=== PATIENT | male | born 1960 | race Caucasian/White ===

== ENCOUNTER → 2016-10-08 | Outpatient (CLI) | payer MEDICARE, OTHER ==
--- NOTE | 2016-10-08 16:02 | XR ---
EXAMINATION TYPE: XR chest 2V DATE OF EXAM: 10/08/2016 3:57 PM COMPARISON: 08/01/2016 INDICATION: Presurgical clearance TECHNIQUE: Frontal and lateral views of the chest are obtained. FINDINGS: The heart size is normal. The pulmonary vasculature is normal. The lungs are clear. Sternotomy wires are present from previous CABG anterior cervical fusion is dionisio dent. IMPRESSION: 1. No acute pulmonary process.
[2016-10-08 16:08] LABS: Basophils # (A) 0.1 k/uL (0-0.2); Basophils % (A) 1 %; CH 29.4; Eosinophils # (A) 0.3 k/uL (0-0.7); Eosinophils % (A) 4 %; HCT 40.8 % (39.0-53.0); HDW 2.63; HGB 12.6 gm/dL (13.0-17.5); Hypochromasia Slight; Luc # (Auto) 0.23; Luc % (Auto) 3; Lymphocytes # (A) 1.6 k/uL (1.0-4.8); Lymphocytes % (A) 22 %; MCH 29.3 pg (25.0-35.0); MCHC 30.8 g/dL (31.0-37.0); MCV 95.1 fL (80.0-100.0); Mean Platelet Volume 7.4; Monocytes # (A) 0.4 k/uL (0-1.0); Monocytes % (A) 5 %; Neutrophils # (A) 4.6 k/uL (1.3-7.7); Neutrophils % (A) 65 %; RBC 4.29 m/uL (4.30-5.90); RDW 15.8 % (11.5-15.5); WBC 7.1 k/uL (3.8-10.6); WBC (Perox) 7.13
[2016-10-08 16:28] LABS: Prothrombin Time 10.4 sec (9.0-12.0)
[2016-10-08 16:29] LABS: Anion Gap 11 mmol/L; Blood Urea Nitrogen 21 mg/dL (9-20); Calcium 9.1 mg/dL (8.4-10.2); Carbon Dioxide 29 mmol/L (22-30); Chloride 105 mmol/L (98-107); Glucose 111 mg/dL (74-99); Non-African American GFR(MDRD) >60 (>60 ml/min/1.73 sqM); Potassium 4.8 mmol/L (3.5-5.1); Sodium 145 mmol/L (137-145)
[2016-10-08 17:44] LABS: Appearance,Urine Clear (Clear); Bacteria,Urine Rare /hpf; Bilirubin,Urine Negative (Negative); Glucose,Urine (UA) Negative (Negative); Ketones,Urine Negative (Negative); Leukocyte Esterase,Urine Negative (Negative); Nitrite,Urine Negative (Negative); PH, Urine 5.5 (5.0-8.0); Particle Count 493; Protein,Urine Trace (Negative); RBC,Urine 2 /hpf (0-5); Specific Gravity,Urine 1.015 (1.001-1.035); Squamous Epithelial Cell,Urine <1 /hpf (0-4); UA Billing (MACRO vs. MICRO) MICRO; Urobilinogen,Urine <2.0 mg/dL (<2.0); WBC,Urine 1 /hpf (0-5)
== END | disposition home or self-care (01) ==
LOC: LABPAT 15:20
PROVIDERS: ATTEND Orthopaedic Surgery Orthopaedic Surgery of the Spine
DX: Z01.818 Encounter for other preprocedural examination (principal); Z01.812 Encounter for preprocedural laboratory examination
CPT/HCPCS: 71020; 80048; 81001; 85025; 85610; 85730; 87070

== ENCOUNTER 2016-10-30 09:57 | Inpatient (IN) | payer MEDICARE, OTHER ==
[2016-10-30] MEDS ORDERED: IPRATROPIUM-ALBUTEROL 3 ML NEB INHALATION STA (10:48)
[2016-10-30] MEDS ORDERED: ACETAMINOPHEN IV (For NPO) 1,000 MG in EMPTY BAG 1 BAG IVPB STA (10:49)
[2016-10-30] MEDS ORDERED: SODIUM CHLORIDE 0.9% 1,000 ML IV STA (10:51)
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
--- NOTE | 2016-10-30 11:10 | XR ---
EXAMINATION TYPE: XR chest 2V DATE OF EXAM: 10/30/2016 11:04 AM COMPARISON: Chest x-ray October 08, 2016. HISTORY: Fever and cough. TECHNIQUE: Frontal and lateral views of the chest are obtained. FINDINGS: There is chronic emphysematous change. Sternal wires and mediastinal clips are present. Th ere is no new suspicious focal air space opacity, pleural effusion, or pneumothorax seen. The cardia c silhouette size is felt upper limits of normal. Anterior fusion plate lower cervical spine is seen. Cholecystectomy clips are noted on lateral view. IMPRESSION: Chronic changes without acute pulmonary process. No significant change from prior.
[2016-10-30 12:38] LABS: Anisocytosis Slight; Appearance,Urine Clear (Clear); Basophils % (A) 1 %; Bilirubin,Urine Negative (Negative); CH 29.7; CHCM 31.3; Eosinophils # (A) 0.1 k/uL (0-0.7); Eosinophils % (A) 2 %; Glucose,Urine (UA) Negative (Negative); HCT 37.6 % (39.0-53.0); HGB 11.9 gm/dL (13.0-17.5); Hypochromasia Slight; Ketones,Urine Negative (Negative); Leukocyte Esterase,Urine Negative (Negative); Luc # (Auto) 0.13; Luc % (Auto) 4; Lymphocytes # (A) 0.6 k/uL (1.0-4.8); Lymphocytes % (A) 16 %; MCH 30.1 pg (25.0-35.0); MCHC 31.6 g/dL (31.0-37.0); MCV 95.3 fL (80.0-100.0); Mean Platelet Volume 7.1; Monocytes # (A) 0.3 k/uL (0-1.0); Monocytes % (A) 8 %; Neutrophils # (A) 2.5 k/uL (1.3-7.7); Neutrophils % (A) 70 %; Nitrite,Urine Negative (Negative); PH, Urine 5.5 (5.0-8.0); Protein,Urine Trace (Negative); RBC 3.94 m/uL (4.30-5.90); RDW 16.6 % (11.5-15.5); Specific Gravity,Urine 1.017 (1.001-1.035); UA Billing (MACRO vs. MICRO) CHEM; Urobilinogen,Urine <2.0 mg/dL (<2.0); WBC 3.6 k/uL (3.8-10.6); WBC (Perox) 3.62
[2016-10-30 12:51] LABS: ALT 71 U/L (21-72); AST 71 U/L (17-59); Alkaline Phosphatase 73 U/L (38-126); Anion Gap 10 mmol/L; Blood Urea Nitrogen 19 mg/dL (9-20); Calcium 8.7 mg/dL (8.4-10.2); Carbon Dioxide 25 mmol/L (22-30); Chloride 107 mmol/L (98-107); Glucose 104 mg/dL (74-99); Non-African American GFR(MDRD) >60 (>60 ml/min/1.73 sqM); Potassium 4.8 mmol/L (3.5-5.1); Sodium 142 mmol/L (137-145); Total Bilirubin 0.7 mg/dL (0.2-1.3); Total Protein 6.1 g/dL (6.3-8.2)
[2016-10-30 13:00] LABS: Creatine Kinase 428 U/L (55-170)
[2016-10-30 13:13] LABS: Troponin I <0.012 ng/mL (0.000-0.034)
[2016-10-30 13:20] LABS: Creatine Kinase MB 3.4 ng/mL (0.0-2.4)
[2016-10-30] MEDS ORDERED: IBUPROFEN IV 800 MG in SODIUM CHLORIDE 0.9% 250 ML IV ONE (13:28)
[2016-10-30] MEDS ORDERED: NALOXONE 0.4 MG/ML 1 ML VIAL IV PRN (15:05)
[2016-10-30] MEDS: SODIUM CHLORIDE 0.9% 1,000 ML IV SCH (17:54)
[2016-10-30] MEDS ORDERED: FUROSEMIDE 20 MG TAB PO PRN (18:09)
[2016-10-30] MEDS: POTASSIUM CHLORIDE ORAL LIQUID 40 MEQ/30 ML CUP PO SCH (18:53)
[2016-10-30] MEDS: HYDROcodone/APAP 10-325MG 1 EACH TAB PO PRN ×2 (18:53→22:08)
[2016-10-30] MEDS: LOSARTAN 50 MG TAB PO SCH (18:54)
[2016-10-30] MEDS: GABAPENTIN 400 MG CAP PO SCH ×2 (18:54→21:57)
[2016-10-30] MEDS: FERROUS SULFATE 325 MG TAB PO SCH (18:54)
[2016-10-30] MEDS: PANTOPRAZOLE 40 MG TABLET PO SCH (18:54)
[2016-10-30 19:49] LABS: Hemoglobin A1C 6.7 % (4.2-6.1)
[2016-10-30 21:08] LABS: Glucose,Whole Blood 135 mg/dL (75-99)
[2016-10-30] MEDS: LEVOTHYROXINE 50 MCG TAB PO SCH (21:57)
[2016-10-30] MEDS: ATORVASTATIN 40 MG TAB PO SCH (21:57)
[2016-10-30] MEDS: amLODIPine 5 MG TAB PO SCH (21:57)
[2016-10-30] MEDS: ASPIRIN 325 MG TAB PO SCH (21:57)
[2016-10-30] MEDS: metFORMIN 500 MG TAB PO SCH (21:57)
[2016-10-30] MEDS: INSULIN LISPRO (humaLOG) 300 UNIT/3 ML VIAL SQ SCH (22:05)
[2016-10-31] MEDS: SODIUM CHLORIDE 0.9% 1,000 ML IV SCH ×3 (01:02→22:04)
[2016-10-31] MEDS: HYDROcodone/APAP 10-325MG 1 EACH TAB PO PRN ×4 (05:33→22:04)
[2016-10-31] MEDS: IBUPROFEN 400 MG TAB PO PRN ×2 (05:33→17:46)
[2016-10-31 07:39] LABS: Glucose,Whole Blood 98 mg/dL (75-99)
[2016-10-31] MEDS: INSULIN LISPRO (humaLOG) 300 UNIT/3 ML VIAL SQ SCH ×4 (07:52→22:04)
[2016-10-31] MEDS: PANTOPRAZOLE 40 MG TABLET PO SCH ×2 (08:00→17:47)
[2016-10-31 08:51] LABS: ALT 84 U/L (21-72); AST 109 U/L (17-59); Alkaline Phosphatase 68 U/L (38-126); Anion Gap 11 mmol/L; Blood Urea Nitrogen 20 mg/dL (9-20); Calcium 8.4 mg/dL (8.4-10.2); Carbon Dioxide 22 mmol/L (22-30); Chloride 109 mmol/L (98-107); Glucose 95 mg/dL (74-99); Non-African American GFR(MDRD) >60 (>60 ml/min/1.73 sqM); Potassium 4.7 mmol/L (3.5-5.1); Sodium 142 mmol/L (137-145); Total Bilirubin 0.9 mg/dL (0.2-1.3); Total Protein 5.5 g/dL (6.3-8.2)
[2016-10-31 08:58] LABS: Anisocytosis Slight; CH 29.5; HCT 37.1 % (39.0-53.0); HDW 2.79; HGB 11.5 gm/dL (13.0-17.5); Hypochromasia Moderate; MCH 29.6 pg (25.0-35.0); MCV 95.4 fL (80.0-100.0); Mean Platelet Volume 7.3; RBC 3.88 m/uL (4.30-5.90); RDW 16.4 % (11.5-15.5); WBC 3.1 k/uL (3.8-10.6); WBC (Perox) 3.34
--- NOTE | 2016-10-31 09:04 | XR ---
EXAMINATION TYPE: XR chest 2V DATE OF EXAM: 10/31/2016 8:53 AM COMPARISON: Chest x-ray from yesterday. HISTORY: Cough and weakness, possible pneumonia. TECHNIQUE: Frontal and lateral views of the chest are obtained. FINDINGS: Sternal wires and mediastinal clips are redemonstrated. There is chronic parenchymal amador ge without suspicious new focal airspace opacity, pleural effusion, or pneumothorax seen bilaterally. Cardiac silhouette size is upper limits of normal on current study. Cholecystectomy clips are noted on lateral view. Anterior fusion plate lower cervical spine is redemonstrated. IMPRESSION: Chronic changes without suspicious acute infiltrate. No significant change from prior.
[2016-10-31] MEDS: POTASSIUM CHLORIDE ORAL LIQUID 40 MEQ/30 ML CUP PO SCH (09:53)
[2016-10-31] MEDS: ASPIRIN 325 MG TAB PO SCH (09:53)
[2016-10-31] MEDS: GABAPENTIN 400 MG CAP PO SCH ×4 (09:55→21:55)
[2016-10-31] MEDS: metFORMIN 500 MG TAB PO SCH ×2 (09:56→21:55)
[2016-10-31] MEDS: ALLOPURINOL 300 MG TAB PO SCH (09:56)
[2016-10-31] MEDS: LOSARTAN 50 MG TAB PO SCH ×2 (09:57→09:58)
[2016-10-31] MEDS ORDERED: AZITHROMYCIN 500 MG in SODIUM CHLORIDE 0.9% 250 ML IVPB STA (10:48)
[2016-10-31] MEDS ORDERED: PNEUMONIA PROTOCOL UTILIZED 1 EACH MISC PO PRN (10:48)
--- NOTE | 2016-10-31 11:01 | HP ---
DATE OF ADMISSION: CHIEF COMPLAINT: "Flu-like symptoms". PRESENT ILLNESS: This is a 56-year-old white male with primary complaint of fever. He said it was as high as 102 at home taken by his with thermometer. Mild cough for the last couple of days with myalgias, weakness. He said it was so difficult he felt like he could hardly get out of bed. Minimal productive cough without color and progressive weakness. Patient's allergies are to intolerance to PERCOCET. Medications include: 1. Zyloprim 300 daily. 2. Aspirin ( ) daily. 3. Levothroid 0.5 daily. 4. Prilosec 20 b.i.d. 5. Lasix 20 daily. 6. Gabapentin 800 four times a day. 7. Norvasc 5 mg a day. 8. [place] 10/325 one every 4 hours. 9. ( ) 20. 10. Glipizide 2.5 a.c. breakfast and supper. 11. Fentanyl 25 patch. 12. Losartan 100. 13. Ferrous sulfate. 14. Potassium. He has a long-standing history of type 2 diabetes, previous coronary artery disease with bypass graft in 2006, GERD, hyperlipidemia, hypertension, a myocardial infarction in 2005 with stent placement, severe osteoarthritis with ankylosing spondylitis, peripheral neuropathy, degenerative disc disease, previous pneumonia, has had pancreatitis in the past, pneumonia with a previous pneumothorax with effusion treated with a chest tube, history of MRSA infection treated with IV antibiotic on ( ). Past surgeries include bowel resection, carpal tunnel surgery, three-vessel bypass surgery, thumb surgery, I&D of abscesses, bilateral inguinal surgery, skin cancer removal from the back, circumcision, undescended testicle surgery, multiple cardiac stent surgeries. SOCIAL HISTORY: He is a former smoker, greater than 20 years. As a young adult, he used marijuana, cocaine to abuse. Does not drink alcohol. He does live with his . He is disabled. FAMILY HISTORY: Cancer, GERD ( ) hypertension, osteoarthritis. Father had cancer and type 1 diabetes mellitus. There is possibly pulmonary fibrosis. Uncle with brain aneurysm and lung cancer. REVIEW OF SYSTEMS: CARDIOPULMONARY: Cough with minimal shortness of breath. There is no chest pain, no orthopnea, no paroxysmal nocturnal dyspnea. GI: No hematemesis, melena, hematochezia. : Basically negative. NEUROMUSCULAR: Just the weakness in the arms. Decreased range of motion he says in his neck and his back. He is awaiting to have spinal surgery. INTEGUMENTARY: He has had a long-standing history of very, very dry skin and has had a history of MRSA in the past on superficial infection on his arm and hand. NEUROMUSCULAR: Just severe arthritis hands, legs, most joints in his body, cervical, dorsal spine and also lumbar spine. PHYSICAL EXAMINATION: He is an alert white male with temperature of 98.8, heart rates in the 80s, respiratory rate 18, and blood pressure is 153/76, O2 sat was 82 on room air. EYES: Pupils are equal, round, react to light and accommodation. ENT: Showed tympanic membranes and pharynx to be negative. Neck is supple with midline trachea. CHEST: Essentially clear to auscultation. HEART: Sinus rhythm. Chest does have a large incision from bypass. ABDOMEN: Soft has multiple scars from previous one from a previous bowel resection. 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 He has got very rough appearing skin bilaterally with arthritis throughout the hands and wrists. Decreased range of motion. Multiple scars in the lower extremities and +1 edema in the lower legs. Decreased range of motion in his knees and arms. Decreased range of motion of spine. Decreased range of motion cervical and lumbar spine. LAB WORK: WBC was 3.6, hemoglobin is 11.9. His platelet count is ( ). Sodium 142, potassium 4.8, chloride 107. Creatinine is 0.83, BUN is 19. He had a slightly elevated AST at 71, but normal alkaline phosphatase and ALT. Urinalysis was basically negative. Influenza A and B not detected. Chest x-ray showing no acute process. ASSESSMENT: 1. 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 2. Long-standing history of obviously type 2 diabetes. 3. Hypertension. 4. Previous coronary artery disease. 5. Hyperlipidemia. 6. Previous myocardial infarction. 7. Severe peripheral neuropathy. 8. Previous history of pancreatitis. 9. Gout. 10. Coronary artery disease. 11. Some previous end-diastolic heart failure. 12. Hyperlipidemia. 13. Previous pneumonia. 14. Degenerative disc disease of lumbar spine, dorsal spine and cervical spine. PLAN: We did cultures. IV fluids with supportive care. We are watching him accordingly. Please refer to my orders. Prognosis is guarded.
[2016-10-31] MEDS: FERROUS SULFATE 325 MG TAB PO SCH (11:30)
[2016-10-31 11:46] VITALS: BMI 30.7
[2016-10-31 11:48] LABS: Glucose,Whole Blood 92 mg/dL (75-99)
[2016-10-31 12:03] LABS: Add Differential Manual Differential
[2016-10-31 12:10] LABS: Band Neutrophils % 4.5 %; Manual Review Performed; Nucleated Red Blood Cells 0 /100 WBC (0-0); Total Cells Counted 200
--- NOTE | 2016-10-31 12:13 | P.PN ---
Progress Note - Text Patient is evaluated at bedside. Patient complains of productive cough and continued weakness. Patient states that he finished antibiotics for dental abscess last week. Patient continues with elevated temperature of 102 this morning. Denies toothache, difficulty swallowing, dysphagia, increased shortness of breath, chest pain, abdominal pain, dysuria, urgency, or hematuria. Repeat chest x-ray from this morning with chronic changes without suspicious acute infiltrate. WBC decreased to 3.1. Blood pressure 97/57. Upon exam, patient is awake and alert. Lungs sounds with coarse scattered rhonchi. Abdomen nontender and nondistended with positive bowel sounds. Patient will be started on Zithromax and Rocephin per pneumonia protocol for suspected pneumonia, community-acquired. We'll also get a consult for Dr. Hardin from infectious disease service. The above impression and plan have been discussed and directed by Dr. Romero. Jewell ANTHONY acting as scribe for Dr. Romero.
[2016-10-31 17:16] LABS: Glucose,Whole Blood 103 mg/dL (75-99)
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
[2016-10-31 21:21] LABS: Glucose,Whole Blood 65 mg/dL (75-99)
[2016-10-31 21:32] LABS: Glucose,Whole Blood 69 mg/dL (75-99)
[2016-10-31] MEDS: ATORVASTATIN 40 MG TAB PO SCH (21:55)
[2016-10-31] MEDS: LEVOTHYROXINE 50 MCG TAB PO SCH (21:55)
[2016-10-31] MEDS: amLODIPine 5 MG TAB PO SCH (21:55)
[2016-10-31 21:58] LABS: Glucose,Whole Blood 78 mg/dL (75-99)
[2016-11-01 00:24] LABS: Glucose,Whole Blood 118 mg/dL (75-99)
[2016-11-01] MEDS: metFORMIN 500 MG TAB PO SCH ×3 (00:28→21:12)
[2016-11-01] MEDS: IBUPROFEN 400 MG TAB PO PRN ×2 (00:31→15:07)
[2016-11-01] MEDS: SODIUM CHLORIDE 0.9% 1,000 ML IV SCH ×4 (06:35→23:48)
[2016-11-01 07:37] LABS: Glucose,Whole Blood 85 mg/dL (75-99)
[2016-11-01] MEDS: INSULIN LISPRO (humaLOG) 300 UNIT/3 ML VIAL SQ SCH ×4 (08:09→21:11)
[2016-11-01] MEDS: GABAPENTIN 400 MG CAP PO SCH ×4 (08:13→21:11)
[2016-11-01] MEDS: LOSARTAN 50 MG TAB PO SCH (08:13)
[2016-11-01] MEDS: PANTOPRAZOLE 40 MG TABLET PO SCH ×2 (08:13→17:53)
[2016-11-01] MEDS: ALLOPURINOL 300 MG TAB PO SCH (08:13)
[2016-11-01] MEDS: HYDROcodone/APAP 10-325MG 1 EACH TAB PO PRN ×2 (08:14→16:31)
[2016-11-01] MEDS: POTASSIUM CHLORIDE ORAL LIQUID 40 MEQ/30 ML CUP PO SCH (08:15)
[2016-11-01 09:06] LABS: ALT 100 U/L (21-72); AST 168 U/L (17-59); Alkaline Phosphatase 65 U/L (38-126); Anion Gap 9 mmol/L; Blood Urea Nitrogen 20 mg/dL (9-20); Calcium 8.2 mg/dL (8.4-10.2); Carbon Dioxide 21 mmol/L (22-30); Chloride 112 mmol/L (98-107); Glucose 89 mg/dL (74-99); Non-African American GFR(MDRD) >60 (>60 ml/min/1.73 sqM); Sodium 142 mmol/L (137-145); Total Bilirubin 0.7 mg/dL (0.2-1.3); Total Protein 5.6 g/dL (6.3-8.2)
[2016-11-01 11:46] LABS: Glucose,Whole Blood 83 mg/dL (75-99)
--- NOTE | 2016-11-01 12:21 | P.PN ---
Subjective Principal diagnosis: Fever Patient is a 56-year-old white male admitted with fevers and generalized weakness associated with some cough and congestion. This morning, patient continues to complain of feeling weak. When asked a question, patient takes a long time to answer and is very nonspecific in his answers. Patient reports that he ate approximately 50% of his breakfast. Patient denies nausea, vomiting , shortness of breath, or chest pain. Patient states he always has some abdominal pain but it's chronic. Denies constipation or diarrhea. Patient continues with fevers with T-max the last 24 hours 100.7 at 11 PM last night. Urine culture is negative. Preliminary blood cultures after 24 hours negative. Sputum culture pending. Patient continues on Zithromax and ceftriaxone for possible pneumonia. Dr. Hardin from infectious disease services following patient, recommendations noted. Objective - Vital Signs Vital signs: Vital Signs Temp 99.8 F H 11/01/16 07:00 Pulse 81 11/01/16 07:00 Resp 20 11/01/16 07:00 BP 106/63 11/01/16 07:00 Pulse Ox 91 L 11/01/16 07:00 Intake & Output 10/31/16 11/01/16 11/01/16 18:59 06:59 18:59 Intake Total 120 920 Output Total 350 Balance -230 920 Weight 86.183 kg Intake: Oral 120 920 Output: Urine 350 Other: Voiding Method Urinal # Voids 2 # Bowel Movements 1 1 - Exam GENERAL: Pt awake and alert, appears fatigued, in no acute distress. HEAD: Atraumatic, normocephalic. EYES: Pupils equal and round. Sclera anicteric, conjunctiva are normal. ENT:Moist mucous membranes. NECK:Supple without lymphadenopathy or JVD. LUNGS: Breath sounds diminished to auscultation bilaterally. Nonproductive cough. HEART: Heart S1, S2, no S3 or S4. Irregularly irregular rate and rhythm. No murmurs, rubs or gallops. ABDOMEN: Soft, obese, nontender, nondistended, normoactive bowel sounds. No guarding, no rebound. EXTREMITIES: 2+ peripheral pulses. No edema. No calf tenderness. NEUROLOGICAL: Pt oriented x 3. No focal deficits. Strength and sensation grossly intact. PSYCH: Despondent. SKIN: Warm, dry, intact. Normal turgor. No rashes or lesions. - Labs CBC & Chem 7: 10/31/16 08:08 11/01/16 07:51 Labs: Abnormal Lab Results - Last 24 Hours (Table) 10/31/16 10/31/16 10/31/16 Range/Units 08:08 17:14 21:02 WBC 3.1 L (3.8-10.6) k/uL RBC 3.88 L (4.30-5.90) m/uL Hgb 11.5 L (13.0-17.5) gm/dL Hct 37.1 L (39.0-53.0) % RDW 16.4 H (11.5-15.5) % Plt Count 137 L (150-450) k/uL Lymphocytes # (Manual) 0.5 L (1.0-4.8) k/uL Chloride (98-107) mmol/L Carbon Dioxide (22-30) mmol/L POC Glucose (mg/dL) 103 H 65 L (75-99) mg/dL Calcium (8.4-10.2) mg/dL AST (17-59) U/L ALT (21-72) U/L Total Protein (6.3-8.2) g/dL Albumin (3.5-5.0) g/dL 10/31/16 11/01/16 11/01/16 Range/Units 21:22 00:18 07:51 WBC (3.8-10.6) k/uL RBC (4.30-5.90) m/uL Hgb (13.0-17.5) gm/dL Hct (39.0-53.0) % RDW (11.5-15.5) % Plt Count (150-450) k/uL Lymphocytes # (Manual) (1.0-4.8) k/uL Chloride 112 H (98-107) mmol/L Carbon Dioxide 21 L (22-30) mmol/L POC Glucose (mg/dL) 69 L 118 H (75-99) mg/dL Calcium 8.2 L (8.4-10.2) mg/dL AST 168 H (17-59) U/L ALT 100 H (21-72) U/L Total Protein 5.6 L (6.3-8.2) g/dL Albumin 2.6 L (3.5-5.0) g/dL Assessment and Plan Plan: Impression: 1. Sepsis suspect secondary to viral illness. 2. Cough and congestion, present on admission, chest x-ray with chronic changes without suspicious acute infiltrate. 3. Hyperchloremic metabolic acidosis suspect secondary to IV fluids. 4. Elevated AST and ALT, suspect secondary to possible congestion. 5. Coronary artery disease with history of coronary artery bypass grafting in 2006. 6. Chronic diastolic heart failure. 7. Type 2 diabetes mellitus, controlled. 8. GERD. 9. Hyperlipidemia. 10. Hypertension. 11. History of myocardial infarction in 2005 with stent placement. 12. Severe peripheral neuropathy. 13. Severe peripheral neuropathy suspect secondary to diabetes and chronic back pain. 14. Degenerative disc disease of lumbar spine, dorsal spine and cervical spine. scoliosis. 15. History of pneumonia. 16. History of recent pancreatitis with 1.1 cm on pancreatic tail. Amylase and lipase within normal limits. 17. History of gout. Plan: Continue to monitor patient. Continue current medications. Current IV fluids to 75 mL an hour. Continue antibiotics per infectious disease recommendations. Continue supportive treatment and pain management. Continue GI and DVT prophylaxis. Continue to follow cultures. Repeat CBC, CMP in am. The above impression and plan have been discussed and directed by Dr. Romero. Jewell ANTHONY acting as scribe for Dr. Romero.
[2016-11-01 12:51] LABS: Anisocytosis Slight; Aty Lym Flag Moderate; CH 29.1; CHCM 29.7; HCT 36.9 % (39.0-53.0); HDW 2.68; HGB 11.4 gm/dL (13.0-17.5); Hypochromasia Marked; MCH 30.5 pg (25.0-35.0); MCV 98.4 fL (80.0-100.0); Macrocytosis Slight; Mean Platelet Volume 7.5; RBC 3.75 m/uL (4.30-5.90); RDW 16.4 % (11.5-15.5); WBC 2.6 k/uL (3.8-10.6); WBC (Perox) 2.55
[2016-11-01 13:17] LABS: Add Differential Manual Differential
[2016-11-01 13:19] LABS: Manual Review Performed; Nucleated Red Blood Cells 0 /100 WBC (0-0); Total Cells Counted 100
[2016-11-01] MEDS: AZITHROMYCIN 500 MG TAB PO SCH (13:27)
[2016-11-01] MEDS: FERROUS SULFATE 325 MG TAB PO SCH (13:27)
[2016-11-01 17:00] LABS: Glucose,Whole Blood 87 mg/dL (75-99)
[2016-11-01 17:19] LABS: INR 1.3 (<1.1); Prothrombin Time 12.9 sec (9.0-12.0)
[2016-11-01 20:43] LABS: Glucose,Whole Blood 75 mg/dL (75-99)
[2016-11-01] MEDS: ATORVASTATIN 40 MG TAB PO SCH (21:11)
[2016-11-01] MEDS: amLODIPine 5 MG TAB PO SCH (21:11)
[2016-11-01] MEDS: ASPIRIN 325 MG TAB PO SCH (21:11)
[2016-11-01] MEDS: LEVOTHYROXINE 50 MCG TAB PO SCH (21:12)
--- NOTE | 2016-11-01 22:19 | P.PN ---
Subjective Principal diagnosis: Fever and malaise 56-year-old male well-known to the infectious disease service since the emergency center feeling very poorly for the last few days. He developed a fever to 102. Was associated with chills without connor rigors. He was having some cough and chest congestion. He was having a significant body aches and significant malaise. He was brought to the emergency center where flu testing was negative. However he had evidence of relative leukopenia and sepsis. He subsequently was admitted and with sepsis the infectious diseases consultation was requested. 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 He developed a extensive infection that required surgical care. He had a protracted staph aureus bacteremia required several months of antibiotic therapy for improvement. The right wrist area finally improved and he's had a modestly good recovery. He does have significant underlying immunocompromise due to his diabetes mellitus as well as his arthritis and ankylosing spondylitis. Still is having ongoing fever Objective - Vital Signs Vital signs: Vital Signs Temp 103.5 F H 11/01/16 15:00 Pulse 95 11/01/16 15:00 Resp 20 11/01/16 15:00 BP 141/79 11/01/16 15:00 Pulse Ox 92 L 11/01/16 15:00 - Exam 54-year-old male who has complaints complains of generalized fatigue and malaise and body aches HEENT: Anicteric conjunctiva are pink and moist nasal mucosa grossly intact without significant lesions, there is no thrush. Mucosa dry Neck: The neck is supple without significant lymphadenopathy or thyromegaly. Lungs: Good bilateral air entry without significant crackles or wheezes are heard There is no significant bronchial sounds. There is no egophony or dullness. Heart: Irregular with an audible S1 and S2 no S3 soft S4 no murmur click or rub. Abdomen: Positive bowel sounds soft and nontender without palpable masses or organomegaly. There was no guarding or rebound. Extremities: The left upper extremity shows no acute difficulties, IV site is present the right wrist reveals evidence of the prior surgical intervention. The extensive prior wound has healed. No evidence of any erythema or tenderness at that site. There is no epitrochlear or axillary lymphadenopathy. No other lymphadenopathy is noted. Neuro: Patient sleepy but arousable - Labs CBC & Chem 7: 11/01/16 10:18 11/01/16 07:51 Labs: Laboratory Results WBC 2.6 k/uL (3.8-10.6) L 11/01/16 10:18 RBC 3.75 m/uL (4.30-5.90) L 11/01/16 10:18 Hgb 11.4 gm/dL (13.0-17.5) L 11/01/16 10:18 Hct 36.9 % (39.0-53.0) L 11/01/16 10:18 MCV 98.4 fL (80.0-100.0) 11/01/16 10:18 MCH 30.5 pg (25.0-35.0) 11/01/16 10:18 MCHC 31.0 g/dL (31.0-37.0) 11/01/16 10:18 RDW 16.4 % (11.5-15.5) H 11/01/16 10:18 Plt Count 96 k/uL (150-450) L 11/01/16 10:18 Neutrophils % 70 % 10/30/16 11:00 Neutrophils % (Manual) 53.0 % 11/01/16 10:18 Band Neutrophils % 8.0 % 11/01/16 10:18 Lymphocytes % 16 % 10/30/16 11:00 Lymphocytes % (Manual) 27.0 % 11/01/16 10:18 Monocytes % 8 % 10/30/16 11:00 Monocytes % (Manual) 12.0 % 11/01/16 10:18 Eosinophils % 2 % 10/30/16 11:00 Eosinophils % (Manual) 1.0 % 10/31/16 08:08 Basophils % 1 % 10/30/16 11:00 Basophils % (Manual) 0.5 % 10/31/16 08:08 Neutrophils # 2.5 k/uL (1.3-7.7) 10/30/16 11:00 Neutrophils # (Manual) 1.6 k/uL (1.3-7.7) 11/01/16 10:18 Lymphocytes # 0.6 k/uL (1.0-4.8) L 10/30/16 11:00 Lymphocytes # (Manual) 0.7 k/uL (1.0-4.8) L 11/01/16 10:18 Monocytes # 0.3 k/uL (0-1.0) 10/30/16 11:00 Monocytes # (Manual) 0.3 k/uL (0-1.0) 11/01/16 10:18 Eosinophils # 0.1 k/uL (0-0.7) 10/30/16 11:00 Eosinophils # (Manual) 0.0 k/uL (0-0.7) 10/31/16 08:08 Basophils # 0.0 k/uL (0-0.2) 10/30/16 11:00 Basophils # (Manual) 0.0 k/uL (0-0.2) 10/31/16 08:08 Nucleated RBCs 0 /100 WBC (0-0) 11/01/16 10:18 Manual Slide Review Performed 11/01/16 10:18 Hypochromasia Marked 11/01/16 10:18 Poikilocytosis (manual Present 11/01/16 10:18 Anisocytosis Slight 11/01/16 10:18 Macrocytosis Slight 11/01/16 10:18 PT 12.9 sec (9.0-12.0) H 11/01/16 16:51 INR 1.3 (<1.1) 11/01/16 16:51 Sodium 142 mmol/L (137-145) 11/01/16 07:51 Potassium 5.0 mmol/L (3.5-5.1) 11/01/16 07:51 Chloride 112 mmol/L (98-107) H 11/01/16 07:51 Carbon Dioxide 21 mmol/L (22-30) L 11/01/16 07:51 Anion Gap 9 mmol/L 11/01/16 07:51 BUN 20 mg/dL (9-20) 11/01/16 07:51 Creatinine 1.00 mg/dL (0.66-1.25) 11/01/16 07:51 Est GFR (MDRD) Af Amer >60 (>60 ml/min/1.73 sqM) 11/01/16 07:51 Est GFR (MDRD) Non-Af >60 (>60 ml/min/1.73 sqM) 11/01/16 07:51 Glucose 89 mg/dL (74-99) 11/01/16 07:51 POC Glucose (mg/dL) 75 mg/dL (75-99) 11/01/16 20:26 POC Glu Duplicator Punch Set Up Operator ID Liss Parker 11/01/16 20:[address] Glu mg/dL 146 mg/dL 10/30/16 11:00 Hemoglobin A1c 6.7 % (4.2-6.1) H 10/30/16 11:00 Plasma Lactic Acid Freddy 0.7 mmol/L (0.7-2.0) 11/01/16 16:51 Calcium 8.2 mg/dL (8.4-10.2) L 11/01/16 07:51 Total Bilirubin 0.7 mg/dL (0.2-1.3) 11/01/16 07:51 AST 168 U/L (17-59) H 11/01/16 07:51 ALT 100 U/L (21-72) H 11/01/16 07:51 Alkaline Phosphatase 65 U/L (38-126) 11/01/16 07:51 Total Creatine Kinase 428 U/L (55-170) H 10/30/16 11:00 CK-MB (CK-2) 3.4 ng/mL (0.0-2.4) H* 10/30/16 11:00 CK-MB (CK-2) Rel Index 0.8 10/30/16 11:00 Troponin I <0.012 ng/mL (0.000-0.034) 10/30/16 11:00 NT-Pro-B Natriuret Pep 865 pg/mL 10/30/16 11:00 Total Protein 5.6 g/dL (6.3-8.2) L 11/01/16 07:51 Albumin 2.6 g/dL (3.5-5.0) L 11/01/16 07:51 Urine Color Yellow 10/30/16 11:00 Urine Appearance Clear (Clear) 10/30/16 11:00 Urine pH 5.5 (5.0-8.0) 10/30/16 11:00 Ur Specific [place] 1.017 (1.001-1.035) 10/30/16 11:00 Urine Protein Trace (Negative) H 10/30/16 11:00 Urine Glucose (UA) Negative (Negative) 10/30/16 11:00 Urine Ketones Negative (Negative) 10/30/16 11:00 Urine Blood Negative (Negative) 10/30/16 11:00 Urine Nitrate Negative (Negative) 10/30/16 11:00 Urine Bilirubin Negative (Negative) 10/30/16 11:00 Urine Urobilinogen <2.0 mg/dL (<2.0) 10/30/16 11:00 Ur Leukocyte Esterase Negative (Negative) 10/30/16 11:00 Influenza Type A RNA Not Detected (Not Detectd) 10/30/16 10:54 Influenza Type B (PCR) Not Detected (Not Detectd) 10/30/16 10:54 Microbiology 10/30/16 11:00 Blood Blood Culture - Preliminary No Growth after 48 hours 10/30/16 11:00 Urine,Clean Catch Urine Culture - Final Assessment and Plan (1) Fever Narrative/Plan: 56-year-old male with a long-standing history of diabetes mellitus who has had multiple recent complications. In the fall he had a bout of diabetic ketoacidosis and pancreatitis. He is now admitted relatively well. Hemoglobin A1c is now better controlled. He does have a history of the extensive abscess to the right wrist with the persistent bacteremia. This is from a few years ago and has had complete resolution of this extensive infection with MRSA. Now presenting with what appears to be a flulike illness. He has been initiated antibiotic therapy with Rocephin and azithromycin with concerns to pneumonia. Chest x-ray is negative but he is being hydrated and follow-up studies are requested. Influenza A and B testing by PCR was negative The patient does have a relative leukopenia which may point to a viral infection also. The patient's brother is present in relates that the and daughter who are living in the house with him are not ill. Cultures are in progress and his response to therapy will help determine the next step. Continue with aggressive glucose control. Status: Acute (2) Leukopenia Status: Acute (3) Type II diabetes mellitus, well controlled Status: Acute
[2016-11-02] MEDS: IBUPROFEN 400 MG TAB PO PRN ×2 (05:47→16:55)
[2016-11-02] MEDS: ACETAMINOPHEN TAB 325 MG TAB PO PRN ×2 (05:47→15:55)
[2016-11-02 07:55] LABS: Glucose,Whole Blood 157 mg/dL (75-99)
[2016-11-02 08:11] LABS: Anisocytosis Slight; Aty Lym Flag Slight; CH 28.9; CHCM 29.2; HGB 11.4 gm/dL (13.0-17.5); Hypochromasia Marked; MCH 29.8 pg (25.0-35.0); MCHC 29.9 g/dL (31.0-37.0); MCV 99.7 fL (80.0-100.0); Macrocytosis Slight; Mean Platelet Volume 7.7; RBC 3.81 m/uL (4.30-5.90); RDW 16.4 % (11.5-15.5); WBC 2.2 k/uL (3.8-10.6); WBC (Perox) 2.44
[2016-11-02] MEDS: D5-0.9% NACL WITH KCL 20 MEQ/L 1,000 ML IV SCH ×2 (08:21→22:28)
[2016-11-02] MEDS: PANTOPRAZOLE 40 MG TABLET PO SCH ×2 (08:22→17:47)
[2016-11-02] MEDS: AZITHROMYCIN 500 MG TAB PO SCH (08:23)
[2016-11-02] MEDS: ALLOPURINOL 300 MG TAB PO SCH (08:23)
[2016-11-02] MEDS: GABAPENTIN 400 MG CAP PO SCH ×4 (08:23→21:25)
[2016-11-02] MEDS: LOSARTAN 50 MG TAB PO SCH (08:25)
[2016-11-02] MEDS: POTASSIUM CHLORIDE ORAL LIQUID 40 MEQ/30 ML CUP PO SCH (08:25)
[2016-11-02] MEDS: metFORMIN 500 MG TAB PO SCH ×2 (08:26→21:25)
[2016-11-02] MEDS: INSULIN LISPRO (humaLOG) 300 UNIT/3 ML VIAL SQ SCH ×4 (08:27→21:26)
[2016-11-02 08:36] LABS: ALT 115 U/L (21-72); AST 241 U/L (17-59); Alkaline Phosphatase 106 U/L (38-126); Amylase 53 U/L (30-110); Anion Gap 9 mmol/L; Blood Urea Nitrogen 22 mg/dL (9-20); Calcium 7.9 mg/dL (8.4-10.2); Carbon Dioxide 20 mmol/L (22-30); Chloride 111 mmol/L (98-107); Glucose 138 mg/dL (74-99); Non-African American GFR(MDRD) >60 (>60 ml/min/1.73 sqM); Potassium 4.7 mmol/L (3.5-5.1); Sodium 140 mmol/L (137-145); Total Bilirubin 0.9 mg/dL (0.2-1.3); Total Protein 5.1 g/dL (6.3-8.2)
--- NOTE | 2016-11-02 09:24 | PN ---
56 -year-old white male that came in with unexplained fever. At this point, this morning he actually had 104 temp. At this time, he just feels blah. No pain other than just generalized myalgia. Very weak but he definitely has lost his appetite. At this time, he blood pressure is 125/90. Heart rate 80. Respiratory rate 20. Temperature was 104. O2 sat 96 on 2 L. HEENT: Showed just a dry mouth. NECK: Supple with midline trachea. CHEST: Essentially clear to auscultation. HEART: Sinus rhythm. ABDOMEN: Soft, nontender with no organomegaly. Minimal swelling in the lower legs and no open skin lesions. His laboratory this last p.m. had WBC 2.6 with no true shift to the left. He had an elevated AST of 168 and an elevated ALT of 100. His sugars have actually been running fairly low in the 60s and 70s even though it is documented they are 80s and 70s. He is not eating or drinking much. Microbiology 48 hours negative blood culture. Urine culture is negative. ASSESSMENT: 1. 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 2. He has some mild dehydration with poor nutrition at this point. 3. Leukopenia Type 2 diabetes which has been well controlled. 4. Coronary artery disease which is stable. 5. Previous pancreatitis. PLAN: At this time with influenza A and B being negative, I still think this is probably viral. Due to his appetite being low, we placed him on D5 0.9 with 20 KCL at 75 an hour and discontinued his glipizide, put him on insulin to scale. We will repeat his chem-17 and we will add Amylase and lipase today. Please refer to my orders.
[2016-11-02 10:48] LABS: Add Differential Manual Differential
[2016-11-02 10:56] LABS: Manual Review Performed; Nucleated Red Blood Cells 0 /100 WBC (0-0); Total Cells Counted 100
[2016-11-02 12:10] LABS: Glucose,Whole Blood 135 mg/dL (75-99)
[2016-11-02] MEDS: FERROUS SULFATE 325 MG TAB PO SCH (12:11)
--- NOTE | 2016-11-02 14:55 | P.PN ---
Subjective Principal diagnosis: Fever and malaise 56-year-old male well-known to the infectious disease service since the emergency center feeling very poorly for the last few days. He developed a fever to 102. Was associated with chills without connor rigors. He was having some cough and chest congestion. He was having a significant body aches and significant malaise. He was brought to the emergency center where flu testing was negative. However he had evidence of relative leukopenia and sepsis. He subsequently was admitted and with sepsis the infectious diseases consultation was requested. 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 He developed a extensive infection that required surgical care. He had a protracted staph aureus bacteremia required several months of antibiotic therapy for improvement. The right wrist area finally improved and he's had a modestly good recovery. He does have significant underlying immunocompromise due to his diabetes mellitus as well as his arthritis and ankylosing spondylitis. Significant fever overnight. Up to 104. Is feeling slightly better today. But overall still feels quite ill. Has some mild sinus congestion without significant cough or sputum production. He generalized body aches are slightly improved. Objective - Vital Signs Vital signs: Vital Signs Temp 100.6 F H 11/02/16 07:00 Pulse 83 11/02/16 07:00 Resp 20 11/02/16 07:00 BP 110/55 11/02/16 07:00 Pulse Ox 95 11/02/16 07:00 Intake & Output 11/01/16 11/02/16 11/02/16 18:59 06:59 18:59 Intake Total 300 Balance 300 Weight 97.069 kg Intake: Oral 300 Other: # Voids 2 - Exam 54-year-old male who has complaints complains of generalized fatigue and malaise and body aches HEENT: Anicteric conjunctiva are pink and moist nasal mucosa grossly intact without significant lesions, there is no thrush. Mucosa dry Neck: The neck is supple without significant lymphadenopathy or thyromegaly. Lungs: Good bilateral air entry without significant crackles or wheezes are heard There is no significant bronchial sounds. There is no egophony or dullness. Heart: Irregular with an audible S1 and S2 no S3 soft S4 no murmur click or rub. Abdomen: Positive bowel sounds soft and nontender without palpable masses or organomegaly. There was no guarding or rebound. Extremities: The left upper extremity shows no acute difficulties, IV site is present the right wrist reveals evidence of the prior surgical intervention. The extensive prior wound has healed. No evidence of any erythema or tenderness at that site. There is no epitrochlear or axillary lymphadenopathy. No other lymphadenopathy is noted. Neuro: Patient is much more awake today. is close to his baseline mental status - Labs CBC & Chem 7: 11/02/16 07:41 11/02/16 07:41 Labs: Abnormal Lab Results - Last 24 Hours (Table) 11/02/16 11/02/16 11/02/16 Range/Units 07:41 07:41 07:54 WBC 2.2 L (3.8-10.6) k/uL RBC 3.81 L (4.30-5.90) m/uL Hgb 11.4 L (13.0-17.5) gm/dL Hct 38.0 L (39.0-53.0) % MCHC 29.9 L (31.0-37.0) g/dL RDW 16.4 H (11.5-15.5) % Plt Count 70 L (150-450) k/uL Lymphocytes # (Manual) 0.2 L (1.0-4.8) k/uL Chloride 111 H (98-107) mmol/L Carbon Dioxide 20 L (22-30) mmol/L BUN 22 H (9-20) mg/dL Glucose 138 H (74-99) mg/dL POC Glucose (mg/dL) 157 H (75-99) mg/dL Calcium 7.9 L (8.4-10.2) mg/dL AST 241 H (17-59) U/L ALT 115 H (21-72) U/L Total Protein 5.1 L (6.3-8.2) g/dL Albumin 2.2 L (3.5-5.0) g/dL 11/02/16 Range/Units 12:08 WBC (3.8-10.6) k/uL RBC (4.30-5.90) m/uL Hgb (13.0-17.5) gm/dL Hct (39.0-53.0) % MCHC (31.0-37.0) g/dL RDW (11.5-15.5) % Plt Count (150-450) k/uL Lymphocytes # (Manual) (1.0-4.8) k/uL Chloride (98-107) mmol/L Carbon Dioxide (22-30) mmol/L BUN (9-20) mg/dL Glucose (74-99) mg/dL POC Glucose (mg/dL) 135 H (75-99) mg/dL Calcium (8.4-10.2) mg/dL AST (17-59) U/L ALT (21-72) U/L Total Protein (6.3-8.2) g/dL Albumin (3.5-5.0) g/dL Laboratory Results WBC 2.2 k/uL (3.8-10.6) L 11/02/16 07:41 RBC 3.81 m/uL (4.30-5.90) L 11/02/16 07:41 Hgb 11.4 gm/dL (13.0-17.5) L 11/02/16 07:41 Hct 38.0 % (39.0-53.0) L 11/02/16 07:41 MCV 99.7 fL (80.0-100.0) 11/02/16 07:41 MCH 29.8 pg (25.0-35.0) 11/02/16 07:41 MCHC 29.9 g/dL (31.0-37.0) L 11/02/16 07:41 RDW 16.4 % (11.5-15.5) H 11/02/16 07:41 Plt Count 70 k/uL (150-450) L 11/02/16 07:41 Neutrophils % 70 % 10/30/16 11:00 Neutrophils % (Manual) 71.0 % 11/02/16 07:41 Band Neutrophils % 14.0 % 11/02/16 07:41 Lymphocytes % 16 % 10/30/16 11:00 Lymphocytes % (Manual) 9.0 % 11/02/16 07:41 Monocytes % 8 % 10/30/16 11:00 Monocytes % (Manual) 6.0 % 11/02/16 07:41 Eosinophils % 2 % 10/30/16 11:00 Eosinophils % (Manual) 1.0 % 10/31/16 08:08 Basophils % 1 % 10/30/16 11:00 Basophils % (Manual) 0.5 % 10/31/16 08:08 Neutrophils # 2.5 k/uL (1.3-7.7) 10/30/16 11:00 Neutrophils # (Manual) 1.9 k/uL (1.3-7.7) 11/02/16 07:41 Lymphocytes # 0.6 k/uL (1.0-4.8) L 10/30/16 11:00 Lymphocytes # (Manual) 0.2 k/uL (1.0-4.8) L 11/02/16 07:41 Monocytes # 0.3 k/uL (0-1.0) 10/30/16 11:00 Monocytes # (Manual) 0.1 k/uL (0-1.0) 11/02/16 07:41 Eosinophils # 0.1 k/uL (0-0.7) 10/30/16 11:00 Eosinophils # (Manual) 0.0 k/uL (0-0.7) 10/31/16 08:08 Basophils # 0.0 k/uL (0-0.2) 10/30/16 11:00 Basophils # (Manual) 0.0 k/uL (0-0.2) 10/31/16 08:08 Nucleated RBCs 0 /100 WBC (0-0) 11/02/16 07:41 Manual Slide Review Performed 11/02/16 07:41 Hypochromasia Marked 11/02/16 07:41 Poikilocytosis (manual Present 11/02/16 07:41 Anisocytosis Slight 11/02/16 07:41 Macrocytosis Slight 11/02/16 07:41 PT 12.9 sec (9.0-12.0) H 11/01/16 16:51 INR 1.3 (<1.1) 11/01/16 16:51 Sodium 140 mmol/L (137-145) 11/02/16 07:41 Potassium 4.7 mmol/L (3.5-5.1) 11/02/16 07:41 Chloride 111 mmol/L (98-107) H 11/02/16 07:41 Carbon Dioxide 20 mmol/L (22-30) L 11/02/16 07:41 Anion Gap 9 mmol/L 11/02/16 07:41 BUN 22 mg/dL (9-20) H 11/02/16 07:41 Creatinine 1.05 mg/dL (0.66-1.25) 11/02/16 07:41 Est GFR (MDRD) Af Amer >60 (>60 ml/min/1.73 sqM) 11/02/16 07:41 Est GFR (MDRD) Non-Af >60 (>60 ml/min/1.73 sqM) 11/02/16 07:41 Glucose 138 mg/dL (74-99) H 11/02/16 07:41 POC Glucose (mg/dL) 135 mg/dL (75-99) H 11/02/16 12:08 POC Glu Digital Service Engineer ID Marga Munson 11/02/16 12:[address] Glu mg/dL 146 mg/dL 10/30/16 11:00 Hemoglobin A1c 6.7 % (4.2-6.1) H 10/30/16 11:00 Plasma Lactic Acid Freddy 0.7 mmol/L (0.7-2.0) 11/01/16 16:51 Calcium 7.9 mg/dL (8.4-10.2) L 11/02/16 07:41 Total Bilirubin 0.9 mg/dL (0.2-1.3) 11/02/16 07:41 AST 241 U/L (17-59) H 11/02/16 07:41 ALT 115 U/L (21-72) H 11/02/16 07:41 Alkaline Phosphatase 106 U/L (38-126) 11/02/16 07:41 Total Creatine Kinase 428 U/L (55-170) H 10/30/16 11:00 CK-MB (CK-2) 3.4 ng/mL (0.0-2.4) H* 10/30/16 11:00 CK-MB (CK-2) Rel Index 0.8 10/30/16 11:00 Troponin I <0.012 ng/mL (0.000-0.034) 10/30/16 11:00 NT-Pro-B Natriuret Pep 865 pg/mL 10/30/16 11:00 Total Protein 5.1 g/dL (6.3-8.2) L 11/02/16 07:41 Albumin 2.2 g/dL (3.5-5.0) L 11/02/16 07:41 Amylase 53 U/L (30-110) 11/02/16 07:41 Lipase 239 U/L (23-300) 11/02/16 07:41 Urine Color Yellow 10/30/16 11:00 Urine Appearance Clear (Clear) 10/30/16 11:00 Urine pH 5.5 (5.0-8.0) 10/30/16 11:00 Ur Specific [place] 1.017 (1.001-1.035) 10/30/16 11:00 Urine Protein Trace (Negative) H 10/30/16 11:00 Urine Glucose (UA) Negative (Negative) 10/30/16 11:00 Urine Ketones Negative (Negative) 10/30/16 11:00 Urine Blood Negative (Negative) 10/30/16 11:00 Urine Nitrate Negative (Negative) 10/30/16 11:00 Urine Bilirubin Negative (Negative) 10/30/16 11:00 Urine Urobilinogen <2.0 mg/dL (<2.0) 10/30/16 11:00 Ur Leukocyte Esterase Negative (Negative) 10/30/16 11:00 Influenza Type A RNA Not Detected (Not Detectd) 10/30/16 10:54 Influenza Type B (PCR) Not Detected (Not Detectd) 10/30/16 10:54 Microbiology 10/30/16 11:00 Blood Blood Culture - Preliminary No Growth after 72 hours 10/30/16 11:00 Urine,Clean Catch Urine Culture - Final Chest x-ray failed to reveal evidence of any acute new infiltrate. Assessment and Plan (1) Fever Narrative/Plan: 56-year-old male with a long-standing history of diabetes mellitus who has had multiple recent complications. In the fall he had a bout of diabetic ketoacidosis and pancreatitis. He is now admitted relatively well. Hemoglobin A1c is now better controlled. He does have a history of the extensive abscess to the right wrist with the persistent bacteremia. This is from a few years ago and has had complete resolution of this extensive infection with MRSA. Now presenting with what appears to be a flulike illness. He has been initiated antibiotic therapy with Rocephin and azithromycin with concerns to pneumonia. Chest x-ray is negative but he is being hydrated and follow-up studies are requested. Influenza A and B testing by PCR was negative Patient continues to have difficulties with pancytopenia. Review of old data reveals no significant history of prior leukopenia or thrombocytopenia. Concern would be to underlying viral process however given his significant illness in its persistent nature at this time further review was performed. The patient has been on allopurinol. This particular medication occasionally can cause a vasculitis-type syndrome which causes significant leukopenia and febrile illness. Consequently this is discontinued A burst of steroids is given and monitored. We'll need to have his blood glucose closely followed. The patient's is present today. She is well. No other persons around him are ill. Cultures are in progress and his response to therapy will help determine the next step. Status: Acute (2) Leukopenia Status: Acute (3) Type II diabetes mellitus, well controlled Status: Acute
[2016-11-02] MEDS: SODIUM CHLORIDE 0.9% 1,000 ML IV SCH (15:54)
[2016-11-02] MEDS: methylPREDNISolone SOD SUCCI 40 MG/ML 1 ML VIAL IV SCH ×2 (15:55→23:53)
[2016-11-02 16:57] LABS: Glucose,Whole Blood 177 mg/dL (75-99)
[2016-11-02] MEDS ORDERED: SODIUM CHLORIDE 0.9% 1,000 ML IV ONE (18:05)
[2016-11-02] MEDS: ASPIRIN 325 MG TAB PO SCH (20:11)
[2016-11-02] MEDS: LEVOTHYROXINE 50 MCG TAB PO SCH (20:11)
[2016-11-02] MEDS: amLODIPine 5 MG TAB PO SCH (20:11)
[2016-11-02] MEDS: ATORVASTATIN 40 MG TAB PO SCH (20:11)
[2016-11-02] MEDS: HYDROcodone/APAP 10-325MG 1 EACH TAB PO PRN (20:17)
[2016-11-02 21:04] LABS: Glucose,Whole Blood 222 mg/dL (75-99)
[2016-11-03 07:26] LABS: Glucose,Whole Blood 282 mg/dL (75-99)
[2016-11-03] MEDS: INSULIN LISPRO (humaLOG) 300 UNIT/3 ML VIAL SQ SCH ×4 (08:08→21:24)
[2016-11-03] MEDS: LOSARTAN 50 MG TAB PO SCH (08:08)
[2016-11-03] MEDS: PANTOPRAZOLE 40 MG TABLET PO SCH ×2 (08:08→17:04)
[2016-11-03] MEDS: metFORMIN 500 MG TAB PO SCH ×2 (08:09→21:24)
[2016-11-03] MEDS: GABAPENTIN 400 MG CAP PO SCH ×4 (08:09→21:24)
[2016-11-03] MEDS: methylPREDNISolone SOD SUCCI 40 MG/ML 1 ML VIAL IV SCH ×3 (08:09→20:34)
[2016-11-03] MEDS: AZITHROMYCIN 500 MG TAB PO SCH (08:09)
[2016-11-03] MEDS: HYDROcodone/APAP 10-325MG 1 EACH TAB PO PRN ×4 (08:19→23:43)
[2016-11-03] MEDS: SODIUM CHLORIDE 0.9% 1,000 ML IV SCH ×2 (09:30→22:00)
[2016-11-03] MEDS: POTASSIUM CHLORIDE ER 10 MEQ TAB.ER.PRT PO SCH (09:39)
--- NOTE | 2016-11-03 09:52 | PN ---
Patient is feeling much better today. Ate last night, ate this morning. He says he has better strength and he had no fevers throughout the night. He had a past medical history of coming into the hospital with a fever of 102 and aches and pains. Chest x-rays x2 have been negative. Blood cultures on microbiology have been negative going into 72 hours. Urine culture showed no growth going into [address] Hardin' note. The patient was taken off allopurinol. His blood sugars were low to yesterday. Today they are back up into the 100 to 200 range and he was yesterday placed on ( ). Today, his blood pressure was 98/51, heart rate was in the 80s, temperature 97.3 and then again 96.4 at 7 a.m. CHEST: Essentially clear to auscultation. HEART: Sinus rhythm. ABDOMEN: Soft, nontender, with no organomegaly. Neck is fine. No new CBC or chem-17 today. It has been ordered for the morning. ASSESSMENT: 1. 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 2. Resolving hypoglycemia. 3. Long-standing hypertension. 4. Type 2 diabetes with insulin support. 5. Leukopenia. 6. Coronary artery disease. 7. Previous pancreatitis. 8. Resolving dehydration. PLAN: Will change his D5 to normal saline to continue at 75 an hour. DC his Cozaar due to slight drop in blood pressure. We will continue the rest of the medications with lab in the morning.
[2016-11-03 11:51] LABS: Glucose,Whole Blood 297 mg/dL (75-99)
[2016-11-03] MEDS: FERROUS SULFATE 325 MG TAB PO SCH (12:12)
[2016-11-03 17:15] LABS: Glucose,Whole Blood 215 mg/dL (75-99)
[2016-11-03] MEDS: amLODIPine 5 MG TAB PO SCH (20:34)
[2016-11-03] MEDS: LEVOTHYROXINE 50 MCG TAB PO SCH (20:34)
[2016-11-03] MEDS: ATORVASTATIN 40 MG TAB PO SCH (20:34)
[2016-11-03] MEDS: ASPIRIN 325 MG TAB PO SCH (20:34)
[2016-11-03 20:56] LABS: Glucose,Whole Blood 233 mg/dL (75-99)
[2016-11-03] MEDS: ARTIFICIAL TEARS-HYPROMELLOSE DROPS 15 ML BTL BOTH EYES PRN (21:31)
--- NOTE | 2016-11-03 22:16 | P.PN ---
Subjective Principal diagnosis: Fever and malaise 56-year-old male well-known to the infectious disease service since the emergency center feeling very poorly for the last few days. He developed a fever to 102. Was associated with chills without connor rigors. He was having some cough and chest congestion. He was having a significant body aches and significant malaise. He was brought to the emergency center where flu testing was negative. However he had evidence of relative leukopenia and sepsis. He subsequently was admitted and with sepsis the infectious diseases consultation was requested. 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 He developed a extensive infection that required surgical care. He had a protracted staph aureus bacteremia required several months of antibiotic therapy for improvement. The right wrist area finally improved and he's had a modestly good recovery. He does have significant underlying immunocompromise due to his diabetes mellitus as well as his arthritis and ankylosing spondylitis. Patient is now feeling considerably better. His high-grade fevers have resolved. His generalized body aches have improved. His mentation is back to baseline. He does feel considerably better than admission. He does not even recall the first couple of days due to his acute illness. Objective - Vital Signs Vital signs: Vital Signs Temp 96.6 F L 11/03/16 15:00 Pulse 93 11/03/16 19:47 Resp 16 11/03/16 15:00 BP 116/73 11/03/16 19:47 Pulse Ox 95 11/03/16 15:00 Intake & Output 11/03/16 11/03/16 11/04/16 06:59 18:59 06:59 Intake Total 875 Output Total 700 1 Balance 175 -1 Weight 96.5 kg Intake: Intake, IV Titration 875 Amount D5-0.9% NaCl with KCl 20 825 Meq/l 1,000 ml @ 75 mls/ hr IV .[id number] [place] Rx#: [id number] cefTRIAXone 1,000 mg In 50 Sodium Chloride 0.9% 50 ml @ 100 mls/hr IVPB Q24HR [facility] Rx#:[id number] Output: Urine 700 Straight 700 Stool 1 Other: Voiding Method Urinal Incontinent Incontinent # Voids 1 1 1 # Bowel Movements 1 1 1 - Exam 54-year-old male who has complaints complains of generalized fatigue and malaise and body aches HEENT: Anicteric conjunctiva are pink and moist nasal mucosa grossly intact without significant lesions, there is no thrush. Mucosa dry Neck: The neck is supple without significant lymphadenopathy or thyromegaly. Lungs: Good bilateral air entry without significant crackles or wheezes are heard There is no significant bronchial sounds. There is no egophony or dullness. Heart: Irregular with an audible S1 and S2 no S3 soft S4 no murmur click or rub. Abdomen: Positive bowel sounds soft and nontender without palpable masses or organomegaly. There was no guarding or rebound. Extremities: The left upper extremity shows no acute difficulties, IV site is present the right wrist reveals evidence of the prior surgical intervention. The extensive prior wound has healed. No evidence of any erythema or tenderness at that site. There is no epitrochlear or axillary lymphadenopathy. No other lymphadenopathy is noted. Neuro: Awake alert oriented to person place and time. He is at his baseline mental status - Labs CBC & Chem 7: 11/02/16 07:41 11/02/16 07:41 Labs: Abnormal Lab Results - Last 24 Hours (Table) 11/03/16 11/03/16 11/03/16 Range/Units 07:24 11:50 17:13 POC Glucose (mg/dL) 282 H 297 H 215 H (75-99) mg/dL 11/03/16 Range/Units 20:51 POC Glucose (mg/dL) 233 H (75-99) mg/dL Microbiology - Last 24 Hours (Table) 11/02/16 18:59 Blood Culture - Preliminary Blood No Growth after 24 hours 11/02/16 18:43 Blood Culture - Preliminary Blood No Growth after 24 hours Laboratory Results WBC 2.2 k/uL (3.8-10.6) L 11/02/16 07:41 RBC 3.81 m/uL (4.30-5.90) L 11/02/16 07:41 Hgb 11.4 gm/dL (13.0-17.5) L 11/02/16 07:41 Hct 38.0 % (39.0-53.0) L 11/02/16 07:41 MCV 99.7 fL (80.0-100.0) 11/02/16 07:41 MCH 29.8 pg (25.0-35.0) 11/02/16 07:41 MCHC 29.9 g/dL (31.0-37.0) L 11/02/16 07:41 RDW 16.4 % (11.5-15.5) H 11/02/16 07:41 Plt Count 70 k/uL (150-450) L 11/02/16 07:41 Neutrophils % 70 % 10/30/16 11:00 Neutrophils % (Manual) 71.0 % 11/02/16 07:41 Band Neutrophils % 14.0 % 11/02/16 07:41 Lymphocytes % 16 % 10/30/16 11:00 Lymphocytes % (Manual) 9.0 % 11/02/16 07:41 Monocytes % 8 % 10/30/16 11:00 Monocytes % (Manual) 6.0 % 11/02/16 07:41 Eosinophils % 2 % 10/30/16 11:00 Eosinophils % (Manual) 1.0 % 10/31/16 08:08 Basophils % 1 % 10/30/16 11:00 Basophils % (Manual) 0.5 % 10/31/16 08:08 Neutrophils # 2.5 k/uL (1.3-7.7) 10/30/16 11:00 Neutrophils # (Manual) 1.9 k/uL (1.3-7.7) 11/02/16 07:41 Lymphocytes # 0.6 k/uL (1.0-4.8) L 10/30/16 11:00 Lymphocytes # (Manual) 0.2 k/uL (1.0-4.8) L 11/02/16 07:41 Monocytes # 0.3 k/uL (0-1.0) 10/30/16 11:00 Monocytes # (Manual) 0.1 k/uL (0-1.0) 11/02/16 07:41 Eosinophils # 0.1 k/uL (0-0.7) 10/30/16 11:00 Eosinophils # (Manual) 0.0 k/uL (0-0.7) 10/31/16 08:08 Basophils # 0.0 k/uL (0-0.2) 10/30/16 11:00 Basophils # (Manual) 0.0 k/uL (0-0.2) 10/31/16 08:08 Nucleated RBCs 0 /100 WBC (0-0) 11/02/16 07:41 Manual Slide Review Performed 11/02/16 07:41 Hypochromasia Marked 11/02/16 07:41 Poikilocytosis (manual Present 11/02/16 07:41 Anisocytosis Slight 11/02/16 07:41 Macrocytosis Slight 11/02/16 07:41 PT 12.9 sec (9.0-12.0) H 11/01/16 16:51 INR 1.3 (<1.1) 11/01/16 16:51 Sodium 140 mmol/L (137-145) 11/02/16 07:41 Potassium 4.7 mmol/L (3.5-5.1) 11/02/16 07:41 Chloride 111 mmol/L (98-107) H 11/02/16 07:41 Carbon Dioxide 20 mmol/L (22-30) L 11/02/16 07:41 Anion Gap 9 mmol/L 11/02/16 07:41 BUN 22 mg/dL (9-20) H 11/02/16 07:41 Creatinine 1.05 mg/dL (0.66-1.25) 11/02/16 07:41 Est GFR (MDRD) Af Amer >60 (>60 ml/min/1.73 sqM) 11/02/16 07:41 Est GFR (MDRD) Non-Af >60 (>60 ml/min/1.73 sqM) 11/02/16 07:41 Glucose 138 mg/dL (74-99) H 11/02/16 07:41 POC Glucose (mg/dL) 233 mg/dL (75-99) H 11/03/16 20:51 POC Glu Advertising Assistant Manager ID Meena Allen 11/03/16 20:[address] Glu mg/dL 146 mg/dL 10/30/16 11:00 Hemoglobin A1c 6.7 % (4.2-6.1) H 10/30/16 11:00 Plasma Lactic Acid Freddy 1.2 mmol/L (0.7-2.0) 11/02/16 18:43 Calcium 7.9 mg/dL (8.4-10.2) L 11/02/16 07:41 Total Bilirubin 0.9 mg/dL (0.2-1.3) 11/02/16 07:41 AST 241 U/L (17-59) H 11/02/16 07:41 ALT 115 U/L (21-72) H 11/02/16 07:41 Alkaline Phosphatase 106 U/L (38-126) 11/02/16 07:41 Total Creatine Kinase 428 U/L (55-170) H 10/30/16 11:00 CK-MB (CK-2) 3.4 ng/mL (0.0-2.4) H* 10/30/16 11:00 CK-MB (CK-2) Rel Index 0.8 10/30/16 11:00 Troponin I <0.012 ng/mL (0.000-0.034) 10/30/16 11:00 NT-Pro-B Natriuret Pep 865 pg/mL 10/30/16 11:00 Total Protein 5.1 g/dL (6.3-8.2) L 11/02/16 07:41 Albumin 2.2 g/dL (3.5-5.0) L 11/02/16 07:41 Amylase 53 U/L (30-110) 11/02/16 07:41 Lipase 239 U/L (23-300) 11/02/16 07:41 Urine Color Yellow 10/30/16 11:00 Urine Appearance Clear (Clear) 10/30/16 11:00 Urine pH 5.5 (5.0-8.0) 10/30/16 11:00 Ur Specific [place] 1.017 (1.001-1.035) 10/30/16 11:00 Urine Protein Trace (Negative) H 10/30/16 11:00 Urine Glucose (UA) Negative (Negative) 10/30/16 11:00 Urine Ketones Negative (Negative) 10/30/16 11:00 Urine Blood Negative (Negative) 10/30/16 11:00 Urine Nitrate Negative (Negative) 10/30/16 11:00 Urine Bilirubin Negative (Negative) 10/30/16 11:00 Urine Urobilinogen <2.0 mg/dL (<2.0) 10/30/16 11:00 Ur Leukocyte Esterase Negative (Negative) 10/30/16 11:00 Influenza Type A RNA Not Detected (Not Detectd) 10/30/16 10:54 Influenza Type B (PCR) Not Detected (Not Detectd) 10/30/16 10:54 Microbiology 11/02/16 18:59 Blood Blood Culture - Preliminary No Growth after 24 hours 11/02/16 18:43 Blood Blood Culture - Preliminary No Growth after 24 hours 11/01/16 15:26 Blood Blood Culture - Preliminary No Growth after 48 hours 10/30/16 11:00 Blood Blood Culture - Preliminary No Growth after 96 hours 10/30/16 11:00 Urine,Clean Catch Urine Culture - Final Assessment and Plan (1) Fever Narrative/Plan: 56-year-old male with a long-standing history of diabetes mellitus who has had multiple recent complications. In the fall he had a bout of diabetic ketoacidosis and pancreatitis. He is now admitted relatively well. Hemoglobin A1c is now better controlled. He does have a history of the extensive abscess to the right wrist with the persistent bacteremia. This is from a few years ago and has had complete resolution of this extensive infection with MRSA. Now presenting with what appears to be a flulike illness. He has been initiated antibiotic therapy with Rocephin and azithromycin with concerns to pneumonia. Chest x-ray is negative but he is being hydrated and follow-up studies are requested. Influenza A and B testing by PCR was negative Patient continues to have difficulties with pancytopenia. Review of old data reveals no significant history of prior leukopenia or thrombocytopenia. Concern would be to underlying viral process however given his significant illness in its persistent nature at this time further review was performed. The patient has been on allopurinol. This particular medication occasionally can cause a vasculitis-type syndrome which causes significant leukopenia and febrile illness. Consequently this is discontinued A burst of steroids is given And the patient is now remarkably improved. His fevers have resolved. His generalized weakness is improved. Appetite is resolved. Blood sugars are being monitored and are only modestly elevated. Cultures are in progress and his response to therapy will help determine the next step. Status: Acute (2) Leukopenia Status: Acute (3) Type II diabetes mellitus, well controlled Status: Acute
[2016-11-04] MEDS: ARTIFICIAL TEARS-HYPROMELLOSE DROPS 15 ML BTL BOTH EYES PRN ×4 (03:01→23:53)
[2016-11-04] MEDS: HYDROcodone/APAP 10-325MG 1 EACH TAB PO PRN ×5 (04:31→20:38)
[2016-11-04 07:16] LABS: Glucose,Whole Blood 262 mg/dL (75-99)
[2016-11-04] MEDS: INSULIN LISPRO (humaLOG) 300 UNIT/3 ML VIAL SQ SCH ×4 (08:07→21:48)
[2016-11-04] MEDS: AZITHROMYCIN 500 MG TAB PO SCH (08:08)
[2016-11-04] MEDS: GABAPENTIN 400 MG CAP PO SCH ×4 (08:08→21:48)
[2016-11-04] MEDS: metFORMIN 500 MG TAB PO SCH ×2 (08:08→20:40)
[2016-11-04] MEDS: PANTOPRAZOLE 40 MG TABLET PO SCH ×2 (08:08→17:58)
[2016-11-04] MEDS: POTASSIUM CHLORIDE ER 10 MEQ TAB.ER.PRT PO SCH (08:09)
[2016-11-04] MEDS: methylPREDNISolone SOD SUCCI 40 MG/ML 1 ML VIAL IV SCH ×2 (08:09→20:40)
[2016-11-04 08:33] LABS: ALT 105 U/L (21-72); AST 191 U/L (17-59); Alkaline Phosphatase 96 U/L (38-126); Anion Gap 11 mmol/L; Blood Urea Nitrogen 26 mg/dL (9-20); Calcium 8.2 mg/dL (8.4-10.2); Carbon Dioxide 24 mmol/L (22-30); Chloride 109 mmol/L (98-107); Glucose 259 mg/dL (74-99); Non-African American GFR(MDRD) >60 (>60 ml/min/1.73 sqM); Potassium 4.6 mmol/L (3.5-5.1); Sodium 144 mmol/L (137-145); Total Bilirubin 0.5 mg/dL (0.2-1.3); Total Protein 5.7 g/dL (6.3-8.2)
[2016-11-04 08:36] LABS: Anisocytosis Slight; Eosinophils % (A) 0 %; Hypochromasia Moderate; Luc # (Auto) 0.08; MCH 29.5 pg (25.0-35.0); RDW 16.9 % (11.5-15.5)
[2016-11-04 08:52] LABS: Basophils % (A) 0 %; CH 29.4; CHCM 31.3; HCT 35.8 % (39.0-53.0); HDW 3.13; HGB 11.2 gm/dL (13.0-17.5); Luc % (Auto) 3; Lymphocytes # (A) 0.4 k/uL (1.0-4.8); Lymphocytes % (A) 17 %; MCHC 31.2 g/dL (31.0-37.0); Mean Platelet Volume 9.9; Monocytes # (A) 0.1 k/uL (0-1.0); Monocytes % (A) 5 %; Neutrophils # (A) 1.8 k/uL (1.3-7.7); Neutrophils % (A) 74 %; RBC 3.79 m/uL (4.30-5.90); WBC 2.4 k/uL (3.8-10.6); WBC (Perox) 2.51
[2016-11-04 08:53] LABS: MCV 94.6 fL (80.0-100.0)
[2016-11-04] MEDS: SODIUM CHLORIDE 0.9% 1,000 ML IV SCH (11:39)
[2016-11-04] MEDS: FERROUS SULFATE 325 MG TAB PO SCH (11:40)
[2016-11-04 11:57] LABS: Glucose,Whole Blood 240 mg/dL (75-99)
--- NOTE | 2016-11-04 12:25 | PN ---
A 56-year-old white male that was admitted with generalized weakness, fever up to 104 with moderately severe leukopenia. During the course, he developed elevation of liver enzymes and due to his past history of MRSA, type 2 diabetes with insulin support and generalized arthritis and previous pancreatitis, I decided to consult Dr. Hardin for his personal feeling. He was initially a leukopenia viral-type of picture. Now he has multiple blood cultures greater than 96 hours. Urine cultures were negative. Today his vital signs are stable with a blood pressure of 120/78, heart rate is in the 70s, respiratory 16, temperature is 96.4 with a room air of 93. He is well-oriented to person, place, and thing. He says he feels much better. ENT is within normal limits. Chest is essentially clear to auscultation. Heart is sinus rhythm. Abdomen is soft, nontender, with no organomegaly. Extremities at this time are negative. Lab work is WBC is still at 2.4, 11.2 hemoglobin, his platelet count is low 69. Blood sugars have been averaging in the 215 range, creatinine is at 0.88. His bilirubin is normal at 0.5 but his AST is 191, ALT is 105. Protein, albumin is low at 2.4. ASSESSMENT: 1. Severe viremia with pancytopenia. 2. History of type 2 diabetes with insulin support. 3. Coronary artery disease, which has been stable. 4. Severe degenerative disc disease of the lumbar spine and cervical spine. 5. Generalized osteoarthritis. 6. Hypertension, which is at this point been well controlled. Antibiotics are continued. The burst of steroids seem to help him quite well. We will watch him for another day and with the possibility of discharge soon.
[2016-11-04 17:23] LABS: Glucose,Whole Blood 200 mg/dL (75-99)
[2016-11-04] MEDS: amLODIPine 5 MG TAB PO SCH (20:39)
[2016-11-04] MEDS: ATORVASTATIN 40 MG TAB PO SCH (20:40)
[2016-11-04] MEDS: ASPIRIN 325 MG TAB PO SCH (20:40)
[2016-11-04] MEDS: LEVOTHYROXINE 50 MCG TAB PO SCH (20:40)
[2016-11-04 21:51] LABS: Glucose,Whole Blood 214 mg/dL (75-99)
[2016-11-05] MEDS: HYDROcodone/APAP 10-325MG 1 EACH TAB PO PRN ×6 (00:56→23:05)
[2016-11-05] MEDS: SODIUM CHLORIDE 0.9% 1,000 ML IV SCH (01:23)
[2016-11-05 07:19] LABS: Glucose,Whole Blood 225 mg/dL (75-99)
[2016-11-05] MEDS: PANTOPRAZOLE 40 MG TABLET PO SCH ×2 (07:35→17:27)
[2016-11-05] MEDS: metFORMIN 500 MG TAB PO SCH ×2 (07:35→21:12)
[2016-11-05] MEDS: GABAPENTIN 400 MG CAP PO SCH ×4 (07:35→21:12)
[2016-11-05] MEDS: INSULIN LISPRO (humaLOG) 300 UNIT/3 ML VIAL SQ SCH ×4 (07:35→21:13)
[2016-11-05] MEDS: POTASSIUM CHLORIDE ER 10 MEQ TAB.ER.PRT PO SCH (07:35)
[2016-11-05] MEDS: methylPREDNISolone 4 MG TAB PO SCH (08:33)
[2016-11-05] MEDS: AZITHROMYCIN 250 MG TAB PO SCH (08:34)
--- NOTE | 2016-11-05 12:25 | PN ---
This is a 56-year-old white male who was admitted with fever and extreme weakness. Blood cultures multiple blood cultures, sputum culture, which was never collected and urine evaluation was negative. He was started on IV antibiotics of Rocephin and Zithromax. His laboratory from yesterday we do not have a.m. today. WBC is still 4.2, hemoglobin is 11.2 and platelets 69,000. His ASAT is still 191 to 104. Protein is low. Sugars in the 200 range. His vital signs are blood pressure of 117/79, heart rates is in the 60s, 20 respiratory rate, temperature is 97.8. EYES: Pupils are equal, round, reactive to light and accommodation. ENT: Showed tympanic membranes and pharynx to be negative. NECK: Supple. Midline trachea. CHEST: Essentially clear to auscultation. HEART: Sinus rhythm with no murmur. ABDOMEN: Soft, nontender, with no organomegaly. Negative extremities except for arthritis. ASSESSMENT: 1. Extreme viremia with secondary increase in liver function probably mild hepatitis. 2. History of type 2 diabetes with insulin control. 3. Pancytopenia related with virus. 4. Coronary artery disease with previous bypass and stent placements, which is stable. 5. 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 6. Hypertension. Discontinue the antibiotics today. Put him on Medrol Dosepak along with switch him over also to the Z-[facility]. For the rest, please refer to my orders with the probability of discharge in the a.m.
[2016-11-05] MEDS: FERROUS SULFATE 325 MG TAB PO SCH (12:35)
[2016-11-05 12:37] LABS: Glucose,Whole Blood 212 mg/dL (75-99)
[2016-11-05 16:53] LABS: Glucose,Whole Blood 180 mg/dL (75-99)
--- NOTE | 2016-11-05 16:53 | P.PN ---
Subjective Principal diagnosis: Fever and malaise 56-year-old male well-known to the infectious disease service since the emergency center feeling very poorly for the last few days. He developed a fever to 102. Was associated with chills without connor rigors. He was having some cough and chest congestion. He was having a significant body aches and significant malaise. He was brought to the emergency center where flu testing was negative. However he had evidence of relative leukopenia and sepsis. He subsequently was admitted and with sepsis the infectious diseases consultation was requested. 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 He developed a extensive infection that required surgical care. He had a protracted staph aureus bacteremia required several months of antibiotic therapy for improvement. The right wrist area finally improved and he's had a modestly good recovery. He does have significant underlying immunocompromise due to his diabetes mellitus as well as his arthritis and ankylosing spondylitis. Patient is now feeling considerably better. His high-grade fevers have resolved. His generalized body aches have improved. His mentation is back to baseline. He does feel considerably better than admission. He does not even recall the first couple of days due to his acute illness. Objective - Vital Signs Vital signs: Vital Signs Temp 97.0 F L 11/05/16 15:00 Pulse 55 L 11/05/16 15:00 Resp 18 11/05/16 15:00 BP 121/57 11/05/16 15:00 Pulse Ox 92 L 11/05/16 15:00 Intake & Output 11/04/16 11/05/16 11/05/16 18:59 06:59 18:59 Intake Total 1150 300 Balance 1150 300 Weight 95 kg Intake: Intake, IV Titration 650 Amount Sodium Chloride 0.9% 1, 600 000 ml @ 75 mls/hr IV . [id number] [place] Rx#:[id number] cefTRIAXone 1,000 mg In 50 Sodium Chloride 0.9% 50 ml @ 100 mls/hr IVPB Q24HR [facility] Rx#:[id number] Oral 500 300 Other: Voiding Method Toilet Incontinent # Voids 3 2 1 # Bowel Movements 2 - Exam 54-year-old male who has complaints complains of generalized fatigue and malaise and body aches HEENT: Anicteric conjunctiva are pink and moist nasal mucosa grossly intact without significant lesions, there is no thrush. Mucosa dry Neck: The neck is supple without significant lymphadenopathy or thyromegaly. Lungs: Good bilateral air entry without significant crackles or wheezes are heard There is no significant bronchial sounds. There is no egophony or dullness. Heart: Irregular with an audible S1 and S2 no S3 soft S4 no murmur click or rub. Abdomen: Positive bowel sounds soft and nontender without palpable masses or organomegaly. There was no guarding or rebound. Extremities: The left upper extremity shows no acute difficulties, IV site is present the right wrist reveals evidence of the prior surgical intervention. The extensive prior wound has healed. No evidence of any erythema or tenderness at that site. There is no epitrochlear or axillary lymphadenopathy. No other lymphadenopathy is noted. Neuro: Awake alert oriented to person place and time. He is at his baseline mental status Skin evidence of some pressure ulceration on to the coccyx present on admission. Minimally tender. - Labs CBC & Chem 7: 11/04/16 07:40 11/04/16 07:40 Labs: Abnormal Lab Results - Last 24 Hours (Table) 11/04/16 11/04/16 11/05/16 Range/Units 17:19 21:48 07:17 POC Glucose (mg/dL) 200 H 214 H 225 H (75-99) mg/dL 11/05/16 Range/Units 12:35 POC Glucose (mg/dL) 212 H (75-99) mg/dL Microbiology - Last 24 Hours (Table) 11/02/16 18:59 Blood Culture - Preliminary Blood No Growth after 48 hours 11/02/16 18:43 Blood Culture - Preliminary Blood No Growth after 48 hours Laboratory Results WBC 2.4 k/uL (3.8-10.6) L 11/04/16 07:40 RBC 3.79 m/uL (4.30-5.90) L 11/04/16 07:40 Hgb 11.2 gm/dL (13.0-17.5) L 11/04/16 07:40 Hct 35.8 % (39.0-53.0) L 11/04/16 07:40 MCV 94.6 fL (80.0-100.0) D 11/04/16 07:40 MCH 29.5 pg (25.0-35.0) 11/04/16 07:40 MCHC 31.2 g/dL (31.0-37.0) 11/04/16 07:40 RDW 16.9 % (11.5-15.5) H 11/04/16 07:40 Plt Count 69 k/uL (150-450) L 11/04/16 07:40 Neutrophils % 74 % 11/04/16 07:40 Neutrophils % (Manual) 71.0 % 11/02/16 07:41 Band Neutrophils % 14.0 % 11/02/16 07:41 Lymphocytes % 17 % 11/04/16 07:40 Lymphocytes % (Manual) 9.0 % 11/02/16 07:41 Monocytes % 5 % 11/04/16 07:40 Monocytes % (Manual) 6.0 % 11/02/16 07:41 Eosinophils % 0 % 11/04/16 07:40 Eosinophils % (Manual) 1.0 % 10/31/16 08:08 Basophils % 0 % 11/04/16 07:40 Basophils % (Manual) 0.5 % 10/31/16 08:08 Neutrophils # 1.8 k/uL (1.3-7.7) 11/04/16 07:40 Neutrophils # (Manual) 1.9 k/uL (1.3-7.7) 11/02/16 07:41 Lymphocytes # 0.4 k/uL (1.0-4.8) L 11/04/16 07:40 Lymphocytes # (Manual) 0.2 k/uL (1.0-4.8) L 11/02/16 07:41 Monocytes # 0.1 k/uL (0-1.0) 11/04/16 07:40 Monocytes # (Manual) 0.1 k/uL (0-1.0) 11/02/16 07:41 Eosinophils # 0.0 k/uL (0-0.7) 11/04/16 07:40 Eosinophils # (Manual) 0.0 k/uL (0-0.7) 10/31/16 08:08 Basophils # 0.0 k/uL (0-0.2) 11/04/16 07:40 Basophils # (Manual) 0.0 k/uL (0-0.2) 10/31/16 08:08 Nucleated RBCs 0 /100 WBC (0-0) 11/02/16 07:41 Manual Slide Review Performed 11/02/16 07:41 Hypochromasia Moderate 11/04/16 07:40 Poikilocytosis (manual Present 11/02/16 07:41 Anisocytosis Slight 11/04/16 07:40 Macrocytosis Slight 11/02/16 07:41 PT 12.9 sec (9.0-12.0) H 11/01/16 16:51 INR 1.3 (<1.1) 11/01/16 16:51 Sodium 144 mmol/L (137-145) 11/04/16 07:40 Potassium 4.6 mmol/L (3.5-5.1) 11/04/16 07:40 Chloride 109 mmol/L (98-107) H 11/04/16 07:40 Carbon Dioxide 24 mmol/L (22-30) 11/04/16 07:40 Anion Gap 11 mmol/L 11/04/16 07:40 BUN 26 mg/dL (9-20) H 11/04/16 07:40 Creatinine 0.88 mg/dL (0.66-1.25) 11/04/16 07:40 Est GFR (MDRD) Af Amer >60 (>60 ml/min/1.73 sqM) 11/04/16 07:40 Est GFR (MDRD) Non-Af >60 (>60 ml/min/1.73 sqM) 11/04/16 07:40 Glucose 259 mg/dL (74-99) H 11/04/16 07:40 POC Glucose (mg/dL) 212 mg/dL (75-99) H 11/05/16 12:35 POC Glu Machinist First Class ID Hui Jonas 11/05/16 12:[address] Glu mg/dL 146 mg/dL 10/30/16 11:00 Hemoglobin A1c 6.7 % (4.2-6.1) H 10/30/16 11:00 Plasma Lactic Acid Freddy 1.2 mmol/L (0.7-2.0) 11/02/16 18:43 Calcium 8.2 mg/dL (8.4-10.2) L 11/04/16 07:40 Total Bilirubin 0.5 mg/dL (0.2-1.3) 11/04/16 07:40 AST 191 U/L (17-59) H 11/04/16 07:40 ALT 105 U/L (21-72) H 11/04/16 07:40 Alkaline Phosphatase 96 U/L (38-126) 11/04/16 07:40 Total Creatine Kinase 428 U/L (55-170) H 10/30/16 11:00 CK-MB (CK-2) 3.4 ng/mL (0.0-2.4) H* 10/30/16 11:00 CK-MB (CK-2) Rel Index 0.8 10/30/16 11:00 Troponin I <0.012 ng/mL (0.000-0.034) 10/30/16 11:00 NT-Pro-B Natriuret Pep 865 pg/mL 10/30/16 11:00 Total Protein 5.7 g/dL (6.3-8.2) L 11/04/16 07:40 Albumin 2.7 g/dL (3.5-5.0) L 11/04/16 07:40 Amylase 53 U/L (30-110) 11/02/16 07:41 Lipase 239 U/L (23-300) 11/02/16 07:41 Urine Color Yellow 10/30/16 11:00 Urine Appearance Clear (Clear) 10/30/16 11:00 Urine pH 5.5 (5.0-8.0) 10/30/16 11:00 Ur Specific [place] 1.017 (1.001-1.035) 10/30/16 11:00 Urine Protein Trace (Negative) H 10/30/16 11:00 Urine Glucose (UA) Negative (Negative) 10/30/16 11:00 Urine Ketones Negative (Negative) 10/30/16 11:00 Urine Blood Negative (Negative) 10/30/16 11:00 Urine Nitrate Negative (Negative) 10/30/16 11:00 Urine Bilirubin Negative (Negative) 10/30/16 11:00 Urine Urobilinogen <2.0 mg/dL (<2.0) 10/30/16 11:00 Ur Leukocyte Esterase Negative (Negative) 10/30/16 11:00 Influenza Type A RNA Not Detected (Not Detectd) 10/30/16 10:54 Influenza Type B (PCR) Not Detected (Not Detectd) 10/30/16 10:54 Microbiology 10/30/16 11:00 Blood Blood Culture - Final No Growth after 144 hours 11/02/16 18:59 Blood Blood Culture - Preliminary No Growth after 48 hours 11/02/16 18:43 Blood Blood Culture - Preliminary No Growth after 48 hours 11/01/16 15:26 Blood Blood Culture - Preliminary No Growth after 72 hours 10/30/16 11:00 Urine,Clean Catch Urine Culture - Final Assessment and Plan (1) Fever Narrative/Plan: 56-year-old male with a long-standing history of diabetes mellitus who has had multiple recent complications. In the fall he had a bout of diabetic ketoacidosis and pancreatitis. He is now admitted relatively well. Hemoglobin A1c is now better controlled. He does have a history of the extensive abscess to the right wrist with the persistent bacteremia. This is from a few years ago and has had complete resolution of this extensive infection with MRSA. Now presenting with what appears to be a flulike illness. He has been initiated antibiotic therapy with Rocephin and azithromycin with concerns to pneumonia. Chest x-ray is negative but he is being hydrated and follow-up studies are requested. Influenza A and B testing by PCR was negative Patient continues to have difficulties with pancytopenia. Review of old data reveals no significant history of prior leukopenia or thrombocytopenia. Concern would be to underlying viral process however given his significant illness in its persistent nature at this time further review was performed. The patient has been on allopurinol. This particular medication occasionally can cause a vasculitis-type syndrome which causes significant leukopenia and febrile illness. Consequently this is discontinued A burst of steroids is given And the patient is now remarkably improved. His fevers have resolved. His generalized weakness is improved. Appetite is resolved. Blood sugars are being monitored and are only modestly elevated. Cultures are negative. Antibiotics were discontinued. Steroid Therapy has been altered to oral therapy. Likely discharge home tomorrow. Follow-up in the office. Opticel will be applied to the stage III pressure ulceration to his coccyx. Status: Acute (2) Leukopenia Status: Acute (3) Type II diabetes mellitus, well controlled Status: Acute
[2016-11-05] MEDS: ARTIFICIAL TEARS-HYPROMELLOSE DROPS 15 ML BTL BOTH EYES PRN (17:48)
[2016-11-05 20:26] LABS: Glucose,Whole Blood 240 mg/dL (75-99)
[2016-11-05] MEDS: ASPIRIN 325 MG TAB PO SCH (21:12)
[2016-11-05] MEDS: amLODIPine 5 MG TAB PO SCH (21:13)
[2016-11-05] MEDS: LEVOTHYROXINE 50 MCG TAB PO SCH (21:13)
[2016-11-05] MEDS: ATORVASTATIN 40 MG TAB PO SCH (21:13)
[2016-11-05 23:12] VITALS: RESP 16
[2016-11-06] MEDS: HYDROcodone/APAP 10-325MG 1 EACH TAB PO PRN ×3 (03:56→11:59)
[2016-11-06 06:50] LABS: Glucose,Whole Blood 115 mg/dL (75-99)
[2016-11-06] MEDS: INSULIN LISPRO (humaLOG) 300 UNIT/3 ML VIAL SQ SCH (07:03)
[2016-11-06] MEDS: methylPREDNISolone 4 MG TAB PO SCH (07:45)
[2016-11-06] MEDS: POTASSIUM CHLORIDE ER 10 MEQ TAB.ER.PRT PO SCH (07:45)
[2016-11-06] MEDS: AZITHROMYCIN 250 MG TAB PO SCH (07:45)
[2016-11-06] MEDS: PANTOPRAZOLE 40 MG TABLET PO SCH (07:45)
[2016-11-06] MEDS: GABAPENTIN 400 MG CAP PO SCH ×2 (07:46→11:06)
[2016-11-06] MEDS: metFORMIN 500 MG TAB PO SCH (07:46)
[2016-11-06 08:40] VITALS: BP 124/69; PULSE 53; TEMP 97
[2016-11-06] MEDS: FERROUS SULFATE 325 MG TAB PO SCH (11:06)
--- NOTE | 2016-11-06 11:20 | P.DS ---
Providers Date of admission: 11/01/16 17:36 Expected date of discharge: 11/06/16 Attending physician: Bautista Romero Consults: Dr. Hardin, infectitious disease Primary care physician: Bautista Romero [facility] Course: Patient is a 56-year-old white male admitted through the emergency department with complains of fevers up to 104, chills, body aches, significant malaise, cough and some congestion. Patient did have evidence of moderately severe leukopenia and sepsis and was admitted to the medical floor with consult to infectious disease service. Patient was started on IV antibiotics in the form of Rocephin and Zithromax for empiric coverage. Flu testing, numerous blood cultures, and urine cultures tested negative. Patient did also have evidence of mild hepatitis. Allopurinol was discontinued by infectious disease service as there was a concern that this medication can cause a vasculitis-type syndrome which causes significant leukopenia and febrile illness. Patient improved with IV hydration, systemic steroids, and supportive treatment. Patient was discharged to home in stable condition with close follow-up in the outpatient setting. Discharge diagnoses: 1. Extreme viremia with sepsis with secondary increase in liver function probably mild hepatitis. 2. History of type 2 diabetes, insulin-dependent, well-controlled. 3. Pancytopenia related with virus. 4. Coronary artery disease with previous bypass and stent placements, stable. 5. 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 6. Hypertension. 7. Severe peripheral neuropathy suspect secondary to diabetes and chronic back pain. 8. History of pneumonia. 9. History of recent pancreatitis. 10. History of gout. 11. Chronic diastolic heart failure. 12. Stage II pressure ulceration on coccyx, present on admission. The above impression and plan have been discussed and directed by Dr. Romero. Jewell ANTHONY acting as scribe for Dr. Romero. Pertinent Studies: Chest x-ray Patient Condition at Discharge: Good Plan - Discharge Summary New Discharge Prescriptions: Azithromycin [Zithromax] 250 mg PO DAILY #4 tab methylPREDNISolone Dose Pack [Medrol Dose Pack] 4 mg PO DIRECTED #15 tab Discharge Medication List Aspirin 325 mg PO HS 02/01/14 [History] Levothyroxine Sodium [Synthroid] 50 mcg PO HS 02/01/14 [History] Nitroglycerin Sl Tabs [Nitrostat] 0.4 mg SUBLINGUAL Q5M PRN 02/01/14 [History] Omeprazole [PriLOSEC] 20 mg PO BID 02/01/14 [History] Furosemide [Lasix] 20 mg PO DAILY PRN 05/13/15 [History] Gabapentin [Neurontin] 800 mg PO QID 05/13/15 [History] amLODIPine [Norvasc] 5 mg PO HS 05/13/15 [History] HYDROcodone/APAP 10-325MG [Cullen 10-325] 1 tab PO Q4HR PRN 07/17/16 [History] Insulin Aspart [NovoLOG] See Protocol SQ AC-TID PRN 07/17/16 [History] Simvastatin [Zocor] 80 mg PO HS 07/17/16 [History] fentaNYL 25MCG/HR PATCH [Duragesic 25MCG/HR] 1 patch TRANSDERM Q72H 07/17/16 [ History] glipiZIDE [Glucotrol] 2.5 mg PO AC-BID 07/17/16 [History] sitaGLIPtin PHOS/metFORMIN HCL [Janumet 50-1,000 mg Tablet] 1 tab PO BID [History] Ferrous Sulfate [Feosol] 325 mg PO DAILY 10/30/16 [History] Potassium Chloride [Klor-Con Sprinkle] 10 meq PO DAILY 10/30/16 [History] Azithromycin [Zithromax] 250 mg PO DAILY #4 tab 11/06/16 [Rx] Ibuprofen [Motrin] 400 mg PO Q6HR PRN #0 tab 11/06/16 [Rx] methylPREDNISolone Dose Pack [Medrol Dose Pack] 4 mg PO DIRECTED #15 tab [Rx] Follow up Appointment(s)/Referral(s): Bran Hardin MD [STAFF PHYSICIAN] - 11/21/16 10:45 am Bautista Romero MD [Primary Care Provider] - 11/12/16 10:00 am Patient Instructions/Handouts: Heart Failure (DC), Sepsis (GEN) Activity/Diet/Wound Care/Special Instructions: Cardiac, diabetic diet. Diabetic folder given. Wound care instructions: Apply Optifoam to sacrum, may leave on for 7 days, change sooner if excessive drainage. Discharge Disposition: HOME SELF-CARE
== END 2016-11-06 12:24 | disposition home or self-care (01) | DRG 871 ==
LOC: EC 09:57 → 4MS4W 15:05 → OBSVTOIN 11-01 17:36
PROVIDERS: ADMIT Family Medicine; ATTEND Family Medicine
DX: A41.89 Other specified sepsis (principal); J18.9 Pneumonia, unspecified organism; D61.818 Other pancytopenia; I11.0 Hypertensive heart disease with heart failure; L89.152 Pressure ulcer of sacral region, stage 2; I50.32 Chronic diastolic (congestive) heart failure; G62.9 Polyneuropathy, unspecified; M41.9 Scoliosis, unspecified; E11.649 Type 2 diabetes mellitus with hypoglycemia without coma; E87.8 Other disorders of electrolyte and fluid balance, not elsewhere classified; E78.5 Hyperlipidemia, unspecified; E86.0 Dehydration; I25.10 Atherosclerotic heart disease of native coronary artery without angina pectoris; I25.2 Old myocardial infarction; K21.9 Gastro-esophageal reflux disease without esophagitis; K75.9 Inflammatory liver disease, unspecified; M10.9 Gout, unspecified; M15.9 Polyosteoarthritis, unspecified; M45.9 Ankylosing spondylitis of unspecified sites in spine; M50.30 Other cervical disc degeneration, unspecified cervical region; M51.36 Other intervertebral disc degeneration, lumbar region; M79.1 Myalgia; Z79.4 Long term (current) use of insulin; Z82.49 Family history of ischemic heart disease and other diseases of the circulatory system; Z85.828 Personal history of other malignant neoplasm of skin; Z86.14 Personal history of Methicillin resistant Staphylococcus aureus infection; Z87.01 Personal history of pneumonia (recurrent); Z87.891 Personal history of nicotine dependence; Z95.1 Presence of aortocoronary bypass graft; Z95.5 Presence of coronary angioplasty implant and graft; Z96.641 Presence of right artificial hip joint; Z79.82 Long term (current) use of aspirin; Z79.899 Other long term (current) drug therapy
CPT/HCPCS: 36415; 71020; 80053; 81003; 82150; 82550; 82553; 83036; 83605; 83690; 83880; 84484; 85025; 85610; 87040; 87086; 87502; 94640; 96360; 96361; 96365; 96366; 96367; 99285

== ENCOUNTER 2016-11-17 03:08 | Inpatient (IN) | payer MEDICARE, OTHER ==
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
[2016-11-17 03:46] LABS: Anisocytosis Slight; Basophils % (A) 0 %; CH 29.5; CHCM 29.7; Eosinophils # (A) 0.2 k/uL (0-0.7); Eosinophils % (A) 1 %; HCT 38.3 % (39.0-53.0); HDW 2.49; HGB 11.4 gm/dL (13.0-17.5); Hypochromasia Marked; Luc # (Auto) 0.23; Luc % (Auto) 2; Lymphocytes # (A) 0.6 k/uL (1.0-4.8); Lymphocytes % (A) 5 %; MCH 29.6 pg (25.0-35.0); MCHC 29.8 g/dL (31.0-37.0); MCV 99.5 fL (80.0-100.0); Macrocytosis Slight; Mean Platelet Volume 7.7; Monocytes # (A) 0.6 k/uL (0-1.0); Monocytes % (A) 4 %; Neutrophils # (A) 11.5 k/uL (1.3-7.7); Neutrophils % (A) 88 %; RBC 3.85 m/uL (4.30-5.90); RDW 16.1 % (11.5-15.5); WBC 13.1 k/uL (3.8-10.6); WBC (Perox) 13.53
[2016-11-17 03:58] LABS: ALT 78 U/L (21-72); AST 60 U/L (17-59); Alkaline Phosphatase 159 U/L (38-126); Anion Gap 12 mmol/L; Blood Urea Nitrogen 24 mg/dL (9-20); Calcium 8.6 mg/dL (8.4-10.2); Carbon Dioxide 24 mmol/L (22-30); Chloride 104 mmol/L (98-107); Glucose 300 mg/dL (74-99); Magnesium 1.1 mg/dL (1.6-2.3); Non-African American GFR(MDRD) >60 (>60 ml/min/1.73 sqM); Sodium 140 mmol/L (137-145); Total Bilirubin 1.3 mg/dL (0.2-1.3); Total Protein 6.2 g/dL (6.3-8.2)
[2016-11-17] MEDS ORDERED: SODIUM CHLORIDE 0.9% 2,000 ML IV ONE (04:09)
--- NOTE | 2016-11-17 04:14 | XR ---
EXAM: XR Chest, 2 Views. CLINICAL HISTORY: Reason: cough TECHNIQUE: Frontal and lateral views of the chest. COMPARISON: CXR 10/30/16 and 10/31/16 FINDINGS: Lungs: Left basilar atelectasis. Pleural space: Unremarkable. No pneumothorax. Heart: Unremarkable. No cardiomegaly. Mediastinum: Unremarkable. Bones/joints: Sternotomy wires. Upper abdomen: Cholecystectomy clips. Other findings: Evidence of previous ACDF. IMPRESSION: Left basilar atelectasis.
[2016-11-17] MEDS ORDERED: MAGNESIUM SULFATE-D5W PMX 1 GM in DEXTROSE/WATER 1 100ML.BAG IVPB ONE (04:23)
[2016-11-17] MEDS ORDERED: ACETAMINOPHEN IV (For NPO) 1,000 MG in EMPTY BAG 1 BAG IVPB STA (04:23)
[2016-11-17 04:28] LABS: Creatine Kinase MB 7.2 ng/mL (0.0-2.4)
[2016-11-17] MEDS ORDERED: PIPERACILLIN-TAZOBACTAM 3.375 GM in DEXTROSE/WATER 1 50ML.BAG IVPB STA (04:37)
[2016-11-17] MEDS ORDERED: SODIUM CHLORIDE 0.9% 1,000 ML IV STA ×2 (05:23→05:26)
[2016-11-17] MEDS ORDERED: PNEUMONIA PROTOCOL UTILIZED 1 EACH MISC PO PRN (05:39)
[2016-11-17] MEDS ORDERED: LEVOFLOXACIN 750MG-D5W PMX 750 MG in DEXTROSE/WATER 1 150ML.BAG IVPB STA (05:39)
[2016-11-17] MEDS ORDERED: FUROSEMIDE 20 MG TAB PO PRN (05:40)
[2016-11-17] MEDS ORDERED: IBUPROFEN 400 MG TAB PO PRN (05:40)
[2016-11-17] MEDS ORDERED: NITROGLYCERIN SL TABS 0.4 MG TAB SUBLINGUAL PRN (05:40)
--- NOTE | 2016-11-17 06:23 | ED ---
Medical Decision Making - Medical Decision Making Patient does demonstrate some evidence of sepsis syndrome however he didn't want to IV fluids. He is in no distress at this time. - Lab Data Result diagrams: 11/17/16 03:20 11/17/16 03:20 Lab Results 11/17/16 11/17/16 11/17/16 Range/Units 03:20 03:20 03:20 WBC 13.1 H (3.8-10.6) k/uL RBC 3.85 L (4.30-5.90) m/uL Hgb 11.4 L (13.0-17.5) gm/dL Hct 38.3 L (39.0-53.0) % MCV 99.5 (80.0-100.0) fL MCH 29.6 (25.0-35.0) pg MCHC 29.8 L (31.0-37.0) g/dL RDW 16.1 H (11.5-15.5) % Plt Count 196 (150-450) k/uL Neutrophils % 88 % Lymphocytes % 5 % Monocytes % 4 % Eosinophils % 1 % Basophils % 0 % Neutrophils # 11.5 H (1.3-7.7) k/uL Lymphocytes # 0.6 L (1.0-4.8) k/uL Monocytes # 0.6 (0-1.0) k/uL Eosinophils # 0.2 (0-0.7) k/uL Basophils # 0.0 (0-0.2) k/uL Hypochromasia Marked Anisocytosis Slight Macrocytosis Slight Sodium 140 (137-145) mmol/L Potassium 5.0 (3.5-5.1) mmol/L Chloride 104 (98-107) mmol/L Carbon Dioxide 24 (22-30) mmol/L Anion Gap 12 mmol/L BUN 24 H (9-20) mg/dL Creatinine 1.00 (0.66-1.25) mg/dL Est GFR (MDRD) Af Amer >60 (>60 ml/min/1.73 sqM) Est GFR (MDRD) Non-Af >60 (>60 ml/min/1.73 sqM) Glucose 300 H (74-99) mg/dL Plasma Lactic Acid Freddy (0.7-2.0) mmol/L Calcium 8.6 (8.4-10.2) mg/dL Magnesium 1.1 L (1.6-2.3) mg/dL Total Bilirubin 1.3 (0.2-1.3) mg/dL AST 60 H (17-59) U/L ALT 78 H (21-72) U/L Alkaline Phosphatase 159 H (38-126) U/L Total Creatine Kinase 919 H (55-170) U/L CK-MB (CK-2) 7.2 H* (0.0-2.4) ng/mL CK-MB (CK-2) Rel Index 0.8 Total Protein 6.2 L (6.3-8.2) g/dL Albumin 3.2 L (3.5-5.0) g/dL Influenza Type A RNA (Not Detectd) Influenza Type B (PCR) (Not Detectd) 11/17/16 11/17/16 Range/Units 03:20 03:20 WBC (3.8-10.6) k/uL RBC (4.30-5.90) m/uL Hgb (13.0-17.5) gm/dL Hct (39.0-53.0) % MCV (80.0-100.0) fL MCH (25.0-35.0) pg MCHC (31.0-37.0) g/dL RDW (11.5-15.5) % Plt Count (150-450) k/uL Neutrophils % % Lymphocytes % % Monocytes % % Eosinophils % % Basophils % % Neutrophils # (1.3-7.7) k/uL Lymphocytes # (1.0-4.8) k/uL Monocytes # (0-1.0) k/uL Eosinophils # (0-0.7) k/uL Basophils # (0-0.2) k/uL Hypochromasia Anisocytosis Macrocytosis Sodium (137-145) mmol/L Potassium (3.5-5.1) mmol/L Chloride (98-107) mmol/L Carbon Dioxide (22-30) mmol/L Anion Gap mmol/L BUN (9-20) mg/dL Creatinine (0.66-1.25) mg/dL Est GFR (MDRD) Af Amer (>60 ml/min/1.73 sqM) Est GFR (MDRD) Non-Af (>60 ml/min/1.73 sqM) Glucose (74-99) mg/dL Plasma Lactic Acid Freddy 3.0 H* (0.7-2.0) mmol/L Calcium (8.4-10.2) mg/dL Magnesium (1.6-2.3) mg/dL Total Bilirubin (0.2-1.3) mg/dL AST (17-59) U/L ALT (21-72) U/L Alkaline Phosphatase (38-126) U/L Total Creatine Kinase (55-170) U/L CK-MB (CK-2) (0.0-2.4) ng/mL CK-MB (CK-2) Rel Index Total Protein (6.3-8.2) g/dL Albumin (3.5-5.0) g/dL Influenza Type A RNA Not Detected (Not Detectd) Influenza Type B (PCR) Not Detected (Not Detectd) Disposition Clinical Impression: Left lower lobe pneumonia, Febrile illness, acute, Sepsis Disposition: ADMITTED IP TO THIS HOSP Condition: Stable
[2016-11-17] MEDS: SODIUM CHLORIDE 0.9% 1,000 ML IV SCH ×2 (07:32→18:21)
[2016-11-17] MEDS: INSULIN LISPRO (humaLOG) 300 UNIT/3 ML VIAL SQ SCH ×4 (11:04→22:22)
--- NOTE | 2016-11-17 11:13 | HP ---
DATE OF ADMISSION: 11/17/2016 Benja Ribera is a 56-year-old male who presented to the ED at [facility] on 11/17/2016. He came in with cough, high fever up to 104 last night and subsequently 102. He also was having some mild confusion at the time and was seen in the ER and admitted for further evaluation and management. PAST MEDICAL HISTORY: Positive for congestive heart failure, coronary artery disease, status post coronary artery bypass, I believe in 2010, history of pneumonia with right parapneumonic effusion with chest tube in the past, history of bilateral lower extremity edema, infected right and infection of the right elbow, coronary artery stent placement, history of MRSA in the past, history of bowel resection cholecystectomy, hernia repair, total right hip replacement. FAMILY HISTORY: Positive for cancer, gastroesophageal do reflux disease, and osteoarthritis in his mother. Father had a history of diabetes mellitus and pulmonary fibrosis and lung cancer. SOCIAL HISTORY: Patient used to smoke from 1981 to 1994 a pack of cigarettes per day. He used to use marijuana and cocaine as a young person. He does not drink alcohol excessively. His medications prior to admission were: 1. Sitagliptin with metformin. 2. Glipizide. 3. Fentanyl. 4. Amlodipine. 5. Zocor. 6. Potassium chloride. 7. Prilosec. 8. Nitrostat. 9. Synthroid. 10. NovoLog Insulin. 11. Hydrocodone. 12. Acetaminophen. 13. Neurontin. 14. Lasix. 15. Feosol. 16. Aspirin. REVIEW OF SYSTEMS: Positive for obesity, history of loud snoring and witnessed apneas per his . On physical examination, blood pressure 106/51, respiratory rate 18, pulse of 70, temperature 97.6, O2 sat on 2 liters by nasal cannula is 98%. HEENT reveals pupils are equal. Chest revealed decreased breath sounds, prolonged expiration, bilateral expiratory wheeze. Cardiovascular system reveals an S1 and S2. ABDOMEN: Soft. There is 2+ pedal edema. Labs reveal a white count of 13.1, hemoglobin of 11.4, sodium 140, potassium 5, chloride 104, bicarb 24, BUN 24, creatinine of one; lactic acid venous was 3, CK was 919 with an MB of 7.8. Influenza A and B were negative. Albumin is 3.2 Chest x-ray shows left basilar atelectatic changes. IMPRESSION: 1. Left lower zone pneumonia is likely. 2. Coronary artery disease, status post coronary artery bypass. 3. Diabetes mellitus. 4. Acute bronchospasm which may be due to infectious etiology versus asthma and chronic obstructive pulmonary disease with acute exacerbation. 5. History of gout. 6. Recent pneumonia with recurrent infections. At this point in time, from a medical standpoint, keep him on bronchodilators. Add aerosolized steroids and Montelukast to his regimen in the hope for bringing down his need for systemic steroids. Keep him on Solu-Medrol. Control his sugars. Have him seen by ID. Continue Zosyn and Levaquin in the interim. Depending on how he does, we shall make further changes to his care. Optimize his fluid status as well.
[2016-11-17] MEDS: POTASSIUM CHLORIDE ER 10 MEQ TAB.ER.PRT PO SCH (11:15)
[2016-11-17] MEDS: FERROUS SULFATE 325 MG TAB PO SCH (11:15)
[2016-11-17] MEDS: LINAGLIPTIN 5 MG TABLET PO SCH (11:16)
[2016-11-17] MEDS: PANTOPRAZOLE 40 MG TABLET PO SCH ×2 (11:16→20:23)
[2016-11-17] MEDS: GABAPENTIN 400 MG CAP PO SCH ×4 (11:17→20:23)
[2016-11-17] MEDS: metFORMIN 500 MG TAB PO SCH ×2 (11:17→17:20)
[2016-11-17] MEDS: methylPREDNISolone SOD SUCCI 125 MG/2 ML VIAL IV SCH ×2 (11:18→17:20)
[2016-11-17 12:02] LABS: Glucose,Whole Blood 200 mg/dL (75-99)
[2016-11-17 14:26] LABS: Hemoglobin A1C 6.4 % (4.2-6.1)
[2016-11-17] MEDS ORDERED: IV VANCOMYCIN PER PHARMACY 1 EACH MISC MISCELLANE PRN (15:48)
[2016-11-17 16:13] LABS: Appearance,Urine Clear (Clear); Bilirubin,Urine Negative (Negative); Glucose,Urine (UA) 1+ (Negative); Ketones,Urine Negative (Negative); Leukocyte Esterase,Urine Negative (Negative); Mucus,Urine Rare /hpf; Nitrite,Urine Negative (Negative); PH, Urine 5.5 (5.0-8.0); Particle Count 685; Protein,Urine Trace (Negative); RBC,Urine 1 /hpf (0-5); Specific Gravity,Urine 1.012 (1.001-1.035); UA Billing (MACRO vs. MICRO) MICRO; Urobilinogen,Urine <2.0 mg/dL (<2.0); WBC,Urine 1 /hpf (0-5)
[2016-11-17] MEDS: COLLAGENASE 250 UNIT/GM OINTMENT 30 GM TUBE TOPICAL SCH (17:19)
[2016-11-17] MEDS: VANCOMYCIN 1,500 MG in SODIUM CHLORIDE 0.9% 250 ML IVPB SCH (17:23)
[2016-11-17 17:27] LABS: Glucose,Whole Blood 247 mg/dL (75-99)
[2016-11-17] MEDS: HYDROcodone/APAP 10-325MG 1 EACH TAB PO PRN ×2 (18:10→22:23)
[2016-11-17] MEDS: PIPERACILLIN-TAZOBACTAM 3.375 GM in DEXTROSE/WATER 1 50ML.BAG IVPB SCH ×2 (20:20→20:22)
[2016-11-17] MEDS: ATORVASTATIN 40 MG TAB PO SCH (20:22)
[2016-11-17] MEDS: amLODIPine 5 MG TAB PO SCH (20:22)
[2016-11-17] MEDS: HEPARIN SODIUM,PORCINE 5,000 UNIT/ML 1 ML VIAL SQ SCH (20:22)
[2016-11-17] MEDS: ASPIRIN 325 MG TAB PO SCH (20:22)
[2016-11-17] MEDS: MONTELUKAST 10 MG TAB PO SCH (20:23)
[2016-11-17] MEDS: LEVOTHYROXINE 50 MCG TAB PO SCH (20:23)
[2016-11-17] MEDS: BUDESONIDE 0.5 MG/2 ML NEBU INHALATION SCH (20:44)
[2016-11-17 21:57] LABS: Glucose,Whole Blood 292 mg/dL (75-99)
[2016-11-17] MEDS: MAGNESIUM SULFATE-D5W PMX 1 GM in DEXTROSE/WATER 1 100ML.BAG IVPB SCH (23:50)
[2016-11-18 00:43] LABS: Glucose,Whole Blood 300 mg/dL (75-99)
[2016-11-18] MEDS: methylPREDNISolone SOD SUCCI 125 MG/2 ML VIAL IV SCH ×4 (01:32→17:27)
[2016-11-18] MEDS: MAGNESIUM SULFATE-D5W PMX 1 GM in DEXTROSE/WATER 1 100ML.BAG IVPB SCH (01:33)
[2016-11-18] MEDS: HYDROcodone/APAP 10-325MG 1 EACH TAB PO PRN ×5 (03:57→20:48)
[2016-11-18 05:56] LABS: Glucose,Whole Blood 278 mg/dL (75-99)
[2016-11-18] MEDS: VANCOMYCIN 1,500 MG in SODIUM CHLORIDE 0.9% 250 ML IVPB SCH ×2 (06:30→20:45)
[2016-11-18] MEDS: SODIUM CHLORIDE 0.9% 1,000 ML IV SCH ×3 (06:31→20:56)
[2016-11-18] MEDS: INSULIN LISPRO (humaLOG) 300 UNIT/3 ML VIAL SQ SCH ×3 (06:32→17:27)
[2016-11-18] MEDS: LINAGLIPTIN 5 MG TABLET PO SCH (06:33)
[2016-11-18] MEDS: metFORMIN 500 MG TAB PO SCH ×2 (06:33→17:26)
[2016-11-18 06:48] LABS: Basophils % (A) 0 %; CH 29.7; CHCM 29.7; Eosinophils % (A) 0 %; HCT 32.1 % (39.0-53.0); HDW 2.52; Hypochromasia Marked; Luc # (Auto) 0.03; Luc % (Auto) 1; Lymphocytes # (A) 0.3 k/uL (1.0-4.8); Lymphocytes % (A) 6 %; MCH 30.9 pg (25.0-35.0); MCHC 30.8 g/dL (31.0-37.0); MCV 100.3 fL (80.0-100.0); Macrocytosis Slight; Monocytes # (A) 0.1 k/uL (0-1.0); Monocytes % (A) 3 %; Neutrophils % (A) 90 %; RDW 15.7 % (11.5-15.5); WBC 4.4 k/uL (3.8-10.6); WBC (Perox) 4.37
[2016-11-18 06:49] LABS: HGB 9.9 gm/dL (13.0-17.5)
[2016-11-18 06:49] LABS: ALT 57 U/L (21-72); AST 43 U/L (17-59); Alkaline Phosphatase 96 U/L (38-126); Anion Gap 7 mmol/L; Blood Urea Nitrogen 22 mg/dL (9-20); Carbon Dioxide 25 mmol/L (22-30); Chloride 108 mmol/L (98-107); Glucose 315 mg/dL (74-99); Non-African American GFR(MDRD) >60 (>60 ml/min/1.73 sqM); Potassium 5.2 mmol/L (3.5-5.1); Sodium 140 mmol/L (137-145); Total Bilirubin 0.8 mg/dL (0.2-1.3); Total Protein 5.4 g/dL (6.3-8.2)
--- NOTE | 2016-11-18 08:14 | CONS ---
DATE OF CONSULTATION: 11/17/2016 REASON FOR CONSULTATION: Fever. HISTORY OF PRESENT ILLNESS: The patient is a 56-year-old male who was recently admitted to [facility] from 10/30 to 11/06 when the patient was treated for an episode of fever. At that time was thought to be more likely a viral syndrome or related to his allopurinol medication. The patient's fever subsequently resolved. Cultures were negative and he was discharged on no antibiotic therapy. Patient said he was doing well until yesterday when he started having fever with rigors and chills. Patient also had cough but not bringing up any sputum. Patient denies having any significant chest pain, denies having any URI symptoms. Denies any abdominal pain. No diarrhea. No burning or frequency of urine. The patient did have a fever of 103.4 degrees Fahrenheit on arrival to the ER and also had some mental status change at that time. The patient did have an elevated white count 13.1. Lactic acid elevated at 3. His urine was not significantly positive. Influenza serology was negative. Patient did have a chest x-ray that was suggestive left basilar atelectasis; the patient was started on Zosyn and Levaquin. ID was consulted for further recommendation regarding antibiotic therapy. Patient did have a pressure ulcer to the sacral area that he said he developed while he was here in the hospital on the last admission and has been applying some local treatment to it, not sure about the name. The patient did have some dull pain in that area, that is 4 out of 10 and no radiation and no significant drainage from the site. REVIEW OF SYSTEMS: CONSTITUTIONAL: Positive for weakness and fever. EYES: No complaint. ENT: No complaint. RESPIRATORY: As per HPI. CARDIOVASCULAR: No complaint. GENITOURINARY: No complaint. GASTROINTESTINAL: No complaint. MUSCULOSKELETAL: As per HPI. INTEGUMENTARY: As per HPI. PSYCHOLOGIC: No complaint. ENDOCRINE: No complaint. NEUROLOGIC: No complaint. PAST MEDICAL HISTORY: Type 2 diabetes mellitus, history of pneumonia and right parapneumonic infection requiring a chest tube, infected right hand post carpal tunnel release with methicillin-resistant Staphylococcus aureus infection, shingles. PAST SURGICAL HISTORY: Cholecystectomy, coronary artery bypass grafting, bowel resection, heart catheterization, hernia repair and tonsillectomy. SOCIAL HISTORY: Patient smoked from 1989 to 1994. Admitted to cocaine and marijuana use. FAMILY HISTORY: Mother with history of cancer and gastroesophageal reflux disease and hypertension. Father with history of brain aneurysm and lung cancer. ALLERGIES: No known drug allergies. Medications currently include the patient is on [place], Norvasc, aspirin, Lipitor, Pulmicort, Duragesic patch, iron sulfate, Lasix, Neurontin, Glucotrol, heparin, Motrin, Humalog, Levaquin, Synthroid, Glucophage, Solu-Medrol, Singulair, Nitrostat, Protonix, pip-tazobactam, K-Dur. On examination, blood pressure is 134/56 with a pulse of 78, temperature 97.9, T-max is 103. He is 94% on 2 L nasal cannula. General description is a middle-age male lying in bed in no distress. No tachypnea or accessory muscle of respiration use. HEENT: Slight pallor. No scleral icterus. Oral mucous membrane slightly dry. NECK: Trachea central. There is no thyromegaly. LUNGS: Unlabored breathing. Some coarse breath sounds at base. No wheeze. HEART: S1, S2 with regular rate and rhythm. ABDOMEN: Soft. No tenderness. EXTREMITIES: No edema of the feet. Examination of the sacral area shows unstageable pressure ulcer with some necrotic tissue, very minimal surrounding erythema. No drainage. NEUROLOGICAL: The patient is awake, alert, oriented x3. Mood and affect normal. LABS: Hemoglobin is 11.4, white count 13.1 with a BUN of 24, creatinine 1. Electrolytes have been normal. Lactic acid 3. Liver enzymes slightly elevated. Urine is negative. Influenza A and B serology were negative. X-ray report as mentioned above. DIAGNOSTIC IMPRESSION AND PLAN: 1. Patient presents to the hospital with sepsis in a patient who did have a fever of 103 degrees Fahrenheit. The patient also had an elevated white count, elevated lactic acid, meeting criteria for systemic inflammatory response syndrome. Source is likely pneumonia in a patient who did have left lower lobe infiltrate and he did have congested cough, in a patient who had been recently admitted to the hospital will need to cover for resistant gram-positive as well as gram-negative pathogen especially in the patient who did have history of extensive infection to the right hand after carpal tunnel release surgery with methicillin-resistant Staphylococcus aureus that did require prolonged therapy. 2. Patient with unstageable pressure ulcer with necrotic tissue. PLAN: 1. Will try to obtain sputum for Gram stain culture and sensitivity. 2. Continue the patient on Zosyn and Levaquin; however, I will add vancomycin while awaiting for the culture to finalize. 3. We will apply Santyl to the sacral wound and keep the area off the pressure. 4. Will follow up on the clinical condition and cultures to further adjust the medication if needed. Thank you for this consultation. We will follow this patient along with you.
[2016-11-18] MEDS: POTASSIUM CHLORIDE ER 10 MEQ TAB.ER.PRT PO SCH (08:27)
[2016-11-18] MEDS: GABAPENTIN 400 MG CAP PO SCH ×4 (08:27→20:54)
[2016-11-18] MEDS: HEPARIN SODIUM,PORCINE 5,000 UNIT/ML 1 ML VIAL SQ SCH ×2 (08:28→20:56)
[2016-11-18] MEDS: LEVOFLOXACIN 750 MG TAB PO SCH (08:28)
[2016-11-18] MEDS: PANTOPRAZOLE 40 MG TABLET PO SCH ×2 (08:28→20:55)
[2016-11-18] MEDS: FERROUS SULFATE 325 MG TAB PO SCH (08:28)
[2016-11-18] MEDS: PIPERACILLIN-TAZOBACTAM 3.375 GM in DEXTROSE/WATER 1 50ML.BAG IVPB SCH ×2 (08:33→16:00)
--- NOTE | 2016-11-18 09:01 | XR ---
EXAMINATION TYPE: XR chest 2V DATE OF EXAM: 11/18/2016 7:30 AM COMPARISON: NONE INDICATION: Pneumonia TECHNIQUE: Single frontal view of the chest is obtained. FINDINGS: The heart size is normal. The pulmonary vasculature is normal. The lungs are clear. IMPRESSION: 1. No acute pulmonary process.
[2016-11-18] MEDS: COLLAGENASE 250 UNIT/GM OINTMENT 30 GM TUBE TOPICAL SCH (10:40)
[2016-11-18] MEDS: BUDESONIDE 0.5 MG/2 ML NEBU INHALATION SCH ×2 (11:37→20:37)
[2016-11-18 11:55] LABS: Glucose,Whole Blood 351 mg/dL (75-99)
[2016-11-18] MEDS ORDERED: INSULIN REGULAR 100 UNIT in SODIUM CHLORIDE 0.9% 100 ML IV SCH (12:00)
[2016-11-18] MEDS ORDERED: INSULIN REGULAR BOLUS (FROM DRIP BAG) IV ONE (12:00)
[2016-11-18 13:07] LABS: Glucose,Whole Blood 336 mg/dL (75-99)
[2016-11-18 13:40] LABS: Glucose,Whole Blood 331 mg/dL (75-99)
[2016-11-18 14:08] LABS: Glucose,Whole Blood 291 mg/dL (75-99)
[2016-11-18 14:53] LABS: Glucose,Whole Blood 263 mg/dL (75-99)
[2016-11-18 15:26] LABS: Glucose,Whole Blood 247 mg/dL (75-99)
[2016-11-18 17:04] LABS: Glucose,Whole Blood 126 mg/dL (75-99)
[2016-11-18 20:37] LABS: Glucose,Whole Blood 151 mg/dL (75-99)
--- NOTE | 2016-11-18 20:51 | PN ---
DATE OF SERVICE: 11/18/2016 He has been hemodynamically stable. He does not complain of shortness of breath. He is feeling somewhat better overall. On physical examination, blood pressure 116/57, respiratory rate 16, pulse of 72, temperature 98.6. HEENT is unremarkable. Chest is clear. Cardiovascular system reveals an S1, S2. ABDOMEN: Soft. There is no edema. Chest today shows no acute pulmonary process. IMPRESSION: 1. Pneumonia. 2. Sacral wound 3. Systemic inflammatory response. Continue Levaquin, Zosyn and vancomycin. Discontinue Solu-Medrol. Continue aerosolized steroids and Montelukast. His prognosis at this time is fair.
[2016-11-18] MEDS: MONTELUKAST 10 MG TAB PO SCH (20:55)
[2016-11-18] MEDS: amLODIPine 5 MG TAB PO SCH (20:55)
[2016-11-18] MEDS: LEVOTHYROXINE 50 MCG TAB PO SCH (20:56)
[2016-11-18] MEDS: ATORVASTATIN 40 MG TAB PO SCH (20:56)
[2016-11-18] MEDS: ASPIRIN 325 MG TAB PO SCH (20:56)
[2016-11-18] MEDS ORDERED: COLLAGENASE 250 UNIT/GM OINTMENT 30 GM TUBE TOPICAL SCH (21:00)
[2016-11-19] MEDS: PIPERACILLIN-TAZOBACTAM 3.375 GM in DEXTROSE/WATER 1 50ML.BAG IVPB SCH ×4 (01:00→23:35)
[2016-11-19] MEDS: HYDROcodone/APAP 10-325MG 1 EACH TAB PO PRN ×4 (01:30→20:52)
[2016-11-19] MEDS ORDERED: VANCOMYCIN TROUGH DUE 1 EACH MISC MISCELLANE ONE (05:00)
[2016-11-19] MEDS: VANCOMYCIN 1,500 MG in SODIUM CHLORIDE 0.9% 250 ML IVPB SCH (05:58)
[2016-11-19 06:38] LABS: Glucose,Whole Blood 236 mg/dL (75-99)
[2016-11-19 06:48] LABS: Anion Gap 10 mmol/L; Blood Urea Nitrogen 23 mg/dL (9-20); Calcium 8.1 mg/dL (8.4-10.2); Carbon Dioxide 25 mmol/L (22-30); Chloride 109 mmol/L (98-107); Glucose 233 mg/dL (74-99); Non-African American GFR(MDRD) >60 (>60 ml/min/1.73 sqM); Potassium 4.3 mmol/L (3.5-5.1); Sodium 144 mmol/L (137-145)
--- NOTE | 2016-11-19 07:08 | PN ---
DATE OF SERVICE: 11/18/2016 Reason for follow-up is: 1. Fever and a question of pneumonia. 2. Pressure ulcer. INTERVAL HISTORY: The patient overall feels better, fever pattern has improved. He has been feeling slightly better. He continues to have a cough, but not bringing up any sputum. Denies any chest pain. No abdominal pain or any diarrhea. Denies any pain in the sacral area. On examination, blood pressure is 128/72 with a pulse of 77, temperature 98.5. He is 94% on room air. General description is a middle-age male lying in bed in no distress. RESPIRATORY SYSTEM: Unlabored breathing with decreased breath sounds at the base. No wheeze. HEART: S1, S2 with regular rate and rhythm. Abdomen soft, no tenderness. Sacral wound is currently dressed up with no obvious drainage. LABS: Hemoglobin is 9.9. His white count 4.4. BUN of 22 with a creatinine 0.8. Urine has been negative. Blood cultures so far negative. DIAGNOSTIC IMPRESSION AND PLAN: Patient admitted to hospital with difficulty in breathing. He did have a cough with concern for possible left lower lobe pneumonia. The patient's fever responding to the broad spectrum antibiotic. Repeat x-ray now showing no pneumonia. The patient has no other clinical focus of infection. The patient also has a unstagable sacral pressure ulcer been that is being treated with the Santyl that we will be continued for now while awaiting for the cultures to finalize. The patient will be signed out to Dr. Hardin which the patient has known from recent admission. Continue supportive care. CHRISTY
[2016-11-19] MEDS: metFORMIN 500 MG TAB PO SCH ×2 (07:14→17:29)
[2016-11-19] MEDS: LINAGLIPTIN 5 MG TABLET PO SCH (07:14)
[2016-11-19] MEDS: INSULIN LISPRO (humaLOG) 300 UNIT/3 ML VIAL SQ SCH ×4 (07:15→21:06)
[2016-11-19] MEDS: BUDESONIDE 0.5 MG/2 ML NEBU INHALATION SCH ×2 (08:32→19:54)
[2016-11-19] MEDS: SODIUM CHLORIDE 0.9% 1,000 ML IV SCH ×2 (09:19→15:06)
[2016-11-19] MEDS: PANTOPRAZOLE 40 MG TABLET PO SCH ×2 (09:21→20:52)
[2016-11-19] MEDS: LEVOFLOXACIN 750 MG TAB PO SCH (09:21)
[2016-11-19] MEDS: GABAPENTIN 400 MG CAP PO SCH ×4 (09:21→21:19)
[2016-11-19] MEDS: POTASSIUM CHLORIDE ER 10 MEQ TAB.ER.PRT PO SCH (09:21)
[2016-11-19] MEDS: HEPARIN SODIUM,PORCINE 5,000 UNIT/ML 1 ML VIAL SQ SCH ×2 (09:21→20:55)
[2016-11-19] MEDS ORDERED: ALBUTEROL NEBULIZED 2.5 MG/3 ML INHALATION PRN (11:07)
[2016-11-19 11:13] VITALS: BMI 32.1
[2016-11-19 11:40] LABS: Glucose,Whole Blood 229 mg/dL (75-99)
[2016-11-19] MEDS: FERROUS SULFATE 325 MG TAB PO SCH (12:03)
[2016-11-19] MEDS: ALBUTEROL NEBULIZED 2.5 MG/3 ML INHALATION SCH ×3 (12:32→19:56)
[2016-11-19] MEDS ORDERED: SODIUM CHLORIDE 0.9% 1,000 ML IV SCH (16:00)
--- NOTE | 2016-11-19 16:12 | P.PN ---
Subjective Principal diagnosis: Pneumonia Patient is evaluated on selective care unit. Patient is complaining of a loose nonproductive cough. Denies increased shortness of breath. No history of chills, nausea, vomiting, chest pain, or abdominal pain. Patient reports increased swelling to bilateral lower extremities. Patient is urinating without difficulty. Patient reports good appetite. Patient had a bowel movement this morning. Afebrile. Patient is being followed by infectious disease service and continues on IV vancomycin, Zosyn, and Levaquin for suspected pneumonia. Objective - Vital Signs Vital signs: Vital Signs Temp 97.9 F 11/19/16 12:03 Pulse 62 11/19/16 12:03 Resp 18 11/19/16 12:03 BP 125/61 11/19/16 12:03 Pulse Ox 91 L 11/19/16 12:03 Intake & Output 11/18/16 11/19/16 11/19/16 18:59 06:59 18:59 Intake Total 8092.054 0176.5 1240 Output Total 1800 1000 4 Balance -170.003 62.5 1236 Weight 90.1 kg 90.1 kg Intake: IV 900 Piperacillin-Tazobactam 3 50 .375 gm In Dextrose/Water 1 50ml.bag @ 12.5 mls/hr IVPB Q8HR [facility] Rx#: [id number] Sodium Chloride 0.9% 1, 600 000 ml @ 100 mls/hr IV . Q10H [facility] Rx#:[id number] Vancomycin 1,250 mg In 250 Sodium Chloride 0.9% 250 ml @ 125 mls/hr IVPB Q12H [facility] Rx#:[id number] Intake, IV Titration 533.664 9484.5 Amount Insulin Regular 100 unit 29.997 In Sodium Chloride 0.9% 100 ml @ Titrate IV .Q0M [facility] Rx#:[id number] Piperacillin-Tazobactam 3 50 12.5 .375 gm In Dextrose/Water 1 50ml.bag @ 12.5 mls/hr IVPB Q8HR [facility] Rx#: [id number] Sodium Chloride 0.9% 1, 200 800 000 ml @ 100 mls/hr IV . Q10H [facility] Rx#:[id number] Vancomycin 1,500 mg In 250 250 Sodium Chloride 0.9% 250 ml @ 125 mls/hr IVPB Q12H [facility] Rx#:[id number] Oral 1100 340 Output: Urine 1800 1000 2 Stool 2 Other: Voiding Method Toilet Toilet Urinal Urinal # Voids 2 1 0 # Bowel Movements 2 - Exam GENERAL: Pt awake and alert, lying in bed, in no acute distress. HEAD: Atraumatic, normocephalic. EYES: Pupils equal and round. Sclera anicteric, conjunctiva are normal. ENT:Moist mucous membranes. NECK:Supple without lymphadenopathy or JVD. LUNGS: Breath sounds with coarse rhonchi throughout lung roldan. Nonproductive cough. HEART: Heart S1, S2, no S3 or S4. Regular irregular rate and rhythm. No murmurs, rubs or gallops. ABDOMEN: Soft, obese, nontender, nondistended, normoactive bowel sounds. No guarding, no rebound. EXTREMITIES: Palpable peripheral pulses. 1+ edema to bilateral ankles. No calf tenderness. NEUROLOGICAL: Pt oriented x 3. No focal deficits. Strength and sensation grossly intact. PSYCH: Cooperative. SKIN: Warm, dry. Sacral dressing dry and intact. - Labs CBC & Chem 7: 11/18/16 06:13 11/19/16 05:27 Labs: Abnormal Lab Results - Last 24 Hours (Table) 11/18/16 11/18/16 11/19/16 Range/Units 17:02 20:32 05:27 Chloride 109 H (98-107) mmol/L BUN 23 H (9-20) mg/dL Glucose 233 H (74-99) mg/dL POC Glucose (mg/dL) 126 H 151 H (75-99) mg/dL Calcium 8.1 L (8.4-10.2) mg/dL 11/19/16 11/19/16 Range/Units 06:21 11:27 Chloride (98-107) mmol/L BUN (9-20) mg/dL Glucose (74-99) mg/dL POC Glucose (mg/dL) 236 H 229 H (75-99) mg/dL Calcium (8.4-10.2) mg/dL Assessment and Plan Plan: Impression: 1. Possible Left lower lobe pneumonia, present on admission. 2. Pressure ulcer to sacrum, present on admission. 3. History of type 2 diabetes, insulin-dependent. Blood sugars slightly elevated suspect secondary to recent steroids. 4. Coronary artery disease with previous bypass and stent placements, stable. 5. 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 6. Hypertension. 7. Severe peripheral neuropathy suspect secondary to diabetes and chronic back pain. 8. History of pneumonia. 9. History of recent pancreatitis. 10. History of gout. 11. Chronic diastolic heart failure. 12. Stage II pressure ulceration on coccyx, present on admission. Plan: Continue to monitor patient. Continue current medications. Add Humalog sliding scale for better glucose control. Decrease IV fluids to 20 mL an hour. Add albuterol 4 times a day [id number]. Continue antibiotics per infectious disease recommendations. Continue to follow with pulmonary service. Continue local wound care to sacrum. Continue supportive treatment and pain management. Continue GI and DVT prophylaxis. Peak CBC and BMP in a.m. The above impression and plan have been discussed and directed by Dr. Romero. Jewell ANTHONY acting as scribe for Dr. Romero.
[2016-11-19 16:58] LABS: Glucose,Whole Blood 143 mg/dL (75-99)
--- NOTE | 2016-11-19 17:36 | P.PN ---
Subjective Principal diagnosis: Fever and shortness of breath Pleasant 56-year-old male who is well known to infectious disease service related to his recent hospital stay. At that time he had a high-grade fever associated with chills and respiratory congestion. He had body aches and significant malaise. With his high fever he actually also had some altered mental status. Through this stay he progressive improvement. He however did develop evidence of leukopenia and thrombocytopenia. This is thought to be a drug reaction from allopurinol. This was discontinued. He was treated with a course of steroid. He had rapid resolution of his symptoms and was doing well. If it discharged home he continued to improve. He was seen in the outpatient setting continuing to show improvements. His steroid taper is completed and he was doing well. However several days after the steroids completed he started to have some fevers. And again had significant fever chill and some respiratory complaints and counseling presented to Hospital. With evidence of pneumonia he was admitted the infectious diseases consultation was requested. I'm assuming care today. Patient is feeling considerably better today. Fevers have resolved Continues to have some respiratory symptoms cough is improved however. No hemoptysis or significant sputum production. Objective - Vital Signs Vital signs: Vital Signs Temp 97.8 F 11/19/16 15:23 Pulse 76 11/19/16 16:41 Resp 18 11/19/16 15:23 BP 135/71 11/19/16 15:23 Pulse Ox 96 11/19/16 15:23 Intake & Output 11/18/16 11/19/16 11/19/16 18:59 06:59 18:59 Intake Total 7615.187 0991.5 1240 Output Total 1800 1000 4 Balance -170.003 62.5 1236 Weight 90.1 kg 90.1 kg Intake: IV 900 Piperacillin-Tazobactam 3 50 .375 gm In Dextrose/Water 1 50ml.bag @ 12.5 mls/hr IVPB Q8HR [facility] Rx#: [id number] Sodium Chloride 0.9% 1, 600 000 ml @ 100 mls/hr IV . Q10H [facility] Rx#:[id number] Vancomycin 1,250 mg In 250 Sodium Chloride 0.9% 250 ml @ 125 mls/hr IVPB Q12H [facility] Rx#:[id number] Intake, IV Titration 520.417 5350.5 Amount Insulin Regular 100 unit 29.997 In Sodium Chloride 0.9% 100 ml @ Titrate IV .Q0M [facility] Rx#:[id number] Piperacillin-Tazobactam 3 50 12.5 .375 gm In Dextrose/Water 1 50ml.bag @ 12.5 mls/hr IVPB Q8HR [facility] Rx#: [id number] Sodium Chloride 0.9% 1, 200 800 000 ml @ 100 mls/hr IV . Q10H [facility] Rx#:[id number] Vancomycin 1,500 mg In 250 250 Sodium Chloride 0.9% 250 ml @ 125 mls/hr IVPB Q12H [facility] Rx#:[id number] Oral 1100 340 Output: Urine 1800 1000 2 Stool 2 Other: Voiding Method Toilet Toilet Urinal Urinal # Voids 2 1 0 # Bowel Movements 2 - Exam 54-year-old male who has complaints complains of generalized fatigue and malaise and body aches HEENT: Anicteric conjunctiva are pink and moist nasal mucosa grossly intact without significant lesions, there is no thrush. Mucosa dry Neck: The neck is supple without significant lymphadenopathy or thyromegaly. Lungs: Good bilateral air entry there are some expiratory wheezes and few basilar crackles are heard There is no significant bronchial sounds. There is no egophony or dullness. Heart: Irregular with an audible S1 and S2 no S3 soft S4 no murmur click or rub. Abdomen: Positive bowel sounds soft and nontender without palpable masses or organomegaly. There was no guarding or rebound. Extremities: The left upper extremity shows no acute difficulties, IV site is present the right wrist reveals evidence of the prior surgical intervention. The extensive prior wound of the left anterior sternoclavicular area has healed. No evidence of any erythema or tenderness at that site. There is no epitrochlear or axillary lymphadenopathy. No other lymphadenopathy is noted. Neuro: Awake alert oriented to person place and time. He is at his baseline mental status Skin evidence of the pressure ulceration on to the coccyx present on admission. With some tenderness. Please refer to the nursing photography for the ulceration. - Labs CBC & Chem 7: 11/18/16 06:13 11/19/16 05:27 Labs: Abnormal Lab Results - Last 24 Hours (Table) 11/18/16 11/19/16 11/19/16 Range/Units 20:32 05:27 06:21 Chloride 109 H (98-107) mmol/L BUN 23 H (9-20) mg/dL Glucose 233 H (74-99) mg/dL POC Glucose (mg/dL) 151 H 236 H (75-99) mg/dL Calcium 8.1 L (8.4-10.2) mg/dL 11/19/16 11/19/16 Range/Units 11:27 16:53 Chloride (98-107) mmol/L BUN (9-20) mg/dL Glucose (74-99) mg/dL POC Glucose (mg/dL) 229 H 143 H (75-99) mg/dL Calcium (8.4-10.2) mg/dL Laboratory Results WBC 4.4 k/uL (3.8-10.6) 11/18/16 06:13 RBC 3.20 m/uL (4.30-5.90) L 11/18/16 06:13 Hgb 9.9 gm/dL (13.0-17.5) L D 11/18/16 06:13 Hct 32.1 % (39.0-53.0) L 11/18/16 06:13 MCV 100.3 fL (80.0-100.0) H 11/18/16 06:13 MCH 30.9 pg (25.0-35.0) 11/18/16 06:13 MCHC 30.8 g/dL (31.0-37.0) L 11/18/16 06:13 RDW 15.7 % (11.5-15.5) H 11/18/16 06:13 Plt Count 152 k/uL (150-450) 11/18/16 06:13 Neutrophils % 90 % 11/18/16 06:13 Lymphocytes % 6 % 11/18/16 06:13 Monocytes % 3 % 11/18/16 06:13 Eosinophils % 0 % 11/18/16 06:13 Basophils % 0 % 11/18/16 06:13 Neutrophils # 4.0 k/uL (1.3-7.7) 11/18/16 06:13 Lymphocytes # 0.3 k/uL (1.0-4.8) L 11/18/16 06:13 Monocytes # 0.1 k/uL (0-1.0) 11/18/16 06:13 Eosinophils # 0.0 k/uL (0-0.7) 11/18/16 06:13 Basophils # 0.0 k/uL (0-0.2) 11/18/16 06:13 Hypochromasia Marked 11/18/16 06:13 Anisocytosis Slight 11/17/16 03:20 Macrocytosis Slight 11/18/16 06:13 Sodium 144 mmol/L (137-145) 11/19/16 05:27 Potassium 4.3 mmol/L (3.5-5.1) 11/19/16 05:27 Chloride 109 mmol/L (98-107) H 11/19/16 05:27 Carbon Dioxide 25 mmol/L (22-30) 11/19/16 05:27 Anion Gap 10 mmol/L 11/19/16 05:27 BUN 23 mg/dL (9-20) H 11/19/16 05:27 Creatinine 0.88 mg/dL (0.66-1.25) 11/19/16 05:27 Est GFR (MDRD) Af Amer >60 (>60 ml/min/1.73 sqM) 11/19/16 05:27 Est GFR (MDRD) Non-Af >60 (>60 ml/min/1.73 sqM) 11/19/16 05:27 Glucose 233 mg/dL (74-99) H 11/19/16 05:27 POC Glucose (mg/dL) 143 mg/dL (75-99) H 11/19/16 16:53 POC Glu Compliance Monitor ID Nasreen Marie 11/19/16 16:[address] Glu mg/dL 137 mg/dL 11/17/16 03:20 Hemoglobin A1c 6.4 % (4.2-6.1) H 11/17/16 03:20 Plasma Lactic Acid Freddy 3.0 mmol/L (0.7-2.0) H* 11/18/16 00:10 Calcium 8.1 mg/dL (8.4-10.2) L 11/19/16 05:27 Magnesium 1.8 mg/dL (1.6-2.3) 11/18/16 06:13 Total Bilirubin 0.8 mg/dL (0.2-1.3) 11/18/16 06:10 AST 43 U/L (17-59) 11/18/16 06:10 ALT 57 U/L (21-72) 11/18/16 06:10 Alkaline Phosphatase 96 U/L (38-126) 11/18/16 06:10 Total Creatine Kinase 919 U/L (55-170) H 11/17/16 03:20 CK-MB (CK-2) 7.2 ng/mL (0.0-2.4) H* 11/17/16 03:20 CK-MB (CK-2) Rel Index 0.8 11/17/16 03:20 Total Protein 5.4 g/dL (6.3-8.2) L 11/18/16 06:10 Albumin 2.6 g/dL (3.5-5.0) L 11/18/16 06:10 Urine Color Yellow 11/17/16 15:45 Urine Appearance Clear (Clear) 11/17/16 15:45 Urine pH 5.5 (5.0-8.0) 11/17/16 15:45 Ur Specific [place] 1.012 (1.001-1.035) 11/17/16 15:45 Urine Protein Trace (Negative) H 11/17/16 15:45 Urine Glucose (UA) 1+ (Negative) H 11/17/16 15:45 Urine Ketones Negative (Negative) 11/17/16 15:45 Urine Blood Small (Negative) H 11/17/16 15:45 Urine Nitrate Negative (Negative) 11/17/16 15:45 Urine Bilirubin Negative (Negative) 11/17/16 15:45 Urine Urobilinogen <2.0 mg/dL (<2.0) 11/17/16 15:45 Ur Leukocyte Esterase Negative (Negative) 11/17/16 15:45 Urine RBC 1 /hpf (0-5) 11/17/16 15:45 Urine WBC 1 /hpf (0-5) 11/17/16 15:45 Urine Mucus Rare /hpf (None) H 11/17/16 15:45 Vancomycin Trough 22.0 ug/mL 11/19/16 05:27 Influenza Type A RNA Not Detected (Not Detectd) 11/17/16 03:20 Influenza Type B (PCR) Not Detected (Not Detectd) 11/17/16 03:20 Microbiology 03/04/17 03:20 Blood Blood Culture - Preliminary No Growth after 48 hours - Imaging and Cardiology Chest x-ray: image reviewed (No acute pneumonia) Assessment and Plan (1) Febrile illness, acute Narrative/Plan: 56-year-old male presents to hospital with high-grade fever and chill and some respiratory symptoms. But evidence of an abnormal chest x-ray with potential left lower lobe infiltrate. No being treated with antibiotic therapy with Zosyn, Levaquin and vancomycin with his recent hospital stay and concerns for pneumonia. He is feeling somewhat better. He did receive several doses of Solu-Medrol. This is now been discontinued. He definitely feels better today. Fever has resolved. The chest x-rays reviewed and does not have an extensive pneumonia. If further improved will then de-escalate antibiotic therapy to Levaquin to complete his course of therapy. During his last stay he had significant difficulties with fever, body aches, leukopenia and thrombocytopenia. Was thought to be due to a drug reaction from allopurinol. He was improving. With the current recurrence there is concern that there could be ongoing medication effect potentially from a different agent versus the possibility of underlying autoimmune disease. S2 the buttocks ulceration will utilize the optifoam foam sacral dressing. Status: Acute (2) Left lower lobe pneumonia Status: Acute (3) Diabetes Status: Acute
[2016-11-19] MEDS ORDERED: VANCOMYCIN 1,250 MG in SODIUM CHLORIDE 0.9% 250 ML IVPB SCH (18:00)
[2016-11-19] MEDS: VANCOMYCIN 1,250 MG in SODIUM CHLORIDE 0.9% 250 ML IVPB SCH (20:42)
[2016-11-19] MEDS: amLODIPine 5 MG TAB PO SCH (20:52)
[2016-11-19] MEDS: LEVOTHYROXINE 50 MCG TAB PO SCH (20:52)
[2016-11-19] MEDS: MONTELUKAST 10 MG TAB PO SCH (20:52)
[2016-11-19] MEDS: ATORVASTATIN 40 MG TAB PO SCH (20:52)
[2016-11-19] MEDS: ASPIRIN 325 MG TAB PO SCH (20:52)
[2016-11-19 21:18] LABS: Glucose,Whole Blood 256 mg/dL (75-99)
[2016-11-20] MEDS: HYDROcodone/APAP 10-325MG 1 EACH TAB PO PRN ×6 (01:30→23:50)
[2016-11-20] MEDS: VANCOMYCIN 1,250 MG in SODIUM CHLORIDE 0.9% 250 ML IVPB SCH (05:27)
[2016-11-20 06:01] LABS: Basophils % (A) 0 %; CH 29.3; CHCM 30.9; Eosinophils % (A) 0 %; HCT 32.2 % (39.0-53.0); HGB 10.1 gm/dL (13.0-17.5); Hypochromasia Moderate; Luc # (Auto) 0.08; Luc % (Auto) 2; Lymphocytes # (A) 0.6 k/uL (1.0-4.8); Lymphocytes % (A) 13 %; MCH 29.9 pg (25.0-35.0); MCHC 31.4 g/dL (31.0-37.0); MCV 95.4 fL (80.0-100.0); Mean Platelet Volume 7.8; Monocytes # (A) 0.3 k/uL (0-1.0); Monocytes % (A) 7 %; Neutrophils # (A) 3.4 k/uL (1.3-7.7); Neutrophils % (A) 79 %; RBC 3.38 m/uL (4.30-5.90); RDW 15.6 % (11.5-15.5); WBC 4.3 k/uL (3.8-10.6); WBC (Perox) 4.49
[2016-11-20 06:08] LABS: Anion Gap 9 mmol/L; Blood Urea Nitrogen 18 mg/dL (9-20); Calcium 8.4 mg/dL (8.4-10.2); Carbon Dioxide 31 mmol/L (22-30); Chloride 104 mmol/L (98-107); Glucose 134 mg/dL (74-99); Non-African American GFR(MDRD) >60 (>60 ml/min/1.73 sqM); Potassium 3.2 mmol/L (3.5-5.1); Sodium 144 mmol/L (137-145)
[2016-11-20 06:10] LABS: Glucose,Whole Blood 113 mg/dL (75-99)
[2016-11-20] MEDS: INSULIN LISPRO (humaLOG) 300 UNIT/3 ML VIAL SQ SCH ×4 (06:39→21:02)
[2016-11-20] MEDS: metFORMIN 500 MG TAB PO SCH ×2 (06:51→17:52)
[2016-11-20] MEDS: LINAGLIPTIN 5 MG TABLET PO SCH (06:51)
[2016-11-20] MEDS: BUDESONIDE 0.5 MG/2 ML NEBU INHALATION SCH ×2 (08:26→19:58)
[2016-11-20] MEDS: ALBUTEROL NEBULIZED 2.5 MG/3 ML INHALATION SCH ×4 (08:26→19:58)
[2016-11-20] MEDS: HEPARIN SODIUM,PORCINE 5,000 UNIT/ML 1 ML VIAL SQ SCH ×2 (08:48→20:59)
[2016-11-20] MEDS: LEVOFLOXACIN 750 MG TAB PO SCH (08:48)
[2016-11-20] MEDS: GABAPENTIN 400 MG CAP PO SCH ×4 (08:48→20:58)
[2016-11-20] MEDS: PANTOPRAZOLE 40 MG TABLET PO SCH ×2 (08:49→20:58)
[2016-11-20] MEDS: POTASSIUM CHLORIDE ER 20 MEQ TAB.ER PO SCH ×5 (08:49→17:51)
[2016-11-20] MEDS ORDERED: POTASSIUM CHLORIDE ER 10 MEQ TAB.ER.PRT PO SCH (09:00)
[2016-11-20] MEDS ORDERED: Potassium Replacement Protocol 1 EACH MISC MISCELLANE PRN (09:11)
[2016-11-20] MEDS ORDERED: Magnesium Replacement Protocol 1 EACH MISC MISCELLANE PRN (09:49)
[2016-11-20] MEDS: MAGNESIUM SULFATE-D5W PMX 1 GM in DEXTROSE/WATER 1 100ML.BAG IVPB SCH ×3 (10:12→12:21)
--- NOTE | 2016-11-20 10:52 | P.PN ---
Subjective Principal diagnosis: Pneumonia Patient is evaluated on selective care unit. Patient is reports improvement in breathing and states he has been having a productive cough with whitish phlegm since yesterday. No history of fevers, chills, nausea, vomiting, chest pain, or abdominal pain. Patient is urinating without difficulty. Patient reports good appetite. Patient reports he has been up in the room walking with assist of walker. Infectious disease service is following patient and IV vancomycin and IV Zosyn has been discontinued. Patient continues on Levaquin. Objective - Vital Signs Vital signs: Vital Signs Temp 97.9 F 11/20/16 08:54 Pulse 60 11/20/16 08:54 Resp 18 11/20/16 08:54 BP 117/91 11/20/16 08:54 Pulse Ox 96 11/20/16 08:54 Intake & Output 11/19/16 11/20/16 11/20/16 18:59 06:59 18:59 Intake Total 1360 1010 Output Total 5 3000 Balance 1355 -1990 Weight 90.1 kg 85.8 kg Intake: IV 900 300 Piperacillin-Tazobactam 3 50 50 .375 gm In Dextrose/Water 1 50ml.bag @ 12.5 mls/hr IVPB Q8HR [facility] Rx#: [id number] Sodium Chloride 0.9% 1, 600 000 ml @ 100 mls/hr IV . Q10H [facility] Rx#:[id number] Vancomycin 1,250 mg In 250 250 Sodium Chloride 0.9% 250 ml @ 125 mls/hr IVPB Q12H [facility] Rx#:[id number] Intake, IV Titration 410 Amount Sodium Chloride 0.9% 1, 160 000 ml @ 20 mls/hr IV . Q24H [facility] Rx#:[id number] Vancomycin 1,500 mg In 250 Sodium Chloride 0.9% 250 ml @ 125 mls/hr IVPB Q12H [facility] Rx#:[id number] Oral 460 300 Output: Urine 3 3000 Stool 2 Other: Voiding Method Toilet Toilet Toilet Urinal Urinal Urinal # Voids 0 1 - Exam GENERAL: Pt awake and alert, lying in bed, in no acute distress. HEAD: Atraumatic, normocephalic. EYES: Pupils equal and round. Sclera anicteric, conjunctiva are normal. ENT:Moist mucous membranes. NECK:Supple without lymphadenopathy or JVD. LUNGS: Breath sounds clear throughout lung roldan. HEART: Heart S1, S2, no S3 or S4. Regular irregular rate and rhythm. No murmurs, rubs or gallops. ABDOMEN: Soft, obese, nontender, nondistended, normoactive bowel sounds. No guarding, no rebound. EXTREMITIES: Palpable peripheral pulses. 1+ edema to bilateral ankles. No calf tenderness. NEUROLOGICAL: Pt oriented x 3. No focal deficits. Strength and sensation grossly intact. PSYCH: Cooperative. SKIN: Warm, dry. Sacral dressing dry and intact. - Labs CBC & Chem 7: 11/20/16 05:36 11/20/16 05:36 Labs: Abnormal Lab Results - Last 24 Hours (Table) 11/19/16 11/19/16 11/19/16 Range/Units 11:27 16:53 21:06 RBC (4.30-5.90) m/uL Hgb (13.0-17.5) gm/dL Hct (39.0-53.0) % RDW (11.5-15.5) % Lymphocytes # (1.0-4.8) k/uL Potassium (3.5-5.1) mmol/L Carbon Dioxide (22-30) mmol/L Glucose (74-99) mg/dL POC Glucose (mg/dL) 229 H 143 H 256 H (75-99) mg/dL Magnesium (1.6-2.3) mg/dL 11/20/16 11/20/16 11/20/16 Range/Units 05:36 05:36 05:36 RBC 3.38 L (4.30-5.90) m/uL Hgb 10.1 L (13.0-17.5) gm/dL Hct 32.2 L (39.0-53.0) % RDW 15.6 H (11.5-15.5) % Lymphocytes # 0.6 L (1.0-4.8) k/uL Potassium 3.2 L (3.5-5.1) mmol/L Carbon Dioxide 31 H (22-30) mmol/L Glucose 134 H (74-99) mg/dL POC Glucose (mg/dL) (75-99) mg/dL Magnesium 1.4 L (1.6-2.3) mg/dL 11/20/16 Range/Units 06:08 RBC (4.30-5.90) m/uL Hgb (13.0-17.5) gm/dL Hct (39.0-53.0) % RDW (11.5-15.5) % Lymphocytes # (1.0-4.8) k/uL Potassium (3.5-5.1) mmol/L Carbon Dioxide (22-30) mmol/L Glucose (74-99) mg/dL POC Glucose (mg/dL) 113 H (75-99) mg/dL Magnesium (1.6-2.3) mg/dL Assessment and Plan Plan: Impression: 1. Possible left lower lobe pneumonia, present on admission. 2. Pressure ulcer to sacrum, present on admission. 3. History of type 2 diabetes, insulin-dependent. Blood sugars slightly elevated suspect secondary to recent steroids. 4. Coronary artery disease with previous bypass and stent placements, stable. 5. 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 6. Hypertension. 7. Severe peripheral neuropathy suspect secondary to diabetes and chronic back pain. 8. History of pneumonia. 9. History of recent pancreatitis. 10. History of gout. 11. Chronic diastolic heart failure. 12. Stage II pressure ulceration on coccyx, present on admission. 13. Hypokalemia. Potassium 3.2. 14. Hypomagnesemia. Magnesium 1.4. Plan: Continue to monitor patient. Continue current medications. Replace electrolytes per protocol. Continue Levaquin per infectious disease recommendations. Continue local wound care to sacrum. Continue supportive treatment and pain management. Continue GI and DVT prophylaxis. Repeat CBC and BMP in a.m. The above impression and plan have been discussed and directed by Dr. Romero. Jewell ANTHONY acting as scribe for Dr. Romero.
[2016-11-20] MEDS: FERROUS SULFATE 325 MG TAB PO SCH (11:11)
[2016-11-20 15:27] VITALS: RESP 16
[2016-11-20] MEDS ORDERED: INFLUENZA VACCINE (3YR+) 60 MCG/0.5 ML SYRINGE IM ONE (15:55)
[2016-11-20] MEDS ORDERED: PNEUMOCOCCAL VACC-PNEUMOVAX 23 25 MCG/0.5 ML VIAL IM ONE (15:55)
[2016-11-20 16:35] LABS: Glucose,Whole Blood 102 mg/dL (75-99)
--- NOTE | 2016-11-20 20:11 | P.PN ---
Subjective Principal diagnosis: Fever and shortness of breath Pleasant 56-year-old male who is well known to infectious disease service related to his recent hospital stay. At that time he had a high-grade fever associated with chills and respiratory congestion. He had body aches and significant malaise. With his high fever he actually also had some altered mental status. Through this stay he progressive improvement. He however did develop evidence of leukopenia and thrombocytopenia. This is thought to be a drug reaction from allopurinol. This was discontinued. He was treated with a course of steroid. He had rapid resolution of his symptoms and was doing well. If it discharged home he continued to improve. He was seen in the outpatient setting continuing to show improvements. His steroid taper is completed and he was doing well. However several days after the steroids completed he started to have some fevers. And again had significant fever chill and some respiratory complaints and counseling presented to Hospital. With evidence of pneumonia he was admitted the infectious diseases consultation was requested. I'm assuming care today. Patient is feeling considerably better today. Fevers have resolved The respiratory symptoms have improved. Less cough. Lesch short of breath. No hemoptysis or significant sputum production. Objective - Vital Signs Vital signs: Vital Signs Temp 97.4 F L 11/20/16 15:00 Pulse 70 11/20/16 19:58 Resp 16 11/20/16 16:00 BP 139/73 11/20/16 15:00 Pulse Ox 96 11/20/16 15:00 Intake & Output 11/20/16 11/20/16 11/21/16 06:59 18:59 06:59 Intake Total 1010 360 Output Total 3000 1501 Balance Weight 85.8 kg 85.8 kg Intake: IV 300 Piperacillin-Tazobactam 3 50 .375 gm In Dextrose/Water 1 50ml.bag @ 12.5 mls/hr IVPB Q8HR [facility] Rx#: [id number] Vancomycin 1,250 mg In 250 Sodium Chloride 0.9% 250 ml @ 125 mls/hr IVPB Q12H [facility] Rx#:[id number] Intake, IV Titration 410 Amount Sodium Chloride 0.9% 1, 160 000 ml @ 20 mls/hr IV . Q24H [facility] Rx#:[id number] Vancomycin 1,500 mg In 250 Sodium Chloride 0.9% 250 ml @ 125 mls/hr IVPB Q12H [facility] Rx#:[id number] Oral 300 360 Output: Urine 3000 1500 Stool 1 Other: Voiding Method Toilet Toilet Urinal Urinal # Voids 1 1 - Exam 54-year-old male who has complaints complains of generalized fatigue and malaise and body aches HEENT: Anicteric conjunctiva are pink and moist nasal mucosa grossly intact without significant lesions, there is no thrush. Mucosa dry Neck: The neck is supple without significant lymphadenopathy or thyromegaly. Lungs: Good bilateral air entry there are some expiratory wheezes and few basilar crackles are heard There is no significant bronchial sounds. There is no egophony or dullness. Heart: Irregular with an audible S1 and S2 no S3 soft S4 no murmur click or rub. Abdomen: Positive bowel sounds soft and nontender without palpable masses or organomegaly. There was no guarding or rebound. Extremities: The left upper extremity shows no acute difficulties, IV site is present the right wrist reveals evidence of the prior surgical intervention. The extensive prior wound of the left anterior sternoclavicular area has healed. No evidence of any erythema or tenderness at that site. There is no epitrochlear or axillary lymphadenopathy. No other lymphadenopathy is noted. Neuro: Awake alert oriented to person place and time. He is at his baseline mental status Skin evidence of the pressure ulceration on to the coccyx present on admission. With some tenderness. Please refer to the nursing photography for the ulceration. - Labs CBC & Chem 7: 11/20/16 05:36 11/20/16 19:07 Labs: Abnormal Lab Results - Last 24 Hours (Table) 11/19/16 11/20/16 11/20/16 Range/Units 21:06 05:36 05:36 RBC 3.38 L (4.30-5.90) m/uL Hgb 10.1 L (13.0-17.5) gm/dL Hct 32.2 L (39.0-53.0) % RDW 15.6 H (11.5-15.5) % Lymphocytes # 0.6 L (1.0-4.8) k/uL Potassium 3.2 L (3.5-5.1) mmol/L Carbon Dioxide 31 H (22-30) mmol/L Glucose 134 H (74-99) mg/dL POC Glucose (mg/dL) 256 H (75-99) mg/dL Magnesium (1.6-2.3) mg/dL 11/20/16 11/20/16 11/20/16 Range/Units 05:36 06:08 15:06 RBC (4.30-5.90) m/uL Hgb (13.0-17.5) gm/dL Hct (39.0-53.0) % RDW (11.5-15.5) % Lymphocytes # (1.0-4.8) k/uL Potassium 3.3 L (3.5-5.1) mmol/L Carbon Dioxide (22-30) mmol/L Glucose (74-99) mg/dL POC Glucose (mg/dL) 113 H (75-99) mg/dL Magnesium 1.4 L (1.6-2.3) mg/dL 11/20/16 Range/Units 16:33 RBC (4.30-5.90) m/uL Hgb (13.0-17.5) gm/dL Hct (39.0-53.0) % RDW (11.5-15.5) % Lymphocytes # (1.0-4.8) k/uL Potassium (3.5-5.1) mmol/L Carbon Dioxide (22-30) mmol/L Glucose (74-99) mg/dL POC Glucose (mg/dL) 102 H (75-99) mg/dL Magnesium (1.6-2.3) mg/dL Laboratory Results WBC 4.3 k/uL (3.8-10.6) 11/20/16 05:36 RBC 3.38 m/uL (4.30-5.90) L 11/20/16 05:36 Hgb 10.1 gm/dL (13.0-17.5) L 11/20/16 05:36 Hct 32.2 % (39.0-53.0) L 11/20/16 05:36 MCV 95.4 fL (80.0-100.0) 11/20/16 05:36 MCH 29.9 pg (25.0-35.0) 11/20/16 05:36 MCHC 31.4 g/dL (31.0-37.0) 11/20/16 05:36 RDW 15.6 % (11.5-15.5) H 11/20/16 05:36 Plt Count 173 k/uL (150-450) 11/20/16 05:36 Neutrophils % 79 % 11/20/16 05:36 Lymphocytes % 13 % 11/20/16 05:36 Monocytes % 7 % 11/20/16 05:36 Eosinophils % 0 % 11/20/16 05:36 Basophils % 0 % 11/20/16 05:36 Neutrophils # 3.4 k/uL (1.3-7.7) 11/20/16 05:36 Lymphocytes # 0.6 k/uL (1.0-4.8) L 11/20/16 05:36 Monocytes # 0.3 k/uL (0-1.0) 11/20/16 05:36 Eosinophils # 0.0 k/uL (0-0.7) 11/20/16 05:36 Basophils # 0.0 k/uL (0-0.2) 11/20/16 05:36 Hypochromasia Moderate 11/20/16 05:36 Anisocytosis Slight 11/17/16 03:20 Macrocytosis Slight 11/18/16 06:13 Sodium 144 mmol/L (137-145) 11/20/16 05:36 Potassium 3.8 mmol/L (3.5-5.1) 11/20/16 19:07 Chloride 104 mmol/L (98-107) 11/20/16 05:36 Carbon Dioxide 31 mmol/L (22-30) H 11/20/16 05:36 Anion Gap 9 mmol/L 11/20/16 05:36 BUN 18 mg/dL (9-20) 11/20/16 05:36 Creatinine 0.80 mg/dL (0.66-1.25) 11/20/16 05:36 Est GFR (MDRD) Af Amer >60 (>60 ml/min/1.73 sqM) 11/20/16 05:36 Est GFR (MDRD) Non-Af >60 (>60 ml/min/1.73 sqM) 11/20/16 05:36 Glucose 134 mg/dL (74-99) H 11/20/16 05:36 POC Glucose (mg/dL) 102 mg/dL (75-99) H 11/20/16 16:33 POC Glu [employer] ID Jennifer Matta 11/20/16 16:[address] Glu mg/dL 137 mg/dL 11/17/16 03:20 Hemoglobin A1c 6.4 % (4.2-6.1) H 11/17/16 03:20 Plasma Lactic Acid Freddy 3.0 mmol/L (0.7-2.0) H* 11/18/16 00:10 Calcium 8.4 mg/dL (8.4-10.2) 11/20/16 05:36 Magnesium 1.4 mg/dL (1.6-2.3) L 11/20/16 05:36 Total Bilirubin 0.8 mg/dL (0.2-1.3) 11/18/16 06:10 AST 43 U/L (17-59) 11/18/16 06:10 ALT 57 U/L (21-72) 11/18/16 06:10 Alkaline Phosphatase 96 U/L (38-126) 11/18/16 06:10 Total Creatine Kinase 919 U/L (55-170) H 11/17/16 03:20 CK-MB (CK-2) 7.2 ng/mL (0.0-2.4) H* 11/17/16 03:20 CK-MB (CK-2) Rel Index 0.8 11/17/16 03:20 Total Protein 5.4 g/dL (6.3-8.2) L 11/18/16 06:10 Albumin 2.6 g/dL (3.5-5.0) L 11/18/16 06:10 Urine Color Yellow 11/17/16 15:45 Urine Appearance Clear (Clear) 11/17/16 15:45 Urine pH 5.5 (5.0-8.0) 11/17/16 15:45 Ur Specific [place] 1.012 (1.001-1.035) 11/17/16 15:45 Urine Protein Trace (Negative) H 11/17/16 15:45 Urine Glucose (UA) 1+ (Negative) H 11/17/16 15:45 Urine Ketones Negative (Negative) 11/17/16 15:45 Urine Blood Small (Negative) H 11/17/16 15:45 Urine Nitrate Negative (Negative) 11/17/16 15:45 Urine Bilirubin Negative (Negative) 11/17/16 15:45 Urine Urobilinogen <2.0 mg/dL (<2.0) 11/17/16 15:45 Ur Leukocyte Esterase Negative (Negative) 11/17/16 15:45 Urine RBC 1 /hpf (0-5) 11/17/16 15:45 Urine WBC 1 /hpf (0-5) 11/17/16 15:45 Urine Mucus Rare /hpf (None) H 11/17/16 15:45 Vancomycin Trough 22.0 ug/mL 11/19/16 05:27 Influenza Type A RNA Not Detected (Not Detectd) 11/17/16 03:20 Influenza Type B (PCR) Not Detected (Not Detectd) 11/17/16 03:20 Microbiology 11/17/16 03:20 Blood Blood Culture - Preliminary No Growth after 72 hours - Imaging and Cardiology Chest x-ray: image reviewed (Improvement) Assessment and Plan (1) Febrile illness, acute Narrative/Plan: 56-year-old male presents to hospital with high-grade fever and chill and some respiratory symptoms. But evidence of an abnormal chest x-ray with potential left lower lobe infiltrate. No being treated with antibiotic therapy with Zosyn, Levaquin and vancomycin with his recent hospital stay and concerns for pneumonia. He is feeling somewhat better. He did receive several doses of Solu-Medrol. This is now been discontinued. He definitely feels better today. Fever has resolved. The chest x-rays reviewed and does not have an extensive pneumonia. With the improvement antibiotic therapy with D escalated to Levaquin as monotherapy. He continues to do well. We'll plan 5 days of at home. Prescription is sent. During his last stay he had significant difficulties with fever, body aches, leukopenia and thrombocytopenia. Was thought to be due to a drug reaction from allopurinol. He was improving. With the current recurrence there is concern that there could be ongoing medication effect potentially from a different agent versus the possibility of underlying autoimmune disease. The pressure ulceration was treated with the foam dressing. He finds it too large for his size. We'll have to have a different dressing for home care. Following the office for further care. Status: Acute (2) Left lower lobe pneumonia Status: Acute (3) Diabetes Status: Acute
[2016-11-20 20:42] LABS: Glucose,Whole Blood 122 mg/dL (75-99)
[2016-11-20 20:52] LABS: Glucose,Whole Blood 118 mg/dL (75-99)
[2016-11-20] MEDS: MONTELUKAST 10 MG TAB PO SCH (20:58)
[2016-11-20] MEDS: LEVOTHYROXINE 50 MCG TAB PO SCH (20:58)
[2016-11-20] MEDS: amLODIPine 5 MG TAB PO SCH (20:58)
[2016-11-20] MEDS: ATORVASTATIN 40 MG TAB PO SCH (20:58)
[2016-11-20] MEDS: ASPIRIN 325 MG TAB PO SCH (20:59)
[2016-11-20] MEDS ORDERED: POTASSIUM CHLORIDE ER 20 MEQ TAB.ER PO STA (21:28)
[2016-11-21] MEDS: HYDROcodone/APAP 10-325MG 1 EACH TAB PO PRN ×3 (04:44→13:18)
[2016-11-21 07:34] LABS: Glucose,Whole Blood 86 mg/dL (75-99)
[2016-11-21] MEDS: ALBUTEROL NEBULIZED 2.5 MG/3 ML INHALATION SCH ×2 (07:50→11:26)
[2016-11-21] MEDS: BUDESONIDE 0.5 MG/2 ML NEBU INHALATION SCH (07:50)
[2016-11-21 08:20] VITALS: BP 148/69; TEMP 97
[2016-11-21] MEDS: GABAPENTIN 400 MG CAP PO SCH ×2 (08:23→13:19)
[2016-11-21] MEDS: LEVOFLOXACIN 750 MG TAB PO SCH (08:24)
[2016-11-21] MEDS: POTASSIUM CHLORIDE ER 20 MEQ TAB.ER PO SCH (08:24)
[2016-11-21] MEDS: LINAGLIPTIN 5 MG TABLET PO SCH (08:24)
[2016-11-21] MEDS: metFORMIN 500 MG TAB PO SCH (08:24)
[2016-11-21] MEDS: PANTOPRAZOLE 40 MG TABLET PO SCH (08:24)
[2016-11-21] MEDS: INSULIN LISPRO (humaLOG) 300 UNIT/3 ML VIAL SQ SCH ×2 (08:25→13:19)
[2016-11-21] MEDS: HEPARIN SODIUM,PORCINE 5,000 UNIT/ML 1 ML VIAL SQ SCH (08:25)
[2016-11-21 08:51] LABS: Basophils % (A) 0 %; CH 29.4; CHCM 30.8; Eosinophils # (A) 0.1 k/uL (0-0.7); Eosinophils % (A) 2 %; HCT 37.8 % (39.0-53.0); HDW 2.76; HGB 11.4 gm/dL (13.0-17.5); Hypochromasia Moderate; Luc # (Auto) 0.08; Luc % (Auto) 2; Lymphocytes # (A) 0.8 k/uL (1.0-4.8); Lymphocytes % (A) 16 %; MCH 28.9 pg (25.0-35.0); MCHC 30.2 g/dL (31.0-37.0); MCV 95.8 fL (80.0-100.0); Mean Platelet Volume 8.1; Monocytes # (A) 0.2 k/uL (0-1.0); Monocytes % (A) 5 %; Neutrophils # (A) 3.6 k/uL (1.3-7.7); Neutrophils % (A) 75 %; RBC 3.95 m/uL (4.30-5.90); RDW 15.8 % (11.5-15.5); WBC 4.8 k/uL (3.8-10.6); WBC (Perox) 5.16
[2016-11-21 08:57] LABS: Anion Gap 12 mmol/L; Blood Urea Nitrogen 12 mg/dL (9-20); Calcium 8.8 mg/dL (8.4-10.2); Carbon Dioxide 30 mmol/L (22-30); Chloride 101 mmol/L (98-107); Glucose 161 mg/dL (74-99); Magnesium 1.4 mg/dL (1.6-2.3); Non-African American GFR(MDRD) >60 (>60 ml/min/1.73 sqM); Potassium 4.1 mmol/L (3.5-5.1); Sodium 143 mmol/L (137-145)
[2016-11-21] MEDS ORDERED: Magnesium Replacement Protocol 1 EACH MISC MISCELLANE PRN (10:29)
[2016-11-21 11:40] VITALS: PULSE 72
[2016-11-21] MEDS: MAGNESIUM SULFATE-D5W PMX 1 GM in DEXTROSE/WATER 1 100ML.BAG IVPB SCH ×3 (11:40→13:40)
[2016-11-21 12:21] LABS: Glucose,Whole Blood 80 mg/dL (75-99)
[2016-11-21] MEDS: FERROUS SULFATE 325 MG TAB PO SCH (13:18)
--- NOTE | 2016-11-21 14:55 | P.DS ---
Providers Date of admission: 11/17/16 05:17 Expected date of discharge: 11/21/16 Attending physician: Bautista Romero Consults: 11/19/16 09:13 Consult Physician Routine Consulting Provider: Bran Hardin Reason/Comments: decubitus ulcer, pneumonia Do you want consulting provider notified?: Already Contacted Primary care physician: Bautista Romero [facility] Course: Patient is a 56-year-old white male who presented to the emergency department with complaints of cough, high fevers up to 104, and mild confusion. Patient was recently treated at [facility] from 10/30/2016 to 2016 where he was treated for an episode of fever that to more of a viral syndrome or related to his allopurinol medication. At that time, cultures were negative and he was discharged home on no antibiotic therapy. Patient was doing well until the day before mission where he started having fevers, rigors, chills associated with cough. Chest x-ray was suggestive of left lower lobe pneumonia. Infectious disease consult was requested for antibiotic management. Patient also presented with a pressure ulcer to the sacral area that he presented with on admission on his prior visit. Patient improved significantly during his hospital stay and was deemed stable for discharge to home with close follow-up in the outpatient setting. Discharge diagnoses: 1. Sepsis with metabolic encephalopathy, present on admission, suspect secondary to left lower lobe pneumonia. 2. Stage II pressure ulcer to coccyx, present on admission. 3. Diabetes mellitus type 2, insulin-dependent. 4. Coronary artery disease with previous bypass and stent placements, stable. 5. 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 6. Hypertension. 7. Severe peripheral neuropathy suspect secondary to diabetes and chronic back pain. 8. History of pneumonia. 9. History of recent pancreatitis. 10. History of gout. 11. Chronic diastolic heart failure. 13. Hypomagnesemia. The above impression and plan have been discussed and directed by Dr. Romero. Jewell ANTHONY acting as scribe for Dr. Romero. Pertinent Studies: Chest x-ray; EKG Patient Condition at Discharge: Good Plan - Discharge Summary New Discharge Prescriptions: Albuterol Inhaler [Ventolin Hfa Inhaler] 1 - 2 puff INHALATION Q6HR PRN #1 inhaler PRN Reason: Shortness Of Breath Ferrous Sulfate [Iron (65 MG Elemental)] 325 mg PO DAILY@1200 #30 tab Levofloxacin [Levaquin] 750 mg PO DAILY #5 tab Magnesium Oxide [Mag-Ox] 400 mg PO BID #60 tablet Montelukast [Singulair] 10 mg PO HS #30 tab sitaGLIPtin PHOS/metFORMIN HCL [Janumet 50-1,000 mg Tablet] 1 each PO BID #60 tab Discharge Medication List Aspirin 325 mg PO HS 02/01/14 [History] Levothyroxine Sodium [Synthroid] 50 mcg PO HS 02/01/14 [History] Nitroglycerin Sl Tabs [Nitrostat] 0.4 mg SUBLINGUAL Q5M PRN 02/01/14 [History] Omeprazole [PriLOSEC] 20 mg PO BID 02/01/14 [History] Furosemide [Lasix] 20 mg PO DAILY PRN 05/13/15 [History] Gabapentin [Neurontin] 800 mg PO QID 05/13/15 [History] amLODIPine [Norvasc] 5 mg PO HS 05/13/15 [History] HYDROcodone/APAP 10-325MG [[place] 10-325] 1 tab PO Q4HR PRN 07/17/16 [History] Insulin Aspart [NovoLOG] See Protocol SQ AC-TID PRN 07/17/16 [History] Simvastatin [Zocor] 80 mg PO HS 07/17/16 [History] fentaNYL 25MCG/HR PATCH [Duragesic 25MCG/HR] 1 patch TRANSDERM Q72H 07/17/16 [ History] glipiZIDE [Glucotrol] 2.5 mg PO AC-BID 07/17/16 [History] Levofloxacin [Levaquin] 750 mg PO DAILY #5 tab 11/20/16 [Rx] Albuterol Inhaler [Ventolin Hfa Inhaler] 1 - 2 puff INHALATION Q6HR PRN #1 inhaler 11/21/16 [Rx] Ferrous Sulfate [Iron (65 MG Elemental)] 325 mg PO DAILY@1200 #30 tab 11/21/16 [ Rx] Magnesium Oxide [Mag-Ox] 400 mg PO BID #60 tablet 11/21/16 [Rx] Montelukast [Singulair] 10 mg PO HS #30 tab 11/21/16 [Rx] sitaGLIPtin PHOS/metFORMIN HCL [Janumet 50-1,000 mg Tablet] 1 each PO BID #60 tab 11/21/16 [Rx] Follow up Appointment(s)/Referral(s): Bran Hardin MD [STAFF PHYSICIAN] - 12/12/16 10:00 am Bautista Romero MD [Primary Care Provider] - 11/26/16 1:00 pm Patient Instructions/Handouts: Heart Failure (DC), Pneumonia (DC) Activity/Diet/Wound Care/Special Instructions: Optifoam for coccyx wound. Consistent carbohydrate diet- Diabetic folder given. Wound care orders per infectious disease. Discharge Disposition: HOME SELF-CARE
== END 2016-11-21 15:23 | disposition home or self-care (01) | DRG 871 ==
LOC: EC 03:08 → 4MS4W 05:17 → 6SEL 06:15 → 4MS4W 11-20 14:02
PROVIDERS: ADMIT Family Medicine; ATTEND Family Medicine
DX: A41.9 Sepsis, unspecified organism (principal); G93.41 Metabolic encephalopathy; L89.152 Pressure ulcer of sacral region, stage 2; I11.0 Hypertensive heart disease with heart failure; I50.32 Chronic diastolic (congestive) heart failure; J18.9 Pneumonia, unspecified organism; I25.10 Atherosclerotic heart disease of native coronary artery without angina pectoris; E11.42 Type 2 diabetes mellitus with diabetic polyneuropathy; E83.42 Hypomagnesemia; E87.6 Hypokalemia; T38.0X5A Adverse effect of glucocorticoids and synthetic analogues, initial encounter; R06.2 Wheezing; J98.01 Acute bronchospasm; R06.83 Snoring; M15.9 Polyosteoarthritis, unspecified; M10.9 Gout, unspecified; M50.30 Other cervical disc degeneration, unspecified cervical region; R53.1 Weakness; I25.2 Old myocardial infarction; G89.29 Other chronic pain; M51.36 Other intervertebral disc degeneration, lumbar region; H93.13 Tinnitus, bilateral; Z87.01 Personal history of pneumonia (recurrent); Z95.5 Presence of coronary angioplasty implant and graft; Z95.1 Presence of aortocoronary bypass graft; Z83.3 Family history of diabetes mellitus; Z80.1 Family history of malignant neoplasm of trachea, bronchus and lung; Z87.891 Personal history of nicotine dependence; Z96.641 Presence of right artificial hip joint; Z90.49 Acquired absence of other specified parts of digestive tract; Z86.14 Personal history of Methicillin resistant Staphylococcus aureus infection; Z79.899 Other long term (current) drug therapy; Z82.49 Family history of ischemic heart disease and other diseases of the circulatory system; Z79.4 Long term (current) use of insulin; Z80.3 Family history of malignant neoplasm of breast; Z16.24 Resistance to multiple antibiotics; Z85.828 Personal history of other malignant neoplasm of skin; Z79.84 Long term (current) use of oral hypoglycemic drugs; Z83.6 Family history of other diseases of the respiratory system; Z79.82 Long term (current) use of aspirin; Z79.891 Long term (current) use of opiate analgesic; Z87.438 Personal history of other diseases of male genital organs; Z87.828 Personal history of other (healed) physical injury and trauma; Z86.19 Personal history of other infectious and parasitic diseases; Z87.19 Personal history of other diseases of the digestive system
CPT/HCPCS: 36415; 71020; 80048; 80053; 80202; 81001; 82550; 82553; 83036; 83605; 83735; 84132; 85025; 87040; 87502; 94640; 96365; 96366; 96367; 99285

== ENCOUNTER 2016-11-28 07:39 | Inpatient (IN) | payer MEDICARE ==
[2016-11-28] MEDS ORDERED: ACETAMINOPHEN IV (For NPO) 1,000 MG in SALINE 100 100ML.BAG IVPB STA (08:03)
[2016-11-28] MEDS ORDERED: ONDANSETRON 4 MG/2 ML VIAL IVP STA (08:03)
[2016-11-28] MEDS ORDERED: IBUPROFEN IV 600 MG in SODIUM CHLORIDE 0.9% 250 ML IV STA (08:03)
[2016-11-28] MEDS ORDERED: SODIUM CHLORIDE 0.9% 2,000 ML IV ONE (08:03)
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
[2016-11-28 08:51] LABS: Creatine Kinase 109 U/L (55-170)
--- NOTE | 2016-11-28 08:53 | XR ---
EXAMINATION TYPE: XR chest 2V DATE OF EXAM: 11/28/2016 8:47 AM COMPARISON: 11/18/2006 TECHNIQUE: PA and lateral views submitted. HISTORY: Difficulty breathing FINDINGS: The lungs are clear and there is no pneumothorax, pleural effusion, or focal pneumonia. There are n odular densities seen bilaterally. Postsurgical change involving the mediastinum and cervical spine n oted. Arthropathy of the shoulder. Hypertrophic and degenerative change of the spine. IMPRESSION: 1. No acute process. There is suggestion of bilateral pulmonary nodules not clearly depicted on the p revious exam. Correlate for chest lead placement. Otherwise CT chest recommended.
[2016-11-28 09:04] LABS: Troponin I <0.012 ng/mL (0.000-0.034)
[2016-11-28 09:06] LABS: Creatine Kinase MB 3.9 ng/mL (0.0-2.4)
[2016-11-28 10:16] LABS: Basophils # (A) 0.1 k/uL (0-0.2); Basophils % (A) 0 %; CH 29.7; CHCM 30.3; Eosinophils # (A) 0.3 k/uL (0-0.7); Eosinophils % (A) 2 %; HCT 40.9 % (39.0-53.0); HGB 12.3 gm/dL (13.0-17.5); Hypochromasia Moderate; Luc # (Auto) 0.31; Luc % (Auto) 2; Lymphocytes # (A) 0.5 k/uL (1.0-4.8); Lymphocytes % (A) 3 %; MCH 29.7 pg (25.0-35.0); MCHC 30.1 g/dL (31.0-37.0); MCV 98.5 fL (80.0-100.0); Macrocytosis Slight; Mean Platelet Volume 8.8; Monocytes # (A) 1.1 k/uL (0-1.0); Monocytes % (A) 6 %; Neutrophils # (A) 15.7 k/uL (1.3-7.7); Neutrophils % (A) 87 %; RBC 4.15 m/uL (4.30-5.90); RDW 15.8 % (11.5-15.5); WBC (Perox) 18.28
[2016-11-28 10:21] LABS: Potassium 5.3 mmol/L (3.5-5.1); Total Bilirubin 0.7 mg/dL (0.2-1.3); Total Protein 6.5 g/dL (6.3-8.2)
[2016-11-28 11:07] LABS: Appearance,Urine Clear (Clear); Bacteria,Urine Rare /hpf; Bilirubin,Urine Negative (Negative); Glucose,Urine (UA) Negative (Negative); Ketones,Urine Negative (Negative); Leukocyte Esterase,Urine Negative (Negative); Nitrite,Urine Negative (Negative); PH, Urine 5.5 (5.0-8.0); Particle Count 5613; Protein,Urine 1+ (Negative); Specific Gravity,Urine 1.019 (1.001-1.035); UA Billing (MACRO vs. MICRO) MICRO; Urobilinogen,Urine <2.0 mg/dL (<2.0); WBC,Urine 4 /hpf (0-5)
[2016-11-28 11:41] LABS: INR 1.1 (<1.1); Partial Thromboplastin Time 25.4 sec (22.0-30.0); Prothrombin Time 11.5 sec (9.0-12.0)
[2016-11-28] MEDS ORDERED: LEVOFLOXACIN 750MG-D5W PMX 750 MG in DEXTROSE/WATER 1 150ML.BAG IVPB STA (12:32)
[2016-11-28] MEDS ORDERED: SODIUM CHLORIDE 0.9% 1,000 ML IV ONE (12:33)
[2016-11-28] MEDS ORDERED: ONDANSETRON 4 MG/2 ML VIAL IVP PRN (12:35)
[2016-11-28 14:28] VITALS: BMI 27.9
[2016-11-28 17:17] LABS: Glucose,Whole Blood 98 mg/dL (75-99)
[2016-11-28] MEDS ORDERED: ALBUTEROL NEBULIZED 2.5 MG/3 ML INHALATION PRN (18:46)
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
[2016-11-28] MEDS ORDERED: SODIUM CHLORIDE 0.9% 500 ML IV ONE (20:09)
[2016-11-28] MEDS ORDERED: NOREPINEPHRINE 4 MG in SODIUM CHLORIDE 0.9% 250 ML IV SCH (20:15)
[2016-11-28] MEDS ORDERED: metFORMIN 500 MG TAB PO SCH (21:00)
[2016-11-28 21:01] LABS: CH 29.7; CHCM 29.9; HCT 35.6 % (39.0-53.0); HDW 2.47; HGB 10.8 gm/dL (13.0-17.5); Hypochromasia Marked; MCH 30.4 pg (25.0-35.0); MCHC 30.4 g/dL (31.0-37.0); MCV 99.9 fL (80.0-100.0); Macrocytosis Slight; Mean Platelet Volume 8.2; RBC 3.57 m/uL (4.30-5.90); RDW 15.8 % (11.5-15.5); WBC 8.1 k/uL (3.8-10.6)
[2016-11-28] MEDS: HYDROCORTISONE SUCCINATE 100 MG/2 ML VIAL IV SCH (21:19)
[2016-11-28] MEDS: PANTOPRAZOLE 40 MG TABLET PO SCH (21:19)
[2016-11-28] MEDS: ASPIRIN 325 MG TAB PO SCH (21:20)
[2016-11-28] MEDS: amLODIPine 5 MG TAB PO SCH (21:20)
[2016-11-28] MEDS: GABAPENTIN 400 MG CAP PO SCH (21:21)
[2016-11-28] MEDS: ATORVASTATIN 40 MG TAB PO SCH (21:21)
[2016-11-28] MEDS: LEVOTHYROXINE 50 MCG TAB PO SCH (21:21)
[2016-11-28] MEDS: MONTELUKAST 10 MG TAB PO SCH (21:21)
[2016-11-28] MEDS: INSULIN LISPRO (humaLOG) 300 UNIT/3 ML VIAL SQ SCH (21:24)
[2016-11-28 21:25] LABS: Glucose,Whole Blood 86 mg/dL (75-99)
[2016-11-28] MEDS: HYDROcodone/APAP 10-325MG 1 EACH TAB PO PRN (21:31)
[2016-11-28 23:16] LABS: Hemoglobin A1C 6.4 % (4.2-6.1)
[2016-11-29] MEDS: HEPARIN SODIUM,PORCINE 5,000 UNIT/ML 1 ML VIAL SQ SCH ×3 (00:11→15:51)
[2016-11-29] MEDS: HYDROCORTISONE SUCCINATE 100 MG/2 ML VIAL IV SCH ×3 (01:45→15:51)
[2016-11-29] MEDS: HYDROcodone/APAP 10-325MG 1 EACH TAB PO PRN ×5 (01:45→20:21)
[2016-11-29 04:49] LABS: Basophils % (A) 0 %; CH 28.9; CHCM 28.7; Eosinophils % (A) 0 %; HCT 36.1 % (39.0-53.0); HDW 2.46; HGB 10.5 gm/dL (13.0-17.5); Hypochromasia Marked; Luc # (Auto) 0.08; Luc % (Auto) 1; Lymphocytes # (A) 0.4 k/uL (1.0-4.8); Lymphocytes % (A) 7 %; MCH 29.5 pg (25.0-35.0); MCHC 29.2 g/dL (31.0-37.0); Macrocytosis Slight; Mean Platelet Volume 7.4; Monocytes # (A) 0.2 k/uL (0-1.0); Monocytes % (A) 3 %; Neutrophils # (A) 5.6 k/uL (1.3-7.7); Neutrophils % (A) 89 %; RBC 3.57 m/uL (4.30-5.90); RDW 15.4 % (11.5-15.5); WBC 6.3 k/uL (3.8-10.6); WBC (Perox) 7.04
[2016-11-29 05:04] LABS: Anion Gap 10 mmol/L; Calcium 7.6 mg/dL (8.4-10.2); Carbon Dioxide 18 mmol/L (22-30); Chloride 114 mmol/L (98-107); Glucose 282 mg/dL (74-99); Non-African American GFR(MDRD) >60 (>60 ml/min/1.73 sqM); Sodium 142 mmol/L (137-145)
[2016-11-29 05:10] LABS: Blood Urea Nitrogen 24 mg/dL (9-20); Magnesium 1.1 mg/dL (1.6-2.3); Phosphorous 3.7 mg/dL (2.5-4.5); Potassium 5.7 mmol/L (3.5-5.1)
[2016-11-29] MEDS ORDERED: Magnesium Replacement Protocol 1 EACH MISC MISCELLANE PRN (06:04)
[2016-11-29] MEDS: MAGNESIUM SULFATE-D5W PMX 1 GM in DEXTROSE/WATER 1 100ML.BAG IVPB SCH ×3 (06:56→10:08)
[2016-11-29] MEDS ORDERED: HYDROmorphone 1 MG/ML 1 ML SYRINGE IVP STA (07:50)
--- NOTE | 2016-11-29 07:51 | XR ---
EXAMINATION TYPE: XR chest 1V portable DATE OF EXAM: 11/29/2016 7:37 AM CLINICAL HISTORY: Difficulty breathing and pneumonia progress study. TECHNIQUE: Single AP portable upright view of the chest is obtained. COMPARISON: Chest x-ray from one day earlier FINDINGS: Post-CABG changes with mediastinal clips and sternal wires is redemonstrated. Cardiac silh ouette size is mildly enlarged on current study. There is suggestion of new mild central vascular con gestion. There is chronic emphysematous change without suspicious focal airspace opacity, pleural eff usion, or pneumothorax seen bilaterally. Long segment anterior fusion plate lower cervical spine is n oted. IMPRESSION: Chronic emphysematous change redemonstrated with new mild cardiomegaly and mild central v ascular congestion, consider CHF exacerbation, clinical correlation advised.
[2016-11-29] MEDS: SODIUM CHLORIDE 0.9% 1,000 ML IV SCH ×3 (07:59→20:44)
[2016-11-29] MEDS ORDERED: LINAGLIPTIN 5 MG TABLET PO SCH (09:00)
[2016-11-29] MEDS: GABAPENTIN 400 MG CAP PO SCH ×4 (10:08→22:09)
[2016-11-29] MEDS: PANTOPRAZOLE 40 MG TABLET PO SCH ×2 (10:09→17:32)
[2016-11-29 10:27] LABS: Glucose,Whole Blood 350 mg/dL (75-99)
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
[2016-11-29] MEDS: INSULIN LISPRO (humaLOG) 300 UNIT/3 ML VIAL SQ SCH ×6 (10:33→20:38)
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
--- NOTE | 2016-11-29 11:50 | US ---
EXAMINATION TYPE: US venous doppler duplex LE BI DATE OF EXAM: 11/29/2016 11:25 AM COMPARISON: on PACS bilateral ultrasound October 30, 2013. CLINICAL HISTORY: LE swelling. Bilateral leg swelling and discomfort SIDE PERFORMED: Bilateral VESSELS IMAGED: External Iliac Vein (EIV) Common Femoral Vein Deep Femoral Vein Greater Saphenous Vein * Femoral Vein Popliteal Vein Small Saphenous Vein * Proximal Calf Veins (* superficial vessels) TECHNOLOGIST IMPRESSION: Right Leg: Appears negative for DVT Left Leg: Appears negative for DVT Satisfactory color flow, phasicity, and compressibility is seen in the bilateral lower extremities at the above levels. IMPRESSION: No ultrasound evidence for acute DVT in either lower extremity. No significant change fr om prior.
--- NOTE | 2016-11-29 11:57 | CONS ---
DATE OF CONSULTATION: 11/29/2016 REASON FOR CONSULTATION: Hypotension, spiking fever. HISTORY OF PRESENTING ILLNESS: Mr. Benja Ribera is a 56-year-old male who was seen, evaluated, examined in the ICU. This patient was recently admitted into the hospital from the emergency department with spiking fever up to 104, nausea, vomiting; however, denies any diarrhea. Patient has nonproductive, dry cough as well. Patient symptoms started acutely yesterday morning around 2 a.m. with which he woke up due to persistent symptoms, decided to come into the emergency department where he was seen, evaluated, and examined and admitted on the floor, was found to be hypertensive, transferred to the ICU for fluid resuscitation and did require Levophed drip. Now patient is now off of the Levophed drip. Hemodynamic status is relatively more stable. Patient is more awake and alert, making some urine; however, he does have a history of chronic pain syndrome. He is complaining of pain and aches all over. He also history of chronic neuropathy as well. Past medical history is significant for congestive heart failure, chronic diastolic heart failure, diabetes mellitus, history of prior pneumonia. 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 Patient accordingly has been scheduled for surgery of the spine as well down the road. PAST SURGICAL HISTORY: Significant for bowel resection, status post cholecystectomy, CABG, history of cardiac cath, angiogram and stent placement, hernia repair. Patient had CABG x3 back in April 2011, history of right carpal tunnel surgery, history of right hand incision and drainage, history of bowel resection, history of inguinal hernia repair, right hip arthroplasty, C-spine decompression because of involving both upper extremities, history of radiofrequency ablation. ALLERGIES: No known drug allergy. Medications at home include: 1. Janumet 50-1000 mg 1 tablet 2 times a day. 2. Singulair 10 mg daily. 3. Ventolin HFA 2 puffs 4 times a day. 4. Fentanyl patch. 5. Zocor. 6. NovoLog. 7. Hydrocodone. 8. Norvasc. 9. Neurontin. 10. Lasix. 11. Prilosec. 12. Nitrostat. 13. Synthroid. 14. Aspirin. Current medications while in the hospital include Hydrocodone with APAP, DuoNeb unit dose updraft 4 times a day as needed, amlodipine is 5 mg daily, aspirin 325 mg, atorvastatin is 40 mg daily, fentanyl patch 25 mcg, Neurontin is 300 mg 4 times a day, heparin subQ 5000 units q.8, hydrocortisone is 100 mg IV q.8 started yesterday, Solu-Cortef, Humalog sliding scale, Levaquin 750 mg, Synthroid 50 mcg daily, Singulair 10 mg daily, IV fluid normal saline 100 mL an hour, Protonix 40 mg daily. Review of the data revealed that patient so far has no diarrhea, but did have some diarrhea. He has influenza done which were negative. Patient recently has recovered from pneumonia last week. REVIEW OF SYSTEMS: KNOT CUTTER: Denies any seizure, loss of consciousness, hemiparesis. CARDIORESPIRATORY: Otherwise unremarkable. GI: Nausea. : Otherwise as dictated above; otherwise unremarkable. MUSCULOSKELETAL/DERMATOLOGICAL: Unremarkable and noncontributory except as dictated above. On examination, vitals include blood pressure is 110/67, respiratory rate in mid 20s, heart rate 74, temperature is 98, saturation of 97% on 2 L oxygen. HEENT EXAMINATION: Atraumatic, normocephalic. Pharynx is clear. Narrow pharyngeal opening is present. Mallampati grade IV. NECK: Supple. Neck veins are prominent, but no JVD is present. LUNGS: Bilateral good air entry is present. A few crackles at bases. HEART: Regular rate and rhythm, S1 and S2 audible. Abdomen is distended but soft. Hypoactive bowel sounds. No rebound or rigidity, nontender. EXTREMITIES: Trace edema, bilateral tenderness present on palpation. The labs are reviewed. White cell count 8,100, hemoglobin 10, hematocrit 35, platelet count 220,000. The rest of the chemistry reviewed. Sodium 142, potassium 5.7. BUN and creatinine 34 and 1.1. Glucose 282. Calcium is 7.6, magnesium 1.1, phosphorus 3.7. The chest x-ray performed in the emergency department reviewed, borderline cardiomegaly is present. Some small pleural effusion, more so on the right side compared to the left side cannot be excluded, evidence of prior C-spine and median sternal surgery. Note is made of nodules; however, repeat chest x-ray failed to reveal any significant nodular appearance. Other laboratory data reviewed as well. The PT, INR is within normal limits. C. difficile is negative as well, cortisol level is 13. Culture results and reports are reviewed. Urine culture so far no growth. IMPRESSION: 1. Hypotension likely related to systemic inflammatory response syndrome or intravascular volume depletion and dehydration related to possibly viral gastroenteritis. 2. A small bilateral pleural effusion, more so on the right side compared to the left side with some nodular appearance on the x-ray. 3. History of smoking and nicotine use in the past. 4. Acute metabolic acidosis secondary to multifactorial process including intravascular volume depletion, dehydration, diarrhea, and renal injury. 5. Electrolyte imbalance with hypomagnesemia. Plan is to continue fluid resuscitation, replace electrolytes. Agree with hydrocortisone for now; however, will quickly taper in the next 24 to 48 hours. Monitor patient off of antibiotics as per recommended by Infectious Disease Services. Will obtain duplex ultrasound of the lower extremity given that both lower extremities extremely tender. DVT cannot be excluded. Patient will benefit from CT scan of the chest without IV contrast to look at the extent of effusion as well as nodular appearance of lung parenchyma. Will follow.
[2016-11-29] MEDS: LEVOFLOXACIN 750MG-D5W PMX 750 MG in DEXTROSE/WATER 1 150ML.BAG IVPB SCH (13:06)
[2016-11-29 13:09] LABS: Glucose,Whole Blood 296 mg/dL (75-99)
--- NOTE | 2016-11-29 16:10 | CT ---
EXAMINATION TYPE: CT chest wo con DATE OF EXAM: 11/29/2016 3:22 PM COMPARISON: NONE HISTORY: 56-year-old male has no complaints at time of service. Abnormal chest x-ray showing RUL nod ule/pleural effusion. TECHNIQUE: Contiguous axial scanning of the chest without IV contrast. Coronal and sagittal reconstru ctions performed. CT DLP: 663 mGycm Automated exposure control for dose reduction was used. FINDINGS: Median sternotomy wires are present with post-CABG changes Heart is normal size without pericardial effusion. Ascending aorta mildly ectatic at 3.7 cm. Mild atherosclerotic arch calcifications with bovine config uration to the aortic arch. Scattered nonenlarged mediastinal lymph nodes are present. No thoracic lymphadenopathy by CT size cri teria. Scattered strandy atelectasis or scarring in the lungs and suggestion of very mild emphysematous amador ge. There is patchy posterior basilar opacity on the right and a trace left pleural effusion. No gordy tional consolidation. No suspicious pulmonary nodule or mass to correspond to the radiographic findings. Cholecystectomy clips. Indeterminate 1 cm nodularity of the left adrenal gland statistically represen ts a benign adrenal adenoma and can be reassessed in one year. Bones: ACDF hardware. No osseous destructive process. Old healed right-sided rib fracture deformities . Mild degenerative disc disease thoracic spine. IMPRESSION: 1. PATCHY OPACITY POSTERIOR RIGHT BASE COULD REPRESENT ATELECTASIS OR DEVELOPING INFILTRATE. CLINICAL LY CORRELATE. NONSPECIFIC TRACE LEFT PLEURAL EFFUSION. ADDITIONAL STRANDY SCARRING AND/OR ATELECTASIS THROUGHOUT THE LUNGS. 2. NO PULMONARY NODULE OR MASS TO CORRESPOND TO THE RADIOGRAPHIC FINDINGS. THIS SUGGESTS SUMMATION AR TIFACT ON X-RAY. 3. INDETERMINATE 1 CM NODULE LEFT ADRENAL GLAND STATISTICALLY REPRESENTS A BENIGN ADRENAL ADENOMA. A ONE-YEAR FOLLOW-UP EXAM CAN BE PERFORMED.
[2016-11-29 17:36] LABS: Glucose,Whole Blood 208 mg/dL (75-99)
[2016-11-29] MEDS: amLODIPine 5 MG TAB PO SCH (20:21)
[2016-11-29] MEDS: LEVOTHYROXINE 50 MCG TAB PO SCH (20:21)
[2016-11-29] MEDS: ATORVASTATIN 40 MG TAB PO SCH (20:21)
[2016-11-29] MEDS: MONTELUKAST 10 MG TAB PO SCH (20:21)
[2016-11-29 20:27] LABS: Glucose,Whole Blood 217 mg/dL (75-99)
[2016-11-29] MEDS: INSULIN GLARGINE 100 UNIT/ML 10 ML VIAL SQ SCH (20:38)
[2016-11-29] MEDS: ASPIRIN 325 MG TAB PO SCH (22:09)
--- NOTE | 2016-11-29 22:15 | P.PN ---
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 Because of this the patient was having some mild the bowel discomforts but it was not severe. He was having difficulty eating and drinking without significant nausea or severe abdominal pain. His abdomen does not feel like it did when he has really recent bout of acute pancreatitis. Because he cannot control the diarrhea he presented to the emergency room. The patient was admitted to hospital and then he developed evidence of some hypotension and received some fluid and was transferred to the intensive care unit because of concerns to sepsis. The patient has had 3 recent hospitalizations due to significant illnesses with the first being a bout of pancreatitis and then fever and most recently had pneumonia. He had recently finished his course of antibiotic therapy for the pneumonia and also complete his course of steroid therapy. He now presents with the above symptoms feeling very poorly. He has generalized weakness. He feels very poorly overall. Relates that his pulmonary system is doing well he is not having significant cough or sputum production As noted he has the history of the extensive MRSA infection that was at his right hand that resulted in a significant bacteremia the required an extensive amount of antibiotic therapy and surgery to the risk for care. He is immunocompromised due to his diabetes mellitus as well as his ankylosing spondylitis and arthritis. Patient is feeling considerably better today. He is no longer hypotensive. He is having no ongoing fevers or chills. His abdominal discomforts nausea emesis and diarrhea have all resolved. Objective - Vital Signs Vital signs: Vital Signs Temp 98.9 F 11/29/16 20:00 Pulse 78 11/29/16 20:00 Resp 18 11/29/16 20:00 BP 125/79 11/29/16 20:00 Pulse Ox 97 11/29/16 20:00 Intake & Output 11/29/16 11/29/16 11/30/16 06:59 18:59 06:59 Intake Total 2436.673 1830 150 Output Total 1500 1050 0 Balance 936.673 780 150 Weight 81.7 kg Intake: IV 150 Levofloxacin 750Mg-D5w 150 Pmx 750 mg In Dextrose/ Water 1 150ml.bag @ 100 mls/hr IVPB ONCE [facility] Rx#: [id number] Intake, IV Titration 2196.673 1200 150 Amount Magnesium Sulfate-D5w Pmx 300 1 gm In Dextrose/Water 1 100ml.bag @ 100 mls/hr IVPB Q1H [facility] Rx#: [id number] Norepinephrine 4 mg In 46.673 Sodium Chloride 0.9% 250 ml @ Titrate IV .Q0M [facility] Rx#:[id number] Sodium Chloride 0.9% 1, 1650 000 ml @ 150 mls/hr IV . Q6H40M [facility] Rx#:[id number] Sodium Chloride 0.9% 1, 900 150 000 ml @ 150 mls/hr IV . Q6H40M [facility] Rx#:[id number] Sodium Chloride 0.9% 500 500 ml @ 999 mls/hr IV .Q31M [facility] Rx#:[id number] Oral 240 480 Output: Urine 1500 1050 0 Other: Voiding Method Urinal # Bowel Movements 0 - Exam 56-year-old male who has complaints complains of generalized fatigue and malaise and body aches HEENT: Anicteric conjunctiva are pink and moist nasal mucosa grossly intact without significant lesions, there is no thrush. Mucosa dry Neck: The neck is supple without significant lymphadenopathy or thyromegaly. Lungs: Good bilateral air entry without significant crackles or wheezes are heard There is no significant bronchial sounds. There is no egophony or dullness. Heart: Irregular with an audible S1 and S2 no S3 soft S4 no murmur click or rub. Abdomen: Positive bowel sounds soft and nontender without palpable masses or organomegaly. There was no guarding or rebound. Extremities: The left upper extremity shows no acute difficulties, IV site is present, the right wrist reveals evidence of the prior surgical intervention. The extensive prior wound has healed. No evidence of any erythema or tenderness at that site. Skin: Area of ulceration to the buttocks as healed only has some residual mild skin discoloration with some erythema to the area where he had dressing in place. There is no epitrochlear or axillary lymphadenopathy. No other lymphadenopathy is noted. Neuro: Awake alert oriented to person place and time. There are no acute new gross focal sensory motor deficits. - Labs CBC & Chem 7: 11/29/16 04:35 11/29/16 07:54 Labs: Abnormal Lab Results - Last 24 Hours (Table) 11/29/16 11/29/16 11/29/16 Range/Units 04:35 04:35 07:54 RBC 3.57 L (4.30-5.90) m/uL Hgb 10.5 L (13.0-17.5) gm/dL Hct 36.1 L (39.0-53.0) % MCV 101.0 H (80.0-100.0) fL MCHC 29.2 L (31.0-37.0) g/dL Lymphocytes # 0.4 L (1.0-4.8) k/uL Potassium 5.7 H 5.3 H (3.5-5.1) mmol/L Chloride 114 H (98-107) mmol/L Carbon Dioxide 18 L (22-30) mmol/L BUN 24 H (9-20) mg/dL Glucose 282 H (74-99) mg/dL POC Glucose (mg/dL) (75-99) mg/dL Calcium 7.6 L (8.4-10.2) mg/dL Magnesium 1.1 L (1.6-2.3) mg/dL 11/29/16 11/29/16 11/29/16 Range/Units 10:25 13:01 17:34 RBC (4.30-5.90) m/uL Hgb (13.0-17.5) gm/dL Hct (39.0-53.0) % MCV (80.0-100.0) fL MCHC (31.0-37.0) g/dL Lymphocytes # (1.0-4.8) k/uL Potassium (3.5-5.1) mmol/L Chloride (98-107) mmol/L Carbon Dioxide (22-30) mmol/L BUN (9-20) mg/dL Glucose (74-99) mg/dL POC Glucose (mg/dL) 350 H 296 H 208 H (75-99) mg/dL Calcium (8.4-10.2) mg/dL Magnesium (1.6-2.3) mg/dL 11/29/16 Range/Units 20:25 RBC (4.30-5.90) m/uL Hgb (13.0-17.5) gm/dL Hct (39.0-53.0) % MCV (80.0-100.0) fL MCHC (31.0-37.0) g/dL Lymphocytes # (1.0-4.8) k/uL Potassium (3.5-5.1) mmol/L Chloride (98-107) mmol/L Carbon Dioxide (22-30) mmol/L BUN (9-20) mg/dL Glucose (74-99) mg/dL POC Glucose (mg/dL) 217 H (75-99) mg/dL Calcium (8.4-10.2) mg/dL Magnesium (1.6-2.3) mg/dL Laboratory Results WBC 6.3 k/uL (3.8-10.6) 11/29/16 04:35 RBC 3.57 m/uL (4.30-5.90) L 11/29/16 04:35 Hgb 10.5 gm/dL (13.0-17.5) L 11/29/16 04:35 Hct 36.1 % (39.0-53.0) L 11/29/16 04:35 MCV 101.0 fL (80.0-100.0) H 11/29/16 04:35 MCH 29.5 pg (25.0-35.0) 11/29/16 04:35 MCHC 29.2 g/dL (31.0-37.0) L 11/29/16 04:35 RDW 15.4 % (11.5-15.5) 11/29/16 04:35 Plt Count 225 k/uL (150-450) 11/29/16 04:35 Neutrophils % 89 % 11/29/16 04:35 Lymphocytes % 7 % 11/29/16 04:35 Monocytes % 3 % 11/29/16 04:35 Eosinophils % 0 % 11/29/16 04:35 Basophils % 0 % 11/29/16 04:35 Neutrophils # 5.6 k/uL (1.3-7.7) 11/29/16 04:35 Lymphocytes # 0.4 k/uL (1.0-4.8) L 11/29/16 04:35 Monocytes # 0.2 k/uL (0-1.0) 11/29/16 04:35 Eosinophils # 0.0 k/uL (0-0.7) 11/29/16 04:35 Basophils # 0.0 k/uL (0-0.2) 11/29/16 04:35 Hypochromasia Marked 11/29/16 04:35 Macrocytosis Slight 11/29/16 04:35 PT 11.5 sec (9.0-12.0) 11/28/16 08:02 INR 1.1 (<1.1) 11/28/16 08:02 APTT 25.4 sec (22.0-30.0) 11/28/16 08:02 Sodium 142 mmol/L (137-145) 11/29/16 04:35 Potassium 5.3 mmol/L (3.5-5.1) H 11/29/16 07:54 Chloride 114 mmol/L (98-107) H 11/29/16 04:35 Carbon Dioxide 18 mmol/L (22-30) L 11/29/16 04:35 Anion Gap 10 mmol/L 11/29/16 04:35 BUN 24 mg/dL (9-20) H 11/29/16 04:35 Creatinine 1.10 mg/dL (0.66-1.25) 11/29/16 04:35 Est GFR (MDRD) Af Amer >60 (>60 ml/min/1.73 sqM) 11/29/16 04:35 Est GFR (MDRD) Non-Af >60 (>60 ml/min/1.73 sqM) 11/29/16 04:35 Glucose 282 mg/dL (74-99) H 11/29/16 04:35 POC Glucose (mg/dL) 217 mg/dL (75-99) H 11/29/16 20:25 POC Glu It Infrastructure Specialist ID Cristobal Carmnoa 11/29/16 20:[address] Glu mg/dL 137 mg/dL 11/28/16 08:02 Hemoglobin A1c 6.4 % (4.2-6.1) H 11/28/16 08:02 Plasma Lactic Acid Freddy 1.6 mmol/L (0.7-2.0) 11/28/16 11:00 Calcium 7.6 mg/dL (8.4-10.2) L 11/29/16 04:35 Phosphorus 3.7 mg/dL (2.5-4.5) 11/29/16 04:35 Magnesium 1.1 mg/dL (1.6-2.3) L 11/29/16 04:35 Total Bilirubin 0.7 mg/dL (0.2-1.3) 11/28/16 08:02 AST 31 U/L (17-59) 11/28/16 08:02 ALT 35 U/L (21-72) 11/28/16 08:02 Alkaline Phosphatase 87 U/L (38-126) 11/28/16 08:02 Total Creatine Kinase 109 U/L (55-170) 11/28/16 08:02 CK-MB (CK-2) 3.9 ng/mL (0.0-2.4) H* 11/28/16 08:02 CK-MB (CK-2) Rel Index 3.6 11/28/16 08:02 Troponin I <0.012 ng/mL (0.000-0.034) 11/28/16 08:02 Total Protein 6.5 g/dL (6.3-8.2) 11/28/16 08:02 Albumin 3.5 g/dL (3.5-5.0) 11/28/16 08:02 Cortisol 13 ug/dL 11/28/16 08:02 Urine Color Yellow 11/28/16 10:46 Urine Appearance Clear (Clear) 11/28/16 10:46 Urine pH 5.5 (5.0-8.0) 11/28/16 10:46 Ur Specific [place] 1.019 (1.001-1.035) 11/28/16 10:46 Urine Protein 1+ (Negative) H 11/28/16 10:46 Urine Glucose (UA) Negative (Negative) 11/28/16 10:46 Urine Ketones Negative (Negative) 11/28/16 10:46 Urine Blood Negative (Negative) 11/28/16 10:46 Urine Nitrite Negative (Negative) 11/28/16 10:46 Urine Bilirubin Negative (Negative) 11/28/16 10:46 Urine Urobilinogen <2.0 mg/dL (<2.0) 11/28/16 10:46 Ur Leukocyte Esterase Negative (Negative) 11/28/16 10:46 Urine WBC 4 /hpf (0-5) 11/28/16 10:46 Urine Bacteria Rare /hpf (None) H 11/28/16 10:46 Hyaline Casts 5 /lpf (0-2) H 11/28/16 10:46 C. difficile (EIA) Intrp Negative (Negative) 11/28/16 10:46 Influenza Type A RNA Not Detected (Not Detectd) 11/28/16 08:13 Influenza Type B (PCR) Not Detected (Not Detectd) 11/28/16 08:13 Laboratory Results WBC 6.3 k/uL (3.8-10.6) 11/29/16 04:35 RBC 3.57 m/uL (4.30-5.90) L 11/29/16 04:35 Hgb 10.5 gm/dL (13.0-17.5) L 11/29/16 04:35 Hct 36.1 % (39.0-53.0) L 11/29/16 04:35 MCV 101.0 fL (80.0-100.0) H 11/29/16 04:35 MCH 29.5 pg (25.0-35.0) 11/29/16 04:35 MCHC 29.2 g/dL (31.0-37.0) L 11/29/16 04:35 RDW 15.4 % (11.5-15.5) 11/29/16 04:35 Plt Count 225 k/uL (150-450) 11/29/16 04:35 Neutrophils % 89 % 11/29/16 04:35 Lymphocytes % 7 % 11/29/16 04:35 Monocytes % 3 % 11/29/16 04:35 Eosinophils % 0 % 11/29/16 04:35 Basophils % 0 % 11/29/16 04:35 Neutrophils # 5.6 k/uL (1.3-7.7) 11/29/16 04:35 Lymphocytes # 0.4 k/uL (1.0-4.8) L 11/29/16 04:35 Monocytes # 0.2 k/uL (0-1.0) 11/29/16 04:35 Eosinophils # 0.0 k/uL (0-0.7) 11/29/16 04:35 Basophils # 0.0 k/uL (0-0.2) 11/29/16 04:35 Hypochromasia Marked 11/29/16 04:35 Macrocytosis Slight 11/29/16 04:35 PT 11.5 sec (9.0-12.0) 11/28/16 08:02 INR 1.1 (<1.1) 11/28/16 08:02 APTT 25.4 sec (22.0-30.0) 11/28/16 08:02 Sodium 142 mmol/L (137-145) 11/29/16 04:35 Potassium 5.3 mmol/L (3.5-5.1) H 11/29/16 07:54 Chloride 114 mmol/L (98-107) H 11/29/16 04:35 Carbon Dioxide 18 mmol/L (22-30) L 11/29/16 04:35 Anion Gap 10 mmol/L 11/29/16 04:35 BUN 24 mg/dL (9-20) H 11/29/16 04:35 Creatinine 1.10 mg/dL (0.66-1.25) 11/29/16 04:35 Est GFR (MDRD) Af Amer >60 (>60 ml/min/1.73 sqM) 11/29/16 04:35 Est GFR (MDRD) Non-Af >60 (>60 ml/min/1.73 sqM) 11/29/16 04:35 Glucose 282 mg/dL (74-99) H 11/29/16 04:35 POC Glucose (mg/dL) 217 mg/dL (75-99) H 11/29/16 20:25 POC Glu It Infrastructure Specialist ID Cristobal Carmona 11/29/16 20:[address] Glu mg/dL 137 mg/dL 11/28/16 08:02 Hemoglobin A1c 6.4 % (4.2-6.1) H 11/28/16 08:02 Plasma Lactic Acid Freddy 1.6 mmol/L (0.7-2.0) 11/28/16 11:00 Calcium 7.6 mg/dL (8.4-10.2) L 11/29/16 04:35 Phosphorus 3.7 mg/dL (2.5-4.5) 11/29/16 04:35 Magnesium 1.1 mg/dL (1.6-2.3) L 11/29/16 04:35 Total Bilirubin 0.7 mg/dL (0.2-1.3) 11/28/16 08:02 AST 31 U/L (17-59) 11/28/16 08:02 ALT 35 U/L (21-72) 11/28/16 08:02 Alkaline Phosphatase 87 U/L (38-126) 11/28/16 08:02 Total Creatine Kinase 109 U/L (55-170) 11/28/16 08:02 CK-MB (CK-2) 3.9 ng/mL (0.0-2.4) H* 11/28/16 08:02 CK-MB (CK-2) Rel Index 3.6 11/28/16 08:02 Troponin I <0.012 ng/mL (0.000-0.034) 11/28/16 08:02 Total Protein 6.5 g/dL (6.3-8.2) 11/28/16 08:02 Albumin 3.5 g/dL (3.5-5.0) 11/28/16 08:02 Cortisol 13 ug/dL 11/28/16 08:02 Urine Color Yellow 11/28/16 10:46 Urine Appearance Clear (Clear) 11/28/16 10:46 Urine pH 5.5 (5.0-8.0) 11/28/16 10:46 Ur Specific [place] 1.019 (1.001-1.035) 11/28/16 10:46 Urine Protein 1+ (Negative) H 11/28/16 10:46 Urine Glucose (UA) Negative (Negative) 11/28/16 10:46 Urine Ketones Negative (Negative) 11/28/16 10:46 Urine Blood Negative (Negative) 11/28/16 10:46 Urine Nitrite Negative (Negative) 11/28/16 10:46 Urine Bilirubin Negative (Negative) 11/28/16 10:46 Urine Urobilinogen <2.0 mg/dL (<2.0) 11/28/16 10:46 Ur Leukocyte Esterase Negative (Negative) 11/28/16 10:46 Urine WBC 4 /hpf (0-5) 11/28/16 10:46 Urine Bacteria Rare /hpf (None) H 11/28/16 10:46 Hyaline Casts 5 /lpf (0-2) H 11/28/16 10:46 C. difficile (EIA) Intrp Negative (Negative) 11/28/16 10:46 Influenza Type A RNA Not Detected (Not Detectd) 11/28/16 08:13 Influenza Type B (PCR) Not Detected (Not Detectd) 03/15/17 08:13 Microbiology 11/28/16 10:46 Urine,Catheterized Urine Culture - Final 11/28/16 08:02 Blood Blood Culture - Preliminary No Growth after 24 hours Assessment and Plan (1) Fever Narrative/Plan: Very pleasant 56-year-old male who has multiple medical troubles presents to Hospital for the onset of fever and abdominal symptoms mostly with diarrhea. He 's had some nausea without emesis and has noted no hematemesis melena or hematochezia. He'll feel very poorly and was brought in and then became somewhat hypotensive and required fluids and transferred to intensive care unit. At admission his lactic acid was elevated on follow-up after fluids was improved. At this time a random stat cortisol level was requested. will trial some hydrocortisone with concerns for adrenal insufficiency given the fact that he has been on steroid therapy as of late. If he is with adrenal insufficiency will treatment and steroids until we can be of successfully tapered over time. Stool for C. diff was sent to the laboratory and is negative. Influenza A and B were negative. Urinalysis is negative. Patient however did have significant leukocytosis. Concerns to a gastroenteritis that could be viral in nature versus bacterial and consequently stool studies are requested. Was started on antibiotic therapy with Levaquin with his recent history of pneumonia and will be monitored. Lastly patient did have difficulties with what appeared to be some lactic acidosis in the recent past. Thought to be due to his allopurinol therapy. This is discontinued and he received some steroid therapy. Was doing relatively well until this acute onset of symptoms . noted concerns to adrenal insufficiency but also have concerns to the possibility of lactic acidosis from a different medication, he is on metformin and this is discontinued especially since he does have acute renal failure also at this point in time also. Is receiving fluids in the ICU and is being monitored with marked improvement in this day. His gastric intestinal symptoms improved. His renal failure has improved. With the use of steroids in the glucose is elevated being monitored and treated.. Nephrology is following. As noted is now much improved. Status: Acute (2) Diarrhea Status: Acute
[2016-11-30] MEDS: HEPARIN SODIUM,PORCINE 5,000 UNIT/ML 1 ML VIAL SQ SCH ×3 (00:18→15:30)
[2016-11-30] MEDS: HYDROCORTISONE SUCCINATE 100 MG/2 ML VIAL IV SCH ×3 (00:18→22:38)
[2016-11-30] MEDS: HYDROcodone/APAP 10-325MG 1 EACH TAB PO PRN ×6 (00:23→20:56)
[2016-11-30] MEDS: SODIUM CHLORIDE 0.9% 1,000 ML IV SCH (03:09)
[2016-11-30 06:03] LABS: Anion Gap 9 mmol/L; Blood Urea Nitrogen 20 mg/dL (9-20); Carbon Dioxide 21 mmol/L (22-30); Chloride 111 mmol/L (98-107); Glucose 164 mg/dL (74-99); Magnesium 1.3 mg/dL (1.6-2.3); Non-African American GFR(MDRD) >60 (>60 ml/min/1.73 sqM); Potassium 4.5 mmol/L (3.5-5.1); Sodium 141 mmol/L (137-145)
[2016-11-30] MEDS ORDERED: Magnesium Replacement Protocol 1 EACH MISC MISCELLANE PRN (06:26)
[2016-11-30] MEDS: MAGNESIUM SULFATE-D5W PMX 1 GM in DEXTROSE/WATER 1 100ML.BAG IVPB SCH ×3 (07:02→08:57)
[2016-11-30 07:23] LABS: Glucose,Whole Blood 170 mg/dL (75-99)
[2016-11-30] MEDS: GABAPENTIN 400 MG CAP PO SCH ×4 (07:44→21:52)
[2016-11-30] MEDS: PANTOPRAZOLE 40 MG TABLET PO SCH ×2 (07:45→17:16)
[2016-11-30] MEDS: INSULIN LISPRO (humaLOG) 300 UNIT/3 ML VIAL SQ SCH ×7 (07:46→21:51)
--- NOTE | 2016-11-30 08:54 | P.PN ---
Subjective Patient is seen in follow-up for acute kidney injury. His baseline creatinine is 1 and was elevated at 2.3 on admission. GFR is back to baseline with creatinine is 0.8 today. He is currently resting in bed. Denies any vomiting or diarrhea. Appetite is good. Denies any chest pain or shortness of breath. Vital signs are stable. General: The patient appeared well nourished and normally developed. HEENT: Head exam is unremarkable. Neck is without jugular venous distension. LUNGS: Lungs are clear to auscultation and percussion. Breath sounds decreased. HEART: Rate and Rhythm are regular. First and second heart sounds normal. No murmurs, rubs or gallops. ABDOMEN: Abdominal exam reveals normal bowel sounds. Non-tender and non- distended. No evidence of peritonitis. EXTREMITITES: No clubbing, cyanosis, or edema. Objective - Vital Signs Vital signs: Vital Signs Temp 98.1 F 11/30/16 04:00 Pulse 69 11/30/16 06:00 Resp 14 11/30/16 06:00 BP 122/73 11/30/16 06:00 Pulse Ox 97 11/30/16 05:00 Intake & Output 11/29/16 11/30/16 11/30/16 18:59 06:59 18:59 Intake Total 1830 1530 Output Total 1050 535 Balance 780 995 Weight 83.8 kg Intake: IV 150 Levofloxacin 750Mg-D5w 150 Pmx 750 mg In Dextrose/ Water 1 150ml.bag @ 100 mls/hr IVPB ONCE [facility] Rx#: [id number] Intake, IV Titration 1200 1350 Amount Magnesium Sulfate-D5w Pmx 300 1 gm In Dextrose/Water 1 100ml.bag @ 100 mls/hr IVPB Q1H [facility] Rx#: [id number] Sodium Chloride 0.9% 1, 900 1350 000 ml @ 150 mls/hr IV . Q6H40M [facility] Rx#:[id number] Oral 480 180 Output: Urine 1050 535 Other: Voiding Method Urinal # Bowel Movements 0 - Labs CBC & Chem 7: 11/29/16 04:35 11/30/16 05:23 Labs: Abnormal Lab Results - Last 24 Hours (Table) 11/29/16 11/29/16 11/29/16 Range/Units 07:54 10:25 13:01 Potassium 5.3 H (3.5-5.1) mmol/L Chloride (98-107) mmol/L Carbon Dioxide (22-30) mmol/L Glucose (74-99) mg/dL POC Glucose (mg/dL) 350 H 296 H (75-99) mg/dL Calcium (8.4-10.2) mg/dL Magnesium (1.6-2.3) mg/dL 11/29/16 11/29/16 11/30/16 Range/Units 17:34 20:25 05:23 Potassium (3.5-5.1) mmol/L Chloride 111 H (98-107) mmol/L Carbon Dioxide 21 L (22-30) mmol/L Glucose 164 H (74-99) mg/dL POC Glucose (mg/dL) 208 H 217 H (75-99) mg/dL Calcium 8.0 L (8.4-10.2) mg/dL Magnesium 1.3 L (1.6-2.3) mg/dL 11/30/16 Range/Units 07:21 Potassium (3.5-5.1) mmol/L Chloride (98-107) mmol/L Carbon Dioxide (22-30) mmol/L Glucose (74-99) mg/dL POC Glucose (mg/dL) 170 H (75-99) mg/dL Calcium (8.4-10.2) mg/dL Magnesium (1.6-2.3) mg/dL Assessment and Plan Plan: Assessment: #1. Nonoliguric acute kidney injury mostly prerenal in nature secondary to vomiting and diarrhea leading to intravascular volume depletion. Resolved. GFR back to baseline. #2. 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 Patient does have persistent proteinuria on urinalysis. Baseline creatinine is near 1. #3. Metabolic acidosis secondary to acute kidney injury as well as IV fluids. Improved. #4. Hypomagnesemia secondary to GI losses. Improved. #5. Vomiting and diarrhea possibly related to gastroenteritis. Resolved. Plan: Hep-Lock IV fluids. Replace magnesium. 3 g today. Encourage oral intake as tolerated. Avoid nephrotoxic agents and hypotensive episodes. Wean steroids. Cortisol level 13. Quantify proteinuria as an outpatient. Stable to be transferred out of the intensive care unit from nephrology standpoint.
[2016-11-30] MEDS ORDERED: IPRATROPIUM-ALBUTEROL 3 ML NEB INHALATION PRN (09:52)
--- NOTE | 2016-11-30 10:04 | P.PN ---
Subjective This is a 56-year-old male who is seen and evaluated and examined today on the fourth floor. This patient was recently admitted to the hospital from the emergency room for spiking fevers of 104, nausea, vomiting. He denies any diarrhea. The patient also has a nonproductive dry cough as well. Patient decided to come into the emergency room a few days after illness onset. And he was admitted to the medical surgical floor, he was then found to be hypotensive and was transferred up to the ICU for fluid resuscitation and a Levophed drip. Patient has been off the Levophed drip and has been downgraded note back to the medical surgical floor. The patient has been hemodynamically stable. Patient is awake and alert making urine he also has a history of chronic pain syndrome and continues to complain of nonspecific pain all over his body. He also has a history of chronic neuropathy. Upon examination the patient is resting up in bed on room air. Objective - Vital Signs Vital signs: Vital Signs Temp 98.1 F 11/30/16 04:00 Pulse 69 11/30/16 06:00 Resp 14 11/30/16 06:00 BP 122/73 11/30/16 06:00 Pulse Ox 97 11/30/16 05:00 Intake & Output 11/29/16 11/30/16 11/30/16 18:59 06:59 18:59 Intake Total 1830 1530 Output Total 1050 535 Balance 780 995 Weight 83.8 kg Intake: IV 150 Levofloxacin 750Mg-D5w 150 Pmx 750 mg In Dextrose/ Water 1 150ml.bag @ 100 mls/hr IVPB ONCE [facility] Rx#: [id number] Intake, IV Titration 1200 1350 Amount Magnesium Sulfate-D5w Pmx 300 1 gm In Dextrose/Water 1 100ml.bag @ 100 mls/hr IVPB Q1H [facility] Rx#: [id number] Sodium Chloride 0.9% 1, 900 1350 000 ml @ 150 mls/hr IV . Q6H40M [facility] Rx#:[id number] Oral 480 180 Output: Urine 1050 535 Other: Voiding Method Urinal # Bowel Movements 0 - Exam GENERAL EXAM: Alert, active, comfortable in no apparent distress. HEAD: Normocephalic. EYES: Normal reaction of pupils, equal size. NOSE: Clear with pink turbinates. THROAT: No erythema or exudates. NECK: No masses, no JVD. CHEST: No chest wall deformity. LUNGS: Equal air entry with no crackles, wheeze, rhonchi or dullness. Diminished in bilateral bases CVS: S1 and S2 normal with no audible mumurs, regular rhythm. ABDOMEN: No hepatosplenomegaly, normal bowel sounds, no guarding or rigidity. EXTREMITIES: Chronic edema noted, pedal pulses palpable. SKIN: No rashes CENTRAL NERVOUS SYSTEM: No focal deficits, tone is normal in all 4 extremities. - Labs CBC & Chem 7: 11/29/16 04:35 11/30/16 05:23 Labs: Abnormal Lab Results - Last 24 Hours (Table) 11/29/16 11/29/16 11/29/16 Range/Units 10:25 13:01 17:34 Chloride (98-107) mmol/L Carbon Dioxide (22-30) mmol/L Glucose (74-99) mg/dL POC Glucose (mg/dL) 350 H 296 H 208 H (75-99) mg/dL Calcium (8.4-10.2) mg/dL Magnesium (1.6-2.3) mg/dL 11/29/16 11/30/16 11/30/16 Range/Units 20:25 05:23 07:21 Chloride 111 H (98-107) mmol/L Carbon Dioxide 21 L (22-30) mmol/L Glucose 164 H (74-99) mg/dL POC Glucose (mg/dL) 217 H 170 H (75-99) mg/dL Calcium 8.0 L (8.4-10.2) mg/dL Magnesium 1.3 L (1.6-2.3) mg/dL - Imaging and Cardiology Chest x-ray: report reviewed CT scan - chest: report reviewed Venous US: report reviewed Assessment and Plan Plan: Assessment Hypotension related to seizures or intravascular volume depletion and dehydration possibly related to a viral gastroenteritis. Small bilateral pleural effusions, chest x-ray and CT results reviewed History of smoking and nicotine use Acute metabolic acidosis secondary to multifactorial process including intravascular volume depletion, dehydration, diarrhea and renal injury Electrolyte imbalance with hypomagnesemia History of coronary artery disease Doa-grhchmg-uqfufvxaw diabetes mellitus Peripheral neuropathy related to diabetes Chronic pain syndrome related to ankylosing spondylitis Medications have been reviewed and we will continue. Agree with tapering down the hydrocortisone. Doppler studies of both legs have been negative. CT and chest x-ray results have been reviewed. We will put the patient on DuoNeb and budesonide as well as start encouraging use of incentive spirometer. We will continue to monitor labs and adjust treatment as necessary. I performed an examination of the patient and discussed their management with the nurse practitioner. I have reviewed the nurse practitioner's note and agree with the documented findings and plan of care.
--- NOTE | 2016-11-30 10:45 | PN ---
PRESENT ILLNESS: A 56-year-old white male with long-standing history of multiple infections was admitted with a day of spiked fever, feeling very weak and profuse diarrhea. He did drink a fair amount according to his and he was placed in the hospital accordingly when he became hypotensive in the ER after 2.5 L of fluid. He had no severe pain, but he did have moderate pain and cramping which he tells me about now. He feels that the pain has been there for a period of time and at one time he said it felt somewhat like the pancreatitis. Today, he stated did not feel too much like pancreatitis. He also states that he is having severe hand and arm pain with some swelling, but has improved some since yesterday. He is on Solu-Cortef. He has also had a long-standing history of previous MRSA infection, which was treated. Today he says he has noticed more of a cough then what he had previously. He is no longer hypotensive at this time. His abdomen feels good. He has had no diarrhea, nausea or vomiting. He describes this pain as constant in the abdomen, occasionally cramping. Hand pain is a stabbing type of pain at the base of his thumb and it is intermittent. REVIEW OF SYSTEMS: PULMONARY: He has a cough. He is bringing up a minimal amount of phlegm. He has had no chest pain or hemoptysis. CARDIAC: Really no chest pain. He has not really had any palpitations. No true orthopnea or paroxysmal nocturnal dyspnea. GI: No diarrhea. He has occasional cramping. He has had excessive amount of gas last p.m. No nausea or vomiting at this time. : He has had a fair amount of urination. He says he has been drinking well, but yet no polyuria or polydipsia. NEUROMUSCULAR: He says just his hands at the base, still are very sore. He says his dorsal hand joints are less. His elbows are still sore and he has less muscle discomfort today. SKIN: He says he really has no breakdown of the skin, but it is always dry. He showed me areas on his elbows. This is not any different than it usually is. PSYCHIATRIC: He says he is not depressed. He is just unhappy with his quality of life at this period of time. He does have a long-standing history of diabetes and ankylosing spondylitis. I really think this really part of his immunocompromised. The other fact is that he does have a mass on the pancreas that is to be removed. It appears that is not cancerous. Unfortunately, the infection that he has had the infections afterwards make me just wonder if we are not dealing with something that might be cancerous or precancerous. His family history is unchanged for his mother and father. SOCIAL HISTORY: Again, nondrinker. At this time, stop smoking greater than 10 years ago now or right with his first heart attack. His vital signs reviewed. Blood pressure 122/68. His heart rate is in the 60s. His respiratory rate is 14. Temperature is 98.1, which was just completed. He is on room air 97. ENT shows a very dry mouth. Neck is supple. Facial skin is within normal limits with no swelling. PULMONARY: Chest is essentially clear to auscultation except for some rhonchi in very upper part of his lungs. HEART: Sinus rhythm with no murmur. ABDOMEN: Soft. There is minimal tenderness. It seems to be more in the left lower quadrant, but no palpable masses. No organomegaly. EXTREMITIES: He has got swelling and pain at the base of the first metacarpal on both hands. He has dystrophic changes there which has been documented to be moderately severe arthritis. He has got some pain in his elbow with crunching on movement from his ( ) . His ankles are other than the swelling that is present, which has been there for a fair amount of time and is definitely dependent edema and the patient has had a fair amount of hypoalbuminemia. Rectal examination is deferred. PSYCHIATRIC: His affect appears good, actually smiling from times and him and I have a very good relationship. LABORATORY: Blood sugars are still up in the 200 range. He did have a 170 this morning and I feel that is probably a direct relationship with him being started on Lantus. His magnesium still 1.3 and that is being corrected. Potassium is 4.5. His sodium was 141. No CBC has been done today. ASSESSMENT: 1. With CAT scan showing an adenoma on his left adrenal which is about 1 cm we will reflect in the previous to see if it was there previously. It also shows a posterior right basal opacification representing either atelectasis or a pneumonia, which was not seen initially but is seen now after hydration. Pneumonia, atelectasis. Venous Doppler again here in this situation was negative 2. Immune compromised state diabetes related perhaps his arthritis and perhaps other situations. 3. Type 2 diabetes. 4. History of coronary artery disease with previous myocardial infarction. 5. Hypertension. 6. Peripheral neuropathy. 7. Cervical arthritis with degenerative disc disease. 8. Hyperlipidemia. 9. Chronic pain from his ankylosing spondylitis. 10. Peripheral neuropathy with diabetes. 11. Resolving hypotension. 12. History of hypertension. PLAN: Continue medications with fentanyl patch, his [place]. He is on albuterol updrafts every 6 hours. Will see if we cannot add some Mucinex for productivity. We will keep him at the Lantus at this time at 25 subcu and insulin to scale. Cortef was 100 mg every 8 hours and continue with the gabapentin and also the levofloxacin. His microbiology shows no growth on blood cultures going over 24almost 48. Urine culture was negative post 18 hours. I think we will just continue to treat this pneumonia. Will talk with Dr. Morton about if this patient and whatever else we might need for perhaps trial of ( ) if he fits the criteria.
[2016-11-30 11:47] LABS: Glucose,Whole Blood 192 mg/dL (75-99)
[2016-11-30] MEDS: IPRATROPIUM-ALBUTEROL 3 ML NEB INHALATION SCH ×2 (13:15→19:31)
[2016-11-30] MEDS: LEVOFLOXACIN 750MG-D5W PMX 750 MG in DEXTROSE/WATER 1 150ML.BAG IVPB SCH (14:17)
[2016-11-30 17:24] LABS: Glucose,Whole Blood 163 mg/dL (75-99)
--- NOTE | 2016-11-30 17:51 | P.PN ---
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 Because of this the patient was having some mild the bowel discomforts but it was not severe. He was having difficulty eating and drinking without significant nausea or severe abdominal pain. His abdomen does not feel like it did when he has really recent bout of acute pancreatitis. Because he cannot control the diarrhea he presented to the emergency room. The patient was admitted to hospital and then he developed evidence of some hypotension and received some fluid and was transferred to the intensive care unit because of concerns to sepsis. The patient has had 3 recent hospitalizations due to significant illnesses with the first being a bout of pancreatitis and then fever and most recently had pneumonia. He had recently finished his course of antibiotic therapy for the pneumonia and also complete his course of steroid therapy. He now presents with the above symptoms feeling very poorly. He has generalized weakness. He feels very poorly overall. Relates that his pulmonary system is doing well he is not having significant cough or sputum production As noted he has the history of the extensive MRSA infection that was at his right hand that resulted in a significant bacteremia the required an extensive amount of antibiotic therapy and surgery to the risk for care. He is immunocompromised due to his diabetes mellitus as well as his ankylosing spondylitis and arthritis. Patient is feeling considerably better today. He is no longer hypotensive. He is having no ongoing fevers or chills. His abdominal discomforts nausea emesis and diarrhea have all resolved. Objective - Vital Signs Vital signs: Vital Signs Temp 97.6 F 11/30/16 13:40 Pulse 80 11/30/16 13:40 Resp 20 11/30/16 13:40 BP 123/74 11/30/16 13:40 Pulse Ox 93 L 11/30/16 13:40 Intake & Output 11/29/16 11/30/16 11/30/16 18:59 06:59 18:59 Intake Total 1830 1530 120 Output Total 1050 535 900 Balance 780 995 -780 Weight 83.8 kg Intake: IV 150 Levofloxacin 750Mg-D5w 150 Pmx 750 mg In Dextrose/ Water 1 150ml.bag @ 100 mls/hr IVPB ONCE [facility] Rx#: [id number] Intake, IV Titration 1200 1350 Amount Magnesium Sulfate-D5w Pmx 300 1 gm In Dextrose/Water 1 100ml.bag @ 100 mls/hr IVPB Q1H [facility] Rx#: [id number] Sodium Chloride 0.9% 1, 900 1350 000 ml @ 150 mls/hr IV . Q6H40M [facility] Rx#:[id number] Oral 480 180 120 Output: Urine 1050 535 900 Other: Voiding Method Urinal Urinal # Bowel Movements 0 - Exam 56-year-old male who has complaints complains of generalized fatigue and malaise and body aches HEENT: Anicteric conjunctiva are pink and moist nasal mucosa grossly intact without significant lesions, there is no thrush. Mucosa dry Neck: The neck is supple without significant lymphadenopathy or thyromegaly. Lungs: Good bilateral air entry without significant crackles or wheezes are heard There is no significant bronchial sounds. There is no egophony or dullness. Heart: Irregular with an audible S1 and S2 no S3 soft S4 no murmur click or rub. Abdomen: Positive bowel sounds soft and nontender without palpable masses or organomegaly. There was no guarding or rebound. Extremities: The left upper extremity shows no acute difficulties, IV site is present, the right wrist reveals evidence of the prior surgical intervention. The extensive prior wound has healed. No evidence of any erythema or tenderness at that site. Skin: Area of ulceration to the buttocks as healed only has some residual mild skin discoloration with some erythema to the area where he had dressing in place. There is no epitrochlear or axillary lymphadenopathy. No other lymphadenopathy is noted. Neuro: Awake alert oriented to person place and time. There are no acute new gross focal sensory motor deficits. - Labs CBC & Chem 7: 11/29/16 04:35 11/30/16 05:23 Labs: Abnormal Lab Results - Last 24 Hours (Table) 11/29/16 11/30/16 11/30/16 Range/Units 20:25 05:23 07:21 Chloride 111 H (98-107) mmol/L Carbon Dioxide 21 L (22-30) mmol/L Glucose 164 H (74-99) mg/dL POC Glucose (mg/dL) 217 H 170 H (75-99) mg/dL Calcium 8.0 L (8.4-10.2) mg/dL Magnesium 1.3 L (1.6-2.3) mg/dL 11/30/16 11/30/16 Range/Units 11:41 17:21 Chloride (98-107) mmol/L Carbon Dioxide (22-30) mmol/L Glucose (74-99) mg/dL POC Glucose (mg/dL) 192 H 163 H (75-99) mg/dL Calcium (8.4-10.2) mg/dL Magnesium (1.6-2.3) mg/dL Laboratory Results WBC 6.3 k/uL (3.8-10.6) 11/29/16 04:35 RBC 3.57 m/uL (4.30-5.90) L 11/29/16 04:35 Hgb 10.5 gm/dL (13.0-17.5) L 11/29/16 04:35 Hct 36.1 % (39.0-53.0) L 11/29/16 04:35 MCV 101.0 fL (80.0-100.0) H 11/29/16 04:35 MCH 29.5 pg (25.0-35.0) 11/29/16 04:35 MCHC 29.2 g/dL (31.0-37.0) L 11/29/16 04:35 RDW 15.4 % (11.5-15.5) 11/29/16 04:35 Plt Count 225 k/uL (150-450) 11/29/16 04:35 Neutrophils % 89 % 11/29/16 04:35 Lymphocytes % 7 % 11/29/16 04:35 Monocytes % 3 % 11/29/16 04:35 Eosinophils % 0 % 11/29/16 04:35 Basophils % 0 % 11/29/16 04:35 Neutrophils # 5.6 k/uL (1.3-7.7) 11/29/16 04:35 Lymphocytes # 0.4 k/uL (1.0-4.8) L 11/29/16 04:35 Monocytes # 0.2 k/uL (0-1.0) 11/29/16 04:35 Eosinophils # 0.0 k/uL (0-0.7) 11/29/16 04:35 Basophils # 0.0 k/uL (0-0.2) 11/29/16 04:35 Hypochromasia Marked 11/29/16 04:35 Macrocytosis Slight 11/29/16 04:35 PT 11.5 sec (9.0-12.0) 11/28/16 08:02 INR 1.1 (<1.1) 11/28/16 08:02 APTT 25.4 sec (22.0-30.0) 11/28/16 08:02 Sodium 141 mmol/L (137-145) 11/30/16 05:23 Potassium 4.5 mmol/L (3.5-5.1) 11/30/16 05:23 Chloride 111 mmol/L (98-107) H 11/30/16 05:23 Carbon Dioxide 21 mmol/L (22-30) L 11/30/16 05:23 Anion Gap 9 mmol/L 11/30/16 05:23 BUN 20 mg/dL (9-20) 11/30/16 05:23 Creatinine 0.80 mg/dL (0.66-1.25) 11/30/16 05:23 Est GFR (MDRD) Af Amer >60 (>60 ml/min/1.73 sqM) 11/30/16 05:23 Est GFR (MDRD) Non-Af >60 (>60 ml/min/1.73 sqM) 11/30/16 05:23 Glucose 164 mg/dL (74-99) H 11/30/16 05:23 POC Glucose (mg/dL) 163 mg/dL (75-99) H 11/30/16 17:21 POC Glu Patient Registration Rep ID 11/30/16 17:[address] Glu mg/dL 137 mg/dL 11/28/16 08:02 Hemoglobin A1c 6.4 % (4.2-6.1) H 11/28/16 08:02 Plasma Lactic Acid Freddy 1.6 mmol/L (0.7-2.0) 11/28/16 11:00 Calcium 8.0 mg/dL (8.4-10.2) L 11/30/16 05:23 Phosphorus 3.7 mg/dL (2.5-4.5) 11/29/16 04:35 Magnesium 1.3 mg/dL (1.6-2.3) L 11/30/16 05:23 Total Bilirubin 0.7 mg/dL (0.2-1.3) 11/28/16 08:02 AST 31 U/L (17-59) 11/28/16 08:02 ALT 35 U/L (21-72) 11/28/16 08:02 Alkaline Phosphatase 87 U/L (38-126) 11/28/16 08:02 Total Creatine Kinase 109 U/L (55-170) 11/28/16 08:02 CK-MB (CK-2) 3.9 ng/mL (0.0-2.4) H* 11/28/16 08:02 CK-MB (CK-2) Rel Index 3.6 11/28/16 08:02 Troponin I <0.012 ng/mL (0.000-0.034) 11/28/16 08:02 Total Protein 6.5 g/dL (6.3-8.2) 11/28/16 08:02 Albumin 3.5 g/dL (3.5-5.0) 11/28/16 08:02 Cortisol 13 ug/dL 11/28/16 08:02 Urine Color Yellow 11/28/16 10:46 Urine Appearance Clear (Clear) 11/28/16 10:46 Urine pH 5.5 (5.0-8.0) 11/28/16 10:46 Ur Specific [place] 1.019 (1.001-1.035) 11/28/16 10:46 Urine Protein 1+ (Negative) H 11/28/16 10:46 Urine Glucose (UA) Negative (Negative) 11/28/16 10:46 Urine Ketones Negative (Negative) 11/28/16 10:46 Urine Blood Negative (Negative) 11/28/16 10:46 Urine Nitrite Negative (Negative) 11/28/16 10:46 Urine Bilirubin Negative (Negative) 11/28/16 10:46 Urine Urobilinogen <2.0 mg/dL (<2.0) 11/28/16 10:46 Ur Leukocyte Esterase Negative (Negative) 11/28/16 10:46 Urine WBC 4 /hpf (0-5) 11/28/16 10:46 Urine Bacteria Rare /hpf (None) H 11/28/16 10:46 Hyaline Casts 5 /lpf (0-2) H 11/28/16 10:46 C. difficile (EIA) Intrp Negative (Negative) 11/28/16 10:46 Influenza Type A RNA Not Detected (Not Detectd) 11/28/16 08:13 Influenza Type B (PCR) Not Detected (Not Detectd) 11/28/16 08:13 Microbiology 11/28/16 08:02 Blood Blood Culture - Preliminary No Growth after 48 hours 11/28/16 10:46 Urine,Catheterized Urine Culture - Final Assessment and Plan (1) Fever Narrative/Plan: Very pleasant 56-year-old male who has multiple medical troubles presents to Hospital for the onset of fever and abdominal symptoms mostly with diarrhea. He 's had some nausea without emesis and has noted no hematemesis melena or hematochezia. He'll feel very poorly and was brought in and then became somewhat hypotensive and required fluids and transferred to intensive care unit. At admission his lactic acid was elevated on follow-up after fluids was improved. At this time a random stat cortisol level was requested. will trial some hydrocortisone with concerns for adrenal insufficiency given the fact that he has been on steroid therapy as of late. If he is with adrenal insufficiency will treatment and steroids until we can be of successfully tapered over time. Stool for C. diff was sent to the laboratory and is negative. Influenza A and B were negative. Urinalysis is negative. Patient however did have significant leukocytosis. Concerns to a gastroenteritis that could be viral in nature versus bacterial and consequently stool studies are requested. Was started on antibiotic therapy with Levaquin with his recent history of pneumonia and will be monitored. Lastly patient did have difficulties with what appeared to be some lactic acidosis in the recent past. Thought to be due to his allopurinol therapy. This is discontinued and he received some steroid therapy. Was doing relatively well until this acute onset of symptoms . noted concerns to adrenal insufficiency but also have concerns to the possibility of lactic acidosis from a different medication, he is on metformin and this is discontinued especially since he does have acute renal failure also at this point in time also. Is receiving fluids in the ICU and is being monitored with marked improvement in this day. His gastrointestinal symptoms improved. His renal failure has improved. With the use of steroids in the glucose is elevated being monitored and treated.. Nephrology is following. Steroids are being rapidly tapered which is appropriate given it appears that the metformin has induced the acidosis and gastrointestinal symptoms. His acute renal failure fortunately has resolved. As noted is now much improved. Likely discharge home soon and her rapidly tapering dose of steroids. Should not resume metformin the outpatient setting. Status: Acute (2) Diarrhea Status: Acute
[2016-11-30] MEDS: BUDESONIDE 1 MG/2 ML NEBU INHALATION SCH (19:31)
[2016-11-30] MEDS: LEVOTHYROXINE 50 MCG TAB PO SCH (20:32)
[2016-11-30] MEDS: ASPIRIN 325 MG TAB PO SCH (20:32)
[2016-11-30] MEDS: ATORVASTATIN 40 MG TAB PO SCH (20:32)
[2016-11-30] MEDS: MONTELUKAST 10 MG TAB PO SCH (20:33)
[2016-11-30 21:14] LABS: Glucose,Whole Blood 176 mg/dL (75-99)
[2016-11-30] MEDS: INSULIN GLARGINE 100 UNIT/ML 10 ML VIAL SQ SCH (21:51)
[2016-12-01] MEDS: amLODIPine 5 MG TAB PO SCH ×2 (00:44→21:28)
[2016-12-01] MEDS: HYDROcodone/APAP 10-325MG 1 EACH TAB PO PRN ×6 (01:28→21:25)
[2016-12-01] MEDS: HEPARIN SODIUM,PORCINE 5,000 UNIT/ML 1 ML VIAL SQ SCH ×3 (01:37→16:22)
[2016-12-01 07:41] LABS: Glucose,Whole Blood 123 mg/dL (75-99)
[2016-12-01] MEDS: INSULIN LISPRO (humaLOG) 300 UNIT/3 ML VIAL SQ SCH ×7 (08:00→21:26)
[2016-12-01] MEDS: GABAPENTIN 400 MG CAP PO SCH ×4 (08:06→21:20)
[2016-12-01] MEDS: HYDROCORTISONE SUCCINATE 100 MG/2 ML VIAL IV SCH ×2 (08:06→21:20)
[2016-12-01] MEDS: PANTOPRAZOLE 40 MG TABLET PO SCH ×2 (08:06→17:33)
[2016-12-01] MEDS: BUDESONIDE 1 MG/2 ML NEBU INHALATION SCH ×2 (08:47→18:54)
[2016-12-01] MEDS: IPRATROPIUM-ALBUTEROL 3 ML NEB INHALATION SCH ×3 (08:47→18:54)
[2016-12-01] MEDS: MAGNESIUM SULFATE-D5W PMX 1 GM in DEXTROSE/WATER 1 100ML.BAG IVPB SCH ×2 (11:34→12:37)
[2016-12-01 11:56] LABS: Glucose,Whole Blood 178 mg/dL (75-99)
[2016-12-01] MEDS: LEVOFLOXACIN 750 MG TAB PO SCH (12:37)
--- NOTE | 2016-12-01 13:52 | PN ---
A 56-year-old white male who is admitted into the hospital because of profuse diarrhea and fever. After evaluation with nonspecific abdominal pain, which patient said he did not feel like acute pancreatitis, it appeared on examination that he did not have an acute abdomen. After further evaluation we went back and saw the possibility that he had severe hypotension, and was admitted to the ICU after having 3.5 liters of fluid and blood pressure still dropping down into the 80s. He was started on 5 mg of Levophed and then eventually tapered off when we got his blood pressure up to 120. At that period of time further evaluation showed that he had an elevation in lactic acid. He was put on IV steroids along with antibiotics. Blood cultures, sputum culture, and urine cultures were then completed. His resolution of hypotension occurred after IV fluids. His chills resolved. His sensorium returned to normal. The patient in general just felt better, was transferred from there to a regular floor. At this period of time. Lab work is not available. New CBC or complete metabolic profile was drawn. His magnesium was still low at 1.2. His CT scan of the lung which was completed showed what appeared to be probable atelectasis versus pneumonia in the right lower lung with minimal amount of pleural effusion, and a 1 cm nodule on the adrenal gland, questionable of which was there previously. He has kept on Solu-Medrol, even though it has been decreased in dose. He was kept on his pain medication. He is on his updrafts and antibiotic with Levaquin 750 mg. His metformin has been eliminated per Dr. Hardin, because he feels that this was a contributory mechanism to his diarrhea. But his creatinine is at 0.8, so there is no renal reason to decrease his metformin. Liver function tests, since he has been in the hospital, have all been within normal limits and last draw for them was on 11/28. REVIEW OF SYSTEMS: CARDIOPULMONARY: No shortness of breath. No chest pain, orthopnea, no paroxysmal nocturnal dyspnea. GI: Resolving diarrhea up. No hematemesis. No hematochezia. : He is urinating. NEUROMUSCULAR: Good strength in his hands and his legs. He does have severe pain in the base of his thumbs bilaterally. SKIN: Within normal limits with no breakdown. PHYSICAL EXAMINATION: VITAL SIGNS: Blood pressure 150/80, heart rate is 60, respiratory is 18, temperature 98. ENT is within normal limits. NECK: Supple with midline trachea. CHEST: Essentially clear to auscultation. HEART: Sinus rhythm with no murmur. ABDOMEN: Soft, nontender, with no organomegaly at this time. Some swelling in his hands and very painful wrists, even though swelling has gone down tremendously. ASSESSMENT: 1. Probable pneumonia/atelectasis. 2. Resolving hypotension and a history of hypertension. 3. Question sepsis, though blood cultures are negative and urine cultures are negative and patient did not ever give a sputum culture, not able to bring up material for sputum culture. 4. History of pancreatic mass. 5. Adrenal adenoma, to be followed. 6. Immune compromised state. 7. Diabetes. 8. Arthritis. 9. Type 2 diabetes. 10. History of coronary artery disease with myocardial infarction. 11. Peripheral neuropathy, compatible with both his severe degenerative disk disease and diabetes. Type 2 diabetes is now controlled with insulin, but he has had good control of his diabetes with hemoglobin A1c in the sixes for many months. 12. Ankylosing spondylitis with a history of calcinosis. 13. Hypotension. PLAN: Continue with the IV antibiotics. He is on the Cortef, we will switched him over tomorrow morning 20 of Cortef p.o. His pneumonia is to be treated with the antibiotic accordingly. He will continue it for 7 days. His magnesium was low at 1.8. We will give him 2 more grams but will repeat it again with the possibility of needing more magnesium with maybe chronic storage problem. I had a long talk with him to re-look into his pancreatic mass situation. Dr. Lr stated he could have the surgery done after he had his back surgery. Unfortunately, we have had a problem with infection over the last 6 weeks. We will give Dr. Lr a call at [facility] and perhaps reinvestigate this problem earlier than later. All of this was explained to the patient and he agreed.
[2016-12-01 17:40] LABS: Glucose,Whole Blood 209 mg/dL (75-99)
[2016-12-01 21:12] LABS: Glucose,Whole Blood 172 mg/dL (75-99)
[2016-12-01] MEDS: ASPIRIN 325 MG TAB PO SCH (21:19)
[2016-12-01] MEDS: ATORVASTATIN 40 MG TAB PO SCH (21:20)
[2016-12-01] MEDS: MONTELUKAST 10 MG TAB PO SCH (21:21)
[2016-12-01] MEDS: LEVOTHYROXINE 50 MCG TAB PO SCH (21:21)
[2016-12-01] MEDS: INSULIN GLARGINE 100 UNIT/ML 10 ML VIAL SQ SCH (21:26)
[2016-12-02] MEDS: HEPARIN SODIUM,PORCINE 5,000 UNIT/ML 1 ML VIAL SQ SCH ×4 (00:30→23:16)
[2016-12-02] MEDS: HYDROcodone/APAP 10-325MG 1 EACH TAB PO PRN ×6 (02:00→23:16)
[2016-12-02 07:43] LABS: Glucose,Whole Blood 135 mg/dL (75-99)
[2016-12-02] MEDS: INSULIN LISPRO (humaLOG) 300 UNIT/3 ML VIAL SQ SCH ×7 (08:06→22:03)
[2016-12-02] MEDS: GABAPENTIN 400 MG CAP PO SCH ×4 (08:07→22:04)
[2016-12-02] MEDS: PANTOPRAZOLE 40 MG TABLET PO SCH ×2 (08:08→18:52)
[2016-12-02] MEDS: HYDROCORTISONE 20 MG TAB PO SCH (08:08)
[2016-12-02] MEDS: IPRATROPIUM-ALBUTEROL 3 ML NEB INHALATION SCH ×3 (08:20→20:22)
[2016-12-02] MEDS: BUDESONIDE 1 MG/2 ML NEBU INHALATION SCH ×2 (08:20→20:21)
[2016-12-02 09:58] LABS: Basophils % (A) 0 %; CH 29.2; CHCM 30.7; Eosinophils # (A) 0.1 k/uL (0-0.7); Eosinophils % (A) 1 %; HCT 37.9 % (39.0-53.0); HDW 2.66; HGB 11.9 gm/dL (13.0-17.5); Hypochromasia Moderate; Luc # (Auto) 0.18; Luc % (Auto) 3; Lymphocytes # (A) 1.4 k/uL (1.0-4.8); Lymphocytes % (A) 21 %; MCH 29.9 pg (25.0-35.0); MCHC 31.3 g/dL (31.0-37.0); Mean Platelet Volume 7.9; Monocytes # (A) 0.4 k/uL (0-1.0); Monocytes % (A) 7 %; Neutrophils # (A) 4.5 k/uL (1.3-7.7); Neutrophils % (A) 68 %; RBC 3.96 m/uL (4.30-5.90); RDW 15.3 % (11.5-15.5); WBC 6.6 k/uL (3.8-10.6); WBC (Perox) 6.74
[2016-12-02 10:07] LABS: ALT 26 U/L (21-72); AST 24 U/L (17-59); Alkaline Phosphatase 73 U/L (38-126); Anion Gap 12 mmol/L; Blood Urea Nitrogen 13 mg/dL (9-20); Calcium 8.4 mg/dL (8.4-10.2); Carbon Dioxide 31 mmol/L (22-30); Chloride 100 mmol/L (98-107); Glucose 182 mg/dL (74-99); Non-African American GFR(MDRD) >60 (>60 ml/min/1.73 sqM); Potassium 3.5 mmol/L (3.5-5.1); Sodium 143 mmol/L (137-145); Total Bilirubin 0.7 mg/dL (0.2-1.3); Total Protein 6.2 g/dL (6.3-8.2)
[2016-12-02 10:08] LABS: MCV 95.5 fL (80.0-100.0)
--- NOTE | 2016-12-02 11:02 | PN ---
DATE OF SERVICE: 12/01/2016 Mr. Benja Ribera is seen, evaluated and examined. He is sitting upright on the bed, breathing comfortably. Cough, congestion and shortness of breath has improved significantly. He is feeling less pain. He is able to take deep breaths now, which is a significant improvement compared to prior exam. His last set of vitals include blood pressure of 151/77, respiratory rate 16, pulse 80, temperature 98, saturation of 98% on room air. HEENT: Unremarkable. NECK: Supple. LUNGS: Good air entry bilaterally. HEART: Regular rate and rhythm. S1 and S2 audible. ABDOMEN: Soft. No rebound or rigidity. EXTREMITIES: +1 peripheral pulses. NEUROLOGICAL EXAMINATION: Otherwise, awake and alert. LABORATORY DATA: Reviewed. Medications reviewed as well. Culture results and report are reviewed. Blood cultures, no growth so far. Urine culture also no growth so far. Last radiographic studies performed, CT scan of the chest on 11/29/2016 revealing patchy opacity right base, likely pneumonia, along with intermediate 1 cm nodule in the left adrenal gland, likely adenoma on the left side. IMPRESSION: 1. Right lower lobe pneumonia. 2. Hypotension, likely related to sepsis versus systemic inflammatory response syndrome-like process. Patient, however, responded well with fluid resuscitation. 3. Adrenal adenoma, 1 cm in size, on the left side. We will monitor and observe. 4. History of pancreatic mass. 5. Coronary artery disease and myocardial infarction. PLAN AND RECOMMENDATIONS: Continue supportive care. Continue antibiotics. Increase activity as tolerated. Agree with tapering down the Cortef to as minimum dose as possible. The patient is being considered for further evaluation at a tertiary care center for pancreatic mass surgery. Will follow.
[2016-12-02 11:25] LABS: Glucose,Whole Blood 136 mg/dL (75-99)
[2016-12-02] MEDS ORDERED: guaiFENesin 600 MG TABLET.ER PO STA (12:53)
[2016-12-02] MEDS: LEVOFLOXACIN 750 MG TAB PO SCH (12:54)
[2016-12-02] MEDS: MAGNESIUM SULFATE-D5W PMX 1 GM in DEXTROSE/WATER 1 100ML.BAG IVPB SCH ×4 (14:19→18:52)
[2016-12-02 18:05] LABS: Glucose,Whole Blood 87 mg/dL (75-99)
[2016-12-02] MEDS: guaiFENesin 600 MG TABLET.ER PO SCH ×2 (18:05→23:16)
--- NOTE | 2016-12-02 18:14 | PN ---
DATE OF SERVICE: 12/02/2016 PRESENT ILLNESS: Again, a 56-year-old white male who was admitted to the hospital because of profuse diarrhea and fever. After evaluation nonspecific abdominal pain it was felt that it was not like his pancreatitis and no other symptomatology was ( ). He did have a discomfort in his abdomen. He had severe hypotension and had to be transferred to ICU. That ICU encounter involved 3.5 liters of fluid. At that time he was also started 5 of Levophed and eventually was decreased when we got his blood pressure up to 120. At that period of time, further evaluation showed that he had an elevated lactic acid. He was then put on IV steroids with antibiotics. Blood cultures and urine cultures have been negative. Corrected, we have not obtained sputum cultures yet. His resolution of IV hypotension occurred both with the IV fluids and his Levophed was discontinued. Of interest is sensorium returned to normal quite quickly. At that period of time he was transferred to a regular medications floor with telemetry. Telemetry continued to be normal and has been discontinued on this day. His magnesium level is 1.2. He has had 8 grams per replacement. We are actually giving him 2 more today. Also his CAT scan of the lungs showed atelectasis but with rhonchi is more like pneumonia at that period of time, pleural effusion a little bit in the left and he has a 1 cm nodule on his adrenal gland which we will evaluate, but it is suspected it was there before. He was continued also on his IV Cortef and now has been decreased and put on a p.o. dose as he has been on updrafts, antibiotics, along with Levaquin. Dr. Hardin been following him accordingly as has flamer sealer, Dr. Morton. At this point and his creatinine was 0.8 and there is no real reason to discontinue metformin but Dr. Hardin felt according to his notes that this might have accentuated his diarrhea. Liver function tests at this time do remain normal. His CBC at this time is within normal limits. His past medical history is still significant for pancreatic mass, which is still to be evaluated, severe degenerative disc disease of the lumbar spine which he has been set up for, intractable pain, which has been set up for surgery with Dr. Chang, which has been counseled multiple times, adrenal adenoma that will be followed up in the future. He has had multiple myocardial infarctions. Obviously he has had coronary artery disease evaluation and treatment. He has had custodial diabetes that has responded well to oral medications at this time. REVIEW OF SYSTEMS: CARDIOPULMONARY: He has had a cough with moderate production but basically clear. No chest pain or orthopnea. No nocturnal dyspnea. GI: No hematemesis, melena, hematochezia. : He is urinating normally. NEUROMUSCULAR: Good strength he has had this pain in his hands and his wrists bilaterally. SKIN: Has been normal. PSYCHIATRIC: He says he is not depressed just anxious to go home. At this point his physical examination showed a blood pressure 148/80, heart rate was in the 60s, respiratory rate is 18, 98 temperature. ENT was within normal limits. Neck is supple. Midline trachea. Chest essentially clear except for some rhonchi in the left lower lobe. HEART: Sinus rhythm with no murmur. Abdomen is soft, nontender, with no organomegaly. He has some swelling in his hands and wrists. The skin has just rough areas, especially in the back of his elbows on his knees and wrists and then on the back of his scalp. NEURO/PSYCHIATRIC: He is well oriented to person, place, and thing. Responds well to all questioning. Gross neuro examination at this time is stable. ASSESSMENT: 1. Probable pneumonia with atelectasis. 2. Resolving severe hypotension from diarrhea with negative urine and blood cultures. 3. Previous history of sepsis with no positive culture. 4. Pancreatic mass that needs to be investigated. 5. Severe degenerative disc disease. 6. Adrenal adenoma obviously immune compromised state. 7. Type 2 diabetes with insulin support. 8. Generalized osteoarthritis, but he does have a history of ankylosing spondylitis and ankylosing calcinosis. 9. History of coronary artery disease with previous myocardial infarction with a good ejection fracture of greater than 35. 10. Peripheral neuropathy felt to be a combination degenerative disc and his diabetes due to the fact that his A1c for the most part of been in excellent range. 11. Hypotension. We have to replace the potassium. We did magnesium. We gave him ( ). We DC'd his telemetry today. We put him on Cortef 20 p.o. yesterday which we will continue. His Levaquin is now an oral dose. He is on insulin to scale and Lantus at 25 mg. Please refer to my orders.
[2016-12-02 21:20] LABS: Glucose,Whole Blood 86 mg/dL (75-99)
[2016-12-02] MEDS: ASPIRIN 325 MG TAB PO SCH (22:02)
[2016-12-02] MEDS: MONTELUKAST 10 MG TAB PO SCH (22:03)
[2016-12-02] MEDS: LEVOTHYROXINE 50 MCG TAB PO SCH (22:03)
[2016-12-02] MEDS: INSULIN GLARGINE 100 UNIT/ML 10 ML VIAL SQ SCH (22:03)
[2016-12-02] MEDS: ATORVASTATIN 40 MG TAB PO SCH (22:03)
[2016-12-02] MEDS: amLODIPine 5 MG TAB PO SCH (22:10)
[2016-12-03] MEDS: HYDROcodone/APAP 10-325MG 1 EACH TAB PO PRN ×2 (03:03→07:06)
[2016-12-03] MEDS: guaiFENesin 600 MG TABLET.ER PO SCH ×3 (06:28→11:40)
[2016-12-03 07:26] LABS: Glucose,Whole Blood 81 mg/dL (75-99)
[2016-12-03 07:45] VITALS: BP 134/58; PULSE 60; RESP 20; TEMP 97.2
[2016-12-03] MEDS: GABAPENTIN 400 MG CAP PO SCH ×2 (08:47→11:38)
[2016-12-03] MEDS: HYDROCORTISONE 20 MG TAB PO SCH (08:48)
[2016-12-03] MEDS: PANTOPRAZOLE 40 MG TABLET PO SCH (08:48)
[2016-12-03] MEDS: INSULIN LISPRO (humaLOG) 300 UNIT/3 ML VIAL SQ SCH ×2 (08:49→08:50)
[2016-12-03] MEDS: HEPARIN SODIUM,PORCINE 5,000 UNIT/ML 1 ML VIAL SQ SCH (08:50)
[2016-12-03] MEDS: BUDESONIDE 1 MG/2 ML NEBU INHALATION SCH (09:25)
[2016-12-03] MEDS: IPRATROPIUM-ALBUTEROL 3 ML NEB INHALATION SCH ×2 (09:26→12:59)
--- NOTE | 2016-12-03 10:04 | PN ---
DATE OF SERVICE: 12/02/2016 Mr. Benja Ribera is a 56-year-old male who was seen, evaluated, examined. Clinically patient is doing well. He is more awake and alert, breathing comfortably. No obvious distress present. Cough, congestion and shortness of breath has improved. He is breathing more easily. His hypotension and leukocytosis are stable now. The patient is evaluated on the fourth floor. His last set of vitals include blood pressure 123/63, respiratory rate 16, pulse 53, temperature 98, saturation 95% on room air. HEENT EXAMINATION: Otherwise unremarkable. NECK: Supple. LUNGS: Good air entry bilaterally. HEART: Regular rate and rhythm. ABDOMEN: Soft. NEUROLOGICAL EXAMINATION: Awake and alert. IMPRESSION: 1. Right lower lobe pneumonia. 2. Hypotension related to systemic inflammatory response syndrome and sepsis-like process, improved and stabilized. 3. Adrenal adenoma. 4. History of pancreatic mass. 5. Coronary artery disease and myocardial infarction. PLAN AND RECOMMENDATIONS: Continue antibiotics. Continue supportive care. Increase activity as tolerated. Will follow this patient in outpatient setting to document resolution. Further work-up and evaluation of COPD to follow.
[2016-12-03 10:13] LABS: Anion Gap 10 mmol/L; Calcium 8.5 mg/dL (8.4-10.2); Carbon Dioxide 36 mmol/L (22-30); Chloride 99 mmol/L (98-107); Glucose 98 mg/dL (74-99); Non-African American GFR(MDRD) >60 (>60 ml/min/1.73 sqM); Sodium 145 mmol/L (137-145)
[2016-12-03 10:23] LABS: Blood Urea Nitrogen 15 mg/dL (9-20); Magnesium 1.4 mg/dL (1.6-2.3); Potassium 3.7 mmol/L (3.5-5.1)
[2016-12-03] MEDS ORDERED: Magnesium Replacement Protocol 1 EACH MISC MISCELLANE PRN (10:39)
--- NOTE | 2016-12-03 10:48 | P.PN ---
Subjective This is a 56-year-old male who is seen and evaluated and examined today on the fourth floor. This patient was recently admitted to the hospital from the emergency room for spiking fevers of 104, nausea, vomiting. He denies any diarrhea. The patient also has a nonproductive dry cough as well. Patient decided to come into the emergency room a few days after illness onset. And he was admitted to the medical surgical floor, he was then found to be hypotensive and was transferred up to the ICU for fluid resuscitation and a Levophed drip. Patient has been off the Levophed drip and has been downgraded note back to the medical surgical floor. The patient has been hemodynamically stable. Patient is awake and alert making urine he also has a history of chronic pain syndrome and continues to complain of nonspecific pain all over his body. He also has a history of chronic neuropathy. Upon examination the patient is resting up in bed on room air states he is ready for discharge. Objective - Vital Signs Vital signs: Vital Signs Temp 97.2 F L 12/03/16 07:00 Pulse 60 12/03/16 07:00 Resp 20 12/03/16 07:00 BP 134/58 12/03/16 07:00 Pulse Ox 95 12/03/16 07:00 Intake & Output 12/02/16 12/03/16 12/03/16 18:59 06:59 18:59 Weight 85.5 kg Other: Voiding Method Toilet Urinal - Exam GENERAL EXAM: Alert, active, comfortable in no apparent distress. HEAD: Normocephalic. EYES: Normal reaction of pupils, equal size. NOSE: Clear with pink turbinates. THROAT: No erythema or exudates. NECK: No masses, no JVD. CHEST: No chest wall deformity. LUNGS: Equal air entry with no crackles, wheeze, rhonchi or dullness. Diminished in bilateral bases CVS: S1 and S2 normal with no audible mumurs, regular rhythm. ABDOMEN: No hepatosplenomegaly, normal bowel sounds, no guarding or rigidity. EXTREMITIES: Chronic edema noted, pedal pulses palpable. SKIN: No rashes CENTRAL NERVOUS SYSTEM: No focal deficits, tone is normal in all 4 extremities. - Labs CBC & Chem 7: 12/02/16 09:11 12/03/16 09:32 Labs: Abnormal Lab Results - Last 24 Hours (Table) 12/02/16 12/02/16 12/03/16 Range/Units 10:40 11:07 09:32 Carbon Dioxide 36 H (22-30) mmol/L POC Glucose (mg/dL) 136 H (75-99) mg/dL Magnesium 1.1 L 1.4 L (1.6-2.3) mg/dL Assessment and Plan Plan: Assessment Hypotension related to seizures or intravascular volume depletion and dehydration possibly related to a viral gastroenteritis. Small bilateral pleural effusions, chest x-ray and CT results reviewed History of smoking and nicotine use Acute metabolic acidosis secondary to multifactorial process including intravascular volume depletion, dehydration, diarrhea and renal injury Electrolyte imbalance with hypomagnesemia History of coronary artery disease [id number] diabetes mellitus Peripheral neuropathy related to diabetes Chronic pain syndrome related to ankylosing spondylitis The patient can be cleared from a pulmonary standpoint for discharge. Medications have been reviewed and we will continue. Doppler studies of both legs have been negative. CT and chest x-ray results have been reviewed. We will continue to monitor labs and adjust treatment as necessary. We will have the patient follow up in the outpatient setting within 1 week of discharge. I performed an examination of the patient and discussed their management with the nurse practitioner. I have reviewed the nurse practitioner's note and agree with the documented findings and plan of care.
[2016-12-03] MEDS ORDERED: MAGNESIUM SULFATE-D5W PMX 1 GM in DEXTROSE/WATER 1 100ML.BAG IVPB SCH (11:00)
[2016-12-03] MEDS: LEVOFLOXACIN 750 MG TAB PO SCH (11:39)
[2016-12-03 11:54] LABS: Glucose,Whole Blood 99 mg/dL (75-99)
--- NOTE | 2016-12-03 15:52 | P.PN ---
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 Because of this the patient was having some mild the bowel discomforts but it was not severe. He was having difficulty eating and drinking without significant nausea or severe abdominal pain. His abdomen does not feel like it did when he has really recent bout of acute pancreatitis. Because he cannot control the diarrhea he presented to the emergency room. The patient was admitted to hospital and then he developed evidence of some hypotension and received some fluid and was transferred to the intensive care unit because of concerns to sepsis. The patient has had 3 recent hospitalizations due to significant illnesses with the first being a bout of pancreatitis and then fever and most recently had pneumonia. He had recently finished his course of antibiotic therapy for the pneumonia and also complete his course of steroid therapy. He now presents with the above symptoms feeling very poorly. He has generalized weakness. He feels very poorly overall. Relates that his pulmonary system is doing well he is not having significant cough or sputum production As noted he has the history of the extensive MRSA infection that was at his right hand that resulted in a significant bacteremia the required an extensive amount of antibiotic therapy and surgery to the risk for care. He is immunocompromised due to his diabetes mellitus as well as his ankylosing spondylitis and arthritis. Patient is feeling considerably better today. Hypotension is resolved. He is having no ongoing fevers or chills. His abdominal discomforts nausea emesis and diarrhea have all resolved. Objective - Vital Signs Vital signs: Vital Signs Temp 97.2 F L 12/03/16 07:00 Pulse 60 12/03/16 07:00 Resp 20 12/03/16 07:00 BP 134/58 12/03/16 07:00 Pulse Ox 95 12/03/16 07:00 Intake & Output 12/02/16 12/03/16 12/03/16 18:59 06:59 18:59 Weight 85.5 kg Other: Voiding Method Toilet Urinal - Exam 56-year-old male who has complaints complains of generalized fatigue and malaise and body aches HEENT: Anicteric conjunctiva are pink and moist nasal mucosa grossly intact without significant lesions, there is no thrush. Mucosa dry Neck: The neck is supple without significant lymphadenopathy or thyromegaly. Lungs: Good bilateral air entry without significant crackles or wheezes are heard There is no significant bronchial sounds. There is no egophony or dullness. Heart: Irregular with an audible S1 and S2 no S3 soft S4 no murmur click or rub. Abdomen: Positive bowel sounds soft and nontender without palpable masses or organomegaly. There was no guarding or rebound. Extremities: The left upper extremity shows no acute difficulties, IV site is present, the right wrist reveals evidence of the prior surgical intervention. The extensive prior wound has healed. No evidence of any erythema or tenderness at that site. Skin: Area of ulceration to the buttocks as healed only has some residual mild skin discoloration with some erythema to the area where he had dressing in place. There is no epitrochlear or axillary lymphadenopathy. No other lymphadenopathy is noted. Neuro: Awake alert oriented to person place and time. There are no acute new gross focal sensory motor deficits. - Labs CBC & Chem 7: 12/02/16 09:11 12/03/16 09:32 Labs: Abnormal Lab Results - Last 24 Hours (Table) 12/03/16 Range/Units 09:32 Carbon Dioxide 36 H (22-30) mmol/L Magnesium 1.4 L (1.6-2.3) mg/dL Laboratory Results WBC 6.6 k/uL (3.8-10.6) 12/02/16 09:11 RBC 3.96 m/uL (4.30-5.90) L 12/02/16 09:11 Hgb 11.9 gm/dL (13.0-17.5) L 12/02/16 09:11 Hct 37.9 % (39.0-53.0) L 12/02/16 09:11 MCV 95.5 fL (80.0-100.0) D 12/02/16 09:11 MCH 29.9 pg (25.0-35.0) 12/02/16 09:11 MCHC 31.3 g/dL (31.0-37.0) 12/02/16 09:11 RDW 15.3 % (11.5-15.5) 12/02/16 09:11 Plt Count 289 k/uL (150-450) 12/02/16 09:11 Neutrophils % 68 % 12/02/16 09:11 Lymphocytes % 21 % 12/02/16 09:11 Monocytes % 7 % 12/02/16 09:11 Eosinophils % 1 % 12/02/16 09:11 Basophils % 0 % 12/02/16 09:11 Neutrophils # 4.5 k/uL (1.3-7.7) 12/02/16 09:11 Lymphocytes # 1.4 k/uL (1.0-4.8) 12/02/16 09:11 Monocytes # 0.4 k/uL (0-1.0) 12/02/16 09:11 Eosinophils # 0.1 k/uL (0-0.7) 12/02/16 09:11 Basophils # 0.0 k/uL (0-0.2) 12/02/16 09:11 Hypochromasia Moderate 12/02/16 09:11 Macrocytosis Slight 11/29/16 04:35 PT 11.5 sec (9.0-12.0) 11/28/16 08:02 INR 1.1 (<1.1) 11/28/16 08:02 APTT 25.4 sec (22.0-30.0) 11/28/16 08:02 Sodium 145 mmol/L (137-145) 12/03/16 09:32 Potassium 3.7 mmol/L (3.5-5.1) 12/03/16 09:32 Chloride 99 mmol/L (98-107) 12/03/16 09:32 Carbon Dioxide 36 mmol/L (22-30) H 12/03/16 09:32 Anion Gap 10 mmol/L 12/03/16 09:32 BUN 15 mg/dL (9-20) 12/03/16 09:32 Creatinine 0.84 mg/dL (0.66-1.25) 12/03/16 09:32 Est GFR (MDRD) Af Amer >60 (>60 ml/min/1.73 sqM) 12/03/16 09:32 Est GFR (MDRD) Non-Af >60 (>60 ml/min/1.73 sqM) 12/03/16 09:32 Glucose 98 mg/dL (74-99) 12/03/16 09:32 POC Glucose (mg/dL) 99 mg/dL (75-99) 12/03/16 11:[address] [employer] ID Karina Marie 12/03/16 11:[address] Glu mg/dL 137 mg/dL 11/28/16 08:02 Hemoglobin A1c 6.4 % (4.2-6.1) H 11/28/16 08:02 Plasma Lactic Acid Freddy 1.6 mmol/L (0.7-2.0) 11/28/16 11:00 Calcium 8.5 mg/dL (8.4-10.2) 12/03/16 09:32 Phosphorus 3.7 mg/dL (2.5-4.5) 11/29/16 04:35 Magnesium 1.4 mg/dL (1.6-2.3) L 12/03/16 09:32 Total Bilirubin 0.7 mg/dL (0.2-1.3) 12/02/16 09:11 AST 24 U/L (17-59) 12/02/16 09:11 ALT 26 U/L (21-72) 12/02/16 09:11 Alkaline Phosphatase 73 U/L (38-126) 12/02/16 09:11 Total Creatine Kinase 109 U/L (55-170) 11/28/16 08:02 CK-MB (CK-2) 3.9 ng/mL (0.0-2.4) H* 11/28/16 08:02 CK-MB (CK-2) Rel Index 3.6 11/28/16 08:02 Troponin I <0.012 ng/mL (0.000-0.034) 11/28/16 08:02 Total Protein 6.2 g/dL (6.3-8.2) L 12/02/16 09:11 Albumin 3.3 g/dL (3.5-5.0) L 12/02/16 09:11 Cortisol 13 ug/dL 11/28/16 08:02 Urine Color Yellow 11/28/16 10:46 Urine Appearance Clear (Clear) 11/28/16 10:46 Urine pH 5.5 (5.0-8.0) 11/28/16 10:46 Ur Specific [place] 1.019 (1.001-1.035) 11/28/16 10:46 Urine Protein 1+ (Negative) H 11/28/16 10:46 Urine Glucose (UA) Negative (Negative) 11/28/16 10:46 Urine Ketones Negative (Negative) 11/28/16 10:46 Urine Blood Negative (Negative) 11/28/16 10:46 Urine Nitrite Negative (Negative) 11/28/16 10:46 Urine Bilirubin Negative (Negative) 11/28/16 10:46 Urine Urobilinogen <2.0 mg/dL (<2.0) 11/28/16 10:46 Ur Leukocyte Esterase Negative (Negative) 11/28/16 10:46 Urine WBC 4 /hpf (0-5) 11/28/16 10:46 Urine Bacteria Rare /hpf (None) H 11/28/16 10:46 Hyaline Casts 5 /lpf (0-2) H 11/28/16 10:46 C. difficile (EIA) Intrp Negative (Negative) 11/28/16 10:46 Influenza Type A RNA Not Detected (Not Detectd) 11/28/16 08:13 Influenza Type B (PCR) Not Detected (Not Detectd) 11/28/16 08:13 Assessment and Plan (1) Fever Narrative/Plan: Very pleasant 56-year-old male who has multiple medical troubles presents to Hospital for the onset of fever and abdominal symptoms mostly with diarrhea. He 's had some nausea without emesis and has noted no hematemesis melena or hematochezia. He'll feel very poorly and was brought in and then became somewhat hypotensive and required fluids and transferred to intensive care unit. At admission his lactic acid was elevated on follow-up after fluids was improved. At this time a random stat cortisol level was requested. will trial some hydrocortisone with concerns for adrenal insufficiency given the fact that he has been on steroid therapy as of late. If he is with adrenal insufficiency will treatment and steroids until we can be of successfully tapered over time. Stool for C. diff was sent to the laboratory and is negative. Influenza A and B were negative. Urinalysis is negative. Patient however did have significant leukocytosis. Concerns to a gastroenteritis that could be viral in nature versus bacterial and consequently stool studies are requested. Was started on antibiotic therapy with Levaquin with his recent history of pneumonia and will be monitored. Lastly patient did have difficulties with what appeared to be some lactic acidosis in the recent past. Thought to be due to his allopurinol therapy. This is discontinued and he received some steroid therapy. Was doing relatively well until this acute onset of symptoms . noted concerns to adrenal insufficiency but also have concerns to the possibility of lactic acidosis from a different medication, he is on metformin and this is discontinued especially since he does have acute renal failure also at this point in time also. Is receiving fluids in the ICU and is being monitored with marked improvement in this day. His gastrointestinal symptoms improved. His renal failure has improved. With the use of steroids in the glucose is elevated being monitored and treated.. Nephrology is following. Steroids are being rapidly tapered which is appropriate given it appears that the metformin has induced the acidosis and gastrointestinal symptoms. His acute renal failure fortunately has resolved. As noted is now much improved. Likely discharge home soon and her rapidly tapering dose of steroids. Should not resume metformin the outpatient setting. Status: Acute (2) Diarrhea Status: Acute
--- NOTE | 2016-12-03 16:34 | P.DS ---
Providers Date of admission: 11/28/16 12:33 Expected date of discharge: 12/03/16 Attending physician: Bautista Romero Consults: 11/28/16 17:31 Consult Physician Urgent Consulting Provider: Ag Morton Consult Reason/Comments: ICU management Do you want consulting provider notified?: Yes Primary care physician: Bautista Romero Hospital Course: Patient is a 56-year-old male admitted to the hospital with profuse diarrhea, fever and discomfort in his abdomen. Patient had severe hypotension and was transferred to the intensive care unit where he received 3.5 L of fluid and was started on Levophed. Patient did have an elevated lactic acid. Patient was started on IV antibiotics and IV steroids. Blood cultures and urine cultures were negative. Patient's hypertension resolved and he was transferred to a regular medical floor. Patient's computed tomography scan of his lungs with evidence of at the lactose his fall more to be pneumonia with small left pleural effusion. Patient was also noted to have a 1 cm nodule on his adrenal gland which will be followed in the outpatient setting, suspected it has been there before. Dr. Hardin from infectious disease service as well as Dr. Morton from pulmonary service followed patient during his hospital stay. Patient was on metformin prior to admission, but Dr. Hardin felt it might have accentuated his diarrhea. Patient does have a history of a pancreatic mass which will be followed in the outpatient setting. Patient is also set up for surgery with Dr. Chang for intractable back pain. Patient improved during his hospital stay and was deemed stable for discharge with close follow-up in the outpatient setting. Please refer to discharge plan for further orders. Discharge diagnoses: 1. Probable pneumonia with atelectasis. 2. Resolving severe hypertension from diarrhea with negative urine and blood cultures. 3. Previous history of sepsis with no positive culture. 4. Pancreatic mass that needs to be investigated. 5. Severe degenerative disc disease. 6. Adrenal adenoma. 7. Type 2 diabetes mellitus with insulin support. 8. Generalized osteoarthritis with history of ankylosing spondylitis and ankylosing calcinosis. 9. History of coronary artery disease with previous myocardial infarction with ejection fraction greater than 35%. 10. Peripheral neuropathy felt to be combination of degenerative disc disease and diabetes. The above impression and plan have been discussed and directed by Dr. Romero. Jewell ANTHONY acting as scribe for Dr. Romero. Pertinent Studies: EKG; chest x-ray; chest CT; venous Doppler study Patient Condition at Discharge: Good Plan - Discharge Summary New Discharge Prescriptions: Hydrocortisone [Cortef] 20 mg PO DAILY #30 tab Insulin Aspart [NovoLOG Flexpen] See Protocol SQ ACHS #3 pen Insulin Glargine,Hum.rec.anlog [Lantus Solostar] 25 unit SQ HS #3 pen Levofloxacin [Levaquin] 750 mg PO DAILY@1300 #4 tab Magnesium Oxide [Mag-Ox] 400 mg PO BID #60 tablet Pen Needle, Diabetic [Pen Needle] 1 each ACHS #150 dis.needle guaiFENesin [Mucinex] 600 mg PO Q6HR PRN #30 tablet.er PRN Reason: Congestion Discharge Medication List Aspirin 325 mg PO HS 02/01/14 [History] Levothyroxine Sodium [Synthroid] 50 mcg PO HS 02/01/14 [History] Nitroglycerin Sl Tabs [Nitrostat] 0.4 mg SUBLINGUAL Q5M PRN 02/01/14 [History] Omeprazole [PriLOSEC] 20 mg PO BID 02/01/14 [History] Furosemide [Lasix] 20 mg PO DAILY PRN 05/13/15 [History] Gabapentin [Neurontin] 800 mg PO QID 05/13/15 [History] amLODIPine [Norvasc] 5 mg PO HS 05/13/15 [History] HYDROcodone/APAP 10-325MG [[place] 10-325] 1 tab PO Q4HR PRN 07/17/16 [History] Simvastatin [Zocor] 80 mg PO HS 07/17/16 [History] fentaNYL 25MCG/HR PATCH [Duragesic 25MCG/HR] 1 patch TRANSDERM Q72H 07/17/16 [ History] Montelukast [Singulair] 10 mg PO HS #30 tab 11/21/16 [Rx] Albuterol Inhaler [Ventolin Hfa Inhaler] 2 puff INHALATION Q6HR PRN 11/28/16 [ History] Hydrocortisone [Cortef] 20 mg PO DAILY #30 tab 12/03/16 [Rx] Insulin Aspart [NovoLOG Flexpen] See Protocol SQ ACHS #3 pen 12/03/16 [Rx] Insulin Glargine,Hum.rec.anlog [Lantus Solostar] 25 unit SQ HS #3 pen 12/03/16 [ Rx] Levofloxacin [Levaquin] 750 mg PO DAILY@1300 #4 tab 12/03/16 [Rx] Magnesium Oxide [Mag-Ox] 400 mg PO BID #60 tablet 12/03/16 [Rx] Pen Needle, Diabetic [Pen Needle] 1 each [facility] #150 dis.needle 12/03/16 [Rx] guaiFENesin [Mucinex] 600 mg PO Q6HR PRN #30 tablet.er 12/03/16 [Rx] Follow up Appointment(s)/Referral(s): Bran Hardin MD [STAFF PHYSICIAN] - 12/19/16 10:00 am Bautista Romero MD [Primary Care Provider] - 12/04/16 12:30 pm Ag Morton MD [STAFF PHYSICIAN] - 12/10/16 1:45 pm (In [place] at Dr Núñez's office) Patient Instructions/Handouts: Heart Failure (DC), Type 2 Diabetes in Adults ( DC), Acute Diarrhea (GEN), Bacterial Pneumonia (DC) Activity/Diet/Wound Care/Special Instructions: Diet: Consistent carbohydrate diet Nursing staff: Please print out steroid sliding scale for patient prior to discharge. Also, patient will need teaching on insulin pen prior to discharge. Discharge Disposition: HOME SELF-CARE
--- NOTE | 2016-12-06 15:16 | CDI ---
In responding to this query, please exercise your independent professional judgment. The [facility] Coding Staff and Clinical Documentation Specialists appreciate your assistance in clarifying documentation, maintaining compliance with coding guidelines, accurately documenting patients condition and capturing severity of illness. The fact that a question is asked does not imply that any particular answer is desired or expected. Communication forms are a method of clarifying documentation and are not made part of the Legal Health Record. Thank you in advance for your clarification. Last Revision, July 2015 Tarun Love [address] [facility] [place] [address] Documentation Clarification Form Date: 12/06/2016 2:41:00 PM From: Florecita Kurtz Admit Date: 11/28/2016 12:33:00 PM Patient Name: Benja Ribera Visit Number: [id number] Discharge Date: Dr. Bautista Romero/Jewell Lagunas [employer] H&P has the possibility of sepsis and is not in the discharge summary. History/Risk Factors: Pneumonia, heart failure, Diabetes type II, Clinical Indicators: Admitted to hospital with profuse diarrhea, fever and discomfort in his abdomen. He has generalized weakness WBC/Left Shift: 18.0 Lactic acid: 1.6, Blood cultures: No Growth Vitals signs on admission: 129/65 103.9 109 18, 78/44 86 14 100.5 97 % 2/L NC Other Clinical Indicators: He is immunocompromised due to this diabetes mellitus and his ankylosing spondylitis and arthritis (per ID consult on 11/28/16 ) H&P Possible gastroenteritis, possibility of sepsis and previous pneumonia Treatment: IV fluid bolus Levophed drip Levaquin IV Monitor Labs ICU monitor/protocol ID Consult: Admitted to hospital and then developed evidence of hypotension transferred to ICU because concerns to sepsis. Assessment: Fever: concerns to adrenal insufficiency but concerns to the possibility of lactic acidosis . Acute renal failure In your professional opinion, can you please clarify if these findings signify one of the following conditions, whether the condition is POA, and cause, if known? Sepsis Ruled in or Sepsis Ruled out SIRS, without underlying infectious process Sepsis Severe Sepsis Septic Shock Unable to determine Other, please specify * Identify the (suspected) organism * Link or clarify if there is associated (due to/with): - Organ failure - Shock (specify type, e.g.Hypotensive, other SIRS Criteria: 2 or more of the following may indicate SIRS Temperature < 96.8F(36C) or > 101.0F (38C) Heart Rate > 90 bpm Respiratory Rate > 20 breaths/min or PaCO2 < 32 mmHg White Blood Cell Count > 12,000 or < 4,000 cells/mm3 or > 10% bands Please document as an addendum to your discharge summary in order to capture severity of illness and risk of mortality. Include clinical findings that support your diagnosis. FYI: Press F11 to launch patient chart. Place X here if this finding has no clinical significance, is not applicable or if you are not able to provide any additional documentation. CHRISTY
== END 2016-12-03 13:49 | disposition home or self-care (01) | DRG 871 ==
LOC: EC 07:39 → 4MS4W 12:33 → 6ICU 17:01 → 4MS4W 11-30 09:27
PROVIDERS: ADMIT Family Medicine; ATTEND Family Medicine
DX: A41.9 Sepsis, unspecified organism (principal); J18.9 Pneumonia, unspecified organism; N17.9 Acute kidney failure, unspecified; E87.4 Mixed disorder of acid-base balance; J90 Pleural effusion, not elsewhere classified; E11.22 Type 2 diabetes mellitus with diabetic chronic kidney disease; D89.9 Disorder involving the immune mechanism, unspecified; J98.11 Atelectasis; E11.42 Type 2 diabetes mellitus with diabetic polyneuropathy; I25.10 Atherosclerotic heart disease of native coronary artery without angina pectoris; G89.4 Chronic pain syndrome; M50.30 Other cervical disc degeneration, unspecified cervical region; E83.42 Hypomagnesemia; I12.9 Hypertensive chronic kidney disease with stage 1 through stage 4 chronic kidney disease, or unspecified chronic kidney disease; T38.0X5A Adverse effect of glucocorticoids and synthetic analogues, initial encounter; T38.3X5A Adverse effect of insulin and oral hypoglycemic [antidiabetic] drugs, initial encounter; D35.02 Benign neoplasm of left adrenal gland; D49.0 Neoplasm of unspecified behavior of digestive system; N18.2 Chronic kidney disease, stage 2 (mild); R80.9 Proteinuria, unspecified; K52.9 Noninfective gastroenteritis and colitis, unspecified; E86.0 Dehydration; R11.2 Nausea with vomiting, unspecified; I25.2 Old myocardial infarction; E78.5 Hyperlipidemia, unspecified; M45.9 Ankylosing spondylitis of unspecified sites in spine; R53.1 Weakness; E83.59 Other disorders of calcium metabolism; I95.9 Hypotension, unspecified; M47.812 Spondylosis without myelopathy or radiculopathy, cervical region; M47.815 Spondylosis without myelopathy or radiculopathy, thoracolumbar region; F41.9 Anxiety disorder, unspecified; F32.9 Major depressive disorder, single episode, unspecified; R50.9 Fever, unspecified; M51.36 Other intervertebral disc degeneration, lumbar region; R60.0 Localized edema; Z79.82 Long term (current) use of aspirin; Z79.4 Long term (current) use of insulin; Z83.3 Family history of diabetes mellitus; Z82.49 Family history of ischemic heart disease and other diseases of the circulatory system; Z80.1 Family history of malignant neoplasm of trachea, bronchus and lung; Z79.899 Other long term (current) drug therapy; Z96.641 Presence of right artificial hip joint; Z87.01 Personal history of pneumonia (recurrent); Z95.1 Presence of aortocoronary bypass graft; Z95.5 Presence of coronary angioplasty implant and graft; Z90.49 Acquired absence of other specified parts of digestive tract; Z80.3 Family history of malignant neoplasm of breast; Z85.828 Personal history of other malignant neoplasm of skin; Z86.14 Personal history of Methicillin resistant Staphylococcus aureus infection; Z16.24 Resistance to multiple antibiotics; Z87.891 Personal history of nicotine dependence; Z87.19 Personal history of other diseases of the digestive system; Z87.828 Personal history of other (healed) physical injury and trauma; Z87.81 Personal history of (healed) traumatic fracture; Z86.19 Personal history of other infectious and parasitic diseases; Z71.3 Dietary counseling and surveillance; Z79.84 Long term (current) use of oral hypoglycemic drugs; Z79.891 Long term (current) use of opiate analgesic; Z83.6 Family history of other diseases of the respiratory system; Z98.1 Arthrodesis status; Z83.79 Family history of other diseases of the digestive system
CPT/HCPCS: 36415; 71010; 71020; 71250; 80048; 80053; 81001; 82533; 82550; 82553; 83036; 83605; 83735; 84100; 84132; 84484; 85025; 85027; 85610; 85730; 87040; 87086; 87324; 87502; 93005; 93970; 94640; 96361; 96365; 96375; 99291

== ENCOUNTER 2016-12-07 09:23 | Inpatient (IN) | payer MEDICARE ==
[2016-12-07] MEDS ORDERED: SODIUM CHLORIDE 0.9% 500 ML IV STA (09:37)
[2016-12-07] MEDS ORDERED: IPRATROPIUM-ALBUTEROL 3 ML NEB INHALATION STA (09:37)
[2016-12-07] MEDS ORDERED: SODIUM CHLORIDE 0.9% 1,000 ML IV STA ×2 (09:37)
[2016-12-07] MEDS ORDERED: ACETAMINOPHEN IV (For NPO) 1,000 MG in EMPTY BAG 1 BAG IVPB STA (09:38)
[2016-12-07] MEDS ORDERED: KETOROLAC 30 MG/ML 1 ML VIAL IVP STA (09:38)
[2016-12-07 09:56] LABS: Basophils % (A) 1 %; CHCM 31.2; Eosinophils # (A) 0.1 k/uL (0-0.7); Eosinophils % (A) 1 %; HCT 40.3 % (39.0-53.0); HGB 12.4 gm/dL (13.0-17.5); Hypochromasia Slight; Luc # (Auto) 0.18; Luc % (Auto) 3; Lymphocytes # (A) 0.5 k/uL (1.0-4.8); Lymphocytes % (A) 9 %; MCH 28.6 pg (25.0-35.0); MCHC 30.7 g/dL (31.0-37.0); MCV 93.3 fL (80.0-100.0); Mean Platelet Volume 7.3; Monocytes # (A) 0.4 k/uL (0-1.0); Monocytes % (A) 7 %; Neutrophils # (A) 4.2 k/uL (1.3-7.7); Neutrophils % (A) 79 %; RBC 4.32 m/uL (4.30-5.90); RDW 15.2 % (11.5-15.5); WBC 5.3 k/uL (3.8-10.6); WBC (Perox) 5.41
[2016-12-07 10:04] LABS: Appearance,Urine Clear (Clear); Bilirubin,Urine Negative (Negative); Glucose,Urine (UA) 3+ (Negative); Ketones,Urine Negative (Negative); Leukocyte Esterase,Urine Negative (Negative); Nitrite,Urine Negative (Negative); Protein,Urine Trace (Negative); Specific Gravity,Urine 1.011 (1.001-1.035); UA Billing (MACRO vs. MICRO) CHEM; Urobilinogen,Urine <2.0 mg/dL (<2.0)
[2016-12-07 10:08] LABS: INR 1.1 (<1.1); Partial Thromboplastin Time 24.2 sec (22.0-30.0)
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
--- NOTE | 2016-12-07 10:17 | XR ---
EXAMINATION TYPE: XR chest 2V DATE OF EXAM: 12/07/2016 10:12 AM HISTORY: Weakness. REFERENCE: Previous study dated 11/29/2016. FINDINGS: There has been a midline sternotomy. Lung volumes are prominent. The heart is enlarged. The lungs are clear. Pleural spaces are clear. IMPRESSION: 1. COPD. 2. CARDIOMEGALY.
[2016-12-07 10:20] LABS: ALT 44 U/L (21-72); AST 50 U/L (17-59); Alkaline Phosphatase 104 U/L (38-126); Anion Gap 12 mmol/L; Blood Urea Nitrogen 16 mg/dL (9-20); Calcium 8.6 mg/dL (8.4-10.2); Carbon Dioxide 33 mmol/L (22-30); Chloride 98 mmol/L (98-107); Glucose 168 mg/dL (74-99); Non-African American GFR(MDRD) >60 (>60 ml/min/1.73 sqM); Phosphorous 3.4 mg/dL (2.5-4.5); Potassium 3.4 mmol/L (3.5-5.1); Sodium 143 mmol/L (137-145); Total Bilirubin 0.9 mg/dL (0.2-1.3); Total Protein 6.8 g/dL (6.3-8.2)
[2016-12-07] MEDS ORDERED: MAGNESIUM OXIDE 400 MG TAB PO STA (10:33)
[2016-12-07] MEDS ORDERED: IPRATROPIUM-ALBUTEROL 3 ML NEB INHALATION PRN (10:34)
[2016-12-07] MEDS ORDERED: PNEUMONIA PROTOCOL UTILIZED 1 EACH MISC PO PRN (10:34)
[2016-12-07] MEDS ORDERED: POTASSIUM BICARB-CITRIC ACID 25 MEQ TABLET.EFF PO STA (10:34)
[2016-12-07] MEDS ORDERED: MORPHINE SULFATE 4 MG/ML SYRINGE IVP STA (10:36)
[2016-12-07] MEDS ORDERED: MORPHINE SULFATE 4 MG/ML SYRINGE IVP PRN (10:36)
[2016-12-07] MEDS ORDERED: hydrALAZINE HCL 20 MG/ML 1 ML VIAL IVP PRN (10:36)
[2016-12-07] MEDS ORDERED: hydrALAZINE HCL 20 MG/ML 1 ML VIAL IVP STA (10:36)
[2016-12-07 10:44] LABS: Creatine Kinase MB 0.7 ng/mL (0.0-2.4)
[2016-12-07 10:53] LABS: Troponin I 0.038 ng/mL (0.000-0.034)
[2016-12-07] MEDS ORDERED: AMPICILLIN-SULBACTAM 3 GM in SODIUM CHLORIDE 0.9% 100 ML IVPB STA (11:07)
[2016-12-07] MEDS ORDERED: HEPARIN SODIUM,PORCINE 10,000 UNIT/ML 1 ML VIAL IV ONE (13:12)
[2016-12-07] MEDS ORDERED: IV VANCOMYCIN PER PHARMACY 1 EACH MISC MISCELLANE PRN (13:14)
[2016-12-07 13:29] LABS: Glucose,Whole Blood 125 mg/dL (75-99)
[2016-12-07] MEDS ORDERED: VANCOMYCIN 1,500 MG in SODIUM CHLORIDE 0.9% 250 ML IVPB ONE (13:30)
[2016-12-07] MEDS: INSULIN LISPRO (humaLOG) 300 UNIT/3 ML VIAL SQ SCH ×3 (13:49→20:48)
[2016-12-07] MEDS: MAGNESIUM SULFATE-D5W PMX 1 GM in DEXTROSE/WATER 1 100ML.BAG IVPB SCH ×3 (13:57→23:20)
[2016-12-07] MEDS: HEPARIN SODIUM,PORCINE/D5W PMX 25,000 UNIT in DEXTROSE/WATER 1 500ML.BAG IV SCH (14:12)
[2016-12-07] MEDS: SODIUM CHLORIDE 0.9% 1,000 ML IV SCH (14:17)
[2016-12-07 15:11] LABS: Hemoglobin A1C 6.6 % (4.2-6.1)
[2016-12-07] MEDS ORDERED: RX INFO: IV CONTRAST WAS GIVEN 1 EACH MISC MISCELLANE PRN (15:22)
[2016-12-07] MEDS ORDERED: NITROGLYCERIN SL TABS 0.4 MG TAB SUBLINGUAL PRN (15:28)
[2016-12-07] MEDS: POTASSIUM CHLORIDE 10 MEQ, LIDOCAINE 2% INJ 10 MG in SODIUM CHLORIDE 0.9% 100 ML IVPB SCH ×2 (15:45→21:15)
[2016-12-07] MEDS: IOHEXOL 350 MG/ML 25 ML BOTTLE (ORAL USE) PO PRN ×2 (16:51→18:18)
[2016-12-07 16:55] LABS: Glucose,Whole Blood 124 mg/dL (75-99)
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
[2016-12-07] MEDS ORDERED: ACETAMINOPHEN TAB 500 MG TAB PO PRN (19:15)
--- NOTE | 2016-12-07 20:27 | CT ---
EXAMINATION TYPE: CT abdomen pelvis w con DATE OF EXAM: 12/07/2016 8:17 PM COMPARISON: 07/17/2016 HISTORY: Sepsis, unknown source, recent diarrhea. CT DLP: 811.30 mGycm Automated exposure control for dose reduction was used. TECHNIQUE: Helical acquisition of images was performed from the lung bases through the pelvis. CONTRAST: Performed with Oral Contrast and with IV Contrast, patient injected with 100 mL of Omnipaque 300. FINDINGS: There is some patchy atelectasis at the lung bases. There is also mild infiltrate at the posterior gina ng bases. There is no pleural effusion. Liver spleen pancreas appear normal. There are clips from cholecystectomy. Bile ducts are not dilated . There is no adrenal mass. Kidneys show satisfactory contrast opacification. There is no hydronephro sis. There is no retroperitoneal adenopathy. Right kidney is slightly smaller than the left. I see no intestinal wall thickening. There are no dilated loops. Bladder distends smoothly. There is a right hip prosthesis. There is no ascites. Abdominal aorta is atheromatous. There is no sign of fabián endicitis. I see no bony destructive process. IMPRESSION: ATHEROSCLEROTIC VASCULAR DISEASE. MILD RIGHT RENAL ATROPHY COMPARED TO THE LEFT. THERE IS SOME INFILT RATE AND ATELECTASIS AT THE POSTERIOR LUNG BASES THAT APPEARS WORSE THAN LAST EXAM. THERE IS A MILD P NEUMONIA AT THE RIGHT POSTERIOR LUNG BASE THAT IS NEW COMPARED TO LAST EXAM.
[2016-12-07 20:36] LABS: Glucose,Whole Blood 155 mg/dL (75-99)
[2016-12-07] MEDS: GABAPENTIN 400 MG CAP PO SCH ×2 (20:36→20:47)
[2016-12-07] MEDS: MAGNESIUM OXIDE 400 MG TAB PO SCH ×2 (20:36→20:47)
[2016-12-07] MEDS: MONTELUKAST 10 MG TAB PO SCH (20:47)
[2016-12-07] MEDS ORDERED: ATORVASTATIN 80 MG TAB PO SCH (21:00)
[2016-12-07 22:43] LABS: Potassium 3.6 mmol/L (3.5-5.1)
[2016-12-07] MEDS: ACETAMINOPHEN IV (For NPO) 1,000 MG in EMPTY BAG 1 BAG IVPB PRN (22:53)
[2016-12-08] MEDS: VANCOMYCIN 1,500 MG in SODIUM CHLORIDE 0.9% 250 ML IVPB SCH ×2 (00:23→12:26)
[2016-12-08] MEDS: SODIUM CHLORIDE 0.9% 1,000 ML IV SCH ×4 (00:27→14:51)
[2016-12-08] MEDS: POTASSIUM CHLORIDE 10 MEQ, LIDOCAINE 2% INJ 10 MG in SODIUM CHLORIDE 0.9% 100 ML IVPB SCH ×2 (02:47→05:02)
[2016-12-08] MEDS: MAGNESIUM SULFATE-D5W PMX 1 GM in DEXTROSE/WATER 1 100ML.BAG IVPB SCH (03:56)
[2016-12-08 06:03] LABS: Aty Lym Flag Moderate; CH 28.8; CHCM 30.7; HCT 37.5 % (39.0-53.0); HGB 11.5 gm/dL (13.0-17.5); Hypochromasia Moderate; MCH 28.8 pg (25.0-35.0); MCHC 30.7 g/dL (31.0-37.0); MCV 93.9 fL (80.0-100.0); Mean Platelet Volume 7.3; RBC 3.99 m/uL (4.30-5.90); RDW 15.3 % (11.5-15.5); WBC 2.8 k/uL (3.8-10.6); WBC (Perox) 3.01
[2016-12-08] MEDS: LEVOTHYROXINE 50 MCG TAB PO SCH (06:16)
[2016-12-08 06:25] LABS: Add Differential Manual Differential
[2016-12-08 06:29] LABS: Nucleated Red Blood Cells 0 /100 WBC (0-0); Total Cells Counted 100
[2016-12-08 06:30] LABS: Manual Review Performed
[2016-12-08 07:04] LABS: Anion Gap 8 mmol/L; Blood Urea Nitrogen 14 mg/dL (9-20); Calcium 7.5 mg/dL (8.4-10.2); Carbon Dioxide 32 mmol/L (22-30); Chloride 98 mmol/L (98-107); Glucose 159 mg/dL (74-99); Magnesium 2.2 mg/dL (1.6-2.3); Non-African American GFR(MDRD) >60 (>60 ml/min/1.73 sqM); Phosphorous 5.4 mg/dL (2.5-4.5); Potassium 4.3 mmol/L (3.5-5.1); Sodium 138 mmol/L (137-145)
[2016-12-08] MEDS: PANTOPRAZOLE 40 MG TABLET PO SCH (07:30)
[2016-12-08] MEDS: GABAPENTIN 400 MG CAP PO SCH ×3 (07:31→21:11)
[2016-12-08] MEDS: ASPIRIN 325 MG TAB PO SCH (07:31)
[2016-12-08] MEDS: MAGNESIUM OXIDE 400 MG TAB PO SCH ×3 (07:31→21:11)
--- NOTE | 2016-12-08 07:52 | XR ---
EXAMINATION TYPE: XR chest 1V portable DATE OF EXAM: 12/08/2016 7:13 AM HISTORY: fever, sepsis, SOB. REFERENCE: Previous study dated 12/07/2016. FINDINGS: There has been a midline sternotomy. There has been a previous ACDF of the lower cervical s pine. The lungs are overinflated. The heart is enlarged. The lungs are clear. IMPRESSION: 1. COPD. 2. CARDIOMEGALY.
[2016-12-08 07:55] LABS: Glucose,Whole Blood 162 mg/dL (75-99)
[2016-12-08] MEDS: INSULIN LISPRO (humaLOG) 300 UNIT/3 ML VIAL SQ SCH ×4 (08:06→21:11)
[2016-12-08] MEDS: HEPARIN SODIUM,PORCINE/D5W PMX 25,000 UNIT in DEXTROSE/WATER 1 500ML.BAG IV SCH (08:46)
[2016-12-08] MEDS ORDERED: ENOXAPARIN 40 MG/0.4 ML SYRINGE SQ SCH (09:00)
[2016-12-08] MEDS ORDERED: amLODIPine 5 MG TAB PO SCH (09:00)
[2016-12-08] MEDS: ACETAMINOPHEN IV (For NPO) 1,000 MG in EMPTY BAG 1 BAG IVPB PRN (09:51)
[2016-12-08 11:22] LABS: Glucose,Whole Blood 130 mg/dL (75-99)
--- NOTE | 2016-12-08 11:53 | P.PN ---
Subjective Principal diagnosis: Influenza pneumonia Patient seen and examined. Patient continues to have high fevers up to 102.9. The patient states he just does not feel well he is complaining of fever and chills. The patient has been receiving Tylenol for his fevers. The patient has been unable to expectorate sputum for sputum culture. The nurse was called while I was seeing the patient notifying that the patient was influenza B+. Objective - Vital Signs Vital signs: Vital Signs Temp 102.3 F H 12/08/16 09:59 Pulse 93 12/08/16 08:00 Resp 18 12/08/16 08:00 BP 176/86 12/08/16 07:00 Pulse Ox 96 12/08/16 10:01 Intake & Output 12/07/16 12/08/16 12/08/16 18:59 06:59 18:59 Intake Total 1500 663.032 51 Output Total 540 400 Balance 1500 123.032 -349 Intake: Amount of Fluid Infused ( 1500 ml) Intake, IV Titration 588.032 51 Amount Heparin Sodium,Porcine/ 388.032 51 D5w Pmx 25,000 unit In Dextrose/Water 1 500ml. bag @ 18 UNITS/KG/HR 28. 24 mls/hr IV .[id number] [facility] Rx#:[id number] Magnesium Sulfate-D5w Pmx 100 1 gm In Dextrose/Water 1 100ml.bag @ 100 mls/hr IVPB Q1H [facility] Rx#: [id number] Potassium Chloride 10 meq 100 Lidocaine 2% Inj 10 mg In Sodium Chloride 0.9% 100 ml @ 100 mls/hr IVPB Q1HR [facility] Rx#:[id number] Oral 75 Output: Urine 540 400 Other: Voiding Method Urinal Urinal # Voids 3 - Exam Gen.: Patient is alert and oriented 3, no acute distress Cardiovascular: Regular rate and rhythm, S1/S2 Lungs: Diminished breath sounds with bibasilar crackles Abdomen: Soft nontender nondistended positive bowel sounds Extremities: 2+ pitting edema - Labs CBC & Chem 7: 12/08/16 05:33 12/08/16 05:33 Labs: Abnormal Lab Results - Last 24 Hours (Table) 12/07/16 12/07/16 12/07/16 Range/Units 13:27 16:54 20:34 WBC (3.8-10.6) k/uL RBC (4.30-5.90) m/uL Hgb (13.0-17.5) gm/dL Hct (39.0-53.0) % MCHC (31.0-37.0) g/dL Plt Count (150-450) k/uL Lymphocytes # (Manual) (1.0-4.8) k/uL APTT (22.0-30.0) sec Sodium (137-145) mmol/L Chloride (98-107) mmol/L Carbon Dioxide (22-30) mmol/L Glucose (74-99) mg/dL POC Glucose (mg/dL) 125 H 124 H 155 H (75-99) mg/dL Calcium (8.4-10.2) mg/dL Phosphorus (2.5-4.5) mg/dL Influenza Type B (PCR) (Not Detectd) 12/07/16 12/07/16 12/08/16 Range/Units 21:25 21:25 05:33 WBC 2.8 L (3.8-10.6) k/uL RBC 3.99 L (4.30-5.90) m/uL Hgb 11.5 L (13.0-17.5) gm/dL Hct 37.5 L (39.0-53.0) % MCHC 30.7 L (31.0-37.0) g/dL Plt Count 143 L (150-450) k/uL Lymphocytes # (Manual) 0.7 L (1.0-4.8) k/uL APTT 101.6 H* (22.0-30.0) sec Sodium 136 L (137-145) mmol/L Chloride 94 L (98-107) mmol/L Carbon Dioxide 34 H (22-30) mmol/L Glucose (74-99) mg/dL POC Glucose (mg/dL) (75-99) mg/dL Calcium (8.4-10.2) mg/dL Phosphorus (2.5-4.5) mg/dL Influenza Type B (PCR) (Not Detectd) 12/08/16 12/08/16 12/08/16 Range/Units 05:33 05:33 07:53 WBC (3.8-10.6) k/uL RBC (4.30-5.90) m/uL Hgb (13.0-17.5) gm/dL Hct (39.0-53.0) % MCHC (31.0-37.0) g/dL Plt Count (150-450) k/uL Lymphocytes # (Manual) (1.0-4.8) k/uL APTT 82.4 H (22.0-30.0) sec Sodium (137-145) mmol/L Chloride (98-107) mmol/L Carbon Dioxide 32 H (22-30) mmol/L Glucose 159 H (74-99) mg/dL POC Glucose (mg/dL) 162 H (75-99) mg/dL Calcium 7.5 L (8.4-10.2) mg/dL Phosphorus 5.4 H (2.5-4.5) mg/dL Influenza Type B (PCR) (Not Detectd) 12/08/16 12/08/16 Range/Units 10:47 11:21 WBC (3.8-10.6) k/uL RBC (4.30-5.90) m/uL Hgb (13.0-17.5) gm/dL Hct (39.0-53.0) % MCHC (31.0-37.0) g/dL Plt Count (150-450) k/uL Lymphocytes # (Manual) (1.0-4.8) k/uL APTT (22.0-30.0) sec Sodium (137-145) mmol/L Chloride (98-107) mmol/L Carbon Dioxide (22-30) mmol/L Glucose (74-99) mg/dL POC Glucose (mg/dL) 130 H (75-99) mg/dL Calcium (8.4-10.2) mg/dL Phosphorus (2.5-4.5) mg/dL Influenza Type B (PCR) Detected H (Not Detectd) Assessment and Plan Plan: Influenza B pneumonia Sepsis Pyrexia By basilar atelectasis Pancytopenia, likely due to sepsis New onset atrial fibrillation, rate controlled Dehydration Decubitus ulcers 2 Possible obstructive sleep apnea Hypertensive urgency Recent hospitalization for pneumonia Diabetes mellitus type 2 History of IA Peripheral neuropathy Degenerative disc disease History of CVA Hypothyroidism O2 to maintain saturation greater than equal to 88% Will add Tamiflu now Add Motrin 800 mg every 6-8 hours as needed Consult infectious diseases Continue antibiotics: Unasyn and vancomycin Bronchodilators Heparin drip for Afib Continue home medications Pain control GI and DVT prophylaxis Incentive spirometry and pulmonary hygiene Monitor labs closely Continue IV fluid hydration Cardiology consult
[2016-12-08] MEDS ORDERED: amLODIPine 5 MG TAB PO ONE (12:15)
[2016-12-08] MEDS: IBUPROFEN 800 MG TAB PO PRN ×2 (12:25→20:57)
[2016-12-08] MEDS: OSELTAMIVIR 75 MG CAP PO SCH ×2 (12:26→21:10)
[2016-12-08 13:26] LABS: INR 1.2 (<1.1); Prothrombin Time 11.8 sec (9.0-12.0)
--- NOTE | 2016-12-08 15:15 | CONS ---
Mr. Ribera is a 56-year-old gentleman who is seen for the cardiac evaluation. The patient's emergency medical record reviewed. This patient was just recently discharged from the hospital about 4 days ago after being treated for pneumonia and severe diarrhea. Patient subsequently came back with a high-grade fever with chills. Patient had a temperature of 104. We were requested to see the patient because of possibility of atrial fibrillation. This patient has a history of diabetes, multiple myocardial infarctions in the past and multiple episodes of pneumonia in the past. He has coronary artery bypass surgery. Patient denies any chest pain or any significant shortness of breath at present. Past medical history includes bowel resection, cholecystectomy, coronary artery bypass surgery, hernia repair, right hip replacement. Patient's home medications included: 1. Ventolin inhaler. 2. Mucinex. 3. Zocor 80 mg daily. 4. Synthroid. 5. Insulin. 6. Cortef 20 mg daily. 7. Neurontin. 8. Lasix and 9. Aspirin. Physical examination at present reveals a 56-year-old, obesely-built gentleman who does not appear to be in any acute distress. The patient still has a temperature of 102.3. Blood pressure is 176/86 mmHg. Head/ENT is negative. Neck is supple. There is no increase in jugular venous pressure. Both the carotid pulses are felt. There is no bruit. Chest is symmetrical. HEART: The PMI is not felt. First and second heart sounds are normal. There is no evidence of any murmur. Lungs reveal a few scattered wheezes. Abdomen is soft. EXTREMITIES: Peripheral pulsations are 2+. Patient is currently getting a heparin drip. The patient is positive for influenza type B. There is a questionable infiltrate on the CT scan. EKG as well as the monitor strip reviewed, which shows a normal sinus rhythm with multiple PACs. FINAL IMPRESSION: 1. This patient is admitted with a high grade fever secondary to influenza and possible pneumonia. 2. Patient has a history of stable coronary artery disease, diabetes and hypertension. 3. There is no definite evidence of atrial fibrillation. The patient has multiple premature atrial contractions. RECOMMENDATIONS: We will resume the patient's Cozaar as well as Lipitor and we will start the patient on Coreg 6.25 mg b.i.d. Echo and Doppler study will be done.
--- NOTE | 2016-12-08 15:57 | CONS ---
DATE OF CONSULTATION: 12/08/2016 REASON FOR CONSULTATION: 1. Acute influenza B. 2. Pneumonia. HISTORY OF PRESENT ILLNESS: The patient is a 56-year-old male with recent multiple admissions to this facility. He was recently admitted for an episode of pneumonia and was discharged home on Saturday. The patient does was discharged home on oral Levaquin. Patient was supposed to have the last dose yesterday. The patient was doing pretty well on . However, yesterday morning, the patient woke up, the patient having rigors and chills. The patient's did take his temperature and he did have a fever of 104 degrees Fahrenheit. Subsequently, the patient was brought into the [facility] ER for further evaluation. Patient did have an initial chest x-ray showed some COPD, but no active infiltrate. The patient did have acute influenza A and B PCR negative. He did have CT of abdomen and pelvis, which did show new infiltrate at the right lower lobe suspicious for pneumonia. The patient admitted with Unasyn and vancomycin with persistent fever, another swab was obtained by the R.N. on the floor and now is coming positive with acute influenza B. Tamiflu was added. I was asked to see the patient for further recommendations regarding antibiotic therapy. Patient seemed to be slightly sleepy and lethargic and unable to obtain history , most of the information has been obtained from review of the chart and talking to the nursing staff. The did mention did not have a significant cough or any sputum production. No history of any nausea, vomiting or any significant diarrhea. REVIEW OF SYSTEMS: Could not be reliably obtained, the positive points has been mentioned in the HPI. Past medical history significant for diabetes mellitus Type 2, coronary artery disease, multiple episodes of pneumonia, pressure ulcer to the coccyx area, skin cancer and peripheral neuropathy, degenerative disc disease, pancreatitis, shingles, hypothyroidism, CVA. PAST MEDICAL HISTORY: Bowel resection. Cholecystectomy. Coronary artery bypass grafting PTCA with stent, hernia repair, right hip replacement, tonsillectomy and surgery on right thumb, and cervical spine decompression. SOCIAL HISTORY: The patient did smoke about a pack a day for 13 years, quit about 10 years ago. Denies any drinking or drug use. FAMILY HISTORY: Mother of cancer in her 70s, father of lung cancer in his 80s. ALLERGIES: No known drug allergies. Medications currently include the patient is on: 1. Tylenol. 2. [place]. 3. DuoNeb. 4. Norvasc. 5. Unasyn. 6. Aspirin. 7. Lipitor. 8. Coreg. 9. Duragesic patch. 10. Neurontin. 11. Hydralazine. 12. Motrin. 13. Humalog. 14. Synthroid. 15. Cozaar. 16. Mag oxide. 17. Vancomycin, pharmacy to dose. 18. Tamiflu. On examination, blood pressure is 176/86 with pulse of 93, temperature 102.3, he is 93% on 2 L nasal cannula. General description is a middle-age male lying in bed in no distress. No tachypnea or accessory muscle of respiration use. HEENT examination shows pallor. There is no scleral icterus. Oral mucous membrane dry. NECK: Trachea central. No thyromegaly. LUNGS: Unlabored breathing. Coarse breath sounds at the bases. No wheeze. HEART: S1, S2. Regular rate and rhythm. ABDOMEN: Soft. No tenderness. No guarding or rigidity. EXTREMITIES: No edema of the feet. Examination of skin, no rash or mass palpable. NEUROLOGICAL: Patient remains to be lethargic, orientation cannot be determined. LABS: Hemoglobin 11.5, white count 2.8 with a BUN of 14, creatinine 0.86, influenza PCR was positive. Blood cultures currently pending. DIAGNOSTIC IMPRESSION AND PLAN: Patient brought into the hospital with fever of 104 degrees Fahrenheit where the patient did have evidence of tachycardia, leukopenia source likely combination of right lower lobe pneumonia in addition to acute influenza B as the patient has been admitted in the hospital and has been treated with multiple antibiotics, we will need to cover for gram negative positives as well as gram-negative pathogen. PLAN: 1. Will obtain sputum for gram stain culture and sensitivity. 2. With switch over Unasyn to Zosyn as concern is high for possible gram negative and continue the patient on vancomycin, pharmacy to dose while awaiting for the culture to finalized. 3. Tamiflu 75 mg p.o. twice a day for 5 days. 4. As the patient is known to Dr. Hardin, patient will be signed out to him who will follow the patient as of tomorrow. Family present at beside. Their questions were answered. [facility]OSPITALPatricia
[2016-12-08 17:30] LABS: Glucose,Whole Blood 199 mg/dL (75-99)
[2016-12-08] MEDS: CARVEDILOL 6.25 MG TAB PO SCH (17:37)
[2016-12-08] MEDS: HYDROcodone/APAP 10-325MG 1 EACH TAB PO PRN (17:59)
[2016-12-08] MEDS ORDERED: AMPICILLIN-SULBACTAM 3 GM in SODIUM CHLORIDE 0.9% 100 ML IVPB SCH (18:00)
[2016-12-08] MEDS: ATORVASTATIN 40 MG TAB PO SCH (21:10)
[2016-12-08] MEDS: MONTELUKAST 10 MG TAB PO SCH (21:10)
[2016-12-08 21:32] LABS: Glucose,Whole Blood 160 mg/dL (75-99)
[2016-12-09] MEDS: HYDROcodone/APAP 10-325MG 1 EACH TAB PO PRN ×5 (00:05→23:55)
[2016-12-09] MEDS: VANCOMYCIN 1,500 MG in SODIUM CHLORIDE 0.9% 250 ML IVPB SCH ×2 (00:06→12:20)
[2016-12-09] MEDS: PIPERACILLIN-TAZOBACTAM 3.375 GM in DEXTROSE/WATER 1 50ML.BAG IVPB SCH ×4 (01:28→23:55)
[2016-12-09] MEDS: SODIUM CHLORIDE 0.9% 1,000 ML IV SCH ×2 (04:40→18:20)
[2016-12-09] MEDS: LEVOTHYROXINE 50 MCG TAB PO SCH (06:06)
[2016-12-09 07:58] LABS: Glucose,Whole Blood 102 mg/dL (75-99)
[2016-12-09] MEDS: ASPIRIN 325 MG TAB PO SCH (07:59)
[2016-12-09] MEDS: INSULIN LISPRO (humaLOG) 300 UNIT/3 ML VIAL SQ SCH ×4 (07:59→21:06)
[2016-12-09] MEDS: MAGNESIUM OXIDE 400 MG TAB PO SCH ×3 (07:59→21:05)
[2016-12-09] MEDS: CARVEDILOL 6.25 MG TAB PO SCH ×2 (07:59→18:42)
[2016-12-09] MEDS: OSELTAMIVIR 75 MG CAP PO SCH ×2 (08:00→21:05)
[2016-12-09] MEDS: GABAPENTIN 400 MG CAP PO SCH ×3 (08:00→21:05)
[2016-12-09] MEDS: PANTOPRAZOLE 40 MG TABLET PO SCH (08:00)
[2016-12-09 08:20] LABS: Anion Gap 8 mmol/L; Blood Urea Nitrogen 16 mg/dL (9-20); Calcium 7.5 mg/dL (8.4-10.2); Carbon Dioxide 26 mmol/L (22-30); Chloride 106 mmol/L (98-107); Glucose 105 mg/dL (74-99); Non-African American GFR(MDRD) >60 (>60 ml/min/1.73 sqM); Potassium 4.3 mmol/L (3.5-5.1); Sodium 140 mmol/L (137-145)
[2016-12-09 08:25] LABS: Aty Lym Flag Slight; CH 28.6; CHCM 29.9; HCT 32.5 % (39.0-53.0); HDW 2.52; Hypochromasia Marked; MCH 29.4 pg (25.0-35.0); MCHC 30.7 g/dL (31.0-37.0); MCV 95.8 fL (80.0-100.0); Mean Platelet Volume 7.4; RBC 3.39 m/uL (4.30-5.90); RDW 15.4 % (11.5-15.5); WBC 3.9 k/uL (3.8-10.6); WBC (Perox) 4.05
[2016-12-09] MEDS ORDERED: LOSARTAN 50 MG TAB PO SCH (09:00)
[2016-12-09] MEDS ORDERED: amLODIPine 10 MG TAB PO SCH (09:00)
[2016-12-09] MEDS: IBUPROFEN 800 MG TAB PO PRN (09:53)
[2016-12-09 10:24] LABS: Add Differential Manual Differential
[2016-12-09 10:27] LABS: Nucleated Red Blood Cells 0 /100 WBC (0-0); Total Cells Counted 100
[2016-12-09] MEDS ORDERED: VANCOMYCIN TROUGH DUE 1 EACH MISC MISCELLANE ONE (11:00)
[2016-12-09 11:25] LABS: Glucose,Whole Blood 201 mg/dL (75-99)
--- NOTE | 2016-12-09 12:44 | PN ---
The patient is seen, evaluated, examined. Clinically patient is doing well. Spiking fever has resolved. Infectious disease service and cardiovascular service are following this patient. Of note that patient has a recent pneumonia and has been on Levaquin. Patient was supposed to see me in the office and was a no show. The patient developed fever up to 104 and came into the hospital. Patient has now been found to have influenza B and a new pneumonia for which patient is being treated along with Tamiflu. Infectious disease service is following this patient. He is concerned about his pain medications, as he takes them on more regular basis every 4 hours. His last set of vitals include blood pressure of 92/54, respiratory rate 16, pulse 90, temperature 98, saturation 93%. HEENT: Unremarkable. NECK: Supple. LUNGS: Good air entry bilaterally. HEART: Regular rate and rhythm. ABDOMEN: Soft. NEUROLOGICAL EXAMINATION: Otherwise, awake and alert. Labs reviewed. Medications reviewed as well. IMPRESSION: 1. Right lower lobe pneumonia. 2. Influenza B pneumonia. 3. Severe spiking fever, sepsis, associated with that. 4. Chronic pain syndrome. PLAN: Continue antibiotics. Continue supportive care. Follow clinical course closely.
[2016-12-09 17:12] LABS: Glucose,Whole Blood 193 mg/dL (75-99)
--- NOTE | 2016-12-09 17:48 | P.PN ---
Subjective Principal diagnosis: Fever and shortness of breath Very pleasant 56-year-old male has had multiple recent hospitalizations and has underlying significant immunocompromise related to his underlying arthritis and therapy. His had A complicated recent medical troubles that included bout of pancreatitis which was severe. He also recently had difficulties with bouts of hypotension with metabolic derangement. Thought to be due to underlying medications that included allopurinol as well as his metformin. He has had a steroid responsive that was adequate. However now presents the emergency center was significant shortness of breath cough or sputum production. Was also having fever and chill and feeling very poorly. Evaluations reveal evidence of influenza B status. He was admitted due to his severe shortness of breath and markedly a normal chest x-ray. Tamiflu was started. Objective - Vital Signs Vital signs: Vital Signs Temp 97.3 F L 12/09/16 15:00 Pulse 68 12/09/16 17:34 Resp 20 12/09/16 17:34 BP 110/64 12/09/16 17:34 Pulse Ox 98 12/09/16 17:34 Intake & Output 12/08/16 12/09/16 12/09/16 18:59 06:59 18:59 Intake Total 2306.40 600 1700 Output Total 400 1500 Balance 1906.40 600 200 Weight 78.471 kg Intake: Intake, IV Titration 1106.40 900 Amount ACETAMINOPHEN IV (For NPO 50 ) 1,000 mg In Empty Bag 1 bag @ 400 mls/hr IVPB Q6HR [facility] Rx#:[id number] Heparin Sodium,Porcine/ 156.40 D5w Pmx 25,000 unit In Dextrose/Water 1 500ml. bag @ 18 UNITS/KG/HR 28. 24 mls/hr IV .[id number] [facility] Rx#:[id number] Piperacillin-Tazobactam 3 50 .375 gm In Dextrose/Water 1 50ml.bag @ 12.5 mls/hr IVPB Q8HR [facility] Rx#: [id number] Sodium Chloride 0.9% 1, 650 600 000 ml @ 75 mls/hr IV . [id number] [facility] Rx#:[id number] Vancomycin 1,500 mg In 250 250 Sodium Chloride 0.9% 250 ml @ 125 mls/hr IVPB Q12HR@0000,1200 [facility] Rx#: [id number] Oral 1200 600 800 Output: Urine 400 1500 Other: Voiding Method Urinal Urinal Urinal # Voids 6 2 4 # Bowel Movements 2 - Exam 56-year-old male who has complaints complains of generalized fatigue and fever that has improved HEENT: Anicteric conjunctiva are pink and moist nasal mucosa grossly intact without significant lesions, there is no thrush. Mucosa dry Neck: The neck is supple without significant lymphadenopathy or thyromegaly. Lungs: Good bilateral air entry with evidence of wheezing and crackles at the lung field especially at the bases.. There is no egophony or dullness. Heart: Irregular with an audible S1 and S2 no S3 soft S4 no murmur click or rub. Abdomen: Positive bowel sounds soft and nontender without palpable masses or organomegaly. There was no guarding or rebound. Extremities: The left upper extremity shows no acute difficulties, IV site is present, the right wrist reveals evidence of the prior surgical intervention. The extensive prior wound has healed. No evidence of any erythema or tenderness at that site. Skin: Area of ulceration to the buttocks as healed only has some residual mild skin discoloration with some erythema to the area where he had dressing in place. There is no epitrochlear or axillary lymphadenopathy. No other lymphadenopathy is noted. Neuro: Awake alert oriented to person place and time. There are no acute new gross focal sensory motor deficits. - Labs CBC & Chem 7: 12/09/16 07:34 12/09/16 07:34 Labs: Abnormal Lab Results - Last 24 Hours (Table) 12/08/16 12/09/16 12/09/16 Range/Units 21:08 07:34 07:34 RBC 3.39 L (4.30-5.90) m/uL Hgb 10.0 L D (13.0-17.5) gm/dL Hct 32.5 L (39.0-53.0) % MCHC 30.7 L (31.0-37.0) g/dL Plt Count 116 L (150-450) k/uL Lymphocytes # (Manual) 0.5 L (1.0-4.8) k/uL APTT (22.0-30.0) sec Glucose 105 H (74-99) mg/dL POC Glucose (mg/dL) 160 H (75-99) mg/dL Calcium 7.5 L (8.4-10.2) mg/dL 12/09/16 12/09/16 12/09/16 Range/Units 07:34 07:54 11:24 RBC (4.30-5.90) m/uL Hgb (13.0-17.5) gm/dL Hct (39.0-53.0) % MCHC (31.0-37.0) g/dL Plt Count (150-450) k/uL Lymphocytes # (Manual) (1.0-4.8) k/uL APTT 30.3 H (22.0-30.0) sec Glucose (74-99) mg/dL POC Glucose (mg/dL) 102 H 201 H (75-99) mg/dL Calcium (8.4-10.2) mg/dL 12/09/16 Range/Units 17:08 RBC (4.30-5.90) m/uL Hgb (13.0-17.5) gm/dL Hct (39.0-53.0) % MCHC (31.0-37.0) g/dL Plt Count (150-450) k/uL Lymphocytes # (Manual) (1.0-4.8) k/uL APTT (22.0-30.0) sec Glucose (74-99) mg/dL POC Glucose (mg/dL) 193 H (75-99) mg/dL Calcium (8.4-10.2) mg/dL Microbiology - Last 24 Hours (Table) 12/07/16 14:55 Blood Culture - Preliminary Blood No Growth after 48 hours Laboratory Results WBC 3.9 k/uL (3.8-10.6) 12/09/16 07:34 RBC 3.39 m/uL (4.30-5.90) L 12/09/16 07:34 Hgb 10.0 gm/dL (13.0-17.5) L D 12/09/16 07:34 Hct 32.5 % (39.0-53.0) L 12/09/16 07:34 MCV 95.8 fL (80.0-100.0) 12/09/16 07:34 MCH 29.4 pg (25.0-35.0) 12/09/16 07:34 MCHC 30.7 g/dL (31.0-37.0) L 12/09/16 07:34 RDW 15.4 % (11.5-15.5) 12/09/16 07:34 Plt Count 116 k/uL (150-450) L 12/09/16 07:34 Neutrophils % 79 % 12/07/16 09:46 Neutrophils % (Manual) 81.0 % 12/09/16 07:34 Band Neutrophils % 2.0 % 12/09/16 07:34 Lymphocytes % 9 % 12/07/16 09:46 Lymphocytes % (Manual) 14.0 % 12/09/16 07:34 Monocytes % 7 % 12/07/16 09:46 Monocytes % (Manual) 2.0 % 12/09/16 07:34 Eosinophils % 1 % 12/07/16 09:46 Basophils % 1 % 12/07/16 09:46 Basophils % (Manual) 1.0 % 12/09/16 07:34 Neutrophils # 4.2 k/uL (1.3-7.7) 12/07/16 09:46 Neutrophils # (Manual) 3.2 k/uL (1.3-7.7) 12/09/16 07:34 Lymphocytes # 0.5 k/uL (1.0-4.8) L 12/07/16 09:46 Lymphocytes # (Manual) 0.5 k/uL (1.0-4.8) L 12/09/16 07:34 Monocytes # 0.4 k/uL (0-1.0) 12/07/16 09:46 Monocytes # (Manual) 0.1 k/uL (0-1.0) 12/09/16 07:34 Eosinophils # 0.1 k/uL (0-0.7) 12/07/16 09:46 Basophils # 0.0 k/uL (0-0.2) 12/07/16 09:46 Basophils # (Manual) 0.0 k/uL (0-0.2) 12/09/16 07:34 Nucleated RBCs 0 /100 WBC (0-0) 12/09/16 07:34 Manual Slide Review Performed 12/08/16 05:33 Hypochromasia Marked 12/09/16 07:34 PT 11.8 sec (9.0-12.0) 12/08/16 12:05 INR 1.2 (<1.1) 12/08/16 12:05 APTT 30.3 sec (22.0-30.0) H 12/09/16 07:34 Sodium 140 mmol/L (137-145) 12/09/16 07:34 Potassium 4.3 mmol/L (3.5-5.1) 12/09/16 07:34 Chloride 106 mmol/L (98-107) 12/09/16 07:34 Carbon Dioxide 26 mmol/L (22-30) 12/09/16 07:34 Anion Gap 8 mmol/L 12/09/16 07:34 BUN 16 mg/dL (9-20) 12/09/16 07:34 Creatinine 0.90 mg/dL (0.66-1.25) 12/09/16 07:34 Est GFR (MDRD) Af Amer >60 (>60 ml/min/1.73 sqM) 12/09/16 07:34 Est GFR (MDRD) Non-Af >60 (>60 ml/min/1.73 sqM) 12/09/16 07:34 Glucose 105 mg/dL (74-99) H 12/09/16 07:34 POC Glucose (mg/dL) 193 mg/dL (75-99) H 12/09/16 17:08 POC Glu Boat Loader ID Apple Ricketts 12/09/16 17:[address] Glu mg/dL 143 mg/dL 12/07/16 09:46 Hemoglobin A1c 6.6 % (4.2-6.1) H 12/07/16 09:46 Plasma Lactic Acid Freddy 1.0 mmol/L (0.7-2.0) 12/07/16 14:55 Calcium 7.5 mg/dL (8.4-10.2) L 12/09/16 07:34 Phosphorus 5.4 mg/dL (2.5-4.5) H 12/08/16 05:33 Magnesium 2.2 mg/dL (1.6-2.3) 12/08/16 05:33 Total Bilirubin 0.9 mg/dL (0.2-1.3) 12/07/16 09:46 AST 50 U/L (17-59) 12/07/16 09:46 ALT 44 U/L (21-72) 12/07/16 09:46 Alkaline Phosphatase 104 U/L (38-126) 12/07/16 09:46 Total Creatine Kinase 37 U/L (55-170) L 12/07/16 09:46 CK-MB (CK-2) 0.7 ng/mL (0.0-2.4) 12/07/16 09:46 CK-MB (CK-2) Rel Index 1.9 12/07/16 09:46 Troponin I 0.038 ng/mL (0.000-0.034) H* 12/07/16 09:46 NT-Pro-B Natriuret Pep 3290 pg/mL 12/07/16 09:46 Total Protein 6.8 g/dL (6.3-8.2) 12/07/16 09:46 Albumin 3.8 g/dL (3.5-5.0) 12/07/16 09:46 TSH 1.440 mIU/L (0.465-4.680) 12/07/16 09:46 Urine Color Yellow 12/07/16 09:50 Urine Appearance Clear (Clear) 12/07/16 09:50 Urine pH 7.0 (5.0-8.0) 12/07/16 09:50 Ur Specific [place] 1.011 (1.001-1.035) 12/07/16 09:50 Urine Protein Trace (Negative) H 12/07/16 09:50 Urine Glucose (UA) 3+ (Negative) H 12/07/16 09:50 Urine Ketones Negative (Negative) 12/07/16 09:50 Urine Blood Negative (Negative) 12/07/16 09:50 Urine Nitrite Negative (Negative) 12/07/16 09:50 Urine Bilirubin Negative (Negative) 12/07/16 09:50 Urine Urobilinogen <2.0 mg/dL (<2.0) 12/07/16 09:50 Ur Leukocyte Esterase Negative (Negative) 12/07/16 09:50 Vancomycin Trough 22.8 ug/mL 12/09/16 11:36 Influenza Type A RNA Not Detected (Not Detectd) 12/08/16 10:47 Influenza Type B (PCR) Detected (Not Detectd) H 12/08/16 10:47 Microbiology 12/07/16 14:55 Blood Blood Culture - Preliminary No Growth after 48 hours 12/07/16 09:46 Blood Blood Culture - Preliminary No Growth after 48 hours 12/07/16 09:50 Urine,Voided Urine Culture - Final - Imaging and Cardiology CT scan - abdomen: report reviewed (CT abdomen and pelvis without significant new lesions within the abdomen but right posterior lower lobe infiltrate) Assessment and Plan (1) Influenza due to influenza virus, type B Narrative/Plan: 56-year-old male that has a significant recent past medical history associated with multiple admissions of included hypotension and lactic acidosis. Thought to be medication induced from allopurinol as well as metformin. His had bouts of diarrhea without evidence of gastrointestinal bleed or C. diff. Patient now presents with fever generalized malaise off nasal congestion and generalized malaise, was found evidence of influenza B positive status. Tamiflu was begun. Given his history of multiple recent infections antibiotic therapy with piperacillin tazobactam and vancomycin were begun for treatment of potential complicating pneumonia including staph or MRSA which are commonly associated with influenza. The high-grade fever of 104 at admission is improved. Temperature 97.3 today. Showing good response to current interventions. We'll complete his course of Tamiflu and will transition to oral antibiotic therapy as he improves. We'll restart his Cortef 20 mg daily. Status: Acute (2) Pneumonia and influenza Status: Acute
[2016-12-09 20:31] LABS: Glucose,Whole Blood 244 mg/dL (75-99)
[2016-12-09] MEDS: ATORVASTATIN 40 MG TAB PO SCH (21:05)
[2016-12-09] MEDS: HYDROCORTISONE 20 MG TAB PO SCH (21:05)
[2016-12-09] MEDS: MONTELUKAST 10 MG TAB PO SCH (21:05)
[2016-12-09] MEDS: VANCOMYCIN 1,250 MG in SODIUM CHLORIDE 0.9% 250 ML IVPB SCH (23:55)
[2016-12-10] MEDS: SODIUM CHLORIDE 0.9% 1,000 ML IV SCH ×2 (05:56→17:49)
[2016-12-10 07:35] LABS: Glucose,Whole Blood 228 mg/dL (75-99)
[2016-12-10 08:32] LABS: Basophils % (A) 0 %; CH 28.4; CHCM 29.7; Eosinophils % (A) 0 %; HCT 36.4 % (39.0-53.0); HDW 2.61; HGB 11.1 gm/dL (13.0-17.5); Hypochromasia Marked; Luc # (Auto) 0.16; Luc % (Auto) 3; Lymphocytes # (A) 0.5 k/uL (1.0-4.8); Lymphocytes % (A) 8 %; MCH 29.2 pg (25.0-35.0); MCHC 30.5 g/dL (31.0-37.0); MCV 95.9 fL (80.0-100.0); Mean Platelet Volume 8.5; Monocytes # (A) 0.4 k/uL (0-1.0); Monocytes % (A) 6 %; Neutrophils # (A) 4.8 k/uL (1.3-7.7); Neutrophils % (A) 83 %; RBC 3.79 m/uL (4.30-5.90); RDW 15.2 % (11.5-15.5); WBC 5.9 k/uL (3.8-10.6); WBC (Perox) 6.31
[2016-12-10] MEDS: INSULIN LISPRO (humaLOG) 300 UNIT/3 ML VIAL SQ SCH ×4 (08:38→21:57)
[2016-12-10] MEDS: GABAPENTIN 400 MG CAP PO SCH ×3 (08:42→21:57)
[2016-12-10] MEDS: MAGNESIUM OXIDE 400 MG TAB PO SCH ×3 (08:42→21:57)
[2016-12-10] MEDS: OSELTAMIVIR 75 MG CAP PO SCH ×2 (08:42→21:57)
[2016-12-10] MEDS: LEVOTHYROXINE 50 MCG TAB PO SCH (08:42)
[2016-12-10] MEDS: amLODIPine 5 MG TAB PO SCH (08:42)
[2016-12-10] MEDS: ASPIRIN 325 MG TAB PO SCH (08:43)
[2016-12-10] MEDS: HYDROCORTISONE 20 MG TAB PO SCH (08:43)
[2016-12-10] MEDS: PANTOPRAZOLE 40 MG TABLET PO SCH (08:44)
[2016-12-10] MEDS: PIPERACILLIN-TAZOBACTAM 3.375 GM in DEXTROSE/WATER 1 50ML.BAG IVPB SCH ×2 (08:49→15:57)
[2016-12-10 08:55] LABS: Anion Gap 8 mmol/L; Blood Urea Nitrogen 14 mg/dL (9-20); Calcium 7.7 mg/dL (8.4-10.2); Carbon Dioxide 30 mmol/L (22-30); Chloride 103 mmol/L (98-107); Glucose 210 mg/dL (74-99); Non-African American GFR(MDRD) >60 (>60 ml/min/1.73 sqM); Potassium 4.4 mmol/L (3.5-5.1); Sodium 141 mmol/L (137-145)
--- NOTE | 2016-12-10 11:28 | ECHOF ---
Referral Reason:cardiac status MEASUREMENTS -------- HEIGHT: 167.6 cm WEIGHT: 78.5 kg BP: 117/86 RVIDd: 3.1 cm (< 3.3) IVSd: 1.2 cm (0.6 - 1.1) LVIDd: 5.2 cm (3.9 - 5.3) LVPWd: 1.2 cm (0.6 - 1.1) IVSs: 1.6 cm LVIDs: 3.6 cm LVPWs: 1.8 cm LA Diam: 3.3 cm (2.7 - 3.8) LAESV Index (A-L): 21.94 ml/m Ao Diam: 3.5 cm (2.0 - 3.7) AV Cusp: 2.1 cm (1.5 - 2.6) MV EXCURSION: 13.900 mm (> 18.000) MV EF SLOPE: 72 mm/s (70 - 150) EPSS: 1.1 cm MV E Javy: 1.34 m/s MV DecT: 185 ms MV A Javy: 0.98 m/s MV E/A Ratio: 1.37 AV maxP.04 mmHg AV meanP.01 mmHg FINDINGS -------- Sinus rhythm with extra systolic beats. This was a technically good study. The left ventricular size is normal. There is borderline concentric left ventricular hypertrophy. Overall left ventricular systolic function is mild-moderately impaired with, an EF between 40 - 45 %. Basal lateral LV wall motion is hypokinetic. Basal inferior LV wall motion is hypokinetic. Mid inferior LV wall motion is hypokinetic. Mid inferoseptal LV wall motion is hypokinetic. The right ventricle is normal in size. Normal LA size by volume 22+/-6 ml/m2. The right atrium is normal in size. The aortic valve is trileaflet and appears structurally normal. The mitral valve is normal. Mild mitral regurgitation is present. The tricuspid valve appears structurally normal. Trace/mild (physiologic) pulmonic regurgitation. The aortic root size is normal. Normal inferior vena cava with normal inspiratory collapse consistent with estimated right atrial pressure of 5 mmHg. There is no pericardial effusion. CONCLUSIONS -------- 1. Sinus rhythm with extra systolic beats. 2. Mild mitral regurgitation is present. 3. The tricuspid valve appears structurally normal. 4. Trace/mild (physiologic) pulmonic regurgitation. 5. The aortic root size is normal. 6. Normal inferior vena cava with normal inspiratory collapse consistent with estimated right atrial pressure of 5 mmHg. 7. There is no pericardial effusion. 8. This was a technically good study. 9. There is borderline concentric left ventricular hypertrophy. 10. Overall left ventricular systolic function is mild-moderately impaired with, an EF between 40 - 45 %. 11. Basal inferior LV wall motion is hypokinetic. 12. Mid inferior LV wall motion is hypokinetic. 13. Mid inferoseptal LV wall motion is hypokinetic. 14. Normal LA size by volume 22+/-6 ml/m2. 15. The aortic valve is trileaflet and appears structurally normal. DIRECTOR OF MUSIC: Emily Koehler RDCS
[2016-12-10] MEDS: VANCOMYCIN 1,250 MG in SODIUM CHLORIDE 0.9% 250 ML IVPB SCH ×2 (11:53→23:18)
[2016-12-10] MEDS: HYDROcodone/APAP 10-325MG 1 EACH TAB PO PRN ×2 (11:55→19:06)
[2016-12-10 12:01] LABS: Glucose,Whole Blood 208 mg/dL (75-99)
[2016-12-10] MEDS: METOPROLOL TARTRATE 25 MG TAB PO SCH ×2 (15:57→21:57)
[2016-12-10 17:19] LABS: Glucose,Whole Blood 234 mg/dL (75-99)
--- NOTE | 2016-12-10 17:25 | P.PN ---
Subjective Principal diagnosis: Influenza B pna Patient seen and examined. Patient states he is feeling better overall except that he is now nauseated with diarrhea. He did have a fever this morning. He denies chest pain, SOB. Objective - Vital Signs Vital signs: Vital Signs Temp 97.5 F L 12/10/16 15:00 Pulse 99 12/10/16 15:00 Resp 16 12/10/16 15:00 BP 140/82 12/10/16 15:00 Pulse Ox 91 L 12/10/16 15:00 Intake & Output 12/09/16 12/10/16 12/10/16 18:59 06:59 18:59 Intake Total 1700 700 650 Output Total 1500 Balance 200 700 650 Weight 78.471 kg Intake: Intake, IV Titration 900 350 650 Amount Piperacillin-Tazobactam 3 50 100 50 .375 gm In Dextrose/Water 1 50ml.bag @ 12.5 mls/hr IVPB Q8HR [facility] Rx#: [id number] Sodium Chloride 0.9% 1, 600 600 000 ml @ 75 mls/hr IV . [id number] [facility] Rx#:[id number] Vancomycin 1,250 mg In 250 Sodium Chloride 0.9% 250 ml @ 125 mls/hr IVPB Q12HR@0000,1200 [facility] Rx#: [id number] Vancomycin 1,500 mg In 250 Sodium Chloride 0.9% 250 ml @ 125 mls/hr IVPB Q12HR@0000,1200 [facility] Rx#: [id number] Oral 800 350 Output: Urine 1500 Other: Voiding Method Urinal Urinal Urinal # Voids 4 1 2 # Bowel Movements 1 - Exam Gen.: Patient is alert and oriented 3, no acute distress Cardiovascular: Regular rate and rhythm, S1/S2 Lungs: Diminished breath sounds with bibasilar crackles Abdomen: Soft nontender nondistended positive bowel sounds Extremities: 2+ pitting edema - Labs CBC & Chem 7: 12/10/16 07:52 12/10/16 07:52 Labs: Abnormal Lab Results - Last 24 Hours (Table) 12/09/16 12/10/16 12/10/16 Range/Units 20:25 07:22 07:52 RBC 3.79 L (4.30-5.90) m/uL Hgb 11.1 L (13.0-17.5) gm/dL Hct 36.4 L (39.0-53.0) % MCHC 30.5 L (31.0-37.0) g/dL Plt Count 108 L (150-450) k/uL Lymphocytes # 0.5 L (1.0-4.8) k/uL Glucose (74-99) mg/dL POC Glucose (mg/dL) 244 H 228 H (75-99) mg/dL Calcium (8.4-10.2) mg/dL 12/10/16 12/10/16 Range/Units 07:52 11:55 RBC (4.30-5.90) m/uL Hgb (13.0-17.5) gm/dL Hct (39.0-53.0) % MCHC (31.0-37.0) g/dL Plt Count (150-450) k/uL Lymphocytes # (1.0-4.8) k/uL Glucose 210 H (74-99) mg/dL POC Glucose (mg/dL) 208 H (75-99) mg/dL Calcium 7.7 L (8.4-10.2) mg/dL Microbiology - Last 24 Hours (Table) 12/07/16 14:55 Blood Culture - Preliminary Blood No Growth after 48 hours Assessment and Plan Plan: Influenza B pneumonia Sepsis Pyrexia By basilar atelectasis Pancytopenia, likely due to sepsis New onset atrial fibrillation, rate controlled Dehydration Diarrhea Systolic Heart Failure with EF 40-45% Decubitus ulcers 2 Possible obstructive sleep apnea Hypertensive urgency Recent hospitalization for pneumonia Diabetes mellitus type [address] Peripheral neuropathy Degenerative disc disease History of CVA Hypothyroidism O2 to maintain saturation greater than equal to 88% Continue Tamiflu Continue Motrin and Tylenol for fevers ID recs appreciated Continue antibiotics: Zosyn and vancomycin Bronchodilators Heparin drip for Afib - cardio recs appreciated Continue home medications Pain control GI and DVT prophylaxis Incentive spirometry and pulmonary hygiene Monitor labs closely Continue IV fluid hydration Check Cdiff Antiemetics Continue supportive care
--- NOTE | 2016-12-10 17:26 | PN ---
Mr. Ribera is a 56-year-old male with a known history of coronary artery disease, who presented with symptoms of progressive dyspnea as well as cough and was diagnosed with influenza B. He is feeling slightly better today. He has no chest pain. No dizziness or palpitation. There was a question of atrial fibrillation, but after reviewing the rhythm strip, patient in sinus mechanism with frequent PACs. He had an echocardiogram that showed an ejection fraction of 40% to 45% with segmental wall motion abnormality that has been reported in the past. His medications at this time include: 1. Aspirin. 2. Lipitor 40 mg daily. 3. Gabapentin. 4. Solu-Cortef. 5. Levothyroxine. 6. Tamiflu. 7. Amlodipine 5 mg daily. PHYSICAL EXAMINATION: Blood pressure 145/90 with a temperature of 101.3. Heart rate in the 90s. LUNGS: No wheezes. HEART: Regular rate and rhythm. S1, S2, no S3, with systolic murmur. No diastolic murmur. ABDOMEN: Soft, nontender. EXTREMITIES: No edema. Lab data revealed BUN, creatinine of 14 and 0.8. Potassium 4.4. Hemoglobin of 11.1. IMPRESSION: 1. Influenza B infection. 2. Atrial arrhythmia related to the infection. 3. History of coronary artery disease and ischemic cardiomyopathy, stable. 4. History of hypertension. 5. Hyperlipidemia. 6. Diabetes mellitus. 7. History of chronic back pain. RECOMMENDATION: From the cardiac standpoint, he is stable. I see no evidence of active ischemic issue. I will continue on the present treatment. I will add to his regimen a beta gideon to control his PACs. Otherwise, continue the rest of his medical regimen. Depending on his progress, further recommendation will be made.
[2016-12-10 20:14] LABS: Glucose,Whole Blood 248 mg/dL (75-99)
--- NOTE | 2016-12-10 20:27 | P.PN ---
Subjective Principal diagnosis: Fever and shortness of breath Very pleasant 56-year-old male has had multiple recent hospitalizations and has underlying significant immunocompromise related to his underlying arthritis and therapy. His had A complicated recent medical troubles that included bout of pancreatitis which was severe. He also recently had difficulties with bouts of hypotension with metabolic derangement. Thought to be due to underlying medications that included allopurinol as well as his metformin. He has had a steroid responsive that was adequate. However now presents the emergency center was significant shortness of breath cough or sputum production. Was also having fever and chill and feeling very poorly. Evaluations reveal evidence of influenza B status. He was admitted due to his severe shortness of breath and markedly a normal chest x-ray. Tamiflu was started. Antibiotic therapy with Zosyn and vancomycin have been started due to concerns for gram-negative and even MRSA pneumonia. Objective - Vital Signs Vital signs: Vital Signs Temp 97.5 F L 12/10/16 15:00 Pulse 99 12/10/16 15:00 Resp 16 12/10/16 15:00 BP 140/82 12/10/16 15:00 Pulse Ox 91 L 12/10/16 15:00 Intake & Output 12/10/16 12/10/16 12/11/16 06:59 18:59 06:59 Intake Total 700 650 Balance 700 650 Intake: Intake, IV Titration 350 650 Amount Piperacillin-Tazobactam 3 100 50 .375 gm In Dextrose/Water 1 50ml.bag @ 12.5 mls/hr IVPB Q8HR [facility] Rx#: [id number] Sodium Chloride 0.9% 1, 600 000 ml @ 75 mls/hr IV . [id number] [facility] Rx#:[id number] Vancomycin 1,250 mg In 250 Sodium Chloride 0.9% 250 ml @ 125 mls/hr IVPB Q12HR@0000,1200 [facility] Rx#: [id number] Oral 350 Other: Voiding Method Urinal Urinal # Voids 1 2 # Bowel Movements 1 - Exam 56-year-old male who has complaints complains of generalized fatigue and fever that has improved HEENT: Anicteric conjunctiva are pink and moist nasal mucosa grossly intact without significant lesions, there is no thrush. Mucosa dry Neck: The neck is supple without significant lymphadenopathy or thyromegaly. Lungs: Good bilateral air entry with evidence of wheezing and crackles at the lung field especially at the bases.. There is no egophony or dullness. Heart: Irregular with an audible S1 and S2 no S3 soft S4 no murmur click or rub. Abdomen: Positive bowel sounds soft and nontender without palpable masses or organomegaly. There was no guarding or rebound. Extremities: The left upper extremity shows no acute difficulties, IV site is present, the right wrist reveals evidence of the prior surgical intervention. The extensive prior wound has healed. No evidence of any erythema or tenderness at that site. Bilateral lower extremity edema is occurring Skin: Area of ulceration to the buttocks as healed only has some residual mild skin discoloration with some erythema to the area where he had dressing in place. There is no epitrochlear or axillary lymphadenopathy. No other lymphadenopathy is noted. Neuro: Awake alert oriented to person place and time. There are no acute new gross focal sensory motor deficits. - Labs CBC & Chem 7: 12/10/16 07:52 12/10/16 07:52 Labs: Abnormal Lab Results - Last 24 Hours (Table) 12/09/16 12/10/16 12/10/16 Range/Units 20:25 07:22 07:52 RBC 3.79 L (4.30-5.90) m/uL Hgb 11.1 L (13.0-17.5) gm/dL Hct 36.4 L (39.0-53.0) % MCHC 30.5 L (31.0-37.0) g/dL Plt Count 108 L (150-450) k/uL Lymphocytes # 0.5 L (1.0-4.8) k/uL Glucose (74-99) mg/dL POC Glucose (mg/dL) 244 H 228 H (75-99) mg/dL Calcium (8.4-10.2) mg/dL 12/10/16 12/10/16 12/10/16 Range/Units 07:52 11:55 17:14 RBC (4.30-5.90) m/uL Hgb (13.0-17.5) gm/dL Hct (39.0-53.0) % MCHC (31.0-37.0) g/dL Plt Count (150-450) k/uL Lymphocytes # (1.0-4.8) k/uL Glucose 210 H (74-99) mg/dL POC Glucose (mg/dL) 208 H 234 H (75-99) mg/dL Calcium 7.7 L (8.4-10.2) mg/dL 12/10/16 Range/Units 20:00 RBC (4.30-5.90) m/uL Hgb (13.0-17.5) gm/dL Hct (39.0-53.0) % MCHC (31.0-37.0) g/dL Plt Count (150-450) k/uL Lymphocytes # (1.0-4.8) k/uL Glucose (74-99) mg/dL POC Glucose (mg/dL) 248 H (75-99) mg/dL Calcium (8.4-10.2) mg/dL Microbiology - Last 24 Hours (Table) 12/07/16 14:55 Blood Culture - Preliminary Blood No Growth after 72 hours Laboratory Results WBC 5.9 k/uL (3.8-10.6) 12/10/16 07:52 RBC 3.79 m/uL (4.30-5.90) L 12/10/16 07:52 Hgb 11.1 gm/dL (13.0-17.5) L 12/10/16 07:52 Hct 36.4 % (39.0-53.0) L 12/10/16 07:52 MCV 95.9 fL (80.0-100.0) 12/10/16 07:52 MCH 29.2 pg (25.0-35.0) 12/10/16 07:52 MCHC 30.5 g/dL (31.0-37.0) L 12/10/16 07:52 RDW 15.2 % (11.5-15.5) 12/10/16 07:52 Plt Count 108 k/uL (150-450) L 12/10/16 07:52 Neutrophils % 83 % 12/10/16 07:52 Neutrophils % (Manual) 81.0 % 12/09/16 07:34 Band Neutrophils % 2.0 % 12/09/16 07:34 Lymphocytes % 8 % 12/10/16 07:52 Lymphocytes % (Manual) 14.0 % 12/09/16 07:34 Monocytes % 6 % 12/10/16 07:52 Monocytes % (Manual) 2.0 % 12/09/16 07:34 Eosinophils % 0 % 12/10/16 07:52 Basophils % 0 % 12/10/16 07:52 Basophils % (Manual) 1.0 % 12/09/16 07:34 Neutrophils # 4.8 k/uL (1.3-7.7) 12/10/16 07:52 Neutrophils # (Manual) 3.2 k/uL (1.3-7.7) 12/09/16 07:34 Lymphocytes # 0.5 k/uL (1.0-4.8) L 12/10/16 07:52 Lymphocytes # (Manual) 0.5 k/uL (1.0-4.8) L 12/09/16 07:34 Monocytes # 0.4 k/uL (0-1.0) 12/10/16 07:52 Monocytes # (Manual) 0.1 k/uL (0-1.0) 12/09/16 07:34 Eosinophils # 0.0 k/uL (0-0.7) 12/10/16 07:52 Basophils # 0.0 k/uL (0-0.2) 12/10/16 07:52 Basophils # (Manual) 0.0 k/uL (0-0.2) 12/09/16 07:34 Nucleated RBCs 0 /100 WBC (0-0) 12/09/16 07:34 Manual Slide Review Performed 12/08/16 05:33 Hypochromasia Marked 12/10/16 07:52 PT 11.8 sec (9.0-12.0) 12/08/16 12:05 INR 1.2 (<1.1) 12/08/16 12:05 APTT 30.3 sec (22.0-30.0) H 12/09/16 07:34 Sodium 141 mmol/L (137-145) 12/10/16 07:52 Potassium 4.4 mmol/L (3.5-5.1) 12/10/16 07:52 Chloride 103 mmol/L (98-107) 12/10/16 07:52 Carbon Dioxide 30 mmol/L (22-30) 12/10/16 07:52 Anion Gap 8 mmol/L 12/10/16 07:52 BUN 14 mg/dL (9-20) 12/10/16 07:52 Creatinine 0.80 mg/dL (0.66-1.25) 12/10/16 07:52 Est GFR (MDRD) Af Amer >60 (>60 ml/min/1.73 sqM) 12/10/16 07:52 Est GFR (MDRD) Non-Af >60 (>60 ml/min/1.73 sqM) 12/10/16 07:52 Glucose 210 mg/dL (74-99) H 12/10/16 07:52 POC Glucose (mg/dL) 248 mg/dL (75-99) H 12/10/16 20:00 POC Glu Insurance Application Investigator ID Radha Mcdaniel 12/10/16 20:[address] Glu mg/dL 143 mg/dL 12/07/16 09:46 Hemoglobin A1c 6.6 % (4.2-6.1) H 12/07/16 09:46 Plasma Lactic Acid Freddy 1.0 mmol/L (0.7-2.0) 12/07/16 14:55 Calcium 7.7 mg/dL (8.4-10.2) L 12/10/16 07:52 Phosphorus 5.4 mg/dL (2.5-4.5) H 12/08/16 05:33 Magnesium 2.2 mg/dL (1.6-2.3) 12/08/16 05:33 Total Bilirubin 0.9 mg/dL (0.2-1.3) 12/07/16 09:46 AST 50 U/L (17-59) 12/07/16 09:46 ALT 44 U/L (21-72) 12/07/16 09:46 Alkaline Phosphatase 104 U/L (38-126) 12/07/16 09:46 Total Creatine Kinase 37 U/L (55-170) L 12/07/16 09:46 CK-MB (CK-2) 0.7 ng/mL (0.0-2.4) 12/07/16 09:46 CK-MB (CK-2) Rel Index 1.9 12/07/16 09:46 Troponin I 0.038 ng/mL (0.000-0.034) H* 12/07/16 09:46 NT-Pro-B Natriuret Pep 3290 pg/mL 12/07/16 09:46 Total Protein 6.8 g/dL (6.3-8.2) 12/07/16 09:46 Albumin 3.8 g/dL (3.5-5.0) 12/07/16 09:46 TSH 1.440 mIU/L (0.465-4.680) 12/07/16 09:46 Urine Color Yellow 12/07/16 09:50 Urine Appearance Clear (Clear) 12/07/16 09:50 Urine pH 7.0 (5.0-8.0) 12/07/16 09:50 Ur Specific [place] 1.011 (1.001-1.035) 12/07/16 09:50 Urine Protein Trace (Negative) H 12/07/16 09:50 Urine Glucose (UA) 3+ (Negative) H 12/07/16 09:50 Urine Ketones Negative (Negative) 12/07/16 09:50 Urine Blood Negative (Negative) 12/07/16 09:50 Urine Nitrite Negative (Negative) 12/07/16 09:50 Urine Bilirubin Negative (Negative) 12/07/16 09:50 Urine Urobilinogen <2.0 mg/dL (<2.0) 12/07/16 09:50 Ur Leukocyte Esterase Negative (Negative) 12/07/16 09:50 Vancomycin Trough 22.8 ug/mL 12/09/16 11:36 Influenza Type A RNA Not Detected (Not Detectd) 12/08/16 10:47 Influenza Type B (PCR) Detected (Not Detectd) H 12/08/16 10:47 Microbiology 12/07/16 14:55 Blood Blood Culture - Preliminary No Growth after 72 hours 12/07/16 09:46 Blood Blood Culture - Preliminary No Growth after 72 hours 12/07/16 09:50 Urine,Voided Urine Culture - Final Assessment and Plan (1) Influenza due to influenza virus, type B Narrative/Plan: 56-year-old male that has a significant recent past medical history associated with multiple admissions of included hypotension and lactic acidosis. Thought to be medication induced from allopurinol as well as metformin. His had bouts of diarrhea without evidence of gastrointestinal bleed or C. diff. Patient now presents with fever generalized malaise off nasal congestion and generalized malaise, was found evidence of influenza B positive status. Tamiflu was begun. Given his history of multiple recent infections antibiotic therapy with piperacillin tazobactam and vancomycin were begun for treatment of potential complicating pneumonia including staph or MRSA which are commonly associated with influenza. The high-grade fever of 104 at admission is improved. Did have some recurrent fever to 101 today. Improved this afternoon. We'll complete his course of Tamiflu and will transition to oral antibiotic therapy as he improves. We'll restart his Cortef 20 mg daily. Status: Acute (2) Pneumonia and influenza Status: Acute
[2016-12-10] MEDS: ATORVASTATIN 40 MG TAB PO SCH (21:57)
[2016-12-10] MEDS: MONTELUKAST 10 MG TAB PO SCH (21:57)
[2016-12-11] MEDS: HYDROcodone/APAP 10-325MG 1 EACH TAB PO PRN ×3 (00:49→15:56)
[2016-12-11] MEDS: PIPERACILLIN-TAZOBACTAM 3.375 GM in DEXTROSE/WATER 1 50ML.BAG IVPB SCH ×3 (01:35→16:05)
[2016-12-11] MEDS: LEVOTHYROXINE 50 MCG TAB PO SCH (06:07)
[2016-12-11 07:24] LABS: Glucose,Whole Blood 159 mg/dL (75-99)
[2016-12-11] MEDS: INSULIN LISPRO (humaLOG) 300 UNIT/3 ML VIAL SQ SCH ×4 (08:21→21:16)
[2016-12-11] MEDS: MAGNESIUM OXIDE 400 MG TAB PO SCH ×3 (08:23→21:15)
[2016-12-11] MEDS: GABAPENTIN 400 MG CAP PO SCH ×3 (08:24→21:15)
[2016-12-11] MEDS: ASPIRIN 325 MG TAB PO SCH (08:24)
[2016-12-11] MEDS: amLODIPine 5 MG TAB PO SCH (08:24)
[2016-12-11] MEDS: HYDROCORTISONE 20 MG TAB PO SCH (08:25)
[2016-12-11] MEDS: PANTOPRAZOLE 40 MG TABLET PO SCH (08:25)
[2016-12-11] MEDS: METOPROLOL TARTRATE 25 MG TAB PO SCH (08:25)
[2016-12-11] MEDS: OSELTAMIVIR 75 MG CAP PO SCH ×2 (08:25→21:15)
[2016-12-11] MEDS: SODIUM CHLORIDE 0.9% 1,000 ML IV SCH ×2 (08:30→21:16)
[2016-12-11] MEDS ORDERED: VANCOMYCIN TROUGH DUE 1 EACH MISC MISCELLANE ONE (11:00)
[2016-12-11 11:32] LABS: Basophils % (A) 1 %; CH 28.9; CHCM 30.3; Eosinophils % (A) 1 %; HDW 2.68; HGB 10.9 gm/dL (13.0-17.5); Hypochromasia Moderate; Luc # (Auto) 0.15; Luc % (Auto) 4; Lymphocytes # (A) 0.6 k/uL (1.0-4.8); Lymphocytes % (A) 15 %; MCHC 30.3 g/dL (31.0-37.0); MCV 95.7 fL (80.0-100.0); Mean Platelet Volume 9.2; Monocytes # (A) 0.2 k/uL (0-1.0); Monocytes % (A) 6 %; Neutrophils # (A) 2.9 k/uL (1.3-7.7); Neutrophils % (A) 75 %; RBC 3.76 m/uL (4.30-5.90); RDW 15.2 % (11.5-15.5); WBC 3.9 k/uL (3.8-10.6); WBC (Perox) 4.31
[2016-12-11 11:39] LABS: Glucose,Whole Blood 187 mg/dL (75-99)
[2016-12-11 11:47] LABS: Anion Gap 7 mmol/L; Blood Urea Nitrogen 14 mg/dL (9-20); Calcium 7.8 mg/dL (8.4-10.2); Carbon Dioxide 27 mmol/L (22-30); Chloride 106 mmol/L (98-107); Glucose 196 mg/dL (74-99); Non-African American GFR(MDRD) >60 (>60 ml/min/1.73 sqM); Potassium 4.3 mmol/L (3.5-5.1); Sodium 140 mmol/L (137-145)
[2016-12-11] MEDS ORDERED: METOPROLOL TARTRATE 12.5 MG TAB PO SCH (12:04)
--- NOTE | 2016-12-11 12:05 | P.PN ---
Subjective Principal diagnosis: Influenza B pneumonia Patient seen and examined. Patient is complaining about his heart rate and feeling dizzy in the morning. He states his breathing is better. He says his cough is improving. He has not had fevers overnight. Objective - Vital Signs Vital signs: Vital Signs Temp 97.6 F 12/11/16 07:00 Pulse 45 L 12/11/16 08:15 Resp 17 12/11/16 07:00 BP 137/72 12/11/16 08:15 Pulse Ox 91 L 12/11/16 08:15 Intake & Output 12/10/16 12/11/16 12/11/16 18:59 06:59 18:59 Intake Total 650 475 Output Total 400 Balance 650 475 -400 Intake: Intake, IV Titration 650 475 Amount Piperacillin-Tazobactam 3 50 50 .375 gm In Dextrose/Water 1 50ml.bag @ 12.5 mls/hr IVPB Q8HR [facility] Rx#: [id number] Sodium Chloride 0.9% 1, 600 300 000 ml @ 75 mls/hr IV . [id number] [facility] Rx#:[id number] Vancomycin 1,250 mg In 125 Sodium Chloride 0.9% 250 ml @ 125 mls/hr IVPB Q12HR@0000,1200 [facility] Rx#: [id number] Output: Urine 400 Other: Voiding Method Urinal Toilet Toilet Urinal # Voids 2 1 # Bowel Movements 1 1 - Exam Gen.: Patient is alert and oriented 3, no acute distress Cardiovascular: Regular rate and rhythm, S1/S2 Lungs: Diminished breath sounds Abdomen: Soft nontender nondistended positive bowel sounds Extremities: 2+ pitting edema - Labs CBC & Chem 7: 12/11/16 11:10 12/11/16 11:10 Labs: Abnormal Lab Results - Last 24 Hours (Table) 12/10/16 12/10/16 12/10/16 Range/Units 11:55 17:14 20:00 RBC (4.30-5.90) m/uL Hgb (13.0-17.5) gm/dL Hct (39.0-53.0) % MCHC (31.0-37.0) g/dL Plt Count (150-450) k/uL Lymphocytes # (1.0-4.8) k/uL Glucose (74-99) mg/dL POC Glucose (mg/dL) 208 H 234 H 248 H (75-99) mg/dL Calcium (8.4-10.2) mg/dL 12/11/16 12/11/16 12/11/16 Range/Units 07:00 11:10 11:10 RBC 3.76 L (4.30-5.90) m/uL Hgb 10.9 L (13.0-17.5) gm/dL Hct 36.0 L (39.0-53.0) % MCHC 30.3 L (31.0-37.0) g/dL Plt Count 101 L (150-450) k/uL Lymphocytes # 0.6 L (1.0-4.8) k/uL Glucose 196 H (74-99) mg/dL POC Glucose (mg/dL) 159 H (75-99) mg/dL Calcium 7.8 L (8.4-10.2) mg/dL 12/11/16 Range/Units 11:27 RBC (4.30-5.90) m/uL Hgb (13.0-17.5) gm/dL Hct (39.0-53.0) % MCHC (31.0-37.0) g/dL Plt Count (150-450) k/uL Lymphocytes # (1.0-4.8) k/uL Glucose (74-99) mg/dL POC Glucose (mg/dL) 187 H (75-99) mg/dL Calcium (8.4-10.2) mg/dL Microbiology - Last 24 Hours (Table) 12/07/16 14:55 Blood Culture - Preliminary Blood No Growth after 72 hours Assessment and Plan Plan: Influenza B pneumonia Sepsis Pyrexia Bibasilar atelectasis Pancytopenia, likely due to sepsis New onset atrial fibrillation, rate controlled Dehydration Diarrhea Systolic Heart Failure with EF 40-45% Decubitus ulcers 2 Possible obstructive sleep apnea Hypertensive urgency Recent hospitalization for pneumonia Diabetes mellitus type 2 History of NE Peripheral neuropathy Degenerative disc disease History of CVA Hypothyroidism O2 to maintain saturation greater than equal to 88% Continue Tamiflu Continue Motrin and Tylenol for fevers ID recs appreciated Continue antibiotics: Zosyn and vancomycin Bronchodilators Heparin drip for Afib - cardio recs appreciated Continue home medications Pain control GI and DVT prophylaxis Incentive spirometry and pulmonary hygiene Monitor labs closely Continue IV fluid hydration Negative Cdiff Antiemetics Continue supportive care Decrease Metoprolol due to bradycardia
[2016-12-11] MEDS: VANCOMYCIN 1,250 MG in SODIUM CHLORIDE 0.9% 250 ML IVPB SCH ×2 (13:01→23:27)
[2016-12-11] MEDS ORDERED: FUROSEMIDE 10 MG/ML 4 ML VIAL IV STA (13:51)
--- NOTE | 2016-12-11 15:11 | PN ---
Mr. Ribera is a 56-year-old male who presented with a progressive cough and dyspnea diagnosed with influenza. He was having frequent PACs and was started on beta gideon, but he had episode of bradycardia. He had an echocardiogram revealed a mildly to moderately impaired left ventricular systolic function, unchanged to the prior testing. He is still dyspneic and still has some cough, although the cough is better. He denies any palpitation. He is feeling dizzy when he changed position. He continues to be on aspirin once a day, Lipitor 40 mg daily, metoprolol tartrate that was decreased to 12.5 mg twice a day, Singulair 10 mg daily, and amlodipine 5 mg daily. PHYSICAL EXAMINATION: Blood pressure 132/70 with a heart rate in the 30s and 40s. LUNGS: A few crackles. HEART: Regular rate and rhythm. S1, S2, no S3, with systolic murmur. No diastolic murmur. ABDOMEN: Soft, nontender. EXTREMITIES: +1 edema bilaterally. BUN, creatinine 14 and 0.8. Potassium 10.9. IMPRESSION: 1. Lung infection with influenza infection. 2. Atrial arrhythmia, no evidence of atrial fibrillation. 3. Bradycardia induced by the beta gideon. 4. History of coronary artery disease, status post coronary artery bypass grafting and percutaneous revascularization. 5. History of cardiomyopathy. RECOMMENDATION: I will cut down the dose of his beta gideon. I will give him one dose of IV Lasix. Continue the rest of his medical regimen and depending on his progress, further recommendations will be made.
[2016-12-11 17:01] LABS: Glucose,Whole Blood 254 mg/dL (75-99)
[2016-12-11 20:05] LABS: Glucose,Whole Blood 205 mg/dL (75-99)
[2016-12-11] MEDS: MONTELUKAST 10 MG TAB PO SCH (21:15)
[2016-12-11] MEDS: ATORVASTATIN 40 MG TAB PO SCH (21:15)
--- NOTE | 2016-12-11 21:59 | P.PN ---
Subjective Principal diagnosis: Fever and shortness of breath Very pleasant 56-year-old male has had multiple recent hospitalizations and has underlying significant immunocompromise related to his underlying arthritis and therapy. His had A complicated recent medical troubles that included bout of pancreatitis which was severe. He also recently had difficulties with bouts of hypotension with metabolic derangement. Thought to be due to underlying medications that included allopurinol as well as his metformin. He has had a steroid responsive that was adequate. However now presents the emergency center was significant shortness of breath cough or sputum production. Was also having fever and chill and feeling very poorly. Evaluations reveal evidence of influenza B status. He was admitted due to his severe shortness of breath and markedly a normal chest x-ray. Tamiflu was started. Antibiotic therapy with Zosyn and vancomycin have been started due to concerns for gram-negative and even MRSA pneumonia. Is and knows that he in fever today. There however have severe low heart rate. His been seen by cardiology and medication changes occurred. Is complaining that his control is not as good as home, routinely takes his Blain every 4 hours. Objective - Vital Signs Vital signs: Vital Signs Temp 98.3 F 12/11/16 21:00 Pulse 62 12/11/16 21:00 Resp 16 12/11/16 21:00 BP 152/79 12/11/16 21:00 Pulse Ox 93 L 12/11/16 21:00 Intake & Output 12/11/16 12/11/16 12/12/16 06:59 18:59 06:59 Intake Total 475 Output Total 1650 800 Balance 475 -1650 -800 Intake: Intake, IV Titration 475 Amount Piperacillin-Tazobactam 3 50 .375 gm In Dextrose/Water 1 50ml.bag @ 12.5 mls/hr IVPB Q8HR [facility] Rx#: [id number] Sodium Chloride 0.9% 1, 300 000 ml @ 75 mls/hr IV . [id number] [facility] Rx#:[id number] Vancomycin 1,250 mg In 125 Sodium Chloride 0.9% 250 ml @ 125 mls/hr IVPB Q12HR@0000,1200 [facility] Rx#: [id number] Output: Urine 1650 800 Other: Voiding Method Toilet Toilet Urinal # Voids 1 # Bowel Movements 1 - Exam 56-year-old male who has complaints complains of generalized fatigue and fever that has improved HEENT: Anicteric conjunctiva are pink and moist nasal mucosa grossly intact without significant lesions, there is no thrush. Mucosa dry Neck: The neck is supple without significant lymphadenopathy or thyromegaly. Lungs: Good bilateral air entry with evidence of wheezing and crackles at the lung field especially at the bases.. There is no egophony or dullness. Heart: Irregular with an audible S1 and S2 no S3 soft S4 no murmur click or rub. Abdomen: Positive bowel sounds soft and nontender without palpable masses or organomegaly. There was no guarding or rebound. Extremities: The left upper extremity shows no acute difficulties, IV site is present, the right wrist reveals evidence of the prior surgical intervention. The extensive prior wound has healed. No evidence of any erythema or tenderness at that site. Bilateral lower extremity edema is occurring Skin: Area of ulceration to the buttocks as healed only has some residual mild skin discoloration with some erythema to the area where he had dressing in place. There is no epitrochlear or axillary lymphadenopathy. No other lymphadenopathy is noted. Neuro: Awake alert oriented to person place and time. There are no acute new gross focal sensory motor deficits. - Labs CBC & Chem 7: 12/11/16 11:10 12/11/16 11:10 Labs: Abnormal Lab Results - Last 24 Hours (Table) 12/11/16 12/11/16 12/11/16 Range/Units 07:00 11:10 11:10 RBC 3.76 L (4.30-5.90) m/uL Hgb 10.9 L (13.0-17.5) gm/dL Hct 36.0 L (39.0-53.0) % MCHC 30.3 L (31.0-37.0) g/dL Plt Count 101 L (150-450) k/uL Lymphocytes # 0.6 L (1.0-4.8) k/uL Glucose 196 H (74-99) mg/dL POC Glucose (mg/dL) 159 H (75-99) mg/dL Calcium 7.8 L (8.4-10.2) mg/dL 12/11/16 12/11/16 12/11/16 Range/Units 11:27 16:46 20:02 RBC (4.30-5.90) m/uL Hgb (13.0-17.5) gm/dL Hct (39.0-53.0) % MCHC (31.0-37.0) g/dL Plt Count (150-450) k/uL Lymphocytes # (1.0-4.8) k/uL Glucose (74-99) mg/dL POC Glucose (mg/dL) 187 H 254 H 205 H (75-99) mg/dL Calcium (8.4-10.2) mg/dL Microbiology - Last 24 Hours (Table) 12/07/16 14:55 Blood Culture - Preliminary Blood No Growth after 96 hours Laboratory Results WBC 3.9 k/uL (3.8-10.6) 12/11/16 11:10 RBC 3.76 m/uL (4.30-5.90) L 12/11/16 11:10 Hgb 10.9 gm/dL (13.0-17.5) L 12/11/16 11:10 Hct 36.0 % (39.0-53.0) L 12/11/16 11:10 MCV 95.7 fL (80.0-100.0) 12/11/16 11:10 MCH 29.0 pg (25.0-35.0) 12/11/16 11:10 MCHC 30.3 g/dL (31.0-37.0) L 12/11/16 11:10 RDW 15.2 % (11.5-15.5) 12/11/16 11:10 Plt Count 101 k/uL (150-450) L 12/11/16 11:10 Neutrophils % 75 % 12/11/16 11:10 Neutrophils % (Manual) 81.0 % 12/09/16 07:34 Band Neutrophils % 2.0 % 12/09/16 07:34 Lymphocytes % 15 % 12/11/16 11:10 Lymphocytes % (Manual) 14.0 % 12/09/16 07:34 Monocytes % 6 % 12/11/16 11:10 Monocytes % (Manual) 2.0 % 12/09/16 07:34 Eosinophils % 1 % 12/11/16 11:10 Basophils % 1 % 12/11/16 11:10 Basophils % (Manual) 1.0 % 12/09/16 07:34 Neutrophils # 2.9 k/uL (1.3-7.7) 12/11/16 11:10 Neutrophils # (Manual) 3.2 k/uL (1.3-7.7) 12/09/16 07:34 Lymphocytes # 0.6 k/uL (1.0-4.8) L 12/11/16 11:10 Lymphocytes # (Manual) 0.5 k/uL (1.0-4.8) L 12/09/16 07:34 Monocytes # 0.2 k/uL (0-1.0) 12/11/16 11:10 Monocytes # (Manual) 0.1 k/uL (0-1.0) 12/09/16 07:34 Eosinophils # 0.0 k/uL (0-0.7) 12/11/16 11:10 Basophils # 0.0 k/uL (0-0.2) 12/11/16 11:10 Basophils # (Manual) 0.0 k/uL (0-0.2) 12/09/16 07:34 Nucleated RBCs 0 /100 WBC (0-0) 12/09/16 07:34 Manual Slide Review Performed 12/08/16 05:33 Hypochromasia Moderate 12/11/16 11:10 PT 11.8 sec (9.0-12.0) 12/08/16 12:05 INR 1.2 (<1.1) 12/08/16 12:05 APTT 30.3 sec (22.0-30.0) H 12/09/16 07:34 Sodium 140 mmol/L (137-145) 12/11/16 11:10 Potassium 4.3 mmol/L (3.5-5.1) 12/11/16 11:10 Chloride 106 mmol/L (98-107) 12/11/16 11:10 Carbon Dioxide 27 mmol/L (22-30) 12/11/16 11:10 Anion Gap 7 mmol/L 12/11/16 11:10 BUN 14 mg/dL (9-20) 12/11/16 11:10 Creatinine 0.80 mg/dL (0.66-1.25) 12/11/16 11:10 Est GFR (MDRD) Af Amer >60 (>60 ml/min/1.73 sqM) 12/11/16 11:10 Est GFR (MDRD) Non-Af >60 (>60 ml/min/1.73 sqM) 12/11/16 11:10 Glucose 196 mg/dL (74-99) H 12/11/16 11:10 POC Glucose (mg/dL) 205 mg/dL (75-99) H 12/11/16 20:02 POC Glu Obgyn Specialist Wanda Villalta 12/11/16 20:[address] Glu mg/dL 143 mg/dL 12/07/16 09:46 Hemoglobin A1c 6.6 % (4.2-6.1) H 12/07/16 09:46 Plasma Lactic Acid Freddy 1.0 mmol/L (0.7-2.0) 12/07/16 14:55 Calcium 7.8 mg/dL (8.4-10.2) L 12/11/16 11:10 Phosphorus 5.4 mg/dL (2.5-4.5) H 12/08/16 05:33 Magnesium 2.2 mg/dL (1.6-2.3) 12/08/16 05:33 Total Bilirubin 0.9 mg/dL (0.2-1.3) 12/07/16 09:46 AST 50 U/L (17-59) 12/07/16 09:46 ALT 44 U/L (21-72) 12/07/16 09:46 Alkaline Phosphatase 104 U/L (38-126) 12/07/16 09:46 Total Creatine Kinase 37 U/L (55-170) L 12/07/16 09:46 CK-MB (CK-2) 0.7 ng/mL (0.0-2.4) 12/07/16 09:46 CK-MB (CK-2) Rel Index 1.9 12/07/16 09:46 Troponin I 0.038 ng/mL (0.000-0.034) H* 12/07/16 09:46 NT-Pro-B Natriuret Pep 3290 pg/mL 12/07/16 09:46 Total Protein 6.8 g/dL (6.3-8.2) 12/07/16 09:46 Albumin 3.8 g/dL (3.5-5.0) 12/07/16 09:46 TSH 1.440 mIU/L (0.465-4.680) 12/07/16 09:46 Urine Color Yellow 12/07/16 09:50 Urine Appearance Clear (Clear) 12/07/16 09:50 Urine pH 7.0 (5.0-8.0) 12/07/16 09:50 Ur Specific [place] 1.011 (1.001-1.035) 12/07/16 09:50 Urine Protein Trace (Negative) H 12/07/16 09:50 Urine Glucose (UA) 3+ (Negative) H 12/07/16 09:50 Urine Ketones Negative (Negative) 12/07/16 09:50 Urine Blood Negative (Negative) 12/07/16 09:50 Urine Nitrite Negative (Negative) 12/07/16 09:50 Urine Bilirubin Negative (Negative) 12/07/16 09:50 Urine Urobilinogen <2.0 mg/dL (<2.0) 12/07/16 09:50 Ur Leukocyte Esterase Negative (Negative) 12/07/16 09:50 Vancomycin Trough 15.4 ug/mL 12/11/16 11:10 C. difficile (EIA) Intrp Negative (Negative) 12/10/16 20:43 Influenza Type A RNA Not Detected (Not Detectd) 12/08/16 10:47 Influenza Type B (PCR) Detected (Not Detectd) H 12/08/16 10:47 Microbiology 12/07/16 14:55 Blood Blood Culture - Preliminary No Growth after 96 hours 12/07/16 09:46 Blood Blood Culture - Preliminary No Growth after 96 hours 12/07/16 09:50 Urine,Voided Urine Culture - Final Assessment and Plan (1) Influenza due to influenza virus, type B Narrative/Plan: 56-year-old male that has a significant recent past medical history associated with multiple admissions of included hypotension and lactic acidosis. Thought to be medication induced from allopurinol as well as metformin. His had bouts of diarrhea without evidence of gastrointestinal bleed or C. diff. Patient now presents with fever ,generalized malaise off nasal congestion and generalized malaise, was found evidence of influenza B positive status. Tamiflu was begun. Given his history of multiple recent infections antibiotic therapy with piperacillin tazobactam and vancomycin were begun for treatment of potential complicating pneumonia including staph or MRSA which are commonly associated with influenza. The high-grade fever of 104 at admission is improved. No significant fevers today. We'll complete his course of Tamiflu and will transition to oral antibiotic therapy as he improves. Cortef was restarted. He is feeling slightly better. Does relate that his pain is not as well-controlled at home and we'll alter his pain medicine to every 4 hours as per his protocol at home is having extensive lower extremity edema. Does not like the white compression stockings. We utilized along John wrap from the foot to the knee bilaterally. Status: Acute (2) Pneumonia and influenza Status: Acute
[2016-12-12] MEDS: HYDROcodone/APAP 10-325MG 1 EACH TAB PO PRN ×6 (00:03→23:39)
[2016-12-12] MEDS: PIPERACILLIN-TAZOBACTAM 3.375 GM in DEXTROSE/WATER 1 50ML.BAG IVPB SCH ×3 (02:33→16:48)
[2016-12-12] MEDS: LEVOTHYROXINE 50 MCG TAB PO SCH (06:07)
[2016-12-12 07:44] LABS: Glucose,Whole Blood 110 mg/dL (75-99)
[2016-12-12 08:08] LABS: Basophils % (A) 1 %; CH 28.6; CHCM 30.4; Eosinophils % (A) 0 %; HCT 37.2 % (39.0-53.0); HDW 2.76; HGB 11.4 gm/dL (13.0-17.5); Hypochromasia Moderate; Luc # (Auto) 0.17; Luc % (Auto) 4; Lymphocytes # (A) 1.1 k/uL (1.0-4.8); Lymphocytes % (A) 26 %; MCH 28.9 pg (25.0-35.0); MCHC 30.6 g/dL (31.0-37.0); MCV 94.4 fL (80.0-100.0); Mean Platelet Volume 8.4; Monocytes # (A) 0.3 k/uL (0-1.0); Monocytes % (A) 8 %; Neutrophils # (A) 2.4 k/uL (1.3-7.7); Neutrophils % (A) 60 %; RBC 3.94 m/uL (4.30-5.90); WBC (Perox) 4.05
[2016-12-12 08:16] LABS: Anion Gap 11 mmol/L; Blood Urea Nitrogen 11 mg/dL (9-20); Calcium 8.1 mg/dL (8.4-10.2); Carbon Dioxide 33 mmol/L (22-30); Chloride 99 mmol/L (98-107); Glucose 100 mg/dL (74-99); Non-African American GFR(MDRD) >60 (>60 ml/min/1.73 sqM); Potassium 3.4 mmol/L (3.5-5.1); Sodium 143 mmol/L (137-145)
[2016-12-12 09:02] LABS: Manual Review Performed
[2016-12-12] MEDS: GABAPENTIN 400 MG CAP PO SCH ×3 (09:10→21:06)
[2016-12-12] MEDS: MAGNESIUM OXIDE 400 MG TAB PO SCH ×3 (09:11→21:06)
[2016-12-12] MEDS: HYDROCORTISONE 20 MG TAB PO SCH (09:11)
[2016-12-12] MEDS: PANTOPRAZOLE 40 MG TABLET PO SCH (09:11)
[2016-12-12] MEDS: OSELTAMIVIR 75 MG CAP PO SCH ×2 (09:11→21:05)
[2016-12-12] MEDS: METOPROLOL TARTRATE 12.5 MG TAB PO SCH ×2 (09:12→12:14)
[2016-12-12] MEDS: INSULIN LISPRO (humaLOG) 300 UNIT/3 ML VIAL SQ SCH ×4 (09:12→21:06)
[2016-12-12] MEDS: ASPIRIN 325 MG TAB PO SCH (09:12)
[2016-12-12] MEDS: amLODIPine 5 MG TAB PO SCH (09:12)
[2016-12-12] MEDS: SODIUM CHLORIDE 0.9% 1,000 ML IV SCH (09:20)
[2016-12-12 11:15] LABS: Glucose,Whole Blood 238 mg/dL (75-99)
--- NOTE | 2016-12-12 11:47 | P.PN ---
Subjective Principal diagnosis: Influenza B Patient seen and examined. Patient states he is feeling much better today. He denies any cough, fevers, chills. He states he has not been out of bed since he 's been here. At home he does ambulate with a walker. Objective - Vital Signs Vital signs: Vital Signs Temp 97.7 F 12/12/16 07:00 Pulse 53 L 12/12/16 07:00 Resp 18 12/12/16 07:00 BP 125/68 12/12/16 07:00 Pulse Ox 93 L 12/12/16 07:00 Intake & Output 12/11/16 12/12/16 12/12/16 18:59 06:59 18:59 Output Total 1650 1900 Balance -1650 -1900 Output: Urine 1650 1900 Other: Voiding Method Toilet Toilet Toilet - Exam Gen.: Patient is alert and oriented 3, no acute distress Cardiovascular: Regular rate and rhythm, S1/S2 Lungs: Diminished breath sounds Abdomen: Soft nontender nondistended positive bowel sounds Extremities: 2+ pitting edema - Labs CBC & Chem 7: 12/12/16 07:00 12/12/16 07:00 Labs: Abnormal Lab Results - Last 24 Hours (Table) 12/11/16 12/11/16 12/11/16 Range/Units 11:10 16:46 20:02 RBC (4.30-5.90) m/uL Hgb (13.0-17.5) gm/dL Hct (39.0-53.0) % MCHC (31.0-37.0) g/dL Plt Count (150-450) k/uL Potassium (3.5-5.1) mmol/L Carbon Dioxide (22-30) mmol/L Glucose 196 H (74-99) mg/dL POC Glucose (mg/dL) 254 H 205 H (75-99) mg/dL Calcium 7.8 L (8.4-10.2) mg/dL 12/12/16 12/12/16 12/12/16 Range/Units 07:00 07:00 07:39 RBC 3.94 L (4.30-5.90) m/uL Hgb 11.4 L (13.0-17.5) gm/dL Hct 37.2 L (39.0-53.0) % MCHC 30.6 L (31.0-37.0) g/dL Plt Count 133 L (150-450) k/uL Potassium 3.4 L (3.5-5.1) mmol/L Carbon Dioxide 33 H (22-30) mmol/L Glucose 100 H (74-99) mg/dL POC Glucose (mg/dL) 110 H (75-99) mg/dL Calcium 8.1 L (8.4-10.2) mg/dL 12/12/16 Range/Units 11:13 RBC (4.30-5.90) m/uL Hgb (13.0-17.5) gm/dL Hct (39.0-53.0) % MCHC (31.0-37.0) g/dL Plt Count (150-450) k/uL Potassium (3.5-5.1) mmol/L Carbon Dioxide (22-30) mmol/L Glucose (74-99) mg/dL POC Glucose (mg/dL) 238 H (75-99) mg/dL Calcium (8.4-10.2) mg/dL Microbiology - Last 24 Hours (Table) 12/07/16 14:55 Blood Culture - Preliminary Blood No Growth after 96 hours Assessment and Plan Plan: Influenza B pneumonia Sepsis Pyrexia Bibasilar atelectasis Pancytopenia, likely due to sepsis New onset atrial fibrillation, rate controlled Dehydration Diarrhea Systolic Heart Failure with EF 40-45% Decubitus ulcers 2 Possible obstructive sleep apnea Hypertensive urgency Recent hospitalization for pneumonia Diabetes mellitus type 2 History of PA Peripheral neuropathy Degenerative disc disease History of CVA Hypothyroidism O2 to maintain saturation greater than equal to 88% Continue Tamiflu Continue Motrin and Tylenol for fevers ID recs appreciated Continue antibiotics: Zosyn and vancomycin per ID Bronchodilators Heparin drip for Afib - cardio recs appreciated Continue home medications Pain control GI and DVT prophylaxis Incentive spirometry and pulmonary hygiene Monitor labs closely Negative Cdiff Antiemetics Continue supportive care Decrease Metoprolol due to bradycardia Consult PT and OT, patient encouraged to get out of bed today Ok to DC from pulmonary standpoint
[2016-12-12] MEDS ORDERED: POTASSIUM CHLORIDE ER 20 MEQ TAB.ER PO STA (12:13)
--- NOTE | 2016-12-12 12:40 | PN ---
Mr. Ribera is a 56-year-old male who presented with pneumonia and influenza infection. He is feeling better this morning. His breathing is better. He is denying any chest pain. He denies any dizziness, palpitation. He continues to be in sinus mechanism. He continues to be at this time on aspirin once a day, Lipitor 40 mg daily, gabapentin, metoprolol tartrate 12.5 mg once a day, Singulair, Protonix, amlodipine 5 mg daily. PHYSICAL EXAMINATION: Blood pressure 125/60 with a heart rate in the 60s. LUNGS: Clear. HEART: Regular rate and rhythm. S1, S2, no S3, no rub. ABDOMEN: Soft, nontender. EXTREMITIES: No edema. Lab data revealed BUN and creatinine of 11 and 0.7. Potassium 3.4. Hemoglobin of 11.4. IMPRESSION: 1. Pneumonia with influenza infection. 2. Atrial arrhythmia but no evidence of atrial fibrillation. 3. History of coronary artery disease, status post coronary artery bypass grafting and percutaneous revascularization. RECOMMENDATION: Patient edema has resolved after the dose of IV Lasix he received yesterday. I will replace his potassium. Will continue on the low dose beta gideon because of the episode of bradycardia he had. Depending on his progress, further recommendation will be made.
[2016-12-12] MEDS: VANCOMYCIN 1,250 MG in SODIUM CHLORIDE 0.9% 250 ML IVPB SCH ×2 (12:52→23:24)
[2016-12-12 16:46] LABS: Glucose,Whole Blood 232 mg/dL (75-99)
--- NOTE | 2016-12-12 16:49 | P.PN ---
Subjective Patient is a 56-year-old male with multiple recent hospitalizations admitted with complaints of fever and shortness of breath and found to have evidence of influenza B and pneumonia. Patient did have an episode of atrial arrhythmia during this hospitalization but is currently in sinus rhythm with heart rate and low 50s. Patient is being followed by Dr. Hardin from infectious disease service, Dr. Palumbo from pulmonary service, and cardiology service. Upon evaluation, patient is feeling better. Patient reports some sinus drainage but reports he is breathing better. Denies lightheadedness, chills, fevers, nausea, vomiting, chest pain, or abdominal pain. Patient is urinating without difficulty. Patient reports one episode of diarrhea this morning and one last night. C. difficile negative. Patient remains afebrile. Objective - Vital Signs Vital signs: Vital Signs Temp 98.2 F 12/12/16 15:00 Pulse 48 L 12/12/16 15:00 Resp 18 12/12/16 15:00 BP 128/65 12/12/16 15:00 Pulse Ox 94 L 12/12/16 15:00 Intake & Output 12/11/16 12/12/16 12/12/16 18:59 06:59 18:59 Intake Total 300 Output Total 1650 1900 Balance -1650 -1900 300 Intake: Intake, IV Titration 300 Amount Piperacillin-Tazobactam 3 50 .375 gm In Dextrose/Water 1 50ml.bag @ 12.5 mls/hr IVPB Q8HR [facility] Rx#: [id number] Vancomycin 1,250 mg In 250 Sodium Chloride 0.9% 250 ml @ 125 mls/hr IVPB Q12HR@0000,1200 [facility] Rx#: [id number] Output: Urine 1650 1900 Other: Voiding Method Toilet Toilet Toilet # Voids 1 - Exam GENERAL: Pt awake and alert, lying in bed, in no acute distress. HEAD: Atraumatic, normocephalic. EYES: Pupils equal and round. Sclera anicteric, conjunctiva are normal. ENT:Moist mucous membranes. NECK:Supple without lymphadenopathy or JVD. LUNGS: Breath sounds with scattered rhonchi throughout lung roldan. HEART: Heart S1, S2, no S3 or S4. Regular irregular rate and rhythm. No murmurs, rubs or gallops. ABDOMEN: Soft, obese, nontender, nondistended, normoactive bowel sounds. No guarding, no rebound. EXTREMITIES: Palpable peripheral pulses. Trace edema to bilateral ankles. No calf tenderness. NEUROLOGICAL: Pt oriented x 3. No focal deficits. Strength and sensation grossly intact. PSYCH: Cooperative. SKIN: Warm, dry. - Labs CBC & Chem 7: 12/12/16 07:00 12/12/16 07:00 Labs: Abnormal Lab Results - Last 24 Hours (Table) 12/11/16 12/11/16 12/12/16 Range/Units 16:46 20:02 07:00 RBC 3.94 L (4.30-5.90) m/uL Hgb 11.4 L (13.0-17.5) gm/dL Hct 37.2 L (39.0-53.0) % MCHC 30.6 L (31.0-37.0) g/dL Plt Count 133 L (150-450) k/uL Potassium (3.5-5.1) mmol/L Carbon Dioxide (22-30) mmol/L Glucose (74-99) mg/dL POC Glucose (mg/dL) 254 H 205 H (75-99) mg/dL Calcium (8.4-10.2) mg/dL 12/12/16 12/12/16 12/12/16 Range/Units 07:00 07:39 11:13 RBC (4.30-5.90) m/uL Hgb (13.0-17.5) gm/dL Hct (39.0-53.0) % MCHC (31.0-37.0) g/dL Plt Count (150-450) k/uL Potassium 3.4 L (3.5-5.1) mmol/L Carbon Dioxide 33 H (22-30) mmol/L Glucose 100 H (74-99) mg/dL POC Glucose (mg/dL) 110 H 238 H (75-99) mg/dL Calcium 8.1 L (8.4-10.2) mg/dL Microbiology - Last 24 Hours (Table) 12/07/16 14:55 Blood Culture - Preliminary Blood No Growth after 96 hours Assessment and Plan Plan: Impression: 1. Sepsis from Influenza B pneumonia. 2. Anemia 3. Hypokalemia. 4. Atrial arrhythmia with no evidence of atrial fibrillation. 5. History of coronary artery disease, status post coronary artery bypass grafting and percutaneous revascularization. 6. Systolic heart failure with EF 40-45%. 7. Peripheral neuropathy felt to be combination of degenerative disc disease and diabetes.. 8. Severe degenerative disc disease. 9. Possible obstructive sleep apnea. 10. History of pancreatic mass. 11. History of adrenal adenoma. 12. Pressure ulcer 2 to sacrum, present on admission. Plan: 1. Continue to monitor patient. Continue current medications. Replace potassium per protocol. Continue IV antibiotics per infectious disease recommendations. Continue local wound care to sacrum. Continue supportive treatment and pain management. Continue GI and DVT prophylaxis. Continue to follow with consultants. Repeat CBC and BMP in a.m. The above impression and plan have been discussed and directed by Dr. Romero. Jewell ANTHONY acting as scribe for Heather.
[2016-12-12 20:06] LABS: Glucose,Whole Blood 318 mg/dL (75-99)
[2016-12-12] MEDS: ATORVASTATIN 40 MG TAB PO SCH (21:05)
[2016-12-12] MEDS: MONTELUKAST 10 MG TAB PO SCH (21:05)
--- NOTE | 2016-12-12 22:26 | P.PN ---
Subjective Principal diagnosis: Fever and shortness of breath Very pleasant 56-year-old male has had multiple recent hospitalizations and has underlying significant immunocompromise related to his underlying arthritis and therapy. His had A complicated recent medical troubles that included bout of pancreatitis which was severe. He also recently had difficulties with bouts of hypotension with metabolic derangement. Thought to be due to underlying medications that included allopurinol as well as his metformin. He has had a steroid responsive that was adequate. However now presents the emergency center was significant shortness of breath cough or sputum production. Was also having fever and chill and feeling very poorly. Evaluations reveal evidence of influenza B status. He was admitted due to his severe shortness of breath and markedly a normal chest x-ray. Tamiflu was started. Antibiotic therapy with Zosyn and vancomycin have been started due to concerns for gram-negative and even MRSA pneumonia. Is and knows that he in fever today. There however have severe low heart rate. His been seen by cardiology and medication changes occurred. Pain control is better. No further fevers. Objective - Vital Signs Vital signs: Vital Signs Temp 98.2 F 12/12/16 15:00 Pulse 48 L 12/12/16 15:00 Resp 18 12/12/16 15:00 BP 128/65 12/12/16 15:00 Pulse Ox 94 L 12/12/16 15:00 Intake & Output 12/12/16 12/12/16 12/13/16 06:59 18:59 06:59 Intake Total 300 Output Total 1900 Balance -1900 300 Intake: Intake, IV Titration 300 Amount Piperacillin-Tazobactam 3 50 .375 gm In Dextrose/Water 1 50ml.bag @ 12.5 mls/hr IVPB Q8HR [facility] Rx#: [id number] Vancomycin 1,250 mg In 250 Sodium Chloride 0.9% 250 ml @ 125 mls/hr IVPB Q12HR@0000,1200 [facility] Rx#: [id number] Output: Urine 1900 Other: Voiding Method Toilet Toilet # Voids 1 - Exam 56-year-old male who has complaints complains of generalized fatigue and fever that has improved HEENT: Anicteric conjunctiva are pink and moist nasal mucosa grossly intact without significant lesions, there is no thrush. Mucosa dry Neck: The neck is supple without significant lymphadenopathy or thyromegaly. Lungs: Good bilateral air entry with evidence of wheezing and crackles at the lung field especially at the bases.. There is no egophony or dullness. Heart: Irregular with an audible S1 and S2 no S3 soft S4 no murmur click or rub. Abdomen: Positive bowel sounds soft and nontender without palpable masses or organomegaly. There was no guarding or rebound. Extremities: The left upper extremity shows no acute difficulties, IV site is present, the right wrist reveals evidence of the prior surgical intervention. The extensive prior wound has healed. No evidence of any erythema or tenderness at that site. Bilateral lower extremity edema is occurring Skin: Area of ulceration to the buttocks as healed only has some residual mild skin discoloration with some erythema to the area where he had dressing in place. There is no epitrochlear or axillary lymphadenopathy. No other lymphadenopathy is noted. Neuro: Awake alert oriented to person place and time. There are no acute new gross focal sensory motor deficits. - Labs CBC & Chem 7: 12/12/16 07:00 12/12/16 07:00 Labs: Abnormal Lab Results - Last 24 Hours (Table) 12/12/16 12/12/16 12/12/16 Range/Units 07:00 07:00 07:39 RBC 3.94 L (4.30-5.90) m/uL Hgb 11.4 L (13.0-17.5) gm/dL Hct 37.2 L (39.0-53.0) % MCHC 30.6 L (31.0-37.0) g/dL Plt Count 133 L (150-450) k/uL Potassium 3.4 L (3.5-5.1) mmol/L Carbon Dioxide 33 H (22-30) mmol/L Glucose 100 H (74-99) mg/dL POC Glucose (mg/dL) 110 H (75-99) mg/dL Calcium 8.1 L (8.4-10.2) mg/dL 12/12/16 12/12/16 12/12/16 Range/Units 11:13 16:34 20:04 RBC (4.30-5.90) m/uL Hgb (13.0-17.5) gm/dL Hct (39.0-53.0) % MCHC (31.0-37.0) g/dL Plt Count (150-450) k/uL Potassium (3.5-5.1) mmol/L Carbon Dioxide (22-30) mmol/L Glucose (74-99) mg/dL POC Glucose (mg/dL) 238 H 232 H 318 H (75-99) mg/dL Calcium (8.4-10.2) mg/dL Microbiology - Last 24 Hours (Table) 12/07/16 14:55 Blood Culture - Preliminary Blood No Growth after 120 hours Laboratory Results WBC 4.0 k/uL (3.8-10.6) 12/12/16 07:00 RBC 3.94 m/uL (4.30-5.90) L 12/12/16 07:00 Hgb 11.4 gm/dL (13.0-17.5) L 12/12/16 07:00 Hct 37.2 % (39.0-53.0) L 12/12/16 07:00 MCV 94.4 fL (80.0-100.0) 12/12/16 07:00 MCH 28.9 pg (25.0-35.0) 12/12/16 07:00 MCHC 30.6 g/dL (31.0-37.0) L 12/12/16 07:00 RDW 15.0 % (11.5-15.5) 12/12/16 07:00 Plt Count 133 k/uL (150-450) L 12/12/16 07:00 Neutrophils % 60 % 12/12/16 07:00 Neutrophils % (Manual) 81.0 % 12/09/16 07:34 Band Neutrophils % 2.0 % 12/09/16 07:34 Lymphocytes % 26 % 12/12/16 07:00 Lymphocytes % (Manual) 14.0 % 12/09/16 07:34 Monocytes % 8 % 12/12/16 07:00 Monocytes % (Manual) 2.0 % 12/09/16 07:34 Eosinophils % 0 % 12/12/16 07:00 Basophils % 1 % 12/12/16 07:00 Basophils % (Manual) 1.0 % 12/09/16 07:34 Neutrophils # 2.4 k/uL (1.3-7.7) 12/12/16 07:00 Neutrophils # (Manual) 3.2 k/uL (1.3-7.7) 12/09/16 07:34 Lymphocytes # 1.1 k/uL (1.0-4.8) 12/12/16 07:00 Lymphocytes # (Manual) 0.5 k/uL (1.0-4.8) L 12/09/16 07:34 Monocytes # 0.3 k/uL (0-1.0) 12/12/16 07:00 Monocytes # (Manual) 0.1 k/uL (0-1.0) 12/09/16 07:34 Eosinophils # 0.0 k/uL (0-0.7) 12/12/16 07:00 Basophils # 0.0 k/uL (0-0.2) 12/12/16 07:00 Basophils # (Manual) 0.0 k/uL (0-0.2) 12/09/16 07:34 Nucleated RBCs 0 /100 WBC (0-0) 12/09/16 07:34 Manual Slide Review Performed 12/12/16 07:00 Hypochromasia Moderate 12/12/16 07:00 Poikilocytosis (manual Present 12/12/16 07:00 PT 11.8 sec (9.0-12.0) 12/08/16 12:05 INR 1.2 (<1.1) 12/08/16 12:05 APTT 30.3 sec (22.0-30.0) H 12/09/16 07:34 Sodium 143 mmol/L (137-145) 12/12/16 07:00 Potassium 3.4 mmol/L (3.5-5.1) L 12/12/16 07:00 Chloride 99 mmol/L (98-107) 12/12/16 07:00 Carbon Dioxide 33 mmol/L (22-30) H 12/12/16 07:00 Anion Gap 11 mmol/L 12/12/16 07:00 BUN 11 mg/dL (9-20) 12/12/16 07:00 Creatinine 0.77 mg/dL (0.66-1.25) 12/12/16 07:00 Est GFR (MDRD) Af Amer >60 (>60 ml/min/1.73 sqM) 12/12/16 07:00 Est GFR (MDRD) Non-Af >60 (>60 ml/min/1.73 sqM) 12/12/16 07:00 Glucose 100 mg/dL (74-99) H 12/12/16 07:00 POC Glucose (mg/dL) 318 mg/dL (75-99) H 12/12/16 20:04 POC Glu Vehicle Modification Technician ID Wanda Perez 12/12/16 20:[address] Glu mg/dL 143 mg/dL 12/07/16 09:46 Hemoglobin A1c 6.6 % (4.2-6.1) H 12/07/16 09:46 Plasma Lactic Acid Freddy 1.0 mmol/L (0.7-2.0) 12/07/16 14:55 Calcium 8.1 mg/dL (8.4-10.2) L 12/12/16 07:00 Phosphorus 5.4 mg/dL (2.5-4.5) H 12/08/16 05:33 Magnesium 2.2 mg/dL (1.6-2.3) 12/08/16 05:33 Total Bilirubin 0.9 mg/dL (0.2-1.3) 12/07/16 09:46 AST 50 U/L (17-59) 12/07/16 09:46 ALT 44 U/L (21-72) 12/07/16 09:46 Alkaline Phosphatase 104 U/L (38-126) 12/07/16 09:46 Total Creatine Kinase 37 U/L (55-170) L 12/07/16 09:46 CK-MB (CK-2) 0.7 ng/mL (0.0-2.4) 12/07/16 09:46 CK-MB (CK-2) Rel Index 1.9 12/07/16 09:46 Troponin I 0.038 ng/mL (0.000-0.034) H* 12/07/16 09:46 NT-Pro-B Natriuret Pep 3290 pg/mL 12/07/16 09:46 Total Protein 6.8 g/dL (6.3-8.2) 12/07/16 09:46 Albumin 3.8 g/dL (3.5-5.0) 12/07/16 09:46 TSH 1.440 mIU/L (0.465-4.680) 12/07/16 09:46 Urine Color Yellow 12/07/16 09:50 Urine Appearance Clear (Clear) 12/07/16 09:50 Urine pH 7.0 (5.0-8.0) 12/07/16 09:50 Ur Specific [place] 1.011 (1.001-1.035) 12/07/16 09:50 Urine Protein Trace (Negative) H 12/07/16 09:50 Urine Glucose (UA) 3+ (Negative) H 12/07/16 09:50 Urine Ketones Negative (Negative) 12/07/16 09:50 Urine Blood Negative (Negative) 12/07/16 09:50 Urine Nitrite Negative (Negative) 12/07/16 09:50 Urine Bilirubin Negative (Negative) 12/07/16 09:50 Urine Urobilinogen <2.0 mg/dL (<2.0) 12/07/16 09:50 Ur Leukocyte Esterase Negative (Negative) 12/07/16 09:50 Vancomycin Trough 15.4 ug/mL 12/11/16 11:10 C. difficile (EIA) Intrp Negative (Negative) 12/10/16 20:43 Influenza Type A RNA Not Detected (Not Detectd) 12/08/16 10:47 Influenza Type B (PCR) Detected (Not Detectd) H 12/08/16 10:47 Microbiology 12/07/16 14:55 Blood Blood Culture - Preliminary No Growth after 120 hours 12/07/16 09:46 Blood Blood Culture - Preliminary No Growth after 120 hours 12/07/16 09:50 Urine,Voided Urine Culture - Final Assessment and Plan (1) Influenza due to influenza virus, type B Narrative/Plan: 56-year-old male that has a significant recent past medical history associated with multiple admissions of included hypotension and lactic acidosis. Thought to be medication induced from allopurinol as well as metformin. His had bouts of diarrhea without evidence of gastrointestinal bleed or C. diff. Patient now presents with fever ,generalized malaise off nasal congestion and generalized malaise, was found evidence of influenza B positive status. Tamiflu was begun. Given his history of multiple recent infections antibiotic therapy with piperacillin tazobactam and vancomycin were begun for treatment of potential complicating pneumonia including staph or MRSA which are commonly associated with influenza. The high-grade fever of 104 at admission is improved. No significant fevers today. We'll complete his course of Tamiflu and will transition to oral antibiotic therapy as he improves. Cortef was restarted. He is feeling slightly better. Does relate that his pain is not as well-controlled at home and we'll alter his pain medicine to every 4 hours as per his protocol at home is having extensive lower extremity edema. Does not like the white compression stockings. We utilized along John wrap from the foot to the knee bilaterally which has allowed great improvement of the edema and comfort. Likely discharge if remains afebrile. Status: Acute (2) Pneumonia and influenza Status: Acute
[2016-12-13] MEDS: PIPERACILLIN-TAZOBACTAM 3.375 GM in DEXTROSE/WATER 1 50ML.BAG IVPB SCH ×3 (02:05→17:24)
[2016-12-13] MEDS: SODIUM CHLORIDE 0.9% 1,000 ML IV SCH ×2 (03:52→12:23)
[2016-12-13] MEDS: HYDROcodone/APAP 10-325MG 1 EACH TAB PO PRN ×3 (05:27→14:47)
[2016-12-13] MEDS: LEVOTHYROXINE 50 MCG TAB PO SCH (06:22)
[2016-12-13 07:54] LABS: Glucose,Whole Blood 155 mg/dL (75-99)
[2016-12-13] MEDS: INSULIN LISPRO (humaLOG) 300 UNIT/3 ML VIAL SQ SCH ×2 (08:04→12:25)
[2016-12-13] MEDS: HYDROCORTISONE 20 MG TAB PO SCH (08:06)
[2016-12-13] MEDS: GABAPENTIN 400 MG CAP PO SCH ×2 (08:06→17:24)
[2016-12-13] MEDS: METOPROLOL TARTRATE 12.5 MG TAB PO SCH (08:07)
[2016-12-13] MEDS: PANTOPRAZOLE 40 MG TABLET PO SCH (08:07)
[2016-12-13] MEDS: amLODIPine 5 MG TAB PO SCH (08:07)
[2016-12-13] MEDS: MAGNESIUM OXIDE 400 MG TAB PO SCH ×2 (08:07→17:24)
[2016-12-13 08:39] LABS: Aty Lym Flag Moderate; CH 28.4; CHCM 30.5; HCT 35.1 % (39.0-53.0); HDW 2.74; HGB 10.9 gm/dL (13.0-17.5); Hypochromasia Moderate; MCV 93.6 fL (80.0-100.0); Mean Platelet Volume 8.4; RBC 3.75 m/uL (4.30-5.90); WBC 2.8 k/uL (3.8-10.6); WBC (Perox) 3.03
[2016-12-13 08:57] VITALS: RESP 18
[2016-12-13 09:00] LABS: Anion Gap 9 mmol/L; Blood Urea Nitrogen 11 mg/dL (9-20); Carbon Dioxide 36 mmol/L (22-30); Chloride 99 mmol/L (98-107); Glucose 163 mg/dL (74-99); Non-African American GFR(MDRD) >60 (>60 ml/min/1.73 sqM); Potassium 3.9 mmol/L (3.5-5.1); Sodium 144 mmol/L (137-145)
[2016-12-13] MEDS ORDERED: ASPIRIN 81 MG CHEW PO SCH (09:00)
[2016-12-13 10:30] LABS: Add Differential Manual Differential
[2016-12-13 10:33] LABS: Nucleated Red Blood Cells 0 /100 WBC (0-0); Total Cells Counted 100
[2016-12-13 11:53] LABS: Glucose,Whole Blood 229 mg/dL (75-99)
[2016-12-13] MEDS: VANCOMYCIN 1,250 MG in SODIUM CHLORIDE 0.9% 250 ML IVPB SCH (12:30)
[2016-12-13 15:10] VITALS: BP 175/96; PULSE 62; TEMP 98.3
--- NOTE | 2016-12-13 15:15 | PN ---
Mr. Ribera is a 56-year-old male with known history of coronary artery disease, status post coronary artery bypass grafting and percutaneous revascularization, who presented with pneumonia and influenza infection. He is feeling well today. His breathing is stable. He is denying any chest pain. He denies any dizziness or palpitation. He has no significant arrhythmia. He continues to be on aspirin once a day, Lipitor 40 mg daily, metoprolol tartrate 12.5 mg daily, amlodipine 5 mg daily. PHYSICAL EXAMINATION: Blood pressure 136/70 with a heart in the 50s. LUNGS: No wheezes. HEART: Regular rate and rhythm. S1, S2, no S3, with systolic murmur. ABDOMEN: Soft, nontender. EXTREMITIES: No significant edema. John wrapping in place. Lab data revealed hemoglobin of 10.9, BUN and creatinine of 11 and 0.82. IMPRESSION: 1. Pneumonia with influenza infection. 2. Immunocompromised status. 3. History of coronary artery disease. 4. Atrial arrhythmia with no evidence of atrial fibrillation. 5. Hyperlipidemia. RECOMMENDATION: From the cardiac standpoint, he should be able to be discharged home soon. Will see him on an as-needed basis and he will follow up as an outpatient.
--- NOTE | 2016-12-13 15:23 | P.DS ---
Providers Date of admission: 12/07/16 10:36 Expected date of discharge: 12/13/16 Attending physician: Bautista Romero Consults: 12/07/16 13:11 Consult Physician Urgent Consulting Provider: Huber Murary Consult Reason/Comments: new afib Do you want consulting provider notified?: Yes 12/08/16 11:51 Consult Physician Routine Consulting Provider: Bran Hardin Consult Reason/Comments: Sepsis, Flu B, pt known to you Do you want consulting provider notified?: Yes 12/10/16 19:34 Consult Physician Routine Consulting Provider: Aliyah Palumbo Consult Reason/Comments: COPD Do you want consulting provider notified?: Already Contacted Primary care physician: Bautista Romero Hospital Course: Patient is a 56-year-old male with multiple recent hospitalizations with evidence of hypotension and lactic acidosis thought to be medication induced from allopurinol as well as metformin. Patient presented this time with complaints of fever, shortness of breath, and diarrhea and found to have evidence of influenza B and pneumonia. No evidence of GI bleed and C. difficile toxin was negative. Patient was followed by Dr. Hardin from infectious disease service and started on Tamiflu, IV Zosyn and IV vancomycin therapy with concern for staph or MRSA pneumonia which is common with influenza. Patient was also followed by Dr. Palumbo from pulmonary service. During patient's hospitalization, he did have an episode of atrial arrhythmia and cardiology service was consulted. Patient was started on low-dose beta gideon which he didn't tolerate secondary to bradycardia with heart rate in high 40s and low 50s and was discontinued on discharge. Patient improved significantly during his hospital stay and was deemed stable for discharge to home with close follow-up in the outpatient setting. Patient declined need for home care. Discharge diagnoses: 1. Sepsis from Influenza B pneumonia. 2. Anemia 3. Atrial arrhythmia with no evidence of atrial fibrillation, resolved. 5. History of coronary artery disease, status post coronary artery bypass grafting and percutaneous revascularization. 6. Systolic heart failure with EF 40-45%. 7. Peripheral neuropathy felt to be combination of degenerative disc disease and diabetes.. 8. Severe degenerative disc disease. 9. Possible obstructive sleep apnea. 10. History of pancreatic mass. 11. History of adrenal adenoma. 12. Pressure ulcer 2 to sacrum, present on admission. The above impression and plan have been discussed and directed by Dr. Romero. Jewell ANTHONY acting as scribe for Dr. Romero. Pertinent Studies: EKG; chest x-ray; abdomen/pelvis CT; echocardiogram with Doppler Patient Condition at Discharge: Good Plan - Discharge Summary New Discharge Prescriptions: Aspirin 81 mg PO DAILY #30 chew Cefuroxime Axetil [Ceftin] 500 mg PO BID #14 tab Magnesium Oxide [Mag-Ox] 400 mg PO TID #90 tab Discharge Medication List Levothyroxine Sodium [Synthroid] 50 mcg PO HS 02/01/14 [History] Nitroglycerin Sl Tabs [Nitrostat] 0.4 mg SUBLINGUAL Q5M PRN 02/01/14 [History] Omeprazole [PriLOSEC] 20 mg PO BID 02/01/14 [History] Furosemide [Lasix] 20 mg PO DAILY PRN 05/13/15 [History] Gabapentin [Neurontin] 800 mg PO QID 05/13/15 [History] amLODIPine [Norvasc] 5 mg PO HS 05/13/15 [History] HYDROcodone/APAP 10-325MG [[place] 10-325] 1 tab PO Q4HR PRN 07/17/16 [History] Simvastatin [Zocor] 80 mg PO HS 07/17/16 [History] fentaNYL 25MCG/HR PATCH [Duragesic 25MCG/HR] 1 patch TRANSDERM Q72H 07/17/16 [ History] Montelukast [Singulair] 10 mg PO HS #30 tab 11/21/16 [Rx] Albuterol Inhaler [Ventolin Hfa Inhaler] 2 puff INHALATION RT-Q6H PRN 11/28/16 [ History] Hydrocortisone [Cortef] 20 mg PO DAILY #30 tab 12/03/16 [Rx] Insulin Aspart [NovoLOG Flexpen] See Protocol SQ ACHS #3 pen 12/03/16 [Rx] Insulin Glargine,Hum.rec.anlog [Lantus Solostar] 25 unit SQ HS #3 pen 12/03/16 [ Rx] guaiFENesin [Mucinex] 600 mg PO Q6HR PRN #30 tablet.er 12/03/16 [Rx] Aspirin 81 mg PO DAILY #30 chew 12/13/16 [Rx] Cefuroxime Axetil [Ceftin] 500 mg PO BID #14 tab 12/13/16 [Rx] Gabapentin [Neurontin] 800 mg PO TID cap 12/13/16 [Rx] Magnesium Oxide [Mag-Ox] 400 mg PO TID #90 tab 12/13/16 [Rx] Follow up Appointment(s)/Referral(s): Enedina Nam MD [STAFF PHYSICIAN] - 3 Weeks Bautista Romero MD [Primary Care Provider] - 1-2 days Ag Morton MD [STAFF PHYSICIAN] - 1 Week Patient Instructions/Handouts: Influenza (DC), Pneumonia (DC) Discharge Disposition: HOME SELF-CARE
--- NOTE | 2016-12-13 23:07 | PN ---
DATE OF SERVICE: 12/13/2016 The patient is a 56-year-old male who is seen lying in bed, awake and alert. Plan is for patient to be discharged home after the infectious disease doctor has prescribed the antibiotics. The patient is eager to go home, is awake, alert, hemodynamically stable, afebrile, in no acute distress. On physical examination: VITAL SIGNS: Temp 97.3, heart rate 54, respiratory rate 18, blood pressure is 136/76, oxygen saturation 94% on room air. HEENT: Head is normocephalic, atraumatic. NECK: Supple. Trachea is midline. LUNGS: Essentially clear. No rales or wheezes. HEART: S1 and S2 are heard. Not tachycardic. ABDOMEN: Soft. Bowel sounds are heard. EXTREMITIES: With John wraps bilaterally. The patient does have lower extremity swelling. NEUROLOGIC: The patient is awake and alert. LABS: White count is 2.8, hemoglobin is 10.9, hematocrit 35.1 with 146,000 platelets. Sodium is 144, potassium 3.9, chloride 99. CO2 is 36. Anion gap is 9, BUN 11, creatinine 0.82, glucose is 163. Calcium is 8.0. No new imaging to review. IMPRESSION: 1. Influenza B pneumonia. 2. Sepsis. 3. Pyrexia. 4. Bibasilar atelectasis. 5. Pancytopenia likely due to sepsis. 6. New onset atrial fibrillation, currently in sinus rhythm. 7. Dehydration. 8. Diarrhea. 9. Systolic heart failure with EF 40 to 50 45%. 10. Decubitus ulcer x2. 11. Possible obstructive sleep apnea. 12. Hypertensive urgency. 13. Recent hospitalization for pneumonia. 14. Diabetes mellitus type 2. 15. History of myocardial infarction. 16. Peripheral neuropathy. 17. Degenerative disc disease. 18. History of cerebrovascular accident. 19. Hypothyroidism. PLAN: Continue current medications which have been reviewed. Agree with discharge home. The patient will need to follow-up with his primary outpatient physical therapist assistant Dr. Morton in the office in the next 10 days to 2 weeks and this was shared with the patient's nurse. I performed a history and physical examination of this patient and discussed the same with the dictator. I agree with the dictator's note. Any additional findings/opinions, etc. will be noted.
== END 2016-12-13 17:45 | disposition home or self-care (01) | DRG 871 ==
LOC: EC 09:23 → 5MS5E 10:36
PROVIDERS: ADMIT Family Medicine; ATTEND Family Medicine
DX: A41.9 Sepsis, unspecified organism (principal); J10.08 Influenza due to other identified influenza virus with other specified pneumonia; D61.818 Other pancytopenia; I11.0 Hypertensive heart disease with heart failure; I50.22 Chronic systolic (congestive) heart failure; J12.9 Viral pneumonia, unspecified; J98.11 Atelectasis; E11.42 Type 2 diabetes mellitus with diabetic polyneuropathy; E83.42 Hypomagnesemia; E86.0 Dehydration; I48.91 Unspecified atrial fibrillation; E03.9 Hypothyroidism, unspecified; E78.5 Hyperlipidemia, unspecified; E87.6 Hypokalemia; G89.4 Chronic pain syndrome; I16.0 Hypertensive urgency; I25.10 Atherosclerotic heart disease of native coronary artery without angina pectoris; I25.2 Old myocardial infarction; I25.5 Ischemic cardiomyopathy; I49.1 Atrial premature depolarization; J44.9 Chronic obstructive pulmonary disease, unspecified; M47.9 Spondylosis, unspecified; G47.33 Obstructive sleep apnea (adult) (pediatric); Z96.641 Presence of right artificial hip joint; L89.159 Pressure ulcer of sacral region, unspecified stage; Z79.82 Long term (current) use of aspirin; Z79.899 Other long term (current) drug therapy; Z80.1 Family history of malignant neoplasm of trachea, bronchus and lung; Z80.3 Family history of malignant neoplasm of breast; Z82.49 Family history of ischemic heart disease and other diseases of the circulatory system; Z85.828 Personal history of other malignant neoplasm of skin; Z86.73 Personal history of transient ischemic attack (TIA), and cerebral infarction without residual deficits; Z87.01 Personal history of pneumonia (recurrent); Z87.891 Personal history of nicotine dependence; Z95.1 Presence of aortocoronary bypass graft; Z95.5 Presence of coronary angioplasty implant and graft
CPT/HCPCS: 36415; 71010; 71020; 74177; 80048; 80051; 80053; 80202; 81003; 82550; 82553; 83036; 83605; 83735; 83880; 84100; 84443; 84484; 85025; 85610; 85730; 87040; 87086; 87324; 87502; 93005; 93306; 94640; 96365; 96375; 99291

== ENCOUNTER 2017-02-10 09:04 | Inpatient (IN) | payer MEDICARE ==
[2017-02-10] MEDS ORDERED: IBUPROFEN IV 600 MG in SODIUM CHLORIDE 0.9% 250 ML IV STA (09:35)
[2017-02-10] MEDS ORDERED: ACETAMINOPHEN TAB 500 MG TAB PO STA (09:35)
[2017-02-10] MEDS: SODIUM CHLORIDE 0.9% 500 ML IV SCH ×2 (09:45→13:40)
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
[2017-02-10 10:06] LABS: Appearance,Urine Clear (Clear); Bilirubin,Urine Negative (Negative); Glucose,Urine (UA) 3+ (Negative); Ketones,Urine 1+ (Negative); Leukocyte Esterase,Urine Negative (Negative); Mucus,Urine Rare /hpf; Nitrite,Urine Negative (Negative); Particle Count 191; Protein,Urine 1+ (Negative); RBC,Urine 3 /hpf (0-5); Specific Gravity,Urine 1.011 (1.001-1.035); UA Billing (MACRO vs. MICRO) MICRO; WBC,Urine <1 /hpf (0-5)
[2017-02-10 10:39] LABS: Basophils % (A) 0 %; CH 26.5; Eosinophils # (A) 0.1 k/uL (0-0.7); Eosinophils % (A) 1 %; HCT 39.3 % (39.0-53.0); HGB 11.8 gm/dL (13.0-17.5); Hypochromasia Marked; Luc # (Auto) 0.23; Luc % (Auto) 2; Lymphocytes # (A) 0.9 k/uL (1.0-4.8); Lymphocytes % (A) 7 %; MCH 26.6 pg (25.0-35.0); MCHC 30.1 g/dL (31.0-37.0); Mean Platelet Volume 7.9; Monocytes # (A) 0.6 k/uL (0-1.0); Monocytes % (A) 5 %; Neutrophils # (A) 11.1 k/uL (1.3-7.7); Neutrophils % (A) 85 %; RBC 4.44 m/uL (4.30-5.90); RDW 14.9 % (11.5-15.5); WBC 13.1 k/uL (3.8-10.6); WBC (Perox) 13.54
[2017-02-10 10:45] LABS: MCV 88.4 fL (80.0-100.0)
[2017-02-10 10:52] LABS: INR 1.1 (<1.1); Partial Thromboplastin Time 24.4 sec (22.0-30.0); Prothrombin Time 11.3 sec (9.0-12.0)
[2017-02-10 10:53] LABS: ALT 32 U/L (21-72); AST 31 U/L (17-59); Alkaline Phosphatase 99 U/L (38-126); Anion Gap 10 mmol/L; Blood Urea Nitrogen 30 mg/dL (9-20); Calcium 8.4 mg/dL (8.4-10.2); Carbon Dioxide 27 mmol/L (22-30); Chloride 102 mmol/L (98-107); Glucose 246 mg/dL (74-99); Non-African American GFR(MDRD) >60 (>60 ml/min/1.73 sqM); Potassium 3.9 mmol/L (3.5-5.1); Sodium 139 mmol/L (137-145); Total Bilirubin 1.2 mg/dL (0.2-1.3); Total Protein 6.7 g/dL (6.3-8.2)
[2017-02-10 11:33] LABS: Troponin I 0.041 ng/mL (0.000-0.034)
--- NOTE | 2017-02-10 11:50 | XR ---
EXAMINATION TYPE: XR chest 2V DATE OF EXAM: 02/10/2017 COMPARISON: Prior chest x-ray November HISTORY: Fever, nausea and abdominal pain TECHNIQUE: Frontal and lateral views of the chest are obtained on 3 images. FINDINGS: There is no focal air space opacity, pleural effusion, or pneumothorax seen. The cardiac silhouette size is stable, size may be accentuated by rotation. Patient is post median sternotomy. P rominent lung volume may be indicative of underlying COPD. There are overlying cardiac leads. Patient is rotated. Increased attenuation at the level of the anterior right sixth rib may be due to superim position of structures. The osseous structures are intact. IMPRESSION: Rotated exam. No definite acute abnormality. Findings at the anterior right rib as descr ibed. Follow-up suggested.
[2017-02-10] MEDS ORDERED: HEPARIN SODIUM,PORCINE 5,000 UNIT/ML 1 ML VIAL IV ONE (12:12)
[2017-02-10] MEDS ORDERED: LEVOFLOXACIN 750MG-D5W PMX 750 MG in DEXTROSE/WATER 1 150ML.BAG IVPB STA (12:12)
[2017-02-10] MEDS ORDERED: ASPIRIN 81 MG CHEW PO STA (12:14)
[2017-02-10] MEDS ORDERED: NITROGLYCERIN SL TABS 0.4 MG TAB SUBLINGUAL PRN (12:14)
[2017-02-10] MEDS ORDERED: HEPARIN SODIUM,PORCINE/D5W PMX 25,000 UNIT in DEXTROSE/WATER 1 500ML.BAG IV SCH (12:15)
[2017-02-10 16:42] LABS: Glucose,Whole Blood 238 mg/dL (75-99)
[2017-02-10 16:56] LABS: Creatine Kinase MB 2.7 ng/mL (0.0-2.4); Troponin I 0.044 ng/mL (0.000-0.034)
[2017-02-10] MEDS: NITROGLYCERIN OINT 1 INCH/GM PACKET TOPICAL SCH ×2 (17:05→23:18)
[2017-02-10] MEDS ORDERED: FUROSEMIDE 20 MG TAB PO PRN (17:10)
[2017-02-10] MEDS ORDERED: HYDROmorphone 2 MG/ML 1 ML SYRINGE IVP STA (17:10)
[2017-02-10] MEDS: PANTOPRAZOLE 40 MG TABLET PO SCH (17:59)
[2017-02-10] MEDS: INSULIN LISPRO (humaLOG) 300 UNIT/3 ML VIAL SQ SCH ×2 (18:00→20:50)
[2017-02-10] MEDS: GABAPENTIN 400 MG CAP PO SCH ×2 (18:00→19:41)
[2017-02-10] MEDS: IPRATROPIUM-ALBUTEROL 3 ML NEB INHALATION SCH (19:36)
[2017-02-10] MEDS: HYDROcodone/APAP 10-325MG 1 EACH TAB PO PRN ×2 (19:40→23:22)
[2017-02-10] MEDS: ATORVASTATIN 40 MG TAB PO SCH (19:41)
[2017-02-10] MEDS: MONTELUKAST 10 MG TAB PO SCH (19:41)
[2017-02-10] MEDS: amLODIPine 5 MG TAB PO SCH (19:42)
[2017-02-10] MEDS: LEVOTHYROXINE 50 MCG TAB PO SCH (19:42)
[2017-02-10 19:50] LABS: Hemoglobin A1C 9.1 % (4.2-6.1)
[2017-02-10 20:30] LABS: Glucose,Whole Blood 213 mg/dL (75-99)
[2017-02-10] MEDS: INSULIN GLARGINE 100 UNIT/ML 10 ML VIAL SQ SCH (20:50)
[2017-02-10 22:24] LABS: Troponin I 0.029 ng/mL (0.000-0.034)
[2017-02-10] MEDS: HEPARIN SODIUM,PORCINE 5,000 UNIT/ML 1 ML VIAL IV PRN (22:24)
[2017-02-10] MEDS: OXYMETAZOLINE 0.05% NASL SPRAY 15 ML NASAL SCH (23:16)
[2017-02-11] MEDS: HYDROcodone/APAP 10-325MG 1 EACH TAB PO PRN ×6 (03:35→23:38)
[2017-02-11 04:47] LABS: Cholesterol 105 mg/dL (<200); HDL Cholesterol 37 mg/dL (40-60); Triglycerides 131 mg/dL (<150)
[2017-02-11] MEDS: NITROGLYCERIN OINT 1 INCH/GM PACKET TOPICAL SCH (05:41)
[2017-02-11] MEDS: HEPARIN SODIUM,PORCINE 5,000 UNIT/ML 1 ML VIAL IV PRN (05:41)
[2017-02-11 05:46] LABS: Glucose,Whole Blood 184 mg/dL (75-99)
[2017-02-11] MEDS: INSULIN LISPRO (humaLOG) 300 UNIT/3 ML VIAL SQ SCH ×4 (06:44→20:59)
[2017-02-11] MEDS: PANTOPRAZOLE 40 MG TABLET PO SCH ×2 (06:45→16:58)
[2017-02-11] MEDS: IPRATROPIUM-ALBUTEROL 3 ML NEB INHALATION SCH ×3 (07:39→19:36)
[2017-02-11] MEDS: HYDROCORTISONE 20 MG TAB PO SCH (09:00)
[2017-02-11] MEDS ORDERED: ASPIRIN 325 MG TAB PO SCH (09:00)
[2017-02-11] MEDS: GABAPENTIN 400 MG CAP PO SCH ×4 (09:00→20:59)
[2017-02-11] MEDS: OXYMETAZOLINE 0.05% NASL SPRAY 15 ML NASAL SCH ×2 (09:01→19:59)
--- NOTE | 2017-02-11 09:48 | CONS ---
DATE OF CONSULTATION: Mr. Ribera is a 56 -year-old male patient who came in with symptoms of fever for the last 24 hours. He denied any cough or expectoration. He denied any pulmonary symptoms or abdominal or genitourinary symptoms. He denied any chest discomfort, dizziness, lightheadedness. Cardiology was consulted on account of past history of coronary artery disease, coronary artery bypass grafting. Labs reviewed. Troponins borderline abnormal. EKG showed nonspecific ST-T abnormalities with Q waves in the inferior leads consistent with an old inferior infarct. Past history of coronary artery disease, coronary artery bypass grafting, diabetes, and heart failure. Medication list was reviewed and is documented in the chart and includes: 1. Synthroid. 2. Nitroglycerin. 3. Omeprazole. 4. Lasix. 5. Gabapentin. 6. Amlodipine. 7. Hydrocodone. 8. Zocor. 9. Fentanyl. 10. Insulin. 11. Multivitamins. ALLERGIES: None. REVIEW OF SYSTEMS: Fever. No cough or expectoration. No nausea, vomiting, or diarrhea. No hematuria, dysuria, strokes or seizures. No skin lesions. No musculoskeletal complaints. On examination, his blood pressure is 164/79 millimeters of Hg. He is afebrile at this time. Heart rate is 79, respiratory rate 19. HEAD AND NECK: Examination is normal. CARDIOVASCULAR: Heart sounds S1, and S2 are normal. Breath sounds are decreased bilaterally. ABDOMEN: Soft, nontender. EXTREMITIES: Warm. No edema. IMPRESSION: 1. Known coronary disease, status post coronary artery bypass grafting. 2. Diabetes. 3. Borderline troponins. 4. Admitted with high fever. White count is 13,000 and neutrophils there is a left ( ) shift with marked hypochromasia. His blood pressure was intermittently elevated. SUGGEST: Heparin may be discontinued. Work up for fever and elevated white count by internal medicine. Nitro paste will be discontinued. Continue atorvastatin 40 mg daily, aspirin and aspirin can be changed to 81 mg p.o. daily and also watch blood pressure and start AGNIESZKA inhibitors. I am not sure why he is not on an AGNIESZKA inhibitor. His kidney function is normal.
[2017-02-11 11:06] LABS: Basophils % (A) 0 %; CH 26.2; Eosinophils # (A) 0.2 k/uL (0-0.7); Eosinophils % (A) 3 %; HCT 37.6 % (39.0-53.0); Hypochromasia Marked; Luc # (Auto) 0.18; Luc % (Auto) 2; Lymphocytes # (A) 0.9 k/uL (1.0-4.8); Lymphocytes % (A) 12 %; MCH 26.4 pg (25.0-35.0); MCHC 29.2 g/dL (31.0-37.0); MCV 90.6 fL (80.0-100.0); Mean Platelet Volume 8.8; Monocytes # (A) 0.5 k/uL (0-1.0); Monocytes % (A) 7 %; Neutrophils # (A) 5.9 k/uL (1.3-7.7); Neutrophils % (A) 76 %; RBC 4.15 m/uL (4.30-5.90); WBC 7.7 k/uL (3.8-10.6); WBC (Perox) 7.87
[2017-02-11] MEDS: MULTIVITAMINS, THERA 1 EACH TAB PO SCH (11:11)
[2017-02-11 11:16] LABS: ALT 40 U/L (21-72); AST 26 U/L (17-59); Alkaline Phosphatase 72 U/L (38-126); Anion Gap 8 mmol/L; Blood Urea Nitrogen 21 mg/dL (9-20); Carbon Dioxide 27 mmol/L (22-30); Chloride 106 mmol/L (98-107); Glucose 194 mg/dL (74-99); Non-African American GFR(MDRD) >60 (>60 ml/min/1.73 sqM); Potassium 4.2 mmol/L (3.5-5.1); Sodium 141 mmol/L (137-145); Total Bilirubin 0.9 mg/dL (0.2-1.3); Total Protein 5.8 g/dL (6.3-8.2)
[2017-02-11 11:56] LABS: Glucose,Whole Blood 132 mg/dL (75-99)
[2017-02-11] MEDS ORDERED: LEVOFLOXACIN 750MG-D5W PMX 750 MG in DEXTROSE/WATER 1 150ML.BAG IVPB SCH (12:00)
--- NOTE | 2017-02-11 14:07 | HP ---
DATE OF ADMISSION: 02/10/17. CHIEF COMPLAINT: Weakness, confusion, after arising from falling asleep while sitting on the toilet. This is a 56-year-old white male who came in after sitting on toilet with weakness. Had some nausea. Fever up to 102 initially. Patient currently has no complaints of high fever. He denied any chest pain, had numbness, tingling at that period of time. He did not have any true shortness of breath, cough, or palpitations. No abdominal pain. No nausea. No vomiting. No diarrhea. No dysuria. No frequency of urination. He appeared to be very weak. In the emergency room when I was called by the emergency room physician, he did have a mildly elevated troponin. He has a past medical history of no known allergies. MEDICATIONS: Medications are that of: 1. Levothroid 0.5 mg at bedtime. 2. Nitrostat p.r.n. 3. Omeprazole 20 mg b.i.d. 4. Lasix 20 p.r.n. 5. Gabapentin Neurontin 800 mg 4 times day. 6. ( ). 7. Norvasc 5 mg daily. 8. Hydrocodone 10/325 every 4 hours p.r.n. pain. 9. Zocor 80 mg daily. 10. Fentanyl patch 72 hours. 11. Insulin at bedtime and a.c. meals. 12. DuoNeb t.i.d. 13. Multivitamin daily. 14. He also previously has been on insulin 25 units of Lantus at bedtime. 15. Singulair 10. 16. Previous aspirin 81 mg daily. REVIEW OF SYSTEMS: CARDIOPULMONARY: No shortness of breath or chest pain, orthopnea, no paroxysmal nocturnal dyspnea. GI: No hematemesis, melena, hematochezia. : No urination. NEUROMUSCULAR: He has a painful left hand mid palm, he has a little break in the top of his finger. PSYCHIATRIC: He has no depression. No anxiety. PAST MEDICAL HISTORY: Long-standing history of heart failure, coronary artery disease, diabetes mellitus, myocardial infarction. Previous pneumonias. He has also had infections in his hands. He has had multiple MRSA infections in the past. Recent viremia. The patient has had a previous parapneumonic effusion and had chest tube placement. He has had previous coccyx ulcer, which is healed and infected right-hand in 2014, post carpal tunnel, taken care of by Dr. David Minor. Infection with antibiotics for a long period of time per Dr. Hardin. He has a long-standing history of neuropathy and previous tinnitus, previous pancreatitis in mid September 2015. He had a bad case of shingles, multiple cancer removals ( ). His myocardial infarction is that of 2006. His surgical history is for bowel resection, which was traumatic in nature, cholecystectomy, coronary bypass with CABG, heart catheterization with stent, hernia repair, joint replacement, Orthopedic surgery and tonsillectomy again in 2010 he had CABG three-vessel bypass. Other surgical history is he also had circumcision, undescended testicle surgery. He had a right knee calcification removed in 1966 and again and then 1972 and he had total right hip replacement and had cervical spine decompression with Dr. Chang, radiofrequency ablation of history is he still has a pancreatic mass is being watched by Dr. Jero foss at [facility] and he also has a follow up for further surgery of the spine with Dr. Chang. SOCIAL HISTORY: He is a nonsmoker. He did smoke for over 20 years of cigarettes for greater than 1 pack per day. He used to be ETOH user. He does not drink or smoke at this period of time. He did use drugs as a youth. FAMILY HISTORY: He had a history of family history of cancer, GERD, hypertension, osteoarthritis. His mother did have breast cancer. Father did have diabetes, and cancer. PHYSICAL EXAMINATION: Vitals at this time shows a blood pressure 152/70, heart rates in the 80s, temperature 98.7. EYES: Pupils are equal, round, react to light and accommodation. ENT: Showed tympanic membranes and pharynx to be negative. Neck is supple with midline trachea. CHEST: Essentially clear to auscultation. HEART: Sinus rhythm with no murmur. ABDOMEN: Soft, nontender, with no organomegaly. He does have some tenderness in the left hand and also in the mid palm, a little break in the skin. He has good palpable lower extremity pulses. Decreased sensation indicative of neuropathy. He is able to stand and walk with just use of a walker. Neurologically he is stable. Cranial nerves II through XII he is grossly intact. PSYCHIATRIC: He is well orientated to person, place, and thing. He is not depressed. There is some anxiety with the pain he is having and he is requiring more pain medication IV. His lab at this period of time, white cell count is 7.7 with a hemoglobin of 11. His blood sugars are watched accordingly. Normal CPK and MB was 4, and the rest of his chem-17 was within normal limits. ASSESSMENT: 1. Acute elevation of troponin, which Dr. Anna says is not relevant to his admission. He does not think this is an acute cardiac event. 2. Infectious origin of questionable etiology. 3. Long-standing history of insulin-dependent diabetes. 4. Previous history of myocardial infarction. 5. Previous right hip replacement. 6. 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 7. Previous pneumonia. 8. Previous viremia. 9. Hypertension. 10. Coronary artery disease with 3 vessel bypass. 11. Hyperlipidemia. PLAN: At this time, we will wait urine and blood cultures and add Kefzol because of the hand tenderness he is having at this time. Will add one injection of Dilaudid to his present state. Please refer to my orders. Prognosis guarded.
[2017-02-11 15:33] LABS: Appearance,Urine Clear (Clear); Bilirubin,Urine Negative (Negative); Glucose,Urine (UA) Negative (Negative); Ketones,Urine Negative (Negative); Leukocyte Esterase,Urine Negative (Negative); Nitrite,Urine Negative (Negative); PH, Urine 6.5 (5.0-8.0); Protein,Urine Trace (Negative); UA Billing (MACRO vs. MICRO) CHEM
[2017-02-11 17:01] LABS: Glucose,Whole Blood 183 mg/dL (75-99)
[2017-02-11] MEDS: amLODIPine 5 MG TAB PO SCH (19:59)
[2017-02-11] MEDS: ATORVASTATIN 40 MG TAB PO SCH (19:59)
[2017-02-11] MEDS: MONTELUKAST 10 MG TAB PO SCH (19:59)
[2017-02-11] MEDS: LEVOTHYROXINE 50 MCG TAB PO SCH (19:59)
[2017-02-11 20:41] LABS: Glucose,Whole Blood 208 mg/dL (75-99)
[2017-02-11] MEDS: INSULIN GLARGINE 100 UNIT/ML 10 ML VIAL SQ SCH (20:59)
[2017-02-12] MEDS: HYDROcodone/APAP 10-325MG 1 EACH TAB PO PRN ×5 (03:51→19:55)
[2017-02-12 05:31] LABS: Glucose,Whole Blood 142 mg/dL (75-99)
[2017-02-12] MEDS: INSULIN LISPRO (humaLOG) 300 UNIT/3 ML VIAL SQ SCH ×4 (06:34→21:03)
[2017-02-12] MEDS: PANTOPRAZOLE 40 MG TABLET PO SCH ×2 (06:34→17:13)
[2017-02-12] MEDS: IPRATROPIUM-ALBUTEROL 3 ML NEB INHALATION SCH ×3 (07:54→20:19)
--- NOTE | 2017-02-12 08:42 | XR ---
EXAMINATION TYPE: XR hand complete LT DATE OF EXAM: 02/12/2017 8:17 AM COMPARISON: NONE HISTORY: Left hand pain pain at base of thumb TECHNIQUE: 3 view left hand FINDINGS: Osteoarthritic degenerative changes at the first carpal metacarpal junction. Degenerative j oint changes are present throughout the hand including metacarpal phalangeal joint spaces, proximal, and distal interphalangeal joint spaces. Subcutaneous calcification is present within the hand. Periarticular calcifications appear to be pres ent especially noted at the index and middle fingers. Some periarticular erosions may be present at t he carpal metacarpal junctions. Findings are not diagnostic for, but could indicate scleroderma. IMPRESSION: 1. Multiple joint space narrowings, subcutaneous calcification and periarticular calcifications. Fin dings could be related to arthritides such as scleroderma.. Differential diagnosis could include rheu matoid arthritis.
[2017-02-12] MEDS: GABAPENTIN 400 MG CAP PO SCH ×4 (09:45→21:04)
[2017-02-12] MEDS: HYDROCORTISONE 20 MG TAB PO SCH (09:46)
[2017-02-12] MEDS: OXYMETAZOLINE 0.05% NASL SPRAY 15 ML NASAL SCH ×2 (09:46→19:45)
[2017-02-12] MEDS: ASPIRIN 81 MG CHEW PO SCH (09:58)
[2017-02-12] MEDS: LISINOPRIL 5 MG TAB PO SCH (09:58)
[2017-02-12 11:01] VITALS: BMI 29.7
--- NOTE | 2017-02-12 11:09 | P.PN ---
Subjective Principal diagnosis: Fever This is a 56-year-old gentleman with known history of coronary artery disease and prior bypass surgery in 2010, patient also had LAD stenting performed in June 2012, hypertension, hyperlipidemia, diabetes, both thyroidism, family history of premature coronary artery disease. He follows with Dr. Nam in the office. He presented to the hospital with symptoms of extreme weakness with associated fever. Fever was up to 102.5 initially. Blood cultures have been negative 2. Patient was initiated on IV antibiotics. A cardiology consultation was initially requested because of abnormal troponins. Troponins were not consistent with acute coronary syndrome, likely secondary to oxygen supply and demand mismatch. EKG showed normal sinus rhythm with nonspecific ST-T abnormalities and Q waves in the inferior leads consistent with old infarct. His IV heparin was discontinued yesterday as well as the Nitropaste. Aspirin was decreased 81 mg and AGNIESZKA inhibitor added to his medication regime. Patient was seen and examined this morning, denies any chest discomfort, breathing is stable. Blood pressure this morning 158/80 with a heart rate in the 70s. Objective - Vital Signs Vital signs: Vital Signs Temp 97.7 F 02/12/17 08:00 Pulse 41 L 02/12/17 08:00 Resp 18 02/12/17 08:00 BP 158/85 02/12/17 08:00 Pulse Ox 97 02/12/17 08:00 Intake & Output 02/11/17 02/12/17 02/12/17 18:59 06:59 18:59 Intake Total 480 Output Total 1450 1000 Balance -970 -1000 Weight 83.6 kg 83.6 kg Intake: Oral 480 Output: Urine 1450 1000 Other: # Voids 2 # Bowel Movements 0 - Exam PHYSICAL EXAMINATION: HEENT: Head is atraumatic, normocephalic. Pupils equal, round. Neck is supple. There is no elevated jugular venous pressure. HEART EXAMINATION: Heart S1 and S2 systolic murmur is heard. CHEST EXAMINATION: Lungs are clear to auscultation and precussion. No chest wall tenderness is noted on palpation or with deep breathing. ABDOMEN: Soft, nontender. Bowel sounds are heard. No organomegaly noted. EXTREMITIES: 2+ peripheral pulses with no evidence of peripheral edema and no calf tenderness noted. NEUROLOGIC patient is awake, alert and oriented -3. . - Labs CBC & Chem 7: 02/11/17 03:56 02/11/17 03:56 Labs: Abnormal Lab Results - Last 24 Hours (Table) 02/11/17 02/11/17 02/11/17 Range/Units 03:56 03:56 11:54 RBC 4.15 L (4.30-5.90) m/uL Hgb 11.0 L (13.0-17.5) gm/dL Hct 37.6 L (39.0-53.0) % MCHC 29.2 L (31.0-37.0) g/dL Lymphocytes # 0.9 L (1.0-4.8) k/uL BUN 21 H (9-20) mg/dL Glucose 194 H (74-99) mg/dL POC Glucose (mg/dL) 132 H (75-99) mg/dL Total Protein 5.8 L (6.3-8.2) g/dL Albumin 3.0 L (3.5-5.0) g/dL Urine Protein (Negative) 02/11/17 02/11/17 02/11/17 Range/Units 15:18 16:59 20:39 RBC (4.30-5.90) m/uL Hgb (13.0-17.5) gm/dL Hct (39.0-53.0) % MCHC (31.0-37.0) g/dL Lymphocytes # (1.0-4.8) k/uL BUN (9-20) mg/dL Glucose (74-99) mg/dL POC Glucose (mg/dL) 183 H 208 H (75-99) mg/dL Total Protein (6.3-8.2) g/dL Albumin (3.5-5.0) g/dL Urine Protein Trace H (Negative) 02/12/17 Range/Units 05:29 RBC (4.30-5.90) m/uL Hgb (13.0-17.5) gm/dL Hct (39.0-53.0) % MCHC (31.0-37.0) g/dL Lymphocytes # (1.0-4.8) k/uL BUN (9-20) mg/dL Glucose (74-99) mg/dL POC Glucose (mg/dL) 142 H (75-99) mg/dL Total Protein (6.3-8.2) g/dL Albumin (3.5-5.0) g/dL Urine Protein (Negative) Microbiology - Last 24 Hours (Table) 02/10/17 10:29 Blood Culture - Preliminary Blood No Growth after 24 hours 02/10/17 09:24 Urine Culture - Final Urine,Voided 02/10/17 09:24 Blood Culture - Preliminary Blood No Growth after 24 hours Assessment and Plan (1) Hyperlipemia Status: Acute (2) Hx of CABG Status: Acute (3) Elevated troponin Status: Acute (4) Febrile illness Status: Acute (5) Coronary artery disease Status: Acute (6) Diabetes Status: Acute (7) Hypertension Status: Acute Plan: Cardiology's perspective, we'll decrease patient's aspirin to 81 mg daily and add an AGNIESZKA inhibitor to his medication regime. 10 you current workup for febrile illness. DNP note has been reviewed, I agree with a documented findings and plan of care. Patient was seen and examined.
--- NOTE | 2017-02-12 11:26 | P.PN ---
Progress Note - Text This is an addendum to the progress note dictated earlier today. From cardiology's perspective patient may be transferred to medical surgical unit off of telemetry. DNP note has been reviewed, I agree with a documented findings and plan of care. Patient was seen and examined.
[2017-02-12] MEDS: LEVOFLOXACIN 750 MG TAB PO SCH (11:51)
[2017-02-12] MEDS: MULTIVITAMINS, THERA 1 EACH TAB PO SCH (11:52)
[2017-02-12 11:55] LABS: Glucose,Whole Blood 220 mg/dL (75-99)
--- NOTE | 2017-02-12 15:03 | P.PN ---
Subjective Patient is a 56-year-old male admitted with chief complaint of acute change in mental status associated with some nausea and hyperpyrexia. Patient also had mildly elevated troponin. Upon examination, patient is feeling better. Patient continues to complain of right palmar surface hand pain proximal to right thumb. Left hand x-ray with evidence of multiple joint space narrowings, subcutaneous calcification and periarticular calcifications. Patient denies nausea, vomiting, weakness, fevers, shortness of breath, chest pain, or abdominal pain. Patient is urinating without difficulty. Patient denies constipation or diarrhea. Patient has been evaluated by cardiology service who feels patient's abnormal troponins are not consistent with acute coronary syndrome but most likely secondary to oxygen supply demand mismatch. Objective - Vital Signs Vital signs: Vital Signs Temp 97.5 F L 02/12/17 11:45 Pulse 50 L 02/12/17 11:45 Resp 18 02/12/17 11:45 BP 145/78 02/12/17 11:45 Pulse Ox 100 02/12/17 11:45 Intake & Output 02/11/17 02/12/17 02/12/17 18:59 06:59 18:59 Intake Total 480 650 Output Total 1450 1000 Balance -970 -1000 650 Weight 83.6 kg 83.6 kg Intake: Intake, IV Titration 50 Amount cefTRIAXone 1,000 mg In 50 Sodium Chloride 0.9% 50 ml @ 100 mls/hr IVPB Q12HR [facility] Rx#:[id number] Oral 480 600 Output: Urine 1450 1000 Other: # Voids 2 # Bowel Movements 0 - Exam GENERAL: Pt awake and alert, lying in bed, in no acute distress. HEAD: Atraumatic, normocephalic. EYES: Pupils equal and round. Sclera anicteric, conjunctiva are normal. ENT:Moist mucous membranes. NECK:Supple without lymphadenopathy or JVD. LUNGS: Breath sounds clear throughout lung roldan. HEART: Heart S1, S2, no S3 or S4. Regular irregular rate and rhythm. No murmurs, rubs or gallops. ABDOMEN: Soft, obese, nontender, nondistended, normoactive bowel sounds. No guarding, no rebound. EXTREMITIES: Palpable peripheral pulses. Trace edema to bilateral ankles. No calf tenderness. Tenderness to palmar surface of left hand proximal to thumb. NEUROLOGICAL: Pt oriented x 3. No focal deficits. Decreased sensation to bilateral lower extremities. PSYCH: Cooperative. SKIN: Warm, dry. - Labs CBC & Chem 7: 02/11/17 03:56 02/11/17 03:56 Labs: Abnormal Lab Results - Last 24 Hours (Table) 02/11/17 02/11/17 02/11/17 Range/Units 15:18 16:59 20:39 POC Glucose (mg/dL) 183 H 208 H (75-99) mg/dL Urine Protein Trace H (Negative) 02/12/17 02/12/17 Range/Units 05:29 11:35 POC Glucose (mg/dL) 142 H 220 H (75-99) mg/dL Urine Protein (Negative) Microbiology - Last 24 Hours (Table) 02/10/17 10:29 Blood Culture - Preliminary Blood No Growth after 48 hours 02/10/17 09:24 Blood Culture - Preliminary Blood No Growth after 48 hours 02/10/17 09:24 Urine Culture - Final Urine,Voided Assessment and Plan Plan: Impression: 1. Acute elevation of troponin, suspect secondary to mismatch between oxygen supply and demand, possibly secondary to fever. 2. Sepsis, present on admission, with fever of unknown origin and acute mental status changes, improved. 3. Left palmar surface hand pain, present on admission, with small ulceration at the tip of second digit of left hand. 4. Long-standing history of insulin-dependent diabetes. 5. Previous history of myocardial infarction. 6. Previous right hip replacement. 7. 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 8. Previous pneumonia. 9. Previous viremia. 10. Hypertension. 11. Coronary artery disease with three-vessel bypass. 12. Hyperlipidemia. 13. History of systolic heart failure with EF 4045%. 14. Peripheral neuropathy felt to be combination of degenerative disc disease and diabetes. 15. History of pancreatic mass. 16. History of adrenal adenoma. Plan: Continue to monitor patient. Continue current medications. Consult Dr. Hardin from infectious disease service. Continue to follow cardiology. Continue supportive treatment and pain management. Continue GI and DVT prophylaxis. Repeat CBC and BMP in a.m. The above impression and plan have been discussed and directed by Dr. Romero. Jewell ANTHONY acting as scribe for Dr. Romero.
[2017-02-12 17:05] LABS: Glucose,Whole Blood 261 mg/dL (75-99)
[2017-02-12] MEDS: LEVOTHYROXINE 50 MCG TAB PO SCH (19:55)
[2017-02-12] MEDS: amLODIPine 5 MG TAB PO SCH (19:55)
[2017-02-12] MEDS: MONTELUKAST 10 MG TAB PO SCH (19:55)
[2017-02-12] MEDS: ATORVASTATIN 40 MG TAB PO SCH (19:55)
[2017-02-12 20:48] LABS: Glucose,Whole Blood 185 mg/dL (75-99)
[2017-02-12] MEDS: INSULIN GLARGINE 100 UNIT/ML 10 ML VIAL SQ SCH (21:02)
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
[2017-02-12] MEDS ORDERED: HYDROmorphone 1 MG/ML 1 ML SYRINGE IVP ONE (23:00)
[2017-02-12] MEDS ORDERED: methylPREDNISolone SOD SUCCI 125 MG/2 ML VIAL IV ONE (23:00)
[2017-02-13] MEDS: HYDROcodone/APAP 10-325MG 1 EACH TAB PO PRN ×5 (01:59→23:10)
[2017-02-13] MEDS: INSULIN LISPRO (humaLOG) 300 UNIT/3 ML VIAL SQ SCH ×4 (06:31→22:04)
[2017-02-13] MEDS: PANTOPRAZOLE 40 MG TABLET PO SCH ×2 (06:32→19:11)
[2017-02-13] MEDS: IPRATROPIUM-ALBUTEROL 3 ML NEB INHALATION SCH ×3 (08:47→20:26)
--- NOTE | 2017-02-13 10:48 | XR ---
EXAMINATION TYPE: XR chest 2V DATE OF EXAM: 02/13/2017 COMPARISON: Chest x-ray from 3 days ago. HISTORY: Pneumonia per order. TECHNIQUE: Frontal and lateral views of the chest are obtained. FINDINGS: Sternal wires and mediastinal clips are redemonstrated. Improved aeration right lung base i s present. Underlying emphysematous change is again seen. There is no new focal air space opacity, pl eural effusion, or pneumothorax seen. The cardiac silhouette size is within normal limits. Anterior fusion plate lower cervical spine is partially imaged. Suspect healing or healed fractures anterolate ral right mid to lower ribs. Cholecystectomy clips are seen on lateral view. IMPRESSION: Chronic findings without acute pulmonary process clearly seen.
[2017-02-13] MEDS: GABAPENTIN 400 MG CAP PO SCH ×4 (10:57→22:03)
[2017-02-13] MEDS: LISINOPRIL 5 MG TAB PO SCH (10:57)
[2017-02-13] MEDS: HYDROCORTISONE 20 MG TAB PO SCH (10:57)
[2017-02-13] MEDS: OXYMETAZOLINE 0.05% NASL SPRAY 15 ML NASAL SCH ×2 (10:58→22:02)
[2017-02-13] MEDS: ASPIRIN 81 MG CHEW PO SCH (11:02)
--- NOTE | 2017-02-13 11:19 | CDI ---
In responding to this query, please exercise your independent professional judgment. The [facility] Coding Staff and Clinical Documentation Specialists appreciate your assistance in clarifying documentation, maintaining compliance with coding guidelines, accurately documenting patients condition and capturing severity of illness. The fact that a question is asked does not imply that any particular answer is desired or expected. Communication forms are a method of clarifying documentation and are not made part of the Legal Health Record. Thank you in advance for your clarification. Last Revision, November 2015 Tarun Love [address] [place] [address] Documentation Clarification Form Date: 02/13/2017 11:07:00 AM From: Samaria Ribera RN, CCDS Admit Date: 02/10/2017 12:16:00 PM Patient Name: Benja Ribera Visit Number: [id number] Dr. Bautista Romero/Jewell Lagunas CNP Altered mental status was documented in the Attending progress Notes. Patient history/risk factors: CHF, CAD, DM, [place], hx of pneumonia, recent viremia Clinical Indicators: 02/12 Attending Progress Note: "Sepsis, present on admission, with fever of unknown origin and acute mental status changes, improved." Labs: 13.1/7.7 CXR: chronic findings Treatment: IVF Bolus IV Levaquin 750 mg IVPB q 24 hrs IV Ceftriaxone 1gm IVPB Q 12 hrs In your professional opinion, please clarify the etiology of the altered mental status, if known. Dementia (if know, specify Type and if with/without Behavioral Disturbance) Encephalopathy (specify Type and Underlying Medical Illness) Other condition (please specify) Unable to determine Please document in your progress notes and discharge summary in order to capture severity of illness and risk of mortality. Include clinical findings that support your diagnosis. FYI: Press F11 to launch patient chart. Place X here if this finding has no clinical significance, is not applicable or if you are not able to provide any additional documentation. MTDD
[2017-02-13] MEDS: LEVOFLOXACIN 750 MG TAB PO SCH (11:47)
[2017-02-13] MEDS: MULTIVITAMINS, THERA 1 EACH TAB PO SCH (11:47)
[2017-02-13 12:00] LABS: Glucose,Whole Blood 387 mg/dL (75-99)
[2017-02-13] MEDS ORDERED: HYDROmorphone 1 MG/ML 1 ML SYRINGE IVP ONE (14:00)
--- NOTE | 2017-02-13 14:11 | P.PN ---
Subjective Principal diagnosis: Fever This is a 56-year-old gentleman with known history of coronary artery disease and prior bypass surgery in 2010, patient also had LAD stenting performed in June 2012, hypertension, hyperlipidemia, diabetes, both thyroidism, family history of premature coronary artery disease. He follows with Dr. Nam in the office. He presented to the hospital with symptoms of extreme weakness with associated fever. Fever was up to 102.5 initially. Blood cultures have been negative 2. Patient was initiated on IV antibiotics. A cardiology consultation was initially requested because of abnormal troponins. Troponins were not consistent with acute coronary syndrome, likely secondary to oxygen supply and demand mismatch. EKG showed normal sinus rhythm with nonspecific ST-T abnormalities and Q waves in the inferior leads consistent with old infarct. Patient was seen and examined today, denies any chest pain or difficulty in breathing. Objective - Vital Signs Vital signs: Vital Signs Temp 98.9 F 02/13/17 11:20 Pulse 62 02/13/17 11:20 Resp 18 02/13/17 11:20 BP 154/74 02/13/17 11:20 Pulse Ox 96 02/13/17 11:20 Intake & Output 02/12/17 02/13/17 02/13/17 18:59 06:59 18:59 Intake Total 650 50 360 Output Total 675 Balance 650 -625 360 Weight 83.6 kg 83.3 kg Intake: Intake, IV Titration 50 50 Amount cefTRIAXone 1,000 mg In 50 50 Sodium Chloride 0.9% 50 ml @ 100 mls/hr IVPB Q12HR [facility] Rx#:[id number] Oral 600 360 Output: Urine 675 Other: # Voids 1 0 # Bowel Movements 0 - Exam PHYSICAL EXAMINATION: HEENT: Head is atraumatic, normocephalic. Pupils equal, round. Neck is supple. There is no elevated jugular venous pressure. HEART EXAMINATION: Heart S1 and S2 systolic murmur is heard. CHEST EXAMINATION: Lungs are clear to auscultation and precussion. No chest wall tenderness is noted on palpation or with deep breathing. ABDOMEN: Soft, nontender. Bowel sounds are heard. No organomegaly noted. EXTREMITIES: 2+ peripheral pulses with no evidence of peripheral edema and no calf tenderness noted. NEUROLOGIC patient is awake, alert and oriented -3. . - Labs CBC & Chem 7: 02/11/17 03:56 02/11/17 03:56 Labs: Abnormal Lab Results - Last 24 Hours (Table) 02/12/17 02/12/17 02/13/17 Range/Units 16:46 20:44 11:59 POC Glucose (mg/dL) 261 H 185 H 387 H (75-99) mg/dL Microbiology - Last 24 Hours (Table) 02/10/17 10:29 Blood Culture - Preliminary Blood No Growth after 72 hours 02/10/17 09:24 Blood Culture - Preliminary Blood No Growth after 72 hours Assessment and Plan (1) Hyperlipemia Status: Acute (2) Hx of CABG Status: Acute (3) Elevated troponin Status: Acute (4) Febrile illness Status: Acute (5) Coronary artery disease Status: Acute (6) Diabetes Status: Acute (7) Hypertension Status: Acute Plan: Cardiology's perspective, we will continue current medications. We will follow this patient now with you on an as-needed basis only, please don't hesitate to call with any questions. DNP note has been reviewed, I agree with a documented findings and plan of care. Patient was seen and examined.
--- NOTE | 2017-02-13 15:04 | P.PN ---
Subjective Patient is a 56-year-old male admitted with chief complaint of acute change in mental status associated with some nausea and hyperpyrexia. Patient also had mildly elevated troponin. Upon examination, patient is feeling better. Patient continues to complain of left palmar surface hand pain proximal to leftthumb. Left hand x-ray with evidence of multiple joint space narrowings, subcutaneous calcification and periarticular calcifications. Patient denies nausea, vomiting, weakness, fevers, shortness of breath, chest pain, or abdominal pain. Patient is urinating without difficulty. Patient denies constipation or diarrhea. Patient has been evaluated by cardiology service who feels patient's abnormal troponins are not consistent with acute coronary syndrome. Chest x-ray from 02/13/2017 without acute pulmonary process. Uric acid 7.4. Objective - Vital Signs Vital signs: Vital Signs Temp 98.9 F 02/13/17 11:20 Pulse 62 02/13/17 11:20 Resp 18 02/13/17 11:20 BP 154/74 02/13/17 11:20 Pulse Ox 96 02/13/17 11:20 Intake & Output 02/12/17 02/13/17 02/13/17 18:59 06:59 18:59 Intake Total 650 50 360 Output Total 675 Balance 650 -625 360 Weight 83.6 kg 83.3 kg Intake: Intake, IV Titration 50 50 Amount cefTRIAXone 1,000 mg In 50 50 Sodium Chloride 0.9% 50 ml @ 100 mls/hr IVPB Q12HR [facility] Rx#:[id number] Oral 600 360 Output: Urine 675 Other: # Voids 1 0 # Bowel Movements 0 - Exam GENERAL: Pt awake and alert, sitting on the side of the bed, in no acute distress. HEAD: Atraumatic, normocephalic. EYES: Pupils equal and round. Sclera anicteric, conjunctiva are normal. ENT:Moist mucous membranes. NECK:Supple without lymphadenopathy or JVD. LUNGS: Breath sounds clear throughout lung roldan. HEART: Heart S1, S2, no S3 or S4. Regular irregular rate and rhythm. No murmurs, rubs or gallops. ABDOMEN: Soft, obese, nontender, nondistended, normoactive bowel sounds. No guarding, no rebound. EXTREMITIES: Palpable peripheral pulses. Trace edema to bilateral ankles. No calf tenderness. Tenderness to palmar surface of left hand proximal to thumb. NEUROLOGICAL: Pt oriented x 3. No focal deficits. Decreased sensation to bilateral lower extremities. PSYCH: Cooperative. SKIN: Warm, dry. - Labs CBC & Chem 7: 02/11/17 03:56 02/11/17 03:56 Labs: Abnormal Lab Results - Last 24 Hours (Table) 02/12/17 02/12/17 02/13/17 Range/Units 16:46 20:44 11:59 POC Glucose (mg/dL) 261 H 185 H 387 H (75-99) mg/dL Microbiology - Last 24 Hours (Table) 02/10/17 10:29 Blood Culture - Preliminary Blood No Growth after 72 hours 02/10/17 09:24 Blood Culture - Preliminary Blood No Growth after 72 hours Assessment and Plan Plan: Impression: 1. Acute elevation of troponin, not consistent with acute coronary syndrome. 2. Sepsis, present on admission, with fever of unknown origin and acute metabolic encephalopathy, improved. Final urine culture negative. Preliminary blood cultures after 72 hours with no growth. 3. Left palmar surface hand pain, present on admission, with small ulceration at the tip of second digit of left hand. Uric acid normal at 7.4. 4. Long-standing history of insulin-dependent diabetes. 5. Previous history of myocardial infarction. 6. Previous right hip replacement. 7. 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 8. Previous pneumonia. 9. Previous viremia. 10. Hypertension. 11. Coronary artery disease with three-vessel bypass. 12. Hyperlipidemia. 13. History of systolic heart failure with EF 40-45%. 14. Peripheral neuropathy felt to be combination of degenerative disc disease and diabetes. 15. History of pancreatic mass. 16. History of adrenal adenoma. 17. History of gout. Uric acid level 7.4. Plan: Continue to monitor patient. Continue current medications. Patient has been started on Solu-Medrol 60 mg IV every 12 hours to help reduce left hand pain. Continue supportive treatment and pain management. Continue GI and DVT prophylaxis. Repeat CBC and BMP in a.m. The above impression and plan have been discussed and directed by Dr. Romero. Jewell ANTHONY acting as scribe for Dr. Romero.
[2017-02-13 17:07] LABS: Glucose,Whole Blood 323 mg/dL (75-99)
[2017-02-13 20:59] LABS: Glucose,Whole Blood 224 mg/dL (75-99)
[2017-02-13] MEDS: methylPREDNISolone SOD SUCCI 125 MG/2 ML VIAL IV SCH (22:03)
[2017-02-13] MEDS: ATORVASTATIN 40 MG TAB PO SCH (22:03)
[2017-02-13] MEDS: amLODIPine 5 MG TAB PO SCH (22:03)
[2017-02-13] MEDS: LEVOTHYROXINE 50 MCG TAB PO SCH (22:03)
[2017-02-13] MEDS: MONTELUKAST 10 MG TAB PO SCH (22:03)
[2017-02-13] MEDS: INSULIN GLARGINE 100 UNIT/ML 10 ML VIAL SQ SCH (22:12)
[2017-02-14] MEDS: HYDROcodone/APAP 10-325MG 1 EACH TAB PO PRN ×3 (03:11→12:42)
[2017-02-14 06:21] LABS: Glucose,Whole Blood 295 mg/dL (75-99)
[2017-02-14] MEDS: INSULIN LISPRO (humaLOG) 300 UNIT/3 ML VIAL SQ SCH ×2 (06:43→12:43)
[2017-02-14] MEDS: PANTOPRAZOLE 40 MG TABLET PO SCH (06:44)
[2017-02-14] MEDS: IPRATROPIUM-ALBUTEROL 3 ML NEB INHALATION SCH ×2 (07:22→13:19)
[2017-02-14 07:33] LABS: Anion Gap 11 mmol/L; Blood Urea Nitrogen 31 mg/dL (9-20); Calcium 8.8 mg/dL (8.4-10.2); Carbon Dioxide 27 mmol/L (22-30); Chloride 103 mmol/L (98-107); Glucose 301 mg/dL (74-99); Non-African American GFR(MDRD) >60 (>60 ml/min/1.73 sqM); Potassium 4.1 mmol/L (3.5-5.1); Sodium 141 mmol/L (137-145)
[2017-02-14 08:06] LABS: Basophils % (A) 0 %; CH 26.3; CHCM 31.4; Eosinophils % (A) 0 %; HCT 34.2 % (39.0-53.0); HDW 3.06; HGB 10.9 gm/dL (13.0-17.5); Hypochromasia Moderate; Luc # (Auto) 0.06; Luc % (Auto) 1; Lymphocytes # (A) 0.4 k/uL (1.0-4.8); Lymphocytes % (A) 9 %; MCH 26.9 pg (25.0-35.0); MCHC 31.9 g/dL (31.0-37.0); MCV 84.2 fL (80.0-100.0); Mean Platelet Volume 8.1; Monocytes # (A) 0.1 k/uL (0-1.0); Monocytes % (A) 2 %; Neutrophils % (A) 88 %; RBC 4.06 m/uL (4.30-5.90); RDW 14.6 % (11.5-15.5); WBC 4.6 k/uL (3.8-10.6); WBC (Perox) 4.88
[2017-02-14] MEDS: methylPREDNISolone SOD SUCCI 125 MG/2 ML VIAL IV SCH (10:05)
[2017-02-14] MEDS: OXYMETAZOLINE 0.05% NASL SPRAY 15 ML NASAL SCH (10:06)
[2017-02-14] MEDS: LISINOPRIL 5 MG TAB PO SCH (10:06)
[2017-02-14] MEDS: ASPIRIN 81 MG CHEW PO SCH (10:06)
[2017-02-14] MEDS: HYDROCORTISONE 20 MG TAB PO SCH (10:06)
[2017-02-14] MEDS: GABAPENTIN 400 MG CAP PO SCH ×2 (10:06→12:42)
[2017-02-14 10:46] VITALS: PULSE 61; RESP 16
[2017-02-14 12:10] LABS: Glucose,Whole Blood 364 mg/dL (75-99)
--- NOTE | 2017-02-14 12:14 | P.DS ---
Providers Date of admission: 02/10/17 12:16 Expected date of discharge: 02/14/17 Attending physician: Bautista Romero Consults: 02/10/17 12:14 Consult Physician Urgent Consulting Provider: [facility] Consult Reason/Comments: Elevated troponin, chest pain Do you want consulting provider notified?: Yes 02/12/17 08:45 Consult Physician Urgent Consulting Provider: Bran Hardin Reason/Comments: fever, left hand pain Do you want consulting provider notified?: Yes Primary care physician: Bautista Romero Hospital Course: Patient is a 56-year-old white male, patient of Dr. Romero in the outpatient setting, presenting to the hospital with chief complaint of fevers, generalized weakness, and confusion after rising from falling asleep while sitting on the toilet. Patient was also found to have mildly elevated troponins. Patient was evaluated by cardiology service who felt that patient's abnormal troponins were not consistent with acute coronary syndrome. Patient was admitted to the hospital on IV antibiotics with consult to Dr. Hardin from infectious disease service. Urine culture and preliminary blood cultures after 72 hours without evidence of bacterial growth. During patient's hospital stay, he complained of acute left palmar pain. Patient improved with IV hydration, antibiotics, and conservative treatment. Patient was felt stable for discharge to home with close follow-up in the outpatient setting. Discharge diagnoses: 1. Acute elevation of troponin, not consistent with acute coronary syndrome. 2. Sepsis, present on admission, with fever of unknown origin and acute metabolic encephalopathy, improved. 3. Left palmar surface hand pain, present on admission, with small ulceration at the tip of second digit of left hand. 4. Long-standing history of insulin-dependent diabetes. 5. Previous history of myocardial infarction. 6. Previous right hip replacement. 7. 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 8. Previous pneumonia. 9. Previous viremia. 10. Hypertension. 11. Coronary artery disease with three-vessel bypass. 12. Hyperlipidemia. 13. History of systolic heart failure with EF 40-45%. 14. Peripheral neuropathy felt to be combination of degenerative disc disease and diabetes. 15. History of pancreatic mass. 16. History of adrenal adenoma. 17. History of gout. The above impression and plan have been discussed and directed by Dr. Romero. Jewell ANTHONY acting as scribe for Dr. Romero. Pertinent Studies: EKG; chest x-ray; left hand x-ray Patient Condition at Discharge: Good Plan - Discharge Summary New Discharge Prescriptions: New Cefuroxime Axetil [Cefuroxime] 500 mg PO BID #14 tab Lisinopril [Zestril] 5 mg PO DAILY #30 tab Continue Levothyroxine Sodium [Synthroid] 50 mcg PO HS Omeprazole [PriLOSEC] 20 mg PO BID Nitroglycerin Sl Tabs [Nitrostat] 0.4 mg SUBLINGUAL Q5M PRN PRN Reason: Chest Pain Furosemide [Lasix] 20 mg PO DAILY PRN PRN Reason: Edema amLODIPine [Norvasc] 5 mg PO HS Gabapentin [Neurontin] 800 mg PO QID fentaNYL 25MCG/HR PATCH [Duragesic 25MCG/HR] 1 patch TRANSDERM Q72H HYDROcodone/APAP 10-325MG [[place] 10-325] 1 tab PO Q4HR PRN PRN Reason: Pain Simvastatin [Zocor] 80 mg PO HS Montelukast [Singulair] 10 mg PO HS #30 tab Hydrocortisone [Cortef] 20 mg PO DAILY #30 tab Insulin Glargine,Hum.rec.anlog [Lantus Solostar] 25 unit SQ HS #3 pen Aspirin 81 mg PO DAILY #30 chew Insulin Aspart [NovoLOG Flexpen] See Protocol SQ ACHS Ipratropium-Albuterol Nebulize [Duoneb 0.5 mg-3 mg/3 ml Soln] 3 ml INHALATION RT-TID Multivit-Min/FA/Lycopen/Lutein [Centrum Silver Tablet] 1 tab PO DAILY Discharge Medication List Levothyroxine Sodium [Synthroid] 50 mcg PO HS 02/01/14 [History] Nitroglycerin Sl Tabs [Nitrostat] 0.4 mg SUBLINGUAL Q5M PRN 02/01/14 [History] Omeprazole [PriLOSEC] 20 mg PO BID 02/01/14 [History] Furosemide [Lasix] 20 mg PO DAILY PRN 05/13/15 [History] Gabapentin [Neurontin] 800 mg PO QID 05/13/15 [History] amLODIPine [Norvasc] 5 mg PO HS 05/13/15 [History] HYDROcodone/APAP 10-325MG [[place] 10-325] 1 tab PO Q4HR PRN 07/17/16 [History] Simvastatin [Zocor] 80 mg PO HS 07/17/16 [History] fentaNYL 25MCG/HR PATCH [Duragesic 25MCG/HR] 1 patch TRANSDERM Q72H 07/17/16 [ History] Montelukast [Singulair] 10 mg PO HS #30 tab 11/21/16 [Rx] Hydrocortisone [Cortef] 20 mg PO DAILY #30 tab 12/03/16 [Rx] Insulin Glargine,Hum.rec.anlog [Lantus Solostar] 25 unit SQ HS #3 pen 12/03/16 [ Rx] Aspirin 81 mg PO DAILY #30 chew 12/13/16 [Rx] Insulin Aspart [NovoLOG Flexpen] See Protocol SQ ACHS 02/10/17 [History] Ipratropium-Albuterol Nebulize [Duoneb 0.5 mg-3 mg/3 ml Soln] 3 ml INHALATION RT -TID 02/10/17 [History] Multivit-Min/FA/Lycopen/Lutein [Centrum Silver Tablet] 1 tab PO DAILY 02/10/17 [ History] Cefuroxime Axetil [Cefuroxime] 500 mg PO BID #14 tab 02/14/17 [Rx] Lisinopril [Zestril] 5 mg PO DAILY #30 tab 02/14/17 [Rx] Follow up Appointment(s)/Referral(s): Enedina Nam MD [STAFF PHYSICIAN] - 3 Weeks Bautista Romero MD [Primary Care Provider] - 1-2 days Discharge Disposition: HOME SELF-CARE
[2017-02-14] MEDS: LEVOFLOXACIN 750 MG TAB PO SCH (12:43)
[2017-02-14] MEDS: MULTIVITAMINS, THERA 1 EACH TAB PO SCH (12:43)
[2017-02-14 13:16] VITALS: BP 144/81; TEMP 98.9
== END 2017-02-14 15:02 | disposition home or self-care (01) | DRG 871 ==
LOC: EC 09:04 → 6SEL 12:16 → UNDODISIN 02-13 12:45
PROVIDERS: ADMIT Family Medicine; ATTEND Family Medicine
DX: A41.9 Sepsis, unspecified organism (principal); G93.41 Metabolic encephalopathy; E87.2 Acidosis; I11.0 Hypertensive heart disease with heart failure; I50.22 Chronic systolic (congestive) heart failure; E11.42 Type 2 diabetes mellitus with diabetic polyneuropathy; E78.5 Hyperlipidemia, unspecified; I25.10 Atherosclerotic heart disease of native coronary artery without angina pectoris; I25.2 Old myocardial infarction; M10.9 Gout, unspecified; Z79.4 Long term (current) use of insulin; Z79.82 Long term (current) use of aspirin; Z79.899 Other long term (current) drug therapy; Z80.1 Family history of malignant neoplasm of trachea, bronchus and lung; Z80.3 Family history of malignant neoplasm of breast; Z82.49 Family history of ischemic heart disease and other diseases of the circulatory system; Z85.828 Personal history of other malignant neoplasm of skin; Z86.14 Personal history of Methicillin resistant Staphylococcus aureus infection; Z87.01 Personal history of pneumonia (recurrent); Z87.440 Personal history of urinary (tract) infections; Z87.891 Personal history of nicotine dependence; Z95.1 Presence of aortocoronary bypass graft; Z95.5 Presence of coronary angioplasty implant and graft; Z96.641 Presence of right artificial hip joint
CPT/HCPCS: 36415; 71020; 80048; 80053; 80061; 81001; 81003; 82550; 82553; 83036; 83605; 84484; 84550; 85025; 85610; 85730; 87040; 87086; 87502; 93005; 94640; 94760

== ENCOUNTER 2017-04-08 12:00 | Inpatient (IN) | payer MEDICARE ==
[2017-04-08] MEDS ORDERED: ACETAMINOPHEN TAB 500 MG TAB PO PRN (16:28)
[2017-04-08] MEDS ORDERED: IV VANCOMYCIN PER PHARMACY 1 EACH MISC MISCELLANE PRN (16:29)
[2017-04-08] MEDS ORDERED: NITROGLYCERIN SL TABS 0.4 MG TAB SUBLINGUAL PRN (16:31)
[2017-04-08] MEDS ORDERED: FUROSEMIDE 20 MG TAB PO PRN (16:31)
[2017-04-08 16:50] LABS: Glucose,Whole Blood 521 mg/dL (75-99)
[2017-04-08 16:50] LABS: Glucose,Whole Blood 352 mg/dL (75-99)
[2017-04-08] MEDS ORDERED: VANCOMYCIN 1,500 MG in SODIUM CHLORIDE 0.9% 250 ML IVPB ONE (17:30)
[2017-04-08 17:34] LABS: Anisocytosis Slight; Basophils % (A) 0 %; CH 25.4; CHCM 30.3; Eosinophils # (A) 0.1 k/uL (0-0.7); Eosinophils % (A) 1 %; HCT 35.3 % (39.0-53.0); HDW 2.84; HGB 10.8 gm/dL (13.0-17.5); Hypochromasia Marked; Luc % (Auto) 4; Lymphocytes % (A) 14 %; MCH 25.7 pg (25.0-35.0); MCHC 30.7 g/dL (31.0-37.0); Mean Platelet Volume 7.9; Monocytes # (A) 0.5 k/uL (0-1.0); Monocytes % (A) 7 %; Neutrophils # (A) 5.3 k/uL (1.3-7.7); Neutrophils % (A) 74 %; RBC 4.21 m/uL (4.30-5.90); WBC 7.2 k/uL (3.8-10.6); WBC (Perox) 7.48
[2017-04-08 17:59] LABS: ALT 50 U/L (21-72); AST 49 U/L (17-59); Alkaline Phosphatase 82 U/L (38-126); Anion Gap 12 mmol/L; Blood Urea Nitrogen 33 mg/dL (9-20); Calcium 8.8 mg/dL (8.4-10.2); Carbon Dioxide 28 mmol/L (22-30); Chloride 100 mmol/L (98-107); Glucose 322 mg/dL (74-99); Non-African American GFR(MDRD) >60 (>60 ml/min/1.73 sqM); Potassium 3.9 mmol/L (3.5-5.1); Sodium 140 mmol/L (137-145); Total Bilirubin 0.6 mg/dL (0.2-1.3); Total Protein 5.9 g/dL (6.3-8.2)
--- NOTE | 2017-04-08 18:06 | XR ---
EXAMINATION TYPE: XR tibia fibula RT, XR foot complete RT, XR ankle complete RT DATE OF EXAM: 04/08/2017 CLINICAL HISTORY: Swelling and redness, history diabetes. TECHNIQUE: Two views of the right leg are obtained. 3 views of right ankle 3 views right foot are ac quired. COMPARISON: None. FINDINGS: Osseous structures are demineralized which is noted lower radiographic sensitivity. There i s no acute fracture or dislocation seen in the right tibia or fibula. There is moderate joint space l oss and spurring medial and lateral tibiofemoral compartments. There is mild to moderate diffuse subc utaneous edema seen. Vascular calcification is present. Surgical clips medially and posteriorly are i dentified. There are punctate soft tissue densities diffusely identified possible multilevel phleboli ths. No fracture or dislocation in right ankle is present. There is moderate to severe diffuse soft tissue swelling. There are innumerable soft tissue calcifications. Ankle mortise is slightly narrowed media lly. 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 There is prominent spurring and joint space loss anterior halo navicular articulation. There are superior and inferior calcaneal spurs. There is ossi fication along the distal Achilles tendon. Demineralization is present. Innumerable soft tissue calcifications also make evaluation suboptimal. Diffuse soft tissue swelling is seen. There may be old healed fractures of the metatarsal heads and p roximal phalanxes. There is joint space loss first metatarsophalangeal joint. Midfoot spurring and yoan int space loss is present IMPRESSION: There is soft tissue swelling and extensive soft tissue calcifications likely reflecting chronic venous stasis. This along with demineralization makes evaluation for osseous structures subop timal. Diffuse degenerative changes are present, suspect DJD and Charcot-type arthropathy. No convinc ing radiographic evidence for acute osteomyelitis. If suspicion persists further investigation three- phase bone scan or MRI may be warranted.
[2017-04-08] MEDS: INSULIN LISPRO (humaLOG) 300 UNIT/3 ML VIAL SQ SCH ×2 (18:18→21:07)
[2017-04-08] MEDS: HYDROcodone/APAP 10-325MG 1 EACH TAB PO PRN (18:21)
[2017-04-08] MEDS: GABAPENTIN 400 MG CAP PO SCH ×2 (18:21→21:07)
[2017-04-08] MEDS: PANTOPRAZOLE 40 MG TABLET PO SCH (18:22)
[2017-04-08 18:40] LABS: Appearance,Urine Clear (Clear); Bilirubin,Urine Negative (Negative); Glucose,Urine (UA) 4+ (Negative); Ketones,Urine Negative (Negative); Leukocyte Esterase,Urine Negative (Negative); Nitrite,Urine Negative (Negative); Particle Count 600; Protein,Urine 1+ (Negative); RBC,Urine 3 /hpf (0-5); Specific Gravity,Urine 1.014 (1.001-1.035); UA Billing (MACRO vs. MICRO) MICRO; WBC,Urine 2 /hpf (0-5)
[2017-04-08 18:48] LABS: Erythrocyte Sedimentation Rate 77 mm/hr (0-15); Hemoglobin A1C 10.6 % (4.2-6.1)
[2017-04-08] MEDS: INSULIN GLARGINE 100 UNIT/ML 10 ML VIAL SQ SCH (21:07)
[2017-04-08] MEDS: MONTELUKAST 10 MG TAB PO SCH (21:07)
[2017-04-08] MEDS: ATORVASTATIN 40 MG TAB PO SCH (21:07)
[2017-04-08] MEDS: ASPIRIN 81 MG CHEW PO SCH (21:08)
[2017-04-08] MEDS: amLODIPine 5 MG TAB PO SCH (21:08)
[2017-04-08 21:11] LABS: Glucose,Whole Blood 300 mg/dL (75-99)
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
[2017-04-08] MEDS: LEVOTHYROXINE 50 MCG TAB PO SCH (23:39)
[2017-04-09] MEDS: ceFAZolin 2 GM in SODIUM CHLORIDE 0.9% 100 ML IVPB SCH ×4 (01:16→23:28)
[2017-04-09] MEDS: VANCOMYCIN 1,500 MG in SODIUM CHLORIDE 0.9% 250 ML IVPB SCH ×2 (05:39→17:15)
[2017-04-09] MEDS: HYDROcodone/APAP 10-325MG 1 EACH TAB PO PRN (07:20)
[2017-04-09 07:41] LABS: Glucose,Whole Blood 135 mg/dL (75-99)
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
[2017-04-09] MEDS: GABAPENTIN 400 MG CAP PO SCH ×4 (08:12→20:02)
[2017-04-09] MEDS: HYDROCORTISONE 20 MG TAB PO SCH (08:12)
[2017-04-09] MEDS: PANTOPRAZOLE 40 MG TABLET PO SCH ×2 (08:12→17:15)
[2017-04-09] MEDS: LISINOPRIL 5 MG TAB PO SCH (08:12)
[2017-04-09] MEDS: INSULIN LISPRO (humaLOG) 300 UNIT/3 ML VIAL SQ SCH ×4 (08:13→21:17)
--- NOTE | 2017-04-09 08:56 | US ---
EXAMINATION TYPE: US venous doppler duplex LE RT DATE OF EXAM: 04/09/2017 7:54 AM COMPARISON: 11/29/2016 CLINICAL HISTORY: 56-year-old male DVT. Right leg edema and pain x 2 days. SIDE PERFORMED: Right TECHNIQUE: The lower extremity deep venous system is examined utilizing real time linear array sonog jeanna with graded compression, doppler sonography and color-flow sonography. FINDINGS: VESSELS IMAGED: External Iliac Vein (EIV) Common Femoral Vein Deep Femoral Vein Greater Saphenous Vein * Femoral Vein Popliteal Vein Small Saphenous Vein * Proximal Calf Veins (* superficial vessels) Right Leg: No evidence of DVT IMPRESSION: No evidence for DVT within the right lower extremity imaged from the groin to the upper calf.
[2017-04-09 09:24] LABS: Anion Gap 8 mmol/L; Blood Urea Nitrogen 22 mg/dL (9-20); Calcium 9.1 mg/dL (8.4-10.2); Carbon Dioxide 33 mmol/L (22-30); Chloride 101 mmol/L (98-107); Glucose 175 mg/dL (74-99); Non-African American GFR(MDRD) >60 (>60 ml/min/1.73 sqM); Potassium 3.8 mmol/L (3.5-5.1); Sodium 142 mmol/L (137-145)
[2017-04-09] MEDS: HYDROcodone/APAP 10-325MG 1 EACH TAB PO SCH ×4 (11:01→23:28)
[2017-04-09] MEDS: MULTIVITAMINS, THERA 1 EACH TAB PO SCH (11:01)
[2017-04-09 12:49] LABS: Glucose,Whole Blood 246 mg/dL (75-99)
[2017-04-09] MEDS: HYDROmorphone 1 MG/ML 1 ML SYRINGE IVP PRN ×2 (15:18→21:16)
[2017-04-09 15:37] VITALS: BMI 29.8
--- NOTE | 2017-04-09 17:02 | PN ---
My dictation from yesterday for H&P is still not on the computer. This is a 56- year-old white male that came in with severe pain in his right lower leg with swelling and erythema. He has longstanding history of diabetes, hypertension, coronary artery disease, ( ). There is no doubt about the evidence of cellulitis and is placed in the hospital accordingly. His laboratory from yesterday showed white count of only 7.2, hemoglobin of 9.8. Glucose is very elevated and was treated accordingly. Creatinine was 1.2 and BUN 33. REVIEW OF SYSTEMS: CARDIOPULMONARY: No shortness of breath or chest pain. No orthopnea or paroxysmal nocturnal dyspnea. GI: No hematemesis, melena, hematochezia. : He has good urination. He does have some problems with BPH. NEUROMUSCULAR: Lower leg swelling on the right, some break on the skin. Patient has already been seen by Dr. Hardin. PSYCHIATRIC: Patient has a history of some depression and also anxiety is well controlled at this period of time. PHYSICAL EXAMINATION: This a.m. the patient is alert with having a fair amount of pain in his right leg. Blood pressure is 146/74, heart rate is in the 80s, temperature is 101, respiratory rate is 19. EYES: Pupils are equal, round and reactive to light and accommodation. ENT show tympanic membranes and pharynx to be negative. Neck is supple and with midline trachea. Chest is essentially clear to auscultation. Heart is sinus rhythm. No murmur. Abdomen is soft, nontender with no organomegaly. Right lower leg swelling and erythema is present. Review of medications: [place] is 10/325 and he gets it every 4 hours for pain, Norvasc 5, aspirin 81, Lipitor 40, Fentanyl patch 25 mg transdermal, Lasix 20, Neurontin 800 four times a day, Cortef 20 daily, insulin Lantus 25 at bedtime, insulin to scale, thyroid 0.5 mg daily, lisinopril 5 mg daily, Singulair 10, Theragran 1, Protonix is 40 b.i.d. He is on vancomycin 1 gram initially and then patient has been treated accordingly with cephalexin 2 grams every 8 hours. ASSESSMENT: 1. Right leg cellulitis, rule out deep venous thrombosis. 2. History of insulin dependent diabetes. 3. Hypertension. 4. Coronary artery disease. 5. Hyperlipidemia. 6. Severe osteoarthritis. 7. Lumbar degenerative disc disease. 8. Previous histories of multiple pneumonias in the past with admissions. 9. Pancreatic mass being watched by Dr. Jones. At this time will continue with IV antibiotics. Wait for the DVT evaluation via Doppler. Increase medication for pain. MTDD
[2017-04-09 17:48] LABS: Glucose,Whole Blood 347 mg/dL (75-99)
[2017-04-09] MEDS: ATORVASTATIN 40 MG TAB PO SCH (20:02)
[2017-04-09] MEDS: ASPIRIN 81 MG CHEW PO SCH (20:02)
[2017-04-09] MEDS: MONTELUKAST 10 MG TAB PO SCH (20:02)
[2017-04-09] MEDS: LEVOTHYROXINE 50 MCG TAB PO SCH (20:02)
[2017-04-09] MEDS: amLODIPine 5 MG TAB PO SCH (20:02)
[2017-04-09 21:14] LABS: Glucose,Whole Blood 253 mg/dL (75-99)
[2017-04-09] MEDS: INSULIN GLARGINE 100 UNIT/ML 10 ML VIAL SQ SCH (21:21)
--- NOTE | 2017-04-09 22:34 | P.PN ---
Subjective Principal diagnosis: Cellulitis 56-year-old male well known to the infectious disease service for his many recent admissions regarding bouts of sepsis-like events. There was concerns to difficulties with acidosis related to his medications. With medication adjustments she's been doing quite well. His gout has been under good control. Psoriatic the sudden onset of pain and swelling to his right lower extremity. Is also having some edema to his left leg but not nearly as significant as to the right. Recalls no specific trauma or injury to the right lower extremity. He does have some mild chronic edema issues that he tries to control with some stockings. Had a sudden severe swelling erythema pain and low-grade fever that started. We sought medical therapy. It is a long-standing history of diabetes mellitus with poor control over time. Try to have improved over the last several months. He is at this time denying further fever chill a regular period but does feel poorly and weak to the significant swelling erythema and discomfort of the right limb. Duplexes been performed with no evidence of deep venous thrombosis. Patient feels somewhat better today. Objective - Vital Signs Vital signs: Vital Signs Temp 98.3 F 04/09/17 15:00 Pulse 69 04/09/17 15:00 Resp 19 04/09/17 15:00 BP 169/74 04/09/17 15:00 Pulse Ox 98 04/09/17 15:00 Intake & Output 04/09/17 04/09/17 04/10/17 06:59 18:59 06:59 Intake Total 480 Balance 480 Weight 83.915 kg Intake: Oral 480 Other: Voiding Method Toilet Toilet # Voids 1 3 # Bowel Movements 0 - Exam 56-year-old male who has complaints complains of generalized fatigue and malaise and body aches HEENT: Anicteric conjunctiva are pink and moist nasal mucosa grossly intact without significant lesions, there is no thrush. Mucosa dry Neck: The neck is supple without significant lymphadenopathy or thyromegaly. Lungs: Good bilateral air entry without significant crackles or wheezes are heard There is no significant bronchial sounds. There is no egophony or dullness. Heart: Irregular with an audible S1 and S2 no S3 soft S4 no murmur click or rub. Abdomen: Positive bowel sounds soft and nontender without palpable masses or organomegaly. There was no guarding or rebound. Extremities: The left upper extremity shows evidence of some changes of the hand from his prior infection. No erythema crepitus or fluctuance. No difficulties of range of motion of the index finger or thumb. the right wrist reveals evidence of the prior surgical intervention. The extensive prior wound has healed. No evidence of any erythema or tenderness at that site. left lower extremity has some edema. Right lower extremity shows evidence of extensive edema with intense erythema from the dorsum of the foot to just below the knee. It is quite tender to touch. There is distinct warmth no open lesions are seen. Skin however is very dry with cracks especially in the feet. no distinct fungal infection is seen. Skin: Area of ulceration to the buttocks has healed There is no epitrochlear or axillary lymphadenopathy. No other lymphadenopathy is noted. Neuro: Awake alert oriented to person place and time. There are no acute new gross focal sensory motor deficits. - Labs CBC & Chem 7: 04/08/17 17:21 04/09/17 08:42 Labs: Abnormal Lab Results - Last 24 Hours (Table) 04/09/17 04/09/17 04/09/17 Range/Units 07:26 08:42 12:40 Carbon Dioxide 33 H (22-30) mmol/L BUN 22 H (9-20) mg/dL Glucose 175 H (74-99) mg/dL POC Glucose (mg/dL) 135 H 246 H (75-99) mg/dL 04/09/17 04/09/17 Range/Units 17:24 21:12 Carbon Dioxide (22-30) mmol/L BUN (9-20) mg/dL Glucose (74-99) mg/dL POC Glucose (mg/dL) 347 H 253 H (75-99) mg/dL Microbiology - Last 24 Hours (Table) 04/08/17 18:02 Blood Culture - Preliminary Blood No Growth after 24 hours 04/08/17 17:21 Blood Culture - Preliminary Blood No Growth after 24 hours 04/08/17 18:27 Urine Culture - Preliminary Urine,Clean Catch Laboratory Results WBC 7.2 k/uL (3.8-10.6) 04/08/17 17:21 RBC 4.21 m/uL (4.30-5.90) L 04/08/17 17:21 Hgb 10.8 gm/dL (13.0-17.5) L 04/08/17 17:21 Hct 35.3 % (39.0-53.0) L 04/08/17 17:21 MCV 84.0 fL (80.0-100.0) 04/08/17 17:21 MCH 25.7 pg (25.0-35.0) 04/08/17 17:21 MCHC 30.7 g/dL (31.0-37.0) L 04/08/17 17:21 RDW 16.0 % (11.5-15.5) H 04/08/17 17:21 Plt Count 217 k/uL (150-450) 04/08/17 17:21 Neutrophils % 74 % 04/08/17 17:21 Lymphocytes % 14 % 04/08/17 17:21 Monocytes % 7 % 04/08/17 17:21 Eosinophils % 1 % 04/08/17 17:21 Basophils % 0 % 04/08/17 17:21 Neutrophils # 5.3 k/uL (1.3-7.7) 04/08/17 17:21 Lymphocytes # 1.0 k/uL (1.0-4.8) 04/08/17 17:21 Monocytes # 0.5 k/uL (0-1.0) 04/08/17 17:21 Eosinophils # 0.1 k/uL (0-0.7) 04/08/17 17:21 Basophils # 0.0 k/uL (0-0.2) 04/08/17 17:21 Hypochromasia Marked 04/08/17 17:21 Anisocytosis Slight 04/08/17 17:21 ESR 77 mm/hr (0-15) H 04/08/17 17:21 Sodium 142 mmol/L (137-145) 04/09/17 08:42 Potassium 3.8 mmol/L (3.5-5.1) 04/09/17 08:42 Chloride 101 mmol/L (98-107) 04/09/17 08:42 Carbon Dioxide 33 mmol/L (22-30) H 04/09/17 08:42 Anion Gap 8 mmol/L 04/09/17 08:42 BUN 22 mg/dL (9-20) H 04/09/17 08:42 Creatinine 0.87 mg/dL (0.66-1.25) 04/09/17 08:42 Est GFR (MDRD) Af Amer >60 (>60 ml/min/1.73 sqM) 04/09/17 08:42 Est GFR (MDRD) Non-Af >60 (>60 ml/min/1.73 sqM) 04/09/17 08:42 Glucose 175 mg/dL (74-99) H 04/09/17 08:42 POC Glucose (mg/dL) 253 mg/dL (75-99) H 04/09/17 21:12 POC Glu [employer] Agent ID Kathia Isabel 04/09/17 21:[address] Glu mg/dL 258 mg/dL 04/08/17 17:21 Hemoglobin A1c 10.6 % (4.2-6.1) H 04/08/17 17:21 Plasma Lactic Acid Freddy 1.1 mmol/L (0.7-2.0) 04/08/17 17:21 Calcium 9.1 mg/dL (8.4-10.2) 04/09/17 08:42 Total Bilirubin 0.6 mg/dL (0.2-1.3) 04/08/17 17:21 AST 49 U/L (17-59) 04/08/17 17:21 ALT 50 U/L (21-72) 04/08/17 17:21 Alkaline Phosphatase 82 U/L (38-126) 04/08/17 17:21 Total Protein 5.9 g/dL (6.3-8.2) L 04/08/17 17:21 Albumin 3.1 g/dL (3.5-5.0) L 04/08/17 17:21 Urine Color Yellow 04/08/17 18:27 Urine Appearance Clear (Clear) 04/08/17 18:27 Urine pH 6.0 (5.0-8.0) 04/08/17 18:27 Ur Specific [place] 1.014 (1.001-1.035) 04/08/17 18:27 Urine Protein 1+ (Negative) H 04/08/17 18:27 Urine Glucose (UA) 4+ (Negative) H 04/08/17 18:27 Urine Ketones Negative (Negative) 04/08/17 18:27 Urine Blood Small (Negative) H 04/08/17 18:27 Urine Nitrite Negative (Negative) 04/08/17 18:27 Urine Bilirubin Negative (Negative) 04/08/17 18:27 Urine Urobilinogen 2.0 mg/dL (<2.0) 04/08/17 18:27 Ur Leukocyte Esterase Negative (Negative) 04/08/17 18:27 Urine RBC 3 /hpf (0-5) 04/08/17 18:27 Urine WBC 2 /hpf (0-5) 04/08/17 18:27 Hyaline Casts 10 /lpf (0-2) H 04/08/17 18:27 Microbiology 04/08/17 18:02 Blood Blood Culture - Preliminary No Growth after 24 hours 04/08/17 17:21 Blood Blood Culture - Preliminary No Growth after 24 hours 04/08/17 18:27 Urine,Clean Catch Urine Culture - Preliminary Assessment and Plan (1) Diabetes mellitus type 2 with complications Status: Acute (2) Cellulitis of right leg Narrative/Plan: 56-year-old male presents to hospital with the sudden onset of pain swelling and erythema to the right lower extremity. Most of and trauma has occurred. With his history he was very concerning [place] sought care at the hospital. Patient is evidence of the extensive cephalized the right lower extremity. Portal of entry to be the dry cracked skin of the foot. Some Silvadene will be applied and wrapped in place. Duplex of requested and should there is no deep venous thrombosis. Antibiotic therapy with vancomycin has been begun. Ancef is also added while cultures are pending. Elevation and rest is helpful. Continue the multivitamin and treatment of his multiple underlying medical conditions. May need more diuretic therapy to help with his significant edema. Assessment lettuces improved today. We'll be able to now apply some Silvadene wrap the leg since the duplex is negative for deep venous thrombosis. The very dry cracked skin to his foot and lower leg is a likely portal of entry for the significant infection. Plan Anaprox therapy intravenously chilies improved and then will transition to oral antibiotic therapy. Needs improved glucose control to help him prevent further infections in the future. Status: Acute
[2017-04-10] MEDS: HYDROcodone/APAP 10-325MG 1 EACH TAB PO SCH ×6 (04:40→23:18)
[2017-04-10] MEDS ORDERED: VANCOMYCIN TROUGH DUE 1 EACH MISC MISCELLANE ONE (05:00)
[2017-04-10] MEDS: VANCOMYCIN 1,500 MG in SODIUM CHLORIDE 0.9% 250 ML IVPB SCH ×2 (05:29→17:37)
[2017-04-10 06:04] LABS: Anion Gap 9 mmol/L; Blood Urea Nitrogen 20 mg/dL (9-20); Carbon Dioxide 32 mmol/L (22-30); Chloride 101 mmol/L (98-107); Glucose 101 mg/dL (74-99); Non-African American GFR(MDRD) >60 (>60 ml/min/1.73 sqM); Potassium 3.7 mmol/L (3.5-5.1); Sodium 142 mmol/L (137-145)
[2017-04-10 07:32] LABS: Glucose,Whole Blood 121 mg/dL (75-99)
[2017-04-10] MEDS: INSULIN LISPRO (humaLOG) 300 UNIT/3 ML VIAL SQ SCH ×4 (07:49→21:07)
[2017-04-10] MEDS: HYDROCORTISONE 20 MG TAB PO SCH (09:16)
[2017-04-10] MEDS: PANTOPRAZOLE 40 MG TABLET PO SCH ×2 (09:16→17:52)
[2017-04-10] MEDS: GABAPENTIN 400 MG CAP PO SCH ×4 (09:16→20:31)
[2017-04-10] MEDS: LISINOPRIL 5 MG TAB PO SCH (09:16)
[2017-04-10] MEDS: ceFAZolin 2 GM in SODIUM CHLORIDE 0.9% 100 ML IVPB SCH ×3 (09:20→23:18)
[2017-04-10] MEDS: HYDROmorphone 1 MG/ML 1 ML SYRINGE IVP PRN ×2 (09:21→21:06)
[2017-04-10] MEDS ORDERED: methylPREDNISolone SOD SUCCI 40 MG/ML 1 ML VIAL IV STA (10:17)
[2017-04-10 11:34] LABS: Glucose,Whole Blood 286 mg/dL (75-99)
[2017-04-10] MEDS: MULTIVITAMINS, THERA 1 EACH TAB PO SCH (12:51)
--- NOTE | 2017-04-10 16:39 | PN ---
The patient is doing better today. Still has some swelling of his right leg, a fair amount of discomfort. His night was basically uneventful with no shortness of breath or chest pain. A consultation was completed with Dr. Hardin, please refer to his report. Venous Doppler was also completed which was negative. At this point, on review of systems: Cardiopulmonary: No shortness of breath. No chest pain. No orthopnea. No paroxysmal nocturnal dyspnea. GI: No hematemesis, melena or hematochezia. : Good urination. BPH is within normal limits. Neuromuscular: Lower leg swelling on the right. Some break in the skin. The patient has already had antibiotics and topical care started. Psychiatric: The patient has some depression and anxiety over control of his pain at this period of time . Integumentary is just the changes in his skin with erythema on his left leg. PHYSICAL EXAMINATION: Vital signs: Blood pressure 127/67. Heart rate is in the 90s. Respiratory rate is 16. Temperature is 97.4. Eyes: Pupils are equal , round and reactive to light and accommodation. ENT: Tympanic membranes and pharynx to be negative. Neck is supple with midline trachea. Chest essentially clear to auscultation. Heart is sinus rhythm. No murmurs. Abdomen soft, nontender. No organomegaly. No masses. Left lower leg was swollen. A fair amount of erythema. Some pain to palpitations. Minimal amount of weeping. Decreased pulses bilaterally. Psychiatric: The patient is depressed to be in the hospital but better mood than yesterday. Anxiety is relieved with pain control. Labs: Sodium 142, potassium 3.7, creatinine 0.8. Blood sugars are insulin to scale weight based. ASSESSMENT: 1. Right lower leg cellulitis. Negative deep venous thrombosis. 2. Insulin dependent diabetes mellitus. 3. Hypertension. 4. Longstanding coronary artery disease. 5. Bypass surgery. 6. Hyperlipidemia. 7. Severe osteoarthritis. 8. Lumbar degenerative disc disease. 9. Previous history of multiple pneumonias in the past with multiple admissions. 10. Pancreas mass being watched by ( ) at [facility]. PLAN: Continue IV antibiotics, pain control. Elevation, care of the left lower leg including cleaning and use of Silvadene cream. Refer to my orders. [facility]USPatricia
[2017-04-10 17:36] LABS: Glucose,Whole Blood 410 mg/dL (75-99)
[2017-04-10] MEDS: amLODIPine 5 MG TAB PO SCH (20:30)
[2017-04-10] MEDS: ASPIRIN 81 MG CHEW PO SCH (20:30)
[2017-04-10] MEDS: ATORVASTATIN 40 MG TAB PO SCH (20:30)
[2017-04-10] MEDS: LEVOTHYROXINE 50 MCG TAB PO SCH (20:30)
[2017-04-10] MEDS: MONTELUKAST 10 MG TAB PO SCH (20:30)
[2017-04-10 20:46] LABS: Glucose,Whole Blood 386 mg/dL (75-99)
[2017-04-10] MEDS: INSULIN GLARGINE 100 UNIT/ML 10 ML VIAL SQ SCH (21:07)
[2017-04-10] MEDS ORDERED: HYDROmorphone 2 MG/ML 1 ML SYRINGE IVP STA (21:08)
--- NOTE | 2017-04-10 21:11 | P.PN ---
Subjective Principal diagnosis: Cellulitis 56-year-old male well known to the infectious disease service for his many recent admissions regarding bouts of sepsis-like events. There was concerns to difficulties with acidosis related to his medications. With medication adjustments she's been doing quite well. His gout has been under good control. Psoriatic the sudden onset of pain and swelling to his right lower extremity. Is also having some edema to his left leg but not nearly as significant as to the right. Recalls no specific trauma or injury to the right lower extremity. He does have some mild chronic edema issues that he tries to control with some stockings. Had a sudden severe swelling erythema pain and low-grade fever that started. We sought medical therapy. It is a long-standing history of diabetes mellitus with poor control over time. Try to have improved over the last several months. He is at this time denying further fever chill a regular period but does feel poorly and weak to the significant swelling erythema and discomfort of the right limb. Duplexes been performed with no evidence of deep venous thrombosis. Patient was feeling better. But now having severe pains the bilateral lower extremities. He is unclear the etiology. The wrap does not cause any increased pain. The pain did not start until late in the day today. He is unwilling miserable at this time. Objective - Vital Signs Vital signs: Vital Signs Temp 97.8 F 04/10/17 15:00 Pulse 77 04/10/17 15:00 Resp 16 04/10/17 15:00 BP 136/74 04/10/17 15:00 Pulse Ox 97 04/10/17 15:00 Intake & Output 04/10/17 04/10/17 04/11/17 06:59 18:59 06:59 Intake Total 700 150 Balance 700 150 Intake: Oral 700 150 Other: Voiding Method Toilet # Voids 2 3 # Bowel Movements 2 - Exam 56-year-old male who has complaints complains of generalized fatigue and malaise and body aches HEENT: Anicteric conjunctiva are pink and moist nasal mucosa grossly intact without significant lesions, there is no thrush. Mucosa dry Neck: The neck is supple without significant lymphadenopathy or thyromegaly. Lungs: Good bilateral air entry without significant crackles or wheezes are heard There is no significant bronchial sounds. There is no egophony or dullness. Heart: Irregular with an audible S1 and S2 no S3 soft S4 no murmur click or rub. Abdomen: Positive bowel sounds soft and nontender without palpable masses or organomegaly. There was no guarding or rebound. Extremities: The left upper extremity shows evidence of some changes of the hand from his prior infection. No erythema crepitus or fluctuance. No difficulties of range of motion of the index finger or thumb. the right wrist reveals evidence of the prior surgical intervention. The extensive prior wound has healed. No evidence of any erythema or tenderness at that site. left lower extremity has some edema. Right lower extremity shows evidence of improvement of the edema with the wrap. Erythema is improved. Still very tender to touch. There is distinct warmth no open lesions are seen. Skin however is very dry with cracks especially in the feet. no distinct fungal infection is seen. Skin: Area of ulceration to the buttocks has healed There is no epitrochlear or axillary lymphadenopathy. No other lymphadenopathy is noted. Neuro: Awake alert oriented to person place and time. There are no acute new gross focal sensory motor deficits. - Labs CBC & Chem 7: 04/08/17 17:21 04/10/17 05:16 Labs: Abnormal Lab Results - Last 24 Hours (Table) 04/09/17 04/10/17 04/10/17 Range/Units 21:12 05:16 07:23 Carbon Dioxide 32 H (22-30) mmol/L Glucose 101 H (74-99) mg/dL POC Glucose (mg/dL) 253 H 121 H (75-99) mg/dL 04/10/17 04/10/17 04/10/17 Range/Units 11:32 17:26 20:43 Carbon Dioxide (22-30) mmol/L Glucose (74-99) mg/dL POC Glucose (mg/dL) 286 H 410 H 386 H (75-99) mg/dL Microbiology - Last 24 Hours (Table) 04/08/17 18:02 Blood Culture - Preliminary Blood No Growth after 48 hours 04/08/17 17:21 Blood Culture - Preliminary Blood No Growth after 48 hours 04/08/17 18:27 Urine Culture - Final Urine,Clean Catch Laboratory Results WBC 7.2 k/uL (3.8-10.6) 04/08/17 17:21 RBC 4.21 m/uL (4.30-5.90) L 04/08/17 17:21 Hgb 10.8 gm/dL (13.0-17.5) L 04/08/17 17:21 Hct 35.3 % (39.0-53.0) L 04/08/17 17:21 MCV 84.0 fL (80.0-100.0) 04/08/17 17:21 MCH 25.7 pg (25.0-35.0) 04/08/17 17:21 MCHC 30.7 g/dL (31.0-37.0) L 04/08/17 17:21 RDW 16.0 % (11.5-15.5) H 04/08/17 17:21 Plt Count 217 k/uL (150-450) 04/08/17 17:21 Neutrophils % 74 % 04/08/17 17:21 Lymphocytes % 14 % 04/08/17 17:21 Monocytes % 7 % 04/08/17 17:21 Eosinophils % 1 % 04/08/17 17:21 Basophils % 0 % 04/08/17 17:21 Neutrophils # 5.3 k/uL (1.3-7.7) 04/08/17 17:21 Lymphocytes # 1.0 k/uL (1.0-4.8) 04/08/17 17:21 Monocytes # 0.5 k/uL (0-1.0) 04/08/17 17:21 Eosinophils # 0.1 k/uL (0-0.7) 04/08/17 17:21 Basophils # 0.0 k/uL (0-0.2) 04/08/17 17:21 Hypochromasia Marked 04/08/17 17:21 Anisocytosis Slight 04/08/17 17:21 ESR 77 mm/hr (0-15) H 04/08/17 17:21 Sodium 142 mmol/L (137-145) 04/10/17 05:16 Potassium 3.7 mmol/L (3.5-5.1) 04/10/17 05:16 Chloride 101 mmol/L (98-107) 04/10/17 05:16 Carbon Dioxide 32 mmol/L (22-30) H 04/10/17 05:16 Anion Gap 9 mmol/L 04/10/17 05:16 BUN 20 mg/dL (9-20) 04/10/17 05:16 Creatinine 0.80 mg/dL (0.66-1.25) 04/10/17 05:16 Est GFR (MDRD) Af Amer >60 (>60 ml/min/1.73 sqM) 04/10/17 05:16 Est GFR (MDRD) Non-Af >60 (>60 ml/min/1.73 sqM) 04/10/17 05:16 Glucose 101 mg/dL (74-99) H 04/10/17 05:16 POC Glucose (mg/dL) 386 mg/dL (75-99) H 04/10/17 20:43 POC Glu [employer] Donna Fritz 04/10/17 20:[address] Glu mg/dL 258 mg/dL 04/08/17 17:21 Hemoglobin A1c 10.6 % (4.2-6.1) H 04/08/17 17:21 Plasma Lactic Acid Freddy 1.1 mmol/L (0.7-2.0) 04/08/17 17:21 Calcium 9.0 mg/dL (8.4-10.2) 04/10/17 05:16 Total Bilirubin 0.6 mg/dL (0.2-1.3) 04/08/17 17:21 AST 49 U/L (17-59) 04/08/17 17:21 ALT 50 U/L (21-72) 04/08/17 17:21 Alkaline Phosphatase 82 U/L (38-126) 04/08/17 17:21 Total Protein 5.9 g/dL (6.3-8.2) L 04/08/17 17:21 Albumin 3.1 g/dL (3.5-5.0) L 04/08/17 17:21 Urine Color Yellow 04/08/17 18:27 Urine Appearance Clear (Clear) 04/08/17 18:27 Urine pH 6.0 (5.0-8.0) 04/08/17 18:27 Ur Specific [place] 1.014 (1.001-1.035) 04/08/17 18:27 Urine Protein 1+ (Negative) H 04/08/17 18:27 Urine Glucose (UA) 4+ (Negative) H 04/08/17 18:27 Urine Ketones Negative (Negative) 04/08/17 18:27 Urine Blood Small (Negative) H 04/08/17 18:27 Urine Nitrite Negative (Negative) 04/08/17 18:27 Urine Bilirubin Negative (Negative) 04/08/17 18:27 Urine Urobilinogen 2.0 mg/dL (<2.0) 04/08/17 18:27 Ur Leukocyte Esterase Negative (Negative) 04/08/17 18:27 Urine RBC 3 /hpf (0-5) 04/08/17 18:27 Urine WBC 2 /hpf (0-5) 04/08/17 18:27 Hyaline Casts 10 /lpf (0-2) H 04/08/17 18:27 Vancomycin Trough 16.5 ug/mL 04/10/17 05:16 Microbiology 04/08/17 18:02 Blood Blood Culture - Preliminary No Growth after 48 hours 04/08/17 17:21 Blood Blood Culture - Preliminary No Growth after 48 hours 04/08/17 18:27 Urine,Clean Catch Urine Culture - Final Assessment and Plan (1) Diabetes mellitus type 2 with complications Status: Acute (2) Cellulitis of right leg Narrative/Plan: 56-year-old male presents to hospital with the sudden onset of pain swelling and erythema to the right lower extremity. Most of and trauma has occurred. With his history he was very concerning [place] sought care at the hospital. Patient is evidence of the extensive cephalized the right lower extremity. Portal of entry to be the dry cracked skin of the foot. Some Silvadene will be applied and wrapped in place. Duplex of requested and should there is no deep venous thrombosis. Antibiotic therapy with vancomycin has been begun. Ancef is also added while cultures are pending. Elevation and rest is helpful. Continue the multivitamin and treatment of his multiple underlying medical conditions. May need more diuretic therapy to help with his significant edema. The edema of the lower extremities improved today. Silvadene wrap the leg since the duplex is negative for deep venous thrombosis. The very dry cracked skin to his foot and lower leg is a likely portal of entry for the significant infection. Plan antibiotic therapy intravenously until improved and then will transition to oral antibiotic therapy. Needs improved glucose control to help him prevent further infections in the future. Complains of severe pain. Point dose of Dilaudid and follow with his primary Status: Acute
[2017-04-11] MEDS: HYDROcodone/APAP 10-325MG 1 EACH TAB PO SCH ×6 (04:06→23:52)
[2017-04-11] MEDS: VANCOMYCIN 1,500 MG in SODIUM CHLORIDE 0.9% 250 ML IVPB SCH ×2 (05:17→17:58)
[2017-04-11 07:27] LABS: Glucose,Whole Blood 228 mg/dL (75-99)
[2017-04-11] MEDS: INSULIN LISPRO (humaLOG) 300 UNIT/3 ML VIAL SQ SCH ×4 (07:56→22:28)
[2017-04-11] MEDS: ceFAZolin 2 GM in SODIUM CHLORIDE 0.9% 100 ML IVPB SCH ×3 (07:57→23:53)
[2017-04-11] MEDS: PANTOPRAZOLE 40 MG TABLET PO SCH ×2 (07:57→17:58)
[2017-04-11] MEDS: LISINOPRIL 5 MG TAB PO SCH (07:58)
[2017-04-11] MEDS: GABAPENTIN 400 MG CAP PO SCH ×4 (07:58→22:30)
[2017-04-11] MEDS: HYDROCORTISONE 20 MG TAB PO SCH (07:58)
[2017-04-11] MEDS: HYDROmorphone 1 MG/ML 1 ML SYRINGE IVP PRN ×2 (08:08→18:33)
[2017-04-11 08:41] LABS: Anion Gap 10 mmol/L; Blood Urea Nitrogen 21 mg/dL (9-20); Calcium 8.9 mg/dL (8.4-10.2); Carbon Dioxide 31 mmol/L (22-30); Chloride 100 mmol/L (98-107); Glucose 258 mg/dL (74-99); Non-African American GFR(MDRD) >60 (>60 ml/min/1.73 sqM); Potassium 4.2 mmol/L (3.5-5.1); Sodium 141 mmol/L (137-145)
[2017-04-11] MEDS: MULTIVITAMINS, THERA 1 EACH TAB PO SCH (11:34)
--- NOTE | 2017-04-11 12:13 | PN ---
This is a 56-year-old white male who came in here to the hospital with cellulitis of the right leg. Please refer to Dr. Hardin report. Possibility of cracked skin bottom of the feet actually causing the entrance. He has had constant use of medications including oils to soften up the skin. Unfortunately this does occur. There is swelling of his right and pain in his right leg is less. His generalized severe muscle aches are much less with one dose of steroids. At this point he feels pretty good and no shortness of breath. No chest pain. No orthopnea. No paroxysmal nocturnal dyspnea. His review of systems at this time: CARDIOPULMONARY: No shortness of breath, no chest pain, no orthopnea, no paroxysmal nocturnal dyspnea. GI: No hematemesis, melena, hematochezia. No diarrhea. Today, no loose stool. No constipation. : Does have some evidence of BPH. NEUROMUSCULAR: Swelling to right lower leg. There is weakness in both legs secondary from his lumbar spine. PSYCHIATRIC: Patient is not depressed, but seems to be anxious per voicing my concern. INTEGUMENTARY: Just changes of stasis dermatitis on his legs and then the redness of his right leg where the infection is. ENDOCRINE: he appears to have a cortisol deficiency and when we try to take him off the Cortef blood pressure drops and he feels absolutely fatigued and tired. Lab today: Nothing to add other than elevated blood sugars I feel probably secondary from his steroids. MEDICATIONS: He is on Tylenol 500 p.r.n., [place] 10 every 4 hours. He gets Norvasc 5 mg daily, aspirin 81, Lipitor 40. He is on Cefazolin 2 grams. He is on a Duragesic patch 25 q.24, Lasix 20 daily, Gabapentin 800 mg four times a day , Cortef 20 mg a day, Dilaudid 1 mg bid with severe pain, 25 mg of insulin, Lantus subcu, he is on insulin to scale, Synthroid 0.5, Zestril 5, Singulair 10 , Theragran 1 daily, Protonix 40 twice a day, Silvadene cream to the left, vancomycin dosed per Infectious Disease per Dr. Hardin. ASSESSMENT: 1. Right lower leg cellulitis. 2. History of coronary artery disease. 3. Insulin dependent diabetes mellitus with rather poor compliance. 4. Hypertension, longstanding. 5. Bypass surgery x 4 vessels. 6. Hyperlipidemia. 7. Severe osteoarthritis. 8. Degenerative disc disease. 9. Previous multiple pneumonias in the past. PLAN: Will get nutrition support again. I have had a long talk with him and his . His nutritional status is very poor. At times his says he will do well for a while and then he becomes very poor. We talked about that. In the meantime, we increased his Lantus to 30 units daily, continue his IV antibiotics. Supportive care. His prognosis is very guarded. Also of interest is Dr. Jones is watching a pancreatic mass. He has also been set to have surgery on his back by Dr. Chang, but Dr. Chang wants him to be healthy for 6 months before. [facility]
[2017-04-11 12:34] LABS: Glucose,Whole Blood 321 mg/dL (75-99)
[2017-04-11 17:11] LABS: Glucose,Whole Blood 220 mg/dL (75-99)
[2017-04-11 20:49] LABS: Glucose,Whole Blood 327 mg/dL (75-99)
[2017-04-11] MEDS: amLODIPine 5 MG TAB PO SCH (22:27)
[2017-04-11] MEDS: ATORVASTATIN 40 MG TAB PO SCH (22:27)
[2017-04-11] MEDS: ASPIRIN 81 MG CHEW PO SCH (22:27)
[2017-04-11] MEDS: INSULIN GLARGINE 100 UNIT/ML 10 ML VIAL SQ SCH (22:28)
[2017-04-11] MEDS: LEVOTHYROXINE 50 MCG TAB PO SCH (22:29)
[2017-04-11] MEDS: MONTELUKAST 10 MG TAB PO SCH (22:29)
[2017-04-11 23:32] VITALS: RESP 18
[2017-04-12] MEDS: HYDROcodone/APAP 10-325MG 1 EACH TAB PO SCH ×6 (04:01→23:43)
[2017-04-12] MEDS: VANCOMYCIN 1,500 MG in SODIUM CHLORIDE 0.9% 250 ML IVPB SCH ×2 (06:07→17:27)
[2017-04-12] MEDS: HYDROmorphone 1 MG/ML 1 ML SYRINGE IVP PRN ×2 (06:16→20:39)
[2017-04-12 07:20] LABS: Glucose,Whole Blood 133 mg/dL (75-99)
[2017-04-12] MEDS: INSULIN LISPRO (humaLOG) 300 UNIT/3 ML VIAL SQ SCH ×4 (07:49→20:40)
[2017-04-12] MEDS: LISINOPRIL 5 MG TAB PO SCH (07:50)
[2017-04-12] MEDS: PANTOPRAZOLE 40 MG TABLET PO SCH ×2 (07:50→17:22)
[2017-04-12] MEDS: GABAPENTIN 400 MG CAP PO SCH ×4 (07:50→21:31)
[2017-04-12] MEDS: HYDROCORTISONE 20 MG TAB PO SCH (07:50)
[2017-04-12] MEDS: ceFAZolin 2 GM in SODIUM CHLORIDE 0.9% 100 ML IVPB SCH ×3 (09:06→23:43)
[2017-04-12 09:19] LABS: ALT 34 U/L (21-72); AST 37 U/L (17-59); Alkaline Phosphatase 72 U/L (38-126); Anion Gap 13 mmol/L; Blood Urea Nitrogen 19 mg/dL (9-20); Calcium 8.9 mg/dL (8.4-10.2); Carbon Dioxide 34 mmol/L (22-30); Chloride 97 mmol/L (98-107); Glucose 211 mg/dL (74-99); Non-African American GFR(MDRD) >60 (>60 ml/min/1.73 sqM); Potassium 3.9 mmol/L (3.5-5.1); Sodium 144 mmol/L (137-145); Total Bilirubin 0.4 mg/dL (0.2-1.3)
[2017-04-12 09:38] LABS: Basophils # (A) 0.1 k/uL (0-0.2); Basophils % (A) 1 %; CH 25.5; CHCM 30.4; Eosinophils # (A) 0.1 k/uL (0-0.7); Eosinophils % (A) 2 %; HCT 38.6 % (39.0-53.0); HDW 2.87; HGB 11.9 gm/dL (13.0-17.5); Hypochromasia Marked; Luc % (Auto) 2; Lymphocytes # (A) 1.6 k/uL (1.0-4.8); Lymphocytes % (A) 18 %; MCH 26.1 pg (25.0-35.0); MCHC 30.9 g/dL (31.0-37.0); MCV 84.3 fL (80.0-100.0); Mean Platelet Volume 7.9; Monocytes # (A) 0.6 k/uL (0-1.0); Monocytes % (A) 7 %; Neutrophils # (A) 6.1 k/uL (1.3-7.7); Neutrophils % (A) 71 %; RBC 4.57 m/uL (4.30-5.90); RDW 15.8 % (11.5-15.5); WBC 8.7 k/uL (3.8-10.6)
[2017-04-12] MEDS: MULTIVITAMINS, THERA 1 EACH TAB PO SCH (11:57)
[2017-04-12 12:01] LABS: Glucose,Whole Blood 232 mg/dL (75-99)
--- NOTE | 2017-04-12 13:07 | PN ---
Patient is still having some pain in that leg which comes and goes transitionally but the discomfort with the generalized arthritis pain he has is improved. He feels like his leg has improved also. As reviewed, he is still on IV antibiotics at this point with the Silvadene applied along with wrapping and washing of the infected left leg daily. AT this period of time, his review of systems show a cardiopulmonary with no shortness of breath, no cough, no orthopnea, no paroxysmal internal dyspnea. GI: No hematemesis, no hematochezia. : Negative. NEUROMUSCULAR: Swelling to the right lower leg and he states that he does have a fair amount of pain with it. PSYCHIATRIC: He is not depressed but appears anxious and does offer his concern of constant infection. INTEGUMENTARY: Stasis dermatitis, multiple scars. 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 His medications have all be reviewed and at this point there is no change. His lab, his blood sugars have come under better control in the 200 and low 300's since adding higher dose of Lantus. PHYSICAL EXAM: He is alert and well-oriented to person, place and thing. His temperature is 98 , his heart rate is in the 70's, respiratory rate is 18, blood pressure is 140/ 80. EYES: Pupils are equal, round and reactive to light and accommodation. ENT showed tympanic membranes and pharynx appears to be negative. Neck is supple with midline trachea. Chest is essentially clear to auscultation. Heart , sinus rhythm with no murmur. Abdomen is soft, nontender with no organomegaly. NEUROMUSCULAR: He has tremendous arthritic changes in his hands and his wrist, elbows and shoulders with decreased range of motion of all joints. He also has severe cervical spine arthritis along with degenerative disc disease with chronic bulging discs and he is to have surgery some time soon when he is stable. His right leg is still swollen and is wrapped accordingly and complete physical examination was done based upon the right leg. PSYCHIATRIC: Again, he is well maintained to the person, place or thing. He has stasis dermatitis changes on his leg for integumentary. ASSESSMENT: 1. Soft tissue swelling and extensive infection in the lower leg on the right with cellulitis. 2. Longstanding history of insulin-dependent diabetes, hyperlipidemia with advanced coronary artery disease, hypertension which has been stable, peripheral neuropathy, adrenal insufficiency, euthyroid, history of asthma, GE reflux and generalized osteoarthritis. PLAN: Continue same antibiotics, same medication accordingly. When patient continues to improve, transition to p.o. antibiotics will be completed. CHRISTY
[2017-04-12 17:19] LABS: Glucose,Whole Blood 331 mg/dL (75-99)
--- NOTE | 2017-04-12 17:37 | P.PN ---
Subjective Principal diagnosis: Cellulitis 56-year-old male well known to the infectious disease service for his many recent admissions regarding bouts of sepsis-like events. There was concerns to difficulties with acidosis related to his medications. With medication adjustments she's been doing quite well. His gout has been under good control. Psoriatic the sudden onset of pain and swelling to his right lower extremity. Is also having some edema to his left leg but not nearly as significant as to the right. Recalls no specific trauma or injury to the right lower extremity. He does have some mild chronic edema issues that he tries to control with some stockings. Had a sudden severe swelling erythema pain and low-grade fever that started. We sought medical therapy. It is a long-standing history of diabetes mellitus with poor control over time. Try to have improved over the last several months. He is at this time denying further fever chill a regular period but does feel poorly and weak to the significant swelling erythema and discomfort of the right limb. Duplexes been performed with no evidence of deep venous thrombosis. Patient was feeling better. Was having severe pains of his bilateral lower extremities. This is now resolved. The family feels better overall. Objective - Vital Signs Vital signs: Vital Signs Temp 99.6 F 04/12/17 15:00 Pulse 92 04/12/17 15:00 Resp 18 04/12/17 15:00 BP 136/71 04/12/17 15:00 Pulse Ox 95 04/12/17 15:00 Intake & Output 04/11/17 04/12/17 04/12/17 18:59 06:59 18:59 Intake Total 440 Output Total 1350 Balance -1350 440 Intake: Oral 440 Output: Urine 1350 Other: # Voids 1 1 2 # Bowel Movements 0 - Exam 56-year-old male who has complaints complains of generalized fatigue and malaise and body aches HEENT: Anicteric conjunctiva are pink and moist nasal mucosa grossly intact without significant lesions, there is no thrush. Mucosa dry Neck: The neck is supple without significant lymphadenopathy or thyromegaly. Lungs: Good bilateral air entry without significant crackles or wheezes are heard There is no significant bronchial sounds. There is no egophony or dullness. Heart: Irregular with an audible S1 and S2 no S3 soft S4 no murmur click or rub. Abdomen: Positive bowel sounds soft and nontender without palpable masses or organomegaly. There was no guarding or rebound. Extremities: The left upper extremity shows evidence of some changes of the hand from his prior infection. No erythema crepitus or fluctuance. No difficulties of range of motion of the index finger or thumb. the right wrist reveals evidence of the prior surgical intervention. The extensive prior wound has healed. No evidence of any erythema or tenderness at that site. left lower extremity has some edema. Right lower extremity shows evidence of marked improvement of the edema with the wrap. Erythema is nearly resolved. Skin however is very dry with cracks especially in the feet. no distinct fungal infection is seen. Skin: Area of ulceration to the buttocks has healed There is no epitrochlear or axillary lymphadenopathy. No other lymphadenopathy is noted. Neuro: Awake alert oriented to person place and time. There are no acute new gross focal sensory motor deficits. - Labs CBC & Chem 7: 04/12/17 08:27 04/12/17 08:27 Labs: Abnormal Lab Results - Last 24 Hours (Table) 04/11/17 04/12/17 04/12/17 Range/Units 20:44 07:07 08:27 Hgb (13.0-17.5) gm/dL Hct (39.0-53.0) % MCHC (31.0-37.0) g/dL RDW (11.5-15.5) % Chloride 97 L (98-107) mmol/L Carbon Dioxide 34 H (22-30) mmol/L Glucose 211 H (74-99) mg/dL POC Glucose (mg/dL) 327 H 133 H (75-99) mg/dL Total Protein 6.0 L (6.3-8.2) g/dL Albumin 3.2 L (3.5-5.0) g/dL 04/12/17 04/12/17 04/12/17 Range/Units 08:27 11:54 17:16 Hgb 11.9 L (13.0-17.5) gm/dL Hct 38.6 L (39.0-53.0) % MCHC 30.9 L (31.0-37.0) g/dL RDW 15.8 H (11.5-15.5) % Chloride (98-107) mmol/L Carbon Dioxide (22-30) mmol/L Glucose (74-99) mg/dL POC Glucose (mg/dL) 232 H 331 H (75-99) mg/dL Total Protein (6.3-8.2) g/dL Albumin (3.5-5.0) g/dL Microbiology - Last 24 Hours (Table) 04/08/17 18:02 Blood Culture - Preliminary Blood No Growth after 72 hours 04/08/17 17:21 Blood Culture - Preliminary Blood No Growth after 72 hours Laboratory Results WBC 8.7 k/uL (3.8-10.6) 04/12/17 08:27 RBC 4.57 m/uL (4.30-5.90) 04/12/17 08:27 Hgb 11.9 gm/dL (13.0-17.5) L 04/12/17 08:27 Hct 38.6 % (39.0-53.0) L 04/12/17 08:27 MCV 84.3 fL (80.0-100.0) 04/12/17 08:27 MCH 26.1 pg (25.0-35.0) 04/12/17 08:27 MCHC 30.9 g/dL (31.0-37.0) L 04/12/17 08:27 RDW 15.8 % (11.5-15.5) H 04/12/17 08:27 Plt Count 285 k/uL (150-450) 04/12/17 08:27 Neutrophils % 71 % 04/12/17 08:27 Lymphocytes % 18 % 04/12/17 08:27 Monocytes % 7 % 04/12/17 08:27 Eosinophils % 2 % 04/12/17 08:27 Basophils % 1 % 04/12/17 08:27 Neutrophils # 6.1 k/uL (1.3-7.7) 04/12/17 08:27 Lymphocytes # 1.6 k/uL (1.0-4.8) 04/12/17 08:27 Monocytes # 0.6 k/uL (0-1.0) 04/12/17 08:27 Eosinophils # 0.1 k/uL (0-0.7) 04/12/17 08:27 Basophils # 0.1 k/uL (0-0.2) 04/12/17 08:27 Hypochromasia Marked 04/12/17 08:27 Anisocytosis Slight 04/08/17 17:21 ESR 77 mm/hr (0-15) H 04/08/17 17:21 Sodium 144 mmol/L (137-145) 04/12/17 08:27 Potassium 3.9 mmol/L (3.5-5.1) 04/12/17 08:27 Chloride 97 mmol/L (98-107) L 04/12/17 08:27 Carbon Dioxide 34 mmol/L (22-30) H 04/12/17 08:27 Anion Gap 13 mmol/L 04/12/17 08:27 BUN 19 mg/dL (9-20) 04/12/17 08:27 Creatinine 0.86 mg/dL (0.66-1.25) 04/12/17 08:27 Est GFR (MDRD) Af Amer >60 (>60 ml/min/1.73 sqM) 04/12/17 08:27 Est GFR (MDRD) Non-Af >60 (>60 ml/min/1.73 sqM) 04/12/17 08:27 Glucose 211 mg/dL (74-99) H 04/12/17 08:27 POC Glucose (mg/dL) 331 mg/dL (75-99) H 04/12/17 17:16 POC Glu Javascript Software Engineer ID 04/12/17 17:[address] Glu mg/dL 258 mg/dL 04/08/17 17:21 Hemoglobin A1c 10.6 % (4.2-6.1) H 04/08/17 17:21 Plasma Lactic Acid Freddy 1.1 mmol/L (0.7-2.0) 04/08/17 17:21 Calcium 8.9 mg/dL (8.4-10.2) 04/12/17 08:27 Total Bilirubin 0.4 mg/dL (0.2-1.3) 04/12/17 08:27 AST 37 U/L (17-59) 04/12/17 08:27 ALT 34 U/L (21-72) 04/12/17 08:27 Alkaline Phosphatase 72 U/L (38-126) 04/12/17 08:27 Total Protein 6.0 g/dL (6.3-8.2) L 04/12/17 08:27 Albumin 3.2 g/dL (3.5-5.0) L 04/12/17 08:27 Urine Color Yellow 04/08/17 18:27 Urine Appearance Clear (Clear) 04/08/17 18:27 Urine pH 6.0 (5.0-8.0) 04/08/17 18:27 Ur Specific Junior 1.014 (1.001-1.035) 04/08/17 18:27 Urine Protein 1+ (Negative) H 04/08/17 18:27 Urine Glucose (UA) 4+ (Negative) H 04/08/17 18:27 Urine Ketones Negative (Negative) 04/08/17 18:27 Urine Blood Small (Negative) H 04/08/17 18:27 Urine Nitrite Negative (Negative) 04/08/17 18:27 Urine Bilirubin Negative (Negative) 04/08/17 18: Urine Urobilinogen 2.0 mg/dL (<2.0) 04/08/17 18:27 Ur Leukocyte Esterase Negative (Negative) 04/08/17 18:27 Urine RBC 3 /hpf (0-5) 04/08/17 18:27 Urine WBC 2 /hpf (0-5) 04/08/17 18:27 Hyaline Casts 10 /lpf (0-2) H 04/08/17 18:27 Vancomycin Trough 16.5 ug/mL 04/10/17 05:16 Microbiology 04/08/17 18:02 Blood Blood Culture - Preliminary No Growth after 72 hours 04/08/17 17:21 Blood Blood Culture - Preliminary No Growth after 72 hours 04/08/17 18:27 Urine,Clean Catch Urine Culture - Final Assessment and Plan (1) Diabetes mellitus type 2 with complications Status: Acute (2) Cellulitis of right leg Narrative/Plan: 56-year-old male presents to hospital with the sudden onset of pain swelling and erythema to the right lower extremity. Most of and trauma has occurred. With his history he was very concerning [place] sought care at the hospital. Patient is evidence of the extensive cephalized the right lower extremity. Portal of entry to be the dry cracked skin of the foot. Some Silvadene will be applied and wrapped in place. Duplex of requested and should there is no deep venous thrombosis. Antibiotic therapy with vancomycin has been begun. Ancef is also added while cultures are pending. Elevation and rest is helpful. Continue the multivitamin and treatment of his multiple underlying medical conditions. May need more diuretic therapy to help with his significant edema. The edema of the lower extremities improved today. Silvadene wrap the leg since the duplex is negative for deep venous thrombosis. The very dry cracked skin to his foot and lower leg is a likely portal of entry for the significant infection. Plan antibiotic therapy intravenously until improved and then will transition to oral antibiotic therapy.cefadroxil 500mg po bid 10 days is planned. Needs improved glucose control to help him prevent further infections in the future. Fortunately he is now much improved. Expect discharge soon. Status: Acute
[2017-04-12 20:21] LABS: Glucose,Whole Blood 222 mg/dL (75-99)
[2017-04-12] MEDS: ATORVASTATIN 40 MG TAB PO SCH (20:21)
[2017-04-12] MEDS: amLODIPine 5 MG TAB PO SCH (20:21)
[2017-04-12] MEDS: MONTELUKAST 10 MG TAB PO SCH (20:21)
[2017-04-12] MEDS: LEVOTHYROXINE 50 MCG TAB PO SCH (20:21)
[2017-04-12] MEDS: ASPIRIN 81 MG CHEW PO SCH (20:21)
[2017-04-12] MEDS: INSULIN GLARGINE 100 UNIT/ML 10 ML VIAL SQ SCH (20:40)
[2017-04-13] MEDS: HYDROcodone/APAP 10-325MG 1 EACH TAB PO SCH ×3 (05:42→11:36)
[2017-04-13] MEDS: VANCOMYCIN 1,500 MG in SODIUM CHLORIDE 0.9% 250 ML IVPB SCH (05:42)
[2017-04-13 07:33] LABS: Glucose,Whole Blood 132 mg/dL (75-99)
[2017-04-13 07:45] VITALS: BP 125/62; PULSE 77; TEMP 97.5
[2017-04-13 08:31] LABS: Anion Gap 11 mmol/L; Blood Urea Nitrogen 17 mg/dL (9-20); Calcium 8.9 mg/dL (8.4-10.2); Carbon Dioxide 34 mmol/L (22-30); Chloride 99 mmol/L (98-107); Glucose 135 mg/dL (74-99); Non-African American GFR(MDRD) >60 (>60 ml/min/1.73 sqM); Potassium 3.7 mmol/L (3.5-5.1); Sodium 144 mmol/L (137-145)
[2017-04-13] MEDS: INSULIN LISPRO (humaLOG) 300 UNIT/3 ML VIAL SQ SCH ×2 (08:55→12:33)
[2017-04-13] MEDS: PANTOPRAZOLE 40 MG TABLET PO SCH (08:56)
[2017-04-13] MEDS: HYDROCORTISONE 20 MG TAB PO SCH (08:56)
[2017-04-13] MEDS: ceFAZolin 2 GM in SODIUM CHLORIDE 0.9% 100 ML IVPB SCH (08:56)
[2017-04-13] MEDS: GABAPENTIN 400 MG CAP PO SCH ×2 (08:56→11:36)
[2017-04-13] MEDS: LISINOPRIL 5 MG TAB PO SCH (08:56)
[2017-04-13] MEDS: HYDROmorphone 1 MG/ML 1 ML SYRINGE IVP PRN (09:05)
[2017-04-13] MEDS: MULTIVITAMINS, THERA 1 EACH TAB PO SCH (11:36)
[2017-04-13 12:37] LABS: Glucose,Whole Blood 334 mg/dL (75-99)
[2017-04-14] MEDS ORDERED: VANCOMYCIN TROUGH DUE 1 EACH MISC MISCELLANE ONE (05:00)
--- NOTE | 2017-04-16 13:35 | DS ---
DATE OF ADMISSION: 04/08/2017 DATE OF DISCHARGE: 04/13/2017 DISCHARGE DIAGNOSES: 1. Right leg cellulitis and swelling. 2. Insulin-dependent diabetes mellitus. 3. Severe pain, secondary from peripheral neuropathy and also chronic lumbar degenerative disease, presurgery. 4. Advanced coronary artery disease with previous CABG. 5. Peripheral neuropathy. 6. Adrenal insufficiency. 7. Euthyroid. 8. Asthma. 9. Gastroesophageal reflux. 10. Generalized osteoarthritis. 11. Insulin-dependent diabetes. 12. Previous myocardial infarction. 13. Previous sepsis. 14. Pancreatic mass, taken care of by ( ) at [facility]. This is a 56-year-old white male that came into my office after 24 hours of fever and some temperature that was between 99 and 100 and chills and sweats with a very large swollen, very red leg. At that period of time, it was felt that his previous problems that it was at that time decided to place him in the hospital accordingly. 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 He continued to improve over a 3 to 4 day period of time. Consultation with Dr. Hardin occurred. We kept him on the IV antibiotics. At this time, his leg swelling is near to normal. He has decrease in erythema, decrease in swelling and actually feels good. He had a rather uneventful course except for increase in pain in that leg and also in his lumbar stenotic back. He also has some severe degenerative disc disease presurgery in his back that causes a fair amount of discomfort of which he takes chronic pain medications for. At this time, he is being discharged home on the following medications: 1. Silvadene topical to the leg as needed. 2. Insulin to scale. 3. Lantus 30 at bedtime. 3. Levothyroxine 0.5 daily. 4. Prilosec 20 b.i.d. 5. Lasix 20 daily. 6. Norvasc 5 daily. 7. Neurontin 800 mg 4 times a day. 8. He is on a 25 mg of Duragesic patch. 9. He takes Byars 10/325 daily. 10. Zocor 80. 11. He is on Singulair 10. 12. Cortef 20 daily. 13. He is on insulin to scale a.c. meals and bedtime. 14. He takes a multivitamin. 15. Zestril 5. 16. Aspirin 81. 17. We also added Ceftin 500 mg b.i.d. He will follow up with me in a week. He is on an 1800 calorie diet. We had a long talk about controlling his diet better. His prognosis is guarded. CHRISTY
== END 2017-04-13 13:42 | disposition home or self-care (01) | DRG 603 ==
LOC: 4MS4W 14:53
PROVIDERS: ADMIT Family Medicine; ATTEND Family Medicine
DX: L03.115 Cellulitis of right lower limb (principal); I11.0 Hypertensive heart disease with heart failure; E87.2 Acidosis; I50.22 Chronic systolic (congestive) heart failure; E27.40 Unspecified adrenocortical insufficiency; E11.42 Type 2 diabetes mellitus with diabetic polyneuropathy; E11.65 Type 2 diabetes mellitus with hyperglycemia; E78.5 Hyperlipidemia, unspecified; I25.10 Atherosclerotic heart disease of native coronary artery without angina pectoris; I25.2 Old myocardial infarction; I87.2 Venous insufficiency (chronic) (peripheral); J45.909 Unspecified asthma, uncomplicated; K21.9 Gastro-esophageal reflux disease without esophagitis; K86.9 Disease of pancreas, unspecified; L40.9 Psoriasis, unspecified; M10.9 Gout, unspecified; M13.0 Polyarthritis, unspecified; M15.9 Polyosteoarthritis, unspecified; M51.36 Other intervertebral disc degeneration, lumbar region; Z96.641 Presence of right artificial hip joint; N40.0 Benign prostatic hyperplasia without lower urinary tract symptoms; Z79.4 Long term (current) use of insulin; Z79.82 Long term (current) use of aspirin; Z79.899 Other long term (current) drug therapy; Z80.1 Family history of malignant neoplasm of trachea, bronchus and lung; Z80.3 Family history of malignant neoplasm of breast; Z82.49 Family history of ischemic heart disease and other diseases of the circulatory system; Z83.3 Family history of diabetes mellitus; Z85.828 Personal history of other malignant neoplasm of skin; Z86.14 Personal history of Methicillin resistant Staphylococcus aureus infection; Z87.01 Personal history of pneumonia (recurrent); Z87.891 Personal history of nicotine dependence; Z95.1 Presence of aortocoronary bypass graft
CPT/HCPCS: 80048; 80053; 80202; 81001; 83036; 83605; 85025; 85652; 87040; 87086

== ENCOUNTER 2017-09-25 10:46 | Inpatient (IN) | payer MEDICARE ==
[2017-09-25] MEDS ORDERED: ACETAMINOPHEN TAB 500 MG TAB PO STA (10:51)
[2017-09-25] MEDS: SODIUM CHLORIDE 0.9% 500 ML IV SCH ×2 (11:02→11:03)
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
[2017-09-25 11:30] LABS: Anisocytosis Slight; Basophils % (A) 0 %; Eosinophils # (A) 0.2 k/uL (0-0.7); Eosinophils % (A) 2 %; HCT 39.6 % (39.0-53.0); HGB 11.6 gm/dL (13.0-17.5); Hypochromasia Marked; Lymphocytes # (A) 0.7 k/uL (1.0-4.8); Lymphocytes % (A) 6 %; MCH 24.5 pg (25.0-35.0); MCHC 29.3 g/dL (31.0-37.0); MCV 83.6 fL (80.0-100.0); Mean Platelet Volume 7.6; Monocytes # (A) 0.5 k/uL (0-1.0); Monocytes % (A) 4 %; Neutrophils # (A) 10.7 k/uL (1.3-7.7); Neutrophils % (A) 87 %; Platelet Count 252 k/uL (150-450); RBC 4.73 m/uL (4.30-5.90); RDW 18.6 % (11.5-15.5); WBC 12.4 k/uL (3.8-10.6)
--- NOTE | 2017-09-25 11:34 | XR ---
EXAMINATION TYPE: XR chest 2V DATE OF EXAM: 09/25/2017 COMPARISON: 02/13/2017 HISTORY: Shortness of breath TECHNIQUE: Frontal and lateral views of the chest are obtained. FINDINGS: Scattered senescent parenchymal changes noted. Hyperinflation compatible with COPD. No evidence for infiltrate. No evidence for atelectasis. Heart size is stable. Mediastinal structures are stable and grossly unremarkable. No evidence for hilar prominence. Degenerative changes dorsal spine. IMPRESSION: 1. No evidence for acute pulmonary disease.
[2017-09-25 11:36] LABS: Partial Thromboplastin Time 22.9 sec (22.0-30.0); Prothrombin Time 10.2 sec (9.0-12.0)
[2017-09-25 11:37] LABS: Appearance,Urine Clear (Clear); Bacteria,Urine Rare /hpf; Bilirubin,Urine 2+ (Negative); Blood,Urine Small (Negative); Color,Urine Yellow; Glucose,Urine (UA) Trace (Negative); Hyaline Casts,Urine 1 /lpf (0-2); Ketones,Urine 1+ (Negative); Leukocyte Esterase,Urine Negative (Negative); Mucus,Urine Rare /hpf; Nitrite,Urine Negative (Negative); PH, Urine 6.5 (5.0-8.0); Protein,Urine 3+ (Negative); RBC,Urine 5 /hpf (0-5); Specific Gravity,Urine 1.013 (1.001-1.035); Urobilinogen,Urine <2.0 mg/dL (<2.0); WBC,Urine 1 /hpf (0-5)
[2017-09-25 11:39] LABS: ALT 69 U/L (21-72); AST 45 U/L (17-59); Albumin 3.6 g/dL (3.5-5.0); Alkaline Phosphatase 112 U/L (38-126); Anion Gap 12 mmol/L; Blood Urea Nitrogen 16 mg/dL (9-20); Calcium 8.9 mg/dL (8.4-10.2); Carbon Dioxide 30 mmol/L (22-30); Chloride 99 mmol/L (98-107); Glucose 155 mg/dL (74-99); Potassium 4.5 mmol/L (3.5-5.1); Sodium 141 mmol/L (137-145); Total Bilirubin 0.9 mg/dL (0.2-1.3); Total Protein 6.4 g/dL (6.3-8.2)
[2017-09-25] MEDS ORDERED: RX INFO: IV CONTRAST WAS GIVEN 1 EACH MISC MISCELLANE PRN (11:55)
--- NOTE | 2017-09-25 12:59 | CT ---
EXAMINATION TYPE: CT angio chest DATE OF EXAM: 09/25/2017 COMPARISON: Prior chest CT November 29, 2016 HISTORY: Shortness of breath and fever. Rule out PE. CT DLP: 521.9 mGycm. Automated Exposure Control for Dose Reduction was Utilized. CONTRAST: CTA scan of the thorax is performed with IV Contrast, patient injected with 100 mL of Omnipaque 350, pulmonary embolism protocol. MIP Images are created on CT scanner and reviewed. FINDINGS: LUNGS: There are new patchy reticulonodular infiltrates inferior lateral right upper lobe and new mor e patchy reticulonodular infiltrates in the bilateral lower lobes. Motion artifact degradation is see n in the lung bases making evaluation of this level suboptimal. There is additional linear scarring a nd/or atelectasis posterior left lung base and posterior right lower lobe noted. There is small area of focal consolidation or atelectasis in the lingula abutting the fissure axial image 101. There is s lightly more suspicious nodularity also seen at area of reticulonodular infiltrates right upper lobe measuring 9 x 9 mm axial image 75. There is slightly suspicious irregular nodular consolidation left lower lobe measuring 1.2 x 0.8 cm axial image 85. There is no pleural effusion or pneumothorax seen. The tracheobronchial tree is patent. MEDIASTINUM: There is satisfactory enhancement of the pulmonary artery and its branches, there is no CT evidence for pulmonary embolism. Seen better on current study there are prominent bilateral hilar lymph nodes. There are prominent but subcentimeter subcarinal as well as AP window lymph nodes. No cardiomegaly or pericardial effusion is seen. Severe [place] coronary artery calcification is present but there is post CABG changes with mediastinal clips and sternal wires redemonstrated. OTHER: Small degree of bilateral gynecomastia is again seen. Cholecystectomy clips are present. Ther e is mild multilevel spurring in the visualized spine. IMPRESSION: 1. No CT evidence for pulmonary embolism. 2. New multifocal reticulonodular infiltrates most prominent anterolateral right upper lobe but also involving bilateral lower lobes. Suspect multifocal pneumonia. Advise follow-up CT after treatment du e to underlying neoplasm to reassess 9 mm nodule right upper lobe and 1.2 x 0.8 cm nodular consolidat ion in the left lower lobe.
[2017-09-25] MEDS ORDERED: AZITHROMYCIN 500 MG in SODIUM CHLORIDE 0.9% 250 ML IVPB STA (13:17)
[2017-09-25] MEDS ORDERED: NALOXONE 0.4 MG/ML 1 ML VIAL IV PRN (13:19)
[2017-09-25] MEDS ORDERED: ONDANSETRON 4 MG/2 ML VIAL IVP PRN (13:19)
[2017-09-25] MEDS ORDERED: IBUPROFEN 400 MG TAB PO STA (13:39)
[2017-09-25] MEDS: cefTRIAXone IN SWFI 1,000 MG/10 ML SYRINGE IVP SCH (13:50)
[2017-09-25] MEDS ORDERED: FUROSEMIDE 20 MG TAB PO PRN (15:48)
[2017-09-25] MEDS ORDERED: NITROGLYCERIN SL TABS 0.4 MG TAB SUBLINGUAL PRN (15:48)
[2017-09-25] MEDS ORDERED: ACETAMINOPHEN TAB 325 MG TAB PO PRN (15:51)
[2017-09-25] MEDS ORDERED: ALBUTEROL NEBULIZED 2.5 MG/3 ML INHALATION PRN (15:54)
[2017-09-25] MEDS ORDERED: HEPARIN SODIUM,PORCINE 5,000 UNIT/ML 1 ML VIAL SQ SCH (16:00)
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
[2017-09-25 18:04] LABS: Glucose,Whole Blood 94 mg/dL (75-99)
[2017-09-25] MEDS: INSULIN ASPART 100 UNIT/ML 1 ML 10 ML VIAL SQ SCH ×2 (18:12→21:35)
[2017-09-25] MEDS: metFORMIN 500 MG TAB PO SCH (18:12)
[2017-09-25] MEDS: HYDROcodone/APAP 10-325MG 1 EACH TAB PO PRN (18:16)
[2017-09-25] MEDS: GABAPENTIN 400 MG CAP PO SCH ×2 (18:16→21:40)
[2017-09-25] MEDS ORDERED: ALBUTEROL NEBULIZED 2.5 MG/3 ML INHALATION SCH (20:00)
[2017-09-25] MEDS: BUDESONIDE 0.5 MG/2 ML NEBU INHALATION SCH (20:26)
[2017-09-25] MEDS: IPRATROPIUM-ALBUTEROL 3 ML NEB INHALATION SCH (20:26)
[2017-09-25] MEDS ORDERED: ETODOLAC 400 MG TAB PO SCH (21:00)
[2017-09-25 21:30] LABS: Glucose,Whole Blood 112 mg/dL (75-99)
[2017-09-25] MEDS: INSULIN DETEMIR 100 UNIT/ML 10 ML VIAL SQ SCH (21:38)
[2017-09-25] MEDS: LEVOTHYROXINE 50 MCG TAB PO SCH (21:39)
[2017-09-25] MEDS: MONTELUKAST 10 MG TAB PO SCH (21:40)
[2017-09-25] MEDS: amLODIPine 5 MG TAB PO SCH (21:40)
[2017-09-25] MEDS: FAMOTIDINE 20 MG TAB PO SCH (21:40)
[2017-09-25] MEDS: ASPIRIN 81 MG PO SCH (21:40)
[2017-09-25] MEDS: ATORVASTATIN 40 MG TAB PO SCH (21:40)
[2017-09-25] MEDS: DULoxetine HCL 30 MG CAPSULE.DR PO SCH (21:40)
[2017-09-25] MEDS: HEPARIN SODIUM,PORCINE 5,000 UNIT/ML 1 ML VIAL SQ SCH (21:41)
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
[2017-09-25] MEDS ORDERED: VANCOMYCIN IV PER PHARMACY 1 EACH MISC MISCELLANE PRN (22:42)
[2017-09-26] MEDS: VANCOMYCIN 1,500 MG in SODIUM CHLORIDE 0.9% 250 ML IVPB SCH ×3 (00:46→23:19)
[2017-09-26 01:46] LABS: Hemoglobin A1C 8.5 % (4.0-6.0)
[2017-09-26 04:52] LABS: Glucose,Whole Blood 100 mg/dL (75-99)
[2017-09-26 06:20] LABS: Glucose,Whole Blood 118 mg/dL (75-99)
[2017-09-26] MEDS: INSULIN ASPART 100 UNIT/ML 1 ML 10 ML VIAL SQ SCH ×4 (06:29→21:18)
[2017-09-26 06:48] LABS: Anisocytosis Slight; Basophils % (A) 0 %; Eosinophils # (A) 0.1 k/uL (0-0.7); Eosinophils % (A) 1 %; HCT 35.6 % (39.0-53.0); HGB 10.6 gm/dL (13.0-17.5); Hypochromasia Marked; Lymphocytes # (A) 0.4 k/uL (1.0-4.8); Lymphocytes % (A) 5 %; MCH 24.5 pg (25.0-35.0); MCHC 29.8 g/dL (31.0-37.0); MCV 82.5 fL (80.0-100.0); Mean Platelet Volume 7.9; Microcytosis Slight; Monocytes # (A) 0.4 k/uL (0-1.0); Monocytes % (A) 4 %; Neutrophils # (A) 7.8 k/uL (1.3-7.7); Neutrophils % (A) 88 %; Platelet Count 248 k/uL (150-450); RBC 4.32 m/uL (4.30-5.90); RDW 18.3 % (11.5-15.5); WBC 8.9 k/uL (3.8-10.6)
[2017-09-26 06:57] LABS: Anion Gap 11 mmol/L; Blood Urea Nitrogen 18 mg/dL (9-20); Calcium 8.5 mg/dL (8.4-10.2); Carbon Dioxide 28 mmol/L (22-30); Chloride 102 mmol/L (98-107); Glucose 94 mg/dL (74-99); Sodium 141 mmol/L (137-145)
[2017-09-26 07:05] LABS: Potassium 4.3 mmol/L (3.5-5.1)
[2017-09-26] MEDS: IPRATROPIUM-ALBUTEROL 3 ML NEB INHALATION SCH ×7 (08:37→19:36)
[2017-09-26] MEDS: BUDESONIDE 0.5 MG/2 ML NEBU INHALATION SCH ×2 (08:37→19:35)
--- NOTE | 2017-09-26 09:19 | P.PN ---
Subjective Progress Note Date: 09/26/17 Principal diagnosis: Acute hypoxic respiratory failure, bilateral multifocal pneumonia, sepsis, altered mental status related to above 09/26/2017, patient seen and evaluated examined during the rounds patient has significant desaturation over the night chest up down into 70s 80s even with supplemental oxygen worsening Petrin however noted more during sleep, patient has been initiated on BiPAP with improvement in saturation into the low 90s and patient able to sleep better patient continued to have cough congestion and breathing difficulties security however slightly better compared to yesterday, currently patient is on breathing treatments steroids and antibiotics and being treated for community-acquired pneumonia as well as acute hypoxic restrictive failure advised patient to bring his CPAP machine from home C can use it at nighttime once more stable Mr. Hester is well-known to me is a 57-year-old male with history of chronic persistent asthma severe COPD as well as obstructive sleep apnea patient has been on home CPAP but does not use oxygen he is on breathing treatments as well this patient has not been doing very well for the last 7-10 days with increased cough shortness of breath and sputum production symptoms started with upper respiratory type of process to progressive worsening of shortness or decided to come into the hospital patient has been noted to have oxygen saturation of only 83% on room air however with the supplemental oxygen 2 L improved to 92-93%, patient is being admitted into the hospital for pneumonia, on specific questioning he denies hemoptysis but does complaining of chills feed spiking fever off and on his been more short of breath than baseline his appetite has been poor he however has been taking all of his medications Objective - Vital Signs Vital signs: Vital Signs Temp 101.2 F H 09/26/17 08:53 Pulse 80 09/26/17 09:00 Resp 18 09/26/17 08:00 BP 144/81 09/26/17 07:38 Pulse Ox 98 09/26/17 07:38 Intake & Output 09/25/17 09/26/17 09/26/17 18:59 06:59 18:59 Intake Total 40 Output Total 400 250 Balance -400 -210 Weight 91.172 kg 89.5 kg Intake: IV 40 0.9 40 Output: Urine 400 250 Other: Voiding Method Urinal # Voids 0 # Bowel Movements 0 - Exam General appearance: mild distress, obese - EENT Eyes: EOMI, PERRLA Ears: bilateral: normal - Neck Neck: normal ROM Carotids: bilateral: upstroke normal, bruit absent Thyroid: bilateral: normal size - Respiratory Respiratory: bilateral: rhonchi, wheezing, prolonged expiration, prolonged inspiration, negative: CTA, diminished, dullness, rales - Cardiovascular Rhythm: regular Heart sounds: normal: S1, S2 - Gastrointestinal General gastrointestinal: distended, soft - Neurologic Neurologic: CNII-XII intact - Musculoskeletal Musculoskeletal: gait normal, generalized weakness, strength equal bilaterally, trace bilateral +1 edema - Psychiatric Psychiatric: A&O x's 3, appropriate affect, intact judgment & insight - Labs CBC & Chem 7: 09/26/17 06:00 09/26/17 06:00 Labs: Abnormal Lab Results - Last 24 Hours (Table) 09/25/17 09/25/17 09/25/17 Range/Units 11:10 11:10 11:10 WBC 12.4 H (3.8-10.6) k/uL Hgb 11.6 L (13.0-17.5) gm/dL Hct (39.0-53.0) % MCH 24.5 L (25.0-35.0) pg MCHC 29.3 L (31.0-37.0) g/dL RDW 18.6 H (11.5-15.5) % Neutrophils # 10.7 H (1.3-7.7) k/uL Lymphocytes # 0.7 L (1.0-4.8) k/uL Glucose 155 H (74-99) mg/dL POC Glucose (mg/dL) (75-99) mg/dL Hemoglobin A1c (4.0-6.0) % Urine Protein 3+ H (Negative) Urine Glucose (UA) Trace H (Negative) Urine Ketones 1+ H (Negative) Urine Blood Small H (Negative) Urine Bilirubin 2+ H (Negative) Urine Bacteria Rare H (None) /hpf Urine Mucus Rare H (None) /hpf 09/25/17 09/25/17 09/26/17 Range/Units 11:10 21:02 04:30 WBC (3.8-10.6) k/uL Hgb (13.0-17.5) gm/dL Hct (39.0-53.0) % MCH (25.0-35.0) pg MCHC (31.0-37.0) g/dL RDW (11.5-15.5) % Neutrophils # (1.3-7.7) k/uL Lymphocytes # (1.0-4.8) k/uL Glucose (74-99) mg/dL POC Glucose (mg/dL) 112 H 100 H (75-99) mg/dL Hemoglobin A1c 8.5 H (4.0-6.0) % Urine Protein (Negative) Urine Glucose (UA) (Negative) Urine Ketones (Negative) Urine Blood (Negative) Urine Bilirubin (Negative) Urine Bacteria (None) /hpf Urine Mucus (None) /hpf 09/26/17 09/26/17 Range/Units 06:00 06:18 WBC (3.8-10.6) k/uL Hgb 10.6 L (13.0-17.5) gm/dL Hct 35.6 L (39.0-53.0) % MCH 24.5 L (25.0-35.0) pg MCHC 29.8 L (31.0-37.0) g/dL RDW 18.3 H (11.5-15.5) % Neutrophils # 7.8 H (1.3-7.7) k/uL Lymphocytes # 0.4 L (1.0-4.8) k/uL Glucose (74-99) mg/dL POC Glucose (mg/dL) 118 H (75-99) mg/dL Hemoglobin A1c (4.0-6.0) % Urine Protein (Negative) Urine Glucose (UA) (Negative) Urine Ketones (Negative) Urine Blood (Negative) Urine Bilirubin (Negative) Urine Bacteria (None) /hpf Urine Mucus (None) /hpf Microbiology - Last 24 Hours (Table) 09/25/17 11:10 Urine Culture - Preliminary Urine,Voided Assessment and Plan Assessment: Bilateral pneumonia Acute hypoxic respiratory failure Left lower lobe density/nodule likely related to pneumonia but occult neoplasm cannot be excluded Chronic persistent asthma and severe COPD Influenza A pneumonia cannot be excluded Obstructive sleep apnea Hypertension hypertensive cardiovascular disease Chronic adrenal insufficiency on maintenance dose with the Cortef Hyperglycemia and diabetes mellitus Hypothyroidism Coronary artery disease with history of multiple stent placement History of complicated pneumonia in the past requiring thoracotomy and chest tube placement History of leg wound infection related to MRSA Plan: Care plan reviewed and will put patient on breathing treatments with DuoNeb and Pulmicort, and Zithromax maintain patient on oxygen and maintain patient on DVT and peptic ulcer disease prophylaxis will check patient for influenza A as well. , we'll maintain patient on BiPAP once well if he more stable CPAP to be initiated on culture results and report with further recommendations pending Time with Patient: Greater than 30
[2017-09-26] MEDS: metFORMIN 500 MG TAB PO SCH ×2 (09:30→16:55)
[2017-09-26] MEDS: LISINOPRIL 5 MG TAB PO SCH (09:36)
[2017-09-26] MEDS: HEPARIN SODIUM,PORCINE 5,000 UNIT/ML 1 ML VIAL SQ SCH ×2 (09:36→21:09)
[2017-09-26] MEDS: HYDROCORTISONE 20 MG TAB PO SCH (09:36)
[2017-09-26] MEDS: DULoxetine HCL 30 MG CAPSULE.DR PO SCH ×2 (09:36→21:10)
[2017-09-26] MEDS: FAMOTIDINE 20 MG TAB PO SCH ×2 (09:36→21:10)
[2017-09-26] MEDS: GABAPENTIN 400 MG CAP PO SCH ×4 (09:36→21:09)
[2017-09-26] MEDS: IBUPROFEN 600 MG TAB PO SCH ×3 (09:36→23:17)
[2017-09-26 11:31] LABS: Glucose,Whole Blood 92 mg/dL (75-99)
--- NOTE | 2017-09-26 12:23 | P.PN ---
Subjective Progress Note Date: 09/26/17 57-year-old male who presents to emergency room on 09/25/2017 with a chief complaint of generalized weakness, worsening cough, and shortness of breath 3 days. 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 He has also had a myocardial infarction 2006 and 2007. His past surgical history includes bowel resection, cholecystectomy, coronary artery bypass graft, heart catheterization with multiple stents, hernia repair, and joint replacements. In the emergency room, a chest x-ray was completed which was negative for an acute process. He underwent a CT of the chest to rule out a pulmonary embolus which was negative for PE but did reveal bilateral infiltrates suspicious for multifocal pneumonia. Additionally a 9 mm nodule in the right upper lobe and 1.2 cm nodule in the left lower lobe was found. A follow-up computed tomography scan is recommended after treatment to rule out neoplasm. Laboratory studies revealed sodium 141. Potassium 4.5. BUN 16. Creatinine 0.66. WBC 12.4. Hemoglobin 11.6. Troponin 0.033. Lactic acid 1.4. Hemoglobin A1c 8.5%. Testing for influenza A and B was negative. He was admitted to the hospital under the care of Dr. Romero. Consultations were placed to infectious disease and pulmonology. 09/26/2017 The patient was seen and examined at the bedside on rounds with Dr. Romero. The patient is currently wearing a BiPAP. He remains lethargic but is arousable to verbal stimuli. Nursing is at the bedside and is in the process of transitioning the patient to nasal cannula so he can attempt to eat breakfast. He denies nausea or vomiting. He remains febrile with a temperature this morning of 101.2F axillary. Urine cultures and blood cultures are currently pending. He was evaluated by Dr. Hardin, infectious disease. He remains on Rocephin and azithromycin. Vancomycin was also added to his regimen. Legionella and Mycoplasma have been ordered and results are currently pending. Sputum culture is currently pending. He denies any pain or discomfort at this time. Denies any additional concerns or complaints. Objective - Vital Signs Vital signs: Vital Signs Temp 97.6 F 09/26/17 11:05 Pulse 77 09/26/17 11:05 Resp 16 09/26/17 11:05 BP 123/72 09/26/17 11:05 Pulse Ox 95 09/26/17 11:05 Intake & Output 09/25/17 09/26/17 09/26/17 18:59 06:59 18:59 Intake Total 40 Output Total 400 250 Balance -400 -210 Weight 91.172 kg 89.5 kg Intake: IV 40 0.9 40 Output: Urine 400 250 Other: Voiding Method Urinal # Voids 0 # Bowel Movements 0 - Exam GENERAL: This is a 57-year-old male who is slightly lethargic the time of examination. Easily arousable to verbal stimuli. HEENT: Head is atraumatic, normocephalic. Pupils are equal, round, and reactive to light. Sclerae anicteric. Conjunctivae are clear. Mucus membranes of the mouth are dry. Lips are chapped. Neck is supple. RESPIRATORY: Coarse with scattered rhonchi, worse on right than left. Patient maintaining oxygen saturation greater than 92% on BiPAP and is currently transitioning to nasal cannula. No chest wall tenderness is noted on palpation or with deep breathing. CARDIOVASCULAR: Regular rate and rhythm. S1 and S2 noted. No systolic or diastolic murmur auscultated. No JVD noted. No S3 or S4 noted. GASTROINTESTINAL: Obese. No distention noted. Abdomen soft and round. Normal active bowel sounds auscultated x 4 quadrants. No pain or tenderness noted upon palpation. INTEGUMENTARY: No cyanosis. No jaundice. No rashes noted. No cellulitis noted. EXTREMITIES: 2+ peripheral pulses. +1 bilateral lower extremity edema. No calf tenderness noted. NEUROLOGIC: Cranial nerves II-XII intact. PSYCHIATRIC: Oriented X 3. Appropriate affect. Intact judgement and insight. - Labs CBC & Chem 7: 09/26/17 06:00 09/26/17 06:00 Labs: Abnormal Lab Results - Last 24 Hours (Table) 09/25/17 09/25/17 09/26/17 Range/Units 11:10 21:02 04:30 Hgb (13.0-17.5) gm/dL Hct (39.0-53.0) % MCH (25.0-35.0) pg MCHC (31.0-37.0) g/dL RDW (11.5-15.5) % Neutrophils # (1.3-7.7) k/uL Lymphocytes # (1.0-4.8) k/uL POC Glucose (mg/dL) 112 H 100 H (75-99) mg/dL Hemoglobin A1c 8.5 H (4.0-6.0) % 09/26/17 09/26/17 Range/Units 06:00 06:18 Hgb 10.6 L (13.0-17.5) gm/dL Hct 35.6 L (39.0-53.0) % MCH 24.5 L (25.0-35.0) pg MCHC 29.8 L (31.0-37.0) g/dL RDW 18.3 H (11.5-15.5) % Neutrophils # 7.8 H (1.3-7.7) k/uL Lymphocytes # 0.4 L (1.0-4.8) k/uL POC Glucose (mg/dL) 118 H (75-99) mg/dL Hemoglobin A1c (4.0-6.0) % Microbiology - Last 24 Hours (Table) 09/25/17 11:10 Urine Culture - Preliminary Urine,Voided Assessment and Plan Plan: ASSESSMENT: Bilateral pneumonia of right upper lobe and bilateral lower lobes, present on admission, likely community-acquired Sepsis with leukocytosis and fever, secondary to above Acute hypoxic respiratory failure secondary to above 1.2 cm left lower lobe nodule and 9mm right upper lobe nodule, likely related to pneumonia but neoplasm cannot be excluded at this time Chronic obstructive pulmonary disease and chronic persistent asthma Diabetes mellitus, type II, hemoglobin A1c 8.5% Coronary artery disease with previous coronary artery bypass grafting and previous stent placement Previous pneumonias requiring thoracotomy and chest tube placement Previous cellulitis with MRSA Obstructive sleep apnea Chronic adrenal insufficiency, maintained on Cortef Hyperlipidemia Osteoarthritis Hypothyroidism Obesity: BMI 37.3 PLAN: -Pulmonology on consult. Appreciate recommendations and input -Continue breathing treatments -Patient will require repeat CT on an outpatient basis to evaluate pulmonary nodules -Infectious disease on consult. Appreciate recommendations and input -Antibiotic regimen per Dr. Hardin. Currently on Rocephin and vancomycin -Await results of Legionella and Mycoplasma -Await results of blood and sputum cultures -Monitor fevers. Tylenol PRN -Capillary blood glucose Accu-Cheks before meals and at bedtime -NovoLog sliding scale coverage before meals and at bedtime -Continue Levemir 25 units at at bedtime -Home meds as appropriate -Monitor labs -GI prophylaxis: Pepcid 20 mg by mouth twice a day -DVT prophylaxis: Heparin 5000 units subcu every 12 hours -Monitor vital signs and address as appropriate -PT/OT consult -Discharge planning: Patient currently lives at home and would like to return home at the time of discharge. Will reevaluate as patient progresses. -Further recommendations pending patient's course Nurse practitioner note has been reviewed by physician. Signing provider agrees with the documented findings, assessment, and plan of care.
[2017-09-26] MEDS: cefTRIAXone IN SWFI 1,000 MG/10 ML SYRINGE IVP SCH (12:49)
[2017-09-26] MEDS: HYDROcodone/APAP 10-325MG 1 EACH TAB PO PRN ×3 (12:49→21:17)
[2017-09-26 16:19] LABS: Glucose,Whole Blood 308 mg/dL (75-99)
[2017-09-26] MEDS: MONTELUKAST 10 MG TAB PO SCH (21:09)
[2017-09-26] MEDS: INSULIN DETEMIR 100 UNIT/ML 10 ML VIAL SQ SCH (21:10)
[2017-09-26] MEDS: ASPIRIN 81 MG PO SCH (21:10)
[2017-09-26] MEDS: amLODIPine 5 MG TAB PO SCH (21:10)
[2017-09-26] MEDS: LEVOTHYROXINE 50 MCG TAB PO SCH (21:10)
[2017-09-26] MEDS: ATORVASTATIN 40 MG TAB PO SCH (21:10)
[2017-09-26 21:13] LABS: Glucose,Whole Blood 221 mg/dL (75-99)
--- NOTE | 2017-09-26 22:31 | P.PN ---
Subjective Progress Note Date: 09/26/17 Principal diagnosis: fever 57-year-old male well-known to the infectious disease service for as many bouts of sepsis last year as well as the bout of septic shock with MRAs infection to his right hand and persistent bacteremia that eventually cleared up several years ago. Over time he's been doing relatively well and even has had improvement of his gout and psoriasis. Patient relates over the last many days he's not been feeling well. He's had an upper respiratory infection associated with increasing shortness of cough fever and chill. He became ill enough that his then brought him to hospital. Is now evidence of fever chills shortness of breath cough and pneumonia and with this the infectious diseases consultation was requested. The patient relates he still feels very poorly however the nausea and emesis that he was suffering from has now resolved. Patient relates he feels considerably better today. He still quite sleepy. He is less short of breath. Fevers and chills have improved. Denies other acute new symptoms today. Objective - Vital Signs Vital signs: Vital Signs Temp 97.5 F L 09/26/17 21:25 Pulse 96 09/26/17 21:25 Resp 20 09/26/17 21:25 BP 132/72 09/26/17 21:25 Pulse Ox 94 L 09/26/17 21:25 Intake & Output 09/26/17 09/26/17 09/27/17 06:59 18:59 06:59 Intake Total 512 Output Total 400 250 Balance -400 262 Weight 89.5 kg Intake: IV 40 0.9 40 Oral 472 Output: Urine 400 250 Other: Voiding Method Urinal # Voids 1 - Exam 57-year-old male still seems to be quite uncomfortable. HEENT: Anicteric conjunctiva are pink and moist nasal mucosa grossly intact without significant lesions, there is no thrush. Neck: The neck is supple without significant lymphadenopathy or thyromegaly. Lungs: Symmetrical air entry is noted, expiratory wheezes are scattered. Basilar crackles are heard. No dullness or egophony. Heart: Irregular with a soft S4 There is no significant murmur click or rub, PMI was nondisplaced. Abdomen: Positive bowel sounds soft and nontender without palpable masses or organomegaly. There was no guarding or rebound. Extremities: The upper extremities have excellent pulses they are symmetric, no significant petechiae or telangiectasia. No splinter hemorrhages were noted. The area of prior significant infection of the right hand remains well healed. Left arm without acute difficulties. Lower extremities have trace edema. Neuro: Awake alert oriented to person place and time. There are no acute new gross focal sensory motor deficits. - Labs CBC & Chem 7: 09/26/17 06:00 09/26/17 06:00 Labs: Abnormal Lab Results - Last 24 Hours (Table) 09/25/17 09/26/17 09/26/17 Range/Units 11:10 04:30 06:00 Hgb 10.6 L (13.0-17.5) gm/dL Hct 35.6 L (39.0-53.0) % MCH 24.5 L (25.0-35.0) pg MCHC 29.8 L (31.0-37.0) g/dL RDW 18.3 H (11.5-15.5) % Neutrophils # 7.8 H (1.3-7.7) k/uL Lymphocytes # 0.4 L (1.0-4.8) k/uL POC Glucose (mg/dL) 100 H (75-99) mg/dL Hemoglobin A1c 8.5 H (4.0-6.0) % 09/26/17 09/26/17 09/26/17 Range/Units :18 16:16 20:59 Hgb (13.0-17.5) gm/dL Hct (39.0-53.0) % MCH (25.0-35.0) pg MCHC (31.0-37.0) g/dL RDW (11.5-15.5) % Neutrophils # (1.3-7.7) k/uL Lymphocytes # (1.0-4.8) k/uL POC Glucose (mg/dL) 118 H 308 H 221 H (75-99) mg/dL Hemoglobin A1c (4.0-6.0) % Microbiology - Last 24 Hours (Table) 09/26/17 01:16 Gram Stain - Preliminary Sputum 09/25/17 11:10 Blood Culture - Preliminary Blood No Growth after 24 hours 09/25/17 11:10 Urine Culture - Final Urine,Voided Laboratory Results WBC 8.9 k/uL (3.8-10.6) 09/26/17 06:00 RBC 4.32 m/uL (4.30-5.90) 09/26/17 06:00 Hgb 10.6 gm/dL (13.0-17.5) L 09/26/17 06:00 Hct 35.6 % (39.0-53.0) L 09/26/17 06:00 MCV 82.5 fL (80.0-100.0) 09/26/17 06:00 MCH 24.5 pg (25.0-35.0) L 09/26/17 06:00 MCHC 29.8 g/dL (31.0-37.0) L 09/26/17 06:00 RDW 18.3 % (11.5-15.5) H 09/26/17 06:00 Plt Count 248 k/uL (150-450) 09/26/17 06:00 Neutrophils % 88 % 09/26/17 06:00 Lymphocytes % 5 % 09/26/17 06:00 Monocytes % 4 % 09/26/17 06:00 Eosinophils % 1 % 09/26/17 06:00 Basophils % 0 % 09/26/17 06:00 Neutrophils # 7.8 k/uL (1.3-7.7) H 09/26/17 06:00 Lymphocytes # 0.4 k/uL (1.0-4.8) L 09/26/17 06:00 Monocytes # 0.4 k/uL (0-1.0) 09/26/17 06:00 Eosinophils # 0.1 k/uL (0-0.7) 09/26/17 06:00 Basophils # 0.0 k/uL (0-0.2) 09/26/17 06:00 Hypochromasia Marked 09/26/17 06:00 Anisocytosis Slight 09/26/17 06:00 Microcytosis Slight 09/26/17 06:00 PT 10.2 sec (9.0-12.0) 09/25/17 11:10 INR 1.0 (<1.2) 09/25/17 11:10 APTT 22.9 sec (22.0-30.0) 09/25/17 11:10 Sodium 141 mmol/L (137-145) 09/26/17 06:00 Potassium 4.3 mmol/L (3.5-5.1) 09/26/17 06:00 Chloride 102 mmol/L (98-107) 09/26/17 06:00 Carbon Dioxide 28 mmol/L (22-30) 09/26/17 06:00 Anion Gap 11 mmol/L 09/26/17 06:00 BUN 18 mg/dL (9-20) 09/26/17 06:00 Creatinine 0.71 mg/dL (0.66-1.25) 09/26/17 06:00 Est GFR (MDRD) Af Amer >60 (>60 ml/min/1.73 sqM) 09/26/17 06:00 Est GFR (MDRD) Non-Af >60 (>60 ml/min/1.73 sqM) 09/26/17 06:00 Glucose 94 mg/dL (74-99) 09/26/17 06:00 POC Glucose (mg/dL) 221 mg/dL (75-99) H 09/26/17 20:59 POC Glu [employer] ALICIA Kaykay Arias 09/26/17 20:[address] Glu mg/dL 197 09/25/17 11:10 Hemoglobin A1c 8.5 % (4.0-6.0) H 09/25/17 11:10 Plasma Lactic Acid Freddy 1.4 mmol/L (0.7-2.0) 09/25/17 11:10 Calcium 8.5 mg/dL (8.4-10.2) 09/26/17 06:00 Total Bilirubin 0.9 mg/dL (0.2-1.3) 09/25/17 11:10 AST 45 U/L (17-59) 09/25/17 11:10 ALT 69 U/L (21-72) 09/25/17 11:10 Alkaline Phosphatase 112 U/L (38-126) 09/25/17 11:10 Troponin I 0.033 ng/mL (0.000-0.034) 09/25/17 11:10 Total Protein 6.4 g/dL (6.3-8.2) 09/25/17 11:10 Albumin 3.6 g/dL (3.5-5.0) 09/25/17 11:10 Urine Color Yellow 09/25/17 11:10 Urine Appearance Clear (Clear) 09/25/17 11:10 Urine pH 6.5 (5.0-8.0) 09/25/17 11:10 Ur Specific Gary 1.013 (1.001-1.035) 09/25/17 11:10 Urine Protein 3+ (Negative) H 09/25/17 11:10 Urine Glucose (UA) Trace (Negative) H 09/25/17 11:10 Urine Ketones 1+ (Negative) H 09/25/17 11:10 Urine Blood Small (Negative) H 09/25/17 11:10 Urine Nitrite Negative (Negative) 09/25/17 11:10 Urine Bilirubin 2+ (Negative) H 09/25/17 11:10 Urine Urobilinogen <2.0 mg/dL (<2.0) 09/25/17 11:10 Ur Leukocyte Esterase Negative (Negative) 09/25/17 11:10 Urine RBC 5 /hpf (0-5) 09/25/17 11:10 Urine WBC 1 /hpf (0-5) 09/25/17 11:10 Urine Bacteria Rare /hpf (None) H 09/25/17 11:10 Hyaline Casts 1 /lpf (0-2) 09/25/17 11:10 Urine Mucus Rare /hpf (None) H 09/25/17 11:10 Influenza Type A RNA Not Detected (Not Detectd) 09/25/17 18:13 Influenza Type B (PCR) Not Detected (Not Detectd) 09/25/17 18:13 Assessment and Plan (1) Fever Current Visit: No Status: Acute Code(s): R50.9 - FEVER, UNSPECIFIED SNOMED Code(s): 827720579 (2) Leukocytosis Current Visit: No Status: Acute Code(s): D72.829 - ELEVATED WHITE BLOOD CELL COUNT, UNSPECIFIED SNOMED Code(s): 320958740 (3) Multifocal pneumonia Narrative/Plan: 57-year-old male presents to Hospital feeling very poorly. Having fever chills shortness of breath cough some minimal sputum production and generalized malaise. His symptoms progressed and he felt very weak and ill. By the presents to Hospital were he has high-grade fever with chills evidence of leukocytosis. Influenza testing is negative. Imaging studies reveal evidence of multifocal pneumonia. Lactic acid was normal. At admission there was evidence of acute renal failure also that is now improved with evidence of hydration. He does have poorly controlled blood sugars and A1c of 8.7. Is noted the patient has evidence of multifocal pneumonia this could be viral but with the patient's history concerns would be to underlying bacterial infection. Has received Rocephin and azithromycin. We'll check for Legionella and Mycoplasma. Sputum cultures and blood cultures in process. Concern this could be a viral process, if he has worsening deep lung cultures would be helpful. He has a significant history of MRSA infection and constantly vancomycin was added pending above culture data. Continue supportive care . Patient relates doing considerably better today. He was and chills have resolved. Denies any other interm new troubles. Current Visit: Yes Status: Acute Code(s): J18.9 - PNEUMONIA, UNSPECIFIED ORGANISM SNOMED Code(s): 474435320
[2017-09-27 06:20] LABS: Glucose,Whole Blood 176 mg/dL (75-99)
[2017-09-27] MEDS: metFORMIN 500 MG TAB PO SCH ×2 (06:33→17:12)
[2017-09-27] MEDS: INSULIN ASPART 100 UNIT/ML 1 ML 10 ML VIAL SQ SCH ×4 (06:33→21:13)
[2017-09-27 06:47] LABS: Mycoplasma IgM Antibody 0.05 INDEX (<=0.90)
[2017-09-27 06:48] LABS: Anisocytosis Slight; Basophils % (A) 0 %; Eosinophils % (A) 1 %; HCT 30.1 % (39.0-53.0); Hypochromasia Marked; Lymphocytes # (A) 0.6 k/uL (1.0-4.8); Lymphocytes % (A) 8 %; MCH 24.6 pg (25.0-35.0); MCHC 29.7 g/dL (31.0-37.0); MCV 82.8 fL (80.0-100.0); Mean Platelet Volume 7.2; Monocytes # (A) 0.4 k/uL (0-1.0); Monocytes % (A) 7 %; Neutrophils # (A) 5.5 k/uL (1.3-7.7); Neutrophils % (A) 82 %; Platelet Count 216 k/uL (150-450); RBC 3.64 m/uL (4.30-5.90); RDW 16.9 % (11.5-15.5); WBC 6.7 k/uL (3.8-10.6)
[2017-09-27 06:57] LABS: Anion Gap 7 mmol/L; Blood Urea Nitrogen 26 mg/dL (9-20); Calcium 8.3 mg/dL (8.4-10.2); Carbon Dioxide 30 mmol/L (22-30); Chloride 102 mmol/L (98-107); Glucose 157 mg/dL (74-99); Potassium 4.2 mmol/L (3.5-5.1); Sodium 139 mmol/L (137-145)
[2017-09-27] MEDS: BUDESONIDE 0.5 MG/2 ML NEBU INHALATION SCH ×2 (07:36→20:27)
[2017-09-27] MEDS: HYDROcodone/APAP 10-325MG 1 EACH TAB PO PRN ×3 (09:05→19:01)
[2017-09-27] MEDS: LISINOPRIL 5 MG TAB PO SCH (09:06)
[2017-09-27] MEDS: HYDROCORTISONE 20 MG TAB PO SCH (09:06)
[2017-09-27] MEDS: DULoxetine HCL 30 MG CAPSULE.DR PO SCH ×2 (09:06→19:56)
[2017-09-27] MEDS: GABAPENTIN 400 MG CAP PO SCH ×4 (09:06→19:57)
[2017-09-27] MEDS: FAMOTIDINE 20 MG TAB PO SCH ×2 (09:06→19:57)
[2017-09-27] MEDS: HEPARIN SODIUM,PORCINE 5,000 UNIT/ML 1 ML VIAL SQ SCH ×2 (09:06→19:57)
[2017-09-27] MEDS ORDERED: VANCOMYCIN TROUGH DUE 1 EACH MISC MISCELLANE ONE (11:00)
[2017-09-27] MEDS: IPRATROPIUM-ALBUTEROL 3 ML NEB INHALATION SCH ×3 (11:05→20:27)
[2017-09-27] MEDS: IBUPROFEN 600 MG TAB PO SCH ×3 (11:25→21:47)
[2017-09-27] MEDS: cefTRIAXone IN SWFI 1,000 MG/10 ML SYRINGE IVP SCH (11:25)
[2017-09-27 12:04] LABS: Glucose,Whole Blood 262 mg/dL (75-99)
[2017-09-27] MEDS: VANCOMYCIN 1,500 MG in SODIUM CHLORIDE 0.9% 250 ML IVPB SCH ×2 (12:21→23:42)
[2017-09-27] MEDS ORDERED: Magnesium Replacement Protocol 1 EACH MISC MISCELLANE PRN (13:38)
--- NOTE | 2017-09-27 14:48 | P.PN ---
Subjective Progress Note Date: 09/27/17 Principal diagnosis: Acute hypoxic respiratory failure, bilateral multifocal pneumonia, sepsis, altered mental status related to above 09/27/2017, and seen evaluated examined during the rounds on the selective care respirator status slightly better interstitial edema and swelling swelling on the lower extremity has improved as well ingestion is improved but still get short of breath currently patient is on BiPAP he is using at nighttime and when necessary during the day his setting includes a IPAP of 12 EPAP of 5, saturation have been more stabilized is tolerating antibiotics fairly well diuresing well as well 09/26/2017, patient seen and evaluated examined during the rounds patient has significant desaturation over the night chest up down into 70s 80s even with supplemental oxygen worsening Petrin however noted more during sleep, patient has been initiated on BiPAP with improvement in saturation into the low 90s and patient able to sleep better patient continued to have cough congestion and breathing difficulties security however slightly better compared to yesterday, currently patient is on breathing treatments steroids and antibiotics and being treated for community-acquired pneumonia as well as acute hypoxic restrictive failure advised patient to bring his CPAP machine from home C can use it at nighttime once more stable Mr. Hester is well-known to me is a 57-year-old male with history of chronic persistent asthma severe COPD as well as obstructive sleep apnea patient has been on home CPAP but does not use oxygen he is on breathing treatments as well this patient has not been doing very well for the last 7-10 days with increased cough shortness of breath and sputum production symptoms started with upper respiratory type of process to progressive worsening of shortness or decided to come into the hospital patient has been noted to have oxygen saturation of only 83% on room air however with the supplemental oxygen 2 L improved to 92-93%, patient is being admitted into the hospital for pneumonia, on specific questioning he denies hemoptysis but does complaining of chills feed spiking fever off and on his been more short of breath than baseline his appetite has been poor he however has been taking all of his medications Objective - Vital Signs Vital signs: Vital Signs Temp 99 F 09/27/17 09:00 Pulse 83 09/27/17 11:24 Resp 18 09/27/17 11:24 BP 148/84 09/27/17 11:24 Pulse Ox 98 09/27/17 11:24 Intake & Output 09/26/17 09/27/17 09/27/17 18:59 06:59 18:59 Intake Total 512 120 Output Total 250 Balance 262 120 Weight 95.5 kg Intake: IV 40 0.9 40 Oral 472 120 Output: Urine 250 Other: Voiding Method Urinal Urinal # Voids 1 4 1 - Exam General appearance: mild distress, obese - EENT Eyes: EOMI, PERRLA Ears: bilateral: normal - Neck Neck: normal ROM Carotids: bilateral: upstroke normal, bruit absent Thyroid: bilateral: normal size - Respiratory Respiratory: bilateral: rhonchi, wheezing, prolonged expiration, prolonged inspiration, diminished, dullness, rales improved compared to yesterday's exam - Cardiovascular Rhythm: regular Heart sounds: normal: S1, S2, no gallop rub or murmur - Gastrointestinal General gastrointestinal: distended, soft - Neurologic Neurologic: CNII-XII intact - Musculoskeletal Musculoskeletal: gait normal, generalized weakness, strength equal bilaterally, trace bilateral trace to +1 edema - Psychiatric Psychiatric: A&O x's 3, appropriate affect, intact judgment & insight - Labs CBC & Chem 7: 09/27/17 06:03 09/27/17 06:03 Labs: Abnormal Lab Results - Last 24 Hours (Table) 09/25/17 09/26/17 09/26/17 Range/Units 11:10 16:16 20:59 RBC (4.30-5.90) m/uL Hgb (13.0-17.5) gm/dL Hct (39.0-53.0) % MCH (25.0-35.0) pg MCHC (31.0-37.0) g/dL RDW (11.5-15.5) % Lymphocytes # (1.0-4.8) k/uL BUN (9-20) mg/dL Glucose (74-99) mg/dL POC Glucose (mg/dL) 308 H 221 H (75-99) mg/dL Calcium (8.4-10.2) mg/dL Magnesium (1.6-2.3) mg/dL Mycoplasma pneumon IgG 1.70 H (<=0.90) INDEX 09/27/17 09/27/17 09/27/17 Range/Units 06:03 06:03 06:17 RBC 3.64 L (4.30-5.90) m/uL Hgb 9.0 L D (13.0-17.5) gm/dL Hct 30.1 L (39.0-53.0) % MCH 24.6 L (25.0-35.0) pg MCHC 29.7 L (31.0-37.0) g/dL RDW 16.9 H (11.5-15.5) % Lymphocytes # 0.6 L (1.0-4.8) k/uL BUN 26 H (9-20) mg/dL Glucose 157 H (74-99) mg/dL POC Glucose (mg/dL) 176 H (75-99) mg/dL Calcium 8.3 L (8.4-10.2) mg/dL Magnesium (1.6-2.3) mg/dL Mycoplasma pneumon IgG (<=0.90) INDEX 09/27/17 09/27/17 Range/Units 11:09 11:58 RBC (4.30-5.90) m/uL Hgb (13.0-17.5) gm/dL Hct (39.0-53.0) % MCH (25.0-35.0) pg MCHC (31.0-37.0) g/dL RDW (11.5-15.5) % Lymphocytes # (1.0-4.8) k/uL BUN (9-20) mg/dL Glucose (74-99) mg/dL POC Glucose (mg/dL) 262 H (75-99) mg/dL Calcium (8.4-10.2) mg/dL Magnesium 1.3 L (1.6-2.3) mg/dL Mycoplasma pneumon IgG (<=0.90) INDEX Microbiology - Last 24 Hours (Table) 09/25/17 11:10 Blood Culture - Preliminary Blood No Growth after 48 hours 09/26/17 01:16 Gram Stain - Preliminary Sputum Sputum Culture - Preliminary Presumptive Staph aureus 09/25/17 11:10 Urine Culture - Final Urine,Voided Assessment and Plan Assessment: Bilateral pneumonia, likely mixed bacterial community-acquired Acute hypoxic respiratory failure Left lower lobe density/nodule likely related to pneumonia but occult neoplasm cannot be excluded Chronic persistent asthma and severe COPD Influenza A pneumonia cannot be excluded Obstructive sleep apnea Hypertension hypertensive cardiovascular disease Chronic adrenal insufficiency on maintenance dose with the Cortef Hyperglycemia and diabetes mellitus Hypothyroidism Coronary artery disease with history of multiple stent placement History of complicated pneumonia in the past requiring thoracotomy and chest tube placement History of leg wound infection related to MRSA Plan: We will obtain a follow-up chest x-ray PA and lateral view Care plan reviewed and will put patient on breathing treatments with DuoNeb and Pulmicort, and Zithromax maintain patient on oxygen and maintain patient on DVT and peptic ulcer disease prophylaxis will check patient for influenza A as well. , we'll maintain patient on BiPAP once well if he more stable CPAP to be initiated on culture results and report with further recommendations pending Time with Patient: Greater than 30
--- NOTE | 2017-09-27 15:23 | P.PN ---
Subjective Progress Note Date: 09/27/17 57-year-old male who presents to emergency room on 09/25/2017 with a chief complaint of generalized weakness, worsening cough, and shortness of breath 3 days. 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 He has also had a myocardial infarction 2006 and 2007. His past surgical history includes bowel resection, cholecystectomy, coronary artery bypass graft, heart catheterization with multiple stents, hernia repair, and joint replacements. In the emergency room, a chest x-ray was completed which was negative for an acute process. He underwent a CT of the chest to rule out a pulmonary embolus which was negative for PE but did reveal bilateral infiltrates suspicious for multifocal pneumonia. Additionally a 9 mm nodule in the right upper lobe and 1.2 cm nodule in the left lower lobe was found. A follow-up computed tomography scan is recommended after treatment to rule out neoplasm. Laboratory studies revealed sodium 141. Potassium 4.5. BUN 16. Creatinine 0.66. WBC 12.4. Hemoglobin 11.6. Troponin 0.033. Lactic acid 1.4. Hemoglobin A1c 8.5%. Testing for influenza A and B was negative. He was admitted to the hospital under the care of Dr. Romero. Consultations were placed to infectious disease and pulmonology. 09/26/2017 The patient was seen and examined at the bedside on rounds with Dr. Romero. The patient is currently wearing a BiPAP. He remains lethargic but is arousable to verbal stimuli. Nursing is at the bedside and is in the process of transitioning the patient to nasal cannula so he can attempt to eat breakfast. He denies nausea or vomiting. He remains febrile with a temperature this morning of 101.2F axillary. Urine cultures and blood cultures are currently pending. He was evaluated by Dr. Hardin, infectious disease. He remains on Rocephin and azithromycin. Vancomycin was also added to his regimen. Legionella and Mycoplasma have been ordered and results are currently pending. Sputum culture is currently pending. He denies any pain or discomfort at this time. Denies any additional concerns or complaints. 09/27/2017 Patient seen and examined the bedside in rounds Dr. Romero. The patient appears much more awake this morning. His respiratory status seems to be improving. He is on a nasal cannula with oxygen saturations greater than 92%. White count this morning is 6.7. His temperature this morning was 99.0. Blood cultures are negative at the 24 hour solange. Urine culture is negative at the 18 hour solange. Sputum culture is positive for presumptive Staphylococcus aureus. Mycoplasma pneumoniae IgG 1.70 and IgM 0.05. Infectious disease on consult. The patient remains on Rocephin and vancomycin. The patient is complaining of double vision which she states is new for him. He states that it started late last night and has continued throughout this morning. Objective - Vital Signs Vital signs: Vital Signs Temp 99 F 09/27/17 09:00 Pulse 80 09/27/17 11:07 Resp 16 09/27/17 09:00 BP 133/65 09/27/17 09:00 Pulse Ox 97 09/27/17 09:00 Intake & Output 09/26/17 09/27/17 09/27/17 18:59 06:59 18:59 Intake Total 512 120 Output Total 250 Balance 262 120 Weight 95.5 kg Intake: IV 40 0.9 40 Oral 472 120 Output: Urine 250 Other: Voiding Method Urinal Urinal # Voids 1 4 1 - Exam GENERAL: This is a 57-year-old male who appears more awake and in no acute distress at this time. HEENT: Head is atraumatic, normocephalic. Pupils are equal, round, and reactive to light. Sclerae anicteric. Conjunctivae are clear. Mucus membranes of the mouth are dry. Lips are chapped. Neck is supple. RESPIRATORY: Coarse with scattered rhonchi, worse on right than left, improved since yesterday. Patient maintaining oxygen saturation greater than 92% on nasal cannula. No chest wall tenderness is noted on palpation or with deep breathing. CARDIOVASCULAR: Regular rate and rhythm. S1 and S2 noted. No systolic or diastolic murmur auscultated. No JVD noted. No S3 or S4 noted. GASTROINTESTINAL: Obese. No distention noted. Abdomen soft and round. Normal active bowel sounds auscultated x 4 quadrants. No pain or tenderness noted upon palpation. INTEGUMENTARY: No cyanosis. No jaundice. No rashes noted. No cellulitis noted. EXTREMITIES: 2+ peripheral pulses. +1 bilateral lower extremity edema. No calf tenderness noted. NEUROLOGIC: Cranial nerves II-XII intact. PSYCHIATRIC: Oriented X 3. Appropriate affect. Intact judgement and insight. - Labs CBC & Chem 7: 09/27/17 06:03 09/27/17 06:03 Labs: Abnormal Lab Results - Last 24 Hours (Table) 09/25/17 09/26/17 09/26/17 Range/Units 11:10 16:16 20:59 RBC (4.30-5.90) m/uL Hgb (13.0-17.5) gm/dL Hct (39.0-53.0) % MCH (25.0-35.0) pg MCHC (31.0-37.0) g/dL RDW (11.5-15.5) % Lymphocytes # (1.0-4.8) k/uL BUN (9-20) mg/dL Glucose (74-99) mg/dL POC Glucose (mg/dL) 308 H 221 H (75-99) mg/dL Calcium (8.4-10.2) mg/dL Mycoplasma pneumon IgG 1.70 H (<=0.90) INDEX 09/27/17 09/27/17 09/27/17 Range/Units 06:03 06:03 06:17 RBC 3.64 L (4.30-5.90) m/uL Hgb 9.0 L D (13.0-17.5) gm/dL Hct 30.1 L (39.0-53.0) % MCH 24.6 L (25.0-35.0) pg MCHC 29.7 L (31.0-37.0) g/dL RDW 16.9 H (11.5-15.5) % Lymphocytes # 0.6 L (1.0-4.8) k/uL BUN 26 H (9-20) mg/dL Glucose 157 H (74-99) mg/dL POC Glucose (mg/dL) 176 H (75-99) mg/dL Calcium 8.3 L (8.4-10.2) mg/dL Mycoplasma pneumon IgG (<=0.90) INDEX Microbiology - Last 24 Hours (Table) 09/26/17 01:16 Gram Stain - Preliminary Sputum 09/25/17 11:10 Blood Culture - Preliminary Blood No Growth after 24 hours 09/25/17 11:10 Urine Culture - Final Urine,Voided Assessment and Plan Plan: ASSESSMENT: Bilateral pneumonia of right upper lobe and bilateral lower lobes, present on admission, likely community-acquired Sepsis with leukocytosis and fever, secondary to above, improving Acute hypoxic respiratory failure secondary to above, improving 1.2 cm left lower lobe nodule and 9mm right upper lobe nodule, likely related to pneumonia but neoplasm cannot be excluded at this time New onset double vision, etiology unclear at this time Chronic obstructive pulmonary disease and chronic persistent asthma Diabetes mellitus, type II, hemoglobin A1c 8.5% Coronary artery disease with previous coronary artery bypass grafting and previous stent placement Previous pneumonias requiring thoracotomy and chest tube placement Previous cellulitis with MRSA Obstructive sleep apnea Chronic adrenal insufficiency, maintained on Cortef Hyperlipidemia Osteoarthritis Hypothyroidism Hypomagnesemia Obesity: BMI 37.3 PLAN: -Pulmonology on consult. Appreciate recommendations and input -Continue breathing treatments -Patient will require repeat CT on an outpatient basis to evaluate pulmonary nodules -Infectious disease on consult. Appreciate recommendations and input -Antibiotic regimen per Dr. Hardin. Currently on Rocephin and vancomycin -Await results of Legionella -Consult Dr. Greenwood per Dr Romero for double vision. Await further recommendations and input -Restart fentanyl patch today -Monitor fevers. Tylenol PRN -Capillary blood glucose Accu-Cheks before meals and at bedtime -NovoLog sliding scale coverage before meals and at bedtime -Continue Levemir 25 units at bedtime -Replace magnesium per protocol -Home meds as appropriate -Monitor labs -GI prophylaxis: Pepcid 20 mg by mouth twice a day -DVT prophylaxis: Heparin 5000 units subcu every 12 hours -Monitor vital signs and address as appropriate -PT/OT consult -Discharge planning: Patient currently lives at home and would like to return home at the time of discharge. Will reevaluate as patient progresses. -Further recommendations pending patient's course Nurse practitioner note has been reviewed by physician. Signing provider agrees with the documented findings, assessment, and plan of care.
[2017-09-27] MEDS: MAGNESIUM SULFATE-D5W PMX 1 GM in DEXTROSE/WATER 1 100ML.BAG IVPB SCH ×3 (15:42→17:51)
--- NOTE | 2017-09-27 15:47 | XR ---
EXAMINATION TYPE: XR chest 2V DATE OF EXAM: 09/27/2017 COMPARISON: 09/25/2017 HISTORY: Multifocal pneumonia TECHNIQUE: Frontal and lateral views of the chest are obtained. FINDINGS: The previously seen multifocal pneumonia on the prior chest CT is not well visualized radi ographically. Note is made of most confluent within the right upper lobe on the prior CT report. No s uspicious opacity seen within the right upper lobe. Mild interstitial prominence is unchanged. Cardiomegaly and post CABG changes of the chest as well as anterior cervical fusion device are noted. Mild multilevel degenerative changes of the thoracic spine are seen. IMPRESSION: Multifocal patchy reticular opacities representing multifocal pneumonia on the prior [facility] st CT are not well defined radiographically.
[2017-09-27 16:30] LABS: Glucose,Whole Blood 251 mg/dL (75-99)
[2017-09-27] MEDS: amLODIPine 5 MG TAB PO SCH (19:56)
[2017-09-27] MEDS: LEVOTHYROXINE 50 MCG TAB PO SCH (19:56)
[2017-09-27] MEDS: MONTELUKAST 10 MG TAB PO SCH (19:57)
[2017-09-27] MEDS: ATORVASTATIN 40 MG TAB PO SCH (19:57)
[2017-09-27] MEDS: ASPIRIN 81 MG PO SCH (19:57)
[2017-09-27 21:07] LABS: Glucose,Whole Blood 319 mg/dL (75-99)
[2017-09-27] MEDS: INSULIN DETEMIR 100 UNIT/ML 10 ML VIAL SQ SCH (21:14)
--- NOTE | 2017-09-27 21:56 | P.PN ---
Subjective Progress Note Date: 09/27/17 Principal diagnosis: fever 57-year-old male well-known to the infectious disease service for as many bouts of sepsis last year as well as the bout of septic shock with MRAs infection to his right hand and persistent bacteremia that eventually cleared up several years ago. Over time he's been doing relatively well and even has had improvement of his gout and psoriasis. Patient relates over the last many days he's not been feeling well. He's had an upper respiratory infection associated with increasing shortness of cough fever and chill. He became ill enough that his then brought him to hospital. Is now evidence of fever chills shortness of breath cough and pneumonia and with this the infectious diseases consultation was requested. The patient relates he still feels very poorly however the nausea and emesis that he was suffering from has now resolved. Patient relates he feels considerably better today. Relates that his fevers have improved, his energy levels improved. He sitting up reading. Does relate to an episode earlier in the day when he was having some double vision this is now completely resolved and he is reading the newspaper. Objective - Vital Signs Vital signs: Vital Signs Temp 97.8 F 09/27/17 15:55 Pulse 91 09/27/17 20:42 Resp 16 09/27/17 17:18 BP 133/81 09/27/17 15:55 Pulse Ox 93 L 09/27/17 17:18 Intake & Output 09/27/17 09/27/17 09/28/17 06:59 18:59 06:59 Intake Total 1150 Output Total 300 Balance 850 Weight 95.5 kg Intake: Intake, IV Titration 550 Amount Magnesium Sulfate-D5w Pmx 300 1 gm In Dextrose/Water 1 100ml.bag @ 100 mls/hr IVPB Q1H [place] Rx#: [id number] Vancomycin 1,500 mg In 250 Sodium Chloride 0.9% 250 ml @ 125 mls/hr IVPB Q12H [place] Rx#:[id number] Oral 600 Output: Urine 300 Other: Voiding Method Urinal # Voids 4 2 # Bowel Movements 0 - Exam 57-year-old male much more comfortable today. HEENT: Anicteric conjunctiva are pink and moist nasal mucosa grossly intact without significant lesions, there is no thrush. Extraocular movements are intact Neck: The neck is supple without significant lymphadenopathy or thyromegaly. Lungs: Symmetrical air entry is noted, expiratory wheezes are scattered. Basilar crackles are heard. No dullness or egophony. Heart: Irregular with a soft S4 There is no significant murmur click or rub, PMI was nondisplaced. Abdomen: Positive bowel sounds soft and nontender without palpable masses or organomegaly. There was no guarding or rebound. Extremities: The upper extremities have excellent pulses they are symmetric, no significant petechiae or telangiectasia. No splinter hemorrhages were noted. The area of prior significant infection of the right hand remains well healed. Left arm without acute difficulties. Lower extremities have trace edema. Neuro: Awake alert oriented to person place and time. There are no acute new gross focal sensory motor deficits. - Labs CBC & Chem 7: 09/27/17 06:03 09/27/17 06:03 Labs: Abnormal Lab Results - Last 24 Hours (Table) 09/25/17 09/27/17 09/27/17 Range/Units 11:10 06:03 06:03 RBC 3.64 L (4.30-5.90) m/uL Hgb 9.0 L D (13.0-17.5) gm/dL Hct 30.1 L (39.0-53.0) % MCH 24.6 L (25.0-35.0) pg MCHC 29.7 L (31.0-37.0) g/dL RDW 16.9 H (11.5-15.5) % Lymphocytes # 0.6 L (1.0-4.8) k/uL BUN 26 H (9-20) mg/dL Glucose 157 H (74-99) mg/dL POC Glucose (mg/dL) (75-99) mg/dL Calcium 8.3 L (8.4-10.2) mg/dL Magnesium (1.6-2.3) mg/dL Mycoplasma pneumon IgG 1.70 H (<=0.90) INDEX 09/27/17 09/27/17 09/27/17 Range/Units 06:17 11:09 11:58 RBC (4.30-5.90) m/uL Hgb (13.0-17.5) gm/dL Hct (39.0-53.0) % MCH (25.0-35.0) pg MCHC (31.0-37.0) g/dL RDW (11.5-15.5) % Lymphocytes # (1.0-4.8) k/uL BUN (9-20) mg/dL Glucose (74-99) mg/dL POC Glucose (mg/dL) 176 H 262 H (75-99) mg/dL Calcium (8.4-10.2) mg/dL Magnesium 1.3 L (1.6-2.3) mg/dL Mycoplasma pneumon IgG (<=0.90) INDEX 09/27/17 09/27/17 Range/Units 16:22 21:03 RBC (4.30-5.90) m/uL Hgb (13.0-17.5) gm/dL Hct (39.0-53.0) % MCH (25.0-35.0) pg MCHC (31.0-37.0) g/dL RDW (11.5-15.5) % Lymphocytes # (1.0-4.8) k/uL BUN (9-20) mg/dL Glucose (74-99) mg/dL POC Glucose (mg/dL) 251 H 319 H (75-99) mg/dL Calcium (8.4-10.2) mg/dL Magnesium (1.6-2.3) mg/dL Mycoplasma pneumon IgG (<=0.90) INDEX Microbiology - Last 24 Hours (Table) 09/25/17 11:10 Blood Culture - Preliminary Blood No Growth after 48 hours 09/26/17 01:16 Gram Stain - Preliminary Sputum Sputum Culture - Preliminary Presumptive Staph aureus Laboratory Results WBC 6.7 k/uL (3.8-10.6) 09/27/17 06:03 RBC 3.64 m/uL (4.30-5.90) L 09/27/17 06:03 Hgb 9.0 gm/dL (13.0-17.5) L D 09/27/17 06:03 Hct 30.1 % (39.0-53.0) L 09/27/17 06:03 MCV 82.8 fL (80.0-100.0) 09/27/17 06:03 MCH 24.6 pg (25.0-35.0) L 09/27/17 06:03 MCHC 29.7 g/dL (31.0-37.0) L 09/27/17 06:03 RDW 16.9 % (11.5-15.5) H 09/27/17 06:03 Plt Count 216 k/uL (150-450) 09/27/17 06:03 Neutrophils % 82 % 09/27/17 06:03 Lymphocytes % 8 % 09/27/17 06:03 Monocytes % 7 % 09/27/17 06:03 Eosinophils % 1 % 09/27/17 06:03 Basophils % 0 % 09/27/17 06:03 Neutrophils # 5.5 k/uL (1.3-7.7) 09/27/17 06:03 Lymphocytes # 0.6 k/uL (1.0-4.8) L 09/27/17 06:03 Monocytes # 0.4 k/uL (0-1.0) 09/27/17 06:03 Eosinophils # 0.0 k/uL (0-0.7) 09/27/17 06:03 Basophils # 0.0 k/uL (0-0.2) 09/27/17 06:03 Hypochromasia Marked 09/27/17 06:03 Anisocytosis Slight 09/27/17 06:03 Microcytosis Slight 09/26/17 06:00 PT 10.2 sec (9.0-12.0) 09/25/17 11:10 INR 1.0 (<1.2) 09/25/17 11:10 APTT 22.9 sec (22.0-30.0) 09/25/17 11:10 Sodium 139 mmol/L (137-145) 09/27/17 06:03 Potassium 4.2 mmol/L (3.5-5.1) 09/27/17 06:03 Chloride 102 mmol/L (98-107) 09/27/17 06:03 Carbon Dioxide 30 mmol/L (22-30) 09/27/17 06:03 Anion Gap 7 mmol/L 09/27/17 06:03 BUN 26 mg/dL (9-20) H 09/27/17 06:03 Creatinine 1.02 mg/dL (0.66-1.25) 09/27/17 06:03 Est GFR (MDRD) Af Amer >60 (>60 ml/min/1.73 sqM) 09/27/17 06:03 Est GFR (MDRD) Non-Af >60 (>60 ml/min/1.73 sqM) 09/27/17 06:03 Glucose 157 mg/dL (74-99) H 09/27/17 06:03 POC Glucose (mg/dL) 319 mg/dL (75-99) H 09/27/17 21:03 POC Glu [employer] Shawna Quan 09/27/17 21:[address] Glu mg/dL 197 09/25/17 11:10 Hemoglobin A1c 8.5 % (4.0-6.0) H 09/25/17 11:10 Plasma Lactic Acid Freddy 1.4 mmol/L (0.7-2.0) 09/25/17 11:10 Calcium 8.3 mg/dL (8.4-10.2) L 09/27/17 06:03 Magnesium 1.3 mg/dL (1.6-2.3) L 09/27/17 11:09 Total Bilirubin 0.9 mg/dL (0.2-1.3) 09/25/17 11:10 AST 45 U/L (17-59) 09/25/17 11:10 ALT 69 U/L (21-72) 09/25/17 11:10 Alkaline Phosphatase 112 U/L (38-126) 09/25/17 11:10 Troponin I 0.033 ng/mL (0.000-0.034) 09/25/17 11:10 Total Protein 6.4 g/dL (6.3-8.2) 09/25/17 11:10 Albumin 3.6 g/dL (3.5-5.0) 09/25/17 11:10 Urine Color Yellow 09/25/17 11:10 Urine Appearance Clear (Clear) 09/25/17 11:10 Urine pH 6.5 (5.0-8.0) 09/25/17 11:10 Ur Specific [place] 1.013 (1.001-1.035) 09/25/17 11:10 Urine Protein 3+ (Negative) H 09/25/17 11:10 Urine Glucose (UA) Trace (Negative) H 09/25/17 11:10 Urine Ketones 1+ (Negative) H 09/25/17 11:10 Urine Blood Small (Negative) H 09/25/17 11:10 Urine Nitrite Negative (Negative) 09/25/17 11:10 Urine Bilirubin 2+ (Negative) H 09/25/17 11:10 Urine Urobilinogen <2.0 mg/dL (<2.0) 09/25/17 11:10 Ur Leukocyte Esterase Negative (Negative) 09/25/17 11:10 Urine RBC 5 /hpf (0-5) 09/25/17 11:10 Urine WBC 1 /hpf (0-5) 09/25/17 11:10 Urine Bacteria Rare /hpf (None) H 09/25/17 11:10 Hyaline Casts 1 /lpf (0-2) 09/25/17 11:10 Urine Mucus Rare /hpf (None) H 09/25/17 11:10 Vancomycin Trough 16.1 ug/mL 09/27/17 11:09 Influenza Type A RNA Not Detected (Not Detectd) 09/25/17 18:13 Influenza Type B (PCR) Not Detected (Not Detectd) 09/25/17 18:13 Urine Legionella Ag Not detected (Not detected) 09/26/17 07:30 Mycoplasma pneumon IgG 1.70 INDEX (<=0.90) H 09/25/17 11:10 Mycoplasma pneumon IgM 0.05 INDEX (<=0.90) 09/25/17 11:10 Microbiology 09/25/17 11:10 Blood Blood Culture - Preliminary No Growth after 48 hours 09/26/17 01:16 Sputum Gram Stain - Preliminary 09/26/17 01:16 Sputum Sputum Culture - Preliminary Presumptive Staph aureus 09/25/17 11:10 Urine,Voided Urine Culture - Final Microbiology 09/25/17 11:10 Blood Blood Culture - Preliminary No Growth after 48 hours 09/26/17 01:16 Sputum Gram Stain - Preliminary 09/26/17 01:16 Sputum Sputum Culture - Preliminary Presumptive Staph aureus 09/25/17 11:10 Urine,Voided Urine Culture - Final - Imaging and Cardiology Chest x-ray: report reviewed (No new infiltrate) Assessment and Plan (1) Fever Current Visit: No Status: Acute Code(s): R50.9 - FEVER, UNSPECIFIED SNOMED Code(s): 593195747 (2) Leukocytosis Current Visit: No Status: Acute Code(s): D72.829 - ELEVATED WHITE BLOOD CELL COUNT, UNSPECIFIED SNOMED Code(s): 701828233 (3) Multifocal pneumonia Narrative/Plan: 57-year-old male presents to Hospital feeling very poorly. Having fever chills shortness of breath cough some minimal sputum production and generalized malaise. His symptoms progressed and he felt very weak and ill. By the presents to Hospital were he has high-grade fever with chills evidence of leukocytosis. Influenza testing is negative. Imaging studies reveal evidence of multifocal pneumonia. Lactic acid was normal. At admission there was evidence of acute renal failure also that is now improved with evidence of hydration. He does have poorly controlled blood sugars and A1c of 8.7. Is noted the patient has evidence of multifocal pneumonia this could be viral but with the patient's history concerns would be to underlying bacterial infection. Has received Rocephin and azithromycin. We'll check for Legionella and Mycoplasma. Sputum cultures and blood cultures in process. Concern this could be a viral process, if he has worsening deep lung cultures would be helpful. He has a significant history of MRSA infection and constantly vancomycin was added pending above culture data. Current sputum culture data does show a staph aureus await if this is MRSA. Continue aggressive antibiotic therapy. Fortunately is having improvement. Continue supportive care . Patient relates doing considerably better today. He was and chills have resolved. Denies any other interm new troubles. Current Visit: Yes Status: Acute Code(s): J18.9 - PNEUMONIA, UNSPECIFIED ORGANISM SNOMED Code(s): 514900960
[2017-09-28 06:02] LABS: Glucose,Whole Blood 133 mg/dL (75-99)
[2017-09-28] MEDS: metFORMIN 500 MG TAB PO SCH ×2 (06:46→17:09)
[2017-09-28] MEDS: INSULIN ASPART 100 UNIT/ML 1 ML 10 ML VIAL SQ SCH ×7 (06:47→21:23)
[2017-09-28] MEDS: HYDROcodone/APAP 10-325MG 1 EACH TAB PO PRN ×4 (06:50→23:48)
[2017-09-28 06:57] LABS: Anisocytosis Slight; Basophils % (A) 1 %; Eosinophils # (A) 0.1 k/uL (0-0.7); Eosinophils % (A) 2 %; HCT 35.5 % (39.0-53.0); Hypochromasia Marked; Lymphocytes # (A) 0.8 k/uL (1.0-4.8); Lymphocytes % (A) 15 %; MCH 23.6 pg (25.0-35.0); MCV 84.2 fL (80.0-100.0); Monocytes # (A) 0.3 k/uL (0-1.0); Monocytes % (A) 6 %; Neutrophils # (A) 3.7 k/uL (1.3-7.7); Neutrophils % (A) 73 %; Platelet Count 272 k/uL (150-450); RBC 4.21 m/uL (4.30-5.90); RDW 18.3 % (11.5-15.5); WBC 5.1 k/uL (3.8-10.6)
[2017-09-28 07:08] LABS: Anion Gap 12 mmol/L; Blood Urea Nitrogen 35 mg/dL (9-20); Carbon Dioxide 29 mmol/L (22-30); Chloride 104 mmol/L (98-107); Glucose 131 mg/dL (74-99); Magnesium 2.1 mg/dL (1.6-2.3); Potassium 4.7 mmol/L (3.5-5.1); Sodium 145 mmol/L (137-145)
[2017-09-28] MEDS: IPRATROPIUM-ALBUTEROL 3 ML NEB INHALATION SCH ×4 (08:28→20:21)
[2017-09-28] MEDS: BUDESONIDE 0.5 MG/2 ML NEBU INHALATION SCH ×2 (08:28→20:21)
[2017-09-28] MEDS: HEPARIN SODIUM,PORCINE 5,000 UNIT/ML 1 ML VIAL SQ SCH ×2 (08:40→19:55)
[2017-09-28] MEDS: GABAPENTIN 400 MG CAP PO SCH ×4 (08:40→19:56)
[2017-09-28] MEDS: DULoxetine HCL 30 MG CAPSULE.DR PO SCH ×2 (08:41→19:56)
[2017-09-28] MEDS: LISINOPRIL 5 MG TAB PO SCH (08:41)
[2017-09-28] MEDS: FAMOTIDINE 20 MG TAB PO SCH ×2 (08:41→19:57)
[2017-09-28] MEDS: HYDROCORTISONE 20 MG TAB PO SCH (08:41)
[2017-09-28] MEDS: IBUPROFEN 600 MG TAB PO SCH ×3 (08:43→23:19)
--- NOTE | 2017-09-28 10:27 | PN ---
PROGRESS NOTE He feels better today. His breathing is better. He is less short of breath and much more alert. 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 He has a past medical history of right lower lobe pneumonia. He had a parapneumonic effusion that led to a thoracotomy and chest tube placement 2014. He also had a cholecystectomy, coronary artery bypass graft, heart catheterization with multiple stents, hernia repair, and joint replacement. In the emergency room, he was found to have no negative process on chest x-ray, but when they did a CT scan suspecting pulmonary emboli they found suspicious infiltrates and multi focal pneumonia. In addition to that, a repeat chest x-ray completed yesterday showed those infiltrates now seen on a regular chest x-ray. The patient's microbiology at this point is coming back Staph aureus again checking this morning there is no diagnosis of whether this is MRSA yet or not. Initially, Infectious Disease was consulted so was Pulmonology and is he is on antibiotics accordingly. On 09/26/2017, myself and Sis Garcia, my nurse practitioner, rounded on him and the patient was wearing BiPAP. He was still quite lethargic, but arousable to verbal stimuli and at this time transition on nasal cannula had occurred. He was just beginning to eat breakfast, was very weak. He still had a.m. axillary temperature of 101.2 and even though he was denying nausea and vomiting. At that time, his urinary cultures and blood cultures were awaiting results. He had remained on Rocephin and azithromycin and vancomycin was added per Dr. Hardin. On 09/27, he was seen on rounds and he appeared much more awake. His respiratory status was improving. He had a nasal cannula and oxygen saturation greater than 92. His white count was 6.7 and had a 99 temperature. His blood cultures were negative. Urine culture was negative. His sputum was positive for Staph aureus. Mycoplasma IgM was normal and we are still waiting results of the Legionella that had been sent out by urine. He said he started to improve the night before. Today, I see him sitting up. He is well orientated to person, place, and thing. He says it is the best he has felt in several days. His appetite has returned. His pain still is moderately severe. At the bedside we discussed change in his use of scale for his diabetes per the badger distiller operator he is now seeing. REVIEW OF SYSTEMS: EYES: He is having no problems seeing. ENT. He has a dry mouth. NECK: He has no neck pain. CHEST: He says he is coughing up minimal amount of sputum and it is a clear to minimally yellow. CARDIAC: He not having any heart pain. No palpitations His shortness of breath has actually decreased. GI: No nausea. No vomiting. Appetite is picking up. No hematochezia. No melena. : No problems with urination. INTEGUMENTARY: He just has dry skin throughout. No evidence of cellulitis. NEUROLOGICALLY: He is not having any syncope or vertigo upon standing. He says that his strength in his arms and legs are fine. PSYCHIATRIC: He is alert well orientated to person, place, and thing. He is not depressed and he is not anxious. PHYSICAL EXAM: Physical exam shows vital signs of 97 temperature, heart rate 96, blood pressure 109/75 with a heart rate in the 60s. EYES: Pupils are equal, round, react to light and accommodation. ENT shows the throat to be normal. TMs are normal. No changes of abnormality of the tongue. Chest: There are some coarse rhonchi. Minimal amount of wheezes. No rales. Heart is sinus rhythm. Area of incision on the chest is seen. ABDOMEN: Soft, nontender with no organomegaly. He has arthritis in his hands and his wrists on range of motion. Decreased range of motion of the shoulders, hypertrophic changes of the knees. VASCULAR: He has got decreased pulses bilaterally in lower extremities. PSYCHIATRIC: Again there is no depression. There is no anxiety observed. ALLERGY: He has had some problems with allergies for years. He still has a runny nose, stuffy nose. LABS: Staph aureus presumptive on Gram stain. Cultures are not back yet. Hemoglobin today is 10 with a 5.1 WBC. He does have some marked hypochromasia. His MCV is normal. MCH is decreased. Creatinine is 1.1. BUN is 35. Sodium 145 and potassium of 4.7. ASSESSMENT: 1. Right upper lobe pneumonia. 2. Sepsis, sepsis with leukocytosis and fever. 3. Acute hypoxic respiratory failure. 4. Anemia probably multifactorial. 5. A 1.2 cm left lower lobe nodule and 9 mm in the right likely to be pneumonia but neoplasm of course cannot be ruled out. 6. double vision which has resolved today. 7. Chronic obstructive pulmonary disease. 8. Persistent asthma. 9. Diabetes type 2, being cared for by endocrinologist. 10.Multiple vessel bypass with also stent placement. 11.Previous history of cellulitis and methicillin-resistant Staphylococcus aureus. 12.Sleep apnea. 13.Chronic adrenal insufficiency on Cortef. 14.Hyperlipidemia. 15.Osteoarthritis. 16.Hypothyroid. 17.Hypomagnesemia. We are following this patient with Dr. Hardin and also with Pulmonology, Dr. Morton. Continue the same vancomycin plus Rocephin. Await results of Legionella. We consulted Dr. Greenwood for the double vision. Await his recommendation. At this time, we are changing his insulin to scale. Please refer to my orders. His prognosis is guarded. MMODL / IJN: [id number] /
[2017-09-28] MEDS: cefTRIAXone IN SWFI 1,000 MG/10 ML SYRINGE IVP SCH (11:07)
[2017-09-28] MEDS: VANCOMYCIN 1,500 MG in SODIUM CHLORIDE 0.9% 250 ML IVPB SCH ×2 (11:07→23:21)
[2017-09-28 11:22] LABS: Glucose,Whole Blood 222 mg/dL (75-99)
[2017-09-28 16:17] LABS: Glucose,Whole Blood 209 mg/dL (75-99)
--- NOTE | 2017-09-28 16:33 | P.PN ---
Subjective Progress Note Date: 09/28/17 Principal diagnosis: fever 57-year-old male well-known to the infectious disease service for as many bouts of sepsis last year as well as the bout of septic shock with MRAs infection to his right hand and persistent bacteremia that eventually cleared up several years ago. Over time he's been doing relatively well and even has had improvement of his gout and psoriasis. Patient relates over the last many days he's not been feeling well. He's had an upper respiratory infection associated with increasing shortness of cough fever and chill. He became ill enough that his then brought him to hospital. Is now evidence of fever chills shortness of breath cough and pneumonia and with this the infectious diseases consultation was requested. The patient relates he still feels very poorly however the nausea and emesis that he was suffering from has now resolved. Patient relates he feels considerably better today. Relates that his fevers have improved, his energy levels improved. He sitting up reading. Does relate to an episode when he was having some double vision this is now completely resolved and he is reading the newspaper. He feels very well at this point in time. Would like to try to go home if possible. Objective - Vital Signs Vital signs: Vital Signs Temp 98.3 F 09/28/17 12:00 Pulse 72 09/28/17 16:14 Resp 19 09/28/17 12:00 BP 115/47 09/28/17 12:00 Pulse Ox 94 L 09/28/17 12:00 Intake & Output 09/27/17 09/28/17 09/28/17 18:59 06:59 18:59 Intake Total 1150 250 760 Output Total 300 Balance 850 250 760 Weight 96.7 kg Intake: IV 250 280 0.9 30 Vancomycin 1,500 mg In 250 250 Sodium Chloride 0.9% 250 ml @ 125 mls/hr IVPB Q12H [facility] Rx#:[id number] Intake, IV Titration 550 Amount Magnesium Sulfate-D5w Pmx 300 1 gm In Dextrose/Water 1 100ml.bag @ 100 mls/hr IVPB Q1H [facility] Rx#: [id number] Vancomycin 1,500 mg In 250 Sodium Chloride 0.9% 250 ml @ 125 mls/hr IVPB Q12H [facility] Rx#:[id number] Oral 600 480 Output: Urine 300 Other: Voiding Method Urinal Toilet Toilet Urinal Urinal # Voids 2 1 # Bowel Movements 0 - Exam 57-year-old male much more comfortable today. HEENT: Anicteric conjunctiva are pink and moist nasal mucosa grossly intact without significant lesions, there is no thrush. Extraocular movements are intact Neck: The neck is supple without significant lymphadenopathy or thyromegaly. Lungs: Symmetrical air entry is noted, few scattered wheezes. Basilar crackles are improved. No dullness or egophony. Heart: Irregular with a soft S4 There is no significant murmur click or rub, PMI was nondisplaced. Abdomen: Positive bowel sounds soft and nontender without palpable masses or organomegaly. There was no guarding or rebound. Extremities: The upper extremities have excellent pulses they are symmetric, no significant petechiae or telangiectasia. No splinter hemorrhages were noted. The area of prior significant infection of the right hand remains well healed. Left arm without acute difficulties. Lower extremities have trace edema. Neuro: Awake alert oriented to person place and time. There are no acute new gross focal sensory motor deficits. - Labs CBC & Chem 7: 09/28/17 05:53 09/28/17 05:53 Labs: Abnormal Lab Results - Last 24 Hours (Table) 09/27/17 09/27/17 09/28/17 Range/Units 16:22 21:03 05:53 RBC 4.21 L (4.30-5.90) m/uL Hgb 10.0 L (13.0-17.5) gm/dL Hct 35.5 L (39.0-53.0) % MCH 23.6 L (25.0-35.0) pg MCHC 28.0 L (31.0-37.0) g/dL RDW 18.3 H (11.5-15.5) % Lymphocytes # 0.8 L (1.0-4.8) k/uL BUN (9-20) mg/dL Glucose (74-99) mg/dL POC Glucose (mg/dL) 251 H 319 H (75-99) mg/dL 09/28/17 09/28/17 09/28/17 Range/Units 05:53 05:59 11:13 RBC (4.30-5.90) m/uL Hgb (13.0-17.5) gm/dL Hct (39.0-53.0) % MCH (25.0-35.0) pg MCHC (31.0-37.0) g/dL RDW (11.5-15.5) % Lymphocytes # (1.0-4.8) k/uL BUN 35 H (9-20) mg/dL Glucose 131 H (74-99) mg/dL POC Glucose (mg/dL) 133 H 222 H (75-99) mg/dL 09/28/17 Range/Units 16:16 RBC (4.30-5.90) m/uL Hgb (13.0-17.5) gm/dL Hct (39.0-53.0) % MCH (25.0-35.0) pg MCHC (31.0-37.0) g/dL RDW (11.5-15.5) % Lymphocytes # (1.0-4.8) k/uL BUN (9-20) mg/dL Glucose (74-99) mg/dL POC Glucose (mg/dL) 209 H (75-99) mg/dL Microbiology - Last 24 Hours (Table) 09/25/17 11:10 Blood Culture - Preliminary Blood No Growth after 72 hours 09/26/17 01:16 Gram Stain - Preliminary Sputum Sputum Culture - Preliminary Presumptive Staph aureus Laboratory Results WBC 5.1 k/uL (3.8-10.6) 09/28/17 05:53 RBC 4.21 m/uL (4.30-5.90) L 09/28/17 05:53 Hgb 10.0 gm/dL (13.0-17.5) L 09/28/17 05:53 Hct 35.5 % (39.0-53.0) L 09/28/17 05:53 MCV 84.2 fL (80.0-100.0) 09/28/17 05:53 MCH 23.6 pg (25.0-35.0) L 09/28/17 05:53 MCHC 28.0 g/dL (31.0-37.0) L 09/28/17 05:53 RDW 18.3 % (11.5-15.5) H 09/28/17 05:53 Plt Count 272 k/uL (150-450) 09/28/17 05:53 Neutrophils % 73 % 09/28/17 05:53 Lymphocytes % 15 % 09/28/17 05:53 Monocytes % 6 % 09/28/17 05:53 Eosinophils % 2 % 09/28/17 05:53 Basophils % 1 % 09/28/17 05:53 Neutrophils # 3.7 k/uL (1.3-7.7) 09/28/17 05:53 Lymphocytes # 0.8 k/uL (1.0-4.8) L 09/28/17 05:53 Monocytes # 0.3 k/uL (0-1.0) 09/28/17 05:53 Eosinophils # 0.1 k/uL (0-0.7) 09/28/17 05:53 Basophils # 0.0 k/uL (0-0.2) 09/28/17 05:53 Hypochromasia Marked 09/28/17 05:53 Anisocytosis Slight 09/28/17 05:53 Microcytosis Slight 09/26/17 06:00 PT 10.2 sec (9.0-12.0) 09/25/17 11:10 INR 1.0 (<1.2) 09/25/17 11:10 APTT 22.9 sec (22.0-30.0) 09/25/17 11:10 Sodium 145 mmol/L (137-145) 09/28/17 05:53 Potassium 4.7 mmol/L (3.5-5.1) 09/28/17 05:53 Chloride 104 mmol/L (98-107) 09/28/17 05:53 Carbon Dioxide 29 mmol/L (22-30) 09/28/17 05:53 Anion Gap 12 mmol/L 09/28/17 05:53 BUN 35 mg/dL (9-20) H 09/28/17 05:53 Creatinine 1.14 mg/dL (0.66-1.25) 09/28/17 05:53 Est GFR (MDRD) Af Amer >60 (>60 ml/min/1.73 sqM) 09/28/17 05:53 Est GFR (MDRD) Non-Af >60 (>60 ml/min/1.73 sqM) 09/28/17 05:53 Glucose 131 mg/dL (74-99) H 09/28/17 05:53 POC Glucose (mg/dL) 209 mg/dL (75-99) H 09/28/17 16:16 POC Glu Glass Tube Bender ID Tyra Diallo 09/28/17 16:[address] Glu mg/dL 197 09/25/17 11:10 Hemoglobin A1c 8.5 % (4.0-6.0) H 09/25/17 11:10 Plasma Lactic Acid Freddy 1.4 mmol/L (0.7-2.0) 09/25/17 11:10 Calcium 9.0 mg/dL (8.4-10.2) 09/28/17 05:53 Magnesium 2.1 mg/dL (1.6-2.3) 09/28/17 05:53 Total Bilirubin 0.9 mg/dL (0.2-1.3) 09/25/17 11:10 AST 45 U/L (17-59) 09/25/17 11:10 ALT 69 U/L (21-72) 09/25/17 11:10 Alkaline Phosphatase 112 U/L (38-126) 09/25/17 11:10 Troponin I 0.033 ng/mL (0.000-0.034) 09/25/17 11:10 Total Protein 6.4 g/dL (6.3-8.2) 09/25/17 11:10 Albumin 3.6 g/dL (3.5-5.0) 09/25/17 11:10 Urine Color Yellow 09/25/17 11:10 Urine Appearance Clear (Clear) 09/25/17 11:10 Urine pH 6.5 (5.0-8.0) 09/25/17 11:10 Ur Specific [place] 1.013 (1.001-1.035) 09/25/17 11:10 Urine Protein 3+ (Negative) H 09/25/17 11:10 Urine Glucose (UA) Trace (Negative) H 09/25/17 11:10 Urine Ketones 1+ (Negative) H 09/25/17 11:10 Urine Blood Small (Negative) H 09/25/17 11:10 Urine Nitrite Negative (Negative) 09/25/17 11:10 Urine Bilirubin 2+ (Negative) H 09/25/17 11:10 Urine Urobilinogen <2.0 mg/dL (<2.0) 09/25/17 11:10 Ur Leukocyte Esterase Negative (Negative) 09/25/17 11:10 Urine RBC 5 /hpf (0-5) 09/25/17 11:10 Urine WBC 1 /hpf (0-5) 09/25/17 11:10 Urine Bacteria Rare /hpf (None) H 09/25/17 11:10 Hyaline Casts 1 /lpf (0-2) 09/25/17 11:10 Urine Mucus Rare /hpf (None) H 09/25/17 11:10 Vancomycin Trough 16.1 ug/mL 09/27/17 11:09 Influenza Type A RNA Not Detected (Not Detectd) 09/25/17 18:13 Influenza Type B (PCR) Not Detected (Not Detectd) 09/25/17 18:13 Urine Legionella Ag Not detected (Not detected) 09/26/17 07:30 Mycoplasma pneumon IgG 1.70 INDEX (<=0.90) H 09/25/17 11:10 Mycoplasma pneumon IgM 0.05 INDEX (<=0.90) 09/25/17 11:10 Microbiology 09/25/17 11:10 Blood Blood Culture - Preliminary No Growth after 72 hours 09/26/17 01:16 Sputum Gram Stain - Preliminary 09/26/17 01:16 Sputum Sputum Culture - Preliminary Presumptive Staph aureus 09/25/17 11:10 Urine,Voided Urine Culture - Final Assessment and Plan (1) Fever Current Visit: No Status: Acute Code(s): R50.9 - FEVER, UNSPECIFIED SNOMED Code(s): 953448545 (2) Leukocytosis Current Visit: No Status: Acute Code(s): D72.829 - ELEVATED WHITE BLOOD CELL COUNT, UNSPECIFIED SNOMED Code(s): 810774806 (3) Multifocal pneumonia Narrative/Plan: 57-year-old male presents to Hospital feeling very poorly. Having fever chills shortness of breath cough some minimal sputum production and generalized malaise. His symptoms progressed and he felt very weak and ill. By the presents to Hospital were he has high-grade fever with chills evidence of leukocytosis. Influenza testing is negative. Imaging studies reveal evidence of multifocal pneumonia. Lactic acid was normal. At admission there was evidence of acute renal failure also that is now improved with evidence of hydration. He does have poorly controlled blood sugars and A1c of 8.7. Is noted the patient has evidence of multifocal pneumonia this could be viral but with the patient's history concerns would be to underlying bacterial infection. Has received Rocephin and azithromycin. Legionella is negative as was mycoplasma. Sputum cultures and blood cultures in process. Still concerned this is a viral event that resulted in the secondary staphylococcal pneumonia although influenza was not proven. He has a significant history of MRSA infection and constantly vancomycin was added pending above culture data. Laboratory is now relating that he has staph aureus in his sputum and trimethoprim sulfamethoxazole will be ineffective choice. Constantly he is ready for discharge home on oral antibiotic therapy. It sent to the pharmacy. Fortunately is having improvement. Current Visit: Yes Status: Acute Code(s): J18.9 - PNEUMONIA, UNSPECIFIED ORGANISM SNOMED Code(s): 190930031
[2017-09-28] MEDS: amLODIPine 5 MG TAB PO SCH (19:56)
[2017-09-28] MEDS: ASPIRIN 81 MG PO SCH (19:56)
[2017-09-28] MEDS: ATORVASTATIN 40 MG TAB PO SCH (19:56)
[2017-09-28] MEDS: MONTELUKAST 10 MG TAB PO SCH (19:57)
[2017-09-28] MEDS: LEVOTHYROXINE 50 MCG TAB PO SCH (19:57)
[2017-09-28 20:35] LABS: Glucose,Whole Blood 218 mg/dL (75-99)
[2017-09-28] MEDS: INSULIN DETEMIR 100 UNIT/ML 10 ML VIAL SQ SCH (21:24)
[2017-09-29 06:20] LABS: Glucose,Whole Blood 117 mg/dL (75-99)
[2017-09-29] MEDS: INSULIN ASPART 100 UNIT/ML 1 ML 10 ML VIAL SQ SCH ×4 (06:30→11:56)
[2017-09-29 06:46] LABS: Anion Gap 9 mmol/L; Blood Urea Nitrogen 27 mg/dL (9-20); Carbon Dioxide 30 mmol/L (22-30); Chloride 105 mmol/L (98-107); Glucose 108 mg/dL (74-99); Potassium 4.4 mmol/L (3.5-5.1); Sodium 144 mmol/L (137-145)
[2017-09-29] MEDS: HEPARIN SODIUM,PORCINE 5,000 UNIT/ML 1 ML VIAL SQ SCH (07:33)
[2017-09-29] MEDS: metFORMIN 500 MG TAB PO SCH (07:33)
[2017-09-29] MEDS: HYDROCORTISONE 20 MG TAB PO SCH (07:33)
[2017-09-29] MEDS: IBUPROFEN 600 MG TAB PO SCH (07:34)
[2017-09-29] MEDS: DULoxetine HCL 30 MG CAPSULE.DR PO SCH (07:34)
[2017-09-29] MEDS: GABAPENTIN 400 MG CAP PO SCH (07:34)
[2017-09-29] MEDS: LISINOPRIL 5 MG TAB PO SCH (07:35)
[2017-09-29] MEDS: HYDROcodone/APAP 10-325MG 1 EACH TAB PO PRN (07:35)
[2017-09-29] MEDS: FAMOTIDINE 20 MG TAB PO SCH (07:35)
[2017-09-29] MEDS: IPRATROPIUM-ALBUTEROL 3 ML NEB INHALATION SCH ×2 (08:13→11:51)
[2017-09-29] MEDS: BUDESONIDE 0.5 MG/2 ML NEBU INHALATION SCH (08:13)
--- NOTE | 2017-09-29 08:59 | P.PN ---
Subjective Progress Note Date: 09/28/17 Principal diagnosis: Acute hypoxic respiratory failure, bilateral multifocal pneumonia, sepsis, altered mental status related to above obstructive sleep apnea acute exacerbation of CHF likely acute on chronic diastolic heart failure 11/26/2017 patient seen and evaluated examined during the rounds clinically doing well awake and alert cough congestion or shortness breath is improved patient is tolerating BiPAP machine fairly well is still feel wheezing cough congestion is security has significantly improved mental status is also significantly improved, ID service is adjusting antibiotics 09/27/2017, and seen evaluated examined during the rounds on the selective care respirator status slightly better interstitial edema and swelling swelling on the lower extremity has improved as well ingestion is improved but still get short of breath currently patient is on BiPAP he is using at nighttime and when necessary during the day his setting includes a IPAP of 12 EPAP of 5, saturation have been more stabilized is tolerating antibiotics fairly well diuresing well as well 09/26/2017, patient seen and evaluated examined during the rounds patient has significant desaturation over the night chest up down into 70s 80s even with supplemental oxygen worsening Petrin however noted more during sleep, patient has been initiated on BiPAP with improvement in saturation into the low 90s and patient able to sleep better patient continued to have cough congestion and breathing difficulties security however slightly better compared to yesterday, currently patient is on breathing treatments steroids and antibiotics and being treated for community-acquired pneumonia as well as acute hypoxic restrictive failure advised patient to bring his CPAP machine from home C can use it at nighttime once more stable Mr. Hester is well-known to me is a 57-year-old male with history of chronic persistent asthma severe COPD as well as obstructive sleep apnea patient has been on home CPAP but does not use oxygen he is on breathing treatments as well this patient has not been doing very well for the last 7-10 days with increased cough shortness of breath and sputum production symptoms started with upper respiratory type of process to progressive worsening of shortness or decided to come into the hospital patient has been noted to have oxygen saturation of only 83% on room air however with the supplemental oxygen 2 L improved to 92-93%, patient is being admitted into the hospital for pneumonia, on specific questioning he denies hemoptysis but does complaining of chills feed spiking fever off and on his been more short of breath than baseline his appetite has been poor he however has been taking all of his medications Objective - Vital Signs Vital signs: Vital Signs Temp 97.1 F L 09/29/17 04:00 Pulse 72 09/29/17 08:13 Resp 16 09/29/17 08:00 BP 150/88 09/29/17 04:00 Pulse Ox 94 L 09/29/17 04:00 Intake & Output 09/28/17 09/29/17 09/29/17 18:59 06:59 18:59 Intake Total 760 250 360 Balance 760 250 360 Weight 96.9 kg Intake: IV 280 250 0.9 30 Vancomycin 1,500 mg In 250 250 Sodium Chloride 0.9% 250 ml @ 125 mls/hr IVPB Q12H [facility] Rx#:[id number] Oral 480 360 Other: Voiding Method Toilet Toilet Toilet Urinal # Voids 1 - Exam General appearance: mild distress, obese - EENT Eyes: EOMI, PERRLA Ears: bilateral: normal - Neck Neck: normal ROM Carotids: bilateral: upstroke normal, bruit absent Thyroid: bilateral: normal size - Respiratory Respiratory: bilateral: rhonchi, wheezing, prolonged expiration, prolonged inspiration, diminished, dullness, rales improved compared to yesterday's exam - Cardiovascular Rhythm: regular Heart sounds: normal: S1, S2, no gallop rub or murmur - Gastrointestinal General gastrointestinal: distended, soft - Neurologic Neurologic: CNII-XII intact - Musculoskeletal Musculoskeletal: gait normal, generalized weakness, strength equal bilaterally, trace bilateral trace to +1 edema - Psychiatric Psychiatric: A&O x's 3, appropriate affect, intact judgment & insight - Labs CBC & Chem 7: 09/28/17 05:53 09/29/17 05:58 Labs: Abnormal Lab Results - Last 24 Hours (Table) 09/28/17 09/28/17 09/28/17 Range/Units 11:13 16:16 20:33 BUN (9-20) mg/dL Glucose (74-99) mg/dL POC Glucose (mg/dL) 222 H 209 H 218 H (75-99) mg/dL 09/29/17 09/29/17 Range/Units 05:58 06:07 BUN 27 H (9-20) mg/dL Glucose 108 H (74-99) mg/dL POC Glucose (mg/dL) 117 H (75-99) mg/dL Microbiology - Last 24 Hours (Table) 09/26/17 01:16 Gram Stain - Final Sputum Sputum Culture - Final Methicillin resist S. aureus 09/25/17 11:10 Blood Culture - Preliminary Blood No Growth after 72 hours - Imaging and Cardiology Chest x-ray: report reviewed, image reviewed (bilateral multifocal interstitial infiltrates are not seen very well on the x-ray performed on 09/27/2017) Assessment and Plan Assessment: Bilateral pneumonia, likely mixed bacterial community-acquired Acute hypoxic respiratory failure Left lower lobe density/nodule likely related to pneumonia but occult neoplasm cannot be excluded Chronic persistent asthma and severe COPD Influenza A pneumonia cannot be excluded Obstructive sleep apnea Hypertension hypertensive cardiovascular disease Chronic adrenal insufficiency on maintenance dose with the Cortef Hyperglycemia and diabetes mellitus Hypothyroidism Coronary artery disease with history of multiple stent placement History of complicated pneumonia in the past requiring thoracotomy and chest tube placement History of leg wound infection related to MRSA Plan: U would follow-up chest x-ray PA and lateral view Care plan reviewed and will maintain patient on breathing treatments with DuoNeb and Pulmicort, and Zithromax maintain patient on oxygen and maintain patient on DVT and peptic ulcer disease prophylaxis , we'll maintain patient on BiPAP once well if he more stable CPAP to be initiated on culture results and report with further recommendations pending
--- NOTE | 2017-09-29 09:02 | P.PN ---
Subjective Progress Note Date: 09/29/17 Principal diagnosis: Acute hypoxic respiratory failure, bilateral multifocal pneumonia, sepsis, altered mental status related to above obstructive sleep apnea acute exacerbation of CHF likely acute on chronic diastolic heart failure 09/29/2017, patient seen eval reexamined he is sitting upright on the bed breathing comfortably his cuff congestion is present wheezing Present but severity has improved Agri with discharge planning on oral antibiotics and Medrol Dosepak will follow in outpatient setting 09/28/2017 patient seen and evaluated examined during the rounds clinically doing well awake and alert cough congestion or shortness breath is improved patient is tolerating BiPAP machine fairly well is still feel wheezing cough congestion is security has significantly improved mental status is also significantly improved, ID service is adjusting antibiotics 09/27/2017, and seen evaluated examined during the rounds on the selective care respirator status slightly better interstitial edema and swelling swelling on the lower extremity has improved as well ingestion is improved but still get short of breath currently patient is on BiPAP he is using at nighttime and when necessary during the day his setting includes a IPAP of 12 EPAP of 5, saturation have been more stabilized is tolerating antibiotics fairly well diuresing well as well 09/26/2017, patient seen and evaluated examined during the rounds patient has significant desaturation over the night chest up down into 70s 80s even with supplemental oxygen worsening Petrin however noted more during sleep, patient has been initiated on BiPAP with improvement in saturation into the low 90s and patient able to sleep better patient continued to have cough congestion and breathing difficulties security however slightly better compared to yesterday, currently patient is on breathing treatments steroids and antibiotics and being treated for community-acquired pneumonia as well as acute hypoxic restrictive failure advised patient to bring his CPAP machine from home C can use it at nighttime once more stable Mr. Hester is well-known to me is a 57-year-old male with history of chronic persistent asthma severe COPD as well as obstructive sleep apnea patient has been on home CPAP but does not use oxygen he is on breathing treatments as well this patient has not been doing very well for the last 7-10 days with increased cough shortness of breath and sputum production symptoms started with upper respiratory type of process to progressive worsening of shortness or decided to come into the hospital patient has been noted to have oxygen saturation of only 83% on room air however with the supplemental oxygen 2 L improved to 92-93%, patient is being admitted into the hospital for pneumonia, on specific questioning he denies hemoptysis but does complaining of chills feed spiking fever off and on his been more short of breath than baseline his appetite has been poor he however has been taking all of his medications Objective - Vital Signs Vital signs: Vital Signs Temp 97.1 F L 09/29/17 04:00 Pulse 72 09/29/17 08:13 Resp 16 09/29/17 08:00 BP 150/88 09/29/17 04:00 Pulse Ox 94 L 09/29/17 04:00 Intake & Output 09/28/17 09/29/17 09/29/17 18:59 06:59 18:59 Intake Total 760 250 360 Balance 760 250 360 Weight 96.9 kg Intake: IV 280 250 0.9 30 Vancomycin 1,500 mg In 250 250 Sodium Chloride 0.9% 250 ml @ 125 mls/hr IVPB Q12H [facility] Rx#:[id number] Oral 480 360 Other: Voiding Method Toilet Toilet Toilet Urinal # Voids 1 - Exam General appearance: mild distress, obese - EENT Eyes: EOMI, PERRLA Ears: bilateral: normal - Neck Neck: normal ROM Carotids: bilateral: upstroke normal, bruit absent Thyroid: bilateral: normal size - Respiratory Respiratory: bilateral: rhonchi, wheezing, prolonged expiration, prolonged inspiration, diminished, dullness, rales improved compared to yesterday's exam - Cardiovascular Rhythm: regular Heart sounds: normal: S1, S2, no gallop rub or murmur - Gastrointestinal General gastrointestinal: distended, soft - Neurologic Neurologic: CNII-XII intact - Musculoskeletal Musculoskeletal: gait normal, generalized weakness, strength equal bilaterally, trace bilateral trace to +1 edema - Psychiatric Psychiatric: A&O x's 3, appropriate affect, intact judgment & insight - Labs CBC & Chem 7: 09/28/17 05:53 09/29/17 05:58 Labs: Abnormal Lab Results - Last 24 Hours (Table) 09/28/17 09/28/17 09/28/17 Range/Units 11:13 16:16 20:33 BUN (9-20) mg/dL Glucose (74-99) mg/dL POC Glucose (mg/dL) 222 H 209 H 218 H (75-99) mg/dL 09/29/17 09/29/17 Range/Units 05:58 06:07 BUN 27 H (9-20) mg/dL Glucose 108 H (74-99) mg/dL POC Glucose (mg/dL) 117 H (75-99) mg/dL Microbiology - Last 24 Hours (Table) 09/26/17 01:16 Gram Stain - Final Sputum Sputum Culture - Final Methicillin resist S. aureus 09/25/17 11:10 Blood Culture - Preliminary Blood No Growth after 72 hours Assessment and Plan Assessment: Bilateral pneumonia, likely mixed bacterial community-acquired Acute hypoxic respiratory failure Left lower lobe density/nodule likely related to pneumonia but occult neoplasm cannot be excluded Chronic persistent asthma and severe COPD Influenza A pneumonia cannot be excluded Obstructive sleep apnea Hypertension hypertensive cardiovascular disease Chronic adrenal insufficiency on maintenance dose with the Cortef Hyperglycemia and diabetes mellitus Hypothyroidism Coronary artery disease with history of multiple stent placement History of complicated pneumonia in the past requiring thoracotomy and chest tube placement History of leg wound infection related to MRSA Plan: Can be discharged home from pulmonary standpoint on oral antibiotics and Medrol Dosepak the patient will need a short-term computed tomography scan of the chest in outpatient setting follow-up chest x-ray PA and lateral view Care plan reviewed and will maintain patient on breathing treatments with DuoNeb and Pulmicort, and Zithromax maintain patient on oxygen and maintain patient on DVT and peptic ulcer disease prophylaxis , we'll maintain patient on BiPAP once well if he more stable CPAP to be initiated on culture results and report with further recommendations pending Time with Patient: Greater than 30
[2017-09-29 10:06] VITALS: RESP 18
[2017-09-29] MEDS ORDERED: VANCOMYCIN TROUGH DUE 1 EACH MISC MISCELLANE ONE (11:00)
[2017-09-29] MEDS: cefTRIAXone IN SWFI 1,000 MG/10 ML SYRINGE IVP SCH (11:05)
[2017-09-29] MEDS: VANCOMYCIN 1,500 MG in SODIUM CHLORIDE 0.9% 250 ML IVPB SCH (11:05)
[2017-09-29 11:25] LABS: Glucose,Whole Blood 143 mg/dL (75-99)
--- NOTE | 2017-09-29 12:16 | PN ---
PROGRESS NOTE constitution feels better today, less pain, less shortness of breath, less cough, much improved. The patient has stated to me that he was was under his understanding from yesterday that he did not have MRSA. I did state to him and showed him that he does have MRSA and his vancomycin is to be continued until released by Dr. Hardin and pulmonology at this point is signed off the case. The patient has an extensive medical history of congestive heart failure, coronary artery disease, diabetes, hypertension, osteoarthritis, , suspected to be benign, intractable lumbar impingement with chronic stenosis to have surgery on when patient is stable, polyneuropathy, GE reflux, hyperlipidemia, previous MRSA infections, and shingles. The patient has been very sick with these before. He has also infection in the elbow and heel. He also has longstanding history of right lower lobe pneumonia. He had a parapneumonic effusion with thoracotomy and chest tube placement 2014, he had a cholecystectomy, coronary artery bypass, cardiac catheterization with multiple stents, hernia repair, and joint replacement. At this time when he was admitted, he was found in the emergency room to have a negative chest x-ray, but due to his shortness of breath, a CT scan of the lungs was completed anyway for pulmonary emboli. He was found to have of pneumonia in the right upper lung. After several days repeat chest x-ray also showed those infiltrates there. He was treated very aggressively with Rocephin and Azithromycin and vancomycin because he has multiple Staph infections. Several days ago, he had a positive Staph aureus come back and we are waiting for the final result and finally came back this morning to me that it was MRSA. He remains on the Azithromycin and vancomycin at this period of time. REVIEW OF SYSTEMS: Eyes: He is having no problems with his eyes. ENT: Has a dry mouth. Neck is no neck pain. No problems swallowing. Chest: He is coughing up a minimal amount of fluid. He said is clear today. CARDIAC: Not having any palpitations. He is denying chest pain, no shortness breath, decreased. GI no nausea, no vomiting. Just constipation. Appetite is picking up. No hematochezia. No melena. was no urination. Integumentary is negative with no evidence of cellulitis. Neurologically he is not having syncope or vertigo. Psychiatric: He is alert, well oriented to person, place, and thing. PHYSICAL EXAMINATION: At this point, temperature is 97, heart rate is at 94-96, blood pressure is 102/74, and his respiratory rate is 16. Eyes: Pupils are equal, round, and reactive to accommodation. ENT shows throat to be normal. No unusual yeast seen on the tongue. Chest: He has still some minimal rhonchi, but there is no wheezing, no rhonchi. No rales today. Heart sinus rhythm with no murmur. Area of incision is . ABDOMEN: Soft, nontender with no organomegaly. No masses. Musculoskeletal: Arthritis in his hands and wrists are decreased. He has severely dry skin. Decreased range of motion shoulders, have changes. Vascularly, he has decreased pulses. Psychiatric: There is no depression. He has a fair amount of anxiety. Allergy: He has always had stuffy nose. Sputum culture does show MRSA. It is sensitive to . ASSESSMENT: 1. Right upper lobe pneumonia with MRSA. 2. Sepsis with leukocytosis and fever. 3. Acute hypoxic respiratory failure. 4. Anemia. 5. 1.7 cm lower lobe nodule and 9 mm in the right. Likely the mass is likely to be pneumonia, but cannot rule out neoplasm. 6. Resolving double vision. 7. Chronic obstructive pulmonary disease. 8. Persistent anemia. 9. Diabetes myelitis, being under the care of Dr. Beauchamp window glass installer. 10.Multiple vessel disease with stent placement. 11.Previous history of cellulitis which has been MRSA. 12.Sleep apnea. 13.Coronary artery insufficiency on Cortef. 14.Hypertension. 15.Osteoarthritis. 16.Hypothyroid. 17.Hypomagnesemia. We are following the patient with Dr. Hardin. Pulmonology signed off the case. I will keep on the antibiotic until . MMODL / IJN: [id number] /
[2017-09-29 14:47] VITALS: BP 141/80; PULSE 82; TEMP 97.3
[2017-09-30] MEDS ORDERED: VANCOMYCIN 1,250 MG in SODIUM CHLORIDE 0.9% 250 ML IVPB SCH ×2
--- NOTE | 2017-12-20 12:24 | P.DS ---
Providers Date of admission: 09/25/17 13:20 Expected date of discharge: 09/29/17 Attending physician: Bautista Romero Consults: 09/25/17 15:47 Consult Physician Routine Consulting Provider: Ag Morton Consult Reason/Comments: pneumonia Do you want consulting provider notified?: Yes 09/25/17 15:48 Consult Physician Routine Consulting Provider: Bran Hardin Consult Reason/Comments: pneumonia, per dr romero Do you want consulting provider notified?: Yes 09/27/17 11:31 Consult Physician Routine Consulting Provider: Mouna Fine Consult Reason/Comments: double vision Do you want consulting provider notified?: Yes Primary care physician: Bautista Romero Hospital Course: 57-year-old male who presents to emergency room on 09/25/2017 with a chief complaint of generalized weakness, worsening cough, and shortness of breath 3 days. 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 He has also had a myocardial infarction 2006 and 2007. His past surgical history includes bowel resection, cholecystectomy, coronary artery bypass graft, heart catheterization with multiple stents, hernia repair, and joint replacements. In the emergency room, a chest x-ray was completed which was negative for an acute process. He underwent a CT of the chest to rule out a pulmonary embolus which was negative for PE but did reveal bilateral infiltrates suspicious for multifocal pneumonia. Additionally a 9 mm nodule in the right upper lobe and 1.2 cm nodule in the left lower lobe was found. A follow-up computed tomography scan is recommended after treatment to rule out neoplasm. Laboratory studies revealed sodium 141. Potassium 4.5. BUN 16. Creatinine 0.66. WBC 12.4. Hemoglobin 11.6. Troponin 0.033. Lactic acid 1.4. Hemoglobin A1c 8.5%. Testing for influenza A and B was negative. He was admitted to the hospital under the care of Dr. Romero. Consultations were placed to infectious disease and pulmonology. The patient required BiPAP early in his hospitalization. He was since transitioned to nasal cannula and was able to maintain oxygen saturations greater than 92% The patient was evaluated by Dr. Hardin, infectious disease, during hospitalization. The patient was originally placed on Rocephin and azithromycin. Vancomycin was also added to the patient's regimen and azithromycin was discontinued. Sputum culture is positive for MRSA. Mycoplasma pneumoniae IgG 1.70 and IgM 0.05. Urine culture has been negative. The patient's overall condition improved significantly during hospitalization. He was deemed stable for discharge per Dr. Romero. Antibiotics were sent to the patient's pharmacy per Dr. Hardin. The patient is to be discharged home on Bactrim. The patient is to follow up with Dr. Romero and consulting providers. The patient was stable at the time of discharge. DISCHARGE DIAGNOSIS: Right upper lobe pneumonia with MRSA Sepsis with leukocytosis and fever, secondary to above, improving Acute hypoxic respiratory failure secondary to above, improving 1.2 cm left lower lobe nodule and 9mm right upper lobe nodule, likely related to pneumonia but neoplasm cannot be excluded at this time New onset double vision, etiology unclear at this time, resolved Chronic obstructive pulmonary disease and chronic persistent asthma Diabetes mellitus, type II, hemoglobin A1c 8.5% Coronary artery disease with previous coronary artery bypass grafting and previous stent placement Previous pneumonias requiring thoracotomy and chest tube placement Previous cellulitis with MRSA Obstructive sleep apnea Chronic adrenal insufficiency, maintained on Cortef Hyperlipidemia Osteoarthritis Hypothyroidism Hypomagnesemia Obesity: BMI 37.3 Nurse practitioner note has been reviewed by physician. Signing provider agrees with the documented findings, assessment, and plan of care. Patient Condition at Discharge: Stable Plan - Discharge Summary Discharge Rx Participant: Yes New Discharge Prescriptions: New Sulfamethox-Tmp 800-160Mg [Bactrim DS 800-160 mg] 1 tab PO Q12HR #20 tab No Action Levothyroxine Sodium [Synthroid] 50 mcg PO HS Omeprazole [PriLOSEC] 20 mg PO BID Nitroglycerin Sl Tabs [Nitrostat] 0.4 mg SUBLINGUAL Q5M PRN PRN Reason: Chest Pain Furosemide [Lasix] 20 mg PO DAILY PRN PRN Reason: Edema amLODIPine [Norvasc] 5 mg PO HS Gabapentin [Neurontin] 800 mg PO QID fentaNYL 25MCG/HR PATCH [Duragesic 25MCG/HR] 1 patch TRANSDERM Q72H HYDROcodone/APAP 10-325MG [[place] 10-325] 1 tab PO Q4HR PRN PRN Reason: Pain Simvastatin [Zocor] 80 mg PO HS Montelukast [Singulair] 10 mg PO HS #30 tab Hydrocortisone [Cortef] 20 mg PO DAILY #30 tab Insulin Aspart [NovoLOG Flexpen] See Protocol SQ ACHS Multivit-Min/FA/Lycopen/Lutein [Centrum Silver Tablet] 1 tab PO HS Lisinopril [Zestril] 5 mg PO DAILY #30 tab Aspirin 81 mg PO HS metFORMIN HCL 1,000 mg PO BID DULoxetine HCL [Cymbalta] 30 mg PO BID Insulin Glargine [Lantus] 25 unit SQ HS Etodolac [Lodine] 400 mg PO BID Discharge Medication List Levothyroxine Sodium [Synthroid] 50 mcg PO HS 02/01/14 [History] Nitroglycerin Sl Tabs [Nitrostat] 0.4 mg SUBLINGUAL Q5M PRN 02/01/14 [History] Omeprazole [PriLOSEC] 20 mg PO BID 02/01/14 [History] Furosemide [Lasix] 20 mg PO DAILY PRN 05/13/15 [History] Gabapentin [Neurontin] 800 mg PO QID 05/13/15 [History] amLODIPine [Norvasc] 5 mg PO HS 05/13/15 [History] HYDROcodone/APAP 10-325MG [[place] 10-325] 1 tab PO Q4HR PRN 07/17/16 [History] Simvastatin [Zocor] 80 mg PO HS 07/17/16 [History] fentaNYL 25MCG/HR PATCH [Durages[place] 25MCG/HR] 1 patch TRANSDERM Q72H 07/17/16 [ History] Montelukast [Singulair] 10 mg PO HS #30 tab 11/21/16 [Rx] Hydrocortisone [Cortef] 20 mg PO DAILY #30 tab 12/03/16 [Rx] Insulin Aspart [NovoLOG Flexpen] See Protocol SQ ACHS 02/10/17 [History] Multivit-Min/FA/Lycopen/Lutein [Centrum Silver Tablet] 1 tab PO HS 02/10/17 [ History] Lisinopril [Zestril] 5 mg PO DAILY #30 tab 06/01/17 [Rx] Aspirin 81 mg PO HS 04/08/17 [History] DULoxetine HCL [Cymbalta] 30 mg PO BID 09/25/17 [History] Etodolac [Lodine] 400 mg PO BID 09/25/17 [History] Insulin Glargine [Lantus] 25 unit SQ HS 09/25/17 [History] metFORMIN HCL 1,000 mg PO BID 09/25/17 [History] Sulfamethox-Tmp 800-160Mg [Bactrim DS 800-160 mg] 1 tab PO Q12HR #20 tab [Rx] Follow up Appointment(s)/Referral(s): Bautista Romero MD [Primary Care Provider] - 1-2 days (Offices are closed at this time. Please call to make a follow up appointment.) Patient Instructions/Handouts: Community Acquired Pneumonia (DC) Discharge Disposition: HOME SELF-CARE
== END 2017-09-29 15:34 | disposition home or self-care (01) | DRG 871 ==
LOC: EC 10:46 → 6SEL 13:20
PROVIDERS: ADMIT Family Medicine; ATTEND Family Medicine
PROC: 5A09357 Assistance with Respiratory Ventilation, Less than 24 Consecutive Hours, Continuous Positive Airway Pressure (ICD-10-PCS; principal; 2017-09-26)
DX: A41.02 Sepsis due to Methicillin resistant Staphylococcus aureus (principal); I50.33 Acute on chronic diastolic (congestive) heart failure; J96.01 Acute respiratory failure with hypoxia; J15.212 Pneumonia due to Methicillin resistant Staphylococcus aureus; N17.9 Acute kidney failure, unspecified; E11.42 Type 2 diabetes mellitus with diabetic polyneuropathy; I11.0 Hypertensive heart disease with heart failure; E27.40 Unspecified adrenocortical insufficiency; J44.0 Chronic obstructive pulmonary disease with (acute) lower respiratory infection; E11.65 Type 2 diabetes mellitus with hyperglycemia; D64.9 Anemia, unspecified; E03.9 Hypothyroidism, unspecified; E66.9 Obesity, unspecified; E78.5 Hyperlipidemia, unspecified; E83.42 Hypomagnesemia; G47.33 Obstructive sleep apnea (adult) (pediatric); H53.2 Diplopia; I25.10 Atherosclerotic heart disease of native coronary artery without angina pectoris; I25.2 Old myocardial infarction; K21.9 Gastro-esophageal reflux disease without esophagitis; L40.9 Psoriasis, unspecified; M10.9 Gout, unspecified; M15.9 Polyosteoarthritis, unspecified; M54.16 Radiculopathy, lumbar region; M48.061 Spinal stenosis, lumbar region without neurogenic claudication; R91.1 Solitary pulmonary nodule; K86.9 Disease of pancreas, unspecified; J45.30 Mild persistent asthma, uncomplicated; Z68.37 Body mass index [BMI] 37.0-37.9, adult; Z79.4 Long term (current) use of insulin; Z79.82 Long term (current) use of aspirin; Z79.899 Other long term (current) drug therapy; Z96.641 Presence of right artificial hip joint; Z95.1 Presence of aortocoronary bypass graft; Z90.49 Acquired absence of other specified parts of digestive tract; Z87.891 Personal history of nicotine dependence; Z87.01 Personal history of pneumonia (recurrent); Z86.14 Personal history of Methicillin resistant Staphylococcus aureus infection; Z85.828 Personal history of other malignant neoplasm of skin; Z95.5 Presence of coronary angioplasty implant and graft; Z82.49 Family history of ischemic heart disease and other diseases of the circulatory system
CPT/HCPCS: 36415; 71046; 71275; 80048; 80053; 80202; 81001; 83036; 83605; 83735; 84484; 85025; 85610; 85730; 86738; 87040; 87070; 87077; 87086; 87186; 87205; 87449; 87502; 93005; 94640; 94660; 94760; 96361; 96374; 99285

== ENCOUNTER 2018-02-05 02:54 | Inpatient (IN) | payer MEDICARE ==
[2018-02-05] MEDS ORDERED: SODIUM CHLORIDE 0.9% 1,000 ML IV STA ×3 (03:10→05:01)
[2018-02-05] MEDS ORDERED: ACETAMINOPHEN IV (For NPO) 1,000 MG in EMPTY BAG 1 BAG IVPB STA (03:10)
[2018-02-05] MEDS ORDERED: PANTOPRAZOLE 40 MG/10 ML VIAL IVP STA (03:10)
[2018-02-05] MEDS ORDERED: ONDANSETRON 4 MG/2 ML VIAL IVP STA (03:10)
[2018-02-05 03:49] LABS: Anisocytosis Slight; Basophils % (A) 0 %; Eosinophils # (A) 0.3 k/uL (0-0.7); Eosinophils % (A) 3 %; HGB 9.6 gm/dL (13.0-17.5); Hypochromasia Marked; Lymphocytes # (A) 0.5 k/uL (1.0-4.8); Lymphocytes % (A) 5 %; MCH 21.5 pg (25.0-35.0); MCHC 28.3 g/dL (31.0-37.0); MCV 75.8 fL (80.0-100.0); Mean Platelet Volume 7.1; Microcytosis Moderate; Monocytes # (A) 0.5 k/uL (0-1.0); Monocytes % (A) 5 %; Neutrophils # (A) 7.9 k/uL (1.3-7.7); Neutrophils % (A) 85 %; Platelet Count 253 k/uL (150-450); RBC 4.49 m/uL (4.30-5.90); RDW 18.7 % (11.5-15.5); WBC 9.3 k/uL (3.8-10.6)
[2018-02-05] MEDS ORDERED: IPRATROPIUM-ALBUTEROL 3 ML NEB INHALATION STA (03:49)
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
[2018-02-05 03:54] LABS: Albumin 3.4 g/dL (3.5-5.0); Calcium 8.5 mg/dL (8.4-10.2); Potassium 4.8 mmol/L (3.5-5.1); Total Bilirubin 0.5 mg/dL (0.2-1.3); Total Protein 5.8 g/dL (6.3-8.2)
--- NOTE | 2018-02-05 04:16 | XR ---
EXAMINATION TYPE: XR abdomen acute w cxr DATE OF EXAM: 02/05/2018 COMPARISON: Chest x-ray 09/27/2017 HISTORY: Nausea and vomiting and diarrhea. Fever. TECHNIQUE: Single view chest. Supine and upright abdomen. FINDINGS: There is no heart failure nor confluent pneumonic infiltrate. Bowel gas pattern is normal. There is n o sign of intestinal obstruction or pneumoperitoneum. Fecal pattern is normal. There are clips from c holecystectomy. There are sternal wires. Diaphragm is normal. There is a right hip prosthesis. There is mild protrusio. IMPRESSION: Nonacute abdomen. No active cardiopulmonary disease. Chest is stable compared to old exam.
[2018-02-05] MEDS ORDERED: KETOROLAC 30 MG/ML 1 ML VIAL IVP STA (05:01)
[2018-02-05] MEDS ORDERED: NITROGLYCERIN SL TABS 0.4 MG TAB SUBLINGUAL PRN ×2 (05:46→11:33)
[2018-02-05] MEDS ORDERED: PIPERACILLIN-TAZOBACTAM 3.375 GM in DEXTROSE/WATER 1 50ML.BAG IVPB STA (05:48)
[2018-02-05] MEDS ORDERED: PNEUMONIA PROTOCOL UTILIZED 1 EACH MISC PO PRN (05:48)
[2018-02-05] MEDS ORDERED: LEVOFLOXACIN 750MG-D5W PMX 750 MG in DEXTROSE/WATER 1 150ML.BAG IVPB STA (05:48)
[2018-02-05] MEDS: IPRATROPIUM-ALBUTEROL 3 ML NEB INHALATION SCH ×4 (07:38→20:41)
[2018-02-05] MEDS: SODIUM CHLORIDE 0.9% 1,000 ML IV SCH ×4 (08:50→21:52)
[2018-02-05 08:59] LABS: Appearance,Urine Clear (Clear); Bilirubin,Urine 2+ (Negative); Blood,Urine Negative (Negative); Color,Urine Yellow; Glucose,Urine (UA) Negative (Negative); Ketones,Urine Negative (Negative); Leukocyte Esterase,Urine Negative (Negative); Nitrite,Urine Negative (Negative); Protein,Urine Trace (Negative); Specific Gravity,Urine 1.018 (1.001-1.035); Urobilinogen,Urine <2.0 mg/dL (<2.0)
[2018-02-05 11:03] LABS: Creatine Kinase MB 11.1 ng/mL (0.0-2.4); Troponin I 0.039 ng/mL (0.000-0.034)
[2018-02-05 11:55] LABS: Glucose,Whole Blood 201 mg/dL (75-99)
[2018-02-05] MEDS: HYDROcodone/APAP 10-325MG 1 EACH TAB PO PRN (12:17)
[2018-02-05] MEDS: HYDROCORTISONE 20 MG TAB PO SCH (12:17)
[2018-02-05] MEDS: INSULIN ASPART 100 UNIT/ML 1 ML 10 ML VIAL SQ SCH ×3 (12:17→21:24)
[2018-02-05] MEDS: GABAPENTIN 400 MG CAP PO SCH ×3 (13:35→23:44)
--- NOTE | 2018-02-05 14:55 | XR ---
EXAMINATION TYPE: XR chest 2V DATE OF EXAM: 02/05/2018 COMPARISON: 09/27/2017 HISTORY: Shortness of breath TECHNIQUE: Frontal and lateral views of the chest are obtained. FINDINGS: Scattered senescent parenchymal changes noted. Hyperinflation compatible with COPD. Small amount of fluid is seen within the right minor fissure. No focal consolidation not present at t his time. Heart size is stable. Mediastinal structures are stable and grossly unremarkable. No evidence for hilar prominence. Degenerative changes dorsal spine. IMPRESSION: 1. Small amount of fluid is seen within the right minor fissure. No focal consolidation not present a t this time.
[2018-02-05] MEDS: PIPERACILLIN-TAZOBACTAM 3.375 GM in DEXTROSE/WATER 1 50ML.BAG IVPB SCH (15:27)
[2018-02-05] MEDS: HEPARIN SODIUM,PORCINE 5,000 UNIT/ML 1 ML VIAL SQ SCH ×2 (15:28→23:44)
[2018-02-05] MEDS: ACETAMINOPHEN TAB 325 MG TAB PO PRN (15:28)
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
[2018-02-05 16:40] LABS: Troponin I 0.02 ng/mL (0.000-0.034)
[2018-02-05 16:48] LABS: Creatine Kinase MB 11.9 ng/mL (0.0-2.4)
[2018-02-05 17:28] LABS: Glucose,Whole Blood 194 mg/dL (75-99)
[2018-02-05] MEDS ORDERED: metFORMIN 500 MG TAB PO SCH (17:30)
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
[2018-02-05] MEDS ORDERED: ATORVASTATIN 80 MG TAB PO SCH (21:00)
[2018-02-05 21:15] LABS: Glucose,Whole Blood 134 mg/dL (75-99)
[2018-02-05] MEDS: INSULIN DETEMIR 100 UNIT/ML 10 ML VIAL SQ SCH (21:24)
[2018-02-05] MEDS: DAPTOmycin 500 MG in SODIUM CHLORIDE 0.9% 50 ML IV SCH (21:51)
[2018-02-05] MEDS ORDERED: SODIUM CHLORIDE 0.9% 500 ML IV ONE (22:45)
[2018-02-05] MEDS: MONTELUKAST 10 MG TAB PO SCH (23:43)
[2018-02-05] MEDS: LEVOTHYROXINE 50 MCG TAB PO SCH (23:43)
[2018-02-05] MEDS: DULoxetine HCL 30 MG CAPSULE.DR PO SCH (23:43)
[2018-02-05] MEDS: amLODIPine 5 MG TAB PO SCH (23:44)
[2018-02-05] MEDS: ASPIRIN 81 MG PO SCH (23:44)
[2018-02-06] MEDS: PIPERACILLIN-TAZOBACTAM 3.375 GM in DEXTROSE/WATER 1 50ML.BAG IVPB SCH ×4 (00:03→23:26)
[2018-02-06 04:06] LABS: Hemoglobin A1C 8.8 % (4.0-6.0)
[2018-02-06] MEDS: SODIUM CHLORIDE 0.9% 1,000 ML IV SCH ×2 (04:15→06:44)
[2018-02-06] MEDS ORDERED: LEVOFLOXACIN 750MG-D5W PMX 750 MG in DEXTROSE/WATER 1 150ML.BAG IVPB SCH (06:00)
[2018-02-06 06:01] LABS: Glucose,Whole Blood 140 mg/dL (75-99)
[2018-02-06 06:14] LABS: Anisocytosis Slight; HGB 9.5 gm/dL (13.0-17.5); Hypochromasia Marked; MCH 22.1 pg (25.0-35.0); MCHC 27.9 g/dL (31.0-37.0); MCV 79.1 fL (80.0-100.0); Mean Platelet Volume 6.5; Microcytosis Slight; Platelet Count 221 k/uL (150-450); RBC 4.29 m/uL (4.30-5.90); RDW 18.4 % (11.5-15.5)
[2018-02-06 06:25] LABS: ALT 69 U/L (21-72); AST 121 U/L (17-59); Albumin 3.2 g/dL (3.5-5.0); Alkaline Phosphatase 60 U/L (38-126); Anion Gap 12 mmol/L; Blood Urea Nitrogen 29 mg/dL (9-20); Calcium 7.7 mg/dL (8.4-10.2); Carbon Dioxide 28 mmol/L (22-30); Chloride 106 mmol/L (98-107); Cholesterol 109 mg/dL (<200); Glucose 132 mg/dL (74-99); HDL Cholesterol 38 mg/dL (40-60); LDL Cholesterol,Calculated 40 mg/dL (0-99); Potassium 4.7 mmol/L (3.5-5.1); Sodium 146 mmol/L (137-145); Total Bilirubin 0.4 mg/dL (0.2-1.3); Total Protein 5.6 g/dL (6.3-8.2); Triglycerides 157 mg/dL (<150)
[2018-02-06] MEDS: INSULIN ASPART 100 UNIT/ML 1 ML 10 ML VIAL SQ SCH ×4 (06:44→21:18)
[2018-02-06] MEDS: PANTOPRAZOLE 40 MG TABLET PO SCH (06:45)
[2018-02-06 07:08] LABS: Monocytes # (M) 0.72 k/uL (0-1.0); Neutrophils # (M) 4.08 k/uL (1.3-7.7); Neutrophils % (M) 68 %; Nucleated Red Blood Cells 0 /100 WBC (0-0); Total Cells Counted 100
[2018-02-06 07:09] LABS: Large Platelets Present
--- NOTE | 2018-02-06 08:59 | XR ---
EXAMINATION TYPE: XR chest 1V portable DATE OF EXAM: 02/06/2018 COMPARISON: 02/05/2018 HISTORY: History of pneumonia. Fever and weakness. TECHNIQUE: Single frontal view of the chest is obtained. FINDINGS: There is no focal air space opacity, pleural effusion, or pneumothorax seen. The previous ly seen small right minor fissural fluid has resolved in the interim. Post CABG changes are seen of t he chest with enlargement of the cardiac silhouette. The osseous structures are intact. Partial vis ualization of cervical fusion device is also seen. Acromioclavicular arthropathy is moderate on the r ight and mild on the left. IMPRESSION: No acute cardiopulmonary process. Resolution of the previously seen right minor fissural fluid.
[2018-02-06] MEDS: IPRATROPIUM-ALBUTEROL 3 ML NEB INHALATION SCH ×4 (09:48→20:21)
[2018-02-06] MEDS: SODIUM CHLORIDE 0.45% 1,000 ML IV SCH ×3 (10:00→23:27)
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
[2018-02-06] MEDS: HEPARIN SODIUM,PORCINE 5,000 UNIT/ML 1 ML VIAL SQ SCH ×3 (10:05→23:26)
[2018-02-06] MEDS: GABAPENTIN 400 MG CAP PO SCH ×4 (10:06→21:14)
[2018-02-06] MEDS: DULoxetine HCL 30 MG CAPSULE.DR PO SCH ×2 (10:06→21:15)
[2018-02-06] MEDS: HYDROCORTISONE 20 MG TAB PO SCH (10:07)
[2018-02-06] MEDS: LISINOPRIL 5 MG TAB PO SCH (10:07)
--- NOTE | 2018-02-06 10:28 | P.PN ---
Subjective Progress Note Date: 02/06/18 57-year-old male who presented to the emergency room with complaints of fever, lower left sided chest pain, and lethargy. Patient was evaluated in the emergency room with Dr. Romero. He is currently awaiting a bed assignment. The patient is lethargic. Patient's spouse is at the bedside and is relaying most of the history. She states that the patient has had a fever on and off for the last day or two. She reports that the patient has been "falling asleep all the time" over the past few days. She states last night he fell asleep watching TV which he never does and that concerned her. She reports the patient has been having difficulty ambulating. She states the patient went into the bathroom and a family member went to check on him because he was in the bathroom for almost an hour. It is unknown if the patient fell asleep in the bathroom or had a syncopal episode. The patient does report lower left sided chest pain that is worse with inspiration. He denies midsternal chest pain. The patient does report a cough over the last few days. Denies sputum production. 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 He has also had a myocardial infarction 2006 and 2007. His past surgical history includes bowel resection, cholecystectomy, coronary artery bypass graft, heart catheterization with multiple stents, hernia repair, and joint replacements. The patient was hospitalized in September 2017 for right upper lobe pneumonia with MRSA and sepsis. The patient was recently evaluated by Dr. Romero on an outpatient basis for erythema to his left lower extremity with a small round wound. It was cultured at the office and was positive for staph aureus. Acute abdominal series: Normal bowel gas pattern. No acute process visualized. Chest x-ray: Small amount of fluid is seen within the right minor fissure. No focal consolidation present. Laboratory data: WBC 9.3. Hemoglobin 9.6. Platelet count 253. Sodium 144. Potassium 4.8. BUN 38. Creatinine 1.50. GFR 50. Glucose 258. Troponin: 0.041, 0.039 Lactic acid: 3.5 BNP 578 Testing for influenza A/B was negative Urinalysis reveals: trace proteinuria, 2+ bilirubin. Negative for ketones, blood , nitrates or leukocyte esterase The patient was admitted to the hospital under the care of Dr. Romero. 02/06/2018 Patient seen and examined at the bedside on rounds with Dr. Romero. Patient remains lethargic, but improved since yesterday. Easily arousable to verbal stimulation. Patient will engage in conversation when asked. Patient is on 2L NC with oxygen saturations greater than 92%. Patient had decreased urine output yesterday evening. IV fluids were increased to 200cc/hr per Dr. Romero. Indwelling urinary catheter was placed for accurate I/O. Blood cultures are negative at the 24 hour solange. Urine culture is pending. Dr. Hardin is on consult. Patient is currently receiving Daptomycin and Zosyn. Patient is afebrile. Hypotensive has resolved and this morning his blood pressure is 155/ 81. His 9.5. Sodium 146. BUN 29. Creatinine 1.0 which has improved from 1.50 yesterday. Objective - Vital Signs Vital signs: Vital Signs Temp 97.9 F 02/06/18 04:15 Pulse 99 02/06/18 06:41 Resp 19 02/06/18 06:41 BP 155/81 02/06/18 06:41 Pulse Ox 99 02/06/18 06:41 Intake & Output 02/05/18 02/06/18 02/06/18 18:59 06:59 18:59 Intake Total 450 Output Total 250 1700 Balance 200 -1700 Weight 97.522 kg Intake: IV 400 Sodium Chloride 0.9% 1, 400 000 ml @ 200 mls/hr IV . Q5H [facility] Rx#:[id number] Intake, IV Titration 50 Amount Piperacillin-Tazobactam 3 50 .375 gm In Dextrose/Water 1 50ml.bag @ 12.5 mls/hr IVPB ONCE STA Rx#: [id number] Output: Urine 250 1700 Uretheral (Leach) 600 Other: Voiding Method Indwelling Catheter - Exam GENERAL: This is a 57-year-old male who is lethargic at the time of examination but is easily arousable to verbal stimuli. HEENT: Head is atraumatic, normocephalic. Pupils are equal, round, and reactive to light. Sclerae anicteric. Conjunctivae are clear. Mucus membranes of the mouth are dry and chapped. Neck is supple. RESPIRATORY: Coarse lung sounds auscultated. Mild expiratory wheezing noted to right side. No rales auscultated. No use of accessory muscles. Patient maintaining oxygen saturation greater than 92% on 2L NC. No chest wall tenderness is noted on palpation or with deep breathing. CARDIOVASCULAR: Regular rate and rhythm. S1 and S2 noted. No systolic or diastolic murmur auscultated. No JVD noted. No S3 or S4 noted. GASTROINTESTINAL: No distention noted. Abdomen soft and round. Normal active bowel sounds auscultated x 4 quadrants. No pain or tenderness noted upon palpation. INTEGUMENTARY: Patient with mild erythema noted to left lower extremity with old healing abrasion. No drainage noted. No cyanosis. No jaundice. No rashes noted. EXTREMITIES: 1+ peripheral pulses. +2 lower bilateral lower extremity edema. No calf tenderness noted. NEUROLOGIC: Cranial nerves II-XII intact. PSYCHIATRIC: Lethargic but easily arousable to verbal stimuli. - Labs CBC & Chem 7: 02/06/18 05:16 02/06/18 05:16 Labs: Abnormal Lab Results - Last 24 Hours (Table) 02/05/18 02/05/18 02/05/18 Range/Units 09:40 11:52 15:50 RBC (4.30-5.90) m/uL Hgb (13.0-17.5) gm/dL Hct (39.0-53.0) % MCV (80.0-100.0) fL MCH (25.0-35.0) pg MCHC (31.0-37.0) g/dL RDW (11.5-15.5) % Lymphocytes # (Manual) (1.0-4.8) k/uL Sodium (137-145) mmol/L BUN (9-20) mg/dL Glucose (74-99) mg/dL POC Glucose (mg/dL) 201 H (75-99) mg/dL Hemoglobin A1c (4.0-6.0) % Calcium (8.4-10.2) mg/dL AST (17-59) U/L Total Creatine Kinase 344 H 802 H (55-170) U/L CK-MB (CK-2) 11.1 H* 11.9 H* (0.0-2.4) ng/mL Troponin I 0.039 H* (0.000-0.034) ng/mL Total Protein (6.3-8.2) g/dL Albumin (3.5-5.0) g/dL Triglycerides (<150) mg/dL HDL Cholesterol (40-60) mg/dL 02/05/18 02/05/18 02/05/18 Range/Units 15:50 17:24 21:14 RBC (4.30-5.90) m/uL Hgb (13.0-17.5) gm/dL Hct (39.0-53.0) % MCV (80.0-100.0) fL MCH (25.0-35.0) pg MCHC (31.0-37.0) g/dL RDW (11.5-15.5) % Lymphocytes # (Manual) (1.0-4.8) k/uL Sodium (137-145) mmol/L BUN (9-20) mg/dL Glucose (74-99) mg/dL POC Glucose (mg/dL) 194 H 134 H (75-99) mg/dL Hemoglobin A1c 8.8 H (4.0-6.0) % Calcium (8.4-10.2) mg/dL AST (17-59) U/L Total Creatine Kinase (55-170) U/L CK-MB (CK-2) (0.0-2.4) ng/mL Troponin I (0.000-0.034) ng/mL Total Protein (6.3-8.2) g/dL Albumin (3.5-5.0) g/dL Triglycerides (<150) mg/dL HDL Cholesterol (40-60) mg/dL 02/06/18 02/06/18 02/06/18 Range/Units 05:16 05:16 05:58 RBC 4.29 L (4.30-5.90) m/uL Hgb 9.5 L (13.0-17.5) gm/dL Hct 34.0 L (39.0-53.0) % MCV 79.1 L (80.0-100.0) fL MCH 22.1 L (25.0-35.0) pg MCHC 27.9 L (31.0-37.0) g/dL RDW 18.4 H (11.5-15.5) % Lymphocytes # (Manual) 0.90 L (1.0-4.8) k/uL Sodium 146 H (137-145) mmol/L BUN 29 H (9-20) mg/dL Glucose 132 H (74-99) mg/dL POC Glucose (mg/dL) 140 H (75-99) mg/dL Hemoglobin A1c (4.0-6.0) % Calcium 7.7 L (8.4-10.2) mg/dL AST 121 H (17-59) U/L Total Creatine Kinase (55-170) U/L CK-MB (CK-2) (0.0-2.4) ng/mL Troponin I (0.000-0.034) ng/mL Total Protein 5.6 L (6.3-8.2) g/dL Albumin 3.2 L (3.5-5.0) g/dL Triglycerides 157 H (<150) mg/dL HDL Cholesterol 38 L (40-60) mg/dL Microbiology - Last 24 Hours (Table) 02/05/18 03:25 Blood Culture - Preliminary Blood No Growth after 24 hours 02/05/18 08:00 Urine Culture - Preliminary Urine,Catheterized Assessment and Plan Plan: ASSESSMENT: Sepsis with elevated lactic acid, lethargy, hypotension, and fever, present on admission, etiology unclear at this time Mildly elevated troponins, suspect secondary to infectious process Lower left-sided chest pain, likely pleuritic in nature and also due to recent fall Acute kidney injury, creatinine 1.50 on admission, baseline 0.8-1.0, resolving with IV hydration Diabetes mellitus, type II, hemoglobin A1c 8.8% Coronary artery disease with previous coronary artery bypass grafting and previous stent placement Hospitalization in September 2017 for right upper lobe pneumonia with MRSA and sepsis Previous pneumonias requiring thoracotomy and chest tube placement Previous cellulitis with MRSA Obstructive sleep apnea Chronic adrenal insufficiency, maintained on Cortef Hyperlipidemia Osteoarthritis Hypothyroidism Obesity: BMI 35.8 PLAN: Dr. Hardin, infectious disease, on consult. Appreciate recommendations and input Antibiotic regimen per Dr. Hardin. Currently on Zosyn and daptomycin Await final results of blood urine and sputum cultures Continue IV fluid at 200 mL an hour. Will change to 0.45 due to mild hypernatremia Repeat chest x-ray tomorrow morning Continue to monitor kidney function. Repeat labs in a.m. Continue indwelling urinary catheter Accurate I/O Cardiology on consult. Await further recommendations and input Patient may use BiPAP machine when sleeping as he has obstructive sleep apnea and desats into the 80s Continue Novolog sliding scale with Levemir 26 units BID Home meds as appropriate Monitor labs GI prophylaxis: Protonix 40 mg PO Daily DVT prophylaxis: Heparin 5000 units subcu every 8 hours Monitor vital signs and address as appropriate Discharge planning: Patient to return home when stable if able. When patient is more alert, will order PT/OT eval to determine if patient will require RHIANNA Further recommendations pending patient's course Nurse practitioner note has been reviewed by physician. Signing provider agrees with the documented findings, assessment, and plan of care.
[2018-02-06 11:38] LABS: Glucose,Whole Blood 159 mg/dL (75-99)
[2018-02-06] MEDS: INSULIN DETEMIR 100 UNIT/ML 10 ML VIAL SQ SCH ×2 (12:08→21:19)
[2018-02-06] MEDS: ACETAMINOPHEN IV (For NPO) 1,000 MG in EMPTY BAG 1 BAG IVPB PRN ×2 (15:45→22:00)
[2018-02-06 17:07] LABS: Glucose,Whole Blood 215 mg/dL (75-99)
[2018-02-06] MEDS ORDERED: KETOROLAC 30 MG/ML 1 ML VIAL IVP STA (18:35)
[2018-02-06] MEDS: DAPTOmycin 500 MG in SODIUM CHLORIDE 0.9% 50 ML IV SCH (19:59)
[2018-02-06] MEDS: LEVOTHYROXINE 50 MCG TAB PO SCH (21:14)
[2018-02-06] MEDS: ASPIRIN 81 MG PO SCH (21:15)
[2018-02-06] MEDS: MONTELUKAST 10 MG TAB PO SCH (21:15)
[2018-02-06] MEDS: amLODIPine 5 MG TAB PO SCH (21:15)
[2018-02-06 21:20] LABS: Glucose,Whole Blood 139 mg/dL (75-99)
[2018-02-06 23:09] LABS: Potassium 4.2 mmol/L (3.5-5.1)
[2018-02-06] MEDS: MAGNESIUM SULFATE-D5W PMX 1 GM in DEXTROSE/WATER 1 100ML.BAG IVPB SCH (23:36)
[2018-02-07] MEDS: MAGNESIUM SULFATE-D5W PMX 1 GM in DEXTROSE/WATER 1 100ML.BAG IVPB SCH ×4 (00:44→16:28)
[2018-02-07] MEDS: SODIUM CHLORIDE 0.45% 1,000 ML IV SCH ×4 (02:51→14:56)
[2018-02-07] MEDS: ACETAMINOPHEN IV (For NPO) 1,000 MG in EMPTY BAG 1 BAG IVPB PRN ×2 (03:22→14:50)
[2018-02-07 05:53] LABS: Anisocytosis Slight; HCT 31.5 % (39.0-53.0); Hypochromasia Marked; MCH 21.9 pg (25.0-35.0); MCHC 28.4 g/dL (31.0-37.0); MCV 77.1 fL (80.0-100.0); Mean Platelet Volume 7.7; Microcytosis Slight; Platelet Count 211 k/uL (150-450); RBC 4.09 m/uL (4.30-5.90); RDW 18.6 % (11.5-15.5); WBC 4.6 k/uL (3.8-10.6)
[2018-02-07 06:04] LABS: ALT 61 U/L (21-72); AST 78 U/L (17-59); Albumin 2.6 g/dL (3.5-5.0); Alkaline Phosphatase 60 U/L (38-126); Anion Gap 10 mmol/L; Blood Urea Nitrogen 22 mg/dL (9-20); Calcium 7.9 mg/dL (8.4-10.2); Carbon Dioxide 28 mmol/L (22-30); Chloride 102 mmol/L (98-107); Glucose 157 mg/dL (74-99); Magnesium 1.6 mg/dL (1.6-2.3); Potassium 4.4 mmol/L (3.5-5.1); Sodium 140 mmol/L (137-145); Total Protein 4.8 g/dL (6.3-8.2)
[2018-02-07 06:05] LABS: Glucose,Whole Blood 250 mg/dL (75-99)
[2018-02-07] MEDS: INSULIN ASPART 100 UNIT/ML 1 ML 10 ML VIAL SQ SCH ×4 (06:22→21:50)
[2018-02-07] MEDS: PANTOPRAZOLE 40 MG TABLET PO SCH (06:23)
[2018-02-07 06:56] LABS: Band Neutrophils % 29 %; Basophils # (M) 0.05 k/uL (0-0.2); Eosinophils # (M) 0.09 k/uL (0-0.7); Lymphocytes # (M) 0.51 k/uL (1.0-4.8); Monocytes # (M) 0.05 k/uL (0-1.0); Neutrophils % (M) 56 %; Nucleated Red Blood Cells 0 /100 WBC (0-0); Total Cells Counted 100
[2018-02-07 06:57] LABS: Ovalocytes Present
[2018-02-07] MEDS ORDERED: KETOROLAC 30 MG/ML 1 ML VIAL IVP SCH (08:00)
[2018-02-07] MEDS: PIPERACILLIN-TAZOBACTAM 3.375 GM in DEXTROSE/WATER 1 50ML.BAG IVPB SCH (08:15)
[2018-02-07] MEDS: HEPARIN SODIUM,PORCINE 5,000 UNIT/ML 1 ML VIAL SQ SCH ×3 (08:15→23:07)
[2018-02-07] MEDS: DULoxetine HCL 30 MG CAPSULE.DR PO SCH ×2 (08:16→21:50)
[2018-02-07] MEDS: GABAPENTIN 400 MG CAP PO SCH ×4 (08:16→22:50)
[2018-02-07] MEDS: HYDROCORTISONE 20 MG TAB PO SCH (08:17)
[2018-02-07] MEDS: LISINOPRIL 5 MG TAB PO SCH (08:17)
[2018-02-07] MEDS: INSULIN DETEMIR 100 UNIT/ML 10 ML VIAL SQ SCH ×2 (08:25→21:50)
[2018-02-07] MEDS: KETOROLAC 30 MG/ML 1 ML VIAL IVP PRN (08:33)
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
[2018-02-07] MEDS: IPRATROPIUM-ALBUTEROL 3 ML NEB INHALATION SCH ×4 (08:54→20:06)
[2018-02-07 11:50] LABS: Glucose,Whole Blood 141 mg/dL (75-99)
--- NOTE | 2018-02-07 12:58 | XR ---
EXAMINATION TYPE: XR chest 1V DATE OF EXAM: 02/07/2018 COMPARISON: 02/06/2018 INDICATION: Short of breath TECHNIQUE: Single frontal view of the chest is obtained. FINDINGS: The heart size is enlarged. The pulmonary vasculature is normal. Some minimal subsegmental atelectasis is at the right diaphragm. Anterior cervical fusion plate and screws are present. Sternotomy wires are present. IMPRESSION: 1. Cardiomegaly. 2. Minimal subsegmental atelectasis right diaphragm
[2018-02-07] MEDS: MEROPENEM 1 GM in SODIUM CHLORIDE 0.9% 100 ML IVPB SCH ×2 (13:05→23:07)
[2018-02-07] MEDS ORDERED: ALBUTEROL NEBULIZED 2.5 MG/3 ML INHALATION STA (13:23)
[2018-02-07 14:10] LABS: Glucose,Whole Blood 152 mg/dL (75-99)
[2018-02-07 14:13] LABS: ABG Base Excess -0.5 mmol/L; ABG HCO3 25 mmol/L (21-25); ABG PCO2 44 mmHg (35-45); ABG PH 7.37 (7.35-7.45); ABG PO2 59 mmHg (83-108); ABG TCO2 26 mmol/L (19-24)
--- NOTE | 2018-02-07 14:14 | P.PN ---
Subjective Progress Note Date: 02/07/18 57-year-old male who is well-known to the infectious disease service because of his multiple bouts of sepsis. Earlier this year the patient was hospitalized for multifocal pneumonia and MRSA was isolated from his sputum. After hospitalization he had improvement in completed his course of oral trimethoprim sulfamethoxazole with good resolution. He has had difficulties in the past with diabetes mellitus type 2 with poor control, severe coronary artery disease with several myocardial infarctions and chronic polyneuropathy. He does have a known history of gout and psoriasis that has been very difficult to control over time but have been better as of late. He did have several admissions where he was having difficulties with lactic acidosis that was thought to be medication induced. The patient currently has BiPAP in place and is not conversational. History from the relates that he's been getting weak over the last few days. Since that before coming to Hospital he was on the toilet for more than an hour and then not sure if he had a syncopal event or not. Because he was so weak and ill he was brought to hospital. Apparently at home he did have bouts of nausea and emesis. This is not occurring at this time. It is not clear that he's had cough or sputum production. Patient's related that there was some pain in his chest before admission. 02/07/2018 reveals the patient to still be very short of breath, fevers however continue and most recently is 103.2. Patient however is much more awake and alert and recognizes me by name, feels weak and ill. Objective - Vital Signs Vital signs: Vital Signs Temp 103.2 F H 02/07/18 08:00 Pulse 100 02/07/18 13:42 Resp 18 02/07/18 08:00 BP 127/88 02/07/18 08:00 Pulse Ox 90 L 02/07/18 08:00 Intake & Output 02/06/18 02/07/18 02/07/18 18:59 06:59 18:59 Intake Total 90 700 Output Total 900 550 25 Balance -810 150 -25 Weight 92.5 kg Intake: IV 600 Sodium Chloride 0.9% 1, 600 000 ml @ 200 mls/hr IV . Q5H [facility] Rx#:[id number] Intake, IV Titration 100 Amount DAPTOmycin 500 mg In 100 Sodium Chloride 0.9% 50 ml @ 100 mls/hr IV Q24H [facility] Rx#:[id number] Oral 90 Output: Urine 900 550 25 Uretheral (Leach) 550 Other: Voiding Method Indwelling Catheter Indwelling Catheter Indwelling Catheter # Voids 0 # Bowel Movements 0 - Exam 57-year-old male who has BiPAP in place, is arousable and is able to state my name much more interactive than before. He has developed generalized edema that is worse than his last evaluation. HEENT: Anicteric conjunctiva are pink and moist nasal mucosa grossly intact without significant lesions, there is no thrush. Neck: The neck is supple without significant lymphadenopathy or thyromegaly. Lungs: There is symmetrical bilateral air entry. There are a few basilar crackles and scattered expiratory wheeze but no bronchial sounds are noted. He does not cooperate for egophony or dullness. Heart: Regular rate and rhythm with an audible S1-S2, no S3 soft S4. There is no significant murmur click or rub, PMI was nondisplaced. Abdomen: Positive bowel sounds soft and appears nontender without palpable masses or organomegaly. There was no rigidity. Extremities: The upper and lower extremities have evidence of generalized edema. The left lower extremity has an area of some mild erythema but no open ulceration at this time. The feet are warm to touch. Other than the erythema on the left leg. No significant skin lesions or open lesions his underlying psoriasis is under good control at this time. Neuro: The patient is arousable and able to answer simple questions without difficulty. - Labs CBC & Chem 7: 02/07/18 05:24 02/07/18 05:24 Labs: Abnormal Lab Results - Last 24 Hours (Table) 02/06/18 02/06/18 02/06/18 Range/Units 16:49 21:18 22:48 RBC (4.30-5.90) m/uL Hgb (13.0-17.5) gm/dL Hct (39.0-53.0) % MCV (80.0-100.0) fL MCH (25.0-35.0) pg MCHC (31.0-37.0) g/dL RDW (11.5-15.5) % Lymphocytes # (Manual) (1.0-4.8) k/uL BUN (9-20) mg/dL Glucose (74-99) mg/dL POC Glucose (mg/dL) 215 H 139 H (75-99) mg/dL Calcium (8.4-10.2) mg/dL Magnesium 1.0 L* (1.6-2.3) mg/dL AST (17-59) U/L Total Protein (6.3-8.2) g/dL Albumin (3.5-5.0) g/dL 02/07/18 02/07/18 02/07/18 Range/Units 05:24 05:24 06:03 RBC 4.09 L (4.30-5.90) m/uL Hgb 9.0 L (13.0-17.5) gm/dL Hct 31.5 L (39.0-53.0) % MCV 77.1 L (80.0-100.0) fL MCH 21.9 L (25.0-35.0) pg MCHC 28.4 L (31.0-37.0) g/dL RDW 18.6 H (11.5-15.5) % Lymphocytes # (Manual) 0.51 L (1.0-4.8) k/uL BUN 22 H (9-20) mg/dL Glucose 157 H (74-99) mg/dL POC Glucose (mg/dL) 250 H (75-99) mg/dL Calcium 7.9 L (8.4-10.2) mg/dL Magnesium (1.6-2.3) mg/dL AST 78 H (17-59) U/L Total Protein 4.8 L (6.3-8.2) g/dL Albumin 2.6 L (3.5-5.0) g/dL 02/07/18 Range/Units 11:33 RBC (4.30-5.90) m/uL Hgb (13.0-17.5) gm/dL Hct (39.0-53.0) % MCV (80.0-100.0) fL MCH (25.0-35.0) pg MCHC (31.0-37.0) g/dL RDW (11.5-15.5) % Lymphocytes # (Manual) (1.0-4.8) k/uL BUN (9-20) mg/dL Glucose (74-99) mg/dL POC Glucose (mg/dL) 141 H (75-99) mg/dL Calcium (8.4-10.2) mg/dL Magnesium (1.6-2.3) mg/dL AST (17-59) U/L Total Protein (6.3-8.2) g/dL Albumin (3.5-5.0) g/dL Microbiology - Last 24 Hours (Table) 02/05/18 03:25 Blood Culture - Preliminary Blood No Growth after 48 hours 02/06/18 18:00 Gram Stain - Preliminary Penis Genital Culture - Preliminary 02/05/18 08:00 Urine Culture - Final Urine,Catheterized Laboratory Results WBC 4.6 k/uL (3.8-10.6) 02/07/18 05:24 RBC 4.09 m/uL (4.30-5.90) L 02/07/18 05:24 Hgb 9.0 gm/dL (13.0-17.5) L 02/07/18 05:24 Hct 31.5 % (39.0-53.0) L 02/07/18 05:24 MCV 77.1 fL (80.0-100.0) L 02/07/18 05:24 MCH 21.9 pg (25.0-35.0) L 02/07/18 05:24 MCHC 28.4 g/dL (31.0-37.0) L 02/07/18 05:24 RDW 18.6 % (11.5-15.5) H 02/07/18 05:24 Plt Count 211 k/uL (150-450) 02/07/18 05:24 Neutrophils % 85 % 02/05/18 03:25 Neutrophils % (Manual) 56 % 02/07/18 05:24 Band Neutrophils % 29 % 02/07/18 05:24 Lymphocytes % 5 % 02/05/18 03:25 Lymphocytes % (Manual) 11 % 02/07/18 05:24 Monocytes % 5 % 02/05/18 03:25 Monocytes % (Manual) 1 % 02/07/18 05:24 Eosinophils % 3 % 02/05/18 03:25 Eosinophils % (Manual) 2 % 02/07/18 05:24 Basophils % 0 % 02/05/18 03:25 Basophils % (Manual) 1 % 02/07/18 05:24 Neutrophils # 7.9 k/uL (1.3-7.7) H 02/05/18 03:25 Neutrophils # (Manual) 3.90 k/uL (1.3-7.7) 02/07/18 05:24 Lymphocytes # 0.5 k/uL (1.0-4.8) L 02/05/18 03:25 Lymphocytes # (Manual) 0.51 k/uL (1.0-4.8) L 02/07/18 05:24 Monocytes # 0.5 k/uL (0-1.0) 02/05/18 03:25 Monocytes # (Manual) 0.05 k/uL (0-1.0) 02/07/18 05:24 Eosinophils # 0.3 k/uL (0-0.7) 02/05/18 03:25 Eosinophils # (Manual) 0.09 k/uL (0-0.7) 02/07/18 05:24 Basophils # 0.0 k/uL (0-0.2) 02/05/18 03:25 Basophils # (Manual) 0.05 k/uL (0-0.2) 02/07/18 05:24 Nucleated RBCs 0 /100 WBC (0-0) 02/07/18 05:24 Manual Slide Review Performed 02/07/18 05:24 Large Platelets Present 02/06/18 05:16 Hypochromasia Marked 02/07/18 05:24 Anisocytosis Slight 02/07/18 05:24 Microcytosis Slight 02/07/18 05:24 Ovalocytes Present 02/07/18 05:24 Sodium 140 mmol/L (137-145) 02/07/18 05:24 Potassium 4.4 mmol/L (3.5-5.1) 02/07/18 05:24 Chloride 102 mmol/L (98-107) 02/07/18 05:24 Carbon Dioxide 28 mmol/L (22-30) 02/07/18 05:24 Anion Gap 10 mmol/L 02/07/18 05:24 BUN 22 mg/dL (9-20) H 02/07/18 05:24 Creatinine 0.90 mg/dL (0.66-1.25) 02/07/18 05:24 Est GFR (CKD-EPI)AfAm >90 (>60 ml/min/1.73 sqM) 02/07/18 05:24 Est GFR (CKD-EPI)NonAf >90 (>60 ml/min/1.73 sqM) 02/07/18 05:24 Glucose 157 mg/dL (74-99) H 02/07/18 05:24 POC Glucose (mg/dL) 152 mg/dL (75-99) H 02/07/18 14:07 POC Glu Division Operations Manager ID 02/07/18 14:[address] Glu mg/dL 206 02/05/18 15:50 Hemoglobin A1c 8.8 % (4.0-6.0) H 02/05/18 15:50 Lactic Ac Sepsis Rflx Y 02/05/18 03:57 Plasma Lactic Acid Freddy 1.3 mmol/L (0.7-2.0) 02/05/18 07:12 Calcium 7.9 mg/dL (8.4-10.2) L 02/07/18 05:24 Magnesium 1.6 mg/dL (1.6-2.3) 02/07/18 05:24 Total Bilirubin 1.0 mg/dL (0.2-1.3) 02/07/18 05:24 AST 78 U/L (17-59) H 02/07/18 05:24 ALT 61 U/L (21-72) 02/07/18 05:24 Alkaline Phosphatase 60 U/L (38-126) 02/07/18 05:24 Total Creatine Kinase 802 U/L (55-170) H 02/05/18 15:50 CK-MB (CK-2) 11.9 ng/mL (0.0-2.4) H* 02/05/18 15:50 CK-MB (CK-2) Rel Index 1.5 02/05/18 15:50 Troponin I 0.020 ng/mL (0.000-0.034) 02/05/18 15:50 NT-Pro-B Natriuret Pep 578 pg/mL 02/05/18 03:25 Total Protein 4.8 g/dL (6.3-8.2) L 02/07/18 05:24 Albumin 2.6 g/dL (3.5-5.0) L 02/07/18 05:24 Triglycerides 157 mg/dL (<150) H 02/06/18 05:16 Cholesterol 109 mg/dL (<200) 02/06/18 05:16 LDL Cholesterol, Calc 40 mg/dL (0-99) 02/06/18 05:16 HDL Cholesterol 38 mg/dL (40-60) L 02/06/18 05:16 Amylase 160 U/L (30-110) H 02/05/18 03:25 Lipase 112 U/L (23-300) 02/05/18 03:25 Urine Color Yellow 02/05/18 08:00 Urine Appearance Clear (Clear) 02/05/18 08:00 Urine pH 5.0 (5.0-8.0) 02/05/18 08:00 Ur Specific [place] 1.018 (1.001-1.035) 02/05/18 08:00 Urine Protein Trace (Negative) H 02/05/18 08:00 Urine Glucose (UA) Negative (Negative) 02/05/18 08:00 Urine Ketones Negative (Negative) 02/05/18 08:00 Urine Blood Negative (Negative) 02/05/18 08:00 Urine Nitrite Negative (Negative) 02/05/18 08:00 Urine Bilirubin 2+ (Negative) H 02/05/18 08:00 Urine Urobilinogen <2.0 mg/dL (<2.0) 02/05/18 08:00 Ur Leukocyte Esterase Negative (Negative) 02/05/18 08:00 Influenza Type A RNA Not Detected (Not Detectd) 02/05/18 04:15 Influenza Type B (PCR) Not Detected (Not Detectd) 02/05/18 04:15 Microbiology 02/05/18 03:25 Blood Blood Culture - Preliminary No Growth after 48 hours 02/06/18 18:00 Penis Gram Stain - Preliminary 02/06/18 18:00 Penis Genital Culture - Preliminary 02/05/18 08:00 Urine,Catheterized Urine Culture - Final Assessment and Plan (1) Fever Narrative/Plan: 57-year-old male presents to Hospital with significant alteration of his mental status with increasing weakness and potentially a syncopal or presyncopal event. He had some nausea and emesis and wasn't feeling well for a few days. Her presentation patient is somnolent and requires BiPAP placement at admission. There is evidence of increased his creatinine from 1.0-1.5 showing acute renal failure. He has a history of significant underlying medical problems most recent admission was with evidence of pneumonia, current chest x-ray is clear. Patient appears to have sepsis source is not clear however he does have a history of MRSA infection in the past and antibiotic therapy will be adjusted to continue with the Zosyn, but without pneumonia Levaquin be discontinued and we'll add in daptomycin therapy for MRSA coverage, in that there is no distinct evidence of pneumonia at this time. Try to avoid vancomycin therapy with evidence of the acute renal failure. His ongoing difficulties with poor control of his diabetes is under by the A1c of 8.7. He was evidence of lactic acidosis at admission it is improved with hydration, he's had difficulty with lactic acidosis in the past that was medication induced. At this time appears to be more related to underlying infection given his high-grade fever at admission. Follow-up studies are normal. patient has had some worsening of his shortness of breath. And with this he is being moved to he intensive care unit. He has worsening respiratory failure.echocardiogram has been ordered as our follow-up blood cultures given . He has a history of prior signific very protracted period. Current Visit: Yes Status: Acute Code(s): R50.9 - FEVER, UNSPECIFIED SNOMED Code(s): 384555568 (2) Sepsis Current Visit: No Status: Acute Code(s): A41.9 - SEPSIS, UNSPECIFIED ORGANISM SNOMED Code(s): 54842232 (3) Altered mental status Current Visit: Yes Status: Acute Code(s): R41.82 - ALTERED MENTAL STATUS, UNSPECIFIED SNOMED Code(s): 267097245 (4) Acute renal failure Current Visit: Yes Status: Acute Code(s): N17.9 - ACUTE KIDNEY FAILURE, UNSPECIFIED SNOMED Code(s): 80056757
--- NOTE | 2018-02-07 14:19 | ECHOF ---
Referral Reason:Endocarditis MEASUREMENTS -------- HEIGHT: 165.1 cm WEIGHT: 92.1 kg BP: 127/89 IVSd: 1.3 cm (0.6 - 1.1) LVIDd: 6.2 cm (3.9 - 5.3) LVPWd: 1.1 cm (0.6 - 1.1) IVSs: 1.0 cm LVIDs: 5.0 cm LVPWs: 1.5 cm LAESV Index (A-L): 30.50 ml/m Ao Diam: 3.2 cm (2.0 - 3.7) LA Diam: 3.9 cm (2.7 - 3.8) MV EXCURSION: 19.783 mm (> 18.000) MV EF SLOPE: 81 mm/s (70 - 150) MV E Javy: 0.77 m/s MV DecT: 270 ms MV A Javy: 1.15 m/s MV E/A Ratio: 0.67 RAP: 5.00 mmHg RVSP: 10.39 mmHg FINDINGS -------- Sinus rhythm. This was a techncally difficult study with suboptimal views, , Lumason utilized for enhancement of im ages. The left ventricular size is normal. There is mild concentric left ventricular hypertrophy. Overa ll left ventricular systolic function is moderately impaired with, an EF between 35 - 40 %. Questio nable echogenic mass was seen on the basal IVS. The right ventricle is normal in size. The left atrial size is normal. LA is midly dilated 29-33ml/m2. The right atrial size is normal. 5.0mg OF Lumason UTLIZED: 2 OR MORE WALL SEGMENTS NOT VISUALIZED. There is mild aortic valve sclerosis. There is no evidence of aortic regurgitation. Mild mitral annular calcification present. Mild mitral regurgitation is present. The tricuspid valve was not well visualized. Mild tricuspid regurgitation present. There is no ev idence of pulmonary hypertension. The right ventricular systolic pressure, as measured by Doppler, is 10.39mmHg. The pulmonic valve was not well visualized. The aortic root size is normal. There is no pericardial effusion. CONCLUSIONS -------- 1. This was a techncally difficult study with suboptimal views, , Lumason utilized for enhancement of images. 2. The left ventricular size is normal. 3. There is mild concentric left ventricular hypertrophy. 4. Overall left ventricular systolic function is moderately impaired with, an EF between 35 - 40 %. 5. Questionable echogenic mass was seen on the basal IVS. 6. The right ventricle is normal in size. 7. The left atrial size is normal. 8. LA is midly dilated 29-33ml/m2. 9. The right atrial size is normal. 10. 5.0mg OF Lumason UTLIZED: 2 OR MORE WALL SEGMENTS NOT VISUALIZED. 11. There is mild aortic valve sclerosis. 12. Mild mitral annular calcification present. 13. Mild mitral regurgitation is present. 14. The tricuspid valve was not well visualized. 15. Mild tricuspid regurgitation present. 16. There is no evidence of pulmonary hypertension. 17. The right ventricular systolic pressure, as measured by Doppler, is 10.39mmHg. 18. The pulmonic valve was not well visualized. 19. The aortic root size is normal. 20. There is no pericardial effusion. PRIVATE DUTY RN: Emily Kingston RDCS
[2018-02-07] MEDS ORDERED: NALOXONE 0.4 MG/ML 1 ML VIAL IV PRN (16:46)
[2018-02-07 17:16] LABS: Glucose,Whole Blood 178 mg/dL (75-99)
[2018-02-07 20:20] LABS: Glucose,Whole Blood 169 mg/dL (75-99)
[2018-02-07] MEDS: DAPTOmycin 500 MG in SODIUM CHLORIDE 0.9% 50 ML IV SCH (21:50)
[2018-02-07] MEDS: LEVOTHYROXINE 50 MCG TAB PO SCH (21:50)
[2018-02-07] MEDS: ASPIRIN 81 MG PO SCH (21:50)
[2018-02-07] MEDS: amLODIPine 5 MG TAB PO SCH (21:50)
[2018-02-07] MEDS: MONTELUKAST 10 MG TAB PO SCH (21:50)
[2018-02-07] MEDS: ACETAMINOPHEN TAB 325 MG TAB PO PRN (23:13)
[2018-02-08] MEDS: KETOROLAC 30 MG/ML 1 ML VIAL IVP PRN ×2 (00:20→17:47)
[2018-02-08] MEDS: DILTIAZEM 50 MG in SODIUM CHLORIDE 0.9% 40 ML IV SCH ×4 (01:07→09:19)
[2018-02-08 05:19] LABS: Anisocytosis Slight; Basophils % (A) 0 %; Eosinophils # (A) 0.2 k/uL (0-0.7); Eosinophils % (A) 2 %; HCT 30.3 % (39.0-53.0); HGB 8.6 gm/dL (13.0-17.5); Hypochromasia Marked; Lymphocytes # (A) 0.5 k/uL (1.0-4.8); Lymphocytes % (A) 6 %; MCH 21.6 pg (25.0-35.0); MCHC 28.3 g/dL (31.0-37.0); MCV 76.3 fL (80.0-100.0); Mean Platelet Volume 7.1; Microcytosis Moderate; Monocytes # (A) 0.4 k/uL (0-1.0); Monocytes % (A) 4 %; Neutrophils # (A) 7.3 k/uL (1.3-7.7); Neutrophils % (A) 86 %; Platelet Count 224 k/uL (150-450); RBC 3.97 m/uL (4.30-5.90); WBC 8.4 k/uL (3.8-10.6)
[2018-02-08 05:29] LABS: ALT 57 U/L (21-72); AST 64 U/L (17-59); Albumin 2.2 g/dL (3.5-5.0); Alkaline Phosphatase 52 U/L (38-126); Anion Gap 10 mmol/L; Blood Urea Nitrogen 25 mg/dL (9-20); Calcium 7.4 mg/dL (8.4-10.2); Carbon Dioxide 29 mmol/L (22-30); Chloride 102 mmol/L (98-107); Glucose 98 mg/dL (74-99); Magnesium 2.2 mg/dL (1.6-2.3); Phosphorus 3.1 mg/dL (2.5-4.5); Potassium 4.3 mmol/L (3.5-5.1); Sodium 141 mmol/L (137-145); Total Bilirubin 0.9 mg/dL (0.2-1.3); Total Protein 4.3 g/dL (6.3-8.2)
[2018-02-08] MEDS: SODIUM CHLORIDE 0.45% 1,000 ML IV SCH ×2 (05:54→17:40)
[2018-02-08 06:09] LABS: ABG Base Excess 3.9 mmol/L; ABG HCO3 29 mmol/L (21-25); ABG PCO2 47 mmHg (35-45); ABG PO2 78 mmHg (83-108); ABG TCO2 30 mmol/L (19-24)
[2018-02-08 07:30] LABS: Glucose,Whole Blood 115 mg/dL (75-99)
--- NOTE | 2018-02-08 07:39 | XR ---
EXAMINATION TYPE: XR chest 1V DATE OF EXAM: 02/08/2018 COMPARISON: 02/07/2018 HISTORY: Shortness of breath TECHNIQUE: Single frontal view of the chest is obtained. FINDINGS: The patchy opacity at the right lung base has become more confluent in the interim. Additi onally there is no mild pulmonary vascular congestion most pronounced dependently. Post CABG changes are seen in the chest examination with cardiomegaly. Cervical fusion device partially visualized. Oss eous structures are grossly intact. IMPRESSION: Increasing confluence of the right basilar opacity suspicious for developing pneumonia s uperimposed upon new mild pulmonary vascular congestion.
[2018-02-08] MEDS: IPRATROPIUM-ALBUTEROL 3 ML NEB INHALATION SCH ×4 (07:57→19:48)
[2018-02-08] MEDS: INSULIN ASPART 100 UNIT/ML 1 ML 10 ML VIAL SQ SCH ×4 (08:35→21:05)
[2018-02-08] MEDS: HYDROCORTISONE 20 MG TAB PO SCH (08:36)
[2018-02-08] MEDS: GABAPENTIN 400 MG CAP PO SCH ×4 (08:36→21:04)
[2018-02-08] MEDS: HEPARIN SODIUM,PORCINE 5,000 UNIT/ML 1 ML VIAL SQ SCH ×3 (08:36→23:35)
[2018-02-08] MEDS: PANTOPRAZOLE 40 MG TABLET PO SCH (08:36)
[2018-02-08] MEDS: DULoxetine HCL 30 MG CAPSULE.DR PO SCH ×2 (08:36→21:04)
[2018-02-08] MEDS: LISINOPRIL 5 MG TAB PO SCH (08:36)
[2018-02-08] MEDS: MEROPENEM 1 GM in SODIUM CHLORIDE 0.9% 100 ML IVPB SCH ×3 (08:38→23:35)
[2018-02-08] MEDS: INSULIN DETEMIR 100 UNIT/ML 10 ML VIAL SQ SCH (09:19)
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
[2018-02-08 12:05] LABS: Glucose,Whole Blood 122 mg/dL (75-99)
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
--- NOTE | 2018-02-08 15:06 | P.PN ---
Subjective Progress Note Date: 02/08/18 Principal diagnosis: Altered mental status, acute on chronic hypoxic and hypercapnic history failure , severe degree of sleep disorder breathing and sleep apnea, acute COPD exacerbation, right lower lobe pneumonia, tarry artery disease, congestive heart failure with chronic systolic heart failure, chronic gout 02/08/2018, patient seen eval examined in the ICU he is more awake and alert opens eyes follow simple command no obvious distress present breathing more comfortably he is off of BiPAP currently has been on supplemental oxygen with 3 L saturation are in mid 90s he is tolerating by mouth fairly well no choking or cough has been noted labs reviewed medications reviewed chest x-ray as well as arterial blood gas performed this morning reviewed as well 57-year-old male who was admitted into the hospital on February 05 with the altered mental status confusion and a spiking fever and was brought into the emergency department by the family member for above-mentioned complaint patient was initially admitted into the medical floor where due to significant hypoxia and worsening mental status was transferred to the ICU where I saw the patient patient initially was placed on the BiPAP of 10 and 5 subsequently adjusted to 12 and 8 with that patient tolerated very well his mental status significantly improved patient was more arousable at the time of my evaluation, no history of seizure activity or hemiparesis, does have spiking fever up to 102-103 at home, denies any bowel or bladder dysfunction except an episode of diarrhea, denies any chest pain or radiation of pain does have ongoing difficulty in breathing the, arterial blood gas were performed x-ray reviewed decision was done not to intubate but rather to adjust the BiPAP setting Review of the data revealed that earlier this year the patient was hospitalized for multifocal pneumonia and MRSA was isolated from his sputum. After hospitalization he had improvement in completed his course of oral trimethoprim sulfamethoxazole with good resolution. He has had difficulties in the past with diabetes mellitus type 2 with poor control, severe coronary artery disease with several myocardial infarctions and chronic polyneuropathy, also has a severe degree of sleep disorder breathing obstructive sleep apnea however he has been using his CPAP machine regularly,. He does have a known history of gout and psoriasis that has been very difficult to control over time but have been better as of late. Objective - Vital Signs Vital signs: Vital Signs Temp 98.6 F 02/08/18 12:00 Pulse 87 02/08/18 14:00 Resp 12 02/08/18 14:00 BP 128/74 02/08/18 14:00 Pulse Ox 94 L 02/08/18 14:00 Intake & Output 02/07/18 02/08/18 02/08/18 18:59 06:59 18:59 Intake Total 600 993.417 700 Output Total 205 550 455 Balance 395 443.417 245 Weight 92.5 kg 104.7 kg Intake: IV 975 700 DAPTOmycin 500 mg In 50 Sodium Chloride 0.9% 50 ml @ 100 mls/hr IV Q24H [facility] Rx#:[id number] Meropenem 1 gm In Sodium 100 100 Chloride 0.9% 100 ml @ 100 mls/hr IVPB Q8HR [facility] Rx#:[id number] Sodium Chloride 0.45% 1, 825 600 000 ml @ 75 mls/hr IV . [id number] [facility] Rx#:[id number] Intake, IV Titration 600 18.417 Amount ACETAMINOPHEN IV (For NPO 100 ) 1,000 mg In Empty Bag 1 bag @ 400 mls/hr IVPB Q6HR [facility] Rx#:[id number] Diltiazem 50 mg In Sodium 18.417 Chloride 0.9% 40 ml @ 10 MG/HR 10 mls/hr IV .Q5H [facility] Rx#:[id number] Magnesium Sulfate-D5w Pmx 100 1 gm In Dextrose/Water 1 100ml.bag @ 100 mls/hr IVPB Q1H [facility] Rx#: [id number] Magnesium Sulfate-D5w Pmx 100 1 gm In Dextrose/Water 1 100ml.bag @ 100 mls/hr IVPB Q1H [facility] Rx#: [id number] Sodium Chloride 0.45% 1, 300 000 ml @ 75 mls/hr IV . [id number] [facility] Rx#:[id number] Output: Urine 205 550 455 Other: Voiding Method Indwelling Catheter Indwelling Catheter Indwelling Catheter # Voids 0 0 - Exam 57-year-old male who has nasal cannula in place, is awake and alert oriented 3 HEENT: Anicteric conjunctiva are pink and moist nasal mucosa grossly intact without significant lesions, there is no thrush. Neck: The neck is supple without significant lymphadenopathy or thyromegaly. Lungs: There is symmetrical bilateral air entry. There are a few basilar crackles and scattered expiratory wheeze but no bronchial sounds are noted. Heart: Regular rate and rhythm with an audible S1-S2, no S3 soft S4. There is no significant murmur click or rub, PMI was nondisplaced. Abdomen: Positive bowel sounds soft and appears nontender without palpable masses or organomegaly. There was no rigidity. Extremities: The upper and lower extremities have evidence of generalized edema. The left lower extremity has an area of some mild erythema but no open ulceration at this time. The feet are warm to touch. Other than the erythema on the left leg. No significant skin lesions or open lesions his underlying psoriasis is under good control at this time. Neuro: The patient is awake and alert sitting upright on the chair - Labs CBC & Chem 7: 02/08/18 04:08 02/08/18 04:08 Labs: Abnormal Lab Results - Last 24 Hours (Table) 02/07/18 02/07/18 02/07/18 Range/Units 12:52 16:55 20:17 RBC (4.30-5.90) m/uL Hgb (13.0-17.5) gm/dL Hct (39.0-53.0) % MCV (80.0-100.0) fL MCH (25.0-35.0) pg MCHC (31.0-37.0) g/dL RDW (11.5-15.5) % Lymphocytes # (1.0-4.8) k/uL ABG pCO2 (35-45) mmHg ABG pO2 (83-108) mmHg ABG HCO3 (21-25) mmol/L ABG Total CO2 (19-24) mmol/L BUN (9-20) mg/dL POC Glucose (mg/dL) 178 H 169 H (75-99) mg/dL Calcium (8.4-10.2) mg/dL AST (17-59) U/L Total Protein (6.3-8.2) g/dL Albumin (3.5-5.0) g/dL Procalcitonin 100.00 H (0.02-0.09) ng/mL 02/08/18 02/08/18 02/08/18 Range/Units 04:08 04:08 06:05 RBC 3.97 L (4.30-5.90) m/uL Hgb 8.6 L (13.0-17.5) gm/dL Hct 30.3 L (39.0-53.0) % MCV 76.3 L (80.0-100.0) fL MCH 21.6 L (25.0-35.0) pg MCHC 28.3 L (31.0-37.0) g/dL RDW 19.0 H (11.5-15.5) % Lymphocytes # 0.5 L (1.0-4.8) k/uL ABG pCO2 47 H (35-45) mmHg ABG pO2 78 L (83-108) mmHg ABG HCO3 29 H (21-25) mmol/L ABG Total CO2 30 H (19-24) mmol/L BUN 25 H (9-20) mg/dL POC Glucose (mg/dL) (75-99) mg/dL Calcium 7.4 L (8.4-10.2) mg/dL AST 64 H (17-59) U/L Total Protein 4.3 L (6.3-8.2) g/dL Albumin 2.2 L (3.5-5.0) g/dL Procalcitonin (0.02-0.09) ng/mL 02/08/18 02/08/18 Range/Units 07:29 12:04 RBC (4.30-5.90) m/uL Hgb (13.0-17.5) gm/dL Hct (39.0-53.0) % MCV (80.0-100.0) fL MCH (25.0-35.0) pg MCHC (31.0-37.0) g/dL RDW (11.5-15.5) % Lymphocytes # (1.0-4.8) k/uL ABG pCO2 (35-45) mmHg ABG pO2 (83-108) mmHg ABG HCO3 (21-25) mmol/L ABG Total CO2 (19-24) mmol/L BUN (9-20) mg/dL POC Glucose (mg/dL) 115 H 122 H (75-99) mg/dL Calcium (8.4-10.2) mg/dL AST (17-59) U/L Total Protein (6.3-8.2) g/dL Albumin (3.5-5.0) g/dL Procalcitonin (0.02-0.09) ng/mL Microbiology - Last 24 Hours (Table) 02/05/18 03:25 Blood Culture - Preliminary Blood No Growth after 72 hours 02/06/18 17:25 Blood Culture - Preliminary Blood No Growth after 24 hours Assessment and Plan Assessment: Altered mental status related to hypoxia and severe hypercapnia Acute on chronic hypoxic and hypercapnic respirator failure Severe degree of sleep disorder breathing and sleep apnea Acute COPD exacerbation Purulent tracheobronchitis Bilateral lower lobe pneumonia right more than left Severe degree of coronary artery disease, chronic systolic heart failure Chronic microcytic anemia Electrolyte imbalance with severe hypomagnesemia Plan: BiPAP support pressure adjusted see orders for detail Continue broad-spectrum antibiotics Continue home medications and supportive care Deep breathing exercises incentive spirometry Further recommendations pending plan of care as per clinical response of the patient Hold on intubation as patient likely will regain his mental status with adequate treatment with BiPAP Will follow clinical course closely Can be moved out of the ICU Time with Patient: Greater than 30
[2018-02-08] MEDS: HYDROcodone/APAP 10-325MG 1 EACH TAB PO PRN (15:07)
--- NOTE | 2018-02-08 16:40 | PN ---
PROGRESS NOTE Mr. Ribera is a gentleman with history of CAD and came in with what seems to be sepsis and pneumonia and is recovering slowly from a pulmonary standpoint. Apparently he had a spell of atrial fibrillation yesterday with a rapid rate. He is now back in sinus rhythm. Cardizem has been discontinued. He is comfortable and resting. Since atrial fibrillation occurred as 1 episode in the setting of sepsis and respiratory issues, I would not recommend long-term anticoagulation but I discussed this with the patient. Plan is to continue current medications and increase activity. Continue beta blockers and see how he does. Vital signs are stable. JVD is 1 cm. No carotid bruit. S1-S2 heard normally. Lungs reveal fair air entry. Abdomen and lower extremity exam is unchanged. MMODL / IJN: [id number] /
[2018-02-08 17:36] LABS: Glucose,Whole Blood 127 mg/dL (75-99)
[2018-02-08 20:52] LABS: Glucose,Whole Blood 231 mg/dL (75-99)
[2018-02-08] MEDS: DAPTOmycin 500 MG in SODIUM CHLORIDE 0.9% 50 ML IV SCH (21:04)
[2018-02-08] MEDS: LEVOTHYROXINE 50 MCG TAB PO SCH (21:04)
[2018-02-08] MEDS: ASPIRIN 81 MG PO SCH (21:04)
[2018-02-08] MEDS: MONTELUKAST 10 MG TAB PO SCH (21:04)
[2018-02-08] MEDS: amLODIPine 5 MG TAB PO SCH (21:04)
[2018-02-09 05:00] LABS: Anisocytosis Slight; Basophils % (A) 0 %; Eosinophils # (A) 0.2 k/uL (0-0.7); Eosinophils % (A) 2 %; HCT 29.6 % (39.0-53.0); HGB 8.4 gm/dL (13.0-17.5); Hypochromasia Marked; Lymphocytes # (A) 0.6 k/uL (1.0-4.8); Lymphocytes % (A) 6 %; MCH 21.6 pg (25.0-35.0); MCHC 28.3 g/dL (31.0-37.0); MCV 76.4 fL (80.0-100.0); Mean Platelet Volume 6.7; Microcytosis Moderate; Monocytes # (A) 0.4 k/uL (0-1.0); Monocytes % (A) 5 %; Neutrophils # (A) 8.1 k/uL (1.3-7.7); Neutrophils % (A) 84 %; Platelet Count 236 k/uL (150-450); RBC 3.87 m/uL (4.30-5.90); RDW 19.4 % (11.5-15.5); WBC 9.6 k/uL (3.8-10.6)
[2018-02-09 05:10] LABS: ALT 54 U/L (21-72); AST 53 U/L (17-59); Albumin 2.5 g/dL (3.5-5.0); Alkaline Phosphatase 92 U/L (38-126); Anion Gap 12 mmol/L; Blood Urea Nitrogen 30 mg/dL (9-20); Calcium 7.8 mg/dL (8.4-10.2); Carbon Dioxide 27 mmol/L (22-30); Chloride 102 mmol/L (98-107); Glucose 108 mg/dL (74-99); Magnesium 2.2 mg/dL (1.6-2.3); Phosphorus 3.6 mg/dL (2.5-4.5); Potassium 4.5 mmol/L (3.5-5.1); Sodium 141 mmol/L (137-145); Total Bilirubin 0.7 mg/dL (0.2-1.3); Total Protein 4.9 g/dL (6.3-8.2)
[2018-02-09 07:12] LABS: Glucose,Whole Blood 170 mg/dL (75-99)
--- NOTE | 2018-02-09 07:25 | XR ---
EXAMINATION TYPE: XR chest 1V DATE OF EXAM: 02/09/2018 COMPARISON: 02/08/2018 HISTORY: Shortness of breath. TECHNIQUE: Single frontal view of the chest is obtained. FINDINGS: There is improved aeration of the lung bases however bibasilar strand-like opacities are s een in addition to the left midlung atelectasis. Findings could represent multifocal atelectasis or p neumonia. Cardiomediastinal silhouette is again enlarged with post CABG changes of the chest. Osseous structures are intact. Cervical fusion device is partially visualized. IMPRESSION: Improved aeration of the lung bases with mild persistent strand-like opacities and new l eft midlung opacity. Given the short-term interval improvement of the lung bases and morphology of th e left midlung density findings most likely relate to atelectasis or less likely pneumonia.
[2018-02-09] MEDS: MEROPENEM 1 GM in SODIUM CHLORIDE 0.9% 100 ML IVPB SCH ×3 (08:07→23:45)
[2018-02-09] MEDS: SODIUM CHLORIDE 0.45% 1,000 ML IV SCH (08:07)
[2018-02-09] MEDS: DULoxetine HCL 30 MG CAPSULE.DR PO SCH ×2 (08:08→22:17)
[2018-02-09] MEDS: INSULIN ASPART 100 UNIT/ML 1 ML 10 ML VIAL SQ SCH ×4 (08:08→21:12)
[2018-02-09] MEDS: HYDROCORTISONE 20 MG TAB PO SCH (08:08)
[2018-02-09] MEDS: GABAPENTIN 400 MG CAP PO SCH ×4 (08:08→22:18)
[2018-02-09] MEDS: PANTOPRAZOLE 40 MG TABLET PO SCH (08:08)
[2018-02-09] MEDS: HEPARIN SODIUM,PORCINE 5,000 UNIT/ML 1 ML VIAL SQ SCH (08:08)
[2018-02-09] MEDS: LISINOPRIL 5 MG TAB PO SCH (08:09)
[2018-02-09] MEDS: IPRATROPIUM-ALBUTEROL 3 ML NEB INHALATION SCH ×4 (08:32→19:40)
[2018-02-09] MEDS: FUROSEMIDE 20 MG TAB PO SCH (09:22)
[2018-02-09] MEDS: INSULIN DETEMIR 100 UNIT/ML 10 ML VIAL SQ SCH ×2 (09:22→22:17)
[2018-02-09] MEDS: APIXABAN 5 MG TAB PO SCH ×2 (09:22→21:11)
[2018-02-09] MEDS: METOPROLOL TARTRATE 25 MG TAB PO SCH ×2 (09:22→21:12)
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
--- NOTE | 2018-02-09 09:59 | PN ---
PROGRESS NOTE This gentleman has CAD and pneumonia and is being treated for pneumonia. He has developed atrial fibrillation, paroxysmal in nature for 24 hours ago and again last night he had another bout of atrial fibrillation lasting nearly 45 minutes. I am recommending that we discontinue subcu heparin, initiate him on Eliquis 5 mg b.i.d. and also metoprolol tartrate 25 mg b.i.d. Discussed with the patient. Vital signs are stable. Blood pressure is 150/80, heart rate is 70, sinus at this time. S1-S2 heard normally. Lungs reveal improved air entry. Abdomen and lower extremity exam is unchanged. We will therefore initiate Eliquis and add a beta gideon. Continue his other medications. MMODL / IJN: [id number] /
[2018-02-09 12:00] LABS: Glucose,Whole Blood 201 mg/dL (75-99)
--- NOTE | 2018-02-09 12:55 | P.PN ---
Subjective Progress Note Date: 02/09/18 Principal diagnosis: Paroxysmal atrial fibrillation with rapid ventricular response, Altered mental status, acute on chronic hypoxic and hypercapnic history failure, severe degree of sleep disorder breathing and sleep apnea, acute COPD exacerbation, right lower lobe pneumonia, tarry artery disease, congestive heart failure with chronic systolic heart failure, chronic gout 05/12/2018, patient seen eval evaluated examined during the rounds patient is breathing comfortably on supplemental oxygen has intermittent cough chest x-ray performed today reviewed there is improved aeration is seen some patchy infiltrate at the bases and left midlung field cannot be excluded, note is made of cardiovascular recommendation for recurrent paroxysmal atrial fibrillation of initiating on Eliquis and low-dose metoprolol 02/08/2018, patient seen evdeb examined in the ICU he is more awake and alert opens eyes follow simple command no obvious distress present breathing more comfortably he is off of BiPAP currently has been on supplemental oxygen with 3 L saturation are in mid 90s he is tolerating by mouth fairly well no choking or cough has been noted labs reviewed medications reviewed chest x-ray as well as arterial blood gas performed this morning reviewed as well 57-year-old male who was admitted into the hospital on February 05 with the altered mental status confusion and a spiking fever and was brought into the emergency department by the family member for above-mentioned complaint patient was initially admitted into the medical floor where due to significant hypoxia and worsening mental status was transferred to the ICU where I saw the patient patient initially was placed on the BiPAP of 10 and 5 subsequently adjusted to 12 and 8 with that patient tolerated very well his mental status significantly improved patient was more arousable at the time of my evaluation, no history of seizure activity or hemiparesis, does have spiking fever up to 102-103 at home, denies any bowel or bladder dysfunction except an episode of diarrhea, denies any chest pain or radiation of pain does have ongoing difficulty in breathing the, arterial blood gas were performed x-ray reviewed decision was done not to intubate but rather to adjust the BiPAP setting Review of the data revealed that earlier this year the patient was hospitalized for multifocal pneumonia and MRSA was isolated from his sputum. After hospitalization he had improvement in completed his course of oral trimethoprim sulfamethoxazole with good resolution. He has had difficulties in the past with diabetes mellitus type 2 with poor control, severe coronary artery disease with several myocardial infarctions and chronic polyneuropathy, also has a severe degree of sleep disorder breathing obstructive sleep apnea however he has been using his CPAP machine regularly,. He does have a known history of gout and psoriasis that has been very difficult to control over time but have been better as of late. Objective - Vital Signs Vital signs: Vital Signs Temp 97.9 F 02/09/18 12:00 Pulse 74 02/09/18 12:00 Resp 13 02/09/18 12:00 BP 123/77 02/09/18 12:00 Pulse Ox 97 02/09/18 12:00 Intake & Output 02/08/18 02/09/18 02/09/18 18:59 06:59 18:59 Intake Total 875 375 535 Output Total 1055 665 480 Balance -180 -290 55 Weight 104.7 kg 104.6 kg Intake: IV 775 375 175 DAPTOmycin 500 mg In 50 Sodium Chloride 0.9% 50 ml @ 100 mls/hr IV Q24H [facility] Rx#:[id number] Meropenem 1 gm In Sodium 100 100 100 Chloride 0.9% 100 ml @ 100 mls/hr IVPB Q8HR [facility] Rx#:[id number] Sodium Chloride 0.45% 1, 675 225 75 000 ml @ 75 mls/hr IV . [id number] [facility] Rx#:[id number] Oral 100 360 Output: Urine 1055 665 480 Other: Voiding Method Indwelling Catheter Indwelling Catheter Indwelling Catheter - Exam 57-year-old male who has nasal cannula in place, is awake and alert oriented 3 HEENT: Anicteric conjunctiva are pink and moist nasal mucosa grossly intact without significant lesions, there is no thrush. Neck: The neck is supple without significant lymphadenopathy or thyromegaly. Lungs: There is symmetrical bilateral air entry. There are a few basilar crackles and scattered expiratory wheeze but no bronchial sounds are noted. Heart: Regular rate and rhythm with an audible S1-S2, no S3 soft S4. There is no significant murmur click or rub, PMI was nondisplaced. Abdomen: Positive bowel sounds soft and appears nontender without palpable masses or organomegaly. There was no rigidity. Extremities: The upper and lower extremities have evidence of generalized edema. The left lower extremity has an area of some mild erythema but no open ulceration at this time. The feet are warm to touch. Other than the erythema on the left leg. No significant skin lesions or open lesions his underlying psoriasis is under good control at this time. Neuro: The patient is awake and alert sitting upright on the chair - Labs CBC & Chem 7: 02/09/18 04:27 02/09/18 04:27 Labs: Abnormal Lab Results - Last 24 Hours (Table) 02/08/18 02/08/18 02/09/18 Range/Units 17:35 20:50 04:27 RBC 3.87 L (4.30-5.90) m/uL Hgb 8.4 L (13.0-17.5) gm/dL Hct 29.6 L (39.0-53.0) % MCV 76.4 L (80.0-100.0) fL MCH 21.6 L (25.0-35.0) pg MCHC 28.3 L (31.0-37.0) g/dL RDW 19.4 H (11.5-15.5) % Neutrophils # 8.1 H (1.3-7.7) k/uL Lymphocytes # 0.6 L (1.0-4.8) k/uL BUN (9-20) mg/dL Glucose (74-99) mg/dL POC Glucose (mg/dL) 127 H 231 H (75-99) mg/dL Calcium (8.4-10.2) mg/dL Total Protein (6.3-8.2) g/dL Albumin (3.5-5.0) g/dL 02/09/18 02/09/18 02/09/18 Range/Units 04:27 07:09 11:58 RBC (4.30-5.90) m/uL Hgb (13.0-17.5) gm/dL Hct (39.0-53.0) % MCV (80.0-100.0) fL MCH (25.0-35.0) pg MCHC (31.0-37.0) g/dL RDW (11.5-15.5) % Neutrophils # (1.3-7.7) k/uL Lymphocytes # (1.0-4.8) k/uL BUN 30 H (9-20) mg/dL Glucose 108 H (74-99) mg/dL POC Glucose (mg/dL) 170 H 201 H (75-99) mg/dL Calcium 7.8 L (8.4-10.2) mg/dL Total Protein 4.9 L (6.3-8.2) g/dL Albumin 2.5 L (3.5-5.0) g/dL Microbiology - Last 24 Hours (Table) 02/05/18 03:25 Blood Culture - Preliminary Blood No Growth after 96 hours 02/06/18 17:25 Blood Culture - Preliminary Blood No Growth after 48 hours 02/07/18 14:47 Blood Culture - Preliminary Blood No Growth after 24 hours 02/07/18 12:52 Blood Culture - Preliminary Blood No Growth after 24 hours Assessment and Plan Assessment: Altered mental status related to hypoxia and severe hypercapnia Acute on chronic hypoxic and hypercapnic respirator failure Paroxysmal atrial fibrillation with rapid ventricular response Severe degree of sleep disorder breathing and sleep apnea Acute COPD exacerbation Purulent tracheobronchitis Bilateral lower lobe pneumonia right more than left Severe degree of coronary artery disease, chronic systolic heart failure Chronic microcytic anemia Electrolyte imbalance with severe hypomagnesemia Plan: BiPAP support pressure adjusted see orders for detail each night and when necessary during the day Continue broad-spectrum antibiotics Okay to DC the subcu heparin and initiate patient on Eliquis Continue home medications and supportive care Deep breathing exercises incentive spirometry Further recommendations pending plan of care as per clinical response of the patient patient newman regain his mental status with adequate treatment with BiPAP Will follow clinical course closely Time with Patient: Greater than 30
[2018-02-09] MEDS: ACETAMINOPHEN TAB 325 MG TAB PO PRN (16:09)
[2018-02-09 16:22] LABS: Glucose,Whole Blood 197 mg/dL (75-99)
[2018-02-09] MEDS: HYDROcodone/APAP 10-325MG 1 EACH TAB PO PRN ×2 (19:50→23:59)
[2018-02-09 20:55] LABS: Glucose,Whole Blood 204 mg/dL (75-99)
[2018-02-09] MEDS: amLODIPine 5 MG TAB PO SCH (21:04)
[2018-02-09] MEDS: MONTELUKAST 10 MG TAB PO SCH (21:11)
[2018-02-09] MEDS: DAPTOmycin 500 MG in SODIUM CHLORIDE 0.9% 50 ML IV SCH (21:12)
[2018-02-09] MEDS: LEVOTHYROXINE 50 MCG TAB PO SCH (22:17)
[2018-02-10 06:25] LABS: Glucose,Whole Blood 177 mg/dL (75-99)
[2018-02-10] MEDS: INSULIN ASPART 100 UNIT/ML 1 ML 10 ML VIAL SQ SCH ×4 (06:47→21:48)
[2018-02-10] MEDS: PANTOPRAZOLE 40 MG TABLET PO SCH (06:48)
[2018-02-10] MEDS: IPRATROPIUM-ALBUTEROL 3 ML NEB INHALATION SCH ×4 (08:20→19:18)
[2018-02-10] MEDS: HYDROcodone/APAP 10-325MG 1 EACH TAB PO PRN ×3 (08:35→21:47)
[2018-02-10] MEDS: GABAPENTIN 400 MG CAP PO SCH ×4 (08:35→21:47)
[2018-02-10] MEDS: LISINOPRIL 5 MG TAB PO SCH (08:35)
[2018-02-10] MEDS: METOPROLOL TARTRATE 25 MG TAB PO SCH ×2 (08:35→21:47)
[2018-02-10] MEDS: MEROPENEM 1 GM in SODIUM CHLORIDE 0.9% 100 ML IVPB SCH ×3 (08:35→23:34)
[2018-02-10] MEDS: DULoxetine HCL 30 MG CAPSULE.DR PO SCH ×2 (08:36→21:47)
[2018-02-10] MEDS: APIXABAN 5 MG TAB PO SCH ×2 (08:36→21:47)
[2018-02-10] MEDS: FUROSEMIDE 20 MG TAB PO SCH (08:36)
[2018-02-10] MEDS: HYDROCORTISONE 20 MG TAB PO SCH (08:36)
[2018-02-10] MEDS ORDERED: ALBUMIN HUMAN 25% 50 ML in EMPTY BAG 1 BAG IVPB ONE ×2 (09:59→12:00)
[2018-02-10] MEDS ORDERED: methylPREDNISolone SOD SUCCI 125 MG/2 ML VIAL IV STA ×2 (10:00→11:25)
--- NOTE | 2018-02-10 10:33 | P.PN ---
Subjective Progress Note Date: 02/10/18 Principal diagnosis: Paroxysmal atrial fibrillation with rapid ventricular response, Altered mental status, acute on chronic hypoxic and hypercapnic history failure, severe degree of sleep disorder breathing and sleep apnea, acute COPD exacerbation, right lower lobe pneumonia, tarry artery disease, congestive heart failure with chronic systolic heart failure, chronic gout 02/10/2018, patient seen eval reexamined during the rounds clinically patient has been doing better on 2 L oxygen patient has use BiPAP and machine at nighttime with significant improvement and respiration as well as mental status tolerating by mouth well, patient has been started on anticoagulation for recurrent paroxysmal atrial fibrillation. Currently patient is on broad- spectrum antibiotics with daptomycin and Merrem IV service following culture results and reports are reviewed, blood culture so far has been negative, last chest x-ray performed revealed improve infiltrate however some new left midlung opacities noted will repeat another chest x-ray tomorrow 05/12/2018, patient seen eval evaluated examined during the rounds patient is breathing comfortably on supplemental oxygen has intermittent cough chest x-ray performed today reviewed there is improved aeration is seen some patchy infiltrate at the bases and left midlung field cannot be excluded, note is made of cardiovascular recommendation for recurrent paroxysmal atrial fibrillation of initiating on Eliquis and low-dose metoprolol 02/08/2018, patient seen eval examined in the ICU he is more awake and alert opens eyes follow simple command no obvious distress present breathing more comfortably he is off of BiPAP currently has been on supplemental oxygen with 3 L saturation are in mid 90s he is tolerating by mouth fairly well no choking or cough has been noted labs reviewed medications reviewed chest x-ray as well as arterial blood gas performed this morning reviewed as well 57-year-old male who was admitted into the hospital on February 05 with the altered mental status confusion and a spiking fever and was brought into the emergency department by the family member for above-mentioned complaint patient was initially admitted into the medical floor where due to significant hypoxia and worsening mental status was transferred to the ICU where I saw the patient patient initially was placed on the BiPAP of 10 and 5 subsequently adjusted to 12 and 8 with that patient tolerated very well his mental status significantly improved patient was more arousable at the time of my evaluation, no history of seizure activity or hemiparesis, does have spiking fever up to 102-103 at home, denies any bowel or bladder dysfunction except an episode of diarrhea, denies any chest pain or radiation of pain does have ongoing difficulty in breathing the, arterial blood gas were performed x-ray reviewed decision was done not to intubate but rather to adjust the BiPAP setting Review of the data revealed that earlier this year the patient was hospitalized for multifocal pneumonia and MRSA was isolated from his sputum. After hospitalization he had improvement in completed his course of oral trimethoprim sulfamethoxazole with good resolution. He has had difficulties in the past with diabetes mellitus type 2 with poor control, severe coronary artery disease with several myocardial infarctions and chronic polyneuropathy, also has a severe degree of sleep disorder breathing obstructive sleep apnea however he has been using his CPAP machine regularly,. He does have a known history of gout and psoriasis that has been very difficult to control over time but have been better as of late. Objective - Vital Signs Vital signs: Vital Signs Temp 97 F L 02/10/18 08:00 Pulse 72 02/10/18 08:34 Resp 18 02/10/18 08:00 BP 102/57 02/10/18 08:00 Pulse Ox 99 02/10/18 08:20 Intake & Output 02/09/18 02/10/18 02/10/18 18:59 06:59 18:59 Intake Total 775 240 Output Total 930 200 0 Balance -155 -200 240 Weight 129.5 kg Intake: IV 175 Meropenem 1 gm In Sodium 100 Chloride 0.9% 100 ml @ 100 mls/hr IVPB Q8HR [facility] Rx#:[id number] Sodium Chloride 0.45% 1, 75 000 ml @ 75 mls/hr IV . [id number] [facility] Rx#:[id number] Oral 600 240 Output: Urine 930 200 0 Stool 0 Other: Voiding Method Indwelling Catheter Urinal # Voids 1 0 # Bowel Movements 0 - Exam 57-year-old male who has nasal cannula in place, is awake and alert oriented 3 HEENT: Anicteric conjunctiva are pink and moist nasal mucosa grossly intact without significant lesions, there is no thrush. Neck: The neck is supple without significant lymphadenopathy or thyromegaly. Lungs: There is symmetrical bilateral air entry. There are a few basilar crackles and scattered expiratory wheeze but no bronchial sounds are noted. Heart: Regular rate and rhythm with an audible S1-S2, no S3 soft S4. There is no significant murmur click or rub, PMI was nondisplaced. Abdomen: Positive bowel sounds soft and appears nontender without palpable masses or organomegaly. There was no rigidity. Extremities: The upper and lower extremities have evidence of generalized edema. The left lower extremity has an area of some mild erythema but no open ulceration at this time. The feet are warm to touch. Other than the erythema on the left leg. No significant skin lesions or open lesions his underlying psoriasis is under good control at this time. Neuro: The patient is awake and alert moving all 4 extremity no focal neurological deficit - Labs CBC & Chem 7: 02/09/18 04:27 02/09/18 04:27 Labs: Abnormal Lab Results - Last 24 Hours (Table) 02/09/18 02/09/18 02/09/18 Range/Units 11:58 16:19 20:52 POC Glucose (mg/dL) 201 H 197 H 204 H (75-99) mg/dL 02/10/18 Range/Units 06:23 POC Glucose (mg/dL) 177 H (75-99) mg/dL Microbiology - Last 24 Hours (Table) 02/05/18 03:25 Blood Culture - Preliminary Blood No Growth after 120 hours 02/06/18 18:00 Gram Stain - Final Penis Genital Culture - Final 02/06/18 17:25 Blood Culture - Preliminary Blood No Growth after 72 hours 02/07/18 14:47 Blood Culture - Preliminary Blood No Growth after 48 hours 02/07/18 12:52 Blood Culture - Preliminary Blood No Growth after 48 hours Assessment and Plan Assessment: Altered mental status related to hypoxia and severe hypercapnia New left midlung field dense infiltrate and atelectasis versus pneumonia plan for follow-up chest x-ray tomorrow Acute on chronic hypoxic and hypercapnic respirator failure Paroxysmal atrial fibrillation with rapid ventricular response Severe degree of sleep disorder breathing and sleep apnea Acute COPD exacerbation Purulent tracheobronchitis Bilateral lower lobe pneumonia right more than left Severe degree of coronary artery disease, chronic systolic heart failure Chronic microcytic anemia Electrolyte imbalance with severe hypomagnesemia Plan: BiPAP support pressure adjusted see orders for detail each night and when necessary during the day Continue broad-spectrum antibiotics Okay to maintain patient on Eliquis Continue home medications and supportive care Deep breathing exercises incentive spirometry Further recommendations pending plan of care as per clinical response of the patient patient has regain his mental status with adequate treatment with BiPAP Will follow clinical course closely Opted follow-up chest x-ray
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
[2018-02-10 11:31] LABS: Glucose,Whole Blood 201 mg/dL (75-99)
[2018-02-10] MEDS: BISACODYL 5 MG TABLET.DR PO PRN (13:47)
--- NOTE | 2018-02-10 16:03 | PN ---
PROGRESS NOTE Mr. Ribera is in sinus rhythm. Today he is breathing better, easier. Moved to telemetry. Vital signs are stable. S1-S2 heard normally. Short systolic murmur noted. Lungs are improved air entry. Abdomen and lower extremity exam is unchanged. Plan is to continue current medications, increase activity and we will continue the Eliquis 5 mg b.i.d. and also beta gideon because of his paroxysmal atrial fibrillation. MMODL / IJN: [id number] /
[2018-02-10 16:42] LABS: Glucose,Whole Blood 296 mg/dL (75-99)
[2018-02-10 21:04] LABS: Glucose,Whole Blood 335 mg/dL (75-99)
[2018-02-10] MEDS: MONTELUKAST 10 MG TAB PO SCH (21:47)
[2018-02-10] MEDS: LEVOTHYROXINE 50 MCG TAB PO SCH (21:47)
[2018-02-10] MEDS: amLODIPine 5 MG TAB PO SCH (21:47)
[2018-02-10] MEDS: DAPTOmycin 500 MG in SODIUM CHLORIDE 0.9% 50 ML IV SCH (21:48)
[2018-02-10] MEDS: INSULIN DETEMIR 100 UNIT/ML 10 ML VIAL SQ SCH (21:48)
[2018-02-11 06:02] LABS: Glucose,Whole Blood 284 mg/dL (75-99)
[2018-02-11] MEDS: INSULIN ASPART 100 UNIT/ML 1 ML 10 ML VIAL SQ SCH ×4 (06:50→21:14)
[2018-02-11] MEDS: PANTOPRAZOLE 40 MG TABLET PO SCH (06:51)
[2018-02-11] MEDS: HYDROcodone/APAP 10-325MG 1 EACH TAB PO PRN ×3 (06:54→16:54)
[2018-02-11] MEDS: IPRATROPIUM-ALBUTEROL 3 ML NEB INHALATION SCH ×4 (07:56→19:51)
[2018-02-11] MEDS: MEROPENEM 1 GM in SODIUM CHLORIDE 0.9% 100 ML IVPB SCH ×3 (08:17→23:02)
[2018-02-11] MEDS: FUROSEMIDE 20 MG TAB PO SCH (08:20)
[2018-02-11] MEDS: DULoxetine HCL 30 MG CAPSULE.DR PO SCH ×2 (08:20→20:57)
[2018-02-11] MEDS: GABAPENTIN 400 MG CAP PO SCH ×4 (08:20→20:57)
[2018-02-11] MEDS: APIXABAN 5 MG TAB PO SCH ×2 (08:20→20:57)
[2018-02-11] MEDS: LISINOPRIL 5 MG TAB PO SCH (08:21)
[2018-02-11] MEDS: METOPROLOL TARTRATE 25 MG TAB PO SCH ×2 (08:21→20:57)
[2018-02-11] MEDS: HYDROCORTISONE 20 MG TAB PO SCH (08:21)
--- NOTE | 2018-02-11 09:09 | XR ---
EXAMINATION TYPE: XR chest 1V portable DATE OF EXAM: 02/11/2018 HISTORY: Shortness of breath. COMPARISON: 02/09/2018 TECHNIQUE: Single view of the chest is submitted. FINDINGS: Demonstrated are scattered senescent parenchymal change. Patchy density right lower lobe. The heart is stable. Hilar and mediastinal structures are within normal limits. Degenerative changes are seen of the dorsal spine. IMPRESSION: 1. Patchy density right lower lobe may reflect developing infiltrate.
[2018-02-11 11:45] LABS: Glucose,Whole Blood 346 mg/dL (75-99)
[2018-02-11] MEDS: BISACODYL 5 MG TABLET.DR PO PRN (12:51)
--- NOTE | 2018-02-11 13:07 | P.PN ---
Subjective Progress Note Date: 02/11/18 This is a 57-year-old gentleman who follows with Dr. Nam in the office. 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 Patient presents to the hospital on this occasion with symptoms of progressive weakness, he also states that he was having frequent diarrhea at home. Temperature on arrival here 101.2, blood pressure 97/50, heart rate in the 90s, 93% on room air. Blood pressure 150/80 this morning, heart rate in the 90s, 99% on 2 L of oxygen. Temperature this morning 97.9. White blood cell count normal on admission, hemoglobin 9.5, platelet count 221. Sodium 146 , potassium 4.7, BUN 29, creatinine 1.0, creatinine on admission was 1.5. Troponin 0.04, 0.03, 0.02. Albumin 3.2. Influenza A and B negative. Cardiology consultation was requested because of abnormal troponins. At the time of my examination this morning, patient is somewhat lethargic. He denies any chest discomfort, he does have a significant productive cough of yellow to green sputum. Initial chest x-ray showed small amount of fluid within the right minor fissure. Abdominal x-ray revealed a nonacute abdomen. EKG shows a normal sinus rhythm with no acute changes noted. 02/11/2018 Patient was seen and examined this morning, remaining in normal sinus rhythm, breathing better overall. Blood pressure 116/70 with a heart rate in the 60s. Objective - Vital Signs Vital signs: Vital Signs Temp 98.4 F 02/11/18 11:37 Pulse 64 02/11/18 11:37 Resp 18 02/11/18 11:37 BP 116/76 02/11/18 11:37 Pulse Ox 96 02/11/18 11:37 Intake & Output 02/10/18 02/11/18 02/11/18 18:59 06:59 18:59 Intake Total 870 218 Output Total 87 525 500 Balance -5 -525 -282 Weight 117 kg Intake: IV 100 100 Meropenem 1 gm In Sodium 100 100 Chloride 0.9% 100 ml @ 100 mls/hr IVPB Q8HR [facility] Rx#:[id number] Intake, IV Titration 50 Amount Albumin Human 25% 50 ml 50 In Empty Bag 1 bag @ 100 mls/hr IVPB [facility] Rx#: [id number] Oral 720 118 Output: Urine 875 525 500 Stool 0 0 Other: Voiding Method Urinal Urinal # Voids 0 1 # Bowel Movements 0 - Exam PHYSICAL EXAMINATION: HEENT: Head is atraumatic, normocephalic. Pupils equal, round. Neck is supple. There is no elevated jugular venous pressure. HEART EXAMINATION: Heart S1, S2 normal. No murmur or gallop heard. CHEST EXAMINATION: Lungs reveal scattered coarse rhonchi throughout. ABDOMEN: Soft, nontender. Bowel sounds are heard. No organomegaly noted. EXTREMITIES: 2+ peripheral pulses with no evidence of peripheral edema and no calf tenderness noted. NEUROLOGIC patient is sleepy, mildly lethargic. oriented -3. - Labs CBC & Chem 7: 02/09/18 04:27 02/09/18 04:27 Labs: Abnormal Lab Results - Last 24 Hours (Table) 02/10/18 02/10/18 02/10/18 Range/Units 15:13 16:40 21:02 POC Glucose (mg/dL) 296 H 335 H (75-99) mg/dL Albumin 2.7 L (3.5-5.0) g/dL 02/11/18 02/11/18 Range/Units 05:57 11:44 POC Glucose (mg/dL) 284 H 346 H (75-99) mg/dL Albumin (3.5-5.0) g/dL Microbiology - Last 24 Hours (Table) 02/05/18 03:25 Blood Culture - Final Blood No Growth after 144 hours 02/06/18 17:25 Blood Culture - Preliminary Blood No Growth after 96 hours 02/07/18 14:47 Blood Culture - Preliminary Blood No Growth after 72 hours 02/07/18 12:52 Blood Culture - Preliminary Blood No Growth after 72 hours Assessment and Plan Plan: Assessment and plan #1 sepsis with elevated lactic acid #2 mildly abnormal troponins, likely secondary to sepsis, not suggestive of acute coronary syndrome. #3 acute renal insufficiency, likely secondary to dehydration from diarrhea #4 diabetes Number 5 coronary artery disease with prior bypass surgery and stent placement #6 recent hospitalization for right upper lobe pneumonia with MRSA and sepsis #7 history of cellulitis with MRSA #8 sleep apnea #9 chronic adrenal insufficiency, on Cortef #10 hyperlipidemia #11 hypothyroidism Plan Cardiology's perspective, we will recommend to continue patient on his current medications. He may be able to be discharged home once cleared by primary we' ll make him a follow-up appointment in the office post discharge. DNP note has been reviewed, I agree with a documented findings and plan of care. Patient was seen and examined.
--- NOTE | 2018-02-11 13:31 | P.PN ---
Subjective Progress Note Date: 02/11/18 57-year-old male who presented to the emergency room with complaints of fever, lower left sided chest pain, and lethargy. Patient was evaluated in the emergency room with Dr. Romero. He is currently awaiting a bed assignment. The patient is lethargic. Patient's spouse is at the bedside and is relaying most of the history. She states that the patient has had a fever on and off for the last day or two. She reports that the patient has been "falling asleep all the time" over the past few days. She states last night he fell asleep watching TV which he never does and that concerned her. She reports the patient has been having difficulty ambulating. She states the patient went into the bathroom and a family member went to check on him because he was in the bathroom for almost an hour. It is unknown if the patient fell asleep in the bathroom or had a syncopal episode. The patient does report lower left sided chest pain that is worse with inspiration. He denies midsternal chest pain. The patient does report a cough over the last few days. Denies sputum production. 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 He has also had a myocardial infarction 2006 and 2007. His past surgical history includes bowel resection, cholecystectomy, coronary artery bypass graft, heart catheterization with multiple stents, hernia repair, and joint replacements. The patient was hospitalized in September 2017 for right upper lobe pneumonia with MRSA and sepsis. The patient was recently evaluated by Dr. Romero on an outpatient basis for erythema to his left lower extremity with a small round wound. It was cultured at the office and was positive for staph aureus. Acute abdominal series: Normal bowel gas pattern. No acute process visualized. Chest x-ray: Small amount of fluid is seen within the right minor fissure. No focal consolidation present. Laboratory data: WBC 9.3. Hemoglobin 9.6. Platelet count 253. Sodium 144. Potassium 4.8. BUN 38. Creatinine 1.50. GFR 50. Glucose 258. Troponin: 0.041, 0.039 Lactic acid: 3.5 BNP 578 Testing for influenza A/B was negative Urinalysis reveals: trace proteinuria, 2+ bilirubin. Negative for ketones, blood , nitrates or leukocyte esterase The patient was admitted to the hospital under the care of Dr. Romero. 02/06/2018 Patient seen and examined at the bedside on rounds with Dr. Romero. Patient remains lethargic, but improved since yesterday. Easily arousable to verbal stimulation. Patient will engage in conversation when asked. Patient is on 2L NC with oxygen saturations greater than 92%. Patient had decreased urine output yesterday evening. IV fluids were increased to 200cc/hr per Dr. Romero. Indwelling urinary catheter was placed for accurate I/O. Blood cultures are negative at the 24 hour solange. Urine culture is pending. Dr. Hardin is on consult. Patient is currently receiving Daptomycin and Zosyn. Patient is afebrile. Hypotensive has resolved and this morning his blood pressure is 155/ 81. His 9.5. Sodium 146. BUN 29. Creatinine 1.0 which has improved from 1.50 yesterday. 02/07/2018-02/10/2018: Notes per Dr. Romero 02/11/2018 Patient seen and examined at the bedside on rounds with Dr. Romero. Patient was transferred to ICU on 02/07/2018 secondary to increased lethargy and persistent fevers. Dr. Morton was consulted for ICU management. He remained on Bipap. He has been followed by Dr. Hardin and has been receiving antibiotics. He has since been transferred out of the ICU to the selective care unit. Urine cultures are negative. Blood cultures have all been negative. Genital culture revealed normal rachel. Echocardiogram revealed ejection fraction of around 35%. He received a dose of IV Solu-Medrol on 02/10/2018 for generalized joint pain and stiffness. He states that his pain has improved today. The patient also received a dose of albumin. He was started on Lasix 20 mg daily. His edema has improved. He is awake and alert. Conversing with providers. He is eating breakfast and tolerating well. He is on 2L NC with oxygen saturations greater than 92%. Heart rate is in the 60-70s. Telemetry reveals SR. He denies chest pain or pressure. Denies shortness of breath at rest. PT?OT are on consult. Patient states he was up in the chair twice yesterday and ambulated a few steps yesterday in his room. -Chest x-ray completed on 02/07/2018 revealed cardiomegaly with minimal subsegmental atelectasis right diaphragm. -Chest x-ray completed 02/08/2018 revealed increasing confluence of the right basilar opacity suspicious for developing pneumonia superimposed upon new mild pulmonary vascular congestion -Chest x-ray completed 02/09/2018 revealed improved aeration of the lung bases with mild persistent strand-like opacities and new left midlung opacity. Given a short-term interval improvement of the lung bases and morphology of the left midlung density findings most likely related to atelectasis or less likely pneumonia. -Chest x-ray completed 02/11/2018 revealed patchy density right lower lobe which may reflect developing infiltrate. Objective - Vital Signs Vital signs: Vital Signs Temp 97.2 F L 02/11/18 08:10 Pulse 65 02/11/18 08:10 Resp 18 02/11/18 08:10 BP 121/68 02/11/18 08:10 Pulse Ox 98 02/11/18 08:10 Intake & Output 02/10/18 02/11/18 02/11/18 18:59 06:59 18:59 Intake Total 870 Output Total 875 525 0 Balance -5 -525 0 Weight 117 kg Intake: IV 100 Meropenem 1 gm In Sodium 100 Chloride 0.9% 100 ml @ 100 mls/hr IVPB Q8HR [facility] Rx#:[id number] Intake, IV Titration 50 Amount Albumin Human 25% 50 ml 50 In Empty Bag 1 bag @ 100 mls/hr IVPB ONCE ONE Rx#: [id number] Oral 720 Output: Urine 875 525 Stool 0 0 Other: Voiding Method Urinal Urinal # Voids 0 1 # Bowel Movements 0 - Exam GENERAL: This is a 57-year-old male who is in no acute distress at the time of examination. Pleasant and cooperative. Conversing with providers. HEENT: Head is atraumatic, normocephalic. Pupils are equal, round, and reactive to light. Sclerae anicteric. Conjunctivae are clear. Mucus membranes of the mouth are moist. Neck is supple. RESPIRATORY: Lungs essentially clear throughout. No rales or wheezing auscultated. No use of accessory muscles. Patient maintaining oxygen saturation greater than 92% on 2L NC. No chest wall tenderness is noted on palpation or with deep breathing. CARDIOVASCULAR: Regular rate and rhythm. S1 and S2 noted. No systolic or diastolic murmur auscultated. No JVD noted. No S3 or S4 noted. GASTROINTESTINAL: No distention noted. Abdomen soft and round. Normal active bowel sounds auscultated x 4 quadrants. No pain or tenderness noted upon palpation. INTEGUMENTARY: Patient with old healing abrasion to left lower extremity. No drainage noted. No cyanosis. No jaundice. No rashes noted. EXTREMITIES: 1+ peripheral pulses. +1-2 lower bilateral lower extremity edema, improved. No calf tenderness noted. NEUROLOGIC: Cranial nerves II-XII intact. PSYCHIATRIC: Awake and alert. Oriented 3. Appropriate affect. - Labs CBC & Chem 7: 02/09/18 04:27 02/09/18 04:27 Labs: Abnormal Lab Results - Last 24 Hours (Table) 02/10/18 02/10/18 02/10/18 Range/Units 11:28 15:13 16:40 POC Glucose (mg/dL) 201 H 296 H (75-99) mg/dL Albumin 2.7 L (3.5-5.0) g/dL 02/10/18 02/11/18 Range/Units 21:02 05:57 POC Glucose (mg/dL) 335 H 284 H (75-99) mg/dL Albumin (3.5-5.0) g/dL Microbiology - Last 24 Hours (Table) 02/05/18 03:25 Blood Culture - Final Blood No Growth after 144 hours 02/06/18 17:25 Blood Culture - Preliminary Blood No Growth after 96 hours 02/07/18 14:47 Blood Culture - Preliminary Blood No Growth after 72 hours 02/07/18 12:52 Blood Culture - Preliminary Blood No Growth after 72 hours Assessment and Plan Plan: ASSESSMENT: Bilateral lower lobe pneumonia, pulmonary following Acute on chronic hypoxic and hypercapnic respiratory failure Sepsis with elevated lactic acid, lethargy, hypotension, and fever, present on admission, likely secondary to pneumonia, improving Mildly elevated troponins, secondary to infectious process Lower left-sided chest pain, likely pleuritic in nature and also due to recent fall, resolved New onset paroxysmal atrial fibrillation with RVR, currently in sinus rhythm Acute kidney injury, creatinine 1.50 on admission, baseline 0.8-1.0, resolved with IV hydration Diabetes mellitus, type II, hemoglobin A1c 8.8% Coronary artery disease with previous coronary artery bypass grafting and previous stent placement Hospitalization in September 2017 for right upper lobe pneumonia with MRSA and sepsis Previous pneumonias requiring thoracotomy and chest tube placement Previous cellulitis with MRSA Obstructive sleep apnea Chronic adrenal insufficiency, maintained on Cortef Hyperlipidemia Osteoarthritis with joint stiffness, improved with IV solu-medrol Hypothyroidism Obesity: BMI 35.8 Hypoalbuminemia PLAN: Dr. Hardin, infectious disease, on consult. Appreciate recommendations and input Antibiotic regimen per Dr. Hardin. Currently on daptomycin and meropenem Cardiology on consult. Appreciate recommendations and input Increase levemir to 26 units BID which is patients home dose Home meds as appropriate Monitor labs GI prophylaxis: Protonix 40 mg PO Daily DVT prophylaxis: Eliquis 5mg PO BID Monitor vital signs and address as appropriate Discharge planning: Patient will likely require [facility] at time of discharge. If so , requesting [facility]. Await updated PT/OT notes. Further recommendations pending patient's course Nurse practitioner note has been reviewed by physician. Signing provider agrees with the documented findings, assessment, and plan of care.
--- NOTE | 2018-02-11 13:54 | P.PN ---
Subjective Progress Note Date: 02/11/18 Principal diagnosis: Paroxysmal atrial fibrillation with rapid ventricular response, Altered mental status, acute on chronic hypoxic and hypercapnic history failure, severe degree of sleep disorder breathing and sleep apnea, acute COPD exacerbation, right lower lobe pneumonia, tarry artery disease, congestive heart failure with chronic systolic heart failure, chronic gout 02/11/2018, patient seen eval examined clinically has been overall remains stable on 2 L oxygen breathing comfortably still have component generalized anasarca medications are being adjusted his cuff congestion spiking fever Petrin has improved significantly labs reviewed medications reviewed, patient has been tolerating BiPAP machine each night and when necessary during the day fairly well, blood cultures so far have been negative, 02/10/2018, patient seen eval reexamined during the rounds clinically patient has been doing better on 2 L oxygen patient has use BiPAP and machine at nighttime with significant improvement and respiration as well as mental status tolerating by mouth well, patient has been started on anticoagulation for recurrent paroxysmal atrial fibrillation. Currently patient is on broad- spectrum antibiotics with daptomycin and Merrem IV service following culture results and reports are reviewed, blood culture so far has been negative, last chest x-ray performed revealed improve infiltrate however some new left midlung opacities noted will repeat another chest x-ray tomorrow 05/12/2018, patient seen eval evaluated examined during the rounds patient is breathing comfortably on supplemental oxygen has intermittent cough chest x-ray performed today reviewed there is improved aeration is seen some patchy infiltrate at the bases and left midlung field cannot be excluded, note is made of cardiovascular recommendation for recurrent paroxysmal atrial fibrillation of initiating on Eliquis and low-dose metoprolol 02/08/2018, patient seen eval examined in the ICU he is more awake and alert opens eyes follow simple command no obvious distress present breathing more comfortably he is off of BiPAP currently has been on supplemental oxygen with 3 L saturation are in mid 90s he is tolerating by mouth fairly well no choking or cough has been noted labs reviewed medications reviewed chest x-ray as well as arterial blood gas performed this morning reviewed as well 57-year-old male who was admitted into the hospital on February 05 with the altered mental status confusion and a spiking fever and was brought into the emergency department by the family member for above-mentioned complaint patient was initially admitted into the medical floor where due to significant hypoxia and worsening mental status was transferred to the ICU where I saw the patient patient initially was placed on the BiPAP of 10 and 5 subsequently adjusted to 12 and 8 with that patient tolerated very well his mental status significantly improved patient was more arousable at the time of my evaluation, no history of seizure activity or hemiparesis, does have spiking fever up to 102-103 at home, denies any bowel or bladder dysfunction except an episode of diarrhea, denies any chest pain or radiation of pain does have ongoing difficulty in breathing the, arterial blood gas were performed x-ray reviewed decision was done not to intubate but rather to adjust the BiPAP setting Review of the data revealed that earlier this year the patient was hospitalized for multifocal pneumonia and MRSA was isolated from his sputum. After hospitalization he had improvement in completed his course of oral trimethoprim sulfamethoxazole with good resolution. He has had difficulties in the past with diabetes mellitus type 2 with poor control, severe coronary artery disease with several myocardial infarctions and chronic polyneuropathy, also has a severe degree of sleep disorder breathing obstructive sleep apnea however he has been using his CPAP machine regularly,. He does have a known history of gout and psoriasis that has been very difficult to control over time but have been better as of late. Objective - Vital Signs Vital signs: Vital Signs Temp 98.4 F 02/11/18 11:37 Pulse 64 02/11/18 11:37 Resp 18 02/11/18 11:37 BP 116/76 02/11/18 11:37 Pulse Ox 96 02/11/18 11:37 Intake & Output 02/10/18 02/11/18 02/11/18 18:59 06:59 18:59 Intake Total 870 218 Output Total 875 525 500 Balance -5 -525 -282 Weight 117 kg Intake: IV 100 100 Meropenem 1 gm In Sodium 100 100 Chloride 0.9% 100 ml @ 100 mls/hr IVPB Q8HR [facility] Rx#:[id number] Intake, IV Titration 50 Amount Albumin Human 25% 50 ml 50 In Empty Bag 1 bag @ 100 mls/hr IVPB ONCE ONE Rx#: [id number] Oral 720 118 Output: Urine 875 525 500 Stool 0 0 Other: Voiding Method Urinal Urinal # Voids 0 1 # Bowel Movements 0 - Exam 57-year-old male who has nasal cannula in place, is awake and alert oriented 3 HEENT: Anicteric conjunctiva are pink and moist nasal mucosa grossly intact without significant lesions, there is no thrush. Neck: The neck is supple without significant lymphadenopathy or thyromegaly. Lungs: There is symmetrical bilateral air entry. There are a few basilar crackles and scattered expiratory wheeze but no bronchial sounds are noted. Heart: Regular rate and rhythm with an audible S1-S2, no S3 soft S4. There is no significant murmur click or rub, PMI was nondisplaced. Abdomen: Positive bowel sounds soft and appears nontender without palpable masses or organomegaly. There was no rigidity. Extremities: The upper and lower extremities have evidence of +2 generalized edema. The left lower extremity has an area of some mild erythema but no open ulceration at this time. The feet are warm to touch. Other than the erythema on the left leg. No significant skin lesions or open lesions his underlying psoriasis is under good control at this time. Neuro: The patient is awake and alert moving all 4 extremity no focal neurological deficit - Labs CBC & Chem 7: 02/09/18 04:27 02/09/18 04:27 Labs: Abnormal Lab Results - Last 24 Hours (Table) 02/10/18 02/10/18 02/10/18 Range/Units 15:13 16:40 21:02 POC Glucose (mg/dL) 296 H 335 H (75-99) mg/dL Albumin 2.7 L (3.5-5.0) g/dL 02/11/18 02/11/18 Range/Units 05:57 11:44 POC Glucose (mg/dL) 284 H 346 H (75-99) mg/dL Albumin (3.5-5.0) g/dL Microbiology - Last 24 Hours (Table) 02/05/18 03:25 Blood Culture - Final Blood No Growth after 144 hours 02/06/18 17:25 Blood Culture - Preliminary Blood No Growth after 96 hours 02/07/18 14:47 Blood Culture - Preliminary Blood No Growth after 72 hours 02/07/18 12:52 Blood Culture - Preliminary Blood No Growth after 72 hours Assessment and Plan Assessment: Altered mental status related to hypoxia and severe hypercapnia New left midlung field dense infiltrate and atelectasis versus pneumonia follow- up chest x-ray revealed patchy right lower lobe infiltratesignificant otherwise change has been seen Acute on chronic hypoxic and hypercapnic respirator failure Paroxysmal atrial fibrillation with rapid ventricular response Severe degree of sleep disorder breathing and sleep apnea Acute COPD exacerbation Purulent tracheobronchitis Bilateral lower lobe pneumonia right more than left Severe degree of coronary artery disease, chronic systolic heart failure Chronic microcytic anemia Electrolyte imbalance with severe hypomagnesemia Plan: BiPAP support pressure adjusted see orders for detail each night and when necessary during the day Continue broad-spectrum antibiotics Okay to maintain patient on Eliquis Continue home medications and supportive care Deep breathing exercises incentive spirometry Further recommendations pending plan of care as per clinical response of the patient patient has regain his mental status with adequate treatment with BiPAP Will follow clinical course closely reviewed follow-up chest x-ray Time with Patient: Greater than 30
[2018-02-11 16:55] LABS: Glucose,Whole Blood 255 mg/dL (75-99)
[2018-02-11] MEDS: MONTELUKAST 10 MG TAB PO SCH (20:57)
[2018-02-11] MEDS: amLODIPine 5 MG TAB PO SCH (20:57)
[2018-02-11] MEDS: DAPTOmycin 500 MG in SODIUM CHLORIDE 0.9% 50 ML IV SCH (20:57)
[2018-02-11] MEDS: LEVOTHYROXINE 50 MCG TAB PO SCH (20:57)
[2018-02-11] MEDS ORDERED: INSULIN DETEMIR 100 UNIT/ML 10 ML VIAL SQ SCH (21:00)
[2018-02-11 21:04] LABS: Glucose,Whole Blood 316 mg/dL (75-99)
[2018-02-11] MEDS: INSULIN DETEMIR 100 UNIT/ML 10 ML VIAL SQ SCH (21:14)
--- NOTE | 2018-02-11 23:05 | P.PN ---
Subjective Progress Note Date: 02/11/18 57-year-old male who is well-known to the infectious disease service because of his multiple bouts of sepsis. Earlier this year the patient was hospitalized for multifocal pneumonia and MRSA was isolated from his sputum. After hospitalization he had improvement in completed his course of oral trimethoprim sulfamethoxazole with good resolution. He has had difficulties in the past with diabetes mellitus type 2 with poor control, severe coronary artery disease with several myocardial infarctions and chronic polyneuropathy. He does have a known history of gout and psoriasis that has been very difficult to control over time but have been better as of late. He did have several admissions where he was having difficulties with lactic acidosis that was thought to be medication induced. The patient currently has BiPAP in place and is not conversational. History from the relates that he's been getting weak over the last few days. Since that before coming to Hospital he was on the toilet for more than an hour and then not sure if he had a syncopal event or not. Because he was so weak and ill he was brought to hospital. Apparently at home he did have bouts of nausea and emesis. This is not occurring at this time. It is not clear that he's had cough or sputum production. Patient's related that there was some pain in his chest before admission. 02/07/2018 reveals the patient to still be very short of breath, fevers however continue and most recently is 103.2. Patient however is much more awake and alert and recognizes me by name, feels weak and ill. 02/11/2018 patient is now considerably improved. He is less short of breath. His mentation has cleared. He is awake and alert and is conversational. He is back to his baseline oxygen needs utilizing CPAP at night. He is denying other significant new symptoms except when his fever he is aware that he was completely encephalopathic. Objective - Vital Signs Vital signs: Vital Signs Temp 97.7 F 02/11/18 16:45 Pulse 86 02/11/18 20:03 Resp 16 02/11/18 16:45 BP 91/68 02/11/18 16:45 Pulse Ox 92 L 02/11/18 16:45 Intake & Output 02/11/18 02/11/18 02/12/18 06:59 18:59 06:59 Intake Total 638 Output Total 525 500 250 Balance -525 138 -250 Weight 117 kg Intake: IV 100 Meropenem 1 gm In Sodium 100 Chloride 0.9% 100 ml @ 100 mls/hr IVPB Q8HR [facility] Rx#:[id number] Oral 538 Output: Urine 525 500 250 Stool 0 Other: Voiding Method Urinal Urinal # Voids 1 1 - Exam 57-year-old male who has BiPAP in place, is arousable and is able to state my name much more interactive than before. He has developed generalized edema that is worse than his last evaluation. HEENT: Anicteric conjunctiva are pink and moist nasal mucosa grossly intact without significant lesions, there is no thrush. Neck: The neck is supple without significant lymphadenopathy or thyromegaly. Lungs: There is symmetrical bilateral air entry. There are a few basilar crackles and scattered expiratory wheeze but no bronchial sounds are noted. He does not cooperate for egophony or dullness. Heart: Regular rate and rhythm with an audible S1-S2, no S3 soft S4. There is no significant murmur click or rub, PMI was nondisplaced. Abdomen: Positive bowel sounds soft and appears nontender without palpable masses or organomegaly. There was no rigidity. Extremities: The upper and lower extremities have evidence of generalized edema. The left lower extremity has an area of some mild erythema but no open ulceration at this time. The feet are warm to touch. Other than the erythema on the left leg. No significant skin lesions or open lesions his underlying psoriasis is under good control at this time. Neuro: The patient is awake alert or oriented to person place and time no new acute gross focal sensory motor deficits but did have significant generalized weakness which is starting to show some improvement - Labs CBC & Chem 7: 02/09/18 04:27 02/09/18 04:27 Labs: Abnormal Lab Results - Last 24 Hours (Table) 02/11/18 02/11/18 02/11/18 Range/Units 05:57 11:44 16:54 POC Glucose (mg/dL) 284 H 346 H 255 H (75-99) mg/dL 02/11/18 Range/Units 21:01 POC Glucose (mg/dL) 316 H (75-99) mg/dL Microbiology - Last 24 Hours (Table) 02/06/18 17:25 Blood Culture - Preliminary Blood No Growth after 120 hours 02/07/18 14:47 Blood Culture - Preliminary Blood No Growth after 96 hours 02/07/18 12:52 Blood Culture - Preliminary Blood No Growth after 96 hours 02/05/18 03:25 Blood Culture - Final Blood No Growth after 144 hours Laboratory Results WBC 9.6 k/uL (3.8-10.6) 02/09/18 04:27 RBC 3.87 m/uL (4.30-5.90) L 02/09/18 04:27 Hgb 8.4 gm/dL (13.0-17.5) L 02/09/18 04:27 Hct 29.6 % (39.0-53.0) L 02/09/18 04:27 MCV 76.4 fL (80.0-100.0) L 02/09/18 04:27 MCH 21.6 pg (25.0-35.0) L 02/09/18 04:27 MCHC 28.3 g/dL (31.0-37.0) L 02/09/18 04:27 RDW 19.4 % (11.5-15.5) H 02/09/18 04:27 Plt Count 236 k/uL (150-450) 02/09/18 04:27 Neutrophils % 84 % 02/09/18 04:27 Neutrophils % (Manual) 56 % 02/07/18 05:24 Band Neutrophils % 29 % 02/07/18 05:24 Lymphocytes % 6 % 02/09/18 04:27 Lymphocytes % (Manual) 11 % 02/07/18 05:24 Monocytes % 5 % 02/09/18 04:27 Monocytes % (Manual) 1 % 02/07/18 05:24 Eosinophils % 2 % 02/09/18 04:27 Eosinophils % (Manual) 2 % 02/07/18 05:24 Basophils % 0 % 02/09/18 04:27 Basophils % (Manual) 1 % 02/07/18 05:24 Neutrophils # 8.1 k/uL (1.3-7.7) H 02/09/18 04:27 Neutrophils # (Manual) 3.90 k/uL (1.3-7.7) 02/07/18 05:24 Lymphocytes # 0.6 k/uL (1.0-4.8) L 02/09/18 04:27 Lymphocytes # (Manual) 0.51 k/uL (1.0-4.8) L 02/07/18 05:24 Monocytes # 0.4 k/uL (0-1.0) 02/09/18 04:27 Monocytes # (Manual) 0.05 k/uL (0-1.0) 02/07/18 05:24 Eosinophils # 0.2 k/uL (0-0.7) 02/09/18 04:27 Eosinophils # (Manual) 0.09 k/uL (0-0.7) 02/07/18 05:24 Basophils # 0.0 k/uL (0-0.2) 02/09/18 04:27 Basophils # (Manual) 0.05 k/uL (0-0.2) 02/07/18 05:24 Nucleated RBCs 0 /100 WBC (0-0) 02/07/18 05:24 Manual Slide Review Performed 02/07/18 05:24 Large Platelets Present 02/06/18 05:16 Hypochromasia Marked 02/09/18 04:27 Anisocytosis Slight 02/09/18 04:27 Microcytosis Moderate 02/09/18 04:27 Ovalocytes Present 02/07/18 05:24 Sample Site lrad 02/08/18 06:05 ABG pH 7.40 (7.35-7.45) 02/08/18 06:05 ABG pCO2 47 mmHg (35-45) H 02/08/18 06:05 ABG pO2 78 mmHg (83-108) L 02/08/18 06:05 ABG HCO3 29 mmol/L (21-25) H 02/08/18 06:05 ABG Total CO2 30 mmol/L (19-24) H 02/08/18 06:05 ABG O2 Saturation 95.0 % (94-97) 02/08/18 06:05 ABG Base Excess 3.9 mmol/L 02/08/18 06:05 Wilson Test Yes 02/08/18 06:05 FiO2 40 % 02/08/18 06:05 Sodium 141 mmol/L (137-145) 02/09/18 04:27 Potassium 4.5 mmol/L (3.5-5.1) 02/09/18 04:27 Chloride 102 mmol/L (98-107) 02/09/18 04:27 Carbon Dioxide 27 mmol/L (22-30) 02/09/18 04:27 Anion Gap 12 mmol/L 02/09/18 04:27 BUN 30 mg/dL (9-20) H 02/09/18 04:27 Creatinine 0.86 mg/dL (0.66-1.25) 02/09/18 04:27 Est GFR (CKD-EPI)AfAm >90 (>60 ml/min/1.73 sqM) 02/09/18 04:27 Est GFR (CKD-EPI)NonAf >90 (>60 ml/min/1.73 sqM) 02/09/18 04:27 Glucose 108 mg/dL (74-99) H 02/09/18 04:27 POC Glucose (mg/dL) 316 mg/dL (75-99) H 02/11/18 21:01 POC Glu Certified Caregiver ID Shawna Arreaga 02/11/18 21:[address] Glu mg/dL 206 02/05/18 15:50 Hemoglobin A1c 8.8 % (4.0-6.0) H 02/05/18 15:50 Lactic Ac Sepsis Rflx Y 02/05/18 03:57 Plasma Lactic Acid Freddy 1.3 mmol/L (0.7-2.0) 02/05/18 07:12 Calcium 7.8 mg/dL (8.4-10.2) L 02/09/18 04:27 Phosphorus 3.6 mg/dL (2.5-4.5) 02/09/18 04:27 Magnesium 2.2 mg/dL (1.6-2.3) 02/09/18 04:27 Total Bilirubin 0.7 mg/dL (0.2-1.3) 02/09/18 04:27 AST 53 U/L (17-59) 02/09/18 04:27 ALT 54 U/L (21-72) 02/09/18 04:27 Alkaline Phosphatase 92 U/L (38-126) 02/09/18 04:27 Total Creatine Kinase 802 U/L (55-170) H 02/05/18 15:50 CK-MB (CK-2) 11.9 ng/mL (0.0-2.4) H* 02/05/18 15:50 CK-MB (CK-2) Rel Index 1.5 02/05/18 15:50 Troponin I 0.020 ng/mL (0.000-0.034) 02/05/18 15:50 NT-Pro-B Natriuret Pep 578 pg/mL 02/05/18 03:25 Total Protein 4.9 g/dL (6.3-8.2) L 02/09/18 04:27 Albumin 2.7 g/dL (3.5-5.0) L 02/10/18 15:13 Triglycerides 157 mg/dL (<150) H 02/06/18 05:16 Cholesterol 109 mg/dL (<200) 02/06/18 05:16 LDL Cholesterol, Calc 40 mg/dL (0-99) 02/06/18 05:16 HDL Cholesterol 38 mg/dL (40-60) L 02/06/18 05:16 Amylase 160 U/L (30-110) H 02/05/18 03:25 Lipase 112 U/L (23-300) 02/05/18 03:25 Procalcitonin 100.00 ng/mL (0.02-0.09) H 02/07/18 12:52 Urine Color Yellow 02/05/18 08:00 Urine Appearance Clear (Clear) 02/05/18 08:00 Urine pH 5.0 (5.0-8.0) 02/05/18 08:00 Ur Specific [place] 1.018 (1.001-1.035) 02/05/18 08:00 Urine Protein Trace (Negative) H 02/05/18 08:00 Urine Glucose (UA) Negative (Negative) 02/05/18 08:00 Urine Ketones Negative (Negative) 02/05/18 08:00 Urine Blood Negative (Negative) 02/05/18 08:00 Urine Nitrite Negative (Negative) 02/05/18 08:00 Urine Bilirubin 2+ (Negative) H 02/05/18 08:00 Urine Urobilinogen <2.0 mg/dL (<2.0) 02/05/18 08:00 Ur Leukocyte Esterase Negative (Negative) 02/05/18 08:00 Influenza Type A RNA Not Detected (Not Detectd) 02/05/18 04:15 Influenza Type B (PCR) Not Detected (Not Detectd) 02/05/18 04:15 Laboratory Results WBC 9.6 k/uL (3.8-10.6) 02/09/18 04:27 RBC 3.87 m/uL (4.30-5.90) L 02/09/18 04:27 Hgb 8.4 gm/dL (13.0-17.5) L 02/09/18 04:27 Hct 29.6 % (39.0-53.0) L 02/09/18 04:27 MCV 76.4 fL (80.0-100.0) L 02/09/18 04:27 MCH 21.6 pg (25.0-35.0) L 02/09/18 04:27 MCHC 28.3 g/dL (31.0-37.0) L 02/09/18 04:27 RDW 19.4 % (11.5-15.5) H 02/09/18 04:27 Plt Count 236 k/uL (150-450) 02/09/18 04:27 Neutrophils % 84 % 02/09/18 04:27 Neutrophils % (Manual) 56 % 02/07/18 05:24 Band Neutrophils % 29 % 02/07/18 05:24 Lymphocytes % 6 % 02/09/18 04:27 Lymphocytes % (Manual) 11 % 02/07/18 05:24 Monocytes % 5 % 02/09/18 04:27 Monocytes % (Manual) 1 % 02/07/18 05:24 Eosinophils % 2 % 02/09/18 04:27 Eosinophils % (Manual) 2 % 02/07/18 05:24 Basophils % 0 % 02/09/18 04:27 Basophils % (Manual) 1 % 02/07/18 05:24 Neutrophils # 8.1 k/uL (1.3-7.7) H 02/09/18 04:27 Neutrophils # (Manual) 3.90 k/uL (1.3-7.7) 02/07/18 05:24 Lymphocytes # 0.6 k/uL (1.0-4.8) L 02/09/18 04:27 Lymphocytes # (Manual) 0.51 k/uL (1.0-4.8) L 02/07/18 05:24 Monocytes # 0.4 k/uL (0-1.0) 02/09/18 04:27 Monocytes # (Manual) 0.05 k/uL (0-1.0) 02/07/18 05:24 Eosinophils # 0.2 k/uL (0-0.7) 02/09/18 04:27 Eosinophils # (Manual) 0.09 k/uL (0-0.7) 02/07/18 05:24 Basophils # 0.0 k/uL (0-0.2) 02/09/18 04:27 Basophils # (Manual) 0.05 k/uL (0-0.2) 02/07/18 05:24 Nucleated RBCs 0 /100 WBC (0-0) 02/07/18 05:24 Manual Slide Review Performed 02/07/18 05:24 Large Platelets Present 02/06/18 05:16 Hypochromasia Marked 02/09/18 04:27 Anisocytosis Slight 02/09/18 04:27 Microcytosis Moderate 02/09/18 04:27 Ovalocytes Present 02/07/18 05:24 Sample Site lrad 02/08/18 06:05 ABG pH 7.40 (7.35-7.45) 02/08/18 06:05 ABG pCO2 47 mmHg (35-45) H 02/08/18 06:05 ABG pO2 78 mmHg (83-108) L 02/08/18 06:05 ABG HCO3 29 mmol/L (21-25) H 02/08/18 06:05 ABG Total CO2 30 mmol/L (19-24) H 02/08/18 06:05 ABG O2 Saturation 95.0 % (94-97) 02/08/18 06:05 ABG Base Excess 3.9 mmol/L 02/08/18 06:05 [place] Test Yes 02/08/18 06:05 FiO2 40 % 02/08/18 06:05 Sodium 141 mmol/L (137-145) 02/09/18 04:27 Potassium 4.5 mmol/L (3.5-5.1) 02/09/18 04:27 Chloride 102 mmol/L (98-107) 02/09/18 04:27 Carbon Dioxide 27 mmol/L (22-30) 02/09/18 04:27 Anion Gap 12 mmol/L 02/09/18 04:27 BUN 30 mg/dL (9-20) H 02/09/18 04:27 Creatinine 0.86 mg/dL (0.66-1.25) 02/09/18 04:27 Est GFR (CKD-EPI)AfAm >90 (>60 ml/min/1.73 sqM) 02/09/18 04:27 Est GFR (CKD-EPI)NonAf >90 (>60 ml/min/1.73 sqM) 02/09/18 04:27 Glucose 108 mg/dL (74-99) H 02/09/18 04:27 POC Glucose (mg/dL) 316 mg/dL (75-99) H 02/11/18 21:01 POC Glu Certified Caregiver ID Shawna Arreaga 02/11/18 21:[address] Glu mg/dL 206 02/05/18 15:50 Hemoglobin A1c 8.8 % (4.0-6.0) H 02/05/18 15:50 Lactic Ac Sepsis Rflx Y 02/05/18 03:57 Plasma Lactic Acid Freddy 1.3 mmol/L (0.7-2.0) 02/05/18 07:12 Calcium 7.8 mg/dL (8.4-10.2) L 02/09/18 04:27 Phosphorus 3.6 mg/dL (2.5-4.5) 02/09/18 04:27 Magnesium 2.2 mg/dL (1.6-2.3) 02/09/18 04:27 Total Bilirubin 0.7 mg/dL (0.2-1.3) 02/09/18 04:27 AST 53 U/L (17-59) 02/09/18 04:27 ALT 54 U/L (21-72) 02/09/18 04:27 Alkaline Phosphatase 92 U/L (38-126) 02/09/18 04:27 Total Creatine Kinase 802 U/L (55-170) H 02/05/18 15:50 CK-MB (CK-2) 11.9 ng/mL (0.0-2.4) H* 02/05/18 15:50 CK-MB (CK-2) Rel Index 1.5 02/05/18 15:50 Troponin I 0.020 ng/mL (0.000-0.034) 02/05/18 15:50 NT-Pro-B Natriuret Pep 578 pg/mL 02/05/18 03:25 Total Protein 4.9 g/dL (6.3-8.2) L 02/09/18 04:27 Albumin 2.7 g/dL (3.5-5.0) L 02/10/18 15:13 Triglycerides 157 mg/dL (<150) H 02/06/18 05:16 Cholesterol 109 mg/dL (<200) 02/06/18 05:16 LDL Cholesterol, Calc 40 mg/dL (0-99) 02/06/18 05:16 HDL Cholesterol 38 mg/dL (40-60) L 02/06/18 05:16 Amylase 160 U/L (30-110) H 02/05/18 03:25 Lipase 112 U/L (23-300) 02/05/18 03:25 Procalcitonin 100.00 ng/mL (0.02-0.09) H 02/07/18 12:52 Urine Color Yellow 02/05/18 08:00 Urine Appearance Clear (Clear) 02/05/18 08:00 Urine pH 5.0 (5.0-8.0) 02/05/18 08:00 Ur Specific [place] 1.018 (1.001-1.035) 02/05/18 08:00 Urine Protein Trace (Negative) H 02/05/18 08:00 Urine Glucose (UA) Negative (Negative) 02/05/18 08:00 Urine Ketones Negative (Negative) 02/05/18 08:00 Urine Blood Negative (Negative) 02/05/18 08:00 Urine Nitrite Negative (Negative) 02/05/18 08:00 Urine Bilirubin 2+ (Negative) H 02/05/18 08:00 Urine Urobilinogen <2.0 mg/dL (<2.0) 02/05/18 08:00 Ur Leukocyte Esterase Negative (Negative) 02/05/18 08:00 Influenza Type A RNA Not Detected (Not Detectd) 02/05/18 04:15 Influenza Type B (PCR) Not Detected (Not Detectd) 02/05/18 04:15 Microbiology 02/06/18 17:25 Blood Blood Culture - Preliminary No Growth after 120 hours 02/07/18 14:47 Blood Blood Culture - Preliminary No Growth after 96 hours 02/07/18 12:52 Blood Blood Culture - Preliminary No Growth after 96 hours 02/05/18 03:25 Blood Blood Culture - Final No Growth after 144 hours 02/06/18 18:00 Penis Gram Stain - Final 02/06/18 18:00 Penis Genital Culture - Final 02/05/18 08:00 Urine,Catheterized Urine Culture - Final Assessment and Plan (1) Fever Narrative/Plan: 57-year-old male presents to Hospital with significant alteration of his mental status with increasing weakness and potentially a syncopal or presyncopal event. He had some nausea and emesis and wasn't feeling well for a few days. Her presentation patient is somnolent and requires BiPAP placement at admission. There is evidence of increased his creatinine from 1.0-1.5 showing acute renal failure. He has a history of significant underlying medical problems most recent admission was with evidence of pneumonia, current chest x-ray is clear. Patient appears to have sepsis source is not clear however he does have a history of MRSA infection in the past and antibiotic therapy will be adjusted to continue with the Zosyn, but without pneumonia Levaquin be discontinued and we'll add in daptomycin therapy for MRSA coverage, in that there is no distinct evidence of pneumonia at this time. Try to avoid vancomycin therapy with evidence of the acute renal failure. His ongoing difficulties with poor control of his diabetes is under by the A1c of 8.7. He was evidence of lactic acidosis at admission it is improved with hydration, he's had difficulty with lactic acidosis in the past that was medication induced. At this time appears to be more related to underlying infection given his high-grade fever at admission. Follow-up studies are normal. patient has had some worsening of his shortness of breath. And with this he is being moved to he intensive care unit. He has worsening respiratory failure.echocardiogram has been ordered as our follow-up blood cultures given . He has a history of prior significant illness in the past. 02/11/2018 the patient is definitely feeling better. His fever has resolved. He denies other significant symptoms. His breathing is about at baseline. Denies new cough or sputum production. We do have negative cultures. Patient likely be discharged to rehab in the near future OCS further rapid improvement of his underlying strength. He was like to go to home if at all possible. The patient's cultures are currently negative but he is definitely resolving his symptoms with current antibiotic therapy and supportive care. Likely finish 7 days of daptomycin at this discharge. Current Visit: Yes Status: Acute Code(s): R50.9 - FEVER, UNSPECIFIED SNOMED Code(s): 953704264 (2) Sepsis Current Visit: No Status: Acute Code(s): A41.9 - SEPSIS, UNSPECIFIED ORGANISM SNOMED Code(s): 63753636 (3) Altered mental status Current Visit: Yes Status: Acute Code(s): R41.82 - ALTERED MENTAL STATUS, UNSPECIFIED SNOMED Code(s): 555546265 (4) Acute renal failure Current Visit: Yes Status: Acute Code(s): N17.9 - ACUTE KIDNEY FAILURE, UNSPECIFIED SNOMED Code(s): 45108698
[2018-02-12 06:05] LABS: Glucose,Whole Blood 151 mg/dL (75-99)
[2018-02-12 06:31] LABS: Anisocytosis Slight; HCT 32.3 % (39.0-53.0); HGB 9.1 gm/dL (13.0-17.5); Hypochromasia Marked; MCH 21.8 pg (25.0-35.0); MCHC 28.1 g/dL (31.0-37.0); MCV 77.6 fL (80.0-100.0); Microcytosis Slight; Platelet Count 428 k/uL (150-450); RBC 4.16 m/uL (4.30-5.90); RDW 19.4 % (11.5-15.5); WBC 13.4 k/uL (3.8-10.6)
[2018-02-12] MEDS: INSULIN ASPART 100 UNIT/ML 1 ML 10 ML VIAL SQ SCH ×4 (06:40→21:04)
[2018-02-12] MEDS: PANTOPRAZOLE 40 MG TABLET PO SCH (06:41)
[2018-02-12 06:53] LABS: Anion Gap 12 mmol/L; Blood Urea Nitrogen 40 mg/dL (9-20); Calcium 8.6 mg/dL (8.4-10.2); Carbon Dioxide 31 mmol/L (22-30); Chloride 99 mmol/L (98-107); Glucose 140 mg/dL (74-99); Potassium 4.4 mmol/L (3.5-5.1); Sodium 142 mmol/L (137-145)
[2018-02-12] MEDS: APIXABAN 5 MG TAB PO SCH ×2 (07:49→21:04)
[2018-02-12] MEDS: DULoxetine HCL 30 MG CAPSULE.DR PO SCH ×2 (07:50→21:04)
[2018-02-12] MEDS: GABAPENTIN 400 MG CAP PO SCH ×4 (07:50→21:04)
[2018-02-12] MEDS: FUROSEMIDE 20 MG TAB PO SCH (07:50)
[2018-02-12] MEDS: HYDROCORTISONE 20 MG TAB PO SCH (07:51)
[2018-02-12] MEDS: LISINOPRIL 5 MG TAB PO SCH (07:51)
[2018-02-12] MEDS: METOPROLOL TARTRATE 25 MG TAB PO SCH ×2 (07:51→21:04)
[2018-02-12] MEDS: INSULIN DETEMIR 100 UNIT/ML 10 ML VIAL SQ SCH ×2 (07:52→21:04)
[2018-02-12] MEDS: IPRATROPIUM-ALBUTEROL 3 ML NEB INHALATION SCH ×4 (09:04→20:26)
--- NOTE | 2018-02-12 10:18 | P.PN ---
Subjective Progress Note Date: 02/12/18 57-year-old male who presented to the emergency room with complaints of fever, lower left sided chest pain, and lethargy. Patient was evaluated in the emergency room with Dr. Romero. He is currently awaiting a bed assignment. The patient is lethargic. Patient's spouse is at the bedside and is relaying most of the history. She states that the patient has had a fever on and off for the last day or two. She reports that the patient has been "falling asleep all the time" over the past few days. She states last night he fell asleep watching TV which he never does and that concerned her. She reports the patient has been having difficulty ambulating. She states the patient went into the bathroom and a family member went to check on him because he was in the bathroom for almost an hour. It is unknown if the patient fell asleep in the bathroom or had a syncopal episode. The patient does report lower left sided chest pain that is worse with inspiration. He denies midsternal chest pain. The patient does report a cough over the last few days. Denies sputum production. 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 He has also had a myocardial infarction 2006 and 2007. His past surgical history includes bowel resection, cholecystectomy, coronary artery bypass graft, heart catheterization with multiple stents, hernia repair, and joint replacements. The patient was hospitalized in September 2017 for right upper lobe pneumonia with MRSA and sepsis. The patient was recently evaluated by Dr. Romero on an outpatient basis for erythema to his left lower extremity with a small round wound. It was cultured at the office and was positive for staph aureus. Acute abdominal series: Normal bowel gas pattern. No acute process visualized. Chest x-ray: Small amount of fluid is seen within the right minor fissure. No focal consolidation present. Laboratory data: WBC 9.3. Hemoglobin 9.6. Platelet count 253. Sodium 144. Potassium 4.8. BUN 38. Creatinine 1.50. GFR 50. Glucose 258. Troponin: 0.041, 0.039 Lactic acid: 3.5 BNP 578 Testing for influenza A/B was negative Urinalysis reveals: trace proteinuria, 2+ bilirubin. Negative for ketones, blood , nitrates or leukocyte esterase The patient was admitted to the hospital under the care of Dr. Romero. 02/06/2018 Patient seen and examined at the bedside on rounds with Dr. Romero. Patient remains lethargic, but improved since yesterday. Easily arousable to verbal stimulation. Patient will engage in conversation when asked. Patient is on 2L NC with oxygen saturations greater than 92%. Patient had decreased urine output yesterday evening. IV fluids were increased to 200cc/hr per Dr. Romero. Indwelling urinary catheter was placed for accurate I/O. Blood cultures are negative at the 24 hour solange. Urine culture is pending. Dr. Hardin is on consult. Patient is currently receiving Daptomycin and Zosyn. Patient is afebrile. Hypotensive has resolved and this morning his blood pressure is 155/ 81. His 9.5. Sodium 146. BUN 29. Creatinine 1.0 which has improved from 1.50 yesterday. 02/07/2018-02/10/2018: Notes per Dr. Romero 02/11/2018 Patient seen and examined at the bedside on rounds with Dr. Romero. Patient was transferred to ICU on 02/07/2018 secondary to increased lethargy and persistent fevers. Dr. Morton was consulted for ICU management. He remained on Bipap. He has been followed by Dr. Hardin and has been receiving antibiotics. He has since been transferred out of the ICU to the selective care unit. Urine cultures are negative. Blood cultures have all been negative. Genital culture revealed normal rachel. Echocardiogram revealed ejection fraction of around 35%. He received a dose of IV Solu-Medrol on 02/10/2018 for generalized joint pain and stiffness. He states that his pain has improved today. The patient also received a dose of albumin. He was started on Lasix 20 mg daily. His edema has improved. He is awake and alert. Conversing with providers. He is eating breakfast and tolerating well. He is on 2L NC with oxygen saturations greater than 92%. Heart rate is in the 60-70s. Telemetry reveals SR. He denies chest pain or pressure. Denies shortness of breath at rest. PT?OT are on consult. Patient states he was up in the chair twice yesterday and ambulated a few steps yesterday in his room. -Chest x-ray completed on 02/07/2018 revealed cardiomegaly with minimal subsegmental atelectasis right diaphragm. -Chest x-ray completed 02/08/2018 revealed increasing confluence of the right basilar opacity suspicious for developing pneumonia superimposed upon new mild pulmonary vascular congestion -Chest x-ray completed 02/09/2018 revealed improved aeration of the lung bases with mild persistent strand-like opacities and new left midlung opacity. Given a short-term interval improvement of the lung bases and morphology of the left midlung density findings most likely related to atelectasis or less likely pneumonia. -Chest x-ray completed 02/11/2018 revealed patchy density right lower lobe which may reflect developing infiltrate. 02/12/2018 Patient seen and examined at the bedside on rounds with Dr. Romero. Patient is awake and alert. Eating breakfast. Sitting at the side of the bed. Patient states he is feeling well this morning. He states he worked with PT/OT yesterday and has been walking in his room with a walker. Dr. Hardin recommends Daptomycin for 7 days at the time of discharge. Patient states he does not want to go to [facility]. He is requesting to go home with home care. OT notes from yesterday recommends [facility]. No updated notes from PT regarding discharge placement recommendations. Case management to discuss [facility] versus home with home care with the patient and his spouse. Objective - Vital Signs Vital signs: Vital Signs Temp 97.2 F L 02/12/18 07:57 Pulse 76 02/12/18 09:17 Resp 18 02/12/18 08:00 BP 114/67 02/12/18 07:57 Pulse Ox 98 02/12/18 07:57 Intake & Output 02/11/18 02/12/18 02/12/18 18:59 06:59 18:59 Intake Total 638 Output Total 500 775 0 Balance 138 -775 0 Weight 124 kg Intake: IV 100 Meropenem 1 gm In Sodium 100 Chloride 0.9% 100 ml @ 100 mls/hr IVPB Q8HR [facility] Rx#:[id number] Oral 538 Output: Urine 500 775 Stool 0 0 Other: Voiding Method Urinal Urinal # Voids 2 - Exam GENERAL: This is a 57-year-old male who is in no acute distress at the time of examination. Pleasant and cooperative. Conversing with providers. HEENT: Head is atraumatic, normocephalic. Pupils are equal, round, and reactive to light. Sclerae anicteric. Conjunctivae are clear. Mucus membranes of the mouth are moist. Neck is supple. RESPIRATORY: Lungs essentially clear throughout with some scattered rhonchi. No rales or wheezing auscultated. No use of accessory muscles. Patient maintaining oxygen saturation greater than 92%. No chest wall tenderness is noted on palpation or with deep breathing. CARDIOVASCULAR: Regular rate and rhythm. S1 and S2 noted. No systolic or diastolic murmur auscultated. No JVD noted. No S3 or S4 noted. GASTROINTESTINAL: No distention noted. Abdomen soft and round. Normal active bowel sounds auscultated x 4 quadrants. No pain or tenderness noted upon palpation. INTEGUMENTARY: Patient with old healing abrasion to left lower extremity. No drainage noted. No cyanosis. No jaundice. No rashes noted. EXTREMITIES: 1+ peripheral pulses. +1-2 lower bilateral lower extremity edema, improved. No calf tenderness noted. NEUROLOGIC: Cranial nerves II-XII intact. PSYCHIATRIC: Awake and alert. Oriented 3. Appropriate affect. - Labs CBC & Chem 7: 02/12/18 06:00 02/12/18 06:00 Labs: Abnormal Lab Results - Last 24 Hours (Table) 02/11/18 02/11/18 02/11/18 Range/Units 11:44 16:54 21:01 WBC (3.8-10.6) k/uL RBC (4.30-5.90) m/uL Hgb (13.0-17.5) gm/dL Hct (39.0-53.0) % MCV (80.0-100.0) fL MCH (25.0-35.0) pg MCHC (31.0-37.0) g/dL RDW (11.5-15.5) % Carbon Dioxide (22-30) mmol/L BUN (9-20) mg/dL Glucose (74-99) mg/dL POC Glucose (mg/dL) 346 H 255 H 316 H (75-99) mg/dL 02/12/18 02/12/18 02/12/18 Range/Units 06:00 06:00 06:03 WBC 13.4 H (3.8-10.6) k/uL RBC 4.16 L (4.30-5.90) m/uL Hgb 9.1 L (13.0-17.5) gm/dL Hct 32.3 L (39.0-53.0) % MCV 77.6 L (80.0-100.0) fL MCH 21.8 L (25.0-35.0) pg MCHC 28.1 L (31.0-37.0) g/dL RDW 19.4 H (11.5-15.5) % Carbon Dioxide 31 H (22-30) mmol/L BUN 40 H (9-20) mg/dL Glucose 140 H (74-99) mg/dL POC Glucose (mg/dL) 151 H (75-99) mg/dL Microbiology - Last 24 Hours (Table) 02/06/18 17:25 Blood Culture - Preliminary Blood No Growth after 120 hours 02/07/18 14:47 Blood Culture - Preliminary Blood No Growth after 96 hours 02/07/18 12:52 Blood Culture - Preliminary Blood No Growth after 96 hours Assessment and Plan Plan: ASSESSMENT: Bilateral lower lobe pneumonia, pulmonary following Acute on chronic hypoxic and hypercapnic respiratory failure Sepsis with elevated lactic acid, lethargy, hypotension, and fever, present on admission, likely secondary to pneumonia, improving Mildly elevated troponins, secondary to infectious process Lower left-sided chest pain, likely pleuritic in nature and also due to recent fall, resolved New onset paroxysmal atrial fibrillation with RVR, currently in sinus rhythm Acute kidney injury, creatinine 1.50 on admission, baseline 0.8-1.0, resolved with IV hydration Diabetes mellitus, type II, hemoglobin A1c 8.8% Coronary artery disease with previous coronary artery bypass grafting and previous stent placement Hospitalization in September 2017 for right upper lobe pneumonia with MRSA and sepsis Previous pneumonias requiring thoracotomy and chest tube placement Previous cellulitis with MRSA Obstructive sleep apnea Chronic adrenal insufficiency, maintained on Cortef Hyperlipidemia Osteoarthritis with joint stiffness, improved with IV solu-medrol Hypothyroidism Obesity: BMI 35.8 Hypoalbuminemia PLAN: Dr. Hardin, infectious disease, on consult. Appreciate recommendations and input Antibiotic regimen per Dr. Hardin. Currently on daptomycin and meropenem Dr. Hardin recommends 7 days of Daptomycin at the time of discharge Will order midline IV insertion Cardiology on consult. Appreciate recommendations and input Home meds as appropriate Monitor labs GI prophylaxis: Protonix 40 mg PO Daily DVT prophylaxis: Eliquis 5mg PO BID Monitor vital signs and address as appropriate Continue PT OT Discharge planning: [facility] versus home with home care. Patient and his to discuss discharge plan. application support manager to update [facility]. Further recommendations pending patient's course Anticipate discharge within the next 24 hours Nurse practitioner note has been reviewed by physician. Signing provider agrees with the documented findings, assessment, and plan of care.
--- NOTE | 2018-02-12 10:32 | P.PN ---
Subjective Progress Note Date: 02/12/18 Principal diagnosis: Paroxysmal atrial fibrillation with rapid ventricular response, Altered mental status, acute on chronic hypoxic and hypercapnic history failure, severe degree of sleep disorder breathing and sleep apnea, acute COPD exacerbation, right lower lobe pneumonia, tarry artery disease, congestive heart failure with chronic systolic heart failure, chronic gout 02/12/2018, patient seen eval reexamined during the rounds is still have intermittent episode of shortness of breath however spiking fever Petrin has improved significantly, patient is status post PICC line in the right upper extremity earlier this morning for antibiotics on outpatient basis, patient continued use BiPAP machine was seems to be improving mental status as well as overall general breathing, 02/11/2018, patient seen eval examined clinically has been overall remains stable on 2 L oxygen breathing comfortably still have component generalized anasarca medications are being adjusted his cuff congestion spiking fever Petrin has improved significantly labs reviewed medications reviewed, patient has been tolerating BiPAP machine each night and when necessary during the day fairly well, blood cultures so far have been negative, 02/10/2018, patient seen eval reexamined during the rounds clinically patient has been doing better on 2 L oxygen patient has use BiPAP and machine at nighttime with significant improvement and respiration as well as mental status tolerating by mouth well, patient has been started on anticoagulation for recurrent paroxysmal atrial fibrillation. Currently patient is on broad- spectrum antibiotics with daptomycin and Merrem IV service following culture results and reports are reviewed, blood culture so far has been negative, last chest x-ray performed revealed improve infiltrate however some new left midlung opacities noted will repeat another chest x-ray tomorrow 05/12/2018, patient seen eval evaluated examined during the rounds patient is breathing comfortably on supplemental oxygen has intermittent cough chest x-ray performed today reviewed there is improved aeration is seen some patchy infiltrate at the bases and left midlung field cannot be excluded, note is made of cardiovascular recommendation for recurrent paroxysmal atrial fibrillation of initiating on Eliquis and low-dose metoprolol 02/08/2018, patient seen eval examined in the ICU he is more awake and alert opens eyes follow simple command no obvious distress present breathing more comfortably he is off of BiPAP currently has been on supplemental oxygen with 3 L saturation are in mid 90s he is tolerating by mouth fairly well no choking or cough has been noted labs reviewed medications reviewed chest x-ray as well as arterial blood gas performed this morning reviewed as well 57-year-old male who was admitted into the hospital on February 05 with the altered mental status confusion and a spiking fever and was brought into the emergency department by the family member for above-mentioned complaint patient was initially admitted into the medical floor where due to significant hypoxia and worsening mental status was transferred to the ICU where I saw the patient patient initially was placed on the BiPAP of 10 and 5 subsequently adjusted to 12 and 8 with that patient tolerated very well his mental status significantly improved patient was more arousable at the time of my evaluation, no history of seizure activity or hemiparesis, does have spiking fever up to 102-103 at home, denies any bowel or bladder dysfunction except an episode of diarrhea, denies any chest pain or radiation of pain does have ongoing difficulty in breathing the, arterial blood gas were performed x-ray reviewed decision was done not to intubate but rather to adjust the BiPAP setting Review of the data revealed that earlier this year the patient was hospitalized for multifocal pneumonia and MRSA was isolated from his sputum. After hospitalization he had improvement in completed his course of oral trimethoprim sulfamethoxazole with good resolution. He has had difficulties in the past with diabetes mellitus type 2 with poor control, severe coronary artery disease with several myocardial infarctions and chronic polyneuropathy, also has a severe degree of sleep disorder breathing obstructive sleep apnea however he has been using his CPAP machine regularly,. He does have a known history of gout and psoriasis that has been very difficult to control over time but have been better as of late. Objective - Vital Signs Vital signs: Vital Signs Temp 97.2 F L 02/12/18 07:57 Pulse 76 02/12/18 09:17 Resp 18 02/12/18 08:00 BP 114/67 02/12/18 07:57 Pulse Ox 98 02/12/18 07:57 Intake & Output 02/11/18 02/12/18 02/12/18 18:59 06:59 18:59 Intake Total 638 Output Total 500 775 0 Balance 138 -775 0 Weight 124 kg Intake: IV 100 Meropenem 1 gm In Sodium 100 Chloride 0.9% 100 ml @ 100 mls/hr IVPB Q8HR [facility] Rx#:[id number] Oral 538 Output: Urine 500 775 Stool 0 0 Other: Voiding Method Urinal Urinal # Voids 2 - Exam 57-year-old male who has nasal cannula in place, is awake and alert oriented 3 HEENT: Anicteric conjunctiva are pink and moist nasal mucosa grossly intact without significant lesions, there is no thrush. Neck: The neck is supple without significant lymphadenopathy or thyromegaly. Lungs: There is symmetrical bilateral air entry. There are a few basilar crackles and scattered expiratory wheeze but no bronchial sounds are noted. Heart: Regular rate and rhythm with an audible S1-S2, no S3 soft S4. There is no significant murmur click or rub, PMI was nondisplaced. Abdomen: Positive bowel sounds soft and appears nontender without palpable masses or organomegaly. There was no rigidity. Extremities: The lower extremities have evidence of +2 generalized edema. The left lower extremity has an area of some mild erythema but no open ulceration at this time. The feet are warm to touch. Right upper extremity PICC line at antecubital area Other than the erythema on the left leg. No significant skin lesions or open lesions his underlying psoriasis is under good control at this time. Neuro: The patient is awake and alert moving all 4 extremity no focal neurological deficit - Labs CBC & Chem 7: 02/12/18 06:00 02/12/18 06:00 Labs: Abnormal Lab Results - Last 24 Hours (Table) 02/11/18 02/11/18 02/11/18 Range/Units 11:44 16:54 21:01 WBC (3.8-10.6) k/uL RBC (4.30-5.90) m/uL Hgb (13.0-17.5) gm/dL Hct (39.0-53.0) % MCV (80.0-100.0) fL MCH (25.0-35.0) pg MCHC (31.0-37.0) g/dL RDW (11.5-15.5) % Carbon Dioxide (22-30) mmol/L BUN (9-20) mg/dL Glucose (74-99) mg/dL POC Glucose (mg/dL) 346 H 255 H 316 H (75-99) mg/dL 02/12/18 02/12/18 02/12/18 Range/Units 06:00 06:00 06:03 WBC 13.4 H (3.8-10.6) k/uL RBC 4.16 L (4.30-5.90) m/uL Hgb 9.1 L (13.0-17.5) gm/dL Hct 32.3 L (39.0-53.0) % MCV 77.6 L (80.0-100.0) fL MCH 21.8 L (25.0-35.0) pg MCHC 28.1 L (31.0-37.0) g/dL RDW 19.4 H (11.5-15.5) % Carbon Dioxide 31 H (22-30) mmol/L BUN 40 H (9-20) mg/dL Glucose 140 H (74-99) mg/dL POC Glucose (mg/dL) 151 H (75-99) mg/dL Microbiology - Last 24 Hours (Table) 02/06/18 17:25 Blood Culture - Preliminary Blood No Growth after 120 hours 02/07/18 14:47 Blood Culture - Preliminary Blood No Growth after 96 hours 02/07/18 12:52 Blood Culture - Preliminary Blood No Growth after 96 hours Assessment and Plan Assessment: Altered mental status related to hypoxia and severe hypercapnia New left midlung field dense infiltrate and atelectasis versus pneumonia follow- up chest x-ray revealed patchy right lower lobe infiltratesignificant otherwise change has been seen, patient has been tolerating antibiotics well Acute on chronic hypoxic and hypercapnic respirator failure Paroxysmal atrial fibrillation with rapid ventricular response Severe degree of sleep disorder breathing and sleep apnea Acute COPD exacerbation Purulent tracheobronchitis Bilateral lower lobe pneumonia right more than left Severe degree of coronary artery disease, chronic systolic heart failure Chronic microcytic anemia Electrolyte imbalance with severe hypomagnesemia Plan: BiPAP support pressure adjusted see orders for detail each night and when necessary during the day Continue broad-spectrum antibiotics Okay to maintain patient on Eliquis Continue home medications and supportive care Deep breathing exercises incentive spirometry Further recommendations pending plan of care as per clinical response of the patient patient has regain his mental status with adequate treatment with BiPAP Will follow clinical course closely reviewed follow-up chest x-ray Time with Patient: Greater than 30
[2018-02-12 10:38] VITALS: BMI 45.5
[2018-02-12] MEDS: MEROPENEM 1 GM in SODIUM CHLORIDE 0.9% 100 ML IVPB SCH ×3 (11:03→23:19)
[2018-02-12] MEDS: HYDROcodone/APAP 10-325MG 1 EACH TAB PO PRN ×2 (12:02→23:18)
[2018-02-12 12:18] LABS: Glucose,Whole Blood 122 mg/dL (75-99)
[2018-02-12] MEDS ORDERED: ACETAMINOPHEN TAB 500 MG TAB PO PRN (15:31)
[2018-02-12 16:57] LABS: Glucose,Whole Blood 149 mg/dL (75-99)
[2018-02-12 20:51] LABS: Glucose,Whole Blood 206 mg/dL (75-99)
[2018-02-12] MEDS: MONTELUKAST 10 MG TAB PO SCH (21:04)
[2018-02-12] MEDS: DAPTOmycin 500 MG in SODIUM CHLORIDE 0.9% 50 ML IV SCH (21:04)
[2018-02-12] MEDS: LEVOTHYROXINE 50 MCG TAB PO SCH (21:04)
[2018-02-12] MEDS: amLODIPine 5 MG TAB PO SCH (21:05)
--- NOTE | 2018-02-12 22:18 | P.PN ---
Subjective Progress Note Date: 02/12/18 57-year-old male who is well-known to the infectious disease service because of his multiple bouts of sepsis. Earlier this year the patient was hospitalized for multifocal pneumonia and MRSA was isolated from his sputum. After hospitalization he had improvement in completed his course of oral trimethoprim sulfamethoxazole with good resolution. He has had difficulties in the past with diabetes mellitus type 2 with poor control, severe coronary artery disease with several myocardial infarctions and chronic polyneuropathy. He does have a known history of gout and psoriasis that has been very difficult to control over time but have been better as of late. He did have several admissions where he was having difficulties with lactic acidosis that was thought to be medication induced. The patient currently has BiPAP in place and is not conversational. History from the relates that he's been getting weak over the last few days. Since that before coming to Hospital he was on the toilet for more than an hour and then not sure if he had a syncopal event or not. Because he was so weak and ill he was brought to hospital. Apparently at home he did have bouts of nausea and emesis. This is not occurring at this time. It is not clear that he's had cough or sputum production. Patient's related that there was some pain in his chest before admission. 02/07/2018 reveals the patient to still be very short of breath, fevers however continue and most recently is 103.2. Patient however is much more awake and alert and recognizes me by name, feels weak and ill. 02/11/2018 patient is now considerably improved. He is less short of breath. His mentation has cleared. He is awake and alert and is conversational. He is back to his baseline oxygen needs utilizing CPAP at night. He is denying other significant new symptoms except when his fever he is aware that he was completely encephalopathic. 02/12/2018 patient has further improvement. His is present today. With his improvement in function and strength he will likely be going home rather than to rehab. The patient's is confident that he'll do okay. She has done home IV antibiotic therapy in the past and has no concerns. The patient's mentation is back to his baseline and she is no longer is worried as she was. We described that he had underlying infection with his high fever as well as the significant elevated CO2 from his lack of use of his BiPAP. Objective - Vital Signs Vital signs: Vital Signs Temp 98.3 F 02/12/18 20:00 Pulse 76 02/12/18 20:38 Resp 18 02/12/18 20:00 BP 106/56 02/12/18 20:00 Pulse Ox 97 02/12/18 20:00 Intake & Output 02/12/18 02/12/18 02/13/18 06:59 18:59 06:59 Intake Total 150 Output Total 775 0 Balance -775 150 Weight 124 kg 124 kg Intake: Oral 150 Output: Urine 775 Stool 0 Other: Voiding Method Urinal Urinal # Voids 2 - Exam 57-year-old male who has BiPAP in place, is arousable and is able to state my name much more interactive than before. He has developed generalized edema that is worse than his last evaluation. HEENT: Anicteric conjunctiva are pink and moist nasal mucosa grossly intact without significant lesions, there is no thrush. Neck: The neck is supple without significant lymphadenopathy or thyromegaly. Lungs: There is symmetrical bilateral air entry. There are a few basilar crackles and scattered expiratory wheeze but no bronchial sounds are noted. He does not cooperate for egophony or dullness. Heart: Regular rate and rhythm with an audible S1-S2, no S3 soft S4. There is no significant murmur click or rub, PMI was nondisplaced. Abdomen: Positive bowel sounds soft and appears nontender without palpable masses or organomegaly. There was no rigidity. Extremities: The upper and lower extremities have evidence of generalized edema. The left lower extremity has an area of some mild erythema but no open ulceration at this time. The feet are warm to touch. Other than the erythema on the left leg. No significant skin lesions or open lesions his underlying psoriasis is under good control at this time. Neuro: The patient is awake alert or oriented to person place and time no new acute gross focal sensory motor deficits but did have significant generalized weakness which is starting to show some improvement - Labs CBC & Chem 7: 02/12/18 06:00 02/12/18 06:00 Labs: Abnormal Lab Results - Last 24 Hours (Table) 02/12/18 02/12/18 02/12/18 Range/Units 06:00 06:00 06:03 WBC 13.4 H (3.8-10.6) k/uL RBC 4.16 L (4.30-5.90) m/uL Hgb 9.1 L (13.0-17.5) gm/dL Hct 32.3 L (39.0-53.0) % MCV 77.6 L (80.0-100.0) fL MCH 21.8 L (25.0-35.0) pg MCHC 28.1 L (31.0-37.0) g/dL RDW 19.4 H (11.5-15.5) % Carbon Dioxide 31 H (22-30) mmol/L BUN 40 H (9-20) mg/dL Glucose 140 H (74-99) mg/dL POC Glucose (mg/dL) 151 H (75-99) mg/dL 02/12/18 02/12/18 02/12/18 Range/Units 11:56 16:46 20:50 WBC (3.8-10.6) k/uL RBC (4.30-5.90) m/uL Hgb (13.0-17.5) gm/dL Hct (39.0-53.0) % MCV (80.0-100.0) fL MCH (25.0-35.0) pg MCHC (31.0-37.0) g/dL RDW (11.5-15.5) % Carbon Dioxide (22-30) mmol/L BUN (9-20) mg/dL Glucose (74-99) mg/dL POC Glucose (mg/dL) 122 H 149 H 206 H (75-99) mg/dL Microbiology - Last 24 Hours (Table) 02/12/18 20:50 Sputum Culture - Preliminary Sputum 02/06/18 17:25 Blood Culture - Final Blood No Growth after 144 hours 02/07/18 14:47 Blood Culture - Preliminary Blood No Growth after 120 hours 02/07/18 12:52 Blood Culture - Preliminary Blood No Growth after 120 hours Laboratory Results WBC 13.4 k/uL (3.8-10.6) H 02/12/18 06:00 RBC 4.16 m/uL (4.30-5.90) L 02/12/18 06:00 Hgb 9.1 gm/dL (13.0-17.5) L 02/12/18 06:00 Hct 32.3 % (39.0-53.0) L 02/12/18 06:00 MCV 77.6 fL (80.0-100.0) L 02/12/18 06:00 MCH 21.8 pg (25.0-35.0) L 02/12/18 06:00 MCHC 28.1 g/dL (31.0-37.0) L 02/12/18 06:00 RDW 19.4 % (11.5-15.5) H 02/12/18 06:00 Plt Count 428 k/uL (150-450) 02/12/18 06:00 Neutrophils % 84 % 02/09/18 04:27 Neutrophils % (Manual) 56 % 02/07/18 05:24 Band Neutrophils % 29 % 02/07/18 05:24 Lymphocytes % 6 % 02/09/18 04:27 Lymphocytes % (Manual) 11 % 02/07/18 05:24 Monocytes % 5 % 02/09/18 04:27 Monocytes % (Manual) 1 % 02/07/18 05:24 Eosinophils % 2 % 02/09/18 04:27 Eosinophils % (Manual) 2 % 02/07/18 05:24 Basophils % 0 % 02/09/18 04:27 Basophils % (Manual) 1 % 02/07/18 05:24 Neutrophils # 8.1 k/uL (1.3-7.7) H 02/09/18 04:27 Neutrophils # (Manual) 3.90 k/uL (1.3-7.7) 02/07/18 05:24 Lymphocytes # 0.6 k/uL (1.0-4.8) L 02/09/18 04:27 Lymphocytes # (Manual) 0.51 k/uL (1.0-4.8) L 02/07/18 05:24 Monocytes # 0.4 k/uL (0-1.0) 02/09/18 04:27 Monocytes # (Manual) 0.05 k/uL (0-1.0) 02/07/18 05:24 Eosinophils # 0.2 k/uL (0-0.7) 02/09/18 04:27 Eosinophils # (Manual) 0.09 k/uL (0-0.7) 02/07/18 05:24 Basophils # 0.0 k/uL (0-0.2) 02/09/18 04:27 Basophils # (Manual) 0.05 k/uL (0-0.2) 02/07/18 05:24 Nucleated RBCs 0 /100 WBC (0-0) 02/07/18 05:24 Manual Slide Review Performed 02/07/18 05:24 Large Platelets Present 02/06/18 05:16 Hypochromasia Marked 02/12/18 06:00 Anisocytosis Slight 02/12/18 06:00 Microcytosis Slight 02/12/18 06:00 Ovalocytes Present 02/07/18 05:24 Sample Site lrad 02/08/18 06:05 ABG pH 7.40 (7.35-7.45) 02/08/18 06:05 ABG pCO2 47 mmHg (35-45) H 02/08/18 06:05 ABG pO2 78 mmHg (83-108) L 02/08/18 06:05 ABG HCO3 29 mmol/L (21-25) H 02/08/18 06:05 ABG Total CO2 30 mmol/L (19-24) H 02/08/18 06:05 ABG O2 Saturation 95.0 % (94-97) 02/08/18 06:05 ABG Base Excess 3.9 mmol/L 02/08/18 06:05 Wilson Test Yes 02/08/18 06:05 FiO2 40 % 02/08/18 06:05 Sodium 142 mmol/L (137-145) 02/12/18 06:00 Potassium 4.4 mmol/L (3.5-5.1) 02/12/18 06:00 Chloride 99 mmol/L (98-107) 02/12/18 06:00 Carbon Dioxide 31 mmol/L (22-30) H 02/12/18 06:00 Anion Gap 12 mmol/L 02/12/18 06:00 BUN 40 mg/dL (9-20) H 02/12/18 06:00 Creatinine 0.89 mg/dL (0.66-1.25) 02/12/18 06:00 Est GFR (CKD-EPI)AfAm >90 (>60 ml/min/1.73 sqM) 02/12/18 06:00 Est GFR (CKD-EPI)NonAf >90 (>60 ml/min/1.73 sqM) 02/12/18 06:00 Glucose 140 mg/dL (74-99) H 02/12/18 06:00 POC Glucose (mg/dL) 206 mg/dL (75-99) H 02/12/18 20:50 POC Glu Tester Equipment ID [id number] Vang 02/12/18 20:[address] Glu mg/dL 206 02/05/18 15:50 Hemoglobin A1c 8.8 % (4.0-6.0) H 02/05/18 15:50 Lactic Ac Sepsis Rflx Y 02/05/18 03:57 Plasma Lactic Acid Freddy 1.3 mmol/L (0.7-2.0) 02/05/18 07:12 Calcium 8.6 mg/dL (8.4-10.2) 02/12/18 06:00 Phosphorus 3.6 mg/dL (2.5-4.5) 02/09/18 04:27 Magnesium 2.2 mg/dL (1.6-2.3) 02/09/18 04:27 Total Bilirubin 0.7 mg/dL (0.2-1.3) 02/09/18 04:27 AST 53 U/L (17-59) 02/09/18 04:27 ALT 54 U/L (21-72) 02/09/18 04:27 Alkaline Phosphatase 92 U/L (38-126) 02/09/18 04:27 Total Creatine Kinase 802 U/L (55-170) H 02/05/18 15:50 CK-MB (CK-2) 11.9 ng/mL (0.0-2.4) H* 02/05/18 15:50 CK-MB (CK-2) Rel Index 1.5 02/05/18 15:50 Troponin I 0.020 ng/mL (0.000-0.034) 02/05/18 15:50 NT-Pro-B Natriuret Pep 578 pg/mL 02/05/18 03:25 Total Protein 4.9 g/dL (6.3-8.2) L 02/09/18 04:27 Albumin 2.7 g/dL (3.5-5.0) L 02/10/18 15:13 Triglycerides 157 mg/dL (<150) H 02/06/18 05:16 Cholesterol 109 mg/dL (<200) 02/06/18 05:16 LDL Cholesterol, Calc 40 mg/dL (0-99) 02/06/18 05:16 HDL Cholesterol 38 mg/dL (40-60) L 02/06/18 05:16 Amylase 160 U/L (30-110) H 02/05/18 03:25 Lipase 112 U/L (23-300) 02/05/18 03:25 Procalcitonin 100.00 ng/mL (0.02-0.09) H 02/07/18 12:52 Urine Color Yellow 02/05/18 08:00 Urine Appearance Clear (Clear) 02/05/18 08:00 Urine pH 5.0 (5.0-8.0) 02/05/18 08:00 Ur Specific [place] 1.018 (1.001-1.035) 02/05/18 08:00 Urine Protein Trace (Negative) H 02/05/18 08:00 Urine Glucose (UA) Negative (Negative) 02/05/18 08:00 Urine Ketones Negative (Negative) 02/05/18 08:00 Urine Blood Negative (Negative) 02/05/18 08:00 Urine Nitrite Negative (Negative) 02/05/18 08:00 Urine Bilirubin 2+ (Negative) H 02/05/18 08:00 Urine Urobilinogen <2.0 mg/dL (<2.0) 02/05/18 08:00 Ur Leukocyte Esterase Negative (Negative) 02/05/18 08:00 Influenza Type A RNA Not Detected (Not Detectd) 02/05/18 04:15 Influenza Type B (PCR) Not Detected (Not Detectd) 02/05/18 04:15 Microbiology 02/12/18 20:50 Sputum Sputum Culture - Preliminary 02/06/18 17:25 Blood Blood Culture - Final No Growth after 144 hours 02/07/18 14:47 Blood Blood Culture - Preliminary No Growth after 120 hours 02/07/18 12:52 Blood Blood Culture - Preliminary No Growth after 120 hours 02/05/18 03:25 Blood Blood Culture - Final No Growth after 144 hours 02/06/18 18:00 Penis Gram Stain - Final 02/06/18 18:00 Penis Genital Culture - Final 02/05/18 08:00 Urine,Catheterized Urine Culture - Final - Imaging and Cardiology Chest x-ray: report reviewed, image reviewed (Improvement of basal infiltrates and atelectasis) Assessment and Plan (1) Fever Narrative/Plan: 57-year-old male presents to Hospital with significant alteration of his mental status with increasing weakness and potentially a syncopal or presyncopal event. He had some nausea and emesis and wasn't feeling well for a few days. Her presentation patient is somnolent and requires BiPAP placement at admission. There is evidence of increased his creatinine from 1.0-1.5 showing acute renal failure. He has a history of significant underlying medical problems most recent admission was with evidence of pneumonia, current chest x-ray is clear. Patient appears to have sepsis source is not clear however he does have a history of MRSA infection in the past and antibiotic therapy will be adjusted to continue with the Zosyn, but without pneumonia Levaquin be discontinued and we'll add in daptomycin therapy for MRSA coverage, in that there is no distinct evidence of pneumonia at this time. Try to avoid vancomycin therapy with evidence of the acute renal failure. His ongoing difficulties with poor control of his diabetes is under by the A1c of 8.7. He was evidence of lactic acidosis at admission it is improved with hydration, he's had difficulty with lactic acidosis in the past that was medication induced. At this time appears to be more related to underlying infection given his high-grade fever at admission. Follow-up studies are normal. patient has had some worsening of his shortness of breath. And with this he is being moved to he intensive care unit. He has worsening respiratory failure.echocardiogram has been ordered as our follow-up blood cultures given . He has a history of prior significant illness in the past. 02/11/2018 the patient is definitely feeling better. His fever has resolved. He denies other significant symptoms. His breathing is about at baseline. Denies new cough or sputum production. We do have negative cultures. Patient likely be discharged to rehab in the near future OCS further rapid improvement of his underlying strength. He was like to go to home if at all possible. The patient's cultures are currently negative but he is definitely resolving his symptoms with current antibiotic therapy and supportive care. Likely finish 7 days of daptomycin at this discharge. 02/12/2018 patient has further improvement. He remains afebrile. He is having no other new symptoms. His respiratory status is back to his baseline and has not developed cough or sputum production. The patient did receive antibiotic therapy at admission possibly resulting in the negative blood cultures. The patient does have a history of prior multiple staphylococcal infections and the highest likelihood was having an underlying infection is not responded well to with the antibiotic therapy. We'll arrange 7 days of daptomycin for his discharged home. is aware. The patient has been educated as has the of the importance of wearing his BiPAP when he sleeping at night as well as taking a nap during the day to prevent further apneic events and recurrence of his CO2 narcosis. If following the office at the end of his therapy. Likely discharge home tomorrow. Outpatient intravenous antibiotic therapy has been set up. Current Visit: Yes Status: Acute Code(s): R50.9 - FEVER, UNSPECIFIED SNOMED Code(s): 133069246 (2) Sepsis Current Visit: No Status: Acute Code(s): A41.9 - SEPSIS, UNSPECIFIED ORGANISM SNOMED Code(s): 42934116 (3) Altered mental status Current Visit: Yes Status: Acute Code(s): R41.82 - ALTERED MENTAL STATUS, UNSPECIFIED SNOMED Code(s): 660577403 (4) Acute renal failure Current Visit: Yes Status: Acute Code(s): N17.9 - ACUTE KIDNEY FAILURE, UNSPECIFIED SNOMED Code(s): 58684861
[2018-02-13 05:47] LABS: Glucose,Whole Blood 121 mg/dL (75-99)
[2018-02-13] MEDS: INSULIN ASPART 100 UNIT/ML 1 ML 10 ML VIAL SQ SCH ×2 (06:38→12:42)
[2018-02-13] MEDS: PANTOPRAZOLE 40 MG TABLET PO SCH (06:38)
[2018-02-13] MEDS: HYDROcodone/APAP 10-325MG 1 EACH TAB PO PRN ×2 (06:44→10:19)
[2018-02-13] MEDS: IPRATROPIUM-ALBUTEROL 3 ML NEB INHALATION SCH ×2 (07:43→11:15)
[2018-02-13] MEDS: INSULIN DETEMIR 100 UNIT/ML 10 ML VIAL SQ SCH (10:19)
[2018-02-13] MEDS: HYDROCORTISONE 20 MG TAB PO SCH (10:22)
[2018-02-13] MEDS: LISINOPRIL 5 MG TAB PO SCH (10:22)
[2018-02-13] MEDS: GABAPENTIN 400 MG CAP PO SCH (10:22)
[2018-02-13] MEDS: DULoxetine HCL 30 MG CAPSULE.DR PO SCH (10:22)
[2018-02-13] MEDS: FUROSEMIDE 20 MG TAB PO SCH (10:22)
[2018-02-13] MEDS: APIXABAN 5 MG TAB PO SCH (10:22)
[2018-02-13] MEDS: METOPROLOL TARTRATE 25 MG TAB PO SCH (10:22)
[2018-02-13] MEDS: MEROPENEM 1 GM in SODIUM CHLORIDE 0.9% 100 ML IVPB SCH (10:23)
[2018-02-13] MEDS: DAPTOmycin 500 MG in SODIUM CHLORIDE 0.9% 50 ML IV SCH (10:47)
[2018-02-13 12:26] LABS: Glucose,Whole Blood 204 mg/dL (75-99)
[2018-02-13 12:28] VITALS: BP 101/54; PULSE 64; RESP 16; TEMP 99.1
--- NOTE | 2018-02-13 12:59 | P.DS ---
Providers Date of admission: 02/05/18 05:46 Expected date of discharge: 02/13/18 Attending physician: Bautista Romero Consults: 02/05/18 09:59 Consult Physician Routine Consulting Provider: Bran Hardin Consult Reason/Comments: fever of unknown origin, elevated lactic acid Do you want consulting provider notified?: Yes 02/05/18 11:26 Consult Physician Routine Consulting Provider: Pawel Murphy Consult Reason/Comments: elevated troponin Do you want consulting provider notified?: Yes 02/07/18 07:57 Consult Physician Routine Consulting Provider: Ag Morton Consult Reason/Comments: COPD, fever of unknown origin Do you want consulting provider notified?: Yes Primary care physician: Bautista Romero Hospital Course: 57-year-old male who presented to the emergency room with complaints of fever, lower left sided chest pain, and lethargy. Patient was evaluated in the emergency room with Dr. Romero. He is currently awaiting a bed assignment. The patient is lethargic. Patient's spouse is at the bedside and is relaying most of the history. She states that the patient has had a fever on and off for the last day or two. She reports that the patient has been "falling asleep all the time" over the past few days. She states last night he fell asleep watching TV which he never does and that concerned her. She reports the patient has been having difficulty ambulating. She states the patient went into the bathroom and a family member went to check on him because he was in the bathroom for almost an hour. It is unknown if the patient fell asleep in the bathroom or had a syncopal episode. The patient does report lower left sided chest pain that is worse with inspiration. He denies midsternal chest pain. The patient does report a cough over the last few days. Denies sputum production. 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 He has also had a myocardial infarction 2006 and 2007. His past surgical history includes bowel resection, cholecystectomy, coronary artery bypass graft, heart catheterization with multiple stents, hernia repair, and joint replacements. The patient was hospitalized in September 2017 for right upper lobe pneumonia with MRSA and sepsis. The patient was recently evaluated by Dr. Romero on an outpatient basis for erythema to his left lower extremity with a small round wound. It was cultured at the office and was positive for staph aureus. Acute abdominal series: Normal bowel gas pattern. No acute process visualized. Chest x-ray: Small amount of fluid is seen within the right minor fissure. No focal consolidation present. Laboratory data: WBC 9.3. Hemoglobin 9.6. Platelet count 253. Sodium 144. Potassium 4.8. BUN 38. Creatinine 1.50. GFR 50. Glucose 258. Troponin: 0.041, 0.039 Lactic acid: 3.5 BNP 578 Testing for influenza A/B was negative Urinalysis reveals: trace proteinuria, 2+ bilirubin. Negative for ketones, blood , nitrates or leukocyte esterase The patient was initially admitted to a general medical floor. He was placed on bipap. He was lethargic. He received IV fluids at 200cc/hr due to decreased urine output. Patient was transferred to ICU on 02/07/2018 secondary to increased lethargy and persistent fevers. Dr. Morton was consulted for ICU management. He remained on Bipap. He has been followed by Dr. Hardin and has been receiving antibiotics. He has since been transferred out of the ICU to the selective care unit. Urine cultures are negative. Blood cultures have all been negative. Genital culture revealed normal rachel. Echocardiogram revealed ejection fraction of around 35% . He received a dose of IV Solu-Medrol on 02/10/2018 for generalized joint pain and stiffness. He states that his pain has improved today. The patient also received a dose of albumin. He was resumed on Lasix 20 mg daily. His edema has improved. -Chest x-ray completed on 02/07/2018 revealed cardiomegaly with minimal subsegmental atelectasis right diaphragm. -Chest x-ray completed 02/08/2018 revealed increasing confluence of the right basilar opacity suspicious for developing pneumonia superimposed upon new mild pulmonary vascular congestion -Chest x-ray completed 02/09/2018 revealed improved aeration of the lung bases with mild persistent strand-like opacities and new left midlung opacity. Given a short-term interval improvement of the lung bases and morphology of the left midlung density findings most likely related to atelectasis or less likely pneumonia. -Chest x-ray completed 02/11/2018 revealed patchy density right lower lobe which may reflect developing infiltrate. The patient developed new onset afib. He was evaluated by cardiology. he was started on eliquis 5mg BID. Dr. Hardin recommended Daptomycin at the time of discharge. Patient received midline iv insertion. Patient did not want to go to [facility]. PT/OT worked with patient during hospitalization. agreeable to home with home care as she has cared for him at home many times and is familiar with IV antibiotic infusions. The patient was deemed stable for discharge. He is to follow up on an outpatient basis. DISCHARGE DIAGNOSIS: Bilateral lower lobe pneumonia, pulmonary following Acute on chronic hypoxic and hypercapnic respiratory failure Sepsis with elevated lactic acid, lethargy, hypotension, and fever, present on admission, likely secondary to pneumonia, improving Mildly elevated troponins, secondary to infectious process Lower left-sided chest pain, likely pleuritic in nature and also due to recent fall, resolved New onset paroxysmal atrial fibrillation with RVR, currently in sinus rhythm Acute kidney injury, creatinine 1.50 on admission, baseline 0.8-1.0, resolved with IV hydration Diabetes mellitus, type II, hemoglobin A1c 8.8% Coronary artery disease with previous coronary artery bypass grafting and previous stent placement Hospitalization in September 2017 for right upper lobe pneumonia with MRSA and sepsis Previous pneumonias requiring thoracotomy and chest tube placement Previous cellulitis with MRSA Obstructive sleep apnea Chronic adrenal insufficiency, maintained on Cortef Hyperlipidemia Osteoarthritis with joint stiffness, improved with IV solu-medrol Hypothyroidism Obesity: BMI 35.8 Hypoalbuminemia Nurse practitioner note has been reviewed by physician. Signing provider agrees with the documented findings, assessment, and plan of care. Patient Condition at Discharge: Stable Plan - Discharge Summary Discharge Rx Participant: No New Discharge Prescriptions: New DAPTOmycin [Cubicin] 500 mg IVPB DAILY #14 vial Apixaban [Eliquis] 5 mg PO BID #60 tab Metoprolol Tartrate [Lopressor] 25 mg PO BID #60 tab Continue Levothyroxine Sodium [Synthroid] 50 mcg PO HS Omeprazole [PriLOSEC] 20 mg PO BID Nitroglycerin Sl Tabs [Nitrostat] 0.4 mg SUBLINGUAL Q5M PRN PRN Reason: Chest Pain Furosemide [Lasix] 20 mg PO DAILY amLODIPine [Norvasc] 5 mg PO HS Gabapentin [Neurontin] 800 mg PO QID fentaNYL 25MCG/HR PATCH [Duragesic 25MCG/HR] 1 patch TRANSDERM Q72H HYDROcodone/APAP 10-325MG [[place] 10-325] 1 tab PO Q4HR PRN PRN Reason: Pain Montelukast [Singulair] 10 mg PO HS #30 tab Hydrocortisone [Cortef] 20 mg PO DAILY #30 tab Insulin Aspart [NovoLOG Flexpen] See Protocol SQ ACHS Multivit-Min/FA/Lycopen/Lutein [Centrum Silver Tablet] 1 tab PO DAILY@1200 Lisinopril [Zestril] 5 mg PO DAILY #30 tab metFORMIN HCL 1,000 mg PO BID DULoxetine HCL [Cymbalta] 30 mg PO BID Insulin Glargine [Lantus] 26 unit SQ BID Etodolac [Lodine] 400 mg PO BID Atorvastatin [Lipitor] 80 mg PO HS Discontinued Aspirin 81 mg PO HS Discharge Medication List Levothyroxine Sodium [Synthroid] 50 mcg PO HS 02/01/14 [History] Nitroglycerin Sl Tabs [Nitrostat] 0.4 mg SUBLINGUAL Q5M PRN 02/01/14 [History] Omeprazole [PriLOSEC] 20 mg PO BID 02/01/14 [History] Furosemide [Lasix] 20 mg PO DAILY 05/13/15 [History] Gabapentin [Neurontin] 800 mg PO QID 05/13/15 [History] amLODIPine [Norvasc] 5 mg PO HS 05/13/15 [History] HYDROcodone/APAP 10-325MG [[place] 10-325] 1 tab PO Q4HR PRN 07/17/16 [History] fentaNYL 25MCG/HR PATCH [Duragesic 25MCG/HR] 1 patch TRANSDERM Q72H 07/17/16 [ History] Montelukast [Singulair] 10 mg PO HS #30 tab 11/21/16 [Rx] Hydrocortisone [Cortef] 20 mg PO DAILY #30 tab 12/03/16 [Rx] Insulin Aspart [NovoLOG Flexpen] See Protocol SQ ACHS 02/10/17 [History] Multivit-Min/FA/Lycopen/Lutein [Centrum Silver Tablet] 1 tab PO DAILY@1200 02/10 [History] Lisinopril [Zestril] 5 mg PO DAILY #30 tab 02/14/17 [Rx] DULoxetine HCL [Cymbalta] 30 mg PO BID 09/25/17 [History] Etodolac [Lodine] 400 mg PO BID 09/25/17 [History] Insulin Glargine [Lantus] 26 unit SQ BID 09/25/17 [History] metFORMIN HCL 1,000 mg PO BID 09/25/17 [History] Atorvastatin [Lipitor] 80 mg PO HS 02/05/18 [History] DAPTOmycin [Cubicin] 500 mg IVPB DAILY #14 vial 02/12/18 [Rx] Apixaban [Eliquis] 5 mg PO BID #60 tab 02/13/18 [Rx] Metoprolol Tartrate [Lopressor] 25 mg PO BID #60 tab 02/13/18 [Rx] Follow up Appointment(s)/Referral(s): Enedina Nam MD [STAFF PHYSICIAN] - 03/14/18 2:00 pm (Saturday Previously scheduled appointment) Bran Hardin MD [STAFF PHYSICIAN] - 02/26/18 10:15 am (Saturday) Bautista Romero MD [Primary Care Provider] - 02/20/18 12:30 pm ( no earlier time available ) Patient Instructions/Handouts: A-fib (Atrial Fibrillation) (DC), Sepsis (GEN), Safe Use of Anticoagulants (DC) Activity/Diet/Wound Care/Special Instructions: [facility] [phone] [facility] ( [employer]) [phone] Discharge Disposition: HOME WITH HOME HEALTH SERVICES
--- NOTE | 2018-02-13 13:53 | P.PN ---
Subjective Progress Note Date: 02/13/18 Principal diagnosis: Paroxysmal atrial fibrillation with rapid ventricular response, Altered mental status, acute on chronic hypoxic and hypercapnic history failure, severe degree of sleep disorder breathing and sleep apnea, acute COPD exacerbation, right lower lobe pneumonia, tarry artery disease, congestive heart failure with chronic systolic heart failure, chronic gout 02/13/2018, patient seen eval examined during the rounds clinically has been doing much better breathing more comfortably he has been using BiPAP machine on regular basis patient is status post PICC line in the right upper extremity is sitting upright in the bed breathing comfortably he has some questions about to the anticoagulation which have discussed with him at length also advised to discuss with the primary mold breaker Dr. Hankins, patient is being planned for possible discharge later on today 02/12/2018, patient seen eval reexamined during the rounds is still have intermittent episode of shortness of breath however spiking fever Petrin has improved significantly, patient is status post PICC line in the right upper extremity earlier this morning for antibiotics on outpatient basis, patient continued use BiPAP machine was seems to be improving mental status as well as overall general breathing, 02/11/2018, patient seen eval examined clinically has been overall remains stable on 2 L oxygen breathing comfortably still have component generalized anasarca medications are being adjusted his cuff congestion spiking fever Petrin has improved significantly labs reviewed medications reviewed, patient has been tolerating BiPAP machine each night and when necessary during the day fairly well, blood cultures so far have been negative, 02/10/2018, patient seen eval reexamined during the rounds clinically patient has been doing better on 2 L oxygen patient has use BiPAP and machine at nighttime with significant improvement and respiration as well as mental status tolerating by mouth well, patient has been started on anticoagulation for recurrent paroxysmal atrial fibrillation. Currently patient is on broad- spectrum antibiotics with daptomycin and Merrem IV service following culture results and reports are reviewed, blood culture so far has been negative, last chest x-ray performed revealed improve infiltrate however some new left midlung opacities noted will repeat another chest x-ray tomorrow 05/12/2018, patient seen eval evaluated examined during the rounds patient is breathing comfortably on supplemental oxygen has intermittent cough chest x-ray performed today reviewed there is improved aeration is seen some patchy infiltrate at the bases and left midlung field cannot be excluded, note is made of cardiovascular recommendation for recurrent paroxysmal atrial fibrillation of initiating on Eliquis and low-dose metoprolol 02/08/2018, patient seen eval examined in the ICU he is more awake and alert opens eyes follow simple command no obvious distress present breathing more comfortably he is off of BiPAP currently has been on supplemental oxygen with 3 L saturation are in mid 90s he is tolerating by mouth fairly well no choking or cough has been noted labs reviewed medications reviewed chest x-ray as well as arterial blood gas performed this morning reviewed as well 57-year-old male who was admitted into the hospital on February 05 with the altered mental status confusion and a spiking fever and was brought into the emergency department by the family member for above-mentioned complaint patient was initially admitted into the medical floor where due to significant hypoxia and worsening mental status was transferred to the ICU where I saw the patient patient initially was placed on the BiPAP of 10 and 5 subsequently adjusted to 12 and 8 with that patient tolerated very well his mental status significantly improved patient was more arousable at the time of my evaluation, no history of seizure activity or hemiparesis, does have spiking fever up to 102-103 at home, denies any bowel or bladder dysfunction except an episode of diarrhea, denies any chest pain or radiation of pain does have ongoing difficulty in breathing the, arterial blood gas were performed x-ray reviewed decision was done not to intubate but rather to adjust the BiPAP setting Review of the data revealed that earlier this year the patient was hospitalized for multifocal pneumonia and MRSA was isolated from his sputum. After hospitalization he had improvement in completed his course of oral trimethoprim sulfamethoxazole with good resolution. He has had difficulties in the past with diabetes mellitus type 2 with poor control, severe coronary artery disease with several myocardial infarctions and chronic polyneuropathy, also has a severe degree of sleep disorder breathing obstructive sleep apnea however he has been using his CPAP machine regularly,. He does have a known history of gout and psoriasis that has been very difficult to control over time but have been better as of late. Objective - Vital Signs Vital signs: Vital Signs Temp 99.1 F 02/13/18 09:30 Pulse 72 02/13/18 11:29 Resp 16 02/13/18 09:30 BP 101/54 02/13/18 09:30 Pulse Ox 93 L 02/13/18 09:30 Intake & Output 02/12/18 02/13/18 02/13/18 18:59 06:59 18:59 Intake Total 150 180 Output Total 0 300 300 Balance 150 -300 -120 Weight 124 kg 102.2 kg Intake: Oral 150 180 Output: Urine 300 300 Stool 0 Other: Voiding Method Urinal # Voids 1 - Exam 57-year-old male who has nasal cannula in place, is awake and alert oriented 3 HEENT: Anicteric conjunctiva are pink and moist nasal mucosa grossly intact without significant lesions, there is no thrush. Neck: The neck is supple without significant lymphadenopathy or thyromegaly. Lungs: There is symmetrical bilateral air entry. There are a few basilar crackles and scattered expiratory wheeze but no bronchial sounds are noted. Heart: Regular rate and rhythm with an audible S1-S2, no S3 soft S4. There is no significant murmur click or rub, PMI was nondisplaced. Abdomen: Positive bowel sounds soft and appears nontender without palpable masses or organomegaly. There was no rigidity. Extremities: The lower extremities have evidence of +2 generalized edema. The left lower extremity has an area of some mild erythema but no open ulceration at this time. The feet are warm to touch. Right upper extremity PICC line at antecubital area Other than the erythema on the left leg. No significant skin lesions or open lesions his underlying psoriasis is under good control at this time. Neuro: The patient is awake and alert moving all 4 extremity no focal neurological deficit - Labs CBC & Chem 7: 02/12/18 06:00 02/12/18 06:00 Labs: Abnormal Lab Results - Last 24 Hours (Table) 02/12/18 02/12/18 02/13/18 Range/Units 16:46 20:50 05:46 POC Glucose (mg/dL) 149 H 206 H 121 H (75-99) mg/dL 02/13/18 Range/Units 12:00 POC Glucose (mg/dL) 204 H (75-99) mg/dL Microbiology - Last 24 Hours (Table) 02/12/18 20:50 Gram Stain - Preliminary Sputum Sputum Culture - Preliminary Radha albicans 02/06/18 17:25 Blood Culture - Final Blood No Growth after 144 hours 02/07/18 14:47 Blood Culture - Preliminary Blood No Growth after 120 hours 02/07/18 12:52 Blood Culture - Preliminary Blood No Growth after 120 hours Assessment and Plan Assessment: Altered mental status related to hypoxia and severe hypercapnia patchy right lower lobe infiltratesignificant otherwise change has been seen, patient has been tolerating antibiotics well Acute on chronic hypoxic and hypercapnic respirator failure Paroxysmal atrial fibrillation with rapid ventricular response Severe degree of sleep disorder breathing and sleep apnea Acute COPD exacerbation Purulent tracheobronchitis Bilateral lower lobe pneumonia right more than left Severe degree of coronary artery disease, chronic systolic heart failure Chronic microcytic anemia Electrolyte imbalance with severe hypomagnesemia Plan: BiPAP support pressure adjusted see orders for detail each night and when necessary during the day Continue broad-spectrum antibiotics Okay to maintain patient on Eliquis for paroxysmal atrial fibrillation Continue home medications and supportive care Deep breathing exercises incentive spirometry Further recommendations pending plan of care as per clinical response of the patient patient has regain his mental status with adequate treatment with BiPAP Will follow clinical course closely reviewed follow-up chest x-ray Time with Patient: Greater than 30
--- NOTE | 2018-02-17 12:31 | CDI ---
Last Revision, August 2017 Documentation Clarification Form Date: 02/17/18 From: Louise Warren Phone: If you have a question regarding this query, please contact Kaley Wright at [phone] between 8am and 5pm Admit Date: 02/05/2018 5:46:00 AM Patient Name: Benja Ribera Visit Number: [id number] Discharge Date: 02/13/18 ATTENTION: The Clinical Documentation Specialists (CDI) and [facility] Coding Staff appreciate your assistance in clarifying documentation. Please respond to the clarification below the line at the bottom and electronically sign. The CDI & [facility] Coding staff will review the response and follow-up if needed. Please note: Queries are made part of the Legal Health Record. If you have any questions, please contact the author of this message via ITS. Dr. Bautista Romero Pneumonia was documented in the notes throughout the chart. History/Risk Factors: (include outpatient tx?/home O2): History of MRSA pneumonia, COPD, chronic respiratory failure and obstructive sleep apnea. Clinical Indicators: Fever, lethargy, cough WBC/Left shift: 9.3/7.9 X-ray: 02/05: Small amount of fluid is seen within the right minor fissure. No focal consolidation present at this time. Lung/Breathing assessment: Coarse lung sounds. No use of accessory muscles. Treatment: Antibiotics: IV daptomycin, levoflaxacin, Zosyn, O2: BiPAP ventilatory support Breathing Tx: Ventolin and Duoneb In order to capture the severity of condition, please clarify if the condition signifies and you are treating for: Aspiration Pneumonia, identify if: Bacterial Pneumonia, specify causal organism (if known) Viral Pneumonia, specify casual organism (if known) Healthcare Acquired Pneumonia/Pneumonia, unspecified Other, please specify Unable to determine MTDD
--- NOTE | 2018-02-17 12:41 | CDI ---
Last Revision, August 2017 Documentation Clarification Form Date: 02/17/18 From: Louise Warren Phone: If you have a question regarding this query, please contact Kaley Wright at [phone] between 8am and 5pm. Admit Date: 02/05/2018 5:46:00 AM Patient Name: Benja Ribera Visit Number: [id number] Discharge Date: 02/13/18 ATTENTION: The Clinical Documentation Specialists (CDI) and [facility] Coding Staff appreciate your assistance in clarifying documentation. Please respond to the clarification below the line at the bottom and electronically sign. The CDI & [facility] Coding staff will review the response and follow-up if needed. Please note: Queries are made part of the Legal Health Record. If you have any questions, please contact the author of this message via ITS. Dr. Bran Hardin Patient was completely encephalopathic is documented in your 02/11 and 02/12 progress notes. History/Risk factors: Patient was admitted for sepsis and pneumoni. Has a nistory of MRSA pneumonia, COPD, chronic respiratory failure. Clinical Indicators: Altered mental status. In your professional opinion, can you please clarify the specific type of encephalopathy, if known? Hypertensive Encephalopathy Metabolic Encephalopathy Septic Encephalopathy Toxic Encephalopathy Indicate if any complications: Coma, other disease process? Indicate whether acute, sub-acute or chronic? Other, please specify Unable to determine MTDD
== END 2018-02-13 14:19 | disposition home health service (06) | DRG 871 ==
LOC: EC 02:54 → 6SEL 05:46 → 4MS4W 11:42 → 6SEL 11:48 → 6ICU 02-07 14:07 → 6SEL 02-09 14:56
PROVIDERS: ADMIT Family Medicine; ATTEND Family Medicine
DX: A41.9 Sepsis, unspecified organism (principal); J96.21 Acute and chronic respiratory failure with hypoxia; J96.22 Acute and chronic respiratory failure with hypercapnia; G93.41 Metabolic encephalopathy; J15.9 Unspecified bacterial pneumonia; E27.40 Unspecified adrenocortical insufficiency; I50.22 Chronic systolic (congestive) heart failure; J44.0 Chronic obstructive pulmonary disease with (acute) lower respiratory infection; J44.1 Chronic obstructive pulmonary disease with (acute) exacerbation; J98.11 Atelectasis; N17.9 Acute kidney failure, unspecified; D50.9 Iron deficiency anemia, unspecified; E11.42 Type 2 diabetes mellitus with diabetic polyneuropathy; I11.0 Hypertensive heart disease with heart failure; I48.0 Paroxysmal atrial fibrillation; E83.42 Hypomagnesemia; E88.09 Other disorders of plasma-protein metabolism, not elsewhere classified; E03.9 Hypothyroidism, unspecified; R07.81 Pleurodynia; E66.9 Obesity, unspecified; E78.5 Hyperlipidemia, unspecified; E86.0 Dehydration; G47.33 Obstructive sleep apnea (adult) (pediatric); I25.10 Atherosclerotic heart disease of native coronary artery without angina pectoris; I25.2 Old myocardial infarction; K21.9 Gastro-esophageal reflux disease without esophagitis; M13.0 Polyarthritis, unspecified; M1A.9XX0 Chronic gout, unspecified, without tophus (tophi); M48.061 Spinal stenosis, lumbar region without neurogenic claudication; L40.9 Psoriasis, unspecified; R01.1 Cardiac murmur, unspecified; R77.9 Abnormality of plasma protein, unspecified; R36.9 Urethral discharge, unspecified; K86.9 Disease of pancreas, unspecified; Z68.35 Body mass index [BMI] 35.0-35.9, adult; Z79.82 Long term (current) use of aspirin; Z79.899 Other long term (current) drug therapy; Z79.4 Long term (current) use of insulin; Z79.890 Hormone replacement therapy; Z85.828 Personal history of other malignant neoplasm of skin; Z86.14 Personal history of Methicillin resistant Staphylococcus aureus infection; Z95.5 Presence of coronary angioplasty implant and graft; Z95.1 Presence of aortocoronary bypass graft; Z96.641 Presence of right artificial hip joint; Z90.49 Acquired absence of other specified parts of digestive tract; Z87.891 Personal history of nicotine dependence; Z87.01 Personal history of pneumonia (recurrent); Z88.5 Allergy status to narcotic agent; Z83.3 Family history of diabetes mellitus; Z82.49 Family history of ischemic heart disease and other diseases of the circulatory system; Z80.3 Family history of malignant neoplasm of breast; Z80.1 Family history of malignant neoplasm of trachea, bronchus and lung; Z82.61 Family history of arthritis; Z83.79 Family history of other diseases of the digestive system
CPT/HCPCS: 00000; 36415; 36600; 71045; 71046; 74022; 80048; 80053; 80061; 81003; 82040; 82150; 82550; 82553; 82805; 83036; 83605; 83690; 83735; 83880; 84100; 84132; 84145; 84484; 85025; 85027; 87040; 87070; 87086; 87205; 87502; 93005; 93306; 94640; 94660; 94760; 96365; 96366; 96368; 96372; 96375; 99285

== ENCOUNTER 2018-04-08 19:49 | Inpatient (IN) | payer MEDICARE ==
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
[2018-04-08 20:29] LABS: Anisocytosis Slight; Basophils % (A) 0 %; Eosinophils # (A) 0.2 k/uL (0-0.7); Eosinophils % (A) 2 %; HCT 34.8 % (39.0-53.0); HGB 9.6 gm/dL (13.0-17.5); Hypochromasia Marked; Lymphocytes # (A) 0.9 k/uL (1.0-4.8); Lymphocytes % (A) 7 %; MCH 20.3 pg (25.0-35.0); MCHC 27.6 g/dL (31.0-37.0); MCV 73.4 fL (80.0-100.0); Microcytosis Moderate; Monocytes # (A) 0.5 k/uL (0-1.0); Monocytes % (A) 4 %; Neutrophils # (A) 11.7 k/uL (1.3-7.7); Neutrophils % (A) 85 %; Platelet Count 325 k/uL (150-450); Poikilocytosis Slight; RBC 4.74 m/uL (4.30-5.90); RDW 17.8 % (11.5-15.5); WBC 13.7 k/uL (3.8-10.6)
[2018-04-08 20:37] LABS: INR 1.1 (<1.2); Prothrombin Time 10.9 sec (9.0-12.0)
[2018-04-08] MEDS ORDERED: ACETAMINOPHEN IV (For NPO) 1,000 MG in EMPTY BAG 1 BAG IVPB STA (20:38)
[2018-04-08] MEDS ORDERED: IPRATROPIUM-ALBUTEROL 3 ML NEB INHALATION STA (20:38)
[2018-04-08] MEDS ORDERED: SODIUM CHLORIDE 0.9% 1,000 ML IV STA ×3 (20:38→21:08)
[2018-04-08 20:40] LABS: Partial Thromboplastin Time 19.2 sec (22.0-30.0)
[2018-04-08 20:43] LABS: ALT 155 U/L (21-72); AST 147 U/L (17-59); Albumin 4.1 g/dL (3.5-5.0); Alkaline Phosphatase 101 U/L (38-126); Anion Gap 13 mmol/L; Blood Urea Nitrogen 34 mg/dL (9-20); Calcium 8.6 mg/dL (8.4-10.2); Carbon Dioxide 24 mmol/L (22-30); Chloride 105 mmol/L (98-107); Glucose 100 mg/dL (74-99); Phosphorus 4.3 mg/dL (2.5-4.5); Potassium 4.3 mmol/L (3.5-5.1); Sodium 142 mmol/L (137-145); Total Bilirubin 0.7 mg/dL (0.2-1.3); Total Protein 7.2 g/dL (6.3-8.2)
[2018-04-08 20:46] LABS: Magnesium 0.9 mg/dL (1.6-2.3)
[2018-04-08] MEDS ORDERED: MAGNESIUM OXIDE 400 MG TAB PO STA (20:50)
[2018-04-08 20:53] LABS: Glucose,Whole Blood 114 mg/dL (75-99)
[2018-04-08 21:01] LABS: Troponin I 0.025 ng/mL (0.000-0.034)
[2018-04-08 21:03] LABS: Creatine Kinase MB 25.6 ng/mL (0.0-2.4)
--- NOTE | 2018-04-08 21:07 | XR ---
EXAMINATION TYPE: XR chest 2V DATE OF EXAM: 04/08/2018 COMPARISON: 02/11/2018 HISTORY: Weakness TECHNIQUE: Frontal and lateral views of the chest are obtained. FINDINGS: There is coarse interstitial density in the mid and lower lung roldan. There are sternal w ires. There is no heart failure. There is no pleural effusion. There are chest leads. IMPRESSION: No heart failure. Pulmonary infiltrates bilaterally appears slightly increased on the le ft side and unchanged on the right side compared to last exam consistent with combined pneumonia and pulmonary fibrosis.
[2018-04-08] MEDS ORDERED: cefTRIAXone IN SWFI 1,000 MG/10 ML SYRINGE IVP STA (21:08)
[2018-04-08] MEDS ORDERED: PNEUMONIA PROTOCOL UTILIZED 1 EACH MISC PO PRN (21:08)
[2018-04-08] MEDS ORDERED: AZITHROMYCIN 500 MG in DEXTROSE 5% IN WATER 250 ML IVPB STA ×2 (21:08)
[2018-04-08] MEDS: MAGNESIUM SULFATE-D5W PMX 1 GM in DEXTROSE/WATER 1 100ML.BAG IVPB SCH (21:32)
[2018-04-08] MEDS ORDERED: NITROGLYCERIN SL TABS 0.4 MG TAB SUBLINGUAL PRN (23:40)
[2018-04-09] MEDS: FUROSEMIDE 20 MG TAB PO SCH ×3 (00:28→20:54)
[2018-04-09] MEDS: GABAPENTIN 400 MG CAP PO SCH ×4 (00:28→17:03)
[2018-04-09] MEDS: HYDROcodone/APAP 10-325MG 1 EACH TAB PO PRN ×4 (00:30→20:55)
[2018-04-09 00:47] LABS: Glucose,Whole Blood 62 mg/dL (75-99)
[2018-04-09 00:56] LABS: Glucose,Whole Blood 98 mg/dL (75-99)
[2018-04-09] MEDS: SODIUM CHLORIDE 0.9% 1,000 ML IV SCH ×3 (02:21→17:06)
[2018-04-09] MEDS: MAGNESIUM SULFATE-D5W PMX 1 GM in DEXTROSE/WATER 1 100ML.BAG IVPB SCH ×3 (02:28→04:59)
[2018-04-09 03:18] LABS: Glucose,Whole Blood 176 mg/dL (75-99)
[2018-04-09 05:45] LABS: Appearance,Urine Clear (Clear); Bilirubin,Urine Negative (Negative); Blood,Urine Negative (Negative); Color,Urine Yellow; Glucose,Urine (UA) Negative (Negative); Hyaline Casts,Urine 3 /lpf (0-2); Ketones,Urine Negative (Negative); Leukocyte Esterase,Urine Negative (Negative); Mucus,Urine Rare /hpf; Nitrite,Urine Negative (Negative); PH, Urine 5.5 (5.0-8.0); Protein,Urine 1+ (Negative); RBC,Urine <1 /hpf (0-5); Specific Gravity,Urine 1.012 (1.001-1.035); Squamous Epithelial Cell,Urine <1 /hpf (0-4); Urobilinogen,Urine <2.0 mg/dL (<2.0); WBC,Urine <1 /hpf (0-5)
[2018-04-09] MEDS: ACETAMINOPHEN TAB 325 MG TAB PO PRN (06:56)
[2018-04-09 07:10] LABS: Glucose,Whole Blood 112 mg/dL (75-99)
[2018-04-09] MEDS: IPRATROPIUM-ALBUTEROL 3 ML NEB INHALATION SCH ×4 (07:56→20:47)
[2018-04-09] MEDS: ETODOLAC 400 MG TAB PO SCH ×2 (08:31→20:55)
[2018-04-09] MEDS: metFORMIN 500 MG TAB PO SCH ×2 (08:31→17:03)
[2018-04-09] MEDS: MULTIVITAMINS, THERA 1 EACH TAB PO SCH (08:32)
[2018-04-09] MEDS: PANTOPRAZOLE 40 MG TABLET PO SCH (08:32)
[2018-04-09] MEDS: HYDROCORTISONE 20 MG TAB PO SCH (08:32)
[2018-04-09] MEDS: DULoxetine HCL 30 MG CAPSULE.DR PO SCH ×2 (08:32→20:54)
[2018-04-09] MEDS: LISINOPRIL 5 MG TAB PO SCH (08:32)
[2018-04-09] MEDS: METOPROLOL TARTRATE 25 MG TAB PO SCH ×2 (08:32→20:54)
[2018-04-09] MEDS: INSULIN ASPART 100 UNIT/ML 1 ML 10 ML VIAL SQ SCH ×4 (08:33→20:54)
[2018-04-09] MEDS: NON-FORMULARY DRUG (Vitamin B Complex [Vitamin B Complex] 1 CAP) PO SCH (08:34)
[2018-04-09] MEDS: INSULIN DETEMIR 100 UNIT/ML 10 ML VIAL SQ SCH ×2 (08:34→20:53)
[2018-04-09] MEDS ORDERED: AZITHROMYCIN 500 MG TAB PO SCH (09:00)
[2018-04-09] MEDS ORDERED: ENOXAPARIN 40 MG/0.4 ML SYRINGE SQ SCH (09:00)
[2018-04-09] MEDS ORDERED: cefTRIAXone IN SWFI 1,000 MG/10 ML SYRINGE IVP SCH (09:00)
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
[2018-04-09 09:43] LABS: Anisocytosis Slight; Basophils % (A) 0 %; Eosinophils # (A) 0.1 k/uL (0-0.7); Eosinophils % (A) 2 %; HCT 30.7 % (39.0-53.0); HGB 8.4 gm/dL (13.0-17.5); Hypochromasia Marked; Lymphocytes # (A) 0.8 k/uL (1.0-4.8); Lymphocytes % (A) 9 %; MCH 20.2 pg (25.0-35.0); MCHC 27.4 g/dL (31.0-37.0); MCV 73.9 fL (80.0-100.0); Mean Platelet Volume 6.7; Microcytosis Moderate; Monocytes # (A) 0.5 k/uL (0-1.0); Monocytes % (A) 6 %; Neutrophils # (A) 7.1 k/uL (1.3-7.7); Neutrophils % (A) 80 %; Platelet Count 242 k/uL (150-450); Poikilocytosis Slight; RBC 4.16 m/uL (4.30-5.90); RDW 17.6 % (11.5-15.5); WBC 8.9 k/uL (3.8-10.6)
[2018-04-09] MEDS: APIXABAN 5 MG TAB PO SCH ×2 (09:46→21:24)
[2018-04-09 10:01] LABS: ALT 123 U/L (21-72); AST 94 U/L (17-59); Albumin 3.2 g/dL (3.5-5.0); Alkaline Phosphatase 83 U/L (38-126); Anion Gap 10 mmol/L; Blood Urea Nitrogen 22 mg/dL (9-20); Carbon Dioxide 26 mmol/L (22-30); Chloride 107 mmol/L (98-107); Glucose 98 mg/dL (74-99); Magnesium 1.7 mg/dL (1.6-2.3); Potassium 3.6 mmol/L (3.5-5.1); Sodium 143 mmol/L (137-145); Total Bilirubin 0.4 mg/dL (0.2-1.3); Total Protein 5.9 g/dL (6.3-8.2)
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
--- NOTE | 2018-04-09 10:10 | XR ---
EXAMINATION TYPE: XR chest 1V DATE OF EXAM: 04/09/2018 COMPARISON: 04/08/2018 INDICATION: CHF, pneumonia TECHNIQUE: Single frontal view of the chest is obtained. FINDINGS: The heart size is mildly prominent. The pulmonary vasculature is normal. There is a consolidation in the right lower lobe. Some milder infiltrate is at the left base. Finding s are worsening over the interval. Atelectasis and pneumonia could be considered. Atypical pulmonary edema would be less likely. IMPRESSION: 1. Increasing bibasilar infiltrates greater on the right than the left. Correlate for atelectasis and pneumonia.
[2018-04-09 12:13] LABS: Glucose,Whole Blood 199 mg/dL (75-99)
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
[2018-04-09 17:15] LABS: Glucose,Whole Blood 165 mg/dL (75-99)
[2018-04-09 20:23] LABS: Glucose,Whole Blood 230 mg/dL (75-99)
[2018-04-09] MEDS: amLODIPine 5 MG TAB PO SCH (20:54)
[2018-04-09] MEDS: MONTELUKAST 10 MG TAB PO SCH (20:54)
[2018-04-09] MEDS: ATORVASTATIN 80 MG TAB PO SCH (20:54)
[2018-04-09] MEDS: LEVOTHYROXINE 50 MCG TAB PO SCH (20:54)
[2018-04-09] MEDS ORDERED: GABAPENTIN 400 MG CAP ONE (22:20)
[2018-04-10] MEDS ORDERED: SODIUM CHLORIDE 0.9% 1,000 ML BAG ONE (03:00)
[2018-04-10] MEDS ORDERED: HYDROcodone/APAP 10-325MG 1 EACH TAB ONE (03:00)
[2018-04-10 03:47] LABS: Glucose,Whole Blood 151 mg/dL (75-99)
[2018-04-10] MEDS: SODIUM CHLORIDE 0.9% 1,000 ML IV SCH ×2 (05:27→13:27)
[2018-04-10] MEDS: GABAPENTIN 400 MG CAP PO SCH ×5 (05:27→20:24)
[2018-04-10] MEDS: HYDROcodone/APAP 10-325MG 1 EACH TAB PO PRN ×3 (05:47→20:21)
[2018-04-10] MEDS: IPRATROPIUM-ALBUTEROL 3 ML NEB INHALATION SCH ×4 (07:01→20:24)
--- NOTE | 2018-04-10 07:18 | P.CON ---
Consult Note - . Consult date: 04/09/18 Assessment/Plan:: 57-year-old male who is well-known to the infectious disease service because of his multiple bouts of sepsis. Earlier this year the patient was hospitalized for multifocal pneumonia and MRSA was isolated from his sputum. After hospitalization he had improvement in completed his course of oral trimethoprim sulfamethoxazole with good resolution. He has had difficulties in the past with diabetes mellitus type 2 with poor control, severe coronary artery disease with several myocardial infarctions and chronic polyneuropathy. He does have a known history of gout and psoriasis that has been very difficult to control over time but have been better as of late. He did have several admissions where he was having difficulties with lactic acidosis that was thought to be medication induced. She was preparing for colonoscopy and had several bouts of diarrhea prior to starting the prep. Then patient developed dizziness weakness and apparently low blood pressure with fever and chills. He was brought into [facility] emergency center for evaluation. His temperature max has been 100.8, white count of 13.7, CK 2958, AST 147 and ALT 155, troponin 0.025, magnesium 0.9 and has been replaced. Initial lactic acid 3.5 and repeat is 1.1 He is status post 2 L of IV fluid. Chest x-ray showed pulmonary infiltrate bilaterally slightly increased on the left and unchanged on the right. Patient was given ceftriaxone and azithromycin in the emergency center and subsequent [facility]. Pulmonary medicine is also on consult. When asked, patient states that he has been using his BiPAP but according to nursing he had the centering the night for only a brief period. Patient has had no nausea, vomiting or diarrhea this morning. According to the night cleaner he did have some liquid stools. Stool studies ordered include a C. difficile toxin, Cryptosporidium, Giardia, rotavirus and stool culture. Please see the consult note is dictated by nurse practitioner Mrs. Craney Yolanda. This pleasant 57-year-old gentleman is well-known to the service of multiple hospitalizations. Presents now with significant weakness and dizziness and lactic acidosis occurring after onset of copious diarrhea after prep for his colonoscopy. With hydration the patient is feeling slightly better at this time. The patient's chest x-ray was with some minimal change from the most recent x-ray with potential atelectasis or infiltrate. With his illness antibiotic therapy with ceftriaxone and azithromycin was started with concerns pneumonia. Cultures are currently in process are awaited. With hydration the patient is urged to feel considerably better. He also is having significant bilateral lower extremity edema. The patient relates that he spends a great deal of his time sitting upright in a chair, with his legs in a dependent position which of course worsens his edema. He does wrap them at times. It is noted since coming to Hospital, having legs elevated and wraps in place he is remarkably improved. There is no significant cellulitis with ulcers in the legs at this time. The plan for now will be to monitor for any other evidence of infection, will hopefully limit his antibiotic therapy. We'll need input from gastroenterology possibly as an outpatient as to the next plan given that he has ongoing significant anemia and endoscopy was being performed to evaluate for a source of his anemia but had a significant difficulty with the prep with the profuse diarrhea resulting in weakness, volume contracture and dehydration induced lactic acidosis. As noted he was 8.4 and does not need transfusion at this time. I agree with evaluation, assessment and plan as dictated by nurse practitioner Mrs. Mari Guerrero.
[2018-04-10] MEDS: INSULIN ASPART 100 UNIT/ML 1 ML 10 ML VIAL SQ SCH ×4 (07:37→21:51)
[2018-04-10 08:01] LABS: Anisocytosis Slight; Basophils % (A) 1 %; Eosinophils # (A) 0.3 k/uL (0-0.7); Eosinophils % (A) 4 %; HCT 29.9 % (39.0-53.0); HGB 8.3 gm/dL (13.0-17.5); Hypochromasia Marked; Lymphocytes # (A) 0.5 k/uL (1.0-4.8); Lymphocytes % (A) 9 %; MCHC 27.9 g/dL (31.0-37.0); MCV 75.3 fL (80.0-100.0); Mean Platelet Volume 7.3; Microcytosis Slight; Monocytes # (A) 0.3 k/uL (0-1.0); Monocytes % (A) 5 %; Neutrophils % (A) 79 %; Platelet Count 191 k/uL (150-450); Poikilocytosis Slight; RBC 3.97 m/uL (4.30-5.90); RDW 17.6 % (11.5-15.5); WBC 6.3 k/uL (3.8-10.6)
[2018-04-10 08:23] LABS: Glucose,Whole Blood 85 mg/dL (75-99)
[2018-04-10] MEDS: ETODOLAC 400 MG TAB PO SCH ×2 (08:53→20:23)
[2018-04-10] MEDS: LISINOPRIL 5 MG TAB PO SCH (08:53)
[2018-04-10] MEDS: AZITHROMYCIN 500 MG TAB PO SCH (08:53)
[2018-04-10] MEDS: MULTIVITAMINS, THERA 1 EACH TAB PO SCH (08:53)
[2018-04-10] MEDS: METOPROLOL TARTRATE 25 MG TAB PO SCH ×2 (08:53→20:24)
[2018-04-10] MEDS: PANTOPRAZOLE 40 MG TABLET PO SCH (08:53)
[2018-04-10] MEDS: INSULIN DETEMIR 100 UNIT/ML 10 ML VIAL SQ SCH ×2 (08:54→21:51)
[2018-04-10] MEDS: DULoxetine HCL 30 MG CAPSULE.DR PO SCH ×2 (08:54→20:23)
[2018-04-10] MEDS: FUROSEMIDE 20 MG TAB PO SCH ×2 (08:54→20:23)
[2018-04-10] MEDS: HYDROCORTISONE 20 MG TAB PO SCH (08:54)
[2018-04-10] MEDS: cefTRIAXone IN SWFI 1,000 MG/10 ML SYRINGE IVP SCH (08:54)
[2018-04-10] MEDS: metFORMIN 500 MG TAB PO SCH ×2 (08:54→17:32)
[2018-04-10] MEDS: APIXABAN 5 MG TAB PO SCH ×2 (08:54→20:23)
[2018-04-10] MEDS: NON-FORMULARY DRUG (Vitamin B Complex [Vitamin B Complex] 1 CAP) PO SCH (08:55)
[2018-04-10 09:08] LABS: Anion Gap 8 mmol/L; Blood Urea Nitrogen 19 mg/dL (9-20); Calcium 8.2 mg/dL (8.4-10.2); Carbon Dioxide 27 mmol/L (22-30); Chloride 108 mmol/L (98-107); Glucose 82 mg/dL (74-99); Potassium 4.3 mmol/L (3.5-5.1); Sodium 143 mmol/L (137-145)
[2018-04-10 12:48] LABS: Glucose,Whole Blood 93 mg/dL (75-99)
[2018-04-10] MEDS ORDERED: ACETAMINOPHEN IV (For NPO) 1,000 MG in EMPTY BAG 1 BAG IVPB STA (12:51)
[2018-04-10] MEDS ORDERED: ONDANSETRON 4 MG/2 ML VIAL IVP PRN (13:13)
--- NOTE | 2018-04-10 13:39 | P.PN ---
Subjective Progress Note Date: 04/10/18 Principal diagnosis: Weakness, dehydration, dizziness and lightheadedness, left lower lobe pneumonia Pulmonary consult dated 04/09/2018 This is a 57-year-old male evaluated in the emergency room for low blood oxygen level is low blood sugars dizziness and just not feeling well. He also apparently complained of weakness. He apparently recently had a prep for a colonoscopy. Subsequent to that, the patient is complaining of just not feeling well dizziness lightheadedness and some fevers and chills. The patient is not really complaining of any respiratory complaints at this time. No significant cough or chest congestion. Not coughing up any phlegm. No chest pain or chest pressure. No palpitation. No nausea vomiting or diarrhea. He apparently did have a low blood pressure recently. Currently, the patient seemed be resting comfortably in fact he was sleeping when I first went into the room. Appears not have any distress whatsoever. Not a particularly good historian so most of the history is obtained from the ER ruth. The chest x-ray apparently showed some bibasilar infiltrates possibly bit worse on the left than on the right. The patient apparently has a history of diabetes heart failure myocardial infarction sleep apnea syndrome pneumonia previous right parapneumonic effusion requiring chest tube drainage carpal. tunnel release shingles pancreatitis neuropathy previous MRSA infection bypass grafting heart catheterization with stent many additional surgical procedures. On 04/10/2018 patient seen again in follow-up. Resting comfortably in bed, appears a bit fatigued, T denies any acute distress though, denies any worsening dyspnea. On 2 L per nasal cannula pulse ox is 91-94%, patient has been afebrile for greater than 24 hours. Urine and blood cultures remain negative to date. No new chest x-rays today, today's labs were reviewed, no leukocytosis, WBC is 6.3, hemoglobin is 8.3, electrolytes and renal profile essentially within normal limits. Patient is being treated with empiric antibiotics, he is on a combination of Zithromax and Rocephin. Clinically improving. Objective - Vital Signs Vital signs: Vital Signs Temp 102.7 F H 04/10/18 12:55 Pulse 82 04/10/18 10:58 Resp 16 04/10/18 08:00 BP 108/63 04/10/18 06:20 Pulse Ox 91 L 04/10/18 06:20 Intake & Output 04/09/18 04/10/18 04/10/18 18:59 06:59 18:59 Weight 107 kg Other: Voiding Method Bedside Commode Urinal # Voids 3 2 # Bowel Movements 2 - Exam No acute distress, oriented 3. Looking older than his stated age of 57. HEENT examination is grossly unremarkable. Mucous membranes are moist. No oral lesions. Neck supple. Full range of motion. No adenopathy thyromegaly or neck vein distention. Cardiovascular examination reveals regular rhythm rate. S1-S2 normal. No S3 or S4. No discernible murmur noted. Heart sounds are distant. Lungs reveal mostly clear breath sounds. Breath sounds are equal bilaterally. There are a few scattered rhonchi. No wheezes or crackles. Abdomen soft bowel sounds are heard. No masses or tenderness. Extremities are intact. No cyanosis clubbing or edema. Skin is without rash or lesion. Neurologic examination is brief but nonfocal. - Labs CBC & Chem 7: 04/10/18 07:08 04/10/18 07:08 Labs: Abnormal Lab Results - Last 24 Hours (Table) 04/09/18 04/09/18 04/10/18 Range/Units 17:13 20:22 02:23 RBC (4.30-5.90) m/uL Hgb (13.0-17.5) gm/dL Hct (39.0-53.0) % MCV (80.0-100.0) fL MCH (25.0-35.0) pg MCHC (31.0-37.0) g/dL RDW (11.5-15.5) % Lymphocytes # (1.0-4.8) k/uL Chloride (98-107) mmol/L POC Glucose (mg/dL) 165 H 230 H 151 H (75-99) mg/dL Calcium (8.4-10.2) mg/dL 04/10/18 04/10/18 Range/Units 07:08 07:08 RBC 3.97 L (4.30-5.90) m/uL Hgb 8.3 L (13.0-17.5) gm/dL Hct 29.9 L (39.0-53.0) % MCV 75.3 L (80.0-100.0) fL MCH 21.0 L (25.0-35.0) pg MCHC 27.9 L (31.0-37.0) g/dL RDW 17.6 H (11.5-15.5) % Lymphocytes # 0.5 L (1.0-4.8) k/uL Chloride 108 H (98-107) mmol/L POC Glucose (mg/dL) (75-99) mg/dL Calcium 8.2 L (8.4-10.2) mg/dL Microbiology - Last 24 Hours (Table) 04/08/18 20:30 Blood Culture - Preliminary Blood No Growth after 24 hours 04/09/18 05:00 Urine Culture - Preliminary Urine,Clean Catch Assessment and Plan Plan: Assessment: Weakness, dehydration, dizziness and lightheadedness, which may relate to left lower lobe pneumonia. History of hypothyroidism History of hypertension History of GERD History of hyperlipidemia History of diabetes mellitus Adrenal insufficiency History of heart failure Previous history of myocardial infarction History of sleep apnea syndrome, currently on CPAP Previous history of pneumonia with parapneumonic effusion requiring chest tube drainage Previous history of shingles Previous bowel resection Status post bypass grafting Multiple other medical problems and comorbidities Plan: Continue current antibiotic coverage, ID service has now been consulted, cultures remain negative so far. The patient reports improvement of his dyspnea , not producing any phlegm. Continue DVT and GI prophylaxis, which her fever pattern, monitor labs. We'll continue to follow I performed a history & physical examination of the patient and discussed their management with my nurse practitioner, Janis Slater. I reviewed the nurse practitioner's note and agree with the documented findings and plan of care. Lung sounds are diminished. The findings and the impression was discussed with the patient. I attest to the documentation by the nurse practitioner. Time with Patient: Less than 30
--- NOTE | 2018-04-10 15:30 | PN ---
PROGRESS NOTE I am covering for Dr. Romero. DATE OF SERVICE: 04/10/2018 This is a 57-year-old gentleman who was admitted with bilateral infiltrates, also had some diarrhea. The patient had dehydration present on admission. Patient started on IV antibiotics. Pulmonary and Infectious Disease following the patient closely. PAST MEDICAL HISTORY: Reviewed. REVIEW OF SYSTEMS: CARDIOVASCULAR: No angina. RESPIRATORY: As mentioned earlier. GI: No nausea. : No dysuria. NERVOUS SYSTEM: As mentioned earlier. CURRENT MEDICATIONS ARE REVIEWED AND INCLUDE: 1. Tylenol 650 q.6 p.r.n. 2. [place] 10 mg q.4. 3. DuoNeb q.i.d. and p.r.n. 4. Norvasc 5 mg q.h.s. 5. Eliquis 5 mg p.o. b.i.d. 6. Lipitor 80 mg q.h.s. 8. Rocephin 1 g daily. 9. Cymbalta 30 mg p.o. b.i.d. 10.Lodine 400 mg b.i.d. 11.Duragesic patch 25 mcg q.72h. 12.Lasix 20 mg b.i.d. 13.Neurontin 800 mg q.i.d. 14.Cortef 20 mg q.a.m. 15.NovoLog q.a.c. and at bedtime. 16.Levemir 20 units subcu a.c. b.i.d. 17.Synthroid 50 mcg q.h.s. 18.Zestril 5 mg q.a.m. 19.Glucophage 1000 mg b.i.d. 20.Lopressor 25 mg b.i.d. 21.Singular 10 mg q.h.s. 22.Multivitamins 1 p.o. daily. 23.Nitrostat 0.4 sublingual. 24.Vitamin B complex. 25.Zofran 4 mg daily. 26.Protonix 40 mg. PHYSICAL EXAM: Patient is alert, oriented x2. Pulse is 72, blood pressure 100/60, respirations 16, temperature is 97.4, pulse ox 98% on 2 L. HEENT: Conjunctivae normal. NECK: No jugular venous distention. CARDIOVASCULAR SYSTEM: S1, S2, muffled. RESPIRATORY: Breath sounds diminished at the bases, a few scattered rhonchi, no crackles. ABDOMEN: Soft, nontender. No mass palpable. LEGS: No edema, no swelling. NERVOUS SYSTEM: Higher functions as mentioned earlier, moves all 4 extremities, no focal deficits. LYMPHATICS: No lymph node enlargement in the neck or axillae. SKIN: No ulcer, rash or bleeding. LABS: WBC 6.3, hemoglobin is 8.3. ASSESSMENT: 1. Sepsis. 2. Bilateral pneumonia, right more than the left, possibly gram-negative. 3. Diarrhea. 4. Dehydration. 5. Fever. 6. Elevated lactic acid. 7. Transaminitis with the etiology unknown. 8. Paroxysmal atrial fibrillation. 9. Coronary artery disease, coronary artery bypass grafting, stents. 10.Diabetes mellitus type 2. 11.Multiple hospital admissions with pneumonia and sepsis. 12.History of previous pneumonia, recurrent thoracotomy and chest tube placement. 13.History of sleep apnea. 14.One sepsis neck. 15.Previous cellulitis with methicillin-resistant Staphylococcus aureus. 16.Hyperlipidemia. 17.Degenerative joint disease. 18.Hypothyroid. 19.Obesity. 20.Hypomagnesemia. RECOMMENDATION: 1. Recommend continue with current management and symptomatic treatment. 2. Continue with the broad-spectrum IV antibiotics, bronchodilators with Pulmonary and Infectious Disease evaluation. The most recent cultures are negative. At this time I would recommend repeat labs. Patient is on Eliquis, medications reviewed. Further recommendations to follow. Will continue to monitor. MMODL / IJN: [id number] / CHRISTY
[2018-04-10 17:25] LABS: Glucose,Whole Blood 56 mg/dL (75-99)
[2018-04-10 17:40] LABS: Glucose,Whole Blood 67 mg/dL (75-99)
[2018-04-10 18:10] LABS: Glucose,Whole Blood 79 mg/dL (75-99)
[2018-04-10] MEDS: amLODIPine 5 MG TAB PO SCH (20:22)
[2018-04-10] MEDS: ATORVASTATIN 80 MG TAB PO SCH (20:23)
[2018-04-10] MEDS: LEVOTHYROXINE 50 MCG TAB PO SCH (20:24)
[2018-04-10] MEDS: MONTELUKAST 10 MG TAB PO SCH (20:24)
[2018-04-10] MEDS ORDERED: ACETAMINOPHEN IV (For NPO) 1,000 MG in EMPTY BAG 1 BAG IVPB ONE (20:29)
[2018-04-10 20:52] LABS: Glucose,Whole Blood 96 mg/dL (75-99)
[2018-04-10] MEDS ORDERED: VANCOMYCIN IV PER PHARMACY 1 EACH MISC MISCELLANE PRN (21:14)
[2018-04-10] MEDS: VANCOMYCIN 1,750 MG in SODIUM CHLORIDE 0.9% 500 ML IVPB SCH (22:45)
--- NOTE | 2018-04-10 23:53 | P.PN ---
Subjective Progress Note Date: 04/10/18 57-year-old male who is well-known to the infectious disease service because of his multiple bouts of sepsis. Earlier this year the patient was hospitalized for multifocal pneumonia and MRSA was isolated from his sputum. After hospitalization he had improvement in completed his course of oral trimethoprim sulfamethoxazole with good resolution. He has had difficulties in the past with diabetes mellitus type 2 with poor control, severe coronary artery disease with several myocardial infarctions and chronic polyneuropathy. He does have a known history of gout and psoriasis that has been very difficult to control over time but have been better as of late. He did have several admissions where he was having difficulties with lactic acidosis that was thought to be medication induced. She was preparing for colonoscopy and had several bouts of diarrhea prior to starting the prep. Then patient developed dizziness weakness and apparently low blood pressure with fever and chills. He was brought into [facility] emergency center for evaluation. His temperature max has been 100.8, white count of 13.7, CK 2958, AST 147 and ALT 155, troponin 0.025, magnesium 0.9 and has been replaced. Initial lactic acid 3.5 and repeat is 1.1 He is status post 2 L of IV fluid. Chest x-ray showed pulmonary infiltrate bilaterally slightly increased on the left and unchanged on the right. Patient was given ceftriaxone and azithromycin in the emergency center and subsequent admitted to the [facility] floor. Pulmonary medicine is also on consult. When asked, patient states that he has been using his BiPAP but according to nursing he had the centering the night for only a brief period. Patient has had no nausea, vomiting or diarrhea this morning. According to the shift nurse manager he did have some liquid stools. Stool studies ordered include a C. difficile toxin, Cryptosporidium, Giardia, rotavirus and stool culture. 04/10/2018 patient is now worse with onset of high fever and altered mental status and worsening hypoxia. Objective - Vital Signs Vital signs: Vital Signs Temp 99 F 04/10/18 22:52 Pulse 80 04/10/18 20:42 Resp 20 04/10/18 20:24 BP 127/80 04/10/18 20:20 Pulse Ox 92 L 04/10/18 20:24 Intake & Output 04/10/18 04/10/18 04/11/18 06:59 18:59 06:59 Weight 107 kg Other: Voiding Method Bedside Commode Urinal # Voids 2 2 0 - Exam Gen: This is a obese 57-year-old male. He is sitting up in bed. Respirations are even. Patient is very drowsy and falling asleep during exam. He does arouse to verbal stimuli. He can tell me his name, place and day of the week and answer basic questions. Breakfast tray is in front of him, patient is only eating a few bites of pancakes. HEENT: Head is atraumatic, normocephalic. Pupils equal, round. Sclerae is anicteric. Oral mucous membranes are slightly dry. No thrush noted. Patient is edentulous. NECK: Supple. No JVD. No lymphadenopathy. No thyromegaly. LUNGS: Clear to auscultation. No wheezes or rhonchi. No intercostal retractions. HEART: Regular rate and rhythm. No murmur. ABDOMEN: Soft. Bowel sounds are present. No masses. No tenderness. EXTREMITIES: 1+ pedal edema. Dorsalis pedis is weak bilaterally. John wraps were removed from both lower extremities, no significant skin lesions or open wounds. NEUROLOGICAL: Patient is arousable but slow seems comfortable, - Labs CBC & Chem 7: 04/10/18 07:08 04/10/18 07:08 Labs: Abnormal Lab Results - Last 24 Hours (Table) 04/10/18 04/10/18 04/10/18 Range/Units 02:23 07:08 07:08 RBC 3.97 L (4.30-5.90) m/uL Hgb 8.3 L (13.0-17.5) gm/dL Hct 29.9 L (39.0-53.0) % MCV 75.3 L (80.0-100.0) fL MCH 21.0 L (25.0-35.0) pg MCHC 27.9 L (31.0-37.0) g/dL RDW 17.6 H (11.5-15.5) % Lymphocytes # 0.5 L (1.0-4.8) k/uL Chloride 108 H (98-107) mmol/L POC Glucose (mg/dL) 151 H (75-99) mg/dL Calcium 8.2 L (8.4-10.2) mg/dL 04/10/18 04/10/18 Range/Units 17:18 17:38 RBC (4.30-5.90) m/uL Hgb (13.0-17.5) gm/dL Hct (39.0-53.0) % MCV (80.0-100.0) fL MCH (25.0-35.0) pg MCHC (31.0-37.0) g/dL RDW (11.5-15.5) % Lymphocytes # (1.0-4.8) k/uL Chloride (98-107) mmol/L POC Glucose (mg/dL) 56 L 67 L (75-99) mg/dL Calcium (8.4-10.2) mg/dL Microbiology - Last 24 Hours (Table) 04/09/18 05:00 Urine Culture - Final Urine,Clean Catch 04/08/18 20:30 Blood Culture - Preliminary Blood No Growth after 24 hours Laboratory Results WBC 6.3 k/uL (3.8-10.6) 04/10/18 07:08 RBC 3.97 m/uL (4.30-5.90) L 04/10/18 07:08 Hgb 8.3 gm/dL (13.0-17.5) L 04/10/18 07:08 Hct 29.9 % (39.0-53.0) L 04/10/18 07:08 MCV 75.3 fL (80.0-100.0) L 04/10/18 07:08 MCH 21.0 pg (25.0-35.0) L 04/10/18 07:08 MCHC 27.9 g/dL (31.0-37.0) L 04/10/18 07:08 RDW 17.6 % (11.5-15.5) H 04/10/18 07:08 Plt Count 191 k/uL (150-450) 04/10/18 07:08 Neutrophils % 79 % 04/10/18 07:08 Lymphocytes % 9 % 04/10/18 07:08 Monocytes % 5 % 04/10/18 07:08 Eosinophils % 4 % 04/10/18 07:08 Basophils % 1 % 04/10/18 07:08 Neutrophils # 5.0 k/uL (1.3-7.7) 04/10/18 07:08 Lymphocytes # 0.5 k/uL (1.0-4.8) L 04/10/18 07:08 Monocytes # 0.3 k/uL (0-1.0) 04/10/18 07:08 Eosinophils # 0.3 k/uL (0-0.7) 04/10/18 07:08 Basophils # 0.0 k/uL (0-0.2) 04/10/18 07:08 Hypochromasia Marked 04/10/18 07:08 Poikilocytosis Slight 04/10/18 07:08 Anisocytosis Slight 04/10/18 07:08 Microcytosis Slight 04/10/18 07:08 PT 10.9 sec (9.0-12.0) 04/08/18 20:15 INR 1.1 (<1.2) 04/08/18 20:15 APTT 19.2 sec (22.0-30.0) L 04/08/18 20:15 Sodium 143 mmol/L (137-145) 04/10/18 07:08 Potassium 4.3 mmol/L (3.5-5.1) 04/10/18 07:08 Chloride 108 mmol/L (98-107) H 04/10/18 07:08 Carbon Dioxide 27 mmol/L (22-30) 04/10/18 07:08 Anion Gap 8 mmol/L 04/10/18 07:08 BUN 19 mg/dL (9-20) 04/10/18 07:08 Creatinine 0.92 mg/dL (0.66-1.25) 04/10/18 07:08 Est GFR (CKD-EPI)AfAm >90 (>60 ml/min/1.73 sqM) 04/10/18 07:08 Est GFR (CKD-EPI)NonAf >90 (>60 ml/min/1.73 sqM) 04/10/18 07:08 Glucose 82 mg/dL (74-99) 04/10/18 07:08 POC Glucose (mg/dL) 96 mg/dL (75-99) 04/10/18 20:50 POC Glu Account Contact Associate ID Judith Gomez 04/10/18 20:50 Lactic Ac Sepsis Rflx Y 04/08/18 20:49 Plasma Lactic Acid Freddy 0.9 mmol/L (0.7-2.0) 04/10/18 17:48 Calcium 8.2 mg/dL (8.4-10.2) L 04/10/18 07:08 Phosphorus 4.3 mg/dL (2.5-4.5) 04/08/18 20:15 Magnesium 1.7 mg/dL (1.6-2.3) 04/09/18 08:57 Total Bilirubin 0.4 mg/dL (0.2-1.3) 04/09/18 08:57 AST 94 U/L (17-59) H 04/09/18 08:57 ALT 123 U/L (21-72) H 04/09/18 08:57 Alkaline Phosphatase 83 U/L (38-126) 04/09/18 08:57 Total Creatine Kinase 2958 U/L (55-170) H 04/08/18 20:15 CK-MB (CK-2) 25.6 ng/mL (0.0-2.4) H* 04/08/18 20:15 CK-MB (CK-2) Rel Index 04/08/18 20:15 Troponin I 0.025 ng/mL (0.000-0.034) 04/08/18 20:15 Total Protein 5.9 g/dL (6.3-8.2) L 04/09/18 08:57 Albumin 3.2 g/dL (3.5-5.0) L 04/09/18 08:57 Urine Color Yellow 04/09/18 05:00 Urine Appearance Clear (Clear) 04/09/18 05:00 Urine pH 5.5 (5.0-8.0) 04/09/18 05:00 Ur Specific [place] 1.012 (1.001-1.035) 04/09/18 05:00 Urine Protein 1+ (Negative) H 04/09/18 05:00 Urine Glucose (UA) Negative (Negative) 04/09/18 05:00 Urine Ketones Negative (Negative) 04/09/18 05:00 Urine Blood Negative (Negative) 04/09/18 05:00 Urine Nitrite Negative (Negative) 04/09/18 05:00 Urine Bilirubin Negative (Negative) 04/09/18 05:00 Urine Urobilinogen <2.0 mg/dL (<2.0) 04/09/18 05:00 Ur Leukocyte Esterase Negative (Negative) 04/09/18 05:00 Urine RBC <1 /hpf (0-5) 04/09/18 05:00 Urine WBC <1 /hpf (0-5) 04/09/18 05:00 Ur Squamous Epith Cells <1 /hpf (0-4) 04/09/18 05:00 Hyaline Casts 3 /lpf (0-2) H 04/09/18 05:00 Urine Mucus Rare /hpf (None) H 04/09/18 05:00 Microbiology 04/09/18 05:00 Urine,Clean Catch Urine Culture - Final 04/08/18 20:30 Blood Blood Culture - Preliminary No Growth after 24 hours Assessment and Plan (1) Fever Narrative/Plan: This pleasant 57-year-old gentleman is well-known to the service of multiple hospitalizations. Presents now with significant weakness and dizziness and lactic acidosis occurring after onset of copious diarrhea after prep for his colonoscopy. With hydration the patient is feeling slightly better at this time. The patient's chest x-ray was with some minimal change from the most recent x-ray with potential atelectasis or infiltrate. With his illness antibiotic therapy with ceftriaxone and azithromycin was started with concerns pneumonia. Cultures are currently in process are awaited. With hydration the patient is urged to feel considerably better. He also is having significant bilateral lower extremity edema. The patient relates that he spends a great deal of his time sitting upright in a chair, with his legs in a dependent position which of course worsens his edema. He does wrap them at times. It is noted since coming to Hospital, having legs elevated and wraps in place he is remarkably improved. There is no significant cellulitis with ulcers in the legs at this time. The plan for now will be to monitor for any other evidence of infection, will hopefully limit his antibiotic therapy. We'll need input from gastroenterology possibly as an outpatient as to the next plan given that he has ongoing significant anemia and endoscopy was being performed to evaluate for a source of his anemia but had a significant difficulty with the prep with the profuse diarrhea resulting in weakness, volume contracture and dehydration induced lactic acidosis. As noted he was 8.4 and does not need transfusion at this time. 04/10/2018 patient is worse today withincreasing fever. With this further cultures are requested, intravenous Tylenol and addition of vancomycin is performed.patient does have a history of MRSA pneumonia and with chest xray concern to pneumonia especially with the fever is updated Current Visit: Yes Status: Acute Code(s): R50.9 - FEVER, UNSPECIFIED SNOMED Code(s): 982612060 (2) Weakness Current Visit: Yes Status: Acute Code(s): R53.1 - WEAKNESS SNOMED Code(s) : 75524792 (3) Pneumonia Current Visit: No Status: Acute Code(s): J18.9 - PNEUMONIA, UNSPECIFIED ORGANISM SNOMED Code(s): 392603831
[2018-04-11] MEDS: HYDROcodone/APAP 10-325MG 1 EACH TAB PO PRN ×6 (01:39→21:57)
[2018-04-11 02:15] LABS: Glucose,Whole Blood 71 mg/dL (75-99)
[2018-04-11] MEDS: ACETAMINOPHEN TAB 325 MG TAB PO PRN (05:43)
[2018-04-11 07:15] LABS: Glucose,Whole Blood 114 mg/dL (75-99)
[2018-04-11] MEDS: INSULIN ASPART 100 UNIT/ML 1 ML 10 ML VIAL SQ SCH ×4 (07:33→21:10)
[2018-04-11] MEDS: INSULIN DETEMIR 100 UNIT/ML 10 ML VIAL SQ SCH ×2 (07:34→21:09)
[2018-04-11] MEDS: cefTRIAXone IN SWFI 1,000 MG/10 ML SYRINGE IVP SCH (07:41)
[2018-04-11] MEDS: METOPROLOL TARTRATE 25 MG TAB PO SCH ×3 (07:43→21:08)
[2018-04-11] MEDS: PANTOPRAZOLE 40 MG TABLET PO SCH (07:43)
[2018-04-11] MEDS: APIXABAN 5 MG TAB PO SCH ×3 (07:43→21:08)
[2018-04-11] MEDS: metFORMIN 500 MG TAB PO SCH ×2 (07:43→17:48)
[2018-04-11] MEDS: HYDROCORTISONE 20 MG TAB PO SCH (07:43)
[2018-04-11] MEDS: MULTIVITAMINS, THERA 1 EACH TAB PO SCH (07:43)
[2018-04-11] MEDS: FUROSEMIDE 20 MG TAB PO SCH (07:43)
[2018-04-11] MEDS: VANCOMYCIN 1,750 MG in SODIUM CHLORIDE 0.9% 500 ML IVPB SCH ×2 (07:43→20:29)
[2018-04-11] MEDS: IPRATROPIUM-ALBUTEROL 3 ML NEB INHALATION SCH ×4 (07:43→20:43)
[2018-04-11] MEDS: LISINOPRIL 5 MG TAB PO SCH (07:43)
[2018-04-11] MEDS: DULoxetine HCL 30 MG CAPSULE.DR PO SCH ×3 (07:43→21:08)
[2018-04-11] MEDS: AZITHROMYCIN 500 MG TAB PO SCH (07:43)
[2018-04-11] MEDS: GABAPENTIN 400 MG CAP PO SCH ×5 (07:43→21:08)
[2018-04-11] MEDS: NON-FORMULARY DRUG (Vitamin B Complex [Vitamin B Complex] 1 CAP) PO SCH (07:44)
[2018-04-11] MEDS: ETODOLAC 400 MG TAB PO SCH ×2 (08:19→20:37)
--- NOTE | 2018-04-11 11:52 | P.PN ---
Subjective Progress Note Date: 04/11/18 Principal diagnosis: Weakness, dehydration, dizziness and lightheadedness, left lower lobe pneumonia Pulmonary consult dated 04/09/2018 This is a 57-year-old male evaluated in the emergency room for low blood oxygen level is low blood sugars dizziness and just not feeling well. He also apparently complained of weakness. He apparently recently had a prep for a colonoscopy. Subsequent to that, the patient is complaining of just not feeling well dizziness lightheadedness and some fevers and chills. The patient is not really complaining of any respiratory complaints at this time. No significant cough or chest congestion. Not coughing up any phlegm. No chest pain or chest pressure. No palpitation. No nausea vomiting or diarrhea. He apparently did have a low blood pressure recently. Currently, the patient seemed be resting comfortably in fact he was sleeping when I first went into the room. Appears not have any distress whatsoever. Not a particularly good historian so most of the history is obtained from the ER ruth. The chest x-ray apparently showed some bibasilar infiltrates possibly bit worse on the left than on the right. The patient apparently has a history of diabetes heart failure myocardial infarction sleep apnea syndrome pneumonia previous right parapneumonic effusion requiring chest tube drainage carpal. tunnel release shingles pancreatitis neuropathy previous MRSA infection bypass grafting heart catheterization with stent many additional surgical procedures. On 04/10/2018 patient seen again in follow-up. Resting comfortably in bed, appears a bit fatigued, T denies any acute distress though, denies any worsening dyspnea. On 2 L per nasal cannula pulse ox is 91-94%, patient has been afebrile for greater than 24 hours. Urine and blood cultures remain negative to date. No new chest x-rays today, today's labs were reviewed, no leukocytosis, WBC is 6.3, hemoglobin is 8.3, electrolytes and renal profile essentially within normal limits. Patient is being treated with empiric antibiotics, he is on a combination of Zithromax and Rocephin. Clinically improving. On 04/11/2018 patient seen in follow-up on medical surgical floor. More awake on today's exam. Denies any worsening dyspnea. Patient continues to have fevers, T-max in the last 24 hours was 101.2F. No new labs today. Urine and blood cultures are negative to date. Means on 4 L per nasal cannula with pulse ox of 92 percent. Does wear BiPAP at night. Lung sounds are positive for scattered rhonchi, and rales at the bases, a combination of Rocephin, Zithromax , and vancomycin. he did have some diarrhea, does with tested for C. diff, and other stool studies. ID service is following. Objective - Vital Signs Vital signs: Vital Signs Temp 100.7 F H 04/11/18 09:22 Pulse 68 04/11/18 11:31 Resp 16 04/11/18 11:31 BP 157/56 04/11/18 07:00 Pulse Ox 92 L 04/11/18 07:00 Intake & Output 04/10/18 04/11/18 04/11/18 18:59 06:59 18:59 Output Total 750 Balance -750 Weight 97 kg Output: Urine 750 Other: Voiding Method Bedside Commode Urinal # Voids 2 0 - Exam No acute distress, oriented 3. Looking older than his stated age of 57. HEENT examination is grossly unremarkable. Mucous membranes are moist. No oral lesions. Neck supple. Full range of motion. No adenopathy thyromegaly or neck vein distention. Cardiovascular examination reveals regular rhythm rate. S1-S2 normal. No S3 or S4. No discernible murmur noted. Heart sounds are distant. Lungs reveal diffuse rhonchi, and bibasilar crackles Abdomen soft bowel sounds are heard. No masses or tenderness. Extremities are intact. No cyanosis clubbing or edema. Skin is without rash or lesion. Neurologic examination is brief but nonfocal. - Labs CBC & Chem 7: 04/10/18 07:08 04/10/18 07:08 Labs: Abnormal Lab Results - Last 24 Hours (Table) 04/10/18 04/10/18 04/11/18 Range/Units 17:18 17:38 02:14 POC Glucose (mg/dL) 56 L 67 L 71 L (75-99) mg/dL 04/11/18 Range/Units 07:03 POC Glucose (mg/dL) 114 H (75-99) mg/dL Microbiology - Last 24 Hours (Table) 04/08/18 20:30 Blood Culture - Preliminary Blood No Growth after 48 hours 04/09/18 05:00 Urine Culture - Final Urine,Clean Catch Assessment and Plan Plan: Assessment: Weakness, dehydration, dizziness and lightheadedness, which may relate to left lower lobe pneumonia. History of hypothyroidism History of hypertension History of GERD History of hyperlipidemia History of diabetes mellitus Adrenal insufficiency History of heart failure Previous history of myocardial infarction History of sleep apnea syndrome, currently on CPAP Previous history of pneumonia with parapneumonic effusion requiring chest tube drainage Previous history of shingles Previous bowel resection Status post bypass grafting Multiple other medical problems and comorbidities Plan: Continue antibiotic coverage per ID service recommendations, we'll give the patient couple doses of IV diuretics, will obtain repeat chest x-ray in the morning. Continue BiPAP support at night, and as needed during the day. Continue current medical treatment. Nebulized bronchodilators. I performed a history & physical examination of the patient and discussed their management with my nurse practitioner, Janis Slater. I reviewed the nurse practitioner's note and agree with the documented findings and plan of care. Lung sounds are diminished, scattered rhonchi and rales. The findings and the impression was discussed with the patient. I attest to the documentation by the nurse practitioner. Time with Patient: Less than 30
[2018-04-11 11:58] LABS: Glucose,Whole Blood 159 mg/dL (75-99)
[2018-04-11] MEDS: FUROSEMIDE 10 MG/ML 4 ML VIAL IV SCH ×2 (12:39→16:19)
[2018-04-11 17:28] LABS: Glucose,Whole Blood 192 mg/dL (75-99)
--- NOTE | 2018-04-11 18:07 | PN ---
PROGRESS NOTE DATE OF SERVICE: 04/11/2013. I am covering for Dr. Romero. This 57-year-old gentleman admitted with bilateral infiltrative pneumonia is being closely monitored. Patient still has significant shortness of breath. Dr. Hardin and Dr. Soto following the patient closely. No chest pain. No palpitations. EXAM: Alert and oriented x2. Pulse 74, blood pressure 114/69, respirations 18, temperature 98 degrees, pulse ox 94% on 2L. HEENT: Conjunctivae normal. NECK: No jugular venous distention. CARDIOVASCULAR: S1, S2 muffled. RESPIRATORY: Breath sounds diminished in the bases. A few scattered rhonchi and crackles. ABDOMEN: Soft, nontender. No mass palpable. LEGS: No edema. No swelling. NERVOUS SYSTEM: Higher functions as mentioned earlier. Moves all 4 limbs. No focal motor or sensory deficits. LYMPHATIC: No lymphadenopathy in neck or axillae. SKIN: No ulcer, rash or bleeding. LABS: At this time show WBC 6.2, hemoglobin is 8.3. ASSESSMENT: 1. Bilateral pneumonia, right more than left, with possibly gram-negative with sepsis. 2. Diarrhea and dehydration. 3. Fever. 4. Elevated lactic acid. 5. Transaminitis with etiology unknown. 6. Paroxysmal atrial fibrillation. 7. Coronary artery disease, coronary artery bypass graft, stents. 8. Diabetes mellitus type 2. 9. Multiple hospital admissions with pneumonia, sepsis in the past. 10.History of previous pneumonia, recurrent, thoracotomy and chest tube placement. 11.History of sleep apnea. 12.Previous cellulitis with methicillin-resistant Staphylococcus aureus. 13.Hyperlipidemia. 14.Degenerative joint disease. 15.Hypothyroidism. 16.Obesity. 17.Hypomagnesemia. RECOMMENDATIONS AND DISCUSSION: Recommend to continue current medical management and symptomatic treatment. Otherwise, patient will continue the broad-spectrum IV antibiotics. Continue with the bronchodilators. Closely follow with multiple consultants at this time. Otherwise, the cultures are negative so far. Prognosis guarded. Further recommendations to follow. MMODL / IJN: [id number] /
[2018-04-11] MEDS: ATORVASTATIN 80 MG TAB PO SCH ×2 (20:29→21:08)
[2018-04-11] MEDS: MONTELUKAST 10 MG TAB PO SCH ×2 (20:29→21:08)
[2018-04-11] MEDS: amLODIPine 5 MG TAB PO SCH ×2 (20:29→21:08)
[2018-04-11] MEDS: LEVOTHYROXINE 50 MCG TAB PO SCH ×2 (20:30→21:08)
[2018-04-11 20:51] LABS: Glucose,Whole Blood 192 mg/dL (75-99)
--- NOTE | 2018-04-11 23:34 | P.PN ---
Subjective Progress Note Date: 04/11/18 57-year-old male who is well-known to the infectious disease service because of his multiple bouts of sepsis. Earlier this year the patient was hospitalized for multifocal pneumonia and MRSA was isolated from his sputum. After hospitalization he had improvement in completed his course of oral trimethoprim sulfamethoxazole with good resolution. He has had difficulties in the past with diabetes mellitus type 2 with poor control, severe coronary artery disease with several myocardial infarctions and chronic polyneuropathy. He does have a known history of gout and psoriasis that has been very difficult to control over time but have been better as of late. He did have several admissions where he was having difficulties with lactic acidosis that was thought to be medication induced. She was preparing for colonoscopy and had several bouts of diarrhea prior to starting the prep. Then patient developed dizziness weakness and apparently low blood pressure with fever and chills. He was brought into [facility] emergency center for evaluation. His temperature max has been 100.8, white count of 13.7, CK 2958, AST 147 and ALT 155, troponin 0.025, magnesium 0.9 and has been replaced. Initial lactic acid 3.5 and repeat is 1.1 He is status post 2 L of IV fluid. Chest x-ray showed pulmonary infiltrate bilaterally slightly increased on the left and unchanged on the right. Patient was given ceftriaxone and azithromycin in the emergency center and subsequent admitted to the [facility] floor. Pulmonary medicine is also on consult. When asked, patient states that he has been using his BiPAP but according to nursing he had the centering the night for only a brief period. Patient has had no nausea, vomiting or diarrhea this morning. According to the photovoltaic technician he did have some liquid stools. Stool studies ordered include a C. difficile toxin, Cryptosporidium, Giardia, rotavirus and stool culture. 04/10/2018 patient is now worse with onset of high fever and altered mental status and worsening hypoxia. 04/11/2018 patient has had slight improvement this afternoon. His fever of 101.2 during the day has now declined to 99. He is much more awake and alert. Has been wearing his CPAP throughout the day with some improvement of his mental status. He does relate he feels better this evening. He is able to sit upright and utilize his urinal without difficulties and then start to eat his dinner. Objective - Vital Signs Vital signs: Vital Signs Temp 101.0 F H 04/11/18 22:30 Pulse 75 04/11/18 22:30 Resp 18 04/11/18 22:30 BP 120/77 04/11/18 22:30 Pulse Ox 90 L 04/11/18 22:30 Intake & Output 04/11/18 04/11/18 04/12/18 06:59 18:59 06:59 Output Total 750 Balance -750 Weight 97 kg 97 kg Output: Urine 750 Other: Voiding Method Bedside Commode Bedside Commode Urinal Urinal # Voids 0 3 # Bowel Movements 0 0 - Exam Gen: This is a obese 57-year-old male. More awake and alert today. Was able to sit upright utilizes urinal and started to eat his dinner without difficulties. He recognizes me by name without difficulties HEENT: Head is atraumatic, normocephalic. Pupils equal, round. Sclerae is anicteric. Oral mucous membranes are slightly dry. No thrush noted. Patient is edentulous. NECK: Supple. No JVD. No lymphadenopathy. No thyromegaly. LUNGS: Clear to auscultation. No wheezes or rhonchi. No intercostal retractions. HEART: Regular rate and rhythm. No murmur. ABDOMEN: Soft. Bowel sounds are present. No masses. No tenderness. EXTREMITIES: 1+ pedal edema. Dorsalis pedis is weak bilaterally. John wraps were removed from both lower extremities, no significant skin lesions or open wounds. NEUROLOGICAL: Much more awake alert and interactive no acute deficits noted - Labs CBC & Chem 7: 04/10/18 07:08 04/10/18 07:08 Labs: Abnormal Lab Results - Last 24 Hours (Table) 04/11/18 04/11/18 04/11/18 Range/Units 02:14 07:03 11:54 POC Glucose (mg/dL) 71 L 114 H 159 H (75-99) mg/dL 04/11/18 04/11/18 Range/Units 17:16 20:47 POC Glucose (mg/dL) 192 H 192 H (75-99) mg/dL Microbiology - Last 24 Hours (Table) 04/10/18 13:27 Blood Culture - Preliminary Blood No Growth after 24 hours 04/08/18 20:30 Blood Culture - Preliminary Blood No Growth after 48 hours Laboratory Results WBC 6.3 k/uL (3.8-10.6) 04/10/18 07:08 RBC 3.97 m/uL (4.30-5.90) L 04/10/18 07:08 Hgb 8.3 gm/dL (13.0-17.5) L 04/10/18 07:08 Hct 29.9 % (39.0-53.0) L 04/10/18 07:08 MCV 75.3 fL (80.0-100.0) L 04/10/18 07:08 MCH 21.0 pg (25.0-35.0) L 04/10/18 07:08 MCHC 27.9 g/dL (31.0-37.0) L 04/10/18 07:08 RDW 17.6 % (11.5-15.5) H 04/10/18 07:08 Plt Count 191 k/uL (150-450) 04/10/18 07:08 Neutrophils % 79 % 04/10/18 07:08 Lymphocytes % 9 % 04/10/18 07:08 Monocytes % 5 % 04/10/18 07:08 Eosinophils % 4 % 04/10/18 07:08 Basophils % 1 % 04/10/18 07:08 Neutrophils # 5.0 k/uL (1.3-7.7) 04/10/18 07:08 Lymphocytes # 0.5 k/uL (1.0-4.8) L 04/10/18 07:08 Monocytes # 0.3 k/uL (0-1.0) 04/10/18 07:08 Eosinophils # 0.3 k/uL (0-0.7) 04/10/18 07:08 Basophils # 0.0 k/uL (0-0.2) 04/10/18 07:08 Hypochromasia Marked 04/10/18 07:08 Poikilocytosis Slight 04/10/18 07:08 Anisocytosis Slight 04/10/18 07:08 Microcytosis Slight 04/10/18 07:08 PT 10.9 sec (9.0-12.0) 04/08/18 20:15 INR 1.1 (<1.2) 04/08/18 20:15 APTT 19.2 sec (22.0-30.0) L 04/08/18 20:15 Sodium 143 mmol/L (137-145) 04/10/18 07:08 Potassium 4.3 mmol/L (3.5-5.1) 04/10/18 07:08 Chloride 108 mmol/L (98-107) H 04/10/18 07:08 Carbon Dioxide 27 mmol/L (22-30) 04/10/18 07:08 Anion Gap 8 mmol/L 04/10/18 07:08 BUN 19 mg/dL (9-20) 04/10/18 07:08 Creatinine 0.92 mg/dL (0.66-1.25) 04/10/18 07:08 Est GFR (CKD-EPI)AfAm >90 (>60 ml/min/1.73 sqM) 04/10/18 07:08 Est GFR (CKD-EPI)NonAf >90 (>60 ml/min/1.73 sqM) 04/10/18 07:08 Glucose 82 mg/dL (74-99) 04/10/18 07:08 POC Glucose (mg/dL) 192 mg/dL (75-99) H 04/11/18 20:47 POC Glu Associate Media Director ID Liss Parker 04/11/18 20:47 Lactic Ac Sepsis Rflx Y 04/08/18 20:49 Plasma Lactic Acid Freddy 0.9 mmol/L (0.7-2.0) 04/10/18 17:48 Calcium 8.2 mg/dL (8.4-10.2) L 04/10/18 07:08 Phosphorus 4.3 mg/dL (2.5-4.5) 04/08/18 20:15 Magnesium 1.7 mg/dL (1.6-2.3) 04/09/18 08:57 Total Bilirubin 0.4 mg/dL (0.2-1.3) 04/09/18 08:57 AST 94 U/L (17-59) H 04/09/18 08:57 ALT 123 U/L (21-72) H 04/09/18 08:57 Alkaline Phosphatase 83 U/L (38-126) 04/09/18 08:57 Total Creatine Kinase 2958 U/L (55-170) H 04/08/18 20:15 CK-MB (CK-2) 25.6 ng/mL (0.0-2.4) H* 04/08/18 20:15 CK-MB (CK-2) Rel Index 04/08/18 20:15 Troponin I 0.025 ng/mL (0.000-0.034) 04/08/18 20:15 Total Protein 5.9 g/dL (6.3-8.2) L 04/09/18 08:57 Albumin 3.2 g/dL (3.5-5.0) L 04/09/18 08:57 Urine Color Yellow 04/09/18 05:00 Urine Appearance Clear (Clear) 04/09/18 05:00 Urine pH 5.5 (5.0-8.0) 04/09/18 05:00 Ur Specific [place] 1.012 (1.001-1.035) 04/09/18 05:00 Urine Protein 1+ (Negative) H 04/09/18 05:00 Urine Glucose (UA) Negative (Negative) 04/09/18 05:00 Urine Ketones Negative (Negative) 04/09/18 05:00 Urine Blood Negative (Negative) 04/09/18 05:00 Urine Nitrite Negative (Negative) 04/09/18 05:00 Urine Bilirubin Negative (Negative) 04/09/18 05:00 Urine Urobilinogen <2.0 mg/dL (<2.0) 04/09/18 05:00 Ur Leukocyte Esterase Negative (Negative) 04/09/18 05:00 Urine RBC <1 /hpf (0-5) 04/09/18 05:00 Urine WBC <1 /hpf (0-5) 04/09/18 05:00 Ur Squamous Epith Cells <1 /hpf (0-4) 04/09/18 05:00 Hyaline Casts 3 /lpf (0-2) H 04/09/18 05:00 Urine Mucus Rare /hpf (None) H 04/09/18 05:00 Microbiology 04/10/18 13:27 Blood Blood Culture - Preliminary No Growth after 24 hours 04/08/18 20:30 Blood Blood Culture - Preliminary No Growth after 48 hours 04/09/18 05:00 Urine,Clean Catch Urine Culture - Final Assessment and Plan (1) Fever Narrative/Plan: This pleasant 57-year-old gentleman is well-known to the service of multiple hospitalizations. Presents now with significant weakness and dizziness and lactic acidosis occurring after onset of copious diarrhea after prep for his colonoscopy. With hydration the patient is feeling slightly better at this time. The patient's chest x-ray was with some minimal change from the most recent x-ray with potential atelectasis or infiltrate. With his illness antibiotic therapy with ceftriaxone and azithromycin was started with concerns pneumonia. Cultures are currently in process are awaited. With hydration the patient is urged to feel considerably better. He also is having significant bilateral lower extremity edema. The patient relates that he spends a great deal of his time sitting upright in a chair, with his legs in a dependent position which of course worsens his edema. He does wrap them at times. It is noted since coming to Hospital, having legs elevated and wraps in place he is remarkably improved. There is no significant cellulitis with ulcers in the legs at this time. The plan for now will be to monitor for any other evidence of infection, will hopefully limit his antibiotic therapy. We'll need input from gastroenterology possibly as an outpatient as to the next plan given that he has ongoing significant anemia and endoscopy was being performed to evaluate for a source of his anemia but had a significant difficulty with the prep with the profuse diarrhea resulting in weakness, volume contracture and dehydration induced lactic acidosis. As noted he was 8.4 and does not need transfusion at this time. 04/10/2018 patient is worse today withincreasing fever. With this further cultures are requested, intravenous Tylenol and addition of vancomycin is performed.patient does have a history of MRSA pneumonia and with chest xray concern to pneumonia especially with the fever is updated 04/11/2018 patient has improved today. Fever this afternoon has started to improve after the higher fever of earlier in the day. Mentations improving. Seems more comfortable. White count is 6.3. Cultures are pending. With his history is concerns to ongoing pneumonia possibly MRSA pneumonia. Is on multiple antibiotic therapy includes vancomycin was added yesterday with concerns to pneumonia. Follow-up chest x-ray and pulmonary consult follow-up are in progress. Patient states she's feeling better this afternoon. Current Visit: Yes Status: Acute Code(s): R50.9 - FEVER, UNSPECIFIED SNOMED Code(s): 533254178 (2) Weakness Current Visit: Yes Status: Acute Code(s): R53.1 - WEAKNESS SNOMED Code(s) : 27982563 (3) Pneumonia Current Visit: No Status: Acute Code(s): J18.9 - PNEUMONIA, UNSPECIFIED ORGANISM SNOMED Code(s): 587922054
[2018-04-12 02:15] LABS: Glucose,Whole Blood 110 mg/dL (75-99)
[2018-04-12 06:19] LABS: Glucose,Whole Blood 121 mg/dL (75-99)
--- NOTE | 2018-04-12 07:10 | XR ---
EXAMINATION TYPE: XR chest 2V DATE OF EXAM: 04/12/2018 HISTORY: shortness of breath. REFERENCE: Previous study dated 04/09/2018. FINDINGS: There has been a previous midline sternotomy. The patient's head projects over the upper chest. There is worsening right basilar airspace disease. And also some left basilar airspace disease. The h eart is enlarged. There is mild vascular congestion. No definite pleural fluid is seen. IMPRESSION: WORSENING BIBASILAR AIRSPACE DISEASE.
[2018-04-12] MEDS: IPRATROPIUM-ALBUTEROL 3 ML NEB INHALATION SCH ×4 (07:29→20:14)
[2018-04-12 07:44] LABS: Glucose,Whole Blood 161 mg/dL (75-99)
[2018-04-12] MEDS: FUROSEMIDE 20 MG TAB PO SCH ×2 (08:14→15:13)
[2018-04-12] MEDS: HYDROCORTISONE 20 MG TAB PO SCH (08:14)
[2018-04-12] MEDS: APIXABAN 5 MG TAB PO SCH ×2 (08:14→19:39)
[2018-04-12] MEDS: METOPROLOL TARTRATE 25 MG TAB PO SCH ×2 (08:14→19:41)
[2018-04-12] MEDS: LISINOPRIL 5 MG TAB PO SCH (08:14)
[2018-04-12] MEDS: AZITHROMYCIN 500 MG TAB PO SCH (08:14)
[2018-04-12] MEDS: ETODOLAC 400 MG TAB PO SCH ×2 (08:14→19:39)
[2018-04-12] MEDS: metFORMIN 500 MG TAB PO SCH ×2 (08:14→17:14)
[2018-04-12] MEDS: GABAPENTIN 400 MG CAP PO SCH ×4 (08:14→19:38)
[2018-04-12 08:15] LABS: Anisocytosis Slight; Basophils % (A) 0 %; Eosinophils # (A) 0.2 k/uL (0-0.7); Eosinophils % (A) 2 %; HCT 32.2 % (39.0-53.0); HGB 8.6 gm/dL (13.0-17.5); Hypochromasia Marked; Lymphocytes # (A) 0.6 k/uL (1.0-4.8); Lymphocytes % (A) 6 %; MCH 19.8 pg (25.0-35.0); MCHC 26.8 g/dL (31.0-37.0); MCV 73.8 fL (80.0-100.0); Mean Platelet Volume 7.3; Microcytosis Moderate; Monocytes # (A) 0.5 k/uL (0-1.0); Monocytes % (A) 5 %; Neutrophils # (A) 8.5 k/uL (1.3-7.7); Neutrophils % (A) 84 %; Platelet Count 244 k/uL (150-450); Poikilocytosis Slight; RBC 4.37 m/uL (4.30-5.90); RDW 17.8 % (11.5-15.5); WBC 10.2 k/uL (3.8-10.6)
[2018-04-12] MEDS: ACETAMINOPHEN TAB 325 MG TAB PO PRN (08:15)
[2018-04-12] MEDS: PANTOPRAZOLE 40 MG TABLET PO SCH (08:15)
[2018-04-12] MEDS: DULoxetine HCL 30 MG CAPSULE.DR PO SCH ×2 (08:15→19:38)
[2018-04-12] MEDS: INSULIN DETEMIR 100 UNIT/ML 10 ML VIAL SQ SCH ×2 (08:15→21:21)
[2018-04-12] MEDS: INSULIN ASPART 100 UNIT/ML 1 ML 10 ML VIAL SQ SCH ×4 (08:16→21:20)
[2018-04-12] MEDS: NON-FORMULARY DRUG (Vitamin B Complex [Vitamin B Complex] 1 CAP) PO SCH (08:16)
[2018-04-12 08:27] LABS: Calcium 8.3 mg/dL (8.4-10.2); Potassium 4.1 mmol/L (3.5-5.1)
[2018-04-12] MEDS: MULTIVITAMINS, THERA 1 EACH TAB PO SCH (11:15)
[2018-04-12] MEDS: cefTRIAXone IN SWFI 1,000 MG/10 ML SYRINGE IVP SCH (11:15)
[2018-04-12] MEDS: VANCOMYCIN 1,750 MG in SODIUM CHLORIDE 0.9% 500 ML IVPB SCH ×2 (11:15→21:05)
--- NOTE | 2018-04-12 11:34 | P.PN ---
Subjective Progress Note Date: 04/12/18 Principal diagnosis: Pneumonia Progress note dated 04/12/2018 57-year-old male admitted with a diagnosis of bilateral pneumonia. His symptoms started as left lower lobe pneumonia but has progressed. His chest x- ray today shows diffuse bilateral infiltrates more left than right sided. In addition, the patient has a history of hypothyroidism, hypertension, GERD, hyperlipidemia, diabetes mellitus, adrenal insufficiency, heart failure, myocardial infarction, sleep apnea syndrome, history of pneumonia with parapneumonic effusion requiring chest tube drainage, shingles, bowel resection , bypass grafting, and multiple other medical problems and comorbidities. Clinically the patient looks about the same. The patient admits to feeling about the same. Admits to chest congestion cough and some minimal shortness of breath. Shortness of breath seems to bother him most when he is up exerting himself. The patient's microbiology thus far has been negative. He is seeing Dr. Hardin and infectious disease. Objective - Vital Signs Vital signs: Vital Signs Temp 101.0 F H 04/12/18 07:30 Pulse 70 04/12/18 11:09 Resp 20 04/12/18 07:30 BP 148/90 04/12/18 07:30 Pulse Ox 87 L 04/12/18 07:30 Intake & Output 04/11/18 04/12/18 04/12/18 18:59 06:59 18:59 Intake Total 600 Output Total 500 Balance 100 Weight 98.5 kg Intake: Oral 600 Output: Urine 500 Other: Voiding Method Bedside Commode Bedside Commode Urinal Urinal # Voids 3 1 # Bowel Movements 0 0 - Exam No acute distress, oriented, seemingly sleepy and flat on his back. I wonder about chronic aspiration. In no acute distress. HEENT examination is grossly unremarkable. Mucous membranes are moist. No oral lesions. Neck supple. Full range of motion. No adenopathy thyromegaly or neck vein distention. Cardiovascular examination reveals regular rhythm rate. S1-S2 normal. No S3 or S4. No discernible murmur noted. Lungs reveal coarse bilateral breath sounds. Breath sounds are diminished. No wheezes. Crackles bilaterally. Abdomen soft bowel sounds are heard. No masses or tenderness. Extremities are intact. No cyanosis clubbing or edema. Skin is without rash or lesion. Neurologic examination is brief but nonfocal. - Labs CBC & Chem 7: 04/12/18 07:17 04/12/18 07:17 Labs: Abnormal Lab Results - Last 24 Hours (Table) 04/11/18 04/11/18 04/11/18 Range/Units 11:54 17:16 20:47 Hgb (13.0-17.5) gm/dL Hct (39.0-53.0) % MCV (80.0-100.0) fL MCH (25.0-35.0) pg MCHC (31.0-37.0) g/dL RDW (11.5-15.5) % Neutrophils # (1.3-7.7) k/uL Lymphocytes # (1.0-4.8) k/uL Glucose (74-99) mg/dL POC Glucose (mg/dL) 159 H 192 H 192 H (75-99) mg/dL Calcium (8.4-10.2) mg/dL 04/12/18 04/12/18 04/12/18 Range/Units 02:12 06:13 07:17 Hgb 8.6 L (13.0-17.5) gm/dL Hct 32.2 L (39.0-53.0) % MCV 73.8 L (80.0-100.0) fL MCH 19.8 L (25.0-35.0) pg MCHC 26.8 L (31.0-37.0) g/dL RDW 17.8 H (11.5-15.5) % Neutrophils # 8.5 H (1.3-7.7) k/uL Lymphocytes # 0.6 L (1.0-4.8) k/uL Glucose (74-99) mg/dL POC Glucose (mg/dL) 110 H 121 H (75-99) mg/dL Calcium (8.4-10.2) mg/dL 04/12/18 04/12/18 Range/Units 07:17 07:36 Hgb (13.0-17.5) gm/dL Hct (39.0-53.0) % MCV (80.0-100.0) fL MCH (25.0-35.0) pg MCHC (31.0-37.0) g/dL RDW (11.5-15.5) % Neutrophils # (1.3-7.7) k/uL Lymphocytes # (1.0-4.8) k/uL Glucose 147 H (74-99) mg/dL POC Glucose (mg/dL) 161 H (75-99) mg/dL Calcium 8.3 L (8.4-10.2) mg/dL Microbiology - Last 24 Hours (Table) 04/08/18 20:30 Blood Culture - Preliminary Blood No Growth after 72 hours 04/10/18 13:27 Blood Culture - Preliminary Blood No Growth after 24 hours Assessment and Plan Assessment: Assessment Weakness, dehydration, dizziness and lightheadedness, which may relate to worsening bilateral pneumonia. Possible aspiration pneumonia History of hypothyroidism History of hypertension History of GERD History of hyperlipidemia History of diabetes mellitus Adrenal insufficiency History of heart failure Previous history of myocardial infarction History of sleep apnea syndrome, currently on CPAP Previous history of pneumonia with parapneumonic effusion requiring chest tube drainage Previous history of shingles Previous bowel resection Status post bypass grafting Multiple other medical problems and comorbidities Plan: Plan dated 04/09/2018 The chest x-rays reviewed. It shows bibasilar infiltrates slightly worse on the left than on the right side. They may be more chronic in nature than acute. White count is 13.7 hemoglobin 9.6 hematocrit 34.8 platelet count is normal. PT INR and PTT are all normal. Electrolytes look good. There is a prerenal azotemia with the BUN of 34 and a creatinine of 1. This would suggest dehydration. Initial lactic acid was 3.5 and follow-up with 1.1 probably from dehydration. Liver function tests are mildly elevated. The patient also had may have a very mild rhabdomyolysis. The urine is normal. Medications are reviewed. Prognosis is guarded. Plan dated 04/12/2018 I did speak to Dr. Block about this patient. Chest x-ray definitely is worse. The patientappears to be flat. I wonder if he is chronically aspirating. Infectious disease is on the case. White count 10.2 in room 8.6 hematocrit 32.2 platelet count 344,000. Sodium potassium chloride CO2 all normal. BUN and creatinine were 19 and 1.10 respectively. I did speak to Dr. Block about giving the patient some additional diuretic. This may help. We'll institute aspiration precautions. The patient is currently on Rocephin and Zithromax and vancomycin. Infectious disease is following this patient. Should he not show improvement, he may need bronchoscopy early next week. Time with Patient: Less than 30
[2018-04-12 12:01] LABS: Glucose,Whole Blood 148 mg/dL (75-99)
--- NOTE | 2018-04-12 16:25 | PN ---
PROGRESS NOTE DATE OF SERVICE: 04/12/2018 I am covering for Dr. Romero. This 57-year-old gentleman who was admitted with bilateral pneumonia on IV antibiotics. The most recent chest x-ray showed worsening bibasilar airspace disease. Dr. Soto and Dr. Hardin are following the patient closely. The patient also received some diuretics. Also patient is closely monitored. Patient is using CPAP at this time. In case of nonimprovement, Dr. Soto is also planning bronchoscopy at this time. PAST MEDICAL HISTORY: Reviewed. REVIEW OF SYSTEMS: CARDIOVASCULAR: No angina. RESPIRATORY: As mentioned earlier. GI: No nausea. : No dysuria. NERVOUS SYSTEM: No numbness, weakness. CURRENT MEDICATIONS: Reviewed and include: 1. Tylenol 650 q.6h p.r.n. 2. [place] 10 mg q.4h p.r.n. 3. DuoNeb q.i.d. and p.r.n. 4. Norvasc 5 mg p.o. q.h.s. 5. Eliquis 5 mg p.o. b.i.d. 6. Lipitor 80 mg q.h.s. 7. Zithromax 500 mg p.o. 8. Rocephin 1 g daily. 9. Cymbalta 30 mg p.o. b.i.d. 10.Lodine 400 mg b.i.d. 11.Duragesic 25 mcg q.7 days. 12.Lasix 20 mg p.o. b.i.d. 13.Neurontin 800 mg q.i.d. 14.Cortef 20 mg daily. 15.NovoLog scale. 16.Levemir 26 subcu b.i.d. 17.Synthroid 50 mg q.h.s. 18.Zestril 5 mg q.a.m. 19.1000 mg b.i.d. 20.Lopressor 25 mg b.i.d. 21.Vancomycin. 22.Singulair 10 mg. 23.Multivitamin. 24.Nystatin. 25.Vitamin B complex. 26.Protonix 40 mg. 27.Vancomycin 1.7 mg b.i.d. PHYSICAL EXAM: Patient is alert, oriented x3. The pulse is 68, blood pressure is 140/92, respiration 20, temperature 101, pulse ox 87% on 5 L. HEENT: Conjunctivae normal. Oral mucosa moist. NECK: No jugular venous distention. No carotid bruit. No lymph node enlargement. CARDIOVASCULAR: S1, S2 muffled. RESPIRATORY: Breath sounds diminished in the bases. Bilateral scattered rhonchi and crackles. ABDOMEN: Soft, nontender. No mass palpable. Obese. LEGS: No edema. NERVOUS SYSTEM: Higher functions as mentioned. Moves all four limbs. No focal motor deficits. LYMPHATICS: No lymphadenopathy in the neck, axillae, groin. SKIN: No ulcer, rash, bleeding. LABS: WBC 10.2, hemoglobin is 8.6. ASSESSMENT: 1. Bilateral pneumonia right more than left, possibly aspiration or gram- negative with sepsis, present on admission. 2. Diarrhea dehydration. 3. Fever. 4. Elevated lactic acid. 5. Transaminitis with etiology unknown. 6. Paroxysmal atrial fibrillation. 7. Coronary artery disease, CABG, stent. 8. Diabetes mellitus type 2. 9. History of pneumonia and sepsis in the past. 10.History of previous pneumonia, recurrent. 11.History of sleep apnea. 12.History of previous cellulitis with MRSA. 13.Hyperlipidemia. 14.History of degenerative joint disease. 15.Hypothyroidism. 16.Obesity. 17.Hypomagnesemia. 18.Congestive heart failure with chronic systolic dysfunction. RECOMMENDATIONS AND DISCUSSION: I recommend to continue current management. Continue with broad-spectrum IV antibiotics. Infectious Disease is following the patient closely. Continue with antibiotics. Otherwise continue the bronchodilators and also recommend a BNP since it is not done. A 2D echo was done couple months ago and showed ejection fraction about 35- 40%. We will charting also and some IV Lasix. Further recommendations to follow. MMODL / IJN: [id number] / [facility] SHOREPatricia
[2018-04-12 17:13] LABS: Glucose,Whole Blood 116 mg/dL (75-99)
--- NOTE | 2018-04-12 17:14 | P.PN ---
Subjective Progress Note Date: 04/12/18 57-year-old male who is well-known to the infectious disease service because of his multiple bouts of sepsis. Earlier this year the patient was hospitalized for multifocal pneumonia and MRSA was isolated from his sputum. After hospitalization he had improvement in completed his course of oral trimethoprim sulfamethoxazole with good resolution. He has had difficulties in the past with diabetes mellitus type 2 with poor control, severe coronary artery disease with several myocardial infarctions and chronic polyneuropathy. He does have a known history of gout and psoriasis that has been very difficult to control over time but have been better as of late. He did have several admissions where he was having difficulties with lactic acidosis that was thought to be medication induced. She was preparing for colonoscopy and had several bouts of diarrhea prior to starting the prep. Then patient developed dizziness weakness and apparently low blood pressure with fever and chills. He was brought into [facility] emergency center for evaluation. His temperature max has been 100.8, white count of 13.7, CK 2958, AST 147 and ALT 155, troponin 0.025, magnesium 0.9 and has been replaced. Initial lactic acid 3.5 and repeat is 1.1 He is status post 2 L of IV fluid. Chest x-ray showed pulmonary infiltrate bilaterally slightly increased on the left and unchanged on the right. Patient was given ceftriaxone and azithromycin in the emergency center and subsequent admitted to the [facility] floor. Pulmonary medicine is also on consult. When asked, patient states that he has been using his BiPAP but according to nursing he had the centering the night for only a brief period. Patient has had no nausea, vomiting or diarrhea this morning. According to the nightman he did have some liquid stools. Stool studies ordered include a C. difficile toxin, Cryptosporidium, Giardia, rotavirus and stool culture. 04/10/2018 patient is now worse with onset of high fever and altered mental status and worsening hypoxia. 04/11/2018 patient has had slight improvement this afternoon. His fever of 101.2 during the day has now declined to 99. He is much more awake and alert. Has been wearing his CPAP throughout the day with some improvement of his mental status. He does relate he feels better this evening. He is able to sit upright and utilize his urinal without difficulties and then start to eat his dinner. 04/12/2018 patient is with a somewhat difficult day that he's been somewhat sleepy today. The nurses insisting that he has his CPAP on at all times but seems to be helping. Upon arriving to the room he is arousable no was my name , smiles and laughs a few jokes. He does not relate that he is uncomfortable but just feels ill. Objective - Vital Signs Vital signs: Vital Signs Temp 98.8 F 04/12/18 14:25 Pulse 76 04/12/18 15:55 Resp 20 04/12/18 14:25 BP 121/64 04/12/18 14:25 Pulse Ox 98 04/12/18 14:25 Intake & Output 04/11/18 04/12/18 04/12/18 18:59 06:59 18:59 Intake Total 600 250 Output Total 500 300 Balance 100 -50 Weight 98.5 kg Intake: Intake, IV Titration 250 Amount Vancomycin 1,750 mg In 250 Sodium Chloride 0.9% 500 ml @ 167 mls/hr IVPB Q12HR [place] Rx#:[id number] Oral 600 Output: Urine 500 300 Other: Voiding Method Bedside Commode Bedside Commode Urinal Urinal # Voids 3 1 # Bowel Movements 0 0 - Exam Gen: This is a obese 57-year-old male. More awake and alert today. Was able to sit upright utilizes urinal and started to eat his dinner without difficulties. He recognizes me by name without difficulties HEENT: Head is atraumatic, normocephalic. Pupils equal, round. Sclerae is anicteric. Oral mucous membranes are slightly dry. No thrush noted. Patient is edentulous. NECK: Supple. No JVD. No lymphadenopathy. No thyromegaly. LUNGS: Clear to auscultation. No wheezes or rhonchi. No intercostal retractions. HEART: Regular rate and rhythm. No murmur. ABDOMEN: Soft. Bowel sounds are present. No masses. No tenderness. EXTREMITIES: 1+ pedal edema. Dorsalis pedis is weak bilaterally. John wraps were removed from both lower extremities, no significant skin lesions or open wounds. NEUROLOGICAL: Much more awake alert and interactive no acute deficits noted - Labs CBC & Chem 7: 04/12/18 07:17 04/12/18 07:17 Labs: Abnormal Lab Results - Last 24 Hours (Table) 0704/11/18 04/12/18 Range/Units 17:16 20:47 02:12 Hgb (13.0-17.5) gm/dL Hct (39.0-53.0) % MCV (80.0-100.0) fL MCH (25.0-35.0) pg MCHC (31.0-37.0) g/dL RDW (11.5-15.5) % Neutrophils # (1.3-7.7) k/uL Lymphocytes # (1.0-4.8) k/uL Glucose (74-99) mg/dL POC Glucose (mg/dL) 192 H 192 H 110 H (75-99) mg/dL Calcium (8.4-10.2) mg/dL 04/12/18 04/12/18 04/12/18 Range/Units 06:13 07:17 07:17 Hgb 8.6 L (13.0-17.5) gm/dL Hct 32.2 L (39.0-53.0) % MCV 73.8 L (80.0-100.0) fL MCH 19.8 L (25.0-35.0) pg MCHC 26.8 L (31.0-37.0) g/dL RDW 17.8 H (11.5-15.5) % Neutrophils # 8.5 H (1.3-7.7) k/uL Lymphocytes # 0.6 L (1.0-4.8) k/uL Glucose 147 H (74-99) mg/dL POC Glucose (mg/dL) 121 H (75-99) mg/dL Calcium 8.3 L (8.4-10.2) mg/dL 04/12/18 04/12/18 Range/Units 07:36 11:56 Hgb (13.0-17.5) gm/dL Hct (39.0-53.0) % MCV (80.0-100.0) fL MCH (25.0-35.0) pg MCHC (31.0-37.0) g/dL RDW (11.5-15.5) % Neutrophils # (1.3-7.7) k/uL Lymphocytes # (1.0-4.8) k/uL Glucose (74-99) mg/dL POC Glucose (mg/dL) 161 H 148 H (75-99) mg/dL Calcium (8.4-10.2) mg/dL Microbiology - Last 24 Hours (Table) 04/10/18 13:27 Blood Culture - Preliminary Blood No Growth after 48 hours 04/08/18 20:30 Blood Culture - Preliminary Blood No Growth after 72 hours Microbiology 04/10/18 13:27 Blood Blood Culture - Preliminary No Growth after 48 hours 04/08/18 20:30 Blood Blood Culture - Preliminary No Growth after 72 hours Laboratory Results WBC 10.2 k/uL (3.8-10.6) 04/12/18 07:17 RBC 4.37 m/uL (4.30-5.90) 04/12/18 07:17 Hgb 8.6 gm/dL (13.0-17.5) L 04/12/18 07:17 Hct 32.2 % (39.0-53.0) L 04/12/18 07:17 MCV 73.8 fL (80.0-100.0) L 04/12/18 07:17 MCH 19.8 pg (25.0-35.0) L 04/12/18 07:17 MCHC 26.8 g/dL (31.0-37.0) L 04/12/18 07:17 RDW 17.8 % (11.5-15.5) H 04/12/18 07:17 Plt Count 244 k/uL (150-450) 04/12/18 07:17 Neutrophils % 84 % 04/12/18 07:17 Lymphocytes % 6 % 04/12/18 07:17 Monocytes % 5 % 04/12/18 07:17 Eosinophils % 2 % 04/12/18 07:17 Basophils % 0 % 04/12/18 07:17 Neutrophils # 8.5 k/uL (1.3-7.7) H 04/12/18 07:17 Lymphocytes # 0.6 k/uL (1.0-4.8) L 04/12/18 07:17 Monocytes # 0.5 k/uL (0-1.0) 04/12/18 07:17 Eosinophils # 0.2 k/uL (0-0.7) 04/12/18 07:17 Basophils # 0.0 k/uL (0-0.2) 04/12/18 07:17 Hypochromasia Marked 04/12/18 07:17 Poikilocytosis Slight 04/12/18 07:17 Anisocytosis Slight 04/12/18 07:17 Microcytosis Moderate 04/12/18 07:17 PT 10.9 sec (9.0-12.0) 04/08/18 20:15 INR 1.1 (<1.2) 04/08/18 20:15 APTT 19.2 sec (22.0-30.0) L 04/08/18 20:15 Sodium 140 mmol/L (137-145) 04/12/18 07:17 Potassium 4.1 mmol/L (3.5-5.1) 04/12/18 07:17 Chloride 100 mmol/L (98-107) 04/12/18 07:17 Carbon Dioxide 29 mmol/L (22-30) 04/12/18 07:17 Anion Gap 11 mmol/L 04/12/18 07:17 BUN 19 mg/dL (9-20) 04/12/18 07:17 Creatinine 1.10 mg/dL (0.66-1.25) 04/12/18 07:17 Est GFR (CKD-EPI)AfAm 85 (>60 ml/min/1.73 sqM) 04/12/18 07:17 Est GFR (CKD-EPI)NonAf 73 (>60 ml/min/1.73 sqM) 04/12/18 07:17 Glucose 147 mg/dL (74-99) H 04/12/18 07:17 POC Glucose (mg/dL) 148 mg/dL (75-99) H 04/12/18 11:56 POC Glu Medical Record Coder ALICIA Apple Ramos 04/12/18 11:56 Lactic Ac Sepsis Rflx Y 04/08/18 20:49 Plasma Lactic Acid Freddy 0.9 mmol/L (0.7-2.0) 04/10/18 17:48 Calcium 8.3 mg/dL (8.4-10.2) L 04/12/18 07:17 Phosphorus 4.3 mg/dL (2.5-4.5) 04/08/18 20:15 Magnesium 1.7 mg/dL (1.6-2.3) 04/09/18 08:57 Total Bilirubin 0.4 mg/dL (0.2-1.3) 04/09/18 08:57 AST 94 U/L (17-59) H 04/09/18 08:57 ALT 123 U/L (21-72) H 04/09/18 08:57 Alkaline Phosphatase 83 U/L (38-126) 04/09/18 08:57 Total Creatine Kinase 2958 U/L (55-170) H 04/08/18 20:15 CK-MB (CK-2) 25.6 ng/mL (0.0-2.4) H* 04/08/18 20:15 CK-MB (CK-2) Rel Index 04/08/18 20:15 Troponin I 0.025 ng/mL (0.000-0.034) 04/08/18 20:15 NT-Pro-B Natriuret Pep 6300 pg/mL 04/12/18 07:17 Total Protein 5.9 g/dL (6.3-8.2) L 04/09/18 08:57 Albumin 3.2 g/dL (3.5-5.0) L 04/09/18 08:57 Urine Color Yellow 04/09/18 05:00 Urine Appearance Clear (Clear) 04/09/18 05:00 Urine pH 5.5 (5.0-8.0) 04/09/18 05:00 Ur Specific [place] 1.012 (1.001-1.035) 04/09/18 05:00 Urine Protein 1+ (Negative) H 04/09/18 05:00 Urine Glucose (UA) Negative (Negative) 04/09/18 05:00 Urine Ketones Negative (Negative) 04/09/18 05:00 Urine Blood Negative (Negative) 04/09/18 05:00 Urine Nitrite Negative (Negative) 04/09/18 05:00 Urine Bilirubin Negative (Negative) 04/09/18 05:00 Urine Urobilinogen <2.0 mg/dL (<2.0) 04/09/18 05:00 Ur Leukocyte Esterase Negative (Negative) 04/09/18 05:00 Urine RBC <1 /hpf (0-5) 04/09/18 05:00 Urine WBC <1 /hpf (0-5) 04/09/18 05:00 Ur Squamous Epith Cells <1 /hpf (0-4) 04/09/18 05:00 Hyaline Casts 3 /lpf (0-2) H 04/09/18 05:00 Urine Mucus Rare /hpf (None) H 04/09/18 05:00 Assessment and Plan (1) Fever Narrative/Plan: This pleasant 57-year-old gentleman is well-known to the service of multiple hospitalizations. Presents now with significant weakness and dizziness and lactic acidosis occurring after onset of copious diarrhea after prep for his colonoscopy. With hydration the patient is feeling slightly better at this time. The patient's chest x-ray was with some minimal change from the most recent x-ray with potential atelectasis or infiltrate. With his illness antibiotic therapy with ceftriaxone and azithromycin was started with concerns pneumonia. Cultures are currently in process are awaited. With hydration the patient is urged to feel considerably better. He also is having significant bilateral lower extremity edema. The patient relates that he spends a great deal of his time sitting upright in a chair, with his legs in a dependent position which of course worsens his edema. He does wrap them at times. It is noted since coming to Hospital, having legs elevated and wraps in place he is remarkably improved. There is no significant cellulitis with ulcers in the legs at this time. The plan for now will be to monitor for any other evidence of infection, will hopefully limit his antibiotic therapy. We'll need input from gastroenterology possibly as an outpatient as to the next plan given that he has ongoing significant anemia and endoscopy was being performed to evaluate for a source of his anemia but had a significant difficulty with the prep with the profuse diarrhea resulting in weakness, volume contracture and dehydration induced lactic acidosis. As noted he was 8.4 and does not need transfusion at this time. 04/10/2018 patient is worse today withincreasing fever. With this further cultures are requested, intravenous Tylenol and addition of vancomycin is performed.patient does have a history of MRSA pneumonia and with chest xray concern to pneumonia especially with the fever is updated 04/11/2018 patient has improved today. Fever this afternoon has started to improve after the higher fever of earlier in the day. Mentations improving. Seems more comfortable. White count is 6.3. Cultures are pending. With his history is concerns to ongoing pneumonia possibly MRSA pneumonia. Is on multiple antibiotic therapy includes vancomycin was added yesterday with concerns to pneumonia. Follow-up chest x-ray and pulmonary consult follow-up are in progress. Patient states she's feeling better this afternoon. 04/12/2018 patient is having a bit of a rough day. On admission. He relates that his shortness of breath is stable with the CPAP in place. He still had a fever in the last 24 hours. Cultures are negative so far but he has not produced sputum culture. This is a some importance Suha had MRSA pneumonia in the past. He has been related if he does not improve the bronchoscopy is planned. Blood cultures will be obtained if he has further fever. Current Visit: Yes Status: Acute Code(s): R50.9 - FEVER, UNSPECIFIED SNOMED Code(s): 393515397 (2) Weakness Current Visit: Yes Status: Acute Code(s): R53.1 - WEAKNESS SNOMED Code(s) : 10701689 (3) Pneumonia Current Visit: No Status: Acute Code(s): J18.9 - PNEUMONIA, UNSPECIFIED ORGANISM SNOMED Code(s): 435215966
[2018-04-12] MEDS: LEVOTHYROXINE 50 MCG TAB PO SCH (19:38)
[2018-04-12] MEDS: ATORVASTATIN 80 MG TAB PO SCH (19:39)
[2018-04-12] MEDS: amLODIPine 5 MG TAB PO SCH (19:41)
[2018-04-12] MEDS: MONTELUKAST 10 MG TAB PO SCH (19:41)
[2018-04-12] MEDS: HYDROcodone/APAP 10-325MG 1 EACH TAB PO PRN ×2 (19:41→23:44)
[2018-04-12] MEDS ORDERED: VANCOMYCIN TROUGH DUE 1 EACH MISC MISCELLANE ONE (20:00)
[2018-04-12 20:51] LABS: Glucose,Whole Blood 161 mg/dL (75-99)
[2018-04-13 02:49] LABS: Glucose,Whole Blood 112 mg/dL (75-99)
[2018-04-13] MEDS: VANCOMYCIN 1,750 MG in SODIUM CHLORIDE 0.9% 500 ML IVPB SCH ×2 (05:42→21:03)
[2018-04-13] MEDS: IPRATROPIUM-ALBUTEROL 3 ML NEB INHALATION SCH ×4 (07:06→21:12)
[2018-04-13 07:32] LABS: Glucose,Whole Blood 84 mg/dL (75-99)
[2018-04-13] MEDS: INSULIN ASPART 100 UNIT/ML 1 ML 10 ML VIAL SQ SCH ×4 (07:47→21:02)
[2018-04-13] MEDS: NON-FORMULARY DRUG (Vitamin B Complex [Vitamin B Complex] 1 CAP) PO SCH (07:52)
[2018-04-13] MEDS: ETODOLAC 400 MG TAB PO SCH ×2 (07:59→21:00)
[2018-04-13] MEDS: HYDROCORTISONE 20 MG TAB PO SCH (07:59)
[2018-04-13] MEDS: DULoxetine HCL 30 MG CAPSULE.DR PO SCH ×2 (07:59→21:01)
[2018-04-13] MEDS: APIXABAN 5 MG TAB PO SCH ×2 (07:59→21:01)
[2018-04-13] MEDS: LISINOPRIL 5 MG TAB PO SCH (07:59)
[2018-04-13] MEDS: METOPROLOL TARTRATE 25 MG TAB PO SCH ×2 (07:59→21:01)
[2018-04-13] MEDS: GABAPENTIN 400 MG CAP PO SCH ×4 (07:59→21:00)
[2018-04-13] MEDS: metFORMIN 500 MG TAB PO SCH ×2 (08:00→17:18)
[2018-04-13] MEDS: cefTRIAXone IN SWFI 1,000 MG/10 ML SYRINGE IVP SCH (08:00)
[2018-04-13] MEDS: PANTOPRAZOLE 40 MG TABLET PO SCH (08:00)
[2018-04-13] MEDS: AZITHROMYCIN 500 MG TAB PO SCH (08:00)
[2018-04-13] MEDS: MULTIVITAMINS, THERA 1 EACH TAB PO SCH (08:00)
[2018-04-13] MEDS: FUROSEMIDE 20 MG TAB PO SCH (08:00)
[2018-04-13] MEDS: INSULIN DETEMIR 100 UNIT/ML 10 ML VIAL SQ SCH ×2 (08:26→21:02)
[2018-04-13 09:59] LABS: Anisocytosis Slight; Basophils % (A) 0 %; Eosinophils # (A) 0.1 k/uL (0-0.7); Eosinophils % (A) 2 %; HCT 29.1 % (39.0-53.0); HGB 8.1 gm/dL (13.0-17.5); Hypochromasia Marked; Lymphocytes # (A) 0.5 k/uL (1.0-4.8); Lymphocytes % (A) 7 %; MCH 20.4 pg (25.0-35.0); MCHC 27.8 g/dL (31.0-37.0); MCV 73.4 fL (80.0-100.0); Mean Platelet Volume 7.3; Microcytosis Moderate; Monocytes # (A) 0.4 k/uL (0-1.0); Monocytes % (A) 6 %; Neutrophils # (A) 5.1 k/uL (1.3-7.7); Neutrophils % (A) 82 %; Platelet Count 180 k/uL (150-450); Poikilocytosis Slight; RBC 3.97 m/uL (4.30-5.90); RDW 17.7 % (11.5-15.5); WBC 6.2 k/uL (3.8-10.6)
[2018-04-13 10:13] LABS: Calcium 8.1 mg/dL (8.4-10.2); Potassium 3.7 mmol/L (3.5-5.1)
[2018-04-13] MEDS ORDERED: FUROSEMIDE 10 MG/ML 4 ML VIAL IV STA (10:17)
--- NOTE | 2018-04-13 10:51 | XR ---
EXAMINATION TYPE: XR chest 2V DATE OF EXAM: 04/13/2018 HISTORY: Pneumonia. REFERENCE: Previous study dated 04/04/2018. FINDINGS: There has been a midline sternotomy. The heart is enlarged. There is patchy airspace diseas e present bilaterally. This may have improved slightly. I suspect small, bilateral effusions. IMPRESSION: SLIGHT IMPROVEMENT IN THE AERATION OF BOTH LUNGS.
--- NOTE | 2018-04-13 10:53 | P.PN ---
Subjective Progress Note Date: 04/13/18 Principal diagnosis: Pneumonia Progress note dated 04/12/2018 57-year-old male admitted with a diagnosis of bilateral pneumonia. His symptoms started as left lower lobe pneumonia but has progressed. His chest x- ray today shows diffuse bilateral infiltrates more left than right sided. In addition, the patient has a history of hypothyroidism, hypertension, GERD, hyperlipidemia, diabetes mellitus, adrenal insufficiency, heart failure, myocardial infarction, sleep apnea syndrome, history of pneumonia with parapneumonic effusion requiring chest tube drainage, shingles, bowel resection , bypass grafting, and multiple other medical problems and comorbidities. Clinically the patient looks about the same. The patient admits to feeling about the same. Admits to chest congestion cough and some minimal shortness of breath. Shortness of breath seems to bother him most when he is up exerting himself. The patient's microbiology thus far has been negative. He is seeing Dr. Hardin and infectious disease. Progress note dated 04/13/2018 57-year-old male admitted with a diagnosis of bilateral pneumonia as well as fluid overload/heart failure. His chest x-ray continues to show diffuse bilateral infiltrates more left than right sided. Today, I'm going go ahead and increase his diuretic. I'll give him 40 of Lasix IV push and then increase his Lasix orally to 40 by mouth twice a day. He does have a history of hypothyroidism hypertension GERD hyperlipidemia diabetes adrenal insufficiency heart failure myocardial infarction sleep apnea syndrome pneumonia with parapneumonic effusion requiring chest tube drainage shingles bowel resection bypass grafting as well as multiple other medical problems and comorbidities. He is clinically not a well man. Dr. Hardin is seen the patient for an from infectious disease. His medications are reviewed. Everything seems appropriate. I will see whether or not increasing his diuretic improves his chest x-ray. Objective - Vital Signs Vital signs: Vital Signs Temp 98.0 F 04/13/18 06:34 Pulse 72 04/13/18 07:54 Resp 20 04/13/18 06:34 BP 107/60 04/13/18 06:34 Pulse Ox 96 04/13/18 06:34 Intake & Output 04/12/18 04/13/18 04/13/18 18:59 06:59 18:59 Intake Total 250 450 Output Total 800 425 Balance -550 25 Weight 96.5 kg Intake: Intake, IV Titration 250 Amount Vancomycin 1,750 mg In 250 Sodium Chloride 0.9% 500 ml @ 167 mls/hr IVPB Q12HR [facility] Rx#:[id number] Oral 450 Output: Urine 800 425 Other: Voiding Method Bedside Commode Bedside Commode Bedside Commode Urinal Urinal Urinal # Voids 1 0 # Bowel Movements 0 - Exam No acute distress, oriented, seemingly sleepy and flat on his back. I wonder about chronic aspiration. In no acute distress. HEENT examination is grossly unremarkable. Mucous membranes are moist. No oral lesions. Neck supple. Full range of motion. No adenopathy thyromegaly or neck vein distention. Cardiovascular examination reveals regular rhythm rate. S1-S2 normal. No S3 or S4. No discernible murmur noted. Lungs reveal diffuse bibasilar crackles. Coarse rhonchi noted. Breath sounds equal bilaterally. Slight prolongation on forced maneuver. Abdomen soft bowel sounds are heard. No masses or tenderness. Extremities are intact. No cyanosis clubbing or edema. Skin is without rash or lesion. Neurologic examination is brief but nonfocal. - Labs CBC & Chem 7: 04/13/18 09:26 04/13/18 09:26 Labs: Abnormal Lab Results - Last 24 Hours (Table) 04/12/18 04/12/18 04/12/18 Range/Units 11:56 17:10 20:01 RBC (4.30-5.90) m/uL Hgb (13.0-17.5) gm/dL Hct (39.0-53.0) % MCV (80.0-100.0) fL MCH (25.0-35.0) pg MCHC (31.0-37.0) g/dL RDW (11.5-15.5) % Lymphocytes # (1.0-4.8) k/uL Carbon Dioxide (22-30) mmol/L BUN (9-20) mg/dL Glucose (74-99) mg/dL POC Glucose (mg/dL) 148 H 116 H (75-99) mg/dL Calcium (8.4-10.2) mg/dL Vancomycin Trough 32.1 H* ug/mL 04/12/18 04/13/18 04/13/18 Range/Units 20:46 02:46 09:26 RBC 3.97 L (4.30-5.90) m/uL Hgb 8.1 L (13.0-17.5) gm/dL Hct 29.1 L (39.0-53.0) % MCV 73.4 L (80.0-100.0) fL MCH 20.4 L (25.0-35.0) pg MCHC 27.8 L (31.0-37.0) g/dL RDW 17.7 H (11.5-15.5) % Lymphocytes # 0.5 L (1.0-4.8) k/uL Carbon Dioxide (22-30) mmol/L BUN (9-20) mg/dL Glucose (74-99) mg/dL POC Glucose (mg/dL) 161 H 112 H (75-99) mg/dL Calcium (8.4-10.2) mg/dL Vancomycin Trough ug/mL 04/13/18 Range/Units 09:26 RBC (4.30-5.90) m/uL Hgb (13.0-17.5) gm/dL Hct (39.0-53.0) % MCV (80.0-100.0) fL MCH (25.0-35.0) pg MCHC (31.0-37.0) g/dL RDW (11.5-15.5) % Lymphocytes # (1.0-4.8) k/uL Carbon Dioxide 32 H (22-30) mmol/L BUN 26 H (9-20) mg/dL Glucose 170 H (74-99) mg/dL POC Glucose (mg/dL) (75-99) mg/dL Calcium 8.1 L (8.4-10.2) mg/dL Vancomycin Trough ug/mL Microbiology - Last 24 Hours (Table) 04/08/18 20:30 Blood Culture - Preliminary Blood No Growth after 96 hours 04/10/18 13:27 Blood Culture - Preliminary Blood No Growth after 48 hours Assessment and Plan Assessment: Assessment Weakness, dehydration, dizziness and lightheadedness, which may relate to worsening bilateral pneumonia. Possible aspiration pneumonia Congestive heart failure/fluid overload History of hypothyroidism History of hypertension History of GERD History of hyperlipidemia History of diabetes mellitus Adrenal insufficiency History of heart failure Previous history of myocardial infarction History of sleep apnea syndrome, currently on CPAP Previous history of pneumonia with parapneumonic effusion requiring chest tube drainage Previous history of shingles Previous bowel resection Status post bypass grafting Multiple other medical problems and comorbidities Plan: Plan dated 04/09/2018 The chest x-rays reviewed. It shows bibasilar infiltrates slightly worse on the left than on the right side. They may be more chronic in nature than acute. White count is 13.7 hemoglobin 9.6 hematocrit 34.8 platelet count is normal. PT INR and PTT are all normal. Electrolytes look good. There is a prerenal azotemia with the BUN of 34 and a creatinine of 1. This would suggest dehydration. Initial lactic acid was 3.5 and follow-up with 1.1 probably from dehydration. Liver function tests are mildly elevated. The patient also had may have a very mild rhabdomyolysis. The urine is normal. Medications are reviewed. Prognosis is guarded. Plan dated 04/12/2018 I did speak to Dr. Block about this patient. Chest x-ray definitely is worse. The patientappears to be flat. I wonder if he is chronically aspirating. Infectious disease is on the case. White count 10.2 in room 8.6 hematocrit 32.2 platelet count 344,000. Sodium potassium chloride CO2 all normal. BUN and creatinine were 19 and 1.10 respectively. I did speak to Dr. Block about giving the patient some additional diuretic. This may help. We'll institute aspiration precautions. The patient is currently on Rocephin and Zithromax and vancomycin. Infectious disease is following this patient. Should he not show improvement, he may need bronchoscopy early next week. Plan dated 04/13/2018 The patient's Lasix is increased to 40 mg by mouth twice a day. In addition, we give him some IV push Lasix this morning. A chest x-ray will be repeated in the morning. He's not getting any additional fluid. He's currently on excellent antibiotics. Infectious disease is following the patient. Should he not show improvement, he may benefit from bronchoscopy. Clinically he doesn't look bad. He such a poor historian though, it's hard to get a good idea of how he is doing. He appears to be doing reasonably well but he is so sleepy and somnolent when you go into the room. Time with Patient: Less than 30
[2018-04-13] MEDS: HYDROcodone/APAP 10-325MG 1 EACH TAB PO PRN ×3 (11:19→21:09)
[2018-04-13 11:53] LABS: Glucose,Whole Blood 213 mg/dL (75-99)
[2018-04-13] MEDS: FUROSEMIDE 40 MG TAB PO SCH ×2 (14:57→15:10)
--- NOTE | 2018-04-13 15:42 | PN ---
PROGRESS NOTE DATE OF SERVICE: 04/13/2018. I am covering for Dr. Romero. This 57-year-old gentleman who was admitted with bilateral pneumonia, thought to have some aspiration pneumonia as well. Patient also has fluid overload. The patient is feeling slightly better today. Most recent chest x-ray today showed some improvement. The patient also given some extra diuretics per Dr. Soto. No chest pain. No palpitations. No fever. EXAM: Alert and oriented x3. Pulse is 76, blood pressure 107/60, respiration 20, temperature 98 degrees, pulse ox 90% on CPAP. HEENT: Conjunctivae normal. NECK: No jugular venous distention. CARDIOVASCULAR: S1, S2. RESPIRATORY: Breath sounds diminished in the bases. A few rhonchi and crackles. ABDOMEN: Soft, nontender. LEGS: No edema. No swelling. NERVOUS SYSTEM: No focal deficits. LABS: WBC 6.2, hemoglobin is 8.1, glucose 213. ASSESSMENT: 1. Bilateral pneumonia right more than the left, possibly aspiration gram-negative with sepsis, present on admission. 2. Diarrhea, dehydration. 3. Fever. 4. Elevated lactic acid. 5. Transaminitis with etiology unknown. 6. Paroxysmal atrial fibrillation. 7. Coronary artery disease, CABG, stent. 8. Diabetes mellitus type 2. 9. History of pneumonia and sepsis in the past. 10.History of previous pneumonia. 11.History of sleep apnea. 12.History of previous cellulitis with MRSA. 13.Hyperlipidemia. 14.History of degenerative joint disease. 15.Hypothyroidism. 16.Obesity. 17.Hypomagnesemia. 18.Congestive heart failure with chronic systolic dysfunction. RECOMMENDATIONS AND DISCUSSION: I recommend to continue current medications, continue to monitor. Symptomatic treatment. Continue the diuretic. Continue the rest of medications. Otherwise continue the antibiotics and bronchodilators. Closely follow with Infectious Disease. Further recommendations to follow. MMODL / IJN: [id number] /
[2018-04-13 17:06] LABS: Glucose,Whole Blood 173 mg/dL (75-99)
[2018-04-13 20:27] LABS: Glucose,Whole Blood 169 mg/dL (75-99)
[2018-04-13] MEDS: MONTELUKAST 10 MG TAB PO SCH (21:00)
[2018-04-13] MEDS: amLODIPine 5 MG TAB PO SCH (21:01)
[2018-04-13] MEDS: ATORVASTATIN 80 MG TAB PO SCH (21:01)
[2018-04-13] MEDS: LEVOTHYROXINE 50 MCG TAB PO SCH (21:01)
[2018-04-14 02:16] LABS: Glucose,Whole Blood 103 mg/dL (75-99)
[2018-04-14 07:33] LABS: Glucose,Whole Blood 79 mg/dL (75-99)
--- NOTE | 2018-04-14 07:44 | XR ---
EXAMINATION TYPE: XR chest 2V DATE OF EXAM: 04/14/2018 COMPARISON: Chest x-ray from yesterday and older studies. HISTORY: Pneumonia and heart failure. TECHNIQUE: Frontal and lateral views of the chest are obtained. FINDINGS: Sternal wires and mediastinal clips are redemonstrated. There is persistent cardiomegaly w ith mild to moderate central vascular congestion and tiny bilateral pleural effusions with associated bibasilar atelectasis and/or infiltrate seen best on lateral view. No new focal airspace opacity or pneumothorax is seen bilaterally. Anterior fusion plate cervical spine is redemonstrated. IMPRESSION: Overall stable findings, favor CHF exacerbation as there is cardiomegaly with tiny bilat eral pleural effusions and mild to moderate central vascular congestion felt present. No new infiltra te is seen.
[2018-04-14] MEDS: IPRATROPIUM-ALBUTEROL 3 ML NEB INHALATION SCH ×4 (08:37→19:22)
[2018-04-14] MEDS: INSULIN ASPART 100 UNIT/ML 1 ML 10 ML VIAL SQ SCH ×4 (08:47→21:18)
[2018-04-14] MEDS: NON-FORMULARY DRUG (Vitamin B Complex [Vitamin B Complex] 1 CAP) PO SCH (08:48)
[2018-04-14] MEDS: AZITHROMYCIN 500 MG TAB PO SCH (08:55)
[2018-04-14] MEDS: INSULIN DETEMIR 100 UNIT/ML 10 ML VIAL SQ SCH ×2 (08:55→21:18)
[2018-04-14] MEDS: metFORMIN 500 MG TAB PO SCH ×2 (08:55→17:50)
[2018-04-14] MEDS: PANTOPRAZOLE 40 MG TABLET PO SCH (08:55)
[2018-04-14] MEDS: APIXABAN 5 MG TAB PO SCH ×2 (08:55→21:19)
[2018-04-14] MEDS: DULoxetine HCL 30 MG CAPSULE.DR PO SCH ×2 (08:56→21:19)
[2018-04-14] MEDS: ETODOLAC 400 MG TAB PO SCH ×2 (08:56→21:18)
[2018-04-14] MEDS: HYDROCORTISONE 20 MG TAB PO SCH (08:56)
[2018-04-14] MEDS: GABAPENTIN 400 MG CAP PO SCH ×4 (08:56→21:19)
[2018-04-14] MEDS: FUROSEMIDE 40 MG TAB PO SCH ×2 (08:56→15:18)
[2018-04-14] MEDS: HYDROcodone/APAP 10-325MG 1 EACH TAB PO PRN ×3 (08:56→21:27)
[2018-04-14] MEDS: METOPROLOL TARTRATE 25 MG TAB PO SCH ×2 (08:56→21:19)
[2018-04-14] MEDS: MULTIVITAMINS, THERA 1 EACH TAB PO SCH (08:56)
[2018-04-14] MEDS: LISINOPRIL 5 MG TAB PO SCH (08:56)
[2018-04-14 09:50] LABS: Anisocytosis Slight; Basophils % (A) 0 %; Eosinophils # (A) 0.2 k/uL (0-0.7); Eosinophils % (A) 2 %; HCT 28.5 % (39.0-53.0); HGB 8.1 gm/dL (13.0-17.5); Hypochromasia Marked; Lymphocytes # (A) 0.6 k/uL (1.0-4.8); Lymphocytes % (A) 8 %; MCH 20.7 pg (25.0-35.0); MCHC 28.4 g/dL (31.0-37.0); Mean Platelet Volume 6.8; Microcytosis Moderate; Monocytes # (A) 0.4 k/uL (0-1.0); Monocytes % (A) 5 %; Neutrophils # (A) 6.4 k/uL (1.3-7.7); Neutrophils % (A) 82 %; Platelet Count 185 k/uL (150-450); Poikilocytosis Slight; RDW 17.5 % (11.5-15.5); WBC 7.8 k/uL (3.8-10.6)
[2018-04-14 09:53] LABS: Calcium 8.2 mg/dL (8.4-10.2); Potassium 3.5 mmol/L (3.5-5.1)
[2018-04-14 12:36] LABS: Glucose,Whole Blood 159 mg/dL (75-99)
--- NOTE | 2018-04-14 12:44 | CDI ---
Last Revision, August 2017 Documentation Clarification Form Date: 04/14/2018 12:00:00 AM From: Florecita Kurtz RN, CCDS Admit Date: 04/08/2018 9:08:00 PM Patient Name: Benja Ribera Visit Number: [id number] Discharge Date: ATTENTION: The Clinical Documentation Specialists (CDI) and [facility] Coding Staff appreciate your assistance in clarifying documentation. Please respond to the clarification below the line at the bottom and electronically sign. The CDI & [facility] Coding staff will review the response and follow-up if needed. Please note: Queries are made part of the Legal Health Record. If you have any questions, please contact the author of this message via ITS. Dr. Calin Block History/Risk Factors: Chronic congestive heart failure, systolic dysfunction, Diabetes mellitus, Aspiration pneumonia, Hypertension, Parapneumonic effusion Clinical Indicators: Present with shortness breath with exertion. Chest x-ray on 04/12 show worsening right basilar airspace disease. The heart is enlarged. There is mild vascular congestion Lungs reveal diffuse bibasilar crackles. Coarse rhonchi notes. CXR Overall stable findings, favor CHF exacerbation as there is cardiomegaly with tiny bilateral pleural effusions and mild to moderate central vascular congestion felt present. VS/Pulse OX: 122/93 63 16 97.8 94% 3/L NC BNP: 6300 Echocardiogram Results: (your 04/12 progress notes) EF 35-40 % Treatment: Lasix IV ( now PO) Monitor O@ Sat's Lopressor PO Monitor Labs In your professional opinion, with the current chest x-ran and treatment can you please clarify if the acuity of the Systolic CHF? Acute on Chronic Systolic CHF Chronic Systolic CHF Unable to Determine Other, please specify Please continue to document in your progress notes and discharge summary in order to capture severity of illness and risk of mortality. Include clinical findings that support your diagnosis. Acute on Chronic Systolic CHF MTDD
--- NOTE | 2018-04-14 12:50 | P.PN ---
Subjective Progress Note Date: 04/14/18 Principal diagnosis: Weakness, dehydration, dizziness and lightheadedness, left lower lobe pneumonia Pulmonary consult dated 04/09/2018 This is a 57-year-old male evaluated in the emergency room for low blood oxygen level is low blood sugars dizziness and just not feeling well. He also apparently complained of weakness. He apparently recently had a prep for a colonoscopy. Subsequent to that, the patient is complaining of just not feeling well dizziness lightheadedness and some fevers and chills. The patient is not really complaining of any respiratory complaints at this time. No significant cough or chest congestion. Not coughing up any phlegm. No chest pain or chest pressure. No palpitation. No nausea vomiting or diarrhea. He apparently did have a low blood pressure recently. Currently, the patient seemed be resting comfortably in fact he was sleeping when I first went into the room. Appears not have any distress whatsoever. Not a particularly good historian so most of the history is obtained from the ER ruth. The chest x-ray apparently showed some bibasilar infiltrates possibly bit worse on the left than on the right. The patient apparently has a history of diabetes heart failure myocardial infarction sleep apnea syndrome pneumonia previous right parapneumonic effusion requiring chest tube drainage carpal. tunnel release shingles pancreatitis neuropathy previous MRSA infection bypass grafting heart catheterization with stent many additional surgical procedures. On 04/10/2018 patient seen again in follow-up. Resting comfortably in bed, appears a bit fatigued, T denies any acute distress though, denies any worsening dyspnea. On 2 L per nasal cannula pulse ox is 91-94%, patient has been afebrile for greater than 24 hours. Urine and blood cultures remain negative to date. No new chest x-rays today, today's labs were reviewed, no leukocytosis, WBC is 6.3, hemoglobin is 8.3, electrolytes and renal profile essentially within normal limits. Patient is being treated with empiric antibiotics, he is on a combination of Zithromax and Rocephin. Clinically improving. On 04/11/2018 patient seen in follow-up on medical surgical floor. More awake on today's exam. Denies any worsening dyspnea. Patient continues to have fevers, T-max in the last 24 hours was 101.2F. No new labs today. Urine and blood cultures are negative to date. Means on 4 L per nasal cannula with pulse ox of 92 percent. Does wear BiPAP at night. Lung sounds are positive for scattered rhonchi, and rales at the bases, a combination of Rocephin, Zithromax , and vancomycin. he did have some diarrhea, does with tested for C. diff, and other stool studies. ID service is following. Progress note dated 04/12/2018 57-year-old male admitted with a diagnosis of bilateral pneumonia. His symptoms started as left lower lobe pneumonia but has progressed. His chest x- ray today shows diffuse bilateral infiltrates more left than right sided. In addition, the patient has a history of hypothyroidism, hypertension, GERD, hyperlipidemia, diabetes mellitus, adrenal insufficiency, heart failure, myocardial infarction, sleep apnea syndrome, history of pneumonia with parapneumonic effusion requiring chest tube drainage, shingles, bowel resection , bypass grafting, and multiple other medical problems and comorbidities. Clinically the patient looks about the same. The patient admits to feeling about the same. Admits to chest congestion cough and some minimal shortness of breath. Shortness of breath seems to bother him most when he is up exerting himself. The patient's microbiology thus far has been negative. He is seeing Dr. Hardin and infectious disease. Progress note dated 04/13/2018 57-year-old male admitted with a diagnosis of bilateral pneumonia as well as fluid overload/heart failure. His chest x-ray continues to show diffuse bilateral infiltrates more left than right sided. Today, I'm going go ahead and increase his diuretic. I'll give him 40 of Lasix IV push and then increase his Lasix orally to 40 by mouth twice a day. He does have a history of hypothyroidism hypertension GERD hyperlipidemia diabetes adrenal insufficiency heart failure myocardial infarction sleep apnea syndrome pneumonia with parapneumonic effusion requiring chest tube drainage shingles bowel resection bypass grafting as well as multiple other medical problems and comorbidities. He is clinically not a well man. Dr. Hardin is seen the patient for an from infectious disease. His medications are reviewed. Everything seems appropriate. I will see whether or not increasing his diuretic improves his chest x-ray. On 04/14/2018 patient seen in follow-up on medical surgical floor. He is awake , alert, responding appropriately, he wear his BiPAP. Afebrile. Vital signs are stable, blood cultures and urine remain negative to date. The -1660 mL fluid balance, his weight is down to 96 kg, down 0.5 kg in the last 24 hours. Lung sounds reveal fine crackles, more so on the right, at the bases. Means on empiric antibiotics, in the form of Zithromax, and Levaquin, ID service is following, patient's now on oral diuretics. Improving, although remains generally weak, he has been up out of bed with assistance, however did not ambulate. Objective - Vital Signs Vital signs: Vital Signs Temp 97.8 F 04/14/18 07:10 Pulse 72 04/14/18 12:18 Resp 16 04/14/18 07:10 BP 122/93 04/14/18 07:10 Pulse Ox 94 L 04/14/18 08:40 Intake & Output 04/13/18 04/14/18 04/14/18 18:59 06:59 18:59 Intake Total 240 800 Output Total 2400 300 Balance -2160 500 Weight 96 kg Intake: Oral 240 800 Output: Urine 2400 300 Other: Voiding Method Bedside Commode Urinal Urinal Urinal # Voids 3 # Bowel Movements 0 - Exam No acute distress, oriented 3. Looking older than his stated age of 57. HEENT examination is grossly unremarkable. Mucous membranes are moist. No oral lesions. Neck supple. Full range of motion. No adenopathy thyromegaly or neck vein distention. Cardiovascular examination reveals regular rhythm rate. S1-S2 normal. No S3 or S4. No discernible murmur noted. Heart sounds are distant. Lungs reveal fine bibasilar rales, more so on the right base Abdomen soft bowel sounds are heard. No masses or tenderness. Extremities are intact. No cyanosis clubbing, 1+ pitting edema in bilateral lower extremities. Skin is without rash or lesion. Neurologic examination is brief but nonfocal. - Labs CBC & Chem 7: 04/14/18 08:57 04/14/18 08:57 Labs: Abnormal Lab Results - Last 24 Hours (Table) 04/13/18 04/13/18 04/14/18 Range/Units 17:00 20:24 02:01 RBC (4.30-5.90) m/uL Hgb (13.0-17.5) gm/dL Hct (39.0-53.0) % MCV (80.0-100.0) fL MCH (25.0-35.0) pg MCHC (31.0-37.0) g/dL RDW (11.5-15.5) % Lymphocytes # (1.0-4.8) k/uL Carbon Dioxide (22-30) mmol/L BUN (9-20) mg/dL Creatinine (0.66-1.25) mg/dL Glucose (74-99) mg/dL POC Glucose (mg/dL) 173 H 169 H 103 H (75-99) mg/dL Calcium (8.4-10.2) mg/dL 04/14/18 04/14/18 04/14/18 Range/Units 08:57 08:57 12:34 RBC 3.90 L (4.30-5.90) m/uL Hgb 8.1 L (13.0-17.5) gm/dL Hct 28.5 L (39.0-53.0) % MCV 73.0 L (80.0-100.0) fL MCH 20.7 L (25.0-35.0) pg MCHC 28.4 L (31.0-37.0) g/dL RDW 17.5 H (11.5-15.5) % Lymphocytes # 0.6 L (1.0-4.8) k/uL Carbon Dioxide 34 H (22-30) mmol/L BUN 28 H (9-20) mg/dL Creatinine 1.34 H (0.66-1.25) mg/dL Glucose 102 H (74-99) mg/dL POC Glucose (mg/dL) 159 H (75-99) mg/dL Calcium 8.2 L (8.4-10.2) mg/dL Microbiology - Last 24 Hours (Table) 04/08/18 20:30 Blood Culture - Preliminary Blood No Growth after 120 hours 04/12/18 20:01 Blood Culture - Preliminary Blood No Growth after 24 hours 04/12/18 18:00 Blood Culture - Preliminary Blood No Growth after 24 hours 04/10/18 13:27 Blood Culture - Preliminary Blood No Growth after 72 hours Assessment and Plan Plan: Assessment: Weakness, dehydration, dizziness and lightheadedness, which may relate to left lower lobe pneumonia. History of hypothyroidism History of hypertension History of GERD History of hyperlipidemia History of diabetes mellitus Adrenal insufficiency History of heart failure Previous history of myocardial infarction History of sleep apnea syndrome, currently on CPAP Previous history of pneumonia with parapneumonic effusion requiring chest tube drainage Previous history of shingles Previous bowel resection Status post bypass grafting Multiple other medical problems and comorbidities Plan: Continue current plan of treatment, continue oral diuretics, antibiotics per ID service. Today's chest x-ray shows stable findings, mild to moderate central vascular congestion and tiny bilateral pleural effusions. Clinically the patient continues to improve, more awake, breathing easier, no significant chest congestion, or phlegm production. Cultures remain negative. Consult physical therapy. Will consider for discharge in next 24 hours. I performed a history & physical examination of the patient and discussed their management with my nurse practitioner, Janis Slater. I reviewed the nurse practitioner's note and agree with the documented findings and plan of care. Lung sounds are positive for bibasilar crackles, more so on the right. The findings and the impression was discussed with the patient. I attest to the documentation by the nurse practitioner. Time with Patient: Less than 30
[2018-04-14] MEDS: VANCOMYCIN 1,750 MG in SODIUM CHLORIDE 0.9% 500 ML IVPB SCH (13:10)
[2018-04-14 16:59] LABS: Glucose,Whole Blood 186 mg/dL (75-99)
--- NOTE | 2018-04-14 17:31 | PN ---
PROGRESS NOTE DATE OF SERVICE: 04/14/2018 I am covering for Dr. Romero. INTERVAL HISTORY: This 57-year-old gentleman who was admitted with bilateral pneumonia is improving significantly. No chest pain. No palpitation. The patient is on broad-spectrum IV antibiotics. The most recent chest x-ray done today which was reviewed personally by me showed significant improvement compared to the previous x-rays. The patient has received IV Lasix, also. Patient on increased dose of p.o. Lasix. No chest pain. No palpitations. No fever. PHYSICAL EXAM: Alert and oriented x3. The pulse is 75. Blood pressure 129/72, respiration 16, temperature 98.2, pulse ox 99% on 3 L. HEENT is conjunctivae normal. Oral mucosa moist. Neck is no jugular distention. No carotid bruit. No lymph node enlargement. CARDIOVASCULAR: S1, S2. RESPIRATORY: Breath sounds diminished at the bases. A few bilateral scattered rhonchi and crackles. ABDOMEN: Soft, nontender. Legs are no edema. No swelling. Nervous system: No focal deficits. LABS: Hemoglobin is 8.1, creatinine is 1.34. ASSESSMENT: 1. Bilateral pneumonia with right more the left with possibly aspiration gram-negative sepsis present on admission. 2. Diarrhea dehydration. 3. Possible congestive heart failure acute exacerbation with acute on chronic systolic dysfunction. 4. Fluid overload. 5. Fever. 6. Elevated lactic acid. 7. Transaminitis, etiology unknown. 8. Paroxysmal atrial fibrillation. 9. History of coronary artery disease/coronary artery bypass grafting/stent. 10.Diabetes type 2. 11.History of pneumonia, sepsis in the past. 12.History of previous pneumonia. 13.History of sleep apnea. 14.History of previous cellulitis with MRSA. 15.Hyperlipidemia. 16.History of degenerative joint disease. 17.Hypothyroidism. 18.Obesity. 19.Hypomagnesemia. 20.Congestive heart failure with chronic systolic dysfunction. RECOMMENDATIONS AND DISCUSSION: Recommend to continue current medications, management and symptomatic treatment. Otherwise at this time, we will continue to monitor. We will monitor creatinine closely. Further recommendations to follow. MMODL / IJN: [id number] /
[2018-04-14 21:01] LABS: Glucose,Whole Blood 238 mg/dL (75-99)
[2018-04-14] MEDS: MONTELUKAST 10 MG TAB PO SCH (21:19)
[2018-04-14] MEDS: ATORVASTATIN 80 MG TAB PO SCH (21:19)
[2018-04-14] MEDS: LEVOTHYROXINE 50 MCG TAB PO SCH (21:19)
[2018-04-14] MEDS: amLODIPine 5 MG TAB PO SCH (21:20)
--- NOTE | 2018-04-14 21:35 | P.PN ---
Subjective Progress Note Date: 04/14/18 57-year-old male who is well-known to the infectious disease service because of his multiple bouts of sepsis. Earlier this year the patient was hospitalized for multifocal pneumonia and MRSA was isolated from his sputum. After hospitalization he had improvement in completed his course of oral trimethoprim sulfamethoxazole with good resolution. He has had difficulties in the past with diabetes mellitus type 2 with poor control, severe coronary artery disease with several myocardial infarctions and chronic polyneuropathy. He does have a known history of gout and psoriasis that has been very difficult to control over time but have been better as of late. He did have several admissions where he was having difficulties with lactic acidosis that was thought to be medication induced. She was preparing for colonoscopy and had several bouts of diarrhea prior to starting the prep. Then patient developed dizziness weakness and apparently low blood pressure with fever and chills. He was brought into [facility] emergency center for evaluation. His temperature max has been 100.8, white count of 13.7, CK 2958, AST 147 and ALT 155, troponin 0.025, magnesium 0.9 and has been replaced. Initial lactic acid 3.5 and repeat is 1.1 He is status post 2 L of IV fluid. Chest x-ray showed pulmonary infiltrate bilaterally slightly increased on the left and unchanged on the right. Patient was given ceftriaxone and azithromycin in the emergency center and subsequent admitted to the [facility] floor. Pulmonary medicine is also on consult. When asked, patient states that he has been using his BiPAP but according to nursing he had the centering the night for only a brief period. Patient has had no nausea, vomiting or diarrhea this morning. According to the night filler he did have some liquid stools. Stool studies ordered include a C. difficile toxin, Cryptosporidium, Giardia, rotavirus and stool culture. 04/10/2018 patient is now worse with onset of high fever and altered mental status and worsening hypoxia. 04/11/2018 patient has had slight improvement this afternoon. His fever of 101.2 during the day has now declined to 99. He is much more awake and alert. Has been wearing his CPAP throughout the day with some improvement of his mental status. He does relate he feels better this evening. He is able to sit upright and utilize his urinal without difficulties and then start to eat his dinner. 04/12/2018 patient is with a somewhat difficult day that he's been somewhat sleepy today. The nurses insisting that he has his CPAP on at all times but seems to be helping. Upon arriving to the room he is arousable no was my name , smiles and laughs a few jokes. He does not relate that he is uncomfortable but just feels ill. 04/14/2018 patient is feeling considerably better today. Shortness of breath is improved. He is able to eat his dinner very well. Appetite is good. He was constipated this is now been resolved. He's been up to the commode without significant shortness of breath. Fevers have resolved. He has been seen by pulmonary critical care and there are no plans for bronchoscopy now that he is improved. Objective - Vital Signs Vital signs: Vital Signs Temp 98.3 F 04/14/18 14:50 Pulse 74 04/14/18 19:35 Resp 16 04/14/18 14:50 BP 129/73 04/14/18 14:50 Pulse Ox 98 04/14/18 15:35 Intake & Output 04/14/18 04/14/18 04/15/18 06:59 18:59 06:59 Intake Total 800 500 Output Total 300 Balance 500 500 Weight 96 kg Intake: Intake, IV Titration 500 Amount Vancomycin 1,750 mg In 500 Sodium Chloride 0.9% 500 ml @ 167 mls/hr IVPB Q16H [place] Rx#:[id number] Oral 800 Output: Urine 300 Other: Voiding Method Urinal Urinal # Voids 2 - Exam Gen: This is a obese 57-year-old male. awake and alert today. Was able to sit upright eat his dinner without difficulties. He recognizes me by name without difficulties HEENT: Head is atraumatic, normocephalic. Pupils equal, round. Sclerae is anicteric. Oral mucous membranes are slightly dry. No thrush noted. Patient is edentulous. NECK: Supple. No JVD. No lymphadenopathy. No thyromegaly. LUNGS: Clear to auscultation. No wheezes or rhonchi. No intercostal retractions. HEART: Regular rate and rhythm. No murmur. ABDOMEN: Soft. Bowel sounds are present. No masses. No tenderness. EXTREMITIES: 1+ pedal edema. Dorsalis pedis is weak bilaterally. John wraps were removed from both lower extremities, no significant skin lesions or open wounds. NEUROLOGICAL: Much more awake alert and interactive no acute deficits noted - Labs CBC & Chem 7: 04/14/18 08:57 04/14/18 08:57 Labs: Abnormal Lab Results - Last 24 Hours (Table) 04/14/18 04/14/18 04/14/18 Range/Units 02:01 08:57 08:57 RBC 3.90 L (4.30-5.90) m/uL Hgb 8.1 L (13.0-17.5) gm/dL Hct 28.5 L (39.0-53.0) % MCV 73.0 L (80.0-100.0) fL MCH 20.7 L (25.0-35.0) pg MCHC 28.4 L (31.0-37.0) g/dL RDW 17.5 H (11.5-15.5) % Lymphocytes # 0.6 L (1.0-4.8) k/uL Carbon Dioxide 34 H (22-30) mmol/L BUN 28 H (9-20) mg/dL Creatinine 1.34 H (0.66-1.25) mg/dL Glucose 102 H (74-99) mg/dL POC Glucose (mg/dL) 103 H (75-99) mg/dL Calcium 8.2 L (8.4-10.2) mg/dL 04/14/18 04/14/18 04/14/18 Range/Units 12:34 16:56 20:56 RBC (4.30-5.90) m/uL Hgb (13.0-17.5) gm/dL Hct (39.0-53.0) % MCV (80.0-100.0) fL MCH (25.0-35.0) pg MCHC (31.0-37.0) g/dL RDW (11.5-15.5) % Lymphocytes # (1.0-4.8) k/uL Carbon Dioxide (22-30) mmol/L BUN (9-20) mg/dL Creatinine (0.66-1.25) mg/dL Glucose (74-99) mg/dL POC Glucose (mg/dL) 159 H 186 H 238 H (75-99) mg/dL Calcium (8.4-10.2) mg/dL Microbiology - Last 24 Hours (Table) 04/12/18 18:00 Blood Culture - Preliminary Blood No Growth after 48 hours 04/10/18 13:27 Blood Culture - Preliminary Blood No Growth after 96 hours 04/08/18 20:30 Blood Culture - Preliminary Blood No Growth after 120 hours 04/12/18 20:01 Blood Culture - Preliminary Blood No Growth after 24 hours Microbiology 04/12/18 18:00 Blood Blood Culture - Preliminary No Growth after 48 hours 04/10/18 13:27 Blood Blood Culture - Preliminary No Growth after 96 hours 04/08/18 20:30 Blood Blood Culture - Preliminary No Growth after 120 hours 04/12/18 20:01 Blood Blood Culture - Preliminary No Growth after 24 hours 04/09/18 05:00 Urine,Clean Catch Urine Culture - Final Assessment and Plan (1) Fever Narrative/Plan: This pleasant 57-year-old gentleman is well-known to the service of multiple hospitalizations. Presents now with significant weakness and dizziness and lactic acidosis occurring after onset of copious diarrhea after prep for his colonoscopy. With hydration the patient is feeling slightly better at this time. The patient's chest x-ray was with some minimal change from the most recent x-ray with potential atelectasis or infiltrate. With his illness antibiotic therapy with ceftriaxone and azithromycin was started with concerns pneumonia. Cultures are currently in process are awaited. With hydration the patient is urged to feel considerably better. He also is having significant bilateral lower extremity edema. The patient relates that he spends a great deal of his time sitting upright in a chair, with his legs in a dependent position which of course worsens his edema. He does wrap them at times. It is noted since coming to Hospital, having legs elevated and wraps in place he is remarkably improved. There is no significant cellulitis with ulcers in the legs at this time. The plan for now will be to monitor for any other evidence of infection, will hopefully limit his antibiotic therapy. We'll need input from gastroenterology possibly as an outpatient as to the next plan given that he has ongoing significant anemia and endoscopy was being performed to evaluate for a source of his anemia but had a significant difficulty with the prep with the profuse diarrhea resulting in weakness, volume contracture and dehydration induced lactic acidosis. As noted he was 8.4 and does not need transfusion at this time. 04/10/2018 patient is worse today withincreasing fever. With this further cultures are requested, intravenous Tylenol and addition of vancomycin is performed.patient does have a history of MRSA pneumonia and with chest xray concern to pneumonia especially with the fever is updated 04/11/2018 patient has improved today. Fever this afternoon has started to improve after the higher fever of earlier in the day. Mentations improving. Seems more comfortable. White count is 6.3. Cultures are pending. With his history is concerns to ongoing pneumonia possibly MRSA pneumonia. Is on multiple antibiotic therapy includes vancomycin was added yesterday with concerns to pneumonia. Follow-up chest x-ray and pulmonary consult follow-up are in progress. Patient states she's feeling better this afternoon. 04/12/2018 patient is having a bit of a rough day. On admission. He relates that his shortness of breath is stable with the CPAP in place. He still had a fever in the last 24 hours. Cultures are negative so far but he has not produced sputum culture. This is a some importance B[place] had MRSA pneumonia in the past. He has been related if he does not improve the bronchoscopy is planned. Blood cultures will be obtained if he has further fever. 04/14/2018 patient has shown marked improvement over the last couple of days. He is denying significant shortness of breath, does have his oxygen in place. His utilize CPAP throughout the day as needed. Is feeling much better. He's had this short walk and has been on the commode a couple of times today. He is able to eat without difficulties. His mentation is nearly at baseline. We'll arrange for 10 days of vancomycin at the time of discharge, will need PICC line also. Current Visit: Yes Status: Acute Code(s): R50.9 - FEVER, UNSPECIFIED SNOMED Code(s): 736505357 (2) Weakness Current Visit: Yes Status: Acute Code(s): R53.1 - WEAKNESS SNOMED Code(s) : 63037944 (3) Pneumonia Current Visit: No Status: Acute Code(s): J18.9 - PNEUMONIA, UNSPECIFIED ORGANISM SNOMED Code(s): 532237648
[2018-04-15 02:18] LABS: Glucose,Whole Blood 150 mg/dL (75-99)
[2018-04-15] MEDS: APIXABAN 5 MG TAB PO SCH ×2 (04:02→21:55)
[2018-04-15 04:58] LABS: INR 1.2 (<1.2); Prothrombin Time 11.8 sec (9.0-12.0)
[2018-04-15] MEDS ORDERED: VANCOMYCIN TROUGH DUE 1 EACH MISC MISCELLANE ONE (05:00)
[2018-04-15 07:22] LABS: Glucose,Whole Blood 66 mg/dL (75-99)
[2018-04-15 07:41] LABS: Glucose,Whole Blood 79 mg/dL (75-99)
[2018-04-15] MEDS: INSULIN DETEMIR 100 UNIT/ML 10 ML VIAL SQ SCH ×2 (07:44→21:57)
[2018-04-15] MEDS: metFORMIN 500 MG TAB PO SCH ×2 (07:44→17:49)
[2018-04-15] MEDS: INSULIN ASPART 100 UNIT/ML 1 ML 10 ML VIAL SQ SCH ×4 (07:44→21:57)
[2018-04-15] MEDS: NON-FORMULARY DRUG (Vitamin B Complex [Vitamin B Complex] 1 CAP) PO SCH (07:46)
[2018-04-15] MEDS: DULoxetine HCL 30 MG CAPSULE.DR PO SCH ×2 (07:47→21:55)
[2018-04-15] MEDS: METOPROLOL TARTRATE 25 MG TAB PO SCH ×2 (07:47→21:57)
[2018-04-15] MEDS: MULTIVITAMINS, THERA 1 EACH TAB PO SCH (07:47)
[2018-04-15] MEDS: GABAPENTIN 400 MG CAP PO SCH ×4 (07:47→21:58)
[2018-04-15] MEDS: FUROSEMIDE 40 MG TAB PO SCH (07:48)
[2018-04-15] MEDS: ETODOLAC 400 MG TAB PO SCH ×2 (07:48→21:55)
[2018-04-15] MEDS: LISINOPRIL 5 MG TAB PO SCH (07:48)
[2018-04-15] MEDS: PANTOPRAZOLE 40 MG TABLET PO SCH (07:48)
[2018-04-15] MEDS: AZITHROMYCIN 500 MG TAB PO SCH (07:48)
[2018-04-15] MEDS: HYDROCORTISONE 20 MG TAB PO SCH (07:48)
[2018-04-15] MEDS: IPRATROPIUM-ALBUTEROL 3 ML NEB INHALATION SCH ×4 (07:52→19:55)
[2018-04-15 11:57] LABS: Glucose,Whole Blood 149 mg/dL (75-99)
--- NOTE | 2018-04-15 12:27 | P.PN ---
Subjective Progress Note Date: 04/15/18 Principal diagnosis: Left lower lobe pneumonia, dehydration, weakness Pulmonary consult dated 04/09/2018 This is a 57-year-old male evaluated in the emergency room for low blood oxygen level is low blood sugars dizziness and just not feeling well. He also apparently complained of weakness. He apparently recently had a prep for a colonoscopy. Subsequent to that, the patient is complaining of just not feeling well dizziness lightheadedness and some fevers and chills. The patient is not really complaining of any respiratory complaints at this time. No significant cough or chest congestion. Not coughing up any phlegm. No chest pain or chest pressure. No palpitation. No nausea vomiting or diarrhea. He apparently did have a low blood pressure recently. Currently, the patient seemed be resting comfortably in fact he was sleeping when I first went into the room. Appears not have any distress whatsoever. Not a particularly good historian so most of the history is obtained from the ER ruth. The chest x-ray apparently showed some bibasilar infiltrates possibly bit worse on the left than on the right. The patient apparently has a history of diabetes heart failure myocardial infarction sleep apnea syndrome pneumonia previous right parapneumonic effusion requiring chest tube drainage carpal. tunnel release shingles pancreatitis neuropathy previous MRSA infection bypass grafting heart catheterization with stent many additional surgical procedures. On 04/10/2018 patient seen again in follow-up. Resting comfortably in bed, appears a bit fatigued, T denies any acute distress though, denies any worsening dyspnea. On 2 L per nasal cannula pulse ox is 91-94%, patient has been afebrile for greater than 24 hours. Urine and blood cultures remain negative to date. No new chest x-rays today, today's labs were reviewed, no leukocytosis, WBC is 6.3, hemoglobin is 8.3, electrolytes and renal profile essentially within normal limits. Patient is being treated with empiric antibiotics, he is on a combination of Zithromax and Rocephin. Clinically improving. On 04/11/2018 patient seen in follow-up on medical surgical floor. More awake on today's exam. Denies any worsening dyspnea. Patient continues to have fevers, T-max in the last 24 hours was 101.2F. No new labs today. Urine and blood cultures are negative to date. Means on 4 L per nasal cannula with pulse ox of 92 percent. Does wear BiPAP at night. Lung sounds are positive for scattered rhonchi, and rales at the bases, a combination of Rocephin, Zithromax , and vancomycin. he did have some diarrhea, does with tested for C. diff, and other stool studies. ID service is following. Progress note dated 04/12/2018 57-year-old male admitted with a diagnosis of bilateral pneumonia. His symptoms started as left lower lobe pneumonia but has progressed. His chest x- ray today shows diffuse bilateral infiltrates more left than right sided. In addition, the patient has a history of hypothyroidism, hypertension, GERD, hyperlipidemia, diabetes mellitus, adrenal insufficiency, heart failure, myocardial infarction, sleep apnea syndrome, history of pneumonia with parapneumonic effusion requiring chest tube drainage, shingles, bowel resection , bypass grafting, and multiple other medical problems and comorbidities. Clinically the patient looks about the same. The patient admits to feeling about the same. Admits to chest congestion cough and some minimal shortness of breath. Shortness of breath seems to bother him most when he is up exerting himself. The patient's microbiology thus far has been negative. He is seeing Dr. Hardin and infectious disease. Progress note dated 04/13/2018 57-year-old male admitted with a diagnosis of bilateral pneumonia as well as fluid overload/heart failure. His chest x-ray continues to show diffuse bilateral infiltrates more left than right sided. Today, I'm going go ahead and increase his diuretic. I'll give him 40 of Lasix IV push and then increase his Lasix orally to 40 by mouth twice a day. He does have a history of hypothyroidism hypertension GERD hyperlipidemia diabetes adrenal insufficiency heart failure myocardial infarction sleep apnea syndrome pneumonia with parapneumonic effusion requiring chest tube drainage shingles bowel resection bypass grafting as well as multiple other medical problems and comorbidities. He is clinically not a well man. Dr. Hardin is seen the patient for an from infectious disease. His medications are reviewed. Everything seems appropriate. I will see whether or not increasing his diuretic improves his chest x-ray. On 04/14/2018 patient seen in follow-up on medical surgical floor. He is awake , alert, responding appropriately, he wear his BiPAP. Afebrile. Vital signs are stable, blood cultures and urine remain negative to date. The -1660 mL fluid balance, his weight is down to 96 kg, down 0.5 kg in the last 24 hours. Lung sounds reveal fine crackles, more so on the right, at the bases. Means on empiric antibiotics, in the form of Zithromax, and Levaquin, ID service is following, patient's now on oral diuretics. Improving, although remains generally weak, he has been up out of bed with assistance, however did not ambulate. The patient is seen again today 04/15/2018 in follow-up on the regular medical floor. He is resting quite comfortably in bed. He is awake and alert in no acute distress. He did wear his BiPAP throughout the evening and during the day while napping. He denies any worsening shortness of breath, cough or congestion. He is feeling better today as compared to yesterday. The plan is for PICC line insertion for ongoing antibiotic treatment. Objective - Vital Signs Vital signs: Vital Signs Temp 99.1 F 04/15/18 07:00 Pulse 76 04/15/18 12:15 Resp 18 04/15/18 07:00 BP 132/68 04/15/18 07:00 Pulse Ox 98 04/15/18 07:00 Intake & Output 04/14/18 04/15/18 04/15/18 18:59 06:59 18:59 Intake Total 500 650 125 Output Total 1700 200 Balance 500 -1050 -75 Intake: Intake, IV Titration 500 Amount Vancomycin 1,750 mg In 500 Sodium Chloride 0.9% 500 ml @ 167 mls/hr IVPB Q16H [facility] Rx#:[id number] Oral 650 125 Output: Urine 1700 200 Other: Voiding Method Urinal Urinal Urinal # Voids 2 1 # Bowel Movements 0 - Exam No acute distress, oriented 3. Looking older than his stated age of 57. HEENT examination is grossly unremarkable. Mucous membranes are moist. No oral lesions. Neck supple. Full range of motion. No adenopathy thyromegaly or neck vein distention. Cardiovascular examination reveals regular rhythm rate. S1-S2 normal. No S3 or S4. No discernible murmur noted. Heart sounds are distant. Lungs reveal fine bibasilar rales, more so on the right base Abdomen soft bowel sounds are heard. No masses or tenderness. Extremities are intact. No cyanosis clubbing, 1+ pitting edema in bilateral lower extremities. Skin is without rash or lesion. Neurologic examination is brief but nonfocal. - Labs CBC & Chem 7: 04/14/18 08:57 04/14/18 08:57 Labs: Abnormal Lab Results - Last 24 Hours (Table) 04/14/18 04/14/18 04/14/18 Range/Units 12:34 16:56 20:56 INR (<1.2) POC Glucose (mg/dL) 159 H 186 H 238 H (75-99) mg/dL Vancomycin Trough ug/mL 04/15/18 04/15/18 04/15/18 Range/Units 02:13 03:45 03:45 INR 1.2 H (<1.2) POC Glucose (mg/dL) 150 H (75-99) mg/dL Vancomycin Trough 32.0 H* ug/mL 04/15/18 04/15/18 Range/Units 07:19 11:51 INR (<1.2) POC Glucose (mg/dL) 66 L 149 H (75-99) mg/dL Vancomycin Trough ug/mL Microbiology - Last 24 Hours (Table) 04/08/18 20:30 Blood Culture - Final Blood No Growth after 144 hours 04/14/18 15:16 Stool Culture - Preliminary Stool 04/12/18 20:01 Blood Culture - Preliminary Blood No Growth after 48 hours 04/12/18 18:00 Blood Culture - Preliminary Blood No Growth after 48 hours 04/10/18 13:27 Blood Culture - Preliminary Blood No Growth after 96 hours Assessment and Plan Assessment: Assessment: Weakness, dehydration, dizziness and lightheadedness, which may relate to left lower lobe pneumonia. History of hypothyroidism History of hypertension History of GERD History of hyperlipidemia History of diabetes mellitus Adrenal insufficiency History of heart failure Previous history of myocardial infarction History of sleep apnea syndrome, currently on CPAP Previous history of pneumonia with parapneumonic effusion requiring chest tube drainage Previous history of shingles Previous bowel resection Status post bypass grafting Multiple other medical problems and comorbidities Plan: The patient is seen by Dr. Lopez. He is improved today as compared to yesterday. We'll continue antibiotics per ID services. The plan is for PICC line insertion today. Possible home versus extended care. Case management and discharge planning is in place. I, the cosigning physician, performed a history & physical examination of the patient. Lungs sounds with few scattered rhonchi more so on the left lower lobe. Maintaining good O2 saturations in the 90s on 4 L/m per nasal cannula. I discussed the assessment and plan of care with my nurse practitioner, Cheryl Stearns. I attest to the above note as dictated by her.
--- NOTE | 2018-04-15 12:29 | P.PN ---
Subjective Progress Note Date: 04/15/18 57-year-old male who presented to the emergency room with a chief complaint of weakness and fever. The patient reports scheduled for an outpatient colonoscopy today. He reports approximately 3-4 episodes of diarrhea yesterday before starting any bowel prep. He took his dulcolax and was supposed to be wait 2 hours to begin the rest of his prep. He reports about 90 minutes after taking his dulcolax, he begin to feel achy and weak all over. He reports he had a low grade fever at home of 99.9. He denies shortness of breath or cough. Denies chest pain or pressure. Denies lightheadedness or dizziness. Denies abdominal pain. 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 He has also had a myocardial infarction 2006 and 2007. His past surgical history includes bowel resection, cholecystectomy, coronary artery bypass graft, heart catheterization with multiple stents, hernia repair, and joint replacements. He has had multiple hospitalizations for pneumonia and sepsis. Chest x-ray: Increasing bibasilar infiltrates greater in the right than the left. Laboratory data: WBC 13.7. Hemoglobin 8.6. Blood count 325. Sodium 142. Potassium 4.3. BUN 34. Creatinine 1.0. Glucose 100. Magnesium 0.9. AST 147. ALT 155. Total in kinase 2958. Troponin 0.025. Lactic acid was 3.5. The patient received 3 L of normal saline. Repeat lactic acid is 1.1. Urinalysis reveals 1+ proteinuria, 3 hyaline casts, rare mucus, but otherwise unremarkable. The patient was admitted to the hospital under the care of Dr. Romero. Consultations were placed to pulmonary. 04/10/2018-04/14/2018: Notes per covering provider 04/15/2018 Patient seen and examined at the bedside on rounds with Dr. Romero. Patient remains sleepy this morning. He states he did not sleep that well last night. He reports wearing CPAP during the night. Patients cultures remain negative thus far. Patient is to receive a PICC line today. Dr. Hardin recommends 10 days of Vanco at the time of discharge due to hx of MRSA pneumonia. Case management is working on arranging infusions outpatient. Patient denies shortness of breath. Denies chest pain or pressure. Denies nausea or vomiting. Patient states he's been tolerating PO intake. Repeat chest x-ray from yesterday favors CHF, tiny bilateral pleural effusions, mild to moderate central vascular congestion. Bibasilar infiltrates are visualized again, without worsening. Patient remains on Lasix 40 mg by mouth daily. Discharge planning includes home, likely tomorrow. Objective - Vital Signs Vital signs: Vital Signs Temp 99.1 F 04/15/18 07:00 Pulse 72 04/15/18 12:03 Resp 18 04/15/18 07:00 BP 132/68 04/15/18 07:00 Pulse Ox 98 04/15/18 07:00 Intake & Output 04/14/18 04/15/18 04/15/18 18:59 06:59 18:59 Intake Total 500 650 125 Output Total 1700 200 Balance 500 -1050 -75 Intake: Intake, IV Titration 500 Amount Vancomycin 1,750 mg In 500 Sodium Chloride 0.9% 500 ml @ 167 mls/hr IVPB Q16H [facility] Rx#:[id number] Oral 650 125 Output: Urine 1700 200 Other: Voiding Method Urinal Urinal Urinal # Voids 2 1 # Bowel Movements 0 - Exam GENERAL: This is a 57-year-old male in no apparent distress at the time of examination. Pleasant and cooperative. HEENT: Head is atraumatic, normocephalic. Pupils are equal, round, and reactive to light. Sclerae anicteric. Conjunctivae are clear. Mucus membranes of the mouth are moist. Neck is supple. RESPIRATORY: Clear to ausculation anteriorly. No wheezes, rales, or rhonchi. No use of accessory muscles. Patient maintaining oxygen saturation greater than 92%. No chest wall tenderness is noted on palpation or with deep breathing. CARDIOVASCULAR: Regular rate and rhythm. S1 and S2 noted. No systolic or diastolic murmur auscultated. No JVD noted. No S3 or S4 noted. GASTROINTESTINAL: No distention noted. Abdomen soft and round. Normal active bowel sounds auscultated x 4 quadrants. No pain or tenderness noted upon palpation. INTEGUMENTARY: No cyanosis. No jaundice. No rashes noted. No cellulitis noted. EXTREMITIES: 2+ peripheral pulses. 2+ bilateral lower extremity edema. No calf tenderness noted. NEUROLOGIC: Cranial nerves II-XII intact. PSYCHIATRIC: Appears sleepy. Patient is oriented X 3. Appropriate affect. Intact judgement and insight. - Labs CBC & Chem 7: 04/14/18 08:57 04/14/18 08:57 Labs: Abnormal Lab Results - Last 24 Hours (Table) 04/14/18 04/14/18 04/14/18 Range/Units 12:34 16:56 20:56 INR (<1.2) POC Glucose (mg/dL) 159 H 186 H 238 H (75-99) mg/dL Vancomycin Trough ug/mL 04/15/18 04/15/18 04/15/18 Range/Units 02:13 03:45 03:45 INR 1.2 H (<1.2) POC Glucose (mg/dL) 150 H (75-99) mg/dL Vancomycin Trough 32.0 H* ug/mL 04/15/18 04/15/18 Range/Units 07:19 11:51 INR (<1.2) POC Glucose (mg/dL) 66 L 149 H (75-99) mg/dL Vancomycin Trough ug/mL Microbiology - Last 24 Hours (Table) 04/08/18 20:30 Blood Culture - Final Blood No Growth after 144 hours 04/14/18 15:16 Stool Culture - Preliminary Stool 04/12/18 20:01 Blood Culture - Preliminary Blood No Growth after 48 hours 04/12/18 18:00 Blood Culture - Preliminary Blood No Growth after 48 hours 04/10/18 13:27 Blood Culture - Preliminary Blood No Growth after 96 hours Assessment and Plan Plan: ASSESSMENT: Bibasilar infiltrates worse on the left than right, suspect pneumonia, suspect MRSA pneumonia due to patients history Diarrhea, patient reports multiple episodes of diarrhea prior to beginning bowel prep, etiology unknown, may be secondary to virus, stool cultures negative Dehydration, present on admission, likely secondary to diarrhea, resolved Fever of unknown origin, may be secondary to possible pneumonia, cultures negative Elevated lactic acid, improving with IV hydration, may be secondary to dehydration Sepsis, present on admission, suspect due to pneumonia, improving Paroxysmal atrial fibrillation, maintained on long-term anticoagulation with Eliquis Coronary artery disease with previous coronary artery bypass grafting and previous stent placement Diabetes mellitus, type II Multiple previous hospital admissions for MRSA pneumonia and sepsis History of previous pneumonia requiring thoracotomy and chest tube placement Obstructive sleep apnea, questionable compliance with CPAP Previous cellulitis with MRSA Hyperlipidemia Osteoarthritis Hypothyroidism Obesity: BMI 35.6 Fluid overload/acute exacerbation of systolic congestive heart failure, improving PLAN: Patient to receive PICC line today. Anticipate discharge home tomorrow. Per infectious disease recommendations, patient will be discharged home on a 10 day course of vancomycin. Case management working on outpatient infusion arrangements. Increase activity as tolerated. Nurse practitioner note has been reviewed by physician. Signing provider agrees with the documented findings, assessment, and plan of care.
[2018-04-15] MEDS: HYDROcodone/APAP 10-325MG 1 EACH TAB PO PRN ×2 (13:25→21:59)
--- NOTE | 2018-04-15 14:53 | IR ---
PICC LINE PLACEMENT: HISTORY: Infection requiring long-term antibiotic therapy PROCEDURE: Ultrasound and fluoroscopic guidance of PICC line placement. COMPLICATIONS: None ANESTHESIA: 1. 1% Lidocaine locally. FINDINGS/TECHNIQUE: The procedure was explained to the patient. The risks, complications, benefits and alternatives were discussed and any questions were answered. Informed consent was obtained. The patient was placed supine on the fluoroscopic table and prepped and draped in the usual sterile [facility] ion. Utilizing a 21 gauge needle and sonographic and fluoroscopic guidance, access in the vein was achieved and there is placement of a 0.018 guidewire. The vein is patent. A 4-F sheath was placed o rick the guidewire. The guidewire and dilator were removed and a 4-F. PICC line was placed through th e sheath with the tip at the level of the SVC. The sheath was removed, the catheter was flushed and sutured into position. The patient was stable throughout the procedure and remained stable upon disc harge from the Department of Radiology. The vein puncture was patent under ultrasound. A fournier scale image was obtained to document patency of the vein punctured. All elements of the maximal barrier technique were utilized. FLUOROSCOPY TIME: 0.1 minute, one image submitted IMPRESSION: Successful PICC line placement under ultrasound and fluoroscopic guidance.
[2018-04-15 15:10] VITALS: BMI 35.2
[2018-04-15] MEDS: VANCOMYCIN 1,500 MG in SODIUM CHLORIDE 0.9% 250 ML IVPB SCH (15:25)
[2018-04-15 16:45] LABS: Glucose,Whole Blood 186 mg/dL (75-99)
[2018-04-15 20:45] LABS: Glucose,Whole Blood 234 mg/dL (75-99)
[2018-04-15] MEDS: amLODIPine 5 MG TAB PO SCH (21:54)
[2018-04-15] MEDS: ATORVASTATIN 80 MG TAB PO SCH (21:55)
[2018-04-15] MEDS: MONTELUKAST 10 MG TAB PO SCH (21:56)
[2018-04-15] MEDS: LEVOTHYROXINE 50 MCG TAB PO SCH (21:56)
--- NOTE | 2018-04-15 23:34 | P.PN ---
Subjective Progress Note Date: 04/15/18 57-year-old male who is well-known to the infectious disease service because of his multiple bouts of sepsis. Earlier this year the patient was hospitalized for multifocal pneumonia and MRSA was isolated from his sputum. After hospitalization he had improvement in completed his course of oral trimethoprim sulfamethoxazole with good resolution. He has had difficulties in the past with diabetes mellitus type 2 with poor control, severe coronary artery disease with several myocardial infarctions and chronic polyneuropathy. He does have a known history of gout and psoriasis that has been very difficult to control over time but have been better as of late. He did have several admissions where he was having difficulties with lactic acidosis that was thought to be medication induced. She was preparing for colonoscopy and had several bouts of diarrhea prior to starting the prep. Then patient developed dizziness weakness and apparently low blood pressure with fever and chills. He was brought into [facility] emergency center for evaluation. His temperature max has been 100.8, white count of 13.7, CK 2958, AST 147 and ALT 155, troponin 0.025, magnesium 0.9 and has been replaced. Initial lactic acid 3.5 and repeat is 1.1 He is status post 2 L of IV fluid. Chest x-ray showed pulmonary infiltrate bilaterally slightly increased on the left and unchanged on the right. Patient was given ceftriaxone and azithromycin in the emergency center and subsequent admitted to the [facility] floor. Pulmonary medicine is also on consult. When asked, patient states that he has been using his BiPAP but according to nursing he had the centering the night for only a brief period. Patient has had no nausea, vomiting or diarrhea this morning. According to the shift nurse manager he did have some liquid stools. Stool studies ordered include a C. difficile toxin, Cryptosporidium, Giardia, rotavirus and stool culture. 04/10/2018 patient is now worse with onset of high fever and altered mental status and worsening hypoxia. 04/11/2018 patient has had slight improvement this afternoon. His fever of 101.2 during the day has now declined to 99. He is much more awake and alert. Has been wearing his CPAP throughout the day with some improvement of his mental status. He does relate he feels better this evening. He is able to sit upright and utilize his urinal without difficulties and then start to eat his dinner. 04/12/2018 patient is with a somewhat difficult day that he's been somewhat sleepy today. The nurses insisting that he has his CPAP on at all times but seems to be helping. Upon arriving to the room he is arousable no was my name , smiles and laughs a few jokes. He does not relate that he is uncomfortable but just feels ill. 04/14/2018 patient is feeling considerably better today. Shortness of breath is improved. He is able to eat his dinner very well. Appetite is good. He was constipated this is now been resolved. He's been up to the commode without significant shortness of breath. Fevers have resolved. He has been seen by pulmonary critical care and there are no plans for bronchoscopy now that he is improved. 04/15/2018 patient has had further improvement. Working with the discharge planners for his course of outpatient intravenous antibiotic therapy with vancomycin. He is afebrile, breathing is improved he is looking forward to going home. He will not go to a rehab facility. Objective - Vital Signs Vital signs: Vital Signs Temp 99.3 F 04/15/18 23:00 Pulse 87 04/15/18 23:00 Resp 16 04/15/18 23:00 BP 111/68 04/15/18 23:00 Pulse Ox 93 L 04/15/18 23:00 Intake & Output 04/15/18 04/15/18 04/16/18 06:59 18:59 06:59 Intake Total 650 249 Output Total 1700 700 Balance -1050 -451 Weight 99 kg 96 kg Intake: Oral 650 249 Output: Urine 1700 700 Other: Voiding Method Urinal Urinal # Voids 2 1 # Bowel Movements 0 - Exam Gen: This is a obese 57-year-old male. awake and alert today. Was able to sit upright eat his dinner without difficulties. He recognizes me by name without difficulties HEENT: Head is atraumatic, normocephalic. Pupils equal, round. Sclerae is anicteric. Oral mucous membranes are slightly dry. No thrush noted. Patient is edentulous. NECK: Supple. No JVD. No lymphadenopathy. No thyromegaly. LUNGS: Clear to auscultation. No wheezes or rhonchi. No intercostal retractions. HEART: Regular rate and rhythm. No murmur. ABDOMEN: Soft. Bowel sounds are present. No masses. No tenderness. EXTREMITIES: 1+ pedal edema. Dorsalis pedis is weak bilaterally. John wraps were removed from both lower extremities, no significant skin lesions or open wounds. NEUROLOGICAL: Much more awake alert and interactive no acute deficits noted - Labs CBC & Chem 7: 04/14/18 08:57 04/14/18 08:57 Labs: Abnormal Lab Results - Last 24 Hours (Table) 04/15/18 04/15/18 04/15/18 Range/Units 02:13 03:45 03:45 INR 1.2 H (<1.2) POC Glucose (mg/dL) 150 H (75-99) mg/dL Vancomycin Trough 32.0 H* ug/mL 04/15/18 04/15/18 04/15/18 Range/Units 07:19 11:51 16:39 INR (<1.2) POC Glucose (mg/dL) 66 L 149 H 186 H (75-99) mg/dL Vancomycin Trough ug/mL 04/15/18 Range/Units 20:43 INR (<1.2) POC Glucose (mg/dL) 234 H (75-99) mg/dL Vancomycin Trough ug/mL Microbiology - Last 24 Hours (Table) 04/12/18 20:01 Blood Culture - Preliminary Blood No Growth after 72 hours 04/12/18 18:00 Blood Culture - Preliminary Blood No Growth after 72 hours 04/10/18 13:27 Blood Culture - Preliminary Blood No Growth after 120 hours 04/08/18 20:30 Blood Culture - Final Blood No Growth after 144 hours 04/14/18 15:16 Stool Culture - Preliminary Stool Laboratory Results WBC 7.8 k/uL (3.8-10.6) 04/14/18 08:57 RBC 3.90 m/uL (4.30-5.90) L 04/14/18 08:57 Hgb 8.1 gm/dL (13.0-17.5) L 04/14/18 08:57 Hct 28.5 % (39.0-53.0) L 04/14/18 08:57 MCV 73.0 fL (80.0-100.0) L 04/14/18 08:57 MCH 20.7 pg (25.0-35.0) L 04/14/18 08:57 MCHC 28.4 g/dL (31.0-37.0) L 04/14/18 08:57 RDW 17.5 % (11.5-15.5) H 04/14/18 08:57 Plt Count 185 k/uL (150-450) 04/14/18 08:57 Neutrophils % 82 % 04/14/18 08:57 Lymphocytes % 8 % 04/14/18 08:57 Monocytes % 5 % 04/14/18 08:57 Eosinophils % 2 % 04/14/18 08:57 Basophils % 0 % 04/14/18 08:57 Neutrophils # 6.4 k/uL (1.3-7.7) 04/14/18 08:57 Lymphocytes # 0.6 k/uL (1.0-4.8) L 04/14/18 08:57 Monocytes # 0.4 k/uL (0-1.0) 04/14/18 08:57 Eosinophils # 0.2 k/uL (0-0.7) 04/14/18 08:57 Basophils # 0.0 k/uL (0-0.2) 04/14/18 08:57 Hypochromasia Marked 04/14/18 08:57 Poikilocytosis Slight 04/14/18 08:57 Anisocytosis Slight 04/14/18 08:57 Microcytosis Moderate 04/14/18 08:57 PT 11.8 sec (9.0-12.0) 04/15/18 03:45 INR 1.2 (<1.2) H 04/15/18 03:45 APTT 19.2 sec (22.0-30.0) L 04/08/18 20:15 Sodium 141 mmol/L (137-145) 04/14/18 08:57 Potassium 3.5 mmol/L (3.5-5.1) 04/14/18 08:57 Chloride 99 mmol/L (98-107) 04/14/18 08:57 Carbon Dioxide 34 mmol/L (22-30) H 04/14/18 08:57 Anion Gap 8 mmol/L 04/14/18 08:57 BUN 28 mg/dL (9-20) H 04/14/18 08:57 Creatinine 1.34 mg/dL (0.66-1.25) H 04/14/18 08:57 Est GFR (CKD-EPI)AfAm 67 (>60 ml/min/1.73 sqM) 04/14/18 08:57 Est GFR (CKD-EPI)NonAf 58 (>60 ml/min/1.73 sqM) 04/14/18 08:57 Glucose 102 mg/dL (74-99) H 04/14/18 08:57 POC Glucose (mg/dL) 234 mg/dL (75-99) H 04/15/18 20:43 POC Glu [employer] Sampler ID Meena Allen 04/15/18 20:43 Lactic Ac Sepsis Rflx Y 04/08/18 20:49 Plasma Lactic Acid Freddy 0.9 mmol/L (0.7-2.0) 04/10/18 17:48 Calcium 8.2 mg/dL (8.4-10.2) L 04/14/18 08:57 Phosphorus 4.3 mg/dL (2.5-4.5) 04/08/18 20:15 Magnesium 1.7 mg/dL (1.6-2.3) 04/09/18 08:57 Total Bilirubin 0.4 mg/dL (0.2-1.3) 04/09/18 08:57 AST 94 U/L (17-59) H 04/09/18 08:57 ALT 123 U/L (21-72) H 04/09/18 08:57 Alkaline Phosphatase 83 U/L (38-126) 04/09/18 08:57 Total Creatine Kinase 2958 U/L (55-170) H 04/08/18 20:15 CK-MB (CK-2) 25.6 ng/mL (0.0-2.4) H* 04/08/18 20:15 CK-MB (CK-2) Rel Index 04/08/18 20:15 Troponin I 0.025 ng/mL (0.000-0.034) 04/08/18 20:15 NT-Pro-B Natriuret Pep 6300 pg/mL 04/12/18 07:17 Total Protein 5.9 g/dL (6.3-8.2) L 04/09/18 08:57 Albumin 3.2 g/dL (3.5-5.0) L 04/09/18 08:57 Urine Color Yellow 04/09/18 05:00 Urine Appearance Clear (Clear) 04/09/18 05:00 Urine pH 5.5 (5.0-8.0) 04/09/18 05:00 Ur Specific [place] 1.012 (1.001-1.035) 04/09/18 05:00 Urine Protein 1+ (Negative) H 04/09/18 05:00 Urine Glucose (UA) Negative (Negative) 04/09/18 05:00 Urine Ketones Negative (Negative) 04/09/18 05:00 Urine Blood Negative (Negative) 04/09/18 05:00 Urine Nitrite Negative (Negative) 04/09/18 05:00 Urine Bilirubin Negative (Negative) 04/09/18 05:00 Urine Urobilinogen <2.0 mg/dL (<2.0) 04/09/18 05:00 Ur Leukocyte Esterase Negative (Negative) 04/09/18 05:00 Urine RBC <1 /hpf (0-5) 04/09/18 05:00 Urine WBC <1 /hpf (0-5) 04/09/18 05:00 Ur Squamous Epith Cells <1 /hpf (0-4) 04/09/18 05:00 Hyaline Casts 3 /lpf (0-2) H 04/09/18 05:00 Urine Mucus Rare /hpf (None) H 04/09/18 05:00 Stool Rotavirus Antigen Negative (Negative) 04/14/18 15:16 Stl Cryptosporidium Ag Negative (Negative) 04/14/18 15:16 Stool Giardia Source Stool 04/14/18 15:16 Stl Giardia Antigen Negative (Negative) 04/14/18 15:16 Vancomycin Trough 32.0 ug/mL H* 04/15/18 03:45 C. difficile (EIA) Intrp Negative (Negative) 04/14/18 15:15 Microbiology 04/12/18 20:01 Blood Blood Culture - Preliminary No Growth after 72 hours 04/12/18 18:00 Blood Blood Culture - Preliminary No Growth after 72 hours 04/10/18 13:27 Blood Blood Culture - Preliminary No Growth after 120 hours 04/08/18 20:30 Blood Blood Culture - Final No Growth after 144 hours 04/14/18 15:16 Stool Stool Culture - Preliminary 04/09/18 05:00 Urine,Clean Catch Urine Culture - Final Assessment and Plan (1) Fever Narrative/Plan: This pleasant 57-year-old gentleman is well-known to the service of multiple hospitalizations. Presents now with significant weakness and dizziness and lactic acidosis occurring after onset of copious diarrhea after prep for his colonoscopy. With hydration the patient is feeling slightly better at this time. The patient's chest x-ray was with some minimal change from the most recent x-ray with potential atelectasis or infiltrate. With his illness antibiotic therapy with ceftriaxone and azithromycin was started with concerns pneumonia. Cultures are currently in process are awaited. With hydration the patient is urged to feel considerably better. He also is having significant bilateral lower extremity edema. The patient relates that he spends a great deal of his time sitting upright in a chair, with his legs in a dependent position which of course worsens his edema. He does wrap them at times. It is noted since coming to Hospital, having legs elevated and wraps in place he is remarkably improved. There is no significant cellulitis with ulcers in the legs at this time. The plan for now will be to monitor for any other evidence of infection, will hopefully limit his antibiotic therapy. We'll need input from gastroenterology possibly as an outpatient as to the next plan given that he has ongoing significant anemia and endoscopy was being performed to evaluate for a source of his anemia but had a significant difficulty with the prep with the profuse diarrhea resulting in weakness, volume contracture and dehydration induced lactic acidosis. As noted he was 8.4 and does not need transfusion at this time. 04/10/2018 patient is worse today withincreasing fever. With this further cultures are requested, intravenous Tylenol and addition of vancomycin is performed.patient does have a history of MRSA pneumonia and with chest xray concern to pneumonia especially with the fever is updated 04/11/2018 patient has improved today. Fever this afternoon has started to improve after the higher fever of earlier in the day. Mentations improving. Seems more comfortable. White count is 6.3. Cultures are pending. With his history is concerns to ongoing pneumonia possibly MRSA pneumonia. Is on multiple antibiotic therapy includes vancomycin was added yesterday with concerns to pneumonia. Follow-up chest x-ray and pulmonary consult follow-up are in progress. Patient states she's feeling better this afternoon. 04/12/2018 patient is having a bit of a rough day. On admission. He relates that his shortness of breath is stable with the CPAP in place. He still had a fever in the last 24 hours. Cultures are negative so far but he has not produced sputum culture. This is a some importance cultures had MRSA pneumonia in the past. He has been related if he does not improve the bronchoscopy is planned. Blood cultures will be obtained if he has further fever. 04/14/2018 patient has shown marked improvement over the last couple of days. He is denying significant shortness of breath, does have his oxygen in place. His utilize CPAP throughout the day as needed. Is feeling much better. He's had this short walk and has been on the commode a couple of times today. He is able to eat without difficulties. His mentation is nearly at baseline. We'll arrange for 10 days of vancomycin at the time of discharge, will need PICC line also. 04/15/2018 the patient continues to have improvement. Coordinating with the discharge planners for his outpatient intravenous antibiotic therapy with vancomycin. Hopefully be done in the office given his concerns for expenses. He is afebrile mentation is improved and hopefully A for discharge home tomorrow. Current Visit: Yes Status: Acute Code(s): R50.9 - FEVER, UNSPECIFIED SNOMED Code(s): 011782668 (2) Weakness Current Visit: Yes Status: Acute Code(s): R53.1 - WEAKNESS SNOMED Code(s) : 81636446 (3) Pneumonia Current Visit: No Status: Acute Code(s): J18.9 - PNEUMONIA, UNSPECIFIED ORGANISM SNOMED Code(s): 542477003
[2018-04-16 01:49] LABS: Glucose,Whole Blood 121 mg/dL (75-99)
[2018-04-16] MEDS: HYDROcodone/APAP 10-325MG 1 EACH TAB PO PRN ×2 (03:05→09:57)
[2018-04-16] MEDS: IPRATROPIUM-ALBUTEROL 3 ML NEB INHALATION SCH ×2 (07:07→11:03)
[2018-04-16 07:51] LABS: Glucose,Whole Blood 50 mg/dL (75-99)
[2018-04-16 07:51] LABS: Glucose,Whole Blood 79 mg/dL (75-99)
[2018-04-16 07:51] LABS: Glucose,Whole Blood 69 mg/dL (75-99)
[2018-04-16 07:51] LABS: Glucose,Whole Blood 59 mg/dL (75-99)
[2018-04-16 07:53] VITALS: BP 127/76; RESP 18; TEMP 98.2
[2018-04-16] MEDS: HYDROCORTISONE 20 MG TAB PO SCH (09:57)
[2018-04-16] MEDS: MULTIVITAMINS, THERA 1 EACH TAB PO SCH (09:57)
[2018-04-16] MEDS: DULoxetine HCL 30 MG CAPSULE.DR PO SCH (09:57)
[2018-04-16] MEDS: GABAPENTIN 400 MG CAP PO SCH ×2 (09:57→12:45)
[2018-04-16] MEDS: FUROSEMIDE 40 MG TAB PO SCH (09:57)
[2018-04-16] MEDS: ETODOLAC 400 MG TAB PO SCH (09:57)
[2018-04-16] MEDS: APIXABAN 5 MG TAB PO SCH (09:57)
[2018-04-16] MEDS: LISINOPRIL 5 MG TAB PO SCH (09:57)
[2018-04-16] MEDS: AZITHROMYCIN 500 MG TAB PO SCH (09:58)
[2018-04-16] MEDS: PANTOPRAZOLE 40 MG TABLET PO SCH (09:58)
[2018-04-16] MEDS: INSULIN DETEMIR 100 UNIT/ML 10 ML VIAL SQ SCH (09:58)
[2018-04-16] MEDS: METOPROLOL TARTRATE 25 MG TAB PO SCH (09:58)
[2018-04-16] MEDS: INSULIN ASPART 100 UNIT/ML 1 ML 10 ML VIAL SQ SCH ×2 (10:01→12:45)
[2018-04-16] MEDS: metFORMIN 500 MG TAB PO SCH (10:01)
[2018-04-16 11:06] VITALS: PULSE 68
[2018-04-16] MEDS: VANCOMYCIN 1,500 MG in SODIUM CHLORIDE 0.9% 250 ML IVPB SCH (11:17)
[2018-04-16 11:31] LABS: Glucose,Whole Blood 277 mg/dL (75-99)
[2018-04-16 12:05] LABS: Anisocytosis Slight; Basophils % (A) 0 %; Eosinophils # (A) 0.2 k/uL (0-0.7); Eosinophils % (A) 2 %; HCT 28.4 % (39.0-53.0); HGB 8.4 gm/dL (13.0-17.5); Hypochromasia Marked; Lymphocytes # (A) 0.8 k/uL (1.0-4.8); Lymphocytes % (A) 6 %; MCHC 29.6 g/dL (31.0-37.0); Mean Platelet Volume 8.2; Microcytosis Marked; Monocytes # (A) 0.6 k/uL (0-1.0); Monocytes % (A) 4 %; Neutrophils # (A) 12.9 k/uL (1.3-7.7); Neutrophils % (A) 87 %; Platelet Count 253 k/uL (150-450); Poikilocytosis Slight; RBC 3.99 m/uL (4.30-5.90); WBC 14.9 k/uL (3.8-10.6)
[2018-04-16 12:23] LABS: Calcium 8.1 mg/dL (8.4-10.2); Potassium 3.8 mmol/L (3.5-5.1)
--- NOTE | 2018-04-16 13:33 | P.PN ---
Subjective Progress Note Date: 04/16/18 Principal diagnosis: Left lower lobe pneumonia, dehydration, weakness Pulmonary consult dated 04/09/2018 This is a 57-year-old male evaluated in the emergency room for low blood oxygen level is low blood sugars dizziness and just not feeling well. He also apparently complained of weakness. He apparently recently had a prep for a colonoscopy. Subsequent to that, the patient is complaining of just not feeling well dizziness lightheadedness and some fevers and chills. The patient is not really complaining of any respiratory complaints at this time. No significant cough or chest congestion. Not coughing up any phlegm. No chest pain or chest pressure. No palpitation. No nausea vomiting or diarrhea. He apparently did have a low blood pressure recently. Currently, the patient seemed be resting comfortably in fact he was sleeping when I first went into the room. Appears not have any distress whatsoever. Not a particularly good historian so most of the history is obtained from the ER ruth. The chest x-ray apparently showed some bibasilar infiltrates possibly bit worse on the left than on the right. The patient apparently has a history of diabetes heart failure myocardial infarction sleep apnea syndrome pneumonia previous right parapneumonic effusion requiring chest tube drainage carpal. tunnel release shingles pancreatitis neuropathy previous MRSA infection bypass grafting heart catheterization with stent many additional surgical procedures. On 04/10/2018 patient seen again in follow-up. Resting comfortably in bed, appears a bit fatigued, T denies any acute distress though, denies any worsening dyspnea. On 2 L per nasal cannula pulse ox is 91-94%, patient has been afebrile for greater than 24 hours. Urine and blood cultures remain negative to date. No new chest x-rays today, today's labs were reviewed, no leukocytosis, WBC is 6.3, hemoglobin is 8.3, electrolytes and renal profile essentially within normal limits. Patient is being treated with empiric antibiotics, he is on a combination of Zithromax and Rocephin. Clinically improving. On 04/11/2018 patient seen in follow-up on medical surgical floor. More awake on today's exam. Denies any worsening dyspnea. Patient continues to have fevers, T-max in the last 24 hours was 101.2F. No new labs today. Urine and blood cultures are negative to date. Means on 4 L per nasal cannula with pulse ox of 92 percent. Does wear BiPAP at night. Lung sounds are positive for scattered rhonchi, and rales at the bases, a combination of Rocephin, Zithromax , and vancomycin. he did have some diarrhea, does with tested for C. diff, and other stool studies. ID service is following. Progress note dated 04/12/2018 57-year-old male admitted with a diagnosis of bilateral pneumonia. His symptoms started as left lower lobe pneumonia but has progressed. His chest x- ray today shows diffuse bilateral infiltrates more left than right sided. In addition, the patient has a history of hypothyroidism, hypertension, GERD, hyperlipidemia, diabetes mellitus, adrenal insufficiency, heart failure, myocardial infarction, sleep apnea syndrome, history of pneumonia with parapneumonic effusion requiring chest tube drainage, shingles, bowel resection , bypass grafting, and multiple other medical problems and comorbidities. Clinically the patient looks about the same. The patient admits to feeling about the same. Admits to chest congestion cough and some minimal shortness of breath. Shortness of breath seems to bother him most when he is up exerting himself. The patient's microbiology thus far has been negative. He is seeing Dr. Hardin and infectious disease. Progress note dated 04/13/2018 57-year-old male admitted with a diagnosis of bilateral pneumonia as well as fluid overload/heart failure. His chest x-ray continues to show diffuse bilateral infiltrates more left than right sided. Today, I'm going go ahead and increase his diuretic. I'll give him 40 of Lasix IV push and then increase his Lasix orally to 40 by mouth twice a day. He does have a history of hypothyroidism hypertension GERD hyperlipidemia diabetes adrenal insufficiency heart failure myocardial infarction sleep apnea syndrome pneumonia with parapneumonic effusion requiring chest tube drainage shingles bowel resection bypass grafting as well as multiple other medical problems and comorbidities. He is clinically not a well man. Dr. Hardin is seen the patient for an from infectious disease. His medications are reviewed. Everything seems appropriate. I will see whether or not increasing his diuretic improves his chest x-ray. On 04/14/2018 patient seen in follow-up on medical surgical floor. He is awake , alert, responding appropriately, he wear his BiPAP. Afebrile. Vital signs are stable, blood cultures and urine remain negative to date. The -1660 mL fluid balance, his weight is down to 96 kg, down 0.5 kg in the last 24 hours. Lung sounds reveal fine crackles, more so on the right, at the bases. Means on empiric antibiotics, in the form of Zithromax, and Levaquin, ID service is following, patient's now on oral diuretics. Improving, although remains generally weak, he has been up out of bed with assistance, however did not ambulate. The patient is seen again today 04/15/2018 in follow-up on the regular medical floor. He is resting quite comfortably in bed. He is awake and alert in no acute distress. He did wear his BiPAP throughout the evening and during the day while napping. He denies any worsening shortness of breath, cough or congestion. He is feeling better today as compared to yesterday. The plan is for PICC line insertion for ongoing antibiotic treatment. She is seen today 04/16/2018 in follow-up on the regular medical floor. He remains awake and alert in no acute distress. He is breathing easier today as compared to yesterday. Intake and good O2 saturations in the mid 90s on room air. He's been afebrile. Cultures reveal no growth. White count 14.9. Hemoglobin 8.4. Creatinine 1.17. He is currently on vancomycin. PICC line has been placed in the left upper extremity. Objective - Vital Signs Vital signs: Vital Signs Temp 98.2 F 04/16/18 07:25 Pulse 68 04/16/18 11:17 Resp 18 04/16/18 08:00 BP 127/76 04/16/18 07:25 Pulse Ox 96 04/16/18 07:25 Intake & Output 04/15/18 04/16/18 04/16/18 18:59 06:59 18:59 Intake Total 249 Output Total 700 200 Balance -451 -200 Weight 96 kg 101.5 kg Intake: Oral 249 Output: Urine 700 200 Other: Voiding Method Urinal # Voids 2 1 # Bowel Movements 0 - Exam No acute distress, oriented 3. Looking older than his stated age of 57. HEENT examination is grossly unremarkable. Mucous membranes are moist. No oral lesions. Neck supple. Full range of motion. No adenopathy thyromegaly or neck vein distention. Cardiovascular examination reveals regular rhythm rate. S1-S2 normal. No S3 or S4. No discernible murmur noted. Heart sounds are distant. Lungs reveal fine bibasilar rales, more so on the right base Abdomen soft bowel sounds are heard. No masses or tenderness. Extremities are intact. No cyanosis clubbing, 1+ pitting edema in bilateral lower extremities. PICC line in left upper extremity. Skin is without rash or lesion. Neurologic examination is brief but nonfocal. - Labs CBC & Chem 7: 04/16/18 11:34 04/16/18 11:34 Labs: Abnormal Lab Results - Last 24 Hours (Table) 04/15/18 04/15/18 04/15/18 Range/Units 03:45 16:39 20:43 WBC (3.8-10.6) k/uL RBC (4.30-5.90) m/uL Hgb (13.0-17.5) gm/dL Hct (39.0-53.0) % MCV (80.0-100.0) fL MCH (25.0-35.0) pg MCHC (31.0-37.0) g/dL RDW (11.5-15.5) % Neutrophils # (1.3-7.7) k/uL Lymphocytes # (1.0-4.8) k/uL Chloride (98-107) mmol/L Carbon Dioxide (22-30) mmol/L BUN (9-20) mg/dL Glucose (74-99) mg/dL POC Glucose (mg/dL) 186 H 234 H (75-99) mg/dL Calcium (8.4-10.2) mg/dL Vancomycin Trough 32.0 H* ug/mL 04/16/18 04/16/18 04/16/18 Range/Units 01:47 07:15 07:17 WBC (3.8-10.6) k/uL RBC (4.30-5.90) m/uL Hgb (13.0-17.5) gm/dL Hct (39.0-53.0) % MCV (80.0-100.0) fL MCH (25.0-35.0) pg MCHC (31.0-37.0) g/dL RDW (11.5-15.5) % Neutrophils # (1.3-7.7) k/uL Lymphocytes # (1.0-4.8) k/uL Chloride (98-107) mmol/L Carbon Dioxide (22-30) mmol/L BUN (9-20) mg/dL Glucose (74-99) mg/dL POC Glucose (mg/dL) 121 H 50 L 59 L (75-99) mg/dL Calcium (8.4-10.2) mg/dL Vancomycin Trough ug/mL 04/16/18 04/16/18 04/16/18 Range/Units 07:35 11:28 11:34 WBC 14.9 H (3.8-10.6) k/uL RBC 3.99 L (4.30-5.90) m/uL Hgb 8.4 L (13.0-17.5) gm/dL Hct 28.4 L (39.0-53.0) % MCV 71.0 L (80.0-100.0) fL MCH 21.0 L (25.0-35.0) pg MCHC 29.6 L (31.0-37.0) g/dL RDW 18.0 H (11.5-15.5) % Neutrophils # 12.9 H (1.3-7.7) k/uL Lymphocytes # 0.8 L (1.0-4.8) k/uL Chloride (98-107) mmol/L Carbon Dioxide (22-30) mmol/L BUN (9-20) mg/dL Glucose (74-99) mg/dL POC Glucose (mg/dL) 69 L 277 H (75-99) mg/dL Calcium (8.4-10.2) mg/dL Vancomycin Trough ug/mL 04/16/18 Range/Units 11:34 WBC (3.8-10.6) k/uL RBC (4.30-5.90) m/uL Hgb (13.0-17.5) gm/dL Hct (39.0-53.0) % MCV (80.0-100.0) fL MCH (25.0-35.0) pg MCHC (31.0-37.0) g/dL RDW (11.5-15.5) % Neutrophils # (1.3-7.7) k/uL Lymphocytes # (1.0-4.8) k/uL Chloride 96 L (98-107) mmol/L Carbon Dioxide 36 H (22-30) mmol/L BUN 31 H (9-20) mg/dL Glucose 247 H (74-99) mg/dL POC Glucose (mg/dL) (75-99) mg/dL Calcium 8.1 L (8.4-10.2) mg/dL Vancomycin Trough ug/mL Microbiology - Last 24 Hours (Table) 04/12/18 20:01 Blood Culture - Preliminary Blood No Growth after 72 hours 04/12/18 18:00 Blood Culture - Preliminary Blood No Growth after 72 hours 04/10/18 13:27 Blood Culture - Preliminary Blood No Growth after 120 hours Assessment and Plan Assessment: Assessment: Weakness, dehydration, dizziness and lightheadedness, which may relate to left lower lobe pneumonia. History of hypothyroidism History of hypertension History of GERD History of hyperlipidemia History of diabetes mellitus Adrenal insufficiency History of heart failure Previous history of myocardial infarction History of sleep apnea syndrome, currently on CPAP Previous history of pneumonia with parapneumonic effusion requiring chest tube drainage Previous history of shingles Previous bowel resection Status post bypass grafting Multiple other medical problems and comorbidities Plan: The patient is seen by Dr. Lopez. He is improved today as compared to yesterday. We'll continue antibiotics per ID services. PICC line has been placed. Cleared for discharge from the pulmonary standpoint. Follow-up in our office in 1-2 weeks' time. I, the cosigning physician, performed a history & physical examination of the patient. Lungs sounds with few scattered rhonchi more so on the left lower lobe. Maintaining good O2 saturations in the 90s on room air. I discussed the assessment and plan of care with my nurse practitioner, Cheryl Stearns. I attest to the above note as dictated by her.
--- NOTE | 2018-04-16 14:53 | P.DS ---
Providers Date of admission: 04/08/18 21:08 Expected date of discharge: 04/16/18 Attending physician: Bautista Romero Consults: 04/08/18 22:26 Consult Physician Routine Consulting Provider: Malik Soto Consult Reason/Comments: pna Do you want consulting provider notified?: Yes 04/09/18 08:42 Consult Physician Routine Consulting Provider: Bran Hardin Consult Reason/Comments: fever, elevated lactic acid Do you want consulting provider notified?: Yes Primary care physician: Bautista Romero Hospital Course: 57-year-old male who presented to the emergency room with a chief complaint of weakness and fever. The patient reports scheduled for an outpatient colonoscopy today. He reports approximately 3-4 episodes of diarrhea yesterday before starting any bowel prep. He took his dulcolax and was supposed to be wait 2 hours to begin the rest of his prep. He reports about 90 minutes after taking his dulcolax, he begin to feel achy and weak all over. He reports he had a low grade fever at home of 99.9. He denies shortness of breath or cough. Denies chest pain or pressure. Denies lightheadedness or dizziness. Denies abdominal pain. 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 He has also had a myocardial infarction 2006 and 2007. His past surgical history includes bowel resection, cholecystectomy, coronary artery bypass graft, heart catheterization with multiple stents, hernia repair, and joint replacements. He has had multiple hospitalizations for pneumonia and sepsis. Chest x-ray: Increasing bibasilar infiltrates greater in the right than the left. Laboratory data: WBC 13.7. Hemoglobin 8.6. Blood count 325. Sodium 142. Potassium 4.3. BUN 34. Creatinine 1.0. Glucose 100. Magnesium 0.9. AST 147. ALT 155. Total in kinase 2958. Troponin 0.025. Lactic acid was 3.5. The patient received 3 L of normal saline. Repeat lactic acid is 1.1. Urinalysis reveals 1+ proteinuria, 3 hyaline casts, rare mucus, but otherwise unremarkable. The patient was admitted to the hospital under the care of Dr. Romero. Consultations were placed to pulmonary. The patient's cultures have remained negative throughout hospitalization. He does have a history of MRSA pneumonia. Infectious disease has been following patient during hospitalization. Patient received a PICC line on 04/16/2018. Dr. Hardin recommends course of vancomycin outpatient due to history of MRSA pneumonia, which he will receive at Dr. Hardin office. Vanco level was elevated during hospitalization. Vanco dose for 04/16/2018 help per KENYATTA uGerra with Dr. Hardin. Patient did have an acute exacerbation of congestive heart failure during hospitalization. He received IV Lasix with noted improvement. He has been transitioned back to by mouth Lasix: 20mg PO BID, which is the patients home dose. Home oxygen assessment was performed. On room air patients oxygen saturation as greater than 92% at rest and ambulation. Pulse ox was taken while patient was sleeping on room air and was noted to be in the 80s. Patient has a history of sleep apnea and has a CPAP machine. Patient was encouraged to use CPAP when sleeping at night or when napping. The patient states he is feeling well. He is back to his baseline. He has been cleared by pulmonary for discharge. He has also been cleared for discharge per Dr. Romero. He is to follow up on an outpatient basis. DISCHARGE DIAGNOSIS: Bibasilar infiltrates worse on the left than right, suspect pneumonia, suspect MRSA pneumonia due to patients history Diarrhea, patient reports multiple episodes of diarrhea prior to beginning bowel prep, etiology unknown, may be secondary to virus, stool cultures negative , resolved at time of discharge Dehydration, present on admission, likely secondary to diarrhea, resolved Fever of unknown origin, may be secondary to possible pneumonia, cultures negative Elevated lactic acid, improving with IV hydration, may be secondary to dehydration Sepsis, present on admission, suspect due to pneumonia, resolved at time of discharge Paroxysmal atrial fibrillation, maintained on long-term anticoagulation with Eliquis Coronary artery disease with previous coronary artery bypass grafting and previous stent placement Diabetes mellitus, type II Multiple previous hospital admissions for MRSA pneumonia and sepsis History of previous pneumonia requiring thoracotomy and chest tube placement Obstructive sleep apnea, questionable compliance with CPAP Previous cellulitis with MRSA Hyperlipidemia Osteoarthritis Hypothyroidism Obesity: BMI 35.6 Fluid overload/acute exacerbation of systolic congestive heart failure, improving Nurse practitioner note has been reviewed by physician. Signing provider agrees with the documented findings, assessment, and plan of care. Patient Condition at Discharge: Stable Plan - Discharge Summary Discharge Rx Participant: Yes New Discharge Prescriptions: New Vancomycin 1,750 mg IVPB Q24HR #10 bag Continue Levothyroxine Sodium [Synthroid] 50 mcg PO HS Omeprazole [PriLOSEC] 20 mg PO BID Nitroglycerin Sl Tabs [Nitrostat] 0.4 mg SUBLINGUAL Q5M PRN PRN Reason: Chest Pain Furosemide [Lasix] 20 mg PO BID amLODIPine [Norvasc] 5 mg PO HS Gabapentin [Neurontin] 800 mg PO QID fentaNYL 25MCG/HR PATCH [Duragesic 25MCG/HR] 1 patch TRANSDERM Q72H HYDROcodone/APAP 10-325MG [[place] 10-325] 1 tab PO Q4HR PRN PRN Reason: Pain Montelukast [Singulair] 10 mg PO HS #30 tab Insulin Aspart [NovoLOG Flexpen] See Protocol SQ ACHS Multivit-Min/FA/Lycopen/Lutein [Centrum Silver Tablet] 1 tab PO DAILY@1200 metFORMIN HCL 1,000 mg PO BID DULoxetine HCL [Cymbalta] 30 mg PO BID Insulin Glargine [Lantus] 26 unit SQ BID Etodolac [Lodine] 400 mg PO BID Atorvastatin [Lipitor] 80 mg PO HS Apixaban [Eliquis] 5 mg PO BID #60 tab Metoprolol Tartrate [Lopressor] 25 mg PO BID #60 tab Lisinopril [Zestril] 5 mg PO QAM Hydrocortisone [Cortef] 20 mg PO QAM Vitamin B Complex 1 cap PO DAILY Discharge Medication List Levothyroxine Sodium [Synthroid] 50 mcg PO HS 02/01/14 [History] Nitroglycerin Sl Tabs [Nitrostat] 0.4 mg SUBLINGUAL Q5M PRN 02/01/14 [History] Omeprazole [PriLOSEC] 20 mg PO BID 02/01/14 [History] Furosemide [Lasix] 20 mg PO BID 05/13/15 [History] Gabapentin [Neurontin] 800 mg PO QID 05/13/15 [History] amLODIPine [Norvasc] 5 mg PO HS 05/13/15 [History] HYDROcodone/APAP 10-325MG [[place] 10-325] 1 tab PO Q4HR PRN 07/17/16 [History] fentaNYL 25MCG/HR PATCH [Duragesic 25MCG/HR] 1 patch TRANSDERM Q72H 07/17/16 [ History] Montelukast [Singulair] 10 mg PO HS #30 tab 11/21/16 [Rx] Insulin Aspart [NovoLOG Flexpen] See Protocol SQ ACHS 02/10/17 [History] Multivit-Min/FA/Lycopen/Lutein [Centrum Silver Tablet] 1 tab PO DAILY@1200 02/10 [History] DULoxetine HCL [Cymbalta] 30 mg PO BID 09/25/17 [History] Etodolac [Lodine] 400 mg PO BID 09/25/17 [History] Insulin Glargine [Lantus] 26 unit SQ BID 09/25/17 [History] metFORMIN HCL 1,000 mg PO BID 09/25/17 [History] Atorvastatin [Lipitor] 80 mg PO HS 02/05/18 [History] Apixaban [Eliquis] 5 mg PO BID #60 tab 02/13/18 [Rx] Metoprolol Tartrate [Lopressor] 25 mg PO BID #60 tab 02/13/18 [Rx] Hydrocortisone [Cortef] 20 mg PO QAM 04/07/18 [History] Lisinopril [Zestril] 5 mg PO QAM 04/07/18 [History] Vitamin B Complex 1 cap PO DAILY 04/07/18 [History] Vancomycin 1,750 mg IVPB Q24HR #10 bag 04/14/18 [Rx] Follow up Appointment(s)/Referral(s): Bran Hardin MD [STAFF PHYSICIAN] - Malik Soto DO [Doctor of Osteopathic Medicine] - 05/09/18 2:00 pm Bautista Romero MD [Primary Care Provider] - 04/22/18 12:15 pm Ambulatory/Diagnostic Orders: Basic Metabolic Panel [LAB.AMB] Location: None Selected Complete Blood Count w/diff [LAB.AMB] Location: None Selected Patient Instructions/Handouts: Peripherally Inserted Central Catheters and Midline Catheters (DC), Pneumonia (DC) Activity/Diet/Wound Care/Special Instructions: [facility] Nurse will visit you in 24-48hr after discharge. For questions you can contact them at [phone]. You will be schedule for your IVABX at Dr Gardner's office on 04-17-2018 between 2 and 3:30pm. You can contact his office at [phone] for any questions. Diabetic, cardiac diet. Activity as tolerated, fall precautions. Discharge Disposition: HOME SELF-CARE
== END 2018-04-16 14:49 | disposition home health service (06) | DRG 871 ==
LOC: EC 19:49 → 4MS4W 21:08
PROVIDERS: ADMIT Family Medicine; ATTEND Family Medicine
PROC: 5A09557 Assistance with Respiratory Ventilation, Greater than 96 Consecutive Hours, Continuous Positive Airway Pressure (ICD-10-PCS; principal; 2018-04-10)
PROC: 02HV33Z Insertion of Infusion Device into Superior Vena Cava, Percutaneous Approach (ICD-10-PCS; 2018-04-15 14:18)
DX: A41.02 Sepsis due to Methicillin resistant Staphylococcus aureus (principal); J15.212 Pneumonia due to Methicillin resistant Staphylococcus aureus; I50.23 Acute on chronic systolic (congestive) heart failure; E27.40 Unspecified adrenocortical insufficiency; E87.2 Acidosis; E03.9 Hypothyroidism, unspecified; E11.42 Type 2 diabetes mellitus with diabetic polyneuropathy; E66.9 Obesity, unspecified; E78.5 Hyperlipidemia, unspecified; E83.42 Hypomagnesemia; E86.0 Dehydration; G47.33 Obstructive sleep apnea (adult) (pediatric); I11.0 Hypertensive heart disease with heart failure; I25.10 Atherosclerotic heart disease of native coronary artery without angina pectoris; I25.2 Old myocardial infarction; I48.0 Paroxysmal atrial fibrillation; K21.9 Gastro-esophageal reflux disease without esophagitis; K59.00 Constipation, unspecified; M19.90 Unspecified osteoarthritis, unspecified site; L40.9 Psoriasis, unspecified; M10.9 Gout, unspecified; M48.061 Spinal stenosis, lumbar region without neurogenic claudication; R19.7 Diarrhea, unspecified; R74.0 Nonspecific elevation of levels of transaminase and lactic acid dehydrogenase [LDH]; K86.9 Disease of pancreas, unspecified; R09.02 Hypoxemia; Z68.35 Body mass index [BMI] 35.0-35.9, adult; Z79.01 Long term (current) use of anticoagulants; Z79.4 Long term (current) use of insulin; Z79.899 Other long term (current) drug therapy; Z79.890 Hormone replacement therapy; Z88.5 Allergy status to narcotic agent; Z86.19 Personal history of other infectious and parasitic diseases; Z85.828 Personal history of other malignant neoplasm of skin; Z86.14 Personal history of Methicillin resistant Staphylococcus aureus infection; Z87.01 Personal history of pneumonia (recurrent); Z87.891 Personal history of nicotine dependence; Z90.49 Acquired absence of other specified parts of digestive tract; Z95.1 Presence of aortocoronary bypass graft; Z95.5 Presence of coronary angioplasty implant and graft; Z96.641 Presence of right artificial hip joint; Z83.3 Family history of diabetes mellitus; Z82.49 Family history of ischemic heart disease and other diseases of the circulatory system; Z80.3 Family history of malignant neoplasm of breast; Z80.1 Family history of malignant neoplasm of trachea, bronchus and lung; Z82.61 Family history of arthritis; Z83.79 Family history of other diseases of the digestive system; Z83.6 Family history of other diseases of the respiratory system
CPT/HCPCS: 36415; 36569; 71045; 71046; 76937; 77001; 80048; 80053; 80202; 81001; 82550; 82553; 83605; 83735; 83880; 84100; 84484; 85025; 85610; 85730; 87040; 87045; 87046; 87086; 87324; 87328; 87329; 87425; 93005; 94640; 94660; 94760; 96365; 96375; 99285

== ENCOUNTER 2018-04-28 23:10 | Inpatient (IN) | payer MEDICARE ==
[2018-04-29] MEDS ORDERED: cefTRIAXone IN SWFI 1,000 MG/10 ML SYRINGE IVP STA (00:09)
[2018-04-29] MEDS ORDERED: ACETAMINOPHEN TAB 325 MG TAB PO STA (00:09)
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
[2018-04-29 00:27] LABS: Anisocytosis Slight; Basophils % (A) 0 %; Eosinophils # (A) 0.2 k/uL (0-0.7); Eosinophils % (A) 2 %; HCT 28.4 % (39.0-53.0); Hypochromasia Marked; Lymphocytes # (A) 0.5 k/uL (1.0-4.8); Lymphocytes % (A) 5 %; MCH 19.8 pg (25.0-35.0); MCHC 28.2 g/dL (31.0-37.0); MCV 70.5 fL (80.0-100.0); Mean Platelet Volume 6.9; Microcytosis Marked; Monocytes # (A) 0.7 k/uL (0-1.0); Monocytes % (A) 6 %; Neutrophils # (A) 9.8 k/uL (1.3-7.7); Neutrophils % (A) 86 %; Platelet Count 389 k/uL (150-450); Poikilocytosis Slight; RBC 4.03 m/uL (4.30-5.90); RDW 19.1 % (11.5-15.5); WBC 11.4 k/uL (3.8-10.6)
[2018-04-29 00:28] LABS: Appearance,Urine Clear (Clear); Bilirubin,Urine 2+ (Negative); Blood,Urine Negative (Negative); Color,Urine Yellow; Glucose,Urine (UA) Negative (Negative); Ketones,Urine Negative (Negative); Leukocyte Esterase,Urine Negative (Negative); Mucus,Urine Rare /hpf; Nitrite,Urine Negative (Negative); Protein,Urine 1+ (Negative); RBC,Urine 1 /hpf (0-5); Urobilinogen,Urine <2.0 mg/dL (<2.0); WBC,Urine <1 /hpf (0-5)
[2018-04-29 00:37] LABS: INR 1.4 (<1.2); Partial Thromboplastin Time 26.2 sec (22.0-30.0); Prothrombin Time 12.7 sec (9.0-12.0)
[2018-04-29 00:43] LABS: Albumin 3.1 g/dL (3.5-5.0); Calcium 8.6 mg/dL (8.4-10.2); Total Bilirubin 0.7 mg/dL (0.2-1.3); Total Protein 6.7 g/dL (6.3-8.2)
[2018-04-29] MEDS ORDERED: SODIUM CHLORIDE 0.9% 3,000 ML IV ONE (01:00)
--- NOTE | 2018-04-29 01:05 | XR ---
EXAMINATION TYPE: XR chest 2V DATE OF EXAM: 04/29/2018 COMPARISON: NONE HISTORY: Fever TECHNIQUE: Frontal and lateral views of the chest are obtained. FINDINGS: There is coarsening of pulmonary interstitial markings. There are sternal wires. There is a plate with screws fixing the cervical spine. There is slight blunting of right costophrenic angle. IMPRESSION: Interstitial pulmonary infiltrate on the right side more than the left. No heart failure . There is pleural reaction at the right lung base. Right lung appears worse than last exam. This is consistent with inflammatory disease.
[2018-04-29] MEDS ORDERED: PIPERACILLIN-TAZOBACTAM 3.375 GM in DEXTROSE/WATER 1 50ML.BAG IVPB STA (02:29)
[2018-04-29] MEDS ORDERED: LEVOFLOXACIN 750MG-D5W PMX 750 MG in DEXTROSE/WATER 1 150ML.BAG IVPB STA (02:29)
[2018-04-29] MEDS ORDERED: ALBUTEROL NEBULIZED 2.5 MG/3 ML INHALATION PRN (02:29)
[2018-04-29] MEDS ORDERED: PNEUMONIA PROTOCOL UTILIZED 1 EACH MISC PO PRN (02:29)
[2018-04-29] MEDS ORDERED: NITROGLYCERIN SL TABS 0.4 MG TAB SUBLINGUAL PRN (02:33)
[2018-04-29] MEDS ORDERED: VANCOMYCIN IV PER PHARMACY 1 EACH MISC MISCELLANE PRN (02:34)
[2018-04-29] MEDS ORDERED: VANCOMYCIN 1,750 MG in SODIUM CHLORIDE 0.9% 500 ML IVPB ONE (03:00)
[2018-04-29] MEDS ORDERED: PIPERACILLIN-TAZOBACTAM 3.375 GM in DEXTROSE/WATER 1 50ML.BAG IVPB ONE (06:00)
[2018-04-29 06:53] LABS: Glucose,Whole Blood 56 mg/dL (75-99)
[2018-04-29] MEDS: ACETAMINOPHEN TAB 325 MG TAB PO PRN ×2 (06:53→21:16)
[2018-04-29] MEDS: IPRATROPIUM-ALBUTEROL 3 ML NEB INHALATION SCH ×4 (07:08→19:49)
[2018-04-29 07:25] LABS: Glucose,Whole Blood 91 mg/dL (75-99)
[2018-04-29] MEDS: LISINOPRIL 5 MG TAB PO SCH (08:17)
[2018-04-29] MEDS: DULoxetine HCL 30 MG CAPSULE.DR PO SCH ×2 (08:17→21:28)
[2018-04-29] MEDS: GABAPENTIN 400 MG CAP PO SCH ×4 (08:17→21:29)
[2018-04-29] MEDS: PANTOPRAZOLE 40 MG TABLET PO SCH (08:17)
[2018-04-29] MEDS: HYDROCORTISONE 20 MG TAB PO SCH (08:17)
[2018-04-29] MEDS: METOPROLOL TARTRATE 25 MG TAB PO SCH ×2 (08:17→21:28)
[2018-04-29] MEDS: APIXABAN 5 MG TAB PO SCH ×2 (08:17→21:27)
[2018-04-29] MEDS ORDERED: INSULIN DETEMIR 100 UNIT/ML 10 ML VIAL SQ SCH (09:00)
[2018-04-29] MEDS ORDERED: metFORMIN 500 MG TAB PO SCH (09:00)
[2018-04-29] MEDS: SODIUM CHLORIDE 0.9% 1,000 ML IV SCH ×2 (09:25→21:27)
[2018-04-29 11:05] LABS: Reticulocyte % 3.2 % (0.5-2.0)
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
[2018-04-29 11:51] LABS: Glucose,Whole Blood 76 mg/dL (75-99)
[2018-04-29] MEDS ORDERED: PIPERACILLIN-TAZOBACTAM 3.375 GM in DEXTROSE/WATER 1 50ML.BAG IVPB SCH (12:00)
[2018-04-29] MEDS: INSULIN ASPART 100 UNIT/ML 1 ML 10 ML VIAL SQ SCH ×3 (12:31→21:28)
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
[2018-04-29 16:43] LABS: Iron Saturation 4.69 (15.00-50.00)
[2018-04-29 16:44] LABS: Glucose,Whole Blood 118 mg/dL (75-99)
[2018-04-29 20:32] LABS: Glucose,Whole Blood 113 mg/dL (75-99)
[2018-04-29] MEDS ORDERED: VANCOMYCIN 1,500 MG in SODIUM CHLORIDE 0.9% 250 ML IVPB SCH (21:00)
[2018-04-29] MEDS: ATORVASTATIN 80 MG TAB PO SCH (21:27)
[2018-04-29] MEDS: amLODIPine 5 MG TAB PO SCH (21:27)
[2018-04-29] MEDS: MONTELUKAST 10 MG TAB PO SCH (21:28)
[2018-04-29] MEDS: LEVOTHYROXINE 50 MCG TAB PO SCH (21:28)
[2018-04-29] MEDS: HYDROcodone/APAP 10-325MG 1 EACH TAB PO PRN (21:35)
[2018-04-29 22:17] LABS: Hemoglobin A1C 6.8 % (4.0-6.0)
--- NOTE | 2018-04-29 23:21 | P.CON ---
Consult Note - . Consult date: 04/29/18 Assessment/Plan:: 57-year-old male who is well-known to the infectious disease service because of his multiple bouts of sepsis. Earlier this year the patient was hospitalized for multifocal pneumonia and MRSA was isolated from his sputum. After hospitalization he had improvement in completed his course of oral trimethoprim sulfamethoxazole with good resolution. He has had difficulties in the past with diabetes mellitus type 2 with poor control, severe coronary artery disease with several myocardial infarctions and chronic polyneuropathy. He does have a known history of gout and psoriasis that has been very difficult to control over time but have been better as of late. He did have several admissions where he was having difficulties with lactic acidosis that was thought to be medication induced and also hospitalizations for MRSA pneumonia. Patient was recently hospitalized April 08 through April 16 and was discharged with vancomycin for 10 days. Patient states he is still on antibiotics by IV and his had follow-up with Dr. Hardin in the office. Last evening he develped fever. In general he states he feels terrible. He complains of muscle aches and joint aches all over his body. He has a cough that is productive. He has a little shortness of breath. He denies any abdominal pain, nausea, vomiting or diarrhea. He does complain of loss of appetite. He denies any difficulty or pain with urination. Patient came into [facility] emergency center for evaluation. His white count was 11.4, temperature max 101.8, blood was clear with 2+ bilirubin. Blood cultures status received, sputum cultures on collected and urine cultures received. Chest x-ray showed interstitial pulmonary infiltrate right greater than left with no heart failure. Right worse then last exam. There is a consult in place for Dr. Chang. Patient has received Rocephin, Levaquin, Zosyn and vancomycin. Please see the consult note as dictated by nurse practitioner Mrs. Mari Guerrero. As noted Mr. Ribera is well-known to the service and was recently hospitalized and discharged on a course of intravenous vancomycin and follow-up was actually doing quite well except for weakness and difficulty transporting to the office. He is receiving his outpatient IV antibiotic therapy with improvement. Until he had the sudden onset of fever and altered mental status and is now brought back in the hospital. His chest x-ray is stable to slightly worsened with concerns to possible worsening pneumonia. In with this since he is on vancomycin therapy would be concerns to a gram-negative pneumonia. Antibiotic therapy has been expanded to include piperacillin tazobactam and Levaquin in addition to the vancomycin pending further culture data. Cultures are in process and antipyretics given his needed for his fever. The patient did again have lactic acidosis his medication list is again reviewed and he is back on metformin. There was significant concerns when he was having recurrent bouts of lactic acidosis and concerns of sepsis last year he was having a metabolic abnormality related to his medications, with discontinuation of allopurinol and metformin is bouts of acidosis did stop. We did discuss this with the primary service and metformin is now discontinued and is my opinion to not rechallenge him with his medication at any time in the future. Antipruritics are being utilized because of his fever blood cultures are in process sputum culture if possible will be obtained. Urinalysis appears to be negative. No evidence of any new skin lesions or infections at this time. Pulmonary critical care is following and will proceed with further interventions as needed including bronchoscopy if he fails to improve. With hydration his lactic acidosis has partially improved and his creatinine is stable from his last A1.55. I agree with evaluation, assessment and plan as dictated by nurse practitioner Mrs. Mari Guerrero.
[2018-04-30] MEDS: ACETAMINOPHEN TAB 325 MG TAB PO PRN (03:09)
[2018-04-30 07:02] LABS: Glucose,Whole Blood 139 mg/dL (75-99)
[2018-04-30] MEDS: HYDROCORTISONE 20 MG TAB PO SCH (07:51)
[2018-04-30] MEDS: GABAPENTIN 400 MG CAP PO SCH ×4 (07:51→21:36)
[2018-04-30] MEDS: PANTOPRAZOLE 40 MG TABLET PO SCH (07:52)
[2018-04-30] MEDS: DULoxetine HCL 30 MG CAPSULE.DR PO SCH ×2 (07:52→21:36)
[2018-04-30] MEDS: LISINOPRIL 5 MG TAB PO SCH (07:53)
[2018-04-30] MEDS: METOPROLOL TARTRATE 25 MG TAB PO SCH ×2 (07:53→21:36)
[2018-04-30] MEDS: INSULIN ASPART 100 UNIT/ML 1 ML 10 ML VIAL SQ SCH ×4 (07:53→21:38)
[2018-04-30] MEDS: APIXABAN 5 MG TAB PO SCH ×2 (07:56→22:07)
[2018-04-30 08:00] LABS: Albumin 2.4 g/dL (3.5-5.0); Calcium 7.7 mg/dL (8.4-10.2); Total Bilirubin 0.7 mg/dL (0.2-1.3); Total Protein 5.6 g/dL (6.3-8.2)
[2018-04-30 08:02] LABS: Anisocytosis Slight; Basophils % (A) 0 %; Eosinophils # (A) 0.3 k/uL (0-0.7); Eosinophils % (A) 5 %; HCT 25.2 % (39.0-53.0); Hypochromasia Marked; Lymphocytes # (A) 0.5 k/uL (1.0-4.8); Lymphocytes % (A) 8 %; MCH 20.2 pg (25.0-35.0); MCV 72.2 fL (80.0-100.0); Mean Platelet Volume 6.8; Microcytosis Marked; Monocytes # (A) 0.4 k/uL (0-1.0); Monocytes % (A) 6 %; Neutrophils # (A) 5.1 k/uL (1.3-7.7); Neutrophils % (A) 79 %; Platelet Count 267 k/uL (150-450); Poikilocytosis Slight; RBC 3.49 m/uL (4.30-5.90); RDW 19.2 % (11.5-15.5); WBC 6.5 k/uL (3.8-10.6)
[2018-04-30] MEDS: IPRATROPIUM-ALBUTEROL 3 ML NEB INHALATION SCH ×4 (08:26→19:41)
[2018-04-30] MEDS: SODIUM CHLORIDE 0.9% 1,000 ML IV SCH ×2 (08:35→15:42)
[2018-04-30] MEDS ORDERED: LEVOFLOXACIN 750MG-D5W PMX 750 MG in DEXTROSE/WATER 1 150ML.BAG IVPB SCH (09:00)
[2018-04-30 10:15] LABS: Amylase 79 U/L (30-110); Lipase 67 U/L (23-300)
--- NOTE | 2018-04-30 10:17 | P.PN ---
Subjective Progress Note Date: 04/30/18 Principal diagnosis: Sepsis related to right lower lobe pneumonia, possibly healthcare acquired, Benja is a 57-year-old white male patient of Dr. Monterroso, who presented to the emergency department on 04/29/2018 with complaints of headaches, fever, chills, cough, with phlegm production, shortness of breath, fatigue. Patient was recently hospitalized for bilateral pneumonia, and sepsis, was discharged home on 04/16/2018. During last hospitalization patient he was treated with a combination of Zithromax, Levaquin. Cultures were negative during that admission. Patient had previous episode of pneumonia and MRSA was isolated from his sputum in September 2017. He was discharged home with a PICC line in place, and vancomycin infusions for history of MRSA pneumonia. Past medical history includes congestive heart failure, coronary artery disease, diabetes mellitus, hypothyroidism, hypertension, osteoarthritis, obstructive sleep apnea , on CPAP therapy, lumbar stenosis, peripheral neuropathy, GERD, MRSA infections of the right hand, skin cancer with removal in 2015, multiple infections of right elbow and the right heel in the past, these episodes of pneumonia and parapneumonic effusions with thoracotomy and chest tube placements in 2014. Chest x-ray was completed, and showed interstitial pulmonary infiltrate on the right side more so than the left, possibly related to pneumonia. Lab showed WBC of 11.4, hemoglobin 8.0, CO2 is 32, BUN is 27, creatinine is 1.1. Asthma lactic acid was elevated, 2.6, subsequently up to 3.9 , he was fluid resuscitated with 1 L of 0.9 normal saline, and IV fluid infusing at a rate of 100 ML per hour. Lactic acid came down to 2.0. He was febrile on presentation, with the temperature 101.6F. He received a dose of Rocephin in the emergency department, he was then switched to Zosyn and Levaquin , and vancomycin. Urine, and blood cultures were collected and sent, and are pending at this time, sputum culture was ordered. Consultation in regards to right lower lung pneumonia, possibly healthcare acquired. On 04/30/2018 patient seen in follow-up on medical surgical floor. He is awake alert, in no acute distress, he states he is feeling better today, breathing easier, he still has the coughing worse at night. Sputum specimen was collected and sent, and is pending at this time. Did have fever last night, of 100F. Afebrile this morning. So far blood and urine cultures are negative, final cultures pending. Today's lab work has been reviewed, WBC 6.5, hemoglobin 7.0, CO2 is 31, BUN is 29, creatinine 1.35, patient's renal profile worsened. LFTs are trending up, AST up to 443, and ALT is 270. Hemodynamically stable, he is on a combination of Zosyn, Levaquin and vancomycin. Denies any abdominal pain, no nausea, no vomiting, no diarrhea. Lung sounds reveal better air entry bilaterally, with some bibasilar crackles. No significant wheezing noted. Continue with current medical treatment. Objective - Vital Signs Vital signs: Vital Signs Temp 98.4 F 04/30/18 05:00 Pulse 76 04/30/18 08:46 Resp 18 04/30/18 08:00 BP 118/53 04/30/18 08:00 Pulse Ox 96 04/30/18 08:00 Intake & Output 04/29/18 04/30/18 04/30/18 18:59 06:59 18:59 Intake Total 3140 Balance 3140 Weight 98 kg Intake: Intake, IV Titration 2100 Amount Sodium Chloride 0.9% 1, 1600 000 ml @ 100 mls/hr IV . Q10H [facility] Rx#:[id number] Vancomycin 1,500 mg In 500 Sodium Chloride 0.9% 250 ml @ 125 mls/hr IVPB Q16H [facility] Rx#:[id number] Oral 1040 Other: Voiding Method Urinal Urinal Urinal # Voids 1 1 - Exam GENERAL EXAM: Alert, pleasant, 57-year-old white male, comfortable in no apparent distress. HEAD: Normocephalic/atraumatic. EYES: Normal reaction of pupils, equal size. Conjunctiva pink, sclera white. NOSE: Clear with pink turbinates. THROAT: No erythema or exudates. NECK: No masses, no JVD, no thyroid enlargement, no adenopathy. CHEST: No chest wall deformity. Symmetrical expansion. LUNGS: Better air entry noted bilaterally on today's exam, with some bibasilar crackles, no wheezes, no rhonchi. CVS: Regular rate and rhythm, normal S1 and S2, no gallops, no murmurs, no rubs ABDOMEN: Soft, nontender. No hepatosplenomegaly, normal bowel sounds, no guarding or rigidity. EXTREMITIES: No clubbing, 1+ edema, no cyanosis, 2+ pulses and upper and lower extremities. MUSCULOSKELETAL: Muscle strength and tone normal. SPINE: No scoliosis or deformity SKIN: No rashes CENTRAL NERVOUS SYSTEM: Alert and oriented -3. No focal deficits, tone is normal in all 4 extremities. PSYCHIATRIC: Alert and oriented -3. Appropriate affect. Intact judgment and insight. - Labs CBC & Chem 7: 04/30/18 07:14 04/30/18 07:14 Labs: Abnormal Lab Results - Last 24 Hours (Table) 04/29/18 04/29/18 04/29/18 Range/Units 00:01 08:07 08:07 RBC (4.30-5.90) m/uL Hgb (13.0-17.5) gm/dL Hct (39.0-53.0) % MCV (80.0-100.0) fL MCH (25.0-35.0) pg MCHC (31.0-37.0) g/dL RDW (11.5-15.5) % Lymphocytes # (1.0-4.8) k/uL ESR 55 H (0-15) mm/hr Retic Count 3.2 H (0.5-2.0) % Carbon Dioxide (22-30) mmol/L BUN (9-20) mg/dL Creatinine (0.66-1.25) mg/dL Glucose (74-99) mg/dL POC Glucose (mg/dL) (75-99) mg/dL Hemoglobin A1c 6.8 H (4.0-6.0) % Calcium (8.4-10.2) mg/dL Iron 13 L (65-175) ug/dL Iron Saturation 4.69 L (15.00-50.00) AST (17-59) U/L ALT (21-72) U/L Total Protein (6.3-8.2) g/dL Albumin (3.5-5.0) g/dL 04/29/18 04/29/18 04/30/18 Range/Units 16:42 20:29 07:01 RBC (4.30-5.90) m/uL Hgb (13.0-17.5) gm/dL Hct (39.0-53.0) % MCV (80.0-100.0) fL MCH (25.0-35.0) pg MCHC (31.0-37.0) g/dL RDW (11.5-15.5) % Lymphocytes # (1.0-4.8) k/uL ESR (0-15) mm/hr Retic Count (0.5-2.0) % Carbon Dioxide (22-30) mmol/L BUN (9-20) mg/dL Creatinine (0.66-1.25) mg/dL Glucose (74-99) mg/dL POC Glucose (mg/dL) 118 H 113 H 139 H (75-99) mg/dL Hemoglobin A1c (4.0-6.0) % Calcium (8.4-10.2) mg/dL Iron (65-175) ug/dL Iron Saturation (15.00-50.00) AST (17-59) U/L ALT (21-72) U/L Total Protein (6.3-8.2) g/dL Albumin (3.5-5.0) g/dL 04/30/18 04/30/18 Range/Units 07:14 07:14 RBC 3.49 L (4.30-5.90) m/uL Hgb 7.0 L* (13.0-17.5) gm/dL Hct 25.2 L (39.0-53.0) % MCV 72.2 L (80.0-100.0) fL MCH 20.2 L (25.0-35.0) pg MCHC 28.0 L (31.0-37.0) g/dL RDW 19.2 H (11.5-15.5) % Lymphocytes # 0.5 L (1.0-4.8) k/uL ESR (0-15) mm/hr Retic Count (0.5-2.0) % Carbon Dioxide 31 H (22-30) mmol/L BUN 29 H (9-20) mg/dL Creatinine 1.35 H (0.66-1.25) mg/dL Glucose 111 H (74-99) mg/dL POC Glucose (mg/dL) (75-99) mg/dL Hemoglobin A1c (4.0-6.0) % Calcium 7.7 L (8.4-10.2) mg/dL Iron (65-175) ug/dL Iron Saturation (15.00-50.00) AST 443 H (17-59) U/L ALT 270 H (21-72) U/L Total Protein 5.6 L (6.3-8.2) g/dL Albumin 2.4 L (3.5-5.0) g/dL Microbiology - Last 24 Hours (Table) 04/29/18 00:01 Blood Culture - Preliminary Blood No Growth after 24 hours 04/29/18 00:01 Urine Culture - Preliminary Urine,Voided Assessment and Plan Plan: Assessment: #1. Sepsis related to right lower lobe pneumonia, possibly healthcare acquired #2. Lactic acidosis, fever, cough, with phlegm production, related to the above #3. Recent hospitalization for bilateral pneumonia and sepsis, discharged on on vancomycin infusions, for history of MRSA pneumonia from September 2017 #4. History of sleep apnea syndrome, currently on CPAP #5. History of hypertension, hyperlipidemia, hypothyroidism, diabetes mellitus type 2, peripheral neuropathy, GERD #6. Previous episodes of pneumonia with parapneumonic effusions requiring chest tube drainage #7. Coronary artery disease, status post bypass grafting #8. Previous MRSA infections of right hand #9. Increased LFTs, possibly related to hypoperfusion Plan Continue antibiotics per ID service recommendations, continue nebulized bronchodilators, sputum specimen was collected and sent, and is pending at this time, patient did have a fever last night, afebrile today. Clinically he states he is breathing better, he is complaining of coughing spells especially at night, and we will give the patient some cough syrup that he can rest at night. Will repeat lab work in the morning, her peak chest x-ray. Continue to follow. I performed a history & physical examination of the patient and discussed their management with my nurse practitioner, Janis Slater. I reviewed the nurse practitioner's note and agree with the documented findings and plan of care. Lung sounds are positive for diffuse rhonchi bilaterally. The findings and the impression was discussed with the patient. I attest to the documentation by the nurse practitioner. Time with Patient: Less than 30
--- NOTE | 2018-04-30 11:21 | P.PN ---
Subjective Progress Note Date: 04/30/18 57-year-old male who presented to the emergency room with a chief complaint of fever and generalized malaise. The patient was recently admitted from 04/08/2018 until 04/16/2018 secondary to sepsis and pneumonia. The patient had a PICC line placed at that time and he was discharged home on a 10 day course of vancomycin. The patient states he was doing well at home and was feeling relatively well until yesterday evening. Patient's spouse is at the bedside who states he had a low-grade temperature of 99.0 yesterday evening. She states that she gave him ibuprofen but his temperature continued to increase. She brought the patient to the emergency room for further evaluation. He does report coughing. The patient currently denies chest pain or pressure. Denies shortness of breath. Denies nausea or vomiting. He states he does not have much of an appetite today but prior to coming to the hospital his appetite has been good and he has been eating well at home. Denies dizziness or lightheadedness. 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 He has also had a myocardial infarction 2006 and 2007. His past surgical history includes bowel resection, cholecystectomy, coronary artery bypass graft, heart catheterization with multiple stents, hernia repair, and joint replacements. He has had multiple hospitalizations for pneumonia and sepsis. Chest x-ray: Interstitial pulmonary infiltrates on the right side more than the left. No heart failure. There is pleural reaction at the right lung base. Right lung appears worse than last exam. This is consistent with inflammatory disease. Laboratory data on admission reveals white count of 11.4. Hemoglobin 8.0. Platelet count 389. INR 1.4. Sodium 139. Potassium 4.0. Chloride 97. BUN 27. Creatinine 1.10. Glucose 169. AST 65. ALT 98. Albumin 3.1. Initial lactic acid was 2.6 which then increased to 3.9. The patient has been receiving IV fluids and his most recent lactic acid is 2.0. Urinalysis reveals: 1+ proteinuria, 2+ bilirubin, rare mucus. The patient was started on IV antibiotics in the form of Vanco, Levaquin, and Zosyn. He was admitted to the hospital under the care of Dr. Romero. 04/30/2018 Patient seen and examined at the bedside. Patient states he is feeling better today. He states he did sleep well last night but was having difficulty with the hospital cpap machine because the positive airway pressure is set to [id number] and his home machine is set to 7. He was febrile last night but he is afebrile this morning. Blood cultures are negative at the 24 hour solange. Sputum culture is pending. Patient remains on Vanco and Levaquin. Patient's hemoglobin is 7.0 today. Creatinine has increased to 1.35 from 1.10 yesterday. AST increased from 65-443. ALT increased from 98-270. Patient does have a history of a pancreatic mass and follows with Dr. Mcgrath. Patient reports a CT or MRI performed downtown earlier this year. Objective - Vital Signs Vital signs: Vital Signs Temp 98.4 F 04/30/18 05:00 Pulse 76 04/30/18 08:46 Resp 18 04/30/18 08:00 BP 118/53 04/30/18 08:00 Pulse Ox 96 04/30/18 08:00 Intake & Output 04/29/18 04/30/18 04/30/18 18:59 06:59 18:59 Intake Total 3140 Output Total 100 Balance 3140 -100 Weight 98 kg Intake: Intake, IV Titration 2100 Amount Sodium Chloride 0.9% 1, 1600 000 ml @ 100 mls/hr IV . Q10H [facility] Rx#:[id number] Vancomycin 1,500 mg In 500 Sodium Chloride 0.9% 250 ml @ 125 mls/hr IVPB Q16H [facility] Rx#:[id number] Oral 1040 Output: Urine 100 Other: Voiding Method Urinal Urinal Urinal # Voids 1 1 1 - Constitutional General appearance: Present: cooperative, no acute distress - EENT Eyes: Present: EOMI, PERRLA, normal appearance - Respiratory Respiratory: bilateral: diminished, negative: rales, wheezing - Cardiovascular Rhythm: regular Heart sounds: normal: S1, S2 Abnormal Heart Sounds: Absent: systolic murmur, diastolic murmur - Gastrointestinal General gastrointestinal: Present: normal bowel sounds, soft. Absent: tenderness - Integumentary Integumentary: Present: normal. Absent: cyanotic, flushed, jaundiced - Neurologic Neurologic: Present: CNII-XII intact - Musculoskeletal Musculoskeletal: Present: generalized weakness, strength equal bilaterally - Psychiatric Psychiatric: Present: A&O x's 3, appropriate affect, intact judgment & insight - Labs CBC & Chem 7: 04/30/18 07:14 04/30/18 07:14 Labs: Abnormal Lab Results - Last 24 Hours (Table) 04/29/18 04/29/18 04/29/18 Range/Units 00:01 08:07 08:07 RBC (4.30-5.90) m/uL Hgb (13.0-17.5) gm/dL Hct (39.0-53.0) % MCV (80.0-100.0) fL MCH (25.0-35.0) pg MCHC (31.0-37.0) g/dL RDW (11.5-15.5) % Lymphocytes # (1.0-4.8) k/uL ESR 55 H (0-15) mm/hr Retic Count 3.2 H (0.5-2.0) % Carbon Dioxide (22-30) mmol/L BUN (9-20) mg/dL Creatinine (0.66-1.25) mg/dL Glucose (74-99) mg/dL POC Glucose (mg/dL) (75-99) mg/dL Hemoglobin A1c 6.8 H (4.0-6.0) % Calcium (8.4-10.2) mg/dL Iron 13 L (65-175) ug/dL Iron Saturation 4.69 L (15.00-50.00) AST (17-59) U/L ALT (21-72) U/L Total Protein (6.3-8.2) g/dL Albumin (3.5-5.0) g/dL 04/29/18 04/29/18 04/30/18 Range/Units 16:42 20:29 07:01 RBC (4.30-5.90) m/uL Hgb (13.0-17.5) gm/dL Hct (39.0-53.0) % MCV (80.0-100.0) fL MCH (25.0-35.0) pg MCHC (31.0-37.0) g/dL RDW (11.5-15.5) % Lymphocytes # (1.0-4.8) k/uL ESR (0-15) mm/hr Retic Count (0.5-2.0) % Carbon Dioxide (22-30) mmol/L BUN (9-20) mg/dL Creatinine (0.66-1.25) mg/dL Glucose (74-99) mg/dL POC Glucose (mg/dL) 118 H 113 H 139 H (75-99) mg/dL Hemoglobin A1c (4.0-6.0) % Calcium (8.4-10.2) mg/dL Iron (65-175) ug/dL Iron Saturation (15.00-50.00) AST (17-59) U/L ALT (21-72) U/L Total Protein (6.3-8.2) g/dL Albumin (3.5-5.0) g/dL 04/30/18 04/30/18 Range/Units 07:14 07:14 RBC 3.49 L (4.30-5.90) m/uL Hgb 7.0 L* (13.0-17.5) gm/dL Hct 25.2 L (39.0-53.0) % MCV 72.2 L (80.0-100.0) fL MCH 20.2 L (25.0-35.0) pg MCHC 28.0 L (31.0-37.0) g/dL RDW 19.2 H (11.5-15.5) % Lymphocytes # 0.5 L (1.0-4.8) k/uL ESR (0-15) mm/hr Retic Count (0.5-2.0) % Carbon Dioxide 31 H (22-30) mmol/L BUN 29 H (9-20) mg/dL Creatinine 1.35 H (0.66-1.25) mg/dL Glucose 111 H (74-99) mg/dL POC Glucose (mg/dL) (75-99) mg/dL Hemoglobin A1c (4.0-6.0) % Calcium 7.7 L (8.4-10.2) mg/dL Iron (65-175) ug/dL Iron Saturation (15.00-50.00) AST 443 H (17-59) U/L ALT 270 H (21-72) U/L Total Protein 5.6 L (6.3-8.2) g/dL Albumin 2.4 L (3.5-5.0) g/dL Microbiology - Last 24 Hours (Table) 04/29/18 00:01 Blood Culture - Preliminary Blood No Growth after 24 hours 04/29/18 00:01 Urine Culture - Preliminary Urine,Voided Assessment and Plan Plan: ASSESSMENT: Right lower lobe pneumonia, present on admission, sputum culture pending Sepsis, present on admission, may be secondary to pneumonia or other infectious etiology Recent hospitalization for sepsis and pneumonia, discharged 04/16/2018 on 10 day regimen of Vancomycin Paroxysmal atrial fibrillation, maintained on long-term anticoagulation with Eliquis Coronary artery disease with previous coronary artery bypass grafting and previous stent placement Diabetes mellitus type II Multiple previous hospital admissions for pneumonia and sepsis Obstructive sleep apnea, questionable compliance with CPAP Chronic systolic congestive heart failure, EF 35-40% Microcytic hypochromic anemia, etiology unclear, patient was to have colonoscopy 03/2018 but unable to have procedure due to fevers and weakness. Patient does have hx of iron deficiency anemia but unable to tolerate iron supplements Chronic adrenal insufficiency, maintained on Cortef Previous cellulitis with MRSA History of MRSA pneumonia Hyperlipidemia Osteoarthritis Hypothyroidism Obesity: BMI 34.1 Transaminitis, etiology unclear, may be medication induced, secondary to hypoperfusion, or related to pancreatic mass PLAN: Pulmonary on consult. Appreciate recommendations and input Change CPAP settings to [id number] as that is patients setting at home Repeat CXR in AM Dr. Hardin on consult. Appreciate recommendations and input Antibiotics per ID: Vanco and Levaquin Await results of sputum culture Novolog sliding scale. Will resume patients Levemir at lower dose tonight. Hepatitis panel. Check CMV. Amylase. Lipase. Will obtain records from Dr. Ramila loaiza to determine further course of action regarding elevated LFTs Transfuse 1 unit RBC. Recheck hgb in AM Case discussed with Dr. Hardin. Questionable whether Metformin is causing patients lactic acidosis. Will DC Metformin at this time as recommended by ID AMBIKA tanner to bilateral LE. Elevate legs on pillows Home meds as appropriate Monitor labs GI prophylaxis: Protonix 20 mg PO Daily DVT prophylaxis: Eliquis 5mg PO BID Monitor vital signs and address as appropriate Discharge planning: Patient would like to return home upon discharge with home care Further recommendations pending patient's course Nurse practitioner note has been reviewed by physician. Signing provider agrees with the documented findings, assessment, and plan of care.
[2018-04-30 11:54] LABS: Glucose,Whole Blood 176 mg/dL (75-99)
[2018-04-30] MEDS: HYDROcodone/APAP 10-325MG 1 EACH TAB PO PRN ×3 (14:19→23:27)
[2018-04-30 16:48] LABS: Glucose,Whole Blood 233 mg/dL (75-99)
[2018-04-30 17:22] LABS: Hepatitis A Antibody IgM Non-Reactive (Non-Reactive); Hepatitis B Core IgM Non-Reactive (Non-Reactive)
[2018-04-30 20:07] LABS: Glucose,Whole Blood 188 mg/dL (75-99)
[2018-04-30] MEDS ORDERED: INSULIN DETEMIR 100 UNIT/ML 10 ML VIAL SQ SCH ×2 (21:00)
[2018-04-30] MEDS: ATORVASTATIN 80 MG TAB PO SCH (21:36)
[2018-04-30] MEDS: LEVOTHYROXINE 50 MCG TAB PO SCH (21:36)
[2018-04-30] MEDS: MONTELUKAST 10 MG TAB PO SCH (21:36)
[2018-04-30] MEDS: amLODIPine 5 MG TAB PO SCH (21:37)
[2018-04-30] MEDS: VANCOMYCIN 1,500 MG in SODIUM CHLORIDE 0.9% 250 ML IVPB SCH (21:38)
[2018-05-01] MEDS: ACETAMINOPHEN TAB 325 MG TAB PO PRN (02:12)
[2018-05-01] MEDS: SODIUM CHLORIDE 0.9% 1,000 ML IV SCH ×4 (03:36→21:24)
[2018-05-01] MEDS: HYDROcodone/APAP 10-325MG 1 EACH TAB PO PRN ×5 (03:36→21:24)
[2018-05-01 06:51] LABS: Glucose,Whole Blood 135 mg/dL (75-99)
[2018-05-01 07:27] LABS: Albumin 2.5 g/dL (3.5-5.0); Calcium 7.8 mg/dL (8.4-10.2); Potassium 4.2 mmol/L (3.5-5.1); Total Bilirubin 0.9 mg/dL (0.2-1.3); Total Protein 5.8 g/dL (6.3-8.2)
[2018-05-01] MEDS: INSULIN ASPART 100 UNIT/ML 1 ML 10 ML VIAL SQ SCH ×4 (07:31→21:35)
[2018-05-01] MEDS: PANTOPRAZOLE 40 MG TABLET PO SCH (07:32)
[2018-05-01] MEDS: APIXABAN 5 MG TAB PO SCH ×2 (07:32→21:25)
[2018-05-01] MEDS: GABAPENTIN 400 MG CAP PO SCH ×4 (07:33→21:25)
[2018-05-01] MEDS: DULoxetine HCL 30 MG CAPSULE.DR PO SCH ×2 (07:33→21:24)
[2018-05-01] MEDS: HYDROCORTISONE 20 MG TAB PO SCH (07:34)
[2018-05-01] MEDS: LEVOFLOXACIN 750 MG TAB PO SCH (07:34)
[2018-05-01] MEDS: LISINOPRIL 5 MG TAB PO SCH (07:35)
[2018-05-01] MEDS: METOPROLOL TARTRATE 25 MG TAB PO SCH ×2 (07:35→21:25)
[2018-05-01] MEDS: CLOTRIMAZOLE/BETAMETH 1-0.05% CREAM 45 GM TUBE TOPICAL SCH ×2 (07:43→21:26)
[2018-05-01 07:47] LABS: Anisocytosis Slight; Basophils % (A) 0 %; Eosinophils # (A) 0.1 k/uL (0-0.7); Eosinophils % (A) 3 %; HCT 27.4 % (39.0-53.0); HGB 7.8 gm/dL (13.0-17.5); Hypochromasia Marked; Lymphocytes # (A) 0.5 k/uL (1.0-4.8); Lymphocytes % (A) 11 %; MCHC 28.4 g/dL (31.0-37.0); MCV 74.2 fL (80.0-100.0); Mean Platelet Volume 6.8; Microcytosis Moderate; Monocytes # (A) 0.4 k/uL (0-1.0); Monocytes % (A) 10 %; Neutrophils # (A) 3.3 k/uL (1.3-7.7); Neutrophils % (A) 73 %; Platelet Count 246 k/uL (150-450); Poikilocytosis Moderate; RDW 19.2 % (11.5-15.5); WBC 4.5 k/uL (3.8-10.6)
[2018-05-01] MEDS: INSULIN DETEMIR 100 UNIT/ML 10 ML VIAL SQ SCH ×2 (07:59→21:35)
[2018-05-01] MEDS: IPRATROPIUM-ALBUTEROL 3 ML NEB INHALATION SCH ×4 (08:47→20:55)
[2018-05-01 10:58] LABS: Glucose,Whole Blood 145 mg/dL (75-99)
--- NOTE | 2018-05-01 11:52 | P.PN ---
Subjective Progress Note Date: 05/01/18 Principal diagnosis: Shortness of breath Progress note dated 05/01/2018 This is a 57-year-old male with a history of sepsis, related to right lower lobe pneumonia. The patient presented with fever cough phlegm production and lactic acidemia. The patient had a recent hospitalization for bilateral pneumonia and sepsis and he was discharged on April 16 of this year. Subsequent to that, the patient received IV vancomycin as an outpatient for MRSA. The patient also has a history of sleep apnea syndrome, currently on CPAP hypertension, hyperlipidemia, hypothyroidism, diabetes, and peripheral neuropathy. The patient also has a history of GERD parapneumonic effusion CAD with bypass grafting Caio MRSA infection of the right hand and chronic elevations of his liver function. Currently, the patient is doing much better. Much more awake and alert. Feeling much better. Apparently he states he is getting a chest x-ray. Labs today, show a white count of 4.5, a hemoglobin of 7.8, hematocrit of 27.4 and a normal platelet count. In addition, electrolytes are normal with a BUN of 25 and a creatinine of 1.25. Blood urine and sputum sampling essentially negative. Objective - Vital Signs Vital signs: Vital Signs Temp 98.1 F 05/01/18 06:16 Pulse 80 05/01/18 09:10 Resp 18 05/01/18 06:16 BP 145/65 05/01/18 06:16 Pulse Ox 94 L 05/01/18 07:00 Intake & Output 04/30/18 05/01/18 05/01/18 18:59 06:59 18:59 Intake Total 310 600 Output Total 500 700 Balance -190 -100 Weight 95.5 kg Intake: Intake, IV Titration 250 Amount Vancomycin 1,500 mg In 250 Sodium Chloride 0.9% 250 ml @ 125 mls/hr IVPB Q24H [facility] Rx#:[id number] Oral 350 Blood Product 310 Rc Pheresis 2 As3 Unit 310 [id number] Output: Urine 500 700 Other: Voiding Method Urinal Urinal Urinal # Voids 1 - Exam No acute distress, oriented 3. HEENT examination is grossly unremarkable. Mucous membranes are moist. No oral lesions. Neck supple. Full range of motion. No adenopathy thyromegaly or neck vein distention. Cardiovascular examination reveals regular rhythm rate. S1-S2 normal. No S3 or S4. No discernible murmur noted. Lungs reveal mostly clear breath sounds. A few scattered rhonchi. No wheezes or crackles. Breath sounds are much improved. Abdomen soft bowel sounds are heard. No masses or tenderness. Extremities are intact. Minimal lower extremity edema is noted. No cyanosis or clubbing. Skin is without rash or lesion. Neurologic examination is brief but nonfocal. - Labs CBC & Chem 7: 05/01/18 06:28 05/01/18 06:28 Labs: Abnormal Lab Results - Last 24 Hours (Table) 04/30/18 04/30/18 04/30/18 Range/Units 09:23 11:52 16:47 RBC (4.30-5.90) m/uL Hgb (13.0-17.5) gm/dL Hct (39.0-53.0) % MCV (80.0-100.0) fL MCH (25.0-35.0) pg MCHC (31.0-37.0) g/dL RDW (11.5-15.5) % Lymphocytes # (1.0-4.8) k/uL BUN (9-20) mg/dL Glucose (74-99) mg/dL POC Glucose (mg/dL) 176 H 233 H (75-99) mg/dL Calcium (8.4-10.2) mg/dL AST (17-59) U/L ALT (21-72) U/L Total Protein (6.3-8.2) g/dL Albumin (3.5-5.0) g/dL Crossmatch See Detail 04/30/18 05/01/18 05/01/18 Range/Units 20:05 06:28 06:28 RBC 3.70 L (4.30-5.90) m/uL Hgb 7.8 L (13.0-17.5) gm/dL Hct 27.4 L (39.0-53.0) % MCV 74.2 L (80.0-100.0) fL MCH 21.0 L (25.0-35.0) pg MCHC 28.4 L (31.0-37.0) g/dL RDW 19.2 H (11.5-15.5) % Lymphocytes # 0.5 L (1.0-4.8) k/uL BUN 25 H (9-20) mg/dL Glucose 118 H (74-99) mg/dL POC Glucose (mg/dL) 188 H (75-99) mg/dL Calcium 7.8 L (8.4-10.2) mg/dL AST 440 H (17-59) U/L ALT 327 H (21-72) U/L Total Protein 5.8 L (6.3-8.2) g/dL Albumin 2.5 L (3.5-5.0) g/dL Crossmatch 05/01/18 05/01/18 Range/Units 06:50 10:56 RBC (4.30-5.90) m/uL Hgb (13.0-17.5) gm/dL Hct (39.0-53.0) % MCV (80.0-100.0) fL MCH (25.0-35.0) pg MCHC (31.0-37.0) g/dL RDW (11.5-15.5) % Lymphocytes # (1.0-4.8) k/uL BUN (9-20) mg/dL Glucose (74-99) mg/dL POC Glucose (mg/dL) 135 H 145 H (75-99) mg/dL Calcium (8.4-10.2) mg/dL AST (17-59) U/L ALT (21-72) U/L Total Protein (6.3-8.2) g/dL Albumin (3.5-5.0) g/dL Crossmatch Microbiology - Last 24 Hours (Table) 04/30/18 19:55 Gram Stain - Preliminary Sputum Sputum Culture - Preliminary 04/29/18 00:01 Blood Culture - Preliminary Blood No Growth after 48 hours 04/29/18 00:01 Urine Culture - Preliminary Urine,Voided Yeast species Assessment and Plan Assessment: Assessment Sepsis, likely related to right lower lobe pneumonia Recent hospitalization for bilateral pneumonia and sepsis, secondary to MRSA infection, treated with vancomycin IV Sleep apnea syndrome, currently on CPAP History of hypertension History of hyperlipidemia Hypothyroidism Diabetes mellitus type 2 Peripheral neuropathy GERD Previous episode of pneumonia with parapneumonic effusion, with chest tube drainage CAD, status post bypass grafting Previous MRSA infection of the right hand Plan: Plan dated 05/01/2018 We'll continue with antibiotics and ID service recommendations updrafts, etc. The patient should have a follow-up chest x-ray. I believe that's been ordered by the primary service. Clinically, the patient looks well. Much improved. He is much more awake and alert and not having any respiratory difficulty at all. He denies any chest tightness wheezing cough chest congestion shortness of breath or significant phlegm production. No fever or chills. No nausea vomiting or diarrhea. Time with Patient: Less than 30
--- NOTE | 2018-05-01 13:56 | P.PN ---
Subjective Progress Note Date: 05/01/18 57-year-old male who presented to the emergency room with a chief complaint of fever and generalized malaise. The patient was recently admitted from 04/08/2018 until 04/16/2018 secondary to sepsis and pneumonia. The patient had a PICC line placed at that time and he was discharged home on a 10 day course of vancomycin. The patient states he was doing well at home and was feeling relatively well until yesterday evening. Patient's spouse is at the bedside who states he had a low-grade temperature of 99.0 yesterday evening. She states that she gave him ibuprofen but his temperature continued to increase. She brought the patient to the emergency room for further evaluation. He does report coughing. The patient currently denies chest pain or pressure. Denies shortness of breath. Denies nausea or vomiting. He states he does not have much of an appetite today but prior to coming to the hospital his appetite has been good and he has been eating well at home. Denies dizziness or lightheadedness. 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 He has also had a myocardial infarction 2006 and 2007. His past surgical history includes bowel resection, cholecystectomy, coronary artery bypass graft, heart catheterization with multiple stents, hernia repair, and joint replacements. He has had multiple hospitalizations for pneumonia and sepsis. Chest x-ray: Interstitial pulmonary infiltrates on the right side more than the left. No heart failure. There is pleural reaction at the right lung base. Right lung appears worse than last exam. This is consistent with inflammatory disease. Laboratory data on admission reveals white count of 11.4. Hemoglobin 8.0. Platelet count 389. INR 1.4. Sodium 139. Potassium 4.0. Chloride 97. BUN 27. Creatinine 1.10. Glucose 169. AST 65. ALT 98. Albumin 3.1. Initial lactic acid was 2.6 which then increased to 3.9. The patient has been receiving IV fluids and his most recent lactic acid is 2.0. Urinalysis reveals: 1+ proteinuria, 2+ bilirubin, rare mucus. The patient was started on IV antibiotics in the form of Vanco, Levaquin, and Zosyn. He was admitted to the hospital under the care of Dr. Romero. 04/30/2018 Patient seen and examined at the bedside. Patient states he is feeling better today. He states he did sleep well last night but was having difficulty with the hospital cpap machine because the positive airway pressure is set to [id number] and his home machine is set to 7. He was febrile last night but he is afebrile this morning. Blood cultures are negative at the 24 hour solange. Sputum culture is pending. Patient remains on Vanco and Levaquin. Patient's hemoglobin is 7.0 today. Creatinine has increased to 1.35 from 1.10 yesterday. AST increased from 65-443. ALT increased from 98-270. Patient does have a history of a pancreatic mass and follows with Dr. Mcgrath. Patient reports a CT or MRI performed downtown earlier this year. 05/01/2018 Patient seen and examined at the bedside. Patient continues to improve clinically. He denies shortness of breath. He does report some coughing last night. He also had a very brief episode of chest pain that was slightly above the epigastric region. He reports it the pain was a dull aching feeling. He reports when he previously had heart issues the pain felt like a stabbing sensation and this episode did not feel that like. The patient states he thinks it may be related to his CPAP machine. He reports he was having issues with his home CPAP last night and states the machine was blowing air very forcefully and making it hard for him to breathe and making his nasal passages very dry and uncomfortable. Chest pain resolved on its own without treatment. No further episodes of chest pain. Hemoglobin is 7.8, s/p transfusion of 1 unit RBC. WBC is 4.5. Creatinine is 1.25. BUN 25. AST decreased from 443-440. ALT increased from 270-327. Records from Dr. Mcgrath were obtained. Patient was last seen in their office in August 2017. According to Dr. Mcgrath's dictation patient has a history of pancreatic tail neuroendocrine tumor. Surgical options were discussed with patient, although Dr. Mcgrath did mention patient was not a great surgical candidate. The patient and his decided against surgical intervention. The patient had a CT scan in 08/2017 of his abdomen and pelvis which revealed several small geographic areas of hypodensity in the subcapsular region of both liver lobes, with overlying mild capsular retraction. These areas are larger and new from prior exam. Dr. Mcgrath recommended 6 month follow up with octreoscan to make determination of liver issue. Patient does report he has an appointment scheduled soon for this imaging but is unsure of the exact date. Objective - Vital Signs Vital signs: Vital Signs Temp 98.1 F 05/01/18 06:16 Pulse 80 05/01/18 09:10 Resp 18 05/01/18 06:16 BP 145/65 05/01/18 06:16 Pulse Ox 93 L 05/01/18 06:16 Intake & Output 04/30/18 05/01/18 05/01/18 18:59 06:59 18:59 Intake Total 310 600 Output Total 500 700 Balance -190 -100 Weight 95.5 kg Intake: Intake, IV Titration 250 Amount Vancomycin 1,500 mg In 250 Sodium Chloride 0.9% 250 ml @ 125 mls/hr IVPB Q24H [facility] Rx#:[id number] Oral 350 Blood Product 310 Rc Pheresis 2 As3 Unit 310 [id number] Output: Urine 500 700 Other: Voiding Method Urinal Urinal # Voids 1 - Constitutional Constitutional Comment(s): 57-year-old male in no acute distress General appearance: Present: cooperative, no acute distress - EENT Eyes: Present: EOMI, PERRLA - Respiratory Respiratory: bilateral: CTA, negative: rales, rhonchi, wheezing - Cardiovascular Rhythm: regular Heart sounds: normal: S1, S2 Abnormal Heart Sounds: Absent: systolic murmur, diastolic murmur - Peripheral edema ankle Peripheral Edema: bilateral: 2+ leg Peripheral Edema: bilateral: 2+ - Gastrointestinal General gastrointestinal: Present: normal bowel sounds, soft. Absent: tenderness - Integumentary Integumentary Comment(s): fungal rash to upper chest Integumentary: Present: normal, normal turgor. Absent: cyanotic, flushed, jaundiced - Neurologic Neurologic: Present: CNII-XII intact - Musculoskeletal Musculoskeletal: Present: generalized weakness, strength equal bilaterally - Psychiatric Psychiatric: Present: A&O x's 3, appropriate affect, intact judgment & insight - Labs CBC & Chem 7: 05/01/18 06:28 05/01/18 06:28 Labs: Abnormal Lab Results - Last 24 Hours (Table) 04/30/18 04/30/18 04/30/18 Range/Units 09:23 11:52 16:47 RBC (4.30-5.90) m/uL Hgb (13.0-17.5) gm/dL Hct (39.0-53.0) % MCV (80.0-100.0) fL MCH (25.0-35.0) pg MCHC (31.0-37.0) g/dL RDW (11.5-15.5) % Lymphocytes # (1.0-4.8) k/uL BUN (9-20) mg/dL Glucose (74-99) mg/dL POC Glucose (mg/dL) 176 H 233 H (75-99) mg/dL Calcium (8.4-10.2) mg/dL AST (17-59) U/L ALT (21-72) U/L Total Protein (6.3-8.2) g/dL Albumin (3.5-5.0) g/dL Crossmatch See Detail 04/30/18 05/01/18 05/01/18 Range/Units 20:05 06:28 06:28 RBC 3.70 L (4.30-5.90) m/uL Hgb 7.8 L (13.0-17.5) gm/dL Hct 27.4 L (39.0-53.0) % MCV 74.2 L (80.0-100.0) fL MCH 21.0 L (25.0-35.0) pg MCHC 28.4 L (31.0-37.0) g/dL RDW 19.2 H (11.5-15.5) % Lymphocytes # 0.5 L (1.0-4.8) k/uL BUN 25 H (9-20) mg/dL Glucose 118 H (74-99) mg/dL POC Glucose (mg/dL) 188 H (75-99) mg/dL Calcium 7.8 L (8.4-10.2) mg/dL AST 440 H (17-59) U/L ALT 327 H (21-72) U/L Total Protein 5.8 L (6.3-8.2) g/dL Albumin 2.5 L (3.5-5.0) g/dL Crossmatch 05/01/18 Range/Units 06:50 RBC (4.30-5.90) m/uL Hgb (13.0-17.5) gm/dL Hct (39.0-53.0) % MCV (80.0-100.0) fL MCH (25.0-35.0) pg MCHC (31.0-37.0) g/dL RDW (11.5-15.5) % Lymphocytes # (1.0-4.8) k/uL BUN (9-20) mg/dL Glucose (74-99) mg/dL POC Glucose (mg/dL) 135 H (75-99) mg/dL Calcium (8.4-10.2) mg/dL AST (17-59) U/L ALT (21-72) U/L Total Protein (6.3-8.2) g/dL Albumin (3.5-5.0) g/dL Crossmatch Microbiology - Last 24 Hours (Table) 04/30/18 19:55 Gram Stain - Preliminary Sputum Sputum Culture - Preliminary 04/29/18 00:01 Blood Culture - Preliminary Blood No Growth after 48 hours 04/29/18 00:01 Urine Culture - Preliminary Urine,Voided Yeast species Assessment and Plan Plan: ASSESSMENT: Right lower lobe pneumonia, present on admission, positive gram positive with history of MRSA pneumonia, sputum culture pending Sepsis, present on admission, may be secondary to pneumonia or other infectious etiology Recent hospitalization for sepsis and pneumonia, discharged 04/16/2018 on 10 day regimen of Vancomycin Paroxysmal atrial fibrillation, maintained on long-term anticoagulation with Eliquis Coronary artery disease with previous coronary artery bypass grafting and previous stent placement Diabetes mellitus type II Multiple previous hospital admissions for pneumonia and sepsis Obstructive sleep apnea, questionable compliance with CPAP Chronic systolic congestive heart failure, EF 35-40% Microcytic hypochromic anemia, etiology unclear, patient was to have colonoscopy 03/2018 but unable to have procedure due to fevers and weakness. Patient does have hx of iron deficiency anemia but unable to tolerate iron supplements, s/p 1 unit RBC transfusion Chronic adrenal insufficiency, maintained on Cortef Previous cellulitis with MRSA History of MRSA pneumonia Hyperlipidemia Osteoarthritis Hypothyroidism Obesity: BMI 34.1 Transaminitis, etiology unclear, may be medication induced, secondary to hypoperfusion, or related to pancreatic mass, patient to follow up outpatient with Dr. Mcgrath PLAN: Pulmonary on consult. Appreciate recommendations and input CXR ordered this AM. await results. Dr. Hardin on consult. Appreciate recommendations and input Antibiotics per ID: Vanco and Levaquin Await results of sputum culture Novolog sliding scale. Increase levemir to patients home dose. Patient to follow up outpatient with Dr. Mcgrath regarding liver/pancreas Questionable whether Metformin is causing patients lactic acidosis. Continue to hold metformin as recommended by ID AMBIKA hose to bilateral LE. Elevate legs on pillows Home meds as appropriate Monitor labs GI prophylaxis: Protonix 20 mg PO Daily DVT prophylaxis: Eliquis 5mg PO BID Monitor vital signs and address as appropriate Discharge planning: Patient would like to return home upon discharge with home care Further recommendations pending patient's course Nurse practitioner note has been reviewed by physician. Signing provider agrees with the documented findings, assessment, and plan of care.
--- NOTE | 2018-05-01 15:06 | XR ---
EXAMINATION TYPE: XR chest 2V DATE OF EXAM: 05/01/2018 COMPARISON: 04/29/2018 HISTORY: Recurrent pneumonia and shortness of breath TECHNIQUE: Frontal and lateral views of the chest are obtained. FINDINGS: Diffuse interstitial prominence is redemonstrated most exaggerated on the lateral image. T here is additionally cardiomegaly, post CABG changes the chest, postsurgical changes of the cervical spine and trace pleural effusions. Right linear midlung atelectasis is now seen. Moderate acromioclav icular arthropathy and mild multilevel degenerative changes of the thoracic spine are noted. Cholecys tectomy clips are also seen on the lateral image. IMPRESSION: Redemonstration of diffuse interstitial prominence that could relate to cardiogenic flui d overload or atypical pneumonitis. This is similar in comparison to the prior in addition to trace p leural effusions.
[2018-05-01] MEDS ORDERED: FUROSEMIDE 10 MG/ML 2 ML VIAL IV STA (15:42)
[2018-05-01 17:21] LABS: Glucose,Whole Blood 315 mg/dL (75-99)
[2018-05-01] MEDS ORDERED: ARTIFICIAL TEARS-HYPROMELLOSE DROPS 15 ML BTL BOTH EYES PRN (17:37)
[2018-05-01 20:17] LABS: Glucose,Whole Blood 213 mg/dL (75-99)
[2018-05-01] MEDS: ATORVASTATIN 80 MG TAB PO SCH (21:24)
[2018-05-01] MEDS: MONTELUKAST 10 MG TAB PO SCH (21:24)
[2018-05-01] MEDS: VANCOMYCIN 1,500 MG in SODIUM CHLORIDE 0.9% 250 ML IVPB SCH (21:25)
[2018-05-01] MEDS: LEVOTHYROXINE 50 MCG TAB PO SCH (21:25)
[2018-05-01] MEDS: amLODIPine 5 MG TAB PO SCH (21:27)
[2018-05-02] MEDS: HYDROcodone/APAP 10-325MG 1 EACH TAB PO PRN ×2 (04:01→15:17)
[2018-05-02 06:52] LABS: Glucose,Whole Blood 120 mg/dL (75-99)
[2018-05-02] MEDS: IPRATROPIUM-ALBUTEROL 3 ML NEB INHALATION SCH ×4 (07:10→19:45)
[2018-05-02] MEDS: INSULIN ASPART 100 UNIT/ML 1 ML 10 ML VIAL SQ SCH ×4 (07:31→20:29)
[2018-05-02 07:47] LABS: Anisocytosis Slight; Basophils % (A) 0 %; Eosinophils # (A) 0.2 k/uL (0-0.7); Eosinophils % (A) 3 %; HCT 28.5 % (39.0-53.0); HGB 8.2 gm/dL (13.0-17.5); Hypochromasia Marked; Lymphocytes # (A) 0.6 k/uL (1.0-4.8); Lymphocytes % (A) 11 %; MCH 21.4 pg (25.0-35.0); MCHC 28.8 g/dL (31.0-37.0); MCV 74.5 fL (80.0-100.0); Mean Platelet Volume 6.7; Microcytosis Moderate; Monocytes # (A) 0.4 k/uL (0-1.0); Monocytes % (A) 8 %; Neutrophils % (A) 73 %; Platelet Count 261 k/uL (150-450); Poikilocytosis Moderate; RBC 3.82 m/uL (4.30-5.90); RDW 19.2 % (11.5-15.5); WBC 5.4 k/uL (3.8-10.6)
[2018-05-02 08:19] LABS: Albumin 2.6 g/dL (3.5-5.0); Calcium 7.7 mg/dL (8.4-10.2); Potassium 4.2 mmol/L (3.5-5.1); Total Bilirubin 0.8 mg/dL (0.2-1.3); Total Protein 6.1 g/dL (6.3-8.2)
[2018-05-02] MEDS: PANTOPRAZOLE 40 MG TABLET PO SCH (08:28)
[2018-05-02] MEDS: GABAPENTIN 400 MG CAP PO SCH ×4 (08:28→20:28)
[2018-05-02] MEDS: LISINOPRIL 5 MG TAB PO SCH (08:28)
[2018-05-02] MEDS: FUROSEMIDE 20 MG TAB PO SCH (08:30)
[2018-05-02] MEDS: APIXABAN 5 MG TAB PO SCH ×2 (08:30→20:29)
[2018-05-02] MEDS: DULoxetine HCL 30 MG CAPSULE.DR PO SCH ×2 (08:30→20:28)
[2018-05-02] MEDS: METOPROLOL TARTRATE 25 MG TAB PO SCH ×2 (08:30→22:45)
[2018-05-02] MEDS: HYDROCORTISONE 20 MG TAB PO SCH (08:31)
[2018-05-02] MEDS: LEVOFLOXACIN 750 MG TAB PO SCH (08:31)
[2018-05-02] MEDS: CLOTRIMAZOLE/BETAMETH 1-0.05% CREAM 45 GM TUBE TOPICAL SCH ×2 (08:32→20:30)
[2018-05-02] MEDS: INSULIN DETEMIR 100 UNIT/ML 10 ML VIAL SQ SCH ×2 (08:37→20:29)
[2018-05-02 11:23] LABS: Glucose,Whole Blood 113 mg/dL (75-99)
--- NOTE | 2018-05-02 11:31 | P.PN ---
Subjective Progress Note Date: 05/02/18 57-year-old male who presented to the emergency room with a chief complaint of fever and generalized malaise. The patient was recently admitted from 04/08/2018 until 04/16/2018 secondary to sepsis and pneumonia. The patient had a PICC line placed at that time and he was discharged home on a 10 day course of vancomycin. The patient states he was doing well at home and was feeling relatively well until yesterday evening. Patient's spouse is at the bedside who states he had a low-grade temperature of 99.0 yesterday evening. She states that she gave him ibuprofen but his temperature continued to increase. She brought the patient to the emergency room for further evaluation. He does report coughing. The patient currently denies chest pain or pressure. Denies shortness of breath. Denies nausea or vomiting. He states he does not have much of an appetite today but prior to coming to the hospital his appetite has been good and he has been eating well at home. Denies dizziness or lightheadedness. 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 He has also had a myocardial infarction 2006 and 2007. His past surgical history includes bowel resection, cholecystectomy, coronary artery bypass graft, heart catheterization with multiple stents, hernia repair, and joint replacements. He has had multiple hospitalizations for pneumonia and sepsis. Chest x-ray: Interstitial pulmonary infiltrates on the right side more than the left. No heart failure. There is pleural reaction at the right lung base. Right lung appears worse than last exam. This is consistent with inflammatory disease. Laboratory data on admission reveals white count of 11.4. Hemoglobin 8.0. Platelet count 389. INR 1.4. Sodium 139. Potassium 4.0. Chloride 97. BUN 27. Creatinine 1.10. Glucose 169. AST 65. ALT 98. Albumin 3.1. Initial lactic acid was 2.6 which then increased to 3.9. The patient has been receiving IV fluids and his most recent lactic acid is 2.0. Urinalysis reveals: 1+ proteinuria, 2+ bilirubin, rare mucus. The patient was started on IV antibiotics in the form of Vanco, Levaquin, and Zosyn. He was admitted to the hospital under the care of Dr. Romero. 04/30/2018 Patient seen and examined at the bedside. Patient states he is feeling better today. He states he did sleep well last night but was having difficulty with the hospital cpap machine because the positive airway pressure is set to [id number] and his home machine is set to 7. He was febrile last night but he is afebrile this morning. Blood cultures are negative at the 24 hour solange. Sputum culture is pending. Patient remains on Vanco and Levaquin. Patient's hemoglobin is 7.0 today. Creatinine has increased to 1.35 from 1.10 yesterday. AST increased from 65-443. ALT increased from 98-270. Patient does have a history of a pancreatic mass and follows with Dr. Mcgrath. Patient reports a CT or MRI performed downtown earlier this year. 05/01/2018 Patient seen and examined at the bedside. Patient continues to improve clinically. He denies shortness of breath. He does report some coughing last night. He also had a very brief episode of chest pain that was slightly above the epigastric region. He reports it the pain was a dull aching feeling. He reports when he previously had heart issues the pain felt like a stabbing sensation and this episode did not feel that like. The patient states he thinks it may be related to his CPAP machine. He reports he was having issues with his home CPAP last night and states the machine was blowing air very forcefully and making it hard for him to breathe and making his nasal passages very dry and uncomfortable. Chest pain resolved on its own without treatment. No further episodes of chest pain. Hemoglobin is 7.8, s/p transfusion of 1 unit RBC. WBC is 4.5. Creatinine is 1.25. BUN 25. AST decreased from 443-440. ALT increased from 270-327. Records from Dr. Mcgrath were obtained. Patient was last seen in their office in August 2017. According to Dr. Mcgrath's dictation patient has a history of pancreatic tail neuroendocrine tumor. Surgical options were discussed with patient, although Dr. Mcgrath did mention patient was not a great surgical candidate. The patient and his decided against surgical intervention. The patient had a CT scan in 08/2017 of his abdomen and pelvis which revealed several small geographic areas of hypodensity in the subcapsular region of both liver lobes, with overlying mild capsular retraction. These areas are larger and new from prior exam. Dr. Mcgrath recommended 6 month follow up with octreoscan to make determination of liver issue. Patient does report he has an appointment scheduled soon for this imaging but is unsure of the exact date. 05/02/2018 Patient seen and examined at the bedside on rounds with Dr. Romero. Patient states he slept well last night and tolerated his CPAP machine. Patient reports improvement in his symptoms of his rash on his upper chest with the addition of Lotrisone cream. Patient did have an episode of increased shortness of breath yesterday afternoon. He received 20 mg Lasix IV 1 dose. He was also restarted on Lasix 20 mg by mouth daily. Patient states his shortness of breath has improved. LFTs are trending downward. Hemoglobin is 8.2. White count is 5.4. Objective - Vital Signs Vital signs: Vital Signs Temp 98.7 F 05/02/18 07:51 Pulse 82 05/02/18 10:53 Resp 20 05/02/18 08:00 BP 133/59 05/02/18 07:51 Pulse Ox 94 L 05/02/18 11:16 Intake & Output 05/01/18 05/02/18 05/02/18 18:59 06:59 18:59 Intake Total 1780 480 Output Total 700 Balance 1080 480 Weight 103 kg 103 kg Intake: Intake, IV Titration 900 Amount Sodium Chloride 0.9% 1, 900 000 ml @ 100 mls/hr IV . Q10H [facility] Rx#:[id number] Oral 880 480 Output: Urine 700 Other: Voiding Method Urinal Urinal Urinal # Voids 1 1 2 - Exam 57-year-old male in no acute distress - Constitutional General appearance: Present: cooperative, no acute distress - EENT Eyes: Present: EOMI, PERRLA - Neck Neck: Present: normal ROM - Respiratory Respiratory: bilateral: rales (Rales noted to bilateral bases.) - Cardiovascular Rhythm: regular Heart sounds: normal: S1, S2 Abnormal Heart Sounds: Absent: systolic murmur, diastolic murmur - Peripheral edema ankle Peripheral Edema: bilateral: 1+ leg Peripheral Edema: bilateral: 1+ - Gastrointestinal General gastrointestinal: Present: normal bowel sounds, soft. Absent: rigid, tenderness - Integumentary Integumentary: Present: normal. Absent: cyanotic, flushed, jaundiced - Neurologic Neurologic: Present: CNII-XII intact - Psychiatric Psychiatric: Present: A&O x's 3, appropriate affect, intact judgment & insight - Labs CBC & Chem 7: 05/02/18 07:23 05/02/18 07:23 Labs: Abnormal Lab Results - Last 24 Hours (Table) 05/01/18 05/01/18 05/02/18 Range/Units 17:20 20:16 06:51 RBC (4.30-5.90) m/uL Hgb (13.0-17.5) gm/dL Hct (39.0-53.0) % MCV (80.0-100.0) fL MCH (25.0-35.0) pg MCHC (31.0-37.0) g/dL RDW (11.5-15.5) % Lymphocytes # (1.0-4.8) k/uL BUN (9-20) mg/dL POC Glucose (mg/dL) 315 H 213 H 120 H (75-99) mg/dL Calcium (8.4-10.2) mg/dL AST (17-59) U/L ALT (21-72) U/L Alkaline Phosphatase (38-126) U/L Total Protein (6.3-8.2) g/dL Albumin (3.5-5.0) g/dL 05/02/18 05/02/18 05/02/18 Range/Units 07:23 07:23 11:22 RBC 3.82 L (4.30-5.90) m/uL Hgb 8.2 L (13.0-17.5) gm/dL Hct 28.5 L (39.0-53.0) % MCV 74.5 L (80.0-100.0) fL MCH 21.4 L (25.0-35.0) pg MCHC 28.8 L (31.0-37.0) g/dL RDW 19.2 H (11.5-15.5) % Lymphocytes # 0.6 L (1.0-4.8) k/uL BUN 26 H (9-20) mg/dL POC Glucose (mg/dL) 113 H (75-99) mg/dL Calcium 7.7 L (8.4-10.2) mg/dL AST 315 H (17-59) U/L ALT 317 H (21-72) U/L Alkaline Phosphatase 171 H (38-126) U/L Total Protein 6.1 L (6.3-8.2) g/dL Albumin 2.6 L (3.5-5.0) g/dL Microbiology - Last 24 Hours (Table) 04/29/18 00:01 Blood Culture - Preliminary Blood No Growth after 72 hours 04/29/18 00:01 Urine Culture - Final Urine,Voided Radha sp,not albicans/galbr 04/30/18 19:55 Gram Stain - Preliminary Sputum Sputum Culture - Preliminary Assessment and Plan Plan: ASSESSMENT: Right lower lobe pneumonia, present on admission, possible gram positive with history of MRSA pneumonia, sputum culture pending Sepsis, present on admission, may be secondary to pneumonia or other infectious etiology Recent hospitalization for sepsis and pneumonia, discharged 04/16/2018 on 10 day regimen of Vancomycin Paroxysmal atrial fibrillation, maintained on long-term anticoagulation with Eliquis Coronary artery disease with previous coronary artery bypass grafting and previous stent placement Diabetes mellitus type II Multiple previous hospital admissions for pneumonia and sepsis Obstructive sleep apnea, questionable compliance with CPAP Chronic systolic congestive heart failure, EF 35-40% Microcytic hypochromic anemia, etiology unclear, patient was to have colonoscopy 03/2018 but unable to have procedure due to fevers and weakness. Patient does have hx of iron deficiency anemia but unable to tolerate iron supplements, s/p 1 unit RBC transfusion Chronic adrenal insufficiency, maintained on Cortef Previous cellulitis with MRSA History of MRSA pneumonia Hyperlipidemia Osteoarthritis Hypothyroidism Obesity: BMI 34.1 Transaminitis, etiology unclear, may be medication induced, secondary to hypoperfusion, or related to pancreatic mass, however less likely, patient to follow up outpatient with Dr. Mcgrath PLAN: Pulmonary on consult. Appreciate recommendations and input Continue Lasix 20 mg by mouth daily. Repeat chest x-ray this afternoon. Dr. Hardin on consult. Appreciate recommendations and input Antibiotics per ID: Vanco and Levaquin Await results of sputum culture Patient to follow up outpatient with Dr. Mcgrath regarding liver/pancreas Questionable whether Metformin is causing patients lactic acidosis. Continue to hold metformin as recommended by ID Home O2 at the time of discharge Home meds as appropriate Monitor labs GI prophylaxis: Protonix 20 mg PO Daily DVT prophylaxis: Eliquis 5mg PO BID Monitor vital signs and address as appropriate Discharge planning: Patient would like to return home upon discharge with home care Further recommendations pending patient's course Nurse practitioner note has been reviewed by physician. Signing provider agrees with the documented findings, assessment, and plan of care.
--- NOTE | 2018-05-02 13:42 | P.PN ---
Subjective Progress Note Date: 05/01/18 57-year-old male who is well-known to the infectious disease service because of his multiple bouts of sepsis. Earlier this year the patient was hospitalized for multifocal pneumonia and MRSA was isolated from his sputum. After hospitalization he had improvement in completed his course of oral trimethoprim sulfamethoxazole with good resolution. He has had difficulties in the past with diabetes mellitus type 2 with poor control, severe coronary artery disease with several myocardial infarctions and chronic polyneuropathy. He does have a known history of gout and psoriasis that has been very difficult to control over time but have been better as of late. He did have several admissions where he was having difficulties with lactic acidosis that was thought to be medication induced and also hospitalizations for MRSA pneumonia. Patient was recently hospitalized April 08 through April 16 and was discharged with vancomycin for 10 days. Patient states he is still on antibiotics by IV and his had follow-up with Dr. Hardin in the office. Last evening he develped fever. In general he states he feels terrible. He complains of muscle aches and joint aches all over his body. He has a cough that is productive. He has a little shortness of breath. He denies any abdominal pain, nausea, vomiting or diarrhea. He does complain of loss of appetite. He denies any difficulty or pain with urination. Patient came into [facility] emergency center for evaluation. His white count was 11.4, temperature max 101.8, blood was clear with 2+ bilirubin. Blood cultures status received, sputum cultures on collected and urine cultures received. Chest x-ray showed interstitial pulmonary infiltrate right greater than left with no heart failure. Right worse then last exam. Is being followed by pulmonary critical care. 05/01/2018 patient is feeling better today. His acidosis is improved. He is less short of breath. He is not having much pain or discomfort. He does clarify that he is in need of further follow-up with his surgeon in the [place] area regarding his mass in his pancreas. The patient's fever has resolved and metformin has been discontinued. He's using his BiPAP from home. Objective - Vital Signs Vital signs: Vital Signs Temp 98.7 F 05/02/18 07:51 Pulse 82 05/02/18 10:53 Resp 20 05/02/18 08:00 BP 133/59 08/17/18 07:51 Pulse Ox 94 L 05/02/18 11:20 Intake & Output 05/01/18 05/02/18 05/02/18 18:59 06:59 18:59 Intake Total 1780 480 400 Output Total 700 Balance 1080 480 400 Weight 103 kg 103 kg Intake: Intake, IV Titration 900 Amount Sodium Chloride 0.9% 1, 900 000 ml @ 100 mls/hr IV . Q10H [facility] Rx#:[id number] Oral 880 480 400 Output: Urine 700 Other: Voiding Method Urinal Urinal Urinal # Voids 1 1 2 - Exam Gen: This is a obese 57-year-old male. awake and alert to questions appropriately. He does not appear to be in any respiratory distress. HEENT: Head is atraumatic, normocephalic. Pupils equal, round. Sclerae is anicteric. Oral mucous membranes are very dry. No thrush noted. Patient is edentulous. NECK: Supple. No JVD. No lymphadenopathy. No thyromegaly. LUNGS: Rhonchus diminished bilateral bases. No intercostal retractions. HEART: Regular rate and rhythm. No murmur. ABDOMEN: Soft. Bowel sounds are present. No masses. No tenderness. EXTREMITIES: 1+ pedal edema. Dorsalis pedis is weak bilaterally. NEUROLOGICAL: awake alert and no acute deficits noted. Weakness is slightly improved today he is able to move himself more readily in the bed. - Labs CBC & Chem 7: 05/02/18 07:23 05/02/18 07:23 Labs: Abnormal Lab Results - Last 24 Hours (Table) 05/01/18 05/01/18 05/02/18 Range/Units 17:20 20:16 06:51 RBC (4.30-5.90) m/uL Hgb (13.0-17.5) gm/dL Hct (39.0-53.0) % MCV (80.0-100.0) fL MCH (25.0-35.0) pg MCHC (31.0-37.0) g/dL RDW (11.5-15.5) % Lymphocytes # (1.0-4.8) k/uL BUN (9-20) mg/dL POC Glucose (mg/dL) 315 H 213 H 120 H (75-99) mg/dL Calcium (8.4-10.2) mg/dL AST (17-59) U/L ALT (21-72) U/L Alkaline Phosphatase (38-126) U/L Total Protein (6.3-8.2) g/dL Albumin (3.5-5.0) g/dL 05/02/18 05/02/18 05/02/18 Range/Units 07:23 07:23 11:22 RBC 3.82 L (4.30-5.90) m/uL Hgb 8.2 L (13.0-17.5) gm/dL Hct 28.5 L (39.0-53.0) % MCV 74.5 L (80.0-100.0) fL MCH 21.4 L (25.0-35.0) pg MCHC 28.8 L (31.0-37.0) g/dL RDW 19.2 H (11.5-15.5) % Lymphocytes # 0.6 L (1.0-4.8) k/uL BUN 26 H (9-20) mg/dL POC Glucose (mg/dL) 113 H (75-99) mg/dL Calcium 7.7 L (8.4-10.2) mg/dL AST 315 H (17-59) U/L ALT 317 H (21-72) U/L Alkaline Phosphatase 171 H (38-126) U/L Total Protein 6.1 L (6.3-8.2) g/dL Albumin 2.6 L (3.5-5.0) g/dL Microbiology - Last 24 Hours (Table) 04/29/18 00:01 Blood Culture - Preliminary Blood No Growth after 72 hours 04/29/18 00:01 Urine Culture - Final Urine,Voided Radha sp,not albicans/galbr Assessment and Plan (1) Pneumonia Narrative/Plan: As noted Mr. Ribera is well-known to the service and was recently hospitalized and discharged on a course of intravenous vancomycin and follow-up was actually doing quite well except for weakness and difficulty transporting to the office. He is receiving his outpatient IV antibiotic therapy with improvement. Until he had the sudden onset of fever and altered mental status and is now brought back in the hospital. His chest x-ray is stable to slightly worsened with concerns to possible worsening pneumonia. In with this since he is on vancomycin therapy would be concerns to a gram-negative pneumonia. Antibiotic therapy has been expanded to include piperacillin tazobactam and Levaquin in addition to the vancomycin pending further culture data. Cultures are in process and antipyretics given his needed for his fever. The patient did again have lactic acidosis his medication list is again reviewed and he is back on metformin. There was significant concerns when he was having recurrent bouts of lactic acidosis and concerns of sepsis last year he was having a metabolic abnormality related to his medications, with discontinuation of allopurinol and metformin is bouts of acidosis did stop. We did discuss this with the primary service and metformin is now discontinued and is my opinion to not rechallenge him with his medication at any time in the future. Antipruritics are being utilized because of his fever blood cultures are in process sputum culture if possible will be obtained. Urinalysis appears to be negative. No evidence of any new skin lesions or infections at this time. Pulmonary critical care is following and will proceed with further interventions as needed including bronchoscopy if he fails to improve. With hydration his lactic acidosis has partially improved and his creatinine is stable from his last A1c was 5.5 Today he is more awake and alert feeling somewhat better. There is waxing and waning of his pulmonary status, concerns to volume an underlying pneumonia. He is been receiving outpatient intravenous antibiotic therapy for his sepsis the vancomycin will continue till next week. Is been treated for potential gram- negative pneumonia. Cultures in process we'll monitor. Current Visit: Yes Status: Acute Code(s): J18.9 - PNEUMONIA, UNSPECIFIED ORGANISM SNOMED Code(s): 340113356 (2) Lactic acidosis Current Visit: Yes Status: Acute Code(s): E87.2 - ACIDOSIS SNOMED Code(s) : 31377741 (3) Diabetes mellitus type 2 with complications Current Visit: No Status: Acute Code(s): E11.8 - TYPE 2 DIABETES MELLITUS WITH UNSPECIFIED COMPLICATIONS SNOMED Code(s): 77235982 (4) Altered mental status Current Visit: No Status: Acute Code(s): R41.82 - ALTERED MENTAL STATUS, UNSPECIFIED SNOMED Code(s): 031265744
--- NOTE | 2018-05-02 13:44 | XR ---
EXAMINATION TYPE: XR chest 2V DATE OF EXAM: 05/02/2018 COMPARISON: Chest x-ray from yesterday and older studies. HISTORY: Shortness of breath and right lower lobe pneumonia progress study. TECHNIQUE: Frontal and lateral views of the chest are obtained. FINDINGS: There is stable left-sided PICC line overlying sternal wires and mediastinal clips are red emonstrated. There is persistent cardiomegaly with small bilateral pleural effusions and fluid extend ing into fissures. There is mild to moderate central vascular congestion remaining present. There is patchy right basilar atelectasis and/or infiltrate redemonstrated. No elevated left hemidiaphragm is noted. Surgical change cervical spine is partially imaged. IMPRESSION: Suspect CHF exacerbation as there is cardiomegaly with small bilateral pleural effusions and mild to moderate central vascular congestion. Persistent patchy right basilar atelectasis and/or infiltrate is noted. No significant progression from one day earlier.
[2018-05-02] MEDS ORDERED: FUROSEMIDE 10 MG/ML 4 ML VIAL IV STA (14:27)
--- NOTE | 2018-05-02 14:27 | P.PN ---
Subjective Progress Note Date: 05/02/18 Principal diagnosis: Acute on chronic hypoxic respiratory failure with sepsis secondary to right lower lobe pneumonia Progress note dated 05/01/2018 This is a 57-year-old male with a history of sepsis, related to right lower lobe pneumonia. The patient presented with fever cough phlegm production and lactic acidemia. The patient had a recent hospitalization for bilateral pneumonia and sepsis and he was discharged on April 16 of this year. Subsequent to that, the patient received IV vancomycin as an outpatient for MRSA. The patient also has a history of sleep apnea syndrome, currently on CPAP hypertension, hyperlipidemia, hypothyroidism, diabetes, and peripheral neuropathy. The patient also has a history of GERD parapneumonic effusion CAD with bypass grafting Caio MRSA infection of the right hand and chronic elevations of his liver function. Currently, the patient is doing much better. Much more awake and alert. Feeling much better. Apparently he states he is getting a chest x-ray. Labs today, show a white count of 4.5, a hemoglobin of 7.8, hematocrit of 27.4 and a normal platelet count. In addition, electrolytes are normal with a BUN of 25 and a creatinine of 1.25. Blood urine and sputum sampling essentially negative. The patient was seen again today 05/02/2018 in follow-up on the regular medical floor. He is currently awake and alert in no acute distress. Resting quite comfortably in bed. He denies any worsening shortness of breath, cough or congestion. He did ambulate without his oxygen and dropped as low as 79 and will be discharged home on oxygen. He does remain afebrile. Hemodynamically stable. Cultures revealing no growth thus far. White count 5.4. Hemoglobin 8.2. AST 3:15, ALT 317, alk phos 171. Today's chest x-ray shows evidence of fluid volume overload. We'll give additional IV Lasix today. Objective - Vital Signs Vital signs: Vital Signs Temp 98.7 F 05/02/18 07:51 Pulse 82 05/02/18 10:53 Resp 20 05/02/18 08:00 BP 133/59 05/02/18 07:51 Pulse Ox 86 L 05/02/18 13:30 Intake & Output 05/01/18 05/02/18 05/02/18 18:59 06:59 18:59 Intake Total 1780 480 400 Output Total 700 Balance 1080 480 400 Weight 103 kg 103 kg Intake: Intake, IV Titration 900 Amount Sodium Chloride 0.9% 1, 900 000 ml @ 100 mls/hr IV . Q10H [facility] Rx#:[id number] Oral 880 480 400 Output: Urine 700 Other: Voiding Method Urinal Urinal Urinal # Voids 1 1 2 - Exam No acute distress, oriented 3. Nasal O2 in place. HEENT examination is grossly unremarkable. Mucous membranes are moist. No oral lesions. Neck supple. Full range of motion. No adenopathy thyromegaly or neck vein distention. Cardiovascular examination reveals regular rhythm rate. S1-S2 normal. No S3 or S4. No discernible murmur noted. Lungs reveal mostly clear breath sounds. A few scattered rhonchi. No wheezes or crackles. Breath sounds are much improved. Abdomen soft bowel sounds are heard. No masses or tenderness. Extremities are intact. Minimal lower extremity edema is noted. No cyanosis or clubbing. Skin is without rash or lesion. Neurologic examination is brief but nonfocal. - Labs CBC & Chem 7: 05/02/18 07:23 05/02/18 07:23 Labs: Abnormal Lab Results - Last 24 Hours (Table) 05/01/18 05/01/18 05/02/18 Range/Units 17:20 20:16 06:51 RBC (4.30-5.90) m/uL Hgb (13.0-17.5) gm/dL Hct (39.0-53.0) % MCV (80.0-100.0) fL MCH (25.0-35.0) pg MCHC (31.0-37.0) g/dL RDW (11.5-15.5) % Lymphocytes # (1.0-4.8) k/uL BUN (9-20) mg/dL POC Glucose (mg/dL) 315 H 213 H 120 H (75-99) mg/dL Calcium (8.4-10.2) mg/dL AST (17-59) U/L ALT (21-72) U/L Alkaline Phosphatase (38-126) U/L Total Protein (6.3-8.2) g/dL Albumin (3.5-5.0) g/dL 05/02/18 05/02/18 05/02/18 Range/Units 07:23 07:23 11:22 RBC 3.82 L (4.30-5.90) m/uL Hgb 8.2 L (13.0-17.5) gm/dL Hct 28.5 L (39.0-53.0) % MCV 74.5 L (80.0-100.0) fL MCH 21.4 L (25.0-35.0) pg MCHC 28.8 L (31.0-37.0) g/dL RDW 19.2 H (11.5-15.5) % Lymphocytes # 0.6 L (1.0-4.8) k/uL BUN 26 H (9-20) mg/dL POC Glucose (mg/dL) 113 H (75-99) mg/dL Calcium 7.7 L (8.4-10.2) mg/dL AST 315 H (17-59) U/L ALT 317 H (21-72) U/L Alkaline Phosphatase 171 H (38-126) U/L Total Protein 6.1 L (6.3-8.2) g/dL Albumin 2.6 L (3.5-5.0) g/dL Microbiology - Last 24 Hours (Table) 04/29/18 00:01 Blood Culture - Preliminary Blood No Growth after 72 hours 04/29/18 00:01 Urine Culture - Final Urine,Voided Radha sp,not albicans/galbr Assessment and Plan Assessment: Assessment Sepsis, likely related to right lower lobe pneumonia Recent hospitalization for bilateral pneumonia and sepsis, secondary to MRSA infection, treated with vancomycin IV Sleep apnea syndrome, currently on CPAP History of hypertension History of hyperlipidemia Hypothyroidism Diabetes mellitus type 2 Peripheral neuropathy GERD Previous episode of pneumonia with parapneumonic effusion, with chest tube drainage CAD, status post bypass grafting Previous MRSA infection of the right hand Plan: The patient was seen and evaluated by Dr. Soto. His x-ray and labs were reviewed. There is some fluid volume overload along the small bilateral pleural effusions with mild to moderate central vascular congestion. There is a persistent right basilar patchy infiltrate no worse from previous. We will give an additional Lasix 40 mg IV push today. We will continue with his current medications. Increase his activity as tolerated. May need to be discharged on home oxygen. We will continue to follow. I, the cosigning physician, performed a history & physical examination of the patient. Lungs sounds with crackles in the posterior bases right greater than left. Maintaining good O2 saturations in the 90s on 2 L/m per nasal cannula. I discussed the assessment and plan of care with my nurse practitioner, Cheryl Stearns. I attest to the above note as dictated by her.
[2018-05-02 16:43] LABS: Glucose,Whole Blood 170 mg/dL (75-99)
[2018-05-02 20:17] LABS: Glucose,Whole Blood 157 mg/dL (75-99)
[2018-05-02] MEDS: VANCOMYCIN 1,500 MG in SODIUM CHLORIDE 0.9% 250 ML IVPB SCH (20:27)
[2018-05-02] MEDS: amLODIPine 5 MG TAB PO SCH (20:27)
[2018-05-02] MEDS: LEVOTHYROXINE 50 MCG TAB PO SCH (20:28)
[2018-05-02] MEDS: MONTELUKAST 10 MG TAB PO SCH (20:29)
[2018-05-02] MEDS: ATORVASTATIN 80 MG TAB PO SCH (20:29)
--- NOTE | 2018-05-02 22:11 | P.PN ---
Subjective Progress Note Date: 05/02/18 57-year-old male who is well-known to the infectious disease service because of his multiple bouts of sepsis. Earlier this year the patient was hospitalized for multifocal pneumonia and MRSA was isolated from his sputum. After hospitalization he had improvement in completed his course of oral trimethoprim sulfamethoxazole with good resolution. He has had difficulties in the past with diabetes mellitus type 2 with poor control, severe coronary artery disease with several myocardial infarctions and chronic polyneuropathy. He does have a known history of gout and psoriasis that has been very difficult to control over time but have been better as of late. He did have several admissions where he was having difficulties with lactic acidosis that was thought to be medication induced and also hospitalizations for MRSA pneumonia. Patient was recently hospitalized April 08 through April 16 and was discharged with vancomycin for 10 days. Patient states he is still on antibiotics by IV and his had follow-up with Dr. Hardin in the office. Last evening he develped fever. In general he states he feels terrible. He complains of muscle aches and joint aches all over his body. He has a cough that is productive. He has a little shortness of breath. He denies any abdominal pain, nausea, vomiting or diarrhea. He does complain of loss of appetite. He denies any difficulty or pain with urination. Patient came into [facility] emergency center for evaluation. His white count was 11.4, temperature max 101.8, blood was clear with 2+ bilirubin. Blood cultures status received, sputum cultures on collected and urine cultures received. Chest x-ray showed interstitial pulmonary infiltrate right greater than left with no heart failure. Right worse then last exam. Is being followed by pulmonary critical care. 05/01/2018 patient is feeling better today. His acidosis is improved. He is less short of breath. He is not having much pain or discomfort. He does clarify that he is in need of further follow-up with his surgeon in the [place] area regarding his mass in his pancreas. The patient's fever has resolved and metformin has been discontinued. He's using his BiPAP from home. 05/02/2018 patient is feeling somewhat better. He still has edema but is less short of breath with the diuretic therapy. No further fevers or chills He has been on a course of outpatient intravenous antibiotic therapy that is likely completely in the near future. There likely is a significant component of volume overload to his chest x-ray changes. His acidosis is resolved. No new positive cultures are noted at this time. Pulmonary has evaluated and likely patient will be discharged home on oxygen supplemental therapy in addition to his BiPAP. Likely we'll be utilizing levofloxacin to complete his pneumonia treatment and discharge. Objective - Vital Signs Vital signs: Vital Signs Temp 97.5 F L 05/02/18 16:50 Pulse 78 05/02/18 20:01 Resp 18 05/02/18 16:50 BP 122/57 05/02/18 16:50 Pulse Ox 94 L 05/02/18 16:50 Intake & Output 05/02/18 05/02/18 05/03/18 06:59 18:59 06:59 Intake Total 480 400 810 Output Total 800 650 Balance 480 -400 160 Weight 103 kg 103 kg Intake: Intake, IV Titration 250 Amount Vancomycin 1,500 mg In 250 Sodium Chloride 0.9% 250 ml @ 125 mls/hr IVPB Q24H [facility] Rx#:[id number] Oral 480 400 560 Output: Urine 800 650 Other: Voiding Method Urinal Urinal # Voids 1 2 - Labs CBC & Chem 7: 05/02/18 07:23 05/02/18 07:23 Labs: Abnormal Lab Results - Last 24 Hours (Table) 05/02/18 05/02/18 05/02/18 Range/Units 06:51 07:23 07:23 RBC 3.82 L (4.30-5.90) m/uL Hgb 8.2 L (13.0-17.5) gm/dL Hct 28.5 L (39.0-53.0) % MCV 74.5 L (80.0-100.0) fL MCH 21.4 L (25.0-35.0) pg MCHC 28.8 L (31.0-37.0) g/dL RDW 19.2 H (11.5-15.5) % Lymphocytes # 0.6 L (1.0-4.8) k/uL BUN 26 H (9-20) mg/dL POC Glucose (mg/dL) 120 H (75-99) mg/dL Calcium 7.7 L (8.4-10.2) mg/dL AST 315 H (17-59) U/L ALT 317 H (21-72) U/L Alkaline Phosphatase 171 H (38-126) U/L Total Protein 6.1 L (6.3-8.2) g/dL Albumin 2.6 L (3.5-5.0) g/dL 05/02/18 05/02/18 05/02/18 Range/Units 11:22 16:42 20:16 RBC (4.30-5.90) m/uL Hgb (13.0-17.5) gm/dL Hct (39.0-53.0) % MCV (80.0-100.0) fL MCH (25.0-35.0) pg MCHC (31.0-37.0) g/dL RDW (11.5-15.5) % Lymphocytes # (1.0-4.8) k/uL BUN (9-20) mg/dL POC Glucose (mg/dL) 113 H 170 H 157 H (75-99) mg/dL Calcium (8.4-10.2) mg/dL AST (17-59) U/L ALT (21-72) U/L Alkaline Phosphatase (38-126) U/L Total Protein (6.3-8.2) g/dL Albumin (3.5-5.0) g/dL Microbiology - Last 24 Hours (Table) 04/29/18 00:01 Blood Culture - Preliminary Blood No Growth after 72 hours Assessment and Plan (1) Pneumonia Current Visit: Yes Status: Acute Code(s): J18.9 - PNEUMONIA, UNSPECIFIED ORGANISM SNOMED Code(s): 143989009 (2) Lactic acidosis Current Visit: Yes Status: Acute Code(s): E87.2 - ACIDOSIS SNOMED Code(s) : 95939091 (3) Diabetes mellitus type 2 with complications Current Visit: No Status: Acute Code(s): E11.8 - TYPE 2 DIABETES MELLITUS WITH UNSPECIFIED COMPLICATIONS SNOMED Code(s): 99068666 (4) Altered mental status Current Visit: No Status: Acute Code(s): R41.82 - ALTERED MENTAL STATUS, UNSPECIFIED SNOMED Code(s): 516121237
[2018-05-03] MEDS: HYDROcodone/APAP 10-325MG 1 EACH TAB PO PRN ×3 (01:51→22:20)
[2018-05-03 06:55] LABS: Glucose,Whole Blood 78 mg/dL (75-99)
[2018-05-03] MEDS: IPRATROPIUM-ALBUTEROL 3 ML NEB INHALATION SCH ×4 (06:58→19:19)
[2018-05-03] MEDS: INSULIN ASPART 100 UNIT/ML 1 ML 10 ML VIAL SQ SCH ×4 (07:57→21:07)
[2018-05-03] MEDS: PANTOPRAZOLE 40 MG TABLET PO SCH (07:58)
[2018-05-03] MEDS: GABAPENTIN 400 MG CAP PO SCH ×4 (07:59→21:06)
[2018-05-03] MEDS: LISINOPRIL 5 MG TAB PO SCH (07:59)
[2018-05-03] MEDS: DULoxetine HCL 30 MG CAPSULE.DR PO SCH ×2 (07:59→21:06)
[2018-05-03] MEDS: HYDROCORTISONE 20 MG TAB PO SCH (07:59)
[2018-05-03] MEDS: FUROSEMIDE 20 MG TAB PO SCH (07:59)
[2018-05-03] MEDS: METOPROLOL TARTRATE 25 MG TAB PO SCH ×2 (07:59→21:06)
[2018-05-03] MEDS: APIXABAN 5 MG TAB PO SCH ×2 (07:59→21:06)
[2018-05-03] MEDS: LEVOFLOXACIN 750 MG TAB PO SCH (08:00)
[2018-05-03] MEDS: CLOTRIMAZOLE/BETAMETH 1-0.05% CREAM 45 GM TUBE TOPICAL SCH ×2 (08:01→21:07)
[2018-05-03 08:25] LABS: Anisocytosis Slight; Basophils % (A) 0 %; Eosinophils # (A) 0.2 k/uL (0-0.7); Eosinophils % (A) 3 %; HCT 30.2 % (39.0-53.0); HGB 8.6 gm/dL (13.0-17.5); Hypochromasia Marked; Lymphocytes # (A) 0.6 k/uL (1.0-4.8); Lymphocytes % (A) 10 %; MCH 20.6 pg (25.0-35.0); MCHC 28.5 g/dL (31.0-37.0); MCV 72.3 fL (80.0-100.0); Mean Platelet Volume 7.6; Microcytosis Marked; Monocytes # (A) 0.5 k/uL (0-1.0); Monocytes % (A) 9 %; Neutrophils # (A) 4.3 k/uL (1.3-7.7); Neutrophils % (A) 75 %; Platelet Count 264 k/uL (150-450); Poikilocytosis Slight; RBC 4.18 m/uL (4.30-5.90); RDW 19.7 % (11.5-15.5); WBC 5.7 k/uL (3.8-10.6)
[2018-05-03 08:46] LABS: Albumin 2.7 g/dL (3.5-5.0); Potassium 3.5 mmol/L (3.5-5.1); Total Bilirubin 0.8 mg/dL (0.2-1.3); Total Protein 6.2 g/dL (6.3-8.2)
[2018-05-03] MEDS: INSULIN DETEMIR 100 UNIT/ML 10 ML VIAL SQ SCH ×2 (08:57→21:07)
--- NOTE | 2018-05-03 10:26 | PN ---
PROGRESS NOTE 57-year-old white male was presented to emergency room with chief complaint of fever and general malaise. The patient had been recently admitted 04/08/2018 until 04/16/2018 with sepsis and pneumonia. The patient had a PICC line placed and was sent home on a 10 day course of vancomycin. The patient states he was doing well at home and was relatively well until the evening before admission. The patient's spouse is at the bedside, who states she had a low-grade temperature of 99 yesterday. She states that she gave him ibuprofen, but his temperature continued to increase. He was brought to the emergency room for further evaluation. He did not report any coughing. The patient currently denied chest pain or pressure. Denies shortness of breath. Denied nausea, vomiting. He states he does much better appetite today, but prior to coming to the hospital, his appetite had decreased. Denied dizziness, lightheadedness. 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 He also had a AK in 2006 and 2007. He has past surgery history of bowel resection, cholecystectomy, coronary artery disease graft, heart catheterization and multiple stents, hernia repair and replacement. He has had multiple hospitalizations for pneumonia and sepsis in the past. Chest x-ray shows some interstitial changes with infiltrates on the right more than on the left. No heart failure immediately. Laboratory initially showed white count of 11.5 and hemoglobin of 8. While in the hospital on the , he was feeling much better, but he did sleep very much and his CPAP machine he had a problem with because that was set to 10 and usually set at 7. This was reset for him and hopefully he will be much more comfortable. His increased AST went from 65-454 and also he had an increase in ALT of 89-270. This gentleman has a pancreatic mass with 2 new lesions on the liver that has been MRI at multiple times over the last several years. Dr. Nielsen is following him accordingly. We received his old records and he is to have another MRI of the pancreas in the area of the liver here shortly after discharge. On the he was coughing and still short of breath. On the I made rounds with my nurse practitioner, Sis Garcia and he slept well and tolerated the CPAP, but then from the day before he had noticed he had he had some shortness of breath. He was given IV Lasix and he responded. The chest x- ray did show some possible fluid overload. LABORATORY: At this time, laboratory shows a WBC of 5.7. He has a hemoglobin of 8.6. His sugars have been stable on insulin to scale. His AST is down to 233 and ALT is 169. We did reactive CMV IgG IgM and also repeated hepatitis A, B, and C. They are all negative. His urine was negative. On repeat on the coagulations are stable. He has been given a unit of blood. His hemoglobin went from 7, now he is up to 8.6. REVIEW OF SYSTEMS: Eyes: He is feeling better. Seeing well. ENT: Has a dry mouth, a lot of postnasal drip. Neck is no problem swallowing except he has kind of a dry irritated voice when talking. Respiratory: He has not been coughing and shortness of breath is much improved. Heart no palpitations. No chest pain. Abdomen: He says he is having nausea, vomiting, diarrhea. No hematemesis, melena, hematochezia. : He is urinating fine. PSYCHIATRIC: He is in a good mood. There is no depression or anxiety. Allergy: Though he said he has had a lot of postnasal drip and rhinorrhea. PHYSICAL EXAMINATION: At this time, blood pressure is 129/67, heart rate is 60, respiratory rate is 16, pulse rate 86, O2 is at 2 L and we were able to keep his oxygen right around 97. Eyes pupils are equal, round, react to light accommodation. ENT showed tympanic membranes and pharynx to be negative, with a lot of postnasal drip and also some rhinorrhea. NECK: Supple. No carotid bruits. Chest today is actually clear bilaterally. Heart is sinus rhythm with no murmur. ABDOMEN: Soft, nontender with no organomegaly. Lower extremities look well with minimal amount of swelling, +1 both the right and the left. No evidence of open lesions. No new decubitus in the bottom of his buttocks or ischial prominence. Decreased pulses in both lower extremities. Again psychiatric no depression. No anxiety. Skin he has got some blotching of skin bilaterally and very dry elbows. Upper extremities: Arthritis of his hands and his elbows with decreased range of motion, which has been correction. ASSESSMENT: 1. Right lower lobe pneumonia, gram positive history of MRSA, previous. New sputum just showing Radha type, urinary tract positive Radha, sepsis present on admission probably secondary to pneumonia and recent hospitalization for sepsis pneumonia discharge date 09/2017, but he was on a 10 day regimen of vancomycin of which he did not finish before returning. 2. Proximal atrial fib. The patient is on Eliquis, now in sinus rhythm. 3. Coronary artery disease with previous coronary artery grafting and previous stent. 4. Type 2 diabetes. 5. Multiple previous hospitalizations for pneumonia and sepsis. 6. Chronic obstructive pulmonary disease. 7. Sleep apnea on CPAP. 8. Some chronic systolic congestive heart failure with EF of 35-50. 9. Microcytic hypochromic anemia. Still the etiology is unclear. Did have a colonoscopy 04/02 became weak, was not able to have it. 10.He does have a history of iron deficiency anemia, but is having a very hard time tolerating iron, 1 unit of RBCs were transfused. 11.Chronic adrenal insufficiency on Cortef. 12.Previous cellulitis with MRSA, history of MRSA pneumonia. 13.Hyperlipidemia. 14.Hypertension. 15.Hypothyroid disease. 16.Obesity with a BMI of 34.1. 17.Transaminitis with the etiology being unclear, could probably be secondary to hypotension, but it is resolving. PLAN: We will continue with the same antibiotics. Dr. Hardin appreciate his recommendation and input. At this point, he is on vancomycin and Levaquin. We increased the Lasix, now back on 20 mg a day. There is some questionable use of metformin in the future because even though rare, it has been shown to either due to toxicity or and metformin related lactic acidosis. Home O2 is in the works. Monitor labs. GI prophylaxis with Protonix 20, Eliquis 5 twice a day for DVT prevention, though he is using it for his atrial fibrillation. For his acute allergic rhinitis, I am going to add Claritin today. Chest x-ray in the morning with the possibility of home soon. MMODL / IJN: [id number] /
[2018-05-03 11:05] LABS: Glucose,Whole Blood 189 mg/dL (75-99)
[2018-05-03] MEDS: LORATADINE 10 MG TAB PO SCH (11:14)
--- NOTE | 2018-05-03 11:53 | P.PN ---
Subjective Progress Note Date: 05/03/18 Principal diagnosis: Shortness of breath Progress note dated 05/01/2018 This is a 57-year-old male with a history of sepsis, related to right lower lobe pneumonia. The patient presented with fever cough phlegm production and lactic acidemia. The patient had a recent hospitalization for bilateral pneumonia and sepsis and he was discharged on April 16 of this year. Subsequent to that, the patient received IV vancomycin as an outpatient for MRSA. The patient also has a history of sleep apnea syndrome, currently on CPAP hypertension, hyperlipidemia, hypothyroidism, diabetes, and peripheral neuropathy. The patient also has a history of GERD parapneumonic effusion CAD with bypass grafting Caio MRSA infection of the right hand and chronic elevations of his liver function. Currently, the patient is doing much better. Much more awake and alert. Feeling much better. Apparently he states he is getting a chest x-ray. Labs today, show a white count of 4.5, a hemoglobin of 7.8, hematocrit of 27.4 and a normal platelet count. In addition, electrolytes are normal with a BUN of 25 and a creatinine of 1.25. Blood urine and sputum sampling essentially negative. Progress note dated 05/03/2018 57-year-old male with a diagnosis of sepsis and right lower lobe pneumonia. More recently, chest x-ray reveals evidence of heart failure. The patient is currently receiving antibiotics per infectious disease. Clinically he is doing much better. He apparently is going to stay in the hospital until Saturday. The patient recently was in with bilateral pneumonia and sepsis and discharge in April 16. Subsequent to that, he received IV vancomycin as an outpatient for MRSA pneumonia. He has a history of sleep apnea syndrome hypertension hyperlipidemia hypothyroidism diabetes and peripheral neuropathy. The patient also has a history of GERD previous history of parapneumonic effusion CAD with bypass grafting and chronic elevations of his liver function test. The patient initially was very lethargic and sleepy. He is doing much better. Sitting at the bedside, doing a crossword puzzle. Nasal O2 in place. He appears to be in no distress. Most recent chest x-ray shows some mild fluid overload. He denies any chest pain or chest discomfort. Is having only minimal shortness of breath. Objective - Vital Signs Vital signs: Vital Signs Temp 97.9 F 05/03/18 05:22 Pulse 84 05/03/18 11:16 Resp 16 05/03/18 08:00 BP 129/67 05/03/18 05:22 Pulse Ox 97 05/03/18 05:22 Intake & Output 05/02/18 05/03/18 05/03/18 18:59 06:59 18:59 Intake Total 400 1710 960 Output Total 800 2250 Balance -400 -540 960 Weight 103 kg 102.8 kg Intake: Intake, IV Titration 750 Amount Sodium Chloride 0.9% 1, 500 000 ml @ 50 mls/hr IV . Q20H [facility] Rx#:[id number] Vancomycin 1,500 mg In 250 Sodium Chloride 0.9% 250 ml @ 125 mls/hr IVPB Q24H [facility] Rx#:[id number] Oral 400 960 960 Output: Urine 800 2250 Other: Voiding Method Urinal Urinal Urinal # Voids 2 425 - Exam No acute distress, oriented 3. Nasal O2 in place. HEENT examination is grossly unremarkable. Mucous membranes are moist. No oral lesions. Neck supple. Full range of motion. No adenopathy thyromegaly or neck vein distention. Cardiovascular examination reveals regular rhythm rate. S1-S2 normal. No S3 or S4. No discernible murmur noted. Lungs reveal a few scattered crackles. Breath sounds equal bilaterally but diminished throughout. Some mild rhonchorous breath sounds are noted. No wheezes. Breath sounds equal bilaterally. Abdomen soft bowel sounds are heard. No masses or tenderness. Extremities are intact. Minimal lower extremity edema is noted. No cyanosis or clubbing. Skin is without rash or lesion. Neurologic examination is brief but nonfocal. - Labs CBC & Chem 7: 05/03/18 07:19 05/03/18 07:19 Labs: Abnormal Lab Results - Last 24 Hours (Table) 05/02/18 05/02/18 05/03/18 Range/Units 16:42 20:16 07:19 RBC 4.18 L (4.30-5.90) m/uL Hgb 8.6 L (13.0-17.5) gm/dL Hct 30.2 L (39.0-53.0) % MCV 72.3 L (80.0-100.0) fL MCH 20.6 L (25.0-35.0) pg MCHC 28.5 L (31.0-37.0) g/dL RDW 19.7 H (11.5-15.5) % Lymphocytes # 0.6 L (1.0-4.8) k/uL Carbon Dioxide (22-30) mmol/L BUN (9-20) mg/dL POC Glucose (mg/dL) 170 H 157 H (75-99) mg/dL Calcium (8.4-10.2) mg/dL AST (17-59) U/L ALT (21-72) U/L Alkaline Phosphatase (38-126) U/L Total Protein (6.3-8.2) g/dL Albumin (3.5-5.0) g/dL 05/03/18 05/03/18 Range/Units 07:19 11:03 RBC (4.30-5.90) m/uL Hgb (13.0-17.5) gm/dL Hct (39.0-53.0) % MCV (80.0-100.0) fL MCH (25.0-35.0) pg MCHC (31.0-37.0) g/dL RDW (11.5-15.5) % Lymphocytes # (1.0-4.8) k/uL Carbon Dioxide 32 H (22-30) mmol/L BUN 21 H (9-20) mg/dL POC Glucose (mg/dL) 189 H (75-99) mg/dL Calcium 8.0 L (8.4-10.2) mg/dL AST 190 H (17-59) U/L ALT 233 H (21-72) U/L Alkaline Phosphatase 169 H (38-126) U/L Total Protein 6.2 L (6.3-8.2) g/dL Albumin 2.7 L (3.5-5.0) g/dL Microbiology - Last 24 Hours (Table) 04/30/18 19:55 Gram Stain - Final Sputum Sputum Culture - Final Radha albicans 04/29/18 00:01 Blood Culture - Preliminary Blood No Growth after 96 hours Assessment and Plan Assessment: Assessment Sepsis, likely related to right lower lobe pneumonia Mild CHF by chest x-ray. Recent hospitalization for bilateral pneumonia and sepsis, secondary to MRSA infection, treated with vancomycin IV Sleep apnea syndrome, currently on CPAP History of hypertension History of hyperlipidemia Hypothyroidism Diabetes mellitus type 2 Peripheral neuropathy GERD Previous episode of pneumonia with parapneumonic effusion, with chest tube drainage CAD, status post bypass grafting Previous MRSA infection of the right hand Plan: Plan dated 05/01/2018 We'll continue with antibiotics and ID service recommendations updrafts, etc. The patient should have a follow-up chest x-ray. I believe that's been ordered by the primary service. Clinically, the patient looks well. Much improved. He is much more awake and alert and not having any respiratory difficulty at all. He denies any chest tightness wheezing cough chest congestion shortness of breath or significant phlegm production. No fever or chills. No nausea vomiting or diarrhea. Plan dated 05/03/2018 The patient's most recent chest x-ray reveals some evidence of heart failure. Clinically the patient is doing much better. Antibiotics are per infectious disease. The patient's white count is 5.7 hemoglobin 8.6 and hematocrit 30.2. Platelet count is normal. Electrolytes look normal save for the bicarbonate concentration which is 32. BUN and creatinine were 21 and 1.20. Recent chest x -rays reviewed. Microbiologic studies are all still pretty much negative. Medications are reviewed. His pulmonary status is very stable and we will see the patient as needed. Time with Patient: Less than 30
[2018-05-03 16:49] LABS: Glucose,Whole Blood 176 mg/dL (75-99)
[2018-05-03 20:00] LABS: Glucose,Whole Blood 219 mg/dL (75-99)
[2018-05-03 20:33] LABS: Glucose,Whole Blood 98 mg/dL (75-99)
[2018-05-03] MEDS: ATORVASTATIN 80 MG TAB PO SCH (21:06)
[2018-05-03] MEDS: amLODIPine 5 MG TAB PO SCH (21:06)
[2018-05-03] MEDS: VANCOMYCIN 1,500 MG in SODIUM CHLORIDE 0.9% 250 ML IVPB SCH (21:06)
[2018-05-03] MEDS: LEVOTHYROXINE 50 MCG TAB PO SCH (21:07)
[2018-05-03] MEDS: MONTELUKAST 10 MG TAB PO SCH (21:07)
[2018-05-04 05:50] VITALS: RESP 16
[2018-05-04] MEDS: IPRATROPIUM-ALBUTEROL 3 ML NEB INHALATION SCH ×4 (06:52→18:47)
[2018-05-04 06:54] LABS: Glucose,Whole Blood 105 mg/dL (75-99)
[2018-05-04 07:10] LABS: Anisocytosis Slight; Basophils % (A) 0 %; Eosinophils # (A) 0.2 k/uL (0-0.7); Eosinophils % (A) 3 %; HCT 29.2 % (39.0-53.0); HGB 8.3 gm/dL (13.0-17.5); Hypochromasia Marked; Lymphocytes # (A) 0.6 k/uL (1.0-4.8); Lymphocytes % (A) 11 %; MCH 20.4 pg (25.0-35.0); MCHC 28.4 g/dL (31.0-37.0); MCV 71.9 fL (80.0-100.0); Mean Platelet Volume 7.2; Microcytosis Marked; Monocytes # (A) 0.6 k/uL (0-1.0); Monocytes % (A) 12 %; Neutrophils # (A) 3.5 k/uL (1.3-7.7); Neutrophils % (A) 70 %; Platelet Count 252 k/uL (150-450); Poikilocytosis Moderate; RBC 4.06 m/uL (4.30-5.90); RDW 19.8 % (11.5-15.5)
[2018-05-04] MEDS: INSULIN ASPART 100 UNIT/ML 1 ML 10 ML VIAL SQ SCH ×4 (07:13→21:22)
[2018-05-04 07:24] LABS: Albumin 2.6 g/dL (3.5-5.0); Potassium 3.3 mmol/L (3.5-5.1); Total Bilirubin 0.7 mg/dL (0.2-1.3); Total Protein 5.9 g/dL (6.3-8.2)
[2018-05-04] MEDS: LORATADINE 10 MG TAB PO SCH (08:07)
[2018-05-04] MEDS: HYDROCORTISONE 20 MG TAB PO SCH (08:07)
[2018-05-04] MEDS: FUROSEMIDE 20 MG TAB PO SCH (08:07)
[2018-05-04] MEDS: METOPROLOL TARTRATE 25 MG TAB PO SCH ×2 (08:07→21:22)
[2018-05-04] MEDS: PANTOPRAZOLE 40 MG TABLET PO SCH (08:07)
[2018-05-04] MEDS: APIXABAN 5 MG TAB PO SCH ×2 (08:07→21:22)
[2018-05-04] MEDS: LISINOPRIL 5 MG TAB PO SCH (08:07)
[2018-05-04] MEDS: LEVOFLOXACIN 750 MG TAB PO SCH (08:07)
[2018-05-04] MEDS: DULoxetine HCL 30 MG CAPSULE.DR PO SCH ×2 (08:07→21:22)
[2018-05-04] MEDS: GABAPENTIN 400 MG CAP PO SCH ×4 (08:08→21:21)
[2018-05-04] MEDS: INSULIN DETEMIR 100 UNIT/ML 10 ML VIAL SQ SCH ×2 (08:08→21:23)
[2018-05-04] MEDS: CLOTRIMAZOLE/BETAMETH 1-0.05% CREAM 45 GM TUBE TOPICAL SCH ×2 (08:08→21:22)
[2018-05-04] MEDS: HYDROcodone/APAP 10-325MG 1 EACH TAB PO PRN ×3 (08:14→19:25)
--- NOTE | 2018-05-04 09:12 | XR ---
EXAMINATION TYPE: XR chest 2V DATE OF EXAM: 05/04/2018 HISTORY: followup pneumonia and chf. REFERENCE: Previous study dated 05/02/2018. FINDINGS: There has been a midline sternotomy. The heart is mildly enlarged. There is left basilar airspace disease and a small left effusion. Pulmo nary vasculature has improved. I suspect small, bilateral effusions. IMPRESSION: 1. CARDIOMEGALY. 2. IMPROVED VASCULAR CONGESTION. 3. LEFT BASILAR AIRSPACE DISEASE. 4. SMALL, BILATERAL EFFUSIONS.
[2018-05-04 11:14] LABS: Glucose,Whole Blood 202 mg/dL (75-99)
[2018-05-04] MEDS ORDERED: MAGNESIUM HYDROXIDE 2,400 MG/10 ML CUP PO PRN ×2 (11:45)
[2018-05-04] MEDS: POTASSIUM CHLORIDE ER 20 MEQ TAB.ER PO SCH (13:13)
--- NOTE | 2018-05-04 13:18 | PN ---
PROGRESS NOTE DATE OF SERVICE: 05/04/2018. HISTORY: The patient is doing much better, much less shortness of breath. Chest x-ray was reviewed this morning which showed resolution of his fluid overload/mild heart failure/pulmonary congestion and there is still noted infiltrate in his left lower lung, which the right one has improved. The patient had been on vancomycin for infectious process before admission. He has been continued on vancomycin, also the use of Levaquin at this period of time. PAST MEDICAL HISTORY: Has been very significant, please refer to previous progress note. LABS: Today show a stable hemoglobin of 8.6 with a 3.3 potassium and his AST and ALT have decreased to 131 and 169 respectively. Creatinine stable stable at 1.8. REVIEW OF SYSTEMS: HEENT: He is seeing well. ENT shows a lot of postnasal drip with minimal amount of cough. NECK: He has no problem swallowing. RESPIRATORY: No cough. No shortness of breath. HEART/CARDIAC: No chest pain, no palpitations, no orthopnea, no paroxysmal nocturnal dyspnea. He is using his sleep apnea machine from home set at 7 cm of water. ABDOMEN: He is having minimal abdominal pain. Has not had a bowel movement in 6 days. PSYCHIATRIC: Negative depression, negative anxiety. ALLERGIES: Stuffy nose, hoarse voice from the postnasal drip. MUSCULOSKELETAL: He does have some swelling in his lower legs. VASCULAR: He has had decreased pulses in the past. His feet stay warm. He has had no fevers, chills, sweats. PHYSICAL EXAMINATION: Today, blood pressure is 138/80, heart rate is in the 80s, respiratory rate is 16, temperature is 97.8. His oxygen is 2 L nasal cannula. Micro positive for Radha albicans, both in the urine and sputum. EYES: Pupils are equal, round, react to light accommodation. ENT showed tympanic membranes and pharynx to be negative. NECK: Supple with a midline trachea. CHEST: Essentially clear to auscultation today. HEART: Sinus rhythm. ABDOMEN: Soft, nontender with no organomegaly. Does have some stool palpated into the sigmoid and descending colon on abdominal examination. EXTREMITIES: Lower extremities, arthritis of the upper extremities, arthritis of the hands and elbows with decreased range of motion. Decreased pulses in the lower extremities with some blotching of the skin. Very dry elbows. PSYCHIATRIC: No evidence of depression or anxiety. NECK: Supple. No carotid bruits. ALLERGIES: Postnasal drip and stuffy nose. ASSESSMENT: 1. Right and left lower lobe pneumonia. Previous history of methicillin-resistant staphylococcus aureus. Sputum showing Radha albicans as is urine Radha. Infectious Disease, at this point, has decided not to treat, which I agree. 2. Probable lactic acidosis, probably secondary to sepsis versus pneumonia with maybe complication with metformin. 3. Paroxysmal atrial fibrillation, on Eliquis, in sinus rhythm. Coronary artery disease with previous coronary artery grafting with stent placement. 4. Type 2 diabetes, insulin support. 5. Previous hospitalizations for sepsis. 6. Chronic obstructive pulmonary disease. 7. Sleep apnea, on CPAP. 8. Some chronic systolic congestive heart failure with the ejection fraction of 35. 9. Recent mild congestive heart failure/fluid overload, which is resolved with Lasix. 10.Microcytic hypochromic anemia, still etiologies unclear. We have a colonoscopy that was canceled, but we will go forward with it in the future. Obviously chronic iron deficiency anemia. He did receive 1 unit of transfusion while in the hospital. 11.Chronic adrenal insufficiency, on Cortef. 12.Previous cellulitis with MRSA, history of MRSA pneumonia,. 13.Hyperlipidemia. 14.Hypertension. 15.Hypothyroidism. 16.Obesity, BMI 34. 17.Transaminitis, which is now resolving. PLAN: At this period of time, he was given 60 mL of milk of magnesia for bowel movement aggressiveness. He has just had his oral Levaquin, but tonight will have vancomycin. He does have some hypokalemia of 3.3, so we added potassium of 20. We will keep him off his metformin at this period of time. The plan is later this afternoon, if everything is stable, he will be discharged home with all his medication. In addition will be 20 mg of K-Dur to what he is taking now. He will finish his last 6 doses of vancomycin IV, which he has at home, and he will be on Levaquin 500 mg and then follow me at home. The patient's prognosis at this time is guarded, but he is stable and doing well. MMODL / IJN: [id number] /
[2018-05-04 16:47] LABS: Glucose,Whole Blood 201 mg/dL (75-99)
[2018-05-04] MEDS ORDERED: VANCOMYCIN TROUGH DUE 1 EACH MISC MISCELLANE ONE (20:00)
[2018-05-04 20:13] LABS: Glucose,Whole Blood 151 mg/dL (75-99)
[2018-05-04] MEDS: VANCOMYCIN 1,500 MG in SODIUM CHLORIDE 0.9% 250 ML IVPB SCH (21:21)
[2018-05-04] MEDS: ATORVASTATIN 80 MG TAB PO SCH (21:22)
[2018-05-04] MEDS: amLODIPine 5 MG TAB PO SCH (21:22)
[2018-05-04] MEDS: MONTELUKAST 10 MG TAB PO SCH (21:22)
[2018-05-04] MEDS: LEVOTHYROXINE 50 MCG TAB PO SCH (21:22)
[2018-05-05] MEDS: HYDROcodone/APAP 10-325MG 1 EACH TAB PO PRN ×2 (03:50→08:55)
[2018-05-05 06:14] VITALS: BP 140/85; TEMP 97.1
[2018-05-05 06:52] LABS: Glucose,Whole Blood 68 mg/dL (75-99)
[2018-05-05 07:23] LABS: Glucose,Whole Blood 82 mg/dL (75-99)
[2018-05-05] MEDS: INSULIN ASPART 100 UNIT/ML 1 ML 10 ML VIAL SQ SCH ×2 (07:25→12:23)
[2018-05-05] MEDS: INSULIN DETEMIR 100 UNIT/ML 10 ML VIAL SQ SCH (08:43)
[2018-05-05] MEDS: POTASSIUM CHLORIDE ER 20 MEQ TAB.ER PO SCH (08:45)
[2018-05-05] MEDS: APIXABAN 5 MG TAB PO SCH (08:45)
[2018-05-05] MEDS: PANTOPRAZOLE 40 MG TABLET PO SCH (08:45)
[2018-05-05] MEDS: HYDROCORTISONE 20 MG TAB PO SCH (08:46)
[2018-05-05] MEDS: GABAPENTIN 400 MG CAP PO SCH ×2 (08:46→12:23)
[2018-05-05] MEDS: FUROSEMIDE 20 MG TAB PO SCH (08:46)
[2018-05-05] MEDS: DULoxetine HCL 30 MG CAPSULE.DR PO SCH (08:46)
[2018-05-05] MEDS: LEVOFLOXACIN 750 MG TAB PO SCH (08:46)
[2018-05-05] MEDS: LISINOPRIL 5 MG TAB PO SCH (08:47)
[2018-05-05] MEDS: METOPROLOL TARTRATE 25 MG TAB PO SCH (08:47)
[2018-05-05] MEDS: LORATADINE 10 MG TAB PO SCH (08:47)
[2018-05-05] MEDS: CLOTRIMAZOLE/BETAMETH 1-0.05% CREAM 45 GM TUBE TOPICAL SCH (08:50)
[2018-05-05] MEDS: IPRATROPIUM-ALBUTEROL 3 ML NEB INHALATION SCH ×2 (09:25→13:17)
[2018-05-05 11:04] VITALS: BMI 34.7
[2018-05-05 11:15] LABS: Glucose,Whole Blood 165 mg/dL (75-99)
--- NOTE | 2018-05-05 12:59 | P.DS ---
Providers Date of admission: 04/29/18 02:30 Expected date of discharge: 05/05/18 Attending physician: Bautista Romero Consults: 04/29/18 02:29 Consult Physician Routine Consulting Provider: Bran Hardin Consult Reason/Comments: pneumonia. Outpatient treatment failure Do you want consulting provider notified?: Yes 04/29/18 08:21 Consult Physician Routine Consulting Provider: Malik Soto Reason/Comments: pneumonia Do you want consulting provider notified?: Yes Primary care physician: Bautista Romero Hospital Course: 57-year-old male who presented to the emergency room with a chief complaint of fever and generalized malaise. The patient was recently admitted from 04/08/2018 until 04/16/2018 secondary to sepsis and pneumonia. The patient had a PICC line placed at that time and he was discharged home on a 10 day course of vancomycin. The patient states he was doing well at home and was feeling relatively well until yesterday evening. Patient's spouse is at the bedside who states he had a low-grade temperature of 99.0 yesterday evening. She states that she gave him ibuprofen but his temperature continued to increase. She brought the patient to the emergency room for further evaluation. He does report coughing. The patient currently denies chest pain or pressure. Denies shortness of breath. Denies nausea or vomiting. He states he does not have much of an appetite today but prior to coming to the hospital his appetite has been good and he has been eating well at home. Denies dizziness or lightheadedness. 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 He has also had a myocardial infarction 2006 and 2007. His past surgical history includes bowel resection, cholecystectomy, coronary artery bypass graft, heart catheterization with multiple stents, hernia repair, and joint replacements. He has had multiple hospitalizations for pneumonia and sepsis. Chest x-ray: Interstitial pulmonary infiltrates on the right side more than the left. No heart failure. There is pleural reaction at the right lung base. Right lung appears worse than last exam. This is consistent with inflammatory disease. Laboratory data on admission reveals white count of 11.4. Hemoglobin 8.0. Platelet count 389. INR 1.4. Sodium 139. Potassium 4.0. Chloride 97. BUN 27. Creatinine 1.10. Glucose 169. AST 65. ALT 98. Albumin 3.1. Initial lactic acid was 2.6 which then increased to 3.9. The patient has been receiving IV fluids and his most recent lactic acid is 2.0. Urinalysis reveals: 1+ proteinuria, 2+ bilirubin, rare mucus. The patient was started on IV antibiotics in the form of Vanco, Levaquin, and Zosyn. He was admitted to the hospital under the care of Dr. Romero. The patient's LFTs were mildly elevated upon admission, which continued to increase over the next following days. However they are now trending downward. Records were obtained from Dr. Boo office. Patient was last seen in their office in August 2017. According to Dr. Mcgrath's dictation patient has a history of pancreatic tail neuroendocrine tumor. Surgical options were discussed with patient, although Dr. Mcgrath did mention patient was not a great surgical candidate. The patient and his decided against surgical intervention. The patient had a CT scan in 08/2017 of his abdomen and pelvis which revealed several small geographic areas of hypodensity in the subcapsular region of both liver lobes, with overlying mild capsular retraction. These areas are larger and new from prior exam. Dr. Mcgrath recommended 6 month follow up with octreoscan to make determination of liver issue. Patient does report he has an appointment scheduled soon for this imaging but is unsure of the exact date. Patient did require 1 unit of packed RBCs for hemoglobin of 7.0. Most recent hemoglobin is 8.3. Stool for occult blood was negative. Blood cultures are negative at 144 hours. Urine culture is positive for Jumana. Sputum culture is positive for Jumana albicans. Infectious disease has been on consult and followed throughout hospitalization. No treatment was recommended for jumana. Patient has a PICC line to left arm which Dr. Hardin would like left in at the time of discharge until he is evaluated at his follow- up appointment. The patient did have some fluid overload during hospitalization. He did receive IV Lasix and was then restarted on his home dose of Lasix. He became hypokalemic. He was started on a potassium supplement daily. The patient's condition has stabilized and he was deemed stable for discharge home today per Dr. Romero. He will be discharged home with home oxygen. The patient will be discharged home on Levaquin 750mg daily for 7 days as recommended by infectious disease. His PICC line will remain in place until he is evaluated by Dr. Hardin on an outpatient basis. DISCHARGE DIAGNOSIS: Right lower lobe pneumonia, present on admission, unspecified organism, culture positive for jumana Sepsis, present on admission, may be secondary to pneumonia, resolved at discharge Recent hospitalization for sepsis and pneumonia, discharged 04/16/2018 on 10 day regimen of Vancomycin Paroxysmal atrial fibrillation, maintained on long-term anticoagulation with Eliquis Coronary artery disease with previous coronary artery bypass grafting and previous stent placement Diabetes mellitus type II Multiple previous hospital admissions for pneumonia and sepsis Obstructive sleep apnea, questionable compliance with CPAP Acute exacerbation of systolic congestive heart failure, EF 35-40%, resolved Microcytic hypochromic anemia, etiology unclear, patient was to have colonoscopy 03/2018 but unable to have procedure due to fevers and weakness. Patient does have hx of iron deficiency anemia but unable to tolerate iron supplements, s/p 1 unit RBC transfusion Chronic adrenal insufficiency, maintained on Cortef Previous cellulitis with MRSA History of MRSA pneumonia Hyperlipidemia Osteoarthritis Hypothyroidism Obesity: BMI 34.1 Transaminitis, etiology unclear, may be medication induced, secondary to hypoperfusion, or related to pancreatic mass, however less likely, patient to follow up outpatient with domenic Theodore Nurse practitioner note has been reviewed by physician. Signing provider agrees with the documented findings, assessment, and plan of care. Patient Condition at Discharge: Stable Plan - Discharge Summary Discharge Rx Participant: No New Discharge Prescriptions: New Clotrimazole/Betameth Cream [Lotrisone] 1 applic TOPICAL BID #1 applic Loratadine [Claritin] 10 mg PO DAILY #30 tab Potassium Chloride ER [K-Dur 20] 20 meq PO DAILY #30 tab Levofloxacin [Levaquin] 750 mg PO DAILY #7 tab Continue Levothyroxine Sodium [Synthroid] 50 mcg PO HS Omeprazole [PriLOSEC] 20 mg PO BID Nitroglycerin Sl Tabs [Nitrostat] 0.4 mg SUBLINGUAL Q5M PRN PRN Reason: Chest Pain Furosemide [Lasix] 20 mg PO DAILY amLODIPine [Norvasc] 5 mg PO HS Gabapentin [Neurontin] 800 mg PO QID fentaNYL 25MCG/HR PATCH [Duragesic 25MCG/HR] 1 patch TRANSDERM Q72H HYDROcodone/APAP 10-325MG [[place] 10-325] 1 tab PO Q4HR PRN PRN Reason: Pain Montelukast [Singulair] 10 mg PO HS #30 tab Insulin Aspart [NovoLOG Flexpen] See Protocol SQ ACHS Multivit-Min/FA/Lycopen/Lutein [Centrum Silver Tablet] 1 tab PO DAILY@1200 DULoxetine HCL [Cymbalta] 30 mg PO BID Insulin Glargine [Lantus] 26 unit SQ BID Etodolac [Lodine] 400 mg PO BID Atorvastatin [Lipitor] 80 mg PO HS Apixaban [Eliquis] 5 mg PO BID #60 tab Metoprolol Tartrate [Lopressor] 25 mg PO BID #60 tab Lisinopril [Zestril] 5 mg PO QAM Hydrocortisone [Cortef] 20 mg PO QAM Discontinued metFORMIN HCL 1,000 mg PO BID Discharge Medication List Levothyroxine Sodium [Synthroid] 50 mcg PO HS 02/01/14 [History] Nitroglycerin Sl Tabs [Nitrostat] 0.4 mg SUBLINGUAL Q5M PRN 02/01/14 [History] Omeprazole [PriLOSEC] 20 mg PO BID 02/01/14 [History] Furosemide [Lasix] 20 mg PO DAILY 05/13/15 [History] Gabapentin [Neurontin] 800 mg PO QID 05/13/15 [History] amLODIPine [Norvasc] 5 mg PO HS 05/13/15 [History] HYDROcodone/APAP 10-325MG [[place] 10-325] 1 tab PO Q4HR PRN 07/17/16 [History] fentaNYL 25MCG/HR PATCH [Duragesic 25MCG/HR] 1 patch TRANSDERM Q72H 07/17/16 [ History] Montelukast [Singulair] 10 mg PO HS #30 tab 11/21/16 [Rx] Insulin Aspart [NovoLOG Flexpen] See Protocol SQ ACHS 02/10/17 [History] Multivit-Min/FA/Lycopen/Lutein [Centrum Silver Tablet] 1 tab PO DAILY@1200 02/10 [History] DULoxetine HCL [Cymbalta] 30 mg PO BID 09/25/17 [History] Etodolac [Lodine] 400 mg PO BID 09/25/17 [History] Insulin Glargine [Lantus] 26 unit SQ BID 09/25/17 [History] Atorvastatin [Lipitor] 80 mg PO HS 02/05/18 [History] Apixaban [Eliquis] 5 mg PO BID #60 tab 02/13/18 [Rx] Metoprolol Tartrate [Lopressor] 25 mg PO BID #60 tab 02/13/18 [Rx] Hydrocortisone [Cortef] 20 mg PO QAM 04/07/18 [History] Lisinopril [Zestril] 5 mg PO QAM 04/07/18 [History] Clotrimazole/Betameth Cream [Lotrisone] 1 applic TOPICAL BID #1 applic 05/05/18 [Rx] Levofloxacin [Levaquin] 750 mg PO DAILY #7 tab 05/05/18 [Rx] Loratadine [Claritin] 10 mg PO DAILY #30 tab 05/05/18 [Rx] Potassium Chloride ER [K-Dur 20] 20 meq PO DAILY #30 tab 05/05/18 [Rx] Follow up Appointment(s)/Referral(s): Bran Hardin MD [STAFF PHYSICIAN] - 1 Week (patient to call office tomorrow to schedule appt.) Malik Soto DO [Doctor of Osteopathic Medicine] - 2 Weeks (office is closed for lunch.patient will have to call and schedule own appt,) Bautista Romero MD [Primary Care Provider] - 05/12/18 2:30 pm Patient Instructions/Handouts: Using Oxygen at Home (DC), Bacterial Pneumonia ( DC) Activity/Diet/Wound Care/Special Instructions: [facility] - Dr. Hardin would like PICC line left in at this time until he follows up in the office Discharge Disposition: HOME WITH HOME HEALTH SERVICES
[2018-05-05 13:21] VITALS: PULSE 64
[2018-05-06 17:48] LABS: Histoplasma Abs by ID None Detected (None Detected)
== END 2018-05-05 15:08 | disposition home health service (06) | DRG 871 ==
LOC: EC 23:10 → 5MS5E 04-29 02:30
PROVIDERS: ADMIT Family Medicine; ATTEND Family Medicine
PROC: 5A09557 Assistance with Respiratory Ventilation, Greater than 96 Consecutive Hours, Continuous Positive Airway Pressure (ICD-10-PCS; principal; 2018-04-29)
PROC: 30243N1 Transfusion of Nonautologous Red Blood Cells into Central Vein, Percutaneous Approach (ICD-10-PCS; 2018-04-30)
DX: A41.9 Sepsis, unspecified organism (principal); J15.6 Pneumonia due to other Gram-negative bacteria; B37.1 Pulmonary candidiasis; I50.23 Acute on chronic systolic (congestive) heart failure; J96.21 Acute and chronic respiratory failure with hypoxia; E27.40 Unspecified adrenocortical insufficiency; E87.2 Acidosis; J44.0 Chronic obstructive pulmonary disease with (acute) lower respiratory infection; J90 Pleural effusion, not elsewhere classified; E11.42 Type 2 diabetes mellitus with diabetic polyneuropathy; I11.0 Hypertensive heart disease with heart failure; I48.0 Paroxysmal atrial fibrillation; E87.6 Hypokalemia; G47.33 Obstructive sleep apnea (adult) (pediatric); I25.10 Atherosclerotic heart disease of native coronary artery without angina pectoris; K21.9 Gastro-esophageal reflux disease without esophagitis; M19.042 Primary osteoarthritis, left hand; M19.041 Primary osteoarthritis, right hand; M19.022 Primary osteoarthritis, left elbow; M19.021 Primary osteoarthritis, right elbow; E78.5 Hyperlipidemia, unspecified; D50.9 Iron deficiency anemia, unspecified; E03.9 Hypothyroidism, unspecified; D3A.8 Other benign neuroendocrine tumors; L40.9 Psoriasis, unspecified; M10.9 Gout, unspecified; G89.29 Other chronic pain; M48.061 Spinal stenosis, lumbar region without neurogenic claudication; H93.13 Tinnitus, bilateral; I25.2 Old myocardial infarction; R74.0 Nonspecific elevation of levels of transaminase and lactic acid dehydrogenase [LDH]; E66.9 Obesity, unspecified; Z68.34 Body mass index [BMI] 34.0-34.9, adult; Z79.01 Long term (current) use of anticoagulants; Z79.4 Long term (current) use of insulin; Z79.890 Hormone replacement therapy; Z79.891 Long term (current) use of opiate analgesic; Z79.52 Long term (current) use of systemic steroids; Z79.899 Other long term (current) drug therapy; Z87.01 Personal history of pneumonia (recurrent); Z85.828 Personal history of other malignant neoplasm of skin; Z86.14 Personal history of Methicillin resistant Staphylococcus aureus infection; Z90.49 Acquired absence of other specified parts of digestive tract; Z95.1 Presence of aortocoronary bypass graft; Z95.5 Presence of coronary angioplasty implant and graft; Z86.19 Personal history of other infectious and parasitic diseases; Z87.19 Personal history of other diseases of the digestive system; Z96.641 Presence of right artificial hip joint; Z87.891 Personal history of nicotine dependence; Z88.5 Allergy status to narcotic agent; Z88.8 Allergy status to other drugs, medicaments and biological substances; Z83.3 Family history of diabetes mellitus; Z80.3 Family history of malignant neoplasm of breast; Z82.61 Family history of arthritis; Z83.79 Family history of other diseases of the digestive system; Z83.6 Family history of other diseases of the respiratory system; Z82.49 Family history of ischemic heart disease and other diseases of the circulatory system; Z80.1 Family history of malignant neoplasm of trachea, bronchus and lung
CPT/HCPCS: 36415; 71046; 80053; 80074; 80202; 81001; 82150; 82272; 82728; 83036; 83540; 83550; 83605; 83690; 85025; 85045; 85610; 85652; 85730; 86644; 86645; 86698; 86850; 86900; 86901; 86920; 87040; 87070; 87086; 87205; 87385; 93005; 94640; 94660; 94760; 96361; 96374; 99285

== ENCOUNTER 2018-05-12 10:53 | Inpatient (IN) | payer MEDICARE ==
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
[2018-05-12] MEDS ORDERED: SODIUM CHLORIDE 0.9% 1,000 ML IV STA ×2 (11:38→12:41)
[2018-05-12 11:53] LABS: Appearance,Urine Clear (Clear); Bilirubin,Urine 2+ (Negative); Blood,Urine Negative (Negative); Color,Urine Yellow; Glucose,Urine (UA) Negative (Negative); Ketones,Urine Negative (Negative); Leukocyte Esterase,Urine Trace (Negative); Nitrite,Urine Negative (Negative); Protein,Urine 1+ (Negative); RBC,Urine 1 /hpf (0-5); Specific Gravity,Urine 1.019 (1.001-1.035); Squamous Epithelial Cell,Urine 1 /hpf (0-4); Urobilinogen,Urine <2.0 mg/dL (<2.0); WBC,Urine 3 /hpf (0-5)
[2018-05-12 11:59] LABS: Albumin 2.9 g/dL (3.5-5.0); Calcium 8.3 mg/dL (8.4-10.2); Potassium 4.1 mmol/L (3.5-5.1); Total Bilirubin 0.9 mg/dL (0.2-1.3); Total Protein 6.2 g/dL (6.3-8.2)
[2018-05-12 12:21] LABS: Anisocytosis Slight; Basophils # (A) 0.1 k/uL (0-0.2); Basophils % (A) 0 %; Eosinophils # (A) 0.3 k/uL (0-0.7); Eosinophils % (A) 2 %; HGB 8.3 gm/dL (13.0-17.5); Hypochromasia Marked; Lymphocytes # (A) 0.7 k/uL (1.0-4.8); Lymphocytes % (A) 4 %; MCH 20.4 pg (25.0-35.0); MCHC 27.6 g/dL (31.0-37.0); MCV 73.9 fL (80.0-100.0); Mean Platelet Volume 6.3; Microcytosis Moderate; Monocytes # (A) 1.1 k/uL (0-1.0); Monocytes % (A) 6 %; Neutrophils # (A) 15.1 k/uL (1.3-7.7); Neutrophils % (A) 87 %; Platelet Count 290 k/uL (150-450); Poikilocytosis Slight; RBC 4.06 m/uL (4.30-5.90); RDW 19.4 % (11.5-15.5); WBC 17.5 k/uL (3.8-10.6)
--- NOTE | 2018-05-12 12:39 | XR ---
EXAMINATION TYPE: XR chest 2V DATE OF EXAM: 05/12/2018 COMPARISON: May 04, 2018 HISTORY: Shortness of breath TECHNIQUE: Frontal and lateral views of the chest are obtained. FINDINGS: Scattered senescent parenchymal changes noted. Hyperinflation compatible with COPD. Patchy right infrahilar infiltrate may reflect a pneumonia. Correlate clinically progress studies may be of value. Heart size is stable. Mediastinal structures are stable and grossly unremarkable. No evidence for hilar prominence. Degenerative changes dorsal spine. IMPRESSION: 1. Patchy right infrahilar infiltrate may reflect a pneumonia. Correlate clinically progress studies may be of value.
[2018-05-12] MEDS ORDERED: PNEUMONIA PROTOCOL UTILIZED 1 EACH MISC PO PRN (12:46)
[2018-05-12] MEDS: PIPERACILLIN-TAZOBACTAM 3.375 GM in DEXTROSE/WATER 1 50ML.BAG IVPB SCH (14:16)
[2018-05-12] MEDS ORDERED: NITROGLYCERIN SL TABS 0.4 MG TAB SUBLINGUAL PRN (14:38)
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
[2018-05-12] MEDS: SODIUM CHLORIDE 0.9% 1,000 ML IV SCH (15:48)
[2018-05-12] MEDS: HYDROcodone/APAP 10-325MG 1 EACH TAB PO PRN ×2 (17:23→22:22)
[2018-05-12] MEDS: GABAPENTIN 400 MG CAP PO SCH ×2 (17:23→22:21)
[2018-05-12 17:36] LABS: Glucose,Whole Blood 88 mg/dL (75-99)
[2018-05-12] MEDS: INSULIN ASPART 100 UNIT/ML 1 ML 10 ML VIAL SQ SCH ×2 (17:57→22:24)
[2018-05-12] MEDS ORDERED: LORazepam 1 MG TAB PO PRN (17:57)
[2018-05-12] MEDS: ALBUTEROL NEBULIZED 2.5 MG/3 ML INHALATION PRN (20:18)
[2018-05-12] MEDS ORDERED: INSULIN DETEMIR 100 UNIT/ML 10 ML VIAL SQ SCH (21:00)
[2018-05-12 21:05] LABS: Glucose,Whole Blood 122 mg/dL (75-99)
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
[2018-05-12] MEDS: ETODOLAC 400 MG TAB PO SCH (22:21)
[2018-05-12] MEDS: APIXABAN 5 MG TAB PO SCH (22:22)
[2018-05-12] MEDS: DULoxetine HCL 30 MG CAPSULE.DR PO SCH (22:22)
[2018-05-12] MEDS: LEVOTHYROXINE 50 MCG TAB PO SCH (22:22)
[2018-05-12] MEDS: INSULIN DETEMIR 100 UNIT/ML 10 ML VIAL SQ SCH (22:22)
[2018-05-12] MEDS: CLOTRIMAZOLE/BETAMETH 1-0.05% CREAM 45 GM TUBE TOPICAL SCH (22:25)
[2018-05-12] MEDS: MONTELUKAST 10 MG TAB PO SCH (22:26)
[2018-05-13] MEDS: PIPERACILLIN-TAZOBACTAM 3.375 GM in DEXTROSE/WATER 1 50ML.BAG IVPB SCH ×3 (01:12→16:31)
[2018-05-13] MEDS: SODIUM CHLORIDE 0.9% 1,000 ML IV SCH ×2 (04:20→16:31)
[2018-05-13 05:56] LABS: Hemoglobin A1C 6.9 % (4.0-6.0)
[2018-05-13] MEDS: HYDROcodone/APAP 10-325MG 1 EACH TAB PO PRN ×2 (06:34→16:13)
[2018-05-13 07:32] LABS: Glucose,Whole Blood 83 mg/dL (75-99)
[2018-05-13] MEDS: INSULIN ASPART 100 UNIT/ML 1 ML 10 ML VIAL SQ SCH ×4 (07:39→21:44)
[2018-05-13] MEDS: ALBUTEROL NEBULIZED 2.5 MG/3 ML INHALATION PRN ×4 (08:22→19:31)
[2018-05-13] MEDS: LEVOFLOXACIN 750MG-D5W PMX 750 MG in DEXTROSE/WATER 1 150ML.BAG IVPB SCH (08:26)
[2018-05-13 08:27] LABS: Anisocytosis Slight; HCT 26.1 % (39.0-53.0); HGB 7.4 gm/dL (13.0-17.5); Hypochromasia Marked; MCH 21.3 pg (25.0-35.0); MCHC 28.3 g/dL (31.0-37.0); MCV 75.4 fL (80.0-100.0); Mean Platelet Volume 7.8; Microcytosis Moderate; Platelet Count 241 k/uL (150-450); Poikilocytosis Slight; RBC 3.47 m/uL (4.30-5.90); RDW 19.4 % (11.5-15.5); WBC 10.4 k/uL (3.8-10.6)
[2018-05-13] MEDS: APIXABAN 5 MG TAB PO SCH (08:27)
[2018-05-13] MEDS: HYDROCORTISONE 20 MG TAB PO SCH (08:29)
[2018-05-13] MEDS: DULoxetine HCL 30 MG CAPSULE.DR PO SCH ×2 (08:29→20:29)
[2018-05-13] MEDS: ETODOLAC 400 MG TAB PO SCH ×2 (08:29→20:29)
[2018-05-13] MEDS: GABAPENTIN 400 MG CAP PO SCH ×4 (08:29→21:44)
[2018-05-13] MEDS: LORATADINE 10 MG TAB PO SCH (08:30)
[2018-05-13] MEDS: CLOTRIMAZOLE/BETAMETH 1-0.05% CREAM 45 GM TUBE TOPICAL SCH ×2 (08:33→21:47)
[2018-05-13] MEDS: INSULIN DETEMIR 100 UNIT/ML 10 ML VIAL SQ SCH ×2 (08:36→21:45)
[2018-05-13 08:49] LABS: Albumin 2.5 g/dL (3.5-5.0); Potassium 4.7 mmol/L (3.5-5.1); Total Bilirubin 0.8 mg/dL (0.2-1.3); Total Protein 5.5 g/dL (6.3-8.2)
--- NOTE | 2018-05-13 09:02 | P.PN ---
Subjective Progress Note Date: 05/13/18 57-year-old male who presented to the emergency room with a chief complaint of increasing cough and fever. The patient was just hospitalized from 04/29/2018 until 05/05/2018 for right lower lobe pneumonia. The patient was seen by infectious disease and pulmonary at that time. He was discharged home on a 7 day course of Levaquin per infectious disease recommendations. The patient also had a previous hospital admission from 04/08/2018 until 04/16/2018 secondary to pneumonia and sepsis. The patient had a PICC line placed at that time and was discharged home on vancomycin. The patient states he was doing well at home after discharge. He reports last April he came to the emergency room for a fever of 100.0. His had given him motrin and he was afebrile when they arrived to the hospital so they decided not to be evaluated and returned home. Patient was afebrile since that time until yesterday evening when he developed a fever of 102F. He also reports increased coughing that started yesterday evening. He reports sputum production and states sometimes it is brownish and sometimes it is clear. He denies shortness of breath. He reports using home oxygen 2L NC at home. He checks his pulse ox and states it is always over 92% while wearing oxygen. Denies chest pain or pressure. Denies nausea or vomiting. Denies dizziness or lightheadedness. Denies change in bowel habits. Denies constipation or diarrhea. Reports good appetite. Denies unintentional weight loss. 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 He has also had a myocardial infarction 2006 and 2007. His past surgical history includes bowel resection, cholecystectomy, coronary artery bypass graft, heart catheterization with multiple stents, hernia repair, and joint replacements. He has had multiple hospitalizations for pneumonia and sepsis. The patients LFTs were elevated during previous hospitalization, but were trending downward. His LFTs this admission are elevated. Records were obtained from Dr. Boo office during last hospitalization. Patient was last seen in their office in August 2017. According to Dr. Mcgrath's dictation patient has a history of pancreatic tail neuroendocrine tumor. Surgical options were discussed with patient, although Dr. Mcgrath did mention patient was not a great surgical candidate. The patient and his decided against surgical intervention. The patient had a CT scan in 08/2017 of his abdomen and pelvis which revealed several small geographic areas of hypodensity in the subcapsular region of both liver lobes, with overlying mild capsular retraction. These areas are larger and new from prior exam. Dr. Mcgrath recommended 6 month follow up with octreoscan to make determination of liver issue. The patient was supposed to have this imaging completed this month but was hospitalized at that time. Patient has not scheduled an appointment to have testing completed. Chest xray: Patchy right infrahilar infiltrates which may reflect a pneumonia. Laboratory data on admission reveals white count of 17.5. Hemoglobin 8.3. Platelet count 290. Neutrophils 15.1. Sodium 143. Potassium 4.1. BUN 34. Creatinine 1.35. AST 201. ALT 126. Lactic acid 2.1. The patient did receive 2 L of normal saline boluses in the emergency room. Urinalysis reveals 1+ proteinuria, 2+ bilirubin, trace leukocyte esterase The patient was admitted to the hospital under the care of Dr. Romero. Consultations were placed to pulmonary and infectious disease. 05/13/2018 Patient seen and examined at the bedside with Dr. Romero. No family present. Patient is awake and alert. Patient reports he slept well last night and wore hospital bipap. Patients to bring his machine from home today per patient. He continues to have a productive cough. Sputum culture is pending. He denies shortness of breath. Denies chest pain or pressure. Patient has been afebrile. Labs from this morning are currently pending. Objective - Vital Signs Vital signs: Vital Signs Temp 96.9 F L 05/13/18 05:49 Pulse 69 05/13/18 05:49 Resp 18 05/13/18 05:49 BP 104/66 05/13/18 05:49 Pulse Ox 95 05/13/18 05:49 Intake & Output 05/12/18 05/13/1818 18:59 06:59 18:59 Intake Total 100 Balance 100 Weight 92.986 kg Intake: Oral 100 Other: Voiding Method Urinal # Voids 1 # Bowel Movements 1 - Exam GENERAL: This is a 57-year-old male in no apparent distress at the time of examination. Pleasant and cooperative. HEENT: Head is atraumatic, normocephalic. Pupils are equal, round, and reactive to light. Sclerae anicteric. Conjunctivae are clear. Mucus membranes of the mouth are moist. Neck is supple. RESPIRATORY: Scattered rhonchi. No wheezing auscultated today. No use of accessory muscles. Patient maintaining oxygen saturation greater than 92% on 2L. No chest wall tenderness is noted on palpation or with deep breathing. CARDIOVASCULAR: Regular rate and rhythm. S1 and S2 noted. No systolic or diastolic murmur auscultated. No JVD noted. No S3 or S4 noted. GASTROINTESTINAL: No distention noted. Abdomen soft and round. Normal active bowel sounds auscultated x 4 quadrants. No pain or tenderness noted upon palpation. INTEGUMENTARY: No cyanosis. No jaundice. No rashes noted. No cellulitis noted. EXTREMITIES: 1+ peripheral pulses. 2+ bilateral ankle edema, improving from yesterday. No calf tenderness noted. NEUROLOGIC: Cranial nerves II-XII intact. PSYCHIATRIC: Awake, alert, and oriented X 3. Appropriate affect. Intact judgement and insight. - Labs CBC & Chem 7: 05/13/18 07:53 05/13/18 07:53 Labs: Abnormal Lab Results - Last 24 Hours (Table) 05/12/18 05/12/18 05/12/18 Range/Units 11:25 11:25 11:25 WBC 17.5 H (3.8-10.6) k/uL RBC 4.06 L (4.30-5.90) m/uL Hgb 8.3 L (13.0-17.5) gm/dL Hct 30.0 L (39.0-53.0) % MCV 73.9 L (80.0-100.0) fL MCH 20.4 L (25.0-35.0) pg MCHC 27.6 L (31.0-37.0) g/dL RDW 19.4 H (11.5-15.5) % Neutrophils # 15.1 H (1.3-7.7) k/uL Lymphocytes # 0.7 L (1.0-4.8) k/uL Monocytes # 1.1 H (0-1.0) k/uL Carbon Dioxide 32 H (22-30) mmol/L BUN 34 H (9-20) mg/dL Creatinine 1.35 H (0.66-1.25) mg/dL POC Glucose (mg/dL) (75-99) mg/dL Hemoglobin A1c (4.0-6.0) % Plasma Lactic Acid Freddy 2.1 H* (0.7-2.0) mmol/L Calcium 8.3 L (8.4-10.2) mg/dL AST 201 H (17-59) U/L ALT 126 H (21-72) U/L Total Protein 6.2 L (6.3-8.2) g/dL Albumin 2.9 L (3.5-5.0) g/dL Urine Protein (Negative) Urine Bilirubin (Negative) Ur Leukocyte Esterase (Negative) 05/12/18 05/12/18 05/12/18 Range/Units 11:25 11:25 21:00 WBC (3.8-10.6) k/uL RBC (4.30-5.90) m/uL Hgb (13.0-17.5) gm/dL Hct (39.0-53.0) % MCV (80.0-100.0) fL MCH (25.0-35.0) pg MCHC (31.0-37.0) g/dL RDW (11.5-15.5) % Neutrophils # (1.3-7.7) k/uL Lymphocytes # (1.0-4.8) k/uL Monocytes # (0-1.0) k/uL Carbon Dioxide (22-30) mmol/L BUN (9-20) mg/dL Creatinine (0.66-1.25) mg/dL POC Glucose (mg/dL) 122 H (75-99) mg/dL Hemoglobin A1c 6.9 H (4.0-6.0) % Plasma Lactic Acid Freddy (0.7-2.0) mmol/L Calcium (8.4-10.2) mg/dL AST (17-59) U/L ALT (21-72) U/L Total Protein (6.3-8.2) g/dL Albumin (3.5-5.0) g/dL Urine Protein 1+ H (Negative) Urine Bilirubin 2+ H (Negative) Ur Leukocyte Esterase Trace H (Negative) Microbiology - Last 24 Hours (Table) 05/12/18 22:46 Sputum Culture - Preliminary Sputum Assessment and Plan Plan: ASSESSMENT: Right infrahilar pneumonia, suspect hospital-acquired, sputum culture pending Recent hospitalization for right lower lobe pneumonia 04/29/2018-05/05/2018, discharged home on 7 day course of Levaquin Recent hospitalization for sepsis and pneumonia, discharged 04/16/2018 on 10 day regimen of Vancomycin Paroxysmal atrial fibrillation, maintained on long-term anticoagulation with Eliquis Coronary artery disease with previous coronary artery bypass grafting and previous stent placement Diabetes mellitus type II Multiple previous hospital admissions for pneumonia and sepsis Obstructive sleep apnea, Patient reports compliance with CPAP Chronic systolic congestive heart failure, EF 35-40% Microcytic hypochromic anemia, etiology unclear, patient was to have colonoscopy 03/2018 but unable to have procedure due to fevers and weakness. 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 Mcgrath, patient declined surgical intervention Transaminitis, etiology unclear, may be secondary to pancreatic tail neuroendocrine tumor and/or several areas of hypodensity in subcapsular region of both liver lobes, patient follows outpatient with Dr. Mcgrath Chronic adrenal insufficiency, maintained on Cortef Previous cellulitis with MRSA History of MRSA pneumonia Hyperlipidemia Osteoarthritis Hypothyroidism Obesity: BMI 34.1 PLAN: Infectious disease on consult. Appreciate recommendations and input Continue antibiotics: Levaquin and Zosyn per ID Await results of sputum culture and blood cultures Pulmonary, Dr. Morton, on consult. Await further recommendations and input Patient may benefit from bronchoscopy this admission due to numerous readmissions for pneumonia and sepsis Dr. Salas on consult to evaluate patient as patient has been unable to make appointments with Dr. [place]grath [place] secondary to be being readmitted to the hospital. Await further recommendations and input Continue IV fluids. Decrease rate to 40cc/hr Will restart patients home dose of lasix Hold antihypertensive medications at this time Continue novolog sliding scale. Decrease Levemir to 10 units BID. Will make adjustments as needed to insulin regimen. Elevate bilateral LE on pillows Home meds as appropriate Monitor labs GI prophylaxis: Protonix 40 mg PO Daily DVT prophylaxis: Eliquis Monitor vital signs and address as appropriate Discharge planning: Patient to return home when stable Further recommendations pending patient's course Nurse practitioner note has been reviewed by physician. Signing provider agrees with the documented findings, assessment, and plan of care.
[2018-05-13 09:23] LABS: Eosinophils # (M) 0.73 k/uL (0-0.7); Lymphocytes # (M) 0.83 k/uL (1.0-4.8); Monocytes # (M) 1.04 k/uL (0-1.0); Neutrophils % (M) 75 %; Nucleated Red Blood Cells 0 /100 WBC (0-0); Total Cells Counted 100
[2018-05-13 09:24] LABS: Ovalocytes Present; Poikilocytosis (M) Present; Polychromasia Present
[2018-05-13] MEDS: FUROSEMIDE 20 MG TAB PO SCH (09:38)
[2018-05-13 12:08] LABS: Glucose,Whole Blood 74 mg/dL (75-99)
[2018-05-13 15:42] VITALS: BMI 34.1
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
[2018-05-13 17:21] LABS: Glucose,Whole Blood 149 mg/dL (75-99)
[2018-05-13] MEDS: LEVOTHYROXINE 50 MCG TAB PO SCH (20:27)
[2018-05-13] MEDS: MONTELUKAST 10 MG TAB PO SCH (20:31)
[2018-05-13 21:10] LABS: Glucose,Whole Blood 205 mg/dL (75-99)
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
[2018-05-14] MEDS: PIPERACILLIN-TAZOBACTAM 3.375 GM in DEXTROSE/WATER 1 50ML.BAG IVPB SCH ×3 (00:01→15:54)
[2018-05-14] MEDS: HYDROcodone/APAP 10-325MG 1 EACH TAB PO PRN ×4 (02:44→18:58)
[2018-05-14 07:08] LABS: Glucose,Whole Blood 102 mg/dL (75-99)
[2018-05-14] MEDS: INSULIN ASPART 100 UNIT/ML 1 ML 10 ML VIAL SQ SCH ×4 (07:52→21:17)
[2018-05-14] MEDS: ZINC OXIDE 20% OINT 28.4 GM TUBE TOPICAL PRN (08:20)
[2018-05-14] MEDS: ALBUTEROL NEBULIZED 2.5 MG/3 ML INHALATION PRN ×4 (08:20→19:47)
[2018-05-14] MEDS: CLOTRIMAZOLE/BETAMETH 1-0.05% CREAM 45 GM TUBE TOPICAL SCH ×2 (08:21→21:17)
[2018-05-14] MEDS: ETODOLAC 400 MG TAB PO SCH ×2 (08:21→20:54)
[2018-05-14] MEDS: DULoxetine HCL 30 MG CAPSULE.DR PO SCH ×2 (08:21→20:55)
[2018-05-14] MEDS: LORATADINE 10 MG TAB PO SCH (08:22)
[2018-05-14] MEDS: HYDROCORTISONE 20 MG TAB PO SCH (08:22)
[2018-05-14] MEDS: GABAPENTIN 400 MG CAP PO SCH ×4 (08:22→21:17)
[2018-05-14] MEDS: FUROSEMIDE 20 MG TAB PO SCH (08:22)
[2018-05-14 08:23] LABS: Anisocytosis Slight; Basophils # (A) 0.1 k/uL (0-0.2); Basophils % (A) 1 %; Eosinophils # (A) 0.3 k/uL (0-0.7); Eosinophils % (A) 4 %; HCT 27.8 % (39.0-53.0); HGB 7.7 gm/dL (13.0-17.5); Hypochromasia Marked; Lymphocytes # (A) 0.6 k/uL (1.0-4.8); Lymphocytes % (A) 8 %; MCH 21.1 pg (25.0-35.0); MCHC 27.6 g/dL (31.0-37.0); MCV 76.2 fL (80.0-100.0); Mean Platelet Volume 6.6; Microcytosis Moderate; Monocytes # (A) 0.5 k/uL (0-1.0); Monocytes % (A) 7 %; Neutrophils # (A) 5.4 k/uL (1.3-7.7); Neutrophils % (A) 77 %; Platelet Count 258 k/uL (150-450); Poikilocytosis Slight; RBC 3.65 m/uL (4.30-5.90); RDW 19.6 % (11.5-15.5)
[2018-05-14 08:53] LABS: Albumin 2.7 g/dL (3.5-5.0); Calcium 8.2 mg/dL (8.4-10.2); Potassium 3.8 mmol/L (3.5-5.1); Total Bilirubin 0.8 mg/dL (0.2-1.3); Total Protein 5.8 g/dL (6.3-8.2)
[2018-05-14] MEDS: INSULIN DETEMIR 100 UNIT/ML 10 ML VIAL SQ SCH (09:57)
[2018-05-14] MEDS: DOCUSATE 100 MG CAP PO SCH (09:57)
--- NOTE | 2018-05-14 10:56 | P.PN ---
Subjective Progress Note Date: 05/14/18 Principal diagnosis: Right lower lobe healthcare associated pneumonia likely mixed bacterial and/or or gram-negative related, sepsis associated above, hemoptysis multifactorial, altered mental status again multifactorial likely related to above, intravascular volume depletion and dehydration, sleep disorder breathing and sleep apnea and, cardiomyopathy with baseline ejection fraction 35%, neuroendocrine tumor of the pancreatic tail, chronic microcytic anemia, elevated liver enzymes 05/14/2018, patient seen eval examined during the rounds cuff congestion shortness of breath still present but severity has improved, anticoagulation is on hold for anticipated bronchoscopy tomorrow noted evaluation and recommendation of GI services, procedure bronchoscopy has been explained to the patient and at length 57-year-old male was seen evaluated examined on fourth floor this patient admitted into the hospital with 2 day history of increasing spiking fever along with cuff congestion shortness of breath patient has been found to have a pneumonia patient does have a very thick purulent sputum production he is on multiple broad-spectrum antibiotics ID service is following, sputum for Gram stain is positive for many gram-negative bacilli final ID hours pending, patient intermittently has noted a few streaks of blood off and on appears to be related to airway inflammation also forceful coughing, admitted x-rays positive patchy right lower lobe infiltrate Review of the data revealed that patient was discharged on May 05 and has been taking oral Levaquin. He states today is day 7 of this medication. Patient states that previously he was on at-home IV vancomycin. Patient reports that last evening and this morning his cough seemed worse. He reports having a temperature of almost [address] His called Dr. Romero and he recommended that patient reported to the emergency department. He denies chest pain or shortness of breath, abdominal pain, nausea or vomiting, diarrhea or constipation, dysuria or hematuria. Objective - Vital Signs Vital signs: Vital Signs Temp 98.0 F 05/14/18 06:37 Pulse 72 05/14/18 08:33 Resp 16 05/14/18 06:37 BP 127/69 05/14/18 06:37 Pulse Ox 92 L 05/14/18 06:37 Intake & Output 05/13/18 05/14/18 05/14/18 18:59 06:59 18:59 Intake Total 480 Output Total 1050 700 Balance -1050 -220 Weight 92.986 kg Intake: Oral 480 Output: Urine 1050 700 Other: Voiding Method Urinal Urinal # Voids 0 1 - Exam General: Awake and alert, well-developed; in no apparent distress. Lying comfortable in ED stretcher with at bedside. HEENT: Head atraumatic, normocephalic. Pupils are equal, round and reactive to light. Extraocular movements intact. Oropharynx moist without erythema or exudate. Neck: Supple. Normal ROM. Cardiovascular: Regular rate and rhythm. No murmurs, rubs or gallops. Chest symmetrical. Respiratory: Normal respiratory effort with no use of accessory muscles. On 2L O2 nasal cannula. Diffuse rales. No rhonchi or wheezes. Abdomen: Soft, non-tender, non-distended. No rigidity, rebound or guarding. Normal bowel sounds in all 4 quadrants. Musculoskeletal: Normal ROM bilateral upper and lower extremities. 3+ pitting edema bilateral lower extremities. Skin: [place], warm and dry. Neurological: Alert and oriented x3. CN II-XII grossly intact. Speech is fluent and answers are appropriate. No focal neuro deficits. Psychiatric: Normal mood and affect. No overt signs of depression or anxiety noted. - Labs CBC & Chem 7: 05/14/18 07:47 05/14/18 07:47 Labs: Abnormal Lab Results - Last 24 Hours (Table) 05/13/18 05/13/18 05/13/18 Range/Units 11:53 17:17 20:58 RBC (4.30-5.90) m/uL Hgb (13.0-17.5) gm/dL Hct (39.0-53.0) % MCV (80.0-100.0) fL MCH (25.0-35.0) pg MCHC (31.0-37.0) g/dL RDW (11.5-15.5) % Lymphocytes # (1.0-4.8) k/uL Carbon Dioxide (22-30) mmol/L BUN (9-20) mg/dL Creatinine (0.66-1.25) mg/dL POC Glucose (mg/dL) 74 L 149 H 205 H (75-99) mg/dL Calcium (8.4-10.2) mg/dL AST (17-59) U/L ALT (21-72) U/L Total Protein (6.3-8.2) g/dL Albumin (3.5-5.0) g/dL 05/14/18 05/14/18 05/14/18 Range/Units 07:05 07:47 07:47 RBC 3.65 L (4.30-5.90) m/uL Hgb 7.7 L (13.0-17.5) gm/dL Hct 27.8 L (39.0-53.0) % MCV 76.2 L (80.0-100.0) fL MCH 21.1 L (25.0-35.0) pg MCHC 27.6 L (31.0-37.0) g/dL RDW 19.6 H (11.5-15.5) % Lymphocytes # 0.6 L (1.0-4.8) k/uL Carbon Dioxide 32 H (22-30) mmol/L BUN 27 H (9-20) mg/dL Creatinine 1.26 H (0.66-1.25) mg/dL POC Glucose (mg/dL) 102 H (75-99) mg/dL Calcium 8.2 L (8.4-10.2) mg/dL AST 248 H (17-59) U/L ALT 162 H (21-72) U/L Total Protein 5.8 L (6.3-8.2) g/dL Albumin 2.7 L (3.5-5.0) g/dL Microbiology - Last 24 Hours (Table) 05/12/18 11:25 Blood Culture - Preliminary Blood No Growth after 24 hours 05/12/18 22:46 Gram Stain - Preliminary Sputum Sputum Culture - Preliminary Assessment and Plan Assessment: Right lower lobe healthcare associated pneumonia likely gram-negative and/or or mixed bacterial Right lower lobe healthcare associated pneumonia with severe sepsis Hemoptysis likely related to airway inflammation and pneumonia Altered mental status related to above Intravascular volume depletion and dehydration improved with fluid resuscitation Severe degree of sleep disorder breathing and sleep apnea Ischemic cardiomyopathy with chronic systolic heart failure baseline ejection fraction of 35% Chronic microcytic and anemia History of neuroendocrine tumor of pancreatic tail Plan: Broad-spectrum antibiotics Gentle fluid resuscitation rehydration BiPAP utilization Anticoagulation for atrial fibrillation Patient would benefit from bronchoscopy will hold Eliquis and is tentatively being scheduled for May 15 Time with Patient: Greater than 30
--- NOTE | 2018-05-14 11:16 | P.PN ---
Subjective Progress Note Date: 05/14/18 57-year-old male who presented to the emergency room with a chief complaint of increasing cough and fever. The patient was just hospitalized from 04/29/2018 until 05/05/2018 for right lower lobe pneumonia. The patient was seen by infectious disease and pulmonary at that time. He was discharged home on a 7 day course of Levaquin per infectious disease recommendations. The patient also had a previous hospital admission from 04/08/2018 until 04/16/2018 secondary to pneumonia and sepsis. The patient had a PICC line placed at that time and was discharged home on vancomycin. The patient states he was doing well at home after discharge. He reports last April he came to the emergency room for a fever of 100.0. His had given him motrin and he was afebrile when they arrived to the hospital so they decided not to be evaluated and returned home. Patient was afebrile since that time until yesterday evening when he developed a fever of 102F. He also reports increased coughing that started yesterday evening. He reports sputum production and states sometimes it is brownish and sometimes it is clear. He denies shortness of breath. He reports using home oxygen 2L NC at home. He checks his pulse ox and states it is always over 92% while wearing oxygen. Denies chest pain or pressure. Denies nausea or vomiting. Denies dizziness or lightheadedness. Denies change in bowel habits. Denies constipation or diarrhea. Reports good appetite. Denies unintentional weight loss. 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 He has also had a myocardial infarction 2006 and 2007. His past surgical history includes bowel resection, cholecystectomy, coronary artery bypass graft, heart catheterization with multiple stents, hernia repair, and joint replacements. He has had multiple hospitalizations for pneumonia and sepsis. The patients LFTs were elevated during previous hospitalization, but were trending downward. His LFTs this admission are elevated. Records were obtained from Dr. Boo office during last hospitalization. Patient was last seen in their office in August 2017. According to Dr. Mcgrath's dictation patient has a history of pancreatic tail neuroendocrine tumor. Surgical options were discussed with patient, although Dr. Mcgrath did mention patient was not a great surgical candidate. The patient and his decided against surgical intervention. The patient had a CT scan in 08/2017 of his abdomen and pelvis which revealed several small geographic areas of hypodensity in the subcapsular region of both liver lobes, with overlying mild capsular retraction. These areas are larger and new from prior exam. Dr. Mcgrath recommended 6 month follow up with octreoscan to make determination of liver issue. The patient was supposed to have this imaging completed this month but was hospitalized at that time. Patient has not scheduled an appointment to have testing completed. Chest xray: Patchy right infrahilar infiltrates which may reflect a pneumonia. Laboratory data on admission reveals white count of 17.5. Hemoglobin 8.3. Platelet count 290. Neutrophils 15.1. Sodium 143. Potassium 4.1. BUN 34. Creatinine 1.35. AST 201. ALT 126. Lactic acid 2.1. The patient did receive 2 L of normal saline boluses in the emergency room. Urinalysis reveals 1+ proteinuria, 2+ bilirubin, trace leukocyte esterase The patient was admitted to the hospital under the care of Dr. Romero. Consultations were placed to pulmonary and infectious disease. 05/13/2018 Patient seen and examined at the bedside with Dr. Romero. No family present. Patient is awake and alert. Patient reports he slept well last night and wore hospital bipap. Patients to bring his machine from home today per patient. He continues to have a productive cough. Sputum culture is pending. He denies shortness of breath. Denies chest pain or pressure. Patient has been afebrile. Labs from this morning are currently pending. 05/14/2018 Patient seen and examined at the bedside. Patient states he is feeling well this morning. Patient does complain of mild constipation. Blood cultures are negative at the 24 hour solange. Sputum culture is in progress. Patient was evaluated by GI who recommends that patient follow up downtown at [facility]. Patient is go undergo bronchoscopy tomorrow with Dr. Morton. NPO after midnight. Eliquis is on hold. Will resume after bronch. Patient does have skin breakdown to bilateral buttocks. Optifoam is in place. Patient to be turned and repositioned q2 hours and PRN. Patient and RN aware. Objective - Vital Signs Vital signs: Vital Signs Temp 98.0 F 05/14/18 06:37 Pulse 72 05/14/18 08:33 Resp 16 05/14/18 06:37 BP 127/69 05/14/18 06:37 Pulse Ox 92 L 05/14/18 06:37 Intake & Output 05/13/18 05/14/18 05/14/18 18:59 06:59 18:59 Intake Total 480 Output Total 1050 700 Balance -1050 -220 Weight 92.986 kg Intake: Oral 480 Output: Urine 1050 700 Other: Voiding Method Urinal Urinal # Voids 0 1 - Exam GENERAL: This is a 57-year-old male in no apparent distress at the time of examination. Pleasant and cooperative. HEENT: Head is atraumatic, normocephalic. Pupils are equal, round, and reactive to light. Sclerae anicteric. Conjunctivae are clear. Mucus membranes of the mouth are moist. Neck is supple. RESPIRATORY: Scattered rhonchi. No wheezing auscultated today. No use of accessory muscles. Patient maintaining oxygen saturation greater than 92% on 2L. No chest wall tenderness is noted on palpation or with deep breathing. CARDIOVASCULAR: Regular rate and rhythm. S1 and S2 noted. No systolic or diastolic murmur auscultated. No JVD noted. No S3 or S4 noted. GASTROINTESTINAL: No distention noted. Abdomen soft and round. Normal active bowel sounds auscultated x 4 quadrants. No pain or tenderness noted upon palpation. INTEGUMENTARY: Skin breakdown noted to bilateral buttocks, stage 2. No cyanosis. No jaundice. No rashes noted. No cellulitis noted. EXTREMITIES: 1+ peripheral pulses. 2+ bilateral ankle edema. No calf tenderness noted. NEUROLOGIC: Cranial nerves II-XII intact. PSYCHIATRIC: Awake, alert, and oriented X 3. Appropriate affect. Intact judgement and insight. - Labs CBC & Chem 7: 05/14/18 07:47 05/14/18 07:47 Labs: Abnormal Lab Results - Last 24 Hours (Table) 05/13/18 05/13/18 05/13/18 Range/Units 11:53 17:17 20:58 RBC (4.30-5.90) m/uL Hgb (13.0-17.5) gm/dL Hct (39.0-53.0) % MCV (80.0-100.0) fL MCH (25.0-35.0) pg MCHC (31.0-37.0) g/dL RDW (11.5-15.5) % Lymphocytes # (1.0-4.8) k/uL Carbon Dioxide (22-30) mmol/L BUN (9-20) mg/dL Creatinine (0.66-1.25) mg/dL POC Glucose (mg/dL) 74 L 149 H 205 H (75-99) mg/dL Calcium (8.4-10.2) mg/dL AST (17-59) U/L ALT (21-72) U/L Total Protein (6.3-8.2) g/dL Albumin (3.5-5.0) g/dL 05/14/18 05/14/18 05/14/18 Range/Units 07:05 07:47 07:47 RBC 3.65 L (4.30-5.90) m/uL Hgb 7.7 L (13.0-17.5) gm/dL Hct 27.8 L (39.0-53.0) % MCV 76.2 L (80.0-100.0) fL MCH 21.1 L (25.0-35.0) pg MCHC 27.6 L (31.0-37.0) g/dL RDW 19.6 H (11.5-15.5) % Lymphocytes # 0.6 L (1.0-4.8) k/uL Carbon Dioxide 32 H (22-30) mmol/L BUN 27 H (9-20) mg/dL Creatinine 1.26 H (0.66-1.25) mg/dL POC Glucose (mg/dL) 102 H (75-99) mg/dL Calcium 8.2 L (8.4-10.2) mg/dL AST 248 H (17-59) U/L ALT 162 H (21-72) U/L Total Protein 5.8 L (6.3-8.2) g/dL Albumin 2.7 L (3.5-5.0) g/dL Microbiology - Last 24 Hours (Table) 05/12/18 11:25 Blood Culture - Preliminary Blood No Growth after 24 hours 05/12/18 22:46 Gram Stain - Preliminary Sputum Sputum Culture - Preliminary Assessment and Plan Plan: ASSESSMENT: Right infrahilar pneumonia, suspect hospital-acquired, sputum culture pending Sepsis, present on admission, secondary to above, improving Recent hospitalization for right lower lobe pneumonia 04/29/2018-05/05/2018, discharged home on 7 day course of Levaquin Recent hospitalization for sepsis and pneumonia, discharged 04/16/2018 on 10 day regimen of Vancomycin Paroxysmal atrial fibrillation, maintained on long-term anticoagulation with Eliquis Coronary artery disease with previous coronary artery bypass grafting and previous stent placement Diabetes mellitus type II Multiple previous hospital admissions for pneumonia and sepsis Obstructive sleep apnea, Patient reports compliance with CPAP Chronic systolic congestive heart failure, EF 35-40% Microcytic hypochromic anemia, etiology unclear, patient was to have colonoscopy 03/2018 but unable to have procedure due to fevers and weakness. 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 Mcgrath, patient declined surgical intervention Transaminitis, etiology unclear, may be secondary to pancreatic tail neuroendocrine tumor and/or several areas of hypodensity in subcapsular region of both liver lobes, patient follows outpatient with Dr. Mcgrath. May be related to antibiotics per Dr. Salas. Chronic adrenal insufficiency, maintained on Cortef Previous cellulitis with MRSA History of MRSA pneumonia Hyperlipidemia Osteoarthritis Hypothyroidism Obesity: BMI 34.1 Stage 2 pressure ulcer of buttocks, present on admission PLAN: Infectious disease on consult. Appreciate recommendations and input Continue antibiotics: Levaquin and Zosyn per ID Await results of sputum culture and blood cultures Pulmonary, Dr. Morton, on consult. Appreciate recommendations and input Patient scheduled for bronchoscopy tomorrow NPO after midnight Hold Eliquis. May resume after bronch Hold Levemir ted Salas on consult to evaluate patient as patient has been unable to make appointments with Dr. Mcgrath downtown secondary to be being readmitted to the hospital. Consult appreciated. Continue to hold antihypertensive medications at this time Optiform dressing to coccyx Turn and reposition patient q2 hours and PRN to offload pressure to buttocks Elevate bilateral LE on pillows Consult PT/OT Home meds as appropriate Monitor labs GI prophylaxis: Protonix 40 mg PO Daily DVT prophylaxis: Eliquis Monitor vital signs and address as appropriate Discharge planning: Patient to return home when stable Further recommendations pending patient's course Nurse practitioner note has been reviewed by physician. Signing provider agrees with the documented findings, assessment, and plan of care.
[2018-05-14 11:42] LABS: Glucose,Whole Blood 255 mg/dL (75-99)
[2018-05-14] MEDS: LEVOFLOXACIN 750MG-D5W PMX 750 MG in DEXTROSE/WATER 1 150ML.BAG IVPB SCH (12:33)
[2018-05-14] MEDS: SODIUM CHLORIDE 0.9% 1,000 ML IV SCH (15:54)
[2018-05-14 17:10] LABS: Glucose,Whole Blood 239 mg/dL (75-99)
[2018-05-14 20:29] LABS: Glucose,Whole Blood 260 mg/dL (75-99)
[2018-05-14] MEDS: MONTELUKAST 10 MG TAB PO SCH (20:55)
[2018-05-14] MEDS: LEVOTHYROXINE 50 MCG TAB PO SCH (20:55)
--- NOTE | 2018-05-14 23:51 | P.PN ---
Subjective Progress Note Date: 05/14/18 Pleasant 57-year-old male with multiple recent hospitalizations presents to Hospital from home with the onset of fever 102 as well as significant worsening of cough and sputum production. He has noted the patient is not hospital approximately a week was treated for right lower lobe pneumonia and had an excellent response to antibiotic therapy with Levaquin. He had a recent bout of sepsis and was treated with vancomycin therapy is PICC line in place that is nontender and has not been bothering him at all. The patient has a known history of underlying pulmonary disease and utilizes BiPAP therapy. If he fails to utilize the BiPAP therapy he develops elevated CO2 levels and CO2 narcosis. Other than the fever and respiratory symptoms he is not having significant other new symptoms at this time. Denies any chills or rigors. Denies abdominal symptoms. No new cellulitis. Joint pains are without acute change. 05/14/2018 patient is doing relatively well. He is feeling slightly better with oxygen therapy respiratory treatments in the ulceration of antibiotics. Sputum culture showing gram-negative bacilli, is likely fail levofloxacin therapy and is responding to Zosyn. We discussed that he may need home IV antibiotic therapy at discharge. Objective - Vital Signs Vital signs: Vital Signs Temp 98.6 F 05/14/18 16:24 Pulse 74 05/14/18 20:00 Resp 20 05/14/18 19:12 BP 125/68 05/14/18 16:24 Pulse Ox 96 05/14/18 16:24 Intake & Output 05/14/18 05/14/18 05/15/18 06:59 18:59 06:59 Intake Total 480 850 500 Output Total 700 650 400 Balance -220 200 100 Intake: Oral 480 850 500 Output: Urine 700 650 400 Other: Voiding Method Urinal Urinal Urinal # Voids 1 1 - Exam Gen: This is a obese 57-year-old male. awake and alert to questions appropriately. He does not appear to be in any respiratory distress. HEENT: Head is atraumatic, normocephalic. Pupils equal, round. Sclerae is anicteric. Oral mucous membranes are very dry. No thrush noted. Patient is edentulous. NECK: Supple. No JVD. No lymphadenopathy. No thyromegaly. LUNGS: Rhonchus diminished bilateral bases. No intercostal retractions. HEART: Regular rate and rhythm. No murmur. ABDOMEN: Soft. Bowel sounds are present. No masses. No tenderness. EXTREMITIES: 1+ pedal edema. Dorsalis pedis is weak bilaterally. PICC line in the left arm is intact that is nontender this erythema or crepitance to the area. NEUROLOGICAL: awake alert and no acute deficits noted. Continues to have weakness but improved from the last day - Labs CBC & Chem 7: 05/14/18 07:47 05/14/18 07:47 Labs: Abnormal Lab Results - Last 24 Hours (Table) 05/14/18 05/14/18 05/14/18 Range/Units 07:05 07:47 07:47 RBC 3.65 L (4.30-5.90) m/uL Hgb 7.7 L (13.0-17.5) gm/dL Hct 27.8 L (39.0-53.0) % MCV 76.2 L (80.0-100.0) fL MCH 21.1 L (25.0-35.0) pg MCHC 27.6 L (31.0-37.0) g/dL RDW 19.6 H (11.5-15.5) % Lymphocytes # 0.6 L (1.0-4.8) k/uL Carbon Dioxide 32 H (22-30) mmol/L BUN 27 H (9-20) mg/dL Creatinine 1.26 H (0.66-1.25) mg/dL POC Glucose (mg/dL) 102 H (75-99) mg/dL Calcium 8.2 L (8.4-10.2) mg/dL AST 248 H (17-59) U/L ALT 162 H (21-72) U/L Total Protein 5.8 L (6.3-8.2) g/dL Albumin 2.7 L (3.5-5.0) g/dL 05/14/18 05/14/18 05/14/18 Range/Units 11:39 16:55 20:22 RBC (4.30-5.90) m/uL Hgb (13.0-17.5) gm/dL Hct (39.0-53.0) % MCV (80.0-100.0) fL MCH (25.0-35.0) pg MCHC (31.0-37.0) g/dL RDW (11.5-15.5) % Lymphocytes # (1.0-4.8) k/uL Carbon Dioxide (22-30) mmol/L BUN (9-20) mg/dL Creatinine (0.66-1.25) mg/dL POC Glucose (mg/dL) 255 H 239 H 260 H (75-99) mg/dL Calcium (8.4-10.2) mg/dL AST (17-59) U/L ALT (21-72) U/L Total Protein (6.3-8.2) g/dL Albumin (3.5-5.0) g/dL Microbiology - Last 24 Hours (Table) 05/12/18 11:25 Blood Culture - Preliminary Blood No Growth after 48 hours 05/12/18 22:46 Gram Stain - Preliminary Sputum Sputum Culture - Preliminary Gram Neg Bacilli Laboratory Results WBC 7.0 k/uL (3.8-10.6) 05/14/18 07:47 RBC 3.65 m/uL (4.30-5.90) L 05/14/18 07:47 Hgb 7.7 gm/dL (13.0-17.5) L 05/14/18 07:47 Hct 27.8 % (39.0-53.0) L 05/14/18 07:47 MCV 76.2 fL (80.0-100.0) L 05/14/18 07:47 MCH 21.1 pg (25.0-35.0) L 05/14/18 07:47 MCHC 27.6 g/dL (31.0-37.0) L 05/14/18 07:47 RDW 19.6 % (11.5-15.5) H 05/14/18 07:47 Plt Count 258 k/uL (150-450) 05/14/18 07:47 Neutrophils % 77 % 05/14/18 07:47 Neutrophils % (Manual) 75 % 05/13/18 07:53 Lymphocytes % 8 % 05/14/18 07:47 Lymphocytes % (Manual) 8 % 05/13/18 07:53 Monocytes % 7 % 05/14/18 07:47 Monocytes % (Manual) 10 % 05/13/18 07:53 Eosinophils % 4 % 05/14/18 07:47 Eosinophils % (Manual) 7 % 05/13/18 07:53 Basophils % 1 % 05/14/18 07:47 Neutrophils # 5.4 k/uL (1.3-7.7) 05/14/18 07:47 Neutrophils # (Manual) 7.80 k/uL (1.3-7.7) H 05/13/18 07:53 Lymphocytes # 0.6 k/uL (1.0-4.8) L 05/14/18 07:47 Lymphocytes # (Manual) 0.83 k/uL (1.0-4.8) L 05/13/18 07:53 Monocytes # 0.5 k/uL (0-1.0) 05/14/18 07:47 Monocytes # (Manual) 1.04 k/uL (0-1.0) H 05/13/18 07:53 Eosinophils # 0.3 k/uL (0-0.7) 05/14/18 07:47 Eosinophils # (Manual) 0.73 k/uL (0-0.7) H 05/13/18 07:53 Basophils # 0.1 k/uL (0-0.2) 05/14/18 07:47 Nucleated RBCs 0 /100 WBC (0-0) 05/13/18 07:53 Manual Slide Review Performed 05/13/18 07:53 Polychromasia Present 05/13/18 07:53 Hypochromasia Marked 05/14/18 07:47 Poikilocytosis Slight 05/14/18 07:47 Poikilocytosis (manual Present 05/13/18 07:53 Anisocytosis Slight 05/14/18 07:47 Microcytosis Moderate 05/14/18 07:47 Ovalocytes Present 05/13/18 07:53 Sodium 143 mmol/L (137-145) 05/14/18 07:47 Potassium 3.8 mmol/L (3.5-5.1) 05/14/18 07:47 Chloride 102 mmol/L (98-107) 05/14/18 07:47 Carbon Dioxide 32 mmol/L (22-30) H 05/14/18 07:47 Anion Gap 9 mmol/L 05/14/18 07:47 BUN 27 mg/dL (9-20) H 05/14/18 07:47 Creatinine 1.26 mg/dL (0.66-1.25) H 05/14/18 07:47 Est GFR (CKD-EPI)AfAm 72 (>60 ml/min/1.73 sqM) 05/14/18 07:47 Est GFR (CKD-EPI)NonAf 62 (>60 ml/min/1.73 sqM) 05/14/18 07:47 Glucose 80 mg/dL (74-99) 05/14/18 07:47 POC Glucose (mg/dL) 260 mg/dL (75-99) H 05/14/18 20:22 POC Glu Table Cover Folder ID Liss Parker 05/14/18 20:[address] Glu mg/dL 151 05/12/18 11:25 Hemoglobin A1c 6.9 % (4.0-6.0) H 05/12/18 11:25 Lactic Ac Sepsis Rflx Y 05/12/18 12:01 Plasma Lactic Acid Freddy 1.4 mmol/L (0.7-2.0) 05/12/18 15:07 Calcium 8.2 mg/dL (8.4-10.2) L 05/14/18 07:47 Total Bilirubin 0.8 mg/dL (0.2-1.3) 05/14/18 07:47 AST 248 U/L (17-59) H 05/14/18 07:47 ALT 162 U/L (21-72) H 05/14/18 07:47 Alkaline Phosphatase 86 U/L (38-126) 05/14/18 07:47 Total Protein 5.8 g/dL (6.3-8.2) L 05/14/18 07:47 Albumin 2.7 g/dL (3.5-5.0) L 05/14/18 07:47 Urine Color Yellow 05/12/18 11:25 Urine Appearance Clear (Clear) 05/12/18 11:25 Urine pH 6.0 (5.0-8.0) 05/12/18 11:25 Ur Specific [place] 1.019 (1.001-1.035) 05/12/18 11:25 Urine Protein 1+ (Negative) H 05/12/18 11:25 Urine Glucose (UA) Negative (Negative) 05/12/18 11:25 Urine Ketones Negative (Negative) 05/12/18 11:25 Urine Blood Negative (Negative) 05/12/18 11:25 Urine Nitrite Negative (Negative) 05/12/18 11:25 Urine Bilirubin 2+ (Negative) H 05/12/18 11:25 Urine Urobilinogen <2.0 mg/dL (<2.0) 05/12/18 11:25 Ur Leukocyte Esterase Trace (Negative) H 05/12/18 11:25 Urine RBC 1 /hpf (0-5) 05/12/18 11:25 Urine WBC 3 /hpf (0-5) 05/12/18 11:25 Ur Squamous Epith Cells 1 /hpf (0-4) 05/12/18 11:25 Microbiology 05/12/18 11:25 Blood Blood Culture - Preliminary No Growth after 48 hours 05/12/18 22:46 Sputum Gram Stain - Preliminary 05/12/18 22:46 Sputum Sputum Culture - Preliminary Gram Neg Bacilli Assessment and Plan (1) Leukocytosis Narrative/Plan: 57-year-old male presents to Hospital with sudden onset of fever, worsening shortness of breath and cough after recent hospital stay. The patient was on his last day of antibiotic therapy with Levaquin when he again developed fever and not feeling well. Medication list has been closely evaluated and patient is not back on metformin which were trying to avoid excessively events causing recurrent lactic acidosis. Antibiotic therapy is with piperacillin tazobactam and Levaquin until we have further data. Cultures are in process. Receiving respiratory treatments and he will receive his BiPAP tonight. 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 He has not had recent evaluation needs to ensure that he has follow-up in care of this complex issue. If he fails to improve rapidly during this stay would also consider transfer to that facility for further review. At this time patient does not appear to have infection at the PICC line site. Cultures are in process. 05/14/2018 patient is slightly improved. His fevers improved and seems to have responded somewhat to the addition of Zosyn to Levaquin. Gram-negative bacilli are seen in his sputum Gram stain and await final cultures to help direct antibiotic therapy potentially home IV antibiotic therapy at discharge. GI workup is in process. The patient does have elevated liver function tests. Prior evaluation included negative hepatitis A, B, and C, negative CMV and EBV titers. Unclear if related to his neuroendocrine tumor. Current Visit: Yes Status: Acute Code(s): D72.829 - ELEVATED WHITE BLOOD CELL COUNT, UNSPECIFIED SNOMED Code(s): 587600475 (2) Healthcare-associated pneumonia Current Visit: Yes Status: Acute Code(s): J18.9 - PNEUMONIA, UNSPECIFIED ORGANISM SNOMED Code(s): 394743387
--- NOTE | 2018-05-14 23:51 | P.PN ---
Subjective Progress Note Date: 05/14/18 Principal diagnosis: Hospital-acquired pneumonia Patient feeling okay today. No nausea or vomiting. He is tolerating his diet. No reports of GI bleeding. Objective - Vital Signs Vital signs: Vital Signs Temp 98.6 F 05/14/18 16:24 Pulse 74 05/14/18 20:00 Resp 20 05/14/18 19:12 BP 125/68 05/14/18 16:24 Pulse Ox 96 05/14/18 16:24 Intake & Output 05/14/18 05/14/18 05/15/18 06:59 18:59 06:59 Intake Total 480 850 500 Output Total 700 650 400 Balance -220 200 100 Intake: Oral 480 850 500 Output: Urine 700 650 400 Other: Voiding Method Urinal Urinal Urinal # Voids 1 1 - Exam On physical examination, patient appears comfortable in no apparent distress. HEAD: Normocephalic, atraumatic. EYES: No scleral icterus. No conjunctival injection. MOUTH: No lesions, tongue midline. NECK: Trachea midline, no gross abnormalities. CHEST: Coarse respiratory sounds in all lung roldan with associated wheezing. HEART: Regular rate and rhythm. ABDOMEN: Soft, obese. Bowel sounds are positive. No organomegaly. No guarding or rigidity. EXTREMITIES: No pedal edema. SKIN: No rashes, no jaundice. NEUROLOGIC: Alert and oriented x3. No focal deficits. - Labs CBC & Chem 7: 05/14/18 07:47 05/14/18 07:47 Labs: Abnormal Lab Results - Last 24 Hours (Table) 05/14/18 05/14/18 05/14/18 Range/Units 07:05 07:47 07:47 RBC 3.65 L (4.30-5.90) m/uL Hgb 7.7 L (13.0-17.5) gm/dL Hct 27.8 L (39.0-53.0) % MCV 76.2 L (80.0-100.0) fL MCH 21.1 L (25.0-35.0) pg MCHC 27.6 L (31.0-37.0) g/dL RDW 19.6 H (11.5-15.5) % Lymphocytes # 0.6 L (1.0-4.8) k/uL Carbon Dioxide 32 H (22-30) mmol/L BUN 27 H (9-20) mg/dL Creatinine 1.26 H (0.66-1.25) mg/dL POC Glucose (mg/dL) 102 H (75-99) mg/dL Calcium 8.2 L (8.4-10.2) mg/dL AST 248 H (17-59) U/L ALT 162 H (21-72) U/L Total Protein 5.8 L (6.3-8.2) g/dL Albumin 2.7 L (3.5-5.0) g/dL 05/14/18 05/14/18 05/14/18 Range/Units 11:39 16:55 20:22 RBC (4.30-5.90) m/uL Hgb (13.0-17.5) gm/dL Hct (39.0-53.0) % MCV (80.0-100.0) fL MCH (25.0-35.0) pg MCHC (31.0-37.0) g/dL RDW (11.5-15.5) % Lymphocytes # (1.0-4.8) k/uL Carbon Dioxide (22-30) mmol/L BUN (9-20) mg/dL Creatinine (0.66-1.25) mg/dL POC Glucose (mg/dL) 255 H 239 H 260 H (75-99) mg/dL Calcium (8.4-10.2) mg/dL AST (17-59) U/L ALT (21-72) U/L Total Protein (6.3-8.2) g/dL Albumin (3.5-5.0) g/dL Microbiology - Last 24 Hours (Table) 05/12/18 11:25 Blood Culture - Preliminary Blood No Growth after 48 hours 05/12/18 22:46 Gram Stain - Preliminary Sputum Sputum Culture - Preliminary Gram Neg Bacilli Assessment and Plan (1) Elevated liver enzymes Narrative/Plan: Unknown etiology, however given the patient's recent antibiotic therapy is likely that the elevation is related to these medications. It is mainly in a hepatocellular pattern. We'll continue to follow. May also be likely to metastatic neuroendocrine tumor with last imaging exam noting focal lesions in the liver which were to be followed up. Current Visit: Yes Status: Acute Code(s): R74.8 - ABNORMAL LEVELS OF OTHER SERUM ENZYMES SNOMED Code(s): 357680378 (2) Primary pancreatic neuroendocrine tumor Narrative/Plan: Pancreatic neuroendocrine tumor in the tail of the pancreas. The patient has been unable to follow up at [facility] due to recurrent hospitalizations. He has not received medical therapy or surgeries in the past. Current Visit: Yes Status: Acute Code(s): D3A.8 - OTHER BENIGN NEUROENDOCRINE TUMORS SNOMED Code(s): 615775650 Plan: Supportive care Okay for diet We'll follow liver enzymes If LFTs continue to rise we'll order a full liver serology, however likely elevation is due to antibiotic therapy Follow up with a PET/CT octreotide scan for evaluation of known pancreatic neuroendocrine tumor and new liver lesions, preferably at [facility] so comparison could be made to prior imaging Case discussed with primary care team, the patient will continue to receive treatment for her pneumonia. The patient requires oncology for treatment of neuroendocrine tumor who be referred to a local provider for treatment. This was relayed to the patient who is in agreement with the treatment plan. We will continue to follow Thank you for allowing us to but despite in the care of this patient
[2018-05-15] MEDS: PIPERACILLIN-TAZOBACTAM 3.375 GM in DEXTROSE/WATER 1 50ML.BAG IVPB SCH ×4 (01:07→23:35)
[2018-05-15] MEDS: ALBUTEROL NEBULIZED 2.5 MG/3 ML INHALATION PRN ×4 (07:03→20:18)
[2018-05-15 07:28] LABS: Glucose,Whole Blood 124 mg/dL (75-99)
[2018-05-15] MEDS: INSULIN ASPART 100 UNIT/ML 1 ML 10 ML VIAL SQ SCH ×4 (07:51→20:44)
[2018-05-15] MEDS: CLOTRIMAZOLE/BETAMETH 1-0.05% CREAM 45 GM TUBE TOPICAL SCH ×2 (08:14→22:07)
[2018-05-15] MEDS: LEVOFLOXACIN 750 MG TAB PO SCH (08:15)
[2018-05-15] MEDS: DULoxetine HCL 30 MG CAPSULE.DR PO SCH ×2 (08:15→21:45)
[2018-05-15] MEDS: GABAPENTIN 400 MG CAP PO SCH ×4 (08:15→21:27)
[2018-05-15] MEDS: HYDROCORTISONE 20 MG TAB PO SCH (08:15)
[2018-05-15] MEDS: LORATADINE 10 MG TAB PO SCH (08:15)
[2018-05-15] MEDS: DOCUSATE 100 MG CAP PO SCH (08:15)
[2018-05-15] MEDS: ETODOLAC 400 MG TAB PO SCH ×2 (08:16→21:45)
[2018-05-15] MEDS: FUROSEMIDE 20 MG TAB PO SCH (08:16)
[2018-05-15] MEDS: HYDROcodone/APAP 10-325MG 1 EACH TAB PO PRN ×3 (08:18→21:27)
[2018-05-15 08:43] LABS: ALT 162 U/L (21-72); AST 172 U/L (17-59); Albumin 2.9 g/dL (3.5-5.0); Alkaline Phosphatase 86 U/L (38-126); Anion Gap 6 mmol/L; Blood Urea Nitrogen 21 mg/dL (9-20); Calcium 8.5 mg/dL (8.4-10.2); Carbon Dioxide 34 mmol/L (22-30); Chloride 104 mmol/L (98-107); Glucose 114 mg/dL (74-99); Sodium 144 mmol/L (137-145); Total Protein 6.4 g/dL (6.3-8.2)
--- NOTE | 2018-05-15 08:52 | P.PN ---
Subjective Progress Note Date: 05/15/18 57-year-old male who presented to the emergency room with a chief complaint of increasing cough and fever. The patient was just hospitalized from 04/29/2018 until 05/05/2018 for right lower lobe pneumonia. The patient was seen by infectious disease and pulmonary at that time. He was discharged home on a 7 day course of Levaquin per infectious disease recommendations. The patient also had a previous hospital admission from 04/08/2018 until 04/16/2018 secondary to pneumonia and sepsis. The patient had a PICC line placed at that time and was discharged home on vancomycin. The patient states he was doing well at home after discharge. He reports last April he came to the emergency room for a fever of 100.0. His had given him motrin and he was afebrile when they arrived to the hospital so they decided not to be evaluated and returned home. Patient was afebrile since that time until yesterday evening when he developed a fever of 102F. He also reports increased coughing that started yesterday evening. He reports sputum production and states sometimes it is brownish and sometimes it is clear. He denies shortness of breath. He reports using home oxygen 2L NC at home. He checks his pulse ox and states it is always over 92% while wearing oxygen. Denies chest pain or pressure. Denies nausea or vomiting. Denies dizziness or lightheadedness. Denies change in bowel habits. Denies constipation or diarrhea. Reports good appetite. Denies unintentional weight loss. 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 He has also had a myocardial infarction 2006 and 2007. His past surgical history includes bowel resection, cholecystectomy, coronary artery bypass graft, heart catheterization with multiple stents, hernia repair, and joint replacements. He has had multiple hospitalizations for pneumonia and sepsis. The patients LFTs were elevated during previous hospitalization, but were trending downward. His LFTs this admission are elevated. Records were obtained from Dr. Boo office during last hospitalization. Patient was last seen in their office in August 2017. According to Dr. Mcgrath's dictation patient has a history of pancreatic tail neuroendocrine tumor. Surgical options were discussed with patient, although Dr. Mcgrath did mention patient was not a great surgical candidate. The patient and his decided against surgical intervention. The patient had a CT scan in 08/2017 of his abdomen and pelvis which revealed several small geographic areas of hypodensity in the subcapsular region of both liver lobes, with overlying mild capsular retraction. These areas are larger and new from prior exam. Dr. Mcgrath recommended 6 month follow up with octreoscan to make determination of liver issue. The patient was supposed to have this imaging completed this month but was hospitalized at that time. Patient has not scheduled an appointment to have testing completed. Chest xray: Patchy right infrahilar infiltrates which may reflect a pneumonia. Laboratory data on admission reveals white count of 17.5. Hemoglobin 8.3. Platelet count 290. Neutrophils 15.1. Sodium 143. Potassium 4.1. BUN 34. Creatinine 1.35. AST 201. ALT 126. Lactic acid 2.1. The patient did receive 2 L of normal saline boluses in the emergency room. Urinalysis reveals 1+ proteinuria, 2+ bilirubin, trace leukocyte esterase The patient was admitted to the hospital under the care of Dr. Romero. Consultations were placed to pulmonary and infectious disease. 05/13/2018 Patient seen and examined at the bedside with Dr. Romero. No family present. Patient is awake and alert. Patient reports he slept well last night and wore hospital bipap. Patients to bring his machine from home today per patient. He continues to have a productive cough. Sputum culture is pending. He denies shortness of breath. Denies chest pain or pressure. Patient has been afebrile. Labs from this morning are currently pending. 05/14/2018 Patient seen and examined at the bedside. Patient states he is feeling well this morning. Patient does complain of mild constipation. Blood cultures are negative at the 24 hour solange. Sputum culture is in progress. Patient was evaluated by GI who recommends that patient follow up downtown at [facility]. Patient is go undergo bronchoscopy tomorrow with Dr. Morton. NPO after midnight. Eliquis is on hold. Will resume after bronch. Patient does have skin breakdown to bilateral buttocks. Optifoam is in place. Patient to be turned and repositioned q2 hours and PRN. Patient and RN aware. 05/15/2018 Patient seen and examined at the bedside. Patient is awake and alert. Sitting on the side of the bed. Patient reports he wore his CPAP throughout the night but did not sleep well. He denies shortness of breath. He continues to have a cough, but states it is no longer productive. He continues to have bilateral LE edema. He is NPO and scheduled for bronch today. Sputum culture is positive for E. coli. Resistant to levaquin but suspectible to Zosyn. Patient does have L PICC in place. Will likely require outpatient IV antibiotics. Lab work from this morning is currently pending. Objective - Vital Signs Vital signs: Vital Signs Temp 97.7 F 05/15/18 07:00 Pulse 84 05/15/18 07:16 Resp 18 05/15/18 07:00 BP 155/85 05/15/18 07:00 Pulse Ox 99 05/15/18 07:00 Intake & Output 05/14/18 05/15/18 05/15/18 18:59 06:59 18:59 Intake Total 850 870 Output Total 650 400 Balance 200 470 Intake: Intake, IV Titration 370 Amount Piperacillin-Tazobactam 3 50 .375 gm In Dextrose/Water 1 50ml.bag @ 12.5 mls/hr IVPB Q8HR [facility] Rx#: [id number] Sodium Chloride 0.9% 1, 320 000 ml @ 40 mls/hr IV . Q24H [facility] Rx#:[id number] Oral 850 500 Output: Urine 650 400 Other: Voiding Method Urinal Urinal # Voids 1 - Exam GENERAL: This is a 57-year-old male in no apparent distress at the time of examination. Pleasant and cooperative. HEENT: Head is atraumatic, normocephalic. Pupils are equal, round, and reactive to light. Sclerae anicteric. Conjunctivae are clear. Mucus membranes of the mouth are moist. Neck is supple. RESPIRATORY: Lung sounds improved today. Fine rales to right lower base. No wheezing or rhonchi noted. No use of accessory muscles. Patient maintaining oxygen saturation greater than 92% on 2L. No chest wall tenderness is noted on palpation or with deep breathing. CARDIOVASCULAR: Regular rate and rhythm. S1 and S2 noted. No systolic or diastolic murmur auscultated. No JVD noted. No S3 or S4 noted. GASTROINTESTINAL: No distention noted. Abdomen soft and round. Normal active bowel sounds auscultated x 4 quadrants. No pain or tenderness noted upon palpation. INTEGUMENTARY: Skin breakdown noted to bilateral buttocks, stage 2, optiform dressing in place. No cyanosis. No jaundice. No rashes noted. No cellulitis noted. EXTREMITIES: 1+ peripheral pulses. 2-3+ bilateral ankle edema. No calf tenderness noted. NEUROLOGIC: Cranial nerves II-XII intact. PSYCHIATRIC: Awake, alert, and oriented X 3. Appropriate affect. Intact judgement and insight. - Labs CBC & Chem 7: 05/14/18 07:47 05/15/18 07:58 Labs: Abnormal Lab Results - Last 24 Hours (Table) 05/14/18 05/14/18 05/14/18 Range/Units 07:47 11:39 16:55 Carbon Dioxide 32 H (22-30) mmol/L BUN 27 H (9-20) mg/dL Creatinine 1.26 H (0.66-1.25) mg/dL POC Glucose (mg/dL) 255 H 239 H (75-99) mg/dL Calcium 8.2 L (8.4-10.2) mg/dL AST 248 H (17-59) U/L ALT 162 H (21-72) U/L Total Protein 5.8 L (6.3-8.2) g/dL Albumin 2.7 L (3.5-5.0) g/dL 05/14/18 05/15/18 Range/Units 20:22 07:25 Carbon Dioxide (22-30) mmol/L BUN (9-20) mg/dL Creatinine (0.66-1.25) mg/dL POC Glucose (mg/dL) 260 H 124 H (75-99) mg/dL Calcium (8.4-10.2) mg/dL AST (17-59) U/L ALT (21-72) U/L Total Protein (6.3-8.2) g/dL Albumin (3.5-5.0) g/dL Microbiology - Last 24 Hours (Table) 05/12/18 22:46 Gram Stain - Final Sputum Sputum Culture - Final Escherichia coli 05/12/18 11:25 Blood Culture - Preliminary Blood No Growth after 48 hours Assessment and Plan Plan: ASSESSMENT: Right infrahilar pneumonia, suspect hospital-acquired, sputum culture positive for E. coli Sepsis, present on admission, secondary to above, improving Recent hospitalization for right lower lobe pneumonia 04/29/2018-05/05/2018, discharged home on 7 day course of Levaquin Recent hospitalization for sepsis and pneumonia, discharged 04/16/2018 on 10 day regimen of Vancomycin Paroxysmal atrial fibrillation, maintained on long-term anticoagulation with Eliquis Coronary artery disease with previous coronary artery bypass grafting and previous stent placement Diabetes mellitus type II Multiple previous hospital admissions for pneumonia and sepsis Obstructive sleep apnea, Patient reports compliance with CPAP Chronic systolic congestive heart failure, EF 35-40% Microcytic hypochromic anemia, etiology unclear, patient was to have colonoscopy 03/2018 but unable to have procedure due to fevers and weakness. 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 Mcgrath, patient declined surgical intervention Transaminitis, etiology unclear, may be secondary to pancreatic tail neuroendocrine tumor and/or several areas of hypodensity in subcapsular region of both liver lobes, patient follows outpatient with Dr. Mcgrath. May be related to antibiotics per Dr. Salas. Chronic adrenal insufficiency, maintained on Cortef Previous cellulitis with MRSA History of MRSA pneumonia Hyperlipidemia Osteoarthritis Hypothyroidism Obesity: BMI 34.1 Stage 2 pressure ulcer of buttocks, present on admission PLAN: Infectious disease on consult. Appreciate recommendations and input Continue antibiotics: Levaquin and Zosyn per ID Pulmonary, Dr. Morton, on consult. Appreciate recommendations and input Patient scheduled for bronchoscopy today NPO until after bronch Resume Eliquis and Levemir tonight after bronch Dr. Salas on consult to evaluate patient as patient has been unable to make appointments with Dr. Mcgrath downtown secondary to be being readmitted to the hospital. Consult appreciated. Optiform dressing to coccyx Turn and reposition patient q2 hours and PRN to offload pressure to buttocks Elevate bilateral LE on pillows PT/OT Home meds as appropriate Monitor labs GI prophylaxis: Protonix 40 mg PO Daily DVT prophylaxis: Eliquis Monitor vital signs and address as appropriate Discharge planning: PT recommends [facility]. Social work on consult. [facility] vs home with HC Further recommendations pending patient's course Nurse practitioner note has been reviewed by physician. Signing provider agrees with the documented findings, assessment, and plan of care.
[2018-05-15 09:03] LABS: Anisocytosis Slight; Basophils % (A) 1 %; Eosinophils # (A) 0.4 k/uL (0-0.7); Eosinophils % (A) 5 %; HCT 27.9 % (39.0-53.0); Hypochromasia Marked; Lymphocytes # (A) 0.8 k/uL (1.0-4.8); Lymphocytes % (A) 10 %; MCH 21.2 pg (25.0-35.0); MCHC 28.5 g/dL (31.0-37.0); MCV 74.5 fL (80.0-100.0); Mean Platelet Volume 7.7; Microcytosis Moderate; Monocytes # (A) 0.8 k/uL (0-1.0); Monocytes % (A) 11 %; Neutrophils # (A) 5.7 k/uL (1.3-7.7); Neutrophils % (A) 72 %; Platelet Count 283 k/uL (150-450); Poikilocytosis Slight; RBC 3.75 m/uL (4.30-5.90); RDW 19.9 % (11.5-15.5); WBC 7.9 k/uL (3.8-10.6)
--- NOTE | 2018-05-15 09:44 | P.PN ---
Subjective Progress Note Date: 05/15/18 Principal diagnosis: Right lower lobe healthcare associated pneumonia likely mixed bacterial and/or or gram-negative related, sepsis associated above, hemoptysis multifactorial, altered mental status again multifactorial likely related to above, intravascular volume depletion and dehydration, sleep disorder breathing and sleep apnea and, cardiomyopathy with baseline ejection fraction 35%, neuroendocrine tumor of the pancreatic tail, chronic microcytic anemia, elevated liver enzymes 05/15/2018, patient seen eval examined during the rounds clinically doing well awake and alert breathing comfortably the anticoagulation is on hold patient is scheduled for bronchoscopy later on today procedure has been explained to the patient at length, her sputum is positive for E. coli which is resistant to multiple agents, blood cultures are negative 05/14/2018, patient seen eval examined during the rounds cuff congestion shortness of breath still present but severity has improved, anticoagulation is on hold for anticipated bronchoscopy tomorrow noted evaluation and recommendation of GI services, procedure bronchoscopy has been explained to the patient and at length 57-year-old male was seen evaluated examined on fourth floor this patient admitted into the hospital with 2 day history of increasing spiking fever along with cuff congestion shortness of breath patient has been found to have a pneumonia patient does have a very thick purulent sputum production he is on multiple broad-spectrum antibiotics ID service is following, sputum for Gram stain is positive for many gram-negative bacilli final ID hours pending, patient intermittently has noted a few streaks of blood off and on appears to be related to airway inflammation also forceful coughing, admitted x-rays positive patchy right lower lobe infiltrate Review of the data revealed that patient was discharged on May 05 and has been taking oral Levaquin. He states today is day 7 of this medication. Patient states that previously he was on at-home IV vancomycin. Patient reports that last evening and this morning his cough seemed worse. He reports having a temperature of almost [address] His called Dr. Romero and he recommended that patient reported to the emergency department. He denies chest pain or shortness of breath, abdominal pain, nausea or vomiting, diarrhea or constipation, dysuria or hematuria. Objective - Vital Signs Vital signs: Vital Signs Temp 97.7 F 05/15/18 07:00 Pulse 84 05/15/18 07:16 Resp 18 05/15/18 07:00 BP 155/85 05/15/18 07:00 Pulse Ox 99 05/15/18 07:00 Intake & Output 05/14/18 05/15/18 05/15/18 18:59 06:59 18:59 Intake Total 850 870 Output Total 650 400 Balance 200 470 Intake: Intake, IV Titration 370 Amount Piperacillin-Tazobactam 3 50 .375 gm In Dextrose/Water 1 50ml.bag @ 12.5 mls/hr IVPB Q8HR [facility] Rx#: [id number] Sodium Chloride 0.9% 1, 320 000 ml @ 40 mls/hr IV . Q24H [facility] Rx#:[id number] Oral 850 500 Output: Urine 650 400 Other: Voiding Method Urinal Urinal # Voids 1 - Exam General: Awake and alert, well-developed; in no apparent distress. Lying comfortable in ED stretcher with at bedside. HEENT: Head atraumatic, normocephalic. Pupils are equal, round and reactive to light. Extraocular movements intact. Oropharynx moist without erythema or exudate. Neck: Supple. Normal ROM. Cardiovascular: Regular rate and rhythm. No murmurs, rubs or gallops. Chest symmetrical. Respiratory: Normal respiratory effort with no use of accessory muscles. On 2L O2 nasal cannula. Diffuse rales. No rhonchi or wheezes. Abdomen: Soft, non-tender, non-distended. No rigidity, rebound or guarding. Normal bowel sounds in all 4 quadrants. Musculoskeletal: Normal ROM bilateral upper and lower extremities. 3+ pitting edema bilateral lower extremities. Skin: [place], warm and dry. Neurological: Alert and oriented x3. CN II-XII grossly intact. Speech is fluent and answers are appropriate. No focal neuro deficits. Psychiatric: Normal mood and affect. No overt signs of depression or anxiety noted. - Labs CBC & Chem 7: 05/15/18 07:58 05/15/18 07:58 Labs: Abnormal Lab Results - Last 24 Hours (Table) 05/14/18 05/14/18 05/14/18 Range/Units 11:39 16:55 20:22 RBC (4.30-5.90) m/uL Hgb (13.0-17.5) gm/dL Hct (39.0-53.0) % MCV (80.0-100.0) fL MCH (25.0-35.0) pg MCHC (31.0-37.0) g/dL RDW (11.5-15.5) % Lymphocytes # (1.0-4.8) k/uL Carbon Dioxide (22-30) mmol/L BUN (9-20) mg/dL Glucose (74-99) mg/dL POC Glucose (mg/dL) 255 H 239 H 260 H (75-99) mg/dL AST (17-59) U/L ALT (21-72) U/L Albumin (3.5-5.0) g/dL 05/15/18 05/15/18 05/15/18 Range/Units 07:25 07:58 07:58 RBC 3.75 L (4.30-5.90) m/uL Hgb 8.0 L (13.0-17.5) gm/dL Hct 27.9 L (39.0-53.0) % MCV 74.5 L (80.0-100.0) fL MCH 21.2 L (25.0-35.0) pg MCHC 28.5 L (31.0-37.0) g/dL RDW 19.9 H (11.5-15.5) % Lymphocytes # 0.8 L (1.0-4.8) k/uL Carbon Dioxide 34 H (22-30) mmol/L BUN 21 H (9-20) mg/dL Glucose 114 H (74-99) mg/dL POC Glucose (mg/dL) 124 H (75-99) mg/dL AST 172 H (17-59) U/L ALT 162 H (21-72) U/L Albumin 2.9 L (3.5-5.0) g/dL Microbiology - Last 24 Hours (Table) 05/12/18 22:46 Gram Stain - Final Sputum Sputum Culture - Final Escherichia coli 05/12/18 11:25 Blood Culture - Preliminary Blood No Growth after 48 hours Assessment and Plan Assessment: Right lower lobe healthcare associated pneumonia due to gram-negative E. coli Right lower lobe healthcare associated pneumonia with severe sepsis Hemoptysis likely related to airway inflammation and pneumonia Altered mental status related to above Intravascular volume depletion and dehydration improved with fluid resuscitation Severe degree of sleep disorder breathing and sleep apnea Ischemic cardiomyopathy with chronic systolic heart failure baseline ejection fraction of 35% Chronic microcytic and anemia History of neuroendocrine tumor of pancreatic tail Plan: Broad-spectrum antibiotics Gentle fluid resuscitation rehydration BiPAP utilization Anticoagulation for atrial fibrillation Patient would benefit from bronchoscopy scheduled for later on today Time with Patient: Greater than 30
[2018-05-15] MEDS: FLUTICASONE 50MCG/SPRAY NASAL 16GM EA NOSTRIL SCH (09:56)
[2018-05-15 11:47] LABS: Glucose,Whole Blood 130 mg/dL (75-99)
[2018-05-15] MEDS ORDERED: ETOMIDATE 2 MG/ML 10 ML VIAL ONE (12:57)
[2018-05-15] MEDS ORDERED: LIDOCAINE 1% INJ 10MG/ML (20 ML MDV) ONE (12:57)
[2018-05-15] MEDS ORDERED: MIDAZOLAM 2 MG/2 ML VIAL ONE (12:57)
[2018-05-15] MEDS ORDERED: IV FLUID CONTINUATION 1,000 ML IV ONE (12:57)
[2018-05-15] MEDS: POTASSIUM CHLORIDE 10 MEQ in WATER FOR INJECTION 1 100ML.BAG IVPB SCH ×2 (13:39→14:35)
--- NOTE | 2018-05-15 15:05 | P.PCN ---
Date of Procedure: 05/15/18 Preoperative Diagnosis: pneumonia Postoperative Diagnosis: as above Procedure(s) Performed: Bronchoscopy and BAL RUL, LLL, RLL Anesthesia: MAC Surgeon: Ag Morton Estimated Blood Loss (ml): 1 Condition: stable Disposition: floor Indications for Procedure: ABOVE Operative Findings: BELOW Description of Procedure: Pt. prepared informed consent obtained, FOB passed via right nares very narrow, scope was taken to laryngeal area normal vocal cords and fx noted FOB passed thru VC diffuse erythema and edema of bronchial tree noted with extensive mucus plugging no endobronchial mass noted, BAL performed RUL, RLL and LLL tolerated well pulmonary toilet suctioning and cleaning performed as well
[2018-05-15] MEDS: SODIUM CHLORIDE 0.9% 1,000 ML IV SCH (15:13)
[2018-05-15 17:02] LABS: Glucose,Whole Blood 243 mg/dL (75-99)
--- NOTE | 2018-05-15 19:42 | P.PN ---
Subjective Progress Note Date: 05/15/18 Principal diagnosis: Hospital-acquired pneumonia Patient feeling better today after bronchoscopy. Tolerating his diet. No nausea or vomiting. No signs of GI bleeding. Objective - Vital Signs Vital signs: Vital Signs Temp 97.7 F 05/15/18 07:00 Pulse 88 05/15/18 16:53 Resp 18 05/15/18 07:00 BP 161/105 05/15/18 14:15 Pulse Ox 94 L 05/15/18 14:15 Intake & Output 05/15/18 05/15/18 05/16/18 06:59 18:59 06:59 Intake Total 870 200 Output Total 400 Balance 470 200 Intake: IV 200 Intake, IV Titration 370 Amount Piperacillin-Tazobactam 3 50 .375 gm In Dextrose/Water 1 50ml.bag @ 12.5 mls/hr IVPB Q8HR [place] Rx#: [id number] Sodium Chloride 0.9% 1, 320 000 ml @ 40 mls/hr IV . Q24H [facility] Rx#:[id number] Oral 500 Output: Urine 400 Other: Voiding Method Urinal # Voids 3 # Bowel Movements 0 - Exam On physical examination, patient appears comfortable in no apparent distress. HEAD: Normocephalic, atraumatic. EYES: No scleral icterus. No conjunctival injection. MOUTH: No lesions, tongue midline. NECK: Trachea midline, no gross abnormalities. CHEST: Markedly improved status post bronchoscopy. Clear in all lung roldan with no wheezing appreciated. HEART: Regular rate and rhythm. ABDOMEN: Soft, obese. Bowel sounds are positive. No organomegaly. No guarding or rigidity. EXTREMITIES: No pedal edema. SKIN: No rashes, no jaundice. NEUROLOGIC: Alert and oriented x3. No focal deficits. - Labs CBC & Chem 7: 05/15/18 07:58 05/15/18 11:14 Labs: Abnormal Lab Results - Last 24 Hours (Table) 05/14/18 05/15/18 05/15/18 Range/Units 20:22 07:25 07:58 RBC 3.75 L (4.30-5.90) m/uL Hgb 8.0 L (13.0-17.5) gm/dL Hct 27.9 L (39.0-53.0) % MCV 74.5 L (80.0-100.0) fL MCH 21.2 L (25.0-35.0) pg MCHC 28.5 L (31.0-37.0) g/dL RDW 19.9 H (11.5-15.5) % Lymphocytes # 0.8 L (1.0-4.8) k/uL Carbon Dioxide (22-30) mmol/L BUN (9-20) mg/dL Glucose (74-99) mg/dL POC Glucose (mg/dL) 260 H 124 H (75-99) mg/dL AST (17-59) U/L ALT (21-72) U/L Albumin (3.5-5.0) g/dL 05/15/18 05/15/18 05/15/18 Range/Units 07:58 11:43 17:00 RBC (4.30-5.90) m/uL Hgb (13.0-17.5) gm/dL Hct (39.0-53.0) % MCV (80.0-100.0) fL MCH (25.0-35.0) pg MCHC (31.0-37.0) g/dL RDW (11.5-15.5) % Lymphocytes # (1.0-4.8) k/uL Carbon Dioxide 34 H (22-30) mmol/L BUN 21 H (9-20) mg/dL Glucose 114 H (74-99) mg/dL POC Glucose (mg/dL) 130 H 243 H (75-99) mg/dL AST 172 H (17-59) U/L ALT 162 H (21-72) U/L Albumin 2.9 L (3.5-5.0) g/dL Microbiology - Last 24 Hours (Table) 05/12/18 11:25 Blood Culture - Preliminary Blood No Growth after 72 hours 05/12/18 22:46 Gram Stain - Final Sputum Sputum Culture - Final Escherichia coli Assessment and Plan (1) Elevated liver enzymes Narrative/Plan: Unknown etiology, however given the patient's recent antibiotic therapy is likely that the elevation is related to these medications. It is mainly in a hepatocellular pattern. We'll continue to follow. May also be likely to metastatic neuroendocrine tumor with last imaging exam noting focal lesions in the liver which were to be followed up. Improvement with down trending AST and stable ALT. Current Visit: Yes Status: Acute Code(s): R74.8 - ABNORMAL LEVELS OF OTHER SERUM ENZYMES SNOMED Code(s): 747381556 (2) Primary pancreatic neuroendocrine tumor Narrative/Plan: Pancreatic neuroendocrine tumor in the tail of the pancreas. The patient has been unable to follow up at [facility] due to recurrent hospitalizations. He has not received medical therapy or surgeries in the past. Current Visit: Yes Status: Acute Code(s): D3A.8 - OTHER BENIGN NEUROENDOCRINE TUMORS SNOMED Code(s): 598977518 Plan: Supportive care Okay for diet We'll follow liver enzymes If LFTs continue to rise we'll order a full liver serology, however likely elevation is due to antibiotic therapy Follow up with a PET/CT octreotide scan for evaluation of known pancreatic neuroendocrine tumor and new liver lesions, preferably at [facility] so comparison could be made to prior imaging Case discussed with primary care team, the patient will continue to receive treatment for her pneumonia. The patient requires oncology for treatment of neuroendocrine tumor who be referred to a local provider for treatment. This was relayed to the patient who is in agreement with the treatment plan. We will continue to follow Thank you for allowing us to but despite in the care of this patient
[2018-05-15 20:40] LABS: Glucose,Whole Blood 200 mg/dL (75-99)
[2018-05-15] MEDS: INSULIN DETEMIR 100 UNIT/ML 10 ML VIAL SQ SCH (20:43)
[2018-05-15] MEDS ORDERED: INSULIN DETEMIR 100 UNIT/ML 10 ML VIAL SQ SCH (21:00)
[2018-05-15] MEDS: amLODIPine 5 MG TAB PO SCH (21:44)
[2018-05-15] MEDS: APIXABAN 5 MG TAB PO SCH (21:44)
[2018-05-15] MEDS: METOPROLOL TARTRATE 25 MG TAB PO SCH (21:46)
[2018-05-15] MEDS: LEVOTHYROXINE 50 MCG TAB PO SCH (21:46)
[2018-05-15] MEDS: MONTELUKAST 10 MG TAB PO SCH (21:47)
[2018-05-15] MEDS: ZINC OXIDE 20% OINT 28.4 GM TUBE TOPICAL PRN (22:05)
[2018-05-16] MEDS: HYDROcodone/APAP 10-325MG 1 EACH TAB PO PRN ×5 (03:17→21:53)
[2018-05-16 07:28] LABS: Glucose,Whole Blood 91 mg/dL (75-99)
[2018-05-16] MEDS: INSULIN ASPART 100 UNIT/ML 1 ML 10 ML VIAL SQ SCH ×4 (07:40→21:05)
[2018-05-16 08:25] LABS: Albumin 2.8 g/dL (3.5-5.0); Calcium 8.7 mg/dL (8.4-10.2); Potassium 3.7 mmol/L (3.5-5.1); Total Bilirubin 0.8 mg/dL (0.2-1.3); Total Protein 6.1 g/dL (6.3-8.2)
[2018-05-16] MEDS: ALBUTEROL NEBULIZED 2.5 MG/3 ML INHALATION PRN ×4 (08:34→19:01)
[2018-05-16 08:40] LABS: Anisocytosis Moderate; Basophils % (A) 1 %; Eosinophils # (A) 0.4 k/uL (0-0.7); Eosinophils % (A) 8 %; HCT 29.4 % (39.0-53.0); HGB 8.1 gm/dL (13.0-17.5); Hypochromasia Marked; Lymphocytes # (A) 0.8 k/uL (1.0-4.8); Lymphocytes % (A) 15 %; MCH 21.1 pg (25.0-35.0); MCHC 27.6 g/dL (31.0-37.0); MCV 76.4 fL (80.0-100.0); Mean Platelet Volume 6.3; Microcytosis Moderate; Monocytes # (A) 0.6 k/uL (0-1.0); Monocytes % (A) 10 %; Neutrophils # (A) 3.4 k/uL (1.3-7.7); Neutrophils % (A) 63 %; Platelet Count 273 k/uL (150-450); Poikilocytosis Slight; RBC 3.84 m/uL (4.30-5.90); RDW 20.2 % (11.5-15.5); WBC 5.5 k/uL (3.8-10.6)
--- NOTE | 2018-05-16 08:41 | P.PN ---
Subjective Progress Note Date: 05/16/18 57-year-old male who presented to the emergency room with a chief complaint of increasing cough and fever. The patient was just hospitalized from 04/29/2018 until 05/05/2018 for right lower lobe pneumonia. The patient was seen by infectious disease and pulmonary at that time. He was discharged home on a 7 day course of Levaquin per infectious disease recommendations. The patient also had a previous hospital admission from 04/08/2018 until 04/16/2018 secondary to pneumonia and sepsis. The patient had a PICC line placed at that time and was discharged home on vancomycin. The patient states he was doing well at home after discharge. He reports last April he came to the emergency room for a fever of 100.0. His had given him motrin and he was afebrile when they arrived to the hospital so they decided not to be evaluated and returned home. Patient was afebrile since that time until yesterday evening when he developed a fever of 102F. He also reports increased coughing that started yesterday evening. He reports sputum production and states sometimes it is brownish and sometimes it is clear. He denies shortness of breath. He reports using home oxygen 2L NC at home. He checks his pulse ox and states it is always over 92% while wearing oxygen. Denies chest pain or pressure. Denies nausea or vomiting. Denies dizziness or lightheadedness. Denies change in bowel habits. Denies constipation or diarrhea. Reports good appetite. Denies unintentional weight loss. 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 He has also had a myocardial infarction 2006 and 2007. His past surgical history includes bowel resection, cholecystectomy, coronary artery bypass graft, heart catheterization with multiple stents, hernia repair, and joint replacements. He has had multiple hospitalizations for pneumonia and sepsis. The patients LFTs were elevated during previous hospitalization, but were trending downward. His LFTs this admission are elevated. Records were obtained from Dr. Boo office during last hospitalization. Patient was last seen in their office in August 2017. According to Dr. Mcgrath's dictation patient has a history of pancreatic tail neuroendocrine tumor. Surgical options were discussed with patient, although Dr. Mcgrath did mention patient was not a great surgical candidate. The patient and his decided against surgical intervention. The patient had a CT scan in 08/2017 of his abdomen and pelvis which revealed several small geographic areas of hypodensity in the subcapsular region of both liver lobes, with overlying mild capsular retraction. These areas are larger and new from prior exam. Dr. Mcgrath recommended 6 month follow up with octreoscan to make determination of liver issue. The patient was supposed to have this imaging completed this month but was hospitalized at that time. Patient has not scheduled an appointment to have testing completed. Chest xray: Patchy right infrahilar infiltrates which may reflect a pneumonia. Laboratory data on admission reveals white count of 17.5. Hemoglobin 8.3. Platelet count 290. Neutrophils 15.1. Sodium 143. Potassium 4.1. BUN 34. Creatinine 1.35. AST 201. ALT 126. Lactic acid 2.1. The patient did receive 2 L of normal saline boluses in the emergency room. Urinalysis reveals 1+ proteinuria, 2+ bilirubin, trace leukocyte esterase The patient was admitted to the hospital under the care of Dr. Romero. Consultations were placed to pulmonary and infectious disease. 05/13/2018 Patient seen and examined at the bedside with Dr. Romero. No family present. Patient is awake and alert. Patient reports he slept well last night and wore hospital bipap. Patients to bring his machine from home today per patient. He continues to have a productive cough. Sputum culture is pending. He denies shortness of breath. Denies chest pain or pressure. Patient has been afebrile. Labs from this morning are currently pending. 05/14/2018 Patient seen and examined at the bedside. Patient states he is feeling well this morning. Patient does complain of mild constipation. Blood cultures are negative at the 24 hour solange. Sputum culture is in progress. Patient was evaluated by GI who recommends that patient follow up downtown at [facility]. Patient is go undergo bronchoscopy tomorrow with Dr. Morton. NPO after midnight. Eliquis is on hold. Will resume after bronch. Patient does have skin breakdown to bilateral buttocks. Optifoam is in place. Patient to be turned and repositioned q2 hours and PRN. Patient and RN aware. 05/15/2018 Patient seen and examined at the bedside. Patient is awake and alert. Sitting on the side of the bed. Patient reports he wore his CPAP throughout the night but did not sleep well. He denies shortness of breath. He continues to have a cough, but states it is no longer productive. He continues to have bilateral LE edema. He is NPO and scheduled for bronch today. Sputum culture is positive for E. coli. Resistant to levaquin but suspectible to Zosyn. Patient does have L PICC in place. Will likely require outpatient IV antibiotics. Lab work from this morning is currently pending. 05/16/2018 Patient seen and examined at the bedside on rounds with Dr. Romero. Patient is awake and alert. Patient underwent bronch yesterday which revealed a lot of mucus plugs. BAL performed. Cultures pending. LFTs continue to trend downward. AST 91. ALT 131. Patient states his appetite is good. Denies nausea or vomiting. Denies chest pain. Denies shortness of breath at rest. He states he does have some sinus drainage this morning. Patient is on Singulair and Flonase nasal spray. Vital signs remain stable. Afebrile. Objective - Vital Signs Vital signs: Vital Signs Temp 97.1 F L 05/16/18 07:00 Pulse 76 05/16/18 07:00 Resp 18 05/16/18 07:00 BP 147/91 05/16/18 07:00 Pulse Ox 91 L 05/16/18 07:00 Intake & Output 05/15/18 05/16/18 05/16/18 18:59 06:59 18:59 Intake Total 200 Output Total 1600 Balance 200 -1600 Weight 92.986 kg Intake: IV 200 Output: Urine 1600 Other: Voiding Method Urinal # Voids 3 0 # Bowel Movements 0 0 - Exam GENERAL: This is a 57-year-old male in no apparent distress at the time of examination. Pleasant and cooperative. HEENT: Head is atraumatic, normocephalic. Pupils are equal, round, and reactive to light. Sclerae anicteric. Conjunctivae are clear. Mucus membranes of the mouth are moist. Neck is supple. RESPIRATORY: Some expiratory wheezing noted. No rhonchi or rales auscultated. No use of accessory muscles. Patient maintaining oxygen saturation greater than 92% on 2L. No chest wall tenderness is noted on palpation or with deep breathing. CARDIOVASCULAR: Regular rate and rhythm. S1 and S2 noted. No systolic or diastolic murmur auscultated. No JVD noted. No S3 or S4 noted. GASTROINTESTINAL: No distention noted. Abdomen soft and round. Normal active bowel sounds auscultated x 4 quadrants. No pain or tenderness noted upon palpation. INTEGUMENTARY: Skin breakdown noted to bilateral buttocks, stage 2, optiform dressing in place. No cyanosis. No jaundice. No rashes noted. No cellulitis noted. EXTREMITIES: 1+ peripheral pulses. 2-3+ bilateral ankle edema. No calf tenderness noted. NEUROLOGIC: Cranial nerves II-XII intact. PSYCHIATRIC: Awake, alert, and oriented X 3. Appropriate affect. Intact judgement and insight. - Labs CBC & Chem 7: 05/16/18 07:44 05/16/18 07:44 Labs: Abnormal Lab Results - Last 24 Hours (Table) 05/15/18 05/15/18 05/15/18 Range/Units 07:58 07:58 11:43 RBC 3.75 L (4.30-5.90) m/uL Hgb 8.0 L (13.0-17.5) gm/dL Hct 27.9 L (39.0-53.0) % MCV 74.5 L (80.0-100.0) fL MCH 21.2 L (25.0-35.0) pg MCHC 28.5 L (31.0-37.0) g/dL RDW 19.9 H (11.5-15.5) % Lymphocytes # 0.8 L (1.0-4.8) k/uL Carbon Dioxide 34 H (22-30) mmol/L BUN 21 H (9-20) mg/dL Glucose 114 H (74-99) mg/dL POC Glucose (mg/dL) 130 H (75-99) mg/dL AST 172 H (17-59) U/L ALT 162 H (21-72) U/L Albumin 2.9 L (3.5-5.0) g/dL 05/15/18 05/15/18 Range/Units 17:00 20:38 RBC (4.30-5.90) m/uL Hgb (13.0-17.5) gm/dL Hct (39.0-53.0) % MCV (80.0-100.0) fL MCH (25.0-35.0) pg MCHC (31.0-37.0) g/dL RDW (11.5-15.5) % Lymphocytes # (1.0-4.8) k/uL Carbon Dioxide (22-30) mmol/L BUN (9-20) mg/dL Glucose (74-99) mg/dL POC Glucose (mg/dL) 243 H 200 H (75-99) mg/dL AST (17-59) U/L ALT (21-72) U/L Albumin (3.5-5.0) g/dL Microbiology - Last 24 Hours (Table) 05/15/18 14:10 Bronchial Washings Culture - Preliminary Bronchial Washings - Right 05/15/18 14:10 Fungal Culture - Preliminary Bronchial Washings - Right 05/15/18 14:10 Acid Fast Bacilli Culture - Preliminary Bronchial Washings - Right 05/12/18 11:25 Blood Culture - Preliminary Blood No Growth after 72 hours 05/12/18 22:46 Gram Stain - Final Sputum Sputum Culture - Final Escherichia coli Assessment and Plan Plan: ASSESSMENT: Right infrahilar pneumonia, suspect hospital-acquired, sputum culture positive for E. coli, s/p bronch with BAL, cultures pending Sepsis, present on admission, secondary to above, improving Recent hospitalization for right lower lobe pneumonia 04/29/2018-05/05/2018, discharged home on 7 day course of Levaquin Recent hospitalization for sepsis and pneumonia, discharged 04/16/2018 on 10 day regimen of Vancomycin Paroxysmal atrial fibrillation, maintained on long-term anticoagulation with Eliquis Coronary artery disease with previous coronary artery bypass grafting and previous stent placement Diabetes mellitus type II Multiple previous hospital admissions for pneumonia and sepsis Obstructive sleep apnea, Patient reports compliance with CPAP Chronic systolic congestive heart failure, EF 35-40% Microcytic hypochromic anemia, etiology unclear, patient was to have colonoscopy 03/2018 but unable to have procedure due to fevers and weakness. 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 Mcgrath, patient declined surgical intervention Transaminitis, etiology unclear, may be secondary to pancreatic tail neuroendocrine tumor and/or several areas of hypodensity in subcapsular region of both liver lobes, patient follows outpatient with Dr. Mcgrath. May be related to antibiotics per Dr. Salas. Chronic adrenal insufficiency, maintained on Cortef Previous cellulitis with MRSA History of MRSA pneumonia Hyperlipidemia Osteoarthritis Hypothyroidism Obesity: BMI 34.1 Stage 2 pressure ulcer of buttocks, present on admission PLAN: Infectious disease on consult. Appreciate recommendations and input Continue antibiotics: Levaquin and Zosyn per ID Decrease Levemir to 15 units BID secondary to hypoglycemia this morning Pulmonary, Dr. Morton, on consult. Appreciate recommendations and input Await cultures results from bronch Dr. Salas on consult to evaluate patient as patient has been unable to make appointments with Dr. Mcgrath downtown secondary to being readmitted to the hospital. Consult appreciated. Optiform dressing to coccyx Turn and reposition patient q2 hours and PRN to offload pressure to buttocks Elevate bilateral LE on pillows PT/OT Home meds as appropriate Monitor labs GI prophylaxis: Protonix 40 mg PO Daily DVT prophylaxis: Eliquis Monitor vital signs and address as appropriate Discharge planning: Home with home care Further recommendations pending patient's course Nurse practitioner note has been reviewed by physician. Signing provider agrees with the documented findings, assessment, and plan of care.
[2018-05-16] MEDS: PIPERACILLIN-TAZOBACTAM 3.375 GM in DEXTROSE/WATER 1 50ML.BAG IVPB SCH ×2 (08:53→16:37)
[2018-05-16] MEDS: APIXABAN 5 MG TAB PO SCH ×2 (08:54→21:18)
[2018-05-16] MEDS: CLOTRIMAZOLE/BETAMETH 1-0.05% CREAM 45 GM TUBE TOPICAL SCH ×2 (08:54→21:28)
[2018-05-16] MEDS: ZINC OXIDE 20% OINT 28.4 GM TUBE TOPICAL PRN (08:54)
[2018-05-16] MEDS: ETODOLAC 400 MG TAB PO SCH ×2 (08:55→21:19)
[2018-05-16] MEDS: FLUTICASONE 50MCG/SPRAY NASAL 16GM EA NOSTRIL SCH (08:55)
[2018-05-16] MEDS: DOCUSATE 100 MG CAP PO SCH (08:55)
[2018-05-16] MEDS: DULoxetine HCL 30 MG CAPSULE.DR PO SCH ×2 (08:55→21:19)
[2018-05-16] MEDS: GABAPENTIN 400 MG CAP PO SCH ×4 (08:56→21:21)
[2018-05-16] MEDS: FUROSEMIDE 20 MG TAB PO SCH (08:56)
[2018-05-16] MEDS: LORATADINE 10 MG TAB PO SCH (08:57)
[2018-05-16] MEDS: LEVOFLOXACIN 750 MG TAB PO SCH (08:57)
[2018-05-16] MEDS: METOPROLOL TARTRATE 25 MG TAB PO SCH ×2 (08:57→21:18)
[2018-05-16] MEDS: LISINOPRIL 5 MG TAB PO SCH (08:57)
[2018-05-16] MEDS: HYDROCORTISONE 20 MG TAB PO SCH (08:57)
[2018-05-16] MEDS: POTASSIUM CHLORIDE ER 20 MEQ TAB.ER PO SCH (08:58)
[2018-05-16] MEDS: INSULIN DETEMIR 100 UNIT/ML 10 ML VIAL SQ SCH ×2 (09:06→21:52)
[2018-05-16 09:07] LABS: Glucose,Whole Blood 118 mg/dL (75-99)
--- NOTE | 2018-05-16 10:25 | P.PN ---
<Radha Paulson E - Last Filed: 05/16/18 10:18> Subjective Progress Note Date: 05/16/18 HPI: 57-year-old male was seen evaluated examined on fourth floor this patient admitted into the hospital with 2 day history of increasing spiking fever along with cuff congestion shortness of breath patient has been found to have a pneumonia patient does have a very thick purulent sputum production he is on multiple broad-spectrum antibiotics ID service is following, sputum for Gram stain is positive for many gram-negative bacilli final ID hours pending, patient intermittently has noted a few streaks of blood off and on appears to be related to airway inflammation also forceful coughing, admitted x-rays positive patchy right lower lobe infiltrate Review of the data revealed that patient was discharged on May 05 and has been taking oral Levaquin. He states today is day 7 of this medication. Patient states that previously he was on at-home IV vancomycin. Patient reports that last evening and this morning his cough seemed worse. He reports having a temperature of almost [address] His called Dr. Romero and he recommended that patient reported to the emergency department. He denies chest pain or shortness of breath, abdominal pain, nausea or vomiting, diarrhea or constipation, dysuria or hematuria Interval History: 05/16/2018-patient is being seen examined and evaluated on rounds for Dr. Morton. He is resting up in bed on 2 L of supplemental oxygen via nasal cannula. He states his breathing is relatively stable today. He does get short of breath with exertion and activity. Denies a cough or congestion today. He did undergo a bronchoscopy yesterday. All labs and reports have been reviewed. He is afebrile no further complaints. Objective - Vital Signs Vital signs: Vital Signs Temp 97.1 F L 05/16/18 07:00 Pulse 88 05/16/18 08:43 Resp 18 05/16/18 07:00 BP 147/91 05/16/18 07:00 Pulse Ox 91 L 05/16/18 07:00 Intake & Output 05/15/18 05/16/18 05/16/18 18:59 06:59 18:59 Intake Total 200 Output Total 1600 Balance 200 -1600 Weight 92.986 kg Intake: IV 200 Output: Urine 1600 Other: Voiding Method Urinal # Voids 3 0 # Bowel Movements 0 0 1 - Exam General: Awake and alert, well-developed; in no apparent distress. HEENT: Head atraumatic, normocephalic. Pupils are equal, round and reactive to light. Neck: Supple. Normal ROM. Cardiovascular: Regular rate and rhythm. No murmurs, rubs or gallops. Chest symmetrical. Respiratory: Normal respiratory effort with no use of accessory muscles. On 2L O2 nasal cannula. No rhonchi or wheezes. Abdomen: Soft, non-tender, non-distended. No rigidity, rebound or guarding. Normal bowel sounds in all 4 quadrants. Musculoskeletal: Normal ROM bilateral upper and lower extremities. 2+ pitting edema bilateral lower extremities. Neurological: Alert and oriented x3. CN II-XII grossly intact. Speech is fluent and answers are appropriate. No focal neuro deficits. - Labs CBC & Chem 7: 05/16/18 07:44 05/16/18 07:44 Labs: Abnormal Lab Results - Last 24 Hours (Table) 05/15/18 05/15/18 05/15/18 Range/Units 11:43 17:00 20:38 RBC (4.30-5.90) m/uL Hgb (13.0-17.5) gm/dL Hct (39.0-53.0) % MCV (80.0-100.0) fL MCH (25.0-35.0) pg MCHC (31.0-37.0) g/dL RDW (11.5-15.5) % Lymphocytes # (1.0-4.8) k/uL Carbon Dioxide (22-30) mmol/L BUN (9-20) mg/dL Glucose (74-99) mg/dL POC Glucose (mg/dL) 130 H 243 H 200 H (75-99) mg/dL AST (17-59) U/L ALT (21-72) U/L Total Protein (6.3-8.2) g/dL Albumin (3.5-5.0) g/dL 05/16/18 05/16/18 05/16/18 Range/Units 07:44 07:44 09:05 RBC 3.84 L (4.30-5.90) m/uL Hgb 8.1 L (13.0-17.5) gm/dL Hct 29.4 L (39.0-53.0) % MCV 76.4 L (80.0-100.0) fL MCH 21.1 L (25.0-35.0) pg MCHC 27.6 L (31.0-37.0) g/dL RDW 20.2 H (11.5-15.5) % Lymphocytes # 0.8 L (1.0-4.8) k/uL Carbon Dioxide 39 H (22-30) mmol/L BUN 22 H (9-20) mg/dL Glucose 63 L (74-99) mg/dL POC Glucose (mg/dL) 118 H (75-99) mg/dL AST 91 H (17-59) U/L ALT 131 H (21-72) U/L Total Protein 6.1 L (6.3-8.2) g/dL Albumin 2.8 L (3.5-5.0) g/dL Microbiology - Last 24 Hours (Table) 05/15/18 14:10 Gram Stain - Preliminary Bronchial Washings - Right Bronchial Washings Culture - Preliminary 05/15/18 14:10 Fungal Culture - Preliminary Bronchial Washings - Right 05/15/18 14:10 Acid Fast Bacilli Culture - Preliminary Bronchial Washings - Right 05/12/18 11:25 Blood Culture - Preliminary Blood No Growth after 72 hours 05/12/18 22:46 Gram Stain - Final Sputum Sputum Culture - Final Escherichia coli Assessment and Plan Assessment: Assessment: Right lower lobe healthcare associated pneumonia due to gram-negative E. coli Right lower lobe healthcare associated pneumonia with severe sepsis Hemoptysis likely related to airway inflammation and pneumonia Altered mental status related to above Intravascular volume depletion and dehydration improved with fluid resuscitation Severe degree of sleep disorder breathing and sleep apnea Ischemic cardiomyopathy with chronic systolic heart failure baseline ejection fraction of 35% Chronic microcytic and anemia History of neuroendocrine tumor of pancreatic tail Plan: Broad-spectrum antibiotics Gentle fluid resuscitation rehydration BiPAP utilization, at night and when necessary Supplemental oxygen to maintain oxygen saturations greater than 92% Anticoagulation for atrial fibrillation Initiate and encourage incentive spirometer Pulmonary hygiene and supportive care Increase activity as tolerated PT and OT We will continue to monitor labs/results and adjust treatment as necessary We are covering for Dr. Morton I performed an examination of the patient and discussed their management with the nurse practitioner. I have reviewed the nurse practitioner's note and agree with the documented findings and plan of care. <Aliyah Palumbo - Last Filed: 05/16/18 13:39> Objective - Vital Signs Vital signs: Vital Signs Temp 97.1 F L 05/16/18 07:00 Pulse 84 05/16/18 11:44 Resp 18 05/16/18 07:00 BP 147/91 05/16/18 07:00 Pulse Ox 91 L 05/16/18 07:00 Intake & Output 05/15/18 05/16/18 05/16/18 18:59 06:59 18:59 Intake Total 200 Output Total 1600 Balance 200 -1600 Weight 92.986 kg Intake: IV 200 Output: Urine 1600 Other: Voiding Method Urinal Urinal # Voids 3 0 # Bowel Movements 0 0 1 - Labs CBC & Chem 7: 05/16/18 07:44 05/16/18 07:44 Labs: Abnormal Lab Results - Last 24 Hours (Table) 05/15/18 05/15/18 05/16/18 Range/Units 17:00 20:38 07:44 RBC 3.84 L (4.30-5.90) m/uL Hgb 8.1 L (13.0-17.5) gm/dL Hct 29.4 L (39.0-53.0) % MCV 76.4 L (80.0-100.0) fL MCH 21.1 L (25.0-35.0) pg MCHC 27.6 L (31.0-37.0) g/dL RDW 20.2 H (11.5-15.5) % Lymphocytes # 0.8 L (1.0-4.8) k/uL Carbon Dioxide (22-30) mmol/L BUN (9-20) mg/dL Glucose (74-99) mg/dL POC Glucose (mg/dL) 243 H 200 H (75-99) mg/dL AST (17-59) U/L ALT (21-72) U/L Total Protein (6.3-8.2) g/dL Albumin (3.5-5.0) g/dL 05/16/18 05/16/18 Range/Units 07:44 09:05 RBC (4.30-5.90) m/uL Hgb (13.0-17.5) gm/dL Hct (39.0-53.0) % MCV (80.0-100.0) fL MCH (25.0-35.0) pg MCHC (31.0-37.0) g/dL RDW (11.5-15.5) % Lymphocytes # (1.0-4.8) k/uL Carbon Dioxide 39 H (22-30) mmol/L BUN 22 H (9-20) mg/dL Glucose 63 L (74-99) mg/dL POC Glucose (mg/dL) 118 H (75-99) mg/dL AST 91 H (17-59) U/L ALT 131 H (21-72) U/L Total Protein 6.1 L (6.3-8.2) g/dL Albumin 2.8 L (3.5-5.0) g/dL Microbiology - Last 24 Hours (Table) 05/15/18 14:10 Gram Stain - Preliminary Bronchial Washings - Right Bronchial Washings Culture - Preliminary 05/15/18 14:10 Fungal Culture - Preliminary Bronchial Washings - Right 05/15/18 14:10 Acid Fast Bacilli Culture - Preliminary Bronchial Washings - Right 05/12/18 11:25 Blood Culture - Preliminary Blood No Growth after 72 hours Assessment and Plan Assessment: Patient seen and examined covering for Dr. Morton. Status post bronchoscopy. Cytology and cultures are pending. Antibiotics. Continue breathing treatments. Incentive spirometry and pulmonary hygiene. BiPAP at night and as needed. PT and OT. ~Aliyah Palumbo DO
[2018-05-16 12:00] LABS: Glucose,Whole Blood 84 mg/dL (75-99)
[2018-05-16] MEDS: SODIUM CHLORIDE 0.9% 1,000 ML IV SCH (16:37)
[2018-05-16 17:19] LABS: Glucose,Whole Blood 122 mg/dL (75-99)
--- NOTE | 2018-05-16 19:25 | P.PN ---
Subjective Progress Note Date: 05/16/18 Principal diagnosis: Hospital-acquired pneumonia, neuroendocrine tumor Patient reports feeling better. Tolerating diet. His who is standing bedside feels he is looking better as well and has more color. Objective - Vital Signs Vital signs: Vital Signs Temp 98.5 F 05/16/18 15:00 Pulse 84 05/16/18 19:13 Resp 17 05/16/18 15:00 BP 132/82 05/16/18 15:00 Pulse Ox 98 05/16/18 15:00 Intake & Output 05/16/18 05/16/18 05/17/18 06:59 18:59 06:59 Output Total 1600 Balance -1600 Weight 92.986 kg Output: Urine 1600 Other: Voiding Method Urinal Urinal # Voids 0 2 # Bowel Movements 0 1 - Exam On physical examination, patient appears comfortable in no apparent distress. HEAD: Normocephalic, atraumatic. EYES: No scleral icterus. No conjunctival injection. MOUTH: No lesions, tongue midline. NECK: Trachea midline, no gross abnormalities. CHEST: Markedly improved status post bronchoscopy. Clear in all lung roldan with no wheezing appreciated. HEART: Regular rate and rhythm. ABDOMEN: Soft, obese. Bowel sounds are positive. No organomegaly. No guarding or rigidity. EXTREMITIES: No pedal edema. SKIN: No rashes, no jaundice. NEUROLOGIC: Alert and oriented x3. No focal deficits. - Labs CBC & Chem 7: 05/16/18 07:44 05/16/18 07:44 Labs: Abnormal Lab Results - Last 24 Hours (Table) 05/15/18 05/16/18 05/16/18 Range/Units 20:38 07:44 07:44 RBC 3.84 L (4.30-5.90) m/uL Hgb 8.1 L (13.0-17.5) gm/dL Hct 29.4 L (39.0-53.0) % MCV 76.4 L (80.0-100.0) fL MCH 21.1 L (25.0-35.0) pg MCHC 27.6 L (31.0-37.0) g/dL RDW 20.2 H (11.5-15.5) % Lymphocytes # 0.8 L (1.0-4.8) k/uL Carbon Dioxide 39 H (22-30) mmol/L BUN 22 H (9-20) mg/dL Glucose 63 L (74-99) mg/dL POC Glucose (mg/dL) 200 H (75-99) mg/dL AST 91 H (17-59) U/L ALT 131 H (21-72) U/L Total Protein 6.1 L (6.3-8.2) g/dL Albumin 2.8 L (3.5-5.0) g/dL 05/16/18 05/16/18 Range/Units 09:05 17:17 RBC (4.30-5.90) m/uL Hgb (13.0-17.5) gm/dL Hct (39.0-53.0) % MCV (80.0-100.0) fL MCH (25.0-35.0) pg MCHC (31.0-37.0) g/dL RDW (11.5-15.5) % Lymphocytes # (1.0-4.8) k/uL Carbon Dioxide (22-30) mmol/L BUN (9-20) mg/dL Glucose (74-99) mg/dL POC Glucose (mg/dL) 118 H 122 H (75-99) mg/dL AST (17-59) U/L ALT (21-72) U/L Total Protein (6.3-8.2) g/dL Albumin (3.5-5.0) g/dL Microbiology - Last 24 Hours (Table) 05/12/18 11:25 Blood Culture - Preliminary Blood No Growth after 96 hours 05/15/18 14:10 Gram Stain - Preliminary Bronchial Washings - Right Bronchial Washings Culture - Preliminary 05/15/18 14:10 Fungal Culture - Preliminary Bronchial Washings - Right 05/15/18 14:10 Acid Fast Bacilli Culture - Preliminary Bronchial Washings - Right Assessment and Plan (1) Elevated liver enzymes Narrative/Plan: Unknown etiology, however given the patient's recent antibiotic therapy is likely that the elevation is related to these medications. It is mainly in a hepatocellular pattern. We'll continue to follow. May also be likely to metastatic neuroendocrine tumor with last imaging exam noting focal lesions in the liver which were to be followed up. Improvement with down trending AST and stable ALT. Current Visit: Yes Status: Acute Code(s): R74.8 - ABNORMAL LEVELS OF OTHER SERUM ENZYMES SNOMED Code(s): 276091614 (2) Primary pancreatic neuroendocrine tumor Narrative/Plan: Pancreatic neuroendocrine tumor in the tail of the pancreas. The patient has been unable to follow up at [facility] due to recurrent hospitalizations. He has not received medical therapy or surgeries in the past. Current Visit: Yes Status: Acute Code(s): D3A.8 - OTHER BENIGN NEUROENDOCRINE TUMORS SNOMED Code(s): 532753813 Plan: Supportive care Okay for diet We'll follow liver enzymes If LFTs continue to rise we'll order a full liver serology, however likely elevation is due to antibiotic therapy Follow up with a PET/CT octreotide scan for evaluation of known pancreatic neuroendocrine tumor and new liver lesions, preferably at [facility] so comparison could be made to prior imaging Case discussed with primary care team, the patient will continue to receive treatment for her pneumonia. The patient requires oncology for treatment of neuroendocrine tumor who be referred to a local provider for treatment. This was relayed to the patient who is in agreement with the treatment plan. We will continue to follow Thank you for allowing us to but despite in the care of this patient
[2018-05-16 20:54] LABS: Glucose,Whole Blood 127 mg/dL (75-99)
[2018-05-16] MEDS: MONTELUKAST 10 MG TAB PO SCH (21:18)
[2018-05-16] MEDS: amLODIPine 5 MG TAB PO SCH (21:18)
[2018-05-16] MEDS: LEVOTHYROXINE 50 MCG TAB PO SCH (21:21)
[2018-05-17] MEDS: PIPERACILLIN-TAZOBACTAM 3.375 GM in DEXTROSE/WATER 1 50ML.BAG IVPB SCH ×3 (01:10→16:23)
[2018-05-17] MEDS: HYDROcodone/APAP 10-325MG 1 EACH TAB PO PRN ×4 (01:42→21:51)
[2018-05-17 06:01] LABS: Glucose,Whole Blood 97 mg/dL (75-99)
[2018-05-17 07:22] LABS: Glucose,Whole Blood 88 mg/dL (75-99)
[2018-05-17] MEDS: INSULIN ASPART 100 UNIT/ML 1 ML 10 ML VIAL SQ SCH ×4 (07:40→21:50)
[2018-05-17] MEDS: ALBUTEROL NEBULIZED 2.5 MG/3 ML INHALATION PRN ×2 (08:13→20:07)
[2018-05-17 08:20] LABS: Anisocytosis Moderate; Basophils # (A) 0.1 k/uL (0-0.2); Basophils % (A) 2 %; Eosinophils # (A) 0.4 k/uL (0-0.7); Eosinophils % (A) 8 %; HCT 29.4 % (39.0-53.0); HGB 8.1 gm/dL (13.0-17.5); Hypochromasia Marked; Lymphocytes # (A) 0.8 k/uL (1.0-4.8); Lymphocytes % (A) 18 %; MCHC 27.5 g/dL (31.0-37.0); MCV 76.2 fL (80.0-100.0); Mean Platelet Volume 6.1; Microcytosis Moderate; Monocytes # (A) 0.5 k/uL (0-1.0); Monocytes % (A) 12 %; Neutrophils # (A) 2.5 k/uL (1.3-7.7); Neutrophils % (A) 57 %; Platelet Count 234 k/uL (150-450); Poikilocytosis Slight; RBC 3.86 m/uL (4.30-5.90); RDW 20.1 % (11.5-15.5); WBC 4.5 k/uL (3.8-10.6)
[2018-05-17 08:42] LABS: Albumin 2.9 g/dL (3.5-5.0); Calcium 8.5 mg/dL (8.4-10.2); Potassium 3.9 mmol/L (3.5-5.1); Total Bilirubin 0.7 mg/dL (0.2-1.3); Total Protein 6.1 g/dL (6.3-8.2)
[2018-05-17] MEDS: DOCUSATE 100 MG CAP PO SCH (09:10)
[2018-05-17] MEDS: APIXABAN 5 MG TAB PO SCH ×2 (09:10→21:48)
[2018-05-17] MEDS: DULoxetine HCL 30 MG CAPSULE.DR PO SCH ×2 (09:10→21:48)
[2018-05-17] MEDS: FUROSEMIDE 20 MG TAB PO SCH (09:11)
[2018-05-17] MEDS: FLUTICASONE 50MCG/SPRAY NASAL 16GM EA NOSTRIL SCH (09:11)
[2018-05-17] MEDS: ETODOLAC 400 MG TAB PO SCH ×2 (09:11→21:48)
[2018-05-17] MEDS: INSULIN DETEMIR 100 UNIT/ML 10 ML VIAL SQ SCH ×2 (09:12→21:51)
[2018-05-17] MEDS: LEVOFLOXACIN 750 MG TAB PO SCH (09:12)
[2018-05-17] MEDS: GABAPENTIN 400 MG CAP PO SCH ×4 (09:12→21:49)
[2018-05-17] MEDS: CLOTRIMAZOLE/BETAMETH 1-0.05% CREAM 45 GM TUBE TOPICAL SCH ×2 (09:12→21:48)
[2018-05-17] MEDS: HYDROCORTISONE 20 MG TAB PO SCH (09:12)
[2018-05-17] MEDS: POTASSIUM CHLORIDE ER 20 MEQ TAB.ER PO SCH (09:13)
[2018-05-17] MEDS: METOPROLOL TARTRATE 25 MG TAB PO SCH ×2 (09:13→21:49)
[2018-05-17] MEDS: LORATADINE 10 MG TAB PO SCH (09:13)
[2018-05-17] MEDS: LISINOPRIL 5 MG TAB PO SCH (09:13)
--- NOTE | 2018-05-17 10:12 | PN ---
PROGRESS NOTE Patient is doing quite well today. Feels good. Still has some shortness of breath. We still have the micro pending on bronchoscopy material removed by Dr. Morton. At this period of time, there is no new lab to add. In general, he is in no distress. HIS REVIEW OF SYSTEMS: Basically eyes are normal. ENT is within normal limits. NECK: No problem swallowing. RESPIRATORY: He does have some cough. CARDIAC: No shortness of breath. No chest pain. No orthopnea. No paroxysmal nocturnal dyspnea. GI: No hematemesis, melena or hematochezia. No nausea, no vomiting, no diarrhea. URINARY: He is having no problems with urination. INTEGUMENTARY: He has got the decubitus changes on his buttocks. PSYCHIATRIC: No anxiety. No depression. PHYSICAL EXAMINATION: VITAL SIGNS: Today, blood pressure is 134/68, heart rate is in the 60s, respiratory rate is 16, temperature is 97. EYES: Pupils are equal, round, react to light accommodation. ENT showed tympanic membranes and pharynx to be negative. NECK: Supple with a midline trachea. CHEST: Essentially clear except for some rhonchi in the bottom right and left. HEART: Sinus rhythm with no murmur. ABDOMEN: Soft, nontender with no organomegaly. There is a Optifoam dressing on the buttocks. +2 swelling in the lower legs. ASSESSMENT: 1. Right infrahilar pneumonia suspect hospital acquired. Sputum culture Escherichia coli. Bronch washing, we are awaiting for results. Sepsis depending on admission but improving. 2. Recent hospitalization for right lower lobe pneumonia. 3. Recent hospitalization for sepsis with pneumonia. 4. Paroxysmal atrial fib. 5. Coronary artery disease with previous artery grafting. 6. Type 2 diabetes. 7. Pneumonia. 8. Sepsis. 9. Chronic systolic congestive heart failure with an right around 30 to 40. 10.Got a microcytic hypochromic anemia, etiology is still unclear. 11.The patient was to have colonoscopy on 03/2018, was unable to do it because of fever and chills. 12.History of pancreatic tail neuroendocrine tumor thought to be benign, but there are some lesions on the liver. Still that remain unclear. The patient is to follow up with Dr. Oconnor. 13.Chronic adrenal insufficiency. 14.Previous cellulitis with methicillin-resistant Staphylococcus aureus. 15.History of methicillin-resistant Staphylococcus aureus pneumonia. 16.Generalized osteoarthritis. 17.Obesity. 18.He has got type 2 pressure ulcers on the buttocks, being treated. PLAN: Infectious Disease consult appreciated. RECOMMENDATIONS: Still awaiting the results of bronch culture per Dr. Morton. We decreased the Levemir to 15 units b.i.d. due to hypoglycemia this morning. Appreciate Dr. Salas recommendations, appreciate Dr. Morton's recommendation. Optifoam to the buttocks. Antibiotics continued. Turn every 2 hours to off pressure of the buttocks. Elevate the legs with pillows. GI prophylaxis. DVT prophylaxis. Prognosis is guarded. MMODL / IJN: [id number] /
--- NOTE | 2018-05-17 10:42 | PN ---
PROGRESS NOTE DATE OF SERVICE: 05/17/2018 The patient is a 57-year-old pleasant white male admitted to the hospital with pneumonia, presently on broad-spectrum antibiotics and gradually doing well. We are consulted because of elevated LFTs and history of neuroendocrine tumor that was diagnosed 2 years ago and he follows at [facility] with Dr. Mcgrath. The patient is doing much better in regards to his breathing. He denies any fever, chills, or night sweats. Shortness of breath has improved. The patient states that he was diagnosed with neuroendocrine tumor of the pancreas about 2 years ago on endoscopic ultrasound of the pancreas that was biopsy-proven. The lesion was very small and he was advised to follow up on a yearly basis. He had a followup last year and a according to him he did have an scan as well as CT of the abdomen and the lesion has slightly increased in size, but the plan was to monitor it closely. This year he was supposed to be seen last month, but because of recent hospitalizations for pneumonia, he has postponed the appointment next month. He denies any abdominal pain. He reports no fever or chills. PHYSICAL EXAMINATION: On physical examination, he appears comfortable. No apparent distress. Vital signs are stable. Blood pressure is 130/61, pulse rate 78, temperature 97.8. HEENT EXAMINATION: Unremarkable. Conjunctivae pink. Sclerae anicteric. Oral cavity, no lesions. NECK: No JVD or lymph node enlargement. CHEST: Clear to auscultation. HEART: Regular rate and rhythm. Abdomen was soft. It was nontender, nondistended. Liver and spleen were not palpable. Bowel sounds are positive. EXTREMITIES: No pedal edema. SKIN: No rashes. NEURO: He is alert and oriented x3. No focal deficits. LABS: Labs from today, WBC 4.5, hemoglobin 8.1, platelets 234. Basic metabolic panel is also within normal limits. Liver enzymes were slightly elevated. AST 69, ALT is 112 and T bilirubin and alkaline phosphatase are normal. At the time of admission to the hospital, ALT and AST were 155 and 357 respectively. IMPRESSION: 1. Pneumonia on broad-spectrum antibiotics, gradually improving. 2. Elevated LFTs in the range of 200 and 300 at the time of admission to the hospital, which are gradually improving. Today ALT and AST are at 112 and 69 respectively. Most likely medication-related. However, they are gradually improving. 3. History of neuroendocrine tumor of the pancreas diagnosed 2 years ago. He follows with Dr. Mcgrath at [facility] on an outpatient basis. Last visit was a year ago presently being monitored clinically and on the imaging studies. He did not receive any definitive therapy so far because of the size of the lesion. The patient is scheduled to see them next month. RECOMMENDATIONS: 1. Continue with broad-spectrum antibiotics. 2. Follow liver enzymes on a daily basis. 3. I advised the patient to follow up at [facility] next month with Dr. Mcgrath for neuroendocrine tumor. Thank you for this consultation. MMODL / IJN: [id number] /
[2018-05-17 11:59] LABS: Glucose,Whole Blood 88 mg/dL (75-99)
[2018-05-17] MEDS: SODIUM CHLORIDE 0.9% 1,000 ML IV SCH (14:19)
[2018-05-17] MEDS: methylPREDNISolone SOD SUCCI 125 MG/2 ML VIAL IV SCH ×2 (14:19→17:38)
--- NOTE | 2018-05-17 14:24 | PN ---
PROGRESS NOTE He was seen on 05/17/2018 He continues to have shortness of breath and is wheezing. He is afebrile. PHYSICAL EXAMINATION: On physical examination, his blood pressure is 134/68, respiratory rate is 16, pulse rate of 65, temperature 97.1, O2 sat on 2 L by nasal cannula is 96%. HEENT is unremarkable. Chest reveals expiratory wheeze. Cardiovascular system reveals an S1, S2. Abdomen is soft. There is no pedal edema. Gram stain of the sputum culture is showing E coli. Bronchial washings themselves show only rare Radha. IMPRESSION AT THIS TIME: 1. Right infrahilar pneumonia secondary to Escherichia coli. 2. Bronchospasm. 3. Adrenal insufficiency. 4. History of pressure ulcers. 5. Diabetes mellitus. 6. Atrial fibrillation. Continue antibiotics. Add a short course of steroids and continue montelukast. Add aerosolized steroids to decrease inflammatory status of the airways. His prognosis at this time is guarded. MMODL / IJN: [id number] /
[2018-05-17 17:42] LABS: Glucose,Whole Blood 202 mg/dL (75-99)
[2018-05-17] MEDS: BUDESONIDE 0.5 MG/2 ML NEBU INHALATION SCH (20:07)
[2018-05-17 20:40] LABS: Glucose,Whole Blood 305 mg/dL (75-99)
[2018-05-17 20:43] LABS: Glucose,Whole Blood 277 mg/dL (75-99)
[2018-05-17] MEDS: amLODIPine 5 MG TAB PO SCH (21:48)
[2018-05-17] MEDS: LEVOTHYROXINE 50 MCG TAB PO SCH (21:49)
[2018-05-17] MEDS: MONTELUKAST 10 MG TAB PO SCH (21:49)
[2018-05-18] MEDS: PIPERACILLIN-TAZOBACTAM 3.375 GM in DEXTROSE/WATER 1 50ML.BAG IVPB SCH ×4 (00:34→23:06)
[2018-05-18] MEDS: methylPREDNISolone SOD SUCCI 125 MG/2 ML VIAL IV SCH (00:34)
[2018-05-18] MEDS: HYDROcodone/APAP 10-325MG 1 EACH TAB PO PRN ×5 (03:42→23:06)
[2018-05-18 07:28] LABS: Glucose,Whole Blood 378 mg/dL (75-99)
[2018-05-18] MEDS: INSULIN ASPART 100 UNIT/ML 1 ML 10 ML VIAL SQ SCH ×4 (08:08→21:58)
[2018-05-18] MEDS: ETODOLAC 400 MG TAB PO SCH ×2 (08:09→20:35)
[2018-05-18] MEDS: APIXABAN 5 MG TAB PO SCH ×2 (08:09→20:34)
[2018-05-18] MEDS: GABAPENTIN 400 MG CAP PO SCH ×4 (08:10→20:37)
[2018-05-18] MEDS: FUROSEMIDE 20 MG TAB PO SCH (08:10)
[2018-05-18] MEDS: LEVOFLOXACIN 750 MG TAB PO SCH (08:11)
[2018-05-18] MEDS: LORATADINE 10 MG TAB PO SCH (08:11)
[2018-05-18] MEDS: POTASSIUM CHLORIDE ER 20 MEQ TAB.ER PO SCH (08:11)
[2018-05-18] MEDS: HYDROCORTISONE 20 MG TAB PO SCH (08:11)
[2018-05-18] MEDS: LISINOPRIL 5 MG TAB PO SCH (08:11)
[2018-05-18] MEDS: METOPROLOL TARTRATE 25 MG TAB PO SCH ×2 (08:12→20:37)
[2018-05-18] MEDS: CLOTRIMAZOLE/BETAMETH 1-0.05% CREAM 45 GM TUBE TOPICAL SCH ×2 (08:12→20:35)
[2018-05-18] MEDS: DULoxetine HCL 30 MG CAPSULE.DR PO SCH ×2 (08:12→20:35)
[2018-05-18] MEDS: DOCUSATE 100 MG CAP PO SCH (08:12)
[2018-05-18] MEDS: FLUTICASONE 50MCG/SPRAY NASAL 16GM EA NOSTRIL SCH (08:13)
[2018-05-18] MEDS: ALBUTEROL NEBULIZED 2.5 MG/3 ML INHALATION PRN ×4 (08:16→19:15)
[2018-05-18] MEDS: BUDESONIDE 0.5 MG/2 ML NEBU INHALATION SCH ×2 (08:16→19:15)
[2018-05-18] MEDS: INSULIN DETEMIR 100 UNIT/ML 10 ML VIAL SQ SCH ×2 (08:23→21:58)
[2018-05-18 11:40] LABS: Glucose,Whole Blood 453 mg/dL (75-99)
[2018-05-18 11:40] LABS: Glucose,Whole Blood 478 mg/dL (75-99)
[2018-05-18] MEDS ORDERED: INSULIN ASPART 100 UNIT/ML 1 ML 10 ML VIAL SQ ONE (11:52)
[2018-05-18] MEDS: SODIUM CHLORIDE 0.9% 1,000 ML IV SCH (14:16)
--- NOTE | 2018-05-18 15:40 | PN ---
PROGRESS NOTE Patient is feeling much better today. Did receive a dose of steroids and is breathing better. Feels good. Appetite is back. I reviewed the sputum cultures and all are well with nothing new other than the previous E coli from the sputum culture and also some yeast. The patient had a nurse slip here 2 days ago and is very upset about being on a bed alarm. I told him at this point he is not to get up without appreciation of the help of the help of either an aid or the nurse. I explained the importance of not falling here in the hospital or at home and on the precautions that are necessary. He did have a very high blood sugar up to 453 and after investigation, it was seen that he did receive steroids times a dose per Dr. Julio and he actually received the official 3rd dose today. Microbiology again, blood cultures came back negative. His sputum with positive E coli. Bronchial washings show some Radha and cytology was basically negative. His acid-fast bacillus is negative and his fungal culture is actually in progress. At this time, blood pressure 129/76, heart rate is in 70s, respiratory rate is 18, and temperature is 98. EYES: Pupils are equal, round, react to light accommodation. ENT showed tympanic membranes and pharynx to be negative. Neck is supple with a midline trachea. Chest essentially clear to auscultation. Heart is sinus rhythm with no murmur. Abdomen is soft, nontender with no organomegaly and minimal swelling in the lower legs. His I and Os are without documentation at this time. He has not had a daily weight. MEDICATIONS: Reviewed and were his [place] 10 q.4-6 hours as needed for pain, Ventolin updrafts, Norvasc 5 mg, Eliquis 5 mg b.i.d., Pulmicort 0.5 twice a day in updraft, Colace 100 daily. Lotrisone topical cream p.r.n., Cymbalta 30 mg b.i.d., Lodine 400 mg b.i.d., fentanyl patch 25 q.72 hours, Flonase nasal spray 2 sprays daily, Lasix 20 daily, Neurontin 800 q.i.d., Cortef 20 mg a day, insulin now has been 30 units at at bedtime and 30 units in the morning with insulin to scale, Levaquin 750 mg, thyroid 0.5 Zestril 5 mg, Claritin 10 mg, Lopressor 25 twice a day, Singulair 10 mg a day, Zinc oxide to the buttocks with Optifoam, piperacillin-tazobactam 3.375 IV push q.8, 20 of potassium and insulin to scale and he received Solu-Medrol of 60 mg x3. REVIEW OF SYSTEMS: PSYCHIATRIC: Very irritable today, very anxious and somewhat mad about being limited from ambulating. Really no depression or anxiety. EYES: Not able to see well. ENT is within normal limits. NECK: Supple with midline trachea. RESPIRATORY: No shortness of breath. No cough. CARDIAC: Negative palpitations, orthopnea, no PND. No chest pain. GI: No hematemesis, melena or hematochezia. No nausea, no vomiting. Urinary is without urination. INTEGUMENTARY: Decubiti on the buttocks and also some bruising on his extremities. Allergy is positive nasally, long-standing allergic rhinitis. PHYSICAL EXAMINATION: Blood pressure 126/80. The heart rate is in the 70s, temperature is 97, O2 is 95 on 2 L. EYES: Pupils are equal, round, react to light accommodation. ENT showed tympanic membranes and pharynx to be negative. Neck is supple with midline trachea. Chest is essentially clear to auscultation. Heart is sinus rhythm with no murmur. Abdomen is soft, nontender with no organomegaly. Optifoam to the buttocks, +2 swelling of the lower legs. ASSESSMENT: 1. Right infrahilar pneumonia. 2. Previous hospitalizations for right lower lobe pneumonia, paroxysmal atrial fibrillation, recent sepsis, previous MRSA, positive sputum for E coli. Awaiting fungal culture results but bronch does show some Radha. 3. Type 2 diabetes elevated secondary to 3 doses of steroids with insulin adjustment. 4. Chronic systolic heart failure with ECF between 30 and 40%. 5. Chronic micro hypochromic anemia, still etiology unclear, but stable. Colonoscopy was to be done on 03/2018. 6. History of a pancreatic tail neuroendocrine tumor thought to be benign, so follow up with scan with Dr. Lr. 7. Adrenal insufficiency, chronic in nature. 8. Osteoarthritis. 9. Obesity. 10.Type 2 diabetes. PLAN: Continue the same medications and await the culture. Adjustment on the insulin to 30 and 30 and insulin to scale. Please refer my orders. I spent 30 minutes plus with this patient at this time. JUJU / AAKNKSHA: [id number] /
--- NOTE | 2018-05-18 16:22 | PN ---
PROGRESS NOTE He was seen on 05/18/2018. He is less short of breath. On physical examination, vitals are stable. He is afebrile. His chest reveals no wheezing today. Cardiovascular system reveals a S1, S2. Abdomen is soft. There is no pedal edema. Bronchial washing cultures have showed Radha albicans. Gram stain and sputum prior to that showed E coli. IMPRESSION: At this time: 1. Gram-negative pneumonia. 2. Asthma with chronic obstructive pulmonary disease with acute exacerbation. 3. Medical debility. Give him 2 more doses of Solu-Medrol. Continue aerosolized steroids. Continue antibiotics. Increase her activity level. His prognosis is fair. MMODL / IJN: [id number] /
[2018-05-18 16:58] LABS: Glucose,Whole Blood 221 mg/dL (75-99)
[2018-05-18] MEDS: amLODIPine 5 MG TAB PO SCH (20:34)
[2018-05-18] MEDS: LEVOTHYROXINE 50 MCG TAB PO SCH (20:36)
[2018-05-18] MEDS: MONTELUKAST 10 MG TAB PO SCH (20:37)
[2018-05-18 21:47] LABS: Glucose,Whole Blood 278 mg/dL (75-99)
[2018-05-19 07:35] LABS: Glucose,Whole Blood 160 mg/dL (75-99)
[2018-05-19] MEDS: INSULIN ASPART 100 UNIT/ML 1 ML 10 ML VIAL SQ SCH ×4 (08:27→21:46)
[2018-05-19] MEDS: PIPERACILLIN-TAZOBACTAM 3.375 GM in DEXTROSE/WATER 1 50ML.BAG IVPB SCH ×3 (08:27→23:04)
[2018-05-19] MEDS: FUROSEMIDE 20 MG TAB PO SCH (08:28)
[2018-05-19] MEDS: POTASSIUM CHLORIDE ER 20 MEQ TAB.ER PO SCH (08:28)
[2018-05-19] MEDS: LORATADINE 10 MG TAB PO SCH (08:28)
[2018-05-19] MEDS: ETODOLAC 400 MG TAB PO SCH ×2 (08:29→20:08)
[2018-05-19] MEDS: METOPROLOL TARTRATE 25 MG TAB PO SCH ×2 (08:29→20:08)
[2018-05-19] MEDS: LEVOFLOXACIN 750 MG TAB PO SCH (08:29)
[2018-05-19] MEDS: ALBUTEROL NEBULIZED 2.5 MG/3 ML INHALATION PRN ×4 (08:29→20:19)
[2018-05-19] MEDS: BUDESONIDE 0.5 MG/2 ML NEBU INHALATION SCH ×2 (08:29→20:19)
[2018-05-19] MEDS: LISINOPRIL 5 MG TAB PO SCH (08:30)
[2018-05-19] MEDS: HYDROcodone/APAP 10-325MG 1 EACH TAB PO PRN ×4 (08:37→23:04)
[2018-05-19] MEDS: HYDROCORTISONE 20 MG TAB PO SCH (08:39)
[2018-05-19] MEDS: GABAPENTIN 400 MG CAP PO SCH ×4 (08:39→20:08)
[2018-05-19] MEDS: DOCUSATE 100 MG CAP PO SCH ×2 (08:39→08:41)
[2018-05-19] MEDS: APIXABAN 5 MG TAB PO SCH ×2 (08:39→20:07)
[2018-05-19] MEDS: DULoxetine HCL 30 MG CAPSULE.DR PO SCH ×2 (08:39→20:08)
[2018-05-19] MEDS: CLOTRIMAZOLE/BETAMETH 1-0.05% CREAM 45 GM TUBE TOPICAL SCH ×2 (08:40→20:08)
[2018-05-19] MEDS: FLUTICASONE 50MCG/SPRAY NASAL 16GM EA NOSTRIL SCH (08:40)
--- NOTE | 2018-05-19 11:26 | PN ---
PROGRESS NOTE A 57-year-old white male who was admitted with apparent recurrent pneumonia. He has been doing quite poorly at home with fever, chills. He is brought to the emergency room, evaluated with 17,000 white count and pneumonia new just below the hilar area on the right. At that time, he was initially started on Levaquin and Zosyn and he continued to improve. He did have days of lethargy of which then Dr. Morton, business operations specialist, took him for bronchoscopy and removed a large plug. Microbiology from that and basic the culture came back negative with the fungal culture still pending. Previous to that, his sputum showed positive E coli and also some cytology was basically negative. Acid-fast was negative. The patient is feeling better today. Medications remain unchanged other than due to the fact he had some wheezing. Dr. HARSH Julio, covering for Dr. Morton at this time, placed him on steroids three doses of 60 mg. He improved considerably. At this period of time there are still no changes in culture. His blood sugars were rather high. We increased his Lantus to 30 mg b.i.d., and he has responded with a blood sugar this morning of 146. REVIEW OF SYSTEMS: PSYCHIATRY: He is not very irritable today. He is not anxious. He really has no depression or anxiety. EYES: He is seeing very well today. ENT is normal. NECK: He has no problems swallowing. RESPIRATORY: No shortness of breath or cough. CARDIAC: No orthopnea, no proximal nocturnal dyspnea. No palpitations. No chest pain. GI: No hematemesis, melena or hematochezia. No nausea, no vomiting, no constipation. URINARY: System is normal urination. INTEGUMENTARY: Decubiti on buttocks and has been watched accordingly. ALLERGIES: Positive for long-standing allergic rhinitis. PHYSICAL EXAMINATION: Blood pressure 120/60. The heart rate is in the 70s, O2 sats 95 on 2 L and temperature is 97, respiratory rate is 18 per minute. EYES: Pupils are equal, round, reactive to accommodation. ENT: Showed tympanic membranes and pharynx to be negative. NECK: Supple with a midline trachea. CHEST: Clear to auscultation. HEART: Sinus rhythm with no murmur. ABDOMEN: Soft, nontender with no organomegaly. Optifoam to the buttocks. +2 swelling of lower extremities. PSYCHIATRIC: No evidence of depression. ASSESSMENT: 1. Right hip from hilar pneumonia. 2. Previous hospitalization for right lower lobe pneumonia. 3. Paroxysmal atrial fib. 4. Recent sepsis, positive MRSA. 5. Type 2 diabetes with an elevation of blood sugars with 3 doses of steroids and insulin adjustment accordingly. 6. Chronic systolic heart failure. EF between 30 and 40. 7. Chronic microcytic anemia. 8. 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 The patient is seeing Dr. rL at this time. We are attempting to get a MRI scan completed, but would be better to do it at [facility] where Dr. Lr is located. 9. Adrenal insufficiency, chronic in nature with Cortef use. 10.Osteoarthritis. 11.Generalized obesity. PLAN: Will continue the same, wait for finalized culture. We will review with Dr. Cuevas and Dr. HARSH Julio who is covering. The patient probably will not be discharged until the morning. MMODL / IJN: [id number] /
[2018-05-19 12:13] LABS: Glucose,Whole Blood 107 mg/dL (75-99)
--- NOTE | 2018-05-19 12:38 | PN ---
PROGRESS NOTE He was seen on 05/19/2018. He has been hemodynamically stable. He seems less short of breath and more comfortable. On physical examination, his vitals are stable. He is afebrile. Chest is relatively clear. Cardiovascular system reveals S1, S2. Abdomen is soft. There is no edema. Labs were reviewed including microbiology which is growing Radha albicans from the sputum. IMPRESSION: At this time: 1. Gram-negative pneumonia secondary to E coli. 2. Asthma, chronic obstructive pulmonary disease with acute exacerbation. Continue him on his current medications. May not require any further systemic steroids at this time, but will continue inhaled steroids and montelukast. Continue antibiotics. His prognosis at this time is fair. MMODL / IJN: [id number] /
[2018-05-19] MEDS: SODIUM CHLORIDE 0.9% 1,000 ML IV SCH (13:00)
[2018-05-19 17:16] LABS: Glucose,Whole Blood 163 mg/dL (75-99)
[2018-05-19] MEDS: amLODIPine 5 MG TAB PO SCH (20:07)
[2018-05-19] MEDS: LEVOTHYROXINE 50 MCG TAB PO SCH (20:08)
[2018-05-19] MEDS: MONTELUKAST 10 MG TAB PO SCH (20:08)
[2018-05-19 21:42] LABS: Glucose,Whole Blood 213 mg/dL (75-99)
[2018-05-19] MEDS: INSULIN DETEMIR 100 UNIT/ML 10 ML VIAL SQ SCH (21:46)
[2018-05-20] MEDS: BUDESONIDE 0.5 MG/2 ML NEBU INHALATION SCH (07:17)
[2018-05-20 08:15] LABS: Glucose,Whole Blood 66 mg/dL (75-99)
[2018-05-20 08:30] LABS: Glucose,Whole Blood 120 mg/dL (75-99)
[2018-05-20] MEDS: INSULIN ASPART 100 UNIT/ML 1 ML 10 ML VIAL SQ SCH ×2 (08:39→14:32)
[2018-05-20 09:04] VITALS: BP 121/65; RESP 18; TEMP 98.5
[2018-05-20] MEDS: PIPERACILLIN-TAZOBACTAM 3.375 GM in DEXTROSE/WATER 1 50ML.BAG IVPB SCH (09:09)
[2018-05-20] MEDS: HYDROcodone/APAP 10-325MG 1 EACH TAB PO PRN ×2 (09:10→14:47)
[2018-05-20] MEDS: CLOTRIMAZOLE/BETAMETH 1-0.05% CREAM 45 GM TUBE TOPICAL SCH (09:10)
[2018-05-20] MEDS: DOCUSATE 100 MG CAP PO SCH (09:10)
[2018-05-20] MEDS: GABAPENTIN 400 MG CAP PO SCH ×2 (09:11→14:32)
[2018-05-20] MEDS: ETODOLAC 400 MG TAB PO SCH (09:11)
[2018-05-20] MEDS: DULoxetine HCL 30 MG CAPSULE.DR PO SCH (09:11)
[2018-05-20] MEDS: FLUTICASONE 50MCG/SPRAY NASAL 16GM EA NOSTRIL SCH (09:11)
[2018-05-20] MEDS: HYDROCORTISONE 20 MG TAB PO SCH (09:12)
[2018-05-20] MEDS: LORATADINE 10 MG TAB PO SCH (09:12)
[2018-05-20] MEDS: FUROSEMIDE 20 MG TAB PO SCH (09:12)
[2018-05-20] MEDS: LISINOPRIL 5 MG TAB PO SCH (09:12)
[2018-05-20] MEDS: LEVOFLOXACIN 750 MG TAB PO SCH (09:12)
[2018-05-20] MEDS: POTASSIUM CHLORIDE ER 20 MEQ TAB.ER PO SCH (09:13)
[2018-05-20] MEDS: METOPROLOL TARTRATE 25 MG TAB PO SCH ×2 (09:13→11:14)
[2018-05-20] MEDS ORDERED: cefTRIAXone IN SWFI 2,000 MG/20 ML SYRINGE IVP SCH (09:15)
[2018-05-20] MEDS: ALBUTEROL NEBULIZED 2.5 MG/3 ML INHALATION PRN (11:05)
[2018-05-20 11:08] VITALS: PULSE 60
--- NOTE | 2018-05-20 11:09 | P.DS ---
Providers Date of admission: 05/12/18 13:03 Expected date of discharge: 05/20/18 Attending physician: Bautista Romero Consults: 05/12/18 12:46 Consult Physician Stat Consulting Provider: Ag Morton Consult Reason/Comments: recurrent pneumonia Do you want consulting provider notified?: Yes Consult Physician Stat Consulting Provider: Bran Hardin Consult Reason/Comments: recurrent pneumonia Do you want consulting provider notified?: Yes Primary care physician: Bautista Romero Hospital Course: 57-year-old male who presented to the emergency room with a chief complaint of increasing cough and fever. The patient was just hospitalized from 04/29/2018 until 05/05/2018 for right lower lobe pneumonia. The patient was seen by infectious disease and pulmonary at that time. He was discharged home on a 7 day course of Levaquin per infectious disease recommendations. The patient also had a previous hospital admission from 04/08/2018 until 04/16/2018 secondary to pneumonia and sepsis. The patient had a PICC line placed at that time and was discharged home on vancomycin. The patient states he was doing well at home after discharge. He reports last , May 08, 2018 he came to the emergency room for a fever of 100.0. His had given him motrin and he was afebrile when they arrived to the hospital so they decided not to be evaluated and returned home. Patient was afebrile since that time until yesterday evening when he developed a fever of 102F. He also reports increased coughing that started yesterday evening. He reports sputum production and states sometimes it is brownish and sometimes it is clear. He denies shortness of breath. He reports using home oxygen 2L NC at home. He checks his pulse ox and states it is always over 92% while wearing oxygen. Denies chest pain or pressure. Denies nausea or vomiting. Denies dizziness or lightheadedness. Denies change in bowel habits. Denies constipation or diarrhea. Reports good appetite. Denies unintentional weight loss. 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 He has also had a myocardial infarction 2006 and 2007. His past surgical history includes bowel resection, cholecystectomy, coronary artery bypass graft, heart catheterization with multiple stents, hernia repair, and joint replacements. He has had multiple hospitalizations for pneumonia and sepsis. The patients LFTs were elevated during previous hospitalization, but were trending downward. His LFTs this admission are elevated. Records were obtained from Dr. Boo office during last hospitalization. Patient was last seen in their office in August 2017. According to Dr. Mcgrath's dictation patient has a history of pancreatic tail neuroendocrine tumor. Surgical options were discussed with patient, although Dr. Mcgrath did mention patient was not a great surgical candidate. The patient and his decided against surgical intervention. The patient had a CT scan in 08/2017 of his abdomen and pelvis which revealed several small geographic areas of hypodensity in the subcapsular region of both liver lobes, with overlying mild capsular retraction. These areas are larger and new from prior exam. Dr. Mcgrath recommended 6 month follow up with octreoscan to make determination of liver issue. The patient was supposed to have this imaging completed this month but was hospitalized at that time. Patient has not scheduled an appointment to have testing completed. Chest xray: Patchy right infrahilar infiltrates which may reflect a pneumonia. Laboratory data on admission reveals white count of 17.5. Hemoglobin 8.3. Platelet count 290. Neutrophils 15.1. Sodium 143. Potassium 4.1. BUN 34. Creatinine 1.35. AST 201. ALT 126. Lactic acid 2.1. The patient did receive 2 L of normal saline boluses in the emergency room. Urinalysis reveals 1+ proteinuria, 2+ bilirubin, trace leukocyte esterase The patient was started on antibiotics in the form of Levaquin and Zosyn. He was evaluated by infectious disease during hospitalization. Sputum culture was positive for E. coli. Blood cultures have been negative at the 144 hour solange. The patient did undergo a therapeutic bronchoscopy on 05/15/2018. Multiple mucous plugs were visualized per procedure report. Bronchial washings culture is positive for Jumana albicans. The patient's liver enzymes were elevated during hospitalization. Patient follows downtown with Dr. Mcgrath. Dr. Salas, GI, was consulted during hospitalization to evaluate patient's elevated liver enzymes. Per GI, elevated liver enzymes may be due to antibiotics. GI recommends patient follows up outpatient with his regular physician, Dr. Mcgr[facility], [facility]. Patient agreeable. The patient's respiratory status has improved during hospitalization and is back to his baseline. The patient was deemed stable for discharge. The patient was discharged on Rocephin 2 g daily for 14 days as recommended by infectious disease. The patient's PICC line was malfunctioning during hospitalization. The patient is to receive a midline catheter today before discharge home. Case management has arranged outpatient antibiotic infusions. DISCHARGE DIAGNOSIS: Right infrahilar pneumonia, suspect hospital-acquired, sputum culture positive for E. coli, s/p bronch with BAL, culture positive for jumana Sepsis, present on admission, secondary to above, improving Recent hospitalization for right lower lobe pneumonia 04/29/2018-05/05/2018, discharged home on 7 day course of Levaquin Recent hospitalization for sepsis and pneumonia, discharged 04/16/2018 on 10 day regimen of Vancomycin Paroxysmal atrial fibrillation, maintained on long-term anticoagulation with Eliquis Coronary artery disease with previous coronary artery bypass grafting and previous stent placement Diabetes mellitus type II Multiple previous hospital admissions for pneumonia and sepsis Obstructive sleep apnea, Patient reports compliance with CPAP Chronic systolic congestive heart failure, EF 35-40% Microcytic hypochromic anemia, etiology unclear, patient was to have colonoscopy 03/2018 but unable to have procedure due to fevers and weakness. 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 Mcgrath, patient declined surgical intervention Transaminitis, etiology unclear, may be secondary to pancreatic tail neuroendocrine tumor and/or several areas of hypodensity in subcapsular region of both liver lobes, patient follows outpatient with Dr. Mcgrath. May be related to antibiotics per Dr. Salas. Chronic adrenal insufficiency, maintained on Cortef Previous cellulitis with MRSA History of MRSA pneumonia Hyperlipidemia Osteoarthritis Hypothyroidism Obesity: BMI 34.1 Stage 2 pressure ulcer of buttocks, present on admission Nurse practitioner note has been reviewed by physician. Signing provider agrees with the documented findings, assessment, and plan of care. Patient Condition at Discharge: Stable Plan - Discharge Summary Discharge Rx Participant: Yes New Discharge Prescriptions: New cefTRIAXone [Rocephin] 2,000 mg IVPB Q24HR #14 vial Continue Levothyroxine Sodium [Synthroid] 50 mcg PO HS Omeprazole [PriLOSEC] 20 mg PO BID Nitroglycerin Sl Tabs [Nitrostat] 0.4 mg SUBLINGUAL Q5M PRN PRN Reason: Chest Pain Furosemide [Lasix] 20 mg PO DAILY amLODIPine [Norvasc] 5 mg PO HS Gabapentin [Neurontin] 800 mg PO QID fentaNYL 25MCG/HR PATCH [Duragesic 25MCG/HR] 1 patch TRANSDERM Q72H HYDROcodone/APAP 10-325MG [[place] 10-325] 1 tab PO Q4HR PRN PRN Reason: Pain Montelukast [Singulair] 10 mg PO HS #30 tab Insulin Aspart [NovoLOG Flexpen] See Protocol SQ ACHS Multivit-Min/FA/Lycopen/Lutein [Centrum Silver Tablet] 1 tab PO DAILY DULoxetine HCL [Cymbalta] 30 mg PO BID Insulin Glargine [Lantus] 26 unit SQ BID Etodolac [Lodine] 400 mg PO BID Atorvastatin [Lipitor] 80 mg PO HS Apixaban [Eliquis] 5 mg PO BID #60 tab Metoprolol Tartrate [Lopressor] 25 mg PO BID #60 tab Lisinopril [Zestril] 5 mg PO QAM Hydrocortisone [Cortef] 20 mg PO QAM Clotrimazole/Betameth Cream [Lotrisone] 1 applic TOPICAL BID #1 applic Loratadine [Claritin] 10 mg PO DAILY #30 tab Potassium Chloride ER [K-Dur 20] 20 meq PO DAILY #30 tab Discontinued Levofloxacin [Levaquin] 750 mg PO DAILY #7 tab Discharge Medication List Levothyroxine Sodium [Synthroid] 50 mcg PO HS 02/01/14 [History] Nitroglycerin Sl Tabs [Nitrostat] 0.4 mg SUBLINGUAL Q5M PRN 02/01/14 [History] Omeprazole [PriLOSEC] 20 mg PO BID 02/01/14 [History] Furosemide [Lasix] 20 mg PO DAILY 05/13/15 [History] Gabapentin [Neurontin] 800 mg PO QID 05/13/15 [History] amLODIPine [Norvasc] 5 mg PO HS 05/13/15 [History] HYDROcodone/APAP 10-325MG [[place] 10-325] 1 tab PO Q4HR PRN 07/17/16 [History] fentaNYL 25MCG/HR PATCH [Duragesic 25MCG/HR] 1 patch TRANSDERM Q72H 07/17/16 [ History] Montelukast [Singulair] 10 mg PO HS #30 tab 11/21/16 [Rx] Insulin Aspart [NovoLOG Flexpen] See Protocol SQ ACHS 02/10/17 [History] Multivit-Min/FA/Lycopen/Lutein [Centrum Silver Tablet] 1 tab PO DAILY 02/10/17 [ History] DULoxetine HCL [Cymbalta] 30 mg PO BID 09/25/17 [History] Etodolac [Lodine] 400 mg PO BID 09/25/17 [History] Insulin Glargine [Lantus] 26 unit SQ BID 09/25/17 [History] Atorvastatin [Lipitor] 80 mg PO HS 02/05/18 [History] Apixaban [Eliquis] 5 mg PO BID #60 tab 02/13/18 [Rx] Metoprolol Tartrate [Lopressor] 25 mg PO BID #60 tab 02/13/18 [Rx] Hydrocortisone [Cortef] 20 mg PO QAM 04/07/18 [History] Lisinopril [Zestril] 5 mg PO QAM 04/07/18 [History] Clotrimazole/Betameth Cream [Lotrisone] 1 applic TOPICAL BID #1 applic 05/05/18 [Rx] Loratadine [Claritin] 10 mg PO DAILY #30 tab 05/05/18 [Rx] Potassium Chloride ER [K-Dur 20] 20 meq PO DAILY #30 tab 05/05/18 [Rx] cefTRIAXone [Rocephin] 2,000 mg IVPB Q24HR #14 vial 05/20/18 [Rx] Follow up Appointment(s)/Referral(s): Bran Hardin MD [STAFF PHYSICIAN] - 2 Weeks Bautista Romero MD [Primary Care Provider] - 1-2 days [facility],Nurse [NON-STAFF] - Ag Morton MD [STAFF PHYSICIAN] - 1 Week Ambulatory/Diagnostic Orders: Complete Blood Count w/diff [LAB.AMB] Time Frame: 1 Week, Location: None Selected Comprehensive Metabolic Panel [LAB.AMB] Time Frame: 1 Week, Location: None Selected Patient Instructions/Handouts: *Surgery [facility] - (Anesthesia) Endoscopy Discharge Instructions, Heart Failure (GEN), Pneumonia (DC)
[2018-05-20] MEDS: APIXABAN 5 MG TAB PO SCH (11:12)
[2018-05-20 12:27] LABS: Glucose,Whole Blood 84 mg/dL (75-99)
[2018-05-20] MEDS: SODIUM CHLORIDE 0.9% 1,000 ML IV SCH (14:32)
--- NOTE | 2018-05-20 17:21 | P.PN ---
Subjective Progress Note Date: 05/20/18 Principal diagnosis: Right lower lobe healthcare associated pneumonia likely mixed bacterial and/or or gram-negative related, sepsis associated above, hemoptysis multifactorial, altered mental status again multifactorial likely related to above, intravascular volume depletion and dehydration, sleep disorder breathing and sleep apnea and, cardiomyopathy with baseline ejection fraction 35%, neuroendocrine tumor of the pancreatic tail, chronic microcytic anemia, elevated liver enzymes 05/20/2018, patient seen eval reexamined during the rounds clinically patient has been doing better patient is for patient is for midline IV and Rocephin for 14 days as per recommendation infectious disease services, from [facility] standpoint cough congestion is significantly improved patient likely will be discharged 05/15/2018, patient seen eval examined during the rounds clinically doing well awake and alert breathing comfortably the anticoagulation is on hold patient is scheduled for bronchoscopy later on today procedure has been explained to the patient at length, her sputum is positive for E. coli which is resistant to multiple agents, blood cultures are negative 05/14/2018, patient seen eval examined during the rounds cuff congestion shortness of breath still present but severity has improved, anticoagulation is on hold for anticipated bronchoscopy tomorrow noted evaluation and recommendation of GI services, procedure bronchoscopy has been explained to the patient and at length 57-year-old male was seen evaluated examined on fourth floor this patient admitted into the hospital with 2 day history of increasing spiking fever along with cuff congestion shortness of breath patient has been found to have a pneumonia patient does have a very thick purulent sputum production he is on multiple broad-spectrum antibiotics ID service is following, sputum for Gram stain is positive for many gram-negative bacilli final ID hours pending, patient intermittently has noted a few streaks of blood off and on appears to be related to airway inflammation also forceful coughing, admitted x-rays positive patchy right lower lobe infiltrate Review of the data revealed that patient was discharged on May 05 and has been taking oral Levaquin. He states today is day 7 of this medication. Patient states that previously he was on at-home IV vancomycin. Patient reports that last evening and this morning his cough seemed worse. He reports having a temperature of almost [address] His called Dr. Romero and he recommended that patient reported to the emergency department. He denies chest pain or shortness of breath, abdominal pain, nausea or vomiting, diarrhea or constipation, dysuria or hematuria. Objective - Vital Signs Vital signs: Vital Signs Temp 98.5 F 05/20/18 07:00 Pulse 60 05/20/18 11:18 Resp 18 05/20/18 07:00 BP 121/65 05/20/18 07:00 Pulse Ox 99 05/20/18 07:00 Intake & Output 05/19/18 05/20/18 05/20/18 18:59 06:59 18:59 Intake Total 360 Balance 360 Intake: Oral 360 Other: Voiding Method Toilet # Voids 1 2 # Bowel Movements 1 1 - Exam General: Awake and alert, well-developed; in no apparent distress. Lying comfortable in ED stretcher with at bedside. HEENT: Head atraumatic, normocephalic. Pupils are equal, round and reactive to light. Extraocular movements intact. Oropharynx moist without erythema or exudate. Neck: Supple. Normal ROM. Cardiovascular: Regular rate and rhythm. No murmurs, rubs or gallops. Chest symmetrical. Respiratory: Normal respiratory effort with no use of accessory muscles. On 2L O2 nasal cannula. Diffuse rales. No rhonchi or wheezes. Abdomen: Soft, non-tender, non-distended. No rigidity, rebound or guarding. Normal bowel sounds in all 4 quadrants. Musculoskeletal: Normal ROM bilateral upper and lower extremities. 3+ pitting edema bilateral lower extremities. Skin: [place], warm and dry. Neurological: Alert and oriented x3. CN II-XII grossly intact. Speech is fluent and answers are appropriate. No focal neuro deficits. Psychiatric: Normal mood and affect. No overt signs of depression or anxiety noted. - Labs CBC & Chem 7: 05/17/18 07:44 05/17/18 07:44 Labs: Abnormal Lab Results - Last 24 Hours (Table) 05/19/18 05/19/18 05/20/18 Range/Units 17:12 21:41 07:47 POC Glucose (mg/dL) 163 H 213 H 66 L (75-99) mg/dL 05/20/18 Range/Units 08:16 POC Glucose (mg/dL) 120 H (75-99) mg/dL Microbiology - Last 24 Hours (Table) 05/15/18 14:10 Fungal Culture - Preliminary Bronchial Washings - Right Radha albicans Assessment and Plan Assessment: Right lower lobe healthcare associated pneumonia due to gram-negative E. coli Right lower lobe healthcare associated pneumonia with severe sepsis Hemoptysis likely related to airway inflammation and pneumonia Altered mental status related to above Intravascular volume depletion and dehydration improved with fluid resuscitation Severe degree of sleep disorder breathing and sleep apnea Ischemic cardiomyopathy with chronic systolic heart failure baseline ejection fraction of 35% Chronic microcytic and anemia History of neuroendocrine tumor of pancreatic tail Plan: Broad-spectrum antibiotics I agree with long-term IV antibiotics with Rocephin for another 2 weeks Follow-up in office in 1-2 weeks BiPAP utilization Anticoagulation for atrial fibrillation Time with Patient: Greater than 30
== END 2018-05-20 14:49 | disposition home health service (06) | DRG 853 ==
LOC: EC 10:53 → 4MS4W 13:03
PROVIDERS: ADMIT Family Medicine; ATTEND Family Medicine
PROC: 0B9F8ZX Drainage of Right Lower Lung Lobe, Via Natural or Artificial Opening Endoscopic, Diagnostic (ICD-10-PCS; principal; 2018-05-12)
PROC: 0B9C8ZX Drainage of Right Upper Lung Lobe, Via Natural or Artificial Opening Endoscopic, Diagnostic (ICD-10-PCS; principal; 2018-05-12)
PROC: 0B9J8ZX Drainage of Left Lower Lung Lobe, Via Natural or Artificial Opening Endoscopic, Diagnostic (ICD-10-PCS; principal; 2018-05-12)
DX: A41.9 Sepsis, unspecified organism (principal); J15.5 Pneumonia due to Escherichia coli; E27.40 Unspecified adrenocortical insufficiency; I50.22 Chronic systolic (congestive) heart failure; J44.0 Chronic obstructive pulmonary disease with (acute) lower respiratory infection; J44.1 Chronic obstructive pulmonary disease with (acute) exacerbation; J45.901 Unspecified asthma with (acute) exacerbation; C7A.8 Other malignant neuroendocrine tumors; D50.9 Iron deficiency anemia, unspecified; E03.9 Hypothyroidism, unspecified; E11.42 Type 2 diabetes mellitus with diabetic polyneuropathy; E11.65 Type 2 diabetes mellitus with hyperglycemia; E66.9 Obesity, unspecified; Z68.34 Body mass index [BMI] 34.0-34.9, adult; E78.5 Hyperlipidemia, unspecified; E86.0 Dehydration; G47.33 Obstructive sleep apnea (adult) (pediatric); Z99.89 Dependence on other enabling machines and devices; I11.0 Hypertensive heart disease with heart failure; I25.10 Atherosclerotic heart disease of native coronary artery without angina pectoris; I25.2 Old myocardial infarction; I25.5 Ischemic cardiomyopathy; I48.0 Paroxysmal atrial fibrillation; K21.9 Gastro-esophageal reflux disease without esophagitis; K59.00 Constipation, unspecified; L89.302 Pressure ulcer of unspecified buttock, stage 2; M15.9 Polyosteoarthritis, unspecified; R65.20 Severe sepsis without septic shock; T17.990A Other foreign object in respiratory tract, part unspecified in causing asphyxiation, initial encounter; Y95 Nosocomial condition; R74.0 Nonspecific elevation of levels of transaminase and lactic acid dehydrogenase [LDH]; T36.95XA Adverse effect of unspecified systemic antibiotic, initial encounter; Z96.641 Presence of right artificial hip joint; Z16.23 Resistance to quinolones and fluoroquinolones; Z79.01 Long term (current) use of anticoagulants; Z79.4 Long term (current) use of insulin; Z80.1 Family history of malignant neoplasm of trachea, bronchus and lung; Z80.3 Family history of malignant neoplasm of breast; Z82.49 Family history of ischemic heart disease and other diseases of the circulatory system; Z83.3 Family history of diabetes mellitus; Z85.828 Personal history of other malignant neoplasm of skin; Z86.14 Personal history of Methicillin resistant Staphylococcus aureus infection; Z87.01 Personal history of pneumonia (recurrent); Z87.891 Personal history of nicotine dependence; Z90.49 Acquired absence of other specified parts of digestive tract; Z95.1 Presence of aortocoronary bypass graft; Z99.81 Dependence on supplemental oxygen; Z88.5 Allergy status to narcotic agent; Z88.8 Allergy status to other drugs, medicaments and biological substances
CPT/HCPCS: 31624; 36415; 36569; 71046; 76937; 80053; 81001; 83036; 83605; 84132; 85025; 87040; 87070; 87077; 87102; 87116; 87186; 87205; 87206; 87252; 87496; 87498; 87502; 87529; 87541; 87634; 87798; 88108; 88305; 94640; 94660; 94664; 96360; 96361; 99284

== ENCOUNTER 2018-05-22 07:54 | Inpatient (IN) | payer MEDICARE ==
[2018-05-22] MEDS ORDERED: SODIUM CHLORIDE 0.9% 1,000 ML IV STA (08:40)
[2018-05-22] MEDS ORDERED: ACETAMINOPHEN TAB 325 MG TAB PO STA (08:49)
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
[2018-05-22 09:25] LABS: Anisocytosis Moderate; Basophils % (A) 0 %; Eosinophils # (A) 0.9 k/uL (0-0.7); Eosinophils % (A) 7 %; HCT 28.2 % (39.0-53.0); HGB 8.2 gm/dL (13.0-17.5); Hypochromasia Marked; Lymphocytes # (A) 0.4 k/uL (1.0-4.8); Lymphocytes % (A) 3 %; MCH 21.6 pg (25.0-35.0); MCV 74.6 fL (80.0-100.0); Mean Platelet Volume 6.6; Microcytosis Moderate; Monocytes # (A) 0.4 k/uL (0-1.0); Monocytes % (A) 3 %; Neutrophils # (A) 11.4 k/uL (1.3-7.7); Neutrophils % (A) 86 %; Platelet Count 202 k/uL (150-450); Poikilocytosis Slight; RBC 3.78 m/uL (4.30-5.90); RDW 20.5 % (11.5-15.5); WBC 13.2 k/uL (3.8-10.6)
[2018-05-22 09:30] LABS: Appearance,Urine Clear (Clear); Bilirubin,Urine 2+ (Negative); Blood,Urine Negative (Negative); Color,Urine Yellow; Glucose,Urine (UA) Negative (Negative); Ketones,Urine Negative (Negative); Leukocyte Esterase,Urine Negative (Negative); Nitrite,Urine Negative (Negative); Protein,Urine 1+ (Negative); RBC,Urine 2 /hpf (0-5); Specific Gravity,Urine 1.018 (1.001-1.035); Squamous Epithelial Cell,Urine <1 /hpf (0-4); Urobilinogen,Urine <2.0 mg/dL (<2.0); WBC,Urine 2 /hpf (0-5)
[2018-05-22 09:37] LABS: INR 1.4 (<1.2); Partial Thromboplastin Time 26.3 sec (22.0-30.0); Prothrombin Time 13.3 sec (9.0-12.0)
[2018-05-22 09:47] LABS: Albumin 2.7 g/dL (3.5-5.0); Calcium 7.9 mg/dL (8.4-10.2); Magnesium 1.4 mg/dL (1.6-2.3); Potassium 3.9 mmol/L (3.5-5.1); Total Bilirubin 0.9 mg/dL (0.2-1.3); Total Protein 5.8 g/dL (6.3-8.2)
[2018-05-22] MEDS ORDERED: LEVOFLOXACIN 750MG-D5W PMX 750 MG in DEXTROSE/WATER 1 150ML.BAG IVPB STA (09:50)
[2018-05-22 10:04] LABS: Creatine Kinase MB 4.3 ng/mL (0.0-2.4); Troponin I 0.013 ng/mL (0.000-0.034)
--- NOTE | 2018-05-22 10:21 | XR ---
EXAMINATION TYPE: XR chest 2V DATE OF EXAM: 05/22/2018 COMPARISON: Prior chest x-ray 05/12/2018 HISTORY: Difficulty breathing, shortness of breath and fever TECHNIQUE: Frontal and lateral views of the chest are obtained. FINDINGS: Airspace disease is more confluent in the right lower lung as compared to previous exam. P atient is post median sternotomy. Postop change noted in the cervical spine. Heart is enlarged althou gh patient is rotated which makes accentuate the appearance. Difficult to exclude small effusion Ther e are overlying cardiac leads. IMPRESSION: Correlate for possible pneumonia or atypical presentation of congestive heart failure, f ollow-up recommended.
[2018-05-22] MEDS ORDERED: ALBUTEROL NEBULIZED 2.5 MG/3 ML INHALATION PRN (10:41)
[2018-05-22] MEDS ORDERED: PIPERACILLIN-TAZOBACTAM 3.375 GM in DEXTROSE/WATER 1 50ML.BAG IVPB STA (10:41)
[2018-05-22] MEDS ORDERED: PNEUMONIA PROTOCOL UTILIZED 1 EACH MISC PO PRN (10:41)
[2018-05-22] MEDS ORDERED: VANCOMYCIN IV PER PHARMACY 1 EACH MISC MISCELLANE PRN (10:42)
[2018-05-22] MEDS ORDERED: VANCOMYCIN 1,500 MG in SODIUM CHLORIDE 0.9% 250 ML IVPB STA (10:53)
[2018-05-22] MEDS: IPRATROPIUM-ALBUTEROL 3 ML NEB INHALATION SCH ×3 (11:27→19:16)
[2018-05-22] MEDS ORDERED: Magnesium Replacement Protocol 1 EACH MISC MISCELLANE PRN (12:21)
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
[2018-05-22] MEDS ORDERED: NITROGLYCERIN SL TABS 0.4 MG TAB SUBLINGUAL PRN (14:56)
[2018-05-22] MEDS: MAGNESIUM SULFATE-D5W PMX 1 GM in DEXTROSE/WATER 1 100ML.BAG IVPB SCH ×3 (15:19→18:33)
[2018-05-22] MEDS: HYDROcodone/APAP 10-325MG 1 EACH TAB PO PRN ×2 (15:23→21:39)
[2018-05-22 17:03] LABS: Glucose,Whole Blood 93 mg/dL (75-99)
[2018-05-22] MEDS: INSULIN ASPART 100 UNIT/ML 1 ML 10 ML VIAL SQ SCH ×2 (17:23→21:36)
[2018-05-22] MEDS: GABAPENTIN 400 MG CAP PO SCH ×2 (17:24→21:34)
[2018-05-22] MEDS: PIPERACILLIN-TAZOBACTAM 3.375 GM in DEXTROSE/WATER 1 50ML.BAG IVPB SCH (19:46)
[2018-05-22 20:38] LABS: Hemoglobin A1C 6.8 % (4.0-6.0)
[2018-05-22 21:03] LABS: Glucose,Whole Blood 112 mg/dL (75-99)
[2018-05-22] MEDS: DULoxetine HCL 30 MG CAPSULE.DR PO SCH (21:34)
[2018-05-22] MEDS: ATORVASTATIN 80 MG TAB PO SCH (21:34)
[2018-05-22] MEDS: PANTOPRAZOLE 40 MG TABLET PO SCH (21:35)
[2018-05-22] MEDS: MONTELUKAST 10 MG TAB PO SCH (21:35)
[2018-05-22] MEDS: ETODOLAC 400 MG TAB PO SCH (21:35)
[2018-05-22] MEDS: amLODIPine 5 MG TAB PO SCH (21:35)
[2018-05-22] MEDS: METOPROLOL TARTRATE 25 MG TAB PO SCH (21:35)
[2018-05-22] MEDS: LEVOTHYROXINE 50 MCG TAB PO SCH (21:35)
[2018-05-22] MEDS: CLOTRIMAZOLE/BETAMETH 1-0.05% CREAM 45 GM TUBE TOPICAL SCH (21:36)
[2018-05-22] MEDS: INSULIN DETEMIR 100 UNIT/ML 10 ML VIAL SQ SCH (21:38)
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
[2018-05-23] MEDS: HYDROcodone/APAP 10-325MG 1 EACH TAB PO PRN ×4 (01:30→19:59)
[2018-05-23] MEDS: PIPERACILLIN-TAZOBACTAM 3.375 GM in DEXTROSE/WATER 1 50ML.BAG IVPB SCH ×3 (06:12→19:57)
[2018-05-23 06:57] LABS: Glucose,Whole Blood 111 mg/dL (75-99)
[2018-05-23] MEDS: INSULIN ASPART 100 UNIT/ML 1 ML 10 ML VIAL SQ SCH ×4 (07:36→21:23)
[2018-05-23] MEDS: VANCOMYCIN 1,500 MG in SODIUM CHLORIDE 0.9% 250 ML IVPB SCH (07:52)
[2018-05-23] MEDS: CLOTRIMAZOLE/BETAMETH 1-0.05% CREAM 45 GM TUBE TOPICAL SCH ×2 (07:52→19:56)
[2018-05-23] MEDS: GABAPENTIN 400 MG CAP PO SCH ×4 (07:52→19:57)
[2018-05-23] MEDS: ETODOLAC 400 MG TAB PO SCH ×2 (07:52→19:58)
[2018-05-23] MEDS: DULoxetine HCL 30 MG CAPSULE.DR PO SCH ×2 (07:53→19:57)
[2018-05-23] MEDS: FUROSEMIDE 20 MG TAB PO SCH (07:53)
[2018-05-23] MEDS: HYDROCORTISONE 20 MG TAB PO SCH (07:53)
[2018-05-23] MEDS: LISINOPRIL 5 MG TAB PO SCH (07:54)
[2018-05-23] MEDS: POTASSIUM CHLORIDE ER 20 MEQ TAB.ER PO SCH (07:54)
[2018-05-23] MEDS: PANTOPRAZOLE 40 MG TABLET PO SCH ×2 (07:54→19:59)
[2018-05-23] MEDS: IPRATROPIUM-ALBUTEROL 3 ML NEB INHALATION SCH ×4 (07:57→19:28)
[2018-05-23 08:18] LABS: Anisocytosis Moderate; Basophils % (A) 0 %; Eosinophils # (A) 0.8 k/uL (0-0.7); Eosinophils % (A) 11 %; HCT 28.4 % (39.0-53.0); HGB 7.7 gm/dL (13.0-17.5); Hypochromasia Marked; Lymphocytes # (A) 0.5 k/uL (1.0-4.8); Lymphocytes % (A) 8 %; MCH 20.5 pg (25.0-35.0); MCHC 27.1 g/dL (31.0-37.0); MCV 75.8 fL (80.0-100.0); Mean Platelet Volume 7.2; Microcytosis Moderate; Monocytes # (A) 0.4 k/uL (0-1.0); Monocytes % (A) 5 %; Neutrophils # (A) 4.9 k/uL (1.3-7.7); Neutrophils % (A) 72 %; Platelet Count 217 k/uL (150-450); Poikilocytosis Slight; RBC 3.75 m/uL (4.30-5.90); WBC 6.8 k/uL (3.8-10.6)
[2018-05-23] MEDS: INSULIN DETEMIR 100 UNIT/ML 10 ML VIAL SQ SCH ×2 (08:28→21:24)
[2018-05-23] MEDS: LORATADINE 10 MG TAB PO SCH (08:29)
[2018-05-23] MEDS: METOPROLOL TARTRATE 25 MG TAB PO SCH ×2 (08:29→19:59)
[2018-05-23 08:38] LABS: Albumin 2.5 g/dL (3.5-5.0); Magnesium 1.9 mg/dL (1.6-2.3); Potassium 4.2 mmol/L (3.5-5.1); Total Bilirubin 0.8 mg/dL (0.2-1.3); Total Protein 5.5 g/dL (6.3-8.2)
[2018-05-23] MEDS ORDERED: LIDOCAINE 1% INJ 10MG/ML (20 ML MDV) SQ ONE (09:55)
--- NOTE | 2018-05-23 11:02 | P.PN ---
<Radha Paulson E - Last Filed: 05/23/18 11:00> Subjective Progress Note Date: 05/23/18 History of present illness: 57-year-old male who recently discharged from the hospital has been on IV Rocephin through midline for recurrent pneumonia patient has a polymicrobial E. coli pneumonia ID service has been following patient was discharged from the hospital 2 days ago in the last day or 2 patient started having generalized weakness secondary to spike fever up to 1 or 2 came into the hospital for further evaluation has been admitted into the hospital, does have ongoing cough denies any significant sputum production does feel weak patient has baseline severe degree of sleep disorder breathing and sleep apnea has been on the BiPAP machine at night along with supplemental oxygen and has been using regularly Interval history: 05/23/2018patient is being seen examined and evaluated today on rounds while covering for Dr. Morton. Patient is resting up in bed on 4 L of supplemental oxygen via nasal cannula. He had no fevers overnight. Patient to call for a PICC line insertion for IV antibiotics. He is being followed closely by infectious disease. He states his breathing is much better today. All labs and reports reviewed Objective - Vital Signs Vital signs: Vital Signs Temp 97.7 F 05/23/18 07:00 Pulse 84 05/23/18 08:06 Resp 16 05/23/18 07:00 BP 104/53 05/23/18 07:00 Pulse Ox 96 05/23/18 07:00 Intake & Output 05/22/18 05/23/18 05/23/18 18:59 06:59 18:59 Output Total 800 Balance -800 Weight 95.254 kg 86.636 kg Output: Urine 800 Other: Voiding Method Urinal Urinal # Voids 1 1 - Exam GENERAL EXAM: Alert, active, comfortable in no apparent distress. HEAD: Normocephalic. EYES: Normal reaction of pupils, equal size. NOSE: Clear with pink turbinates. THROAT: No erythema or exudates. NECK: No masses, no JVD. CHEST: No chest wall deformity. LUNGS: Lungs noted to have some faint expiratory wheezes CVS: S1 and S2 normal with no audible mumurs, regular rhythm. ABDOMEN: No hepatosplenomegaly, normal bowel sounds, no guarding or rigidity. EXTREMITIES: +1-2 edema noted, pedal pulses palpable. CENTRAL NERVOUS SYSTEM: No focal deficits, tone is normal in all 4 extremities. - Labs CBC & Chem 7: 05/23/18 07:46 05/23/18 07:46 Labs: Abnormal Lab Results - Last 24 Hours (Table) 05/22/18 05/22/18 05/22/18 Range/Units 09:10 09:10 20:58 RBC (4.30-5.90) m/uL Hgb (13.0-17.5) gm/dL Hct (39.0-53.0) % MCV (80.0-100.0) fL MCH (25.0-35.0) pg MCHC (31.0-37.0) g/dL RDW (11.5-15.5) % Lymphocytes # (1.0-4.8) k/uL Eosinophils # (0-0.7) k/uL BUN (9-20) mg/dL Creatinine (0.66-1.25) mg/dL POC Glucose (mg/dL) 112 H (75-99) mg/dL Hemoglobin A1c 6.8 H (4.0-6.0) % Calcium (8.4-10.2) mg/dL AST (17-59) U/L Total Protein (6.3-8.2) g/dL Albumin (3.5-5.0) g/dL Procalcitonin 1.03 H (0.02-0.09) ng/mL 05/23/18 05/23/18 05/23/18 Range/Units 06:56 07:46 07:46 RBC 3.75 L (4.30-5.90) m/uL Hgb 7.7 L (13.0-17.5) gm/dL Hct 28.4 L (39.0-53.0) % MCV 75.8 L (80.0-100.0) fL MCH 20.5 L (25.0-35.0) pg MCHC 27.1 L (31.0-37.0) g/dL RDW 21.0 H (11.5-15.5) % Lymphocytes # 0.5 L (1.0-4.8) k/uL Eosinophils # 0.8 H (0-0.7) k/uL BUN 34 H (9-20) mg/dL Creatinine 1.33 H (0.66-1.25) mg/dL POC Glucose (mg/dL) 111 H (75-99) mg/dL Hemoglobin A1c (4.0-6.0) % Calcium 8.0 L (8.4-10.2) mg/dL AST 70 H (17-59) U/L Total Protein 5.5 L (6.3-8.2) g/dL Albumin 2.5 L (3.5-5.0) g/dL Procalcitonin (0.02-0.09) ng/mL Microbiology - Last 24 Hours (Table) 05/22/18 09:10 Urine Culture - Preliminary Urine,Voided Assessment and Plan Assessment: Assessment: Gram-negative pneumonia related to E. coli on therapy with IV Rocephin Sirs-like process due to above Severe degree of sleep disorder breathing and sleep apnea Congestive heart failure Chronic atrial fibrillation History of prior MD and diabetes and chronic anemia Dyslipidemia Plan: Continue broad-spectrum antibiotics and supportive care Pulmonary hygiene and supportive care Supplemental oxygen to maintain oxygen saturations greater than 90% Initiate and encourage incentive spirometer CPAP at night and with naps Follow-up on culture results and report Anticipate current spiking fever is related to the same ongoing chronic pneumonia due to gram-negative continue antibiotics adjustment as per ID services will follow Nebulizer treatments in the form of DuoNeb and budesonide Increase activity as tolerated, PT We are covering for Dr. Morton I performed an examination of the patient and discussed their management with the nurse practitioner. I have reviewed the nurse practitioner's note and agree with the documented findings and plan of care. <Aliyah Palumbo A - Last Filed: 05/23/18 13:00> Objective - Vital Signs Vital signs: Vital Signs Temp 97.7 F 05/23/18 07:00 Pulse 70 05/23/18 11:50 Resp 16 05/23/18 07:00 BP 104/53 05/23/18 07:00 Pulse Ox 96 05/23/18 07:00 Intake & Output 05/22/18 05/23/18 05/23/18 18:59 06:59 18:59 Output Total 800 Balance -800 Weight 95.254 kg 86.636 kg Output: Urine 800 Other: Voiding Method Urinal Urinal # Voids 1 1 - Labs CBC & Chem 7: 05/23/18 07:46 05/23/18 07:46 Labs: Abnormal Lab Results - Last 24 Hours (Table) 05/22/18 05/22/18 05/22/18 Range/Units 09:10 09:10 20:58 RBC (4.30-5.90) m/uL Hgb (13.0-17.5) gm/dL Hct (39.0-53.0) % MCV (80.0-100.0) fL MCH (25.0-35.0) pg MCHC (31.0-37.0) g/dL RDW (11.5-15.5) % Lymphocytes # (1.0-4.8) k/uL Eosinophils # (0-0.7) k/uL BUN (9-20) mg/dL Creatinine (0.66-1.25) mg/dL POC Glucose (mg/dL) 112 H (75-99) mg/dL Hemoglobin A1c 6.8 H (4.0-6.0) % Calcium (8.4-10.2) mg/dL AST (17-59) U/L Total Protein (6.3-8.2) g/dL Albumin (3.5-5.0) g/dL Procalcitonin 1.03 H (0.02-0.09) ng/mL 05/23/18 05/23/18 05/23/18 Range/Units 06:56 07:46 07:46 RBC 3.75 L (4.30-5.90) m/uL Hgb 7.7 L (13.0-17.5) gm/dL Hct 28.4 L (39.0-53.0) % MCV 75.8 L (80.0-100.0) fL MCH 20.5 L (25.0-35.0) pg MCHC 27.1 L (31.0-37.0) g/dL RDW 21.0 H (11.5-15.5) % Lymphocytes # 0.5 L (1.0-4.8) k/uL Eosinophils # 0.8 H (0-0.7) k/uL BUN 34 H (9-20) mg/dL Creatinine 1.33 H (0.66-1.25) mg/dL POC Glucose (mg/dL) 111 H (75-99) mg/dL Hemoglobin A1c (4.0-6.0) % Calcium 8.0 L (8.4-10.2) mg/dL AST 70 H (17-59) U/L Total Protein 5.5 L (6.3-8.2) g/dL Albumin 2.5 L (3.5-5.0) g/dL Procalcitonin (0.02-0.09) ng/mL 05/23/18 Range/Units 11:38 RBC (4.30-5.90) m/uL Hgb (13.0-17.5) gm/dL Hct (39.0-53.0) % MCV (80.0-100.0) fL MCH (25.0-35.0) pg MCHC (31.0-37.0) g/dL RDW (11.5-15.5) % Lymphocytes # (1.0-4.8) k/uL Eosinophils # (0-0.7) k/uL BUN (9-20) mg/dL Creatinine (0.66-1.25) mg/dL POC Glucose (mg/dL) 142 H (75-99) mg/dL Hemoglobin A1c (4.0-6.0) % Calcium (8.4-10.2) mg/dL AST (17-59) U/L Total Protein (6.3-8.2) g/dL Albumin (3.5-5.0) g/dL Procalcitonin (0.02-0.09) ng/mL Microbiology - Last 24 Hours (Table) 05/22/18 09:10 Urine Culture - Final Urine,Voided 05/22/18 09:10 Blood Culture - Preliminary Blood No Growth after 24 hours Assessment and Plan Assessment: Patient seen and examined covering for Dr. Morton. CPAP nightly and with naps. PICC line today. ABX per ID. IS and pulmonary hygiene. Duonebs and Pulmicort. ~Aliyah Palumbo DO
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
[2018-05-23 11:53] LABS: Glucose,Whole Blood 142 mg/dL (75-99)
[2018-05-23] MEDS ORDERED: LEVOFLOXACIN 750MG-D5W PMX 750 MG in DEXTROSE/WATER 1 150ML.BAG IVPB SCH (12:00)
--- NOTE | 2018-05-23 12:27 | IR ---
EXAMINATION TYPE: IR cvc insert >=5 years DATE OF EXAM: 05/23/2018 COMPARISON: NONE CLINICAL HISTORY: Infection Needs long-term intravenous access for antibiotics. PROCEDURE: After informed consent, the skin overlying the left basilic vein was localized with ultrasound and no mickie to be compressible and patent. An ultrasound image was obtained and submitted on the patient's c garcia. The overlying skin was prepped and draped and Lidocaine was used for local anesthesia. A skin humble was made with a scalpel. Access was gained to the vein under ultrasound guidance with a 21 gau ge needle and a 0.018 inch wire was advanced. Access site was dilated with Peel-Away sheath and cath eter tailored to the appropriate length and advanced such that the distal tip is at the cavoatrial ju nction. Spot image was obtained verifying placement. Catheter was fixed to the skin and a sterile d ressing was placed following hemostasis. Catheter was aspirated and flushed with saline. Patient wa s discharged in stable condition without complication. Maximal barrier technique is utilized. Ultras ound image is documented on the chart. Ultrasound used with sterile technique. Fluoro time and fluoroscopic images submitted to document procedure: 58 intraoperative C-arm images, 0.3 minutes fluoroscopy time IMPRESSION: STATUS POST ULTRASOUND AND FLUOROSCOPIC GUIDED PICC LINE PLACEMENT, READY FOR USE. THIS PROCEDURE WAS PERFORMED BY THE UNDERSIGNED.
--- NOTE | 2018-05-23 14:05 | XR ---
EXAMINATION TYPE: XR chest 2V DATE OF EXAM: 05/23/2018 COMPARISON: Chest x-ray from yesterday. HISTORY: Pneumonia progress study. TECHNIQUE: Frontal and lateral views of the chest are obtained. FINDINGS: There is new left-sided PICC line terminating in SVC. Overlying sternal wires and mediastin al clips are redemonstrated. There is chronic parenchymal change with right mid to basilar opacity r edemonstrated. Tiny bilateral pleural effusions are felt present. The cardiac silhouette size remain s enlarged. Surgical change cervical spine is partially imaged. IMPRESSION: New left-sided PICC line terminating in SVC. Persistent cardiomegaly and chronic parench ymal change with right mid to lower lung infiltrate and/or atelectasis.
[2018-05-23 17:41] LABS: Glucose,Whole Blood 198 mg/dL (75-99)
[2018-05-23] MEDS: BUDESONIDE 0.5 MG/2 ML NEBU INHALATION SCH (19:28)
[2018-05-23] MEDS: amLODIPine 5 MG TAB PO SCH (19:57)
[2018-05-23] MEDS: APIXABAN 5 MG TAB PO SCH (19:57)
[2018-05-23] MEDS: LEVOTHYROXINE 50 MCG TAB PO SCH (19:58)
[2018-05-23] MEDS: ATORVASTATIN 80 MG TAB PO SCH (19:58)
[2018-05-23] MEDS: MONTELUKAST 10 MG TAB PO SCH (19:59)
[2018-05-23 21:16] LABS: Glucose,Whole Blood 198 mg/dL (75-99)
--- NOTE | 2018-05-23 23:42 | P.PN ---
Subjective Progress Note Date: 05/23/18 Pleasant 57-year-old male with multiple recent hospitalizations for discharge on 05/20/2018 for recent bout of E. coli pneumonia found at the time of his bronchoscopy. The patient had been treated as an outpatient levofloxacin E. coli was resistant and as he had marked improvement he was discharged home on intravenous ceftriaxone. The patient however rapidly became ill with fever cough and malaise and constantly was brought back to the emergency center and admitted for worsening pneumonia. The patient relates that 48 hours ago his legs were then now become quite swollen again. He is short of breath he has cough and sputum production. His fever is improved but was 101.3 earlier. This evening he sitting upright is eating some food and relates that he feels better than at home. He is denying chills or rigors. As the ulceration to his coccyx that is treated with the sacral dressing which is finding soothing. 05/23/2018 the patient is feeling considerably better today. He sitting upright and eating his meal without difficulties. His shortness of breath is improved. His fever has resolved. His mentation has improved. No new acute complaints. Objective - Vital Signs Vital signs: Vital Signs Temp 98.4 F 05/23/18 23:00 Pulse 59 L 05/23/18 23:00 Resp 19 05/23/18 23:00 BP 111/47 05/23/18 23:00 Pulse Ox 98 05/23/18 23:00 Intake & Output 05/23/18 05/23/18 05/24/18 06:59 18:59 06:59 Intake Total 1050 Output Total 800 600 Balance -800 450 Weight 86.636 kg Intake: Oral 1050 Output: Urine 800 600 Other: Voiding Method Urinal Urinal # Voids 1 2 2 - Exam Gen: This is a obese 57-year-old male. awake and alert to questions appropriately. He does not appear to be in any respiratory distress. HEENT: Head is atraumatic, normocephalic. Pupils equal, round. Sclerae is anicteric. Oral mucous membranes are very dry. No thrush noted. Patient is edentulous. NECK: Supple. No JVD. No lymphadenopathy. No thyromegaly. LUNGS: Symmetrical bilateral air entry, basilar crackles right greater than left few expiratory wheezes no dullness or egophony HEART: Regular rate and rhythm. No murmur. ABDOMEN: Soft. Bowel sounds are present. No masses. No tenderness. EXTREMITIES: Upper extremities intact, IV right arm without difficulties Lower extremities have significant bilateral lower extremity edema but no ulcerations Skin: the ulceration to the coccyx is improved and issoothed by the pad in place NEUROLOGICAL: Awake alert oriented person place and time exhibits no acute gross focal sensory motor deficits - Labs CBC & Chem 7: 05/23/18 07:46 05/23/18 07:46 Labs: Abnormal Lab Results - Last 24 Hours (Table) 05/23/18 05/23/18 05/23/18 Range/Units 06:56 07:46 07:46 RBC 3.75 L (4.30-5.90) m/uL Hgb 7.7 L (13.0-17.5) gm/dL Hct 28.4 L (39.0-53.0) % MCV 75.8 L (80.0-100.0) fL MCH 20.5 L (25.0-35.0) pg MCHC 27.1 L (31.0-37.0) g/dL RDW 21.0 H (11.5-15.5) % Lymphocytes # 0.5 L (1.0-4.8) k/uL Eosinophils # 0.8 H (0-0.7) k/uL BUN 34 H (9-20) mg/dL Creatinine 1.33 H (0.66-1.25) mg/dL POC Glucose (mg/dL) 111 H (75-99) mg/dL Calcium 8.0 L (8.4-10.2) mg/dL AST 70 H (17-59) U/L Total Protein 5.5 L (6.3-8.2) g/dL Albumin 2.5 L (3.5-5.0) g/dL 05/23/18 05/23/18 05/23/18 Range/Units 11:38 17:14 21:05 RBC (4.30-5.90) m/uL Hgb (13.0-17.5) gm/dL Hct (39.0-53.0) % MCV (80.0-100.0) fL MCH (25.0-35.0) pg MCHC (31.0-37.0) g/dL RDW (11.5-15.5) % Lymphocytes # (1.0-4.8) k/uL Eosinophils # (0-0.7) k/uL BUN (9-20) mg/dL Creatinine (0.66-1.25) mg/dL POC Glucose (mg/dL) 142 H 198 H 198 H (75-99) mg/dL Calcium (8.4-10.2) mg/dL AST (17-59) U/L Total Protein (6.3-8.2) g/dL Albumin (3.5-5.0) g/dL Microbiology - Last 24 Hours (Table) 05/22/18 13:02 Blood Culture - Preliminary Blood No Growth after 24 hours 05/22/18 09:10 Urine Culture - Final Urine,Voided 05/22/18 09:10 Blood Culture - Preliminary Blood No Growth after 24 hours Laboratory Results WBC 6.8 k/uL (3.8-10.6) 05/23/18 07:46 RBC 3.75 m/uL (4.30-5.90) L 05/23/18 07:46 Hgb 7.7 gm/dL (13.0-17.5) L 05/23/18 07:46 Hct 28.4 % (39.0-53.0) L 05/23/18 07:46 MCV 75.8 fL (80.0-100.0) L 05/23/18 07:46 MCH 20.5 pg (25.0-35.0) L 05/23/18 07:46 MCHC 27.1 g/dL (31.0-37.0) L 05/23/18 07:46 RDW 21.0 % (11.5-15.5) H 05/23/18 07:46 Plt Count 217 k/uL (150-450) 05/23/18 07:46 Neutrophils % 72 % 05/23/18 07:46 Lymphocytes % 8 % 05/23/18 07:46 Monocytes % 5 % 05/23/18 07:46 Eosinophils % 11 % 05/23/18 07:46 Basophils % 0 % 05/23/18 07:46 Neutrophils # 4.9 k/uL (1.3-7.7) 05/23/18 07:46 Lymphocytes # 0.5 k/uL (1.0-4.8) L 05/23/18 07:46 Monocytes # 0.4 k/uL (0-1.0) 05/23/18 07:46 Eosinophils # 0.8 k/uL (0-0.7) H 05/23/18 07:46 Basophils # 0.0 k/uL (0-0.2) 05/23/18 07:46 Hypochromasia Marked 05/23/18 07:46 Poikilocytosis Slight 05/23/18 07:46 Anisocytosis Moderate 05/23/18 07:46 Microcytosis Moderate 05/23/18 07:46 PT 13.3 sec (9.0-12.0) H 05/22/18 09:10 INR 1.4 (<1.2) H 05/22/18 09:10 APTT 26.3 sec (22.0-30.0) 05/22/18 09:10 Sodium 141 mmol/L (137-145) 05/23/18 07:46 Potassium 4.2 mmol/L (3.5-5.1) 05/23/18 07:46 Chloride 103 mmol/L (98-107) 05/23/18 07:46 Carbon Dioxide 29 mmol/L (22-30) 05/23/18 07:46 Anion Gap 9 mmol/L 05/23/18 07:46 BUN 34 mg/dL (9-20) H 05/23/18 07:46 Creatinine 1.33 mg/dL (0.66-1.25) H 05/23/18 07:46 Est GFR (CKD-EPI)AfAm 68 (>60 ml/min/1.73 sqM) 05/23/18 07:46 Est GFR (CKD-EPI)NonAf 58 (>60 ml/min/1.73 sqM) 05/23/18 07:46 Glucose 83 mg/dL (74-99) 05/23/18 07:46 POC Glucose (mg/dL) 198 mg/dL (75-99) H 05/23/18 21:05 POC Glu Apron Trimmer Jennifer Burnette 05/23/18 21:[address] Glu mg/dL 148 05/22/18 09:10 Hemoglobin A1c 6.8 % (4.0-6.0) H 05/22/18 09:10 Lactic Ac Sepsis Rflx Y 05/22/18 09:48 Plasma Lactic Acid Freddy 2.0 mmol/L (0.7-2.0) 05/22/18 13:02 Calcium 8.0 mg/dL (8.4-10.2) L 05/23/18 07:46 Magnesium 1.9 mg/dL (1.6-2.3) 05/23/18 07:46 Total Bilirubin 0.8 mg/dL (0.2-1.3) 05/23/18 07:46 AST 70 U/L (17-59) H 05/23/18 07:46 ALT 69 U/L (21-72) 05/23/18 07:46 Alkaline Phosphatase 104 U/L (38-126) 05/23/18 07:46 Total Creatine Kinase 39 U/L (55-170) L 05/22/18 09:10 CK-MB (CK-2) 4.3 ng/mL (0.0-2.4) H 05/22/18 09:10 CK-MB (CK-2) Rel Index 11.0 05/22/18 09:10 Troponin I 0.013 ng/mL (0.000-0.034) 05/22/18 09:10 NT-Pro-B Natriuret Pep 14928 pg/mL 05/22/18 09:10 Total Protein 5.5 g/dL (6.3-8.2) L 05/23/18 07:46 Albumin 2.5 g/dL (3.5-5.0) L 05/23/18 07:46 Procalcitonin 1.03 ng/mL (0.02-0.09) H 05/22/18 09:10 Urine Color Yellow 05/22/18 09:10 Urine Appearance Clear (Clear) 05/22/18 09:10 Urine pH 6.0 (5.0-8.0) 05/22/18 09:10 Ur Specific [place] 1.018 (1.001-1.035) 05/22/18 09:10 Urine Protein 1+ (Negative) H 05/22/18 09:10 Urine Glucose (UA) Negative (Negative) 05/22/18 09:10 Urine Ketones Negative (Negative) 05/22/18 09:10 Urine Blood Negative (Negative) 05/22/18 09:10 Urine Nitrite Negative (Negative) 05/22/18 09:10 Urine Bilirubin 2+ (Negative) H 05/22/18 09:10 Urine Urobilinogen <2.0 mg/dL (<2.0) 05/22/18 09:10 Ur Leukocyte Esterase Negative (Negative) 05/22/18 09:10 Urine RBC 2 /hpf (0-5) 05/22/18 09:10 Urine WBC 2 /hpf (0-5) 05/22/18 09:10 Ur Squamous Epith Cells <1 /hpf (0-4) 05/22/18 09:10 Microbiology 05/22/18 13:02 Blood Blood Culture - Preliminary No Growth after 24 hours 05/22/18 09:10 Urine,Voided Urine Culture - Final 05/22/18 09:10 Blood Blood Culture - Preliminary No Growth after 24 hours Assessment and Plan (1) Fever Current Visit: Yes Status: Acute Code(s): R50.9 - FEVER, UNSPECIFIED SNOMED Code(s): 437349951 (2) Failure of outpatient treatment Current Visit: Yes Status: Acute Code(s): Z78.9 - OTHER SPECIFIED HEALTH STATUS SNOMED Code(s): 977505783 (3) Gram-negative pneumonia Narrative/Plan: 57 year old male who has multiple medical troubles including multiple recent hospitalizations for pneumonia. MRSA was isolated originally, was treated and had some improvement. Had some relapsing pneumonia responded to further course of antibiotic therapy. He then relapsed again and Escherichia coli was found at the time of bronchoscopy that was resistant to fluoroquinolones. He subsequently was placed on ceftriaxone with marked clinical improvement and discharged to home. Within 48 hours if patient became febrile and increasing cough and sputum production and consequently presents back to hospital for admission. With the recurrent pneumonia antibiotic therapy is altered piperacillin tazobactam and vancomycin pending further blood and culture results of sputum. Fortunately the patient is feeling slightly better since admission. The patient is to use his home BiPAP whenever he is sleeping. Including daytime naps. In the past he does not wear it he does develop some CO2 narcosis. I'm requesting to speak with the regarding the cleaning of the unit. Manufactures usually indicate cleaning tubing and mask with warm water and detergent thoroughly rinsing and allowing to dry usually in a hanging position. The water tank should also be cleaned with warm water and detergent. The goal of the detergent is disrupt any biofilm that forms that may then results of infections. 05/23/2018 reveals the patient be considerably improved today. He is less short of breath. His mentation is back to baseline. He is without much discomfort. He's been able to ambulate. He does have lower extremity edema. We'll ask the nursing to apply some AMBIKA hose to his legs with his edema and elevate his legs. Antibiotic therapy is noted as well as Zosyn and vancomycin until we have further culture data. Most recent bronchoscopy showed E. coli that was susceptible to Rocephin that he was receiving at home with had a marked worsening of his status. Is having excellent improvement at this time with antibiotic therapy. Await cultures to further define her course of antibiotics at discharge. Current Visit: Yes Status: Acute Code(s): J15.6 - PNEUMONIA DUE TO OTHER GRAM-NEGATIVE BACTERIA SNOMED Code(s): 744705808
[2018-05-24] MEDS: PIPERACILLIN-TAZOBACTAM 3.375 GM in DEXTROSE/WATER 1 50ML.BAG IVPB SCH ×3 (04:10→20:18)
[2018-05-24 07:22] LABS: Glucose,Whole Blood 98 mg/dL (75-99)
[2018-05-24] MEDS: INSULIN ASPART 100 UNIT/ML 1 ML 10 ML VIAL SQ SCH ×4 (07:24→20:38)
[2018-05-24] MEDS: VANCOMYCIN 1,500 MG in SODIUM CHLORIDE 0.9% 250 ML IVPB SCH (07:28)
[2018-05-24] MEDS: CLOTRIMAZOLE/BETAMETH 1-0.05% CREAM 45 GM TUBE TOPICAL SCH ×2 (07:28→20:22)
[2018-05-24] MEDS: FUROSEMIDE 20 MG TAB PO SCH (07:29)
[2018-05-24] MEDS: HYDROcodone/APAP 10-325MG 1 EACH TAB PO PRN ×3 (07:29→19:11)
[2018-05-24] MEDS: APIXABAN 5 MG TAB PO SCH ×2 (07:30→20:19)
[2018-05-24] MEDS: DULoxetine HCL 30 MG CAPSULE.DR PO SCH ×2 (07:30→20:20)
[2018-05-24] MEDS: ETODOLAC 400 MG TAB PO SCH ×2 (07:30→20:20)
[2018-05-24] MEDS: GABAPENTIN 400 MG CAP PO SCH ×4 (07:31→20:22)
[2018-05-24] MEDS: LORATADINE 10 MG TAB PO SCH (07:31)
[2018-05-24] MEDS: LISINOPRIL 5 MG TAB PO SCH (07:31)
[2018-05-24] MEDS: METOPROLOL TARTRATE 25 MG TAB PO SCH ×3 (07:31→20:21)
[2018-05-24] MEDS: POTASSIUM CHLORIDE ER 20 MEQ TAB.ER PO SCH (07:31)
[2018-05-24] MEDS: PANTOPRAZOLE 40 MG TABLET PO SCH ×2 (07:31→20:22)
[2018-05-24] MEDS: HYDROCORTISONE 20 MG TAB PO SCH (07:31)
[2018-05-24] MEDS: INSULIN DETEMIR 100 UNIT/ML 10 ML VIAL SQ SCH ×2 (08:36→20:43)
[2018-05-24] MEDS: IPRATROPIUM-ALBUTEROL 3 ML NEB INHALATION SCH ×4 (08:46→19:53)
[2018-05-24] MEDS: BUDESONIDE 0.5 MG/2 ML NEBU INHALATION SCH ×2 (08:46→19:53)
[2018-05-24] MEDS ORDERED: methylPREDNISolone SOD SUCCI 125 MG/2 ML VIAL IV STA (10:29)
--- NOTE | 2018-05-24 11:11 | PN ---
PROGRESS NOTE A 57-year-old white male who presented to the emergency room with chief complaint of shortness of breath, fever, cough, had been doing well at home, but the evening before he became short of breath. He reported increase in cough with sputum production, had a fever of 100.9. He also reported he had been ambulating with his walker with difficulty until yesterday, he was unable to walk. At that time, decided to come to the emergency room. The patient was recently hospitalized from 05/12 towards 05/20 for pneumonia. He was discharged on a 14-day course of Rocephin. During the hospitalization, the patient had at a positive sputum culture of E. coli. He had undergone therapeutic bronchoscopy, multiple mucus plugs were visualized. Bronchial washings were positive at that time for Radha. This patient has an extensive medical history. He has congestive heart failure, coronary artery disease, diabetes mellitus, hypertension, osteoarthritis, pancreatic mass suspected to be benign, severe intractable lumbar stenosis and chronic disc pain because of the lateral impingement and cord impingement and peripheral neuropathy. He also has GE reflux, hyperlipidemia, MRSA infection of the right hand and shingles in 2016, skin cancers removed multiple times, multiple infections of the elbow and right heel in the past, lower lobe pneumonia with a para pneumatic effusion that required thoracotomy and chest tube placement in 2014. He has also had a myocardial infarction 2006 and 2007. PAST SURGICAL HISTORY: Includes a bowel resection, cholecystectomy, coronary artery disease graft, heart catheterization with multiple stents, hernia repair, joint replacement. The patient's liver function tests were elevated on previous hospitalization, but the trend towards normal has occurred. Records from Dr. Mcgrath's office of previous hospitalization show that he had been last there in August 2016, but he had been set up for a MRI to be completed at [facility] several weeks ago, had to be canceled because of his present state. His chest x-ray now correlates for possible pneumonia, atypical presentation or maybe even mild congestive heart failure. Of interest, he did have a hemoglobin of 8.2 with a 13.2 white count. Sodium 140, potassium 3.9, BUN 38, creatinine 1.38. Lactic acid was 2.8, repeat acid was 2. Mildly elevated liver function tests. AST 80 and ALT 71. His BNP though was 13,000. The patient was admitted to the hospital at that time and will followed him accordingly. FAMILY HISTORY: Significant for cancer, GERD, hypertension, type 2 diabetes, and breast cancer. MEDICATIONS: At this time 0.5, nitroglycerin p.r.n., omeprazole 20 twice a day, furosemide 20 daily, Gabapentin 800 mg 4 times a day, [place] 10/325 every 4 hours, Fentanyl patch 25 daily, singular 10, insulin per scale, multiple vitamin, Cymbalta twice a day, Lodine 400 twice a day, Lantus 26 b.i.d., Lipitor 80 daily, Eliquis 5 b.i.d., Lopressor 25 b.i.d., Cortef 20 mg daily, Restoril 5, topical Lotrisone cream, Claritin daily, 20 mg of potassium daily, Levemir 26 mg b.i.d., Zosyn 3.375 q.8, vancomycin per scale or per pharmacy IV piggyback. It would also be noted that the patient also has a decubiti on discharge on his right and left buttocks area, which is being cared for via Infectious Disease. He also has severe generalized osteoarthritis including calcinosis of the elbows along with intermittent atrial fib. REVIEW OF SYSTEMS: Today, eyes are fine. ENT is normal. Chest, respiratory minimal cough. Heart no palpitations. No orthopnea or proximal nocturnal dyspnea. GI no hematemesis, melena or hematochezia. he has had normal urination. Neuromuscular is the strength of his legs and his arms are returning. Psychiatric no anxiety, depression, actually in very good mood, feels well. PHYSICAL EXAM: Alert white male. Blood pressure 109/51, heart rate is in the 60s, respiratory rate is 22, temperature is 97, O2 is 100% on 3 L. EYES: Pupils are equal, round, reactive to light and accommodation. ENT showed tympanic membranes and pharynx to be negative. Neck is supple with midline trachea. Chest is essentially clear at this time except for some lower lung rhonchi. Heart sinus rhythm. No murmur. Abdomen is soft, nontender with no organomegaly. Lower extremities swelling is present. Support stockings up to the knees have been maintained. Decubiti skin breakdown on both buttocks is covered. Microbiology for sputum, blood, urine cultures are still pending. ASSESSMENT: 1. Pneumonia, recurrent, recent hospitalizations for previous pneumonia, recent sepsis of 04/16/2018, proximal atrial fibrillation, long-term coagulation. 2. Coronary artery disease with previous arterial coronary graft and stent placement. 3. Diabetes type 2. 4. Sleep apnea. 5. Acute on chronic congestive heart failure. EF 35% to 40%. 6. Micro hypochromic anemia. Etiology is still unclear history. 7. 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 patient. Declined surgical intervention. 8. Decrease in transaminitis, chronic adrenal insufficiency, on Cortef. 9. Previous cellulitis with methicillin-resistant Staphylococcus aureus, history of methicillin-resistant Staphylococcus aureus. 10.Hyperlipidemia. 11.Generalized osteoarthritis with calcinosis. 12.Hypothyroid. 13.Obesity with a body mass index of 31.1. 14.Stage II decubiti on the buttocks. 15.Hypomagnesemia. PLAN: Continue on IV antibiotics, pending cultures. A PICC line has just been placed. We renewed his Eliquis. GI prophylaxis. DVT prophylaxis including that of AMBIKA eliecere put to the bilateral lower legs. At this time, further recommendations are pending patient's course and discharge planning will return to home when stable. MMODL / IJN: [id number] /
[2018-05-24 12:16] LABS: Glucose,Whole Blood 105 mg/dL (75-99)
[2018-05-24 17:17] LABS: Glucose,Whole Blood 261 mg/dL (75-99)
--- NOTE | 2018-05-24 18:53 | PN ---
PROGRESS NOTE He was seen on 05/24/2018. He has been hemodynamically stable. He does not complain of any shortness of breath and is feeling well overall. PHYSICAL EXAMINATION: His respiratory rate is 22, pulse rate of 58, temperature 97.5, blood pressure 109/51, O2 sat on 3L by nasal cannula is 100%. HEENT is unremarkable. Chest is relatively clear. Cardiovascular system reveals an S1, S2. Abdomen is soft. There is no pedal edema. Microbiological cultures from the blood are showing no growth. Gram stain is showing no organisms. Urinary cultures are showing no growth. IMPRESSION: At this time is: 1. Recurrent pneumonia secondary to gram-negative etiology is likely. 2. Obstructive sleep apnea. 3. Atrial fibrillation. 4. Congestive heart failure. 5. Bronchospasm, recent. Continue antibiotics per ID. Continue bronchodilators. Keep his sugars under control. His prognosis is fair. MMODL / IJN: [id number] /
[2018-05-24] MEDS: ATORVASTATIN 80 MG TAB PO SCH (20:19)
[2018-05-24] MEDS: amLODIPine 5 MG TAB PO SCH (20:19)
[2018-05-24] MEDS: LEVOTHYROXINE 50 MCG TAB PO SCH (20:21)
[2018-05-24] MEDS: MONTELUKAST 10 MG TAB PO SCH ×2 (20:21→22:16)
[2018-05-24 20:51] LABS: Glucose,Whole Blood 385 mg/dL (75-99)
[2018-05-25] MEDS: PIPERACILLIN-TAZOBACTAM 3.375 GM in DEXTROSE/WATER 1 50ML.BAG IVPB SCH ×3 (03:30→20:53)
[2018-05-25] MEDS: HYDROcodone/APAP 10-325MG 1 EACH TAB PO PRN ×3 (03:33→21:09)
[2018-05-25] MEDS: VANCOMYCIN 1,500 MG in SODIUM CHLORIDE 0.9% 250 ML IVPB SCH (06:20)
[2018-05-25 07:49] LABS: Glucose,Whole Blood 265 mg/dL (75-99)
[2018-05-25] MEDS: GABAPENTIN 400 MG CAP PO SCH ×4 (07:59→20:58)
[2018-05-25] MEDS: ETODOLAC 400 MG TAB PO SCH ×2 (07:59→20:59)
[2018-05-25] MEDS: INSULIN ASPART 100 UNIT/ML 1 ML 10 ML VIAL SQ SCH ×4 (07:59→20:56)
[2018-05-25] MEDS: DULoxetine HCL 30 MG CAPSULE.DR PO SCH ×2 (08:00→20:58)
[2018-05-25] MEDS: CLOTRIMAZOLE/BETAMETH 1-0.05% CREAM 45 GM TUBE TOPICAL SCH ×2 (08:00→20:59)
[2018-05-25] MEDS: APIXABAN 5 MG TAB PO SCH ×2 (08:01→20:59)
[2018-05-25] MEDS: HYDROCORTISONE 20 MG TAB PO SCH (08:01)
[2018-05-25] MEDS: FUROSEMIDE 20 MG TAB PO SCH (08:01)
[2018-05-25] MEDS: LISINOPRIL 5 MG TAB PO SCH (08:04)
[2018-05-25] MEDS: LORATADINE 10 MG TAB PO SCH (08:05)
[2018-05-25] MEDS: POTASSIUM CHLORIDE ER 20 MEQ TAB.ER PO SCH (08:05)
[2018-05-25] MEDS: METOPROLOL TARTRATE 25 MG TAB PO SCH ×2 (08:05→20:57)
[2018-05-25] MEDS: PANTOPRAZOLE 40 MG TABLET PO SCH ×2 (08:05→20:58)
[2018-05-25] MEDS: INSULIN DETEMIR 100 UNIT/ML 10 ML VIAL SQ SCH ×2 (08:12→20:55)
[2018-05-25] MEDS: BUDESONIDE 0.5 MG/2 ML NEBU INHALATION SCH ×2 (08:34→19:53)
[2018-05-25] MEDS: IPRATROPIUM-ALBUTEROL 3 ML NEB INHALATION SCH ×4 (08:34→19:53)
--- NOTE | 2018-05-25 08:49 | PN ---
PROGRESS NOTE HISTORY: A 57-year-old white male, presented to the emergency room with a chief complaint of shortness of breath, fever, cough, before feeling okay at home. That evening, he became short of breath, temperature went up to 101.9, and he was brought into the emergency room. At that period of time a chest x-ray was completed which showed visual new pneumonia that was not there previously. This gentleman had been admitted 3 times prior in the last 8 weeks for extensive pneumonia resolving, and then back into the hospital. The last 2 times he was readmitted before he was even seen on followup. He does have a history of GE reflux, hyperlipidemia, MRSA infection of the hand, and shingles in 2016. He has got a previous history of congestive heart failure, systolic in type, with ejection fraction between 35 and 40, coronary artery disease, type 2 diabetes, hypertension, generalized osteoarthritis with calcinosis, pancreatic mass suspected to be benign, felt to be a probable neuroendocrine lesion. He has also had a history of skin cancer removal multiple times, multiple infections of the elbow and right heel, and lower lobe parapneumonic effusion. He also had a myocardial infarction in 2006/2007. PAST MEDICAL HISTORY: Includes that of a bowel resection, cholecystectomy, coronary artery disease, cardiac catheterization, multiple stents, hernia repair and joint replacement for surgeries. He is also following up with Dr. Lr for a pancreatic mass in 2016 in August. He was set up for a special MRI test which has not been performed. FAMILY HISTORY: Essential for cancer, GERD, hypertension, diabetes, and breast cancer. LABS: His labs were reviewed today. There was no difference. MEDICATIONS: All of is medications in the previous note were reviewed. They are unchanged. REVIEW OF SYSTEMS: EYES: He sees fine. ENT. No problems with hearing. No problems with ear pain. Throat is fine. RESPIRATORY: Minimal cough. No shortness of breath. CARDIAC: No palpitations, orthopnea or proximal nocturnal dyspnea. No chest pain. GI: No hematemesis. No hematochezia. : Normal. NEUROMUSCULAR: He has good strength in his legs and arms. PSYCHIATRIC: No anxiety or depression. PHYSICAL EXAMINATION: Temperature is 97, heart rate is in the 60s, respiratory rate was 18. He is on 2 L of oxygen. Blood pressure 109/51. EYES: Pupils are equal, round, react to light accommodation. ENT showed tympanic membranes and pharynx to be negative. NECK: Supple with midline trachea. No carotid bruits. CHEST: Essentially clear except for some minimal rhonchi in the lower lungs. HEART: Sinus rhythm with no murmur. ABDOMEN: Soft, nontender with no organomegaly. EXTREMITIES: Lower extremity swelling is present. Support stockings to the knees have been ordered. Decubitus on buttocks is covered but the patient is having minimal amount of pain. ALLERGIES: The patient has a runny nose and hematemesis. The patient has a low hemoglobin of questionable etiology. ASSESSMENT: 1. Pneumonia, recurrent, recent hospitalizations for previous pneumonia with recent sepsis of 04/16/2018. 2. Paroxysmal atrial fibrillation, on long-term anticoagulation. 3. Coronary artery disease with previous arterial coronary graft and stent placement. 4. Diabetes type 2 on insulin support. 5. Sleep apnea. 6. Acute congestive heart failure with ejection fraction of 35% to 40%. 7. Normocytic microcytic anemia, etiology still unclear. 8. Pancreatic tail neuroendocrine mass, being followed with Dr. Lr at [facility]. He has declined surgical intervention and declined being transferred down there this admission. 9. Decrease in transaminitis. 10.Cellulitis, methicillin-resistant Staph history of. 11.Hyperlipidemia. 12.Generalized osteoarthritis with calcinosis. 13.Hypothyroid. 14.Obesity with body mass index of 31.1. 15.Type 2 decubitus in the buttocks. 16.Resolving hypokinesia. 17.Hypomagnesemia. PLAN: We will continue the same antibiotics. His paroxysmal atrial fib is being prevented as is DVT with Eliquis. He is on GI prophylaxis. At this period in time we will do full labs in the morning with the possibility of discharge on antibiotics. MMODL / IJN: [id number] /
[2018-05-25 11:57] LABS: Glucose,Whole Blood 213 mg/dL (75-99)
--- NOTE | 2018-05-25 15:04 | PN ---
PROGRESS NOTE DATE OF SERVICE: 05/25/2018 He is less short of breath. On physical examination respiratory rate is 18, pulse rate is 75, temperature 97.1, blood pressure 132/75, O2 saturation on room air is 98%. HEENT is unremarkable. Chest reveals decreased breath sounds. No wheeze. Cardiovascular system reveals an S1, S2. Abdomen is soft. There is no edema. IMPRESSION: 1. Pneumonia possibly secondary to resistant organisms. Sputum is growing presumptive Staphylococcus aureus at this time, and recently he had been treated for E coli. 2. Asthma with recent exacerbation. 3. Chronic obstructive pulmonary disease. Continue antibiotics, bronchodilators, increase his activity level. Prognosis is fair. MMODL / IJN: [id number] /
[2018-05-25 17:30] LABS: Glucose,Whole Blood 186 mg/dL (75-99)
[2018-05-25 20:36] LABS: Glucose,Whole Blood 186 mg/dL (75-99)
[2018-05-25] MEDS: amLODIPine 5 MG TAB PO SCH (20:57)
[2018-05-25] MEDS: ATORVASTATIN 80 MG TAB PO SCH (20:58)
[2018-05-25] MEDS: MONTELUKAST 10 MG TAB PO SCH ×2 (20:58→21:23)
[2018-05-25] MEDS: LEVOTHYROXINE 50 MCG TAB PO SCH (20:58)
[2018-05-26] MEDS: PIPERACILLIN-TAZOBACTAM 3.375 GM in DEXTROSE/WATER 1 50ML.BAG IVPB SCH ×3 (04:11→19:56)
[2018-05-26] MEDS ORDERED: VANCOMYCIN TROUGH DUE 1 EACH MISC MISCELLANE ONE (05:00)
[2018-05-26] MEDS: VANCOMYCIN 1,500 MG in SODIUM CHLORIDE 0.9% 250 ML IVPB SCH (06:19)
[2018-05-26 06:28] LABS: Anisocytosis Moderate; Basophils % (A) 0 %; Eosinophils # (A) 0.1 k/uL (0-0.7); Eosinophils % (A) 1 %; HCT 30.3 % (39.0-53.0); HGB 8.3 gm/dL (13.0-17.5); Hypochromasia Marked; Lymphocytes # (A) 0.7 k/uL (1.0-4.8); Lymphocytes % (A) 9 %; MCH 20.8 pg (25.0-35.0); MCHC 27.4 g/dL (31.0-37.0); MCV 75.9 fL (80.0-100.0); Mean Platelet Volume 6.9; Microcytosis Moderate; Monocytes # (A) 0.8 k/uL (0-1.0); Monocytes % (A) 10 %; Neutrophils % (A) 76 %; Platelet Count 257 k/uL (150-450); Poikilocytosis Slight; RDW 20.8 % (11.5-15.5); WBC 7.9 k/uL (3.8-10.6)
[2018-05-26 06:46] LABS: Calcium 8.8 mg/dL (8.4-10.2); Potassium 4.6 mmol/L (3.5-5.1); Total Bilirubin 0.8 mg/dL (0.2-1.3); Total Protein 6.3 g/dL (6.3-8.2)
[2018-05-26] MEDS: BUDESONIDE 0.5 MG/2 ML NEBU INHALATION SCH ×2 (07:21→21:28)
[2018-05-26] MEDS: IPRATROPIUM-ALBUTEROL 3 ML NEB INHALATION SCH ×4 (07:21→21:28)
[2018-05-26 07:31] LABS: Glucose,Whole Blood 167 mg/dL (75-99)
[2018-05-26] MEDS: FUROSEMIDE 20 MG TAB PO SCH (08:03)
[2018-05-26] MEDS: LISINOPRIL 5 MG TAB PO SCH (08:03)
[2018-05-26] MEDS: HYDROCORTISONE 20 MG TAB PO SCH (08:03)
[2018-05-26] MEDS: DULoxetine HCL 30 MG CAPSULE.DR PO SCH ×2 (08:03→19:52)
[2018-05-26] MEDS: METOPROLOL TARTRATE 25 MG TAB PO SCH ×2 (08:03→19:53)
[2018-05-26] MEDS: POTASSIUM CHLORIDE ER 20 MEQ TAB.ER PO SCH (08:04)
[2018-05-26] MEDS: ETODOLAC 400 MG TAB PO SCH ×2 (08:04→19:51)
[2018-05-26] MEDS: INSULIN DETEMIR 100 UNIT/ML 10 ML VIAL SQ SCH ×2 (08:04→21:36)
[2018-05-26] MEDS: PANTOPRAZOLE 40 MG TABLET PO SCH ×2 (08:04→19:52)
[2018-05-26] MEDS: LORATADINE 10 MG TAB PO SCH (08:04)
[2018-05-26] MEDS: INSULIN ASPART 100 UNIT/ML 1 ML 10 ML VIAL SQ SCH ×4 (08:04→21:35)
[2018-05-26] MEDS: APIXABAN 5 MG TAB PO SCH ×2 (08:04→19:54)
[2018-05-26] MEDS: GABAPENTIN 400 MG CAP PO SCH ×4 (08:04→19:52)
[2018-05-26] MEDS: CLOTRIMAZOLE/BETAMETH 1-0.05% CREAM 45 GM TUBE TOPICAL SCH ×2 (08:05→21:34)
[2018-05-26] MEDS: HYDROcodone/APAP 10-325MG 1 EACH TAB PO PRN ×3 (08:06→17:56)
--- NOTE | 2018-05-26 08:20 | P.PN ---
Subjective Progress Note Date: 05/23/18 57-year-old male who presented to the emergency room with a chief complaint of shortness of breath, fever, and cough. He states he was doing well at home until yesterday evening when he began to feel short of breath. He also reports increasing cough with some sputum production. He had a fever of 100.9 at home. He also reports he had been ambulating at home with a walker without difficulty until yesterday when he was unable to walk and felt like his legs were going to give out on him. He decided to come to the emergency room for evaluation. The patient denies chest pain or pressure. Denies nausea or vomiting. Denies difficulty urinating. Denies change in bowel habits. Denies dizziness or lightheadedness. The patient was recently hospitalized from 05/12/2018 until 05/20/2018 for pneumonia. He was discharged home on a 14 day course of Rocephin. During that hospitalization the patient had a sputum culture positive for E. coli. The patient did undergo a therapeutic bronchoscopy on 05/15/2018. Multiple mucous plugs were visualized per procedure report. Bronchial washings culture was positive for Radha albicans. 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 He has also had a myocardial infarction 2006 and 2007. His past surgical history includes bowel resection, cholecystectomy, coronary artery bypass graft, heart catheterization with multiple stents, hernia repair, and joint replacements. He has had multiple hospitalizations for pneumonia and sepsis. The patients LFTs were elevated during a previous hospitalization, but were trending downward. Records were obtained from Dr. Boo office during last hospitalization. Patient was last seen in their office in August 2017. According to Dr. Mcgrath's dictation patient has a history of pancreatic tail neuroendocrine tumor. Surgical options were discussed with patient, although Dr. Mcgrath did mention patient was not a great surgical candidate. The patient and his decided against surgical intervention. The patient had a CT scan in 08/2017 of his abdomen and pelvis which revealed several small geographic areas of hypodensity in the subcapsular region of both liver lobes, with overlying mild capsular retraction. These areas are larger and new from prior exam. Dr. Mcgrath recommended 6 month follow up with octreoscan to make determination of liver issue. The patient was supposed to have this imaging completed this month but was hospitalized at that time. Patient has not scheduled an appointment to have testing completed. Chest x-ray: Correlate for possible pneumonia or atypical presentation of congestive heart failure. Possible new retrocardiac consolidation seen on lateral view. Laboratory data on admission reveals white count of 13.2. Hemoglobin 8.2. Platelet count 202. INR 1.4. Sodium 140. Potassium 3.9. BUN 38. Creatinine 1.38. Lactic acid 2.8. Repeat lactic acid 2.0. A museum 1.4. AST 86. ALT 71. BNP 11,100 Urinalysis reveals: 1+ proteinuria, 2+ bilirubin, but otherwise unremarkable. The patient was admitted to the hospital under the care of Dr. Romero. Consultations were placed to infectious disease and pulmonary. 05/23/2018 Patient seen and examined at the bedside. Patient states his breathing has improved since yesterday. He remains on NC with oxygen saturations greater than 92%. His Eliquis is on hold for PICC line insertion which is to be performed today as Midline catheter has been malfunctioning. Dr. Romero spoke in depth with patient regarding possibility of transferring patient downtown to [facility] for treatment of his pneumonia and also further investigation by his pancreatic specialist, Dr. Mcgrath. Patient does not want to be transferred downtown at this time. Objective - Vital Signs Vital signs: Vital Signs Temp 96.8 F L 05/26/18 07:20 Pulse 66 05/26/18 07:20 Resp 18 05/26/18 07:20 BP 128/92 05/26/18 07:20 Pulse Ox 88 L 05/26/18 07:20 Intake & Output 05/25/18 05/26/18 05/26/18 18:59 06:59 18:59 Weight 100.108 kg 99.3 kg Other: # Voids 2 2 # Bowel Movements 1 0 - Labs CBC & Chem 7: 05/26/18 06:11 05/26/18 06:11 Labs: Abnormal Lab Results - Last 24 Hours (Table) 05/25/18 05/25/18 05/25/18 Range/Units 11:53 17:26 20:29 RBC (4.30-5.90) m/uL Hgb (13.0-17.5) gm/dL Hct (39.0-53.0) % MCV (80.0-100.0) fL MCH (25.0-35.0) pg MCHC (31.0-37.0) g/dL RDW (11.5-15.5) % Lymphocytes # (1.0-4.8) k/uL Carbon Dioxide (22-30) mmol/L BUN (9-20) mg/dL Creatinine (0.66-1.25) mg/dL Glucose (74-99) mg/dL POC Glucose (mg/dL) 213 H 186 H 186 H (75-99) mg/dL Alkaline Phosphatase (38-126) U/L Albumin (3.5-5.0) g/dL 05/26/18 05/26/18 05/26/18 Range/Units 06:11 06:11 07:25 RBC 4.00 L (4.30-5.90) m/uL Hgb 8.3 L (13.0-17.5) gm/dL Hct 30.3 L (39.0-53.0) % MCV 75.9 L (80.0-100.0) fL MCH 20.8 L (25.0-35.0) pg MCHC 27.4 L (31.0-37.0) g/dL RDW 20.8 H (11.5-15.5) % Lymphocytes # 0.7 L (1.0-4.8) k/uL Carbon Dioxide 32 H (22-30) mmol/L BUN 35 H (9-20) mg/dL Creatinine 1.27 H (0.66-1.25) mg/dL Glucose 163 H (74-99) mg/dL POC Glucose (mg/dL) 167 H (75-99) mg/dL Alkaline Phosphatase 134 H (38-126) U/L Albumin 3.0 L (3.5-5.0) g/dL Microbiology - Last 24 Hours (Table) 05/22/18 13:02 Blood Culture - Preliminary Blood No Growth after 72 hours 05/22/18 09:10 Blood Culture - Preliminary Blood No Growth after 72 hours 05/23/18 08:30 Gram Stain - Preliminary Sputum Sputum Culture - Preliminary Radha albicans Presumptive Staph aureus Assessment and Plan Plan: ASSESSMENT: Gram negative pneumonia, xray on admission reveals possibility of retro cardiac consolidation, awaiting repeat CXR Recent hospitalization for right infrahilar pneumonia, 05/12/18-05/20/18, sputum culture positive for E. coli, s/p bronch with BAL, culture positive for radha , discharged home on 14 day course of Rocephin Recent hospitalization for right lower lobe pneumonia 04/29/2018-05/05/2018, discharged home on 7 day course of Levaquin Recent hospitalization for sepsis and pneumonia, discharged 04/16/2018 on 10 day regimen of Vancomycin Paroxysmal atrial fibrillation, maintained on long-term anticoagulation with Eliquis Coronary artery disease with previous coronary artery bypass grafting and previous stent placement Diabetes mellitus type II Multiple previous hospital admissions for pneumonia and sepsis Obstructive sleep apnea, Patient reports compliance with CPAP Acute on chronic systolic congestive heart failure, EF 35-40%, improved Microcytic hypochromic anemia, etiology unclear, patient was to have colonoscopy 03/2018 but unable to have procedure due to fevers and weakness. 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 Mcgrath, patient declined surgical intervention Transaminitis, etiology unclear, may be secondary to pancreatic tail neuroendocrine tumor and/or several areas of hypodensity in subcapsular region of both liver lobes, patient follows outpatient with Dr. Mcgrath. May be related to antibiotics per Dr. Salas. Chronic adrenal insufficiency, maintained on Cortef Previous cellulitis with MRSA History of MRSA pneumonia Hyperlipidemia Osteoarthritis Hypothyroidism Obesity: BMI 34.1 Stage 2 pressure ulcer of buttocks, present on admission Hypomagnesemia PLAN: Infectious disease and pulmonary on consult. Appreciate recommendations and input Patient scheduled for PICC line insertion as midline catheter has been occluding Hold Eliquis until PICC line insertion is completed Home meds as appropriate Monitor labs GI prophylaxis: Protonix 40 mg PO BID DVT prophylaxis: AMBIKA hose to bilateral lower extremities Monitor vital signs and address as appropriate Discharge planning: Patient to return home when stable Further recommendations pending patient's course Dr. Romero spoke in depth with patient regarding possibility of transferring patient downtown to [facility] for treatment of his pneumonia and also further investigation by his pancreatic specialist, Dr. Mcgrath. Patient does not want to be transferred downtown at this time. Nurse practitioner note has been reviewed by physician. Signing provider agrees with the documented findings, assessment, and plan of care.
--- NOTE | 2018-05-26 12:16 | P.PN ---
Subjective Progress Note Date: 05/26/18 Principal diagnosis: Polymicrobial multi during drug-resistant E. coli pneumonia, MRSA pneumonia, acute COPD exacerbation, severe COPD and chronic hypoxic respirator failure, acute on chronic systolic heart failure, chronic atrial fibrillation, obstructive sleep apnea 05/26/2018, patient seen eval reexamined during the rounds clinically patient is slightly better still short of breath cough congestion is present his sputum is growing MRSA now patient recently has been found to have E. coli pneumonia for which he is currently treated with IV Zosyn as well as vancomycin ID service is following Objective - Vital Signs Vital signs: Vital Signs Temp 96.8 F L 05/26/18 07:20 Pulse 74 05/26/18 11:48 Resp 18 05/26/18 08:07 BP 128/92 05/26/18 07:20 Pulse Ox 88 L 05/26/18 07:20 Intake & Output 05/25/18 05/26/18 05/26/18 18:59 06:59 18:59 Weight 100.108 kg 99.3 kg Other: # Voids 2 2 # Bowel Movements 1 0 - Exam General appearance: alert, in no apparent distress Head exam: Present: atraumatic, normocephalic, normal inspection Eye exam: Present: normal appearance, PERRL, EOMI. Absent: scleral icterus, conjunctival injection, periorbital swelling ENT exam: Present: normal exam, normal oropharynx, mucous membranes moist, TM's normal bilaterally Neck exam: Present: normal inspection, full ROM. Absent: tenderness, meningismus, lymphadenopathy Respiratory exam: Present: wheezes, rhonchi , mainly on forced expiration, Absent: normal lung sounds bilaterally, respiratory distress, rales, stridor Cardiovascular Exam: Present: regular rate, normal rhythm, normal heart sounds. Absent: systolic murmur, diastolic murmur, rubs, gallop, clicks GI/Abdominal exam: Present: soft, normal bowel sounds. Absent: distended, tenderness, guarding, rebound, rigid Neurological exam: Present: alert, oriented X3, CN II-XII intact Skin exam: Present: warm, dry, intact, normal color. Absent: rash - Labs CBC & Chem 7: 05/26/18 06:11 05/26/18 06:11 Labs: Abnormal Lab Results - Last 24 Hours (Table) 05/25/18 05/25/1805/26/18 Range/Units 17:26 20:29 06:11 RBC 4.00 L (4.30-5.90) m/uL Hgb 8.3 L (13.0-17.5) gm/dL Hct 30.3 L (39.0-53.0) % MCV 75.9 L (80.0-100.0) fL MCH 20.8 L (25.0-35.0) pg MCHC 27.4 L (31.0-37.0) g/dL RDW 20.8 H (11.5-15.5) % Lymphocytes # 0.7 L (1.0-4.8) k/uL Carbon Dioxide (22-30) mmol/L BUN (9-20) mg/dL Creatinine (0.66-1.25) mg/dL Glucose (74-99) mg/dL POC Glucose (mg/dL) 186 H 186 H (75-99) mg/dL Alkaline Phosphatase (38-126) U/L Albumin (3.5-5.0) g/dL 05/26/18 05/26/18 Range/Units 06:11 07:25 RBC (4.30-5.90) m/uL Hgb (13.0-17.5) gm/dL Hct (39.0-53.0) % MCV (80.0-100.0) fL MCH (25.0-35.0) pg MCHC (31.0-37.0) g/dL RDW (11.5-15.5) % Lymphocytes # (1.0-4.8) k/uL Carbon Dioxide 32 H (22-30) mmol/L BUN 35 H (9-20) mg/dL Creatinine 1.27 H (0.66-1.25) mg/dL Glucose 163 H (74-99) mg/dL POC Glucose (mg/dL) 167 H (75-99) mg/dL Alkaline Phosphatase 134 H (38-126) U/L Albumin 3.0 L (3.5-5.0) g/dL Microbiology - Last 24 Hours (Table) 05/22/18 09:10 Blood Culture - Preliminary Blood No Growth after 96 hours 05/23/18 08:30 Gram Stain - Preliminary Sputum Sputum Culture - Preliminary Radha albicans Methicillin resist S. aureus 05/22/18 13:02 Blood Culture - Preliminary Blood No Growth after 72 hours Assessment and Plan Assessment: Polymicrobial pneumonia associated with multi drug-resistant E. coli as well as MRSA Gram-negative pneumonia related to E. coli on therapy with IV Zosyn and vancomycin Sirs-like process due to above Severe degree of sleep disorder breathing and sleep apnea Congestive heart failure Chronic atrial fibrillation History of prior NC and diabetes and chronic anemia Dyslipidemia Plan: Continue broad-spectrum antibiotics and supportive care Continue antibiotics Follow-up on culture results and report Further recommendations pending plan of care as per clinical response of the patient Continue DVT and peptic ulcer disease prophylaxis Continue deep breathing exercise bronchodilators Recommend to hold on IV steroids Further recommendations pending plan of care as per clinical response of the patient Time with Patient: Greater than 30
[2018-05-26 12:55] LABS: Glucose,Whole Blood 225 mg/dL (75-99)
--- NOTE | 2018-05-26 13:45 | P.PN ---
Subjective Progress Note Date: 05/26/18 57-year-old male who presented to the emergency room with a chief complaint of shortness of breath, fever, and cough. He states he was doing well at home until yesterday evening when he began to feel short of breath. He also reports increasing cough with some sputum production. He had a fever of 100.9 at home. He also reports he had been ambulating at home with a walker without difficulty until yesterday when he was unable to walk and felt like his legs were going to give out on him. He decided to come to the emergency room for evaluation. The patient denies chest pain or pressure. Denies nausea or vomiting. Denies difficulty urinating. Denies change in bowel habits. Denies dizziness or lightheadedness. The patient was recently hospitalized from 05/12/2018 until 05/20/2018 for pneumonia. He was discharged home on a 14 day course of Rocephin. During that hospitalization the patient had a sputum culture positive for E. coli. The patient did undergo a therapeutic bronchoscopy on 05/15/2018. Multiple mucous plugs were visualized per procedure report. Bronchial washings culture was positive for Jumana albicans. 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 He has also had a myocardial infarction 2006 and 2007. His past surgical history includes bowel resection, cholecystectomy, coronary artery bypass graft, heart catheterization with multiple stents, hernia repair, and joint replacements. He has had multiple hospitalizations for pneumonia and sepsis. The patients LFTs were elevated during a previous hospitalization, but were trending downward. Records were obtained from Dr. Boo office during last hospitalization. Patient was last seen in their office in August 2017. According to Dr. Mcgrath's dictation patient has a history of pancreatic tail neuroendocrine tumor. Surgical options were discussed with patient, although Dr. Mcgrath did mention patient was not a great surgical candidate. The patient and his decided against surgical intervention. The patient had a CT scan in 08/2017 of his abdomen and pelvis which revealed several small geographic areas of hypodensity in the subcapsular region of both liver lobes, with overlying mild capsular retraction. These areas are larger and new from prior exam. Dr. Mcgrath recommended 6 month follow up with octreoscan to make determination of liver issue. The patient was supposed to have this imaging completed this month but was hospitalized at that time. Patient has not scheduled an appointment to have testing completed. Chest x-ray: Correlate for possible pneumonia or atypical presentation of congestive heart failure. Possible new retrocardiac consolidation seen on lateral view. Laboratory data on admission reveals white count of 13.2. Hemoglobin 8.2. Platelet count 202. INR 1.4. Sodium 140. Potassium 3.9. BUN 38. Creatinine 1.38. Lactic acid 2.8. Repeat lactic acid 2.0. Bilirubin 1.4. AST 86. ALT 71. BNP 11,100 Urinalysis reveals: 1+ proteinuria, 2+ bilirubin, but otherwise unremarkable. The patient was admitted to the hospital under the care of Dr. Romero. Consultations were placed to infectious disease and pulmonary. 05/23/2018 Patient seen and examined at the bedside. Patient states his breathing has improved since yesterday. He remains on NC with oxygen saturations greater than 92%. His Eliquis is on hold for PICC line insertion which is to be performed today as Midline catheter has been malfunctioning. Dr. Romero spoke in depth with patient regarding possibility of transferring patient downtown to [facility] for treatment of his pneumonia and also further investigation by his pancreatic specialist, Dr. Mcgrath. Patient does not want to be transferred downtown at this time. 05/24/2018-Note per Dr. Romero 05/25/2018-Note per Dr. Romero 05/26/2018-Patient seen and examined at the bedside. Patient is sitting on the side of the bed eating lunch. He reports his breathing is at his baseline. He denies shortness of breath. Denies chest pain or pressure. Denies nausea or vomiting. Appetite is good. Sputum culture is positive for MRSA. He remains on vanco and zosyn. He is maintaining oxygen saturations greater than 92% on NC. Afebrile. Vital signs are stable. Patient does complain of mild pain to bilateral ankles due to swelling. AMBIKA eliecere are in place bilaterally. Patient encouraged to elevate bilateral LE when he is laying in bed. Objective - Vital Signs Vital signs: Vital Signs Temp 96.8 F L 05/26/18 07:20 Pulse 74 05/26/18 11:48 Resp 18 05/26/18 08:07 BP 128/92 05/26/18 07:20 Pulse Ox 88 L 05/26/18 07:20 Intake & Output 05/25/18 05/26/18 05/26/18 18:59 06:59 18:59 Output Total 825 Balance -825 Weight 100.108 kg 99.3 kg Output: Urine 825 Other: # Voids 2 2 3 # Bowel Movements 1 0 - Exam GENERAL: This is a 57-year-old male in no apparent distress at the time of examination. Pleasant and cooperative. HEENT: Head is atraumatic, normocephalic. Pupils are equal, round, and reactive to light. Sclerae anicteric. Conjunctivae are clear. Mucus membranes of the mouth are moist. Neck is supple. RESPIRATORY: Some rhonchi present to bilateral bases on expiration. No wheezing or crackles noted. No use of accessory muscles. Patient maintaining oxygen saturation greater than 92%. No chest wall tenderness is noted on palpation or with deep breathing. CARDIOVASCULAR: Regular rate and rhythm. S1 and S2 noted. No systolic or diastolic murmur auscultated. No JVD noted. No S3 or S4 noted. GASTROINTESTINAL: No distention noted. Abdomen soft and round. Normal active bowel sounds auscultated x 4 quadrants. No pain or tenderness noted upon palpation. INTEGUMENTARY: No cyanosis. No jaundice. No rashes noted. No cellulitis noted. EXTREMITIES: 1+ peripheral pulses. +2-3 BL LE edema. Mild tenderness to palpation of bilateral ankles. No calf tenderness noted. NEUROLOGIC: Cranial nerves II-XII intact. PSYCHIATRIC: Awake, alert, and oriented X 3. Appropriate affect. Intact judgement and insight. - Labs CBC & Chem 7: 05/26/18 06:11 05/26/18 06:11 Labs: Abnormal Lab Results - Last 24 Hours (Table) 05/25/18 05/25/18 05/26/18 Range/Units 17:26 20:29 06:11 RBC 4.00 L (4.30-5.90) m/uL Hgb 8.3 L (13.0-17.5) gm/dL Hct 30.3 L (39.0-53.0) % MCV 75.9 L (80.0-100.0) fL MCH 20.8 L (25.0-35.0) pg MCHC 27.4 L (31.0-37.0) g/dL RDW 20.8 H (11.5-15.5) % Lymphocytes # 0.7 L (1.0-4.8) k/uL Carbon Dioxide (22-30) mmol/L BUN (9-20) mg/dL Creatinine (0.66-1.25) mg/dL Glucose (74-99) mg/dL POC Glucose (mg/dL) 186 H 186 H (75-99) mg/dL Alkaline Phosphatase (38-126) U/L Albumin (3.5-5.0) g/dL 05/26/18 05/26/18 05/26/18 Range/Units 06:11 07:25 12:25 RBC (4.30-5.90) m/uL Hgb (13.0-17.5) gm/dL Hct (39.0-53.0) % MCV (80.0-100.0) fL MCH (25.0-35.0) pg MCHC (31.0-37.0) g/dL RDW (11.5-15.5) % Lymphocytes # (1.0-4.8) k/uL Carbon Dioxide 32 H (22-30) mmol/L BUN 35 H (9-20) mg/dL Creatinine 1.27 H (0.66-1.25) mg/dL Glucose 163 H (74-99) mg/dL POC Glucose (mg/dL) 167 H 225 H (75-99) mg/dL Alkaline Phosphatase 134 H (38-126) U/L Albumin 3.0 L (3.5-5.0) g/dL Microbiology - Last 24 Hours (Table) 05/22/18 09:10 Blood Culture - Preliminary Blood No Growth after 96 hours 05/23/18 08:30 Gram Stain - Preliminary Sputum Sputum Culture - Preliminary Jumana albicans Methicillin resist S. aureus 05/22/18 13:02 Blood Culture - Preliminary Blood No Growth after 72 hours Assessment and Plan Plan: ASSESSMENT: Recurrent pneumonia, sputum positive for MRSA Recent hospitalization for right infrahilar pneumonia, 05/12/18-05/20/18, sputum culture positive for E. coli, s/p bronch with BAL, culture positive for jumana , discharged home on 14 day course of Rocephin Recent hospitalization for right lower lobe pneumonia 04/29/2018-05/05/2018, discharged home on 7 day course of Levaquin Recent hospitalization for sepsis and pneumonia, discharged 04/16/2018 on 10 day regimen of Vancomycin Paroxysmal atrial fibrillation, maintained on long-term anticoagulation with Eliquis Coronary artery disease with previous coronary artery bypass grafting and previous stent placement Diabetes mellitus type II Multiple previous hospital admissions for pneumonia and sepsis Obstructive sleep apnea, Patient reports compliance with CPAP Acute on chronic systolic congestive heart failure, EF 35-40%, improved Microcytic hypochromic anemia, etiology unclear, patient was to have colonoscopy 03/2018 but unable to have procedure due to fevers and weakness. 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 Mcgrath, patient declined surgical intervention History of transaminitis, etiology unclear, may be secondary to pancreatic tail neuroendocrine tumor and/or several areas of hypodensity in subcapsular region of both liver lobes, patient follows outpatient with Dr. Mcgrath. May be related to antibiotics per Dr. Slaas. Chronic adrenal insufficiency, maintained on Cortef Previous cellulitis with MRSA History of MRSA pneumonia Hyperlipidemia Osteoarthritis Hypothyroidism Obesity: BMI 34.1 Stage 2 pressure ulcer of buttocks, present on admission Hypomagnesemia PLAN: Infectious disease and pulmonary on consult. Appreciate recommendations and input Antibiotics per ID Home meds as appropriate Monitor labs GI prophylaxis: Protonix 40 mg PO BID DVT prophylaxis: AMBIKA hose to bilateral lower extremities Monitor vital signs and address as appropriate Discharge planning: Patient to return home when stable Further recommendations pending patient's course Dr. Romero spoke in depth with patient regarding possibility of transferring patient downtown to [facility] for treatment of his pneumonia and also further investigation by his pancreatic specialist, Dr. Mcgrath. Patient does not want to be transferred downtown at this time. Patient to follow up outpatient after DC. Possible discharge home tomorrow if patient remains stable Nurse practitioner note has been reviewed by physician. Signing provider agrees with the documented findings, assessment, and plan of care.
[2018-05-26 17:43] LABS: Glucose,Whole Blood 79 mg/dL (75-99)
[2018-05-26] MEDS: MONTELUKAST 10 MG TAB PO SCH (19:52)
[2018-05-26] MEDS: ATORVASTATIN 80 MG TAB PO SCH (19:52)
[2018-05-26] MEDS: LEVOTHYROXINE 50 MCG TAB PO SCH (19:53)
[2018-05-26] MEDS: amLODIPine 5 MG TAB PO SCH (19:54)
[2018-05-26 20:53] LABS: Glucose,Whole Blood 169 mg/dL (75-99)
--- NOTE | 2018-05-26 23:01 | P.PN ---
Subjective Progress Note Date: 05/26/18 Pleasant 57-year-old male with multiple recent hospitalizations for discharge on 05/20/2018 for recent bout of E. coli pneumonia found at the time of his bronchoscopy. The patient had been treated as an outpatient levofloxacin E. coli was resistant and as he had marked improvement he was discharged home on intravenous ceftriaxone. The patient however rapidly became ill with fever cough and malaise and constantly was brought back to the emergency center and admitted for worsening pneumonia. The patient relates that 48 hours ago his legs were then now become quite swollen again. He is short of breath he has cough and sputum production. His fever is improved but was 101.3 earlier. This evening he sitting upright is eating some food and relates that he feels better than at home. He is denying chills or rigors. As the ulceration to his coccyx that is treated with the sacral dressing which is finding soothing. 05/23/2018 the patient is feeling considerably better today. He sitting upright and eating his meal without difficulties. His shortness of breath is improved. His fever has resolved. His mentation has improved. No new acute complaints. 05/26/2018 the patient continues to have improvement of his status. Sputum culture is now available and MRSA has been isolated. With recent bronchoscopy and had evidence of E. coli. Patient is feeling better and is wondering what we 'll go on as far as his discharge plan. He relates will be going to home and would not go to rehab. Objective - Vital Signs Vital signs: Vital Signs Temp 97.1 F L 05/26/18 14:20 Pulse 70 05/26/18 21:47 Resp 18 05/26/18 15:23 BP 158/84 05/26/18 14:20 Pulse Ox 100 05/26/18 14:20 Intake & Output 05/26/18 05/26/18 05/27/18 06:59 18:59 06:59 Output Total 825 Balance -825 Weight 99.3 kg Output: Urine 825 Other: # Voids 2 3 # Bowel Movements 0 - Exam Gen: This is a obese 57-year-old male. awake and alert to questions appropriately. He does not appear to be in any respiratory distress. HEENT: Head is atraumatic, normocephalic. Pupils equal, round. Sclerae is anicteric. Oral mucous membranes are very dry. No thrush noted. Patient is edentulous. NECK: Supple. No JVD. No lymphadenopathy. No thyromegaly. LUNGS: Symmetrical bilateral air entry, basilar crackles right greater than left few expiratory wheezes no dullness or egophony HEART: Regular rate and rhythm. No murmur. ABDOMEN: Soft. Bowel sounds are present. No masses. No tenderness. EXTREMITIES: Upper extremities intact, IV right arm without difficulties Lower extremities have significant bilateral lower extremity edema but no ulcerations, improving with the application of AMBIKA hose Skin: the ulceration to the coccyx is improved and is soothed by the pad in place NEUROLOGICAL: Awake alert oriented person place and time exhibits no acute gross focal sensory motor deficits - Labs CBC & Chem 7: 05/26/18 06:11 05/26/18 06:11 Labs: Abnormal Lab Results - Last 24 Hours (Table) 05/26/18 05/26/18 05/26/18 Range/Units 06:11 06:11 07:25 RBC 4.00 L (4.30-5.90) m/uL Hgb 8.3 L (13.0-17.5) gm/dL Hct 30.3 L (39.0-53.0) % MCV 75.9 L (80.0-100.0) fL MCH 20.8 L (25.0-35.0) pg MCHC 27.4 L (31.0-37.0) g/dL RDW 20.8 H (11.5-15.5) % Lymphocytes # 0.7 L (1.0-4.8) k/uL Carbon Dioxide 32 H (22-30) mmol/L BUN 35 H (9-20) mg/dL Creatinine 1.27 H (0.66-1.25) mg/dL Glucose 163 H (74-99) mg/dL POC Glucose (mg/dL) 167 H (75-99) mg/dL Alkaline Phosphatase 134 H (38-126) U/L Albumin 3.0 L (3.5-5.0) g/dL 05/26/18 05/26/18 Range/Units 12:25 20:52 RBC (4.30-5.90) m/uL Hgb (13.0-17.5) gm/dL Hct (39.0-53.0) % MCV (80.0-100.0) fL MCH (25.0-35.0) pg MCHC (31.0-37.0) g/dL RDW (11.5-15.5) % Lymphocytes # (1.0-4.8) k/uL Carbon Dioxide (22-30) mmol/L BUN (9-20) mg/dL Creatinine (0.66-1.25) mg/dL Glucose (74-99) mg/dL POC Glucose (mg/dL) 225 H 169 H (75-99) mg/dL Alkaline Phosphatase (38-126) U/L Albumin (3.5-5.0) g/dL Microbiology - Last 24 Hours (Table) 05/22/18 13:02 Blood Culture - Preliminary Blood No Growth after 96 hours 05/22/18 09:10 Blood Culture - Preliminary Blood No Growth after 96 hours 05/23/18 08:30 Gram Stain - Preliminary Sputum Sputum Culture - Preliminary Radha albicans Methicillin resist S. aureus Laboratory Results WBC 7.9 k/uL (3.8-10.6) 05/26/18 06:11 RBC 4.00 m/uL (4.30-5.90) L 05/26/18 06:11 Hgb 8.3 gm/dL (13.0-17.5) L 05/26/18 06:11 Hct 30.3 % (39.0-53.0) L 05/26/18 06:11 MCV 75.9 fL (80.0-100.0) L 05/26/18 06:11 MCH 20.8 pg (25.0-35.0) L 05/26/18 06:11 MCHC 27.4 g/dL (31.0-37.0) L 05/26/18 06:11 RDW 20.8 % (11.5-15.5) H 05/26/18 06:11 Plt Count 257 k/uL (150-450) 05/26/18 06:11 Neutrophils % 76 % 05/26/18 06:11 Lymphocytes % 9 % 05/26/18 06:11 Monocytes % 10 % 05/26/18 06:11 Eosinophils % 1 % 05/26/18 06:11 Basophils % 0 % 05/26/18 06:11 Neutrophils # 6.0 k/uL (1.3-7.7) 05/26/18 06:11 Lymphocytes # 0.7 k/uL (1.0-4.8) L 05/26/18 06:11 Monocytes # 0.8 k/uL (0-1.0) 05/26/18 06:11 Eosinophils # 0.1 k/uL (0-0.7) 05/26/18 06:11 Basophils # 0.0 k/uL (0-0.2) 05/26/18 06:11 Hypochromasia Marked 05/26/18 06:11 Poikilocytosis Slight 05/26/18 06:11 Anisocytosis Moderate 05/26/18 06:11 Microcytosis Moderate 05/26/18 06:11 PT 13.3 sec (9.0-12.0) H 05/22/18 09:10 INR 1.4 (<1.2) H 05/22/18 09:10 APTT 26.3 sec (22.0-30.0) 05/22/18 09:10 Sodium 141 mmol/L (137-145) 05/26/18 06:11 Potassium 4.6 mmol/L (3.5-5.1) 05/26/18 06:11 Chloride 102 mmol/L (98-107) 05/26/18 06:11 Carbon Dioxide 32 mmol/L (22-30) H 05/26/18 06:11 Anion Gap 7 mmol/L 05/26/18 06:11 BUN 35 mg/dL (9-20) H 05/26/18 06:11 Creatinine 1.27 mg/dL (0.66-1.25) H 05/26/18 06:11 Est GFR (CKD-EPI)AfAm 71 (>60 ml/min/1.73 sqM) 05/26/18 06:11 Est GFR (CKD-EPI)NonAf 61 (>60 ml/min/1.73 sqM) 05/26/18 06:11 Glucose 163 mg/dL (74-99) H 05/26/18 06:11 POC Glucose (mg/dL) 169 mg/dL (75-99) H 05/26/18 20:52 POC Glu Document Preparer Microfilming ID Fany Gibbs 05/26/18 20:[address] Glu mg/dL 148 05/22/18 09:10 Hemoglobin A1c 6.8 % (4.0-6.0) H 05/22/18 09:10 Lactic Ac Sepsis Rflx Y 05/22/18 09:48 Plasma Lactic Acid Freddy 2.0 mmol/L (0.7-2.0) 05/22/18 13:02 Calcium 8.8 mg/dL (8.4-10.2) 05/26/18 06:11 Magnesium 1.9 mg/dL (1.6-2.3) 05/23/18 07:46 Total Bilirubin 0.8 mg/dL (0.2-1.3) 05/26/18 06:11 AST 37 U/L (17-59) 05/26/18 06:11 ALT 53 U/L (21-72) 05/26/18 06:11 Alkaline Phosphatase 134 U/L (38-126) H 05/26/18 06:11 Total Creatine Kinase 39 U/L (55-170) L 05/22/18 09:10 CK-MB (CK-2) 4.3 ng/mL (0.0-2.4) H 05/22/18 09:10 CK-MB (CK-2) Rel Index 11.0 05/22/18 09:10 Troponin I 0.013 ng/mL (0.000-0.034) 05/22/18 09:10 NT-Pro-B Natriuret Pep 08930 pg/mL 05/22/18 09:10 Total Protein 6.3 g/dL (6.3-8.2) 05/26/18 06:11 Albumin 3.0 g/dL (3.5-5.0) L 05/26/18 06:11 Procalcitonin 1.03 ng/mL (0.02-0.09) H 05/22/18 09:10 Urine Color Yellow 05/22/18 09:10 Urine Appearance Clear (Clear) 05/22/18 09:10 Urine pH 6.0 (5.0-8.0) 05/22/18 09:10 Ur Specific [place] 1.018 (1.001-1.035) 05/22/18 09:10 Urine Protein 1+ (Negative) H 05/22/18 09:10 Urine Glucose (UA) Negative (Negative) 05/22/18 09:10 Urine Ketones Negative (Negative) 05/22/18 09:10 Urine Blood Negative (Negative) 05/22/18 09:10 Urine Nitrite Negative (Negative) 05/22/18 09:10 Urine Bilirubin 2+ (Negative) H 05/22/18 09:10 Urine Urobilinogen <2.0 mg/dL (<2.0) 05/22/18 09:10 Ur Leukocyte Esterase Negative (Negative) 05/22/18 09:10 Urine RBC 2 /hpf (0-5) 05/22/18 09:10 Urine WBC 2 /hpf (0-5) 05/22/18 09:10 Ur Squamous Epith Cells <1 /hpf (0-4) 05/22/18 09:10 Vancomycin Trough 18.2 ug/mL 05/26/18 06:11 Microbiology 05/22/18 13:02 Blood Blood Culture - Preliminary No Growth after 96 hours 05/22/18 09:10 Blood Blood Culture - Preliminary No Growth after 96 hours 05/23/18 08:30 Sputum Gram Stain - Preliminary 05/23/18 08:30 Sputum Sputum Culture - Preliminary Radha albicans Methicillin resist S. aureus 05/22/18 09:10 Urine,Voided Urine Culture - Final Assessment and Plan (1) Fever Current Visit: Yes Status: Acute Code(s): R50.9 - FEVER, UNSPECIFIED SNOMED Code(s): 190156498 (2) Failure of outpatient treatment Current Visit: Yes Status: Acute Code(s): Z78.9 - OTHER SPECIFIED HEALTH STATUS SNOMED Code(s): 668255719 (3) Gram-negative pneumonia Narrative/Plan: 57 year old male who has multiple medical troubles including multiple recent hospitalizations for pneumonia. MRSA was isolated originally, was treated and had some improvement. Had some relapsing pneumonia responded to further course of antibiotic therapy. He then relapsed again and Escherichia coli was found at the time of bronchoscopy that was resistant to fluoroquinolones. He subsequently was placed on ceftriaxone with marked clinical improvement and discharged to home. Within 48 hours if patient became febrile and increasing cough and sputum production and consequently presents back to hospital for admission. With the recurrent pneumonia antibiotic therapy is altered piperacillin tazobactam and vancomycin pending further blood and culture results of sputum. Fortunately the patient is feeling slightly better since admission. The patient is to use his home BiPAP whenever he is sleeping. Including daytime naps. In the past he does not wear it he does develop some CO2 narcosis. I'm requesting to speak with the regarding the cleaning of the unit. Manufactures usually indicate cleaning tubing and mask with warm water and detergent thoroughly rinsing and allowing to dry usually in a hanging position. The water tank should also be cleaned with warm water and detergent. The goal of the detergent is disrupt any biofilm that forms that may then results of infections. 05/23/2018 reveals the patient be considerably improved today. He is less short of breath. His mentation is back to baseline. He is without much discomfort. He's been able to ambulate. He does have lower extremity edema. We'll ask the nursing to apply some AMBIKA hose to his legs with his edema and elevate his legs. Antibiotic therapy is noted as well as Zosyn and vancomycin until we have further culture data. Most recent bronchoscopy showed E. coli that was susceptible to Rocephin that he was receiving at home with had a marked worsening of his status. Is having excellent improvement at this time with antibiotic therapy. Await cultures to further define her course of antibiotics at discharge. 05/26/2018 the patient has further improvement. Lower extremity edema is improved. The most recent cultures reveal evidence of MRSA in his sputum, recent bronchoscopy reveal evidence of E. coli. When improved we'll make arrangements when he is ready for discharge home to complete treatment with vancomycin and likely Rocephin. Current Visit: Yes Status: Acute Code(s): J15.6 - PNEUMONIA DUE TO OTHER GRAM-NEGATIVE BACTERIA SNOMED Code(s): 471714368
[2018-05-27] MEDS: PIPERACILLIN-TAZOBACTAM 3.375 GM in DEXTROSE/WATER 1 50ML.BAG IVPB SCH (04:24)
[2018-05-27] MEDS: VANCOMYCIN 1,500 MG in SODIUM CHLORIDE 0.9% 250 ML IVPB SCH (07:11)
[2018-05-27 07:49] LABS: Glucose,Whole Blood 95 mg/dL (75-99)
[2018-05-27] MEDS: INSULIN ASPART 100 UNIT/ML 1 ML 10 ML VIAL SQ SCH ×2 (08:01→13:29)
[2018-05-27 08:18] VITALS: BP 141/80; TEMP 98.2
[2018-05-27] MEDS: BUDESONIDE 0.5 MG/2 ML NEBU INHALATION SCH (08:22)
[2018-05-27] MEDS: IPRATROPIUM-ALBUTEROL 3 ML NEB INHALATION SCH ×2 (08:22→11:52)
[2018-05-27] MEDS: DULoxetine HCL 30 MG CAPSULE.DR PO SCH (09:03)
[2018-05-27] MEDS: ETODOLAC 400 MG TAB PO SCH (09:03)
[2018-05-27] MEDS: LISINOPRIL 5 MG TAB PO SCH (09:04)
[2018-05-27] MEDS: HYDROCORTISONE 20 MG TAB PO SCH (09:04)
[2018-05-27] MEDS: METOPROLOL TARTRATE 25 MG TAB PO SCH (09:04)
[2018-05-27] MEDS: PANTOPRAZOLE 40 MG TABLET PO SCH (09:04)
[2018-05-27] MEDS: GABAPENTIN 400 MG CAP PO SCH ×2 (09:04→13:28)
[2018-05-27] MEDS: APIXABAN 5 MG TAB PO SCH (09:05)
[2018-05-27] MEDS: LORATADINE 10 MG TAB PO SCH (09:05)
[2018-05-27] MEDS: FUROSEMIDE 20 MG TAB PO SCH (09:05)
[2018-05-27] MEDS: POTASSIUM CHLORIDE ER 20 MEQ TAB.ER PO SCH (09:05)
[2018-05-27] MEDS: INSULIN DETEMIR 100 UNIT/ML 10 ML VIAL SQ SCH (09:06)
[2018-05-27] MEDS: CLOTRIMAZOLE/BETAMETH 1-0.05% CREAM 45 GM TUBE TOPICAL SCH (09:16)
[2018-05-27] MEDS ORDERED: cefTRIAXone IN SWFI 2,000 MG/20 ML SYRINGE IVP STA (10:13)
[2018-05-27 11:55] VITALS: RESP 16
[2018-05-27 12:03] LABS: Glucose,Whole Blood 235 mg/dL (75-99)
[2018-05-27 12:05] VITALS: PULSE 71
--- NOTE | 2018-05-27 13:23 | P.DS ---
Providers Date of admission: 05/22/18 11:06 Expected date of discharge: 05/27/18 Attending physician: Bautista Romero Consults: 05/22/18 12:37 Consult Physician Routine Consulting Provider: Bran Hardin Consult Reason/Comments: recurrent pneumonia, pt known to you Do you want consulting provider notified?: Yes 05/22/18 12:38 Consult Physician Routine Consulting Provider: Ag Morton Consult Reason/Comments: recurrent pneumonia, pt known to you Do you want consulting provider notified?: Yes Primary care physician: Bautista Romero Hospital Course: 57-year-old male who presented to the emergency room with a chief complaint of shortness of breath, fever, and cough. He states he was doing well at home until yesterday evening when he began to feel short of breath. He also reports increasing cough with some sputum production. He had a fever of 100.9 at home. He also reports he had been ambulating at home with a walker without difficulty until yesterday when he was unable to walk and felt like his legs were going to give out on him. He decided to come to the emergency room for evaluation. The patient denies chest pain or pressure. Denies nausea or vomiting. Denies difficulty urinating. Denies change in bowel habits. Denies dizziness or lightheadedness. The patient was recently hospitalized from 05/12/2018 until 05/20/2018 for pneumonia. He was discharged home on a 14 day course of Rocephin. During that hospitalization the patient had a sputum culture positive for E. coli. The patient did undergo a therapeutic bronchoscopy on 05/15/2018. Multiple mucous plugs were visualized per procedure report. Bronchial washings culture was positive for Jumana albicans. 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 He has also had a myocardial infarction 2006 and 2007. His past surgical history includes bowel resection, cholecystectomy, coronary artery bypass graft, heart catheterization with multiple stents, hernia repair, and joint replacements. He has had multiple hospitalizations for pneumonia and sepsis. The patients LFTs were elevated during a previous hospitalization, but were trending downward. Records were obtained from Dr. Boo office during last hospitalization. Patient was last seen in their office in August 2017. According to Dr. Mcgrath's dictation patient has a history of pancreatic tail neuroendocrine tumor. Surgical options were discussed with patient, although Dr. Mcgrath did mention patient was not a great surgical candidate. The patient and his decided against surgical intervention. The patient had a CT scan in 08/2017 of his abdomen and pelvis which revealed several small geographic areas of hypodensity in the subcapsular region of both liver lobes, with overlying mild capsular retraction. These areas are larger and new from prior exam. Dr. Mcgrath recommended 6 month follow up with octreoscan to make determination of liver issue. The patient was supposed to have this imaging completed this month but was hospitalized at that time. Patient has not scheduled an appointment to have testing completed. Chest x-ray 05/22/2018: Correlate for possible pneumonia or atypical presentation of congestive heart failure. Possible new retrocardiac consolidation seen on lateral view. Chest x-ray 05/23/2018: Persistent cardiomegaly and chronic parenchymal change with right mid to lower lung infiltrate and/or atelectasis Laboratory data on admission reveals white count of 13.2. Hemoglobin 8.2. Platelet count 202. INR 1.4. Sodium 140. Potassium 3.9. BUN 38. Creatinine 1.38. Lactic acid 2.8. Repeat lactic acid 2.0. Bilirubin 1.4. AST 86. ALT 71. BNP 11,100 Urinalysis reveals: 1+ proteinuria, 2+ bilirubin, but otherwise unremarkable. The patient was evaluated by pulmonary during hospitalization. He received breathing treatments during his hospitalization. He was also evaluated by infectious disease during hospitalization. Dr. Hardin had some questions regarding if the patient is cleaning his CPAP machine at home. The patients spouse was educated on cleaning his CPAP machine and it was recommended that it be cleaned once a week. Patients verbalized understanding. He was receiving Rocephin due to recent Ecoli positive sputum culture. He was also receiving Vanco due to MRSA history. His sputum culture was positive for MRSA. The patients midline catheter was discontinued during hospitalization and a new left arm PICC was placed. Patient did complain of mild pain to bilateral ankles due to swelling. AMBIKA hose are in place bilaterally. Patient encouraged to elevate bilateral LE when he is laying in bed. Providers spoke in depth with patient regarding possibility of transferring patient downtown to [facility] for treatment of his pneumonia and also further investigation by his pancreatic specialist, Dr. Mcgrath. Patient refusing to be transferred to [facility] downto and states he will follow up outpatient with Dr. Mcgrath. The patient was deemed stable for discharge per Dr. Romero. He is to follow up on an outpatient basis with Dr. Romero, Dr. Morton, and Dr. Hardin. Patient is prescribed Vanco and Rocephin at the time of discharge per infectious disease. The patient will remain on lasix 20mg daily at the time of discharge. Patient has no crackles throughout lung roldan. He does have chronic lower extremity edema. The patient is wearing AMBIKA hose. He was also instructed to elevate his extremities anytime he is laying down in bed or while sitting in a chair. Patient and verbalized understanding. The patient was encouraged to follow up downtown with Dr. Mcgrath. Patient agreeable. DISCHARGE DIAGNOSIS: Recurrent pneumonia, sputum positive for MRSA Recent hospitalization for right infrahilar pneumonia, 05/12/18-05/20/18, sputum culture positive for E. coli, s/p bronch with BAL, culture positive for jumana , discharged home on 14 day course of Rocephin Recent hospitalization for right lower lobe pneumonia 04/29/2018-05/05/2018, discharged home on 7 day course of Levaquin Recent hospitalization for sepsis and pneumonia, discharged 04/16/2018 on 10 day regimen of Vancomycin Paroxysmal atrial fibrillation, maintained on long-term anticoagulation with Eliquis Coronary artery disease with previous coronary artery bypass grafting and previous stent placement Diabetes mellitus type II Multiple previous hospital admissions for pneumonia and sepsis Obstructive sleep apnea, Patient reports compliance with CPAP Acute on chronic systolic congestive heart failure, EF 35-40%, improved Microcytic hypochromic anemia, etiology unclear, patient was to have colonoscopy 03/2018 but unable to have procedure due to fevers and weakness. 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 Mcgrath, patient declined surgical intervention History of transaminitis, etiology unclear, may be secondary to pancreatic tail neuroendocrine tumor and/or several areas of hypodensity in subcapsular region of both liver lobes, patient follows outpatient with Dr. Mcgrath. May be related to antibiotics per Dr. Salas. Chronic adrenal insufficiency, maintained on Cortef Previous cellulitis with MRSA History of MRSA pneumonia Hyperlipidemia Osteoarthritis Hypothyroidism Obesity: BMI 34.1 Stage 2 pressure ulcer of buttocks, present on admission Hypomagnesemia, improved Nurse practitioner note has been reviewed by physician. Signing provider agrees with the documented findings, assessment, and plan of care. Patient Condition at Discharge: Stable Plan - Discharge Summary Discharge Rx Participant: No New Discharge Prescriptions: New Vancomycin 1,500 mg IVPB Q24HR #14 bag Continue Levothyroxine Sodium [Synthroid] 50 mcg PO HS Omeprazole [PriLOSEC] 20 mg PO BID Nitroglycerin Sl Tabs [Nitrostat] 0.4 mg SUBLINGUAL Q5M PRN PRN Reason: Chest Pain Furosemide [Lasix] 20 mg PO DAILY amLODIPine [Norvasc] 5 mg PO HS Gabapentin [Neurontin] 800 mg PO QID fentaNYL 25MCG/HR PATCH [Duragesic 25MCG/HR] 1 patch TRANSDERM Q72H HYDROcodone/APAP 10-325MG [[place] 10-325] 1 tab PO Q4HR PRN PRN Reason: Pain Montelukast [Singulair] 10 mg PO HS #30 tab Insulin Aspart [NovoLOG Flexpen] See Protocol SQ ACHS Multivit-Min/FA/Lycopen/Lutein [Centrum Silver Tablet] 1 tab PO DAILY DULoxetine HCL [Cymbalta] 30 mg PO BID Insulin Glargine [Lantus] 26 unit SQ BID Etodolac [Lodine] 400 mg PO BID Atorvastatin [Lipitor] 80 mg PO HS Apixaban [Eliquis] 5 mg PO BID #60 tab Metoprolol Tartrate [Lopressor] 25 mg PO BID #60 tab Lisinopril [Zestril] 5 mg PO QAM Hydrocortisone [Cortef] 20 mg PO QAM Clotrimazole/Betameth Cream [Lotrisone] 1 applic TOPICAL BID #1 applic Loratadine [Claritin] 10 mg PO DAILY #30 tab Potassium Chloride ER [K-Dur 20] 20 meq PO DAILY #30 tab cefTRIAXone [Rocephin] 2,000 mg IVPB Q24HR #14 vial Discharge Medication List Levothyroxine Sodium [Synthroid] 50 mcg PO HS 02/01/14 [History] Nitroglycerin Sl Tabs [Nitrostat] 0.4 mg SUBLINGUAL Q5M PRN 02/01/14 [History] Omeprazole [PriLOSEC] 20 mg PO BID 02/01/14 [History] Furosemide [Lasix] 20 mg PO DAILY 05/13/15 [History] Gabapentin [Neurontin] 800 mg PO QID 05/13/15 [History] amLODIPine [Norvasc] 5 mg PO HS 05/13/15 [History] HYDROcodone/APAP 10-325MG [[place] 10-325] 1 tab PO Q4HR PRN 07/17/16 [History] fentaNYL 25MCG/HR PATCH [Duragesic 25MCG/HR] 1 patch TRANSDERM Q72H 07/17/16 [ History] Montelukast [Singulair] 10 mg PO HS #30 tab 11/21/16 [Rx] Insulin Aspart [NovoLOG Flexpen] See Protocol SQ ACHS 02/10/17 [History] Multivit-Min/FA/Lycopen/Lutein [Centrum Silver Tablet] 1 tab PO DAILY 02/10/17 [ History] DULoxetine HCL [Cymbalta] 30 mg PO BID 09/25/17 [History] Etodolac [Lodine] 400 mg PO BID 09/25/17 [History] Insulin Glargine [Lantus] 26 unit SQ BID 09/25/17 [History] Atorvastatin [Lipitor] 80 mg PO HS 02/05/18 [History] Apixaban [Eliquis] 5 mg PO BID #60 tab 02/13/18 [Rx] Metoprolol Tartrate [Lopressor] 25 mg PO BID #60 tab 02/13/18 [Rx] Hydrocortisone [Cortef] 20 mg PO QAM 04/07/18 [History] Lisinopril [Zestril] 5 mg PO QAM 04/07/18 [History] Clotrimazole/Betameth Cream [Lotrisone] 1 applic TOPICAL BID #1 applic 05/05/18 [Rx] Loratadine [Claritin] 10 mg PO DAILY #30 tab 05/05/18 [Rx] Potassium Chloride ER [K-Dur 20] 20 meq PO DAILY #30 tab 05/05/18 [Rx] cefTRIAXone [Rocephin] 2,000 mg IVPB Q24HR #14 vial 05/26/18 [Rx] Vancomycin 1,500 mg IVPB Q24HR #14 bag 05/27/18 [Rx] Follow up Appointment(s)/Referral(s): Bran Hardin MD [Family Provider] - 06/11/18 10:30 am [facility], [REFERRING] - (Delivery for antibiotics will be tonight between 6-8. They will call you for a more accurate delivery time.) Bautista Romero MD [Primary Care Provider] - 06/02/18 11:30 am [facility],Nurse [NON-STAFF] - Ag Morton MD [STAFF PHYSICIAN] - 06/09/18 1:00 pm (Dr. Morton will see you at the [place] office.) Ambulatory/Diagnostic Orders: Basic Metabolic Panel [LAB.AMB] Location: None Selected Complete Blood Count w/diff [LAB.AMB] Location: None Selected Vancomycin,Trough [LAB.AMB] Location: None Selected Patient Instructions/Handouts: Pneumonia (DC) Activity/Diet/Wound Care/Special Instructions: PICC line care Up with assist, fall precautions. Elevate legs at rest. Cardiac, diabetic diet. Discharge Disposition: HOME WITH HOME HEALTH SERVICES
--- NOTE | 2018-05-27 13:39 | P.PN ---
Subjective Progress Note Date: 05/27/18 Principal diagnosis: Polymicrobial multi during drug-resistant E. coli pneumonia, MRSA pneumonia, acute COPD exacerbation, severe COPD and chronic hypoxic respirator failure, acute on chronic systolic heart failure, chronic atrial fibrillation, obstructive sleep apnea 05/26/2018, patient seen eval reexamined during the rounds clinically patient is slightly better still short of breath cough congestion is present his sputum is growing MRSA now patient recently has been found to have E. coli pneumonia for which he is currently treated with IV Zosyn as well as vancomycin ID service is following 05/27/2018, patient seen eval examined during the rounds care plan discussed with the primary service as well as the infectious disease services patient is being planned for 2 weeks therapy of IV vancomycin in outpatient setting low patient overall clinically feeling slightly better in terms of breathing cuff congestion shortness breath patient has been advised to use the nebulizer machine as well as the BiPAP machine are regular basis Objective - Vital Signs Vital signs: Vital Signs Temp 98.2 F 05/27/18 07:00 Pulse 71 05/27/18 12:04 Resp 16 05/27/18 12:04 BP 141/80 05/27/18 07:00 Pulse Ox 93 L 05/27/18 07:00 Intake & Output 05/26/18 05/27/18 05/27/18 18:59 06:59 18:59 Intake Total 690 Output Total 825 400 Balance -825 290 Weight 99.6 kg Intake: Intake, IV Titration 250 Amount Vancomycin 1,500 mg In 250 Sodium Chloride 0.9% 250 ml @ 125 mls/hr IVPB Q24H REPLACED BY [facility] Rx#:[id number] Oral 440 Output: Urine 825 400 Other: Voiding Method Urinal Urinal # Voids 3 4 - Exam General appearance: alert, in no apparent distress Head exam: Present: atraumatic, normocephalic, normal inspection Eye exam: Present: normal appearance, PERRL, EOMI. Absent: scleral icterus, conjunctival injection, periorbital swelling ENT exam: Present: normal exam, normal oropharynx, mucous membranes moist, TM's normal bilaterally Neck exam: Present: normal inspection, full ROM. Absent: tenderness, meningismus, lymphadenopathy Respiratory exam: Present: wheezes, rhonchi , mainly on forced expiration, Absent: normal lung sounds bilaterally, respiratory distress, rales, stridor Cardiovascular Exam: Present: regular rate, normal rhythm, normal heart sounds. Absent: systolic murmur, diastolic murmur, rubs, gallop, clicks GI/Abdominal exam: Present: soft, normal bowel sounds. Absent: distended, tenderness, guarding, rebound, rigid Neurological exam: Present: alert, oriented X3, CN II-XII intact Skin exam: Present: warm, dry, intact, normal color. Absent: rash - Labs CBC & Chem 7: 05/26/18 06:11 05/26/18 06:11 Labs: Abnormal Lab Results - Last 24 Hours (Table) 05/26/18 05/27/18 Range/Units 20:52 11:57 POC Glucose (mg/dL) 169 H 235 H (75-99) mg/dL Microbiology - Last 24 Hours (Table) 05/23/18 08:30 Gram Stain - Final Sputum Sputum Culture - Final Radha albicans Methicillin resist S. aureus Radha glabrata 05/22/18 09:10 Blood Culture - Preliminary Blood No Growth after 120 hours 05/22/18 13:02 Blood Culture - Preliminary Blood No Growth after 96 hours Assessment and Plan Assessment: Polymicrobial pneumonia associated with multi drug-resistant E. coli as well as MRSA Gram-negative pneumonia related to E. coli on therapy with IV Zosyn and vancomycin, patient to finish the IV vancomycin outpatient setting via PICC line Sirs-like process due to above Severe degree of sleep disorder breathing and sleep apnea Congestive heart failure Chronic atrial fibrillation History of prior CT and diabetes and chronic anemia Dyslipidemia Plan: Continue broad-spectrum antibiotics and supportive care Continue antibiotics Follow-up on culture results and report Further recommendations pending plan of care as per clinical response of the patient Continue DVT and peptic ulcer disease prophylaxis Continue deep breathing exercise bronchodilators Recommend to hold on IV steroids Further recommendations pending plan of care as per clinical response of the patient Time with Patient: Greater than 30
--- NOTE | 2018-05-27 22:44 | P.PN ---
Subjective Progress Note Date: 05/27/18 Pleasant 57-year-old male with multiple recent hospitalizations for discharge on 05/20/2018 for recent bout of E. coli pneumonia found at the time of his bronchoscopy. The patient had been treated as an outpatient levofloxacin E. coli was resistant and as he had marked improvement he was discharged home on intravenous ceftriaxone. The patient however rapidly became ill with fever cough and malaise and constantly was brought back to the emergency center and admitted for worsening pneumonia. The patient relates that 48 hours ago his legs were then now become quite swollen again. He is short of breath he has cough and sputum production. His fever is improved but was 101.3 earlier. This evening he sitting upright is eating some food and relates that he feels better than at home. He is denying chills or rigors. As the ulceration to his coccyx that is treated with the sacral dressing which is finding soothing. 05/23/2018 the patient is feeling considerably better today. He sitting upright and eating his meal without difficulties. His shortness of breath is improved. His fever has resolved. His mentation has improved. No new acute complaints. 05/26/2018 the patient continues to have improvement of his status. Sputum culture is now available and MRSA has been isolated. With recent bronchoscopy and had evidence of E. coli. Patient is feeling better and is wondering what we 'll go on as far as his discharge plan. He relates will be going to home and would not go to rehab. 05/27/2018 reveals the patient be sitting up doing better today to have his lunch. He is somewhat anxious about being able to go home. His however is concerned given his somewhat waxing and waning status. She correctly brings up he has had multiple hospitalizations. We did relate this time there is evidence of recurrence of MRSA pneumonia, this will be treated as well as a recent E. coli pneumonia and hopefully with the to antibiotic therapy he will have stability in improvement of his status. Objective - Vital Signs Vital signs: Vital Signs Temp 98.2 F 05/27/18 07:00 Pulse 71 05/27/18 12:04 Resp 16 05/27/18 12:04 BP 141/80 05/27/18 07:00 Pulse Ox 93 L 05/27/18 07:00 Intake & Output 05/27/18 05/27/18 05/28/18 06:59 18:59 06:59 Intake Total 810 Output Total 600 Balance 210 Weight 99.6 kg Intake: Intake, IV Titration 250 Amount Vancomycin 1,500 mg In 250 Sodium Chloride 0.9% 250 ml @ 125 mls/hr IVPB Q24H [facility] Rx#:[id number] Oral 560 Output: Urine 600 Other: Voiding Method Urinal Urinal # Voids 4 - Exam Gen: This is a obese 57-year-old male. awake and alert to questions appropriately. He does not appear to be in any respiratory distress. HEENT: Head is atraumatic, normocephalic. Pupils equal, round. Sclerae is anicteric. Oral mucous membranes are very dry. No thrush noted. Patient is edentulous. NECK: Supple. No JVD. No lymphadenopathy. No thyromegaly. LUNGS: Symmetrical bilateral air entry, basilar crackles right greater than left few expiratory wheezes no dullness or egophony HEART: Regular rate and rhythm. No murmur. ABDOMEN: Soft. Bowel sounds are present. No masses. No tenderness. EXTREMITIES: Upper extremities intact, IV right arm without difficulties Lower extremities have significant bilateral lower extremity edema but no ulcerations, improving with the application of AMBIKA hose Skin: the ulceration to the coccyx is improved and is soothed by the pad in place NEUROLOGICAL: Awake alert oriented person place and time exhibits no acute gross focal sensory motor deficits - Labs CBC & Chem 7: 05/26/18 06:11 05/26/18 06:11 Labs: Abnormal Lab Results - Last 24 Hours (Table) 05/27/18 Range/Units 11:57 POC Glucose (mg/dL) 235 H (75-99) mg/dL Microbiology - Last 24 Hours (Table) 05/22/18 13:02 Blood Culture - Preliminary Blood No Growth after 120 hours 05/23/18 08:30 Gram Stain - Final Sputum Sputum Culture - Final Radha albicans Methicillin resist S. aureus Radha glabrata 05/22/18 09:10 Blood Culture - Preliminary Blood No Growth after 120 hours Microbiology 05/22/18 13:02 Blood Blood Culture - Preliminary No Growth after 120 hours 05/23/18 08:30 Sputum Gram Stain - Final 05/23/18 08:30 Sputum Sputum Culture - Final Radha albicans Methicillin resist S. aureus Radha glabrata 05/22/18 09:10 Blood Blood Culture - Preliminary No Growth after 120 hours 05/22/18 09:10 Urine,Voided Urine Culture - Final Assessment and Plan (1) Fever Status: Acute Code(s): R50.9 - FEVER, UNSPECIFIED SNOMED Code(s): 677312061 (2) Failure of outpatient treatment Status: Acute Code(s): Z78.9 - OTHER SPECIFIED HEALTH STATUS SNOMED Code(s) : 925239502 (3) Gram-negative pneumonia Narrative/Plan: 57 year old male who has multiple medical troubles including multiple recent hospitalizations for pneumonia. MRSA was isolated originally, was treated and had some improvement. Had some relapsing pneumonia responded to further course of antibiotic therapy. He then relapsed again and Escherichia coli was found at the time of bronchoscopy that was resistant to fluoroquinolones. He subsequently was placed on ceftriaxone with marked clinical improvement and discharged to home. Within 48 hours if patient became febrile and increasing cough and sputum production and consequently presents back to hospital for admission. With the recurrent pneumonia antibiotic therapy is altered piperacillin tazobactam and vancomycin pending further blood and culture results of sputum. Fortunately the patient is feeling slightly better since admission. The patient is to use his home BiPAP whenever he is sleeping. Including daytime naps. In the past he does not wear it he does develop some CO2 narcosis. I'm requesting to speak with the regarding the cleaning of the unit. Manufactures usually indicate cleaning tubing and mask with warm water and detergent thoroughly rinsing and allowing to dry usually in a hanging position. The water tank should also be cleaned with warm water and detergent. The goal of the detergent is disrupt any biofilm that forms that may then results of infections. 05/23/2018 reveals the patient be considerably improved today. He is less short of breath. His mentation is back to baseline. He is without much discomfort. He's been able to ambulate. He does have lower extremity edema. We'll ask the nursing to apply some AMBIKA hose to his legs with his edema and elevate his legs. Antibiotic therapy is noted as well as Zosyn and vancomycin until we have further culture data. Most recent bronchoscopy showed E. coli that was susceptible to Rocephin that he was receiving at home with had a marked worsening of his status. Is having excellent improvement at this time with antibiotic therapy. Await cultures to further define her course of antibiotics at discharge. 05/26/2018 the patient has further improvement. Lower extremity edema is improved. The most recent cultures reveal evidence of MRSA in his sputum, recent bronchoscopy reveal evidence of E. coli. When improved we'll make arrangements when he is ready for discharge home to complete treatment with vancomycin and likely Rocephin. 05/27/2018 patient has had some further improvement. He really would like to go home. His is voicing some concerns given his multiple hospitalizations. This had more is doing well and 2 different pathogen every treated for his pneumonia. We discussed the bronchoscopy did not reveal evidence of MRSA E coli. But the MRSA has again resulted in pneumonia. This would be treated as well as E. coli. In the outpatient setting after his next couple weeks of antibiotic therapy in hopes that he will be able to continue to improve in the outpatient setting. The patient was adamant that he does not want to go to extended care. However if he recurs again and becomes likely that he just is failing his care at home. The patient does have a BiPAP machine for home with asked for the to clean the tubing the mask in the water chamber with warm detergent water to help break down any biofilm. This should be done weekly basis. Status: Acute Code(s): J15.6 - PNEUMONIA DUE TO OTHER GRAM-NEGATIVE BACTERIA SNOMED Code(s): 018063191
--- NOTE | 2018-05-29 09:33 | CDI ---
Documentation Clarification Form Date: 05/29/2018 9:16:56 AM From: MAVIS Singh; Kaley Wright Sales Exec Phone: If you have a question about this query, please contact Kaley Wright Sales Exec at [phone] between 8am and 5pm. Admit Date: 05/22/2018 11:06:00 AM Patient Name: Benja Ribera Visit Number: [id number] Discharge Date: 05/27/2018 ATTENTION: The Clinical Documentation Specialists (CDI) and [facility] Coding Staff appreciate your assistance in clarifying documentation. Please respond to the clarification below the line at the bottom and electronically sign. The CDI & [facility] Coding staff will review the response and follow-up if needed. Please note: Queries are made part of the Legal Health Record. If you have any questions, please contact the author of this message via ITS. Bautista Lagunas MD In the ED, sepsis with pneumonia is documented. Progress notes state SIRS-like process. History/Risk Factors: Recent admission for pneumonia and sepsis; discharged on 7 day course of Levaquin. Clinical Indicators: Shortness of breath and fever. WBC/Left Shift 13.2 Lactic acid: 2.8 Sputum: Positive for MRSA Vitals signs on admission: temp 100.9, pulse 70, resp 22, BP 95/56. Treatment: Levaquin and Zosyn In your professional opinion, please clarify? Sepsis ruled in Sepsis ruled out Other, please specify Unable to determine Identify the (suspected) organism MTDD
== END 2018-05-27 14:44 | disposition home health service (06) | DRG 177 ==
LOC: EC 07:54 → 4MS4W 11:06
PROVIDERS: ADMIT Family Medicine; ATTEND Family Medicine
PROC: 02HV33Z Insertion of Infusion Device into Superior Vena Cava, Percutaneous Approach (ICD-10-PCS; principal; 2018-05-23 09:30)
DX: J15.212 Pneumonia due to Methicillin resistant Staphylococcus aureus (principal); I50.23 Acute on chronic systolic (congestive) heart failure; E27.40 Unspecified adrenocortical insufficiency; J44.0 Chronic obstructive pulmonary disease with (acute) lower respiratory infection; J44.1 Chronic obstructive pulmonary disease with (acute) exacerbation; J96.11 Chronic respiratory failure with hypoxia; C7A.8 Other malignant neuroendocrine tumors; Z86.19 Personal history of other infectious and parasitic diseases; J15.5 Pneumonia due to Escherichia coli; D50.9 Iron deficiency anemia, unspecified; E03.9 Hypothyroidism, unspecified; E11.42 Type 2 diabetes mellitus with diabetic polyneuropathy; E66.9 Obesity, unspecified; E78.5 Hyperlipidemia, unspecified; E83.42 Hypomagnesemia; E83.59 Other disorders of calcium metabolism; G47.33 Obstructive sleep apnea (adult) (pediatric); Z99.89 Dependence on other enabling machines and devices; I11.0 Hypertensive heart disease with heart failure; I25.10 Atherosclerotic heart disease of native coronary artery without angina pectoris; I25.2 Old myocardial infarction; I48.2 Chronic atrial fibrillation; K21.9 Gastro-esophageal reflux disease without esophagitis; L89.322 Pressure ulcer of left buttock, stage 2; L89.312 Pressure ulcer of right buttock, stage 2; M15.9 Polyosteoarthritis, unspecified; Z16.23 Resistance to quinolones and fluoroquinolones; Z16.24 Resistance to multiple antibiotics; Z68.34 Body mass index [BMI] 34.0-34.9, adult; Z79.01 Long term (current) use of anticoagulants; Z79.4 Long term (current) use of insulin; Z80.1 Family history of malignant neoplasm of trachea, bronchus and lung; Z80.3 Family history of malignant neoplasm of breast; Z82.49 Family history of ischemic heart disease and other diseases of the circulatory system; Z83.3 Family history of diabetes mellitus; Z85.828 Personal history of other malignant neoplasm of skin; Z87.01 Personal history of pneumonia (recurrent); Z87.891 Personal history of nicotine dependence; Z90.49 Acquired absence of other specified parts of digestive tract; Z95.1 Presence of aortocoronary bypass graft; Z96.641 Presence of right artificial hip joint; Z79.890 Hormone replacement therapy; Z79.891 Long term (current) use of opiate analgesic; Z79.899 Other long term (current) drug therapy; Z88.5 Allergy status to narcotic agent; Z88.8 Allergy status to other drugs, medicaments and biological substances
CPT/HCPCS: 36415; 36569; 71046; 76937; 77001; 80053; 80202; 81001; 82550; 82553; 83036; 83605; 83735; 83880; 84145; 84484; 85025; 85610; 85730; 87040; 87070; 87077; 87086; 87186; 87205; 93005; 94640; 96360; 96361; 96365; 99285

== ENCOUNTER 2018-06-07 20:48 | Inpatient (IN) | payer MEDICARE ==
[2018-06-07] MEDS ORDERED: IPRATROPIUM-ALBUTEROL 3 ML NEB INHALATION STA (21:06)
[2018-06-07] MEDS ORDERED: methylPREDNISolone SOD SUCCI 125 MG/2 ML VIAL IV STA (21:06)
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
[2018-06-07 21:25] LABS: Anisocytosis Moderate; Basophils # (A) 0.1 k/uL (0-0.2); Basophils % (A) 1 %; Eosinophils # (A) 0.1 k/uL (0-0.7); Eosinophils % (A) 2 %; HCT 30.3 % (39.0-53.0); HGB 8.3 gm/dL (13.0-17.5); Hypochromasia Marked; Lymphocytes # (A) 0.5 k/uL (1.0-4.8); Lymphocytes % (A) 7 %; MCH 20.5 pg (25.0-35.0); MCHC 27.4 g/dL (31.0-37.0); MCV 74.8 fL (80.0-100.0); Mean Platelet Volume 6.5; Microcytosis Moderate; Monocytes # (A) 0.5 k/uL (0-1.0); Monocytes % (A) 7 %; Neutrophils % (A) 81 %; Platelet Count 238 k/uL (150-450); Poikilocytosis Slight; RBC 4.06 m/uL (4.30-5.90); RDW 20.9 % (11.5-15.5); WBC 7.3 k/uL (3.8-10.6)
[2018-06-07 21:34] LABS: INR 1.3 (<1.2); Prothrombin Time 12.2 sec (9.0-12.0)
[2018-06-07 21:41] LABS: ALT 29 U/L (21-72); AST 29 U/L (17-59); Albumin 2.9 g/dL (3.5-5.0); Alkaline Phosphatase 120 U/L (38-126); Anion Gap 10 mmol/L; Blood Urea Nitrogen 23 mg/dL (9-20); Calcium 8.2 mg/dL (8.4-10.2); Carbon Dioxide 32 mmol/L (22-30); Chloride 98 mmol/L (98-107); Glucose 286 mg/dL (74-99); Magnesium 1.1 mg/dL (1.6-2.3); Potassium 4.2 mmol/L (3.5-5.1); Sodium 140 mmol/L (137-145); Total Bilirubin 0.6 mg/dL (0.2-1.3); Total Protein 6.2 g/dL (6.3-8.2)
[2018-06-07] MEDS ORDERED: SODIUM CHLORIDE 0.9% 2,000 ML IV ONE (21:41)
[2018-06-07 21:52] LABS: Creatine Kinase MB 3.2 ng/mL (0.0-2.4); Troponin I 0.013 ng/mL (0.000-0.034)
--- NOTE | 2018-06-07 22:00 | XR ---
EXAMINATION TYPE: XR chest 2V DATE OF EXAM: 06/07/2018 COMPARISON: Chest radiograph 05/23/2018 HISTORY: Dyspnea TECHNIQUE: Frontal and lateral views of the chest are obtained. FINDINGS: The heart is again enlarged. Interval development of small bilateral pleural effusions. Multifocal bi lateral predominantly right sided airspace disease is evident. This appears worse in the interval. St ernotomy wires are again seen. Cervical fusion hardware is evident. Osseous structures are otherwise unchanged. Left-sided PICC is evident with unchanged position. IMPRESSION: 1. Worsening bilateral airspace disease. Infectious etiology is favored. Pulmonary edema is also a co nsideration. 2. Interval development of bilateral pleural effusions. 3. Stable cardiomegaly. 4. Stable left sided PICC.
[2018-06-07] MEDS ORDERED: ACETAMINOPHEN TAB 500 MG TAB PO STA (22:37)
[2018-06-08] MEDS ORDERED: FUROSEMIDE 10 MG/ML 4 ML VIAL IV STA (00:03)
[2018-06-08] MEDS ORDERED: VANCOMYCIN IV PER PHARMACY 1 EACH MISC MISCELLANE PRN (00:04)
[2018-06-08] MEDS ORDERED: LEVOFLOXACIN 750MG-D5W PMX 750 MG in DEXTROSE/WATER 1 150ML.BAG IVPB STA (00:05)
[2018-06-08] MEDS ORDERED: NITROGLYCERIN SL TABS 0.4 MG TAB SUBLINGUAL PRN (00:05)
[2018-06-08] MEDS: SODIUM CHLORIDE 0.9% 1,000 ML IV SCH (02:11)
[2018-06-08] MEDS: HYDROcodone/APAP 10-325MG 1 EACH TAB PO PRN ×4 (02:17→20:30)
[2018-06-08 02:27] LABS: Glucose,Whole Blood 321 mg/dL (75-99)
[2018-06-08] MEDS: VANCOMYCIN 1,500 MG in SODIUM CHLORIDE 0.9% 250 ML IVPB SCH ×2 (02:52→14:10)
[2018-06-08] MEDS: IPRATROPIUM-ALBUTEROL 3 ML NEB INHALATION SCH ×5 (03:55→18:44)
[2018-06-08 06:22] LABS: Glucose,Whole Blood 428 mg/dL (75-99)
[2018-06-08 07:13] LABS: Anisocytosis Moderate; Basophils % (A) 0 %; Eosinophils % (A) 1 %; HCT 28.3 % (39.0-53.0); HGB 7.9 gm/dL (13.0-17.5); Hypochromasia Marked; Lymphocytes # (A) 0.3 k/uL (1.0-4.8); Lymphocytes % (A) 14 %; MCH 20.4 pg (25.0-35.0); MCHC 27.8 g/dL (31.0-37.0); MCV 73.3 fL (80.0-100.0); Mean Platelet Volume 7.5; Microcytosis Marked; Monocytes # (A) 0.1 k/uL (0-1.0); Monocytes % (A) 3 %; Neutrophils # (A) 1.5 k/uL (1.3-7.7); Neutrophils % (A) 80 %; Platelet Count 201 k/uL (150-450); Poikilocytosis Slight; RBC 3.86 m/uL (4.30-5.90); WBC 1.9 k/uL (3.8-10.6)
[2018-06-08 07:26] LABS: Anion Gap 9 mmol/L; Blood Urea Nitrogen 25 mg/dL (9-20); Calcium 7.7 mg/dL (8.4-10.2); Carbon Dioxide 32 mmol/L (22-30); Chloride 99 mmol/L (98-107); Glucose 392 mg/dL (74-99); Potassium 4.3 mmol/L (3.5-5.1); Sodium 140 mmol/L (137-145)
[2018-06-08] MEDS: INSULIN ASPART 100 UNIT/ML 1 ML 10 ML VIAL SQ SCH ×6 (07:58→21:20)
[2018-06-08] MEDS: CLOTRIMAZOLE/BETAMETH 1-0.05% CREAM 45 GM TUBE TOPICAL SCH ×2 (08:45→20:28)
[2018-06-08] MEDS: GABAPENTIN 400 MG CAP PO SCH ×4 (08:49→20:32)
[2018-06-08] MEDS: POTASSIUM CHLORIDE ER 20 MEQ TAB.ER PO SCH (08:49)
[2018-06-08] MEDS: PANTOPRAZOLE 40 MG TABLET PO SCH ×2 (08:49→20:29)
[2018-06-08] MEDS: HYDROCORTISONE 20 MG TAB PO SCH (08:50)
[2018-06-08] MEDS: METOPROLOL TARTRATE 25 MG TAB PO SCH ×2 (08:50→20:29)
[2018-06-08] MEDS: VIT A,C & E-LUTEIN-MINERALS 1 EACH TAB PO SCH (08:50)
[2018-06-08] MEDS: ETODOLAC 400 MG TAB PO SCH ×2 (08:50→20:35)
[2018-06-08] MEDS: APIXABAN 5 MG TAB PO SCH ×2 (08:50→20:29)
[2018-06-08] MEDS: LISINOPRIL 5 MG TAB PO SCH (08:50)
[2018-06-08] MEDS: FUROSEMIDE 20 MG TAB PO SCH ×2 (08:50→20:29)
[2018-06-08] MEDS: INSULIN DETEMIR 100 UNIT/ML 10 ML VIAL SQ SCH ×2 (08:50→21:20)
[2018-06-08] MEDS: DULoxetine HCL 30 MG CAPSULE.DR PO SCH ×2 (08:50→20:29)
[2018-06-08] MEDS: LORATADINE 10 MG TAB PO SCH (08:50)
[2018-06-08] MEDS ORDERED: INSULIN DETEMIR 100 UNIT/ML 10 ML VIAL SQ SCH (09:00)
[2018-06-08] MEDS ORDERED: cefTRIAXone 2,000 MG VIAL IVPB SCH (09:00)
[2018-06-08] MEDS ORDERED: Magnesium Replacement Protocol 1 EACH MISC MISCELLANE PRN (09:14)
[2018-06-08] MEDS: MAGNESIUM SULFATE-D5W PMX 1 GM in DEXTROSE/WATER 1 100ML.BAG IVPB SCH ×3 (10:55→13:08)
[2018-06-08 11:12] LABS: Glucose,Whole Blood 423 mg/dL (75-99)
[2018-06-08 16:34] LABS: Glucose,Whole Blood 508 mg/dL (75-99)
[2018-06-08] MEDS: CEFEPIME 2 GM in SODIUM CHLORIDE 0.9% 50 ML IVPB SCH ×2 (17:31→23:11)
[2018-06-08] MEDS: amLODIPine 5 MG TAB PO SCH (20:28)
[2018-06-08] MEDS: ATORVASTATIN 80 MG TAB PO SCH (20:28)
[2018-06-08 20:29] LABS: Glucose,Whole Blood 456 mg/dL (75-99)
[2018-06-08] MEDS: LEVOTHYROXINE 50 MCG TAB PO SCH (20:29)
[2018-06-08] MEDS: MONTELUKAST 10 MG TAB PO SCH (20:29)
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
[2018-06-09] MEDS: IPRATROPIUM-ALBUTEROL 3 ML NEB INHALATION SCH ×6 (00:26→19:40)
[2018-06-09] MEDS: SODIUM CHLORIDE 0.9% 1,000 ML IV SCH ×2 (02:28→22:51)
[2018-06-09] MEDS: VANCOMYCIN 1,500 MG in SODIUM CHLORIDE 0.9% 250 ML IVPB SCH ×2 (02:28→14:36)
[2018-06-09] MEDS: INSULIN ASPART 100 UNIT/ML 1 ML 10 ML VIAL SQ SCH ×9 (05:40→21:40)
[2018-06-09 05:49] LABS: Glucose,Whole Blood 222 mg/dL (75-99)
[2018-06-09 06:50] LABS: Anisocytosis Moderate; HCT 26.8 % (39.0-53.0); HGB 7.5 gm/dL (13.0-17.5); Hypochromasia Marked; MCH 20.4 pg (25.0-35.0); MCHC 27.9 g/dL (31.0-37.0); Mean Platelet Volume 6.6; Microcytosis Marked; Platelet Count 204 k/uL (150-450); Poikilocytosis Slight; RBC 3.67 m/uL (4.30-5.90); RDW 20.8 % (11.5-15.5); WBC 3.7 k/uL (3.8-10.6)
[2018-06-09 06:59] LABS: Anion Gap 9 mmol/L; Blood Urea Nitrogen 27 mg/dL (9-20); Calcium 8.3 mg/dL (8.4-10.2); Carbon Dioxide 32 mmol/L (22-30); Chloride 100 mmol/L (98-107); Glucose 186 mg/dL (74-99); Magnesium 1.7 mg/dL (1.6-2.3); Potassium 3.5 mmol/L (3.5-5.1); Sodium 141 mmol/L (137-145)
[2018-06-09 08:27] LABS: Monocytes # (M) 0.41 k/uL (0-1.0); Neutrophils # (M) 2.59 k/uL (1.3-7.7); Neutrophils % (M) 70 %; Nucleated Red Blood Cells 0 /100 WBC (0-0); Total Cells Counted 100
[2018-06-09 08:28] LABS: Ovalocytes Present; Polychromasia Present; Target Cells Present
[2018-06-09] MEDS: CEFEPIME 2 GM in SODIUM CHLORIDE 0.9% 50 ML IVPB SCH ×3 (08:38→22:54)
[2018-06-09] MEDS: CLOTRIMAZOLE/BETAMETH 1-0.05% CREAM 45 GM TUBE TOPICAL SCH ×2 (08:40→21:42)
[2018-06-09] MEDS: GABAPENTIN 400 MG CAP PO SCH ×4 (08:41→21:40)
[2018-06-09] MEDS: METOPROLOL TARTRATE 25 MG TAB PO SCH ×2 (08:41→21:41)
[2018-06-09] MEDS: LISINOPRIL 5 MG TAB PO SCH (08:41)
[2018-06-09] MEDS: INSULIN DETEMIR 100 UNIT/ML 10 ML VIAL SQ SCH ×2 (08:42→21:38)
[2018-06-09] MEDS: LORATADINE 10 MG TAB PO SCH (08:42)
[2018-06-09] MEDS: HYDROCORTISONE 20 MG TAB PO SCH (08:42)
[2018-06-09] MEDS: VIT A,C & E-LUTEIN-MINERALS 1 EACH TAB PO SCH (08:42)
[2018-06-09] MEDS: APIXABAN 5 MG TAB PO SCH ×2 (08:42→21:41)
[2018-06-09] MEDS: DULoxetine HCL 30 MG CAPSULE.DR PO SCH ×2 (08:42→21:40)
[2018-06-09] MEDS: POTASSIUM CHLORIDE ER 20 MEQ TAB.ER PO SCH ×3 (08:42→18:39)
[2018-06-09] MEDS: HYDROcodone/APAP 10-325MG 1 EACH TAB PO PRN ×4 (08:42→21:43)
[2018-06-09] MEDS: ETODOLAC 400 MG TAB PO SCH ×2 (08:42→21:42)
[2018-06-09] MEDS: PANTOPRAZOLE 40 MG TABLET PO SCH ×2 (08:42→21:41)
[2018-06-09] MEDS: FUROSEMIDE 20 MG TAB PO SCH ×2 (08:43→21:40)
[2018-06-09 11:54] LABS: Hemoglobin A1C 6.9 % (4.0-6.0)
[2018-06-09 11:59] LABS: Glucose,Whole Blood 188 mg/dL (75-99)
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
--- NOTE | 2018-06-09 12:47 | P.PN ---
Subjective Progress Note Date: 06/09/18 Principal diagnosis: Bilateral pneumonia, bilateral pleural effusion, acute exacerbation of acute on chronic systolic heart failure, chronic atrial fibrillation, recent gram- negative and MRSA related pneumonia, acute on chronic hypoxic respiratory failure, severe degree of obstructive sleep apnea on BiPAP, 06/09/2018, patient seen eval examined during the rounds clinically patient is slightly better more awake and alert fever Petrin Has improved he did not spike a fever patient is on broad-spectrum antibiotics with IV vancomycin and cephapirin tolerating relatively better, is improved labs reviewed medications reviewed computed tomography scan of the chest is pending 57-year-old male who was seen evaluated examined on 6 floor this patient has been admitted into the hospital with a spiking fever and confusion and sleepiness related to that he does have chronic cough and shortness of breath however not much change from the baseline patient does have some component of dyspnea on exertion he is on supplemental oxygen 2 L, patient has been recently hospitalized for MRSA pneumonia and gram-negative pneumonia has been treated with long-term antibiotics ID service has been following, patient one day prior to admitting the hospital developed a spiking fever of 103 which was somewhat paroxysmal fever lasted causes some confusion as well however as per patient cough and shortness breath was not much different from baseline and has not been significantly changed patient was seen eval reexamined the emergency by subsequently admitted to the hospital where he was seen evaluated examined him on specific questioning denies any seizure-like activity loss of consciousness) , denies any chest pain or radiation of pain denies any fever or night sweats or chills except recent episode does have chronic shortness of breath chronic cough associated with thick sputum however not much change from baseline denies any bowel or bladder related problems does have chronic edema of the lower extremity which is not much change from baseline, patient does have sleep disorder breathing and sleep apnea has been on CPAP machine at home in addition patient also has a PICC line for which she is getting antibiotics on outpatient setting Objective - Vital Signs Vital signs: Vital Signs Temp 97.3 F L 06/09/18 11:19 Pulse 82 06/09/18 12:01 Resp 16 06/09/18 11:19 BP 136/69 06/09/18 11:19 Pulse Ox 97 06/09/18 11:19 Intake & Output 06/08/18 06/09/18 06/09/18 18:59 06:59 18:59 Intake Total 1100 780 170 Output Total 650 700 650 Balance 450 80 -480 Weight 94.8 kg Intake: Intake, IV Titration 380 50 Amount Cefepime 2 gm In Sodium 50 Chloride 0.9% 50 ml @ 100 mls/hr IVPB Q8HR [facility] Rx# :[id number] Magnesium Sulfate-D5w Pmx 300 1 gm In Dextrose/Water 1 100ml.bag @ 100 mls/hr IVPB Q1H [facility] Rx#: [id number] Sodium Chloride 0.9% 1, 80 000 ml @ 20 mls/hr IV . Q24H [facility] Rx#:[id number] Oral 720 780 120 Output: Urine 650 700 650 Other: Voiding Method Urinal # Voids 2 - Exam Constitutional General appearance: average body habitus, disheveled, no acute distress, obese - EENT Eyes: EOMI, PERRLA, normal appearance ENT: normal oropharynx Ears: bilateral: normal - Neck Neck: normal ROM Carotids: bilateral: upstroke normal, bruit absent Thyroid: bilateral: normal size - Respiratory Respiratory: bilateral: diminished (At the bases), wheezing (Bilateral on forced expiration), negative: rales, rhonchi - Cardiovascular Rhythm: regular Heart sounds: normal: S1, S2 - Gastrointestinal General gastrointestinal: normal bowel sounds, soft - Integumentary Integumentary: normal, normal turgor - Neurologic Neurologic: CNII-XII intact - Musculoskeletal Musculoskeletal: gait normal, generalized weakness, strength equal bilaterally - Psychiatric Psychiatric: A&O x's 3, appropriate affect, intact judgment & insight - Labs CBC & Chem 7: 06/09/18 06:15 06/09/18 06:15 Labs: Abnormal Lab Results - Last 24 Hours (Table) 06/08/18 06/08/18 06/08/18 Range/Units 07:26 16:32 20:28 WBC (3.8-10.6) k/uL RBC (4.30-5.90) m/uL Hgb (13.0-17.5) gm/dL Hct (39.0-53.0) % MCV (80.0-100.0) fL MCH (25.0-35.0) pg MCHC (31.0-37.0) g/dL RDW (11.5-15.5) % Lymphocytes # (Manual) (1.0-4.8) k/uL Carbon Dioxide (22-30) mmol/L BUN (9-20) mg/dL Glucose (74-99) mg/dL POC Glucose (mg/dL) 508 H 456 H (75-99) mg/dL Hemoglobin A1c 6.9 H (4.0-6.0) % Calcium (8.4-10.2) mg/dL 06/09/18 06/09/18 06/09/18 Range/Units 05:38 06:15 06:15 WBC 3.7 L (3.8-10.6) k/uL RBC 3.67 L (4.30-5.90) m/uL Hgb 7.5 L (13.0-17.5) gm/dL Hct 26.8 L (39.0-53.0) % MCV 73.0 L (80.0-100.0) fL MCH 20.4 L (25.0-35.0) pg MCHC 27.9 L (31.0-37.0) g/dL RDW 20.8 H (11.5-15.5) % Lymphocytes # (Manual) 0.70 L (1.0-4.8) k/uL Carbon Dioxide 32 H (22-30) mmol/L BUN 27 H (9-20) mg/dL Glucose 186 H (74-99) mg/dL POC Glucose (mg/dL) 222 H (75-99) mg/dL Hemoglobin A1c (4.0-6.0) % Calcium 8.3 L (8.4-10.2) mg/dL 06/09/18 Range/Units 11:40 WBC (3.8-10.6) k/uL RBC (4.30-5.90) m/uL Hgb (13.0-17.5) gm/dL Hct (39.0-53.0) % MCV (80.0-100.0) fL MCH (25.0-35.0) pg MCHC (31.0-37.0) g/dL RDW (11.5-15.5) % Lymphocytes # (Manual) (1.0-4.8) k/uL Carbon Dioxide (22-30) mmol/L BUN (9-20) mg/dL Glucose (74-99) mg/dL POC Glucose (mg/dL) 188 H (75-99) mg/dL Hemoglobin A1c (4.0-6.0) % Calcium (8.4-10.2) mg/dL Microbiology - Last 24 Hours (Table) 06/07/18 21:13 Blood Culture - Preliminary Blood No Growth after 24 hours Assessment and Plan Assessment: Altered mental status related to Sirs-like process related to bilateral pneumonia MRSA pneumonia/gram-negative pneumonia Acute on chronic hypoxic respiratory failure Severe degree of sleep disorder breathing and sleep apnea Small bilateral pleural effusion History of recent pneumonia Chronic systolic heart failure Chronic atrial fibrillation Plan: Broad-spectrum antibiotics Breathing treatments Gentle diuresis Once computed tomography scan of the chest without IV dye done will review it with further recommendations pending Further recommendations pending plan of care as per clinical response of the patient DVT and peptic ulcer disease prophylaxis Time with Patient: Greater than 30
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
[2018-06-09] MEDS ORDERED: VANCOMYCIN TROUGH DUE 1 EACH MISC MISCELLANE ONE (13:00)
--- NOTE | 2018-06-09 14:08 | CT ---
EXAMINATION TYPE: CT chest wo con DATE OF EXAM: 06/09/2018 COMPARISON: 06/07/2018, 09/25/2017 HISTORY: Bilateral pneumonia and pleural effusion. CT DLP: 505.5 mGycm. Automated Exposure Control for Dose Reduction was Utilized. TECHNIQUE: CT scan of the thorax is performed without IV contrast. FINDINGS: LUNGS: There are bilateral areas of consolidation and pleural effusion which additional patchy infilt rate and reticular nodular changes in the right perihilum. Bilateral areas of consolidation pleural e ffusion are noted. MEDIASTINUM: Lack of IV contrast is noted to limit evaluation for mediastinal and especially hilar ad enopathy. There is a 1.1 cm lymph node measured in short axis within the left AP window.. Atheroscler otic change aorta. Coronary artery calcification seen. Calcification of the pleura on the left noted. OTHER: A PICC line is noted. Hypertrophic and degenerative change of the spine. Sternotomy wires note d. Surgical change overlying the cervical spine noted. Rib deformities suggest remote trauma. Postcho lecystectomy changes noted. Bilateral shoulder arthropathy. IMPRESSION: 1. Bilateral pleural effusions greater on the left with bilateral consolidation. There are patchy int erstitial infiltrates in the right perihilar region which have a somewhat reticular nodular pattern. Nodularity not excluded. Differential diagnosis would include infectious etiology including opportuni stic or atypical infection. Underlying venous congestion also a consideration. Follow to resolution r ecommended particularly given the nodularity. Infectious etiology favored. Findings appear to be prog ressed from the CT scan of 09/25/2017. 2. Borderline pathologic mediastinal adenopathy.
--- NOTE | 2018-06-09 15:19 | P.PN ---
Subjective Progress Note Date: 06/09/18 Patient seen and examined at the bedside. Patient is awake and alert. Sitting at the bedside. He denies shortness of breath. Denies chest pain or pressure. Appetite is good. Denies nausea or vomiting. Infectious disease is following. He is on Vanco and Cefepime. Pulmonary is following as well. He is scheduled for CT scan today. Spoke to patient regarding transfer to [facility] secondary to patient being unable to have testing completed that Dr. Mcgrath ordered for his liver/pancreas due to numerous hospitalizations. Patient declining transfer at this time. states she is going to get in touch with Keira, who works with Dr. Mcgrath to see what options are available for getting testing completed and will let provider know. Objective - Vital Signs Vital signs: Vital Signs Temp 97.3 F L 06/09/18 11:19 Pulse 82 06/09/18 12:01 Resp 16 06/09/18 11:19 BP 136/69 06/09/18 11:19 Pulse Ox 97 06/09/18 11:19 Intake & Output 06/08/18 06/09/18 06/09/18 18:59 06:59 18:59 Intake Total 1100 780 410 Output Total 650 700 650 Balance 450 80 -240 Weight 94.8 kg Intake: Intake, IV Titration 380 50 Amount Cefepime 2 gm In Sodium 50 Chloride 0.9% 50 ml @ 100 mls/hr IVPB Q8HR [facility] Rx# :[id number] Magnesium Sulfate-D5w Pmx 300 1 gm In Dextrose/Water 1 100ml.bag @ 100 mls/hr IVPB Q1H [facility] Rx#: [id number] Sodium Chloride 0.9% 1, 80 000 ml @ 20 mls/hr IV . Q24H [facility] Rx#:[id number] Oral 720 780 360 Output: Urine 650 700 650 Other: Voiding Method Urinal # Voids 2 - Exam GENERAL: This is a 57-year-old male in no apparent distress at the time of examination. Pleasant and cooperative. HEENT: Head is atraumatic, normocephalic. Pupils are equal, round, and reactive to light. Sclerae anicteric. Conjunctivae are clear. Mucus membranes of the mouth are moist. Neck is supple. RESPIRATORY: Diminished with rales to bilateral bases. No wheezes or rhonchi. No use of accessory muscles. Patient maintaining oxygen saturation greater than 92%. No chest wall tenderness is noted on palpation or with deep breathing. CARDIOVASCULAR: Regular rate and rhythm. S1 and S2 noted. No JVD noted. No S3 or S4 noted. GASTROINTESTINAL: No distention noted. Abdomen soft and round. Normal active bowel sounds auscultated x 4 quadrants. No pain or tenderness noted upon palpation. INTEGUMENTARY: No cyanosis. No jaundice. No rashes noted. No cellulitis noted. EXTREMITIES: 2+ peripheral pulses. 2+ bilateral lower extremity peripheral edema. No calf tenderness noted. NEUROLOGIC: Cranial nerves II-XII intact. PSYCHIATRIC: Awake, alert, and oriented X 3. Appropriate affect. Intact judgement and insight. - Labs CBC & Chem 7: 06/09/18 06:15 06/09/18 06:15 Labs: Abnormal Lab Results - Last 24 Hours (Table) 06/08/18 06/08/18 06/08/18 Range/Units 07:26 16:32 20:28 WBC (3.8-10.6) k/uL RBC (4.30-5.90) m/uL Hgb (13.0-17.5) gm/dL Hct (39.0-53.0) % MCV (80.0-100.0) fL MCH (25.0-35.0) pg MCHC (31.0-37.0) g/dL RDW (11.5-15.5) % Lymphocytes # (Manual) (1.0-4.8) k/uL Carbon Dioxide (22-30) mmol/L BUN (9-20) mg/dL Glucose (74-99) mg/dL POC Glucose (mg/dL) 508 H 456 H (75-99) mg/dL Hemoglobin A1c 6.9 H (4.0-6.0) % Calcium (8.4-10.2) mg/dL 06/09/18 06/09/18 06/09/18 Range/Units 05:38 06:15 06:15 WBC 3.7 L (3.8-10.6) k/uL RBC 3.67 L (4.30-5.90) m/uL Hgb 7.5 L (13.0-17.5) gm/dL Hct 26.8 L (39.0-53.0) % MCV 73.0 L (80.0-100.0) fL MCH 20.4 L (25.0-35.0) pg MCHC 27.9 L (31.0-37.0) g/dL RDW 20.8 H (11.5-15.5) % Lymphocytes # (Manual) 0.70 L (1.0-4.8) k/uL Carbon Dioxide 32 H (22-30) mmol/L BUN 27 H (9-20) mg/dL Glucose 186 H (74-99) mg/dL POC Glucose (mg/dL) 222 H (75-99) mg/dL Hemoglobin A1c (4.0-6.0) % Calcium 8.3 L (8.4-10.2) mg/dL 06/09/18 Range/Units 11:40 WBC (3.8-10.6) k/uL RBC (4.30-5.90) m/uL Hgb (13.0-17.5) gm/dL Hct (39.0-53.0) % MCV (80.0-100.0) fL MCH (25.0-35.0) pg MCHC (31.0-37.0) g/dL RDW (11.5-15.5) % Lymphocytes # (Manual) (1.0-4.8) k/uL Carbon Dioxide (22-30) mmol/L BUN (9-20) mg/dL Glucose (74-99) mg/dL POC Glucose (mg/dL) 188 H (75-99) mg/dL Hemoglobin A1c (4.0-6.0) % Calcium (8.4-10.2) mg/dL Microbiology - Last 24 Hours (Table) 06/07/18 21:13 Blood Culture - Preliminary Blood No Growth after 24 hours Assessment and Plan Plan: ASSESSMENT: Bilateral pneumonia Bilateral pleural effusions Acute on chronic systolic congestive heart failure, EF 35-40% Recent hospitalization for pneumonia, 05/22/2018-05/27/2018, sputum positive for MRSA, discharged home on vancomycin and Rocephin Recent hospitalization for right infrahilar pneumonia, 05/12/18-05/20/18, sputum culture positive for E. coli, s/p bronch with BAL, culture positive for jumana , discharged home on 14 day course of Rocephin Recent hospitalization for right lower lobe pneumonia 04/29/2018-05/05/2018, discharged home on 7 day course of Levaquin Recent hospitalization for sepsis and pneumonia, discharged 04/16/2018 on 10 day regimen of Vancomycin Paroxysmal atrial fibrillation, maintained on long-term anticoagulation with Eliquis Coronary artery disease with previous coronary artery bypass grafting and previous stent placement Diabetes mellitus type II Hyperglycemia Multiple previous hospital admissions for pneumonia and sepsis Obstructive sleep apnea, Patient reports compliance with CPAP Microcytic hypochromic anemia, etiology unclear, patient was to have colonoscopy 03/2018 but unable to have procedure due to fevers and weakness. 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 Mcgrath, patient declined surgical intervention History of transaminitis, etiology unclear, may be secondary to pancreatic tail neuroendocrine tumor and/or several areas of hypodensity in subcapsular region of both liver lobes, patient follows outpatient with Dr. Mcgrath. Chronic adrenal insufficiency, maintained on Cortef Previous cellulitis with MRSA History of MRSA pneumonia Hyperlipidemia Osteoarthritis Hypothyroidism Obesity: BMI 34.8 Stage 2 pressure ulcer of buttocks, present on admission PLAN: Infectious disease on consult. Appreciate recommendations and input Antibiotics per ID: Currently on vancomycin and cefepime Pulmonary on consult. Appreciate recommendations and input Patient scheduled for computed tomography scan of the chest. Await results Home meds as appropriate Monitor labs GI prophylaxis: Protonix 20 mg by mouth twice a day DVT prophylaxis: Eliquis Monitor vital signs and address as appropriate Discharge planning: Patient to return home when stable Patients to discuss needed testing with Keira, who works with Dr. Mcgrath, and will report back to providers Further recommendations pending patient's course Nurse practitioner note has been reviewed by physician. Signing provider agrees with the documented findings, assessment, and plan of care.
[2018-06-09 16:37] LABS: Glucose,Whole Blood 199 mg/dL (75-99)
[2018-06-09] MEDS ORDERED: Potassium Replacement Protocol 1 EACH MISC MISCELLANE PRN (16:46)
[2018-06-09] MEDS ORDERED: Magnesium Replacement Protocol 1 EACH MISC MISCELLANE PRN (16:49)
[2018-06-09] MEDS: MAGNESIUM SULFATE-D5W PMX 1 GM in DEXTROSE/WATER 1 100ML.BAG IVPB SCH ×2 (17:31→18:39)
[2018-06-09 20:36] LABS: Glucose,Whole Blood 297 mg/dL (75-99)
[2018-06-09] MEDS: amLODIPine 5 MG TAB PO SCH (21:40)
[2018-06-09] MEDS: MONTELUKAST 10 MG TAB PO SCH (21:40)
[2018-06-09] MEDS: LEVOTHYROXINE 50 MCG TAB PO SCH (21:41)
[2018-06-09] MEDS: ATORVASTATIN 80 MG TAB PO SCH (21:42)
--- NOTE | 2018-06-09 21:48 | P.CON ---
Consult Note - . Consult date: 06/09/18 Assessment/Plan:: Pleasant 57-year-old male with multiple recent hospitalizations for discharge on 05/20/2018 for recent bout of E. coli pneumonia found at the time of his bronchoscopy. The patient had been treated as an outpatient levofloxacin E. coli was resistant and as he had marked improvement he was discharged home on intravenous ceftriaxone. The patient however rapidly became ill with fever cough and malaise and constantly was brought back to the emergency center and admitted for worsening pneumonia. Patient gradually improved and was discharged home on 05/27 on Rocephin and vancomycin for 14 days. Patient states he has been receiving his antibiotics as scheduled. He states he has been checking his temperature every evening at about 11:30 PM his been running 99.2 and he has been taking either Tylenol or Motrin but on Saturday evening it was 100 and he took Motrin and following that his temperature went up to 101.2 and he decided to come into [facility] for evaluation. Chest x-ray showed worsening bilateral airspace disease and infectious etiology is favored although pulmonary edema is a consideration. Interval development of bilateral pleural effusions. His temperature maximum 101.7, white count 7.3 with repeat 1.9. Troponins negative on 3 draws. Lactic acid initially 2.3 and repeat 1.9. Patient did receive 2 L of IV fluid and magnesium was replaced. He was started on cefepime and vancomycin by ID. At the time of this evaluation, patient is denying having any cough, sputum production, chest pain or shortness of breath. He denies any abdominal discomfort, loss of appetite, nausea, vomiting or diarrhea. He denies any dysuria. He has a PICC line in his left arm which he denies any pain or tenderness and states it has been functioning fine at home. Please see the consult note as dictated by nurse practitioner Mrs. Mari Guerrero.
[2018-06-09] MEDS: IPRATROPIUM-ALBUTEROL 3 ML NEB INHALATION PRN (23:51)
[2018-06-10 06:02] LABS: Anisocytosis Moderate; HCT 26.9 % (39.0-53.0); HGB 7.6 gm/dL (13.0-17.5); Hypochromasia Marked; MCH 20.2 pg (25.0-35.0); MCHC 28.2 g/dL (31.0-37.0); MCV 71.8 fL (80.0-100.0); Mean Platelet Volume 8.6; Microcytosis Marked; Platelet Count 219 k/uL (150-450); Poikilocytosis Moderate; RBC 3.75 m/uL (4.30-5.90); RDW 20.8 % (11.5-15.5); WBC 3.4 k/uL (3.8-10.6)
[2018-06-10 06:16] LABS: Glucose,Whole Blood 130 mg/dL (75-99)
[2018-06-10 06:16] LABS: Anion Gap 7 mmol/L; Blood Urea Nitrogen 25 mg/dL (9-20); Calcium 8.2 mg/dL (8.4-10.2); Carbon Dioxide 35 mmol/L (22-30); Chloride 100 mmol/L (98-107); Glucose 110 mg/dL (74-99); Magnesium 1.8 mg/dL (1.6-2.3); Potassium 3.4 mmol/L (3.5-5.1); Sodium 142 mmol/L (137-145)
[2018-06-10] MEDS: INSULIN ASPART 100 UNIT/ML 1 ML 10 ML VIAL SQ SCH ×8 (06:19→21:16)
[2018-06-10] MEDS: HYDROcodone/APAP 10-325MG 1 EACH TAB PO PRN ×4 (06:24→19:03)
[2018-06-10] MEDS: VANCOMYCIN 1,500 MG in SODIUM CHLORIDE 0.9% 250 ML IVPB SCH ×2 (06:24→21:17)
[2018-06-10 08:08] LABS: Lymphocytes # (M) 0.61 k/uL (1.0-4.8); Monocytes # (M) 0.41 k/uL (0-1.0); Neutrophils # (M) 2.38 k/uL (1.3-7.7); Neutrophils % (M) 70 %; Nucleated Red Blood Cells 0 /100 WBC (0-0); Total Cells Counted 100
[2018-06-10] MEDS: IPRATROPIUM-ALBUTEROL 3 ML NEB INHALATION SCH ×4 (08:10→19:15)
[2018-06-10] MEDS ORDERED: APIXABAN 5 MG TAB PO ONE (08:30)
[2018-06-10] MEDS: CEFEPIME 2 GM in SODIUM CHLORIDE 0.9% 50 ML IVPB SCH ×2 (08:39→16:09)
[2018-06-10] MEDS ORDERED: APIXABAN 5 MG TAB PO SCH (09:00)
[2018-06-10] MEDS: INSULIN DETEMIR 100 UNIT/ML 10 ML VIAL SQ SCH ×2 (10:09→21:16)
[2018-06-10] MEDS: GABAPENTIN 400 MG CAP PO SCH ×4 (10:10→21:16)
[2018-06-10] MEDS: PANTOPRAZOLE 40 MG TABLET PO SCH ×2 (10:11→20:14)
[2018-06-10] MEDS: ETODOLAC 400 MG TAB PO SCH ×2 (10:13→20:17)
[2018-06-10] MEDS: VIT A,C & E-LUTEIN-MINERALS 1 EACH TAB PO SCH (10:14)
[2018-06-10] MEDS: LORATADINE 10 MG TAB PO SCH (10:14)
[2018-06-10] MEDS: LISINOPRIL 5 MG TAB PO SCH (10:14)
[2018-06-10] MEDS: HYDROCORTISONE 20 MG TAB PO SCH (10:15)
[2018-06-10] MEDS: FUROSEMIDE 20 MG TAB PO SCH ×2 (10:16→20:17)
[2018-06-10] MEDS: METOPROLOL TARTRATE 25 MG TAB PO SCH ×2 (10:17→20:19)
[2018-06-10] MEDS: DULoxetine HCL 30 MG CAPSULE.DR PO SCH ×2 (10:17→20:15)
[2018-06-10] MEDS: POTASSIUM CHLORIDE ER 20 MEQ TAB.ER PO SCH ×2 (10:18→20:19)
[2018-06-10] MEDS: CLOTRIMAZOLE/BETAMETH 1-0.05% CREAM 45 GM TUBE TOPICAL SCH ×2 (10:20→20:17)
[2018-06-10 11:56] LABS: Glucose,Whole Blood 204 mg/dL (75-99)
--- NOTE | 2018-06-10 12:13 | CDI ---
Last Revision, August 2017 Documentation Clarification Form Date: 06/10/18 From: Krista Granados RN Admit Date: 06/08/2018 12:01:00 PM Patient Name: Benja Ribera Visit Number: [id number] ATTENTION: The Clinical Documentation Specialists (CDI) and [facility] Coding Staff appreciate your assistance in clarifying documentation. Please respond to the clarification below the line at the bottom and electronically sign. The CDI & [facility] Coding staff will review the response and follow-up if needed. Please note: Queries are made part of the Legal Health Record. If you have any questions, please contact the author of this message via ITS. Dr. Bautista Romero MD, Can you please render your opinion on the following documentation? Pt admitted with pneumonia, CHF, pleural effusion, bronchospasm, failure of outpatient treatment. PN 06/09 states patient had "Recent hospitalization for sepsis and pneumonia, discharged 04/16/2018 and multiple previous hospital admissions for pneumonia and sepsis Consult 06/08 Dr Morton: Altered mental status related to sepsis/Sirs-like process related to bilateral pneumonia Clinical Indicators: WBC on admission: 7.3 ON 06/08 1.9 Lactic acid: 2.3 - 2/5 - 19 Blood cultures: no growth after 48 hours Vitals signs on admission: T 99.9, P 86, R 20, 129/71, 95% 2L: Temp spiked at 101.7: ON 06/10 96.7 Treatment: ID Consult: Dr. Hardin Antibiotics: Cefepime IVPB, Rocephin IVPB, Levofloxacin IVPB, Vanco IVPB IV Bolus: .9 1000ml x 2 In your professional opinion, please clarify if these findings signify one of the following conditions, whether the condition is POA, and cause, if known: Sepsis ruled in Sepsis ruled out SIRS, without or with underlying infectious process Severe Sepsis Septic Shock Other, please specify Unable to determine Present on Admission: Yes No Identify the (suspected) organism if known MTDD
--- NOTE | 2018-06-10 12:57 | CDI ---
Last Revision, August 2017 Documentation Clarification Form Date: 06/10/18 From: Krista Granados RN Admit Date: 06/08/2018 12:01:00 PM Patient Name: Benja Ribera Visit Number: [id number] ATTENTION: The Clinical Documentation Specialists (CDI) and [facility] Coding Staff appreciate your assistance in clarifying documentation. Please respond to the clarification below the line at the bottom and electronically sign. The CDI & [facility] Coding staff will review the response and follow-up if needed. Please note: Queries are made part of the Legal Health Record. If you have any questions, please contact the author of this message via ITS. Dr. Bautista Romero MD, Can you please render your opinion on the following documentation? Confusion is documented in the chart 06/08 and 06/09. Pt. was admitted with spiking fever, confusion and sleepiness History/Risk factors: CHF, bypass, DM2, DC, PNEUMONIA, APNEA, MASS ON PANCREAS. MRSA Clinical Indicators: Labs on admission: WBC 1.9, RC 3.86, HGB 7.9, HCT 28.3, C02 32, BUN 25. On 06.10 WBC 3.4 Patients temp. 97.1 - 101.7 PN 06/09: Pt. has had multiple hospital admission for pneumonia and sepsis Treatment: Consults: Pulmonary, ID, Medical Antibiotics: Cefepime IVPB, Rocephin IVPB, Levofloxacin IVPB, Vanco IVPB IV Bolus. .9 1000ml x2 In your professional opinion, can you please clarify if the patient has? Hypertensive Encephalopathy Metabolic Encephalopathy Septic Encephalopathy Other, please specify Unable to determine Patient did not have confusion upon admission to the hospital. There was no encephalopathy present this admission. MTDD
--- NOTE | 2018-06-10 14:08 | P.PN ---
Subjective Progress Note Date: 06/10/18 Principal diagnosis: Large to moderate left pleural effusion, Bilateral pneumonia, bilateral pleural effusion, acute exacerbation of acute on chronic systolic heart failure, chronic atrial fibrillation, recent gram-negative and MRSA related pneumonia, acute on chronic hypoxic respiratory failure, severe degree of obstructive sleep apnea on BiPAP, 06/10/2018, patient seen eval examined during the rounds the computed tomography scan of the chest is reviewed no dismayed of the right lower lobe nodularity Petrin and infiltrate, noted moderate to large pleural effusion on the left side will consult interventional radiology for left thoracentesis, patient has been on anticoagulation with Eliquis, the last does receive earlier this morning we'll stop it and give a period of 24-48 hours to be out of the system and the thoracentesis to be performed June 12 by interventional radiology consult order entered, labs and cytology entered as well 06/09/2018, patient seen eval examined during the rounds clinically patient is slightly better more awake and alert fever Petrin Has improved he did not spike a fever patient is on broad-spectrum antibiotics with IV vancomycin and cephapirin tolerating relatively better, is improved labs reviewed medications reviewed computed tomography scan of the chest is pending 57-year-old male who was seen evaluated examined on 6 floor this patient has been admitted into the hospital with a spiking fever and confusion and sleepiness related to that he does have chronic cough and shortness of breath however not much change from the baseline patient does have some component of dyspnea on exertion he is on supplemental oxygen 2 L, patient has been recently hospitalized for MRSA pneumonia and gram-negative pneumonia has been treated with long-term antibiotics ID service has been following, patient one day prior to admitting the hospital developed a spiking fever of 103 which was somewhat paroxysmal fever lasted causes some confusion as well however as per patient cough and shortness breath was not much different from baseline and has not been significantly changed patient was seen eval reexamined the emergency by subsequently admitted to the hospital where he was seen evaluated examined him on specific questioning denies any seizure-like activity loss of consciousness) , denies any chest pain or radiation of pain denies any fever or night sweats or chills except recent episode does have chronic shortness of breath chronic cough associated with thick sputum however not much change from baseline denies any bowel or bladder related problems does have chronic edema of the lower extremity which is not much change from baseline, patient does have sleep disorder breathing and sleep apnea has been on CPAP machine at home in addition patient also has a PICC line for which she is getting antibiotics on outpatient setting Objective - Vital Signs Vital signs: Vital Signs Temp 97.1 F L 06/10/18 11:53 Pulse 84 06/10/18 12:12 Resp 18 06/10/18 12:00 BP 127/96 06/10/18 11:53 Pulse Ox 93 L 06/10/18 11:53 Intake & Output 06/09/18 06/10/18 06/10/18 18:59 06:59 18:59 Intake Total 1390 100 200 Output Total 1900 1850 Balance -510 -1750 200 Weight 94 kg 94 kg Intake: Intake, IV Titration 550 100 Amount Cefepime 2 gm In Sodium 100 Chloride 0.9% 50 ml @ 100 mls/hr IVPB Q8HR [facility] Rx# :[id number] Magnesium Sulfate-D5w Pmx 200 100 1 gm In Dextrose/Water 1 100ml.bag @ 100 mls/hr IVPB Q1H [facility] Rx#: [id number] Vancomycin 1,500 mg In 250 Sodium Chloride 0.9% 250 ml @ 166.67 mls/hr IVPB Q16H [facility] Rx#:[id number] Oral 840 200 Output: Urine 1900 1850 Other: Voiding Method Urinal Urinal # Voids 1 3 # Bowel Movements 1 - Exam Constitutional General appearance: average body habitus, disheveled, no acute distress, obese - EENT Eyes: EOMI, PERRLA, normal appearance ENT: normal oropharynx Ears: bilateral: normal - Neck Neck: normal ROM Carotids: bilateral: upstroke normal, bruit absent Thyroid: bilateral: normal size - Respiratory Respiratory: bilateral: diminished (At the bases) more so on the left side compared to right side, wheezing (Bilateral on forced expiration), negative: rales, rhonchi - Cardiovascular Rhythm: regular Heart sounds: normal: S1, S2 - Gastrointestinal General gastrointestinal: normal bowel sounds, soft - Integumentary Integumentary: normal, normal turgor - Neurologic Neurologic: CNII-XII intact - Musculoskeletal Musculoskeletal: gait normal, generalized weakness, strength equal bilaterally - Psychiatric Psychiatric: A&O x's 3, appropriate affect, intact judgment & insight - Labs CBC & Chem 7: 06/10/18 05:48 06/10/18 05:48 Labs: Abnormal Lab Results - Last 24 Hours (Table) 06/09/18 06/09/18 06/10/18 Range/Units 16:35 20:35 05:48 WBC (3.8-10.6) k/uL RBC (4.30-5.90) m/uL Hgb (13.0-17.5) gm/dL Hct (39.0-53.0) % MCV (80.0-100.0) fL MCH (25.0-35.0) pg MCHC (31.0-37.0) g/dL RDW (11.5-15.5) % Lymphocytes # (Manual) (1.0-4.8) k/uL Potassium 3.4 L (3.5-5.1) mmol/L Carbon Dioxide 35 H (22-30) mmol/L BUN 25 H (9-20) mg/dL Glucose 110 H (74-99) mg/dL POC Glucose (mg/dL) 199 H 297 H (75-99) mg/dL Calcium 8.2 L (8.4-10.2) mg/dL 06/10/18 06/10/18 06/10/18 Range/Units 05:48 06:15 11:54 WBC 3.4 L (3.8-10.6) k/uL RBC 3.75 L (4.30-5.90) m/uL Hgb 7.6 L (13.0-17.5) gm/dL Hct 26.9 L (39.0-53.0) % MCV 71.8 L (80.0-100.0) fL MCH 20.2 L (25.0-35.0) pg MCHC 28.2 L (31.0-37.0) g/dL RDW 20.8 H (11.5-15.5) % Lymphocytes # (Manual) 0.61 L (1.0-4.8) k/uL Potassium (3.5-5.1) mmol/L Carbon Dioxide (22-30) mmol/L BUN (9-20) mg/dL Glucose (74-99) mg/dL POC Glucose (mg/dL) 130 H 204 H (75-99) mg/dL Calcium (8.4-10.2) mg/dL Microbiology - Last 24 Hours (Table) 06/09/18 11:45 Gram Stain - Preliminary Sputum Sputum Culture - Preliminary 06/07/18 21:13 Blood Culture - Preliminary Blood No Growth after 48 hours Assessment and Plan Assessment: Moderate to large left-sided pleural effusion Altered mental status related to Sirs-like process related to bilateral pneumonia MRSA pneumonia/gram-negative pneumonia Acute on chronic hypoxic respiratory failure Severe degree of sleep disorder breathing and sleep apnea Small bilateral pleural effusion History of recent pneumonia Chronic systolic heart failure Chronic atrial fibrillation Plan: Broad-spectrum antibiotics Breathing treatments Gentle diuresis Once computed tomography scan of the chest without IV dye done will review it with further recommendations pending Further recommendations pending plan of care as per clinical response of the patient DVT and peptic ulcer disease prophylaxis Will stop Eliquis and consult interventional radiology for left thoracentesis to be performed on June 12 Time with Patient: Greater than 30
--- NOTE | 2018-06-10 15:06 | P.PN ---
Subjective Progress Note Date: 06/10/18 06/09/2018 Patient seen and examined at the bedside. Patient is awake and alert. Sitting at the bedside. He denies shortness of breath. Denies chest pain or pressure. Appetite is good. Denies nausea or vomiting. Infectious disease is following. He is on Vanco and Cefepime. Pulmonary is following as well. He is scheduled for CT scan today. Spoke to patient regarding transfer to [facility] secondary to patient being unable to have testing completed that Dr. Mcgrath ordered for his liver/pancreas due to numerous hospitalizations. Patient declining transfer at this time. states she is going to get in touch with Keira, who works with Dr. Mcgrath to see what options are available for getting testing completed and will let provider know. 06/10/2018 Patient seen and examined at the bedside. Patient is awake and alert. He denies shortness of breath. Denies chest pain or pressure. Appetite is good. Denies nausea or vomiting. Infectious disease is following. He is on Vanco and Cefepime. Pulmonary is following along with patient also. He is scheduled for left thoracentesis to be performed on . His Eliquis was has been discontinued due to upcoming thoracentesis. Patient states he spoke with Dr. Boo office and he can have outpatient test performed even if he is discharged home on antibiotics. Patient states he will schedule testing OPAL. Objective - Vital Signs Vital signs: Vital Signs Temp 97.1 F L 06/10/18 11:53 Pulse 84 06/10/18 12:12 Resp 18 06/10/18 12:00 BP 127/96 06/10/18 11:53 Pulse Ox 93 L 06/10/18 11:53 Intake & Output 06/09/18 06/10/18 06/10/18 18:59 06:59 18:59 Intake Total 1390 100 200 Output Total 1900 1850 Balance -510 -1750 200 Weight 94 kg 94 kg Intake: Intake, IV Titration 550 100 Amount Cefepime 2 gm In Sodium 100 Chloride 0.9% 50 ml @ 100 mls/hr IVPB Q8HR [facility] Rx# :[id number] Magnesium Sulfate-D5w Pmx 200 100 1 gm In Dextrose/Water 1 100ml.bag @ 100 mls/hr IVPB Q1H [facility] Rx#: [id number] Vancomycin 1,500 mg In 250 Sodium Chloride 0.9% 250 ml @ 166.67 mls/hr IVPB Q16H [facility] Rx#:[id number] Oral 840 200 Output: Urine 1900 1850 Other: Voiding Method Urinal Urinal # Voids 1 3 # Bowel Movements 1 - Exam GENERAL: This is a 57-year-old male in no apparent distress at the time of examination. Pleasant and cooperative. HEENT: Head is atraumatic, normocephalic. Pupils are equal, round, and reactive to light. Sclerae anicteric. Conjunctivae are clear. Mucus membranes of the mouth are moist. Neck is supple. RESPIRATORY: Diminished lung sounds to bilateral bases. No rhonchi or rales noted. No use of accessory muscles. Patient maintaining oxygen saturation greater than 92%. No chest wall tenderness is noted on palpation or with deep breathing. CARDIOVASCULAR: Regular rate and rhythm. S1 and S2 noted. No JVD noted. No S3 or S4 noted. GASTROINTESTINAL: No distention noted. Abdomen soft and round. Normal active bowel sounds auscultated x 4 quadrants. No pain or tenderness noted upon palpation. INTEGUMENTARY: No cyanosis. No jaundice. No rashes noted. No cellulitis noted. EXTREMITIES: 2+ peripheral pulses. 2+ bilateral lower extremity peripheral edema. No calf tenderness noted. NEUROLOGIC: Cranial nerves II-XII intact. PSYCHIATRIC: Awake, alert, and oriented X 3. Appropriate affect. Intact judgement and insight. - Labs CBC & Chem 7: 06/10/18 05:48 06/10/18 05:48 Labs: Abnormal Lab Results - Last 24 Hours (Table) 06/09/18 06/09/18 06/10/18 Range/Units 16:35 20:35 05:48 WBC (3.8-10.6) k/uL RBC (4.30-5.90) m/uL Hgb (13.0-17.5) gm/dL Hct (39.0-53.0) % MCV (80.0-100.0) fL MCH (25.0-35.0) pg MCHC (31.0-37.0) g/dL RDW (11.5-15.5) % Lymphocytes # (Manual) (1.0-4.8) k/uL Potassium 3.4 L (3.5-5.1) mmol/L Carbon Dioxide 35 H (22-30) mmol/L BUN 25 H (9-20) mg/dL Glucose 110 H (74-99) mg/dL POC Glucose (mg/dL) 199 H 297 H (75-99) mg/dL Calcium 8.2 L (8.4-10.2) mg/dL 06/10/18 06/10/18 06/10/18 Range/Units 05:48 06:15 11:54 WBC 3.4 L (3.8-10.6) k/uL RBC 3.75 L (4.30-5.90) m/uL Hgb 7.6 L (13.0-17.5) gm/dL Hct 26.9 L (39.0-53.0) % MCV 71.8 L (80.0-100.0) fL MCH 20.2 L (25.0-35.0) pg MCHC 28.2 L (31.0-37.0) g/dL RDW 20.8 H (11.5-15.5) % Lymphocytes # (Manual) 0.61 L (1.0-4.8) k/uL Potassium (3.5-5.1) mmol/L Carbon Dioxide (22-30) mmol/L BUN (9-20) mg/dL Glucose (74-99) mg/dL POC Glucose (mg/dL) 130 H 204 H (75-99) mg/dL Calcium (8.4-10.2) mg/dL Microbiology - Last 24 Hours (Table) 06/09/18 11:45 Gram Stain - Preliminary Sputum Sputum Culture - Preliminary 06/07/18 21:13 Blood Culture - Preliminary Blood No Growth after 48 hours Assessment and Plan Plan: ASSESSMENT: Bilateral pneumonia SIRS, present on admission, with underlying infectious etiology of bilateral pneumonia Bilateral pleural effusions, left larger than right Acute on chronic systolic congestive heart failure, EF 35-40% Recent hospitalization for pneumonia, 05/22/2018-05/27/2018, sputum positive for MRSA, discharged home on vancomycin and Rocephin Recent hospitalization for right infrahilar pneumonia, 05/12/18-05/20/18, sputum culture positive for E. coli, s/p bronch with BAL, culture positive for jumana , discharged home on 14 day course of Rocephin Recent hospitalization for right lower lobe pneumonia 04/29/2018-05/05/2018, discharged home on 7 day course of Levaquin Recent hospitalization for sepsis and pneumonia, discharged 04/16/2018 on 10 day regimen of Vancomycin Paroxysmal atrial fibrillation, maintained on long-term anticoagulation with Eliquis Coronary artery disease with previous coronary artery bypass grafting and previous stent placement Diabetes mellitus type II Hyperglycemia Multiple previous hospital admissions for pneumonia and sepsis Obstructive sleep apnea, Patient reports compliance with CPAP Microcytic hypochromic anemia, etiology unclear, patient was to have colonoscopy 03/2018 but unable to have procedure due to fevers and weakness. 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 Mcgrath, patient declined surgical intervention History of transaminitis, etiology unclear, may be secondary to pancreatic tail neuroendocrine tumor and/or several areas of hypodensity in subcapsular region of both liver lobes, patient follows outpatient with Dr. Mcgrath. Chronic adrenal insufficiency, maintained on Cortef Previous cellulitis with MRSA History of MRSA pneumonia Hyperlipidemia Osteoarthritis Hypothyroidism Obesity: BMI 34.8 Stage 2 pressure ulcer of buttocks, present on admission Hypokalemia PLAN: Infectious disease on consult. Appreciate recommendations and input Antibiotics per ID: Currently on vancomycin and cefepime Pulmonary on consult. Appreciate recommendations and input The patient to have thoracentesis performed on Eliquis on hold due to upcoming thoracentesis. Restart after procedure. Continue to supplement potassium. Repeat in a.m. Home meds as appropriate Monitor labs GI prophylaxis: Protonix 20 mg by mouth twice a day DVT prophylaxis: AMBIKA hose to bilateral lower extremities Monitor vital signs and address as appropriate Discharge planning: Patient to return home when stable Patient to schedule outpatient testing with Dr. Mcgrath opal Further recommendations pending patient's course Nurse practitioner note has been reviewed by physician. Signing provider agrees with the documented findings, assessment, and plan of care.
[2018-06-10 16:49] LABS: Glucose,Whole Blood 204 mg/dL (75-99)
[2018-06-10] MEDS: amLODIPine 5 MG TAB PO SCH (20:15)
[2018-06-10] MEDS: ATORVASTATIN 80 MG TAB PO SCH (20:16)
[2018-06-10] MEDS: LEVOTHYROXINE 50 MCG TAB PO SCH (20:18)
[2018-06-10] MEDS: MONTELUKAST 10 MG TAB PO SCH (20:19)
[2018-06-10 21:00] LABS: Glucose,Whole Blood 209 mg/dL (75-99)
[2018-06-11] MEDS: HYDROcodone/APAP 10-325MG 1 EACH TAB PO PRN ×5 (00:29→21:19)
[2018-06-11] MEDS: CEFEPIME 2 GM in SODIUM CHLORIDE 0.9% 50 ML IVPB SCH ×4 (00:29→23:33)
[2018-06-11] MEDS: IPRATROPIUM-ALBUTEROL 3 ML NEB INHALATION PRN (01:01)
[2018-06-11] MEDS: SODIUM CHLORIDE 0.9% 1,000 ML IV SCH (04:23)
[2018-06-11 06:00] LABS: Glucose,Whole Blood 72 mg/dL (75-99)
[2018-06-11] MEDS: INSULIN ASPART 100 UNIT/ML 1 ML 10 ML VIAL SQ SCH ×8 (06:23→21:19)
[2018-06-11 06:34] LABS: Anisocytosis Moderate; HCT 31.3 % (39.0-53.0); HGB 8.5 gm/dL (13.0-17.5); Hypochromasia Marked; MCH 20.1 pg (25.0-35.0); MCHC 27.2 g/dL (31.0-37.0); MCV 73.7 fL (80.0-100.0); Mean Platelet Volume 6.6; Microcytosis Moderate; Platelet Count 236 k/uL (150-450); Poikilocytosis Slight; RBC 4.24 m/uL (4.30-5.90); RDW 20.4 % (11.5-15.5); WBC 4.1 k/uL (3.8-10.6)
[2018-06-11 06:39] LABS: Anion Gap 6 mmol/L; Blood Urea Nitrogen 24 mg/dL (9-20); Calcium 8.3 mg/dL (8.4-10.2); Carbon Dioxide 36 mmol/L (22-30); Chloride 99 mmol/L (98-107); Glucose 63 mg/dL (74-99); Potassium 3.4 mmol/L (3.5-5.1); Sodium 141 mmol/L (137-145)
[2018-06-11 07:16] LABS: Band Neutrophils % 1 %; Basophils # (M) 0.04 k/uL (0-0.2); Eosinophils # (M) 0.29 k/uL (0-0.7); Lymphocytes # (M) 0.57 k/uL (1.0-4.8); Monocytes # (M) 0.62 k/uL (0-1.0); Neutrophils % (M) 62 %; Nucleated Red Blood Cells 0 /100 WBC (0-0); Total Cells Counted 100
[2018-06-11 07:18] LABS: Target Cells Present
[2018-06-11] MEDS: CLOTRIMAZOLE/BETAMETH 1-0.05% CREAM 45 GM TUBE TOPICAL SCH ×2 (08:11→21:12)
[2018-06-11] MEDS: LISINOPRIL 5 MG TAB PO SCH (08:12)
[2018-06-11] MEDS: ETODOLAC 400 MG TAB PO SCH ×2 (08:13→21:11)
[2018-06-11] MEDS: DULoxetine HCL 30 MG CAPSULE.DR PO SCH ×2 (08:13→21:11)
[2018-06-11] MEDS: POTASSIUM CHLORIDE ER 20 MEQ TAB.ER PO SCH ×2 (08:14→21:11)
[2018-06-11] MEDS: PANTOPRAZOLE 40 MG TABLET PO SCH ×2 (08:15→21:12)
[2018-06-11] MEDS: VIT A,C & E-LUTEIN-MINERALS 1 EACH TAB PO SCH (08:15)
[2018-06-11] MEDS: FUROSEMIDE 20 MG TAB PO SCH ×2 (08:15→21:10)
[2018-06-11] MEDS: HYDROCORTISONE 20 MG TAB PO SCH (08:16)
[2018-06-11] MEDS: METOPROLOL TARTRATE 25 MG TAB PO SCH ×2 (08:16→21:11)
[2018-06-11] MEDS: LORATADINE 10 MG TAB PO SCH (08:17)
[2018-06-11] MEDS: IPRATROPIUM-ALBUTEROL 3 ML NEB INHALATION SCH ×4 (08:18→20:36)
[2018-06-11] MEDS: GABAPENTIN 400 MG CAP PO SCH ×4 (08:20→23:33)
[2018-06-11] MEDS: INSULIN DETEMIR 100 UNIT/ML 10 ML VIAL SQ SCH ×2 (08:21→21:19)
[2018-06-11] MEDS ORDERED: POTASSIUM CHLORIDE ER 20 MEQ TAB.ER PO STA (11:11)
--- NOTE | 2018-06-11 11:14 | P.PN ---
Subjective Progress Note Date: 06/11/18 06/09/2018 Patient seen and examined at the bedside. Patient is awake and alert. Sitting at the bedside. He denies shortness of breath. Denies chest pain or pressure. Appetite is good. Denies nausea or vomiting. Infectious disease is following. He is on Vanco and Cefepime. Pulmonary is following as well. He is scheduled for CT scan today. Spoke to patient regarding transfer to [facility] secondary to patient being unable to have testing completed that Dr. Mcgrath ordered for his liver/pancreas due to numerous hospitalizations. Patient declining transfer at this time. states she is going to get in touch with Keira, who works with Dr. Mcgrath to see what options are available for getting testing completed and will let provider know. 06/10/2018 Patient seen and examined at the bedside. Patient is awake and alert. He denies shortness of breath. Denies chest pain or pressure. Appetite is good. Denies nausea or vomiting. Infectious disease is following. He is on Vanco and Cefepime. Pulmonary is following along with patient also. He is scheduled for left thoracentesis to be performed on . His Eliquis was has been discontinued due to upcoming thoracentesis. Patient states he spoke with Dr. Boo office and he can have outpatient test performed even if he is discharged home on antibiotics. Patient states he will schedule testing OPAL. 06/11/2018 Patient seen and examined at the bedside. Patient is awake and alert. Patient reports he did not sleep well last night due to staff coming in every hour or two. He takes he has taken a nap this morning. He denies chest pain. Denies shortness of breath at rest. Patient is scheduled for left thoracentesis tomorrow. Eliquis remains on hold. Objective - Vital Signs Vital signs: Vital Signs Temp 97.8 F 06/11/18 08:00 Pulse 76 06/11/18 08:33 Resp 18 06/11/18 08:00 BP 130/74 06/11/18 08:00 Pulse Ox 98 06/11/18 08:00 Intake & Output 06/10/18 06/11/18 06/11/18 18:59 06:59 18:59 Intake Total 433 1470 Output Total 1300 Balance 433 170 Weight 94 kg 91.1 kg Intake: Intake, IV Titration 510 Amount Cefepime 2 gm In Sodium 100 Chloride 0.9% 50 ml @ 100 mls/hr IVPB Q8HR [facility] Rx# :[id number] Sodium Chloride 0.9% 1, 160 000 ml @ 20 mls/hr IV . Q24H [facility] Rx#:[id number] Vancomycin 1,500 mg In 250 Sodium Chloride 0.9% 250 ml @ 166.67 mls/hr IVPB Q16H [facility] Rx#:[id number] Oral 433 960 Output: Urine 1300 Other: Voiding Method Urinal Urinal Urinal # Voids 1 - Exam GENERAL: This is a 57-year-old male in no apparent distress at the time of examination. Pleasant and cooperative. HEENT: Head is atraumatic, normocephalic. Pupils are equal, round, and reactive to light. Sclerae anicteric. Conjunctivae are clear. Mucus membranes of the mouth are moist. Neck is supple. RESPIRATORY: Diminished lung sounds to bilateral bases. No rhonchi or rales noted. No use of accessory muscles. Patient maintaining oxygen saturation greater than 92%. No chest wall tenderness is noted on palpation or with deep breathing. CARDIOVASCULAR: Regular rate and rhythm. S1 and S2 noted. No JVD noted. No S3 or S4 noted. GASTROINTESTINAL: No distention noted. Abdomen soft and round. Normal active bowel sounds auscultated x 4 quadrants. No pain or tenderness noted upon palpation. INTEGUMENTARY: No cyanosis. No jaundice. No rashes noted. No cellulitis noted. EXTREMITIES: 2+ peripheral pulses. 1-2+ bilateral lower extremity peripheral edema. No calf tenderness noted. NEUROLOGIC: Cranial nerves II-XII intact. PSYCHIATRIC: Awake, alert, and oriented X 3. Appropriate affect. Intact judgement and insight. - Labs CBC & Chem 7: 06/11/18 05:49 06/11/18 05:49 Labs: Abnormal Lab Results - Last 24 Hours (Table) 06/10/18 06/10/18 06/10/18 Range/Units 11:54 16:45 20:59 RBC (4.30-5.90) m/uL Hgb (13.0-17.5) gm/dL Hct (39.0-53.0) % MCV (80.0-100.0) fL MCH (25.0-35.0) pg MCHC (31.0-37.0) g/dL RDW (11.5-15.5) % Lymphocytes # (Manual) (1.0-4.8) k/uL Potassium (3.5-5.1) mmol/L Carbon Dioxide (22-30) mmol/L BUN (9-20) mg/dL Glucose (74-99) mg/dL POC Glucose (mg/dL) 204 H 204 H 209 H (75-99) mg/dL Calcium (8.4-10.2) mg/dL 06/11/18 06/11/18 06/11/18 Range/Units 05:49 05:49 05:59 RBC 4.24 L (4.30-5.90) m/uL Hgb 8.5 L (13.0-17.5) gm/dL Hct 31.3 L (39.0-53.0) % MCV 73.7 L (80.0-100.0) fL MCH 20.1 L (25.0-35.0) pg MCHC 27.2 L (31.0-37.0) g/dL RDW 20.4 H (11.5-15.5) % Lymphocytes # (Manual) 0.57 L (1.0-4.8) k/uL Potassium 3.4 L (3.5-5.1) mmol/L Carbon Dioxide 36 H (22-30) mmol/L BUN 24 H (9-20) mg/dL Glucose 63 L (74-99) mg/dL POC Glucose (mg/dL) 72 L (75-99) mg/dL Calcium 8.3 L (8.4-10.2) mg/dL Microbiology - Last 24 Hours (Table) 06/07/18 21:13 Blood Culture - Preliminary Blood No Growth after 72 hours Assessment and Plan Plan: ASSESSMENT: Bilateral pneumonia SIRS, present on admission, with underlying infectious etiology of bilateral pneumonia Bilateral pleural effusions, left larger than right Acute on chronic systolic congestive heart failure, EF 35-40% Recent hospitalization for pneumonia, 05/22/2018-05/27/2018, sputum positive for MRSA, discharged home on vancomycin and Rocephin Recent hospitalization for right infrahilar pneumonia, 05/12/18-05/20/18, sputum culture positive for E. coli, s/p bronch with BAL, culture positive for jumana , discharged home on 14 day course of Rocephin Recent hospitalization for right lower lobe pneumonia 04/29/2018-05/05/2018, discharged home on 7 day course of Levaquin Recent hospitalization for sepsis and pneumonia, discharged 04/16/2018 on 10 day regimen of Vancomycin Paroxysmal atrial fibrillation, maintained on long-term anticoagulation with Eliquis Coronary artery disease with previous coronary artery bypass grafting and previous stent placement Diabetes mellitus type II Hyperglycemia Hypoglycemia Multiple previous hospital admissions for pneumonia and sepsis Obstructive sleep apnea, Patient reports compliance with CPAP Microcytic hypochromic anemia, etiology unclear, patient was to have colonoscopy 03/2018 but unable to have procedure due to fevers and weakness. 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 Mcgrath, patient declined surgical intervention History of transaminitis, etiology unclear, may be secondary to pancreatic tail neuroendocrine tumor and/or several areas of hypodensity in subcapsular region of both liver lobes, patient follows outpatient with Dr. Mcgrath. Chronic adrenal insufficiency, maintained on Cortef Previous cellulitis with MRSA History of MRSA pneumonia Hyperlipidemia Osteoarthritis Hypothyroidism Obesity: BMI 34.8 Stage 2 pressure ulcer of buttocks, present on admission Hypokalemia secondary to diuresis PLAN: Infectious disease on consult. Appreciate recommendations and input Antibiotics per ID: Currently on vancomycin and cefepime Pulmonary on consult. Appreciate recommendations and input The patient to have thoracentesis performed on on hold due to upcoming thoracentesis. Restart after procedure. Continue to supplement potassium. Repeat in a.m. Home meds as appropriate Monitor labs GI prophylaxis: Protonix 20 mg by mouth twice a day DVT prophylaxis: AMBIKA hose to bilateral lower extremities Monitor vital signs and address as appropriate Discharge planning: Patient to return home when stable Patient to schedule outpatient testing with Dr. Ramila mariscal Further recommendations pending patient's course Nurse practitioner note has been reviewed by physician. Signing provider agrees with the documented findings, assessment, and plan of care.
[2018-06-11 11:59] LABS: Glucose,Whole Blood 285 mg/dL (75-99)
[2018-06-11] MEDS: VANCOMYCIN 1,500 MG in SODIUM CHLORIDE 0.9% 250 ML IVPB SCH (13:35)
[2018-06-11 17:19] LABS: Glucose,Whole Blood 139 mg/dL (75-99)
[2018-06-11 20:57] LABS: Glucose,Whole Blood 204 mg/dL (75-99)
[2018-06-11] MEDS: LEVOTHYROXINE 50 MCG TAB PO SCH (21:10)
[2018-06-11] MEDS: ATORVASTATIN 80 MG TAB PO SCH (21:11)
[2018-06-11] MEDS: amLODIPine 5 MG TAB PO SCH (21:11)
[2018-06-11] MEDS: MONTELUKAST 10 MG TAB PO SCH (21:12)
[2018-06-12] MEDS: SODIUM CHLORIDE 0.9% 1,000 ML IV SCH (01:39)
[2018-06-12 05:59] LABS: Glucose,Whole Blood 173 mg/dL (75-99)
[2018-06-12] MEDS: VANCOMYCIN 1,500 MG in SODIUM CHLORIDE 0.9% 250 ML IVPB SCH ×2 (06:06→21:30)
[2018-06-12] MEDS: INSULIN ASPART 100 UNIT/ML 1 ML 10 ML VIAL SQ SCH ×8 (07:02→21:29)
[2018-06-12 07:06] LABS: Anisocytosis Moderate; HCT 32.5 % (39.0-53.0); HGB 8.8 gm/dL (13.0-17.5); Hypochromasia Marked; MCH 19.5 pg (25.0-35.0); MCHC 27.1 g/dL (31.0-37.0); MCV 72.1 fL (80.0-100.0); Mean Platelet Volume 7.2; Microcytosis Marked; Platelet Count 273 k/uL (150-450); Poikilocytosis Slight; RDW 20.4 % (11.5-15.5); WBC 4.9 k/uL (3.8-10.6)
[2018-06-12 07:12] LABS: Blood Urea Nitrogen 25 mg/dL (9-20); Calcium 8.6 mg/dL (8.4-10.2); Chloride 97 mmol/L (98-107); Glucose 127 mg/dL (74-99); Magnesium 1.4 mg/dL (1.6-2.3); Potassium 3.7 mmol/L (3.5-5.1); Sodium 145 mmol/L (137-145)
[2018-06-12 07:18] LABS: Anion Gap 9 mmol/L; Carbon Dioxide 39 mmol/L (22-30)
[2018-06-12] MEDS: IPRATROPIUM-ALBUTEROL 3 ML NEB INHALATION SCH ×4 (08:23→20:32)
[2018-06-12 08:37] LABS: Basophils # (M) 0.05 k/uL (0-0.2); Eosinophils # (M) 0.25 k/uL (0-0.7); Lymphocytes # (M) 1.47 k/uL (1.0-4.8); Monocytes # (M) 0.83 k/uL (0-1.0); Neutrophils % (M) 47 %; Nucleated Red Blood Cells 0 /100 WBC (0-0); Total Cells Counted 100
[2018-06-12 09:16] LABS: INR 1.3 (<1.2); Prothrombin Time 12.3 sec (9.0-12.0)
[2018-06-12] MEDS: CEFEPIME 2 GM in SODIUM CHLORIDE 0.9% 50 ML IVPB SCH ×3 (09:19→23:19)
[2018-06-12 09:20] LABS: Mean Platelet Volume 7.2; Platelet Count 231 k/uL (150-450)
[2018-06-12] MEDS: DULoxetine HCL 30 MG CAPSULE.DR PO SCH ×2 (09:28→21:01)
[2018-06-12] MEDS: ETODOLAC 400 MG TAB PO SCH ×2 (09:28→21:02)
[2018-06-12] MEDS: CLOTRIMAZOLE/BETAMETH 1-0.05% CREAM 45 GM TUBE TOPICAL SCH ×2 (09:28→21:04)
[2018-06-12] MEDS: FUROSEMIDE 20 MG TAB PO SCH ×2 (09:29→21:01)
[2018-06-12] MEDS: LISINOPRIL 5 MG TAB PO SCH (09:30)
[2018-06-12] MEDS: METOPROLOL TARTRATE 25 MG TAB PO SCH ×2 (09:30→21:02)
[2018-06-12] MEDS: LORATADINE 10 MG TAB PO SCH (09:30)
[2018-06-12] MEDS: POTASSIUM CHLORIDE ER 20 MEQ TAB.ER PO SCH ×2 (09:31→21:01)
[2018-06-12] MEDS: VIT A,C & E-LUTEIN-MINERALS 1 EACH TAB PO SCH (09:31)
[2018-06-12] MEDS: GABAPENTIN 400 MG CAP PO SCH ×4 (09:41→21:30)
[2018-06-12] MEDS: PANTOPRAZOLE 40 MG TABLET PO SCH ×2 (09:41→21:02)
[2018-06-12] MEDS: INSULIN DETEMIR 100 UNIT/ML 10 ML VIAL SQ SCH ×2 (09:42→21:29)
[2018-06-12] MEDS: HYDROCORTISONE 20 MG TAB PO SCH (10:46)
[2018-06-12] MEDS: HYDROcodone/APAP 10-325MG 1 EACH TAB PO PRN ×3 (10:48→21:30)
[2018-06-12 11:40] LABS: Glucose,Whole Blood 120 mg/dL (75-99)
--- NOTE | 2018-06-12 12:46 | XR ---
EXAMINATION TYPE: XR chest 1V portable DATE OF EXAM: 06/12/2018 COMPARISON: 06/07/2018 HISTORY: Left thoracentesis TECHNIQUE: Single frontal view of the chest is obtained. FINDINGS: The cardiac silhouette size is within normal limits. The osseous structures are intact. Postoperative change and left-sided PICC line. Right basilar atelectasis and tiny effusion. Vague rig ht perihilar density. IMPRESSION: 1. No pneumothorax post thoracentesis. 2. Right perihilar and right lower lobe infiltrate with tiny right effusion. Follow resolution to exc lude other etiologies.
--- NOTE | 2018-06-12 12:48 | US ---
Ultrasound-guided therapeutic and diagnostic thoracentesis DATE OF EXAM: 06/12/2018 CLINICAL HISTORY: Left pleural effusion The procedure was discussed with the patient. The risks, complications, benefits, and alternatives we re discussed and any questions were answered. Informed consent was obtained. The patient was placed supine on the ultrasound table and prepped and draped in the usual sterile fas hion. All elements of maximal barrier and sterile technique were utilized. Under ultrasound guidance, access into the pleural space was obtained, via the thoracentesis catheter system and direct ultrasound guidance.Dragan roximately 0.5 liters of serous fluid was removed. Sample sent to pathology for analysis. The patient was stable throughout the procedure and remained stable upon discharge from Department of Radiology. IMPRESSION: 1. Successful therapeutic and diagnostic thoracentesis under ultrasound guidance.
[2018-06-12] MEDS ORDERED: Magnesium Replacement Protocol 1 EACH MISC MISCELLANE PRN (13:01)
[2018-06-12] MEDS: MAGNESIUM SULFATE-D5W PMX 1 GM in DEXTROSE/WATER 1 100ML.BAG IVPB SCH ×3 (14:00→16:27)
--- NOTE | 2018-06-12 14:05 | P.PN ---
Subjective Progress Note Date: 06/12/18 06/09/2018 Patient seen and examined at the bedside. Patient is awake and alert. Sitting at the bedside. He denies shortness of breath. Denies chest pain or pressure. Appetite is good. Denies nausea or vomiting. Infectious disease is following. He is on Vanco and Cefepime. Pulmonary is following as well. He is scheduled for CT scan today. Spoke to patient regarding transfer to [facility] secondary to patient being unable to have testing completed that Dr. Mcgrath ordered for his liver/pancreas due to numerous hospitalizations. Patient declining transfer at this time. states she is going to get in touch with Keira, who works with Dr. Mcgrath to see what options are available for getting testing completed and will let provider know. 06/10/2018 Patient seen and examined at the bedside. Patient is awake and alert. He denies shortness of breath. Denies chest pain or pressure. Appetite is good. Denies nausea or vomiting. Infectious disease is following. He is on Vanco and Cefepime. Pulmonary is following along with patient also. He is scheduled for left thoracentesis to be performed on . His Eliquis was has been discontinued due to upcoming thoracentesis. Patient states he spoke with Dr. Boo office and he can have outpatient test performed even if he is discharged home on antibiotics. Patient states he will schedule testing OPAL. 06/11/2018 Patient seen and examined at the bedside. Patient is awake and alert. Patient reports he did not sleep well last night due to staff coming in every hour or two. He takes he has taken a nap this morning. He denies chest pain. Denies shortness of breath at rest. Patient is scheduled for left thoracentesis tomorrow. Eliquis remains on hold. 06/12/2018 Patient seen and examined at the bedside. Patient underwent left thoracentesis with 500 mL of serous fluid removed. Fluid was sent to pathology for analysis. Patient denies shortness of breath. Denies chest pain or pressure. Vital signs have been stable. He is afebrile. Appetite is good. Patient states he wore his CPAP last night from midnight until about 4am and then forgot to put it back on. Stressed importance of compliance with CPAP. Objective - Vital Signs Vital signs: Vital Signs Temp 97.8 F 06/12/18 08:00 Pulse 60 09/27/18 13:33 Resp 20 06/12/18 12:18 BP 148/68 06/12/18 12:18 Pulse Ox 93 L 06/12/18 12:00 Intake & Output 06/11/18 06/12/18 06/12/18 18:59 06:59 18:59 Intake Total 40 260 Output Total 450 450 Balance -450 40 -190 Weight 87.8 kg Intake: IV 40 Sodium Chloride 0.9% 1, 40 000 ml @ 20 mls/hr IV . Q24H [facility] Rx#:[id number] Intake, IV Titration 20 Amount Sodium Chloride 0.9% 1, 20 000 ml @ 20 mls/hr IV . Q24H [facility] Rx#:[id number] Oral 240 Output: Urine 450 450 Other: Voiding Method Urinal Toilet # Voids 1 1 1 - Exam GENERAL: This is a 57-year-old male in no apparent distress at the time of examination. Pleasant and cooperative. HEENT: Head is atraumatic, normocephalic. Pupils are equal, round, and reactive to light. Sclerae anicteric. Conjunctivae are clear. Mucus membranes of the mouth are moist. Neck is supple. RESPIRATORY: Clear to auscultation. No rhonchi or rales noted. No use of accessory muscles. Patient maintaining oxygen saturation greater than 92%. No chest wall tenderness is noted on palpation or with deep breathing. CARDIOVASCULAR: Regular rate and rhythm. S1 and S2 noted. No JVD noted. No S3 or S4 noted. GASTROINTESTINAL: No distention noted. Abdomen soft and round. Normal active bowel sounds auscultated x 4 quadrants. No pain or tenderness noted upon palpation. INTEGUMENTARY: No cyanosis. No jaundice. No rashes noted. No cellulitis noted. EXTREMITIES: 2+ peripheral pulses. Trace bilateral lower extremity peripheral edema. No calf tenderness noted. NEUROLOGIC: Cranial nerves II-XII intact. PSYCHIATRIC: Awake, alert, and oriented X 3. Appropriate affect. Intact judgement and insight. - Labs CBC & Chem 7: 06/12/18 08:47 06/12/18 06:27 Labs: Abnormal Lab Results - Last 24 Hours (Table) 06/11/18 06/11/18 06/11/18 Range/Units 05:49 17:09 20:55 Hgb (13.0-17.5) gm/dL Hct (39.0-53.0) % MCV (80.0-100.0) fL MCH (25.0-35.0) pg MCHC (31.0-37.0) g/dL RDW (11.5-15.5) % PT (9.0-12.0) sec INR (<1.2) Chloride (98-107) mmol/L Carbon Dioxide (22-30) mmol/L BUN (9-20) mg/dL Glucose (74-99) mg/dL POC Glucose (mg/dL) 139 H 204 H (75-99) mg/dL Magnesium 1.4 L (1.6-2.3) mg/dL 06/12/18 06/12/18 06/12/18 Range/Units 05:58 06:27 06:27 Hgb 8.8 L (13.0-17.5) gm/dL Hct 32.5 L (39.0-53.0) % MCV 72.1 L (80.0-100.0) fL MCH 19.5 L (25.0-35.0) pg MCHC 27.1 L (31.0-37.0) g/dL RDW 20.4 H (11.5-15.5) % PT (9.0-12.0) sec INR (<1.2) Chloride 97 L (98-107) mmol/L Carbon Dioxide 39 H (22-30) mmol/L BUN 25 H (9-20) mg/dL Glucose 127 H (74-99) mg/dL POC Glucose (mg/dL) 173 H (75-99) mg/dL Magnesium 1.4 L (1.6-2.3) mg/dL 06/12/18 06/12/18 Range/Units 08:47 11:34 Hgb (13.0-17.5) gm/dL Hct (39.0-53.0) % MCV (80.0-100.0) fL MCH (25.0-35.0) pg MCHC (31.0-37.0) g/dL RDW (11.5-15.5) % PT 12.3 H (9.0-12.0) sec INR 1.3 H (<1.2) Chloride (98-107) mmol/L Carbon Dioxide (22-30) mmol/L BUN (9-20) mg/dL Glucose (74-99) mg/dL POC Glucose (mg/dL) 120 H (75-99) mg/dL Magnesium (1.6-2.3) mg/dL Microbiology - Last 24 Hours (Table) 06/09/18 11:45 Gram Stain - Final Sputum Sputum Culture - Final Jumana albicans Jumana glabrata 06/07/18 21:13 Blood Culture - Preliminary Blood No Growth after 96 hours Assessment and Plan Plan: ASSESSMENT: Bilateral pneumonia SIRS, present on admission, with underlying infectious etiology of bilateral pneumonia Bilateral pleural effusions, left larger than right, status post left thoracentesis 06/12/2018 with removal of 500 mL Acute on chronic systolic congestive heart failure, EF 35-40% Recent hospitalization for pneumonia, 05/22/2018-05/27/2018, sputum positive for MRSA, discharged home on vancomycin and Rocephin Recent hospitalization for right infrahilar pneumonia, 05/12/18-05/20/18, sputum culture positive for E. coli, s/p bronch with BAL, culture positive for jumana , discharged home on 14 day course of Rocephin Recent hospitalization for right lower lobe pneumonia 04/29/2018-05/05/2018, discharged home on 7 day course of Levaquin Recent hospitalization for sepsis and pneumonia, discharged 04/16/2018 on 10 day regimen of Vancomycin Paroxysmal atrial fibrillation, maintained on long-term anticoagulation with Eliquis Coronary artery disease with previous coronary artery bypass grafting and previous stent placement Diabetes mellitus type II Hyperglycemia Hypoglycemia Multiple previous hospital admissions for pneumonia and sepsis Obstructive sleep apnea, Patient reports compliance with CPAP Microcytic hypochromic anemia, etiology unclear, patient was to have colonoscopy 03/2018 but unable to have procedure due to fevers and weakness. 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 Mcgrath, patient declined surgical intervention History of transaminitis, etiology unclear, may be secondary to pancreatic tail neuroendocrine tumor and/or several areas of hypodensity in subcapsular region of both liver lobes, patient follows outpatient with Dr. Mcgrath. Chronic adrenal insufficiency, maintained on Cortef Previous cellulitis with MRSA History of MRSA pneumonia Hyperlipidemia Osteoarthritis Hypothyroidism Obesity: BMI 34.8 Stage 2 pressure ulcer of buttocks, present on admission Hypokalemia secondary to diuresis Hypomagnesemia PLAN: Infectious disease on consult. Appreciate recommendations and input Antibiotics per ID: Currently on vancomycin and cefepime Patient will not require antibiotics at the time of discharge per Dr. Hardin Pulmonary on consult. Appreciate recommendations and input Resume Eliquis Home meds as appropriate Monitor labs GI prophylaxis: Protonix 20 mg by mouth twice a day DVT prophylaxis: ABMIKA hose to bilateral lower extremities Monitor vital signs and address as appropriate Discharge planning: Patient to return home when stable Patient to schedule outpatient testing with Dr. Ramila mariscal Further recommendations pending patient's course Anticipate discharge home tomorrow if patient remains stable Will DC PICC line tomorrow before patient is discharged home Nurse practitioner note has been reviewed by physician. Signing provider agrees with the documented findings, assessment, and plan of care.
--- NOTE | 2018-06-12 15:02 | P.PN ---
Subjective Progress Note Date: 06/12/18 Principal diagnosis: Large to moderate left pleural effusion, Bilateral pneumonia, bilateral pleural effusion, acute exacerbation of acute on chronic systolic heart failure, chronic atrial fibrillation, recent gram-negative and MRSA related pneumonia, acute on chronic hypoxic respiratory failure, severe degree of obstructive sleep apnea on BiPAP, 06/12/2018, patient seen eval examined during the rounds clinically doing better about 500 mL of serous fluid has been removed by interventional radiology fluid has been sent for testing as well as cytology results are pending post procedure chest x-ray reviewed ultrasound of the chest reviewed as well 06/11/2018, patient seen eval examined during the rounds clinically has been doing well breathing comfortably denies any chest pain patient the anticoagulation is on hold for anticipated left thoracentesis tomorrow by interventional radiology I have discussed with the patient at length about the procedure complication alternating when side effects he would like he to proceed with the procedure 06/10/2018, patient seen eval examined during the rounds the computed tomography scan of the chest is reviewed no dismayed of the right lower lobe nodularity Petrin and infiltrate, noted moderate to large pleural effusion on the left side will consult interventional radiology for left thoracentesis, patient has been on anticoagulation with Eliquis, the last does receive earlier this morning we'll stop it and give a period of 24-48 hours to be out of the system and the thoracentesis to be performed June 12 by interventional radiology consult order entered, labs and cytology entered as well 06/09/2018, patient seen eval examined during the rounds clinically patient is slightly better more awake and alert fever Petrin Has improved he did not spike a fever patient is on broad-spectrum antibiotics with IV vancomycin and cephapirin tolerating relatively better, is improved labs reviewed medications reviewed computed tomography scan of the chest is pending 57-year-old male who was seen evaluated examined on 6 floor this patient has been admitted into the hospital with a spiking fever and confusion and sleepiness related to that he does have chronic cough and shortness of breath however not much change from the baseline patient does have some component of dyspnea on exertion he is on supplemental oxygen 2 L, patient has been recently hospitalized for MRSA pneumonia and gram-negative pneumonia has been treated with long-term antibiotics ID service has been following, patient one day prior to admitting the hospital developed a spiking fever of 103 which was somewhat paroxysmal fever lasted causes some confusion as well however as per patient cough and shortness breath was not much different from baseline and has not been significantly changed patient was seen eval reexamined the emergency by subsequently admitted to the hospital where he was seen evaluated examined him on specific questioning denies any seizure-like activity loss of consciousness) , denies any chest pain or radiation of pain denies any fever or night sweats or chills except recent episode does have chronic shortness of breath chronic cough associated with thick sputum however not much change from baseline denies any bowel or bladder related problems does have chronic edema of the lower extremity which is not much change from baseline, patient does have sleep disorder breathing and sleep apnea has been on CPAP machine at home in addition patient also has a PICC line for which she is getting antibiotics on outpatient setting Objective - Vital Signs Vital signs: Vital Signs Temp 97.8 F 06/12/18 08:00 Pulse 60 06/12/18 13:33 Resp 20 06/12/18 12:18 BP 148/68 06/12/18 12:18 Pulse Ox 93 L 06/12/18 12:00 Intake & Output 06/11/18 06/12/18 06/12/18 18:59 06:59 18:59 Intake Total 40 260 Output Total 450 450 Balance -450 40 -190 Weight 87.8 kg Intake: IV 40 Sodium Chloride 0.9% 1, 40 000 ml @ 20 mls/hr IV . Q24H [facility] Rx#:[id number] Intake, IV Titration 20 Amount Sodium Chloride 0.9% 1, 20 000 ml @ 20 mls/hr IV . Q24H [facility] Rx#:[id number] Oral 240 Output: Urine 450 450 Other: Voiding Method Urinal Toilet # Voids 1 1 1 - Exam Constitutional General appearance: average body habitus, disheveled, no acute distress, obese - EENT Eyes: EOMI, PERRLA, normal appearance ENT: normal oropharynx Ears: bilateral: normal - Neck Neck: normal ROM Carotids: bilateral: upstroke normal, bruit absent Thyroid: bilateral: normal size - Respiratory Respiratory: bilateral: diminished (At the bases) more so on the left side compared to right side, wheezing (Bilateral on forced expiration), negative: rales, rhonchi - Cardiovascular Rhythm: regular Heart sounds: normal: S1, S2 - Gastrointestinal General gastrointestinal: normal bowel sounds, soft - Integumentary Integumentary: normal, normal turgor - Neurologic Neurologic: CNII-XII intact - Musculoskeletal Musculoskeletal: gait normal, generalized weakness, strength equal bilaterally - Psychiatric Psychiatric: A&O x's 3, appropriate affect, intact judgment & insight - Labs CBC & Chem 7: 06/12/18 08:47 06/12/18 06:27 Labs: Abnormal Lab Results - Last 24 Hours (Table) 06/11/18 06/11/18 06/11/18 Range/Units 05:49 17:09 20:55 Hgb (13.0-17.5) gm/dL Hct (39.0-53.0) % MCV (80.0-100.0) fL MCH (25.0-35.0) pg MCHC (31.0-37.0) g/dL RDW (11.5-15.5) % PT (9.0-12.0) sec INR (<1.2) Chloride (98-107) mmol/L Carbon Dioxide (22-30) mmol/L BUN (9-20) mg/dL Glucose (74-99) mg/dL POC Glucose (mg/dL) 139 H 204 H (75-99) mg/dL Magnesium 1.4 L (1.6-2.3) mg/dL 06/12/18 06/12/18 06/12/18 Range/Units 05:58 06:27 06:27 Hgb 8.8 L (13.0-17.5) gm/dL Hct 32.5 L (39.0-53.0) % MCV 72.1 L (80.0-100.0) fL MCH 19.5 L (25.0-35.0) pg MCHC 27.1 L (31.0-37.0) g/dL RDW 20.4 H (11.5-15.5) % PT (9.0-12.0) sec INR (<1.2) Chloride 97 L (98-107) mmol/L Carbon Dioxide 39 H (22-30) mmol/L BUN 25 H (9-20) mg/dL Glucose 127 H (74-99) mg/dL POC Glucose (mg/dL) 173 H (75-99) mg/dL Magnesium 1.4 L (1.6-2.3) mg/dL 06/12/18 06/12/18 Range/Units 08:47 11:34 Hgb (13.0-17.5) gm/dL Hct (39.0-53.0) % MCV (80.0-100.0) fL MCH (25.0-35.0) pg MCHC (31.0-37.0) g/dL RDW (11.5-15.5) % PT 12.3 H (9.0-12.0) sec INR 1.3 H (<1.2) Chloride (98-107) mmol/L Carbon Dioxide (22-30) mmol/L BUN (9-20) mg/dL Glucose (74-99) mg/dL POC Glucose (mg/dL) 120 H (75-99) mg/dL Magnesium (1.6-2.3) mg/dL Microbiology - Last 24 Hours (Table) 06/09/18 11:45 Gram Stain - Final Sputum Sputum Culture - Final Radha albicans Radha glabrata 06/07/18 21:13 Blood Culture - Preliminary Blood No Growth after 96 hours Assessment and Plan Assessment: Moderate left-sided pleural effusion status post left thoracentesis 500 mL of fluid has been removed Altered mental status related to Sirs-like process related to bilateral pneumonia MRSA pneumonia/gram-negative pneumonia Acute on chronic hypoxic respiratory failure Severe degree of sleep disorder breathing and sleep apnea Small bilateral pleural effusion History of recent pneumonia Chronic systolic heart failure Chronic atrial fibrillation Plan: Broad-spectrum antibiotics Breathing treatments Gentle diuresis Once computed tomography scan of the chest without IV dye done will review it with further recommendations pending Further recommendations pending plan of care as per clinical response of the patient DVT and peptic ulcer disease prophylaxis Can resume Eliquis agree with discharge planning with follow-up on outpatient setting Time with Patient: Greater than 30
[2018-06-12 16:23] LABS: Appearance,BF Hazy; Color,BF Yellow; Nucleated Cells, Body Fluid 60 /uL; RBC, Body Fluid 1550 /uL
[2018-06-12 16:36] LABS: Mononuclear WBC,Body Fluid 86 %; Polynuclear WBC,Body Fluid 14 %; Total Cells Counted,Body Fluid 100
[2018-06-12 16:42] LABS: Glucose,Whole Blood 241 mg/dL (75-99)
[2018-06-12] MEDS ORDERED: VANCOMYCIN TROUGH DUE 1 EACH MISC MISCELLANE ONE (21:00)
[2018-06-12] MEDS: MONTELUKAST 10 MG TAB PO SCH (21:01)
[2018-06-12] MEDS: ATORVASTATIN 80 MG TAB PO SCH (21:02)
[2018-06-12] MEDS: LEVOTHYROXINE 50 MCG TAB PO SCH (21:02)
[2018-06-12] MEDS: APIXABAN 5 MG TAB PO SCH (21:02)
[2018-06-12] MEDS: amLODIPine 5 MG TAB PO SCH (21:02)
[2018-06-12 21:12] LABS: Glucose,Whole Blood 198 mg/dL (75-99)
[2018-06-12 21:48] LABS: Total Protein, Body Fluid 1470 mg/dL
--- NOTE | 2018-06-12 21:49 | P.PN ---
Subjective Progress Note Date: 06/12/18 Pleasant 57-year-old male with multiple recent hospitalizations for discharge on 05/20/2018 for recent bout of E. coli pneumonia found at the time of his bronchoscopy. The patient had been treated as an outpatient levofloxacin E. coli was resistant and as he had marked improvement he was discharged home on intravenous ceftriaxone. The patient however rapidly became ill with fever cough and malaise and constantly was brought back to the emergency center and admitted for worsening pneumonia. Patient gradually improved and was discharged home on 05/27 on Rocephin and vancomycin for 14 days. Patient states he has been receiving his antibiotics as scheduled. He states he has been checking his temperature every evening at about 11:30 PM his been running 99.2 and he has been taking either Tylenol or Motrin but on Saturday evening it was 100 and he took Motrin and following that his temperature went up to 101.2 and he decided to come into [facility] for evaluation. Chest x-ray showed worsening bilateral airspace disease and infectious etiology is favored although pulmonary edema is a consideration. Interval development of bilateral pleural effusions. His temperature maximum 101.7, white count 7.3 with repeat 1.9. Troponins negative on 3 draws. Lactic acid initially 2.3 and repeat 1.9. Patient did receive 2 L of IV fluid and magnesium was replaced. He was started on cefepime and vancomycin by ID. At the time of this evaluation, patient is denying having any cough, sputum production, chest pain or shortness of breath. He denies any abdominal discomfort, loss of appetite, nausea, vomiting or diarrhea. He denies any dysuria. He has a PICC line in his left arm which he denies any pain or tenderness and states it has been functioning fine at home. 06/12/2018 patient is feeling considerably better. Is feeling anxious for is discharged to home. Thoracentesis was performed today with slight improvement of his respiratory changes of shortness of breath. Denies fevers or chills. Objective - Vital Signs Vital signs: Vital Signs Temp 97.7 F 06/12/18 16:02 Pulse 65 06/12/18 20:33 Resp 20 06/12/18 20:33 BP 153/79 06/12/18 16:02 Pulse Ox 98 06/12/18 20:33 Intake & Output 06/12/18 06/12/1818 06:59 18:59 06:59 Intake Total 40 360 Output Total 450 Balance 40 -90 Weight 87.8 kg Intake: IV 40 Sodium Chloride 0.9% 1, 40 000 ml @ 20 mls/hr IV . Q24H [facility] Rx#:[id number] Intake, IV Titration 120 Amount Magnesium Sulfate-D5w Pmx 100 1 gm In Dextrose/Water 1 100ml.bag @ 100 mls/hr IVPB Q1H [facility] Rx#: [id number] Sodium Chloride 0.9% 1, 20 000 ml @ 20 mls/hr IV . Q24H [facility] Rx#:[id number] Oral 240 Output: Urine 450 Other: Voiding Method Toilet # Voids 1 3 - Exam Gen: This is a obese 57-year-old male. Awake and alert to questions appropriately. He does not appear to be in any respiratory distress. HEENT: Head is atraumatic, normocephalic. Pupils equal, round. Sclerae is anicteric. Oral mucous membranes are dry. No thrush noted. Patient is edentulous. NECK: Supple. No JVD. No lymphadenopathy. No thyromegaly. LUNGS: Symmetrical bilateral air entry, basilar crackles bilaterally. HEART: Regular rate and rhythm. No murmur. ABDOMEN: Soft. Bowel sounds are present. No masses. No tenderness. EXTREMITIES: Upper extremities intact, PICC line to the left upper arm with no tenderness, erythema or edema. Lower extremities have minimal edema laterally. NEUROLOGICAL: Awake alert oriented person place and time exhibits no acute gross focal sensory motor deficits - Labs CBC & Chem 7: 06/12/18 08:47 06/12/18 06:27 Labs: Abnormal Lab Results - Last 24 Hours (Table) 06/12/18 06/12/18 06/12/18 Range/Units 05:58 06:27 06:27 Hgb 8.8 L (13.0-17.5) gm/dL Hct 32.5 L (39.0-53.0) % MCV 72.1 L (80.0-100.0) fL MCH 19.5 L (25.0-35.0) pg MCHC 27.1 L (31.0-37.0) g/dL RDW 20.4 H (11.5-15.5) % PT (9.0-12.0) sec INR (<1.2) Chloride 97 L (98-107) mmol/L Carbon Dioxide 39 H (22-30) mmol/L BUN 25 H (9-20) mg/dL Glucose 127 H (74-99) mg/dL POC Glucose (mg/dL) 173 H (75-99) mg/dL Magnesium 1.4 L (1.6-2.3) mg/dL 06/12/18 06/12/18 06/12/18 Range/Units 08:47 11:34 16:35 Hgb (13.0-17.5) gm/dL Hct (39.0-53.0) % MCV (80.0-100.0) fL MCH (25.0-35.0) pg MCHC (31.0-37.0) g/dL RDW (11.5-15.5) % PT 12.3 H (9.0-12.0) sec INR 1.3 H (<1.2) Chloride (98-107) mmol/L Carbon Dioxide (22-30) mmol/L BUN (9-20) mg/dL Glucose (74-99) mg/dL POC Glucose (mg/dL) 120 H 241 H (75-99) mg/dL Magnesium (1.6-2.3) mg/dL 06/12/18 Range/Units 21:10 Hgb (13.0-17.5) gm/dL Hct (39.0-53.0) % MCV (80.0-100.0) fL MCH (25.0-35.0) pg MCHC (31.0-37.0) g/dL RDW (11.5-15.5) % PT (9.0-12.0) sec INR (<1.2) Chloride (98-107) mmol/L Carbon Dioxide (22-30) mmol/L BUN (9-20) mg/dL Glucose (74-99) mg/dL POC Glucose (mg/dL) 198 H (75-99) mg/dL Magnesium (1.6-2.3) mg/dL Microbiology - Last 24 Hours (Table) 06/09/18 11:45 Gram Stain - Final Sputum Sputum Culture - Final Jumana albicans Jumana glabrata 06/07/18 21:13 Blood Culture - Preliminary Blood No Growth after 96 hours Laboratory Results WBC 4.9 k/uL (3.8-10.6) 06/12/18 06:27 RBC 4.50 m/uL (4.30-5.90) 06/12/18 06:27 Hgb 8.8 gm/dL (13.0-17.5) L 06/12/18 06:27 Hct 32.5 % (39.0-53.0) L 06/12/18 06:27 MCV 72.1 fL (80.0-100.0) L 06/12/18 06:27 MCH 19.5 pg (25.0-35.0) L 06/12/18 06:27 MCHC 27.1 g/dL (31.0-37.0) L 06/12/18 06:27 RDW 20.4 % (11.5-15.5) H 06/12/18 06:27 Plt Count 231 k/uL (150-450) 06/12/18 08:47 Neutrophils % [employer] 06/10/18 05:48 Neutrophils % (Manual) 47 % 06/12/18 06:27 Band Neutrophils % 1 % 06/11/18 05:49 Lymphocytes % [employer] 06/10/18 05:48 Lymphocytes % (Manual) 30 % 06/12/18 06:27 Monocytes % [employer] 06/10/18 05:48 Monocytes % (Manual) 17 % 06/12/18 06:27 Eosinophils % [employer] 06/10/18 05:48 Eosinophils % (Manual) 5 % 06/12/18 06:27 Basophils % [employer] 06/10/18 05:48 Basophils % (Manual) 1 % 06/12/18 06:27 Neutrophils # [employer] 06/10/18 05:48 Neutrophils # (Manual) 2.30 k/uL (1.3-7.7) 06/12/18 06:27 Lymphocytes # [employer] 06/10/18 05:48 Lymphocytes # (Manual) 1.47 k/uL (1.0-4.8) 06/12/18 06:27 Monocytes # [employer] 06/10/18 05:48 Monocytes # (Manual) 0.83 k/uL (0-1.0) 06/12/18 06:27 Eosinophils # [employer] 06/10/18 05:48 Eosinophils # (Manual) 0.25 k/uL (0-0.7) 06/12/18 06:27 Basophils # [employer] 06/10/18 05:48 Basophils # (Manual) 0.05 k/uL (0-0.2) 06/12/18 06:27 Nucleated RBCs 0 /100 WBC (0-0) 06/12/18 06:27 Manual Slide Review Performed 06/12/18 06:27 Polychromasia Present 06/09/18 06:15 Hypochromasia Marked 06/12/18 06:27 Poikilocytosis Slight 06/12/18 06:27 Anisocytosis Moderate 06/12/18 06:27 Microcytosis Marked 06/12/18 06:27 Target Cells Present 06/11/18 05:49 Ovalocytes Present 06/09/18 06:15 PT 12.3 sec (9.0-12.0) H 06/12/18 08:47 INR 1.3 (<1.2) H 06/12/18 08:47 APTT 25.0 sec (22.0-30.0) 06/07/18 21:13 Sodium 145 mmol/L (137-145) 06/12/18 06:27 Potassium 3.7 mmol/L (3.5-5.1) 06/12/18 06:27 Chloride 97 mmol/L (98-107) L 06/12/18 06:27 Carbon Dioxide 39 mmol/L (22-30) H 06/12/18 06:27 Anion Gap 9 mmol/L 06/12/18 06:27 BUN 25 mg/dL (9-20) H 06/12/18 06:27 Creatinine 0.94 mg/dL (0.66-1.25) 06/12/18 06:27 Est GFR (CKD-EPI)AfAm >90 (>60 ml/min/1.73 sqM) 06/12/18 06:27 Est GFR (CKD-EPI)NonAf 89 (>60 ml/min/1.73 sqM) 06/12/18 06:27 Glucose 127 mg/dL (74-99) H 06/12/18 06:27 POC Glucose (mg/dL) 198 mg/dL (75-99) H 06/12/18 21:10 POC Glu [employer] Operator Mal Nichols 06/12/18 21:[address] Glu mg/dL 151 06/08/18 07:26 Hemoglobin A1c 6.9 % (4.0-6.0) H 06/08/18 07:26 Lactic Ac Sepsis Rflx Y 06/07/18 21:36 Plasma Lactic Acid Freddy 1.9 mmol/L (0.7-2.0) 06/08/18 04:19 Calcium 8.6 mg/dL (8.4-10.2) 06/12/18 06:27 Magnesium 1.4 mg/dL (1.6-2.3) L 06/12/18 06:27 Total Bilirubin 0.6 mg/dL (0.2-1.3) 06/07/18 21:13 AST 29 U/L (17-59) 06/07/18 21:13 ALT 29 U/L (21-72) 06/07/18 21:13 Alkaline Phosphatase 120 U/L (38-126) 06/07/18 21:13 Total Creatine Kinase 62 U/L (55-170) 06/07/18 21:13 CK-MB (CK-2) 3.2 ng/mL (0.0-2.4) H 06/07/18 21:13 CK-MB (CK-2) Rel Index 5.2 06/07/18 21:13 Troponin I <0.012 ng/mL (0.000-0.034) 06/08/18 09:31 NT-Pro-B Natriuret Pep 6500 pg/mL 06/07/18 21:13 Total Protein 6.2 g/dL (6.3-8.2) L 06/07/18 21:13 Albumin 2.9 g/dL (3.5-5.0) L 06/07/18 21:13 Fluid Source Thoracentesis 06/12/18 15:30 Fluid Color Yellow 06/12/18 15:30 Fluid Appearance Hazy 06/12/18 15:30 Fluid RBC 1550 /uL 06/12/18 15:30 Fluid Nucleated Cells 60 /uL 06/12/18 15:30 Fluid Polynuclear WBCs 14 % 06/12/18 15:30 Fluid Mononuclear WBCs 86 % 06/12/18 15:30 Body Fluid Glucose Source Pleural Fluid 06/12/18 15:30 Fluid Glucose 147 mg/dL 06/12/18 15:30 Body Fluid LDH Source Pleural Fluid 06/12/18 15:30 Fluid LDH 104 U/L 06/12/18 15:30 Vancomycin Trough 20.2 ug/mL 06/12/18 20:45 Microbiology 06/09/18 11:45 Sputum Gram Stain - Final 06/09/18 11:45 Sputum Sputum Culture - Final Jumana albicans Jumana glabrata 06/07/18 21:13 Blood Blood Culture - Preliminary No Growth after 96 hours Assessment and Plan (1) Pleural effusion Narrative/Plan: Pleasant 57-year-old male with multiple recent hospitalizations for discharge on 05/20/2018 for recent bout of E. coli pneumonia found at the time of his bronchoscopy. The patient had been treated as an outpatient levofloxacin E. coli was resistant and as he had marked improvement he was discharged home on intravenous ceftriaxone. The patient however rapidly became ill with fever cough and malaise and constantly was brought back to the emergency center and admitted for worsening pneumonia. Patient gradually improved and was discharged home on 05/27 on Rocephin and vancomycin for 14 days. Patient states he has been receiving his antibiotics as scheduled. He states he has been checking his temperature every evening at about 11:30 PM his been running 99.2 and he has been taking either Tylenol or Motrin but on Saturday evening it was 100 and he took Motrin and following that his temperature went up to 101.2 and he decided to come into [facility] for evaluation. Chest x-ray showed worsening bilateral airspace disease and infectious etiology is favored although pulmonary edema is a consideration. Interval development of bilateral pleural effusions. His temperature maximum 101.7, white count 7.3 with repeat 1.9. Troponins negative on 3 draws. Lactic acid initially 2.3 and repeat 1.9. Patient did receive 2 L of IV fluid and magnesium was replaced. He was started on cefepime and vancomycin by ID. At the time of this evaluation, patient is denying having any cough, sputum production, chest pain or shortness of breath. He denies any abdominal discomfort, loss of appetite, nausea, vomiting or diarrhea. He denies any dysuria. He has a PICC line in his left arm which he denies any pain or tenderness and states it has been functioning fine at home. June 12 2018 patient is feeling better. Thoracentesis is been performed. No further fevers have been noted. There have been no new significant cultures sputum culture had evidence of some oral jumana but no other pathogens have been found. The fever at admission was noted the patient did develop a mild leukopenia which could have actually been from antibiotic therapy of vancomycin. The patient is at the completion of his course of antibiotic therapy for his prior pneumonia. The cefepime and vancomycin will be discontinued with the doses of today. Thoracentesis was performed analysis the fluid should be available and if it is negative is as expected he may then discharged home in the morning. His close follow-up with his physicians from [facility] regarding the ongoing workup for his tumor. Current Visit: Yes Status: Acute Code(s): J90 - PLEURAL EFFUSION, NOT ELSEWHERE CLASSIFIED SNOMED Code(s): 05933306
[2018-06-13] MEDS: IPRATROPIUM-ALBUTEROL 3 ML NEB INHALATION PRN (00:09)
[2018-06-13 06:15] LABS: Glucose,Whole Blood 203 mg/dL (75-99)
[2018-06-13 06:55] LABS: Anion Gap 6 mmol/L; Blood Urea Nitrogen 27 mg/dL (9-20); Calcium 8.5 mg/dL (8.4-10.2); Carbon Dioxide 38 mmol/L (22-30); Chloride 97 mmol/L (98-107); Glucose 183 mg/dL (74-99); Magnesium 1.8 mg/dL (1.6-2.3); Potassium 3.7 mmol/L (3.5-5.1); Sodium 141 mmol/L (137-145)
[2018-06-13] MEDS: INSULIN ASPART 100 UNIT/ML 1 ML 10 ML VIAL SQ SCH ×4 (06:57→12:00)
[2018-06-13] MEDS: SODIUM CHLORIDE 0.9% 1,000 ML IV SCH (06:58)
[2018-06-13 07:03] LABS: Anisocytosis Slight; Basophils # (A) 0.1 k/uL (0-0.2); Basophils % (A) 1 %; Eosinophils # (A) 0.6 k/uL (0-0.7); Eosinophils % (A) 11 %; HCT 31.6 % (39.0-53.0); HGB 8.6 gm/dL (13.0-17.5); Hypochromasia Marked; Lymphocytes # (A) 0.9 k/uL (1.0-4.8); Lymphocytes % (A) 15 %; MCH 19.9 pg (25.0-35.0); MCHC 27.1 g/dL (31.0-37.0); MCV 73.3 fL (80.0-100.0); Microcytosis Marked; Monocytes # (A) 0.6 k/uL (0-1.0); Monocytes % (A) 11 %; Neutrophils # (A) 3.3 k/uL (1.3-7.7); Neutrophils % (A) 59 %; Platelet Count 246 k/uL (150-450); Poikilocytosis Slight; RBC 4.32 m/uL (4.30-5.90); WBC 5.5 k/uL (3.8-10.6)
[2018-06-13] MEDS: CLOTRIMAZOLE/BETAMETH 1-0.05% CREAM 45 GM TUBE TOPICAL SCH (08:16)
[2018-06-13] MEDS: CEFEPIME 2 GM in SODIUM CHLORIDE 0.9% 50 ML IVPB SCH (08:24)
[2018-06-13] MEDS: GABAPENTIN 400 MG CAP PO SCH (08:24)
[2018-06-13] MEDS: DULoxetine HCL 30 MG CAPSULE.DR PO SCH (08:24)
[2018-06-13] MEDS: VIT A,C & E-LUTEIN-MINERALS 1 EACH TAB PO SCH (08:24)
[2018-06-13] MEDS: POTASSIUM CHLORIDE ER 20 MEQ TAB.ER PO SCH (08:25)
[2018-06-13] MEDS: APIXABAN 5 MG TAB PO SCH (08:25)
[2018-06-13] MEDS: METOPROLOL TARTRATE 25 MG TAB PO SCH (08:25)
[2018-06-13] MEDS: PANTOPRAZOLE 40 MG TABLET PO SCH (08:25)
[2018-06-13] MEDS: ETODOLAC 400 MG TAB PO SCH (08:25)
[2018-06-13] MEDS: HYDROCORTISONE 20 MG TAB PO SCH (08:25)
[2018-06-13] MEDS: FUROSEMIDE 20 MG TAB PO SCH (08:25)
[2018-06-13] MEDS: LISINOPRIL 5 MG TAB PO SCH (08:25)
[2018-06-13] MEDS: LORATADINE 10 MG TAB PO SCH (08:29)
[2018-06-13] MEDS: INSULIN DETEMIR 100 UNIT/ML 10 ML VIAL SQ SCH (08:34)
[2018-06-13 08:48] VITALS: BP 165/77; RESP 18; TEMP 97.9
[2018-06-13] MEDS: IPRATROPIUM-ALBUTEROL 3 ML NEB INHALATION SCH (09:08)
[2018-06-13 09:10] VITALS: PULSE 64
--- NOTE | 2018-06-13 09:57 | P.DS ---
Providers Date of admission: 06/08/18 00:01 Expected date of discharge: 06/13/18 Attending physician: Bautista Romero Consults: 06/08/18 00:01 Consult Physician Routine Consulting Provider: Ag Morton Consult Reason/Comments: Dyspnea and pneumonia, CHF Do you want consulting provider notified?: Yes Consult Physician Routine Consulting Provider: Bran Hardin Consult Reason/Comments: Pneumonia, dyspnea Do you want consulting provider notified?: Yes 06/10/18 13:57 Consult Physician Routine Consulting Provider: Torrey Portillo Consult Reason/Comments: left pleural effusion, left thoracentesis on 06/12, Eliquis stop 06/10 Do you want consulting provider notified?: Yes Primary care physician: Bautista Romero Hospital Course: 57-year-old male who presented to the emergency room due to fever. The patient has had numerous hospitalizations due to sepsis, recurrent pneumonia , and lactic acidosis. Chest x-ray was completed in the emergency room revealing bilateral pneumonia. He was admitted to the hospital and consultations were placed to pulmonary and infectious disease. The patient was receiving vancomycin and cefepime during hospitalization. He was evaluated by pulmonary during hospitalization and found to have pleural effusions left greater than right. He underwent a left thoracentesis on 06/12/2018 with removal of 500 mL of serous fluid. Fluid was sent to pathology for analysis and is currently pending results. Blood cultures are negative at 120 hours. Sputum cultures positive for Jumana albicans. His respiratory status is back to his baseline. He denies shortness of breath, cough, or congestion. He has been afebrile. His vital signs have been stable. Dr. Hardin stated the patient does not require antibiotics at the time of discharge. His PICC line will be removed today before discharge home. He is to follow-up with Dr. Romero in all consulting providers. His potassium was low during hospitalization and his potassium supplement was increased to twice a day. A new prescription for potassium twice a day was sent to the patient's preferred pharmacy. DISCHARGE DIAGNOSIS: Bilateral pneumonia SIRS, present on admission, with underlying infectious etiology of bilateral pneumonia Bilateral pleural effusions, left larger than right, status post left thoracentesis 06/12/2018 with removal of 500 mL Acute on chronic systolic congestive heart failure, EF 35-40% Recent hospitalization for pneumonia, 05/22/2018-05/27/2018, sputum positive for MRSA, discharged home on vancomycin and Rocephin Recent hospitalization for right infrahilar pneumonia, 05/12/18-05/20/18, sputum culture positive for E. coli, s/p bronch with BAL, culture positive for jumana , discharged home on 14 day course of Rocephin Recent hospitalization for right lower lobe pneumonia 04/29/2018-05/05/2018, discharged home on 7 day course of Levaquin Recent hospitalization for sepsis and pneumonia, discharged 04/16/2018 on 10 day regimen of Vancomycin Paroxysmal atrial fibrillation, maintained on long-term anticoagulation with Eliquis Coronary artery disease with previous coronary artery bypass grafting and previous stent placement Diabetes mellitus type II Hyperglycemia Hypoglycemia Multiple previous hospital admissions for pneumonia and sepsis Obstructive sleep apnea, Patient reports compliance with CPAP Microcytic hypochromic anemia, etiology unclear, patient was to have colonoscopy 03/2018 but unable to have procedure due to fevers and weakness. 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 Mcgrath, patient declined surgical intervention History of transaminitis, etiology unclear, may be secondary to pancreatic tail neuroendocrine tumor and/or several areas of hypodensity in subcapsular region of both liver lobes, patient follows outpatient with Dr. Mcgrath. Chronic adrenal insufficiency, maintained on Cortef Previous cellulitis with MRSA History of MRSA pneumonia Hyperlipidemia Osteoarthritis Hypothyroidism Obesity: BMI 34.8 Stage 2 pressure ulcer of buttocks, present on admission Hypokalemia secondary to diuresis Hypomagnesemia Nurse practitioner note has been reviewed by physician. Signing provider agrees with the documented findings, assessment, and plan of care. Patient Condition at Discharge: Stable Plan - Discharge Summary Discharge Rx Participant: No New Discharge Prescriptions: New Potassium Chloride ER [K-Dur 20] 20 meq PO BID #60 tab Continue Levothyroxine Sodium [Synthroid] 50 mcg PO HS Omeprazole [PriLOSEC] 20 mg PO BID Nitroglycerin Sl Tabs [Nitrostat] 0.4 mg SUBLINGUAL Q5M PRN PRN Reason: Chest Pain Furosemide [Lasix] 20 mg PO BID amLODIPine [Norvasc] 5 mg PO HS Gabapentin [Neurontin] 800 mg PO QID fentaNYL 25MCG/HR PATCH [Duragesic 25MCG/HR] 1 patch TRANSDERM Q72H HYDROcodone/APAP 10-325MG [Payette 10-325] 1 tab PO Q4HR PRN PRN Reason: Pain Montelukast [Singulair] 10 mg PO HS #30 tab Insulin Aspart [NovoLOG Flexpen] See Protocol SQ ACHS Multivit-Min/FA/Lycopen/Lutein [Centrum Silver Tablet] 1 tab PO DAILY DULoxetine HCL [Cymbalta] 30 mg PO DAILY Insulin Glargine [Lantus] 32 unit SQ BID Etodolac [Lodine] 400 mg PO BID Atorvastatin [Lipitor] 80 mg PO HS Apixaban [Eliquis] 5 mg PO BID #60 tab Metoprolol Tartrate [Lopressor] 25 mg PO BID #60 tab Lisinopril [Zestril] 5 mg PO QAM Hydrocortisone [Cortef] 20 mg PO QAM Loratadine [Claritin] 10 mg PO DAILY #30 tab Discontinued Potassium Chloride ER [K-Dur 20] 20 meq PO DAILY #30 tab cefTRIAXone [Rocephin] 2,000 mg IVPB Q24HR #14 vial Vancomycin 1,500 mg IVPB Q24HR #14 bag Discharge Medication List Levothyroxine Sodium [Synthroid] 50 mcg PO HS 02/01/14 [History] Nitroglycerin Sl Tabs [Nitrostat] 0.4 mg SUBLINGUAL Q5M PRN 02/01/14 [History] Omeprazole [PriLOSEC] 20 mg PO BID 02/01/14 [History] Furosemide [Lasix] 20 mg PO BID 05/13/15 [History] Gabapentin [Neurontin] 800 mg PO QID 05/13/15 [History] amLODIPine [Norvasc] 5 mg PO HS 05/13/15 [History] HYDROcodone/APAP 10-325MG [Payette 10-325] 1 tab PO Q4HR PRN 07/17/16 [History] fentaNYL 25MCG/HR PATCH [Duragesic 25MCG/HR] 1 patch TRANSDERM Q72H 07/17/16 [ History] Montelukast [Singulair] 10 mg PO HS #30 tab 11/21/16 [Rx] Insulin Aspart [NovoLOG Flexpen] See Protocol SQ ACHS 02/10/17 [History] Multivit-Min/FA/Lycopen/Lutein [Centrum Silver Tablet] 1 tab PO DAILY 05/28/17 [ History] DULoxetine HCL [Cymbalta] 30 mg PO DAILY 09/25/17 [History] Etodolac [Lodine] 400 mg PO BID 09/25/17 [History] Insulin Glargine [Lantus] 32 unit SQ BID 09/25/17 [History] Atorvastatin [Lipitor] 80 mg PO HS 02/05/18 [History] Apixaban [Eliquis] 5 mg PO BID #60 tab 02/13/18 [Rx] Metoprolol Tartrate [Lopressor] 25 mg PO BID #60 tab 02/13/18 [Rx] Hydrocortisone [Cortef] 20 mg PO QAM 04/07/18 [History] Lisinopril [Zestril] 5 mg PO QAM 04/07/18 [History] Loratadine [Claritin] 10 mg PO DAILY #30 tab 05/05/18 [Rx] Potassium Chloride ER [K-Dur 20] 20 meq PO BID #60 tab 06/13/18 [Rx] Follow up Appointment(s)/Referral(s): Bran Hardin MD [STAFF PHYSICIAN] - 1 Week Bautista Romero MD [Primary Care Provider] - 06/16/18 12:30 pm (Saturday) [facility],Nurse [NON-STAFF] - 1-2 Days (Home care will call you to set up schedual, if you have questions or not hear from them; please contact agency. ) Ag Morton MD [STAFF PHYSICIAN] - 2 Weeks Patient Instructions/Handouts: Heart Failure (DC), Pulmonary Edema (DC), Heart Healthy Diet (DC), Hypomagnesemia (DC) Activity/Diet/Wound Care/Special Instructions: DISCONTINUE LEFT ARM PICC BEFORE DISCHARGE Discharge Disposition: HOME SELF-CARE
[2018-06-13 11:23] VITALS: BMI 31.4
[2018-06-13 11:42] LABS: Glucose,Whole Blood 185 mg/dL (75-99)
--- NOTE | 2018-06-14 17:47 | P.PN ---
Subjective Progress Note Date: 06/13/18 (late entry note) Principal diagnosis: Large to moderate left pleural effusion, Bilateral pneumonia, bilateral pleural effusion, acute exacerbation of acute on chronic systolic heart failure, chronic atrial fibrillation, recent gram-negative and MRSA related pneumonia, acute on chronic hypoxic respiratory failure, severe degree of obstructive sleep apnea on BiPAP, 06/13/2018, patient was seen evaluated examined in the morning rounds clinically patient has been doing well labs reviewed medications reviewed, pleural fluid microbiology is negative no organism has been seen no growth so far pleural fluid cytology pending, biochemistry suggestive of transudative effusion 06/12/2018, patient seen eval examined during the rounds clinically doing better about 500 mL of serous fluid has been removed by interventional radiology fluid has been sent for testing as well as cytology results are pending post procedure chest x-ray reviewed ultrasound of the chest reviewed as well 06/11/2018, patient seen eval examined during the rounds clinically has been doing well breathing comfortably denies any chest pain patient the anticoagulation is on hold for anticipated left thoracentesis tomorrow by interventional radiology I have discussed with the patient at length about the procedure complication alternating when side effects he would like he to proceed with the procedure 06/10/2018, patient seen eval examined during the rounds the computed tomography scan of the chest is reviewed no dismayed of the right lower lobe nodularity Petrin and infiltrate, noted moderate to large pleural effusion on the left side will consult interventional radiology for left thoracentesis, patient has been on anticoagulation with Eliquis, the last does receive earlier this morning we'll stop it and give a period of 24-48 hours to be out of the system and the thoracentesis to be performed June 12 by interventional radiology consult order entered, labs and cytology entered as well 06/09/2018, patient seen eval examined during the rounds clinically patient is slightly better more awake and alert fever Petrin Has improved he did not spike a fever patient is on broad-spectrum antibiotics with IV vancomycin and cephapirin tolerating relatively better, is improved labs reviewed medications reviewed computed tomography scan of the chest is pending 57-year-old male who was seen evaluated examined on 6 floor this patient has been admitted into the hospital with a spiking fever and confusion and sleepiness related to that he does have chronic cough and shortness of breath however not much change from the baseline patient does have some component of dyspnea on exertion he is on supplemental oxygen 2 L, patient has been recently hospitalized for MRSA pneumonia and gram-negative pneumonia has been treated with long-term antibiotics ID service has been following, patient one day prior to admitting the hospital developed a spiking fever of 103 which was somewhat paroxysmal fever lasted causes some confusion as well however as per patient cough and shortness breath was not much different from baseline and has not been significantly changed patient was seen eval reexamined the emergency by subsequently admitted to the hospital where he was seen evaluated examined him on specific questioning denies any seizure-like activity loss of consciousness) , denies any chest pain or radiation of pain denies any fever or night sweats or chills except recent episode does have chronic shortness of breath chronic cough associated with thick sputum however not much change from baseline denies any bowel or bladder related problems does have chronic edema of the lower extremity which is not much change from baseline, patient does have sleep disorder breathing and sleep apnea has been on CPAP machine at home in addition patient also has a PICC line for which she is getting antibiotics on outpatient setting Objective - Vital Signs Vital signs: Vital Signs Temp 97.9 F 06/13/18 08:00 Pulse 64 06/13/18 09:21 Resp 18 06/13/18 08:00 BP 165/77 06/13/18 08:00 Pulse Ox 99 06/13/18 08:00 Intake & Output 06/13/18 06/14/18 06/14/18 18:59 06:59 18:59 Intake Total 220 Balance 220 Weight 85.5 kg Intake: Oral 220 - Exam Constitutional General appearance: average body habitus, disheveled, no acute distress, obese - EENT Eyes: EOMI, PERRLA, normal appearance ENT: normal oropharynx Ears: bilateral: normal - Neck Neck: normal ROM Carotids: bilateral: upstroke normal, bruit absent Thyroid: bilateral: normal size - Respiratory Respiratory: bilateral: diminished (At the bases) more so on the left side compared to right side, wheezing (Bilateral on forced expiration), negative: rales, rhonchi - Cardiovascular Rhythm: regular Heart sounds: normal: S1, S2 - Gastrointestinal General gastrointestinal: normal bowel sounds, soft - Integumentary Integumentary: normal, normal turgor - Neurologic Neurologic: CNII-XII intact - Musculoskeletal Musculoskeletal: gait normal, generalized weakness, strength equal bilaterally - Psychiatric Psychiatric: A&O x's 3, appropriate affect, intact judgment & insight - Labs CBC & Chem 7: 06/13/18 06:18 06/13/18 06:18 Labs: Microbiology - Last 24 Hours (Table) 06/07/18 21:13 Blood Culture - Final Blood No Growth after 144 hours 06/12/18 15:30 Gram Stain - Preliminary Pleural Fluid Body Fluid Culture - Preliminary 06/12/18 15:30 Acid Fast Bacilli Smear - Final Lung - Left Acid Fast Bacilli Culture - Preliminary Assessment and Plan Assessment: Moderate left-sided pleural effusion status post left thoracentesis 500 mL of fluid has been removed, biochemistry suggestive of transudative effusion, cultures have been negative so far, fluid appears to be dried likely related to congestive heart failure likely acute on chronic systolic heart failure with component of diastolic heart failure Altered mental status related to Sirs-like process related to bilateral pneumonia MRSA pneumonia/gram-negative pneumonia Acute on chronic hypoxic respiratory failure Severe degree of sleep disorder breathing and sleep apnea Small bilateral pleural effusion History of recent pneumonia Chronic systolic heart failure Chronic atrial fibrillation Plan: Broad-spectrum antibiotics Breathing treatments Gentle diuresis Once computed tomography scan of the chest without IV dye done will review it with further recommendations pending Further recommendations pending plan of care as per clinical response of the patient DVT and peptic ulcer disease prophylaxis Maintained on Eliquis agree with discharge planning with follow-up on outpatient setting
== END 2018-06-13 12:46 | disposition home health service (06) | DRG 177 ==
LOC: EC 20:48 → 6SEL 06-08 00:01
PROVIDERS: ADMIT Family Medicine; ATTEND Family Medicine
PROC: 0W9B3ZZ Drainage of Left Pleural Cavity, Percutaneous Approach (ICD-10-PCS; principal; 2018-06-12)
DX: J15.212 Pneumonia due to Methicillin resistant Staphylococcus aureus (principal); I50.23 Acute on chronic systolic (congestive) heart failure; J96.21 Acute and chronic respiratory failure with hypoxia; E27.40 Unspecified adrenocortical insufficiency; D50.9 Iron deficiency anemia, unspecified; D72.819 Decreased white blood cell count, unspecified; E03.9 Hypothyroidism, unspecified; E11.22 Type 2 diabetes mellitus with diabetic chronic kidney disease; E11.65 Type 2 diabetes mellitus with hyperglycemia; E66.9 Obesity, unspecified; E78.5 Hyperlipidemia, unspecified; E83.42 Hypomagnesemia; E87.6 Hypokalemia; G47.33 Obstructive sleep apnea (adult) (pediatric); I25.10 Atherosclerotic heart disease of native coronary artery without angina pectoris; I48.2 Chronic atrial fibrillation; I25.2 Old myocardial infarction; J98.01 Acute bronchospasm; L89.302 Pressure ulcer of unspecified buttock, stage 2; M19.90 Unspecified osteoarthritis, unspecified site; N18.9 Chronic kidney disease, unspecified; T50.2X5A Adverse effect of carbonic-anhydrase inhibitors, benzothiadiazides and other diuretics, initial encounter; Z68.34 Body mass index [BMI] 34.0-34.9, adult; Z79.01 Long term (current) use of anticoagulants; Z79.2 Long term (current) use of antibiotics; Z79.4 Long term (current) use of insulin; Z79.899 Other long term (current) drug therapy; Z80.1 Family history of malignant neoplasm of trachea, bronchus and lung; Z80.3 Family history of malignant neoplasm of breast; Z82.49 Family history of ischemic heart disease and other diseases of the circulatory system; Z83.3 Family history of diabetes mellitus; Z85.828 Personal history of other malignant neoplasm of skin; Z86.14 Personal history of Methicillin resistant Staphylococcus aureus infection; Z87.01 Personal history of pneumonia (recurrent); Z87.891 Personal history of nicotine dependence; Z95.1 Presence of aortocoronary bypass graft; Z96.641 Presence of right artificial hip joint; D3A.8 Other benign neuroendocrine tumors; R74.0 Nonspecific elevation of levels of transaminase and lactic acid dehydrogenase [LDH]; Z99.89 Dependence on other enabling machines and devices
CPT/HCPCS: 32555; 36415; 71045; 71046; 71250; 80048; 80053; 80202; 82550; 82553; 82945; 83036; 83605; 83615; 83735; 83880; 84157; 84484; 85025; 85049; 85610; 85730; 87040; 87070; 87102; 87116; 87205; 87206; 89050; 93005; 94640; 94760; 96361; 96365; 96375; 99285

== ENCOUNTER 2018-06-30 15:02 | Inpatient (IN) | payer MEDICARE ==
[2018-06-30] MEDS ORDERED: SODIUM CHLORIDE 0.9% 1,000 ML IV STA (15:54)
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
[2018-06-30 16:47] LABS: Anisocytosis Slight; Basophils # (A) 0.1 k/uL (0-0.2); Basophils % (A) 0 %; Eosinophils # (A) 0.3 k/uL (0-0.7); Eosinophils % (A) 2 %; HCT 29.5 % (39.0-53.0); HGB 8.3 gm/dL (13.0-17.5); Hypochromasia Marked; Lymphocytes # (A) 1.1 k/uL (1.0-4.8); Lymphocytes % (A) 10 %; MCH 19.7 pg (25.0-35.0); MCHC 28.1 g/dL (31.0-37.0); MCV 70.2 fL (80.0-100.0); Mean Platelet Volume 6.8; Microcytosis Marked; Monocytes # (A) 0.5 k/uL (0-1.0); Monocytes % (A) 5 %; Neutrophils # (A) 8.8 k/uL (1.3-7.7); Neutrophils % (A) 80 %; Platelet Count 229 k/uL (150-450); Poikilocytosis Slight; RDW 18.6 % (11.5-15.5)
[2018-06-30 16:50] LABS: Albumin 3.4 g/dL (3.5-5.0); Calcium 8.9 mg/dL (8.4-10.2); Potassium 5.3 mmol/L (3.5-5.1); Total Bilirubin 0.7 mg/dL (0.2-1.3); Total Protein 6.6 g/dL (6.3-8.2)
[2018-06-30 16:53] LABS: Creatine Kinase 644 U/L (55-170)
[2018-06-30 16:56] LABS: INR 1.1 (<1.2); Partial Thromboplastin Time 24.1 sec (22.0-30.0); Prothrombin Time 10.3 sec (9.0-12.0)
[2018-06-30 17:06] LABS: Troponin I <0.012 ng/mL (0.000-0.034)
--- NOTE | 2018-06-30 17:39 | XR ---
EXAMINATION: XR chest 2V DATE AND TIME: 06/30/2018 5:07 PM CLINICAL INDICATION: Dizziness TECHNIQUE: PA and lateral COMPARISON: 06/12/2019 FINDINGS: The lungs are predominantly clear and well expanded. However, on the right are scattered ill-defined added opacities in the mid and lower lung zone, not seen on the prior study. These findings are mild in degree but can correlate with a clinical diagnosis of early developing bronchopneumonia. Six-week follow-up chest radiographs can be used to prove resolution of the findings. The pleural spaces are negative. Sternal sutures and mediastinal clips noted. Moderately enlarged cardiac silhouette redemonstrated. T he cardiac silhouette is not enlarged. The remainder of the mediastinal silhouette is unremarkable. The skeletal structures and soft tissues are negative for acute findings. IMPRESSION: Mild radiographic findings which could correlate with a clinical diagnosis of developing right-sided pneumonia.
[2018-06-30] MEDS ORDERED: SODIUM CHLORIDE 0.9% 1,000 ML IV ONE (18:25)
[2018-06-30] MEDS ORDERED: ONDANSETRON 4 MG/2 ML VIAL IVP PRN (18:25)
[2018-06-30] MEDS ORDERED: NALOXONE 0.4 MG/ML 1 ML VIAL IV PRN (18:25)
[2018-06-30 21:48] LABS: Glucose,Whole Blood 82 mg/dL (75-99)
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
[2018-07-01 11:28] LABS: Albumin 3.2 g/dL (3.5-5.0); Calcium 8.7 mg/dL (8.4-10.2); Potassium 4.7 mmol/L (3.5-5.1); Total Bilirubin 0.8 mg/dL (0.2-1.3); Total Protein 6.4 g/dL (6.3-8.2)
[2018-07-01 11:40] LABS: Anisocytosis Slight; HCT 29.4 % (39.0-53.0); HGB 8.2 gm/dL (13.0-17.5); Hypochromasia Marked; MCH 19.8 pg (25.0-35.0); MCHC 28.1 g/dL (31.0-37.0); MCV 70.6 fL (80.0-100.0); Mean Platelet Volume 7.4; Microcytosis Marked; Platelet Count 175 k/uL (150-450); Poikilocytosis Slight; RBC 4.16 m/uL (4.30-5.90); WBC 9.4 k/uL (3.8-10.6)
[2018-07-01 11:59] LABS: Glucose,Whole Blood 70 mg/dL (75-99)
[2018-07-01 12:34] LABS: Eosinophils # (M) 0.38 k/uL (0-0.7); Lymphocytes # (M) 0.38 k/uL (1.0-4.8); Monocytes # (M) 1.13 k/uL (0-1.0); Neutrophils # (M) 7.52 k/uL (1.3-7.7); Neutrophils % (M) 80 %; Nucleated Red Blood Cells 0 /100 WBC (0-0); Total Cells Counted 100
[2018-07-01 12:35] LABS: Ovalocytes Present; Target Cells Present
[2018-07-01] MEDS ORDERED: NITROGLYCERIN SL TABS 0.4 MG TAB SUBLINGUAL PRN (13:19)
[2018-07-01] MEDS: LORATADINE 10 MG TAB PO SCH (13:55)
[2018-07-01] MEDS: DULoxetine HCL 30 MG CAPSULE.DR PO SCH (13:55)
[2018-07-01] MEDS: APIXABAN 5 MG TAB PO SCH (13:55)
[2018-07-01 14:20] LABS: Appearance,Urine Clear (Clear); Bilirubin,Urine 1+ (Negative); Blood,Urine Negative (Negative); Color,Urine Yellow; Glucose,Urine (UA) Negative (Negative); Ketones,Urine Trace (Negative); Leukocyte Esterase,Urine Negative (Negative); Nitrite,Urine Negative (Negative); Protein,Urine Trace (Negative); Specific Gravity,Urine 1.014 (1.001-1.035); Urobilinogen,Urine <2.0 mg/dL (<2.0)
[2018-07-01] MEDS: ACETAMINOPHEN TAB 325 MG TAB PO PRN ×2 (14:40→22:49)
[2018-07-01] MEDS: FUROSEMIDE 20 MG TAB PO SCH (15:38)
[2018-07-01] MEDS: SODIUM CHLORIDE 0.9% 1,000 ML IV SCH (15:39)
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
[2018-07-01 17:18] LABS: Glucose,Whole Blood 125 mg/dL (75-99)
[2018-07-01] MEDS: INSULIN ASPART 100 UNIT/ML 1 ML 10 ML VIAL SQ SCH ×2 (17:45→22:46)
[2018-07-01] MEDS: GABAPENTIN 400 MG CAP PO SCH ×2 (18:07→22:45)
[2018-07-01] MEDS ORDERED: IBUPROFEN 800 MG TAB PO STA (18:18)
[2018-07-01 21:08] LABS: Glucose,Whole Blood 109 mg/dL (75-99)
[2018-07-01 22:18] LABS: Hemoglobin A1C 7.6 % (4.0-6.0)
[2018-07-01] MEDS: amLODIPine 5 MG TAB PO SCH (22:45)
[2018-07-01] MEDS: METOPROLOL TARTRATE 25 MG TAB PO SCH (22:45)
[2018-07-01] MEDS: ETODOLAC 400 MG TAB PO SCH (22:45)
[2018-07-01] MEDS: ATORVASTATIN 80 MG TAB PO SCH (22:45)
[2018-07-01] MEDS: MONTELUKAST 10 MG TAB PO SCH (22:45)
[2018-07-01] MEDS: LEVOTHYROXINE 50 MCG TAB PO SCH (22:46)
[2018-07-02] MEDS: APIXABAN 5 MG TAB PO SCH ×3 (00:07→21:33)
[2018-07-02] MEDS: SODIUM CHLORIDE 0.9% 1,000 ML IV SCH ×2 (03:28→18:15)
[2018-07-02 06:41] LABS: Glucose,Whole Blood 136 mg/dL (75-99)
[2018-07-02] MEDS: LORATADINE 10 MG TAB PO SCH (07:25)
[2018-07-02] MEDS: METOPROLOL TARTRATE 25 MG TAB PO SCH ×2 (07:25→21:33)
[2018-07-02] MEDS: FUROSEMIDE 20 MG TAB PO SCH ×2 (07:25→14:59)
[2018-07-02] MEDS: LEVOFLOXACIN 750 MG TAB PO SCH (07:25)
[2018-07-02] MEDS: LISINOPRIL 5 MG TAB PO SCH (07:25)
[2018-07-02] MEDS: ETODOLAC 400 MG TAB PO SCH ×2 (07:25→21:33)
[2018-07-02] MEDS: HYDROCORTISONE 20 MG TAB PO SCH (07:25)
[2018-07-02] MEDS: GABAPENTIN 400 MG CAP PO SCH ×4 (07:25→23:42)
[2018-07-02] MEDS: DULoxetine HCL 30 MG CAPSULE.DR PO SCH (07:26)
[2018-07-02] MEDS: PANTOPRAZOLE 40 MG TABLET PO SCH (07:26)
[2018-07-02] MEDS: INSULIN ASPART 100 UNIT/ML 1 ML 10 ML VIAL SQ SCH ×4 (07:26→23:42)
--- NOTE | 2018-07-02 07:35 | CONS ---
CONSULTATION DATE OF SERVICE: 07/01/2018 REASON FOR CONSULTATION: Fever. HISTORY OF PRESENT ILLNESS: The patient is a 57-year-old male who was sent to the ER from the pulmonary office for possible syncopal episode. Apparently the patient was in the hallway going to his doctor's office when the patient became dizzy, lightheaded and fell down. The patient may have tripped on something. Because of dizziness and weakness, the patient has been sent to the ER for further evaluation . On arrival to the ER, the patient has been afebrile and he did remain afebrile last night. The patient did have mildly elevated white count of 11,000. His electrolytes were normal. Liver enzymes were mildly elevated and UA was negative. This afternoon, the patient started spiking a fever of 103 degrees Fahrenheit for which Infectious Disease was consulted. The patient has been feeling weak and congested. The patient also had a cough but not bringing up sputum. No chest pain. Denies having any nausea. Did have no vomiting or choking on food and no diarrhea. Patient's chest x-ray was suspicious for developing right lower lobe pneumonia. The patient had been started on Rocephin and Infectious Disease was consulted for further recommendation regarding antibiotic therapy. REVIEW OF SYSTEMS: CONSTITUTIONAL: Positive for weakness along with the fever. EYES: No complaint. ENT: As per HPI. RESPIRATORY: As per HPI. CARDIOVASCULAR: No complaint. GENITOURINARY: No complaint. GASTROINTESTINAL: No complaint. MUSCULOSKELETAL: No complaint. INTEGUMENTARY: No complaint. PSYCHOLOGICAL: No complaint. ENDOCRINE: No complaint. NEUROLOGICAL: As per HPI. PAST MEDICAL HISTORY: Diabetes mellitus, heart failure, atrial fibrillation, sleep apnea, [place], shingles and previous history of MRSA infection. PAST SURGICAL HISTORY: Cholecystectomy, coronary artery bypass grafting, heart catheterization with stent, hernia repair, joint replacement, tonsillectomy, coronary artery bypass grafting. SOCIAL HISTORY: Remote history of smoking. No drinking or drug use. FAMILY HISTORY: Mother with history of breast cancer and hypertension. Father history of pulmonary fibrosis and brain aneurysm along with lung cancer. ALLERGIES: Allergies to OXYCODONE. MEDICATIONS: Medications include the patient is currently on Tylenol, [place], Norvasc, Eliquis, Lipitor, ceftriaxone 1 gram daily, Cymbalta, etodolac, Lasix, Neurontin, Cortef, NovoLog, Synthroid, Zestril, Claritin, Lopressor, Singulair, Narcan, and Nitrostat. PHYSICAL EXAMINATION: On examination, blood pressure is 132/75 with a pulse of 89, temperature of 99, T-max is 103. He is 97% on 3 L nasal cannula. General description is a middle-aged male lying in bed in no distress. No tachypnea or accessory muscle for respiration use. HEENT examination shows no pallor or scleral icterus. Oral mucous membrane is dry. No pharyngeal erythema or thrush. LUNGS: Unlabored breathing, with decreased breath sounds at the bases. No wheeze. HEART: S1, S2. Regular rate and rhythm. ABDOMEN: Soft, no tenderness. No guarding or rigidity. EXTREMITIES: No edema of feet. SKIN EXAMINATION: No rash or mass palpable. NEUROLOGICALLY: Patient is awake, alert, oriented x2. Mood and affect normal. LABS: UA has been negative. Hemoglobin 8.3, white count 11,000. BUN of 44, creatinine 1.08. Liver enzymes are slightly elevated. Urine has been negative. Chest x-ray is possible for developing right lower lobe pneumonia. DIAGNOSTIC IMPRESSION AND PLAN: Patient with fever 103 Fahrenheit in the patient admitted to the hospital with a syncopal episode with concern for possible right lower lobe pneumonia, likely community- acquired, other source of infection could be possible acute influenza. In view of the elevated liver enzymes, underlying abdominal source is not entirely excluded. PLAN: 1. Will check acute influenza A&B PCR off nasopharyngeal swab. 2. Will check an ultrasound of the liver and gallbladder area. 3. We will keep the patient on Rocephin 1 gram daily, also add Levaquin 750 daily. 4. We will check urine for Legionella antigen. 5. We will follow on his clinical condition and culture to further adjust medication if needed. Thank you for this consultation. Will follow this patient along with you. MMODL / IJN: [id number] /
[2018-07-02] MEDS: IPRATROPIUM-ALBUTEROL 3 ML NEB INHALATION SCH ×4 (09:26→19:25)
--- NOTE | 2018-07-02 09:35 | XR ---
EXAMINATION TYPE: XR chest 2V DATE OF EXAM: 07/02/2018 COMPARISON: Chest x-ray from 2 days ago and older studies HISTORY: Shortness of breath, possible pneumonia. TECHNIQUE: Frontal and lateral views of the chest are obtained. FINDINGS: Post-CABG changes with mediastinal clips and sternal wires is present. There is chronic pa renchymal change with diffuse right lung opacity redemonstrated perhaps slightly more prominent from prior and developing infiltrate needs to BE considered. Tiny bilateral pleural effusions are felt pre sent as there is blunting of bilateral costophrenic angles on current exam and small amount of fluid within the and major fissures on lateral view.. Anterior fusion plate lower cervical spine is partial ly imaged. Cardiac silhouette size is stable and enlarged. IMPRESSION: Chronic changes and cardiomegaly with developing right mid and lower lung infiltrate and new small to tiny bilateral pleural effusions.
--- NOTE | 2018-07-02 09:55 | US ---
EXAMINATION TYPE: US abdomen limited DATE OF EXAM: 07/02/2018 COMPARISON: CT abdomen and pelvis 12/07/16 CLINICAL HISTORY: Fever , elevated LFT. EXAM MEASUREMENTS: Liver Length: 15.0 cm Gallbladder Wall: Surgically absent cm CBD: 0.4 cm Right Kidney: 9.5 x 5.0 x 4.5 cm Pancreas: Obscured by bowel gas Liver: heterogeneous texture Gallbladder: Surgically absent Evidence for sonographic Lagunas's sign: No CBD: wnl Right Kidney: Lower limits of normal in size. Pancreas is suboptimally seen on images saved secondary to patient's large body habitus and overlying bowel gas per technologist. Visualized liver is slightly heterogeneous in appearance without intrahe patic mass or hepatic ductal dilatation. No surrounding ascites is seen. Gallbladder surgically absen t. IMPRESSION: No worrisome intrahepatic mass or intrahepatic ductal dilatation is seen.
[2018-07-02] MEDS: methylPREDNISolone SOD SUCCI 125 MG/2 ML VIAL IV SCH ×3 (09:59→23:49)
--- NOTE | 2018-07-02 10:26 | PN ---
PROGRESS NOTE This is a 57-year-old white male that was admitted with a history of syncope in Dr. Morton's office pulmonology, did not look well. Blood pressure was low and was brought to the emergency room. Patient was trying to tell me that he might have tripped and fell. People that witnessed said that he definitely had a syncopal episode including his . He denied any fever, chills, chest pain, back pain, abdominal pain, nausea, vomiting, numbness, tingling, dysuria, hematuria, constipation, or diarrhea. He has been set up here and being basically followed for syncope of questionable etiology, watching his atrial fib, his diabetes mellitus and what appears maybe be a right lower lobe pneumonia. Unfortunately, today he has been wheezing severely, had been shortness of breath when I walked into the room. Of which time we put him on DuoNeb and Pulmicort and we started him on some inhalers. Review of systems from yesterday have not changed except for the shortness of breath and a nonspecific feeling of non-wellbeing. I was told and I am going through vital signs and I see he did have a fever up to 101.2, right around 6 p.m. and then 103 several hours before that period of time. He has had sputum cultures completed which basically are at this point nonspecific. Laboratory ayon, he has had initial lactic acid which was 1.3. His influenza A and B have been negative. He has a Legionella and a mycoplasma that are are pending at this period of time. His urine is basically within normal limits at this time. Physical examination today shows a weak man, but well oriented to person, place and thing. His blood pressure 168/84, heart rate is in the 70s, temperature is 97.9, respiratory rate is 18. EYES: Pupils are equal, round, react to light accommodation. ENT showed tympanic membranes and pharynx to be negative. Neck is supple with midline trachea. Chest has wheezes throughout and some rhonchi, which were not present yesterday. His O2 saturation on 3 L is down between 90 and 92. He is alert, well oriented to person, place, and thing. He just does not feel well. He said his shortness of breath has been going on for several hours. Abdomen is negative. The lower extremities, he has minimal swelling in his lower extremities. Negative [place], but good palpable lower extremity pulses. Hematology today his lab work shows a WBC 9.4, hemoglobin is 8.2. His creatinine is at 1 with a BUN of 44 and carbon dioxide is 21. His AST is 98 and ALT is 85 respectively along with an alkaline phosphatase right around 288, low albumin of 2.4. ASSESSMENT: 1. Acute exacerbation of chronic obstructive pulmonary disease. 2. Community-acquired pneumonia versus mycoplasma-viral. 3. History long-standing chronic obstructive pulmonary disease. 4. Type 2 diabetes with insulin support. 5. Depression, which has been stable. 6. Hyperlipidemia. 7. [place]'s disease. 8. Gastroesophageal reflux disease. 9. Congestive heart failure, chronic in nature. 10.Three-vessel bypass with also stent placement. 11.Pancreatic mass being evaluated by Dr. Mcgrath at [facility]. Recent MRI, we are still waiting for the results on that followup. 12.Previous history of methicillin-resistant Staphylococcus aureus. 13.Grade 1 mid upper buttocks decubitus, which has healed was previously grade 2. 14.Generalized osteoarthritis. 15.Obesity. 16.History of stage II chronic renal failure. PLAN: At this time, we started updrafts of DuoNeb q.6 hours and p.r.n., added Pulmicort 0.1 b.i.d., on Solu-Medrol 60 mg. We will wait for the cultures. Will repeat a Chem 17 today. Continue insulin support. Antibiotics ordered accordingly. Please refer to Dr. Cuevas's and Dr. Morton's note. Also history of sleep apnea and his setting has been changed to 11 cm H2O pressure and prognosis is guarded. Please refer to my orders. Chest x-ray and still waiting for the results to be posted. MMODL / IJN: [id number] /
[2018-07-02 11:07] LABS: Anisocytosis Slight; HCT 29.9 % (39.0-53.0); HGB 8.2 gm/dL (13.0-17.5); Hypochromasia Marked; MCH 20.2 pg (25.0-35.0); MCHC 27.3 g/dL (31.0-37.0); MCV 73.8 fL (80.0-100.0); Mean Platelet Volume 7.7; Microcytosis Moderate; Platelet Count 207 k/uL (150-450); Poikilocytosis Slight; RBC 4.06 m/uL (4.30-5.90); RDW 19.1 % (11.5-15.5); WBC 6.2 k/uL (3.8-10.6)
[2018-07-02 11:22] LABS: Anion Gap 10 mmol/L; Blood Urea Nitrogen 32 mg/dL (9-20); Calcium 8.9 mg/dL (8.4-10.2); Carbon Dioxide 26 mmol/L (22-30); Chloride 107 mmol/L (98-107); Glucose 123 mg/dL (74-99); Potassium 4.4 mmol/L (3.5-5.1); Sodium 143 mmol/L (137-145)
[2018-07-02 11:38] LABS: Glucose,Whole Blood 138 mg/dL (75-99)
[2018-07-02] MEDS ORDERED: ALBUTEROL NEBULIZED 2.5 MG/3 ML INHALATION SCH (12:00)
[2018-07-02 12:24] LABS: Band Neutrophils % 1 %; Basophils # (M) 0.06 k/uL (0-0.2); Eosinophils # (M) 0.43 k/uL (0-0.7); Lymphocytes # (M) 0.43 k/uL (1.0-4.8); Monocytes # (M) 0.56 k/uL (0-1.0); Neutrophils % (M) 75 %; Nucleated Red Blood Cells 0 /100 WBC (0-0); Total Cells Counted 100
[2018-07-02 12:26] LABS: Toxic Granulation Present
[2018-07-02] MEDS: HYDROcodone/APAP 10-325MG 1 EACH TAB PO PRN ×2 (13:22→21:44)
[2018-07-02 17:41] LABS: Glucose,Whole Blood 354 mg/dL (75-99)
[2018-07-02] MEDS: BUDESONIDE 1 MG/2 ML NEBU INHALATION SCH (19:25)
--- NOTE | 2018-07-02 19:59 | P.PN ---
Subjective Progress Note Date: 07/02/18 Principal diagnosis: Dizziness and lightheadedness secondary due to hypotension, somnolence and sleepiness multifactorial related to sleep apnea as well as fentanyl patch/ narcotics, chronic atrial fibrillation, right lower lobe resolving pneumonia, congestive heart failure, hypertension hypertensive cardiovascular disease, coronary artery disease with history of prior stent and bypass 07/02/2018, patient seen and evaluated examined during the rounds, patient has been more short of breath than baseline has more wheezing today continue to have issues associated with the cough which has progressed patient has been started on bronchodilators as well as Pulmicort through nebulizer treatment labs reviewed medications reviewed patient did spike a fever over the x-ray at the time admission was showing resolving pneumonia suspect component of COPD exacerbation noted primary service is evaluating for history of pancreatic mass agree with initiating IV steroids given worsening of COPD exacerbation Objective - Vital Signs Vital signs: Vital Signs Temp 98.0 F 07/02/18 15:36 Pulse 76 07/02/18 19:37 Resp 16 07/02/18 19:37 BP 127/62 07/02/18 15:36 Pulse Ox 100 07/02/18 15:36 Intake & Output 07/02/18 07/02/18 07/03/18 06:59 18:59 06:59 Intake Total 1200 Balance 1200 Intake: Oral 1200 Other: Voiding Method Urinal Urinal Diaper Diaper Incontinent # Voids 3 2 # Bowel Movements 2 - Exam Constitutional General appearance: cooperative, disheveled, no acute distress, obese - EENT Eyes: EOMI, PERRLA, normal appearance Ears: bilateral: normal - Neck Neck: normal ROM Carotids: bilateral: upstroke normal Thyroid: bilateral: normal size - Respiratory Respiratory: bilateral: diminished, wheezing - Cardiovascular Heart sounds: normal: S1, S2 - Gastrointestinal General gastrointestinal: normal bowel sounds, soft - Neurologic Neurologic: CNII-XII intact - Musculoskeletal Musculoskeletal: gait normal, generalized weakness, strength equal bilaterally - Psychiatric Psychiatric: A&O x's 3, appropriate affect, intact judgment & insight Remains sleepy and somnolent does follow sleep has been using BiPAP machine - Labs CBC & Chem 7: 07/02/18 09:58 07/02/18 09:58 Labs: Abnormal Lab Results - Last 24 Hours (Table) 07/01/18 07/01/18 07/02/18 Range/Units 10:35 21:07 06:39 RBC (4.30-5.90) m/uL Hgb (13.0-17.5) gm/dL Hct (39.0-53.0) % MCV (80.0-100.0) fL MCH (25.0-35.0) pg MCHC (31.0-37.0) g/dL RDW (11.5-15.5) % Lymphocytes # (Manual) (1.0-4.8) k/uL BUN (9-20) mg/dL Glucose (74-99) mg/dL POC Glucose (mg/dL) 109 H 136 H (75-99) mg/dL Hemoglobin A1c 7.6 H (4.0-6.0) % 07/02/18 07/02/18 07/02/18 Range/Units 09:58 09:58 11:23 RBC 4.06 L (4.30-5.90) m/uL Hgb 8.2 L (13.0-17.5) gm/dL Hct 29.9 L (39.0-53.0) % MCV 73.8 L (80.0-100.0) fL MCH 20.2 L (25.0-35.0) pg MCHC 27.3 L (31.0-37.0) g/dL RDW 19.1 H (11.5-15.5) % Lymphocytes # (Manual) 0.43 L (1.0-4.8) k/uL BUN 32 H (9-20) mg/dL Glucose 123 H (74-99) mg/dL POC Glucose (mg/dL) 138 H (75-99) mg/dL Hemoglobin A1c (4.0-6.0) % 07/02/18 Range/Units 17:39 RBC (4.30-5.90) m/uL Hgb (13.0-17.5) gm/dL Hct (39.0-53.0) % MCV (80.0-100.0) fL MCH (25.0-35.0) pg MCHC (31.0-37.0) g/dL RDW (11.5-15.5) % Lymphocytes # (Manual) (1.0-4.8) k/uL BUN (9-20) mg/dL Glucose (74-99) mg/dL POC Glucose (mg/dL) 354 H (75-99) mg/dL Hemoglobin A1c (4.0-6.0) % Microbiology - Last 24 Hours (Table) 07/01/18 13:35 Blood Culture - Preliminary Blood No Growth after 24 hours 07/01/18 18:20 Gram Stain - Preliminary Sputum Sputum Culture - Preliminary Assessment and Plan Assessment: Acute COPD exacerbation Dizziness lightheadedness due to hypotension Somnolence and sleepiness related to fentanyl patch as well as baseline severe degree of sleep disorder breathing and sleep apnea Chronic atrial fibrillation Right lower lobe resolving pneumonia Congestive heart failure with chronic systolic heart failure Hypertension hypertensive cardiovascular disease History of coronary artery disease with prior stents and bypass Plan: Broad-spectrum antibiotic Agree with IV steroids We'll obtain a follow-up chest x-ray tomorrow Breathing treatments Avoid narcotics and benzodiazepine as best possible Continue home medications Other recommendations pending plan of care as per clinical response of the patient Time with Patient: Greater than 30
[2018-07-02 21:09] LABS: Glucose,Whole Blood 407 mg/dL (75-99)
[2018-07-02] MEDS: MONTELUKAST 10 MG TAB PO SCH (21:33)
[2018-07-02] MEDS: amLODIPine 5 MG TAB PO SCH (21:33)
[2018-07-02] MEDS: ATORVASTATIN 80 MG TAB PO SCH (21:33)
[2018-07-02] MEDS: LEVOTHYROXINE 50 MCG TAB PO SCH (21:34)
--- NOTE | 2018-07-02 22:41 | PN ---
PROGRESS NOTE DATE OF SERVICE: 07/02/2018 REASON FOR FOLLOWUP: Fever, possible pneumonia. INTERVAL HISTORY: The patient's overall fever pattern has improved. The last temperature was last evening of 100.7. No fever since then. The patient continues to have significant cough, not bringing up a significant amount of sputum, though. No nausea. No vomiting. No abdominal pain or any diarrhea. PHYSICAL EXAMINATION: Blood pressure 127/62 with a pulse of 78, temperature 98. He is 100% on 3 L nasal cannula. General description is a middle-aged male lying in bed in no distress. RESPIRATORY SYSTEM: Unlabored breathing. Coarse breath sounds bilaterally. Occasional wheeze. HEART: S1, S2. Regular rate and rhythm. ABDOMEN: Soft. No tenderness. EXTREMITIES: No edema of the feet. LABS: Hemoglobin 8.2, white count 6.2 with a BUN of 32, creatinine 0.74. Sputum pending. Blood culture so far negative. DIAGNOSTIC IMPRESSION AND PLAN: Patient with a fever, concern likely for pneumonia with predominantly respiratory symptoms. Fever responded to the Rocephin and the Levaquin. That will be continued while waiting for the culture to finalize. Continue with supportive care. MMODL / IJN: [id number] /
[2018-07-03] MEDS ORDERED: INSULIN DETEMIR 100 UNIT/ML 10 ML VIAL SQ SCH ×3 (00:15→21:00)
[2018-07-03 02:07] LABS: Glucose,Whole Blood 468 mg/dL (75-99)
[2018-07-03 02:14] LABS: Glucose,Whole Blood 436 mg/dL (75-99)
[2018-07-03] MEDS: INSULIN ASPART 100 UNIT/ML 1 ML 10 ML VIAL SQ SCH ×4 (02:23→17:55)
[2018-07-03 06:50] LABS: Glucose,Whole Blood 373 mg/dL (75-99)
[2018-07-03 08:03] LABS: Anisocytosis Slight; Basophils % (A) 0 %; Eosinophils % (A) 0 %; HCT 27.6 % (39.0-53.0); HGB 7.6 gm/dL (13.0-17.5); Hypochromasia Marked; Lymphocytes # (A) 0.3 k/uL (1.0-4.8); Lymphocytes % (A) 8 %; MCH 19.7 pg (25.0-35.0); MCHC 27.7 g/dL (31.0-37.0); MCV 71.2 fL (80.0-100.0); Mean Platelet Volume 8.1; Microcytosis Marked; Monocytes # (A) 0.1 k/uL (0-1.0); Monocytes % (A) 4 %; Neutrophils # (A) 2.7 k/uL (1.3-7.7); Neutrophils % (A) 85 %; Platelet Count 224 k/uL (150-450); Poikilocytosis Slight; RBC 3.87 m/uL (4.30-5.90); RDW 19.4 % (11.5-15.5); WBC 3.2 k/uL (3.8-10.6)
[2018-07-03] MEDS: IPRATROPIUM-ALBUTEROL 3 ML NEB INHALATION SCH ×4 (08:27→20:16)
[2018-07-03] MEDS: BUDESONIDE 1 MG/2 ML NEBU INHALATION SCH ×2 (08:27→20:16)
[2018-07-03] MEDS: METOPROLOL TARTRATE 25 MG TAB PO SCH ×2 (08:39→21:52)
[2018-07-03] MEDS: LORATADINE 10 MG TAB PO SCH (08:39)
[2018-07-03] MEDS: GABAPENTIN 400 MG CAP PO SCH ×4 (08:39→21:52)
[2018-07-03] MEDS: LISINOPRIL 5 MG TAB PO SCH (08:39)
[2018-07-03] MEDS: PANTOPRAZOLE 40 MG TABLET PO SCH (08:39)
[2018-07-03] MEDS: LEVOFLOXACIN 750 MG TAB PO SCH (08:39)
[2018-07-03] MEDS: DULoxetine HCL 30 MG CAPSULE.DR PO SCH (08:39)
[2018-07-03] MEDS: APIXABAN 5 MG TAB PO SCH ×2 (08:39→21:51)
[2018-07-03] MEDS: FUROSEMIDE 20 MG TAB PO SCH (08:39)
[2018-07-03] MEDS: ETODOLAC 400 MG TAB PO SCH ×2 (08:39→21:51)
[2018-07-03] MEDS: HYDROCORTISONE 20 MG TAB PO SCH (08:39)
[2018-07-03] MEDS: SODIUM CHLORIDE 0.9% 1,000 ML IV SCH ×2 (08:40→22:04)
[2018-07-03] MEDS: methylPREDNISolone SOD SUCCI 125 MG/2 ML VIAL IV SCH ×2 (08:40→16:12)
[2018-07-03 08:42] LABS: Anion Gap 9 mmol/L; Blood Urea Nitrogen 35 mg/dL (9-20); Calcium 8.7 mg/dL (8.4-10.2); Carbon Dioxide 28 mmol/L (22-30); Chloride 105 mmol/L (98-107); Glucose 333 mg/dL (74-99); Potassium 4.1 mmol/L (3.5-5.1); Sodium 142 mmol/L (137-145)
[2018-07-03] MEDS: HYDROcodone/APAP 10-325MG 1 EACH TAB PO PRN ×4 (08:42→22:03)
[2018-07-03] MEDS ORDERED: ARTIFICIAL TEARS-HYPROMELLOSE DROPS 15 ML BTL BOTH EYES PRN (09:06)
--- NOTE | 2018-07-03 10:48 | XR ---
EXAMINATION TYPE: XR chest 1V portable DATE OF EXAM: 07/03/2018 Comparison: 07/02/2018 Clinical History: 57-year-old male with cough, follow-up right lower lobe pneumonia Findings: Median sternotomy wires are present with post-CABG clips. ACDF hardware. Heart mildly enlarged. Aorta within normal limits. There is worsening patchy and confluent airspace opacity throughout the right lung, greatest in the right upper lobe marginated by the minor fissure. There may be a trace right pl eural effusion now. Impression: Worsening right-sided airspace disease/pneumonia. Possible trace right effusion now. Similar mild car diomegaly.
[2018-07-03 11:18] LABS: Glucose,Whole Blood 455 mg/dL (75-99)
[2018-07-03 12:34] LABS: Glucose,Whole Blood 375 mg/dL (75-99)
[2018-07-03] MEDS ORDERED: INSULIN ASPART 100 UNIT/ML 1 ML 10 ML VIAL SQ ONE (14:01)
[2018-07-03] MEDS ORDERED: VANCOMYCIN IV PER PHARMACY 1 EACH MISC MISCELLANE PRN (14:17)
[2018-07-03 14:22] LABS: Glucose,Whole Blood 511 mg/dL (75-99)
[2018-07-03 14:22] LABS: Glucose,Whole Blood 428 mg/dL (75-99)
[2018-07-03] MEDS ORDERED: INSULIN REGULAR BOLUS (FROM DRIP BAG) IV ONE (14:48)
[2018-07-03] MEDS ORDERED: VANCOMYCIN 1,500 MG in SODIUM CHLORIDE 0.9% 250 ML IVPB ONE (15:00)
--- NOTE | 2018-07-03 15:16 | P.PN ---
Subjective Progress Note Date: 07/03/18 Patient seen and examined at the bedside with Dr. Romero. Patient is awake and alert. Patient states he is feeling better overall. He states his shortness of breath has improved. Patient reports he wore his CPAP overnight. He is on 3 L nasal cannula with oxygen saturations greater than 92%. He denies chest pain or pressure. Patient has been afebrile for 24 hours. Blood cultures are negative at the 24 hour solange. Sputum culture is positive for presumptive staph aureus. Infectious disease is following. The patient is currently on Levaquin and Rocephin. WBC 3.2. Chest x-ray today reveals worsening right sided airspace disease/pneumonia. Possible trace right pleural effusion. Mild cardiomegaly. His hemoglobin today is 7.6. He remains on IV steroids 80 mg IV every 8 hours. His blood sugars have been significantly elevated ranging from 333-511. Objective - Vital Signs Vital signs: Vital Signs Temp 98.6 F 07/03/18 05:59 Pulse 76 07/03/18 11:52 Resp 18 07/03/18 08:00 BP 137/69 07/03/18 05:59 Pulse Ox 96 07/03/18 05:59 Intake & Output 07/02/18 07/03/18 07/03/18 18:59 06:59 18:59 Intake Total 1200 600 Output Total 600 Balance 1200 0 Weight 85.4 kg Intake: Oral 1200 600 Output: Urine 600 Other: Voiding Method Urinal Urinal Urinal Diaper Diaper Diaper # Voids 2 1 # Bowel Movements 2 - Exam GENERAL: This is a 57-year-old male in no apparent distress at the time of examination. Pleasant and cooperative. HEENT: Head is atraumatic, normocephalic. Pupils are equal, round, and reactive to light. Sclerae anicteric. Conjunctivae are clear. Mucus membranes of the mouth are moist. Neck is supple. RESPIRATORY: Diminished. No use of accessory muscles. Patient maintaining oxygen saturation greater than 92%. No chest wall tenderness is noted on palpation or with deep breathing. CARDIOVASCULAR: Regular rate and rhythm. S1 and S2 noted. No JVD noted. No S3 or S4 noted. GASTROINTESTINAL: No distention noted. Abdomen soft and round. Normal active bowel sounds auscultated x 4 quadrants. No pain or tenderness noted upon palpation. INTEGUMENTARY: No cyanosis. No jaundice. No rashes noted. No cellulitis noted. EXTREMITIES: 2+ peripheral pulses. No evidence of peripheral edema. No calf tenderness noted. NEUROLOGIC: Cranial nerves II-XII intact. PSYCHIATRIC: Awake, alert, and oriented X 3. Appropriate affect. Intact judgement and insight. - Labs CBC & Chem 7: 07/03/18 07:35 07/03/18 07:35 Labs: Abnormal Lab Results - Last 24 Hours (Table) 07/02/18 07/02/18 07/03/18 Range/Units 17:39 21:05 02:05 WBC (3.8-10.6) k/uL RBC (4.30-5.90) m/uL Hgb (13.0-17.5) gm/dL Hct (39.0-53.0) % MCV (80.0-100.0) fL MCH (25.0-35.0) pg MCHC (31.0-37.0) g/dL RDW (11.5-15.5) % Lymphocytes # (1.0-4.8) k/uL BUN (9-20) mg/dL Glucose (74-99) mg/dL POC Glucose (mg/dL) 354 H 407 H 468 H (75-99) mg/dL 07/03/18 07/03/18 07/03/18 Range/Units 02:12 06:48 07:35 WBC 3.2 L (3.8-10.6) k/uL RBC 3.87 L (4.30-5.90) m/uL Hgb 7.6 L (13.0-17.5) gm/dL Hct 27.6 L (39.0-53.0) % MCV 71.2 L (80.0-100.0) fL MCH 19.7 L (25.0-35.0) pg MCHC 27.7 L (31.0-37.0) g/dL RDW 19.4 H (11.5-15.5) % Lymphocytes # 0.3 L (1.0-4.8) k/uL BUN (9-20) mg/dL Glucose (74-99) mg/dL POC Glucose (mg/dL) 436 H 373 H (75-99) mg/dL 10/07/03/18 07/03/18 Range/Units 07:35 11:09 12:31 WBC (3.8-10.6) k/uL RBC (4.30-5.90) m/uL Hgb (13.0-17.5) gm/dL Hct (39.0-53.0) % MCV (80.0-100.0) fL MCH (25.0-35.0) pg MCHC (31.0-37.0) g/dL RDW (11.5-15.5) % Lymphocytes # (1.0-4.8) k/uL BUN 35 H (9-20) mg/dL Glucose 333 H (74-99) mg/dL POC Glucose (mg/dL) 455 H 375 H (75-99) mg/dL 07/03/18 07/03/18 Range/Units 14:18 14:19 WBC (3.8-10.6) k/uL RBC (4.30-5.90) m/uL Hgb (13.0-17.5) gm/dL Hct (39.0-53.0) % MCV (80.0-100.0) fL MCH (25.0-35.0) pg MCHC (31.0-37.0) g/dL RDW (11.5-15.5) % Lymphocytes # (1.0-4.8) k/uL BUN (9-20) mg/dL Glucose (74-99) mg/dL POC Glucose (mg/dL) 511 H 428 H (75-99) mg/dL Microbiology - Last 24 Hours (Table) 07/01/18 18:20 Gram Stain - Preliminary Sputum Sputum Culture - Preliminary Presumptive Staph aureus 07/01/18 13:35 Blood Culture - Preliminary Blood No Growth after 24 hours Assessment and Plan Plan: ASSESSMENT: Acute exacerbation of chronic obstructive pulmonary disease Right-sided pneumonia, sputum culture positive for presumptive staph aureus Diabetes mellitus, type II Steroid-induced hyperglycemia Obstructive sleep apnea, patient utilizes CPAP at night Chronic systolic congestive heart failure, EF 30-to 40%, patient does not have acute exacerbation of CHF Adrenal insufficiency, maintained on Cortef Hyperlipidemia Paroxysmal atrial fibrillation, maintained on long-term anticoagulation with Eliquis Coronary artery disease with previous coronary artery bypass grafting and previous stent placement Chronic microcytic hypochromic anemia, etiology unclear History of pancreatic tail neuroendocrine tumor, 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 Mcgrath, patient declined surgical intervention Osteoarthritis Hypothyroidism Obesity: BMI 31.3 Stage II pressure ulcer of buttocks, present on admission, healing Hospitalization for pneumonia and left pleural effusion, 06/08/2018-06/13/2018, completed course of antibiotics inpatient, s/p left thoracentesis with removal of 500 mL. Hospitalization for pneumonia, 05/22/2018-05/27/2018, sputum positive for MRSA, discharged home on vancomycin and Rocephin Hospitalization for right infrahilar pneumonia, 05/12/18-05/20/18, sputum culture positive for E. coli, s/p bronch with BAL, culture positive for jumana, discharged home on 14 day course of Rocephin Hospitalization for right lower lobe pneumonia 04/29/2018-05/05/2018, discharged home on 7 day course of Levaquin Hospitalization for sepsis and pneumonia, discharged 04/16/2018 on 10 day regimen of Vancomycin PLAN: Pulmonary on consult. Appreciate recommendations and input Continue nebulizer treatments. Continue CPAP at night Decrease IV steroids to 60 mg every 6 hours Begin insulin drip. Discontinue Levemir while on insulin drip. NovoLog 11 units TID with meals. Infectious disease on consult. Appreciate recommendations and input Case discussed with Dr. Cuevas. Will add vancomycin to patient's medication regimen and tell sputum culture is finalized. Will discontinue Levaquin. Will increase Rocephin to 2 g daily Home meds as appropriate Monitor labs GI prophylaxis: Protonix 40 mg PO Daily DVT prophylaxis: Eliquis 5mg BID Monitor vital signs and address as appropriate Discharge planning: Patient to return home when stable Further recommendations pending patient's course Nurse practitioner note has been reviewed by physician. Signing provider agrees with the documented findings, assessment, and plan of care.
--- NOTE | 2018-07-03 15:43 | P.PN ---
Subjective Progress Note Date: 07/03/18 Principal diagnosis: Dizziness and lightheadedness secondary due to hypotension, somnolence and sleepiness multifactorial related to sleep apnea as well as fentanyl patch/ narcotics, chronic atrial fibrillation, right lower lobe resolving pneumonia, congestive heart failure, hypertension hypertensive cardiovascular disease, coronary artery disease with history of prior stent and bypass 07/03/2018, patient seen eval reexamined during the rounds from respiratory standpoint doing slightly better still have ongoing cough congestion but severity has improved wheezing are present, mental status slightly better chest x-ray continued to show interstitial edema and slight worsening appears to be related to fluid overload, patient is currently on 20 mg of Lasix 20 by mouth 2 times a day, would benefit from changing the Lasix to IV every 12 continue to monitor labs closely monitor the sputum is showing gram-positive cocci may very well be MRSA 07/02/2018, patient seen and evaluated examined during the rounds, patient has been more short of breath than baseline has more wheezing today continue to have issues associated with the cough which has progressed patient has been started on bronchodilators as well as Pulmicort through nebulizer treatment labs reviewed medications reviewed patient did spike a fever over the x-ray at the time admission was showing resolving pneumonia suspect component of COPD exacerbation noted primary service is evaluating for history of pancreatic mass agree with initiating IV steroids given worsening of COPD exacerbation Objective - Vital Signs Vital signs: Vital Signs Temp 97.8 F 07/03/18 14:50 Pulse 71 07/03/18 14:50 Resp 18 07/03/18 14:50 BP 133/77 07/03/18 14:50 Pulse Ox 98 07/03/18 14:50 Intake & Output 07/02/18 07/03/18 07/03/18 18:59 06:59 18:59 Intake Total 1200 600 600 Output Total 600 Balance 1200 0 600 Weight 85.4 kg Intake: Oral 1200 600 600 Output: Urine 600 Other: Voiding Method Urinal Urinal Urinal Diaper Diaper Diaper # Voids 2 1 2 # Bowel Movements 2 - Exam Constitutional General appearance: cooperative, disheveled, no acute distress, obese - EENT Eyes: EOMI, PERRLA, normal appearance Ears: bilateral: normal - Neck Neck: normal ROM Carotids: bilateral: upstroke normal Thyroid: bilateral: normal size - Respiratory Respiratory: bilateral: diminished, wheezing - Cardiovascular Heart sounds: normal: S1, S2 - Gastrointestinal General gastrointestinal: normal bowel sounds, soft - Neurologic Neurologic: CNII-XII intact - Musculoskeletal Musculoskeletal: gait normal, generalized weakness, strength equal bilaterally - Psychiatric Psychiatric: A&O x's 3, appropriate affect, intact judgment & insight Remains sleepy and somnolent does follow sleep has been using BiPAP machine - Labs CBC & Chem 7: 07/03/18 07:35 07/03/18 07:35 Labs: Abnormal Lab Results - Last 24 Hours (Table) 07/02/18 07/02/18 07/03/18 Range/Units 17:39 21:05 02:05 WBC (3.8-10.6) k/uL RBC (4.30-5.90) m/uL Hgb (13.0-17.5) gm/dL Hct (39.0-53.0) % MCV (80.0-100.0) fL MCH (25.0-35.0) pg MCHC (31.0-37.0) g/dL RDW (11.5-15.5) % Lymphocytes # (1.0-4.8) k/uL BUN (9-20) mg/dL Glucose (74-99) mg/dL POC Glucose (mg/dL) 354 H 407 H 468 H (75-99) mg/dL 07/03/18 07/03/18 07/03/18 Range/Units 02:12 06:48 07:35 WBC 3.2 L (3.8-10.6) k/uL RBC 3.87 L (4.30-5.90) m/uL Hgb 7.6 L (13.0-17.5) gm/dL Hct 27.6 L (39.0-53.0) % MCV 71.2 L (80.0-100.0) fL MCH 19.7 L (25.0-35.0) pg MCHC 27.7 L (31.0-37.0) g/dL RDW 19.4 H (11.5-15.5) % Lymphocytes # 0.3 L (1.0-4.8) k/uL BUN (9-20) mg/dL Glucose (74-99) mg/dL POC Glucose (mg/dL) 436 H 373 H (75-99) mg/dL 07/03/18 07/03/18 07/03/18 Range/Units 07:35 11:09 12:31 WBC (3.8-10.6) k/uL RBC (4.30-5.90) m/uL Hgb (13.0-17.5) gm/dL Hct (39.0-53.0) % MCV (80.0-100.0) fL MCH (25.0-35.0) pg MCHC (31.0-37.0) g/dL RDW (11.5-15.5) % Lymphocytes # (1.0-4.8) k/uL BUN 35 H (9-20) mg/dL Glucose 333 H (74-99) mg/dL POC Glucose (mg/dL) 455 H 375 H (75-99) mg/dL 07/03/18 07/03/18 Range/Units 14:18 14:19 WBC (3.8-10.6) k/uL RBC (4.30-5.90) m/uL Hgb (13.0-17.5) gm/dL Hct (39.0-53.0) % MCV (80.0-100.0) fL MCH (25.0-35.0) pg MCHC (31.0-37.0) g/dL RDW (11.5-15.5) % Lymphocytes # (1.0-4.8) k/uL BUN (9-20) mg/dL Glucose (74-99) mg/dL POC Glucose (mg/dL) 511 H 428 H (75-99) mg/dL Microbiology - Last 24 Hours (Table) 07/01/18 18:20 Gram Stain - Preliminary Sputum Sputum Culture - Preliminary Presumptive Staph aureus 07/01/18 13:35 Blood Culture - Preliminary Blood No Growth after 24 hours Assessment and Plan Assessment: Acute COPD exacerbation MRSA pneumonia CHF and fluid overload likely acute on chronic systolic heart failure Dizziness lightheadedness due to hypotension Somnolence and sleepiness related to fentanyl patch as well as baseline severe degree of sleep disorder breathing and sleep apnea Chronic atrial fibrillation Right lower lobe resolving pneumonia Congestive heart failure with chronic systolic heart failure Hypertension hypertensive cardiovascular disease History of coronary artery disease with prior stents and bypass Plan: Change Lasix to IV consider more aggressive diuresis Vancomycin may be required pending culture results and report Elevated BUNs likely related to prerenal azotemia associated with steroids Broad-spectrum antibiotic Agree with IV steroids We'll obtain a follow-up chest x-ray tomorrow Breathing treatments Avoid narcotics and benzodiazepine as best possible Continue home medications Other recommendations pending plan of care as per clinical response of the patient Time with Patient: Greater than 30
[2018-07-03] MEDS: INSULIN REGULAR 100 UNIT in SODIUM CHLORIDE 0.9% 100 ML IV SCH (16:06)
[2018-07-03 16:16] LABS: Glucose,Whole Blood 341 mg/dL (75-99)
[2018-07-03] MEDS ORDERED: INSULIN ASPART 100 UNIT/ML 1 ML 10 ML VIAL SQ SCH ×2 (16:30→17:30)
[2018-07-03 16:45] LABS: Glucose,Whole Blood 299 mg/dL (75-99)
[2018-07-03 17:05] LABS: Glucose,Whole Blood 245 mg/dL (75-99)
[2018-07-03 18:37] LABS: Glucose,Whole Blood 101 mg/dL (75-99)
[2018-07-03 20:10] LABS: Glucose,Whole Blood 128 mg/dL (75-99)
[2018-07-03 21:14] LABS: Glucose,Whole Blood 191 mg/dL (75-99)
[2018-07-03] MEDS: LEVOTHYROXINE 50 MCG TAB PO SCH (21:51)
[2018-07-03] MEDS: amLODIPine 5 MG TAB PO SCH (21:51)
[2018-07-03] MEDS: ATORVASTATIN 80 MG TAB PO SCH (21:51)
[2018-07-03] MEDS: MONTELUKAST 10 MG TAB PO SCH (21:51)
[2018-07-03] MEDS: FUROSEMIDE 10 MG/ML 4 ML VIAL IV SCH (22:04)
[2018-07-03 23:07] LABS: Glucose,Whole Blood 266 mg/dL (75-99)
--- NOTE | 2018-07-03 23:15 | PN ---
PROGRESS NOTE DATE OF SERVICE: 07/03/2018. REASON FOR FOLLOWUP: Pneumonia. INTERVAL HISTORY: The patient is afebrile this morning, breathing slightly comfortably. He continues to have some cough, bringing up some sputum and no chest pain. No nausea, vomiting. No abdominal pain or any diarrhea. REVIEW OF SYSTEMS: Positive points mentioned in HPI. Other review of systems has been negative. Past medical and surgical history reviewed. Medication reviewed. PHYSICAL EXAMINATION: Blood pressure 133/77 with a pulse of 81, temperature 97.8. He is 98% on 3 L nasal cannula. General description is a middle aged male up in the bed in no distress. HEENT examination: Pallor. No scleral icterus. Oral mucosal membranes dry. LUNGS: Unlabored breathing. Decreased breath sounds right side. No wheeze. Heart S1, S2. Regular rate and rhythm. Abdomen soft. No tenderness. EXTREMITIES: No edema of the feet. Skin examination: No rash or mass palpable. LABS: Hemoglobin 7.6, white count of 3.2, BUN of 35, creatinine 0.87. Sputum now showing presumptive Staph aureus. Blood culture has been negative. Chest x-ray shows worsening of the right-sided pneumonia. DIAGNOSTIC IMPRESSION AND PLAN: Patient admitted to the hospital with a fever with concern for right-sided pneumonia, now with chest x-ray showing slightly worsening, sputum showing a Staph aureus, question of possible MRSA. At this time, the vancomycin will be added, pharmacy to dose target of 15. However in view of resolution of the patient's fever with Rocephin, could be an MSSA and hence the Rocephin was increased up to 2 g and discontinue Levaquin. Plan of care discussed with the for the admitting team. Adjustment of antibiotic further on the basis of the clinical response as well as culture. Continue supportive care. MMODL / IJN: [id number] /
[2018-07-03] MEDS: IPRATROPIUM-ALBUTEROL 3 ML NEB INHALATION PRN (23:27)
[2018-07-04] MEDS: methylPREDNISolone SOD SUCCI 125 MG/2 ML VIAL IV SCH ×2 (00:34→07:42)
[2018-07-04] MEDS: VANCOMYCIN 1,500 MG in SODIUM CHLORIDE 0.9% 250 ML IVPB SCH ×2 (00:35→16:10)
[2018-07-04 01:01] LABS: Glucose,Whole Blood 235 mg/dL (75-99)
[2018-07-04 03:27] LABS: Glucose,Whole Blood 237 mg/dL (75-99)
[2018-07-04 05:24] LABS: Glucose,Whole Blood 228 mg/dL (75-99)
[2018-07-04] MEDS: IPRATROPIUM-ALBUTEROL 3 ML NEB INHALATION SCH ×4 (07:13→20:30)
[2018-07-04] MEDS: BUDESONIDE 1 MG/2 ML NEBU INHALATION SCH ×2 (07:13→20:29)
[2018-07-04 07:31] LABS: Glucose,Whole Blood 197 mg/dL (75-99)
[2018-07-04] MEDS: GABAPENTIN 400 MG CAP PO SCH ×5 (07:40→21:54)
[2018-07-04] MEDS: LISINOPRIL 5 MG TAB PO SCH (07:40)
[2018-07-04] MEDS: HYDROcodone/APAP 10-325MG 1 EACH TAB PO PRN ×4 (07:41→22:00)
[2018-07-04] MEDS: DULoxetine HCL 30 MG CAPSULE.DR PO SCH (07:41)
[2018-07-04] MEDS: LORATADINE 10 MG TAB PO SCH (07:41)
[2018-07-04] MEDS: ETODOLAC 400 MG TAB PO SCH ×2 (07:41→21:54)
[2018-07-04] MEDS: HYDROCORTISONE 20 MG TAB PO SCH (07:41)
[2018-07-04] MEDS: METOPROLOL TARTRATE 25 MG TAB PO SCH ×2 (07:41→21:55)
[2018-07-04] MEDS: APIXABAN 5 MG TAB PO SCH ×2 (07:41→21:55)
[2018-07-04] MEDS: PANTOPRAZOLE 40 MG TABLET PO SCH (07:41)
[2018-07-04] MEDS: FUROSEMIDE 10 MG/ML 4 ML VIAL IV SCH (07:42)
[2018-07-04] MEDS: INSULIN ASPART 100 UNIT/ML 1 ML 10 ML VIAL SQ SCH ×3 (07:42→17:06)
[2018-07-04] MEDS ORDERED: cefTRIAXone 2,000 MG in SODIUM CHLORIDE 0.9% 100 ML IVPB SCH (09:00)
[2018-07-04 09:03] LABS: Glucose,Whole Blood 231 mg/dL (75-99)
[2018-07-04 09:38] LABS: Anion Gap 14 mmol/L; Blood Urea Nitrogen 38 mg/dL (9-20); Calcium 8.8 mg/dL (8.4-10.2); Carbon Dioxide 28 mmol/L (22-30); Chloride 103 mmol/L (98-107); Glucose 232 mg/dL (74-99); Potassium 3.5 mmol/L (3.5-5.1); Sodium 145 mmol/L (137-145)
[2018-07-04 10:11] LABS: Anisocytosis Slight; Basophils % (A) 0 %; Eosinophils % (A) 0 %; HCT 27.5 % (39.0-53.0); HGB 7.8 gm/dL (13.0-17.5); Hypochromasia Marked; Lymphocytes # (A) 0.3 k/uL (1.0-4.8); Lymphocytes % (A) 5 %; MCH 20.4 pg (25.0-35.0); MCHC 28.5 g/dL (31.0-37.0); MCV 71.9 fL (80.0-100.0); Mean Platelet Volume 7.3; Microcytosis Marked; Monocytes # (A) 0.2 k/uL (0-1.0); Monocytes % (A) 4 %; Neutrophils # (A) 5.5 k/uL (1.3-7.7); Neutrophils % (A) 91 %; Platelet Count 228 k/uL (150-450); Poikilocytosis Slight; RBC 3.82 m/uL (4.30-5.90); RDW 19.4 % (11.5-15.5); WBC 6.1 k/uL (3.8-10.6)
[2018-07-04 11:11] LABS: Glucose,Whole Blood 330 mg/dL (75-99)
--- NOTE | 2018-07-04 12:45 | P.PN ---
Subjective Progress Note Date: 07/04/18 07/03/2018 Patient seen and examined at the bedside with Dr. Romero. Patient is awake and alert. Patient states he is feeling better overall. He states his shortness of breath has improved. Patient reports he wore his CPAP overnight. He is on 3 L nasal cannula with oxygen saturations greater than 92%. He denies chest pain or pressure. Patient has been afebrile for 24 hours. Blood cultures are negative at the 24 hour solange. Sputum culture is positive for presumptive staph aureus. Infectious disease is following. The patient is currently on Levaquin and Rocephin. WBC 3.2. Chest x-ray today reveals worsening right sided airspace disease/pneumonia. Possible trace right pleural effusion. Mild cardiomegaly. His hemoglobin today is 7.6. He remains on IV steroids 80 mg IV every 8 hours. His blood sugars have been significantly elevated ranging from 333-511. 07/04/2018 Patient seen and examined at the bedside. Patient is awake and alert. Patient was started on IV lasix yesterday per pulmonary. BNP 7240. Patients blood sugars remain elevated. He remains on an insulin drip along with Novolog with meals. Levemir is on hold due to insulin drip protocol. Vital signs are stable. Blood cultures are negative at the 48 hour solange. Sputum culture is positive for MRSA. Patient remains on vancomycin. Patient also receiving Rocephin 2 g daily. Objective - Vital Signs Vital signs: Vital Signs Temp 97.7 F 07/04/18 07:00 Pulse 88 07/04/18 11:02 Resp 18 07/04/18 07:53 BP 162/84 07/04/18 07:00 Pulse Ox 100 07/04/18 07:00 Intake & Output 07/03/18 07/04/18 07/04/18 18:59 06:59 18:59 Intake Total 1226.167 133.075 23.875 Output Total 400 1000 Balance 826.167 -866.925 23.875 Weight 85.4 kg Intake: Intake, IV Titration 26.167 33.075 23.875 Amount Insulin Regular 100 unit 26.167 33.075 23.875 In Sodium Chloride 0.9% 100 ml @ Titrate IV .Q0M [facility] Rx#:[id number] Oral 1200 100 Output: Urine 400 1000 Other: Voiding Method Urinal Urinal Urinal Diaper Diaper Diaper # Voids 1 - Exam GENERAL: This is a 57-year-old male in no apparent distress at the time of examination. Pleasant and cooperative. HEENT: Head is atraumatic, normocephalic. Pupils are equal, round, and reactive to light. Sclerae anicteric. Conjunctivae are clear. Mucus membranes of the mouth are moist. Neck is supple. RESPIRATORY: Diminished. No wheezing or crackles noted. No use of accessory muscles. Patient maintaining oxygen saturation greater than 92%. No chest wall tenderness is noted on palpation or with deep breathing. CARDIOVASCULAR: Regular rate and rhythm. S1 and S2 noted. No JVD noted. No S3 or S4 noted. GASTROINTESTINAL: No distention noted. Abdomen soft and round. Normal active bowel sounds auscultated x 4 quadrants. No pain or tenderness noted upon palpation. INTEGUMENTARY: No cyanosis. No jaundice. No rashes noted. No cellulitis noted. EXTREMITIES: 2+ peripheral pulses. No evidence of peripheral edema. No calf tenderness noted. NEUROLOGIC: Cranial nerves II-XII intact. PSYCHIATRIC: Awake, alert, and oriented X 3. Appropriate affect. Intact judgement and insight. - Labs CBC & Chem 7: 07/04/18 08:58 07/04/18 08:58 Labs: Abnormal Lab Results - Last 24 Hours (Table) 07/03/18 07/03/18 07/03/18 Range/Units 14:18 14:19 15:55 RBC (4.30-5.90) m/uL Hgb (13.0-17.5) gm/dL Hct (39.0-53.0) % MCV (80.0-100.0) fL MCH (25.0-35.0) pg MCHC (31.0-37.0) g/dL RDW (11.5-15.5) % Lymphocytes # (1.0-4.8) k/uL BUN (9-20) mg/dL Glucose (74-99) mg/dL POC Glucose (mg/dL) 511 H 428 H 341 H (75-99) mg/dL 07/03/18 07/03/18 07/03/18 Range/Units 16:31 17:00 18:34 RBC (4.30-5.90) m/uL Hgb (13.0-17.5) gm/dL Hct (39.0-53.0) % MCV (80.0-100.0) fL MCH (25.0-35.0) pg MCHC (31.0-37.0) g/dL RDW (11.5-15.5) % Lymphocytes # (1.0-4.8) k/uL BUN (9-20) mg/dL Glucose (74-99) mg/dL POC Glucose (mg/dL) 299 H 245 H 101 H (75-99) mg/dL 07/03/18 07/03/18 07/03/18 Range/Units 20:07 21:13 23:04 RBC (4.30-5.90) m/uL Hgb (13.0-17.5) gm/dL Hct (39.0-53.0) % MCV (80.0-100.0) fL MCH (25.0-35.0) pg MCHC (31.0-37.0) g/dL RDW (11.5-15.5) % Lymphocytes # (1.0-4.8) k/uL BUN (9-20) mg/dL Glucose (74-99) mg/dL POC Glucose (mg/dL) 128 H 191 H 266 H (75-99) mg/dL 07/04/18 07/04/18 07/04/18 Range/Units 01:00 03:05 05:02 RBC (4.30-5.90) m/uL Hgb (13.0-17.5) gm/dL Hct (39.0-53.0) % MCV (80.0-100.0) fL MCH (25.0-35.0) pg MCHC (31.0-37.0) g/dL RDW (11.5-15.5) % Lymphocytes # (1.0-4.8) k/uL BUN (9-20) mg/dL Glucose (74-99) mg/dL POC Glucose (mg/dL) 235 H 237 H 228 H (75-99) mg/dL 07/04/18 07/04/18 07/04/18 Range/Units 07:15 08:58 08:58 RBC 3.82 L (4.30-5.90) m/uL Hgb 7.8 L (13.0-17.5) gm/dL Hct 27.5 L (39.0-53.0) % MCV 71.9 L (80.0-100.0) fL MCH 20.4 L (25.0-35.0) pg MCHC 28.5 L (31.0-37.0) g/dL RDW 19.4 H (11.5-15.5) % Lymphocytes # 0.3 L (1.0-4.8) k/uL BUN 38 H (9-20) mg/dL Glucose 232 H (74-99) mg/dL POC Glucose (mg/dL) 197 H (75-99) mg/dL 07/04/18 07/04/18 Range/Units 09:01 11:01 RBC (4.30-5.90) m/uL Hgb (13.0-17.5) gm/dL Hct (39.0-53.0) % MCV (80.0-100.0) fL MCH (25.0-35.0) pg MCHC (31.0-37.0) g/dL RDW (11.5-15.5) % Lymphocytes # (1.0-4.8) k/uL BUN (9-20) mg/dL Glucose (74-99) mg/dL POC Glucose (mg/dL) 231 H 330 H (75-99) mg/dL Microbiology - Last 24 Hours (Table) 07/01/18 18:20 Gram Stain - Final Sputum Sputum Culture - Final Methicillin resist S. aureus 07/01/18 13:35 Blood Culture - Preliminary Blood No Growth after 48 hours Assessment and Plan Plan: ASSESSMENT: Acute exacerbation of chronic obstructive pulmonary disease Right-sided pneumonia, sputum culture positive for MRSA Diabetes mellitus, type II Steroid-induced hyperglycemia Obstructive sleep apnea, patient utilizes CPAP at night Acute on chronic systolic congestive heart failure, EF 30-to 40% Adrenal insufficiency, maintained on Cortef Hyperlipidemia Paroxysmal atrial fibrillation, maintained on long-term anticoagulation with Eliquis Coronary artery disease with previous coronary artery bypass grafting and previous stent placement Chronic microcytic hypochromic anemia, etiology unclear History of pancreatic tail neuroendocrine tumor, 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 Mcgrath, patient declined surgical intervention Osteoarthritis Hypothyroidism Obesity: BMI 31.3 Stage II pressure ulcer of buttocks, present on admission, healing Hospitalization for pneumonia and left pleural effusion, 06/08/2018-06/13/2018, completed course of antibiotics inpatient, s/p left thoracentesis with removal of 500 mL. Hospitalization for pneumonia, 05/22/2018-05/27/2018, sputum positive for MRSA, discharged home on vancomycin and Rocephin Hospitalization for right infrahilar pneumonia, 05/12/18-05/20/18, sputum culture positive for E. coli, s/p bronch with BAL, culture positive for jumana, discharged home on 14 day course of Rocephin Hospitalization for right lower lobe pneumonia 04/29/2018-05/05/2018, discharged home on 7 day course of Levaquin Hospitalization for sepsis and pneumonia, discharged 04/16/2018 on 10 day regimen of Vancomycin PLAN: Pulmonary on consult. Appreciate recommendations and input Recommend transitioning IV Lasix to oral. Will defer to pulmonary Continue nebulizer treatments. Continue CPAP at night Decrease IV steroids to 40 mg every 8 hours Continue insulin drip Continue NovoLog with meals per insulin infusion protocol Hold Levemir while on insulin drip per insulin infusion protocol Infectious disease on consult. Appreciate recommendations and input Antibiotics per ID Home meds as appropriate Monitor labs GI prophylaxis: Protonix 40 mg PO Daily DVT prophylaxis: Eliquis 5mg BID Monitor vital signs and address as appropriate Discharge planning: Patient to return home when stable Further recommendations pending patient's course Nurse practitioner note has been reviewed by physician. Signing provider agrees with the documented findings, assessment, and plan of care.
[2018-07-04 13:57] LABS: Glucose,Whole Blood 180 mg/dL (75-99)
--- NOTE | 2018-07-04 14:42 | P.PN ---
Subjective Progress Note Date: 07/04/18 Principal diagnosis: Dizziness and lightheadedness secondary due to hypotension, somnolence and sleepiness multifactorial related to sleep apnea as well as fentanyl patch/ narcotics, chronic atrial fibrillation, right lower lobe resolving pneumonia, congestive heart failure, hypertension hypertensive cardiovascular disease, coronary artery disease with history of prior stent and bypass 07/04/2018, patient seen eval reexamined during the rounds he is more awake and nurse at right is sitting upright on the chair breathing more comfortably patient has been on IV furosemide tolerating very well less congested now, sputum is positive for gram-positive cocci are now final culture revealing MRSA ID service is following and adjusting antibiotics 07/03/2018, patient seen eval reexamined during the rounds from respiratory standpoint doing slightly better still have ongoing cough congestion but severity has improved wheezing are present, mental status slightly better chest x-ray continued to show interstitial edema and slight worsening appears to be related to fluid overload, patient is currently on 20 mg of Lasix 20 by mouth 2 times a day, would benefit from changing the Lasix to IV every 12 continue to monitor labs closely monitor the sputum is showing gram-positive cocci may very well be MRSA 07/02/2018, patient seen and evaluated examined during the rounds, patient has been more short of breath than baseline has more wheezing today continue to have issues associated with the cough which has progressed patient has been started on bronchodilators as well as Pulmicort through nebulizer treatment labs reviewed medications reviewed patient did spike a fever over the x-ray at the time admission was showing resolving pneumonia suspect component of COPD exacerbation noted primary service is evaluating for history of pancreatic mass agree with initiating IV steroids given worsening of COPD exacerbation Objective - Vital Signs Vital signs: Vital Signs Temp 98.1 F 07/04/18 14:28 Pulse 77 07/04/18 14:28 Resp 20 07/04/18 14:28 BP 150/85 07/04/18 14:28 Pulse Ox 100 07/04/18 14:28 Intake & Output 07/03/18 07/04/18 07/04/18 18:59 06:59 18:59 Intake Total 1226.167 133.075 561.758 Output Total 400 1000 800 Balance 826.167 -866.925 -238.242 Weight 85.4 kg Intake: Intake, IV Titration 26.167 33.075 41.758 Amount Insulin Regular 100 unit 26.167 33.075 41.758 In Sodium Chloride 0.9% 100 ml @ Titrate IV .Q0M [facility] Rx#:[id number] Oral 1200 100 520 Output: Urine 400 1000 800 Other: Voiding Method Urinal Urinal Urinal Diaper Diaper Diaper # Voids 1 - Exam Constitutional General appearance: cooperative, disheveled, no acute distress, obese - EENT Eyes: EOMI, PERRLA, normal appearance Ears: bilateral: normal - Neck Neck: normal ROM Carotids: bilateral: upstroke normal Thyroid: bilateral: normal size - Respiratory Respiratory: bilateral: diminished, wheezing - Cardiovascular Heart sounds: normal: S1, S2 - Gastrointestinal General gastrointestinal: normal bowel sounds, soft - Neurologic Neurologic: CNII-XII intact - Musculoskeletal Musculoskeletal: gait normal, generalized weakness, strength equal bilaterally - Psychiatric Psychiatric: A&O x's 3, appropriate affect, intact judgment & insight Remains sleepy and somnolent does follow sleep has been using BiPAP machine - Labs CBC & Chem 7: 07/04/18 08:58 07/04/18 08:58 Labs: Abnormal Lab Results - Last 24 Hours (Table) 07/03/18 07/03/18 07/03/18 Range/Units 15:55 16:31 17:00 RBC (4.30-5.90) m/uL Hgb (13.0-17.5) gm/dL Hct (39.0-53.0) % MCV (80.0-100.0) fL MCH (25.0-35.0) pg MCHC (31.0-37.0) g/dL RDW (11.5-15.5) % Lymphocytes # (1.0-4.8) k/uL BUN (9-20) mg/dL Glucose (74-99) mg/dL POC Glucose (mg/dL) 341 H 299 H 245 H (75-99) mg/dL 07/03/18 07/03/18 07/03/18 Range/Units 18:34 20:07 21:13 RBC (4.30-5.90) m/uL Hgb (13.0-17.5) gm/dL Hct (39.0-53.0) % MCV (80.0-100.0) fL MCH (25.0-35.0) pg MCHC (31.0-37.0) g/dL RDW (11.5-15.5) % Lymphocytes # (1.0-4.8) k/uL BUN (9-20) mg/dL Glucose (74-99) mg/dL POC Glucose (mg/dL) 101 H 128 H 191 H (75-99) mg/dL 07/03/18 07/04/18 07/04/18 Range/Units 23:04 01:00 03:05 RBC (4.30-5.90) m/uL Hgb (13.0-17.5) gm/dL Hct (39.0-53.0) % MCV (80.0-100.0) fL MCH (25.0-35.0) pg MCHC (31.0-37.0) g/dL RDW (11.5-15.5) % Lymphocytes # (1.0-4.8) k/uL BUN (9-20) mg/dL Glucose (74-99) mg/dL POC Glucose (mg/dL) 266 H 235 H 237 H (75-99) mg/dL 07/04/18 07/04/18 07/04/18 Range/Units 05:02 07:15 08:58 RBC 3.82 L (4.30-5.90) m/uL Hgb 7.8 L (13.0-17.5) gm/dL Hct 27.5 L (39.0-53.0) % MCV 71.9 L (80.0-100.0) fL MCH 20.4 L (25.0-35.0) pg MCHC 28.5 L (31.0-37.0) g/dL RDW 19.4 H (11.5-15.5) % Lymphocytes # 0.3 L (1.0-4.8) k/uL BUN (9-20) mg/dL Glucose (74-99) mg/dL POC Glucose (mg/dL) 228 H 197 H (75-99) mg/dL 07/04/18 07/04/18 07/04/18 Range/Units 08:58 09:01 11:01 RBC (4.30-5.90) m/uL Hgb (13.0-17.5) gm/dL Hct (39.0-53.0) % MCV (80.0-100.0) fL MCH (25.0-35.0) pg MCHC (31.0-37.0) g/dL RDW (11.5-15.5) % Lymphocytes # (1.0-4.8) k/uL BUN 38 H (9-20) mg/dL Glucose 232 H (74-99) mg/dL POC Glucose (mg/dL) 231 H 330 H (75-99) mg/dL 07/04/18 Range/Units 13:36 RBC (4.30-5.90) m/uL Hgb (13.0-17.5) gm/dL Hct (39.0-53.0) % MCV (80.0-100.0) fL MCH (25.0-35.0) pg MCHC (31.0-37.0) g/dL RDW (11.5-15.5) % Lymphocytes # (1.0-4.8) k/uL BUN (9-20) mg/dL Glucose (74-99) mg/dL POC Glucose (mg/dL) 180 H (75-99) mg/dL Microbiology - Last 24 Hours (Table) 07/01/18 18:20 Gram Stain - Final Sputum Sputum Culture - Final Methicillin resist S. aureus 07/01/18 13:35 Blood Culture - Preliminary Blood No Growth after 48 hours Assessment and Plan Assessment: Acute COPD exacerbation MRSA pneumonia CHF and fluid overload likely acute on chronic systolic heart failure Dizziness lightheadedness due to hypotension Somnolence and sleepiness related to fentanyl patch as well as baseline severe degree of sleep disorder breathing and sleep apnea Chronic atrial fibrillation Right lower lobe resolving pneumonia Congestive heart failure with chronic systolic heart failure Hypertension hypertensive cardiovascular disease History of coronary artery disease with prior stents and bypass Plan: Change Lasix to by mouth once daily dosing Vancomycin may be required pending culture results and report Elevated BUNs likely related to prerenal azotemia associated with steroids Broad-spectrum antibiotic Agree with IV steroids We'll obtain a follow-up chest x-ray tomorrow Breathing treatments Avoid narcotics and benzodiazepine as best possible Continue home medications Other recommendations pending plan of care as per clinical response of the patient Time with Patient: Greater than 30
[2018-07-04] MEDS: FUROSEMIDE 40 MG TAB PO SCH (15:10)
[2018-07-04] MEDS: methylPREDNISolone SOD SUCCI 40 MG/ML 1 ML VIAL IV SCH ×2 (16:10→23:07)
[2018-07-04 16:57] LABS: Glucose,Whole Blood 156 mg/dL (75-99)
[2018-07-04] MEDS: INSULIN REGULAR 100 UNIT in SODIUM CHLORIDE 0.9% 100 ML IV SCH (16:59)
[2018-07-04 18:43] LABS: Glucose,Whole Blood 191 mg/dL (75-99)
[2018-07-04 20:53] LABS: Glucose,Whole Blood 226 mg/dL (75-99)
[2018-07-04] MEDS: LEVOTHYROXINE 50 MCG TAB PO SCH (21:54)
[2018-07-04] MEDS: amLODIPine 5 MG TAB PO SCH (21:54)
[2018-07-04] MEDS: ATORVASTATIN 80 MG TAB PO SCH (21:55)
[2018-07-04] MEDS: MONTELUKAST 10 MG TAB PO SCH (21:55)
[2018-07-04] MEDS: SODIUM CHLORIDE 0.9% 1,000 ML IV SCH (21:56)
[2018-07-04 22:56] LABS: Glucose,Whole Blood 305 mg/dL (75-99)
[2018-07-05] MEDS: IPRATROPIUM-ALBUTEROL 3 ML NEB INHALATION PRN (00:45)
[2018-07-05 01:19] LABS: Glucose,Whole Blood 219 mg/dL (75-99)
[2018-07-05 03:13] LABS: Glucose,Whole Blood 185 mg/dL (75-99)
[2018-07-05 05:30] LABS: Glucose,Whole Blood 177 mg/dL (75-99)
[2018-07-05 06:48] LABS: Glucose,Whole Blood 171 mg/dL (75-99)
[2018-07-05] MEDS ORDERED: VANCOMYCIN TROUGH DUE 1 EACH MISC MISCELLANE ONE (07:00)
[2018-07-05 07:13] LABS: Anisocytosis Slight; Basophils % (A) 0 %; Eosinophils % (A) 1 %; HCT 27.5 % (39.0-53.0); HGB 7.7 gm/dL (13.0-17.5); Hypochromasia Marked; Lymphocytes # (A) 0.2 k/uL (1.0-4.8); Lymphocytes % (A) 4 %; MCH 19.4 pg (25.0-35.0); MCHC 27.9 g/dL (31.0-37.0); MCV 69.6 fL (80.0-100.0); Mean Platelet Volume 8.3; Microcytosis Marked; Monocytes # (A) 0.2 k/uL (0-1.0); Monocytes % (A) 4 %; Neutrophils # (A) 4.6 k/uL (1.3-7.7); Neutrophils % (A) 91 %; Platelet Count 213 k/uL (150-450); Poikilocytosis Slight; RBC 3.95 m/uL (4.30-5.90); RDW 19.7 % (11.5-15.5); WBC 5.1 k/uL (3.8-10.6)
[2018-07-05 07:24] LABS: Anion Gap 11 mmol/L; Blood Urea Nitrogen 34 mg/dL (9-20); Calcium 8.5 mg/dL (8.4-10.2); Carbon Dioxide 34 mmol/L (22-30); Chloride 98 mmol/L (98-107); Glucose 159 mg/dL (74-99); Potassium 2.8 mmol/L (3.5-5.1); Sodium 143 mmol/L (137-145)
[2018-07-05] MEDS: IPRATROPIUM-ALBUTEROL 3 ML NEB INHALATION SCH ×4 (07:49→19:16)
[2018-07-05] MEDS: BUDESONIDE 1 MG/2 ML NEBU INHALATION SCH ×2 (07:49→19:16)
--- NOTE | 2018-07-05 07:50 | PN ---
PROGRESS NOTE DATE OF SERVICE: 07/04/2018. REASON FOR FOLLOWUP: MRSA pneumonia. INTERVAL HISTORY: The patient is currently afebrile. He seems to be breathing more comfortably. Patient denies having any chest pain. He did have some cough but not bringing up any sputum. No nausea, no vomiting. No abdominal pain. No diarrhea. EXAMINATION: Blood pressure 152/85 with a pulse of 77, temperature 98.1. He is 100% on room air. General description is a middle aged male up in the bed in no distress. Respiratory system: Unlabored breathing. Coarse breath sounds in the bases. No wheeze. Heart S1, S2 regular rate and rhythm. ABDOMEN: Soft. No tenderness LABS: Hemoglobin 7.8, white count 6.1. BUN of 38, creatinine 1.02. Urine for Legionella antigen negative. Sputum with MRSA. Blood culture has been negative. DIAGNOSTIC IMPRESSION AND PLAN: 1. Patient with MRSA pneumonia. Patient is currently on vancomycin. Fever has resolved. The patient possibly will need a PICC line for outpatient IV vancomycin therapy as the patient is currently on Cymbalta that will contraindicate the use of Zyvox, which could have been done orally. 2. In view of the patient's recurrent pulmonary infection may benefit from ruling out immunodeficiency especially deficiency. Those will be ordered. Continue supportive care. MMODL / IJN: [id number] /
[2018-07-05] MEDS: VANCOMYCIN 1,500 MG in SODIUM CHLORIDE 0.9% 250 ML IVPB SCH ×2 (08:16→23:07)
[2018-07-05] MEDS: DULoxetine HCL 30 MG CAPSULE.DR PO SCH (08:16)
[2018-07-05] MEDS: INSULIN ASPART 100 UNIT/ML 1 ML 10 ML VIAL SQ SCH ×3 (08:16→18:07)
[2018-07-05] MEDS: methylPREDNISolone SOD SUCCI 40 MG/ML 1 ML VIAL IV SCH ×3 (08:16→23:04)
[2018-07-05] MEDS: LORATADINE 10 MG TAB PO SCH (08:17)
[2018-07-05] MEDS: GABAPENTIN 400 MG CAP PO SCH ×4 (08:17→23:05)
[2018-07-05] MEDS: APIXABAN 5 MG TAB PO SCH ×3 (08:17→23:06)
[2018-07-05] MEDS: FUROSEMIDE 40 MG TAB PO SCH (08:17)
[2018-07-05] MEDS: LISINOPRIL 5 MG TAB PO SCH (08:17)
[2018-07-05] MEDS: METOPROLOL TARTRATE 25 MG TAB PO SCH ×2 (08:17→23:05)
[2018-07-05] MEDS: PANTOPRAZOLE 40 MG TABLET PO SCH (08:17)
[2018-07-05] MEDS: HYDROCORTISONE 20 MG TAB PO SCH (08:17)
[2018-07-05] MEDS: ETODOLAC 400 MG TAB PO SCH ×2 (08:17→23:07)
[2018-07-05] MEDS: HYDROcodone/APAP 10-325MG 1 EACH TAB PO PRN ×4 (08:22→23:05)
[2018-07-05 09:10] LABS: Glucose,Whole Blood 180 mg/dL (75-99)
[2018-07-05] MEDS ORDERED: POTASSIUM CHLORIDE 20 MEQ in WATER FOR INJECTION 1 100ML.BAG IVPB STA ×2 (09:34→09:41)
--- NOTE | 2018-07-05 10:12 | P.PN ---
Subjective Progress Note Date: 07/05/18 Principal diagnosis: Dizziness and lightheadedness secondary due to hypotension, somnolence and sleepiness multifactorial related to sleep apnea as well as fentanyl patch/ narcotics, chronic atrial fibrillation, right lower lobe resolving pneumonia, congestive heart failure, hypertension hypertensive cardiovascular disease, coronary artery disease with history of prior stent and bypass 07/05/2018, patient seen eval examined during the rounds care plan discussed with the primary service at length, patient is more awake and alert breathing comfortably had a lot of question about MRSA both me and Dr. Romero have explained as best as we can also explained patient will likely undergo PICC line with long-term antibiotics as per recommended by Dr. Ceuvas from infectious disease services 07/04/2018, patient seen eval reexamined during the rounds he is more awake and nurse at right is sitting upright on the chair breathing more comfortably patient has been on IV furosemide tolerating very well less congested now, sputum is positive for gram-positive cocci are now final culture revealing MRSA ID service is following and adjusting antibiotics 07/03/2018, patient seen eval reexamined during the rounds from respiratory standpoint doing slightly better still have ongoing cough congestion but severity has improved wheezing are present, mental status slightly better chest x-ray continued to show interstitial edema and slight worsening appears to be related to fluid overload, patient is currently on 20 mg of Lasix 20 by mouth 2 times a day, would benefit from changing the Lasix to IV every 12 continue to monitor labs closely monitor the sputum is showing gram-positive cocci may very well be MRSA 07/02/2018, patient seen and evaluated examined during the rounds, patient has been more short of breath than baseline has more wheezing today continue to have issues associated with the cough which has progressed patient has been started on bronchodilators as well as Pulmicort through nebulizer treatment labs reviewed medications reviewed patient did spike a fever over the x-ray at the time admission was showing resolving pneumonia suspect component of COPD exacerbation noted primary service is evaluating for history of pancreatic mass agree with initiating IV steroids given worsening of COPD exacerbation Objective - Vital Signs Vital signs: Vital Signs Temp 98.5 F 07/05/18 07:00 Pulse 90 07/05/18 08:10 Resp 20 07/05/18 07:00 BP 147/74 07/05/18 07:00 Pulse Ox 100 07/05/18 07:00 Intake & Output 07/04/18 07/05/18 07/05/18 18:59 06:59 18:59 Intake Total 566.091 50.175 4.467 Output Total 800 350 Balance -233.909 -299.825 4.467 Weight 90.5 kg Intake: Intake, IV Titration 46.091 50.175 4.467 Amount Insulin Regular 100 unit 46.091 50.175 4.467 In Sodium Chloride 0.9% 100 ml @ Titrate IV .Q0M [facility] Rx#:[id number] Oral 520 Output: Urine 800 350 Other: Voiding Method Urinal Urinal Diaper Diaper - Exam Constitutional General appearance: cooperative, disheveled, no acute distress, obese - EENT Eyes: EOMI, PERRLA, normal appearance Ears: bilateral: normal - Neck Neck: normal ROM Carotids: bilateral: upstroke normal Thyroid: bilateral: normal size - Respiratory Respiratory: bilateral: diminished, wheezing - Cardiovascular Heart sounds: normal: S1, S2 - Gastrointestinal General gastrointestinal: normal bowel sounds, soft - Neurologic Neurologic: CNII-XII intact - Musculoskeletal Musculoskeletal: gait normal, generalized weakness, strength equal bilaterally - Psychiatric Psychiatric: A&O x's 3, appropriate affect, intact judgment & insight Remains sleepy and somnolent does follow sleep has been using BiPAP machine - Labs CBC & Chem 7: 07/05/18 06:55 07/05/18 06:55 Labs: Abnormal Lab Results - Last 24 Hours (Table) 07/04/18 07/04/18 07/04/18 Range/Units 08:58 11:01 13:36 RBC 3.82 L (4.30-5.90) m/uL Hgb 7.8 L (13.0-17.5) gm/dL Hct 27.5 L (39.0-53.0) % MCV 71.9 L (80.0-100.0) fL MCH 20.4 L (25.0-35.0) pg MCHC 28.5 L (31.0-37.0) g/dL RDW 19.4 H (11.5-15.5) % Lymphocytes # 0.3 L (1.0-4.8) k/uL Potassium (3.5-5.1) mmol/L Carbon Dioxide (22-30) mmol/L BUN (9-20) mg/dL Glucose (74-99) mg/dL POC Glucose (mg/dL) 330 H 180 H (75-99) mg/dL 07/04/18 07/04/18 07/04/18 Range/Units 16:47 18:41 20:44 RBC (4.30-5.90) m/uL Hgb (13.0-17.5) gm/dL Hct (39.0-53.0) % MCV (80.0-100.0) fL MCH (25.0-35.0) pg MCHC (31.0-37.0) g/dL RDW (11.5-15.5) % Lymphocytes # (1.0-4.8) k/uL Potassium (3.5-5.1) mmol/L Carbon Dioxide (22-30) mmol/L BUN (9-20) mg/dL Glucose (74-99) mg/dL POC Glucose (mg/dL) 156 H 191 H 226 H (75-99) mg/dL 07/04/18 07/05/18 07/05/18 Range/Units 22:55 01:06 03:04 RBC (4.30-5.90) m/uL Hgb (13.0-17.5) gm/dL Hct (39.0-53.0) % MCV (80.0-100.0) fL MCH (25.0-35.0) pg MCHC (31.0-37.0) g/dL RDW (11.5-15.5) % Lymphocytes # (1.0-4.8) k/uL Potassium (3.5-5.1) mmol/L Carbon Dioxide (22-30) mmol/L BUN (9-20) mg/dL Glucose (74-99) mg/dL POC Glucose (mg/dL) 305 H 219 H 185 H (75-99) mg/dL 07/05/18 07/05/18 07/05/18 Range/Units 05:11 06:44 06:55 RBC 3.95 L (4.30-5.90) m/uL Hgb 7.7 L (13.0-17.5) gm/dL Hct 27.5 L (39.0-53.0) % MCV 69.6 L (80.0-100.0) fL MCH 19.4 L (25.0-35.0) pg MCHC 27.9 L (31.0-37.0) g/dL RDW 19.7 H (11.5-15.5) % Lymphocytes # 0.2 L (1.0-4.8) k/uL Potassium (3.5-5.1) mmol/L Carbon Dioxide (22-30) mmol/L BUN (9-20) mg/dL Glucose (74-99) mg/dL POC Glucose (mg/dL) 177 H 171 H (75-99) mg/dL 07/05/18 07/05/18 Range/Units 06:55 08:50 RBC (4.30-5.90) m/uL Hgb (13.0-17.5) gm/dL Hct (39.0-53.0) % MCV (80.0-100.0) fL MCH (25.0-35.0) pg MCHC (31.0-37.0) g/dL RDW (11.5-15.5) % Lymphocytes # (1.0-4.8) k/uL Potassium 2.8 L (3.5-5.1) mmol/L Carbon Dioxide 34 H (22-30) mmol/L BUN 34 H (9-20) mg/dL Glucose 159 H (74-99) mg/dL POC Glucose (mg/dL) 180 H (75-99) mg/dL Microbiology - Last 24 Hours (Table) 07/01/18 13:35 Blood Culture - Preliminary Blood No Growth after 72 hours 07/01/18 18:20 Gram Stain - Final Sputum Sputum Culture - Final Methicillin resist S. aureus Assessment and Plan Assessment: Severe hypokalemia Acute COPD exacerbation MRSA pneumonia CHF and fluid overload likely acute on chronic systolic heart failure Dizziness lightheadedness due to hypotension Somnolence and sleepiness related to fentanyl patch as well as baseline severe degree of sleep disorder breathing and sleep apnea Chronic atrial fibrillation Right lower lobe resolving pneumonia Congestive heart failure with chronic systolic heart failure Hypertension hypertensive cardiovascular disease History of coronary artery disease with prior stents and bypass Plan: Continue Lasix to by mouth once daily dosing, replace potassium and on potassium replacement protocol Vancomycin via PICC line may be required Elevated BUNs likely related to prerenal azotemia associated with steroids Broad-spectrum antibiotic Agree with IV steroids We'll obtain a follow-up chest x-ray tomorrow Breathing treatments Avoid narcotics and benzodiazepine as best possible Continue home medications Other recommendations pending plan of care as per clinical response of the patient Time with Patient: Greater than 30
--- NOTE | 2018-07-05 10:20 | PN ---
PROGRESS NOTE This is a 57-year-old white male on 06/30/2018 had a syncopal episode in Dr. Morton's office. He was directed to the emergency room, which at that time saw some worsening of right spaces disease and pneumonia. Previous elevated white count along with the BNP about 7240 was placed in the hospital with pneumonia, syncope and mild congestive heart failure. Also had a very elevated blood sugar in the last 24 hours on steroids and has been on IV drip and has continued to improve. Unfortunately, sputum is now positive for MRSA and the patient has been then placed on vancomycin, also receiving Rocephin. Today, he was scheduled for a PICC line for IV Rocephin. REVIEW OF SYSTEMS: Eyes are fine. ENT is dry mouth. Neck is supple. Chest minimal wheezes, minimal to no rhonchi. Heart is without palpitations. No shortness of breath. No orthopnea, no paroxysmal nocturnal dyspnea. No chest wall tenderness. Abdomen, he is not having any abdominal pain. No diarrhea. No vomiting. No hematemesis, melena, hematochezia. No constipation. with no problems with urination. Neuromuscular, he has good strength in his legs and his arms but he has a history of severe chronic lumbar stenosis, degenerative low back with pain. He has a history of a healed coccyx decubitus. LAB WORK: At this time shows a WBC of 5.1, was 7 7 hemoglobin, creatinine is 0.77 with a BUN of 34, potassium is down at 2.8. PHYSICAL EXAMINATION: VITAL SIGNS: Blood pressure 147/74, heart rate is in the 70s, respiratory rate is 20, temperature is 98.5 with a pulse rate of 90. EYES: Pupils are equal, round, react to light accommodation. ENT: Showed tympanic membranes and pharynx to be negative. NECK: Supple to midline trachea. Chest actually essentially clear to auscultation. Heart is sinus rhythm with no murmur. ABDOMEN: Soft, nontender. No organomegaly. Lower extremity swelling is +1 but nonpitting. Decreased pulses in the extremities. Blood sugars are now down into the 100-200 range. Skin has multiple areas of bruising and very, very dry skin, especially on his arms. Psychiatric, no depression. No anxiety and says he is feeling good. ASSESSMENT: 1. Right-sided fistula, sputum positive now for methicillin-resistant Staphylococcus aureus. 2. Type 2 diabetes with insulin support, steroid induced hyperglycemia with severe chronic obstructive pulmonary disease with exacerbation of obstructive sleep apnea with CPAP. 3. Acute on chronic congestive heart failure. Ejection fraction 30%-40%. 4. Adrenal insufficiency maintained on Cortef. 5. Hyperlipidemia. 6. Paroxysmal atrial fibrillation, maintained on long-term coagulation for Eliquis. 7. Coronary artery disease with bypass and previous stent. 8. Chronic microcytic hypochromic anemia. 9. 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 Dr. Moura is following this patient. The patient has declined any type of surgical intervention. 10.Generalized osteoarthritis. 11.Hypothyroid. 12.Obesity, body mass index of 31.3. 13.Stage II ulcer on the buttocks, which is healing. 14.Hospitalization for previous pneumonias, left pleural effusion on 06/08/2018, and completed a course of antibiotics, left thoracentesis. Hospitalization for pneumonia previous 05/23/2018 through 05/27/2018, which was positive for MRSA and discharged at that time on vancomycin and Rocephin. In for hilar pneumonias on 05/12 through 05/20/2018 positive for E coli. Patient was discharged on 14 days of IV Rocephin. Hospitalization for right lower lobe pneumonia 04/29/2018 through 05/05/2018. PLAN: Continue the same IV medication with decreasing IV steroids. Potassium, he also has hypokalemia which with potassium replacement. He will have a PICC line placed, an order was put in. Have to stop Eliquis for 24 hours prior to placement. GI Protonix 40, DVT Eliquis at 55 b.i.d. His prognosis is guarded. MMODL / IJN: [id number] /
[2018-07-05 11:03] LABS: Glucose,Whole Blood 251 mg/dL (75-99)
[2018-07-05 13:07] LABS: Glucose,Whole Blood 161 mg/dL (75-99)
[2018-07-05] MEDS: INSULIN REGULAR 100 UNIT in SODIUM CHLORIDE 0.9% 100 ML IV SCH (13:29)
[2018-07-05 15:39] LABS: Glucose,Whole Blood 250 mg/dL (75-99)
[2018-07-05 17:09] LABS: Glucose,Whole Blood 251 mg/dL (75-99)
[2018-07-05 19:09] LABS: Glucose,Whole Blood 243 mg/dL (75-99)
[2018-07-05 19:09] LABS: Glucose,Whole Blood 266 mg/dL (75-99)
[2018-07-05 21:13] LABS: Glucose,Whole Blood 203 mg/dL (75-99)
[2018-07-05] MEDS: MONTELUKAST 10 MG TAB PO SCH (23:05)
[2018-07-05] MEDS: LEVOTHYROXINE 50 MCG TAB PO SCH (23:05)
[2018-07-05] MEDS: amLODIPine 5 MG TAB PO SCH (23:06)
[2018-07-05] MEDS: ATORVASTATIN 80 MG TAB PO SCH (23:06)
[2018-07-05] MEDS: SODIUM CHLORIDE 0.9% 1,000 ML IV SCH (23:07)
[2018-07-05 23:08] LABS: Glucose,Whole Blood 176 mg/dL (75-99)
[2018-07-06] MEDS: IPRATROPIUM-ALBUTEROL 3 ML NEB INHALATION PRN (00:41)
[2018-07-06 01:21] LABS: Glucose,Whole Blood 285 mg/dL (75-99)
[2018-07-06 03:06] LABS: Glucose,Whole Blood 300 mg/dL (75-99)
[2018-07-06] MEDS: HYDROcodone/APAP 10-325MG 1 EACH TAB PO PRN ×5 (04:06→20:37)
[2018-07-06 05:33] LABS: Glucose,Whole Blood 186 mg/dL (75-99)
[2018-07-06 06:42] LABS: Glucose,Whole Blood 156 mg/dL (75-99)
[2018-07-06] MEDS: BUDESONIDE 1 MG/2 ML NEBU INHALATION SCH ×2 (07:24→20:11)
[2018-07-06] MEDS: IPRATROPIUM-ALBUTEROL 3 ML NEB INHALATION SCH ×4 (07:24→20:11)
[2018-07-06] MEDS: APIXABAN 5 MG TAB PO SCH (08:08)
[2018-07-06] MEDS: INSULIN ASPART 100 UNIT/ML 1 ML 10 ML VIAL SQ SCH ×3 (08:15→18:28)
[2018-07-06] MEDS: methylPREDNISolone SOD SUCCI 40 MG/ML 1 ML VIAL IV SCH ×2 (08:15→16:26)
[2018-07-06] MEDS: HYDROCORTISONE 20 MG TAB PO SCH (08:16)
[2018-07-06] MEDS: METOPROLOL TARTRATE 25 MG TAB PO SCH ×2 (08:16→20:25)
[2018-07-06] MEDS: GABAPENTIN 400 MG CAP PO SCH ×4 (08:16→20:25)
[2018-07-06] MEDS: LORATADINE 10 MG TAB PO SCH (08:16)
[2018-07-06] MEDS: LISINOPRIL 5 MG TAB PO SCH (08:16)
[2018-07-06] MEDS: DULoxetine HCL 30 MG CAPSULE.DR PO SCH (08:17)
[2018-07-06] MEDS: PANTOPRAZOLE 40 MG TABLET PO SCH (08:17)
[2018-07-06] MEDS: ETODOLAC 400 MG TAB PO SCH ×2 (08:17→20:24)
[2018-07-06] MEDS: FUROSEMIDE 40 MG TAB PO SCH (08:17)
[2018-07-06 08:24] LABS: Glucose,Whole Blood 174 mg/dL (75-99)
--- NOTE | 2018-07-06 10:00 | PN ---
PROGRESS NOTE Patient feels real good. No shortness of breath. No chest pain. Actually breathing really well and it is well known. He has a history of MRSA. At this point, we are just waiting for a PICC line and feels good. REVIEW OF SYSTEMS: ENT: He has a dry mouth and also very dry nose. NECK: Supple. Chest: He has minimal wheezes. He says he has minimal coughing. Heart: He has without palpitation. No chest pain. No proximal nocturnal dyspnea. No orthopnea. No chest wall tenderness. Abdomen he is having no diarrhea. No abdominal pain. No nausea, vomiting. No hematemesis, melena, hematochezia, or constipation. : Negative. Neuromuscular is negative at this period of time except for very weak. He has a chronic low back pain. No new lab work at this period of time. PHYSICAL EXAMINATION: Reveals that of a blood pressure of 140/70, heart rate is 70, respiratory rate is 20, temperature is 98, pulse rate is 80. Eyes, pupils are equal, round, react to light and accommodation. ENT showed tympanic membranes and pharynx to be negative. NECK: Supple. Midline trachea. Chest essentially clear to auscultation. Heart sinus rhythm at this point with a history of atrial fib. ABDOMEN: Soft, nontender with no organomegaly. There are decreases in pulses. He has arthritis seen in his hands and his feet and his wrists. Very dry skin, so integumentary shows dry skin. Allergy very, very dry mouth. Blood sugars are within normal limits. ASSESSMENT: 1. Right-sided pneumonia. 2. Type 2 diabetes with insulin support. 3. Acute congestive heart failure. 4. Stable adrenal insufficiency on Cortef. 5. Hyperlipidemia. 6. Proximal atrial fib, now in sinus rhythm and on Eliquis. 7. Coronary artery disease, previous stent. 8. Chronic microcytic anemia. 9. History of pancreatic tail and tumor. 10.Generalized osteoarthritis. 11.Hypothyroid. 12.Obesity. 13.Type 2 ulcer. 14.Previous hospitalizations from pneumonia. PLAN: He will have a PICC line placed. He is going to be on IV medications. Just talked with Dr. Morton about length of time for the vancomycin. His anemia now will be followed up on an outpatient basis. Also for evaluation. Also, he will be following with Dr. Mcgrath for pancreatic tumor which seems to be neuroendocrine without metastatic disease. MMODL / IJN: [id number] /
[2018-07-06 10:09] LABS: Anisocytosis Slight; Basophils % (A) 0 %; Eosinophils % (A) 0 %; HCT 28.1 % (39.0-53.0); HGB 8.1 gm/dL (13.0-17.5); Hypochromasia Marked; Lymphocytes # (A) 0.2 k/uL (1.0-4.8); Lymphocytes % (A) 5 %; MCHC 28.8 g/dL (31.0-37.0); MCV 69.6 fL (80.0-100.0); Mean Platelet Volume 8.1; Microcytosis Marked; Monocytes # (A) 0.3 k/uL (0-1.0); Monocytes % (A) 7 %; Neutrophils # (A) 3.9 k/uL (1.3-7.7); Neutrophils % (A) 85 %; Platelet Count 228 k/uL (150-450); Poikilocytosis Slight; RBC 4.04 m/uL (4.30-5.90); RDW 19.6 % (11.5-15.5); WBC 4.5 k/uL (3.8-10.6)
[2018-07-06 10:12] LABS: Glucose,Whole Blood 299 mg/dL (75-99)
[2018-07-06 10:17] LABS: ALT 49 U/L (21-72); AST 32 U/L (17-59); Albumin 3.1 g/dL (3.5-5.0); Alkaline Phosphatase 146 U/L (38-126); Anion Gap 12 mmol/L; Blood Urea Nitrogen 30 mg/dL (9-20); Carbon Dioxide 34 mmol/L (22-30); Chloride 95 mmol/L (98-107); Glucose 253 mg/dL (74-99); Potassium 2.8 mmol/L (3.5-5.1); Sodium 141 mmol/L (137-145); Total Bilirubin 0.7 mg/dL (0.2-1.3); Total Protein 6.1 g/dL (6.3-8.2)
[2018-07-06 11:38] LABS: Glucose,Whole Blood 233 mg/dL (75-99)
[2018-07-06] MEDS: INSULIN REGULAR 100 UNIT in SODIUM CHLORIDE 0.9% 100 ML IV SCH (12:21)
[2018-07-06] MEDS: POTASSIUM CHLORIDE ER 20 MEQ TAB.ER PO SCH ×3 (12:45→15:13)
[2018-07-06 14:12] LABS: Glucose,Whole Blood 134 mg/dL (75-99)
[2018-07-06 16:05] LABS: Glucose,Whole Blood 180 mg/dL (75-99)
[2018-07-06] MEDS: VANCOMYCIN 1,500 MG in SODIUM CHLORIDE 0.9% 250 ML IVPB SCH (16:25)
[2018-07-06 17:59] LABS: Glucose,Whole Blood 131 mg/dL (75-99)
[2018-07-06 20:04] LABS: Glucose,Whole Blood 261 mg/dL (75-99)
[2018-07-06] MEDS: SODIUM CHLORIDE 0.9% 1,000 ML IV SCH (20:23)
[2018-07-06] MEDS: ATORVASTATIN 80 MG TAB PO SCH (20:24)
[2018-07-06] MEDS: MONTELUKAST 10 MG TAB PO SCH (20:25)
[2018-07-06] MEDS: LEVOTHYROXINE 50 MCG TAB PO SCH (20:25)
[2018-07-06 22:01] LABS: Glucose,Whole Blood 285 mg/dL (75-99)
[2018-07-07 00:14] LABS: Glucose,Whole Blood 244 mg/dL (75-99)
[2018-07-07] MEDS: IPRATROPIUM-ALBUTEROL 3 ML NEB INHALATION SCH ×3 (00:19→11:30)
[2018-07-07] MEDS: methylPREDNISolone SOD SUCCI 40 MG/ML 1 ML VIAL IV SCH ×2 (00:19→08:20)
[2018-07-07 00:38] VITALS: RESP 14
[2018-07-07 02:06] LABS: Glucose,Whole Blood 227 mg/dL (75-99)
[2018-07-07 04:24] LABS: Glucose,Whole Blood 166 mg/dL (75-99)
[2018-07-07 05:44] VITALS: BP 170/71; TEMP 97.5
[2018-07-07 06:29] LABS: Glucose,Whole Blood 168 mg/dL (75-99)
[2018-07-07] MEDS: BUDESONIDE 1 MG/2 ML NEBU INHALATION SCH (07:32)
[2018-07-07] MEDS: GABAPENTIN 400 MG CAP PO SCH ×2 (08:18→12:11)
[2018-07-07 08:19] LABS: Glucose,Whole Blood 157 mg/dL (75-99)
[2018-07-07] MEDS: HYDROcodone/APAP 10-325MG 1 EACH TAB PO PRN ×2 (08:19→12:11)
[2018-07-07] MEDS: INSULIN ASPART 100 UNIT/ML 1 ML 10 ML VIAL SQ SCH (08:20)
[2018-07-07] MEDS: METOPROLOL TARTRATE 25 MG TAB PO SCH (08:20)
[2018-07-07] MEDS: ETODOLAC 400 MG TAB PO SCH (08:20)
[2018-07-07] MEDS: PANTOPRAZOLE 40 MG TABLET PO SCH (08:20)
[2018-07-07] MEDS: HYDROCORTISONE 20 MG TAB PO SCH (08:20)
[2018-07-07] MEDS: LISINOPRIL 5 MG TAB PO SCH (08:21)
[2018-07-07] MEDS: LORATADINE 10 MG TAB PO SCH (08:21)
[2018-07-07] MEDS: FUROSEMIDE 40 MG TAB PO SCH (08:21)
[2018-07-07] MEDS: DULoxetine HCL 30 MG CAPSULE.DR PO SCH (08:21)
[2018-07-07] MEDS: VANCOMYCIN 1,500 MG in SODIUM CHLORIDE 0.9% 250 ML IVPB SCH (08:24)
[2018-07-07] MEDS ORDERED: predniSONE 20 MG TAB PO SCH (09:00)
[2018-07-07] MEDS ORDERED: INSULIN DETEMIR 100 UNIT/ML 10 ML VIAL SQ SCH (09:00)
[2018-07-07] MEDS ORDERED: LIDOCAINE 2% (PF) 20 MG/ML 2 ML AMP SQ ONE (09:05)
--- NOTE | 2018-07-07 09:36 | IR ---
PICC LINE PLACEMENT: HISTORY: Infection requiring long-term antibiotic therapy PROCEDURE: Ultrasound and fluoroscopic guidance of PICC line placement. COMPLICATIONS: None ANESTHESIA: 1. 1% Lidocaine locally. FINDINGS/TECHNIQUE: The procedure was explained to the patient. The risks, complications, benefits and alternatives were discussed and any questions were answered. Informed consent was obtained. The patient was placed supine on the fluoroscopic table and prepped and draped in the usual sterile fash ion. Utilizing a 21 gauge needle and sonographic and fluoroscopic guidance, access in the left basi lic vein was achieved and there is placement of a 0.018 guidewire. The vein is patent. A 4-F sheath was placed over the guidewire. The guidewire and dilator were removed and a 4-F. PICC line was plac ed through the sheath with the tip at the level of the SVC. The sheath was removed, the catheter was flushed and sutured into position. The patient was stable throughout the procedure and remained sta ble upon discharge from the Department of Radiology. The vein puncture was patent under ultrasound. A fournier scale image was obtained to document patency of the vein punctured. All elements of the maximal barrier technique were utilized. FLUOROSCOPY TIME: 0.3 minutes and one image submitted IMPRESSION: Successful PICC line placement under ultrasound and fluoroscopic guidance.
[2018-07-07 11:33] LABS: Anion Gap 12 mmol/L; Blood Urea Nitrogen 35 mg/dL (9-20); Calcium 7.8 mg/dL (8.4-10.2); Carbon Dioxide 32 mmol/L (22-30); Chloride 96 mmol/L (98-107); Glucose 277 mg/dL (74-99); Potassium 3.4 mmol/L (3.5-5.1); Sodium 140 mmol/L (137-145)
[2018-07-07 11:35] LABS: INR 1.2 (<1.2); Prothrombin Time 11.5 sec (9.0-12.0)
[2018-07-07] MEDS ORDERED: POTASSIUM CHLORIDE ER 20 MEQ TAB.ER PO STA (11:36)
[2018-07-07 11:38] LABS: Glucose,Whole Blood 284 mg/dL (75-99)
[2018-07-07 11:45] VITALS: PULSE 80
[2018-07-07] MEDS ORDERED: INSULIN ASPART 100 UNIT/ML 1 ML 10 ML VIAL SQ SCH ×2 (12:30)
--- NOTE | 2018-07-07 13:16 | P.DS ---
Providers Date of admission: 06/30/18 19:09 Expected date of discharge: 07/07/18 Attending physician: Bautista Romero Consults: 06/30/18 18:25 Consult Physician Stat Consulting Provider: Ag Morton Consult Reason/Comments: Pneumonia Do you want consulting provider notified?: Yes 07/01/18 14:58 Consult Physician Routine Consulting Provider: Chente Cuevas Consult Reason/Comments: fever Do you want consulting provider notified?: Yes Primary care physician: Bautista Romero Hospital Course: 57-year-old male who was being evaluated at his director of assisted living office when he had an apparent syncopal episode and was brought to the emergency room for further evaluation. He was admited for further monitoring. The patient was feeling well without complaints the day of admission, However, the patient did develop a fever during hospitalization. A chest x-ray was completed which revealed a possible right lower lobe pneumonia. Sputum culture was obtained which was positive for MRSA. Infectious disease has been following. The patient also expressed an acute exacerbation of his COPD during hospitalization. He was started on IV steroids and DuoNeb nebulizer treatments. His IV steroids have been weaned down and has been transitioned to oral. The patient did have some fluid overload during hospitalization and received IV Lasix. He was resumed on his home dose of oral Lasix. The patient' s blood sugars were actually elevated during hospital's atrial fibrillation the 500s secondary to his IV steroids. He was placed on insulin drip for a few days while his steroids were weaned down. Blood cultures have been negative. The patient's vital signs have stabilized. He has been afebrile. The patient received a PICC line today and will be discharged home on IV antibiotics per Dr. Villegas recommendations. DISCHARGE DIAGNOSIS: Acute exacerbation of chronic obstructive pulmonary disease, resolved Right-sided pneumonia, sputum culture positive for MRSA Diabetes mellitus, type II Steroid-induced hyperglycemia, improving Obstructive sleep apnea, patient utilizes CPAP at night Acute on chronic systolic congestive heart failure, EF 30-to 40%, resolved Adrenal insufficiency, maintained on Cortef Hyperlipidemia Paroxysmal atrial fibrillation, maintained on long-term anticoagulation with Eliquis Coronary artery disease with previous coronary artery bypass grafting and previous stent placement Chronic microcytic hypochromic anemia, etiology unclear History of pancreatic tail neuroendocrine tumor, 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 Mcgrath, patient declined surgical intervention Osteoarthritis Hypothyroidism Obesity: BMI 31.3 Stage II pressure ulcer of buttocks, present on admission, healing Hospitalization for pneumonia and left pleural effusion, 06/08/2018-06/13/2018, completed course of antibiotics inpatient, s/p left thoracentesis with removal of 500 mL. Hospitalization for pneumonia, 05/22/2018-05/27/2018, sputum positive for MRSA, discharged home on vancomycin and Rocephin Hospitalization for right infrahilar pneumonia, 05/12/18-05/20/18, sputum culture positive for E. coli, s/p bronch with BAL, culture positive for jumana, discharged home on 14 day course of Rocephin Hospitalization for right lower lobe pneumonia 04/29/2018-05/05/2018, discharged home on 7 day course of Levaquin Hospitalization for sepsis and pneumonia, discharged 04/16/2018 on 10 day regimen of Vancomycin Nurse practitioner note has been reviewed by physician. Signing provider agrees with the documented findings, assessment, and plan of care. Patient Condition at Discharge: Stable Plan - Discharge Summary Discharge Rx Participant: Yes New Discharge Prescriptions: New Furosemide [Lasix] 40 mg PO DAILY #30 tab Potassium Chloride ER [K-Dur 20] 20 meq PO DAILY #30 tab predniSONE See Taper PO DIRECTED #30 tab Vancomycin 1,250 mg IVPB Q12HR #28 bag Continue Levothyroxine Sodium [Synthroid] 50 mcg PO HS Omeprazole [PriLOSEC] 20 mg PO BID Nitroglycerin Sl Tabs [Nitrostat] 0.4 mg SUBLINGUAL Q5M PRN PRN Reason: Chest Pain amLODIPine [Norvasc] 5 mg PO HS Gabapentin [Neurontin] 800 mg PO QID HYDROcodone/APAP 10-325MG [[place] 10-325] 1 tab PO Q4HR PRN PRN Reason: Pain Montelukast [Singulair] 10 mg PO HS #30 tab Insulin Aspart [NovoLOG Flexpen] See Protocol SQ ACHS Multivit-Min/FA/Lycopen/Lutein [Centrum Silver Tablet] 1 tab PO DAILY DULoxetine HCL [Cymbalta] 30 mg PO DAILY Insulin Glargine [Lantus] 26 unit SQ BID Etodolac [Lodine] 400 mg PO BID Atorvastatin [Lipitor] 80 mg PO HS Apixaban [Eliquis] 5 mg PO BID #60 tab Metoprolol Tartrate [Lopressor] 25 mg PO BID #60 tab Lisinopril [Zestril] 5 mg PO QAM Hydrocortisone [Cortef] 20 mg PO QAM Loratadine [Claritin] 10 mg PO DAILY #30 tab Discontinued Furosemide [Lasix] 20 mg PO BID fentaNYL 25MCG/HR PATCH [Duragesic 25MCG/HR] 1 patch TRANSDERM Q72H Potassium Chloride ER [K-Dur 20] 20 meq PO BID #60 tab Discharge Medication List Levothyroxine Sodium [Synthroid] 50 mcg PO HS 02/01/14 [History] Nitroglycerin Sl Tabs [Nitrostat] 0.4 mg SUBLINGUAL Q5M PRN 02/01/14 [History] Omeprazole [PriLOSEC] 20 mg PO BID 02/01/14 [History] Gabapentin [Neurontin] 800 mg PO QID 05/13/15 [History] amLODIPine [Norvasc] 5 mg PO HS 05/13/15 [History] HYDROcodone/APAP 10-325MG [[place] 10-325] 1 tab PO Q4HR PRN 07/17/16 [History] Montelukast [Singulair] 10 mg PO HS #30 tab 11/21/16 [Rx] Insulin Aspart [NovoLOG Flexpen] See Protocol SQ ACHS 02/10/17 [History] Multivit-Min/FA/Lycopen/Lutein [Centrum Silver Tablet] 1 tab PO DAILY 02/10/17 [ History] DULoxetine HCL [Cymbalta] 30 mg PO DAILY 09/25/17 [History] Etodolac [Lodine] 400 mg PO BID 09/25/17 [History] Insulin Glargine [Lantus] 26 unit SQ BID 09/25/17 [History] Atorvastatin [Lipitor] 80 mg PO HS 02/05/18 [History] Apixaban [Eliquis] 5 mg PO BID #60 tab 02/13/18 [Rx] Metoprolol Tartrate [Lopressor] 25 mg PO BID #60 tab 02/13/18 [Rx] Hydrocortisone [Cortef] 20 mg PO QAM 04/07/18 [History] Lisinopril [Zestril] 5 mg PO QAM 04/07/18 [History] Loratadine [Claritin] 10 mg PO DAILY #30 tab 05/05/18 [Rx] Furosemide [Lasix] 40 mg PO DAILY #30 tab 07/07/18 [Rx] Potassium Chloride ER [K-Dur 20] 20 meq PO DAILY #30 tab 07/07/18 [Rx] Vancomycin 1,250 mg IVPB Q12HR #28 bag 07/07/18 [Rx] predniSONE See Taper PO DIRECTED #30 tab 07/07/18 [Rx] Follow up Appointment(s)/Referral(s): [facility], [REFERRING] - As Needed Bautista Romero MD [Primary Care Provider] - 1 Week [facility]Nurse [NON-STAFF] - As Needed Ag Morton MD [STAFF PHYSICIAN] - 2 Weeks Chente Cuevas MD [STAFF PHYSICIAN] - 1 Week Ambulatory/Diagnostic Orders: Basic Metabolic Panel [LAB.AMB] Location: None Selected Complete Blood Count w/diff [LAB.AMB] Location: None Selected Vancomycin,Trough [LAB.AMB] Location: None Selected Discharge Disposition: HOME WITH HOME HEALTH SERVICES
--- NOTE | 2018-07-07 15:16 | PN ---
PROGRESS NOTE DATE OF SERVICE: 07/07/2018 REASON FOR FOLLOWUP: MRSA pneumonia. INTERVAL HISTORY: The patient was seen on rounds this morning. The patient has been afebrile, has been breathing more comfortably. Cough has decreased in intensity. No chest pain. No abdominal pain and no diarrhea. PHYSICAL EXAMINATION: Blood pressure is 170/71 with a pulse of 61, temperature of 97.5. He is 100% on 2 L nasal cannula. General description is a middle-aged male, lying in bed in no distress. RESPIRATORY SYSTEM: Unlabored breathing with decreased breath sounds, no wheeze. HEART: S1, S2. Regular rate and rhythm. ABDOMEN: Soft, no tenderness. LABS: BUN of 35, creatinine 0.73, hemoglobin 8.1, white count of 4.5. DIAGNOSTIC IMPRESSION AND PLAN: Patient with methicillin-resistant Staphylococcus aureus and pneumonia. Currently on SSI, secondary to the use of Zyvox. Recommending vancomycin, pharmacy to dose, target of 15 for 2 weeks with close outpatient followup. Scripts were provided to the patient. Continue supportive care. MMODL / IJN: [id number] /
[2018-07-07] MEDS ORDERED: VANCOMYCIN TROUGH DUE 1 EACH MISC MISCELLANE ONE (23:00)
== END 2018-07-07 14:50 | disposition home health service (06) | DRG 177 ==
LOC: EC 15:02 → 4MS4W 19:09
PROVIDERS: ADMIT Family Medicine; ATTEND Family Medicine
PROC: 02HV33Z Insertion of Infusion Device into Superior Vena Cava, Percutaneous Approach (ICD-10-PCS; principal; 2018-07-07 08:58)
DX: J15.212 Pneumonia due to Methicillin resistant Staphylococcus aureus (principal); I50.23 Acute on chronic systolic (congestive) heart failure; J44.0 Chronic obstructive pulmonary disease with (acute) lower respiratory infection; J44.1 Chronic obstructive pulmonary disease with (acute) exacerbation; I13.0 Hypertensive heart and chronic kidney disease with heart failure and stage 1 through stage 4 chronic kidney disease, or unspecified chronic kidney disease; E27.1 Primary adrenocortical insufficiency; E11.22 Type 2 diabetes mellitus with diabetic chronic kidney disease; E11.65 Type 2 diabetes mellitus with hyperglycemia; Z79.4 Long term (current) use of insulin; Z87.891 Personal history of nicotine dependence; L89.302 Pressure ulcer of unspecified buttock, stage 2; E66.9 Obesity, unspecified; Z68.31 Body mass index [BMI] 31.0-31.9, adult; D50.9 Iron deficiency anemia, unspecified; E03.9 Hypothyroidism, unspecified; Z79.01 Long term (current) use of anticoagulants; Z79.82 Long term (current) use of aspirin; Z79.890 Hormone replacement therapy; Z79.899 Other long term (current) drug therapy; E78.5 Hyperlipidemia, unspecified; E87.6 Hypokalemia; F32.9 Major depressive disorder, single episode, unspecified; G47.33 Obstructive sleep apnea (adult) (pediatric); I25.10 Atherosclerotic heart disease of native coronary artery without angina pectoris; I25.2 Old myocardial infarction; I48.0 Paroxysmal atrial fibrillation; I48.2 Chronic atrial fibrillation; K21.9 Gastro-esophageal reflux disease without esophagitis; K86.9 Disease of pancreas, unspecified; M15.9 Polyosteoarthritis, unspecified; N18.2 Chronic kidney disease, stage 2 (mild); T38.0X5A Adverse effect of glucocorticoids and synthetic analogues, initial encounter; W19.XXXA Unspecified fall, initial encounter; Z80.1 Family history of malignant neoplasm of trachea, bronchus and lung; Z80.3 Family history of malignant neoplasm of breast; Z82.49 Family history of ischemic heart disease and other diseases of the circulatory system; Z83.3 Family history of diabetes mellitus; Z85.828 Personal history of other malignant neoplasm of skin; Z86.14 Personal history of Methicillin resistant Staphylococcus aureus infection; Z95.1 Presence of aortocoronary bypass graft; Z95.5 Presence of coronary angioplasty implant and graft; Z96.641 Presence of right artificial hip joint; Z87.01 Personal history of pneumonia (recurrent); Z90.49 Acquired absence of other specified parts of digestive tract; Z88.5 Allergy status to narcotic agent; Z88.8 Allergy status to other drugs, medicaments and biological substances; I95.9 Hypotension, unspecified
CPT/HCPCS: 36415; 36569; 71045; 71046; 76705; 76937; 77001; 80048; 80053; 80202; 81003; 82550; 82553; 83036; 83605; 83880; 84484; 85025; 85610; 85730; 87040; 87070; 87077; 87186; 87205; 87449; 87502; 93005; 94640; 94660; 96361; 96365; 99285

== ENCOUNTER 2018-10-24 07:50 | Inpatient (IN) | payer MEDICARE ==
[2018-10-24] MEDS ORDERED: IPRATROPIUM-ALBUTEROL 3 ML NEB INHALATION STA (08:00)
[2018-10-24] MEDS ORDERED: IBUPROFEN IV 800 MG in SODIUM CHLORIDE 0.9% 250 ML IV ONE (08:26)
[2018-10-24] MEDS ORDERED: ACETAMINOPHEN IV (For NPO) 1,000 MG in EMPTY BAG 1 BAG IVPB STA (08:26)
[2018-10-24 08:53] LABS: Anisocytosis Moderate; Basophils % (A) 0 %; Eosinophils # (A) 0.4 k/uL (0-0.7); Eosinophils % (A) 3 %; HCT 31.8 % (39.0-53.0); HGB 9.3 gm/dL (13.0-17.5); Hypochromasia Marked; Lymphocytes # (A) 0.8 k/uL (1.0-4.8); Lymphocytes % (A) 6 %; MCH 25.7 pg (25.0-35.0); MCHC 29.2 g/dL (31.0-37.0); Mean Platelet Volume 8.6; Microcytosis Slight; Monocytes # (A) 0.6 k/uL (0-1.0); Monocytes % (A) 5 %; Neutrophils % (A) 85 %; Platelet Count 241 k/uL (150-450); RBC 3.62 m/uL (4.30-5.90); RDW 20.7 % (11.5-15.5); WBC 12.9 k/uL (3.8-10.6)
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
[2018-10-24 08:59] LABS: MCV 87.9 fL (80.0-100.0)
[2018-10-24 09:07] LABS: Albumin 3.1 g/dL (3.5-5.0); Calcium 8.7 mg/dL (8.4-10.2); INR 1.1 (<1.2); Magnesium 1.4 mg/dL (1.6-2.3); Partial Thromboplastin Time 24.9 sec (22.0-30.0); Potassium 3.9 mmol/L (3.5-5.1); Prothrombin Time 11.1 sec (9.0-12.0); Total Bilirubin 0.5 mg/dL (0.2-1.3); Total Protein 5.6 g/dL (6.3-8.2)
--- NOTE | 2018-10-24 09:13 | XR ---
EXAMINATION TYPE: XR chest 1V portable DATE OF EXAM: 10/24/2018 COMPARISON: 07/24/2018 HISTORY: Fever, cough, congestion and shortness of breath. History of heart failure. TECHNIQUE: Single frontal view of the chest is obtained. FINDINGS: There is resolution of previously seen right upper lobe opacity. New left lower lobe opaci ty is seen with trace left pleural effusion blunting the costophrenic angle. Post CABG changes the ch est are noted. Cardiomediastinal silhouette is mildly enlarged. Post surgical changes of a cervical s pine fusion are also partially visualized. No sizable pneumothorax or right pleural effusion. IMPRESSION: New left basilar opacity suspicious for pneumonia with a trace parapneumonic effusion.
[2018-10-24 09:36] LABS: Creatine Kinase MB 2.4 ng/mL (0.0-2.4); Troponin I 0.016 ng/mL (0.000-0.034)
[2018-10-24] MEDS ORDERED: PIPERACILLIN-TAZOBACTAM 3.375 GM in SODIUM CHLORIDE 0.9% 100 ML IVPB STA (10:14)
[2018-10-24] MEDS ORDERED: HYDROCORTISONE SUCCINATE 100 MG/2 ML VIAL IV STA (10:14)
[2018-10-24] MEDS ORDERED: LEVOFLOXACIN 750MG-D5W PMX 750 MG in DEXTROSE/WATER 1 150ML.BAG IVPB STA (10:14)
[2018-10-24] MEDS ORDERED: PNEUMONIA PROTOCOL UTILIZED 1 EACH MISC PO PRN (10:14)
[2018-10-24] MEDS: SODIUM CHLORIDE 0.9% 500 ML 500 ML IV SCH ×3 (10:49→14:50)
[2018-10-24] MEDS: SODIUM CHLORIDE 0.9% 1,000 ML IV SCH ×2 (12:41→17:26)
[2018-10-24] MEDS ORDERED: NITROGLYCERIN SL TABS 0.4 MG TAB SUBLINGUAL PRN (14:36)
[2018-10-24] MEDS ORDERED: ALBUTEROL NEBULIZED 2.5 MG/3 ML INHALATION PRN (14:36)
[2018-10-24] MEDS ORDERED: VANCOMYCIN IV PER PHARMACY 1 EACH MISC MISCELLANE PRN (14:40)
[2018-10-24] MEDS: IPRATROPIUM-ALBUTEROL 3 ML NEB INHALATION SCH ×3 (15:18→20:08)
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
[2018-10-24] MEDS: VANCOMYCIN 1,500 MG in SODIUM CHLORIDE 0.9% 250 ML IVPB SCH (17:26)
[2018-10-24 17:35] LABS: Glucose,Whole Blood 118 mg/dL (75-99)
[2018-10-24] MEDS ORDERED: Magnesium Replacement Protocol 1 EACH MISC MISCELLANE PRN (17:53)
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
[2018-10-24] MEDS: INSULIN ASPART (NovoLOG) 100 UNIT/ML VIAL SQ SCH (18:50)
[2018-10-24] MEDS: MAGNESIUM SULFATE-D5W PMX 1 GM in DEXTROSE/WATER 1 100ML.BAG IVPB SCH ×2 (18:50→23:37)
[2018-10-24] MEDS: GABAPENTIN 400 MG CAP PO SCH ×2 (18:50→23:36)
[2018-10-24] MEDS: HYDROcodone/APAP 10-325MG 1 EACH TAB PO PRN ×2 (19:08→23:36)
[2018-10-24] MEDS: BUDESONIDE 0.5 MG/2 ML NEBU INHALATION SCH (20:07)
[2018-10-24] MEDS ORDERED: HYDROCORTISONE 10 MG TAB PO SCH (21:00)
[2018-10-24] MEDS ORDERED: NON-FORMULARY DRUG (Omeprazole [Prilosec] 20 MG) PO SCH (21:00)
[2018-10-24] MEDS: ATORVASTATIN 40 MG TAB PO SCH (23:35)
[2018-10-24] MEDS: APIXABAN 5 MG TAB PO SCH (23:35)
[2018-10-24] MEDS: METOPROLOL TARTRATE 25 MG TAB PO SCH (23:35)
[2018-10-24] MEDS: INSULIN DETEMIR (LEVEMIR) 100 UNIT/ML SYR SQ SCH (23:35)
[2018-10-24] MEDS: DULoxetine HCL 30 MG CAPSULE.DR PO SCH (23:35)
[2018-10-24] MEDS: HYDROCORTISONE SUCCINATE 100 MG/2 ML VIAL IV SCH (23:36)
[2018-10-24] MEDS: PIPERACILLIN-TAZOBACTAM 3.375 GM in SODIUM CHLORIDE 0.9% 100 ML IVPB SCH (23:37)
[2018-10-24] MEDS: LEVOTHYROXINE 50 MCG TAB PO SCH (23:37)
[2018-10-24 23:41] LABS: Glucose,Whole Blood 149 mg/dL (75-99)
[2018-10-25] MEDS: MAGNESIUM SULFATE-D5W PMX 1 GM in DEXTROSE/WATER 1 100ML.BAG IVPB SCH (00:37)
[2018-10-25] MEDS: BUDESONIDE 0.5 MG/2 ML NEBU INHALATION SCH ×2 (04:58→19:59)
[2018-10-25] MEDS: IPRATROPIUM-ALBUTEROL 3 ML NEB INHALATION SCH ×4 (04:59→19:59)
[2018-10-25 06:24] LABS: Anisocytosis Moderate; Basophils % (A) 0 %; Eosinophils % (A) 0 %; HCT 29.3 % (39.0-53.0); HGB 8.3 gm/dL (13.0-17.5); Hypochromasia Marked; Lymphocytes # (A) 0.4 k/uL (1.0-4.8); Lymphocytes % (A) 3 %; MCH 25.3 pg (25.0-35.0); MCHC 28.4 g/dL (31.0-37.0); MCV 89.1 fL (80.0-100.0); Mean Platelet Volume 8.3; Microcytosis Slight; Monocytes # (A) 0.5 k/uL (0-1.0); Monocytes % (A) 4 %; Neutrophils # (A) 12.1 k/uL (1.3-7.7); Neutrophils % (A) 92 %; Platelet Count 211 k/uL (150-450); RBC 3.29 m/uL (4.30-5.90); RDW 20.5 % (11.5-15.5); WBC 13.1 k/uL (3.8-10.6)
[2018-10-25] MEDS: SODIUM CHLORIDE 0.9% 1,000 ML IV SCH ×2 (06:31→14:34)
[2018-10-25] MEDS: HYDROcodone/APAP 10-325MG 1 EACH TAB PO PRN ×4 (06:40→20:25)
[2018-10-25] MEDS: PIPERACILLIN-TAZOBACTAM 3.375 GM in SODIUM CHLORIDE 0.9% 100 ML IVPB SCH ×3 (06:41→23:43)
[2018-10-25 06:47] LABS: Calcium 7.9 mg/dL (8.4-10.2); Magnesium 2.4 mg/dL (1.6-2.3); Potassium 4.4 mmol/L (3.5-5.1)
--- NOTE | 2018-10-25 07:07 | XR ---
EXAMINATION TYPE: XR chest 1V portable DATE OF EXAM: 10/25/2018 CLINICAL HISTORY: Difficulty breathing progress study. TECHNIQUE: Single AP portable upright view of the chest is obtained. COMPARISON: None. FINDINGS: Sternotomy wires are present. Left basilar airspace disease is evident. No pleural effusion or pneumothorax. Osseous structures are intact. IMPRESSION: Left basilar airspace disease. Infectious etiology such as pneumonia is favored.
[2018-10-25 07:08] LABS: Glucose,Whole Blood 151 mg/dL (75-99)
[2018-10-25] MEDS ORDERED: HYDROCORTISONE 10 MG TAB PO SCH (07:30)
[2018-10-25] MEDS: VANCOMYCIN 1,500 MG in SODIUM CHLORIDE 0.9% 250 ML IVPB SCH ×2 (08:36→23:43)
[2018-10-25] MEDS: HYDROCORTISONE SUCCINATE 100 MG/2 ML VIAL IV SCH ×3 (08:37→23:42)
[2018-10-25] MEDS: METOPROLOL TARTRATE 25 MG TAB PO SCH ×2 (08:38→20:25)
[2018-10-25] MEDS: LORATADINE 10 MG TAB PO SCH (08:38)
[2018-10-25] MEDS: APIXABAN 5 MG TAB PO SCH ×2 (08:38→20:25)
[2018-10-25] MEDS: PANTOPRAZOLE 40 MG/10 ML VIAL IV SCH (08:38)
[2018-10-25] MEDS: DULoxetine HCL 30 MG CAPSULE.DR PO SCH ×2 (08:39→21:04)
[2018-10-25] MEDS: GABAPENTIN 400 MG CAP PO SCH ×4 (08:52→20:25)
[2018-10-25] MEDS: INSULIN ASPART (NovoLOG) 100 UNIT/ML VIAL SQ SCH ×3 (08:52→17:45)
--- NOTE | 2018-10-25 09:50 | CONS ---
CONSULTATION DATE OF SERVICE: 10/24/2018. REASON FOR CONSULTATION: Sepsis and pneumonia. HISTORY OF PRESENT ILLNESS: The patient is a 58-year-old male with past medical history significant for multiple admissions to this facility with pneumonia and has grown MRSA on multiple occasions. The patient has been brought to the ER at [facility] this morning with the patient complaining of fever and weakness along with shortness of breath and confusion. Apparently his symptoms had been going on for a day or two before the patient has been brought into the hospital. On arrival to the ER, the patient has been running a fever 102 degrees Fahrenheit. The patient was tachypneic and did have elevated white count 12.9. The patient did have influenza PCR that has been negative. The patient did have a chest x-ray which shows new left basilar opacities suspicious for pneumonia. The patient has been admitted to ICU. Patient was started on Zosyn and Levaquin. Vancomycin was recommended and of Levaquin. Infectious disease was consulted for further recommendation regarding antibiotic therapy. Most of the information has been obtained from thorough review of the chart as the patient at time of my evaluation has been obtunded and unable to provide any history. REVIEW OF SYSTEMS: Could not be reliably obtained. The positive points have been mentioned in HPI. PAST MEDICAL HISTORY: Significant for diabetes mellitus, heart failure, atrial fibrillation, sleep apnea, IA, shingles and recurrent MRSA pneumonia. PAST SURGICAL HISTORY: Cholecystectomy, coronary bypass grafting, PTCA with stent, hernia repair, tonsillectomy, coronary artery bypass grafting. SOCIAL HISTORY: Remote history of smoking. No drinking or drug use. FAMILY HISTORY: Mother with history of breast cancer, hypertension. Father history of pulmonary fibrosis and aneurysm along with lung cancer. ALLERGIES: TO OXYCODONE. MEDICATION: Medications include the patient is currently on Vancomycin 250 mg q.6h, Zosyn 3.375 g q.8 hours, Protonix, Nitrostat, Lopressor, Claritin, Synthroid, Levemir, NovoLog, Solu- Cortef, Neurontin, Cymbalta, Pulmicort, Lipitor, Eliquis, DuoNeb and Ventolin. PHYSICAL EXAMINATION: Blood pressure 104/56, pulse of 66, temperature of 98 degrees, T-max of 102. He is 97% on 2 L nasal cannula. General description is a middle-aged male lying in bed in no distress with no tachypnea or accessory muscles of respiration use. HEENT: Shows pallor. No scleral icterus. Oral mucosal membranes are dry. No pharyngeal erythema or thrush. Neck: Trachea central. No thyromegaly. LUNGS: Unlabored breathing. Decreased breath sounds at the bases. No wheeze or crackles. Heart S1, S2. Regular rate and rhythm. ABDOMEN: Soft, no tenderness. No guarding. No rigidity. No organomegaly. Extremities: No edema of the feet. Skin examination: No rash or mass palpable. Neurological: The patient is currently obtunded. Neurological exam could not be completed. LABS: Hemoglobin is 9.3 with white count 12.9, BUN of 26, creatinine is 1.25. The chest x- ray with left lower lobe pneumonia. DIAGNOSTIC IMPRESSION AND PLAN: Patient admitted to the hospital with sepsis in a patient who did have a fever with tachypnea, source is likely left lower lobe pneumonia in this patient who did have a history of recurrent pneumonia and has gotten MRSA in the past, could be either MRSA or resistant gram-negative pathogen. PLAN: 1. We will try to obtain sputum for Gram stain culture and sensitivity. 2. Immunosuppressive workup for the recurrent episodes of pneumonia suggesting deficiency. 3. Vancomycin, pharmacy to dose, target of 15. 4. Zosyn 3.375 g every eight hours. 5. We will follow up on clinical condition and culture to further adjust medication if needed. Thank you for this consultation. We will follow this patient along with you. MMODL / IJN: [id number] /
[2018-10-25] MEDS: INSULIN DETEMIR (LEVEMIR) 100 UNIT/ML SYR SQ SCH ×2 (10:10→21:04)
[2018-10-25] MEDS ORDERED: LEVOFLOXACIN 750MG-D5W PMX 750 MG in DEXTROSE/WATER 1 150ML.BAG IVPB SCH (11:00)
[2018-10-25 12:11] LABS: Glucose,Whole Blood 206 mg/dL (75-99)
--- NOTE | 2018-10-25 16:04 | P.PN ---
Subjective Progress Note Date: 10/25/18 Principal diagnosis: Acute left lower lobe pneumonia. 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 A quick review of the records show that the patient has pleasant multiple occasions due to pneumonia is the most recent of which was a right lung pneumona. The patient has had previous bronchoscopies and he has been shown to have Radha in his sputum in addition to previous history of MRSA and gram- negative microorganisms. He is currently living at home with his . His overall performance and functional status is poor. He has obstructive sleep apnea utilizes a CPAP at home. He is coming in with generalized weakness and fevers and some diaphoresis. White cell count in the emergency department was at 12.9. There was a screen was negative. The patient was given a chest x-ray that showed a left lower lobe pneumonia. For that reason he was started on examination Zosyn and vancomycin and was admitted to the hospital. He was moved to the intensive care unit as the patient was running a lower blood pressure. He was given 2 L of IV bolus with normal saline. I was told that he was also having some altered mentation which essentially recovered as the patient was fully alert and awake at the time of my evaluation. Patient is hemodynamically stable on no pressors. He is utilizing a BiPAP which was set at a pressure of 14/7 cm of water with an FiO2 of 40%. Note that the patient's been followed to have a lower hemoglobin levels. Infectious disease consultations were obtained and the patient's been supplemented with IVIG by Dr. Hardin. Most recent IgG levels from 10/09/2018 was above 900. The patient is seen again today 10/25/2018 in follow-up in the intensive care unit. He is awake and alert in no acute distress. He is maintaining good O2 saturations in the 90s and 3 L/m per nasal cannula. He is afebrile. Hemodynamically stable. Blood culture reveals no growth to date. White count 13.1. Hemoglobin 8.3. Creatinine 1.20. He remains on bronchodilators, IV Solu -Cortef and antibiotics in the form of vancomycin and Zosyn. Today's chest x- ray continues to show left basilar airspace disease. Objective - Vital Signs Vital signs: Vital Signs Temp 99.4 F 10/25/18 15:00 Pulse 75 10/25/18 15:00 Resp 16 10/25/18 15:00 BP 121/67 10/25/18 15:00 Pulse Ox 97 10/25/18 15:00 Intake & Output 10/24/18 10/25/18 10/25/18 18:59 06:59 18:59 Intake Total 550 1700 650 Output Total 1025 275 Balance 550 675 375 Weight 90.718 kg 98.4 kg Intake: IV 1500 650 Magnesium Sulfate-D5w Pmx 300 1 gm In Dextrose/Water 1 100ml.bag @ 100 mls/hr IVPB Q1H [facility] Rx#: [id number] Piperacillin-Tazobactam 3 100 .375 gm In Sodium Chloride 0.9% 100 ml @ 25 mls/hr IVPB Q8H [facility] Rx#: [id number] Sodium Chloride 0.9% 1, 1100 400 000 ml @ 20 mls/hr IV . Q24H [facility] Rx#:[id number] Vancomycin 1,500 mg In 250 Sodium Chloride 0.9% 250 ml @ 125 mls/hr IVPB Q16H [facility] Rx#:[id number] Intake, IV Titration 550 200 Amount Magnesium Sulfate-D5w Pmx 100 1 gm In Dextrose/Water 1 100ml.bag @ 100 mls/hr IVPB Q1H [facility] Rx#: [id number] Sodium Chloride 0.9% 1, 300 100 000 ml @ 20 mls/hr IV . Q24H [facility] Rx#:[id number] Vancomycin 1,500 mg In 250 Sodium Chloride 0.9% 250 ml @ 125 mls/hr IVPB Q16H [facility] Rx#:[id number] Output: Urine 1025 275 Other: Voiding Method Indwelling Catheter - Exam GENERAL: Patient is awake and alert and able to speak sentences. 3 L nasal cannula Head exam was generally normal. There was no scleral icterus or corneal arcus. Mucous membranes were moist. HEENT: Pupils are round and equally reacting to light. EOMI. No scleral icterus. No conjunctival pallor. Normocephalic, atraumatic. No pharyngeal erythema. No thyromegaly. The patient is a Mallampati class IV with significant crowding of the posterior oropharynx. CARDIOVASCULAR: S1 and S2 present. No murmurs, rubs, or gallops. PULMONARY: Rhonchus breath sounds bibasilar crackles and expiratory wheezing, crackles also appreciated the left lung base. ABDOMEN: Soft, nontender, nondistended, normoactive bowel sounds. No palpable organomegaly. MUSCULOSKELETAL: No joint swelling or deformity. EXTREMITIES: No cyanosis, clubbing, or pedal edema. NEUROLOGICAL: Gross neurological examination did not reveal any focal deficits. The patient is no focal neurological deficit at this point in time. SKIN: No rashes. Examination of the skin revealed no evidence of significant rashes, suspicious appearing nevi or other concerning lesions. - Labs CBC & Chem 7: 10/25/18 05:27 10/25/18 05:27 Labs: Abnormal Lab Results - Last 24 Hours (Table) 10/24/18 10/24/18 10/25/18 Range/Units 17:23 23:29 05:27 WBC (3.8-10.6) k/uL RBC (4.30-5.90) m/uL Hgb (13.0-17.5) gm/dL Hct (39.0-53.0) % MCHC (31.0-37.0) g/dL RDW (11.5-15.5) % Neutrophils # (1.3-7.7) k/uL Lymphocytes # (1.0-4.8) k/uL BUN 40 H (9-20) mg/dL Glucose 142 H (74-99) mg/dL POC Glucose (mg/dL) 118 H 149 H (75-99) mg/dL Calcium 7.9 L (8.4-10.2) mg/dL Magnesium 2.4 H (1.6-2.3) mg/dL 10/25/18 10/25/18 10/25/18 Range/Units 05:27 06:55 11:51 WBC 13.1 H (3.8-10.6) k/uL RBC 3.29 L (4.30-5.90) m/uL Hgb 8.3 L (13.0-17.5) gm/dL Hct 29.3 L (39.0-53.0) % MCHC 28.4 L (31.0-37.0) g/dL RDW 20.5 H (11.5-15.5) % Neutrophils # 12.1 H (1.3-7.7) k/uL Lymphocytes # 0.4 L (1.0-4.8) k/uL BUN (9-20) mg/dL Glucose (74-99) mg/dL POC Glucose (mg/dL) 151 H 206 H (75-99) mg/dL Calcium (8.4-10.2) mg/dL Magnesium (1.6-2.3) mg/dL Microbiology - Last 24 Hours (Table) 10/24/18 08:25 Blood Culture - Preliminary Blood No Growth after 24 hours Assessment and Plan Assessment: Assessment 1 acute left lower lobe pneumonia 2 history of recurrent pneumonias bilateral with an underlying hemoglobin deficiency the patient is currently on IVIG replacement on outpatient basis 3 COPD with chronic hypoxic respiratory failure 4 obstructive sleep apnea 5 CHF with chronic diastolic dysfunction 6 diabetes mellitus type 2 with peripheral neuropathy, insulin-dependent 7 gait dysfunction and the patient has been unable to ambulate and his been essentially sedentary 8 paroxysmal atrial fibrillation maintained on anticoagulation with Ginais him a current rhythm is sinus 9 hyperlipidemia 10 history of neuroendocrine tumor 11 morbid obesity 12 hypothyroidism 13 history of chronic adrenal insufficiency maintained on hydrocortisone outpatient basis 14 chronic anemia 15 chronic stage II to 3 kidney disease 16 history of hypogammaglobulinemia, possibly a component of acquired hypogammaglobulinemia maintained on IVIG based on the current history of pneumonias Plan we'll and The patient was seen and evaluated by Dr. Lopez. He was cleared for transfer out of the intensive care unit today. We'll continue with his current treatment plan. Continue antibiotics in the form of vancomycin and Zosyn. Continue bronchodilators and steroids. Increase his activity as tolerated. We will continue to follow. I, the cosigning physician, performed a history & physical examination of the patient. Lungs sounds few scattered rhonchi more so on the left base. Diminished.. Maintaining good O2 saturations in the 90s on 3 L/m per nasal cannula. I discussed the assessment and plan of care with my nurse practitioner , Cheryl Stearns. I attest to the above note as dictated by her.
[2018-10-25 16:55] LABS: Glucose,Whole Blood 202 mg/dL (75-99)
--- NOTE | 2018-10-25 17:37 | P.PN ---
Subjective Patient is admitted for left lower lobe pneumonia present on broad-spectrum antibiotics patient the has immune globulin deficiency and does receive IVIG patient has multiple episodes of pneumonia because of which patient is on broad- spectrum antibiotics Zosyn and vancomycin sputum cultures are still pending. Patient looks much better today patient is on 92 L of oxygen today very minimal expiratory wheezing on exam. Constitutional: Denied any fatigue denied any fever. Cardio vascular: denied any chest pain, palpitations Gastrointestinal denied any nausea vomiting Pulmonary: As mentioned in the interval history Neurologic denied any new focal deficits All inpatient medications were reviewed and appropriate changes in these medications as dictated in the interval history and assessment and plan. Objective - Vital Signs Vital signs: Vital Signs Temp 99.4 F 10/25/18 15:00 Pulse 76 10/25/18 16:31 Resp 16 10/25/18 16:21 BP 121/67 10/25/18 15:00 Pulse Ox 97 10/25/18 15:00 Intake & Output 10/24/18 10/25/18 10/25/18 18:59 06:59 18:59 Intake Total 550 1700 690 Output Total 1025 275 Balance 550 675 415 Weight 90.718 kg 98.4 kg Intake: IV 1500 690 Magnesium Sulfate-D5w Pmx 300 1 gm In Dextrose/Water 1 100ml.bag @ 100 mls/hr IVPB Q1H [facility] Rx#: [id number] Piperacillin-Tazobactam 3 100 .375 gm In Sodium Chloride 0.9% 100 ml @ 25 mls/hr IVPB Q8H [facility] Rx#: [id number] Sodium Chloride 0.9% 1, 1100 440 000 ml @ 20 mls/hr IV . Q24H [facility] Rx#:[id number] Vancomycin 1,500 mg In 250 Sodium Chloride 0.9% 250 ml @ 125 mls/hr IVPB Q16H [facility] Rx#:[id number] Intake, IV Titration 550 200 Amount Magnesium Sulfate-D5w Pmx 100 1 gm In Dextrose/Water 1 100ml.bag @ 100 mls/hr IVPB Q1H [facility] Rx#: [id number] Sodium Chloride 0.9% 1, 300 100 000 ml @ 20 mls/hr IV . Q24H [facility] Rx#:[id number] Vancomycin 1,500 mg In 250 Sodium Chloride 0.9% 250 ml @ 125 mls/hr IVPB Q16H [facility] Rx#:[id number] Output: Urine 1025 275 Other: Voiding Method Indwelling Catheter - Exam PHYSICAL EXAMINATION: GENERAL: Alert oriented 3 and looks much better compared to yesterday is on 3 L of oxygen not in respiratory distress HEENT: Pupils are round and equally reacting to light. EOMI. No scleral icterus. No conjunctival pallor. Normocephalic, atraumatic. No pharyngeal erythema. No thyromegaly. CARDIOVASCULAR: S1 and S2 present. No murmurs, rubs, or gallops. PULMONARY: Rhonchus breath sounds bibasilar crackles, expiratory wheezing improved ABDOMEN: Soft, nontender, nondistended, normoactive bowel sounds. No palpable organomegaly. MUSCULOSKELETAL: No joint swelling or deformity. EXTREMITIES: No cyanosis, clubbing, or pedal edema. NEUROLOGICAL: Gross neurological examination did not reveal any focal deficits. SKIN: No rashes. - Labs CBC & Chem 7: 10/25/18 05:27 10/25/18 05:27 Labs: Abnormal Lab Results - Last 24 Hours (Table) 10/24/18 10/24/18 10/25/18 Range/Units 17:23 23:29 05:27 WBC (3.8-10.6) k/uL RBC (4.30-5.90) m/uL Hgb (13.0-17.5) gm/dL Hct (39.0-53.0) % MCHC (31.0-37.0) g/dL RDW (11.5-15.5) % Neutrophils # (1.3-7.7) k/uL Lymphocytes # (1.0-4.8) k/uL BUN 40 H (9-20) mg/dL Glucose 142 H (74-99) mg/dL POC Glucose (mg/dL) 118 H 149 H (75-99) mg/dL Calcium 7.9 L (8.4-10.2) mg/dL Magnesium 2.4 H (1.6-2.3) mg/dL 10/25/18 10/25/18 10/25/18 Range/Units 05:27 06:55 11:51 WBC 13.1 H (3.8-10.6) k/uL RBC 3.29 L (4.30-5.90) m/uL Hgb 8.3 L (13.0-17.5) gm/dL Hct 29.3 L (39.0-53.0) % MCHC 28.4 L (31.0-37.0) g/dL RDW 20.5 H (11.5-15.5) % Neutrophils # 12.1 H (1.3-7.7) k/uL Lymphocytes # 0.4 L (1.0-4.8) k/uL BUN (9-20) mg/dL Glucose (74-99) mg/dL POC Glucose (mg/dL) 151 H 206 H (75-99) mg/dL Calcium (8.4-10.2) mg/dL Magnesium (1.6-2.3) mg/dL 10/25/18 Range/Units 16:29 WBC (3.8-10.6) k/uL RBC (4.30-5.90) m/uL Hgb (13.0-17.5) gm/dL Hct (39.0-53.0) % MCHC (31.0-37.0) g/dL RDW (11.5-15.5) % Neutrophils # (1.3-7.7) k/uL Lymphocytes # (1.0-4.8) k/uL BUN (9-20) mg/dL Glucose (74-99) mg/dL POC Glucose (mg/dL) 202 H (75-99) mg/dL Calcium (8.4-10.2) mg/dL Magnesium (1.6-2.3) mg/dL Microbiology - Last 24 Hours (Table) 10/24/18 08:25 Blood Culture - Preliminary Blood No Growth after 24 hours Assessment and Plan Plan: -Sepsis possibly secondary to pneumonia patient was treated for healthcare associated pneumonia will start her on vancomycin and Zosyn and infectious disease will be consulted patient has multiple episodes of pneumonia in the past. All cultures are pending -Acute on chronic hypercapnic and hypoxic respiratory failure possibly secondary to pneumonia with an infiltrate in the right lower lobe along with COPD exacerbation, obstructive sleep apnea be a is contributing factor. Patient underwent immunoglobin testing -Type 2 diabetes mellitus -Congestive heart failure chronic systolic dysfunction does not appear to be in acute exacerbation at this time but patient need to be monitored closely since he is receiving IV fluids -Coronary artery disease with previous CABG in the past -Proximal A. fib and patient is on Eliquis which will be continued -Hyperlipidemia -History of neuroendocrine tumor follow-up as an outpatient for this -Osteoclasts #Hypothyroidism -Possible sleep apnea obesity
[2018-10-25] MEDS: ATORVASTATIN 40 MG TAB PO SCH (20:25)
[2018-10-25] MEDS: LEVOTHYROXINE 50 MCG TAB PO SCH (20:25)
[2018-10-25 20:41] LABS: Glucose,Whole Blood 230 mg/dL (75-99)
--- NOTE | 2018-10-25 23:47 | PN ---
PROGRESS NOTE DATE OF SERVICE: 10/25/2018. REASON FOR FOLLOWUP: Pneumonia, possible nosocomial pathogen. INTERVAL HISTORY: The patient is currently afebrile. His breathing has improved. Mentation has improved as well. The patient transferred to the ICU. The patient denies having any chest pain. His cough is mostly dry in nature. No nausea, no vomiting. No abdominal pain. No diarrhea. PHYSICAL EXAMINATION: Blood pressure 128/86, pulse of 82, temperature 98.7. He is 98% on 3 L nasal cannula. General description is a middle-aged male lying in bed in no distress. Respiratory system: Unlabored breathing with decreased breath sounds in the bases. No wheeze. Heart S1-S2 regular rate and rhythm. Abdomen soft. No tenderness. Extremities: No edema of the feet. LABS: Hemoglobin 8.8, white count 13.9, BUN of 40, and creatinine 1.20. Blood culture has been negative so far. Sputum provided, cultures currently pending. DIAGNOSTIC IMPRESSION AND PLAN: Patient admitted to the hospital with sepsis, source is likely left lower lobe pneumonia. This patient did have history of recurrent pneumonias and previous history of MRSA infection. Patient to continue with vancomycin and Zosyn while waiting for the culture to finalize. Continue supportive care. MMODL / IJN: [id number] /
[2018-10-26] MEDS: HYDROcodone/APAP 10-325MG 1 EACH TAB PO PRN ×5 (00:50→22:19)
[2018-10-26 07:05] LABS: Glucose,Whole Blood 210 mg/dL (75-99)
[2018-10-26 07:20] LABS: Anisocytosis Moderate; Basophils % (A) 0 %; Eosinophils % (A) 0 %; HCT 30.2 % (39.0-53.0); HGB 8.8 gm/dL (13.0-17.5); Hypochromasia Marked; Lymphocytes # (A) 0.5 k/uL (1.0-4.8); Lymphocytes % (A) 6 %; MCH 26.1 pg (25.0-35.0); MCHC 29.1 g/dL (31.0-37.0); MCV 89.7 fL (80.0-100.0); Microcytosis Slight; Monocytes # (A) 0.4 k/uL (0-1.0); Monocytes % (A) 4 %; Neutrophils # (A) 8.4 k/uL (1.3-7.7); Neutrophils % (A) 89 %; Platelet Count 222 k/uL (150-450); RBC 3.37 m/uL (4.30-5.90); RDW 20.2 % (11.5-15.5); WBC 9.5 k/uL (3.8-10.6)
[2018-10-26 07:31] LABS: Anion Gap 8 mmol/L; Blood Urea Nitrogen 39 mg/dL (9-20); Calcium 8.4 mg/dL (8.4-10.2); Carbon Dioxide 29 mmol/L (22-30); Chloride 107 mmol/L (98-107); Glucose 189 mg/dL (74-99); Potassium 4.1 mmol/L (3.5-5.1); Sodium 144 mmol/L (137-145)
[2018-10-26] MEDS: BUDESONIDE 0.5 MG/2 ML NEBU INHALATION SCH ×2 (07:41→20:32)
[2018-10-26] MEDS: IPRATROPIUM-ALBUTEROL 3 ML NEB INHALATION SCH ×4 (07:41→20:32)
[2018-10-26] MEDS: PANTOPRAZOLE 40 MG/10 ML VIAL IV SCH (08:29)
[2018-10-26] MEDS: INSULIN ASPART (NovoLOG) 100 UNIT/ML VIAL SQ SCH ×5 (08:29→20:57)
[2018-10-26] MEDS: PIPERACILLIN-TAZOBACTAM 3.375 GM in SODIUM CHLORIDE 0.9% 100 ML IVPB SCH ×2 (08:29→17:41)
[2018-10-26] MEDS: LORATADINE 10 MG TAB PO SCH (08:30)
[2018-10-26] MEDS: METOPROLOL TARTRATE 25 MG TAB PO SCH ×2 (08:30→20:58)
[2018-10-26] MEDS: GABAPENTIN 400 MG CAP PO SCH ×4 (08:30→20:58)
[2018-10-26] MEDS: APIXABAN 5 MG TAB PO SCH ×2 (08:30→20:58)
[2018-10-26] MEDS: HYDROCORTISONE SUCCINATE 100 MG/2 ML VIAL IV SCH ×2 (08:30→17:40)
[2018-10-26] MEDS: DULoxetine HCL 30 MG CAPSULE.DR PO SCH ×2 (08:37→20:58)
[2018-10-26] MEDS: INSULIN DETEMIR (LEVEMIR) 100 UNIT/ML SYR SQ SCH ×2 (10:23→20:58)
[2018-10-26 12:05] LABS: Glucose,Whole Blood 281 mg/dL (75-99)
--- NOTE | 2018-10-26 14:06 | P.PN ---
Subjective Patient is admitted for left lower lobe pneumonia present on broad-spectrum antibiotics patient the has immune globulin deficiency and does receive IVIG patient has multiple episodes of pneumonia because of which patient is on broad- spectrum antibiotics Zosyn and vancomycin sputum cultures are still pending. Patient looks much better today patient is on 92 L of oxygen today very minimal expiratory wheezing on exam. 10/26/2018 Patient can use to get better no overnight events Constitutional: Denied any fatigue denied any fever. Cardio vascular: denied any chest pain, palpitations Gastrointestinal denied any nausea vomiting Pulmonary: As mentioned in the interval history Neurologic denied any new focal deficits All inpatient medications were reviewed and appropriate changes in these medications as dictated in the interval history and assessment and plan. Objective - Vital Signs Vital signs: Vital Signs Temp 98.0 F 10/26/18 08:26 Pulse 78 10/26/18 12:04 Resp 16 10/26/18 08:26 BP 129/77 10/26/18 08:26 Pulse Ox 94 L 10/26/18 08:26 Intake & Output 10/25/18 10/26/18 10/26/18 18:59 06:59 18:59 Intake Total 690 890 Output Total 275 1425 280 Balance 415 -535 -280 Intake: IV 690 550 Piperacillin-Tazobactam 3 100 .375 gm In Sodium Chloride 0.9% 100 ml @ 25 mls/hr IVPB Q8H [facility] Rx#: [id number] Sodium Chloride 0.9% 1, 440 200 000 ml @ 20 mls/hr IV . Q24H [facility] Rx#:[id number] Vancomycin 1,500 mg In 250 250 Sodium Chloride 0.9% 250 ml @ 125 mls/hr IVPB Q16H [facility] Rx#:[id number] Oral 340 Output: Urine 275 1425 280 Coude 1425 Other: Voiding Method Indwelling Catheter - Exam PHYSICAL EXAMINATION: GENERAL: Alert oriented 3 and looks much better compared to yesterday is on 3 L of oxygen not in respiratory distress HEENT: Pupils are round and equally reacting to light. EOMI. No scleral icterus. No conjunctival pallor. Normocephalic, atraumatic. No pharyngeal erythema. No thyromegaly. CARDIOVASCULAR: S1 and S2 present. No murmurs, rubs, or gallops. PULMONARY: Rhonchus breath sounds bibasilar crackles, expiratory wheezing improved ABDOMEN: Soft, nontender, nondistended, normoactive bowel sounds. No palpable organomegaly. MUSCULOSKELETAL: No joint swelling or deformity. EXTREMITIES: No cyanosis, clubbing, or pedal edema. NEUROLOGICAL: Gross neurological examination did not reveal any focal deficits. SKIN: No rashes. - Labs CBC & Chem 7: 10/26/18 06:37 10/26/18 06:37 Labs: Abnormal Lab Results - Last 24 Hours (Table) 10/25/18 10/25/18 10/26/18 Range/Units 16:29 20:30 06:37 RBC 3.37 L (4.30-5.90) m/uL Hgb 8.8 L (13.0-17.5) gm/dL Hct 30.2 L (39.0-53.0) % MCHC 29.1 L (31.0-37.0) g/dL RDW 20.2 H (11.5-15.5) % Neutrophils # 8.4 H (1.3-7.7) k/uL Lymphocytes # 0.5 L (1.0-4.8) k/uL BUN (9-20) mg/dL Glucose (74-99) mg/dL POC Glucose (mg/dL) 202 H 230 H (75-99) mg/dL 10/26/18 10/26/18 10/26/18 Range/Units 06:37 06:52 11:51 RBC (4.30-5.90) m/uL Hgb (13.0-17.5) gm/dL Hct (39.0-53.0) % MCHC (31.0-37.0) g/dL RDW (11.5-15.5) % Neutrophils # (1.3-7.7) k/uL Lymphocytes # (1.0-4.8) k/uL BUN 39 H (9-20) mg/dL Glucose 189 H (74-99) mg/dL POC Glucose (mg/dL) 210 H 281 H (75-99) mg/dL Microbiology - Last 24 Hours (Table) 10/25/18 10:30 Gram Stain - Preliminary Sputum Sputum Culture - Preliminary Gram Neg Bacilli 10/24/18 08:25 Blood Culture - Preliminary Blood No Growth after 48 hours 10/25/18 19:30 Urine Culture - Preliminary Urine,Catheterized Assessment and Plan Plan: -Sepsis possibly secondary to pneumonia patient was treated for healthcare associated pneumonia will start her on vancomycin and Zosyn and infectious disease will be consulted patient has multiple episodes of pneumonia in the past. All cultures are pending -Acute on chronic hypercapnic and hypoxic respiratory failure possibly secondary to pneumonia with an infiltrate in the right lower lobe along with COPD exacerbation, obstructive sleep apnea be a is contributing factor. Patient underwent immunoglobin testing -Type 2 diabetes mellitus -Congestive heart failure chronic systolic dysfunction does not appear to be in acute exacerbation at this time but patient need to be monitored closely since he is receiving IV fluids -Coronary artery disease with previous CABG in the past -Proximal A. fib and patient is on Eliquis which will be continued -Hyperlipidemia -History of neuroendocrine tumor follow-up as an outpatient for this -Osteoclasts #Hypothyroidism -Possible sleep apnea obesity
--- NOTE | 2018-10-26 14:15 | XR ---
EXAMINATION TYPE: XR chest 1V portable DATE OF EXAM: 10/26/2018 COMPARISON: 10/25/2018 INDICATION: Short of breath TECHNIQUE: Frontal and lateral views of the chest are obtained. FINDINGS: The heart size is mildly prominent. The pulmonary vasculature is normal. There is a developing lingular infiltrate with silhouetting the left heart border. This is worsening from comparison. Additionally, there is increasing opacity through the periphery of the right midlung which could be pneumonia or atelectasis. IMPRESSION: 1. Developing and worsening of infiltrates in the right peripheral mid and lower lung field and withi n the lingula at the heart border. Correlate for pneumonia. Follow-up is recommended.
--- NOTE | 2018-10-26 15:06 | P.PN ---
Subjective Progress Note Date: 10/26/18 10/26/2018: Patient seen and examined covering for Dr. Morton. The patient states his breathing is much better. He is on 3 L nasal cannula. He states his cough is improving. He denies fevers and chills. Objective - Vital Signs Vital signs: Vital Signs Temp 98.0 F 10/26/18 08:26 Pulse 78 10/26/18 12:04 Resp 16 10/26/18 08:26 BP 129/77 10/26/18 08:26 Pulse Ox 94 L 10/26/18 08:26 Intake & Output 10/25/18 10/26/18 10/26/18 18:59 06:59 18:59 Intake Total 690 890 Output Total 275 1425 280 Balance 415 -535 -280 Intake: IV 690 550 Piperacillin-Tazobactam 3 100 .375 gm In Sodium Chloride 0.9% 100 ml @ 25 mls/hr IVPB Q8H [facility] Rx#: [id number] Sodium Chloride 0.9% 1, 440 200 000 ml @ 20 mls/hr IV . Q24H [facility] Rx#:[id number] Vancomycin 1,500 mg In 250 250 Sodium Chloride 0.9% 250 ml @ 125 mls/hr IVPB Q16H [facility] Rx#:[id number] Oral 340 Output: Urine 275 1425 280 [place] 1425 Other: Voiding Method Indwelling Catheter - Exam Gen.: Patient is alert and oriented 3, in no acute distress, obese neck line cardiovascular: Regular rate and rhythm, S1/S2 Lungs: Coarse breath sounds bilaterally Abdomen: Soft nontender nondistended positive bowel sounds Extremities:+ edema - Labs CBC & Chem 7: 10/26/18 06:37 10/26/18 06:37 Labs: Abnormal Lab Results - Last 24 Hours (Table) 10/25/18 10/25/18 10/26/18 Range/Units 16:29 20:30 06:37 RBC 3.37 L (4.30-5.90) m/uL Hgb 8.8 L (13.0-17.5) gm/dL Hct 30.2 L (39.0-53.0) % MCHC 29.1 L (31.0-37.0) g/dL RDW 20.2 H (11.5-15.5) % Neutrophils # 8.4 H (1.3-7.7) k/uL Lymphocytes # 0.5 L (1.0-4.8) k/uL BUN (9-20) mg/dL Glucose (74-99) mg/dL POC Glucose (mg/dL) 202 H 230 H (75-99) mg/dL 10/26/18 10/26/18 10/26/18 Range/Units 06:37 06:52 11:51 RBC (4.30-5.90) m/uL Hgb (13.0-17.5) gm/dL Hct (39.0-53.0) % MCHC (31.0-37.0) g/dL RDW (11.5-15.5) % Neutrophils # (1.3-7.7) k/uL Lymphocytes # (1.0-4.8) k/uL BUN 39 H (9-20) mg/dL Glucose 189 H (74-99) mg/dL POC Glucose (mg/dL) 210 H 281 H (75-99) mg/dL Microbiology - Last 24 Hours (Table) 10/25/18 10:30 Gram Stain - Preliminary Sputum Sputum Culture - Preliminary Gram Neg Bacilli 10/24/18 08:25 Blood Culture - Preliminary Blood No Growth after 48 hours 10/25/18 19:30 Urine Culture - Preliminary Urine,Catheterized Assessment and Plan Assessment: Left lower lobe pneumonia History of recurrent pneumonias bilateral, patient is currently on IVIG replacement on outpatient basis COPD with chronic hypoxic respiratory failure Obstructive sleep apnea CHF with chronic diastolic dysfunction Diabetes mellitus type 2 with peripheral neuropathy, insulin-dependent Paroxysmal atrial fibrillation maintained on anticoagulation with Eliquis him a current rhythm is sinus Hyperlipidemia History of neuroendocrine tumor Morbid obesity Hypothyroidism History of chronic adrenal insufficiency maintained on hydrocortisone outpatient basis Chronic anemia 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 Continue bronchodilators and steroids. Increase his activity as tolerated. IS and pulmonary hygiene Patient seen and examined covering for Dr. Morton
[2018-10-26] MEDS: SODIUM CHLORIDE 0.9% 1,000 ML IV SCH (15:15)
[2018-10-26] MEDS: VANCOMYCIN 1,500 MG in SODIUM CHLORIDE 0.9% 250 ML IVPB SCH (15:16)
[2018-10-26 17:11] LABS: Glucose,Whole Blood 327 mg/dL (75-99)
[2018-10-26 20:16] LABS: Glucose,Whole Blood 307 mg/dL (75-99)
[2018-10-26] MEDS: ATORVASTATIN 40 MG TAB PO SCH (20:58)
[2018-10-26] MEDS: LEVOTHYROXINE 50 MCG TAB PO SCH (20:58)
[2018-10-27] MEDS: PIPERACILLIN-TAZOBACTAM 3.375 GM in SODIUM CHLORIDE 0.9% 100 ML IVPB SCH ×2 (00:44→07:57)
[2018-10-27] MEDS: HYDROCORTISONE SUCCINATE 100 MG/2 ML VIAL IV SCH ×3 (00:44→15:36)
--- NOTE | 2018-10-27 05:12 | PN ---
PROGRESS NOTE DATE OF SERVICE: 10/26/2018. REASON FOR FOLLOW UP: Gram-negative pneumonia. INTERVAL HISTORY: The patient is currently afebrile. He has been breathing more comfortably. The patient denies having chest pain. Occasional cough. No nausea, no vomiting. No abdominal pain. No diarrhea. PHYSICAL EXAMINATION: Blood pressure 126/74 with a pulse of 73, temperature 98.2. She is 92% on 2 L nasal cannula. General description is a middle-aged male lying in bed in no distress. HEENT examination: Pallor. No scleral icterus. Lungs: Unlabored breath, coarse breath sounds at the bases. No wheeze. Heart S1, S2. Regular rate and rhythm. ABDOMEN: Soft. No tenderness. LABS: Hemoglobin 8.8, white count 9.5 with a BUN of 39, creatinine 0.98. DIAGNOSTIC IMPRESSION AND PLAN: Patient admitted to the hospital with sepsis pneumonia left lower lobe pneumonia. Sputum showing gram-negative. Waiting for ID sensitivity. Keep the patient on Zosyn. If no gram-positive. Vancomycin will be discontinued. Family present at bedside. Questions were answered. MMODL / IJN: [id number] /
[2018-10-27] MEDS ORDERED: VANCOMYCIN TROUGH DUE 1 EACH MISC MISCELLANE ONE (06:00)
[2018-10-27 07:10] LABS: Glucose,Whole Blood 219 mg/dL (75-99)
[2018-10-27 07:50] LABS: Anion Gap 5 mmol/L; Blood Urea Nitrogen 30 mg/dL (9-20); Calcium 8.7 mg/dL (8.4-10.2); Carbon Dioxide 30 mmol/L (22-30); Chloride 109 mmol/L (98-107); Glucose 198 mg/dL (74-99); Potassium 3.8 mmol/L (3.5-5.1); Sodium 144 mmol/L (137-145)
[2018-10-27] MEDS: VANCOMYCIN 1,500 MG in SODIUM CHLORIDE 0.9% 250 ML IVPB SCH (07:50)
[2018-10-27] MEDS: INSULIN ASPART (NovoLOG) 100 UNIT/ML VIAL SQ SCH ×7 (07:51→21:42)
[2018-10-27] MEDS: PANTOPRAZOLE 40 MG/10 ML VIAL IV SCH (07:51)
[2018-10-27] MEDS: METOPROLOL TARTRATE 25 MG TAB PO SCH ×2 (07:52→21:41)
[2018-10-27] MEDS: GABAPENTIN 400 MG CAP PO SCH ×4 (07:52→21:42)
[2018-10-27] MEDS: LORATADINE 10 MG TAB PO SCH (07:52)
[2018-10-27] MEDS: APIXABAN 5 MG TAB PO SCH ×2 (07:52→21:41)
[2018-10-27] MEDS: HYDROcodone/APAP 10-325MG 1 EACH TAB PO PRN ×4 (07:52→21:45)
[2018-10-27] MEDS: DULoxetine HCL 30 MG CAPSULE.DR PO SCH ×2 (07:53→21:45)
[2018-10-27] MEDS: INSULIN DETEMIR (LEVEMIR) 100 UNIT/ML SYR SQ SCH ×2 (08:15→21:42)
[2018-10-27] MEDS: BUDESONIDE 0.5 MG/2 ML NEBU INHALATION SCH ×2 (08:54→21:51)
[2018-10-27] MEDS: IPRATROPIUM-ALBUTEROL 3 ML NEB INHALATION SCH ×4 (08:54→21:52)
[2018-10-27 11:56] LABS: Glucose,Whole Blood 208 mg/dL (75-99)
[2018-10-27] MEDS: FUROSEMIDE 40 MG TAB PO SCH (13:14)
[2018-10-27] MEDS: SODIUM CHLORIDE 0.9% 1,000 ML IV SCH (13:15)
[2018-10-27 13:37] LABS: Hemoglobin A1C 7.5 % (4.0-6.0)
[2018-10-27] MEDS: PIOGLITAZONE 15 MG TAB PO SCH (15:37)
--- NOTE | 2018-10-27 15:54 | P.PN ---
Subjective Progress Note Date: 10/27/18 Principal diagnosis: Left lower lobe pneumonia, history of multiple pneumonia related to MRSA in the past, sleep disorder breathing and sleep apnea, COPD, congestive heart failure with chronic diastolic heart failure, type 2 diabetes mellitus, paroxysmal atrial fibrillation, dyslipidemia, history of neuroendocrine tumor, morbid obesity, hypothyroidism, history of adrenal insufficiency, stage III renal failure, hypogammaglobulinemia 10/27/2018, patient seen eval examined during the rounds clinically doing slightly better cough congestion shortness of breath is improved patient remains on broad-spectrum antibiotics as well as anticoagulation, labs reviewed medications reviewed 58-year-old male patient, known history of COPD with chronic hypoxic respiratory failure in addition to multiple medical problems and comorbidities, The patient has had previous bronchoscopies and he has been shown to have Radha in his sputum in addition to previous history of MRSA and gram-negative microorganisms. He is currently living at home with his . His overall performance and functional status is poor. He has obstructive sleep apnea utilizes a CPAP at home. He is coming in with generalized weakness and fevers and some diaphoresis. White cell count in the emergency department was at 12.9. There was a screen was negative. The patient was given a chest x-ray that showed a left lower lobe pneumonia. For that reason he was started on examination Zosyn and vancomycin and was admitted to the hospital. He was moved to the intensive care unit as the patient was running a lower blood pressure. He was given 2 L of IV bolus with normal saline. I was told that he was also having some altered mentation which essentially recovered as the patient was fully alert and awake at the time of my evaluation. Patient is hemodynamically stable on no pressors. He is utilizing a BiPAP which was set at a pressure of 14/7 cm of water with an FiO2 of 40%. Note that the patient's been followed to have a lower hemoglobin levels. Infectious disease consultations were obtained and the patient's been supplemented with IVIG by Dr. Hardin. Most recent IgG levels from 10/09/2018 was above 900. Objective - Vital Signs Vital signs: Vital Signs Temp 98.4 F 10/27/18 07:00 Pulse 81 10/27/18 12:34 Resp 16 10/27/18 12:34 BP 161/80 10/27/18 07:00 Pulse Ox 94 L 10/27/18 07:00 Intake & Output 10/26/18 10/27/18 10/27/18 18:59 06:59 18:59 Intake Total 160 490 396 Output Total 1280 980 500 Balance -1120 -490 -104 Intake: IV 160 290 Sodium Chloride 0.9% 1, 160 40 000 ml @ 20 mls/hr IV . Q24H [facility] Rx#:[id number] Vancomycin 1,500 mg In 250 Sodium Chloride 0.9% 250 ml @ 125 mls/hr IVPB Q16H [facility] Rx#:[id number] Oral 200 396 Output: Urine 1280 980 500 Other: Voiding Method Indwelling Catheter Urinal Urinal # Voids 1 # Bowel Movements 1 - Exam GENERAL: Patient is awake and alert on supplemental oxygen sitting upright on the chair Head exam was generally normal. There was no scleral icterus or corneal arcus. Mucous membranes were moist. HEENT: Pupils are round and equally reacting to light. EOMI. No scleral icterus. No conjunctival pallor. Normocephalic, atraumatic. No pharyngeal erythema. No thyromegaly. The patient is a Mallampati class IV with significant crowding of the posterior oropharynx. CARDIOVASCULAR: S1 and S2 present. No murmurs, rubs, or gallops. PULMONARY: Rhonchus breath sounds bibasilar crackles and expiratory wheezing, crackles also appreciated the left lung base. ABDOMEN: Soft, nontender, nondistended, normoactive bowel sounds. No palpable organomegaly. MUSCULOSKELETAL: No joint swelling or deformity. EXTREMITIES: No cyanosis, clubbing, or pedal edema. NEUROLOGICAL: Gross neurological examination did not reveal any focal deficits. The patient is no focal neurological deficit at this point in time. SKIN: No rashes. Examination of the skin revealed no evidence of significant rashes, suspicious appearing nevi or other concerning lesions. - Labs CBC & Chem 7: 10/26/18 06:37 10/27/18 06:25 Labs: Abnormal Lab Results - Last 24 Hours (Table) 10/26/18 10/26/18 10/26/18 Range/Units 06:37 16:57 20:05 Chloride (98-107) mmol/L BUN (9-20) mg/dL Glucose (74-99) mg/dL POC Glucose (mg/dL) 327 H 307 H (75-99) mg/dL Hemoglobin A1c 7.5 H (4.0-6.0) % 10/27/18 10/27/18 10/27/18 Range/Units 06:25 06:52 11:30 Chloride 109 H (98-107) mmol/L BUN 30 H (9-20) mg/dL Glucose 198 H (74-99) mg/dL POC Glucose (mg/dL) 219 H 208 H (75-99) mg/dL Hemoglobin A1c (4.0-6.0) % Microbiology - Last 24 Hours (Table) 10/24/18 08:25 Blood Culture - Preliminary Blood No Growth after 72 hours 10/25/18 10:30 Gram Stain - Final Sputum Sputum Culture - Final Escherichia coli 10/25/18 19:30 Urine Culture - Final Urine,Catheterized Assessment and Plan Assessment: 1 acute left lower lobe pneumonia 2 history of recurrent pneumonias bilateral with an underlying hemoglobin deficiency the patient is currently on IVIG replacement on outpatient basis 3 COPD with chronic hypoxic respiratory failure 4 obstructive sleep apnea 5 CHF with chronic diastolic dysfunction 6 diabetes mellitus type 2 with peripheral neuropathy, insulin-dependent 7 gait dysfunction and the patient has been unable to ambulate and his been essentially sedentary 8 paroxysmal atrial fibrillation maintained on anticoagulation with Shira harmon a current rhythm is sinus 9 hyperlipidemia 10 history of neuroendocrine tumor 11 morbid obesity 12 hypothyroidism 13 history of chronic adrenal insufficiency maintained on hydrocortisone outpatient basis 14 chronic anemia 15 chronic stage II to 3 kidney disease 16 history of hypogammaglobulinemia, possibly a component of acquired hypogammaglobulinemia maintained on IVIG based on the current history of pneumonias Plan: Continue broad-spectrum antibiotics Gentle diuresis We will start tapering down the IV hydrocortisone Continue bronchodilator DD of BiPAP machine each night and when necessary during the day Continue anticoagulation Further recommendations pending plan of care as per clinical response of the patient Time with Patient: Greater than 30
[2018-10-27 17:27] LABS: Glucose,Whole Blood 271 mg/dL (75-99)
[2018-10-27] MEDS ORDERED: VANCOMYCIN 1,500 MG in SODIUM CHLORIDE 0.9% 250 ML IVPB SCH (18:00)
--- NOTE | 2018-10-27 18:40 | P.PN ---
Subjective Progress Note Date: 10/27/18 Hospital course: Patient is admitted for left lower lobe pneumonia present on broad-spectrum antibiotics patient the has immune globulin deficiency and does receive IVIG patient has multiple episodes of pneumonia because of which patient is on broad- spectrum antibiotics Zosyn and vancomycin sputum cultures are still pending. Patient looks much better today patient is on 92 L of oxygen today very minimal expiratory wheezing on exam. 10/26/2018 Patient can use to get better no overnight events 10/27/2018 sputum reporting E. coli, antibiotic regimen further adjusted as per infectious disease.Zosyn and vancomycin discontinued. Rocephin initiated.afebrile.maintaining O2 sat in the 90s on on 3 L nasal cannula, in a patient who wears 2 L nasal cannula at home. Constitutional: Denied any fatigue denied any fever. Cardio vascular: denied any chest pain, palpitations Gastrointestinal denied any nausea vomiting Pulmonary: As mentioned in the interval history Neurologic denied any new focal deficits Active Medications Hydrocodone Bitart/Acetaminophen ([place] 10) 1 each PO Q4HR PRN PRN Reason: Moderate Pain Last Admin: 10/27/18 17:35 Dose: 1 each Albuterol Sulfate (Ventolin Nebulized) 2.5 mg INHALATION RT-QID PRN PRN Reason: Shortness Of Breath Albuterol/Ipratropium (Duoneb 0.5 Mg-3 Mg/3 Ml Soln) 3 ml INHALATION RT-QID [facility] Last Admin: 10/27/18 16:09 Dose: 3 ml Amlodipine Besylate (Norvasc) 5 mg PO [facility] Apixaban (Eliquis) 5 mg PO BID [facility] Last Admin: 10/27/18 07:52 Dose: 5 mg Atorvastatin Calcium (Lipitor) 40 mg PO HS [facility] Last Admin: 10/26/18 20:58 Dose: 40 mg Budesonide (Pulmicort) 0.5 mg INHALATION RT-BID [facility] Last Admin: 10/27/18 08:54 Dose: 0.5 mg Duloxetine HCl (Cymbalta) 30 mg PO BID [facility] Last Admin: 10/27/18 07:53 Dose: 30 mg Furosemide (Lasix) 40 mg PO DAILY [facility] Last Admin: 10/27/18 13:14 Dose: 40 mg Gabapentin (Neurontin) 800 mg PO QID [facility] Last Admin: 10/27/18 17:31 Dose: 800 mg Hydrocortisone Sodium Succinate (Solu-Cortef) 100 mg IV Q8HR [facility] Last Admin: 10/27/18 15:36 Dose: 100 mg Ceftriaxone Sodium 2 gm/ (Sodium Chloride) 50 mls @ 100 mls/hr IVPB Q24H [facility] Last Admin: 10/27/18 11:35 Dose: 100 mls/hr Insulin Aspart (Novolog) 5 unit SQ BID@1200,1700 [facility] Last Admin: 10/27/18 17:31 Dose: 5 unit Insulin Aspart (Novolog) 9 unit SQ [id number] [facility] Last Admin: 10/27/18 07:51 Dose: 9 unit Insulin Aspart (Novolog) 0 unit SQ ACHS [facility]; Protocol Last Admin: 10/27/18 17:32 Dose: 4 unit Insulin Detemir (Levemir) 30 unit SQ BID [facility] Levothyroxine Sodium (Synthroid) 50 mcg PO HS [facility] Last Admin: 10/26/18 20:58 Dose: 50 mcg Loratadine (Claritin) 10 mg PO DAILY [facility] Last Admin: 10/27/18 07:52 Dose: 10 mg Metoprolol Tartrate (Lopressor) 25 mg PO BID [facility] Last Admin: 10/27/18 07:52 Dose: 25 mg Miscellaneous Information (Pneumonia Protocol Utilized) 1 each PO ONCE PRN PRN Reason: Per Protocol Miscellaneous Information (Magnesium Per Protocol) 1 each MISCELLANE DAILY PRN ; Protocol PRN Reason: Per Protocol Montelukast Sodium (Singulair) 10 mg PO [facility] Nitroglycerin (Nitrostat) 0.4 mg SUBLINGUAL Q5M PRN PRN Reason: Chest Pain Pantoprazole Sodium (Protonix) 40 mg IV DAILY [facility] Last Admin: 10/27/18 07:51 Dose: 40 mg Pioglitazone HCl (Actos) 15 mg PO DAILY [facility] Last Admin: 10/27/18 15:37 Dose: 15 mg Objective - Vital Signs Vital signs: Vital Signs Temp 98.4 F 10/27/18 15:52 Pulse 80 10/27/18 16:17 Resp 16 10/27/18 15:52 BP 158/85 10/27/18 15:52 Pulse Ox 99 10/27/18 15:52 Intake & Output 10/26/18 10/27/18 10/27/18 18:59 06:59 18:59 Intake Total 160 490 396 Output Total 1280 980 500 Balance -1120 -490 -104 Intake: IV 160 290 Sodium Chloride 0.9% 1, 160 40 000 ml @ 20 mls/hr IV . Q24H [facility] Rx#:[id number] Vancomycin 1,500 mg In 250 Sodium Chloride 0.9% 250 ml @ 125 mls/hr IVPB Q16H [facility] Rx#:[id number] Oral 200 396 Output: Urine 1280 980 500 Other: Voiding Method Indwelling Catheter Urinal Urinal # Voids 1 # Bowel Movements 1 - Exam GENERAL: sitting up in chair,Alert oriented 3 ,no acute distress HEENT: Pupils are round and equally reacting to light. EOMI. No scleral icterus. No conjunctival pallor. Normocephalic, atraumatic. CARDIOVASCULAR: S1 and S2 present. No murmurs, rubs, or gallops. PULMONARY: Rhonchus breath sounds bibasilar crackles, no wheezing ABDOMEN: Soft, nontender, nondistended, normoactive bowel sounds. No palpable organomegaly. MUSCULOSKELETAL: No joint swelling or deformity. EXTREMITIES: No cyanosis, clubbing, positive pedal edema. NEUROLOGICAL: Gross neurological examination did not reveal any focal deficits. SKIN: No rashes. - Labs CBC & Chem 7: 10/26/18 06:37 10/27/18 06:25 Labs: Abnormal Lab Results - Last 24 Hours (Table) 10/26/18 10/26/18 10/27/18 Range/Units 06:37 20:05 06:25 Chloride 109 H (98-107) mmol/L BUN 30 H (9-20) mg/dL Glucose 198 H (74-99) mg/dL POC Glucose (mg/dL) 307 H (75-99) mg/dL Hemoglobin A1c 7.5 H (4.0-6.0) % 10/27/18 10/27/18 10/27/18 Range/Units 06:52 11:30 17:06 Chloride (98-107) mmol/L BUN (9-20) mg/dL Glucose (74-99) mg/dL POC Glucose (mg/dL) 219 H 208 H 271 H (75-99) mg/dL Hemoglobin A1c (4.0-6.0) % Microbiology - Last 24 Hours (Table) 10/24/18 08:25 Blood Culture - Preliminary Blood No Growth after 72 hours 10/25/18 10:30 Gram Stain - Final Sputum Sputum Culture - Final Escherichia coli 10/25/18 19:30 Urine Culture - Final Urine,Catheterized Assessment and Plan Assessment: -Sepsis possibly secondary to e. coli pneumonia patient was treated for healthcare associated pneumonia in a patient with history of multiple episodes of pneumonia. -Acute on chronic hypercapnic and hypoxic respiratory failure possibly secondary to pneumonia with an infiltrate in the right lower lobe along with COPD exacerbation, obstructive sleep apnea be a is contributing factor. Patient underwent immunoglobin testing. -Type 2 diabetes mellitus,uncontrolled, hyperglycemia secondary to infection -Congestive heart failure chronic systolic dysfunction does not appear to be in acute exacerbation -Coronary artery disease , hx CABG -Proximal A. fib,on Eliquis -Hyperlipidemia -History of neuroendocrine tumor follow-up as an outpatient for this -Osteoclasts #Hypothyroidism -Possible sleep apnea -morbid obesity,BMI 36.1 plan: Continue on current medication regime ,monitoring and symptomatic treatment. Maintain IV antibiotics as per infectious disease. Lasix resumed.discharge planning in progress for tomorrow. Increase ambulation as tolerated. Continue weaning of oxygen.Levemir dose increased for elevated blood sugars, close monitoring of blood sugars. The impression and plan of care has been dictated as directed. : I performed a history and examination of this patient, discussed the same with the dictator. I agree with the dictator's note ,documented as a scribe. Any additional findings or plans will be noted.
[2018-10-27 20:20] LABS: Glucose,Whole Blood 366 mg/dL (75-99)
[2018-10-27] MEDS: MONTELUKAST 10 MG TAB PO SCH (21:41)
[2018-10-27] MEDS: amLODIPine 5 MG TAB PO SCH (21:41)
[2018-10-27] MEDS: LEVOTHYROXINE 50 MCG TAB PO SCH (21:41)
[2018-10-27] MEDS: ATORVASTATIN 40 MG TAB PO SCH (21:41)
[2018-10-28] MEDS: HYDROCORTISONE SUCCINATE 100 MG/2 ML VIAL IV SCH ×3 (00:28→15:42)
[2018-10-28] MEDS: HYDROcodone/APAP 10-325MG 1 EACH TAB PO PRN ×4 (04:50→21:54)
--- NOTE | 2018-10-28 07:09 | PN ---
PROGRESS NOTE DATE OF SERVICE: 10/27/2018 REASON FOR FOLLOWUP VISIT: Pneumonia. INTERVAL HISTORY: The patient is afebrile. He has been breathing comfortably. Patient denies having any chest pain. Very minimal cough. No nausea or vomiting. No abdominal pain, no diarrhea. PHYSICAL EXAMINATION: Blood pressure is 158/85 with a pulse of 80, temperature 98.4. He is 99% on room air. General description is a middle-aged male, up in the bed in no distress. RESPIRATORY SYSTEM: Unlabored breathing with decreased breath sounds, no wheeze. HEART: S1, S2. Regular rate and rhythm. ABDOMEN: Soft, no tenderness. LABS: Hemoglobin 8.8, white count 9.5, BUN of 30, creatinine 0.83. Sputum with an E coli. Blood culture has been negative. DIAGNOSTIC IMPRESSION AND PLAN: Patient with gram-negative pneumonia treated with the E coli. Unfortunately, no oral option available. We will get a midline as the patient needs to continue on IV Rocephin 2 g daily for another 10 days with close outpatient followup. Continue supportive care. MMODL / IJN: [id number] /
[2018-10-28 07:18] LABS: Glucose,Whole Blood 236 mg/dL (75-99)
[2018-10-28 08:37] LABS: Anion Gap 10 mmol/L; Anisocytosis Slight; Basophils % (A) 1 %; Blood Urea Nitrogen 26 mg/dL (9-20); Calcium 8.9 mg/dL (8.4-10.2); Carbon Dioxide 32 mmol/L (22-30); Chloride 102 mmol/L (98-107); Eosinophils % (A) 0 %; Glucose 215 mg/dL (74-99); HGB 10.2 gm/dL (13.0-17.5); Hypochromasia Marked; Lymphocytes # (A) 0.5 k/uL (1.0-4.8); Lymphocytes % (A) 7 %; MCH 26.6 pg (25.0-35.0); MCHC 29.1 g/dL (31.0-37.0); MCV 91.2 fL (80.0-100.0); Mean Platelet Volume 7.7; Monocytes # (A) 0.5 k/uL (0-1.0); Monocytes % (A) 7 %; Neutrophils % (A) 83 %; Platelet Count 258 k/uL (150-450); Potassium 3.1 mmol/L (3.5-5.1); RBC 3.84 m/uL (4.30-5.90); RDW 19.6 % (11.5-15.5); Sodium 144 mmol/L (137-145); WBC 7.3 k/uL (3.8-10.6)
[2018-10-28] MEDS: BUDESONIDE 0.5 MG/2 ML NEBU INHALATION SCH ×2 (08:38→20:25)
[2018-10-28] MEDS: IPRATROPIUM-ALBUTEROL 3 ML NEB INHALATION SCH ×4 (08:38→20:25)
[2018-10-28] MEDS: INSULIN ASPART (NovoLOG) 100 UNIT/ML VIAL SQ SCH ×7 (09:17→21:39)
[2018-10-28] MEDS: APIXABAN 5 MG TAB PO SCH ×2 (09:18→21:38)
[2018-10-28] MEDS: FUROSEMIDE 40 MG TAB PO SCH (09:18)
[2018-10-28] MEDS: METOPROLOL TARTRATE 25 MG TAB PO SCH ×2 (09:18→21:38)
[2018-10-28] MEDS: LORATADINE 10 MG TAB PO SCH (09:19)
[2018-10-28] MEDS: GABAPENTIN 400 MG CAP PO SCH ×4 (09:19→21:38)
[2018-10-28] MEDS: DULoxetine HCL 30 MG CAPSULE.DR PO SCH ×2 (09:19→21:38)
[2018-10-28] MEDS: PIOGLITAZONE 15 MG TAB PO SCH (09:19)
[2018-10-28] MEDS: INSULIN DETEMIR (LEVEMIR) 100 UNIT/ML SYR SQ SCH ×2 (09:20→21:39)
[2018-10-28] MEDS: PANTOPRAZOLE 40 MG/10 ML VIAL IV SCH (09:21)
[2018-10-28 11:49] LABS: Glucose,Whole Blood 280 mg/dL (75-99)
--- NOTE | 2018-10-28 14:56 | XR ---
EXAMINATION TYPE: XR chest 2V DATE OF EXAM: 10/28/2018 COMPARISON: None HISTORY: 58-year-old male follow-up pneumonia TECHNIQUE: AP and lateral views FINDINGS: Heart limits of normal in size. Median sternotomy wires with post-CABG clips. Mild hyperinflation. Pa tchy infiltrate peripheral right midlung and left base persist but show improvement. IMPRESSION: Improving peripheral right midlung and left basilar infiltrates.
--- NOTE | 2018-10-28 15:15 | PN ---
PROGRESS NOTE DATE OF SERVICE: 10/28/2018 REASON FOR FOLLOWUP: Gram-negative pneumonia. INTERVAL HISTORY: The patient is currently afebrile, he has been breathing comfortably. Patient denies having any chest pain. He did have some cough, no nausea, no vomiting, no abdominal pain, or any diarrhea. PHYSICAL EXAMINATION: Blood pressure is 180/85 with a pulse of 57, temperature 98.4, he is 96% on 2 L nasal cannula. General description is a middle-aged male, up in the bed in no distress. RESPIRATORY SYSTEM: Unlabored breathing with decreased breath sounds at the base, no wheeze. HEART: S1, S2. Regular rate and rhythm. ABDOMEN: Soft, no tenderness. EXTREMITIES: No edema of the feet. LABS: Hemoglobin 10.2 with white count of 7.3, BUN of 26, creatinine 0.6. DIAGNOSTIC IMPRESSION AND PLAN: The patient has left lower lobe pneumonia, admitted to the hospital with sepsis with an E. coli. Patient denies any symptoms suggestive of aspiration etiology. Patient currently doing well on Rocephin 2 g which will continue in the outpatient setting for another 10 more days. Prescription provided to the manager case. Patient requested which has been ordered and close outpatient followup. Continue supportive care. MMODL / IJN: [id number] /
[2018-10-28 17:21] LABS: Glucose,Whole Blood 297 mg/dL (75-99)
--- NOTE | 2018-10-28 17:25 | P.PN ---
Subjective Progress Note Date: 10/28/18 Principal diagnosis: Left lower lobe pneumonia, history of multiple pneumonia related to MRSA in the past, sleep disorder breathing and sleep apnea, COPD, congestive heart failure with chronic diastolic heart failure, type 2 diabetes mellitus, paroxysmal atrial fibrillation, dyslipidemia, history of neuroendocrine tumor, morbid obesity, hypothyroidism, history of adrenal insufficiency, stage III renal failure, hypogammaglobulinemia 10/28/2018, patient seen eval examined during the rounds clinically patient is still having problems associated ongoing cough congestion shortness of breath and wheezing especially at nighttime she does have dyspnea on exertion, her sputum came back positive for E. coli blood cultures have been negative 10/27/2018, patient seen eval examined during the rounds clinically doing slightly better cough congestion shortness of breath is improved patient remains on broad-spectrum antibiotics as well as anticoagulation, labs reviewed medications reviewed, patient is appropriately being treated with bronchodilators IV Rocephin and tolerating very well patient is also on hydrocortisone 58-year-old male patient, known history of COPD with chronic hypoxic respiratory failure in addition to multiple medical problems and comorbidities, The patient has had previous bronchoscopies and he has been shown to have Radha in his sputum in addition to previous history of MRSA and gram-negative microorganisms. He is currently living at home with his . His overall performance and functional status is poor. He has obstructive sleep apnea utilizes a CPAP at home. He is coming in with generalized weakness and fevers and some diaphoresis. White cell count in the emergency department was at 12.9. There was a screen was negative. The patient was given a chest x-ray that showed a left lower lobe pneumonia. For that reason he was started on examination Zosyn and vancomycin and was admitted to the hospital. He was moved to the intensive care unit as the patient was running a lower blood pressure. He was given 2 L of IV bolus with normal saline. I was told that he was also having some altered mentation which essentially recovered as the patient was fully alert and awake at the time of my evaluation. Patient is hemodynamically stable on no pressors. He is utilizing a BiPAP which was set at a pressure of 14/7 cm of water with an FiO2 of 40%. Note that the patient's been followed to have a lower hemoglobin levels. Infectious disease consultations were obtained and the patient's been supplemented with IVIG by Dr. Hardin. Most recent IgG levels from 10/09/2018 was above 900. Objective - Vital Signs Vital signs: Vital Signs Temp 98.9 F 10/28/18 16:05 Pulse 80 10/28/18 17:06 Resp 16 10/28/18 16:05 BP 150/75 10/28/18 16:05 Pulse Ox 100 10/28/18 16:05 Intake & Output 10/27/18 10/28/18 10/28/18 18:59 06:59 18:59 Intake Total 996 880 Output Total 500 1595 500 Balance 496 715 -500 Weight 101 kg Intake: Intake, IV Titration 60 Amount Sodium Chloride 0.9% 1, 60 000 ml @ 20 mls/hr IV . Q24H [facility] Rx#:[id number] Oral 996 820 Output: Urine 500 1595 500 Other: Voiding Method Urinal Urinal Urinal # Voids 6 1 - Exam GENERAL: Patient is awake and alert on supplemental oxygen sitting upright on the chair Head exam was generally normal. There was no scleral icterus or corneal arcus. Mucous membranes were moist. HEENT: Pupils are round and equally reacting to light. EOMI. No scleral icterus. No conjunctival pallor. Normocephalic, atraumatic. No pharyngeal erythema. No thyromegaly. The patient is a Mallampati class IV with significant crowding of the posterior oropharynx. CARDIOVASCULAR: S1 and S2 present. No murmurs, rubs, or gallops. PULMONARY: Rhonchus breath sounds bibasilar crackles and expiratory wheezing, crackles also appreciated the left lung base. ABDOMEN: Soft, nontender, nondistended, normoactive bowel sounds. No palpable organomegaly. MUSCULOSKELETAL: No joint swelling or deformity. EXTREMITIES: No cyanosis, clubbing, or pedal edema. NEUROLOGICAL: Gross neurological examination did not reveal any focal deficits. The patient is no focal neurological deficit at this point in time. SKIN: No rashes. Examination of the skin revealed no evidence of significant rashes, suspicious appearing nevi or other concerning lesions. - Labs CBC & Chem 7: 10/28/18 07:34 10/28/18 07:34 Labs: Abnormal Lab Results - Last 24 Hours (Table) 10/27/18 10/27/18 10/28/18 Range/Units 17:06 20:07 06:57 RBC (4.30-5.90) m/uL Hgb (13.0-17.5) gm/dL Hct (39.0-53.0) % MCHC (31.0-37.0) g/dL RDW (11.5-15.5) % Lymphocytes # (1.0-4.8) k/uL Potassium (3.5-5.1) mmol/L Carbon Dioxide (22-30) mmol/L BUN (9-20) mg/dL Glucose (74-99) mg/dL POC Glucose (mg/dL) 271 H 366 H 236 H (75-99) mg/dL 10/28/18 10/28/18 10/28/18 Range/Units 07:34 07:34 11:31 RBC 3.84 L (4.30-5.90) m/uL Hgb 10.2 L (13.0-17.5) gm/dL Hct 35.0 L (39.0-53.0) % MCHC 29.1 L (31.0-37.0) g/dL RDW 19.6 H (11.5-15.5) % Lymphocytes # 0.5 L (1.0-4.8) k/uL Potassium 3.1 L (3.5-5.1) mmol/L Carbon Dioxide 32 H (22-30) mmol/L BUN 26 H (9-20) mg/dL Glucose 215 H (74-99) mg/dL POC Glucose (mg/dL) 280 H (75-99) mg/dL 10/28/18 Range/Units 16:59 RBC (4.30-5.90) m/uL Hgb (13.0-17.5) gm/dL Hct (39.0-53.0) % MCHC (31.0-37.0) g/dL RDW (11.5-15.5) % Lymphocytes # (1.0-4.8) k/uL Potassium (3.5-5.1) mmol/L Carbon Dioxide (22-30) mmol/L BUN (9-20) mg/dL Glucose (74-99) mg/dL POC Glucose (mg/dL) 297 H (75-99) mg/dL Microbiology - Last 24 Hours (Table) 10/24/18 08:25 Blood Culture - Preliminary Blood No Growth after 96 hours Assessment and Plan Assessment: 1 acute left lower lobe pneumonia related to E. coli/gram-negative pneumonia 2 history of recurrent pneumonias bilateral with an underlying hemoglobin deficiency the patient is currently on IVIG replacement on outpatient basis 3 COPD with chronic hypoxic respiratory failure 4 obstructive sleep apnea 5 CHF with chronic diastolic dysfunction 6 diabetes mellitus type 2 with peripheral neuropathy, insulin-dependent 7 gait dysfunction and the patient has been unable to ambulate and his been essentially sedentary 8 paroxysmal atrial fibrillation maintained on anticoagulation with Shira him a current rhythm is sinus 9 hyperlipidemia 10 history of neuroendocrine tumor 11 morbid obesity 12 hypothyroidism 13 history of chronic adrenal insufficiency maintained on hydrocortisone outpatient basis 14 chronic anemia 15 chronic stage II to 3 kidney disease 16 history of hypogammaglobulinemia, possibly a component of acquired hypogammaglobulinemia maintained on IVIG based on the current history of pneumonias Plan: Continue broad-spectrum antibiotics, can be switched to oral Gentle diuresis We will start tapering down the IV hydrocortisone, can be switched to Cortef and discharge planning for tomorrow Continue bronchodilator DD of BiPAP machine each night and when necessary during the day Continue anticoagulation Further recommendations pending plan of care as per clinical response of the patient
[2018-10-28] MEDS ORDERED: Potassium Replacement Protocol 1 EACH MISC MISCELLANE PRN (18:25)
[2018-10-28] MEDS ORDERED: Magnesium Replacement Protocol 1 EACH MISC MISCELLANE PRN (18:25)
--- NOTE | 2018-10-28 18:41 | P.PN ---
Subjective Progress Note Date: 10/28/18 Hospital course: Patient is admitted for left lower lobe pneumonia present on broad-spectrum antibiotics patient the has immune globulin deficiency and does receive IVIG patient has multiple episodes of pneumonia because of which patient is on broad- spectrum antibiotics Zosyn and vancomycin sputum cultures are still pending. Patient looks much better today patient is on 92 L of oxygen today very minimal expiratory wheezing on exam. 10/26/2018 Patient can use to get better no overnight events 10/27/2018 sputum reporting E. coli, antibiotic regimen further adjusted as per infectious disease.Zosyn and vancomycin discontinued. Rocephin initiated.afebrile.maintaining O2 sat in the 90s on on 3 L nasal cannula, in a patient who wears 2 L nasal cannula at home. 10/28 2018 maintained on Rocephin IV. Afebrile. Weaning of steroids in progress as per pulmonary. Potassium 3.1. Constitutional: Denied any fatigue denied any fever. Cardio vascular: denied any chest pain, palpitations Gastrointestinal denied any nausea vomiting Pulmonary: Diminished, congested, coughing Neurologic denied any new focal deficits Active Medications Generic Name Dose Route Start Last Admin Trade Name Freq PRN Reason Stop Dose Admin Hydrocodone Bitart/Acetaminophen 1 each 10/24/18 14:36 10/28/18 17:41 [place] 10 PO 1 each Q4HR PRN Administration Moderate Pain Albuterol Sulfate 2.5 mg 10/24/18 14:36 Ventolin Nebulized INHALATION RT-QID PRN Shortness Of Breath Albuterol/Ipratropium 3 ml 10/24/18 12:00 10/28/18 17:06 Duoneb 0.5 Mg-3 Mg/3 Ml Soln INHALATION 3 ml RT-QID [facility] Administration Amlodipine Besylate 5 mg 10/27/18 21:00 10/27/18 21:41 Norvasc PO 5 mg HS [facility] Administration Apixaban 5 mg 10/24/18 21:00 10/28/18 09:18 Eliquis PO 5 mg BID [facility] Administration Atorvastatin Calcium 40 mg 10/24/18 21:00 10/27/18 21:41 Lipitor PO 40 mg HS [facility] Administration Budesonide 0.5 mg 10/24/18 20:00 10/28/18 08:38 Pulmicort INHALATION 0.5 mg RT-BID [facility] Administration Duloxetine HCl 30 mg 10/24/18 21:00 10/28/18 09:19 Cymbalta PO 30 mg BID [facility] Administration Furosemide 40 mg 10/27/18 13:00 10/28/18 09:18 Lasix PO 40 mg DAILY [facility] Administration Gabapentin 800 mg 10/24/18 18:00 10/28/18 17:23 Neurontin PO 800 mg QID [facility] Administration Hydrocortisone Sodium Succinate 100 mg 10/25/18 00:00 10/28/18 15:42 Solu-Cortef IV 100 mg Q8HR [facility] Administration Ceftriaxone Sodium 2 gm/ 50 mls @ 100 mls/hr 10/27/18 11:00 10/28/18 10:58 Sodium Chloride IVPB 100 mls/hr Q24H [facility] Administration Insulin Aspart 5 unit 10/24/18 17:00 10/28/18 17:23 Novolog SQ 5 unit [id number],1700 [facility] Administration Insulin Aspart 9 unit 10/25/18 07:30 10/28/18 09:17 Novolog SQ 9 unit [id number] [facility] Administration Insulin Aspart 0 unit 10/26/18 17:49 10/28/18 17:23 Novolog SQ 5 unit ACHS [facility] Administration Protocol Insulin Detemir 30 unit 10/27/18 21:00 10/28/18 09:20 Levemir SQ 30 unit BID [facility] Administration Levothyroxine Sodium 50 mcg 10/24/18 21:00 10/27/18 21:41 Synthroid PO 50 mcg HS [facility] Administration Loratadine 10 mg 10/25/18 09:00 10/28/18 09:19 Claritin PO 10 mg DAILY [facility] Administration Metoprolol Tartrate 25 mg 10/24/18 21:00 10/28/18 09:18 Lopressor PO 25 mg BID [facility] Administration Miscellaneous Information 1 each 10/24/18 10:14 Pneumonia Protocol Utilized PO ONCE PRN Per Protocol Miscellaneous Information 1 each 10/24/18 17:53 Magnesium Per Protocol MISCELLANE DAILY PRN Per Protocol Protocol Montelukast Sodium 10 mg 10/27/18 21:00 10/27/18 21:41 Singulair PO 10 mg HS [facility] Administration Nitroglycerin 0.4 mg 10/24/18 14:36 Nitrostat SUBLINGUAL Q5M PRN Chest Pain Pantoprazole Sodium 40 mg 10/25/18 09:00 10/28/18 09:21 Protonix IV 40 mg DAILY [facility] Administration Pioglitazone HCl 15 mg 10/27/18 13:00 10/28/18 09:19 Actos PO 15 mg DAILY [facility] Administration Objective - Vital Signs Vital signs: Vital Signs Temp 98.9 F 10/28/18 16:05 Pulse 81 10/28/18 17:24 Resp 16 10/28/18 16:05 BP 150/75 10/28/18 16:05 Pulse Ox 100 10/28/18 16:05 Intake & Output 10/27/18 10/28/18 10/28/18 18:59 06:59 18:59 Intake Total 996 880 Output Total 500 1595 500 Balance 535 -364 -257 Weight 101 kg Intake: Intake, IV Titration 60 Amount Sodium Chloride 0.9% 1, 60 000 ml @ 20 mls/hr IV . Q24H [facility] Rx#:[id number] Oral 996 820 Output: Urine 500 1595 500 Other: Voiding Method Urinal Urinal Urinal # Voids 6 1 - Exam GENERAL: sitting up in chair,Alert oriented 3 ,no acute distress HEENT: Pupils are round and equally reacting to light. EOMI. No scleral icterus. No conjunctival pallor. Normocephalic, atraumatic. CARDIOVASCULAR: S1 and S2 present. No murmurs, rubs, or gallops. PULMONARY: Unlabored, Rhonchus breath sounds bibasilar crackles, Occasional fine expiratory wheezing ABDOMEN: Soft, nontender, nondistended, normoactive bowel sounds. No palpable organomegaly. MUSCULOSKELETAL: No joint swelling or deformity. EXTREMITIES: No cyanosis, clubbing, positive pedal edema. NEUROLOGICAL: Gross neurological examination did not reveal any focal deficits. SKIN: No rashes. - Labs CBC & Chem 7: 10/28/18 07:34 10/28/18 07:34 Labs: Abnormal Lab Results - Last 24 Hours (Table) 10/27/18 10/28/18 10/28/18 Range/Units 20:07 06:57 07:34 RBC (4.30-5.90) m/uL Hgb (13.0-17.5) gm/dL Hct (39.0-53.0) % MCHC (31.0-37.0) g/dL RDW (11.5-15.5) % Lymphocytes # (1.0-4.8) k/uL Potassium 3.1 L (3.5-5.1) mmol/L Carbon Dioxide 32 H (22-30) mmol/L BUN 26 H (9-20) mg/dL Glucose 215 H (74-99) mg/dL POC Glucose (mg/dL) 366 H 236 H (75-99) mg/dL 10/28/18 10/28/18 10/28/18 Range/Units 07:34 11:31 16:59 RBC 3.84 L (4.30-5.90) m/uL Hgb 10.2 L (13.0-17.5) gm/dL Hct 35.0 L (39.0-53.0) % MCHC 29.1 L (31.0-37.0) g/dL RDW 19.6 H (11.5-15.5) % Lymphocytes # 0.5 L (1.0-4.8) k/uL Potassium (3.5-5.1) mmol/L Carbon Dioxide (22-30) mmol/L BUN (9-20) mg/dL Glucose (74-99) mg/dL POC Glucose (mg/dL) 280 H 297 H (75-99) mg/dL Microbiology - Last 24 Hours (Table) 10/24/18 08:25 Blood Culture - Preliminary Blood No Growth after 96 hours Assessment and Plan Assessment: -Sepsis possibly secondary to e. coli pneumonia-left lower lobe, healthcare associated pneumonia, in a patient with history of multiple episodes of pneumonia. -Acute on chronic hypercapnic and hypoxic respiratory failure secondary to pneumonia and acute COPD exacerbation, obstructive sleep . Patient underwent immunoglobin testing. -Type 2 diabetes mellitus,uncontrolled, hyperglycemia secondary to infection -Congestive heart failure chronic systolic dysfunction does not appear to be in acute exacerbation -Coronary artery disease , hx CABG -Proximal A. fib,on Eliquis -Hyperlipidemia -History of neuroendocrine tumor follow-up as an outpatient for this -Osteoclasts #Hypothyroidism -Possible sleep apnea -morbid obesity,BMI 36.1 - hypokalemia plan: Continue on current medication regime ,monitoring and symptomatic treatment. Potassium being supplemented as per replacement protocol ordered. Maintain IV antibiotics as per infectious disease. Increase ambulation as tolerated. Levemir dose further increased for elevated blood sugars, close monitoring of blood sugars. Weaning of steroids as per pulmonary.Discharge planning in progress for tomorrow, pending pulmonary clearance. The impression and plan of care has been dictated as directed. : I performed a history and examination of this patient, discussed the same with the dictator. I agree with the dictator's note ,documented as a scribe. Any additional findings or plans will be noted.
[2018-10-28 20:25] LABS: Glucose,Whole Blood 318 mg/dL (75-99)
[2018-10-28] MEDS: ATORVASTATIN 40 MG TAB PO SCH (21:38)
[2018-10-28] MEDS: amLODIPine 5 MG TAB PO SCH (21:38)
[2018-10-28] MEDS: LEVOTHYROXINE 50 MCG TAB PO SCH (21:39)
[2018-10-28] MEDS: MONTELUKAST 10 MG TAB PO SCH (21:39)
[2018-10-29] MEDS: HYDROCORTISONE SUCCINATE 100 MG/2 ML VIAL IV SCH ×2 (01:32→07:39)
[2018-10-29] MEDS: HYDROcodone/APAP 10-325MG 1 EACH TAB PO PRN ×3 (05:33→15:41)
[2018-10-29 07:03] LABS: Anion Gap 9 mmol/L; Blood Urea Nitrogen 30 mg/dL (9-20); Calcium 8.6 mg/dL (8.4-10.2); Carbon Dioxide 40 mmol/L (22-30); Chloride 96 mmol/L (98-107); Glucose 249 mg/dL (74-99); Magnesium 1.3 mg/dL (1.6-2.3); Potassium 2.8 mmol/L (3.5-5.1); Sodium 145 mmol/L (137-145)
[2018-10-29 07:25] LABS: Glucose,Whole Blood 312 mg/dL (75-99)
[2018-10-29] MEDS: BUDESONIDE 0.5 MG/2 ML NEBU INHALATION SCH (07:35)
[2018-10-29] MEDS: IPRATROPIUM-ALBUTEROL 3 ML NEB INHALATION SCH ×3 (07:35→17:08)
[2018-10-29] MEDS: APIXABAN 5 MG TAB PO SCH (07:37)
[2018-10-29] MEDS: GABAPENTIN 400 MG CAP PO SCH ×2 (07:37→12:24)
[2018-10-29] MEDS: LORATADINE 10 MG TAB PO SCH (07:37)
[2018-10-29] MEDS: PIOGLITAZONE 15 MG TAB PO SCH (07:37)
[2018-10-29] MEDS: DULoxetine HCL 30 MG CAPSULE.DR PO SCH (07:37)
[2018-10-29] MEDS: FUROSEMIDE 40 MG TAB PO SCH (07:38)
[2018-10-29] MEDS: INSULIN ASPART (NovoLOG) 100 UNIT/ML VIAL SQ SCH ×4 (07:38→12:21)
[2018-10-29] MEDS: PANTOPRAZOLE 40 MG/10 ML VIAL IV SCH (07:39)
[2018-10-29] MEDS: METOPROLOL TARTRATE 25 MG TAB PO SCH (07:39)
[2018-10-29 09:19] VITALS: BP 150/77; TEMP 97.9
[2018-10-29] MEDS: MAGNESIUM SULFATE-D5W PMX 1 GM in DEXTROSE/WATER 1 100ML.BAG IVPB SCH ×3 (09:21→11:49)
[2018-10-29] MEDS: INSULIN DETEMIR (LEVEMIR) 100 UNIT/ML SYR SQ SCH (09:21)
[2018-10-29] MEDS: POTASSIUM CHLORIDE ER 20 MEQ TAB.ER PO SCH ×3 (09:21→11:49)
[2018-10-29 11:47] LABS: Glucose,Whole Blood 428 mg/dL (75-99)
[2018-10-29] MEDS ORDERED: INSULIN ASPART (NovoLOG) 100 UNIT/ML VIAL SQ ONE (11:59)
[2018-10-29 15:36] VITALS: BMI 35.7
--- NOTE | 2018-10-29 16:07 | PN ---
PROGRESS NOTE DATE OF SERVICE: 10/29/2018 REASON FOR FOLLOWUP: Pneumonia, possible aspiration etiology. INTERVAL HISTORY: The patient is afebrile. He did mention he is feeling much better. He is breathing comfortably. Denies having any chest pain or shortness of breath. Occasional cough. No abdominal pain or diarrhea. PHYSICAL EXAMINATION: Blood pressure is 150/77 with a pulse of 65, temperature 97.9. He is 98% on 3 L nasal cannula. General description is a middle-aged male up in the bed in no distress. RESPIRATORY SYSTEM: Unlabored breathing with decreased breath sounds at the base. No wheeze. HEART: S1, S2. Regular rate and rhythm. ABDOMEN: Soft. No tenderness. LABS: BUN of 30, creatinine 0.72. Sputum with an E coli. Urine culture negative. Blood culture negative. DIAGNOSTIC IMPRESSION AND PLAN: Patient admitted to hospital with episode of sepsis. Source is likely pneumonia. Sputum shows an E coli, a question of possible aspiration etiology. X-ray done yesterday shows improving perihilar right mid lung infiltrate. Patient to finish therapy with IV Rocephin and oral Flagyl. Prescription has been sent to the patient. Antibiotic has been arranged and close outpatient followup. MMODL / IJN: [id number] /
[2018-10-29 16:50] LABS: Magnesium 2.1 mg/dL (1.6-2.3); Potassium 3.3 mmol/L (3.5-5.1)
[2018-10-29] MEDS ORDERED: POTASSIUM CHLORIDE ER 20 MEQ TAB.ER PO STA (17:08)
[2018-10-29 17:11] VITALS: RESP 16
[2018-10-29 17:20] VITALS: PULSE 74
--- NOTE | 2018-10-29 21:55 | DS ---
DISCHARGE SUMMARY FINAL DIAGNOSES: 1. Acute left lower lobe pneumonia, possibly gram-negative, because secondary to Escherichia coli with healthcare-associated pneumonia with possible sepsis, present on admission. 2. History of multiple episodes of pneumonia. 3. Acute on chronic hypercapnic hypoxic respiratory failure secondary to pneumonia. 4. Chronic obstructive pulmonary disease, acute exacerbation. 5. Diabetes mellitus, type 2, uncontrolled, with hyperglycemia. 6. Congestive heart failure with chronic systolic dysfunction. No evidence of any acute exacerbation. 7. Coronary artery disease, coronary artery bypass grafting. 8. Paroxysmal atrial fibrillation, on Eliquis. 9. Hyperlipidemia. 10.History of neuroendocrine tumor. Follow up as outpatient. 11.Hypothyroidism. 12.Possible sleep apnea. 13.Morbid obesity. 14.Hypokalemia. DISCHARGE DISPOSITION: The patient will be discharged in stable condition with guarded prognosis. Total time taken 35 minutes. HISTORY OF PRESENT ILLNESS: This 58-year-old gentleman with a past medical history of multiple medical problems was admitted with possible sepsis and pneumonia. The patient also has COPD and multiple other medical issues, as described above. The patient was treated in conjunction with Infectious Disease as well as Pulmonary. The care was coordinated. Patient improved significantly. The patient will be discharged in stable condition with guarded prognosis with the following advice and medications. On exam, vitals are stable. CARDIOVASCULAR SYSTEM: S1, S2 muffled. ABDOMEN: Soft. NERVOUS SYSTEM: No focal deficit. DISCHARGE ADVICE AND MEDICATIONS: 1. Discharge diet is cardiac. 2. Activity limited until followup. 3. Follow up with primary physician in 2-3 days. 4. Rocephin 2 grams IV daily for 10 days. 5. Flagyl 500 mg t.i.d. for 10 days. 6. Synthroid 50 mcg p.o. at bedtime. 7. Prilosec 20 mg b.i.d. 8. Nitrostat 0.4 mg sublingually p.r.n. 9. Norvasc 5 mg p.o. at bedtime. 10.Neurontin 800 mg p.o. q.i.d. 11.[place] 10 mg q.4 p.r.n. 12.Singulair 10 mg at bedtime. 13.NovoLog FlexPen as before before meals and at bedtime. 14.Cymbalta 30 mg p.o. b.i.d. 15.Eliquis 5 mg p.o. b.i.d. 16.Lopressor 25 mg p.o. b.i.d. 17.Claritin 10 mg p.o. daily. 18.Lasix 40 mg p.o. daily. 19.Hydrocortisone 5 mg p.o. at bedtime and 10 mg before breakfast. 20.NovoLog FlexPen 5 units subcutaneously b.i.d. and 9 units before breakfast. 21.Actos 15 mg p.o. daily. 22.Simvastatin 80 mg at bedtime. CHANGE IN MEDICATIONS: 1. Ventolin HFA 2 puffs q.i.d. 2. Lantus 30 units subcutaneously b.i.d. 3. Lisinopril was discontinued. MMODL / IJN: [id number] /
[2018-10-30] MEDS ORDERED: PANTOPRAZOLE 40 MG TABLET PO SCH (07:30)
--- NOTE | 2018-10-31 08:28 | P.PN ---
Subjective Progress Note Date: 10/29/18 Principal diagnosis: Left lower lobe pneumonia, history of multiple pneumonia related to MRSA in the past, sleep disorder breathing and sleep apnea, COPD, congestive heart failure with chronic diastolic heart failure, type 2 diabetes mellitus, paroxysmal atrial fibrillation, dyslipidemia, history of neuroendocrine tumor, morbid obesity, hypothyroidism, history of adrenal insufficiency, stage III renal failure, hypogammaglobulinemia 10/29/2018, patient seen eval examined during the rounds clinically patient has been doing better in terms of breathing cuff congestion shortness breath is improved, patient is being planned for discharge later on today the antibiotics to be adjusted as per infectious disease services following this patient outpatient basis 10/28/2018, patient seen eval examined during the rounds clinically patient is still having problems associated ongoing cough congestion shortness of breath and wheezing especially at nighttime she does have dyspnea on exertion, her sputum came back positive for E. coli blood cultures have been negative 10/27/2018, patient seen eval examined during the rounds clinically doing slightly better cough congestion shortness of breath is improved patient remains on broad-spectrum antibiotics as well as anticoagulation, labs reviewed medications reviewed, patient is appropriately being treated with bronchodilators IV Rocephin and tolerating very well patient is also on hydrocortisone 58-year-old male patient, known history of COPD with chronic hypoxic respiratory failure in addition to multiple medical problems and comorbidities, The patient has had previous bronchoscopies and he has been shown to have Radha in his sputum in addition to previous history of MRSA and gram-negative microorganisms. He is currently living at home with his . His overall performance and functional status is poor. He has obstructive sleep apnea utilizes a CPAP at home. He is coming in with generalized weakness and fevers and some diaphoresis. White cell count in the emergency department was at 12.9. There was a screen was negative. The patient was given a chest x-ray that showed a left lower lobe pneumonia. For that reason he was started on examination Zosyn and vancomycin and was admitted to the hospital. He was moved to the intensive care unit as the patient was running a lower blood pressure. He was given 2 L of IV bolus with normal saline. I was told that he was also having some altered mentation which essentially recovered as the patient was fully alert and awake at the time of my evaluation. Patient is hemodynamically stable on no pressors. He is utilizing a BiPAP which was set at a pressure of 14/7 cm of water with an FiO2 of 40%. Note that the patient's been followed to have a lower hemoglobin levels. Infectious disease consultations were obtained and the patient's been supplemented with IVIG by Dr. Hardin. Most recent IgG levels from 10/09/2018 was above 900. Objective - Vital Signs Vital signs: Vital Signs Temp 97.9 F 10/29/18 07:00 Pulse 74 10/29/18 17:20 Resp 16 10/29/18 17:20 BP 150/77 10/29/18 07:00 Pulse Ox 98 10/29/18 07:35 - Exam GENERAL: Patient is awake and alert on supplemental oxygen sitting upright on the chair Head exam was generally normal. There was no scleral icterus or corneal arcus. Mucous membranes were moist. HEENT: Pupils are round and equally reacting to light. EOMI. No scleral icterus. No conjunctival pallor. Normocephalic, atraumatic. No pharyngeal erythema. No thyromegaly. The patient is a Mallampati class IV with significant crowding of the posterior oropharynx. CARDIOVASCULAR: S1 and S2 present. No murmurs, rubs, or gallops. PULMONARY: Rhonchus breath sounds bibasilar crackles and expiratory wheezing, crackles also appreciated the left lung base. ABDOMEN: Soft, nontender, nondistended, normoactive bowel sounds. No palpable organomegaly. MUSCULOSKELETAL: No joint swelling or deformity. EXTREMITIES: No cyanosis, clubbing, or pedal edema. NEUROLOGICAL: Gross neurological examination did not reveal any focal deficits. The patient is no focal neurological deficit at this point in time. SKIN: No rashes. Examination of the skin revealed no evidence of significant rashes, suspicious appearing nevi or other concerning lesions. - Labs CBC & Chem 7: 10/28/18 07:34 10/29/18 16:13 Labs: Microbiology - Last 24 Hours (Table) 10/24/18 08:25 Blood Culture - Final Blood No Growth after 144 hours Assessment and Plan Assessment: 1 acute left lower lobe pneumonia related to E. coli/gram-negative pneumonia 2 history of recurrent pneumonias bilateral with an underlying hemoglobin deficiency the patient is currently on IVIG replacement on outpatient basis 3 COPD with chronic hypoxic respiratory failure 4 obstructive sleep apnea 5 CHF with chronic diastolic dysfunction 6 diabetes mellitus type 2 with peripheral neuropathy, insulin-dependent 7 gait dysfunction and the patient has been unable to ambulate and his been essentially sedentary 8 paroxysmal atrial fibrillation maintained on anticoagulation with Ginais him a current rhythm is sinus 9 hyperlipidemia 10 history of neuroendocrine tumor 11 morbid obesity 12 hypothyroidism 13 history of chronic adrenal insufficiency maintained on hydrocortisone outpatient basis 14 chronic anemia 15 chronic stage II to 3 kidney disease 16 history of hypogammaglobulinemia, possibly a component of acquired hypogammaglobulinemia maintained on IVIG based on the current history of pneumonias Plan: Continue broad-spectrum antibiotics, can be switched to oral as per ID recommendation Gentle diuresis can be switched to Cortef as taking at home Continue bronchodilator DD of BiPAP machine each night and when necessary during the day Continue anticoagulation Further recommendations pending plan of care as per clinical response of the patient Time with Patient: Greater than 30
== END 2018-10-29 17:40 | disposition home health service (06) | DRG 871 ==
LOC: EC 07:50 → 2SICU 10:16 → 4SSUR 10-25 11:46
PROVIDERS: ADMIT Hospitalist; ATTEND Hospitalist
PROC: 5A09557 Assistance with Respiratory Ventilation, Greater than 96 Consecutive Hours, Continuous Positive Airway Pressure (ICD-10-PCS; principal; 2018-10-24)
PROC: 05HD33Z Insertion of Infusion Device into Right Cephalic Vein, Percutaneous Approach (ICD-10-PCS; 2018-10-28 10:30)
DX: A41.51 Sepsis due to Escherichia coli [E. coli] (principal); J96.21 Acute and chronic respiratory failure with hypoxia; J96.22 Acute and chronic respiratory failure with hypercapnia; J69.0 Pneumonitis due to inhalation of food and vomit; J15.5 Pneumonia due to Escherichia coli; D80.1 Nonfamilial hypogammaglobulinemia; I50.42 Chronic combined systolic (congestive) and diastolic (congestive) heart failure; J44.0 Chronic obstructive pulmonary disease with (acute) lower respiratory infection; J44.1 Chronic obstructive pulmonary disease with (acute) exacerbation; E27.40 Unspecified adrenocortical insufficiency; E11.42 Type 2 diabetes mellitus with diabetic polyneuropathy; E11.22 Type 2 diabetes mellitus with diabetic chronic kidney disease; E66.01 Morbid (severe) obesity due to excess calories; I48.0 Paroxysmal atrial fibrillation; B02.9 Zoster without complications; E11.65 Type 2 diabetes mellitus with hyperglycemia; N18.3 Chronic kidney disease, stage 3 (moderate); I25.2 Old myocardial infarction; G47.33 Obstructive sleep apnea (adult) (pediatric); E78.5 Hyperlipidemia, unspecified; M10.9 Gout, unspecified; D50.9 Iron deficiency anemia, unspecified; E03.9 Hypothyroidism, unspecified; I25.10 Atherosclerotic heart disease of native coronary artery without angina pectoris; R26.9 Unspecified abnormalities of gait and mobility; D3A.8 Other benign neuroendocrine tumors; E87.6 Hypokalemia; G89.29 Other chronic pain; M54.9 Dorsalgia, unspecified; R41.82 Altered mental status, unspecified; Y95 Nosocomial condition; Z79.4 Long term (current) use of insulin; Z68.36 Body mass index [BMI] 36.0-36.9, adult; Z79.890 Hormone replacement therapy; Z79.899 Other long term (current) drug therapy; Z79.01 Long term (current) use of anticoagulants; Z85.828 Personal history of other malignant neoplasm of skin; Z87.891 Personal history of nicotine dependence; Z86.14 Personal history of Methicillin resistant Staphylococcus aureus infection; Z99.81 Dependence on supplemental oxygen; Z96.641 Presence of right artificial hip joint; Z95.5 Presence of coronary angioplasty implant and graft; Z90.49 Acquired absence of other specified parts of digestive tract; Z95.1 Presence of aortocoronary bypass graft; Z87.01 Personal history of pneumonia (recurrent); Z82.49 Family history of ischemic heart disease and other diseases of the circulatory system; Z80.3 Family history of malignant neoplasm of breast; Z83.3 Family history of diabetes mellitus; Z80.1 Family history of malignant neoplasm of trachea, bronchus and lung; Z82.61 Family history of arthritis
CPT/HCPCS: 36410; 36415; 71045; 71046; 76937; 80048; 80053; 80202; 82550; 82553; 82784; 83036; 83605; 83735; 83880; 84100; 84132; 84484; 85025; 85610; 85730; 87040; 87070; 87077; 87086; 87186; 87205; 87502; 93005; 94640; 94660; 94760; 96365; 96366; 96368; 96375; 99285

== ENCOUNTER → 2018-11-24 | Outpatient (CLI) | payer MEDICARE | LOC: LABWHC1 14:21 | PROVIDERS: ATTEND Internal Medicine Sleep Medicine | DX: I10 Essential (primary) hypertension (principal); J18.9 Pneumonia, unspecified organism | CPT/HCPCS: 87070; 87205 ==

== ENCOUNTER → 2018-11-24 | Outpatient (CLI) | payer MEDICARE ==
--- NOTE | 2018-11-24 15:06 | XR ---
EXAMINATION TYPE: XR chest 2V DATE OF EXAM: 11/24/2018 COMPARISON: Chest x-ray October 28, 2018. HISTORY: Pneumonia ,prior abnormal x-ray progress study. TECHNIQUE: Frontal and lateral views of the chest are obtained. FINDINGS: Post CABG changes with mediastinal clips and sternal wires is redemonstrated. There is clinical program consultant celeste parenchymal change with worsening retrocardiac opacity. There is improved aeration right midlung lateral opacity. The cardiac silhouette size is stable and mildly enlarged. Vertebral change cervical spine is redemonstrated. IMPRESSION: Chronic parenchymal change and mild cardiomegaly with worsening left lower lobe acute in filtrate and/or atelectasis but improving right midlung lateral acute infiltrate and/or atelectasis.
--- NOTE | 2018-11-24 16:56 | MR ---
MRI CERVICAL SPINE: CLINICAL HISTORY: Spondylosis with myelopathy per order. Headache with neck pain causing muscle weakn ess and pain or weakness in both arms and fingers per years per patient. History of prior surgery per patient. TECHNIQUE: Multiplanar, multisequence imaging of the cervical spine is performed without and with IV contrast, 10 cc of gadolinium was given intravenously. COMPARISON: None. FINDINGS: Coronal images show slight levoconvex scoliotic curvature centered near cervicothoracic jose luis ction. Sagittal images of the cervical spine show the craniocervical junction to appear within normal limits. The cervical and upper thoracic spinal cord shows generalized AP diameter narrowing centere d near C5 level sagittal image 7 without abnormal signal suggesting focal myelomalacia. There is frank fact from anterior fusion hardware C3-C7 levels. There is mild to moderate disc space narrowing C7-T1 level otherwise the vertebral body and intravertebral disk heights are normal above and below surgic al levels. Multilevel small posterior disc herniations are seen effacing anterior thecal sac and the visualized upper thoracic spine. The bone marrow signal intensity is within normal limits. No suspici ous enhancement is seen. Axial images at C2-C3 level show uncovertebral facet degenerative changes bilaterally contributing to moderate to advanced left and mild to moderate right-sided neural foraminal narrowing. Axial images at C3-C4 level show artifact from fusion plate, there is left-sided uncovertebral facet degenerative changes causing moderate to advanced left-sided neural foraminal narrowing. Axial images at C4-C5 level show artifact from anterior fusion plate, right-sided neural foramen is m ildly narrowed due to marginal spurring. Axial images at C5-C6 level show left paracentral bony projection effacing anterolateral thecal sac a xial image 22 and sagittal image 5 and causing advanced left-sided neural foraminal narrowing, right- sided neural foramen is patent. Axial images at the C6-C7 level show artifact from fusion hardware, there is asymmetric moderate righ t-sided neural foraminal narrowing due to marginal spurring. Mild to moderate left-sided neural esmer inal narrowing or marginal spurring is noted. Axial images at C7-T1 level show artifact from surgical hardware otherwise are felt within normal cardenas its. IMPRESSION: Anterior fusion C3-C7 levels with satisfactory alignment. Focal ossific projection efface s anterolateral thecal sac in the mid cervical spine. Multilevel neural foraminal narrowing is seen a s detailed above.
== END ==
LOC: RADMRIMAIN 13:22
PROVIDERS: ATTEND Physical Medicine & Rehabilitation
DX: M48.02 Spinal stenosis, cervical region (principal); M46.82 Other specified inflammatory spondylopathies, cervical region; I51.7 Cardiomegaly; Z98.1 Arthrodesis status
CPT/HCPCS: 71046; 72156; A9585

== ENCOUNTER → 2018-12-03 | Outpatient (CLI) | payer MEDICARE ==
[2018-12-03 16:46] LABS: Anion Gap 8.1 mmol/L (4.00-12.00); Calcium 9.1 mg/dL (8.7-10.3); Carbon Dioxide 32.9 mmol/L (21.6-31.8); Potassium 4.6 mmol/L (3.5-5.5)
== END | disposition home or self-care (01) ==
LOC: LABWHC1 11:18
PROVIDERS: ATTEND Internal Medicine Interventional Cardiology
DX: I10 Essential (primary) hypertension (principal)
CPT/HCPCS: 36415; 80048

== ENCOUNTER → 2019-01-15 | Outpatient (CLI) | payer MEDICARE, OTHER ==
--- NOTE | 2019-01-15 22:10 | MR ---
EXAMINATION TYPE: MR shoulder RT wo con DATE OF EXAM: 01/15/2019 COMPARISON: Right breast 01/07/2019 HISTORY: 58-year-old male Pain in right shoulder TECHNIQUE: Multiplanar, multisequence imaging of the right shoulder is performed without contrast. FINDINGS: The technologist notes that the patient was reminded to stay awake despite repeatedly sleeping and mo ving. Images are extensively degraded by patient motion. Unable to assess the intragastric portion of long head biceps tendon due to the extensive motion The subscapularis tendon is also markedly heterogeneous and limited due to motion. Bony irregularity at the lesser tuberosity is demonstrated with small corticated bone fragments along the expected subs capularis myotendinous junction suggesting some avulsed and retracted fibers. There is a moderate subacromial/subdeltoid bursal effusion. Partial-thickness articular sided tearing along the anterior infraspinatus tendon below the acromion measuring 1.6 cm long and 9 mm AP. Additi onal extensive intrasubstance change is present. Suspect a subtle nondisplaced full-thickness tear in volving the infraspinatus tendon at its footprint, refer to coronal T2 images 15 through 19. Small lo ose bodies are present within the posterior aspect of the subacromial/subdeltoid bursa. Additional sm all loose bodies are seen throughout the superior posterior aspect of the glenoid humeral joint. There is end-stage degenerative change of the glenohumeral joint with [id number] articulation, subc hondral marrow signal changes, marginal spurring, there is some mild bony remodeling of the glenoid m arginal spurring and slight posterior glenoid retroversion. The glenoid labrum is diffusely degenerative and torn. Mild joint effusion. Soft tissue replacement in the rotator cuff interval probably secondary to synovitis. Moderate degenerative change of the acromioclavicular joint but with bulky marginal spurring impingin g onto the underlying cuff. There is mild to moderate fatty infiltration of the rotator cuff musculature. Additional moderate fat ty infiltration of the teres major. No Hill-Sachs deformity or os acromiale. No suspicious bone marrow replacement. IMPRESSION: 1. Motion degraded exam despite multiple attempts by the technologist to keep the awake and from movi ng. 2. Moderate effusion in the subacromial/subdeltoid bursa with small loose bodies. Findings suggest co mmunication with the underlying glenohumeral joint which shows end-stage OA and additional loose bodi es. 3. An irregular, nondisplaced full-thickness tear suggested of the infraspinatus tendon. Extensive te ndinosis is present throughout both supraspinatus and infraspinatus tendons with areas of partial thi ckness tearing and prominent intrasubstance change. 4. Fragments along the myotendinous junction of the subscapularis suggests avulsed and retracted subs capularis tendon fibers. Detailed assessment limited due to the extensive motion. 5. Soft tissue replacement in the rotator cuff interval suspected to be secondary to chronic synoviti s. Intracapsular portion of the long head biceps tendon is inadequately assessed due to the degree of motion. 6. Moderate overall AC joint OA but with significant marginal spurring impinging onto the underlying cuff.
== END ==
LOC: RADMRIMAIN 15:33
PROVIDERS: ATTEND Family Medicine
DX: S46.011A Strain of muscle(s) and tendon(s) of the rotator cuff of right shoulder, initial encounter (principal); M75.81 Other shoulder lesions, right shoulder; M19.011 Primary osteoarthritis, right shoulder

== ENCOUNTER 2019-02-09 17:02 | Inpatient (IN) | payer MEDICARE, OTHER ==
[2019-02-09] MEDS ORDERED: SODIUM CHLORIDE 0.9% 500 ML 500 ML IV STA (17:24)
[2019-02-09] MEDS ORDERED: IPRATROPIUM-ALBUTEROL 3 ML NEB INHALATION STA (17:27)
[2019-02-09] MEDS ORDERED: ALBUTEROL NEBULIZED 2.5 MG/3 ML INHALATION STA (17:27)
[2019-02-09] MEDS ORDERED: SODIUM CHLORIDE 0.9% 500 ML 500 ML IV ONE (17:33)
[2019-02-09 17:44] LABS: Anisocytosis Slight; Basophils % (A) 0 %; Eosinophils # (A) 0.1 k/uL (0-0.7); Eosinophils % (A) 1 %; HCT 31.6 % (39.0-53.0); HGB 9.1 gm/dL (13.0-17.5); Hypochromasia Marked; Lymphocytes # (A) 0.8 k/uL (1.0-4.8); Lymphocytes % (A) 3 %; MCH 24.2 pg (25.0-35.0); MCHC 28.7 g/dL (31.0-37.0); MCV 84.2 fL (80.0-100.0); Mean Platelet Volume 8.3; Microcytosis Slight; Monocytes # (A) 0.6 k/uL (0-1.0); Monocytes % (A) 3 %; Neutrophils # (A) 22.3 k/uL (1.3-7.7); Neutrophils % (A) 93 %; Platelet Count 187 k/uL (150-450); RBC 3.75 m/uL (4.30-5.90); RDW 19.5 % (11.5-15.5)
[2019-02-09 17:47] LABS: VBG PH 7.28 (7.31-7.41)
[2019-02-09 17:55] LABS: Albumin 3.2 g/dL (3.5-5.0); Calcium 8.8 mg/dL (8.4-10.2); Magnesium 1.7 mg/dL (1.6-2.3); Potassium 3.8 mmol/L (3.5-5.1); Total Bilirubin 0.6 mg/dL (0.2-1.3)
[2019-02-09 17:57] LABS: Prothrombin Time 10.6 sec (9.0-12.0)
[2019-02-09 17:58] LABS: Partial Thromboplastin Time 23.7 sec (22.0-30.0)
[2019-02-09] MEDS ORDERED: cefTRIAXone IN SWFI 1,000 MG/10 ML SYRINGE IVP STA (18:10)
[2019-02-09] MEDS ORDERED: VANCOMYCIN IV PER PHARMACY 1 EACH MISC MISCELLANE PRN (18:10)
[2019-02-09] MEDS ORDERED: VANCOMYCIN 1,500 MG in SODIUM CHLORIDE 0.9% 250 ML IVPB STA (18:14)
--- NOTE | 2019-02-09 18:38 | XR ---
EXAMINATION TYPE: XR chest 2V DATE OF EXAM: 02/09/2019 COMPARISON: Prior chest x-ray 11/24/2018 HISTORY: Chest pain and difficulty breathing TECHNIQUE: Frontal and lateral views of the chest are obtained. FINDINGS: Patient is post median sternotomy. There is no focal air space opacity, pleural effusion, o r pneumothorax seen. The cardiac silhouette size is stable, enlarged accounting for differences in t echnique. Postop changes are noted to the cervical spine. There are overlying cardiac leads. Patient is rotated. Prominent lung volume may be indicative of underlying COPD. The osseous structures are i ntact. IMPRESSION: Cardiomegaly, postop changes.
[2019-02-09 18:42] LABS: Glucose,Whole Blood 114 mg/dL (75-99)
[2019-02-09] MEDS ORDERED: DEXTROSE 50% SYRINGE 50 ML IVP STA (18:45)
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
[2019-02-09] MEDS ORDERED: AZITHROMYCIN 500 MG in SODIUM CHLORIDE 0.9% 250 ML IVPB STA (19:26)
[2019-02-09] MEDS ORDERED: PIPERACILLIN-TAZOBACTAM 3.375 GM in SODIUM CHLORIDE 0.9% 100 ML IVPB STA (19:46)
[2019-02-09] MEDS ORDERED: NALOXONE 0.4 MG/ML 1 ML VIAL IV PRN (19:54)
[2019-02-09 20:10] LABS: Appearance,Urine Clear (Clear); Bilirubin,Urine Negative (Negative); Blood,Urine Negative (Negative); Color,Urine Dark Yellow; Glucose,Urine (UA) Negative (Negative); Granular Casts,Urine 615 /lpf (0); Hyaline Casts,Urine 37 /lpf (0-2); Ketones,Urine Negative (Negative); Leukocyte Esterase,Urine Negative (Negative); Mucus,Urine Rare /hpf; Nitrite,Urine Negative (Negative); PH, Urine 5.5 (5.0-8.0); Protein,Urine 1+ (Negative); RBC,Urine 2 /hpf (0-5); Specific Gravity,Urine 1.027 (1.001-1.035); Squamous Epithelial Cell,Urine <1 /hpf (0-4); WBC,Urine 2 /hpf (0-5)
[2019-02-09] MEDS ORDERED: HYDROCORTISONE SUCCINATE 100 MG/2 ML VIAL IV STA (20:37)
[2019-02-09 21:18] LABS: Glucose,Whole Blood 99 mg/dL (75-99)
[2019-02-09] MEDS: SODIUM CHLORIDE 0.9% 1,000 ML IV SCH (21:20)
[2019-02-09 21:38] LABS: ABG HCO3 25 mmol/L (21-25); ABG PCO2 49 mmHg (35-45); ABG PH 7.32 (7.35-7.45); ABG TCO2 27 mmol/L (19-24)
[2019-02-09 21:48] LABS: ABG PO2 51 mmHg (83-108)
[2019-02-09 22:33] VITALS: BMI 33.3
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
[2019-02-10] MEDS: HYDROCORTISONE SUCCINATE 100 MG/2 ML VIAL IV SCH ×5 (00:32→23:34)
[2019-02-10] MEDS: PIPERACILLIN-TAZOBACTAM 3.375 GM in SODIUM CHLORIDE 0.9% 100 ML IVPB SCH ×3 (00:32→16:34)
[2019-02-10] MEDS: LEVOTHYROXINE 50 MCG TAB PO SCH ×2 (00:33→20:21)
[2019-02-10 02:24] LABS: Glucose,Whole Blood 159 mg/dL (75-99)
[2019-02-10] MEDS: VANCOMYCIN 1,500 MG in SODIUM CHLORIDE 0.9% 250 ML IVPB SCH ×2 (05:22→23:34)
[2019-02-10] MEDS: SODIUM CHLORIDE 0.9% 1,000 ML IV SCH ×4 (05:23→23:34)
[2019-02-10 06:11] LABS: Glucose,Whole Blood 173 mg/dL (75-99)
[2019-02-10] MEDS: INSULIN ASPART (NovoLOG) 100 UNIT/ML VIAL SQ SCH ×4 (06:43→23:31)
[2019-02-10 07:28] LABS: Albumin 3.1 g/dL (3.5-5.0); Potassium 5.1 mmol/L (3.5-5.1); Total Bilirubin 0.4 mg/dL (0.2-1.3); Total Protein 5.7 g/dL (6.3-8.2)
[2019-02-10] MEDS: IPRATROPIUM-ALBUTEROL 3 ML NEB INHALATION PRN ×2 (08:03→19:32)
[2019-02-10 08:12] LABS: Anisocytosis Slight; Basophils % (A) 0 %; Eosinophils % (A) 0 %; HCT 31.8 % (39.0-53.0); HGB 8.7 gm/dL (13.0-17.5); Hypochromasia Marked; Lymphocytes # (A) 0.3 k/uL (1.0-4.8); Lymphocytes % (A) 1 %; MCH 23.9 pg (25.0-35.0); MCHC 27.3 g/dL (31.0-37.0); MCV 87.8 fL (80.0-100.0); Mean Platelet Volume 8.7; Monocytes # (A) 0.4 k/uL (0-1.0); Monocytes % (A) 2 %; Neutrophils % (A) 97 %; Platelet Count 183 k/uL (150-450); RBC 3.62 m/uL (4.30-5.90); RDW 19.6 % (11.5-15.5); WBC 25.8 k/uL (3.8-10.6)
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
[2019-02-10] MEDS: FLUCONAZOLE 100 MG TAB PO SCH (09:13)
[2019-02-10] MEDS: APIXABAN 5 MG TAB PO SCH ×2 (09:13→20:21)
[2019-02-10] MEDS: METOPROLOL TARTRATE 25 MG TAB PO SCH ×2 (09:14→20:21)
[2019-02-10] MEDS: GABAPENTIN 400 MG CAP PO SCH ×4 (09:14→20:21)
[2019-02-10] MEDS: PANTOPRAZOLE 40 MG TABLET PO SCH (09:14)
[2019-02-10] MEDS: valACYclovir HCL 1,000 MG TABLET PO SCH ×2 (09:20→20:25)
[2019-02-10 11:26] LABS: Glucose,Whole Blood 324 mg/dL (75-99)
[2019-02-10] MEDS ORDERED: INSULIN ASPART (NovoLOG) 100 UNIT/ML VIAL SQ ONE (12:23)
[2019-02-10] MEDS ORDERED: BUPRENORPHINE 10 MCG/HR TRANSDERM SCH (12:30)
--- NOTE | 2019-02-10 12:57 | P.PN ---
Subjective Progress Note Date: 02/10/19 The patient seen and examined and follow up, currently denies any chest pain or shortness of breath denies cough, the patient reported he was having fevers at home as high as 102.7 and was taking Tylenol. The patient has chronic respiratory failure is on 4.5 L via nasal cannula. The patient does have ch ronic pain from osteoarthritis at multiple sites with the worse being his right hip currently ambulates with a walker secondary to pain, the patient does have a profound leukocytosis of 25.8, currently no focus of infection but is susceptible elected to be early pneumonia given history of MRSA and E. coli pneumonia despite negative chest x-ray. History of chronic microcytic anemia etiology unknown. Hemoglobin at 8.7.blood sugars elevated at 324 secondary to steroids No acute events overnight, patient awake alert. Objective - Vital Signs Vital signs: Vital Signs Temp 98.9 F 02/10/19 08:00 Pulse 82 02/10/19 08:13 Resp 18 02/10/19 08:03 BP 118/55 02/10/19 08:00 Pulse Ox 97 02/10/19 08:03 Intake & Output 02/09/19 02/10/19 02/10/19 18:59 06:59 18:59 Intake Total 650 240 Output Total 200 Balance 450 240 Weight 90.718 kg 94 kg Intake: Intake, IV Titration 650 Amount Piperacillin-Tazobactam 3 100 .375 gm In Sodium Chloride 0.9% 100 ml @ 200 mls/hr IVPB ONCE STA Rx#:[id number] Sodium Chloride 0.9% 1, 300 000 ml @ 100 mls/hr IV . Q10H [facility] Rx#:[id number] Vancomycin 1,500 mg In 250 Sodium Chloride 0.9% 250 ml @ 125 mls/hr IVPB ONCE STA Rx#:[id number] Oral 240 Output: Urine 200 Other: Voiding Method Urinal Urinal - Exam Constitutional: No acute distress, conversant, pleasant Eyes: Anicteric sclerae, moist conjunctiva, no lid-lag, PERRLA ENMT: NC/AT,Oropharynx clear, no erythema, exudates Neck:Supple, FROM, no masses, or JVD, No carotid bruits; No thyromegaly Lungs: Clear to auscultation, Clear to percussion, Normal respiratory effort, no accessory muscle use on 4.5 L nasal cannula Cardiovascular: Heart regular in rate and rhythm, No murmurs, gallops, or rubs no peripheral edema Abdominal: Soft Nontender, nom distended, no guarding, no rebound or rigidity, Normoactive bowel sounds No hepatomegaly, No splenomegaly, No palpable mass No abdominal wall hernia noted Skin: Normal temperature, tone, texture, turgor, No induration No subcutaneous nodules, No rash, lesions, No ulcers Extremities:No digital cyanosis No clubbing, Pedal pulses intact and symmetrical Radial pulses intact and symmetrical , No calf tenderness Psychiatric: Alert and oriented to person, place and time, Appropriate affect Intact judgement Neuro: Muscles Strength 5/5 in all 4 extremities, Sensation to light touch grossly present throughout, Cranial nerves II-XII grossly intact. No focal sensory deficits - Labs CBC & Chem 7: 02/10/19 06:20 02/10/19 06:20 Labs: Abnormal Lab Results - Last 24 Hours (Table) 02/09/19 02/09/19 02/09/19 Range/Units 17:20 17:20 17:20 WBC 24.0 H (3.8-10.6) k/uL RBC 3.75 L (4.30-5.90) m/uL Hgb 9.1 L (13.0-17.5) gm/dL Hct 31.6 L (39.0-53.0) % MCH 24.2 L (25.0-35.0) pg MCHC 28.7 L (31.0-37.0) g/dL RDW 19.5 H (11.5-15.5) % Neutrophils # 22.3 H (1.3-7.7) k/uL Lymphocytes # 0.8 L (1.0-4.8) k/uL ABG pH (7.35-7.45) ABG pCO2 (35-45) mmHg ABG pO2 (83-108) mmHg ABG Total CO2 (19-24) mmol/L ABG O2 Saturation (94-97) % VBG pH (7.31-7.41) VBG HCO3 (24-28) mmol/L Chloride 108 H (98-107) mmol/L Carbon Dioxide (22-30) mmol/L BUN 38 H (9-20) mg/dL Creatinine 1.45 H (0.66-1.25) mg/dL Glucose 46 L* (74-99) mg/dL POC Glucose (mg/dL) (75-99) mg/dL Plasma Lactic Acid Freddy (0.7-2.0) mmol/L Calcium (8.4-10.2) mg/dL AST 71 H (17-59) U/L Troponin I 0.051 H* (0.000-0.034) ng/mL Total Protein 6.0 L (6.3-8.2) g/dL Albumin 3.2 L (3.5-5.0) g/dL Urine Protein (Negative) Hyaline Casts (0-2) /lpf Urine Mucus (None) /hpf 02/09/19 02/09/19 02/09/19 Range/Units 17:20 17:20 18:40 WBC (3.8-10.6) k/uL RBC (4.30-5.90) m/uL Hgb (13.0-17.5) gm/dL Hct (39.0-53.0) % MCH (25.0-35.0) pg MCHC (31.0-37.0) g/dL RDW (11.5-15.5) % Neutrophils # (1.3-7.7) k/uL Lymphocytes # (1.0-4.8) k/uL ABG pH (7.35-7.45) ABG pCO2 (35-45) mmHg ABG pO2 (83-108) mmHg ABG Total CO2 (19-24) mmol/L ABG O2 Saturation (94-97) % VBG pH 7.28 L (7.31-7.41) VBG HCO3 22 L (24-28) mmol/L Chloride (98-107) mmol/L Carbon Dioxide (22-30) mmol/L BUN (9-20) mg/dL Creatinine (0.66-1.25) mg/dL Glucose (74-99) mg/dL POC Glucose (mg/dL) 114 H (75-99) mg/dL Plasma Lactic Acid Freddy 2.3 H* (0.7-2.0) mmol/L Calcium (8.4-10.2) mg/dL AST (17-59) U/L Troponin I (0.000-0.034) ng/mL Total Protein (6.3-8.2) g/dL Albumin (3.5-5.0) g/dL Urine Protein (Negative) Hyaline Casts (0-2) /lpf Urine Mucus (None) /hpf 02/09/19 02/09/19 02/10/19 Range/Units 19:57 21:36 02:23 WBC (3.8-10.6) k/uL RBC (4.30-5.90) m/uL Hgb (13.0-17.5) gm/dL Hct (39.0-53.0) % MCH (25.0-35.0) pg MCHC (31.0-37.0) g/dL RDW (11.5-15.5) % Neutrophils # (1.3-7.7) k/uL Lymphocytes # (1.0-4.8) k/uL ABG pH 7.32 L (7.35-7.45) ABG pCO2 49 H (35-45) mmHg ABG pO2 51 L* (83-108) mmHg ABG Total CO2 27 H (19-24) mmol/L ABG O2 Saturation 83.0 L (94-97) % VBG pH (7.31-7.41) VBG HCO3 (24-28) mmol/L Chloride (98-107) mmol/L Carbon Dioxide (22-30) mmol/L BUN (9-20) mg/dL Creatinine (0.66-1.25) mg/dL Glucose (74-99) mg/dL POC Glucose (mg/dL) 159 H (75-99) mg/dL Plasma Lactic Acid Freddy (0.7-2.0) mmol/L Calcium (8.4-10.2) mg/dL AST (17-59) U/L Troponin I (0.000-0.034) ng/mL Total Protein (6.3-8.2) g/dL Albumin (3.5-5.0) g/dL Urine Protein 1+ H (Negative) Hyaline Casts 37 H (0-2) /lpf Urine Mucus Rare H (None) /hpf 02/10/19 02/10/19 02/10/19 Range/Units 06:10 06:20 06:20 WBC 25.8 H (3.8-10.6) k/uL RBC 3.62 L (4.30-5.90) m/uL Hgb 8.7 L (13.0-17.5) gm/dL Hct 31.8 L (39.0-53.0) % MCH 23.9 L (25.0-35.0) pg MCHC 27.3 L (31.0-37.0) g/dL RDW 19.6 H (11.5-15.5) % Neutrophils # 25.0 H (1.3-7.7) k/uL Lymphocytes # 0.3 L (1.0-4.8) k/uL ABG pH (7.35-7.45) ABG pCO2 (35-45) mmHg ABG pO2 (83-108) mmHg ABG Total CO2 (19-24) mmol/L ABG O2 Saturation (94-97) % VBG pH (7.31-7.41) VBG HCO3 (24-28) mmol/L Chloride 109 H (98-107) mmol/L Carbon Dioxide 20 L (22-30) mmol/L BUN 40 H (9-20) mg/dL Creatinine 1.45 H (0.66-1.25) mg/dL Glucose 160 H (74-99) mg/dL POC Glucose (mg/dL) 173 H (75-99) mg/dL Plasma Lactic Acid Freddy (0.7-2.0) mmol/L Calcium 8.0 L (8.4-10.2) mg/dL AST 81 H (17-59) U/L Troponin I (0.000-0.034) ng/mL Total Protein 5.7 L (6.3-8.2) g/dL Albumin 3.1 L (3.5-5.0) g/dL Urine Protein (Negative) Hyaline Casts (0-2) /lpf Urine Mucus (None) /hpf 02/10/19 Range/Units 11:25 WBC (3.8-10.6) k/uL RBC (4.30-5.90) m/uL Hgb (13.0-17.5) gm/dL Hct (39.0-53.0) % MCH (25.0-35.0) pg MCHC (31.0-37.0) g/dL RDW (11.5-15.5) % Neutrophils # (1.3-7.7) k/uL Lymphocytes # (1.0-4.8) k/uL ABG pH (7.35-7.45) ABG pCO2 (35-45) mmHg ABG pO2 (83-108) mmHg ABG Total CO2 (19-24) mmol/L ABG O2 Saturation (94-97) % VBG pH (7.31-7.41) VBG HCO3 (24-28) mmol/L Chloride (98-107) mmol/L Carbon Dioxide (22-30) mmol/L BUN (9-20) mg/dL Creatinine (0.66-1.25) mg/dL Glucose (74-99) mg/dL POC Glucose (mg/dL) 324 H (75-99) mg/dL Plasma Lactic Acid Freddy (0.7-2.0) mmol/L Calcium (8.4-10.2) mg/dL AST (17-59) U/L Troponin I (0.000-0.034) ng/mL Total Protein (6.3-8.2) g/dL Albumin (3.5-5.0) g/dL Urine Protein (Negative) Hyaline Casts (0-2) /lpf Urine Mucus (None) /hpf Microbiology - Last 24 Hours (Table) 02/09/19 17:20 Blood Culture Gram Stain - Preliminary Blood Blood Culture - Preliminary Strep agalactiae - (group b) 02/09/19 17:20 Blood Culture - Final Blood 02/09/19 19:57 Urine Culture - Preliminary Urine,Catheterized Assessment and Plan (1) Acute on chronic respiratory failure with hypoxia and hypercapnia Narrative/Plan: * Multifactorial CHF superimposed on possible suspected pneumonia with COPD exacerbation * Continue supplemental oxygen * Continue breathing treatments Current Visit: Yes Status: Acute Code(s): J96.21 - ACUTE AND CHRONIC RESPIRATORY FAILURE WITH HYPOXIA; J96.22 - ACUTE AND CHRONIC RESPIRATORY FAILURE WITH HYPERCAPNIA SNOMED Code(s): 17947180102703 (2) Metabolic encephalopathy Narrative/Plan: * Now resolved * Likely secondary to hypotension precipitated by shock septic versus cardiogenic and adrenal insufficiency superimposed on mild Co2 narcosis due to COPD exacerbation Current Visit: Yes Status: Acute Code(s): G93.41 - METABOLIC ENCEPHALOPATHY SNOMED Code(s): 04145869 (3) Sepsis Narrative/Plan: * Patient afebrile, profound leukocytosis 25.8 * Urinalysis negative, repeat chest x-ray today, blood cultures pending * ID following continue regimen of IV vancomycin and Zosyn and valacyclovir Current Visit: Yes Status: Acute Code(s): A41.9 - SEPSIS, UNSPECIFIED ORGANISM SNOMED Code(s): 11341443 (4) Acute kidney injury Narrative/Plan: * Prerenal / cardiorenal * Continue IV fluids 100 mL normal saline per hour Current Visit: Yes Status: Acute Code(s): N17.9 - ACUTE KIDNEY FAILURE, UNSPECIFIED SNOMED Code(s): 30820420 (5) Hypotension Narrative/Plan: * Multifactorial * Suspected septic shock versus adrenal insufficiency * Blood pressure improving on stress dose of steroids Current Visit: No Status: Acute Code(s): I95.9 - HYPOTENSION, UNSPECIFIED SNOMED Code(s): 15494885 (6) Adrenal insufficiency Current Visit: Yes Status: Acute Code(s): E27.40 - UNSPECIFIED ADRENOCORTICAL INSUFFICIENCY SNOMED Code(s): 480936353 (7) Elevated troponin Narrative/Plan: * History of coronary disease with elevated troponin and proBNP * Likely secondary to demand ischemia secondary to profound hypotension * Echocardiogram ordered we'll consult cardiology for further recommendations Current Visit: Yes Status: Acute Code(s): R74.8 - ABNORMAL LEVELS OF OTHER SERUM ENZYMES SNOMED Code(s): 118087061 (8) Systolic CHF Narrative/Plan: * Repeat chest x-ray pending BNP elevated at 10 200 * Previous echocardiogram showing ejection fraction of approximately 35% on echocardiogram in January of last year * Cardiology consulted for further recommendations Current Visit: Yes Status: Acute Code(s): I50.20 - UNSPECIFIED SYSTOLIC (CONGESTIVE) HEART FAILURE SNOMED Code(s): 42713394 (9) COPD exacerbation Narrative/Plan: * Currently on steroids and breathing treatments Current Visit: Yes Status: Acute Code(s): J44.1 - CHRONIC OBSTRUCTIVE PULMONARY DISEASE W (ACUTE) EXACERBATION SNOMED Code(s): 827718668 Plan: * Disposition anticipate discharge in 1-2 days
--- NOTE | 2019-02-10 14:16 | XR ---
EXAMINATION TYPE: XR chest 2V DATE OF EXAM: 02/10/2019 COMPARISON: 02/09/2019 HISTORY: Abnormal labs TECHNIQUE: Frontal and lateral views of the chest are obtained. FINDINGS: There is chronic parenchymal prominence with no new focal consolidation, pleural effusion or pneumothorax. Post CABG changes are seen of the chest with upper limits of normal size of the card iomediastinal silhouette. Generalized osseous demineralization is noted. The cervical fusion device i s partially seen. Mild multilevel degenerative changes of the thoracic spine are present. Flattening of the diaphragms on the lateral view and pulmonary hyperinflation relates underlying COPD. IMPRESSION: Chronic findings with no acute cardiopulmonary process.
[2019-02-10 17:17] LABS: Glucose,Whole Blood 241 mg/dL (75-99)
[2019-02-10] MEDS: ATORVASTATIN 40 MG TAB PO SCH (20:21)
[2019-02-10] MEDS: DULoxetine HCL 30 MG CAPSULE.DR PO SCH (20:21)
[2019-02-10] MEDS: MONTELUKAST 10 MG TAB PO SCH (20:21)
[2019-02-10 20:24] LABS: Glucose,Whole Blood 256 mg/dL (75-99)
--- NOTE | 2019-02-10 23:44 | P.CON ---
Consult Note - . Consult date: 02/10/19 Assessment/Plan:: This is a 58-year-old male who is a very significant recent past medical history with multiple hospitalizations since the spring of last year. He has been having recurrent bouts of sepsis routinely around his right lung pneumonia. Because of the recurrent nature of the pneumonia he did undergo bronchoscopy at which point in time MRSA was isolated. He subsequently has been treated with antibiotic therapy including vancomycin with improvement. He then had recurrent pneumonia and Escherichia coli was found he was then treated with a course of antibiotic therapy with Cipro and did well. However before the completion of the course of antibiotics he again became acutely ill and MRSA was again found. Since that time he's had further bouts of sepsis likely related to underlying pneumonia. He was hospitalized in June at that point and was again thought to have pneumonia and receiving a course of intravenous vancomycin in the home setting. 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 CD4 cell count was very low and HIV testing was negative and patient followed up in the outpatient setting. Patient states that he has received 1 IVIG treatment approximately 95 days ago. Patient had another admission in October of this year for E. coli pneumonia and treated as an outpatient with [facility]. 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 He relates that he did have his outpatient MRI and although we do not have the disc the patient relates that the surgeon instructed him that the tumor was present it was the same size with no evidence of any spread consider had been some concern of some liver lesions that were not seen on his MRI of his abdomen that was performed. Patient presented to [facility] emergency center yesterday with complaints of fever and lethargy, lightheadedness and dizziness. Patient also had a syncopal episode at home and then his contacted EMS to bring him into the hospital. He was found to be hypotensive by EMS. Patient states that he did have a cough with more phlegm production than usual but this seems to have resolved he has numbness morning. He denies any shortness of breath, no nausea, vomiting or diarrhea. No dysuria. Patient was found to be afebrile but states he had a temperature of 102.7 at home. Patient presented with leukocytosis, lactic acidosis, acute kidney injury. He also presented with a blood sugar of 46. Chest x-ray reveals cardiomegaly, postoperative changes. Patient was started on Zosyn and vancomycin and admitted to the selective care unit. At the time of this evaluation, patient's mental status is back to his baseline and he is denying any significant complaints. He does state that he has pain in his right first metacarpal for which he was to see a hand surgeon today.Please see the consult note as dictated by nurse practitioner Mrs. Mari Guerrero. Patient was recently seen in the office and doing very well that point in time. Other than his weakness and ongoing physical therapy has been doing considerably better with some increasing strength. He's had no difficulties except as noted above. Were he had the sudden onset of fever weakness in the onset of a what appears to be syncopal-like event precipitating EMS call and transportation to hospital. He is feeling somewhat better at this time. However is noted there is evidence of positive blood culture with gram-positive cocci. With his history of MRSA we'll continue vancomycin therapy at this time for this treatment. However no gram-negative pathogens and was seen in the Zosyn may be discontinued. The patient does have in his skin the multiple abrasions on the left arm and back. He relates he obtained while he was on the riding lawnmower and received the abrasions from pine trees on the property that he could not avoid with this type of mower. I'll do not appear to the affected he has multiple of these sites. Is noted the patient is immunocompromised and these are the likely portal of entry for the current gram-positive bacteremia. Does not appear to have pneumonia at this time. Echocardiogram is being performed without evidence of endocarditis. The patient has had assessment the past and there was concerns to significant immunocompromise given a low IgG and CD4 cell count. However when the patient was well these levels are recovered on outpatient testing. IgG level can be checked again. He has noted vancomycin therapy for now until we have further data we'll determine if he needs outpatient intravenous antibiotic therapy once pathogen is identified. I agree with evaluation, assessment and plan as dictated by nurse practitioner Mrs. Mari Guerrero.
[2019-02-11] MEDS: HYDROCORTISONE SUCCINATE 100 MG/2 ML VIAL IV SCH ×4 (06:26→23:21)
[2019-02-11 06:27] LABS: Glucose,Whole Blood 180 mg/dL (75-99)
[2019-02-11] MEDS: INSULIN ASPART (NovoLOG) 100 UNIT/ML VIAL SQ SCH ×4 (06:30→21:19)
[2019-02-11] MEDS: valACYclovir HCL 1,000 MG TABLET PO SCH ×2 (08:49→23:21)
[2019-02-11] MEDS: APIXABAN 5 MG TAB PO SCH ×2 (08:49→21:16)
[2019-02-11] MEDS: FLUCONAZOLE 100 MG TAB PO SCH (08:49)
[2019-02-11] MEDS: DULoxetine HCL 30 MG CAPSULE.DR PO SCH ×2 (08:49→21:16)
[2019-02-11] MEDS: PANTOPRAZOLE 40 MG TABLET PO SCH (08:49)
[2019-02-11] MEDS: GABAPENTIN 400 MG CAP PO SCH ×4 (08:49→21:16)
[2019-02-11] MEDS: METOPROLOL TARTRATE 25 MG TAB PO SCH ×2 (08:49→21:16)
[2019-02-11 11:47] LABS: Glucose,Whole Blood 179 mg/dL (75-99)
[2019-02-11 13:13] LABS: Anisocytosis Moderate; Basophils % (A) 0 %; Eosinophils % (A) 0 %; HCT 29.8 % (39.0-53.0); HGB 8.5 gm/dL (13.0-17.5); Hypochromasia Marked; Lymphocytes # (A) 0.5 k/uL (1.0-4.8); Lymphocytes % (A) 3 %; MCH 23.8 pg (25.0-35.0); MCHC 28.4 g/dL (31.0-37.0); MCV 83.9 fL (80.0-100.0); Mean Platelet Volume 8.6; Microcytosis Slight; Monocytes # (A) 0.6 k/uL (0-1.0); Monocytes % (A) 4 %; Neutrophils # (A) 14.5 k/uL (1.3-7.7); Neutrophils % (A) 93 %; Platelet Count 205 k/uL (150-450); RBC 3.56 m/uL (4.30-5.90); RDW 20.4 % (11.5-15.5); WBC 15.7 k/uL (3.8-10.6)
[2019-02-11 13:22] LABS: Anion Gap 4 mmol/L; Blood Urea Nitrogen 43 mg/dL (9-20); Calcium 9.1 mg/dL (8.4-10.2); Carbon Dioxide 27 mmol/L (22-30); Chloride 111 mmol/L (98-107); Glucose 164 mg/dL (74-99); Potassium 4.7 mmol/L (3.5-5.1); Sodium 142 mmol/L (137-145)
[2019-02-11] MEDS ORDERED: SODIUM CHLORIDE 0.65% NASAL SPRAY 44 ML BTL NASAL PRN (16:06)
[2019-02-11] MEDS: VANCOMYCIN 1,500 MG in SODIUM CHLORIDE 0.9% 250 ML IVPB SCH (16:08)
[2019-02-11] MEDS: IPRATROPIUM-ALBUTEROL 3 ML NEB INHALATION PRN (17:18)
[2019-02-11 17:39] LABS: Glucose,Whole Blood 213 mg/dL (75-99)
--- NOTE | 2019-02-11 17:47 | CONS ---
CONSULTATION DATE OF CONSULTATION: 02/10/2019 Mr. Ribera is a 58-year-old gentleman who is seen for cardiac evaluation and abnormal BNP level. This patient's medical history and old charts were reviewed. This patient was primarily admitted because he was found to be febrile. He was very lethargic, dizzy and lightheaded. Patient had a temperature of 102. EMS was called and patient was brought to the emergency room, where he was also found to be hypotensive. This patient has a history of recurrent pneumonia. According to him, he had pneumonia 10 times in the last one year. The patient has some immune deficiency and he is prone to recurrent pneumonia and has been treated multiple times with antibiotics. In the emergency room the patient was also hypotensive, requiring IV fluids. The patient does have a history of coronary artery disease with a prior history of coronary artery bypass surgery. The patient has a moderately impaired left ventricular ejection fraction in the range of 35% to 40%. The patient's previous lab tests are reviewed and patient always has an elevated BNP level in the range of 4000 to 500. The patient denies any definite orthopnea or PND at present. The patient's physical activities are limited. PAST MEDICAL HISTORY: Includes: 1. History of coronary artery bypass surgery. 2. Atrial fibrillation. 3. Prior myocardial infarction. 4. Diabetes. 5. History of sleep apnea. 6. History of multiple episodes of pneumonia. 7. Bowel resection. 8. Cholecystectomy. HOME MEDICATIONS: Home medications included: 1. Synthroid once a day. 2. Neurontin. 3. Norvasc 5 mg daily. 4. Cymbalta. 5. Eliquis 5 mg b.i.d. 6. Lopressor 25 mg b.i.d. 7. Lasix 40 mg daily. 8. Hydrocortisone. 9. Diflucan. 10.Insulin. PHYSICAL EXAMINATION: In the emergency room this patient was found to be hypotensive with a blood pressure of 83. Blood pressure now is 100/70. HEAD and ENT exam is negative. Neck is supple. No significant increase in jugular venous pressure is noted. First and second heart sounds are normal. Lung examination reveals a few scattered rhonchi. ABDOMEN: Soft. EXTREMITIES: There is 1+ leg edema. Patient's white count is 24,000. Electrolytes were normal. Creatinine is 1.45. Hemoglobin is 9.1. The patient's initial troponin was 0.051 and random blood sugar was 46. Patient's venous pH was 7.28 with a bicarb of 22. Arterial blood gases showed PO2 of 51. FINAL IMPRESSION: This patient is admitted with high-grade fever and with possible pneumonia. The patient does not have any clinical evidence of left ventricular failure. A chest x-ray also does not show any evidence of failure. The patient does have an elevated BNP level. Patient has a chronically elevated BNP level. ProBNP level in the range of 5000. In the presence of sepsis, it is difficult to interpret the results of BNP level. The patient does have a moderately impaired left ventricular systolic function. At present I will recommend to continue to treat the patient for his sepsis and pneumonia. There is no evidence of overt congestive cardiac failure. We will repeat the echocardiogram to assess the left ventricular systolic function. In view of the sepsis and hypotension, at present we will withhold the diuretics or any AGNIESZKA inhibitor at present. MMODL / IJN: [id number] /
--- NOTE | 2019-02-11 17:53 | PN ---
PROGRESS NOTE DATE OF SERVICE: 02/11/2019 This patient is feeling better today. He denies any orthopnea or PND. His temperature is normal. Blood pressure is 132/70 mmHg. First and second heart sounds are normal. Lungs are fairly clear to auscultation and percussion. The patient's creatinine is 1.01, hemoglobin 8.5. The results of the echocardiogram are being awaited. I would recommend to continue the patient on the current medications. Patient is started on Lopressor 25 mg b.i.d. We will wait for the results of the echocardiogram and then consider treatment with AGNIESZKA inhibitor if his blood pressure remains stable and sepsis is improved. MMODL / IJN: [id number] /
--- NOTE | 2019-02-11 18:17 | P.PN ---
Subjective Progress Note Date: 02/11/19 Patient seen and examined follow-up, reports that his breathing is improved currently weaned down to 3 L of oxygen which is actually his baseline, reports compliance with CPAP overnight patient denies any headache or chest pain, does report a runny nose, blood pressure continues to be borderline. Leukocytosis down to 15.7 from 28 yesterday, patient remains afebrile. Patient seen by ALICIA Hardin as a patient does have a history of immunocompromise with low IgG and CD4 count. Objective - Vital Signs Vital signs: Vital Signs Temp 97.7 F 02/11/19 16:00 Pulse 88 02/11/19 17:28 Resp 16 02/11/19 17:28 BP 129/66 02/11/19 16:00 Pulse Ox 98 02/11/19 16:00 Intake & Output 02/10/19 02/11/19 02/11/19 18:59 06:59 18:59 Intake Total 480 Output Total 600 1000 Balance -120 -1000 Weight 95.8 kg Intake: Oral 480 Output: Urine 600 1000 Other: Voiding Method Urinal Urinal - Exam Constitutional: No acute distress, conversant, pleasant Eyes: Anicteric sclerae, moist conjunctiva, no lid-lag, PERRLA ENMT: NC/AT,Oropharynx clear, no erythema, exudates Neck:Supple, FROM, no masses, or JVD, No carotid bruits; No thyromegaly Lungs: Clear to auscultation, Clear to percussion, Normal respiratory effort, no accessory muscle use on 4.5 L nasal cannula Cardiovascular: Heart regular in rate and rhythm, No murmurs, gallops, or rubs no peripheral edema Abdominal: Soft Nontender, nom distended, no guarding, no rebound or rigidity, Normoactive bowel sounds No hepatomegaly, No splenomegaly, No palpable mass No abdominal wall hernia noted Skin: Normal temperature, tone, texture, turgor, No induration No subcutaneous nodules, No rash, lesions, No ulcers Extremities:No digital cyanosis No clubbing, Pedal pulses intact and sym metrical Radial pulses intact and symmetrical , No calf tenderness Psychiatric: Alert and oriented to person, place and time, Appropriate affect Intact judgement Neuro: Muscles Strength 5/5 in all 4 extremities, Sensation to light touch grossly present throughout, Cranial nerves II-XII grossly intact. No focal sensory deficits - Labs CBC & Chem 7: 02/11/19 12:44 02/11/19 12:44 Labs: Abnormal Lab Results - Last 24 Hours (Table) 02/10/19 02/11/19 02/11/19 Range/Units 20:23 06:26 11:25 WBC (3.8-10.6) k/uL RBC (4.30-5.90) m/uL Hgb (13.0-17.5) gm/dL Hct (39.0-53.0) % MCH (25.0-35.0) pg MCHC (31.0-37.0) g/dL RDW (11.5-15.5) % Neutrophils # (1.3-7.7) k/uL Lymphocytes # (1.0-4.8) k/uL Chloride (98-107) mmol/L BUN (9-20) mg/dL Glucose (74-99) mg/dL POC Glucose (mg/dL) 256 H 180 H 179 H (75-99) mg/dL 02/11/19 02/11/19 02/11/19 Range/Units 12:44 12:44 17:07 WBC 15.7 H (3.8-10.6) k/uL RBC 3.56 L (4.30-5.90) m/uL Hgb 8.5 L (13.0-17.5) gm/dL Hct 29.8 L (39.0-53.0) % MCH 23.8 L (25.0-35.0) pg MCHC 28.4 L (31.0-37.0) g/dL RDW 20.4 H (11.5-15.5) % Neutrophils # 14.5 H (1.3-7.7) k/uL Lymphocytes # 0.5 L (1.0-4.8) k/uL Chloride 111 H (98-107) mmol/L BUN 43 H (9-20) mg/dL Glucose 164 H (74-99) mg/dL POC Glucose (mg/dL) 213 H (75-99) mg/dL Microbiology - Last 24 Hours (Table) 02/10/19 08:38 Blood Culture Gram Stain - Preliminary Blood 02/10/19 08:38 Blood Culture - Final Blood 02/09/19 19:57 Urine Culture - Final Urine,Catheterized Assessment and Plan (1) Acute on chronic respiratory failure with hypoxia and hypercapnia Narrative/Plan: * Multifactorial CHF superimposed on possible suspected pneumonia with COPD e xacerbation * Continue supplemental oxygen * Continue breathing treatments Current Visit: Yes Status: Acute Code(s): J96.21 - ACUTE AND CHRONIC RESPIRATORY FAILURE WITH HYPOXIA; J96.22 - ACUTE AND CHRONIC RESPIRATORY FAILURE WITH HYPERCAPNIA SNOMED Code(s): 10611090731436 (2) Metabolic encephalopathy Narrative/Plan: * Now resolved * Likely secondary to hypotension precipitated by shock septic versus cardiogenic and adrenal insufficiency superimposed on mild Co2 narcosis due to COPD exacerbation Current Visit: Yes Status: Resolved Code(s): G93.41 - METABOLIC ENCEPHAL OPATHY SNOMED Code(s): 88519124 (3) Sepsis Narrative/Plan: * Patient afebrile, profound leukocytosis improving down to 15.7 from 25.8 * Urinalysis negative, repeat chest x-ray today, blood cultures pending, blood culture preliminary showing strep agalactiae likely contaminant * ID following continue regimen of IV vancomycin and Zosyn and valacyclovir Current Visit: Yes Status: Acute Code(s): A41.9 - SEPSIS, UNSPECIFIED ORGANISM SNOMED Code(s): 15796820 (4) Acute kidney injury Narrative/Plan: * Prerenal / cardiorenal * resolved with IV fluids creatinine down to 1 * Continue IV fluids TKO Current Visit: Yes Status: Resolved Code(s): N17.9 - ACUTE KIDNEY FAILURE, UNSPECIFIED SNOMED Code(s): 69252233 (5) Hypotension Narrative/Plan: * Now resolved * Multifactorial Suspected septic shock versus adrenal insufficiency * Blood pressure improving on stress dose of steroids Current Visit: No Status: Acute Code(s): I95.9 - HYPOTENSION, UNSPECIFIED SNOMED Code(s): 19322313 (6) Adrenal insufficiency Current Visit: Yes Status: Acute Code(s): E27.40 - UNSPECIFIED ADRENOCORTICAL INSUFFICIENCY SNOMED Code(s): 206617503 (7) Elevated troponin Narrative/Plan: * History of coronary disease with elevated troponin and proBNP * Likely secondary to demand ischemia secondary to profound hypotension * Echocardiogram ordered and is pending appreciate cardiology recommendations Current Visit: Yes Status: Acute Code(s): R74.8 - ABNORMAL LEVELS OF OTHER SERUM ENZYMES SNOMED Code(s): 418088696 (8) Systolic CHF Narrative/Plan: * Repeat chest x-ray pending BNP elevated at 10 200 * Previous echocardiogram showing ejection fraction of approximately 35% on echocardiogram in January of last year * Cardiology consulted for further recommendations Current Visit: Yes Status: Acute Code(s): I50.20 - UNSPECIFIED SYSTOLIC (CONGESTIVE) HEART FAILURE SNOMED Code(s): 63988335 (9) COPD exacerbation Narrative/Plan: * Currently on steroids and breathing treatments Current Visit: Yes Status: Acute Code(s): J44.1 - CHRONIC OBSTRUCTIVE PULMONARY DISEASE W (ACUTE) EXACERBATION SNOMED Code(s): 046671344 Plan: * Disposition anticipate discharge in 1-2 days
[2019-02-11] MEDS ORDERED: SALINE NASAL GEL 14.1 GM TUBE TOPICAL PRN (18:18)
--- NOTE | 2019-02-11 20:11 | P.PN ---
Subjective Progress Note Date: 02/11/19 This is a 58-year-old male who is a very significant recent past medical history with multiple hospitalizations since the spring of last year. He has been having recurrent bouts of sepsis routinely around his right lung pneumonia. Because of the recurrent nature of the pneumonia he did undergo bronchoscopy at which point in time MRSA was isolated. He subsequently has been treated with antibiotic therapy including vancomycin with improvement. He then had recurrent pneumonia and Escherichia coli was found he was then treated with a course of antibiotic therapy with Cipro and did well. However before the completion of the course of antibiotics he again became acutely ill and MRSA was again found. Since that time he's had further bouts of sepsis likely related to underlying pneumonia. He was hospitalized in June at that point and was again thought to have pneumonia and receiving a course of intravenous vancomycin in the home setting. 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 CD4 cell count was very low and HIV testing was negative and patient followed up in the outpatient setting. Patient states that he has received 1 IVIG treatment approximately 95 days ago. Patient had another admission in October of this year for E. coli pneumonia and treated as an outpatient with Rocephin and Flagyl. 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 He relates that he did have his outpatient MRI and although we do not have the disc the patient relates that the surgeon instructed him that the tumor was present it was the same size with no evidence of any spread consider had been some concern of some liver lesions that were not seen on his MRI of his abdomen that was performed. Patient presented to [facility] emergency center yesterday with complaints of fever and lethargy, lightheadedness and dizziness. Patient also had a syncopal episode at home and then his contacted EMS to bring him into the hospital. He was found to be hypotensive by EMS. Patient states that he did have a cough with more phlegm production than usual but this seems to have resolved he has numbness morning. He denies any shortness of breath, no nausea, vomiting or diarrhea. No dysuria. Patient was found to be afebrile but states he had a temperature of 102.7 at home. Patient presented with leukocytosis, lactic acidosis, acute kidney injury. He also presented with a blood sugar of 46. Chest x-ray reveals cardiomegaly, postoperative changes. Patient was started on Zosyn and vancomycin and admitted to the selective care unit. At the time of this evaluation, patient's mental status is back to his baseline and he is denying any significant complaints. He does state that he has pain in his right first metacarpal for which he was to see a hand surgeon today. 02/11/2019 patient feeling much better today, less fatigued and fever has resolved. Positive blood cultures reviewed with patient. No new symptoms, and denies new pulmonary symptoms. Objective - Vital Signs Vital signs: Vital Signs Temp 97.7 F 02/11/19 16:00 Pulse 88 02/11/19 17:28 Resp 16 02/11/19 17:28 BP 129/66 02/11/19 16:00 Pulse Ox 98 02/11/19 16:00 Intake & Output 02/11/19 02/11/19 02/12/19 06:59 18:59 06:59 Intake Total 222 Output Total 1000 600 Balance -1000 -378 Weight 95.8 kg Intake: Oral 222 Output: Urine 1000 600 Other: Voiding Method Urinal - Exam This is a 58-year-old male who seems comfortable and in no acute distress. Patient is sitting on the edge of the bed receiving nebulizer treatment. HEENT: Anicteric conjunctiva are pink and moist nasal mucosa grossly intact without significant lesions, there is no thrush. Neck: The neck is supple without significant lymphadenopathy or thyromegaly. Lungs: There are symmetrical air entry, clear to auscultation. No intercostal retractions or accessory muscle usage. Patient is currently on oxygen and CPAP is at bedside. Heart: Regular rate and rhythm with an audible S1-S2, no S3 no S4. There is no significant murmur click or rub, PMI was nondisplaced. Abdomen: Mildly obese Positive bowel sounds soft and nontender without palpable masses or organomegaly. There was no guarding or rebound. Extremities: The upper extremities have excellent no significant petechiae or telangiectasia. Mild edema to the hands and bilateral feet. No splinter hemorrhages were noted. Lower extremities have evidence of some edema but there is wound on the left great toe, which is eschar and not draining. Onychomycosis bilaterally. Neuro: Awake alert oriented to person place and time. There are no acute new gross focal sensory motor deficits. Skin has the abrasions from the yard woek which hare quite improved today. - Labs CBC & Chem 7: 02/11/19 12:44 02/11/19 12:44 Labs: Abnormal Lab Results - Last 24 Hours (Table) 02/10/19 02/11/19 02/11/19 Range/Units 20:23 06:26 11:25 WBC (3.8-10.6) k/uL RBC (4.30-5.90) m/uL Hgb (13.0-17.5) gm/dL Hct (39.0-53.0) % MCH (25.0-35.0) pg MCHC (31.0-37.0) g/dL RDW (11.5-15.5) % Neutrophils # (1.3-7.7) k/uL Lymphocytes # (1.0-4.8) k/uL Chloride (98-107) mmol/L BUN (9-20) mg/dL Glucose (74-99) mg/dL POC Glucose (mg/dL) 256 H 180 H 179 H (75-99) mg/dL 02/11/19 02/11/19 02/11/19 Range/Units 12:44 12:44 17:07 WBC 15.7 H (3.8-10.6) k/uL RBC 3.56 L (4.30-5.90) m/uL Hgb 8.5 L (13.0-17.5) gm/dL Hct 29.8 L (39.0-53.0) % MCH 23.8 L (25.0-35.0) pg MCHC 28.4 L (31.0-37.0) g/dL RDW 20.4 H (11.5-15.5) % Neutrophils # 14.5 H (1.3-7.7) k/uL Lymphocytes # 0.5 L (1.0-4.8) k/uL Chloride 111 H (98-107) mmol/L BUN 43 H (9-20) mg/dL Glucose 164 H (74-99) mg/dL POC Glucose (mg/dL) 213 H (75-99) mg/dL Microbiology - Last 24 Hours (Table) 02/10/19 08:38 Blood Culture Gram Stain - Preliminary Blood Blood Culture - Preliminary Coagulase Negative Staph 02/10/19 08:38 Blood Culture - Final Blood 02/09/19 19:57 Urine Culture - Final Urine,Catheterized Laboratory Results WBC 15.7 k/uL (3.8-10.6) H 02/11/19 12:44 RBC 3.56 m/uL (4.30-5.90) L 02/11/19 12:44 Hgb 8.5 gm/dL (13.0-17.5) L 02/11/19 12:44 Hct 29.8 % (39.0-53.0) L 02/11/19 12:44 MCV 83.9 fL (80.0-100.0) 02/11/19 12:44 MCH 23.8 pg (25.0-35.0) L 02/11/19 12:44 MCHC 28.4 g/dL (31.0-37.0) L 02/11/19 12:44 RDW 20.4 % (11.5-15.5) H 02/11/19 12:44 Plt Count 205 k/uL (150-450) 02/11/19 12:44 Neutrophils % 93 % 02/11/19 12:44 Lymphocytes % 3 % 02/11/19 12:44 Monocytes % 4 % 02/11/19 12:44 Eosinophils % 0 % 02/11/19 12:44 Basophils % 0 % 02/11/19 12:44 Neutrophils # 14.5 k/uL (1.3-7.7) H 02/11/19 12:44 Lymphocytes # 0.5 k/uL (1.0-4.8) L 02/11/19 12:44 Monocytes # 0.6 k/uL (0-1.0) 02/11/19 12:44 Eosinophils # 0.0 k/uL (0-0.7) 02/11/19 12:44 Basophils # 0.0 k/uL (0-0.2) 02/11/19 12:44 Hypochromasia Marked 02/11/19 12:44 Anisocytosis Moderate 02/11/19 12:44 Microcytosis Slight 02/11/19 12:44 PT 10.6 sec (9.0-12.0) 02/09/19 17:20 INR 1.0 (<1.2) 02/09/19 17:20 APTT 23.7 sec (22.0-30.0) 02/09/19 17:20 Sample Site RRA 02/09/19 21:36 ABG pH 7.32 (7.35-7.45) L 02/09/19 21:36 ABG pCO2 49 mmHg (35-45) H 02/09/19 21:36 ABG pO2 51 mmHg (83-108) L* 02/09/19 21:36 ABG HCO3 25 mmol/L (21-25) 02/09/19 21:36 ABG Total CO2 27 mmol/L (19-24) H 02/09/19 21:36 ABG O2 Saturation 83.0 % (94-97) L 02/09/19 21:36 ABG Base Excess -1.0 mmol/L 02/09/19 21:36 Wilson Test Yes 02/09/19 21:36 VBG pH 7.28 (7.31-7.41) L 02/09/19 17:20 VBG pCO2 49 mmHg (37-51) 02/09/19 17:20 VBG HCO3 22 mmol/L (24-28) L 02/09/19 17:20 FiO2 36 % 02/09/19 21:36 Sodium 142 mmol/L (137-145) 02/11/19 12:44 Potassium 4.7 mmol/L (3.5-5.1) 02/11/19 12:44 Chloride 111 mmol/L (98-107) H 02/11/19 12:44 Carbon Dioxide 27 mmol/L (22-30) 02/11/19 12:44 Anion Gap 4 mmol/L 02/11/19 12:44 BUN 43 mg/dL (9-20) H 02/11/19 12:44 Creatinine 1.01 mg/dL (0.66-1.25) 02/11/19 12:44 Est GFR (CKD-EPI)AfAm >90 (>60 ml/min/1.73 sqM) 02/11/19 12:44 Est GFR (CKD-EPI)NonAf 81 (>60 ml/min/1.73 sqM) 02/11/19 12:44 Glucose 164 mg/dL (74-99) H 02/11/19 12:44 POC Glucose (mg/dL) 213 mg/dL (75-99) H 02/11/19 17:07 POC Glu Account Service Associate ID Vivian Benz 02/11/19 17:07 Lactic Ac Sepsis Rflx Y 02/09/19 18:10 Plasma Lactic Acid Freddy 2.0 mmol/L (0.7-2.0) 02/09/19 21:20 Calcium 9.1 mg/dL (8.4-10.2) 02/11/19 12:44 Magnesium 1.7 mg/dL (1.6-2.3) 02/09/19 17:20 Total Bilirubin 0.4 mg/dL (0.2-1.3) 02/10/19 06:20 AST 81 U/L (17-59) H 02/10/19 06:20 ALT 68 U/L (21-72) 02/10/19 06:20 Alkaline Phosphatase 75 U/L (38-126) 02/10/19 06:20 Troponin I 0.051 ng/mL (0.000-0.034) H* 02/09/19 17:20 NT-Pro-B Natriuret Pep 70357 pg/mL 02/09/19 17:20 Total Protein 5.7 g/dL (6.3-8.2) L 02/10/19 06:20 Albumin 3.1 g/dL (3.5-5.0) L 02/10/19 06:20 TSH 2.620 mIU/L (0.465-4.680) 02/09/19 23:12 Urine Color Dark Yellow 02/09/19 19:57 Urine Appearance Clear (Clear) 02/09/19 19:57 Urine pH 5.5 (5.0-8.0) 02/09/19 19:57 Ur Specific [place] 1.027 (1.001-1.035) 02/09/19 19:57 Urine Protein 1+ (Negative) H 02/09/19 19:57 Urine Glucose (UA) Negative (Negative) 02/09/19 19:57 Urine Ketones Negative (Negative) 02/09/19 19:57 Urine Blood Negative (Negative) 02/09/19 19:57 Urine Nitrite Negative (Negative) 02/09/19 19:57 Urine Bilirubin Negative (Negative) 02/09/19 19:57 Urine Urobilinogen 2.0 mg/dL (<2.0) 02/09/19 19:57 Ur Leukocyte Esterase Negative (Negative) 02/09/19 19:57 Urine RBC 2 /hpf (0-5) 02/09/19 19:57 Urine WBC 2 /hpf (0-5) 02/09/19 19:57 Ur Squamous Epith Cells <1 /hpf (0-4) 02/09/19 19:57 Hyaline Casts 37 /lpf (0-2) H 02/09/19 19:57 Granular Casts 615 /lpf (0) 02/09/19 19:57 Urine Mucus Rare /hpf (None) H 02/09/19 19:57 Microbiology 02/10/19 08:38 Blood Blood Culture Gram Stain - Preliminary 02/10/19 08:38 Blood Blood Culture - Preliminary Coagulase Negative Staph 02/10/19 08:38 Blood Blood Culture - Final 02/09/19 19:57 Urine,Catheterized Urine Culture - Final 02/09/19 17:20 Blood Blood Culture Gram Stain - Preliminary 02/09/19 17:20 Blood Blood Culture - Preliminary Strep agalactiae - (group b) 02/09/19 17:20 Blood Blood Culture - Final - Imaging and Cardiology Chest x-ray: report reviewed (no new infiltrates) Assessment and Plan (1) COPD exacerbation Current Visit: Yes Status: Acute Code(s): J44.1 - CHRONIC OBSTRUCTIVE PULMONARY DISEASE W (ACUTE) EXACERBATION SNOMED Code(s): 564967891 (2) Sepsis Current Visit: Yes Status: Acute Code(s): A41.9 - SEPSIS, UNSPECIFIED ORGANISM SNOMED Code(s): 69981667 (3) Gram positive bacterial infection Current Visit: Yes Status: Acute Code(s): A49.9 - BACTERIAL INFECTION, UNSPECIFIED SNOMED Code(s): 401002255 (4) Gram-positive bacteremia Narrative/Plan: Patient was recently seen in the office and doing very well that point in time. Other than his weakness and ongoing physical therapy has been doing considerably better with some increasing strength. He's had no difficulties except as noted above. Were he had the sudden onset of fever weakness in the onset of a what appears to be syncopal-like event precipitating EMS call and transportation to hospital. He is feeling somewhat better at this time. However is noted there is evidence of positive blood culture with gram-positive cocci. With his history of MRSA we'll continue vancomycin therapy at this time for this treatment. However no gram-negative pathogens and was seen in the Zosyn may be discontinued. The patient does have in his skin the multiple abrasions on the left arm and back. He relates he obtained while he was on the riding lawnmower and received the abrasions from [place] on the property that he could not avoid with this type of mower. I'll do not appear to the affected he has multiple of these sites. Is noted the patient is immunocompromised and these are the likely portal of entry for the current gram-positive bacteremia. Does not appear to have pneumonia at this time. Echocardiogram is being performed to evaluate evidence of endocarditis. The patient has had assessment the past and there was concerns to significant immunocompromise given a low IgG and CD4 cell count. However when the patient was well these levels are recovered on outpatient testing. IgG level can be checked again. He has noted vancomycin therapy for now until we have further data we'll determine if he needs outpatient intravenous antibiotic therapy once pathogen is identified. 02/11/2019 feeling better today without new symptoms, fevers have resolved and relates to no new pulmonary symptoms. Blood cultures with GPC now step group b isolated and follow up culture was also positive. Continue Vancomycin for noIV access for home hopefully will be able to use ceftriaxone via [facility]. Source likely the skin abrasions, but the echo is pending. IgG pending. Current Visit: Yes Status: Acute Code(s): R78.81 - BACTEREMIA SNOMED Code(s): 322695870545
[2019-02-11 20:29] LABS: Glucose,Whole Blood 240 mg/dL (75-99)
[2019-02-11] MEDS: ATORVASTATIN 40 MG TAB PO SCH (21:16)
[2019-02-11] MEDS: MONTELUKAST 10 MG TAB PO SCH (21:16)
[2019-02-11] MEDS: LEVOTHYROXINE 50 MCG TAB PO SCH (21:16)
[2019-02-11] MEDS: SODIUM CHLORIDE 0.9% 1,000 ML IV SCH (23:21)
[2019-02-12] MEDS ORDERED: VANCOMYCIN TROUGH DUE 1 EACH MISC MISCELLANE ONE (05:00)
[2019-02-12] MEDS: VANCOMYCIN 1,500 MG in SODIUM CHLORIDE 0.9% 250 ML IVPB SCH (06:34)
[2019-02-12] MEDS: INSULIN ASPART (NovoLOG) 100 UNIT/ML VIAL SQ SCH ×2 (06:34→12:31)
[2019-02-12] MEDS: HYDROCORTISONE SUCCINATE 100 MG/2 ML VIAL IV SCH ×2 (06:34→12:30)
[2019-02-12 06:35] LABS: Glucose,Whole Blood 213 mg/dL (75-99)
[2019-02-12 06:53] LABS: Anisocytosis Slight; Basophils % (A) 0 %; Eosinophils % (A) 0 %; HGB 8.7 gm/dL (13.0-17.5); Hypochromasia Marked; Lymphocytes # (A) 0.5 k/uL (1.0-4.8); Lymphocytes % (A) 4 %; MCH 24.4 pg (25.0-35.0); Mean Platelet Volume 8.6; Microcytosis Slight; Monocytes # (A) 0.5 k/uL (0-1.0); Monocytes % (A) 4 %; Neutrophils # (A) 9.6 k/uL (1.3-7.7); Neutrophils % (A) 90 %; Platelet Count 178 k/uL (150-450); RBC 3.57 m/uL (4.30-5.90); WBC 10.6 k/uL (3.8-10.6)
[2019-02-12 07:09] LABS: Anion Gap 6 mmol/L; Blood Urea Nitrogen 38 mg/dL (9-20); Calcium 8.8 mg/dL (8.4-10.2); Carbon Dioxide 26 mmol/L (22-30); Chloride 108 mmol/L (98-107); Glucose 215 mg/dL (74-99); Sodium 140 mmol/L (137-145)
[2019-02-12] MEDS: IPRATROPIUM-ALBUTEROL 3 ML NEB INHALATION PRN (07:33)
[2019-02-12 09:40] VITALS: TEMP 97.5
[2019-02-12] MEDS: DULoxetine HCL 30 MG CAPSULE.DR PO SCH (09:53)
[2019-02-12] MEDS: APIXABAN 5 MG TAB PO SCH (09:53)
[2019-02-12] MEDS: valACYclovir HCL 1,000 MG TABLET PO SCH (09:53)
[2019-02-12] MEDS: GABAPENTIN 400 MG CAP PO SCH ×2 (09:53→12:31)
[2019-02-12] MEDS: METOPROLOL TARTRATE 25 MG TAB PO SCH (09:53)
[2019-02-12] MEDS: PANTOPRAZOLE 40 MG TABLET PO SCH (09:53)
[2019-02-12] MEDS: FLUCONAZOLE 100 MG TAB PO SCH (09:53)
[2019-02-12] MEDS: SODIUM CHLORIDE 0.9% 1,000 ML IV SCH (09:54)
--- NOTE | 2019-02-12 10:37 | ECHOF ---
Referral Reason:CHF elevated BNP MEASUREMENTS -------- HEIGHT: 0.0 cm WEIGHT: 0.0 kg BP: IVSd: 1.3 cm (0.6 - 1.1) LVIDd: 5.2 cm (3.9 - 5.3) LVPWd: 1.3 cm (0.6 - 1.1) IVSs: 1.8 cm LVIDs: 3.4 cm LVPWs: 1.5 cm LAESV Index (A-L): 32.02 ml/m Ao Diam: 3.2 cm (2.0 - 3.7) AV Cusp: 2.1 cm (1.5 - 2.6) LA Diam: 3.5 cm (2.7 - 3.8) MV EXCURSION: 16.399 mm (> 18.000) MV EF SLOPE: 100 mm/s (70 - 150) EPSS: 2.9 cm MV E Javy: 1.39 m/s MV DecT: 149 ms MV A Javy: 0.98 m/s MV E/A Ratio: 1.42 RAP: 5.00 mmHg RVSP: 45.80 mmHg FINDINGS -------- Sinus rhythm. This was a technically difficult study with suboptimal views. The left ventricular size is normal. There is mild concentric left ventricular hypertrophy. Overa ll left ventricular systolic function is mildly impaired with, an EF between 45 - 50 %. Basal infer ior LV wall motion is hypokinetic. Mid inferior LV wall motion is hypokinetic. Apical inferior LV wall motion is hypokinetic. The right ventricle is normal in size. LA is midly dilated 29-33ml/m2. The right atrial size is normal. Lumason used Interatrial and interventricular septum intact. The aortic valve was not well visualized. The mitral valve leaflets are mildly thickened. Mild mitral annular calcification present. Modera [id number] mitral regurgitation is present. Mild tricuspid regurgitation present. There is mild pulmonary hypertension. The right ventricular systolic pressure, as measured by Doppler, is 45.80mmHg. There is no pulmonic regurgitation present. The aortic root size is normal. Normal inferior vena cava with normal inspiratory collapse consistent with estimated right atrial pre ssure of 5 mmHg. There is no pericardial effusion. CONCLUSIONS -------- 1. Sinus rhythm. 2. This was a technically difficult study with suboptimal views. 3. The left ventricular size is normal. 4. There is mild concentric left ventricular hypertrophy. 5. Overall left ventricular systolic function is mildly impaired with, an EF between 45 - 50 %. 6. Basal inferior LV wall motion is hypokinetic. 7. Mid inferior LV wall motion is hypokinetic. 8. Apical inferior LV wall motion is hypokinetic. 9. The right ventricle is normal in size. 10. LA is midly dilated 29-33ml/m2. 11. The right atrial size is normal. 12. Lumason used 13. Interatrial and interventricular septum intact. 14. The aortic valve was not well visualized. 15. The mitral valve leaflets are mildly thickened. 16. Mild mitral annular calcification present. 17. [id number] mitral regurgitation is present. 18. Mild tricuspid regurgitation present. 19. There is mild pulmonary hypertension. 20. The right ventricular systolic pressure, as measured by Doppler, is 45.80mmHg. 21. There is no pulmonic regurgitation present. 22. The aortic root size is normal. 23. Normal inferior vena cava with normal inspiratory collapse consistent with estimated right atrial pressure of 5 mmHg. 24. There is no pericardial effusion. STUDIO ASSOCIATE: Keira Seo MILA
[2019-02-12 11:53] LABS: Glucose,Whole Blood 234 mg/dL (75-99)
[2019-02-12 13:21] LABS: Immunoglobulin M 32.3 mg/dL (40.0-280.0)
--- NOTE | 2019-02-12 13:39 | PN ---
PROGRESS NOTE This patient is admitted with fever and possible pneumonia and sepsis. The patient had a moderately elevated BNP level. Clinically, there was no evidence of clinically there was no evidence of congestive cardiac failure. The patient's echocardiogram reveals ejection fraction in the range of 45%. This was explained to the patient. The patient has a chronically mildly impaired left ventricular systolic functions and elevated BNP. We will continue the patient on Lopressor and lisinopril. MMODL / TORYN: [id number] /
--- NOTE | 2019-02-12 14:55 | P.DS ---
Providers Date of admission: 02/09/19 19:55 Expected date of discharge: 02/12/19 Attending physician: Zohreh Enriquez MD Consults: 02/09/19 23:36 Consult Physician Routine Consulting Provider: Bran Hardin Consult Reason/Comments: sepsis Do you want consulting provider notified?: Yes, Notify in am 02/10/19 12:47 Consult Physician Routine Consulting Provider: China Mackay Consult Reason/Comments: Elevated troponin, elevated BNP Do you want consulting provider notified?: Yes Primary care physician: Aury Srivastava MD Hospital Course: The patient is a 58 yo M with a PMH of CAD s/p CABG, systolic CHF, paroxysmal A fib (on Eliquis), COPD w/ chronic hypoxic respiratory failure (on home O2), adrenal insufficiency, and multiple hospitalizations due to sepsis from a R sided pneumonia presented to the ED for lethargy, fever, and hypotension. The patient underwent an extensive evaluation in the ED and was noted to be hypotensive to 83/41, w/ leukocytosis of 24, elevated lactate of 2.3, hypoglycemic to 46, and troponin 0.051. He was initially presumed to have pneumonia though the CXR failed to reveal any focal infection. The patient was given a stress dose of hydrocortisone and was given broad spectrum IV abxs. Blood cultures grew group-B strep resistant to Penicillin. Infectious disease was consulted and initially recommended vancomycin which was switched to Ceftriaxone following sensitivities. It was believed that the patient received abrasions as he was mowing his lawn, which were possible source of the infection. He underwent an echocardiogram which revealed LVEF 45-50% w/ no valvular vegetations noted. The patient had a mid-line placed and Ceftriaxone was ordered by infectious disease, to be administered as an outpatient. The patient was seen and examined at the bedside on the day of discharge. He was in good spirits and denied any active complaints. He denied fever, chest pain, SOB, nausea, vomiting, or diaphoresis. Physical Examination General: Non-toxic, in no acute distress, appears stated age, normal weight HEENT: NC/AT, anicteric sclerae, moist conjunctiva, no lid-lag, PERRLA Cardiovascular: S1/S2 wnl, no murmurs, rubs, or gallops Lungs: Clear to auscultation, normal respiratory effort, no accessory muscle use Abdominal: Soft, non-tender, non-distended, no guarding, rebound, or rigidity Skin: Warm, dry Extremities: No edema or contractures Psychiatric: Alert and oriented to person, place and time, appropriate affect Neuro: CN II-XII grossly intact, Strength 5/5 in all 4 extremities, Speech intact, Sensation to light touch grossly intact throughout Discharge diagnosis: Group B strep bacteremia, sepsis resolved; CAD s/p CABG, systolic CHF, paroxysmal A fib (on Eliquis), COPD w/ chronic hypoxic respiratory failure (on home O2), adrenal insufficiency, chronic normocytic anemia A total of 45 minutes of time were spent preparing this complex discharge summary. Patient Condition at Discharge: Stable Plan - Discharge Summary New Discharge Prescriptions: New cefTRIAXone [Rocephin] 2 gm IVPB Q24H #14 bag No Action Levothyroxine Sodium [Synthroid] 50 mcg PO HS Omeprazole [PriLOSEC] 20 mg PO BID Nitroglycerin Sl Tabs [Nitrostat] 0.4 mg SUBLINGUAL Q5M PRN PRN Reason: Chest Pain amLODIPine [Norvasc] 5 mg PO HS Gabapentin [Neurontin] 800 mg PO QID Montelukast [Singulair] 10 mg PO HS #30 tab Insulin Aspart [NovoLOG Flexpen] See Protocol SQ ACHS DULoxetine HCL [Cymbalta] 30 mg PO BID Apixaban [Eliquis] 5 mg PO BID #60 tab Metoprolol Tartrate [Lopressor] 25 mg PO BID #60 tab Loratadine [Claritin] 10 mg PO DAILY #30 tab Furosemide [Lasix] 40 mg PO DAILY #30 tab Hydrocortisone 5 mg PO HS Hydrocortisone 10 mg PO AC-BRKFST Insulin Aspart [NovoLOG Flexpen] 12 units SQ AC-BID@1200,1700 Insulin Aspart [NovoLOG Flexpen] 14 units SQ AC-BRKFST Pioglitazone [Actos] 15 mg PO AC-LUNCH Simvastatin 80 mg PO HS Albuterol Inhaler [Ventolin Hfa Inhaler] 2 puff INHALATION RT-QID PRN PRN Reason: Shortness Of Breath Artificial Tears-Hypromellose [Artificial Tear Drops] 1 drops BOTH EYES QID Buprenorphine [Butrans 10 MCG/HOUR] 1 patch TRANSDERM Q7D Fluconazole [Diflucan] 200 mg PO DAILY Insulin Glargine,Hum.rec.anlog [Lantus Solostar] 30 unit SQ BID Ipratropium-Albuterol Nebulize [Duoneb 0.5 mg-3 mg/3 ml Soln] 3 ml INHALATION RT-QID Lisinopril [Zestril] 5 mg PO DAILY Multivitamins, Thera [Multivitamin (formulary)] 1 tab PO AC-LUNCH valACYclovir HCL [Valacyclovir] 1,000 mg PO BID Vitamin B Complex 1 cap PO AC-LUNCH Discharge Medication List Levothyroxine Sodium [Synthroid] 50 mcg PO HS 02/01/14 [History] Nitroglycerin Sl Tabs [Nitrostat] 0.4 mg SUBLINGUAL Q5M PRN 02/01/14 [History] Omeprazole [PriLOSEC] 20 mg PO BID 02/01/14 [History] Gabapentin [Neurontin] 800 mg PO QID 05/13/15 [History] amLODIPine [Norvasc] 5 mg PO HS 05/13/15 [History] Montelukast [Singulair] 10 mg PO HS #30 tab 11/21/16 [Rx] Insulin Aspart [NovoLOG Flexpen] See Protocol SQ ACHS 02/10/17 [History] DULoxetine HCL [Cymbalta] 30 mg PO BID 09/25/17 [History] Apixaban [Eliquis] 5 mg PO BID #60 tab 02/13/18 [Rx] Metoprolol Tartrate [Lopressor] 25 mg PO BID #60 tab 02/13/18 [Rx] Loratadine [Claritin] 10 mg PO DAILY #30 tab 05/05/18 [Rx] Furosemide [Lasix] 40 mg PO DAILY #30 tab 07/07/18 [Rx] Hydrocortisone 5 mg PO HS 10/24/18 [History] Hydrocortisone 10 mg PO AC-BRKFST 10/24/18 [History] Insulin Aspart [NovoLOG Flexpen] 12 units SQ AC-BID@1200,1700 10/24/18 [History] Insulin Aspart [NovoLOG Flexpen] 14 units SQ AC-BRKFST 10/24/18 [History] Pioglitazone [Actos] 15 mg PO AC-LUNCH 10/24/18 [History] Simvastatin 80 mg PO HS 10/24/18 [History] Albuterol Inhaler [Ventolin Hfa Inhaler] 2 puff INHALATION RT-QID PRN 02/09/19 [History] Artificial Tears-Hypromellose [Artificial Tear Drops] 1 drops BOTH EYES QID 02/09/19 [History] Buprenorphine [Butrans 10 MCG/HOUR] 1 patch TRANSDERM Q7D 02/09/19 [History] Fluconazole [Diflucan] 200 mg PO DAILY 02/09/19 [History] Insulin Glargine,Hum.rec.anlog [Lantus Solostar] 30 unit SQ BID 02/09/19 [History] Ipratropium-Albuterol Nebulize [Duoneb 0.5 mg-3 mg/3 ml Soln] 3 ml INHALATION RT-QID 02/09/19 [History] Lisinopril [Zestril] 5 mg PO DAILY 02/09/19 [History] Multivitamins, Thera [Multivitamin (formulary)] 1 tab PO AC-LUNCH 02/09/19 [History] Vitamin B Complex 1 cap PO AC-LUNCH 02/09/19 [History] valACYclovir HCL [Valacyclovir] 1,000 mg PO BID 02/09/19 [History] cefTRIAXone [Rocephin] 2 gm IVPB Q24H #14 bag 02/12/19 [Rx] Follow up Appointment(s)/Referral(s): Bran Hardin MD [STAFF PHYSICIAN] - [facility] [NON-STAFF] - Aury Srivastava MD [Primary Care Provider] - 02/16/19 11:15 am (Saturday) Ambulatory/Diagnostic Orders: Basic Metabolic Panel [LAB.AMB] Location: None Selected Complete Blood Count w/diff [LAB.AMB] Location: None Selected
[2019-02-12 16:12] VITALS: BP 171/84; PULSE 67; RESP 19
[2019-02-13] MEDS ORDERED: LISINOPRIL 5 MG TAB PO SCH (09:00)
== END 2019-02-12 17:22 | disposition home health service (06) | DRG 871 ==
LOC: EC 17:02 → 3SCARD 19:55
PROVIDERS: ADMIT Internal Medicine; ATTEND Internal Medicine
PROC: 05HD33Z Insertion of Infusion Device into Right Cephalic Vein, Percutaneous Approach (ICD-10-PCS; principal; 2019-02-12 16:00)
DX: A40.1 Sepsis due to streptococcus, group B (principal); J18.9 Pneumonia, unspecified organism; R65.21 Severe sepsis with septic shock; J96.22 Acute and chronic respiratory failure with hypercapnia; J96.21 Acute and chronic respiratory failure with hypoxia; N17.0 Acute kidney failure with tubular necrosis; G93.41 Metabolic encephalopathy; D84.9 Immunodeficiency, unspecified; E27.40 Unspecified adrenocortical insufficiency; E87.2 Acidosis; I50.20 Unspecified systolic (congestive) heart failure; J44.0 Chronic obstructive pulmonary disease with (acute) lower respiratory infection; J44.1 Chronic obstructive pulmonary disease with (acute) exacerbation; D64.9 Anemia, unspecified; E03.9 Hypothyroidism, unspecified; E11.42 Type 2 diabetes mellitus with diabetic polyneuropathy; E11.649 Type 2 diabetes mellitus with hypoglycemia without coma; E78.5 Hyperlipidemia, unspecified; G47.33 Obstructive sleep apnea (adult) (pediatric); G89.29 Other chronic pain; I11.0 Hypertensive heart disease with heart failure; I25.10 Atherosclerotic heart disease of native coronary artery without angina pectoris; I25.2 Old myocardial infarction; I25.5 Ischemic cardiomyopathy; I48.0 Paroxysmal atrial fibrillation; M15.9 Polyosteoarthritis, unspecified; S40.812A Abrasion of left upper arm, initial encounter; T38.0X5A Adverse effect of glucocorticoids and synthetic analogues, initial encounter; E11.65 Type 2 diabetes mellitus with hyperglycemia; Z16.11 Resistance to penicillins; Z79.01 Long term (current) use of anticoagulants; Z79.4 Long term (current) use of insulin; Z79.890 Hormone replacement therapy; Z79.899 Other long term (current) drug therapy; Z80.1 Family history of malignant neoplasm of trachea, bronchus and lung; Z80.3 Family history of malignant neoplasm of breast; Z82.49 Family history of ischemic heart disease and other diseases of the circulatory system; Z83.3 Family history of diabetes mellitus; Z85.828 Personal history of other malignant neoplasm of skin; Z86.14 Personal history of Methicillin resistant Staphylococcus aureus infection; Z86.19 Personal history of other infectious and parasitic diseases; Z87.01 Personal history of pneumonia (recurrent); Z87.891 Personal history of nicotine dependence; Z95.1 Presence of aortocoronary bypass graft; Z95.5 Presence of coronary angioplasty implant and graft; Z96.641 Presence of right artificial hip joint; Z99.81 Dependence on supplemental oxygen; Z99.89 Dependence on other enabling machines and devices; Z88.5 Allergy status to narcotic agent; Z88.8 Allergy status to other drugs, medicaments and biological substances; Z90.49 Acquired absence of other specified parts of digestive tract; R74.8 Abnormal levels of other serum enzymes
CPT/HCPCS: 36410; 36415; 36600; 71046; 76937; 80048; 80053; 80202; 81001; 82784; 82803; 82805; 83605; 83735; 83880; 84443; 84484; 85025; 85610; 85730; 87040; 87077; 87086; 87186; 93005; 93306; 94640; 94760; 96361; 96365; 96366; 96367; 96368; 96375; 99285

== ENCOUNTER 2019-02-23 13:10 | Inpatient (IN) | payer MEDICARE, OTHER ==
[2019-02-23 15:14] LABS: Anisocytosis Slight; Basophils % (A) 0 %; Eosinophils # (A) 0.3 k/uL (0-0.7); Eosinophils % (A) 3 %; HCT 39.4 % (39.0-53.0); HGB 11.4 gm/dL (13.0-17.5); Hypochromasia Marked; Lymphocytes # (A) 1.1 k/uL (1.0-4.8); Lymphocytes % (A) 9 %; MCH 24.1 pg (25.0-35.0); MCV 83.1 fL (80.0-100.0); Mean Platelet Volume 8.1; Microcytosis Slight; Monocytes # (A) 0.7 k/uL (0-1.0); Monocytes % (A) 6 %; Neutrophils # (A) 10.4 k/uL (1.3-7.7); Neutrophils % (A) 81 %; Platelet Count 296 k/uL (150-450); RBC 4.75 m/uL (4.30-5.90); RDW 19.5 % (11.5-15.5); WBC 12.9 k/uL (3.8-10.6)
[2019-02-23 15:24] LABS: ALT 44 U/L (21-72); AST 43 U/L (17-59); African American GFR (CKD) >90 (>60 ml/min/1.73 sqM); Albumin 4.2 g/dL (3.5-5.0); Alkaline Phosphatase 108 U/L (38-126); Amylase 107 U/L (30-110); Anion Gap 9 mmol/L; Blood Urea Nitrogen 35 mg/dL (9-20); Calcium 9.2 mg/dL (8.4-10.2); Carbon Dioxide 37 mmol/L (22-30); Chloride 98 mmol/L (98-107); Glucose 97 mg/dL (74-99); Lipase 235 U/L (23-300); Sodium 144 mmol/L (137-145); Total Bilirubin 0.5 mg/dL (0.2-1.3); Total Protein 7.6 g/dL (6.3-8.2)
[2019-02-23] MEDS ORDERED: SODIUM CHLORIDE 0.9% 500 ML 500 ML IV ONE (16:10)
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
[2019-02-23 18:20] LABS: Appearance,Urine Clear (Clear); Bilirubin,Urine Negative (Negative); Blood,Urine Negative (Negative); Color,Urine Yellow; Glucose,Urine (UA) Negative (Negative); Ketones,Urine Negative (Negative); Leukocyte Esterase,Urine Negative (Negative); Nitrite,Urine Negative (Negative); Protein,Urine Trace (Negative); Specific Gravity,Urine 1.024 (1.001-1.035); Urobilinogen,Urine <2.0 mg/dL (<2.0)
[2019-02-23] MEDS ORDERED: ACETAMINOPHEN TAB 325 MG TAB PO STA (18:26)
--- NOTE | 2019-02-23 18:48 | CT ---
EXAMINATION TYPE: CT abdomen pelvis w con DATE OF EXAM: 02/23/2019 COMPARISON: CT 12/07/2016 HISTORY: Epigastric pain, nausea CT DLP: 1376.9 mGycm Automated exposure control for dose reduction was used. TECHNIQUE: Helical acquisition of images was performed from the lung bases through the pelvis. CONTRAST: Performed without Oral Contrast and with IV Contrast, patient injected with 100 mL of Isovu e 300. FINDINGS: VISUALIZED SUPRADIAPHRAGMATIC STRUCTURES: No acute findings. However, mild cardiomegaly with panchamb er enlargement and coronary calcifications. LIVER/GB: No significant abnormality is appreciated. PANCREAS: No significant abnormality is seen. SPLEEN: No significant abnormality is seen. ADRENALS: No significant abnormality is seen. KIDNEYS: No significant abnormality is seen. RETROPERITONEAL ADENOPATHY: None visualized REPRODUCTIVE ORGANS: No significant abnormality is seen URINARY BLADDER: No significant abnormality is seen. PELVIC ADENOPATHY: None visualized. OSSEOUS STRUCTURES: No significant abnormality is seen. OTHER: No acute vascular findings. BOWEL: Several small bowel loops are mildly dilated, up to 3.5 cm caliber. There is no pneumatosis o r pneumoperitoneum. Only scant peritoneal fluid is identified in the right lower quadrant, likely mariya ctive. Caliber change appears to be distal ileum and, without CT evident etiology demonstrated, adhes ions would be the suspected etiology. The supporting mesenteric vasculature and mesentery itself is u nremarkable. The appendix has normal appearance. The dilated loops of bowel include the entire ileum and the dista l 2/3 of the jejunum. The colon is nondilated and has fecal material and gas. IMPRESSION: MILD-MODERATE SMALL BOWEL OBSTRUCTION.
[2019-02-23] MEDS ORDERED: cefTRIAXone IN SWFI 1,000 MG/10 ML SYRINGE IVP STA ×2 (19:02→19:21)
[2019-02-23] MEDS ORDERED: MORPHINE SULFATE 4 MG/ML SYRINGE IVP STA (19:22)
[2019-02-23] MEDS ORDERED: ONDANSETRON 4 MG/2 ML VIAL IVP STA (19:22)
[2019-02-23] MEDS ORDERED: NALOXONE 0.4 MG/ML 1 ML VIAL IV PRN (19:23)
[2019-02-23] MEDS ORDERED: ONDANSETRON 4 MG/2 ML VIAL IVP PRN (19:23)
[2019-02-23] MEDS: SODIUM CHLORIDE 0.9% 1,000 ML IV SCH (19:28)
--- NOTE | 2019-02-23 20:20 | XR ---
EXAMINATION: XR chest 2V DATE AND TIME: 02/23/2019 7:16 PM CLINICAL INDICATION: PHH; Pain TECHNIQUE: Departmental protocol COMPARISON: 02/10/2019 FINDINGS: The lungs are clear. The pleural spaces are negative. The cardiac silhouette is mildly enlarged. Sternal sutures and mediastinal clips are redemonstrated. The remainder of the mediastinal silhouette is unremarkable. The skeletal structures and soft tissues are negative for acute findings. IMPRESSION: No acute process.
[2019-02-23 23:54] LABS: Glucose,Whole Blood 98 mg/dL (75-99)
--- NOTE | 2019-02-24 00:09 | XR ---
EXAM: XR Chest, 1 View CLINICAL HISTORY: ng tube placement TECHNIQUE: Frontal view of the chest. COMPARISON: No relevant prior studies available. FINDINGS: Limitations: Technique. Lungs: Hypoventilatory lungs. Bibasilar opacities are favored to represent atelectasis. Pleural space: Unremarkable. No pneumothorax. Heart: Stable cardiomediastinal silhouette. Mediastinum: Stable postoperative mediastinum. Bones/joints: No acute osseous abnormality. Tubes, lines and devices: The terminus of an esophagogastric tube is not well-seen and likely projects over the proximal stomach. IMPRESSION: Limited exam. Esophagogastric tube likely terminates in the proximal stomach.
[2019-02-24] MEDS ORDERED: HYDROmorphone 1 MG/ML 1 ML SYRINGE IVP PRN (00:36)
[2019-02-24 07:11] LABS: Glucose,Whole Blood 108 mg/dL (75-99)
[2019-02-24] MEDS: SODIUM CHLORIDE 0.9% 1,000 ML IV SCH ×2 (07:42→12:12)
[2019-02-24] MEDS: MORPHINE SULFATE 4 MG/ML SYRINGE IV PRN ×2 (10:13→16:09)
[2019-02-24 12:07] LABS: Glucose,Whole Blood 133 mg/dL (75-99)
[2019-02-24] MEDS ORDERED: ALBUTEROL NEBULIZED 2.5 MG/3 ML INHALATION PRN (12:35)
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
[2019-02-24] MEDS: PANTOPRAZOLE 40 MG/10 ML VIAL IVP SCH (12:59)
[2019-02-24] MEDS: GABAPENTIN 400 MG CAP PO SCH ×3 (12:59→22:22)
[2019-02-24] MEDS: ARTIFICIAL TEARS-HYPROMELLOSE DROPS 15 ML BTL BOTH EYES SCH ×3 (13:24→22:22)
[2019-02-24] MEDS ORDERED: HYDROCORTISONE SUCCINATE 100 MG/2 ML VIAL IV STA (14:24)
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
[2019-02-24] MEDS: IPRATROPIUM-ALBUTEROL 3 ML NEB INHALATION SCH ×2 (15:44→20:00)
[2019-02-24] MEDS: HEPARIN SODIUM,PORCINE 5,000 UNIT/ML 1 ML VIAL SQ SCH (15:56)
[2019-02-24 17:11] LABS: Glucose,Whole Blood 180 mg/dL (75-99)
[2019-02-24] MEDS: INSULIN ASPART (NovoLOG) 100 UNIT/ML VIAL SQ SCH ×2 (17:21→21:56)
[2019-02-24 20:19] LABS: Glucose,Whole Blood 135 mg/dL (75-99)
[2019-02-24] MEDS ORDERED: HYDROCORTISONE 10 MG TAB PO SCH (21:00)
[2019-02-24] MEDS: amLODIPine 5 MG TAB PO SCH (21:56)
[2019-02-24] MEDS: INSULIN DETEMIR (LEVEMIR) 100 UNIT/ML SYR SQ SCH (21:56)
[2019-02-24] MEDS ORDERED: ACETAMINOPHEN TAB 325 MG TAB PO PRN (22:13)
[2019-02-24] MEDS: HYDROCORTISONE SUCCINATE 100 MG/2 ML VIAL IV SCH (22:21)
[2019-02-24] MEDS: LEVOTHYROXINE 50 MCG TAB PO SCH (22:21)
[2019-02-24] MEDS: METOPROLOL TARTRATE 25 MG TAB PO SCH (22:21)
[2019-02-24] MEDS: DULoxetine HCL 30 MG CAPSULE.DR PO SCH (22:21)
[2019-02-24] MEDS: valACYclovir HCL 1,000 MG TABLET PO SCH (22:22)
[2019-02-24] MEDS: MONTELUKAST 10 MG TAB PO SCH (22:22)
[2019-02-25] MEDS: HEPARIN SODIUM,PORCINE 5,000 UNIT/ML 1 ML VIAL SQ SCH ×4 (00:59→23:29)
[2019-02-25] MEDS: SODIUM CHLORIDE 0.9% 1,000 ML IV SCH ×3 (03:07→21:57)
[2019-02-25 07:13] LABS: Glucose,Whole Blood 119 mg/dL (75-99)
[2019-02-25] MEDS: IPRATROPIUM-ALBUTEROL 3 ML NEB INHALATION SCH ×4 (07:25→20:56)
[2019-02-25] MEDS ORDERED: HYDROCORTISONE 10 MG TAB PO SCH (07:30)
[2019-02-25] MEDS: INSULIN ASPART (NovoLOG) 100 UNIT/ML VIAL SQ SCH ×4 (07:46→21:57)
[2019-02-25] MEDS: MORPHINE SULFATE 4 MG/ML SYRINGE IV PRN ×3 (08:19→17:34)
[2019-02-25] MEDS: ARTIFICIAL TEARS-HYPROMELLOSE DROPS 15 ML BTL BOTH EYES SCH ×4 (08:22→21:58)
[2019-02-25] MEDS: LORATADINE 10 MG TAB PO SCH (08:23)
[2019-02-25] MEDS: FLUCONAZOLE 100 MG TAB PO SCH (08:23)
[2019-02-25] MEDS: DULoxetine HCL 30 MG CAPSULE.DR PO SCH ×2 (08:23→21:58)
[2019-02-25] MEDS: GABAPENTIN 400 MG CAP PO SCH ×4 (08:23→21:58)
[2019-02-25] MEDS: PANTOPRAZOLE 40 MG/10 ML VIAL IVP SCH (08:24)
[2019-02-25] MEDS: valACYclovir HCL 1,000 MG TABLET PO SCH ×2 (08:24→21:58)
[2019-02-25 08:33] LABS: Anisocytosis Slight; Basophils % (A) 0 %; Eosinophils # (A) 0.1 k/uL (0-0.7); Eosinophils % (A) 1 %; HCT 33.9 % (39.0-53.0); Hypochromasia Marked; Lymphocytes # (A) 1.1 k/uL (1.0-4.8); Lymphocytes % (A) 16 %; MCH 24.5 pg (25.0-35.0); MCV 84.6 fL (80.0-100.0); Mean Platelet Volume 7.9; Monocytes # (A) 0.5 k/uL (0-1.0); Monocytes % (A) 7 %; Neutrophils # (A) 5.2 k/uL (1.3-7.7); Neutrophils % (A) 72 %; Platelet Count 239 k/uL (150-450); RBC 4.01 m/uL (4.30-5.90); RDW 19.1 % (11.5-15.5); WBC 7.2 k/uL (3.8-10.6)
[2019-02-25 08:34] LABS: Calcium 8.2 mg/dL (8.4-10.2); Magnesium 1.7 mg/dL (1.6-2.3); Phosphorus 5.2 mg/dL (2.5-4.5); Potassium 4.4 mmol/L (3.5-5.1)
[2019-02-25] MEDS: HYDROCORTISONE SUCCINATE 100 MG/2 ML VIAL IV SCH ×2 (08:36→21:58)
[2019-02-25 08:37] LABS: HGB 9.8 gm/dL (13.0-17.5)
[2019-02-25] MEDS: LISINOPRIL 5 MG TAB PO SCH (08:40)
[2019-02-25] MEDS: METOPROLOL TARTRATE 25 MG TAB PO SCH ×2 (08:40→21:57)
--- NOTE | 2019-02-25 11:38 | P.PN ---
Subjective Progress Note Date: 02/25/19 Principal diagnosis: Patient is a 58-year-old male with a past medical history of diabetes mellitus type 2 insulin requiring, hypertension, dyslipidemia, systolic congest julio heart failure with last ejection fraction 45-50%, and adrenal insufficiency requiring twice daily Cortef who presented to the ER with complaints of abdominal pain. On arrival to the ER his vital signs within normal limits. White blood cell count was slightly elevated at 12.9. Laboratory analysis is otherwise unremarkable. Urinalysis negative. CT abdomen and pelvis showed partial small bowel obstruction with concern for adhesions. He was started on IV fluids, made nothing by mouth, and had an nasogastric tube placed. He was admitted for further monitoring. We're asked to consult regarding his adrenal insufficiency and diabetic management. He was recently hospitalized here from 02/09 through 02/12 group B strep bacteremia related to infection of the skin. He is due to complete his Rocephin therapy after his dose on 01/26. The patient seen and examined at bedside. NG tube to suction, this had approximately 200 mL of bilious fluid out. Patient denies any bowel movement denies passing gas denies any chest pain or shortness of breath, currently nothing by mouth except ice chips and meds. No acute events overnight Objective - Vital Signs Vital signs: Vital Signs Temp 98.6 F 02/25/19 07:00 Pulse 77 02/25/19 11:33 Resp 14 02/25/19 07:00 BP 119/74 02/25/19 07:00 Pulse Ox 99 02/25/19 08:38 Intake & Output 02/24/19 02/25/19 02/25/19 18:59 06:59 18:59 Intake Total 850 900 Output Total 100 Balance 750 900 Intake: IV 850 900 Sodium Chloride 0.9% 1, 800 900 000 ml @ 75 mls/hr IV . [id number] [facility] Rx#:[id number] cefTRIAXone 2 gm In 50 Sodium Chloride 0.9% 50 ml @ 100 mls/hr IVPB Q24HR [facility] Rx#:[id number] Output: Gastric Drainage 100 Other: Voiding Method Urinal Urinal - Exam Constitutional: No acute distress, conversant, pleasant Eyes: Anicteric sclerae, moist conjunctiva, no lid-lag, PERRLA ENMT: NC/AT,Oropharynx clear, no erythema, exudates, NG tube in place Neck:Supple, FROM, no masses, or JVD, No carotid bruits; No thyromegaly Lungs: Diminished bilaterally Clear to auscultation, Clear to percussion, Normal respiratory effort, no accessory muscle use Cardiovascular: Heart regular in rate and rhythm, No murmurs, gallops, or rubs no peripheral edema Abdominal: Soft tender to palpation in the mid abdomen, slightly distended, no guarding, no rebound or rigidity, hypoactive bowel sounds Skin: Normal temperature, tone, texture, turgor, No induration No subcutaneous nodules, No rash, lesions, No ulcers Extremities:No digital cyanosis No clubbing, Pedal pulses intact and symmetrical Radial pulses intact and symmetrical Normal gait and station, No calf tenderness Psychiatric: Alert and oriented to person, place and time, Appropriate affect Intact judgement Neuro: Muscles Strength 5/5 in all 4 extremities, Sensation to light touch grossly present throughout, Cranial nerves II-XII grossly intact. No focal sensory deficits - Labs CBC & Chem 7: 02/25/19 08:02 02/25/19 08:02 Labs: Abnormal Lab Results - Last 24 Hours (Table) 02/24/19 02/24/19 02/24/19 Range/Units 11:51 16:56 20:18 RBC (4.30-5.90) m/uL Hgb (13.0-17.5) gm/dL Hct (39.0-53.0) % MCH (25.0-35.0) pg MCHC (31.0-37.0) g/dL RDW (11.5-15.5) % Carbon Dioxide (22-30) mmol/L BUN (9-20) mg/dL Creatinine (0.66-1.25) mg/dL Glucose (74-99) mg/dL POC Glucose (mg/dL) 133 H 180 H 135 H (75-99) mg/dL Calcium (8.4-10.2) mg/dL Phosphorus (2.5-4.5) mg/dL 02/25/19 02/25/19 02/25/19 Range/Units 06:52 08:02 08:02 RBC 4.01 L (4.30-5.90) m/uL Hgb 9.8 L D (13.0-17.5) gm/dL Hct 33.9 L (39.0-53.0) % MCH 24.5 L (25.0-35.0) pg MCHC 29.0 L (31.0-37.0) g/dL RDW 19.1 H (11.5-15.5) % Carbon Dioxide 35 H (22-30) mmol/L BUN 41 H (9-20) mg/dL Creatinine 1.77 H (0.66-1.25) mg/dL Glucose 111 H (74-99) mg/dL POC Glucose (mg/dL) 119 H (75-99) mg/dL Calcium 8.2 L (8.4-10.2) mg/dL Phosphorus 5.2 H (2.5-4.5) mg/dL Assessment and Plan Plan: Small bowel obstruction - management per surgery - NPO with NGT in place - pain control - antiemetics Recent group B strep bacteremia -We'll have completed Rocephin therapy on 02/26 -Continue 2 g every 24 hours until then DM 2 - Insulin requiring - sliding scale, add low dose levemir as takes 60 of lantus at home - follow BS closely -By mouth cortisone on hold Adrenal insufficiency - NPO will hold oral cortef - Missed 2 doses - Start IV coftef until tolerating oral, considering may have delay absorption until SBO clears Obstructive sleep apnea -BiPAP once NG tube is out -Keep head of bed greater than 45 and sleeping COPD without exacerbation-chronic hypoxic respiratory failure with baseline 2 L nasal cannula -DuoNeb's 4 times daily -Pulmonary hygiene -Continue oxygen therapy HTN, controlled - continue home medications - follow blood pressures HLD - resume statin Compensated systolic congestive heart failure -Lasix on hold -Limit IV fluids -Compensated -Lisinopril, metoprolol -Strict I's Atrial fibrillation rate controlled - Continue current medications - Monitor blood pressures - eplquis on hold per surgery recs - resume when appropriate per surgery Chronic: Hypothyroidism Coronary artery disease Neuropathy Chronic anemia History of pancreatic neuroendocrine tumor Thank you for allowing us to participate in the care of this pleasant patient. DVT: Heparin
[2019-02-25 12:14] LABS: Glucose,Whole Blood 106 mg/dL (75-99)
--- NOTE | 2019-02-25 13:46 | P.PN ---
Progress Note - Text Progress Note Date: 02/25/19 The patient feels better. He is actually had some flatus. On exam his vital signs are stable. His abdomen soft. There is minimal tenderness. There is no rebound or guarding. There is minimal distention. Resolving partial small bowel obstruction. Patient will have his nasogastric tube removed area and he'll start a clear liquid diet.
[2019-02-25 17:11] LABS: Glucose,Whole Blood 157 mg/dL (75-99)
[2019-02-25 20:11] LABS: Glucose,Whole Blood 186 mg/dL (75-99)
[2019-02-25] MEDS: INSULIN DETEMIR (LEVEMIR) 100 UNIT/ML SYR SQ SCH (21:46)
[2019-02-25 21:55] LABS: Glucose,Whole Blood 154 mg/dL (75-99)
[2019-02-25] MEDS: LEVOTHYROXINE 50 MCG TAB PO SCH (21:57)
[2019-02-25] MEDS: amLODIPine 5 MG TAB PO SCH (21:58)
[2019-02-25] MEDS: MONTELUKAST 10 MG TAB PO SCH (21:58)
--- NOTE | 2019-02-26 07:00 | XR ---
EXAM: XR Chest, 1 View CLINICAL HISTORY: ITS.REASON XR Reason: ng tube TECHNIQUE: Frontal view of the chest. COMPARISON: 02/23/19. FINDINGS: Feeding tube terminates in the right lower chest, compatible with endobronchial placement. Patchy bilateral lung opacities, possible atelectasis or pneumonitis. Additional findings similar to prior. IMPRESSION: Feeding tube terminates in the right lower chest, compatible with endobronchial placement. Recommend repositioning. <MYCVCSECTION> Critical Value Communications 02/26/19 07:10 Verify Receipt with Nurse Verified receipt with AKASH Seay in 4S on 02/26 07:11 (-04:00)
[2019-02-26 07:15] LABS: Glucose,Whole Blood 258 mg/dL (75-99)
[2019-02-26] MEDS: IPRATROPIUM-ALBUTEROL 3 ML NEB INHALATION SCH ×5 (07:30→20:12)
[2019-02-26] MEDS: PANTOPRAZOLE 40 MG/10 ML VIAL IVP SCH (09:04)
[2019-02-26] MEDS: HYDROCORTISONE SUCCINATE 100 MG/2 ML VIAL IV SCH ×2 (09:05→22:01)
[2019-02-26] MEDS: METOPROLOL TARTRATE 25 MG TAB PO SCH ×2 (09:07→22:00)
[2019-02-26] MEDS: LISINOPRIL 5 MG TAB PO SCH (09:07)
[2019-02-26] MEDS: HEPARIN SODIUM,PORCINE 5,000 UNIT/ML 1 ML VIAL SQ SCH ×3 (09:07→23:26)
[2019-02-26] MEDS: LORATADINE 10 MG TAB PO SCH (09:07)
[2019-02-26] MEDS: valACYclovir HCL 1,000 MG TABLET PO SCH ×2 (09:08→22:00)
[2019-02-26] MEDS: GABAPENTIN 400 MG CAP PO SCH ×4 (09:08→22:00)
[2019-02-26] MEDS: FLUCONAZOLE 100 MG TAB PO SCH (09:08)
[2019-02-26] MEDS: DULoxetine HCL 30 MG CAPSULE.DR PO SCH ×2 (09:08→22:00)
[2019-02-26] MEDS: SODIUM CHLORIDE 0.9% 1,000 ML IV SCH (09:09)
[2019-02-26] MEDS: ARTIFICIAL TEARS-HYPROMELLOSE DROPS 15 ML BTL BOTH EYES SCH ×4 (09:10→22:02)
[2019-02-26] MEDS: INSULIN ASPART (NovoLOG) 100 UNIT/ML VIAL SQ SCH ×4 (09:10→22:01)
[2019-02-26 09:32] LABS: Anisocytosis Slight; Basophils % (A) 0 %; Eosinophils # (A) 0.1 k/uL (0-0.7); Eosinophils % (A) 2 %; HCT 33.9 % (39.0-53.0); HGB 9.9 gm/dL (13.0-17.5); Hypochromasia Marked; Lymphocytes # (A) 0.3 k/uL (1.0-4.8); Lymphocytes % (A) 9 %; MCH 24.7 pg (25.0-35.0); MCHC 29.2 g/dL (31.0-37.0); MCV 84.7 fL (80.0-100.0); Mean Platelet Volume 7.6; Microcytosis Slight; Monocytes # (A) 0.3 k/uL (0-1.0); Monocytes % (A) 8 %; Neutrophils # (A) 2.5 k/uL (1.3-7.7); Neutrophils % (A) 77 %; Platelet Count 231 k/uL (150-450); RDW 19.1 % (11.5-15.5); WBC 3.2 k/uL (3.8-10.6)
[2019-02-26 09:46] LABS: Calcium 8.4 mg/dL (8.4-10.2); Potassium 4.5 mmol/L (3.5-5.1)
--- NOTE | 2019-02-26 10:56 | P.PN ---
Progress Note - Text Progress Note Date: 02/26/19 I was called by the nurses this morning. Patient had a large emesis which was bile stained. They attempted to place a nasogastric tube however this ended up with the patient's bronchus. On exam his vital signs are stable. His abdomen is soft. He is mildly distended. He has some nausea. Patient will have his nasogastric tube placed. He'll undergo repeat CAT scan after this is performed.
--- NOTE | 2019-02-26 11:32 | XR ---
EXAMINATION TYPE: XR abdomen 1V DATE OF EXAM: 02/26/2019 COMPARISON: NONE HISTORY: NG tube placement TECHNIQUE: One view abdominal series FINDINGS: Deformities of the right rib cage are noted. Heart is prominent. The bowel gas pattern is nonspecific . Postsurgical changes are seen and the NG tube overlies the gastric body. Subsegmental changes at padmini th lung bases. Coronary portion of the upper abdomen is included. IMPRESSION: 1. NG tube overlies the region of the gastric body.
[2019-02-26 11:35] LABS: Glucose,Whole Blood 203 mg/dL (75-99)
[2019-02-26] MEDS: MORPHINE SULFATE 4 MG/ML SYRINGE IV PRN (12:46)
--- NOTE | 2019-02-26 13:06 | CT ---
EXAMINATION TYPE: CT abdomen pelvis w con DATE OF EXAM: 02/26/2019 COMPARISON: CT abdomen and pelvis from 3 days ago HISTORY: Increased abdominal pain and emesis. CT DLP: 1501.9 mGycm, Automated Exposure Control for Dose Reduction was Utilized. CONTRAST: CT scan of the abdomen and pelvis is performed without oral but with with IV Contrast, patient inject ed with 100ml mL of Isovue 300. FINDINGS: LUNG BASES: There is worsening posterior left basilar consolidation and/or atelectasis and axial imag e 7. There is new anterior linear atelectasis axial image 8. There is patchy right basilar dependent atelectasis felt stable. Overlying sternal wires are redemonstrated. Calcifications near level of edison ral valve are again seen. LIVER/GB: Cholecystectomy clips are redemonstrated. PANCREAS: Stable mild generalized fat replaced atrophy. SPLEEN: No significant abnormality is seen. ADRENALS: No significant abnormality is seen. KIDNEYS: No excretion on delayed images without hydronephrosis. Normal excretion seen on study perfo rmed 3 days earlier. BOWEL: Interval placement of nasogastric tube. Persistent mild distended stomach with air-fluid level slightly improved after nasogastric tube placement. Persistent fluid-filled prominence of duodenal s weep is more prominent from prior study. Persistent prominent and dilated small bowel loops throughou t the abdomen with air-fluid levels measuring up to 3.5 cm in diameter without improvement from prior study. Fecal material is seen in nondistended colon. Normal-appearing appendix in the right mid to lower abd omen is present. Terminal ileum shows no suspicious dilatation coronal image 49. Surgical sutures are present in right pelvic bowel loop coronal image 44 which appears inferior to th e cecum. Small bowel feces sign seen in prominent bowel small bowel loops in the right lower quadrant . Transition point felt their site of anastomosis in the right upper pelvis with only small portion o f terminal ileum showing nondilatation. PROSTATE/SEMINAL VESICLES: No gross abnormality seen. LYMPH NODES: No greater than 1cm abdominal or pelvic lymph nodes are appreciated. OSSEOUS STRUCTURES: Metallic hardware from right hip arthroplasty causes streak artifact limiting perla luation of pelvic structures. OTHER: Moderate calcified plaque of aorta extends into branch vessels. IMPRESSION: Persistent distal small bowel obstruction not improved from prior felt to be at site of s urgical anastomosis right pelvis.
--- NOTE | 2019-02-26 13:38 | CDI ---
Documentation Clarification Form Date: 02/26/2019 1:30:06 PM From: Samaria Ribera RN, CCDS Admit Date: 02/23/2019 7:24:00 PM Patient Name: Benja Ribera Visit Number: [id number] ATTENTION: The Clinical Documentation Specialists (CDI) and [facility] Coding Staff appreciate your assistance in clarifying documentation. Please respond to the clarification below the line at the bottom and electronically sign. The CDI & [facility] Coding staff will review the response and follow-up if needed. Please note: Queries are made part of the Legal Health Record. If you have any questions, please contact the author of this message via ITS. Dr. Manuel Jacobo History/Risk Factors: 02/12/19 Patients baseline BUN/CR/GFR: 38/.984/>90 Clinical Indicators: patient is admitted with SBO, remains NPO, with NGT in place Current BUN: 35/41/42 Cr: 1.02/1.77/1.1 GFR: 80/41/73 Treatment: IVF bolus 500 cc followed by 75 cc/hr In order to capture the severity of condition, please clarify if the condition signifies: Acute renal failure, Please specify etiology (if known): Cortical Necrosis Medullary Necrosis Tubular Necrosis Acute kidney injury Acute on chronic renal failure CKD Stage 1 GFR >90 CKD Stage 2 GFR 60-89 CKD Stage 3 GFR 30-59 CKD Stage 4 GFR 15-29 CKD Stage 5 GFR <15 Chronic renal failure/Chronic Kidney disease (CKD) please stage (if known): CKD Stage 1 GFR >90 CKD Stage 2 GFR 60-89 CKD Stage 3 GFR 30-59 CKD Stage 4 GFR 15-29 CKD Stage 5 GFR <15 refer to progress note MTDD
[2019-02-26 16:48] LABS: Glucose,Whole Blood 155 mg/dL (75-99)
--- NOTE | 2019-02-26 18:48 | P.PN ---
Subjective Progress Note Date: 02/26/19 Principal diagnosis: Patient is a 58-year-old male with a past medical history of diabetes mellitus type 2 insulin requiring, hypertension, dyslipidemia, systolic congest julio heart failure with last ejection fraction 45-50%, and adrenal insufficiency requiring twice daily Cortef who presented to the ER with complaints of abdominal pain. On arrival to the ER his vital signs within normal limits. White blood cell count was slightly elevated at 12.9. Laboratory analysis is otherwise unremarkable. Urinalysis negative. CT abdomen and pelvis showed partial small bowel obstruction with concern for adhesions. He was started on IV fluids, made nothing by mouth, and had an nasogastric tube placed. He was admitted for further monitoring. We're asked to consult regarding his adrenal insufficiency and diabetic management. He was recently hospitalized here from 02/09 through 02/12 group B strep bacteremia related to infection of the skin. He is due to complete his Rocephin therapy after his dose on 01/26. The patient seen and examined at bedside. NG tube to suction, apparently NG tube was discontinued yesterday and this morning the patient began having intra ctable nausea and vomiting again. NG tube was reapplied with approximately 600 mL of biliary fluid out with now total output of approximately 900 mL. Patient's present, somnolent but arousable pretty fatigued today. temp 99.7, blood sugars [id number] -258, vital signs stable Objective - Vital Signs Vital signs: Vital Signs Temp 99.7 F H 02/26/19 13:57 Pulse 78 02/26/19 15:54 Resp 16 02/26/19 13:57 BP 120/74 02/26/19 13:57 Pulse Ox 95 02/26/19 13:57 Intake & Output 02/25/19 02/26/19 02/26/19 18:59 06:59 18:59 Intake Total 600 750 Output Total 300 600 Balance 300 150 Intake: IV 600 750 Sodium Chloride 0.9% 1, 600 750 000 ml @ 75 mls/hr IV . [id number] [facility] Rx#:[id number] Output: Urine 300 600 Other: Voiding Method Urinal Urinal Urinal # Voids 1 0 1 # Emeses 3 - Exam Constitutional: No acute distress, conversant, pleasant Eyes: Anicteric sclerae, moist conjunctiva, no lid-lag, PERRLA ENMT: NC/AT,Oropharynx clear, no erythema, exudates, NG tube in place Neck:Supple, FROM, no masses, or JVD, No carotid bruits; No thyromegaly Lungs: Diminished bilaterally Clear to auscultation, Clear to percussion, Normal respiratory effort, no accessory muscle use Cardiovascular: Heart regular in rate and rhythm, No murmurs, gallops, or rubs no peripheral edema Abdominal: Soft tender to palpation in the mid abdomen, slightly distended, no guarding, no rebound or rigidity, hypoactive bowel sounds Skin: Normal temperature, tone, texture, turgor, No induration No subcutaneous nodules, No rash, lesions, No ulcers Extremities:No digital cyanosis No clubbing, Pedal pulses intact and symmetrical Radial pulses intact and symmetrical Normal gait and station, No calf tenderness Psychiatric: Alert and oriented to person, place and time, Appropriate affect Intact judgement Neuro: Muscles Strength 5/5 in all 4 extremities, Sensation to light touch grossly present throughout, Cranial nerves II-XII grossly intact. No focal sensory deficits - Labs CBC & Chem 7: 02/26/19 08:47 02/26/19 08:47 Labs: Abnormal Lab Results - Last 24 Hours (Table) 02/25/19 02/25/19 02/26/19 Range/Units 20:09 21:44 07:04 WBC (3.8-10.6) k/uL RBC (4.30-5.90) m/uL Hgb (13.0-17.5) gm/dL Hct (39.0-53.0) % MCH (25.0-35.0) pg MCHC (31.0-37.0) g/dL RDW (11.5-15.5) % Lymphocytes # (1.0-4.8) k/uL Carbon Dioxide (22-30) mmol/L BUN (9-20) mg/dL Glucose (74-99) mg/dL POC Glucose (mg/dL) 186 H 154 H 258 H (75-99) mg/dL 02/26/19 02/26/19 02/26/19 Range/Units 08:47 08:47 11:24 WBC 3.2 L (3.8-10.6) k/uL RBC 4.00 L (4.30-5.90) m/uL Hgb 9.9 L (13.0-17.5) gm/dL Hct 33.9 L (39.0-53.0) % MCH 24.7 L (25.0-35.0) pg MCHC 29.2 L (31.0-37.0) g/dL RDW 19.1 H (11.5-15.5) % Lymphocytes # 0.3 L (1.0-4.8) k/uL Carbon Dioxide 32 H (22-30) mmol/L BUN 42 H (9-20) mg/dL Glucose 249 H (74-99) mg/dL POC Glucose (mg/dL) 203 H (75-99) mg/dL 02/26/19 Range/Units 16:47 WBC (3.8-10.6) k/uL RBC (4.30-5.90) m/uL Hgb (13.0-17.5) gm/dL Hct (39.0-53.0) % MCH (25.0-35.0) pg MCHC (31.0-37.0) g/dL RDW (11.5-15.5) % Lymphocytes # (1.0-4.8) k/uL Carbon Dioxide (22-30) mmol/L BUN (9-20) mg/dL Glucose (74-99) mg/dL POC Glucose (mg/dL) 155 H (75-99) mg/dL Microbiology - Last 24 Hours (Table) 02/24/19 22:40 Blood Culture - Preliminary Blood No Growth after 24 hours Assessment and Plan Plan: Small bowel obstruction - management per surgery - NPO with NGT in place - pain control - antiemetics Recent group B strep bacteremia -Continue 2 g every 24 hours DM 2 - Insulin requiring - sliding scale, add low dose levemir 10 u qhs as takes 60 of lantus at home - follow BS closely -By mouth cortisone on hold Acute kidney injury - Prerenal due to dehydration now resolved -Creatinine down from 1.7-1.1 Adrenal insufficiency - NPO will hold oral cortef - Missed 2 doses - continue IV coftef until tolerating oral, considering may have delay absorption until SBO clears Obstructive sleep apnea -BiPAP once NG tube is out -Keep head of bed greater than 45 and sleeping COPD without exacerbation-chronic hypoxic respiratory failure with baseline 2 L nasal cannula -DuoNeb's 4 times daily -Pulmonary hygiene -Continue oxygen therapy HTN, controlled - continue home medications - follow blood pressures HLD - resume statin Compensated systolic congestive heart failure -Lasix on hold -Limit IV fluids -Compensated -Lisinopril, metoprolol -Strict I's Atrial fibrillation rate controlled - Continue current medications - Monitor blood pressures - eplquis on hold per surgery recs - resume when appropriate per surgery Chronic: Hypothyroidism Coronary artery disease Neuropathy Chronic anemia History of pancreatic neuroendocrine tumor DVT: Heparin
[2019-02-26 20:47] LABS: Glucose,Whole Blood 139 mg/dL (75-99)
[2019-02-26] MEDS: amLODIPine 5 MG TAB PO SCH (22:00)
[2019-02-26] MEDS: LEVOTHYROXINE 50 MCG TAB PO SCH (22:00)
[2019-02-26] MEDS: MONTELUKAST 10 MG TAB PO SCH (22:00)
[2019-02-26] MEDS: INSULIN DETEMIR (LEVEMIR) 100 UNIT/ML SYR SQ SCH (22:10)
[2019-02-27 03:19] LABS: Glucose,Whole Blood 161 mg/dL (75-99)
[2019-02-27 07:13] LABS: Glucose,Whole Blood 124 mg/dL (75-99)
[2019-02-27] MEDS: MORPHINE SULFATE 4 MG/ML SYRINGE IV PRN (07:40)
[2019-02-27] MEDS: IPRATROPIUM-ALBUTEROL 3 ML NEB INHALATION SCH ×4 (08:08→20:40)
[2019-02-27] MEDS: INSULIN ASPART (NovoLOG) 100 UNIT/ML VIAL SQ SCH ×4 (08:46→20:38)
[2019-02-27] MEDS: HEPARIN SODIUM,PORCINE 5,000 UNIT/ML 1 ML VIAL SQ SCH ×2 (08:47→19:46)
[2019-02-27] MEDS: METOPROLOL TARTRATE 25 MG TAB PO SCH ×2 (08:48→20:51)
[2019-02-27] MEDS: PANTOPRAZOLE 40 MG/10 ML VIAL IVP SCH (08:49)
[2019-02-27 08:56] LABS: African American GFR (CKD) >90 (>60 ml/min/1.73 sqM); Anion Gap 7 mmol/L; Blood Urea Nitrogen 45 mg/dL (9-20); Calcium 8.5 mg/dL (8.4-10.2); Carbon Dioxide 32 mmol/L (22-30); Chloride 103 mmol/L (98-107); Glucose 118 mg/dL (74-99); Potassium 4.4 mmol/L (3.5-5.1); Sodium 142 mmol/L (137-145)
[2019-02-27 08:59] LABS: Anisocytosis Slight; HCT 30.1 % (39.0-53.0); HGB 8.5 gm/dL (13.0-17.5); Hypochromasia Marked; MCH 23.9 pg (25.0-35.0); MCHC 28.3 g/dL (31.0-37.0); MCV 84.6 fL (80.0-100.0); Mean Platelet Volume 7.7; Microcytosis Slight; Platelet Count 231 k/uL (150-450); RBC 3.56 m/uL (4.30-5.90); RDW 19.6 % (11.5-15.5); WBC 3.2 k/uL (3.8-10.6)
[2019-02-27] MEDS: ARTIFICIAL TEARS-HYPROMELLOSE DROPS 15 ML BTL BOTH EYES SCH ×4 (09:00→21:17)
--- NOTE | 2019-02-27 09:05 | P.PN ---
Progress Note - Text Progress Note Date: 02/27/19 The patient is resting in his bed. He still has some abdominal distention. His NG tube had 800 mL of bilious output the last shift. On exam his vital signs are stable. His abdomen soft. There is some distention. Elevated discussion with the patient and his Corinna. He appears to have a small bowel obstruction related to his previous surgery this could be adhesions or a small bowel anastomosis. The patient will undergo exposure laparotomy lysis of adhesions today. Risk of wound infection were discussed with the patient.
[2019-02-27] MEDS: GABAPENTIN 400 MG CAP PO SCH ×4 (09:06→20:52)
[2019-02-27] MEDS: LISINOPRIL 5 MG TAB PO SCH (09:06)
[2019-02-27] MEDS: FLUCONAZOLE 100 MG TAB PO SCH (09:06)
[2019-02-27] MEDS: DULoxetine HCL 30 MG CAPSULE.DR PO SCH ×2 (09:06→20:51)
[2019-02-27] MEDS: valACYclovir HCL 1,000 MG TABLET PO SCH ×2 (09:07→20:51)
[2019-02-27] MEDS: LORATADINE 10 MG TAB PO SCH (09:07)
[2019-02-27] MEDS: HYDROCORTISONE SUCCINATE 100 MG/2 ML VIAL IV SCH ×2 (09:07→21:20)
[2019-02-27] MEDS ORDERED: IV FLUID CONTINUATION 1,000 ML IV ONE (09:55)
[2019-02-27] MEDS ORDERED: ONDANSETRON 4 MG/2 ML VIAL IVP ONE (10:15)
[2019-02-27] MEDS ORDERED: DEXAMETHASONE SOD PHOS (MDV) 100 MG/10 ML VIAL IVP ONE (10:15)
[2019-02-27 10:18] LABS: Glucose,Whole Blood 126 mg/dL (75-99)
[2019-02-27 10:27] LABS: Band Neutrophils % 14 %; Eosinophils # (M) 0.13 k/uL (0-0.7); Lymphocytes # (M) 0.58 k/uL (1.0-4.8); Monocytes # (M) 0.42 k/uL (0-1.0); Neutrophils % (M) 53 %; Nucleated Red Blood Cells 0 /100 WBC (0-0); Total Cells Counted 200; Toxic Vacuolation Present
[2019-02-27 10:28] LABS: Poikilocytosis (M) Present; Polychromasia Present
[2019-02-27 10:30] LABS: Target Cells Present
[2019-02-27] MEDS ORDERED: HYDROCORTISONE SUCCINATE 100 MG/2 ML VIAL IVP ONE (10:33)
[2019-02-27] MEDS ORDERED: MIDAZOLAM (PF) 2 MG/2 ML VIAL IVP ONE (10:38)
[2019-02-27] MEDS ORDERED: PROPOFOL 10 MG/ML 20 ML VIAL IV ONE (10:57)
[2019-02-27] MEDS ORDERED: SUCCINYLCHOLINE CHLORIDE 100 MG/5 ML SYR IV ONE (10:57)
[2019-02-27] MEDS ORDERED: ROCURONIUM BROMIDE 10 MG/ML 10 ML VIAL IV ONE (10:57)
[2019-02-27] MEDS ORDERED: fentaNYL (PF) 50 MCG/ML 2 ML AMP ONE (10:57)
[2019-02-27] MEDS ORDERED: NEOSTIGMINE 1 MG/ML 10 ML VIAL ONE (10:57)
[2019-02-27] MEDS ORDERED: GLYCOPYRROLATE 0.2 MG/ML 2 ML VIAL ONE (10:57)
[2019-02-27] MEDS ORDERED: PHENYLEPHRINE-0.9% NACL SYG 1 MG/10 ML SYRINGE ONE (10:57)
[2019-02-27] MEDS ORDERED: LIDOCAINE 1% INJ 10MG/ML (20 ML MDV) ONE (10:57)
[2019-02-27] MEDS ORDERED: SODIUM CHLORIDE 0.9% 50 ML with ceFAZolin 2,000 MG IV ONE ×2 (11:28)
--- NOTE | 2019-02-27 11:32 | P.PN ---
Subjective Progress Note Date: 02/27/19 Principal diagnosis: Patient is a 58-year-old male with a past medical history of diabetes mellitus type 2 insulin requiring, hypertension, dyslipidemia, systolic congest julio heart failure with last ejection fraction 45-50%, and adrenal insufficiency requiring twice daily Cortef who presented to the ER with complaints of abdominal pain. On arrival to the ER his vital signs within normal limits. White blood cell count was slightly elevated at 12.9. Laboratory analysis is otherwise unremarkable. Urinalysis negative. CT abdomen and pelvis showed partial small bowel obstruction with concern for adhesions. He was started on IV fluids, made nothing by mouth, and had an nasogastric tube placed. He was admitted for further monitoring. We're asked to consult regarding his adrenal insufficiency and diabetic management. He was recently hospitalized here from 02/09 through 02/12 group B strep bacteremia related to infection of the skin. He is due to complete his Rocephin therapy after his dose on 01/26. The patient seen and examined at bedside. NG tube to suction, had approximately 800 mL overnight, abdomen continues to be distended, Repeat CT of the abdomen continues to show persistent distal small bowel obstruction Objective - Vital Signs Vital signs: Vital Signs Temp 97.8 F 02/27/19 09:59 Pulse 71 02/27/19 09:59 Resp 18 02/27/19 09:59 BP 132/61 02/27/19 09:59 Pulse Ox 97 02/27/19 09:59 Intake & Output 02/26/19 02/27/19 02/27/19 18:59 06:59 18:59 Intake Total 200 Output Total 800 Balance -800 200 Intake: IV 200 Output: Gastric Drainage 800 Other: Voiding Method Urinal Urinal Urinal Diaper Diaper # Voids 1 1 - Exam Constitutional: No acute distress, conversant, pleasant Eyes: Anicteric sclerae, moist conjunctiva, no lid-lag, PERRLA ENMT: NC/AT,Oropharynx clear, no erythema, exudates, NG tube in place Neck:Supple, FROM, no masses, or JVD, No carotid bruits; No thyromegaly Lungs: Diminished bilaterally Clear to auscultation, Clear to percussion, Normal respiratory effort, no accessory muscle use Cardiovascular: Heart regular in rate and rhythm, No murmurs, gallops, or rubs no peripheral edema Abdominal: Soft tender to palpation in the mid abdomen, moderately distended, no guarding, no rebound or rigidity, hypoactive bowel sounds Skin: Normal temperature, tone, texture, turgor, No induration No subcutaneous nodules, No rash, lesions, No ulcers Extremities:No digital cyanosis No clubbing, Pedal pulses intact and symmetrical Radial pulses intact and symmetrical Normal gait and station, No calf tenderness Psychiatric: Alert and oriented to person, place and time, Appropriate affect Intact judgement Neuro: Muscles Strength 5/5 in all 4 extremities, Sensation to light touch grossly present throughout, Cranial nerves II-XII grossly intact. No focal sensory deficits - Labs CBC & Chem 7: 02/27/19 08:05 02/27/19 08:05 Labs: Abnormal Lab Results - Last 24 Hours (Table) 02/26/19 02/26/19 02/26/19 Range/Units 11:24 16:47 20:36 WBC (3.8-10.6) k/uL RBC (4.30-5.90) m/uL Hgb (13.0-17.5) gm/dL Hct (39.0-53.0) % MCH (25.0-35.0) pg MCHC (31.0-37.0) g/dL RDW (11.5-15.5) % Lymphocytes # (Manual) (1.0-4.8) k/uL Carbon Dioxide (22-30) mmol/L BUN (9-20) mg/dL Glucose (74-99) mg/dL POC Glucose (mg/dL) 203 H 155 H 139 H (75-99) mg/dL 02/27/19 02/27/19 02/27/19 Range/Units 03:18 07:11 08:05 WBC 3.2 L (3.8-10.6) k/uL RBC 3.56 L (4.30-5.90) m/uL Hgb 8.5 L (13.0-17.5) gm/dL Hct 30.1 L (39.0-53.0) % MCH 23.9 L (25.0-35.0) pg MCHC 28.3 L (31.0-37.0) g/dL RDW 19.6 H (11.5-15.5) % Lymphocytes # (Manual) 0.58 L (1.0-4.8) k/uL Carbon Dioxide (22-30) mmol/L BUN (9-20) mg/dL Glucose (74-99) mg/dL POC Glucose (mg/dL) 161 H 124 H (75-99) mg/dL 02/27/19 02/27/19 Range/Units 08:05 10:12 WBC (3.8-10.6) k/uL RBC (4.30-5.90) m/uL Hgb (13.0-17.5) gm/dL Hct (39.0-53.0) % MCH (25.0-35.0) pg MCHC (31.0-37.0) g/dL RDW (11.5-15.5) % Lymphocytes # (Manual) (1.0-4.8) k/uL Carbon Dioxide 32 H (22-30) mmol/L BUN 45 H (9-20) mg/dL Glucose 118 H (74-99) mg/dL POC Glucose (mg/dL) 126 H (75-99) mg/dL Microbiology - Last 24 Hours (Table) 02/24/19 22:40 Blood Culture - Preliminary Blood No Growth after 48 hours Assessment and Plan Plan: Small bowel obstruction - management per Dr. Nichols plan to take the patient to the OR today for surgery - NPO with NGT in place - pain control - antiemetics Recent group B strep bacteremia -Continue 2 g every 24 hours DM 2 - Insulin requiring - sliding scale, add low dose levemir 10 u qhs as takes 60 of lantus at home - follow BS closely -By mouth cortisone on hold Acute kidney injury - Prerenal due to dehydration now resolved -Creatinine down from 1.7-1.1 Adrenal insufficiency - NPO will hold oral cortef - Missed 2 doses - continue IV coftef until tolerating oral, considering may have delay absorption until SBO clears Obstructive sleep apnea -BiPAP once NG tube is out -Keep head of bed greater than 45 and sleeping COPD without exacerbation-chronic hypoxic respiratory failure with baseline 2 L nasal cannula -DuoNeb's 4 times daily -Pulmonary hygiene -Continue oxygen therapy HTN, controlled - continue home medications - follow blood pressures HLD - resume statin Compensated systolic congestive heart failure -Lasix on hold -Limit IV fluids -Compensated -Lisinopril, metoprolol -Strict I's Atrial fibrillation rate controlled - Continue current medications - Monitor blood pressures - eplquis on hold per surgery recs - resume when appropriate per surgery Chronic: Hypothyroidism Coronary artery disease Neuropathy Chronic anemia History of pancreatic neuroendocrine tumor DVT: Heparin
[2019-02-27] MEDS ORDERED: LACTATED RINGERS 1,000 ML IV ONE ×2 (11:40→12:52)
[2019-02-27] MEDS ORDERED: SODIUM CHLORIDE 0.9% 1,000 ML IV ONE (12:51)
[2019-02-27] MEDS ORDERED: SODIUM CHLORIDE 0.9% 500 ML 500 ML IV ONE (12:51)
[2019-02-27] MEDS ORDERED: HYDROcodone/APAP 5-325MG 1 EACH TAB PO PRN (12:52)
[2019-02-27] MEDS ORDERED: NALOXONE 0.4 MG/ML 1 ML VIAL IV PRN ×2 (12:52→14:01)
[2019-02-27] MEDS ORDERED: HYDROmorphone 0.5 MG/0.5 ML SYRINGE IVP PRN (12:52)
[2019-02-27] MEDS ORDERED: METOCLOPRAMIDE 5 MG/ML 2 ML VIAL IVP PRN (12:52)
--- NOTE | 2019-02-27 13:00 | P.OP ---
Date of Procedure: 02/27/19 Preoperative Diagnosis: Small bowel obstruction Postoperative Diagnosis: Small bowel obstruction Anastomotic stricture Severe constipation Procedure(s) Performed: Exploratory laparotomy Repair of incisional hernia Partial omentectomy Lysis of adhesions Right colectomy Small bowel resection Anesthesia: REX Surgeon: Dashawn Nichols Estimated Blood Loss (ml): 250 Pathology: other (Omentum, terminal ileum, right colon) Condition: stable Disposition: PACU Description of Procedure: The patient's placed on the operative table in the supine position. He received general anesthesia. His abdomen was prepped and draped usual sterile fashion. The abdomen was entered through an upper midline incision. Patient a previous scar there There was an incisional hernia encountered. The fascia was then opened. And then there were dense adhesions against the fascia. Using methyl scissors and sharp dissection the adhesions were lysed proximally 20 minutes of operative time used to lyse adhesions. The small bowel was grossly dilated. There appeared to be a fecal impaction of the distal small bowel. There was an anastomosis of the small bowel seen within 5 cm of the terminal ileum. This appeared to be causing the small bowel obstruction. The cecum was grossly dilated with hard stool. The small bowel and the terminal ileum appeared to be slightly ischemic. At this point a suitable spot of the rock small terminal ileum was transected with a GI stapler and then using the GI stapler the small bowel distal to the anastomosis was transected. Using the Enseal device the mesentery was divided and the specimen sent to pathology. There was only a 3 cm stump terminal ileum left adjacent to the cecum. There appeared to be not enough length to do a [id number] small bowel anastomosis in this location. The cecum was full of hard stool. At this point the right colon was mobilized. Immobilization the right colon there was some serosal tears of the cecum and right colon. The right colon appeared to be slightly ischemic. The hepatic flexure was then divided with left cautery and then the proximal transverse colon was divided using the GI stapler. A [id number] functional end-to-end staple anastomosis created using the NEAL and TA staplers. A 3-0 GI silk sutures using a crotch stitch. The abdomen was then irrigated there is no bleeding seen. The omentum was examined. A portion of omentum appeared to be nonviable and this was transected with the Enseal and sent to pathology. The abdomen was irrigated again. There is no bleeding seen. The fascia was closed with looped #1 PDS suture. The incisional hernias repaired during fascial closure. The skin was closed loosely with sol. Several jarvis of Telfa were placed in position to drain any wound issue. Sterile dressings applied. Patient top she will was sent to recovery in stable condition.
[2019-02-27] MEDS: SODIUM CHLORIDE 0.9% 1,000 ML IV SCH ×3 (13:11→15:35)
[2019-02-27 13:18] LABS: Glucose,Whole Blood 125 mg/dL (75-99)
[2019-02-27] MEDS ORDERED: ROPIVACAINE 250 MG, HYDROMORPHONE (PF) 5 MG in SODIUM CHLORIDE 0.9% 200 ML EPIDURAL PRN (14:01)
[2019-02-27 17:35] LABS: Glucose,Whole Blood 235 mg/dL (75-99)
[2019-02-27 19:53] LABS: Glucose,Whole Blood 193 mg/dL (75-99)
[2019-02-27] MEDS: INSULIN DETEMIR (LEVEMIR) 100 UNIT/ML SYR SQ SCH (20:37)
[2019-02-27] MEDS: amLODIPine 5 MG TAB PO SCH (20:50)
[2019-02-27] MEDS: DOCUSATE 100 MG CAP PO SCH (20:50)
[2019-02-27] MEDS: MONTELUKAST 10 MG TAB PO SCH (20:51)
[2019-02-27] MEDS: LEVOTHYROXINE 50 MCG TAB PO SCH (20:51)
[2019-02-28] MEDS: HEPARIN SODIUM,PORCINE 5,000 UNIT/ML 1 ML VIAL SQ SCH ×3 (00:02→17:23)
[2019-02-28 07:25] LABS: Glucose,Whole Blood 212 mg/dL (75-99)
[2019-02-28] MEDS: INSULIN ASPART (NovoLOG) 100 UNIT/ML VIAL SQ SCH ×4 (07:55→21:53)
[2019-02-28 08:42] LABS: ALT 70 U/L (21-72); AST 30 U/L (17-59); African American GFR (CKD) >90 (>60 ml/min/1.73 sqM); Albumin 2.5 g/dL (3.5-5.0); Alkaline Phosphatase 109 U/L (38-126); Anion Gap 5 mmol/L; Blood Urea Nitrogen 48 mg/dL (9-20); Calcium 7.9 mg/dL (8.4-10.2); Carbon Dioxide 28 mmol/L (22-30); Chloride 112 mmol/L (98-107); Glucose 202 mg/dL (74-99); Potassium 4.9 mmol/L (3.5-5.1); Sodium 145 mmol/L (137-145); Total Bilirubin 0.4 mg/dL (0.2-1.3); Total Protein 5.4 g/dL (6.3-8.2)
[2019-02-28 08:49] LABS: Anisocytosis Moderate; Basophils % (A) 1 %; Eosinophils % (A) 0 %; HCT 22.8 % (39.0-53.0); Hypochromasia Marked; Lymphocytes # (A) 0.6 k/uL (1.0-4.8); Lymphocytes % (A) 9 %; MCH 24.6 pg (25.0-35.0); MCHC 29.3 g/dL (31.0-37.0); MCV 83.8 fL (80.0-100.0); Mean Platelet Volume 8.4; Microcytosis Slight; Monocytes # (A) 0.5 k/uL (0-1.0); Monocytes % (A) 8 %; Neutrophils # (A) 4.9 k/uL (1.3-7.7); Neutrophils % (A) 80 %; Platelet Count 265 k/uL (150-450); RBC 2.73 m/uL (4.30-5.90); WBC 6.1 k/uL (3.8-10.6)
[2019-02-28 08:53] LABS: HGB 6.7 gm/dL (13.0-17.5)
[2019-02-28] MEDS: IPRATROPIUM-ALBUTEROL 3 ML NEB INHALATION SCH ×4 (08:57→19:25)
--- NOTE | 2019-02-28 10:10 | P.PN ---
Subjective Progress Note Date: 02/28/19 Principal diagnosis: Bowel obstruction Patient complaining of pain today. Apparently his epidural became misplaced. It has since been removed. He has received Dilaudid on one occasion now. Labs noted. Hemoglobin 6.7. Vitals of been relatively stable. Objective - Vital Signs Vital signs: Vital Signs Temp 98.5 F 02/28/19 07:00 Pulse 80 02/28/19 09:14 Resp 18 02/28/19 07:00 BP 109/71 02/28/19 07:00 Pulse Ox 100 02/28/19 07:00 Intake & Output 02/27/19 02/28/19 02/28/19 18:59 06:59 18:59 Intake Total 1950 Output Total 1355 650 Balance 595 -650 Weight 94.1 kg Intake: IV 1950 Output: Gastric Drainage 500 Urine 605 650 Estimated Blood Loss 250 Other: Voiding Method Indwelling Catheter Indwelling Catheter - Exam Abdomen: Soft, mild distention, mild tenderness, dressing clean and dry - Labs CBC & Chem 7: 02/28/19 08:20 02/28/19 08:20 Labs: Abnormal Lab Results - Last 24 Hours (Table) 02/27/19 02/27/19 02/27/19 Range/Units 08:05 10:12 13:14 RBC (4.30-5.90) m/uL Hgb (13.0-17.5) gm/dL Hct (39.0-53.0) % MCH (25.0-35.0) pg MCHC (31.0-37.0) g/dL RDW (11.5-15.5) % Lymphocytes # (1.0-4.8) k/uL Lymphocytes # (Manual) 0.58 L (1.0-4.8) k/uL Chloride (98-107) mmol/L BUN (9-20) mg/dL Glucose (74-99) mg/dL POC Glucose (mg/dL) 126 H 125 H (75-99) mg/dL Calcium (8.4-10.2) mg/dL Total Protein (6.3-8.2) g/dL Albumin (3.5-5.0) g/dL 02/27/19 02/27/19 02/28/19 Range/Units 17:33 19:51 07:13 RBC (4.30-5.90) m/uL Hgb (13.0-17.5) gm/dL Hct (39.0-53.0) % MCH (25.0-35.0) pg MCHC (31.0-37.0) g/dL RDW (11.5-15.5) % Lymphocytes # (1.0-4.8) k/uL Lymphocytes # (Manual) (1.0-4.8) k/uL Chloride (98-107) mmol/L BUN (9-20) mg/dL Glucose (74-99) mg/dL POC Glucose (mg/dL) 235 H 193 H 212 H (75-99) mg/dL Calcium (8.4-10.2) mg/dL Total Protein (6.3-8.2) g/dL Albumin (3.5-5.0) g/dL 02/28/19 02/28/19 Range/Units 08:20 08:20 RBC 2.73 L (4.30-5.90) m/uL Hgb 6.7 L* D (13.0-17.5) gm/dL Hct 22.8 L (39.0-53.0) % MCH 24.6 L (25.0-35.0) pg MCHC 29.3 L (31.0-37.0) g/dL RDW 20.0 H (11.5-15.5) % Lymphocytes # 0.6 L (1.0-4.8) k/uL Lymphocytes # (Manual) (1.0-4.8) k/uL Chloride 112 H (98-107) mmol/L BUN 48 H (9-20) mg/dL Glucose 202 H (74-99) mg/dL POC Glucose (mg/dL) (75-99) mg/dL Calcium 7.9 L (8.4-10.2) mg/dL Total Protein 5.4 L (6.3-8.2) g/dL Albumin 2.5 L (3.5-5.0) g/dL Microbiology - Last 24 Hours (Table) 02/24/19 22:40 Blood Culture - Preliminary Blood No Growth after 72 hours Assessment and Plan (1) Small bowel obstruction Narrative/Plan: Patient with acute blood loss anemia post colectomy. Will transfuse one unit. Add IV Tylenol, Toradol for pain control. Check coags. We'll consult infectious disease per the patient's request given a history of recurrent MRSA. Current Visit: Yes Status: Acute Code(s): K56.609 - UNSP INTESTNL OBST, UNSP TO PARTIAL VERSUS COMPLETE OBST SNOMED Code(s): 292428436
[2019-02-28 10:21] LABS: Polychromasia Present
[2019-02-28] MEDS: MORPHINE SULFATE 4 MG/ML SYRINGE IV PRN ×4 (10:26→22:05)
[2019-02-28] MEDS: DOCUSATE 100 MG CAP PO SCH ×2 (10:34→19:25)
[2019-02-28] MEDS: DULoxetine HCL 30 MG CAPSULE.DR PO SCH ×2 (10:34→19:26)
[2019-02-28] MEDS: valACYclovir HCL 1,000 MG TABLET PO SCH ×2 (10:34→19:36)
[2019-02-28] MEDS: SODIUM CHLORIDE 0.9% 1,000 ML IV SCH ×2 (10:34→22:09)
[2019-02-28] MEDS: LISINOPRIL 5 MG TAB PO SCH (10:35)
[2019-02-28] MEDS: ENOXAPARIN 40 MG/0.4 ML SYRINGE SQ SCH (10:35)
[2019-02-28] MEDS: FLUCONAZOLE 100 MG TAB PO SCH (10:35)
[2019-02-28] MEDS: GABAPENTIN 400 MG CAP PO SCH ×4 (10:35→19:36)
[2019-02-28 10:47] LABS: INR 0.9 (<1.2); Partial Thromboplastin Time 26.1 sec (22.0-30.0); Prothrombin Time 9.7 sec (9.0-12.0)
[2019-02-28] MEDS: ARTIFICIAL TEARS-HYPROMELLOSE DROPS 15 ML BTL BOTH EYES SCH ×4 (11:08→22:02)
[2019-02-28] MEDS: HYDROCORTISONE SUCCINATE 100 MG/2 ML VIAL IV SCH ×2 (11:08→22:05)
[2019-02-28] MEDS: METOPROLOL TARTRATE 25 MG TAB PO SCH ×2 (11:09→22:01)
[2019-02-28] MEDS: LORATADINE 10 MG TAB PO SCH (11:09)
[2019-02-28] MEDS: PANTOPRAZOLE 40 MG/10 ML VIAL IVP SCH (11:09)
[2019-02-28] MEDS: ACETAMINOPHEN IV (For NPO) 1,000 MG in EMPTY BAG 1 BAG IVPB SCH ×2 (11:14→19:26)
[2019-02-28 11:38] LABS: Glucose,Whole Blood 196 mg/dL (75-99)
[2019-02-28] MEDS: KETOROLAC 30 MG/ML 1 ML VIAL IVP SCH ×2 (12:25→17:21)
--- NOTE | 2019-02-28 14:04 | P.PN ---
Progress Note - Text 02/28 1300 58-year-old male status post exploratory lap and lysis of adhesion by Dr. Nichols. Patient has an epidural catheter for postop pain control , epidural catheter got disconnected and had to be discontinued. Patient has a VAS of 5
--- NOTE | 2019-02-28 14:15 | P.PN ---
Subjective Progress Note Date: 02/28/19 Principal diagnosis: Patient is a 58-year-old male with a past medical history of diabetes mellitus type 2 insulin requiring, hypertension, dyslipidemia, systolic congest julio heart failure with last ejection fraction 45-50%, and adrenal insufficiency requiring twice daily Cortef who presented to the ER with complaints of abdominal pain. On arrival to the ER his vital signs within normal limits. White blood cell count was slightly elevated at 12.9. Laboratory analysis is otherwise unremarkable. Urinalysis negative. CT abdomen and pelvis showed partial small bowel obstruction with concern for adhesions. He was started on IV fluids, made nothing by mouth, and had an nasogastric tube placed. He was admitted for further monitoring. We're asked to consult regarding his adrenal insufficiency and diabetic management. He was recently hospitalized here from 02/09 through 02/12 group B strep bacteremia related to infection of the skin. He is due to complete his Rocephin therapy after his dose on 01/26. The patient seen and examined at bedside. The patient complaining of significant abdominal discomfort, apparently had epidural that became displaced and was subsequently removed overnight, patient recently received a dose of Dilaudid fasting blood sugar 212, hemoglobin at 6.7. Scheduled to have a unit of packed RBCs. Postop day #1 s/p exploratory laparotomy, repair of incisional hernia, lysis of adhesions, partial omentectomy, right colectomy and small bowel resection Objective - Vital Signs Vital signs: Vital Signs Temp 98.5 F 02/28/19 07:00 Pulse 80 02/28/19 09:14 Resp 18 02/28/19 07:00 BP 109/71 02/28/19 07:00 Pulse Ox 100 02/28/19 07:00 Intake & Output 02/27/19 02/28/19 02/28/19 18:59 06:59 18:59 Intake Total 1950 Output Total 1355 650 Balance 595 -650 Weight 94.1 kg Intake: IV 1950 Output: Gastric Drainage 500 Urine 605 650 Estimated Blood Loss 250 Other: Voiding Method Indwelling Catheter Indwelling Catheter Indwelling Catheter - Exam Constitutional: No acute distress, conversant, pleasant Eyes: Anicteric sclerae, moist conjunctiva, no lid-lag, PERRLA ENMT: NC/AT,Oropharynx clear, no erythema, exudates, NG tube in place Neck:Supple, FROM, no masses, or JVD, No carotid bruits; No thyromegaly Lungs: Diminished bilaterally Clear to auscultation, Clear to percussion, Normal respiratory effort, no accessory muscle use Cardiovascular: Heart regular in rate and rhythm, No murmurs, gallops, or rubs no peripheral edema GI: tender to palpation, abdominal binder, abdominal incision dressed with minimal drainage noted, hypoactive bowel sounds Skin: Normal temperature, tone, texture, turgor, No induration No subcutaneous nodules, No rash, lesions, No ulcers Extremities:No digital cyanosis No clubbing, Pedal pulses intact and sym metrical Radial pulses intact and symmetrical Normal gait and station, No calf tenderness Psychiatric: Alert and oriented to person, place and time, Appropriate affect Intact judgement Neuro: Muscles Strength 5/5 in all 4 extremities, Sensation to light touch grossly present throughout, Cranial nerves II-XII grossly intact. No focal sensory deficits - Labs CBC & Chem 7: 02/28/19 08:20 02/28/19 08:20 Labs: Abnormal Lab Results - Last 24 Hours (Table) 02/27/19 02/27/19 02/28/19 Range/Units 17:33 19:51 07:13 RBC (4.30-5.90) m/uL Hgb (13.0-17.5) gm/dL Hct (39.0-53.0) % MCH (25.0-35.0) pg MCHC (31.0-37.0) g/dL RDW (11.5-15.5) % Lymphocytes # (1.0-4.8) k/uL Chloride (98-107) mmol/L BUN (9-20) mg/dL Glucose (74-99) mg/dL POC Glucose (mg/dL) 235 H 193 H 212 H (75-99) mg/dL Calcium (8.4-10.2) mg/dL Total Protein (6.3-8.2) g/dL Albumin (3.5-5.0) g/dL Crossmatch 02/28/19 02/28/19 02/28/19 Range/Units 08:20 08:20 10:05 RBC 2.73 L (4.30-5.90) m/uL Hgb 6.7 L* D (13.0-17.5) gm/dL Hct 22.8 L (39.0-53.0) % MCH 24.6 L (25.0-35.0) pg MCHC 29.3 L (31.0-37.0) g/dL RDW 20.0 H (11.5-15.5) % Lymphocytes # 0.6 L (1.0-4.8) k/uL Chloride 112 H (98-107) mmol/L BUN 48 H (9-20) mg/dL Glucose 202 H (74-99) mg/dL POC Glucose (mg/dL) (75-99) mg/dL Calcium 7.9 L (8.4-10.2) mg/dL Total Protein 5.4 L (6.3-8.2) g/dL Albumin 2.5 L (3.5-5.0) g/dL Crossmatch See Detail 02/28/19 Range/Units 11:36 RBC (4.30-5.90) m/uL Hgb (13.0-17.5) gm/dL Hct (39.0-53.0) % MCH (25.0-35.0) pg MCHC (31.0-37.0) g/dL RDW (11.5-15.5) % Lymphocytes # (1.0-4.8) k/uL Chloride (98-107) mmol/L BUN (9-20) mg/dL Glucose (74-99) mg/dL POC Glucose (mg/dL) 196 H (75-99) mg/dL Calcium (8.4-10.2) mg/dL Total Protein (6.3-8.2) g/dL Albumin (3.5-5.0) g/dL Crossmatch Microbiology - Last 24 Hours (Table) 02/24/19 22:40 Blood Culture - Preliminary Blood No Growth after 72 hours Assessment and Plan Plan: Small bowel obstruction - Postop day #1 Status post exploratory laparoscopy with partial omentectomy, right colectomy and small bowel resection with lysis of adhesions 02/27/19 - NPO with NGT in place - pain control - antiemetics Recent group B strep bacteremia -Continue 2 g every 24 hours DM 2 - Insulin requiring - sliding scale, add low dose levemir 10 u qhs as takes 60 of lantus at home - follow BS closely -By mouth cortisone on hold Acute blood loss anemia -Postoperative expected complication of bowel surgery - Hemoglobins 6.7 will receive a unit of packed RBCs 02/28 -Continue to monitor Acute kidney injury - Prerenal due to dehydration now resolved -Creatinine down from 1.7-1.1 Adrenal insufficiency - NPO will hold oral cortef - Missed 2 doses - continue IV coftef until tolerating oral, considering may have delay absorption until SBO clears Obstructive sleep apnea -BiPAP once NG tube is out -Keep head of bed greater than 45 and sleeping COPD without exacerbation-chronic hypoxic respiratory failure with baseline 2 L nasal cannula -DuoNeb's 4 times daily -Pulmonary hygiene -Continue oxygen therapy HTN, controlled - continue home medications - follow blood pressures HLD - resume statin Compensated systolic congestive heart failure -Lasix on hold -Limit IV fluids -Compensated -Lisinopril, metoprolol -Strict I's Atrial fibrillation rate controlled - Continue current medications - Monitor blood pressures - eplquis on hold per surgery recs - resume when appropriate per surgery Chronic: Hypothyroidism Coronary artery disease Neuropathy Chronic anemia History of pancreatic neuroendocrine tumor DVT: Heparin
[2019-02-28 16:51] LABS: Glucose,Whole Blood 158 mg/dL (75-99)
[2019-02-28] MEDS: amLODIPine 5 MG TAB PO SCH (19:25)
[2019-02-28] MEDS: LEVOTHYROXINE 50 MCG TAB PO SCH (19:35)
[2019-02-28] MEDS: MONTELUKAST 10 MG TAB PO SCH (19:36)
[2019-02-28 20:50] LABS: Glucose,Whole Blood 125 mg/dL (75-99)
[2019-02-28] MEDS: INSULIN DETEMIR (LEVEMIR) 100 UNIT/ML SYR SQ SCH (22:02)
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
[2019-03-01] MEDS: ACETAMINOPHEN IV (For NPO) 1,000 MG in EMPTY BAG 1 BAG IVPB SCH ×2 (00:20→05:14)
[2019-03-01] MEDS: HEPARIN SODIUM,PORCINE 5,000 UNIT/ML 1 ML VIAL SQ SCH ×3 (00:33→18:18)
[2019-03-01] MEDS: KETOROLAC 30 MG/ML 1 ML VIAL IVP SCH ×4 (00:43→20:46)
[2019-03-01] MEDS: AMPICILLIN-SULBACTAM 3 GM in SODIUM CHLORIDE 0.9% 100 ML IVPB SCH ×4 (00:48→19:10)
[2019-03-01] MEDS: MORPHINE SULFATE 4 MG/ML SYRINGE IV PRN ×3 (02:39→19:22)
[2019-03-01 06:57] LABS: Glucose,Whole Blood 76 mg/dL (75-99)
[2019-03-01 07:46] LABS: Calcium 8.1 mg/dL (8.4-10.2); Potassium 4.2 mmol/L (3.5-5.1)
[2019-03-01 08:09] LABS: Anisocytosis Slight; Basophils % (A) 0 %; Eosinophils % (A) 1 %; HCT 22.7 % (39.0-53.0); Hypochromasia Marked; Lymphocytes # (A) 0.5 k/uL (1.0-4.8); Lymphocytes % (A) 9 %; MCH 25.9 pg (25.0-35.0); MCHC 30.2 g/dL (31.0-37.0); Mean Platelet Volume 8.2; Monocytes # (A) 0.3 k/uL (0-1.0); Monocytes % (A) 7 %; Neutrophils # (A) 4.2 k/uL (1.3-7.7); Neutrophils % (A) 82 %; Platelet Count 220 k/uL (150-450); Poikilocytosis Slight; RBC 2.64 m/uL (4.30-5.90); RDW 19.1 % (11.5-15.5); WBC 5.2 k/uL (3.8-10.6)
[2019-03-01 08:25] LABS: HGB 6.8 gm/dL (13.0-17.5)
[2019-03-01] MEDS: IPRATROPIUM-ALBUTEROL 3 ML NEB INHALATION SCH ×4 (08:32→19:43)
[2019-03-01] MEDS: INSULIN ASPART (NovoLOG) 100 UNIT/ML VIAL SQ SCH ×4 (08:48→20:41)
[2019-03-01] MEDS: HYDROCORTISONE SUCCINATE 100 MG/2 ML VIAL IV SCH ×2 (09:27→20:51)
[2019-03-01] MEDS: PANTOPRAZOLE 40 MG/10 ML VIAL IVP SCH (09:28)
[2019-03-01] MEDS: METOPROLOL TARTRATE 25 MG TAB PO SCH ×2 (09:28→16:53)
[2019-03-01] MEDS: valACYclovir HCL 1,000 MG TABLET PO SCH ×2 (09:28→19:13)
[2019-03-01] MEDS: DULoxetine HCL 30 MG CAPSULE.DR PO SCH ×2 (09:29→19:12)
[2019-03-01] MEDS: ENOXAPARIN 40 MG/0.4 ML SYRINGE SQ SCH (09:29)
[2019-03-01] MEDS: ARTIFICIAL TEARS-HYPROMELLOSE DROPS 15 ML BTL BOTH EYES SCH ×4 (09:29→20:56)
[2019-03-01] MEDS: DOCUSATE 100 MG CAP PO SCH ×2 (09:29→19:12)
[2019-03-01] MEDS: FLUCONAZOLE 100 MG TAB PO SCH (09:30)
[2019-03-01] MEDS: LORATADINE 10 MG TAB PO SCH (09:30)
[2019-03-01] MEDS: GABAPENTIN 400 MG CAP PO SCH ×4 (09:30→19:13)
[2019-03-01] MEDS: LISINOPRIL 5 MG TAB PO SCH (09:30)
--- NOTE | 2019-03-01 10:27 | P.PN ---
Subjective Progress Note Date: 03/01/19 Principal diagnosis: Bowel obstruction Patient feels better today. Less discomfort. Pain better controlled with epidural out. Hemoglobin today 6.8. Received 1 unit yesterday. Vital stable. No flatus. Objective - Vital Signs Vital signs: Vital Signs Temp 97.9 F 03/01/19 07:00 Pulse 76 03/01/19 08:43 Resp 16 03/01/19 07:00 BP 113/72 03/01/19 07:00 Pulse Ox 94 L 03/01/19 07:00 Intake & Output 02/28/19 03/01/19 03/01/19 18:59 06:59 18:59 Intake Total 720 600 Output Total 425 200 Balance 295 400 Intake: IV 600 Sodium Chloride 0.9% 1, 600 000 ml @ 75 mls/hr IV . [id number] [facility] Rx#:[id number] Intake, IV Titration 100 Amount ACETAMINOPHEN IV (For NPO 100 ) 1,000 mg In Empty Bag 1 bag @ 400 mls/hr IVPB Q6HR [facility] Rx#:[id number] Blood Product 620 Rc Cpda-1 Unit 310 [id number] Output: Urine 425 200 Other: Voiding Method Indwelling Catheter Indwelling Catheter - Exam Abdomen: Soft, nondistended, incision clean, 3 jarvis intact, mild tenderness - Labs CBC & Chem 7: 03/01/19 06:55 03/01/19 06:55 Labs: Abnormal Lab Results - Last 24 Hours (Table) 02/28/19 02/28/19 02/28/19 Range/Units 10:05 11:36 16:49 RBC (4.30-5.90) m/uL Hgb (13.0-17.5) gm/dL Hct (39.0-53.0) % MCHC (31.0-37.0) g/dL RDW (11.5-15.5) % Lymphocytes # (1.0-4.8) k/uL Sodium (137-145) mmol/L Chloride (98-107) mmol/L BUN (9-20) mg/dL Glucose (74-99) mg/dL POC Glucose (mg/dL) 196 H 158 H (75-99) mg/dL Calcium (8.4-10.2) mg/dL Crossmatch See Detail 02/28/19 03/01/19 03/01/19 Range/Units 20:38 06:55 06:55 RBC 2.64 L (4.30-5.90) m/uL Hgb 6.8 L* (13.0-17.5) gm/dL Hct 22.7 L (39.0-53.0) % MCHC 30.2 L (31.0-37.0) g/dL RDW 19.1 H (11.5-15.5) % Lymphocytes # 0.5 L (1.0-4.8) k/uL Sodium 146 H (137-145) mmol/L Chloride 114 H (98-107) mmol/L BUN 47 H (9-20) mg/dL Glucose 63 L (74-99) mg/dL POC Glucose (mg/dL) 125 H (75-99) mg/dL Calcium 8.1 L (8.4-10.2) mg/dL Crossmatch Microbiology - Last 24 Hours (Table) 02/24/19 22:40 Blood Culture - Preliminary Blood No Growth after 96 hours Assessment and Plan (1) Small bowel obstruction Narrative/Plan: Continue nasogastric tube to suction. Transfuse one unit. Change jarvis to Aquacel silver gauze. Ambulate. Current Visit: Yes Status: Acute Code(s): K56.609 - UNSP INTESTNL OBST, UNSP TO PARTIAL VERSUS COMPLETE OBST SNOMED Code(s): 158636518
--- NOTE | 2019-03-01 10:32 | P.PN ---
Subjective Progress Note Date: 03/01/19 Principal diagnosis: Patient is a 58-year-old male with a past medical history of diabetes mellitus type 2 insulin requiring, hypertension, dyslipidemia, systolic congest julio heart failure with last ejection fraction 45-50%, and adrenal insufficiency requiring twice daily Cortef who presented to the ER with complaints of abdominal pain. On arrival to the ER his vital signs within normal limits. White blood cell count was slightly elevated at 12.9. Laboratory analysis is otherwise unremarkable. Urinalysis negative. CT abdomen and pelvis showed partial small bowel obstruction with concern for adhesions. He was started on IV fluids, made nothing by mouth, and had an nasogastric tube placed. He was admitted for further monitoring. We're asked to consult regarding his adrenal insufficiency and diabetic management. He was recently hospitalized here from 02/09 through 02/12 group B strep bacteremia related to infection of the skin. He is due to complete his Rocephin therapy after his dose on 01/26. The patient seen and examined at bedside. Patient reporting his pain is much improved, denies any flatulence or bowel movements, NG tube in place. patient recently received a dose of Dilaudid fasting blood sugar 76, hemoglobin at 6.8 post 1 u prbcs sheduled to have another unit of packed RBCs. Postop day #2 s/p exploratory laparotomy, repair of incisional hernia, lysis of adhesions, partial omentectomy, right colectomy and small bowel resection Objective - Vital Signs Vital signs: Vital Signs Temp 97.9 F 03/01/19 07:00 Pulse 76 03/01/19 08:43 Resp 16 03/01/19 07:00 BP 113/72 03/01/19 07:00 Pulse Ox 94 L 03/01/19 07:00 Intake & Output 02/28/19 03/01/19 03/01/19 18:59 06:59 18:59 Intake Total 720 600 Output Total 425 200 Balance 295 400 Intake: IV 600 Sodium Chloride 0.9% 1, 600 000 ml @ 75 mls/hr IV . [id number] [facility] Rx#:[id number] Intake, IV Titration 100 Amount ACETAMINOPHEN IV (For NPO 100 ) 1,000 mg In Empty Bag 1 bag @ 400 mls/hr IVPB Q6HR [facility] Rx#:[id number] Blood Product 620 Rc Cpda-1 Unit 310 [id number] Output: Urine 425 200 Other: Voiding Method Indwelling Catheter Indwelling Catheter - Exam Constitutional: No acute distress, conversant, pleasant Eyes: Anicteric sclerae, moist conjunctiva, no lid-lag, PERRLA ENMT: NC/AT,Oropharynx clear, no erythema, exudates, NG tube in place Neck:Supple, FROM, no masses, or JVD, No carotid bruits; No thyromegaly Lungs: Diminished bilaterally Clear to auscultation, Clear to percussion, Normal respiratory effort, no accessory muscle use Cardiovascular: Heart regular in rate and rhythm, No murmurs, gallops, or rubs no peripheral edema GI: tender to palpation, abdominal binder, abdominal incision dressed with minimal drainage noted, hypoactive bowel sounds Skin: Normal temperature, tone, texture, turgor, No induration No subcutaneous nodules, No rash, lesions, No ulcers Extremities:No digital cyanosis No clubbing, Pedal pulses intact and symmetrical Radial pulses intact and symmetrical Normal gait and station, No calf tenderness Psychiatric: Alert and oriented to person, place and time, Appropriate affect Intact judgement Neuro: Muscles Strength 5/5 in all 4 extremities, Sensation to light touch gr ossly present throughout, Cranial nerves II-XII grossly intact. No focal sensory deficits - Labs CBC & Chem 7: 03/01/19 06:55 03/01/19 06:55 Labs: Abnormal Lab Results - Last 24 Hours (Table) 02/28/19 02/28/19 02/28/19 Range/Units 10:05 11:36 16:49 RBC (4.30-5.90) m/uL Hgb (13.0-17.5) gm/dL Hct (39.0-53.0) % MCHC (31.0-37.0) g/dL RDW (11.5-15.5) % Lymphocytes # (1.0-4.8) k/uL Sodium (137-145) mmol/L Chloride (98-107) mmol/L BUN (9-20) mg/dL Glucose (74-99) mg/dL POC Glucose (mg/dL) 196 H 158 H (75-99) mg/dL Calcium (8.4-10.2) mg/dL Crossmatch See Detail 02/28/19 03/01/19 03/01/19 Range/Units 20:38 06:55 06:55 RBC 2.64 L (4.30-5.90) m/uL Hgb 6.8 L* (13.0-17.5) gm/dL Hct 22.7 L (39.0-53.0) % MCHC 30.2 L (31.0-37.0) g/dL RDW 19.1 H (11.5-15.5) % Lymphocytes # 0.5 L (1.0-4.8) k/uL Sodium 146 H (137-145) mmol/L Chloride 114 H (98-107) mmol/L BUN 47 H (9-20) mg/dL Glucose 63 L (74-99) mg/dL POC Glucose (mg/dL) 125 H (75-99) mg/dL Calcium 8.1 L (8.4-10.2) mg/dL Crossmatch Microbiology - Last 24 Hours (Table) 02/24/19 22:40 Blood Culture - Preliminary Blood No Growth after 96 hours Assessment and Plan Plan: Small bowel obstruction - Postop day #1 Status post exploratory laparoscopy with partial omentectomy, right colectomy and small bowel resection with lysis of adhesions 02/27/19 - NPO with NGT in place - pain control - antiemetics Recent group B strep bacteremia -Continued on Unasyn per ID DM 2 - Insulin requiring - sliding scale, add low dose levemir 10 u qhs as takes 60 of lantus at home - follow BS closely -By mouth cortisone on hold Acute blood loss anemia -Postoperative expected complication of bowel surgery - Hemoglobins 6.8 will receive a unit of packed RBCs 02/28 -Continue to monitor Acute kidney injury - Prerenal due to dehydration now resolved -Creatinine down from 1.7-1.1 Adrenal insufficiency - NPO will hold oral cortef - Missed 2 doses - continue IV coftef until tolerating oral, considering may have delay absorption until SBO clears Obstructive sleep apnea -BiPAP once NG tube is out -Keep head of bed greater than 45 and sleeping COPD without exacerbation-chronic hypoxic respiratory failure with baseline 2 L nasal cannula -DuoNeb's 4 times daily -Pulmonary hygiene -Continue oxygen therapy HTN, controlled - continue home medications - follow blood pressures HLD - resume statin Compensated systolic congestive heart failure -Lasix on hold -Limit IV fluids -Compensated -Lisinopril, metoprolol -Strict I's Atrial fibrillation rate controlled - Continue current medications - Monitor blood pressures - eplquis on hold per surgery recs - resume when appropriate per surgery Chronic: Hypothyroidism Coronary artery disease Neuropathy Chronic anemia History of pancreatic neuroendocrine tumor DVT: Heparin
[2019-03-01 12:10] LABS: Glucose,Whole Blood 67 mg/dL (75-99)
[2019-03-01 12:10] LABS: Glucose,Whole Blood 65 mg/dL (75-99)
[2019-03-01 12:34] LABS: Glucose,Whole Blood 78 mg/dL (75-99)
[2019-03-01] MEDS: amLODIPine 5 MG TAB PO SCH (16:53)
[2019-03-01] MEDS: ACETAMINOPHEN TAB 325 MG TAB PO PRN (16:53)
[2019-03-01 16:59] LABS: Glucose,Whole Blood 97 mg/dL (75-99)
[2019-03-01] MEDS: DEXTROSE 5%-0.45% NACL 1,000 ML IV SCH ×2 (17:46→20:57)
--- NOTE | 2019-03-01 17:47 | XR ---
EXAMINATION TYPE: XR chest 1V DATE OF EXAM: 03/01/2019 CLINICAL HISTORY: Difficulty breathing after recent abdominal surgery 2 days ago. New fever and elev ated heart rate. TECHNIQUE: Single AP portable upright view of the chest is obtained. COMPARISON: Chest x-ray from 3 days earlier. FINDINGS: Overlying sternal wires and mediastinal clips are redemonstrated. There is persistent card iomegaly. There is partial visualization of surgical change in the cervical spine. There is chronic p arenchymal change with persistent patchy bibasilar atelectasis and/or scarring. No new focal airspace opacity, pleural effusion, or pneumothorax is evident. Osseous structures are intact. IMPRESSION: Overall stable findings, chronic parenchymal changes and cardiomegaly without new suspi cious acute pulmonary process.
--- NOTE | 2019-03-01 17:49 | XR ---
EXAMINATION TYPE: XR abdomen 2V DATE OF EXAM: 03/01/2019 CLINICAL HISTORY: Developing abdominal pain after recent surgery 2 days ago. TECHNIQUE: Supine and semiupright views of the abdomen are obtained. COMPARISON: CT abdomen and pelvis from 3 days ago FINDINGS: New overlying vertical skin sol are present. There are persisting gas prominent and dil ated left-sided small bowel loops. There is nondilated right sided gas-filled small bowel loops. [place] llic artifact from right hip surgery is redemonstrated. No suspicious pneumoperitoneum. Weighted Dobb estephania catheter epigastric region is still present. IMPRESSION: Overall nonspecific bowel gas pattern remains present.
[2019-03-01] MEDS: MONTELUKAST 10 MG TAB PO SCH (19:13)
[2019-03-01] MEDS: INSULIN DETEMIR (LEVEMIR) 100 UNIT/ML SYR SQ SCH (19:13)
[2019-03-01] MEDS: LEVOTHYROXINE 50 MCG TAB PO SCH (19:13)
[2019-03-01 20:16] LABS: Glucose,Whole Blood 101 mg/dL (75-99)
--- NOTE | 2019-03-01 22:14 | P.PN ---
Subjective Progress Note Date: 03/01/19 58-year-old male well-known to the infectious disease service presents to hospital with progressive abdominal pain. He has been followed in the outpatient setting after his recent hospitalization where group B strep bacteremia was nearly completing his course of intravenous antibiotic therapy when he presented to hospital with the progressive abdominal pain. On 02/27 was taken to the operating room because of his progressive abdominal pain and abnormalities seen on imaging studies and a significant small bowel obstruction was seen due to adhesions. There is also significant fecal stasis into the r ight colon with ischemic changes. Tonsillar the right colectomy was performed as well as the small bowel resection. The patient is not a postoperative and is having significant abdominal pain. The epidural catheter is lodged in is now on intravenous pain medications only. He is awake and alert and conversational. Other than his pain he seems to be improving. He is denying respiratory complai nts she is not having cough or sputum production he does not have nausea NG tube in place. His chronic musculoskeletal pains are without acute change. He is currently without fever or chills. 03/01/2019 is in less pain today, the epidural that did not function well is now out for a day and other pain control is working. No fever of chills, no flatus. Objective - Vital Signs Vital signs: Vital Signs Temp 99.2 F 03/01/19 19:43 Pulse 76 03/01/19 20:00 Resp 18 03/01/19 19:43 BP 136/82 03/01/19 19:43 Pulse Ox 97 03/01/19 19:44 Intake & Output 03/01/19 03/01/19 03/02/19 06:59 18:59 06:59 Intake Total 600 890 Output Total 200 1450 Balance 400 -560 Intake: IV 600 Sodium Chloride 0.9% 1, 600 000 ml @ 75 mls/hr IV . [id number] [facility] Rx#:[id number] Intake, IV Titration 340 Amount Ampicillin-Sulbactam 3 gm 100 In Sodium Chloride 0.9% 100 ml @ 200 mls/hr IVPB Q6HR [facility] Rx#:[id number] Dextrose 5%-0.45% NaCl 1, 240 000 ml @ 100 mls/hr IV . Q10H [facility] Rx#:[id number] Oral 240 Blood Product 310 Rc As-1 Unit 310 [id number] Output: Drainage 450 Abdomen 450 Urine 200 1000 Other: Voiding Method Indwelling Catheter Indwelling Catheter - Exam HEENT: Anicteric conjunctiva are pink and moist nasal mucosa grossly intact without significant lesions, there is no thrush. NG tube is in place oral cavity is dry Neck: The neck is supple without significant lymphadenopathy or thyromegaly. Lungs: There is symmetrical bilateral air entry however some coarse crackles are scattered no connor bronchial sounds. Heart: Regular rate and rhythm with an audible S1-S2, no S3 no S4. There is no significant murmur click or rub, PMI was nondisplaced. Abdomen: Mildly distended, few bowel sounds are noted distinct tenderness to the right lower quadrant TATE drain is in place in the right upper quadrant Extremities: The upper extremities have excellent pulses they are symmetric, no significant petechiae or telangiectasia. No splinter hemorrhages were noted. Lower extremities have evidence of bilateral lower extremity edema left greater than right but no open ulcers are seen at this time Neuro: Awake alert oriented to person place and time. There are no acute new gross focal sensory motor deficits. Pain improved. - Labs CBC & Chem 7: 03/01/19 06:55 03/01/19 06:55 Labs: Abnormal Lab Results - Last 24 Hours (Table) 02/28/19 03/01/19 03/01/19 Range/Units 10:05 06:55 06:55 RBC 2.64 L (4.30-5.90) m/uL Hgb 6.8 L* (13.0-17.5) gm/dL Hct 22.7 L (39.0-53.0) % MCHC 30.2 L (31.0-37.0) g/dL RDW 19.1 H (11.5-15.5) % Lymphocytes # 0.5 L (1.0-4.8) k/uL Sodium 146 H (137-145) mmol/L Chloride 114 H (98-107) mmol/L BUN 47 H (9-20) mg/dL Glucose 63 L (74-99) mg/dL POC Glucose (mg/dL) (75-99) mg/dL Calcium 8.1 L (8.4-10.2) mg/dL Crossmatch See Detail 03/01/19 03/01/19 03/01/19 Range/Units 11:54 11:58 20:14 RBC (4.30-5.90) m/uL Hgb (13.0-17.5) gm/dL Hct (39.0-53.0) % MCHC (31.0-37.0) g/dL RDW (11.5-15.5) % Lymphocytes # (1.0-4.8) k/uL Sodium (137-145) mmol/L Chloride (98-107) mmol/L BUN (9-20) mg/dL Glucose (74-99) mg/dL POC Glucose (mg/dL) 67 L 65 L 101 H (75-99) mg/dL Calcium (8.4-10.2) mg/dL Crossmatch Microbiology - Last 24 Hours (Table) 02/24/19 22:40 Blood Culture - Preliminary Blood No Growth after 96 hours Laboratory Results WBC 5.2 k/uL (3.8-10.6) 03/01/19 06:55 RBC 2.64 m/uL (4.30-5.90) L 03/01/19 06:55 Hgb 6.8 gm/dL (13.0-17.5) L* 03/01/19 06:55 Hct 22.7 % (39.0-53.0) L 03/01/19 06:55 MCV 86.0 fL (80.0-100.0) 03/01/19 06:55 MCH 25.9 pg (25.0-35.0) 03/01/19 06:55 MCHC 30.2 g/dL (31.0-37.0) L 03/01/19 06:55 RDW 19.1 % (11.5-15.5) H 03/01/19 06:55 Plt Count 220 k/uL (150-450) 03/01/19 06:55 Neutrophils % 82 % 03/01/19 06:55 Neutrophils % (Manual) 53 % 02/27/19 08:05 Band Neutrophils % 14 % 02/27/19 08:05 Lymphocytes % 9 % 03/01/19 06:55 Lymphocytes % (Manual) 18 % 02/27/19 08:05 Monocytes % 7 % 03/01/19 06:55 Monocytes % (Manual) 13 % 02/27/19 08:05 Eosinophils % 1 % 03/01/19 06:55 Eosinophils % (Manual) 4 % 02/27/19 08:05 Basophils % 0 % 03/01/19 06:55 Neutrophils # 4.2 k/uL (1.3-7.7) 03/01/19 06:55 Neutrophils # (Manual) 2.10 k/uL (1.3-7.7) 02/27/19 08:05 Lymphocytes # 0.5 k/uL (1.0-4.8) L 03/01/19 06:55 Lymphocytes # (Manual) 0.58 k/uL (1.0-4.8) L 02/27/19 08:05 Monocytes # 0.3 k/uL (0-1.0) 03/01/19 06:55 Monocytes # (Manual) 0.42 k/uL (0-1.0) 02/27/19 08:05 Eosinophils # 0.0 k/uL (0-0.7) 03/01/19 06:55 Eosinophils # (Manual) 0.13 k/uL (0-0.7) 02/27/19 08:05 Basophils # 0.0 k/uL (0-0.2) 03/01/19 06:55 Nucleated RBCs 0 /100 WBC (0-0) 02/27/19 08:05 Manual Slide Review Performed 02/28/19 08:20 Toxic Vacuolation Present 02/27/19 08:05 Polychromasia Present 02/28/19 08:20 Hypochromasia Marked 03/01/19 06:55 Poikilocytosis Slight 03/01/19 06:55 Poikilocytosis (manual Present 02/27/19 08:05 Anisocytosis Slight 03/01/19 06:55 Microcytosis Slight 02/28/19 08:20 Target Cells Present 02/27/19 08:05 PT 9.7 sec (9.0-12.0) 02/28/19 10:05 INR 0.9 (<1.2) 02/28/19 10:05 APTT 26.1 sec (22.0-30.0) 02/28/19 10:05 Sodium 146 mmol/L (137-145) H 03/01/19 06:55 Potassium 4.2 mmol/L (3.5-5.1) 03/01/19 06:55 Chloride 114 mmol/L (98-107) H 03/01/19 06:55 Carbon Dioxide 30 mmol/L (22-30) 03/01/19 06:55 Anion Gap 2 mmol/L 03/01/19 06:55 BUN 47 mg/dL (9-20) H 03/01/19 06:55 Creatinine 1.08 mg/dL (0.66-1.25) 03/01/19 06:55 Est GFR (CKD-EPI)AfAm 86 (>60 ml/min/1.73 sqM) 03/01/19 06:55 Est GFR (CKD-EPI)NonAf 74 (>60 ml/min/1.73 sqM) 03/01/19 06:55 Glucose 63 mg/dL (74-99) L 03/01/19 06:55 POC Glucose (mg/dL) 101 mg/dL (75-99) H 03/01/19 20:14 POC Glu [place] ID Mal [place] 03/01/19 20:14 Plasma Lactic Acid Freddy 1.4 mmol/L (0.7-2.0) 03/01/19 11:33 Calcium 8.1 mg/dL (8.4-10.2) L 03/01/19 06:55 Phosphorus 5.2 mg/dL (2.5-4.5) H 02/25/19 08:02 Magnesium 1.7 mg/dL (1.6-2.3) 02/25/19 08:02 Total Bilirubin 0.4 mg/dL (0.2-1.3) 02/28/19 08:20 AST 30 U/L (17-59) 02/28/19 08:20 ALT 70 U/L (21-72) 02/28/19 08:20 Alkaline Phosphatase 109 U/L (38-126) 02/28/19 08:20 Troponin I 0.015 ng/mL (0.000-0.034) 02/23/19 16:51 Total Protein 5.4 g/dL (6.3-8.2) L 02/28/19 08:20 Albumin 2.5 g/dL (3.5-5.0) L 02/28/19 08:20 Amylase 107 U/L (30-110) 02/23/19 15:07 Lipase 235 U/L (23-300) 02/23/19 15:07 Urine Color Yellow 02/23/19 18:08 Urine Appearance Clear (Clear) 02/23/19 18:08 Urine pH 7.0 (5.0-8.0) 02/23/19 18:08 Ur Specific [place] 1.024 (1.001-1.035) 02/23/19 18:08 Urine Protein Trace (Negative) H 02/23/19 18:08 Urine Glucose (UA) Negative (Negative) 02/23/19 18:08 Urine Ketones Negative (Negative) 02/23/19 18:08 Urine Blood Negative (Negative) 02/23/19 18:08 Urine Nitrite Negative (Negative) 02/23/19 18:08 Urine Bilirubin Negative (Negative) 02/23/19 18:08 Urine Urobilinogen <2.0 mg/dL (<2.0) 02/23/19 18:08 Ur Leukocyte Esterase Negative (Negative) 02/23/19 18:08 Blood Type O Negative 02/28/19 10:05 Blood Type Recheck No 02/28/19 10:05 Antibody Screen NEGATIVE 02/28/19 10:05 Crossmatch See Detail 02/28/19 10:05 Spec Expiration Date 03/03/2019 - 9995 02/28/19 10:05 Microbiology 02/24/19 22:40 Blood Blood Culture - Preliminary No Growth after 96 hours Assessment and Plan (1) Small bowel obstruction Narrative/Plan: 58-year-old male who has a history of multiple medical troubles was recently hospitalized with a bout of sepsis in group B streptococcus was isolated. He has been completing his course of intravenous antibiotic therapy with Rocephin at home has been having ongoing improvement. He however began to have abdominal pain that progressed and constantly presented to the emergency center. He then had multiple evaluations and was taken to the operating room yesterday for these particular pleurotomy and lysis of adhesions as well as the right hemicolectomy and small bowel resection. As noted the epidural catheter malfunctioned and he is now receiving intravenous pain medications. His adrenal insufficiency was being treated with intravenous steroids at this time. As far as a recent group B streptococcus bacteremia this appears to have resolved. However he does have evidence of the acute abdominal process with the obstruction. Based upon history, antimicrobial therapy will be transitioned to ampicillin sulbactam for now pending any further culture results. Anesthesia is working as pain control. Surgery is following NG tube is in plac and we'll try to initiate nutrition when possible. 03/01/2019 pain is better controlled and NG output is improved. Doing well with current ABX therapy. Continue Unasyn for now, is taken in some ice chips without nausea. Still has anemia despite tranfusion yesterday, planned again for today, may need further imaging if still has refractory anemia. culture negative so far. The treatment of the group B strep bacteremia has completed. Current Visit: Yes Status: Acute Code(s): K56.609 - UNSP INTESTNL OBST, UNSP TO PARTIAL VERSUS COMPLETE OBST SNOMED Code(s): 328240385 (2) Sepsis due to group B Streptococcus Current Visit: Yes Status: Acute Code(s): A40.1 - SEPSIS DUE TO STREPTOCOCCUS, GROUP B SNOMED Code(s): 598244201 (3) COPD (chronic obstructive pulmonary disease) Current Visit: Yes Status: Acute Code(s): J44.9 - CHRONIC OBSTRUCTIVE PULMONARY DISEASE, UNSPECIFIED SNOMED Code(s): 97934385 (4) Lower extremity weakness Current Visit: Yes Status: Acute Code(s): R29.898 - OTH SYMPTOMS AND SIGNS INVOLVING THE MUSCULOSKELETAL SYSTEM SNOMED Code(s): 137069224
[2019-03-02] MEDS: HEPARIN SODIUM,PORCINE 5,000 UNIT/ML 1 ML VIAL SQ SCH ×4 (00:04→23:58)
[2019-03-02] MEDS: KETOROLAC 30 MG/ML 1 ML VIAL IVP SCH ×2 (00:07→05:32)
[2019-03-02] MEDS: AMPICILLIN-SULBACTAM 3 GM in SODIUM CHLORIDE 0.9% 100 ML IVPB SCH ×4 (00:12→23:58)
[2019-03-02] MEDS: MORPHINE SULFATE 4 MG/ML SYRINGE IV PRN ×3 (05:37→18:10)
[2019-03-02] MEDS: DEXTROSE 5%-0.45% NACL 1,000 ML IV SCH ×2 (05:38→16:28)
[2019-03-02 06:17] LABS: Appearance,Urine Clear (Clear); Bacteria,Urine Rare /hpf; Bilirubin,Urine Negative (Negative); Blood,Urine Trace (Negative); Color,Urine Yellow; Glucose,Urine (UA) Negative (Negative); Ketones,Urine 1+ (Negative); Leukocyte Esterase,Urine Negative (Negative); Nitrite,Urine Negative (Negative); Protein,Urine 1+ (Negative); RBC,Urine 1 /hpf (0-5); Specific Gravity,Urine 1.025 (1.001-1.035); Urobilinogen,Urine <2.0 mg/dL (<2.0)
[2019-03-02 07:20] LABS: Glucose,Whole Blood 129 mg/dL (75-99)
[2019-03-02] MEDS: IPRATROPIUM-ALBUTEROL 3 ML NEB INHALATION SCH ×4 (08:03→20:24)
[2019-03-02] MEDS: INSULIN ASPART (NovoLOG) 100 UNIT/ML VIAL SQ SCH ×4 (08:03→21:16)
[2019-03-02] MEDS: HYDROCORTISONE SUCCINATE 100 MG/2 ML VIAL IV SCH ×2 (09:05→21:16)
[2019-03-02] MEDS: PANTOPRAZOLE 40 MG/10 ML VIAL IVP SCH (09:05)
[2019-03-02] MEDS: METOPROLOL TARTRATE 25 MG TAB PO SCH ×2 (09:06→21:16)
[2019-03-02] MEDS: DOCUSATE 100 MG CAP PO SCH ×2 (09:06→19:14)
[2019-03-02] MEDS: DULoxetine HCL 30 MG CAPSULE.DR PO SCH ×2 (09:06→19:14)
[2019-03-02] MEDS: ENOXAPARIN 40 MG/0.4 ML SYRINGE SQ SCH (09:06)
[2019-03-02] MEDS: valACYclovir HCL 1,000 MG TABLET PO SCH ×2 (09:06→19:15)
[2019-03-02] MEDS: FLUCONAZOLE 100 MG TAB PO SCH (09:07)
[2019-03-02] MEDS: LORATADINE 10 MG TAB PO SCH (09:08)
[2019-03-02] MEDS: ARTIFICIAL TEARS-HYPROMELLOSE DROPS 15 ML BTL BOTH EYES SCH ×4 (09:08→21:19)
[2019-03-02] MEDS: LISINOPRIL 5 MG TAB PO SCH (09:08)
[2019-03-02] MEDS: GABAPENTIN 400 MG CAP PO SCH ×4 (09:08→19:14)
[2019-03-02 11:46] LABS: Glucose,Whole Blood 177 mg/dL (75-99)
[2019-03-02 12:30] LABS: African American GFR (CKD) >90 (>60 ml/min/1.73 sqM); Anion Gap 9 mmol/L; Blood Urea Nitrogen 32 mg/dL (9-20); Carbon Dioxide 26 mmol/L (22-30); Chloride 111 mmol/L (98-107); Glucose 184 mg/dL (74-99); Potassium 4.3 mmol/L (3.5-5.1); Sodium 146 mmol/L (137-145)
[2019-03-02 12:32] LABS: Anisocytosis Slight; HCT 27.9 % (39.0-53.0); HGB 8.2 gm/dL (13.0-17.5); Hypochromasia Marked; MCH 25.6 pg (25.0-35.0); MCHC 29.5 g/dL (31.0-37.0); MCV 86.9 fL (80.0-100.0); Mean Platelet Volume 8.7; Platelet Count 289 k/uL (150-450); Poikilocytosis Slight; RBC 3.21 m/uL (4.30-5.90); RDW 18.9 % (11.5-15.5)
--- NOTE | 2019-03-02 13:56 | P.PN ---
Subjective Progress Note Date: 03/02/19 Principal diagnosis: Patient is a 58-year-old male with a past medical history of diabetes mellitus type 2 insulin requiring, hypertension, dyslipidemia, systolic congest julio heart failure with last ejection fraction 45-50%, and adrenal insufficiency requiring twice daily Cortef who presented to the ER with complaints of abdominal pain. On arrival to the ER his vital signs within normal limits. White blood cell count was slightly elevated at 12.9. Laboratory analysis is otherwise unremarkable. Urinalysis negative. CT abdomen and pelvis showed partial small bowel obstruction with concern for adhesions. He was started on IV fluids, made nothing by mouth, and had an nasogastric tube placed. He was admitted for further monitoring. We're asked to consult regarding his adrenal insufficiency and diabetic management. He was recently hospitalized here from 02/09 through 02/12 group B strep bacteremia related to infection of the skin. He is due to complete his Rocephin therapy after his dose on 01/26 and was continued on Unasyn. the patient was taken to the OR for exploratory laparotomy, repair of incisional hernia, lysis of adhesions, partial omentectomy, right colectomy and small bowel resection The patient seen and examined at bedside. Patient reporting his pain is much improved, denies any flatulence or bowel movements, NG tube in placehas had approximately 200 mL out,he has had 2 units packed RBC transfusion, apparently became febrile overnight and was also hypertensive.that he has been recultured. blood pressure was initially elevated after not taking his antihypertensive regimen R much more controlled since starting yesterday. Postop day #3 s/p exploratory laparotomy, repair of incisional hernia, lysis of adhesions, partial omentectomy, right colectomy and small bowel resection. Objective - Vital Signs Vital signs: Vital Signs Temp 99.2 F 03/02/19 07:16 Pulse 90 03/02/19 08:11 Resp 20 03/02/19 07:16 BP 147/71 03/02/19 07:16 Pulse Ox 100 03/02/19 08:03 Intake & Output 03/01/19 03/02/19 03/02/19 18:59 06:59 18:59 Intake Total 890 1200 Output Total 1450 840 Balance -560 360 Weight 94.1 kg Intake: IV 1200 Sodium Chloride 0.9% 1, 1200 000 ml @ 75 mls/hr IV . [id number] [facility] Rx#:[id number] Intake, IV Titration 340 Amount Ampicillin-Sulbactam 3 gm 100 In Sodium Chloride 0.9% 100 ml @ 200 mls/hr IVPB Q6HR [facility] Rx#:[id number] Dextrose 5%-0.45% NaCl 1, 240 000 ml @ 100 mls/hr IV . Q10H [facility] Rx#:[id number] Oral 240 Blood Product 310 Rc As-1 Unit 310 [id number] Output: Drainage 450 470 Abdomen 450 470 Urine 1000 Stool 370 Other: Voiding Method Indwelling Catheter Indwelling Catheter Indwelling Catheter - Exam Constitutional: No acute distress, conversant, pleasant Eyes: Anicteric sclerae, moist conjunctiva, no lid-lag, PERRLA ENMT: NC/AT,Oropharynx clear, no erythema, exudates, NG tube in place Neck:Supple, FROM, no masses, or JVD, No carotid bruits; No thyromegaly Lungs: Diminished bilaterally Clear to auscultation, Clear to percussion, Normal respiratory effort, no accessory muscle use Cardiovascular: Heart regular in rate and rhythm, No murmurs, gallops, or rubs no peripheral edema GI: tender to palpation, abdominal binder, abdominal incision dressed with minimal drainage noted, hypoactive bowel sounds Skin: Normal temperature, tone, texture, turgor, No induration No subcutaneous nodules, No rash, lesions, No ulcers Extremities:No digital cyanosis No clubbing, Pedal pulses intact and s ymmetrical Radial pulses intact and symmetrical Normal gait and station, No calf tenderness Psychiatric: Alert and oriented to person, place and time, Appropriate affect Intact judgement Neuro: Muscles Strength 5/5 in all 4 extremities, Sensation to light touch grossly present throughout, Cranial nerves II-XII grossly intact. No focal sensory deficits - Labs CBC & Chem 7: 03/02/19 11:47 03/02/19 11:47 Labs: Abnormal Lab Results - Last 24 Hours (Table) 02/28/19 03/01/19 03/02/19 Range/Units 10:05 20:14 05:30 RBC (4.30-5.90) m/uL Hgb (13.0-17.5) gm/dL Hct (39.0-53.0) % MCHC (31.0-37.0) g/dL RDW (11.5-15.5) % Sodium (137-145) mmol/L Chloride (98-107) mmol/L BUN (9-20) mg/dL Glucose (74-99) mg/dL POC Glucose (mg/dL) 101 H (75-99) mg/dL Calcium (8.4-10.2) mg/dL Urine Protein 1+ H (Negative) Urine Ketones 1+ H (Negative) Urine Blood Trace H (Negative) Urine Bacteria Rare H (None) /hpf Crossmatch See Detail 03/02/19 03/02/19 03/02/19 Range/Units 07:18 11:34 11:47 RBC 3.21 L (4.30-5.90) m/uL Hgb 8.2 L (13.0-17.5) gm/dL Hct 27.9 L (39.0-53.0) % MCHC 29.5 L (31.0-37.0) g/dL RDW 18.9 H (11.5-15.5) % Sodium (137-145) mmol/L Chloride (98-107) mmol/L BUN (9-20) mg/dL Glucose (74-99) mg/dL POC Glucose (mg/dL) 129 H 177 H (75-99) mg/dL Calcium (8.4-10.2) mg/dL Urine Protein (Negative) Urine Ketones (Negative) Urine Blood (Negative) Urine Bacteria (None) /hpf Crossmatch 03/02/19 Range/Units 11:47 RBC (4.30-5.90) m/uL Hgb (13.0-17.5) gm/dL Hct (39.0-53.0) % MCHC (31.0-37.0) g/dL RDW (11.5-15.5) % Sodium 146 H (137-145) mmol/L Chloride 111 H (98-107) mmol/L BUN 32 H (9-20) mg/dL Glucose 184 H (74-99) mg/dL POC Glucose (mg/dL) (75-99) mg/dL Calcium 8.0 L (8.4-10.2) mg/dL Urine Protein (Negative) Urine Ketones (Negative) Urine Blood (Negative) Urine Bacteria (None) /hpf Crossmatch Microbiology - Last 24 Hours (Table) 02/24/19 22:40 Blood Culture - Preliminary Blood No Growth after 120 hours Assessment and Plan Plan: Small bowel obstruction - Postop day #3 Status post exploratory laparoscopy with partial omentectomy, right colectomy and small bowel resection with lysis of adhesions 02/27/19 - NPO with NGT in place - pain control - antiemetics Recent group B strep bacteremia -Continued on Unasyn per ID DM 2 - Insulin requiring - sliding scale, add low dose levemir 10 u qhs as takes 60 of lantus at home - follow BS closely -By mouth cortisone on hold Acute blood loss anemia -Postoperative expected complication of bowel surgery - Hemoglobins 8.2 will receive 2 unit of packed RBCs 02/28 -Continue to monitor Acute kidney injury - Prerenal due to dehydration now resolved -Creatinine down from 1.7-1.1 Adrenal insufficiency - NPO will hold oral cortef - Missed 2 doses - continue IV coftef until tolerating oral, considering may have delay absorption until SBO clears Obstructive sleep apnea -BiPAP once NG tube is out -Keep head of bed greater than 45 and sleeping COPD without exacerbation-chronic hypoxic respiratory failure with baseline 2 L nasal cannula -DuoNeb's 4 times daily -Pulmonary hygiene -Continue oxygen therapy HTN, controlled - continue home medications - follow blood pressures HLD - resume statin Compensated systolic congestive heart failure -Lasix on hold -Limit IV fluids -Compensated -Lisinopril, metoprolol -Strict I's Atrial fibrillation rate controlled - Continue current medications - Monitor blood pressures - eplquis on hold per surgery recs - resume when appropriate per surgery Chronic: Hypothyroidism Coronary artery disease Neuropathy Chronic anemia History of pancreatic neuroendocrine tumor DVT: Heparin
--- NOTE | 2019-03-02 14:22 | P.PN ---
Progress Note - Text Progress Note Date: 03/02/19 The patient is resting comfortably in his bed. He still has a fair amount of bilious NG tube drainage. He has some incisional pain. On exam his vital signs are stable. His abdomen is soft. Incision site is clean dry intact. There are silver rope dressings in his wound where the Telfa jarvis were once placed. There is no evidence of any infection. Status post small bowel resection and right colectomy for small obstruction. Patient was noted to have a large amount of stool in his colon with sinus surgery. He'll receive a Dulcolax suppository today. He'll remain nothing by mouth with NG tube.
[2019-03-02] MEDS: ACETAMINOPHEN TAB 325 MG TAB PO PRN (15:51)
[2019-03-02] MEDS: BISACODYL 10 MG SUPP RECTAL SCH (16:27)
[2019-03-02 17:16] LABS: Glucose,Whole Blood 213 mg/dL (75-99)
[2019-03-02] MEDS: MONTELUKAST 10 MG TAB PO SCH (19:14)
[2019-03-02] MEDS: LEVOTHYROXINE 50 MCG TAB PO SCH (19:14)
[2019-03-02 20:27] LABS: Glucose,Whole Blood 196 mg/dL (75-99)
[2019-03-02] MEDS: amLODIPine 5 MG TAB PO SCH (21:16)
[2019-03-02] MEDS: INSULIN DETEMIR (LEVEMIR) 100 UNIT/ML SYR SQ SCH (21:16)
[2019-03-02 23:47] LABS: Glucose,Whole Blood 206 mg/dL (75-99)
--- NOTE | 2019-03-03 00:52 | P.PN ---
Subjective Progress Note Date: 03/02/19 58-year-old male well-known to the infectious disease service presents to hospital with progressive abdominal pain. He has been followed in the outpatient setting after his recent hospitalization where group B strep bacteremia was nearly completing his course of intravenous antibiotic therapy when he presented to hospital with the progressive abdominal pain. On 02/27 was taken to the operating room because of his progressive abdominal pain and abnormalities seen on imaging studies and a significant small bowel obstruction was seen due to adhesions. There is also significant fecal stasis into the r ight colon with ischemic changes. Tonsillar the right colectomy was performed as well as the small bowel resection. The patient is not a postoperative and is having significant abdominal pain. The epidural catheter is lodged in is now on intravenous pain medications only. He is awake and alert and conversational. Other than his pain he seems to be improving. He is denying respiratory complai nts she is not having cough or sputum production he does not have nausea NG tube in place. His chronic musculoskeletal pains are without acute change. He is currently without fever or chills. 03/01/2019 is in less pain today, the epidural that did not function well is now out for a day and other pain control is working. No fever of chills, no flatus. 03/02/2019 still has significant amounts of pain relates with the current pain medication is more comfortable than prior. Objective - Vital Signs Vital signs: Vital Signs Temp 99.7 F H 03/02/19 20:45 Pulse 86 03/02/19 20:45 Resp 18 03/02/19 20:45 BP 155/75 03/02/19 20:45 Pulse Ox 98 03/02/19 20:45 Intake & Output 03/02/19 03/02/19 03/03/19 06:59 18:59 06:59 Intake Total 1200 Output Total 840 1050 500 Balance 360 -1050 -500 Weight 94.1 kg Intake: IV 1200 Sodium Chloride 0.9% 1, 1200 000 ml @ 75 mls/hr IV . [id number] [facility] Rx#:[id number] Output: Drainage 470 500 Abdomen 470 500 Urine 550 500 Stool 370 Other: Voiding Method Indwelling Catheter Indwelling Catheter # Voids 0 # Bowel Movements 0 - Exam HEENT: Anicteric conjunctiva are pink and moist nasal mucosa grossly intact without significant lesions, there is no thrush. NG tube is in place oral cavity is dry Neck: The neck is supple without significant lymphadenopathy or thyromegaly. Lungs: There is symmetrical bilateral air entry however some coarse crackles are scattered no ocnnor bronchial sounds. Heart: Regular rate and rhythm with an audible S1-S2, no S3 no S4. There is no significant murmur click or rub, PMI was nondisplaced. Abdomen: Mildly distended, few bowel sounds are noted distinct tenderness to the right lower quadrant TATE drain is in place in the right upper quadrant Extremities: The upper extremities have excellent pulses they are symmetric, no significant petechiae or telangiectasia. No splinter hemorrhages were noted. Lower extremities have evidence of bilateral lower extremity edema left greater than right but no open ulcers are seen at this time Neuro: Awake alert oriented to person place and time. There are no acute new gross focal sensory motor deficits. Pain improved. - Labs CBC & Chem 7: 03/02/19 11:47 03/02/19 11:47 Labs: Abnormal Lab Results - Last 24 Hours (Table) 03/02/19 03/02/19 03/02/19 Range/Units 05:30 07:18 11:34 RBC (4.30-5.90) m/uL Hgb (13.0-17.5) gm/dL Hct (39.0-53.0) % MCHC (31.0-37.0) g/dL RDW (11.5-15.5) % Sodium (137-145) mmol/L Chloride (98-107) mmol/L BUN (9-20) mg/dL Glucose (74-99) mg/dL POC Glucose (mg/dL) 129 H 177 H (75-99) mg/dL Calcium (8.4-10.2) mg/dL Urine Protein 1+ H (Negative) Urine Ketones 1+ H (Negative) Urine Blood Trace H (Negative) Urine Bacteria Rare H (None) /hpf 03/02/19 03/02/19 03/02/19 Range/Units 11:47 11:47 17:15 RBC 3.21 L (4.30-5.90) m/uL Hgb 8.2 L (13.0-17.5) gm/dL Hct 27.9 L (39.0-53.0) % MCHC 29.5 L (31.0-37.0) g/dL RDW 18.9 H (11.5-15.5) % Sodium 146 H (137-145) mmol/L Chloride 111 H (98-107) mmol/L BUN 32 H (9-20) mg/dL Glucose 184 H (74-99) mg/dL POC Glucose (mg/dL) 213 H (75-99) mg/dL Calcium 8.0 L (8.4-10.2) mg/dL Urine Protein (Negative) Urine Ketones (Negative) Urine Blood (Negative) Urine Bacteria (None) /hpf 03/02/19 03/02/19 Range/Units 20:16 23:46 RBC (4.30-5.90) m/uL Hgb (13.0-17.5) gm/dL Hct (39.0-53.0) % MCHC (31.0-37.0) g/dL RDW (11.5-15.5) % Sodium (137-145) mmol/L Chloride (98-107) mmol/L BUN (9-20) mg/dL Glucose (74-99) mg/dL POC Glucose (mg/dL) 196 H 206 H (75-99) mg/dL Calcium (8.4-10.2) mg/dL Urine Protein (Negative) Urine Ketones (Negative) Urine Blood (Negative) Urine Bacteria (None) /hpf Microbiology - Last 24 Hours (Table) 03/01/19 17:47 Blood Culture - Preliminary Blood No Growth after 24 hours 02/24/19 22:40 Blood Culture - Preliminary Blood No Growth after 120 hours Laboratory Results WBC 8.0 k/uL (3.8-10.6) 03/02/19 11:47 RBC 3.21 m/uL (4.30-5.90) L 03/02/19 11:47 Hgb 8.2 gm/dL (13.0-17.5) L 03/02/19 11:47 Hct 27.9 % (39.0-53.0) L 03/02/19 11:47 MCV 86.9 fL (80.0-100.0) 03/02/19 11:47 MCH 25.6 pg (25.0-35.0) 03/02/19 11:47 MCHC 29.5 g/dL (31.0-37.0) L 03/02/19 11:47 RDW 18.9 % (11.5-15.5) H 03/02/19 11:47 Plt Count 289 k/uL (150-450) 03/02/19 11:47 Neutrophils % 82 % 03/01/19 06:55 Neutrophils % (Manual) 53 % 02/27/19 08:05 Band Neutrophils % 14 % 02/27/19 08:05 Lymphocytes % 9 % 03/01/19 06:55 Lymphocytes % (Manual) 18 % 02/27/19 08:05 Monocytes % 7 % 03/01/19 06:55 Monocytes % (Manual) 13 % 02/27/19 08:05 Eosinophils % 1 % 03/01/19 06:55 Eosinophils % (Manual) 4 % 02/27/19 08:05 Basophils % 0 % 03/01/19 06:55 Neutrophils # 4.2 k/uL (1.3-7.7) 03/01/19 06:55 Neutrophils # (Manual) 2.10 k/uL (1.3-7.7) 02/27/19 08:05 Lymphocytes # 0.5 k/uL (1.0-4.8) L 03/01/19 06:55 Lymphocytes # (Manual) 0.58 k/uL (1.0-4.8) L 02/27/19 08:05 Monocytes # 0.3 k/uL (0-1.0) 03/01/19 06:55 Monocytes # (Manual) 0.42 k/uL (0-1.0) 02/27/19 08:05 Eosinophils # 0.0 k/uL (0-0.7) 03/01/19 06:55 Eosinophils # (Manual) 0.13 k/uL (0-0.7) 02/27/19 08:05 Basophils # 0.0 k/uL (0-0.2) 03/01/19 06:55 Nucleated RBCs 0 /100 WBC (0-0) 02/27/19 08:05 Manual Slide Review Performed 02/28/19 08:20 Toxic Vacuolation Present 02/27/19 08:05 Polychromasia Present 02/28/19 08:20 Hypochromasia Marked 03/02/19 11:47 Poikilocytosis Slight 03/02/19 11:47 Poikilocytosis (manual Present 02/27/19 08:05 Anisocytosis Slight 03/02/19 11:47 Microcytosis Slight 02/28/19 08:20 Target Cells Present 02/27/19 08:05 PT 9.7 sec (9.0-12.0) 02/28/19 10:05 INR 0.9 (<1.2) 02/28/19 10:05 APTT 26.1 sec (22.0-30.0) 02/28/19 10:05 Sodium 146 mmol/L (137-145) H 03/02/19 11:47 Potassium 4.3 mmol/L (3.5-5.1) 03/02/19 11:47 Chloride 111 mmol/L (98-107) H 03/02/19 11:47 Carbon Dioxide 26 mmol/L (22-30) 03/02/19 11:47 Anion Gap 9 mmol/L 03/02/19 11:47 BUN 32 mg/dL (9-20) H 03/02/19 11:47 Creatinine 0.84 mg/dL (0.66-1.25) 03/02/19 11:47 Est GFR (CKD-EPI)AfAm >90 (>60 ml/min/1.73 sqM) 03/02/19 11:47 Est GFR (CKD-EPI)NonAf >90 (>60 ml/min/1.73 sqM) 03/02/19 11:47 Glucose 184 mg/dL (74-99) H 03/02/19 11:47 POC Glucose (mg/dL) 206 mg/dL (75-99) H 03/02/19 23:46 POC Glu Nurse Examiner ID Christian Paredes 03/02/19 23:46 Plasma Lactic Acid Freddy 1.4 mmol/L (0.7-2.0) 03/01/19 11:33 Calcium 8.0 mg/dL (8.4-10.2) L 03/02/19 11:47 Phosphorus 5.2 mg/dL (2.5-4.5) H 02/25/19 08:02 Magnesium 2.0 mg/dL (1.6-2.3) 03/02/19 11:47 Total Bilirubin 0.4 mg/dL (0.2-1.3) 02/28/19 08:20 AST 30 U/L (17-59) 02/28/19 08:20 ALT 70 U/L (21-72) 02/28/19 08:20 Alkaline Phosphatase 109 U/L (38-126) 02/28/19 08:20 Troponin I 0.015 ng/mL (0.000-0.034) 02/23/19 16:51 Total Protein 5.4 g/dL (6.3-8.2) L 02/28/19 08:20 Albumin 2.5 g/dL (3.5-5.0) L 02/28/19 08:20 Amylase 107 U/L (30-110) 02/23/19 15:07 Lipase 235 U/L (23-300) 02/23/19 15:07 Urine Color Yellow 03/02/19 05:30 Urine Appearance Clear (Clear) 03/02/19 05:30 Urine pH 6.0 (5.0-8.0) 03/02/19 05:30 Ur Specific Wrights 1.025 (1.001-1.035) 03/02/19 05:30 Urine Protein 1+ (Negative) H 03/02/19 05:30 Urine Glucose (UA) Negative (Negative) 03/02/19 05:30 Urine Ketones 1+ (Negative) H 03/02/19 05:30 Urine Blood Trace (Negative) H 03/02/19 05:30 Urine Nitrite Negative (Negative) 03/02/19 05:30 Urine Bilirubin Negative (Negative) 03/02/19 05:30 Urine Urobilinogen <2.0 mg/dL (<2.0) 03/02/19 05:30 Ur Leukocyte Esterase Negative (Negative) 03/02/19 05:30 Urine RBC 1 /hpf (0-5) 03/02/19 05:30 Urine WBC 3 /hpf (0-5) 03/02/19 05:30 Urine Bacteria Rare /hpf (None) H 03/02/19 05:30 Blood Type O Negative 02/28/19 10:05 Blood Type Recheck No 02/28/19 10:05 Antibody Screen NEGATIVE 02/28/19 10:05 Crossmatch See Detail 02/28/19 10:05 Spec Expiration Date 03/03/2019230402/28/19 10:05 Microbiology 03/01/19 17:47 Blood Blood Culture - Preliminary No Growth after 24 hours 02/24/19 22:40 Blood Blood Culture - Preliminary No Growth after 120 hours Assessment and Plan (1) Small bowel obstruction Narrative/Plan: 58-year-old male who has a history of multiple medical troubles was recently hospitalized with a bout of sepsis in group B streptococcus was isolated. He has been completing his course of intravenous antibiotic therapy with Rocephin at home has been having ongoing improvement. He however began to have abdominal pain that progressed and constantly presented to the emergency center. He then had multiple evaluations and was taken to the operating room yesterday for these particular pleurotomy and lysis of adhesions as well as the right hemicolectomy and small bowel resection. As noted the epidural catheter malfunctioned and he is now receiving intravenous pain medications. His adrenal insufficiency was being treated with intravenous steroids at this time. As far as a recent group B streptococcus bacteremia this appears to have resolved. However he does have evidence of the acute abdominal process with the obstruction. Based upon history, antimicrobial therapy will be transitioned to ampicillin sulbactam for now pending any further culture results. Anesthesia is working as pain control. Surgery is following NG tube is in plac and we'll try to initiate nutrition when possible. 03/01/2019 pain is better controlled and NG output is improved. Doing well with current ABX therapy. Continue Unasyn for now, is taken in some ice chips without nausea. Still has anemia despite tranfusion yesterday, planned again for today, may need further imaging if still has refractory anemia. culture negative so far. The treatment of the group B strep bacteremia has completed. 03/02/2019 patient is slightly improved. Tolerating antibiotic therapy with Unasyn well. His anemia is more stable and he is a bit more comfortable. Cultures will help determine the course of antibiotic therapy at discharge however likely a course of intravenous antibiotic therapy will be planned. Current Visit: Yes Status: Acute Code(s): K56.609 - UNSP INTESTNL OBST, UNSP TO PARTIAL VERSUS COMPLETE OBST SNOMED Code(s): 287175177 (2) Sepsis due to group B Streptococcus Current Visit: Yes Status: Acute Code(s): A40.1 - SEPSIS DUE TO STR EPTOCOCCUS, GROUP B SNOMED Code(s): 774602999 (3) COPD (chronic obstructive pulmonary disease) Current Visit: Yes Status: Acute Code(s): J44.9 - CHRONIC OBSTRUCTIVE PULMONARY DISEASE, UNSPECIFIED SNOMED Code(s): 52646255 (4) Lower extremity weakness Current Visit: Yes Status: Acute Code(s): R29.898 - OTH SYMPTOMS AND SIGNS INVOLVING THE MUSCULOSKELETAL SYSTEM SNOMED Code(s): 022897679
[2019-03-03] MEDS: DEXTROSE 5%-0.45% NACL 1,000 ML IV SCH ×3 (02:11→22:07)
[2019-03-03] MEDS: AMPICILLIN-SULBACTAM 3 GM in SODIUM CHLORIDE 0.9% 100 ML IVPB SCH ×4 (05:01→23:57)
[2019-03-03 07:08] LABS: Glucose,Whole Blood 223 mg/dL (75-99)
[2019-03-03] MEDS: HEPARIN SODIUM,PORCINE 5,000 UNIT/ML 1 ML VIAL SQ SCH ×3 (07:54→23:57)
[2019-03-03] MEDS: INSULIN ASPART (NovoLOG) 100 UNIT/ML VIAL SQ SCH ×4 (07:54→21:29)
[2019-03-03] MEDS: DOCUSATE 100 MG CAP PO SCH ×2 (08:02→18:56)
[2019-03-03] MEDS: METOPROLOL TARTRATE 25 MG TAB PO SCH ×2 (08:02→21:30)
[2019-03-03] MEDS: HYDROCORTISONE SUCCINATE 100 MG/2 ML VIAL IV SCH ×2 (08:02→21:29)
[2019-03-03] MEDS: PANTOPRAZOLE 40 MG/10 ML VIAL IVP SCH (08:02)
[2019-03-03] MEDS: BISACODYL 10 MG SUPP RECTAL SCH (08:03)
[2019-03-03] MEDS: MORPHINE SULFATE 4 MG/ML SYRINGE IV PRN ×3 (08:03→21:36)
[2019-03-03] MEDS: ARTIFICIAL TEARS-HYPROMELLOSE DROPS 15 ML BTL BOTH EYES SCH ×4 (08:04→22:11)
[2019-03-03] MEDS: DULoxetine HCL 30 MG CAPSULE.DR PO SCH ×2 (08:04→18:56)
[2019-03-03] MEDS: valACYclovir HCL 1,000 MG TABLET PO SCH ×2 (08:05→18:57)
[2019-03-03] MEDS: FLUCONAZOLE 100 MG TAB PO SCH (08:05)
[2019-03-03] MEDS: GABAPENTIN 400 MG CAP PO SCH ×4 (08:05→18:57)
[2019-03-03] MEDS: LISINOPRIL 5 MG TAB PO SCH (08:05)
[2019-03-03] MEDS: ENOXAPARIN 40 MG/0.4 ML SYRINGE SQ SCH (08:05)
[2019-03-03] MEDS: LORATADINE 10 MG TAB PO SCH (08:05)
[2019-03-03] MEDS: IPRATROPIUM-ALBUTEROL 3 ML NEB INHALATION SCH ×4 (08:07→20:13)
[2019-03-03 11:50] LABS: Glucose,Whole Blood 210 mg/dL (75-99)
[2019-03-03 12:18] LABS: Glucose,Whole Blood 218 mg/dL (75-99)
--- NOTE | 2019-03-03 12:20 | CDI ---
Documentation Clarification Form Date: 03/03/2019 12:13:02 PM From: Samaria Ribera Admit Date: 02/23/2019 7:24:00 PM Patient Name: Benja Ribera Visit Number: [id number] ATTENTION: The Clinical Documentation Specialists (CDI) and [facility] Coding Staff appreciate your assistance in clarifying documentation. Please respond to the clarification below the line at the bottom and electronically sign. The CDI & [facility] Coding staff will review the response and follow-up if needed. Please note: Queries are made part of the Legal Health Record. If you have any questions, please contact the author of this message via ITS. Dr. Manuel Jacobo Atrial Fibrillation is documented in the PMH and daily progress notes and requires further specificity. History/Risk Factors: Atrial Fib, CAD, CHF, DM, NC, Pneumonia Clinical Indicators: 02/24- 03/02 Attending progress note: "Atrial fibrillation rate controlled." EKG/telemetry: Treatment: Lopressor 25 mg Po BID In your professional opinion, can you please clarify the type of Atrial Fibrillation, if known? Unable to determine (Last Revision: December 2017) MTDD
--- NOTE | 2019-03-03 13:01 | P.PN ---
Progress Note - Text Progress Note Date: 03/03/19 The patient is resting comfortably in his bed. He states he has some incisional pain. He has had very small flatus last night. There appears to be a lot of ice cube NG tube drainage in the cancer. On exam his vital signs are stable. His abdomen is soft. Incision site is clean dry tach. Status post right colectomy for small bowel obstruction. Patient will remain nothing by mouth until he has significant bowel function. He'll be observed closely.
--- NOTE | 2019-03-03 14:10 | P.PN ---
Subjective Progress Note Date: 03/03/19 Principal diagnosis: Patient is a 58-year-old male with a past medical history of diabetes mellitus type 2 insulin requiring, hypertension, dyslipidemia, systolic congest julio heart failure with last ejection fraction 45-50%, and adrenal insufficiency requiring twice daily Cortef who presented to the ER with complaints of abdominal pain. On arrival to the ER his vital signs within normal limits. White blood cell count was slightly elevated at 12.9. Laboratory analysis is otherwise unremarkable. Urinalysis negative. CT abdomen and pelvis showed partial small bowel obstruction with concern for adhesions. He was started on IV fluids, made nothing by mouth, and had an nasogastric tube placed. He was admitted for further monitoring. We're asked to consult regarding his adrenal insufficiency and diabetic management. He was recently hospitalized here from 02/09 through 02/12 group B strep bacteremia related to infection of the skin. He is due to complete his Rocephin therapy after his dose on 01/26 and was continued on Unasyn. the patient was taken to the OR for exploratory laparotomy, repair of incisional hernia, lysis of adhesions, partial omentectomy, right colectomy and small bowel resection The patient seen and examined at bedside. Patient reporting his pain is much improved, denies any flatulence or bowel movements, NG tube in place, reporting that he is having gas now he has had 2 units packed RBC transfusion, apparently became febrile overnight again and was also hypertensive.. blood pressure was initially elevated after not taking his antihypertensive regimen R much more controlled since starting yesterday. Postop day #4 s/p exploratory laparotomy, repair of incisional hernia, lysis of adhesions, partial omentectomy, right colectomy and small bowel resection. Objective - Vital Signs Vital signs: Vital Signs Temp 99.2 F 03/03/19 06:54 Pulse 99 03/03/19 08:22 Resp 18 03/03/19 08:15 BP 178/91 03/03/19 06:54 Pulse Ox 98 03/03/19 08:09 Intake & Output 03/02/19 03/03/19 03/03/19 18:59 06:59 18:59 Output Total 1050 1950 300 Balance -1050 -1950 -300 Weight 94.1 kg Output: Gastric Drainage 550 Drainage 500 Abdomen 500 Urine 550 1400 300 Other: Voiding Method Indwelling Catheter Bedside Commode Urinal # Voids 0 # Bowel Movements 0 - Exam Constitutional: No acute distress, conversant, pleasant Eyes: Anicteric sclerae, moist conjunctiva, no lid-lag, PERRLA ENMT: NC/AT,Oropharynx clear, no erythema, exudates, NG tube in place Neck:Supple, FROM, no masses, or JVD, No carotid bruits; No thyromegaly Lungs: Diminished bilaterally Clear to auscultation, Clear to percussion, Normal respiratory effort, no accessory muscle use Cardiovascular: Heart regular in rate and rhythm, No murmurs, gallops, or rubs no peripheral edema GI: tender to palpation, abdominal binder, abdominal incision dressed with minimal drainage noted, hypoactive bowel sounds Skin: Normal temperature, tone, texture, turgor, No induration No subcutaneous nodules, No rash, lesions, No ulcers Extremities:No digital cyanosis No clubbing, Pedal pulses intact and symmetrical Radial pulses intact and symmetrical Normal gait and station, No calf tenderness Psychiatric: Alert and oriented to person, place and time, Appropriate affect Intact judgement Neuro: Muscles Strength 5/5 in all 4 extremities, Sensation to light touch grossly present throughout, Cranial nerves II-XII grossly intact. No focal sensory deficits - Labs CBC & Chem 7: 03/02/19 11:47 03/02/19 11:47 Labs: Abnormal Lab Results - Last 24 Hours (Table) 03/02/19 03/02/19 03/02/19 Range/Units 17:15 20:16 23:46 POC Glucose (mg/dL) 213 H 196 H 206 H (75-99) mg/dL 03/03/19 03/03/19 03/03/19 Range/Units 07:06 11:48 12:07 POC Glucose (mg/dL) 223 H 210 H 218 H (75-99) mg/dL Microbiology - Last 24 Hours (Table) 02/24/19 22:40 Blood Culture - Final Blood No Growth after 144 hours 03/01/19 17:47 Blood Culture - Preliminary Blood No Growth after 24 hours Assessment and Plan Plan: Small bowel obstruction - Postop day #4 Status post exploratory laparoscopy with partial omentectomy, right colectomy and small bowel resection with lysis of adhesions 02/27/19 - NPO with NGT in place - pain control - antiemetics Recent group B strep bacteremia -Continued on Unasyn per ID DM 2 - Insulin requiring - sliding scale, add low dose levemir 10 u qhs as takes 60 of lantus at home - follow BS closely -By mouth cortisone on hold Acute blood loss anemia -Postoperative expected complication of bowel surgery - Hemoglobins 8.2 will receive 2 unit of packed RBCs 02/28 -Continue to monitor Acute kidney injury - Prerenal due to dehydration now resolved -Creatinine down from 1.7-1.1 Adrenal insufficiency - NPO will hold oral cortef - Missed 2 doses - continue IV coftef until tolerating oral, considering may have delay absorption until SBO clears Obstructive sleep apnea -BiPAP once NG tube is out -Keep head of bed greater than 45 and sleeping COPD without exacerbation-chronic hypoxic respiratory failure with baseline 2 L nasal cannula -DuoNeb's 4 times daily -Pulmonary hygiene -Continue oxygen therapy HTN, controlled - continue home medications - follow blood pressures HLD - resume statin Compensated systolic congestive heart failure -Lasix on hold -Limit IV fluids -Compensated -Lisinopril, metoprolol -Strict I's Atrial fibrillation rate controlled - Continue current medications - Monitor blood pressures - eplquis on hold per surgery recs - resume when appropriate per surgery Chronic: Hypothyroidism Coronary artery disease Neuropathy Chronic anemia History of pancreatic neuroendocrine tumor DVT: Heparin
[2019-03-03 16:28] LABS: Glucose,Whole Blood 202 mg/dL (75-99)
[2019-03-03 16:44] LABS: Ionized Calcium 4.8 mg/dL (4.5-5.3)
[2019-03-03 16:50] LABS: African American GFR (CKD) >90 (>60 ml/min/1.73 sqM); Anion Gap 6 mmol/L; Blood Urea Nitrogen 16 mg/dL (9-20); Carbon Dioxide 27 mmol/L (22-30); Chloride 109 mmol/L (98-107); Glucose 210 mg/dL (74-99); Magnesium 1.6 mg/dL (1.6-2.3); Phosphorus 2.4 mg/dL (2.5-4.5); Potassium 3.4 mmol/L (3.5-5.1); Sodium 142 mmol/L (137-145); Triglycerides 213 mg/dL (<150)
[2019-03-03] MEDS: LEVOTHYROXINE 50 MCG TAB PO SCH (18:56)
[2019-03-03] MEDS: MONTELUKAST 10 MG TAB PO SCH (18:56)
[2019-03-03] MEDS ORDERED: MVI, ADULT NO.4 WITH VIT K 10 ML, TRACE (CONC-1ML/DOSE) 1 ML in AMINO ACID 4.25%-D10W+L... IV SCH ×3 (19:00)
[2019-03-03 20:16] LABS: Glucose,Whole Blood 186 mg/dL (75-99)
[2019-03-03] MEDS ORDERED: BUPRENORPHINE TOPICAL SCH (21:00)
[2019-03-03] MEDS: INSULIN DETEMIR (LEVEMIR) 100 UNIT/ML SYR SQ SCH (21:29)
[2019-03-03] MEDS: amLODIPine 5 MG TAB PO SCH (21:30)
[2019-03-03] MEDS: ACETAMINOPHEN TAB 325 MG TAB PO PRN (21:36)
[2019-03-03] MEDS: FAT EMULSION 20% 250 ML IV SCH (21:59)
--- NOTE | 2019-03-04 01:28 | P.PN ---
Subjective Progress Note Date: 03/03/19 58-year-old male well-known to the infectious disease service presents to hospital with progressive abdominal pain. He has been followed in the outpatient setting after his recent hospitalization where group B strep bacteremia was nearly completing his course of intravenous antibiotic therapy when he presented to hospital with the progressive abdominal pain. On 02/27 was taken to the operating room because of his progressive abdominal pain and abnormalities seen on imaging studies and a significant small bowel obstruction was seen due to adhesions. There is also significant fecal stasis into the r ight colon with ischemic changes. Tonsillar the right colectomy was performed as well as the small bowel resection. The patient is not a postoperative and is having significant abdominal pain. The epidural catheter is lodged in is now on intravenous pain medications only. He is awake and alert and conversational. Other than his pain he seems to be improving. He is denying respiratory complai nts she is not having cough or sputum production he does not have nausea NG tube in place. His chronic musculoskeletal pains are without acute change. He is currently without fever or chills. 03/01/2019 is in less pain today, the epidural that did not function well is now out for a day and other pain control is working. No fever of chills, no flatus. 03/02/2019 still has significant amounts of pain relates with the current pain medication is more comfortable than prior. 03/03/2019 patient still in pain and still has an NG in place with large amounts of output continues to have the ongoing abdominal pain but is not having shortness of breath. Objective - Vital Signs Vital signs: Vital Signs Temp 98.4 F 03/04/19 00:45 Pulse 81 03/04/19 00:45 Resp 18 03/04/19 00:45 BP 160/72 03/04/19 00:45 Pulse Ox 98 03/04/19 00:45 Intake & Output 03/03/19 03/03/19 03/04/19 06:59 18:59 06:59 Intake Total 900 Output Total 1950 520 Balance -1950 380 Weight 94.1 kg Intake: Intake, IV Titration 900 Amount Ampicillin-Sulbactam 3 gm 100 In Sodium Chloride 0.9% 100 ml @ 200 mls/hr IVPB Q6HR [facility] Rx#:[id number] Dextrose 5%-0.45% NaCl 1, 800 000 ml @ 100 mls/hr IV . Q10H [facility] Rx#:[id number] Output: Gastric Drainage 550 Drainage 220 Abdomen 220 Urine 1400 300 Other: Voiding Method Bedside Commode Urinal # Voids 4 2 - Exam HEENT: Anicteric conjunctiva are pink and moist nasal mucosa grossly intact without significant lesions, there is no thrush. NG tube is in place oral cavity is dry Neck: The neck is supple without significant lymphadenopathy or thyromegaly. Lungs: There is symmetrical bilateral air entry however some coarse crackles are scattered no connor bronchial sounds. Heart: Regular rate and rhythm with an audible S1-S2, no S3 no S4. There is no significant murmur click or rub, PMI was nondisplaced. Abdomen: Mildly distended, few bowel sounds are noted distinct tenderness to the right lower quadrant TATE drain is in place in the right upper quadrant Extremities: The upper extremities have excellent pulses they are symmetric, no significant petechiae or telangiectasia. No splinter hemorrhages were noted. Lower extremities have evidence of bilateral lower extremity edema left greater than right but no open ulcers are seen at this time Neuro: Awake alert oriented to person place and time. There are no acute new gross focal sensory motor deficits. Pain improved. - Labs CBC & Chem 7: 03/02/19 11:47 03/03/19 15:50 Labs: Abnormal Lab Results - Last 24 Hours (Table) 03/03/19 03/03/19 03/03/19 Range/Units 07:06 11:48 12:07 Potassium (3.5-5.1) mmol/L Chloride (98-107) mmol/L Creatinine (0.66-1.25) mg/dL Glucose (74-99) mg/dL POC Glucose (mg/dL) 223 H 210 H 218 H (75-99) mg/dL Calcium (8.4-10.2) mg/dL Phosphorus (2.5-4.5) mg/dL Triglycerides (<150) mg/dL 03/03/19 03/03/19 03/03/19 Range/Units 15:50 16:27 20:04 Potassium 3.4 L (3.5-5.1) mmol/L Chloride 109 H (98-107) mmol/L Creatinine 0.54 L (0.66-1.25) mg/dL Glucose 210 H (74-99) mg/dL POC Glucose (mg/dL) 202 H 186 H (75-99) mg/dL Calcium 8.0 L (8.4-10.2) mg/dL Phosphorus 2.4 L (2.5-4.5) mg/dL Triglycerides 213 H (<150) mg/dL Microbiology - Last 24 Hours (Table) 03/01/19 17:47 Blood Culture - Preliminary Blood No Growth after 48 hours 02/24/19 22:40 Blood Culture - Final Blood No Growth after 144 hours Laboratory Results WBC 8.0 k/uL (3.8-10.6) 03/02/19 11:47 RBC 3.21 m/uL (4.30-5.90) L 03/02/19 11:47 Hgb 8.2 gm/dL (13.0-17.5) L 03/02/19 11:47 Hct 27.9 % (39.0-53.0) L 03/02/19 11:47 MCV 86.9 fL (80.0-100.0) 03/02/19 11:47 MCH 25.6 pg (25.0-35.0) 03/02/19 11:47 MCHC 29.5 g/dL (31.0-37.0) L 03/02/19 11:47 RDW 18.9 % (11.5-15.5) H 03/02/19 11:47 Plt Count 289 k/uL (150-450) 03/02/19 11:47 Neutrophils % 82 % 03/01/19 06:55 Neutrophils % (Manual) 53 % 02/27/19 08:05 Band Neutrophils % 14 % 02/27/19 08:05 Lymphocytes % 9 % 03/01/19 06:55 Lymphocytes % (Manual) 18 % 02/27/19 08:05 Monocytes % 7 % 03/01/19 06:55 Monocytes % (Manual) 13 % 02/27/19 08:05 Eosinophils % 1 % 03/01/19 06:55 Eosinophils % (Manual) 4 % 02/27/19 08:05 Basophils % 0 % 03/01/19 06:55 Neutrophils # 4.2 k/uL (1.3-7.7) 03/01/19 06:55 Neutrophils # (Manual) 2.10 k/uL (1.3-7.7) 02/27/19 08:05 Lymphocytes # 0.5 k/uL (1.0-4.8) L 03/01/19 06:55 Lymphocytes # (Manual) 0.58 k/uL (1.0-4.8) L 02/27/19 08:05 Monocytes # 0.3 k/uL (0-1.0) 03/01/19 06:55 Monocytes # (Manual) 0.42 k/uL (0-1.0) 02/27/19 08:05 Eosinophils # 0.0 k/uL (0-0.7) 03/01/19 06:55 Eosinophils # (Manual) 0.13 k/uL (0-0.7) 02/27/19 08:05 Basophils # 0.0 k/uL (0-0.2) 03/01/19 06:55 Nucleated RBCs 0 /100 WBC (0-0) 02/27/19 08:05 Manual Slide Review Performed 02/28/19 08:20 Toxic Vacuolation Present 02/27/19 08:05 Polychromasia Present 02/28/19 08:20 Hypochromasia Marked 03/02/19 11:47 Poikilocytosis Slight 03/02/19 11:47 Poikilocytosis (manual Present 02/27/19 08:05 Anisocytosis Slight 03/02/19 11:47 Microcytosis Slight 02/28/19 08:20 Target Cells Present 02/27/19 08:05 PT 9.7 sec (9.0-12.0) 02/28/19 10:05 INR 0.9 (<1.2) 02/28/19 10:05 APTT 26.1 sec (22.0-30.0) 02/28/19 10:05 Sodium 142 mmol/L (137-145) 03/03/19 15:50 Potassium 3.4 mmol/L (3.5-5.1) L 03/03/19 15:50 Chloride 109 mmol/L (98-107) H 03/03/19 15:50 Carbon Dioxide 27 mmol/L (22-30) 03/03/19 15:50 Anion Gap 6 mmol/L 03/03/19 15:50 BUN 16 mg/dL (9-20) 03/03/19 15:50 Creatinine 0.54 mg/dL (0.66-1.25) L 03/03/19 15:50 Est GFR (CKD-EPI)AfAm >90 (>60 ml/min/1.73 sqM) 03/03/19 15:50 Est GFR (CKD-EPI)NonAf >90 (>60 ml/min/1.73 sqM) 03/03/19 15:50 Glucose 210 mg/dL (74-99) H 03/03/19 15:50 POC Glucose (mg/dL) 186 mg/dL (75-99) H 03/03/19 20:04 POC Glu [employer] ALICIA Evelyn Pickering 03/03/19 20:04 Plasma Lactic Acid Freddy 1.4 mmol/L (0.7-2.0) 03/01/19 11:33 Calcium 8.0 mg/dL (8.4-10.2) L 03/03/19 15:50 Ionized Calcium [place] 4.8 mg/dL (4.5-5.3) 03/03/19 15:50 Phosphorus 2.4 mg/dL (2.5-4.5) L 03/03/19 15:50 Magnesium 1.6 mg/dL (1.6-2.3) 03/03/19 15:50 Total Bilirubin 0.4 mg/dL (0.2-1.3) 02/28/19 08:20 AST 30 U/L (17-59) 02/28/19 08:20 ALT 70 U/L (21-72) 02/28/19 08:20 Alkaline Phosphatase 109 U/L (38-126) 02/28/19 08:20 Troponin I 0.015 ng/mL (0.000-0.034) 02/23/19 16:51 Total Protein 5.4 g/dL (6.3-8.2) L 02/28/19 08:20 Albumin 2.5 g/dL (3.5-5.0) L 02/28/19 08:20 Triglycerides 213 mg/dL (<150) H 03/03/19 15:50 Amylase 107 U/L (30-110) 02/23/19 15:07 Lipase 235 U/L (23-300) 02/23/19 15:07 Urine Color Yellow 03/02/19 05:30 Urine Appearance Clear (Clear) 03/02/19 05:30 Urine pH 6.0 (5.0-8.0) 03/02/19 05:30 Ur Specific [place] 1.025 (1.001-1.035) 03/02/19 05:30 Urine Protein 1+ (Negative) H 03/02/19 05:30 Urine Glucose (UA) Negative (Negative) 03/02/19 05:30 Urine Ketones 1+ (Negative) H 03/02/19 05:30 Urine Blood Trace (Negative) H 03/02/19 05:30 Urine Nitrite Negative (Negative) 03/02/19 05:30 Urine Bilirubin Negative (Negative) 03/02/19 05:30 Urine Urobilinogen <2.0 mg/dL (<2.0) 03/02/19 05:30 Ur Leukocyte Esterase Negative (Negative) 03/02/19 05:30 Urine RBC 1 /hpf (0-5) 03/02/19 05:30 Urine WBC 3 /hpf (0-5) 03/02/19 05:30 Urine Bacteria Rare /hpf (None) H 03/02/19 05:30 Blood Type O Negative 02/28/19 10:05 Blood Type Recheck No 02/28/19 10:05 Antibody Screen NEGATIVE 02/28/19 10:05 Crossmatch See Detail 02/28/19 10:05 Spec Expiration Date 03/03/2019230402/28/19 10:05 Microbiology 03/01/19 17:47 Blood Blood Culture - Preliminary No Growth after 48 hours 02/24/19 22:40 Blood Blood Culture - Final No Growth after 144 hours Assessment and Plan (1) Small bowel obstruction Narrative/Plan: 58-year-old male who has a history of multiple medical troubles was recently hospitalized with a bout of sepsis in group B streptococcus was isolated. He has been completing his course of intravenous antibiotic therapy with Rocephin at home has been having ongoing improvement. He however began to have abdominal pain that progressed and constantly presented to the emergency center. He then had multiple evaluations and was taken to the operating room yesterday for these particular pleurotomy and lysis of adhesions as well as the right hemicolectomy and small bowel resection. As noted the epidural catheter malfunctioned and he is now receiving intravenous pain medications. His adrenal insufficiency was being treated with intravenous steroids at this time. As far as a recent group B streptococcus bacteremia this appears to have resolved. However he does have evidence of the acute abdominal process with the obstruction. Based upon history, antimicrobial therapy will be transitioned to ampicillin sulbactam for now pending any further culture results. Anesthesia is working as pain control. Surgery is following NG tube is in plac and we'll try to initiate nutrition when possible. 03/01/2019 pain is better controlled and NG output is improved. Doing well with current ABX therapy. Continue Unasyn for now, is taken in some ice chips without nausea. Still has anemia despite tranfusion yesterday, planned again for today, may need further imaging if still has refractory anemia. culture negative so far. The treatment of the group B strep bacteremia has completed. 03/02/2019 patient is slightly improved. Tolerating antibiotic therapy with Unasyn well. His anemia is more stable and he is a bit more comfortable. Cultures will help determine the course of antibiotic therapy at discharge however likely a course of intravenous antibiotic therapy will be planned. 03/03/2019 patient continues to have NG tube in place. Continues with ongoing significant abdominal pain. Feels very poorly. But does feel better than admission. Continue with antibiotic therapy with Unasyn for treatment of the abdominal process and also had a recent group B streptococcal infection. Surgery is following and awaiting for resolution of the ileus so that NG tube can be removed. If he does not have rapid improvement may need alternative forms of feeding.hemoglobin improved at 8.2 today. Current Visit: Yes Status: Acute Code(s): K56.609 - UNSP INTESTNL OBST, UNSP TO PARTIAL VERSUS COMPLETE OBST SNOMED Code(s): 694333092 (2) Sepsis due to group B Streptococcus Current Visit: Yes Status: Acute Code(s): A40.1 - SEPSIS DUE TO STREPTOCOCCUS, GROUP B SNOMED Code(s): 112010361 (3) COPD (chronic obstructive pulmonary disease) Current Visit: Yes Status: Acute Code(s): J44.9 - CHRONIC OBSTRUCTIVE PULMONARY DISEASE, UNSPECIFIED SNOMED Code(s): 19186411 (4) Lower extremity weakness Current Visit: Yes Status: Acute Code(s): R29.898 - OTH SYMPTOMS AND SIGNS INVOLVING THE MUSCULOSKELETAL SYSTEM SNOMED Code(s): 389044298
[2019-03-04] MEDS: AMPICILLIN-SULBACTAM 3 GM in SODIUM CHLORIDE 0.9% 100 ML IVPB SCH ×3 (05:18→17:41)
[2019-03-04 06:48] LABS: Glucose,Whole Blood 285 mg/dL (75-99)
[2019-03-04] MEDS: IPRATROPIUM-ALBUTEROL 3 ML NEB INHALATION SCH ×4 (07:15→20:06)
[2019-03-04] MEDS: INSULIN ASPART (NovoLOG) 100 UNIT/ML VIAL SQ SCH ×4 (07:35→21:44)
[2019-03-04] MEDS: HEPARIN SODIUM,PORCINE 5,000 UNIT/ML 1 ML VIAL SQ SCH ×2 (07:36→15:22)
[2019-03-04] MEDS: BISACODYL 10 MG SUPP RECTAL SCH (07:41)
[2019-03-04] MEDS: DEXTROSE 5%-0.45% NACL 1,000 ML IV SCH ×2 (07:41→17:26)
[2019-03-04] MEDS: MORPHINE SULFATE 4 MG/ML SYRINGE IV PRN ×3 (07:41→20:11)
[2019-03-04] MEDS: ENOXAPARIN 40 MG/0.4 ML SYRINGE SQ SCH (07:46)
[2019-03-04 09:36] LABS: Anisocytosis Slight; HCT 30.1 % (39.0-53.0); HGB 8.9 gm/dL (13.0-17.5); Hypochromasia Marked; MCHC 29.7 g/dL (31.0-37.0); MCV 87.5 fL (80.0-100.0); Mean Platelet Volume 8.1; Platelet Count 352 k/uL (150-450); Poikilocytosis Slight; RBC 3.44 m/uL (4.30-5.90); RDW 19.1 % (11.5-15.5); WBC 9.9 k/uL (3.8-10.6)
[2019-03-04 09:47] LABS: ALT 26 U/L (21-72); AST 22 U/L (17-59); African American GFR (CKD) >90 (>60 ml/min/1.73 sqM); Albumin 2.5 g/dL (3.5-5.0); Alkaline Phosphatase 121 U/L (38-126); Anion Gap 7 mmol/L; Blood Urea Nitrogen 14 mg/dL (9-20); Calcium 7.8 mg/dL (8.4-10.2); Carbon Dioxide 28 mmol/L (22-30); Chloride 105 mmol/L (98-107); Glucose 258 mg/dL (74-99); Magnesium 1.4 mg/dL (1.6-2.3); Phosphorus 2.9 mg/dL (2.5-4.5); Potassium 3.2 mmol/L (3.5-5.1); Sodium 140 mmol/L (137-145); Total Bilirubin 0.6 mg/dL (0.2-1.3); Total Protein 5.6 g/dL (6.3-8.2)
[2019-03-04] MEDS: LISINOPRIL 5 MG TAB PO SCH (10:09)
[2019-03-04] MEDS: DOCUSATE 100 MG CAP PO SCH ×2 (10:09→20:14)
[2019-03-04] MEDS: PANTOPRAZOLE 40 MG/10 ML VIAL IVP SCH (10:10)
[2019-03-04] MEDS: HYDROCORTISONE SUCCINATE 100 MG/2 ML VIAL IV SCH ×2 (10:10→20:14)
[2019-03-04] MEDS: ARTIFICIAL TEARS-HYPROMELLOSE DROPS 15 ML BTL BOTH EYES SCH ×4 (10:10→21:45)
[2019-03-04] MEDS: METOPROLOL TARTRATE 25 MG TAB PO SCH ×2 (10:10→20:14)
[2019-03-04] MEDS: LORATADINE 10 MG TAB PO SCH (10:10)
[2019-03-04] MEDS: FLUCONAZOLE 100 MG TAB PO SCH (10:15)
[2019-03-04] MEDS: DULoxetine HCL 30 MG CAPSULE.DR PO SCH ×2 (10:15→20:14)
[2019-03-04] MEDS: valACYclovir HCL 1,000 MG TABLET PO SCH ×2 (10:16→20:14)
[2019-03-04] MEDS: GABAPENTIN 400 MG CAP PO SCH ×4 (10:16→21:45)
[2019-03-04] MEDS: FAT EMULSION 20% 250 ML IV SCH (11:04)
[2019-03-04] MEDS: MAGNESIUM SULFATE-D5W PMX 1 GM in DEXTROSE/WATER 1 100ML.BAG IVPB SCH ×3 (11:32→15:34)
[2019-03-04] MEDS: 1: AMINO ACID 4.25%-D10W+LYTES*E* 1,000 ML 2: MVI, ADULT NO.4 WITH VIT K 10 ML, TRACE ( IV SCH ×3 (11:53)
[2019-03-04 12:07] LABS: Glucose,Whole Blood 305 mg/dL (75-99)
--- NOTE | 2019-03-04 16:08 | P.PN ---
Subjective Progress Note Date: 03/04/19 Principal diagnosis: Patient is a 58-year-old male with a past medical history of diabetes mellitus type 2 insulin requiring, hypertension, dyslipidemia, systolic congest julio heart failure with last ejection fraction 45-50%, and adrenal insufficiency requiring twice daily Cortef who presented to the ER with complaints of abdominal pain. On arrival to the ER his vital signs within normal limits. White blood cell count was slightly elevated at 12.9. Laboratory analysis is otherwise unremarkable. Urinalysis negative. CT abdomen and pelvis showed partial small bowel obstruction with concern for adhesions. He was started on IV fluids, made nothing by mouth, and had an nasogastric tube placed. He was admitted for further monitoring. We're asked to consult regarding his adrenal insufficiency and diabetic management. He was recently hospitalized here from 02/09 through 02/12 group B strep bacteremia related to infection of the skin. He is due to complete his Rocephin therapy after his dose on 01/26 and was continued on Unasyn due to grup B sepsis and intra-abdominal process. the patient was taken to the OR for exploratory laparotomy, repair of incisional hernia, lysis of adhesions, partial omentectomy, right colectomy and small bowel resection. The patient seen and examined at bedside. I reports that he's passing gas but still has not had a bowel movement, patient hoping to have his NG tube out today. Patient continues to have low-grade fevers post op. Objective - Vital Signs Vital signs: Vital Signs Temp 100.3 F H 03/04/19 14:30 Pulse 90 03/04/19 15:47 Resp 16 03/04/19 14:30 BP 159/76 03/04/19 14:30 Pulse Ox 99 03/04/19 15:47 Intake & Output 03/03/19 03/04/19 03/04/19 18:59 06:59 18:59 Intake Total 900 440 850 Output Total 520 150 200 Balance 380 290 650 Weight 94.1 kg Intake: Intake, IV Titration 900 440 850 Amount Ampicillin-Sulbactam 3 gm 100 100 In Sodium Chloride 0.9% 100 ml @ 200 mls/hr IVPB Q6HR [facility] Rx#:[id number] Dextrose 5%-0.45% NaCl 1, 800 300 000 ml @ 100 mls/hr IV . Q10H [facility] Rx#:[id number] Fat Emulsion 20% 250 ml @ 140 20.833 mls/hr IV DAILY [facility] Rx#:[id number] Fat Emulsion 20% 250 ml @ 250 20.833 mls/hr IV HS [facility] Rx#:[id number] Magnesium Sulfate-D5w Pmx 200 1 gm In Dextrose/Water 1 100ml.bag @ 100 mls/hr IVPB Q1H [facility] Rx#: [id number] Mvi, Adult No.4 with Vit 300 K 10 ml Trace (Conc-1Ml/ Dose) 1 ml In Amino Acid 4.25%-D10w+Lytes*E* 1,000 ml @ 95 mls/hr IV .BY DURATION [facility] Rx#: [id number] Output: Gastric Drainage 150 Drainage 220 Abdomen 220 Urine 300 200 Other: Voiding Method Bedside Commode Urinal Urinal Incontinent # Voids 4 2 - Exam Constitutional: No acute distress, conversant, pleasant Eyes: Anicteric sclerae, moist conjunctiva, no lid-lag, PERRLA ENMT: NC/AT,Oropharynx clear, no erythema, exudates, NG tube in place Neck:Supple, FROM, no masses, or JVD, No carotid bruits; No thyromegaly Lungs: Diminished bilaterally Clear to auscultation, Clear to percussion, Normal respiratory effort, no accessory muscle use Cardiovascular: Heart regular in rate and rhythm, No murmurs, gallops, or rubs no peripheral edema GI: tender to palpation, abdominal binder, abdominal incision dressed with minimal drainage noted, hypoactive bowel sounds Skin: Normal temperature, tone, texture, turgor, No induration No subcutaneous nodules, No rash, lesions, No ulcers Extremities:No digital cyanosis No clubbing, Pedal pulses intact and symmetrical Radial pulses intact and symmetrical Normal gait and station, No calf tenderness Psychiatric: Alert and oriented to person, place and time, Appropriate affect Intact judgement Neuro: Muscles Strength 5/5 in all 4 extremities, Sensation to light touch gr ossly present throughout, Cranial nerves II-XII grossly intact. No focal sensory deficits - Labs CBC & Chem 7: 03/04/19 09:06 03/04/19 09:06 Labs: Abnormal Lab Results - Last 24 Hours (Table) 03/03/19 03/03/19 03/03/19 Range/Units 15:50 16:27 20:04 RBC (4.30-5.90) m/uL Hgb (13.0-17.5) gm/dL Hct (39.0-53.0) % MCHC (31.0-37.0) g/dL RDW (11.5-15.5) % Potassium 3.4 L (3.5-5.1) mmol/L Chloride 109 H (98-107) mmol/L Creatinine 0.54 L (0.66-1.25) mg/dL Glucose 210 H (74-99) mg/dL POC Glucose (mg/dL) 202 H 186 H (75-99) mg/dL Calcium 8.0 L (8.4-10.2) mg/dL Phosphorus 2.4 L (2.5-4.5) mg/dL Magnesium (1.6-2.3) mg/dL Total Protein (6.3-8.2) g/dL Albumin (3.5-5.0) g/dL Triglycerides 213 H (<150) mg/dL 03/04/19 03/04/19 03/04/19 Range/Units 06:44 09:06 09:06 RBC 3.44 L (4.30-5.90) m/uL Hgb 8.9 L (13.0-17.5) gm/dL Hct 30.1 L (39.0-53.0) % MCHC 29.7 L (31.0-37.0) g/dL RDW 19.1 H (11.5-15.5) % Potassium 3.2 L (3.5-5.1) mmol/L Chloride (98-107) mmol/L Creatinine 0.52 L (0.66-1.25) mg/dL Glucose 258 H (74-99) mg/dL POC Glucose (mg/dL) 285 H (75-99) mg/dL Calcium 7.8 L (8.4-10.2) mg/dL Phosphorus (2.5-4.5) mg/dL Magnesium 1.4 L (1.6-2.3) mg/dL Total Protein 5.6 L (6.3-8.2) g/dL Albumin 2.5 L (3.5-5.0) g/dL Triglycerides (<150) mg/dL 03/04/19 Range/Units 12:06 RBC (4.30-5.90) m/uL Hgb (13.0-17.5) gm/dL Hct (39.0-53.0) % MCHC (31.0-37.0) g/dL RDW (11.5-15.5) % Potassium (3.5-5.1) mmol/L Chloride (98-107) mmol/L Creatinine (0.66-1.25) mg/dL Glucose (74-99) mg/dL POC Glucose (mg/dL) 305 H (75-99) mg/dL Calcium (8.4-10.2) mg/dL Phosphorus (2.5-4.5) mg/dL Magnesium (1.6-2.3) mg/dL Total Protein (6.3-8.2) g/dL Albumin (3.5-5.0) g/dL Triglycerides (<150) mg/dL Microbiology - Last 24 Hours (Table) 03/01/19 17:47 Blood Culture - Preliminary Blood No Growth after 48 hours Assessment and Plan Plan: Small bowel obstruction - Postop day #5 Status post exploratory laparoscopy with partial omentectomy, right colectomy and small bowel resection with lysis of adhesions 02/27/19 - NPO with NGT in place hopefully will be removed today and transitioned to CLD - pain control - antiemetics Recent group B strep bacteremia -Continued on Unasyn per ID DM 2 - Insulin requiring - sliding scale, add low dose levemir 10 u qhs as takes 60 of lantus at home - follow BS closely -By mouth cortisone on hold Acute blood loss anemia -Postoperative expected complication of bowel surgery - Hemoglobins 8. 9 s/p 2 unit of packed RBCs 02/28 -Continue to monitor Electrolyte abnormalities - Potassium and magnesium 3.2 and 1.5 respectively Replace and recheck Acute kidney injury - Prerenal due to dehydration now resolved -Creatinine now back to baseline Adrenal insufficiency - NPO will hold oral cortef - Missed 2 doses - continue IV coftef until tolerating oral, considering may have delay absorption until SBO clears Obstructive sleep apnea -BiPAP once NG tube is out -Keep head of bed greater than 45 and sleeping COPD without exacerbation-chronic hypoxic respiratory failure with baseline 2 L nasal cannula -DuoNeb's 4 times daily -Pulmonary hygiene -Continue oxygen therapy HTN, controlled - continue home medications - follow blood pressures HLD - resume statin Compensated systolic congestive heart failure -Lasix on hold -Limit IV fluids -Compensated -Lisinopril, metoprolol -Strict I's Atrial fibrillation rate controlled - Continue current medications - Monitor blood pressures - eplquis on hold per surgery recs - resume when appropriate per surgery Chronic: Hypothyroidism Coronary artery disease Neuropathy Chronic anemia History of pancreatic neuroendocrine tumor DVT: Heparin
[2019-03-04] MEDS: POTASSIUM CHLORIDE 10 MEQ in WATER FOR INJECTION 1 100ML.BAG IVPB SCH ×4 (16:41→21:44)
[2019-03-04 17:10] LABS: Glucose,Whole Blood 395 mg/dL (75-99)
--- NOTE | 2019-03-04 17:51 | P.PN ---
Progress Note - Text Progress Note Date: 03/04/19 The patient feels better. He had a flatus today. On exam his vital signs are stable. Abdomen soft. Incision site is clean. Status post small bowel obstruction with small bowel resection and right colectomy. Patient will have his nasogastric tube removed and started on clear liquids.
[2019-03-04] MEDS: LEVOTHYROXINE 50 MCG TAB PO SCH (20:14)
[2019-03-04] MEDS: amLODIPine 5 MG TAB PO SCH (20:14)
[2019-03-04] MEDS: MONTELUKAST 10 MG TAB PO SCH (20:14)
[2019-03-04 20:19] LABS: Glucose,Whole Blood 341 mg/dL (75-99)
[2019-03-04] MEDS ORDERED: FAT EMULSION 20% 250 ML IV SCH (21:00)
[2019-03-04] MEDS: INSULIN DETEMIR (LEVEMIR) 100 UNIT/ML SYR SQ SCH (21:44)
--- NOTE | 2019-03-04 23:36 | P.PN ---
Subjective Progress Note Date: 03/04/19 58-year-old male well-known to the infectious disease service presents to hospital with progressive abdominal pain. He has been followed in the outpatient setting after his recent hospitalization where group B strep bacteremia was nearly completing his course of intravenous antibiotic therapy when he presented to hospital with the progressive abdominal pain. On 02/27 was taken to the operating room because of his progressive abdominal pain and abnormalities seen on imaging studies and a significant small bowel obstruction was seen due to adhesions. There is also significant fecal stasis into the r ight colon with ischemic changes. Tonsillar the right colectomy was performed as well as the small bowel resection. The patient is not a postoperative and is having significant abdominal pain. The epidural catheter is lodged in is now on intravenous pain medications only. He is awake and alert and conversational. Other than his pain he seems to be improving. He is denying respiratory complai nts she is not having cough or sputum production he does not have nausea NG tube in place. His chronic musculoskeletal pains are without acute change. He is currently without fever or chills. 03/01/2019 is in less pain today, the epidural that did not function well is now out for a day and other pain control is working. No fever of chills, no flatus. 03/02/2019 still has significant amounts of pain relates with the current pain medication is more comfortable than prior. 03/03/2019 patient still in pain and still has an NG in place with large amounts of output continues to have the ongoing abdominal pain but is not having shortness of breath. 03/04/2019 patient's feeling better. NG tube has been removed. She's had some clear liquids and is tolerating that well. Less short of breath mouth is less tender abdominal pain improved. No fever or chills. Objective - Vital Signs Vital signs: Vital Signs Temp 98.9 F 03/04/19 20:12 Pulse 92 03/04/19 20:21 Resp 17 03/04/19 20:12 BP 146/82 03/04/19 20:12 Pulse Ox 100 03/04/19 20:12 Intake & Output 03/04/19 03/04/19 03/05/19 06:59 18:59 06:59 Intake Total 440 1250 400 Output Total 150 200 380 Balance 290 1050 20 Intake: Intake, IV Titration 440 850 200 Amount Ampicillin-Sulbactam 3 gm 100 In Sodium Chloride 0.9% 100 ml @ 200 mls/hr IVPB Q6HR [facility] Rx#:[id number] Dextrose 5%-0.45% NaCl 1, 300 000 ml @ 100 mls/hr IV . Q10H [facility] Rx#:[id number] Fat Emulsion 20% 250 ml @ 140 20.833 mls/hr IV DAILY [facility] Rx#:[id number] Fat Emulsion 20% 250 ml @ 250 20.833 mls/hr IV HS [facility] Rx#:[id number] Magnesium Sulfate-D5w Pmx 200 1 gm In Dextrose/Water 1 100ml.bag @ 100 mls/hr IVPB Q1H [facility] Rx#: [id number] Mvi, Adult No.4 with Vit 300 K 10 ml Trace (Conc-1Ml/ Dose) 1 ml In Amino Acid 4.25%-D10w+Lytes*E* 1,000 ml @ 95 mls/hr IV .BY DURATION [facility] Rx#: [id number] Potassium Chloride 10 meq 200 In Water For Injection 1 100ml.bag @ 100 mls/hr IVPB Q1HR [facility] Rx#: [id number] Oral 400 200 Output: Gastric Drainage 150 Urine 200 380 Other: Voiding Method Urinal Urinal Incontinent Incontinent # Voids 2 1 - Exam HEENT: Anicteric conjunctiva are pink and moist nasal mucosa grossly intact without significant lesions, there is no thrush. NG tube is removed oral cavity improved Neck: The neck is supple without significant lymphadenopathy or thyromegaly. Lungs: There is symmetrical bilateral air entry however some coarse crackles are scattered no connor bronchial sounds. Heart: Regular rate and rhythm with an audible S1-S2, no S3 no S4. There is no significant murmur click or rub, PMI was nondisplaced. Abdomen: Mildly distended, few bowel sounds are noted distinct tenderness to the right lower quadrant TATE drain is in place in the right upper quadrant Extremities: The upper extremities have excellent pulses they are symmetric, no significant petechiae or telangiectasia. No splinter hemorrhages were noted. Lower extremities have evidence of bilateral lower extremity edema left greater than right but no open ulcers are seen at this time Neuro: Awake alert oriented to person place and time. There are no acute new gross focal sensory motor deficits. Pain improved. - Labs CBC & Chem 7: 03/04/19 09:06 03/04/19 09:06 Labs: Abnormal Lab Results - Last 24 Hours (Table) 03/04/19 03/04/19 03/04/19 Range/Units 06:44 09:06 09:06 RBC 3.44 L (4.30-5.90) m/uL Hgb 8.9 L (13.0-17.5) gm/dL Hct 30.1 L (39.0-53.0) % MCHC 29.7 L (31.0-37.0) g/dL RDW 19.1 H (11.5-15.5) % Potassium 3.2 L (3.5-5.1) mmol/L Creatinine 0.52 L (0.66-1.25) mg/dL Glucose 258 H (74-99) mg/dL POC Glucose (mg/dL) 285 H (75-99) mg/dL Calcium 7.8 L (8.4-10.2) mg/dL Magnesium 1.4 L (1.6-2.3) mg/dL Total Protein 5.6 L (6.3-8.2) g/dL Albumin 2.5 L (3.5-5.0) g/dL 03/04/19 03/04/19 03/04/19 Range/Units 12:06 17:08 20:18 RBC (4.30-5.90) m/uL Hgb (13.0-17.5) gm/dL Hct (39.0-53.0) % MCHC (31.0-37.0) g/dL RDW (11.5-15.5) % Potassium (3.5-5.1) mmol/L Creatinine (0.66-1.25) mg/dL Glucose (74-99) mg/dL POC Glucose (mg/dL) 305 H 395 H 341 H (75-99) mg/dL Calcium (8.4-10.2) mg/dL Magnesium (1.6-2.3) mg/dL Total Protein (6.3-8.2) g/dL Albumin (3.5-5.0) g/dL Microbiology - Last 24 Hours (Table) 03/01/19 17:47 Blood Culture - Preliminary Blood No Growth after 72 hours Laboratory Results WBC 9.9 k/uL (3.8-10.6) 03/04/19 09:06 RBC 3.44 m/uL (4.30-5.90) L 03/04/19 09:06 Hgb 8.9 gm/dL (13.0-17.5) L 03/04/19 09:06 Hct 30.1 % (39.0-53.0) L 03/04/19 09:06 MCV 87.5 fL (80.0-100.0) 03/04/19 09:06 MCH 26.0 pg (25.0-35.0) 03/04/19 09:06 MCHC 29.7 g/dL (31.0-37.0) L 03/04/19 09:06 RDW 19.1 % (11.5-15.5) H 03/04/19 09:06 Plt Count 352 k/uL (150-450) 03/04/19 09:06 Neutrophils % 82 % 03/01/19 06:55 Neutrophils % (Manual) 53 % 02/27/19 08:05 Band Neutrophils % 14 % 02/27/19 08:05 Lymphocytes % 9 % 03/01/19 06:55 Lymphocytes % (Manual) 18 % 02/27/19 08:05 Monocytes % 7 % 03/01/19 06:55 Monocytes % (Manual) 13 % 02/27/19 08:05 Eosinophils % 1 % 03/01/19 06:55 Eosinophils % (Manual) 4 % 02/27/19 08:05 Basophils % 0 % 03/01/19 06:55 Neutrophils # 4.2 k/uL (1.3-7.7) 03/01/19 06:55 Neutrophils # (Manual) 2.10 k/uL (1.3-7.7) 02/27/19 08:05 Lymphocytes # 0.5 k/uL (1.0-4.8) L 03/01/19 06:55 Lymphocytes # (Manual) 0.58 k/uL (1.0-4.8) L 02/27/19 08:05 Monocytes # 0.3 k/uL (0-1.0) 03/01/19 06:55 Monocytes # (Manual) 0.42 k/uL (0-1.0) 02/27/19 08:05 Eosinophils # 0.0 k/uL (0-0.7) 03/01/19 06:55 Eosinophils # (Manual) 0.13 k/uL (0-0.7) 02/27/19 08:05 Basophils # 0.0 k/uL (0-0.2) 03/01/19 06:55 Nucleated RBCs 0 /100 WBC (0-0) 02/27/19 08:05 Manual Slide Review Performed 02/28/19 08:20 Toxic Vacuolation Present 02/27/19 08:05 Polychromasia Present 02/28/19 08:20 Hypochromasia Marked 03/04/19 09:06 Poikilocytosis Slight 03/04/19 09:06 Poikilocytosis (manual Present 02/27/19 08:05 Anisocytosis Slight 03/04/19 09:06 Microcytosis Slight 02/28/19 08:20 Target Cells Present 02/27/19 08:05 PT 9.7 sec (9.0-12.0) 02/28/19 10:05 INR 0.9 (<1.2) 02/28/19 10:05 APTT 26.1 sec (22.0-30.0) 02/28/19 10:05 Sodium 140 mmol/L (137-145) 03/04/19 09:06 Potassium 3.2 mmol/L (3.5-5.1) L 03/04/19 09:06 Chloride 105 mmol/L (98-107) 03/04/19 09:06 Carbon Dioxide 28 mmol/L (22-30) 03/04/19 09:06 Anion Gap 7 mmol/L 03/04/19 09:06 BUN 14 mg/dL (9-20) 03/04/19 09:06 Creatinine 0.52 mg/dL (0.66-1.25) L 03/04/19 09:06 Est GFR (CKD-EPI)AfAm >90 (>60 ml/min/1.73 sqM) 03/04/19 09:06 Est GFR (CKD-EPI)NonAf >90 (>60 ml/min/1.73 sqM) 03/04/19 09:06 Glucose 258 mg/dL (74-99) H 03/04/19 09:06 POC Glucose (mg/dL) 341 mg/dL (75-99) H 03/04/19 20:18 POC Glu Data Collector ID Evelyn Pickering 03/04/19 20:18 Plasma Lactic Acid Freddy 1.4 mmol/L (0.7-2.0) 03/01/19 11:33 Calcium 7.8 mg/dL (8.4-10.2) L 03/04/19 09:06 Ionized Calcium Har[place] 4.8 mg/dL (4.5-5.3) 03/03/19 15:50 Phosphorus 2.9 mg/dL (2.5-4.5) 03/04/19 09:06 Magnesium 1.4 mg/dL (1.6-2.3) L 03/04/19 09:06 Total Bilirubin 0.6 mg/dL (0.2-1.3) 03/04/19 09:06 AST 22 U/L (17-59) 03/04/19 09:06 ALT 26 U/L (21-72) 03/04/19 09:06 Alkaline Phosphatase 121 U/L (38-126) 03/04/19 09:06 Troponin I 0.015 ng/mL (0.000-0.034) 02/23/19 16:51 Total Protein 5.6 g/dL (6.3-8.2) L 03/04/19 09:06 Albumin 2.5 g/dL (3.5-5.0) L 03/04/19 09:06 Triglycerides 213 mg/dL (<150) H 03/03/19 15:50 Amylase 107 U/L (30-110) 02/23/19 15:07 Lipase 235 U/L (23-300) 02/23/19 15:07 Urine Color Yellow 03/02/19 05:30 Urine Appearance Clear (Clear) 03/02/19 05:30 Urine pH 6.0 (5.0-8.0) 03/02/19 05:30 Ur Specific [place] 1.025 (1.001-1.035) 03/02/19 05:30 Urine Protein 1+ (Negative) H 03/02/19 05:30 Urine Glucose (UA) Negative (Negative) 03/02/19 05:30 Urine Ketones 1+ (Negative) H 03/02/19 05:30 Urine Blood Trace (Negative) H 03/02/19 05:30 Urine Nitrite Negative (Negative) 03/02/19 05:30 Urine Bilirubin Negative (Negative) 03/02/19 05:30 Urine Urobilinogen <2.0 mg/dL (<2.0) 03/02/19 05:30 Ur Leukocyte Esterase Negative (Negative) 03/02/19 05:30 Urine RBC 1 /hpf (0-5) 03/02/19 05:30 Urine WBC 3 /hpf (0-5) 03/02/19 05:30 Urine Bacteria Rare /hpf (None) H 03/02/19 05:30 Blood Type O Negative 02/28/19 10:05 Blood Type Recheck No 02/28/19 10:05 Antibody Screen NEGATIVE 02/28/19 10:05 Crossmatch See Detail 02/28/19 10:05 Spec Expiration Date 03/03/2019 - 230402/28/19 10:05 Microbiology 03/01/19 17:47 Blood Blood Culture - Preliminary No Growth after 72 hours 02/24/19 22:40 Blood Blood Culture - Final No Growth after 144 hours Assessment and Plan (1) Small bowel obstruction Narrative/Plan: 58-year-old male who has a history of multiple medical troubles was recently hospitalized with a bout of sepsis in group B streptococcus was isolated. He has been completing his course of intravenous antibiotic therapy with Rocephin at home has been having ongoing improvement. He however began to have abdominal pain that progressed and constantly presented to the emergency center. He then had multiple evaluations and was taken to the operating room yesterday for these particular pleurotomy and lysis of adhesions as well as the right hemicolectomy and small bowel resection. As noted the epidural catheter malfunctioned and he is now receiving intravenous pain medications. His adrenal insufficiency was being treated with intravenous steroids at this time. As far as a recent group B streptococcus bacteremia this appears to have resolved. However he does have evidence of the acute abdominal process with the obstruction. Based upon history, antimicrobial therapy will be transitioned to ampicillin sulbactam for now pending any further culture results. Anesthesia is working as pain control. Surgery is following NG tube is in plac and we'll try to initiate nutrition when possible. 03/01/2019 pain is better controlled and NG output is improved. Doing well with current ABX therapy. Continue Unasyn for now, is taken in some ice chips without nausea. Still has anemia despite tranfusion yesterday, planned again for today, may need further imaging if still has refractory anemia. culture negative so far. The treatment of the group B strep bacteremia has completed. 03/02/2019 patient is slightly improved. Tolerating antibiotic therapy with Unasyn well. His anemia is more stable and he is a bit more comfortable. Cultures will help determine the course of antibiotic therapy at discharge howev er likely a course of intravenous antibiotic therapy will be planned. 03/03/2019 patient continues to have NG tube in place. Continues with ongoing significant abdominal pain. Feels very poorly. But does feel better than admission. Continue with antibiotic therapy with Unasyn for treatment of the abdominal process and also had a recent group B streptococcal infection. Surgery is following and awaiting for resolution of the ileus so that NG tube can be removed. If he does not have rapid improvement may need alternative forms of feeding.hemoglobin improved at 8.2 today. 03/04/2019 NG tube removed and patient is more comfortable. Very pleased about some clear liquids that he is obtaining. Now feels better. Tolerating Unasyn well. Diet is advancing as he tolerates. As he improves we'll determine if he has a candidate for oral outpatient therapy. Current Visit: Yes Status: Acute Code(s): K56.609 - UNSP INTESTNL OBST, UNSP TO PARTIAL VERSUS COMPLETE OBST SNOMED Code(s): 318532332 (2) Sepsis due to group B Streptococcus Current Visit: Yes Status: Acute Code(s): A40.1 - SEPSIS DUE TO STREPTOCOCCUS, GROUP B SNOMED Code(s): 324389260 (3) COPD (chronic obstructive pulmonary disease) Current Visit: Yes Status: Acute Code(s): J44.9 - CHRONIC OBSTRUCTIVE PULMONARY DISEASE, UNSPECIFIED SNOMED Code(s): 29377680 (4) Lower extremity weakness Current Visit: Yes Status: Acute Code(s): R29.898 - OTH SYMPTOMS AND SIGNS INVOLVING THE MUSCULOSKELETAL SYSTEM SNOMED Code(s): 243580676
[2019-03-05] MEDS: AMPICILLIN-SULBACTAM 3 GM in SODIUM CHLORIDE 0.9% 100 ML IVPB SCH ×4 (00:35→17:27)
[2019-03-05] MEDS: 1: AMINO ACID 4.25%-D10W+LYTES*E* 1,000 ML 2: MVI, ADULT NO.4 WITH VIT K 10 ML, TRACE ( IV SCH ×9 (00:35→17:55)
[2019-03-05] MEDS: HEPARIN SODIUM,PORCINE 5,000 UNIT/ML 1 ML VIAL SQ SCH ×3 (00:36→16:10)
[2019-03-05] MEDS: DEXTROSE 5%-0.45% NACL 1,000 ML IV SCH ×2 (02:43→11:53)
[2019-03-05 03:33] LABS: Anisocytosis Slight; HCT 25.7 % (39.0-53.0); Hypochromasia Marked; MCH 26.6 pg (25.0-35.0); Mean Platelet Volume 8.4; Platelet Count 307 k/uL (150-450); Poikilocytosis Slight; RBC 2.98 m/uL (4.30-5.90); RDW 18.2 % (11.5-15.5); WBC 11.2 k/uL (3.8-10.6)
[2019-03-05] MEDS: MORPHINE SULFATE 4 MG/ML SYRINGE IV PRN ×2 (05:00→11:30)
[2019-03-05 06:57] LABS: Glucose,Whole Blood 366 mg/dL (75-99)
[2019-03-05] MEDS: FLUCONAZOLE 100 MG TAB PO SCH (07:52)
[2019-03-05] MEDS: METOPROLOL TARTRATE 25 MG TAB PO SCH ×2 (07:52→21:59)
[2019-03-05] MEDS: DULoxetine HCL 30 MG CAPSULE.DR PO SCH ×2 (07:53→21:59)
[2019-03-05] MEDS: LORATADINE 10 MG TAB PO SCH (07:53)
[2019-03-05] MEDS: LISINOPRIL 5 MG TAB PO SCH (07:53)
[2019-03-05] MEDS: DOCUSATE 100 MG CAP PO SCH ×2 (07:53→21:59)
[2019-03-05] MEDS: INSULIN ASPART (NovoLOG) 100 UNIT/ML VIAL SQ SCH ×4 (07:53→21:58)
[2019-03-05] MEDS: valACYclovir HCL 1,000 MG TABLET PO SCH (07:53)
[2019-03-05] MEDS: ENOXAPARIN 40 MG/0.4 ML SYRINGE SQ SCH (07:54)
[2019-03-05] MEDS: PANTOPRAZOLE 40 MG/10 ML VIAL IVP SCH (07:54)
[2019-03-05] MEDS: BISACODYL 10 MG SUPP RECTAL SCH (07:54)
[2019-03-05] MEDS: HYDROCORTISONE SUCCINATE 100 MG/2 ML VIAL IV SCH (07:54)
[2019-03-05] MEDS: GABAPENTIN 400 MG CAP PO SCH ×4 (07:54→21:59)
[2019-03-05] MEDS: ARTIFICIAL TEARS-HYPROMELLOSE DROPS 15 ML BTL BOTH EYES SCH ×4 (07:55→22:00)
[2019-03-05 08:10] LABS: ALT 30 U/L (21-72); AST 22 U/L (17-59); African American GFR (CKD) >90 (>60 ml/min/1.73 sqM); Albumin 2.2 g/dL (3.5-5.0); Alkaline Phosphatase 113 U/L (38-126); Anion Gap 8 mmol/L; Blood Urea Nitrogen 17 mg/dL (9-20); Calcium 7.7 mg/dL (8.4-10.2); Carbon Dioxide 27 mmol/L (22-30); Chloride 102 mmol/L (98-107); Glucose 334 mg/dL (74-99); Magnesium 1.9 mg/dL (1.6-2.3); Sodium 137 mmol/L (137-145); Total Bilirubin 0.4 mg/dL (0.2-1.3)
[2019-03-05] MEDS: IPRATROPIUM-ALBUTEROL 3 ML NEB INHALATION SCH ×4 (09:21→20:01)
[2019-03-05 10:12] LABS: ALT 26 U/L (21-72); AST 22 U/L (17-59); African American GFR (CKD) >90 (>60 ml/min/1.73 sqM); Albumin 2.2 g/dL (3.5-5.0); Alkaline Phosphatase 102 U/L (38-126); Anion Gap 6 mmol/L; Blood Urea Nitrogen 20 mg/dL (9-20); Calcium 7.8 mg/dL (8.4-10.2); Carbon Dioxide 29 mmol/L (22-30); Chloride 102 mmol/L (98-107); Glucose 272 mg/dL (74-99); Magnesium 1.9 mg/dL (1.6-2.3); Phosphorus 3.8 mg/dL (2.5-4.5); Potassium 3.7 mmol/L (3.5-5.1); Sodium 137 mmol/L (137-145); Total Bilirubin 0.4 mg/dL (0.2-1.3); Total Protein 5.1 g/dL (6.3-8.2)
[2019-03-05 11:52] LABS: Glucose,Whole Blood 289 mg/dL (75-99)
[2019-03-05] MEDS: POTASSIUM CHLORIDE 10 MEQ in WATER FOR INJECTION 1 100ML.BAG IVPB SCH ×2 (12:05→13:04)
[2019-03-05] MEDS ORDERED: FUROSEMIDE 10 MG/ML 4 ML VIAL IV STA (13:18)
[2019-03-05] MEDS ORDERED: NA PHOS,M-B/NA PHOS,DI-BA 133 ML ENEMA RECTAL ONE (16:44)
[2019-03-05] MEDS ORDERED: SIMETHICONE 80 MG CHEWABLE PO PRN (16:55)
[2019-03-05 16:56] LABS: Glucose,Whole Blood 269 mg/dL (75-99)
--- NOTE | 2019-03-05 17:18 | P.PN ---
Progress Note - Text Progress Note Date: 03/05/19 The patient some mild complaints of abdominal pain. He has been tolerating liquids. He is passing flatus. On exam his vitals are stable. His abdomen soft. Status post small bowel resection and right colectomy for small bowel obstruction. Patient will have his diet advanced fully liquids. He'll receive a Fleet enema for his chronic constipation.
--- NOTE | 2019-03-05 19:50 | P.PN ---
Subjective Progress Note Date: 03/05/19 Principal diagnosis: abdominal pain Patient is a 58-year-old male with a past medical history of diabetes mellitus type 2 insulin requiring, hypertension, dyslipidemia, systolic congestive heart failure with last ejection fraction 45-50%, and adrenal insufficiency requiring twice daily Cortef who presented to the ER with complaints of abdominal pain. On arrival to the ER his vital signs within normal limits. White blood cell count was slightly elevated at 12.9. L aboratory analysis is otherwise unremarkable. Urinalysis negative. CT abdomen and pelvis showed partial small bowel obstruction with concern for adhesions. He was started on IV fluids, made nothing by mouth, and had an nasogastric tube placed. He was admitted for further monitoring. We're asked to consult regarding his adrenal insufficiency and diabetic management. He was recently hospitalized here from 02/09 through 02/12 group B strep bacteremia related to infection of the skin. He is due to complete his Rocephin therapy after his dose on 01/26. He ultimately underwent exploratory laparotomy with repair of incisional hernia, partial pneumectomy, lysis of adhesion, right colectomy, sma ll bowel resection secondary to his small bowel obstruction on 02/27. He has been progressing well since surgery. Has NG tube discontinued on 03/03. He is being followed by infectious disease recommends Patient seen and examined at bedside. He reports that his abdominal pain is much better than it had been prior, still feels some bloating, passing gas but no bowel movement yet. Having some nausea but wants diet advanced. Denies any chest pain or shortness of breath. Objective - Vital Signs Vital signs: Vital Signs Temp 97.5 F L 03/05/19 07:00 Pulse 107 H 03/05/19 12:20 Resp 16 03/05/19 07:00 BP 104/62 03/05/19 07:00 Pulse Ox 97 03/05/19 07:00 Intake & Output 03/04/19 03/05/19 03/05/19 18:59 06:59 18:59 Intake Total 1250 1400 995.917 Output Total 200 530 350 Balance 1050 870 645.917 Intake: Intake, IV Titration 850 1200 995.917 Amount Amino Acid 4.25%-D10w+ 1000 Lytes*E* 1,000 ml @ 95 mls/hr IV .BY DURATION [facility] Rx#:[id number] Ampicillin-Sulbactam 3 gm 100 In Sodium Chloride 0.9% 100 ml @ 200 mls/hr IVPB Q6HR [facility] Rx#:[id number] Dextrose 5%-0.45% NaCl 1, 300 000 ml @ 100 mls/hr IV . Q10H [facility] Rx#:[id number] Fat Emulsion 20% 250 ml @ 250 20.833 mls/hr IV HS [facility] Rx#:[id number] Magnesium Sulfate-D5w Pmx 200 1 gm In Dextrose/Water 1 100ml.bag @ 100 mls/hr IVPB Q1H [facility] Rx#: [id number] Mvi, Adult No.4 with Vit 995.917 K 10 ml Trace (Conc-1Ml/ Dose) 1 ml In Amino Acid 4.25%-D10w+Lytes*E* 1,000 ml @ 95 mls/hr IV .BY DURATION [facility] Rx#: [id number] Potassium Chloride 10 meq 200 In Water For Injection 1 100ml.bag @ 100 mls/hr IVPB Q1HR [facility] Rx#: [id number] Oral 400 200 Output: Urine 200 530 350 Other: Voiding Method Urinal Urinal Urinal Incontinent Incontinent # Voids 1 - Exam General: Chronically ill-appearing, no distress, appears at stated age Derm: warm, dry Head: atraumatic, normocephalic, symmetric Eyes: EOMI, no lid lag, anicteric sclera Mouth: no lip lesion, mucus membranes moist Cardiovascular: S1S2 reg, no murmur, positive posterior tibial pulse bilateral, Lungs: CTA bilateral, no rhonchi, no rales , no accessory muscle use Abdominal: soft, tender to palpation diffusely, no guarding, no appreciable organomegaly Ext: no gross muscle atrophy, 3+ edema, no contractures Neuro: CN II-XI grossly intact, no focal neuro deficits Psych: Alert, oriented, appropriate affect - Labs CBC & Chem 7: 03/05/19 02:49 03/05/19 09:35 Labs: Abnormal Lab Results - Last 24 Hours (Table) 03/04/19 03/04/19 03/05/19 Range/Units 17:08 20:18 02:49 WBC 11.2 H (3.8-10.6) k/uL RBC 2.98 L (4.30-5.90) m/uL Hgb 8.0 L (13.0-17.5) gm/dL Hct 25.7 L (39.0-53.0) % RDW 18.2 H (11.5-15.5) % Glucose (74-99) mg/dL POC Glucose (mg/dL) 395 H 341 H (75-99) mg/dL Calcium (8.4-10.2) mg/dL Total Protein (6.3-8.2) g/dL Albumin (3.5-5.0) g/dL 03/05/19 03/05/19 03/05/19 Range/Units 02:49 06:54 09:35 WBC (3.8-10.6) k/uL RBC (4.30-5.90) m/uL Hgb (13.0-17.5) gm/dL Hct (39.0-53.0) % RDW (11.5-15.5) % Glucose 334 H 272 H (74-99) mg/dL POC Glucose (mg/dL) 366 H (75-99) mg/dL Calcium 7.7 L 7.8 L (8.4-10.2) mg/dL Total Protein 5.0 L 5.1 L (6.3-8.2) g/dL Albumin 2.2 L 2.2 L (3.5-5.0) g/dL 03/05/19 Range/Units 11:51 WBC (3.8-10.6) k/uL RBC (4.30-5.90) m/uL Hgb (13.0-17.5) gm/dL Hct (39.0-53.0) % RDW (11.5-15.5) % Glucose (74-99) mg/dL POC Glucose (mg/dL) 289 H (75-99) mg/dL Calcium (8.4-10.2) mg/dL Total Protein (6.3-8.2) g/dL Albumin (3.5-5.0) g/dL Microbiology - Last 24 Hours (Table) 03/01/19 17:47 Blood Culture - Preliminary Blood No Growth after 72 hours Assessment and Plan Assessment: Small bowel obstruction status post surgical intervention -Found have small bowel obstruction as well as acute ischemic enteritis - management per surgery: On clear liquid diet - pain control - antiemetics - Dressing in place over midline -Antibiotics per ID currently on Unasyn Diffuse anasarca -Likely secondary to IV fluid and need for TPN -Lasix 401 Recent group B strep bacteremia -Currently on Unasyn which will cover strep bacteremia -ID following n DM 2 with hyperglycemia - stop D5 0.45 - Insulin requiring - sliding scale - Increase Levemir to 15 units - follow BS closely Adrenal insufficiency - Transition from IV to oral Cortef as patient is tolerating diet Obstructive sleep apnea -BiPAP at night COPD without exacerbation-chronic hypoxic respiratory failure with baseline 2 L nasal cannula -DuoNeb's 4 times daily -Pulmonary hygiene -Continue oxygen therapy HTN, controlled - continue home medications - follow blood pressures HLD - statin Compensated systolic congestive heart failure -Lasix on hold -Limit IV fluids -Lisinopril, metoprolol Atrial fibrillation rate controlled - Continue current medications - Monitor blood pressures - eliquis on hold per surgery recs, d/w surgery if okay to resume Chronic: Hypothyroidism Coronary artery disease Neuropathy Chronic anemia History of pancreatic neuroendocrine tumor DVT: lovenox
[2019-03-05 20:49] LABS: Glucose,Whole Blood 178 mg/dL (75-99)
[2019-03-05] MEDS ORDERED: HYDROCORTISONE 10 MG TAB PO SCH (21:00)
[2019-03-05] MEDS: MONTELUKAST 10 MG TAB PO SCH (21:59)
[2019-03-05] MEDS: LEVOTHYROXINE 50 MCG TAB PO SCH (21:59)
[2019-03-05] MEDS: INSULIN DETEMIR (LEVEMIR) 100 UNIT/ML SYR SQ SCH (21:59)
[2019-03-05] MEDS: amLODIPine 5 MG TAB PO SCH (21:59)
[2019-03-06] MEDS: HEPARIN SODIUM,PORCINE 5,000 UNIT/ML 1 ML VIAL SQ SCH ×2 (00:17→09:20)
[2019-03-06] MEDS: AMPICILLIN-SULBACTAM 3 GM in SODIUM CHLORIDE 0.9% 100 ML IVPB SCH ×2 (00:18→05:00)
[2019-03-06] MEDS: 1: AMINO ACID 4.25%-D10W+LYTES*E* 1,000 ML 2: MVI, ADULT NO.4 WITH VIT K 10 ML, TRACE ( IV SCH ×6 (01:21→17:45)
[2019-03-06 06:53] LABS: Glucose,Whole Blood 147 mg/dL (75-99)
[2019-03-06 07:14] LABS: Anisocytosis Slight; HCT 28.2 % (39.0-53.0); HGB 8.8 gm/dL (13.0-17.5); Hypochromasia Marked; MCH 26.3 pg (25.0-35.0); MCHC 31.3 g/dL (31.0-37.0); MCV 83.8 fL (80.0-100.0); Mean Platelet Volume 8.7; Microcytosis Slight; Platelet Count 452 k/uL (150-450); Poikilocytosis Slight; RBC 3.37 m/uL (4.30-5.90); WBC 33.1 k/uL (3.8-10.6)
[2019-03-06] MEDS: IPRATROPIUM-ALBUTEROL 3 ML NEB INHALATION SCH ×6 (07:15→20:13)
[2019-03-06 07:30] LABS: Albumin 2.4 g/dL (3.5-5.0); Calcium 7.7 mg/dL (8.4-10.2); Magnesium 1.5 mg/dL (1.6-2.3); Phosphorus 4.2 mg/dL (2.5-4.5); Potassium 4.4 mmol/L (3.5-5.1); Total Bilirubin 0.9 mg/dL (0.2-1.3); Total Protein 5.6 g/dL (6.3-8.2)
[2019-03-06] MEDS ORDERED: HYDROCORTISONE SUCCINATE 100 MG/2 ML VIAL IV STA (08:22)
[2019-03-06 08:34] LABS: ABG Base Excess 2.1 mmol/L; ABG HCO3 25 mmol/L (21-25); ABG Oxygen Saturation 88.1 % (94-97); ABG PCO2 33 mmHg (35-45); ABG PH 7.49 (7.35-7.45); ABG TCO2 26 mmol/L (19-24); Allen Test Performed? Yes
[2019-03-06] MEDS ORDERED: ACETAMINOPHEN IV (For NPO) 1,000 MG in EMPTY BAG 1 BAG IVPB STA (08:36)
[2019-03-06 08:39] LABS: ABG PO2 51 mmHg (83-108)
[2019-03-06] MEDS: DULoxetine HCL 30 MG CAPSULE.DR PO SCH (08:39)
[2019-03-06] MEDS: DOCUSATE 100 MG CAP PO SCH ×2 (08:39→20:51)
[2019-03-06] MEDS: GABAPENTIN 400 MG CAP PO SCH (08:40)
[2019-03-06] MEDS: LORATADINE 10 MG TAB PO SCH (08:41)
[2019-03-06] MEDS: BISACODYL 10 MG SUPP RECTAL SCH (08:41)
[2019-03-06] MEDS: LISINOPRIL 5 MG TAB PO SCH (08:41)
[2019-03-06] MEDS ORDERED: HYDROCORTISONE 10 MG TAB PO SCH (09:00)
[2019-03-06 09:13] LABS: Albumin 2.3 g/dL (3.5-5.0); Calcium 7.5 mg/dL (8.4-10.2); Potassium 4.6 mmol/L (3.5-5.1); Total Bilirubin 0.9 mg/dL (0.2-1.3); Total Protein 5.2 g/dL (6.3-8.2)
--- NOTE | 2019-03-06 09:18 | XR ---
EXAMINATION TYPE: XR abdomen acute w cxr DATE OF EXAM: 03/06/2019 COMPARISON: 02/05/2018 HISTORY: Fever and abdominal distention TECHNIQUE: Upright AP chest x-ray, upright AP abdominal x-ray, and supine abdominal x-ray were perfo rmed. FINDINGS: Median sternotomy wires are seen. Minimal left basilar subsegmental atelectasis is linear in orientat ion and improved on the abdominal radiograph. Stable probable right midlung granuloma is unchanged fr om 2018. Cervical fusion device is partially visualized. Cardiomediastinal silhouette is enlarged. There are multiple dilated loops of small bowel measuring up to 4.3 cm with few air-fluid levels on t he upright view. Paucity of bowel gas in the rectum is also seen. No dilated large bowel. Right wilma edian surgical sol are present. Cholecystectomy clips are seen. Right femoral arthroplasty and mo derate degenerative changes of the left hip as well as of the lumbar spine are also noted. IMPRESSION: 1. Findings that may represent partial or early small bowel obstruction versus less likely ileus. 2. Minimal left basilar subsegmental atelectasis.
[2019-03-06] MEDS: ENOXAPARIN 40 MG/0.4 ML SYRINGE SQ SCH (09:20)
[2019-03-06] MEDS: ARTIFICIAL TEARS-HYPROMELLOSE DROPS 15 ML BTL BOTH EYES SCH ×3 (09:20→20:39)
[2019-03-06] MEDS: INSULIN ASPART (NovoLOG) 100 UNIT/ML VIAL SQ SCH ×3 (09:20→18:23)
[2019-03-06] MEDS ORDERED: SODIUM CHLORIDE 0.9% 500 ML 500 ML IV ONE (09:29)
[2019-03-06 09:33] LABS: Anisocytosis Slight; Basophils # (A) 0.1 k/uL (0-0.2); Basophils % (A) 0 %; Eosinophils # (A) 0.1 k/uL (0-0.7); Eosinophils % (A) 0 %; HCT 28.6 % (39.0-53.0); HGB 8.7 gm/dL (13.0-17.5); Hypochromasia Marked; Lymphocytes # (A) 1.4 k/uL (1.0-4.8); Lymphocytes % (A) 5 %; MCH 25.7 pg (25.0-35.0); MCHC 30.4 g/dL (31.0-37.0); MCV 84.5 fL (80.0-100.0); Mean Platelet Volume 8.8; Monocytes # (A) 1.1 k/uL (0-1.0); Monocytes % (A) 4 %; Neutrophils # (A) 26.5 k/uL (1.3-7.7); Neutrophils % (A) 89 %; Platelet Count 426 k/uL (150-450); Poikilocytosis Slight; RBC 3.39 m/uL (4.30-5.90); RDW 18.8 % (11.5-15.5); WBC 29.7 k/uL (3.8-10.6)
[2019-03-06] MEDS ORDERED: DEXTROSE 5% IN WATER 100 ML with AMIODARONE 150 MG IV ONE (09:45)
[2019-03-06] MEDS: SODIUM CHLORIDE 0.9% 1,000 ML IV SCH (09:49)
[2019-03-06] MEDS: PANTOPRAZOLE 40 MG/10 ML VIAL IVP SCH ×2 (09:54→21:09)
[2019-03-06 09:55] LABS: Large Platelets Present; Polychromasia Present
[2019-03-06 09:56] LABS: Toxic Granulation Present
[2019-03-06] MEDS ORDERED: AMIODARONE 360 MG in DEXTROSE 5% IN WATER 200 ML IV ONE ×2 (10:00)
[2019-03-06] MEDS ORDERED: MEROPENEM 1 GM in SODIUM CHLORIDE 0.9% 100 ML IVPB SCH (10:00)
[2019-03-06] MEDS ORDERED: SUCCINYLCHOLINE CHLORIDE VIAL 200 MG/10 ML VIAL IV STA ×2 (10:17)
[2019-03-06] MEDS: METOPROLOL TARTRATE 25 MG TAB PO SCH (10:22)
--- NOTE | 2019-03-06 10:27 | P.PN ---
Subjective Progress Note Date: 03/06/19 Principal diagnosis: abdominal pain Patient is a 58-year-old male with a past medical history of diabetes mellitus type 2 insulin requiring, hypertension, dyslipidemia, systolic congestive heart failure with last ejection fraction 45-50%, and adrenal insufficiency requiring twice daily Cortef who presented to the ER with complaints of abdominal pain. On arrival to the ER his vital signs within normal limits. White blood cell count was slightly elevated at 12.9. L aboratory analysis is otherwise unremarkable. Urinalysis negative. CT abdomen and pelvis showed partial small bowel obstruction with concern for adhesions. He was started on IV fluids, made nothing by mouth, and had an nasogastric tube placed. He was admitted for further monitoring. We're asked to consult regarding his adrenal insufficiency and diabetic management. He was recently hospitalized here from 02/09 through 02/12 group B strep bacteremia related to infection of the skin. He is due to complete his Rocephin therapy after his dose on 01/26. He ultimately underwent exploratory laparotomy with repair of incisional hernia, partial omentectomy, lysis of adhesion, right colectomy, sma ll bowel resection secondary to his small bowel obstruction on 02/27. He has been progressing well since surgery. Has NG tube discontinued on 03/03. He is being followed by infectious disease. 03/06. Noted to have WBC increased to 33, order acute abdominal series. Nursing called several minutes later that patient was in distress and spiked a fever to 103. A-team activated and I immediately proceeded to bedside. On arrival patient was noted to be tachycardic with heart rate in the 150s, blood pressure was normal at 154/90, glucose 170, SpO2 90. Patient appears lethargic but was able to wake up and speak, however he was confused and thought that he was in a car. Ordered 1 L fluid bolus, stat CBC, CMP, lactic acid and blood cultures. Acute abdominal series reviewed at bedside and appeared to have dilated loops of small bowel. Dr. Nichols immediately notified and also presented at bedside. ABG was obtained which showed the patient to have a low CO2 level consistent with his tachypnea, and a low PaO2 at 51. His O2 was increased. He was transferred to ICU. CT abdomen and pelvis ordered and reviewed with Dr. Logan which revealed dilated small bowel loops. Plan is for exploratory laparotomy today. Patient also noted be in A. fib with RVR became hypotensive and ICU with the systolic 70s. Therefore an amiodarone drip was ordered. EKG appeared to be consistent with A. fib with RVR. Dr. Pope with critical care consulted. Patient seen and examined at bedside during A team. Lethargic but wakes up, denies shortness of breath, c/o back pain, denies belly and chest pain. Objective - Vital Signs Vital signs: Vital Signs Temp 103.1 F H 03/06/19 08:17 Pulse 164 H 03/06/19 08:17 Resp 22 03/06/19 08:17 BP 100/67 03/06/19 08:17 Pulse Ox 90 L 03/06/19 08:17 Intake & Output 03/05/19 03/06/19 03/06/19 18:59 06:59 18:59 Intake Total 2545.917 700 Output Total 350 380 Balance 2195.917 320 Weight 94.1 kg Intake: Intake, IV Titration 2545.917 100 Amount Amino Acid 4.25%-D10w+ 1000 Lytes*E* 1,000 ml @ 95 mls/hr IV .BY DURATION [facility] Rx#:[id number] Ampicillin-Sulbactam 3 gm 100 100 In Sodium Chloride 0.9% 100 ml @ 200 mls/hr IVPB Q6HR [facility] Rx#:[id number] Dextrose 5%-0.45% NaCl 1, 0 000 ml @ 100 mls/hr IV . Q10H [facility] Rx#:[id number] Fat Emulsion 20% 250 ml @ 250 20.833 mls/hr IV HS [facility] Rx#:[id number] Mvi, Adult No.4 with Vit 995.917 K 10 ml Trace (Conc-1Ml/ Dose) 1 ml In Amino Acid 4.25%-D10w+Lytes*E* 1,000 ml @ 95 mls/hr IV .BY DURATION [facility] Rx#: [id number] Potassium Chloride 10 meq 200 In Water For Injection 1 100ml.bag @ 100 mls/hr IVPB Q1H [facility] Rx#: [id number] Oral 600 Output: Urine 350 380 Other: Voiding Method Urinal Urinal # Voids 1 - Exam General: Chronically ill-appearing, ill appearing, moderate distress, appears at stated age Derm: warm, diaphoretic Head: atraumatic, normocephalic, symmetric Eyes: EOMI, no lid lag, anicteric sclera Mouth: no lip lesion, mucus membranes dry Cardiovascular: S1S2 tachy, no murmur, positive posterior tibial pulse bilateral, Lungs: crackels bilateral bases , no accessory muscle use Abdominal: soft, tender to palpation diffusely, no guarding, no appreciable organomegaly, abd binder in place Ext: no gross muscle atrophy, 3+ edema, no contractures Neuro: CN II-XI grossly intact, moving all 4 extremities independently. Psych: lethargic and confused - Labs CBC & Chem 7: 03/06/19 08:45 03/06/19 08:45 Labs: Abnormal Lab Results - Last 24 Hours (Table) 03/05/19 03/05/19 03/05/19 Range/Units 11:51 16:55 20:47 WBC (3.8-10.6) k/uL RBC (4.30-5.90) m/uL Hgb (13.0-17.5) gm/dL Hct (39.0-53.0) % MCHC (31.0-37.0) g/dL RDW (11.5-15.5) % Plt Count (150-450) k/uL Neutrophils # (1.3-7.7) k/uL Monocytes # (0-1.0) k/uL ABG pH (7.35-7.45) ABG pCO2 (35-45) mmHg ABG pO2 (83-108) mmHg ABG Total CO2 (19-24) mmol/L ABG O2 Saturation (94-97) % BUN (9-20) mg/dL Creatinine (0.66-1.25) mg/dL Glucose (74-99) mg/dL POC Glucose (mg/dL) 289 H 269 H 178 H (75-99) mg/dL Plasma Lactic Acid Freddy (0.7-2.0) mmol/L Calcium (8.4-10.2) mg/dL Magnesium (1.6-2.3) mg/dL Alkaline Phosphatase (38-126) U/L Total Protein (6.3-8.2) g/dL Albumin (3.5-5.0) g/dL 03/06/19 03/06/19 03/06/19 Range/Units 06:52 07:01 07:01 WBC 33.1 H (3.8-10.6) k/uL RBC 3.37 L (4.30-5.90) m/uL Hgb 8.8 L (13.0-17.5) gm/dL Hct 28.2 L (39.0-53.0) % MCHC (31.0-37.0) g/dL RDW 19.0 H (11.5-15.5) % Plt Count 452 H (150-450) k/uL Neutrophils # (1.3-7.7) k/uL Monocytes # (0-1.0) k/uL ABG pH (7.35-7.45) ABG pCO2 (35-45) mmHg ABG pO2 (83-108) mmHg ABG Total CO2 (19-24) mmol/L ABG O2 Saturation (94-97) % BUN 33 H (9-20) mg/dL Creatinine 1.47 H (0.66-1.25) mg/dL Glucose 139 H (74-99) mg/dL POC Glucose (mg/dL) 147 H (75-99) mg/dL Plasma Lactic Acid Freddy (0.7-2.0) mmol/L Calcium 7.7 L (8.4-10.2) mg/dL Magnesium 1.5 L (1.6-2.3) mg/dL Alkaline Phosphatase 132 H (38-126) U/L Total Protein 5.6 L (6.3-8.2) g/dL Albumin 2.4 L (3.5-5.0) g/dL 03/06/19 03/06/19 03/06/19 Range/Units 08:23 08:45 08:45 WBC 29.7 H (3.8-10.6) k/uL RBC 3.39 L (4.30-5.90) m/uL Hgb 8.7 L (13.0-17.5) gm/dL Hct 28.6 L (39.0-53.0) % MCHC 30.4 L (31.0-37.0) g/dL RDW 18.8 H (11.5-15.5) % Plt Count (150-450) k/uL Neutrophils # 26.5 H (1.3-7.7) k/uL Monocytes # 1.1 H (0-1.0) k/uL ABG pH 7.49 H (7.35-7.45) ABG pCO2 33 L (35-45) mmHg ABG pO2 51 L* (83-108) mmHg ABG Total CO2 26 H (19-24) mmol/L ABG O2 Saturation 88.1 L (94-97) % BUN 34 H (9-20) mg/dL Creatinine 1.56 H (0.66-1.25) mg/dL Glucose 141 H (74-99) mg/dL POC Glucose (mg/dL) (75-99) mg/dL Plasma Lactic Acid Freddy (0.7-2.0) mmol/L Calcium 7.5 L (8.4-10.2) mg/dL Magnesium (1.6-2.3) mg/dL Alkaline Phosphatase (38-126) U/L Total Protein 5.2 L (6.3-8.2) g/dL Albumin 2.3 L (3.5-5.0) g/dL 03/06/19 Range/Units 08:45 WBC (3.8-10.6) k/uL RBC (4.30-5.90) m/uL Hgb (13.0-17.5) gm/dL Hct (39.0-53.0) % MCHC (31.0-37.0) g/dL RDW (11.5-15.5) % Plt Count (150-450) k/uL Neutrophils # (1.3-7.7) k/uL Monocytes # (0-1.0) k/uL ABG pH (7.35-7.45) ABG pCO2 (35-45) mmHg ABG pO2 (83-108) mmHg ABG Total CO2 (19-24) mmol/L ABG O2 Saturation (94-97) % BUN (9-20) mg/dL Creatinine (0.66-1.25) mg/dL Glucose (74-99) mg/dL POC Glucose (mg/dL) (75-99) mg/dL Plasma Lactic Acid Freddy 2.5 H* (0.7-2.0) mmol/L Calcium (8.4-10.2) mg/dL Magnesium (1.6-2.3) mg/dL Alkaline Phosphatase (38-126) U/L Total Protein (6.3-8.2) g/dL Albumin (3.5-5.0) g/dL Microbiology - Last 24 Hours (Table) 03/01/19 17:47 Blood Culture - Preliminary Blood No Growth after 96 hours Assessment and Plan Assessment: Sepsis- increasing WBC, tachy, and fevers - IVF - increase antibiotics to vanco and merrem - lactic acid - limit IVF slightly due to depressed EF - blood cultures, felt llikely due to abdominal source - ex lap today - transferred to ICU Acute toxic encephalopathy - treatment as above Acute hypoxic respiratory failure - Dr. Pope consulted - intubated in ICU A fib with RVR - Amio with recent hypotension and depressed EF - Consult cardio - hold anticoagulation with surgery today - on eliquis at baseline Lactic acidosis - IVF - repeat lactic acid Small bowel obstruction status post surgical intervention -Found have small bowel obstruction as well as acute ischemic enteritis - management per surgery - NPO currently - pain control - antiemetics - Dressing in place over midline -Antibiotics per ID currently on Unasyn, increased to merrem Recent group B strep bacteremia -Currently on Unasyn increased to merrem and vanco with worsening sepsis -ID following DM 2 with hyperglycemia - Insulin requiring - sliding scale - Levemir to 15 units - follow BS closely Adrenal insufficiency - IV cortef stat given with worsening sepsis, will continue today with need for surgery Obstructive sleep apnea -BiPAP at night once off vent COPD without exacerbation-chronic hypoxic respiratory failure with baseline 2 L nasal cannula -DuoNeb's 4 times daily -Pulmonary hygiene -Continue oxygen therapy HTN, controlled - continue home medications - follow blood pressures HLD - statin Compensated systolic congestive heart failure -Lasix on hold -Limit IV fluids -Lisinopril, metoprolol Chronic: Hypothyroidism Coronary artery disease Neuropathy Chronic anemia History of pancreatic neuroendocrine tumor DVT: SCDS as plan is for surgery today Transferred to ICU A total of 45 minutes of care spent on this patient Direct contact: Dr. Nichols, Dr. Kelley
[2019-03-06] MEDS ORDERED: VANCOMYCIN IV PER PHARMACY 1 EACH MISC MISCELLANE PRN (10:28)
--- NOTE | 2019-03-06 10:34 | CT ---
EXAMINATION TYPE: CT abdomen pelvis wo con DATE OF EXAM: 03/06/2019 COMPARISON: Prior CT 02/26/2019 HISTORY: Recent bowel resection. Pain, possible sepsis. CT DLP: 974.1 mGycm Automated exposure control for dose reduction was used. TECHNIQUE: Helical acquisition of images from the lung bases through the pelvis. FINDINGS: Lack of intravenous contrast may compromise sensitivity. LUNG BASES: Dependent atelectatic changes, possible pneumonia as there are air bronchograms present a t the posterior costophrenic angles have progressed in the interval. AORTA: No significant abnormality is appreciated. LIVER/GB: No significant interval change is appreciated. PANCREAS: No significant abnormality is seen. SPLEEN: No significant abnormality is seen. ADRENALS: No significant abnormality is seen. KIDNEYS: No significant abnormality is seen. REPRODUCTIVE ORGANS: No significant abnormality is seen. URINARY BLADDER: No significant abnormality is seen. BOWEL: There are multiple air-fluid levels, fluid-filled loops of bowel present. Within the right he miabdomen is difficult to discern underlying bowel loops, there are areas of free air adjacent to the abnormal soft tissue, there is some associated inflammatory change. Postop changes are also present to the colon. Stomach shows an air-fluid level. FREE AIR: There are punctate foci of free air noted deep to the rectus musculature on the right and along the right colon region, postop changes noted along the anterior abdominal wall. ASCITES: None visible. PELVIC ADENOPATHY: None visualized. RETROPERITONEAL ADENOPATHY: No Retroperitoneal Adenopathy visible. OSSEOUS STRUCTURES: No significant abnormality is seen. IMPRESSION: INDETERMINATE SOFT TISSUE MAY BE RELATED TO ABSCESS, DIFFICULT TO EXCLUDE BOWEL LEAK, NECROSIS AND IS CHEMIA, THERE IS LACK OF INTRAVENOUS CONTRAST. CASE DISCUSSED WITH REFERRING CLINICIAN AT THE TIME OF PERFORMANCE OF THE EXAM.
[2019-03-06] MEDS: PROPOFOL 1,000 MG in EMPTY BAG 1 BAG IV SCH ×3 (10:35→21:28)
[2019-03-06] MEDS ORDERED: SODIUM CHLORIDE 0.9% 1,000 ML IV ONE ×3 (10:36→12:21)
[2019-03-06] MEDS: NOREPINEPHRINE 4 MG in SODIUM CHLORIDE 0.9% 250 ML IV SCH ×2 (10:49→13:30)
--- NOTE | 2019-03-06 10:49 | P.PN ---
Progress Note - Text Progress Note Date: 03/06/19 The patient had a clinical change this a.m. Patient was hypotensive tachycardic and dyspneic. Patient's white count jumped from 11,000-33,000. Stat CAT scan of the abdomen was performed. There is a possible fluid collection or abscess in the right abdomen. Patient was transferred the ICU for resuscitation. He was intubated. I discussed with the patient's Corinna the need for urgent exploratory laparotomy. I discussed through that if concerned that he may have an anastomotic leak. The patient will be taken to the operating room later this morning.
[2019-03-06 10:55] LABS: ABG Base Excess -4.8 mmol/L; ABG HCO3 21 mmol/L (21-25); ABG Oxygen Saturation 99.3 % (94-97); ABG PCO2 38 mmHg (35-45); ABG PH 7.35 (7.35-7.45); ABG PO2 155 mmHg (83-108); ABG TCO2 22 mmol/L (19-24)
[2019-03-06] MEDS ORDERED: ALBUMIN HUMAN 5% (12.5gm) 250 ML BOTTLE IVPB ONE (10:55)
[2019-03-06] MEDS ORDERED: ROCURONIUM BROMIDE 10 MG/ML 10 ML VIAL IV ONE (10:55)
[2019-03-06] MEDS ORDERED: fentaNYL (PF) 50 MCG/ML 2 ML AMP ONE (10:55)
[2019-03-06] MEDS ORDERED: MIDAZOLAM 2 MG/2 ML VIAL ONE (10:55)
[2019-03-06 10:57] LABS: Allen Test Performed? no
[2019-03-06] MEDS ORDERED: VANCOMYCIN 1,750 MG in SODIUM CHLORIDE 0.9% 500 ML 500 ML IVPB SCH (11:00)
[2019-03-06 11:51] LABS: Appearance,Urine Clear (Clear); Bilirubin,Urine Negative (Negative); Blood,Urine Negative (Negative); Color,Urine Yellow; Glucose,Urine (UA) Trace (Negative); Ketones,Urine Negative (Negative); Leukocyte Esterase,Urine Negative (Negative); Nitrite,Urine Negative (Negative); Protein,Urine Trace (Negative); Specific Gravity,Urine 1.015 (1.001-1.035); Urobilinogen,Urine <2.0 mg/dL (<2.0)
--- NOTE | 2019-03-06 12:10 | XR ---
EXAMINATION TYPE: XR chest 1V confirm line [facility] DATE OF EXAM: 03/06/2019 COMPARISON: 03/01/2019 HISTORY: Endotracheal tube placement TECHNIQUE: Single frontal view of the chest is obtained. FINDINGS: Endotracheal tube is satisfactorily placed approximately 3.5 cm from the trena at the lev el of aortic arch. Enteric tube has its fenestrated portion just above the gastroesophageal junction and could be advanced approximately 5 cm for optimal placement. Strand-like left basilar atelectasis is similar. No new focal consolidation, pleural effusion or pneumothorax. Post CABG changes are seen in the chest with stable cardiomediastinal silhouette. Surgical cervical fusion device is partially v isualized. IMPRESSION: 1. Appropriately placed endotracheal tube. Enteric tube could be advanced approximately 5 cm for opti mal placement. 2. Strand-like left basilar subsegmental atelectasis.
--- NOTE | 2019-03-06 12:32 | P.OP ---
Date of Procedure: 03/06/19 Preoperative Diagnosis: Sepsis Postoperative Diagnosis: Aspiration pneumonia Drainage of intraperitoneal seroma/hematoma No evidence of bowel perforation Procedure(s) Performed: Exploratory laparotomy Drainage of intra-abdominal seroma/hematoma Anesthesia: REX Surgeon: Dashawn Nichols Estimated Blood Loss (ml): 50 Pathology: other (culture) Description of Procedure: The patient was placed on the operating table in the supine position. He received general anesthesia. The patient had been previously intubated in the ICU. The METAL FURNITURE [employer]SEMBLY SUPERVISOR had commented the patient had a large amount of bilious fluid in his throat and trachea. His sol removed. The patient had a small superficial wound infection. The abdomen was prepped and draped usual sterile fashion. The fascial stitch was cut and the abdominal wall was opened. A Bookwalter placed a wound. There appeared to be evidence of an ileus. The small bowel was dilated. The abdominal wall was retracted. And in the right side of the abdominal cavity there was a seroma/hematoma. This was aspirated. There is no pus seen in the abdominal cavity. There is no evidence of any enteric contents in the abdominal cavity. The patient had a previous right colectomy. The ileocolonic anastomosis visualized. There is no evidence of any leak at the anastomosis. At this point the abdominal cavity was irrigated. 3 L of normal saline were used to irrigate the abdominal cavity. A TATE drain was placed into the right paracolic gutter and brought through separate stab inc ision. The fascia was closed with looped #1 PDS suture. 2 sutures were used to close the fascia. The skin was left open and the wound was packed with wet-to-dry Kerlix. Patient sent back to the ICU in stable condition.
[2019-03-06 12:58] LABS: Glucose,Whole Blood 243 mg/dL (75-99)
[2019-03-06] MEDS: MAGNESIUM SULFATE-D5W PMX 1 GM in DEXTROSE/WATER 1 100ML.BAG IVPB SCH ×2 (13:30→15:32)
[2019-03-06] MEDS ORDERED: CISATRACURIUM 2 MG/ML 5 ML VIAL IV ONE (14:00)
--- NOTE | 2019-03-06 14:28 | XR ---
EXAMINATION TYPE: XR chest 1V portable DATE OF EXAM: 03/06/2019 COMPARISON: 03/06/2019 HISTORY: Hypoxemia TECHNIQUE: Single frontal view of the chest is obtained. FINDINGS: Short-term interval development of multifocal alveolar opacities are central predominant w ith sparing of the peripheral lungs. Enteric tube appears coiled in the distal esophagus and should b e replaced. Endotracheal tube is appropriately placed. Partial visualization of a cervical fusion dev ice. Cardiomediastinal silhouette is stable with post CABG changes. IMPRESSION: 1. Short-term interval development of numerous multifocal alveolar opacities concerning for flash pul monary edema, pulmonary hemorrhage, or ARDS. 2. Enteric tube is coiled in the distal esophagus and should be replaced.
--- NOTE | 2019-03-06 14:31 | P.CNPUL ---
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 1.47 H Glucose 139 H POC Glucose (mg/dL) Plasma Lactic Acid Freddy Calcium 7.7 L Phosphorus Magnesium 1.5 L Alkaline Phosphatase 132 H Troponin I Total Protein 5.6 L Albumin 2.4 L Triglycerides Urine Protein Urine Glucose (UA) Urine Ketones Urine Blood Urine Bacteria Crossmatch 03/06/19 03/06/19 03/06/19 08:45 08:45 08:45 WBC RBC Hgb Hct MCH MCHC RDW Plt Count Neutrophils # Lymphocytes # Lymphocytes # (Manual) Monocytes # ABG pH ABG pCO2 ABG pO2 ABG Total CO2 ABG O2 Saturation Sodium Potassium Chloride Carbon Dioxide BUN 34 H Creatinine 1.56 H Glucose 141 H POC Glucose (mg/dL) Plasma Lactic Acid Freddy 2.5 H* Calcium 7.5 L Phosphorus Magnesium Alkaline Phosphatase Troponin I 0.149 H* Total Protein 5.2 L Albumin 2.3 L Triglycerides Urine Protein Urine Glucose (UA) Urine Ketones Urine Blood Urine Bacteria Crossmatch 03/06/19 03/06/19 03/06/19 10:45 10:52 12:45 WBC RBC Hgb Hct MCH MCHC RDW Plt Count Neutrophils # Lymphocytes # Lymphocytes # (Manual) Monocytes # ABG pH ABG pCO2 ABG pO2 155 H ABG Total CO2 ABG O2 Saturation 99.3 H Sodium Potassium Chloride Carbon Dioxide BUN Creatinine Glucose POC Glucose (mg/dL) Plasma Lactic Acid Freddy 4.2 H* Calcium Phosphorus Magnesium Alkaline Phosphatase Troponin I Total Protein Albumin Triglycerides Urine Protein Trace H Urine Glucose (UA) Trace H Urine Ketones Urine Blood Urine Bacteria Crossmatch 03/06/19 12:56 WBC RBC Hgb Hct MCH MCHC RDW Plt Count Neutrophils # Lymphocytes # Lymphocytes # (Manual) Monocytes # ABG pH ABG pCO2 ABG pO2 ABG Total CO2 ABG O2 Saturation Sodium Potassium Chloride Carbon Dioxide BUN Creatinine Glucose POC Glucose (mg/dL) 243 H Plasma Lactic Acid Freddy Calcium Phosphorus Magnesium Alkaline Phosphatase Troponin I Total Protein Albumin Triglycerides Urine Protein Urine Glucose (UA) Urine Ketones Urine Blood Urine Bacteria Crossmatch - Diagnostic Findings Additional studies: CT of the abdomen was reviewed and as noted in HPI. Chest x-ray post intubation showed adequate placement of the endotracheal tube, left basilar subsegmental atelectasis is noted. Follow-up chest x-ray post or was also ordered, showed significant worsening of the lungs bilaterally, diffuse consolidation and al veolar filling process noted in both lungs throughout. Clearly consistent with cardiogenic or noncardiogenic pulmonary edema/ARDS. Assessment and Plan Assessment: Impression: 1 acute hypoxic respiratory failure secondary to aspiration pneumonia, ARDS, possible abdominal sepsis. And septic shock 2 acute metabolic encephalopathy 3 atrial fibrillation with RVR 4 acute metabolic acidosis secondary to sepsis and septic shock 5 status post exploratory laparotomy and drainage of hematoma/seroma no clear- cut evidence of infection or perforation noted according to the surgeon on the case. 6 small bowel obstruction requiring surgical intervention 7 recent history of Streptococcus bacteremia treated and presently on Merrem and vancomycin. 8 history of adrenal insufficiency patient is presently on Cortef. 9 type 2 diabetes. 10 multiple comorbidities including COPD, obstructive sleep apnea, benign essential hypertension, hyperlipidemia, hypothyroidism, coronary artery disease, chronic anemia, history of pancreatic neuroendocrine tumor. Recommendation: Patient came back from the operating room, poorly oxygenating, significant worsening of the chest x-ray was noted. Patient will be kept on antibiotics, high FiO2, high PEEP, will definitely require paralysis, patient is extremely ill, and his prognosis is extremely poor. Family will be updated on his condition. Discussed his condition with multiple physicians on the case. Critical care time is 60 minutes, not to mention time spent on procedures. Patient had a central line and arterial line placement. Time with Patient: Greater than 30
[2019-03-06] MEDS: CISATRACURIUM 200 MG in SODIUM CHLORIDE 0.9% 180 ML IV SCH (15:23)
[2019-03-06] MEDS: NOREPINEPHRINE 32 MG in SODIUM CHLORIDE 0.9% 218 ML IV SCH (15:26)
[2019-03-06] MEDS: AMIODARONE 300 MG in DEXTROSE 5% IN WATER 250 ML IV SCH ×2 (16:36)
[2019-03-06] MEDS: HYDROCORTISONE SUCCINATE 100 MG/2 ML VIAL IV SCH (16:47)
[2019-03-06 17:11] LABS: ABG Base Excess -19.5 mmol/L; ABG HCO3 13 mmol/L (21-25); ABG Oxygen Saturation 83.4 % (94-97); ABG PCO2 65 mmHg (35-45); ABG PO2 74 mmHg (83-108); ABG TCO2 15 mmol/L (19-24)
[2019-03-06 17:13] LABS: ABG PH <7.00 (7.35-7.45); Allen Test Performed? no
[2019-03-06] MEDS ORDERED: FUROSEMIDE 10 MG/ML 10 ML VIAL IV STA (17:13)
[2019-03-06] MEDS ORDERED: SODIUM BICARB 8.4% 50 ML SYR (1 MEQ/ML) IV STA ×4 (17:22→22:33)
[2019-03-06 17:36] LABS: Total Bilirubin 1.6 mg/dL (0.2-1.3); Total Protein 4.5 g/dL (6.3-8.2)
[2019-03-06 17:38] LABS: Calcium 6.4 mg/dL (8.4-10.2)
[2019-03-06] MEDS: DEXTROSE 5% IN WATER 1,000 ML with SODIUM BICARB (1 MEQ/ML) 150 ML IV SCH (17:44)
[2019-03-06] MEDS ORDERED: INSULIN REGULAR 100 UNIT/ML VIAL IV ONE (17:59)
[2019-03-06] MEDS ORDERED: DEXTROSE 50% SYRINGE 50 ML IVP STA (17:59)
[2019-03-06] MEDS ORDERED: CALCIUM GLUCONATE 1 GM in SODIUM CHLORIDE 0.9% 100 ML IVPB ONE ×2 (18:00→21:55)
[2019-03-06 18:31] LABS: Glucose,Whole Blood 135 mg/dL (75-99)
[2019-03-06 18:31] LABS: ABG Base Excess -18.3 mmol/L; ABG HCO3 13 mmol/L (21-25); ABG Oxygen Saturation 85.9 % (94-97); ABG PCO2 58 mmHg (35-45); ABG PO2 73 mmHg (83-108); ABG TCO2 15 mmol/L (19-24)
[2019-03-06 18:33] LABS: ABG PH <7.00 (7.35-7.45); Allen Test Performed? no
[2019-03-06 19:28] LABS: Ionized Calcium 3.8 mg/dL (4.5-5.3)
--- NOTE | 2019-03-06 19:30 | XR ---
EXAMINATION TYPE: XR chest 1V portable DATE OF EXAM: 03/06/2019 COMPARISON: Today HISTORY: Pneumonia TECHNIQUE: Single frontal view of the chest is obtained. FINDINGS: There is patchy bilateral airspace consolidation. There are chest leads. There is endotrac heal tube with the tip 2.5 cm from the trena. There is nasogastric tube. There is cervical spine fus ion surgery. IMPRESSION: There is moderate pulmonary alveolar edema unchanged. This could relate to RDS.
[2019-03-06 19:45] LABS: ABG Base Excess -14.2 mmol/L; ABG HCO3 16 mmol/L (21-25); ABG Oxygen Saturation 87.7 % (94-97); ABG PCO2 59 mmHg (35-45); ABG PO2 69 mmHg (83-108); ABG TCO2 18 mmol/L (19-24); Allen Test Performed? Yes
[2019-03-06 19:47] LABS: ABG PH 7.05 (7.35-7.45)
[2019-03-06] MEDS ORDERED: IPRATROPIUM-ALBUTEROL 3 ML NEB INHALATION PRN (20:13)
[2019-03-06 20:26] LABS: Potassium 4.5 mmol/L (3.5-5.1)
[2019-03-06 20:39] LABS: Calcium 6.2 mg/dL (8.4-10.2); Phosphorus 9.3 mg/dL (2.5-4.5)
[2019-03-06] MEDS: INSULIN DETEMIR (LEVEMIR) 100 UNIT/ML SYR SQ SCH (20:47)
[2019-03-06] MEDS: LEVOTHYROXINE 50 MCG TAB PO SCH (20:51)
[2019-03-06] MEDS: MONTELUKAST 10 MG TAB PO SCH (20:52)
[2019-03-06] MEDS: CHLORHEXIDINE GLUCONATE 15 ML CUP MUCOUS MEM SCH (21:09)
[2019-03-06] MEDS: MEROPENEM 1 GM in SODIUM CHLORIDE 0.9% 100 ML IVPB SCH (21:10)
[2019-03-06] MEDS: SODIUM CHLORIDE 0.9% 150 ML with VASOPRESSIN 60 UNIT IV SCH ×2 (21:48)
[2019-03-06 22:23] LABS: ABG Base Excess -13.8 mmol/L; ABG HCO3 16 mmol/L (21-25); ABG Oxygen Saturation 92.6 % (94-97); ABG PCO2 51 mmHg (35-45); ABG PO2 77 mmHg (83-108); ABG TCO2 17 mmol/L (19-24); Allen Test Performed? Yes
--- NOTE | 2019-03-06 23:34 | P.PN ---
Subjective Progress Note Date: 03/06/19 58-year-old male well-known to the infectious disease service presents to hospital with progressive abdominal pain. He has been followed in the outpatient setting after his recent hospitalization where group B strep bacteremia was nearly completing his course of intravenous antibiotic therapy when he presented to hospital with the progressive abdominal pain. On 02/27 was taken to the operating room because of his progressive abdominal pain and abnormalities seen on imaging studies and a significant small bowel obstruction was seen due to adhesions. There is also significant fecal stasis into the r ight colon with ischemic changes. Tonsillar the right colectomy was performed as well as the small bowel resection. The patient is not a postoperative and is having significant abdominal pain. The epidural catheter is lodged in is now on intravenous pain medications only. He is awake and alert and conversational. Other than his pain he seems to be improving. He is denying respiratory complai nts she is not having cough or sputum production he does not have nausea NG tube in place. His chronic musculoskeletal pains are without acute change. He is currently without fever or chills. 03/01/2019 is in less pain today, the epidural that did not function well is now out for a day and other pain control is working. No fever of chills, no flatus. 03/02/2019 still has significant amounts of pain relates with the current pain medication is more comfortable than prior. 03/03/2019 patient still in pain and still has an NG in place with large amounts of output continues to have the ongoing abdominal pain but is not having shortness of breath. 03/04/2019 patient's feeling better. NG tube has been removed. he's had some clear liquids and is tolerating that well. Less short of breath mouth is less tender abdominal pain improved. No fever or chills. 03/06/2019 patient's status has changed. He had markedly increasing amounts of abdominal pain computed tomography scan was abnormal in consultation was taken to the operative room for expiratory laparotomy. A large amount of serous been trying was found but no necrotic bowel, the anastomosis was intact there is no evidence of any stool in the peritoneal cavity. The patient is partially open wound that is being treated with the saline gauze dressings. The patient remains on the ventilator at this point in time with respiratory failure. Is evidence of extensive volume overload and likely had gastric aspiration occurring as part of his respiratory failure when he was intubated. Objective - Vital Signs Vital signs: Vital Signs Temp 96.5 F L 03/06/19 20:00 Pulse 78 03/06/19 20:18 Resp 32 H 03/06/19 20:00 BP 96/25 03/06/19 18:30 Pulse Ox 94 L 03/06/19 20:00 Intake & Output 03/06/19 03/06/19 03/07/19 06:59 18:59 06:59 Intake Total 700 3950.188 149.875 Output Total 380 1303 100 Balance 320 2647.188 49.875 Weight 94.1 kg Intake: IV 3695 75 ACETAMINOPHEN IV (For NPO 100 ) 1,000 mg In Empty Bag 1 bag @ 400 mls/hr IVPB ONCE STA Rx#:[id number] Calcium Gluconate 1 gm In 100 Sodium Chloride 0.9% 100 ml @ 100 mls/hr IVPB ONCE ONE Rx#:[id number] Dextrose 5% in Water 1, 75 75 000 ml @ 75 mls/hr IV . [id number] [place] with Sodium Bicarb (1 Meq/ml) 150 ml Rx#:[id number] Dextrose 5% in Water 100 100 ml @ 618 mls/hr IV .Q10M ONE with Amiodarone 150 mg Rx#:[id number] Magnesium Sulfate-D5w Pmx 200 1 gm In Dextrose/Water 1 100ml.bag @ 100 mls/hr IVPB Q1H [facility] Rx#: [id number] Meropenem 1 gm In Sodium 100 Chloride 0.9% 100 ml @ 200 mls/hr IVPB Q12HR [facility] Rx#:[id number] Sodium Chloride 0.9% 1, 1000 000 ml @ 0 mls/hr IV .STK -MED ONE Rx#:[id number] Sodium Chloride 0.9% 1, 520 000 ml @ 75 mls/hr IV . [id number] [facility] Rx#:[id number] Sodium Chloride 0.9% 500 500 ml 500 ml @ 999 mls/hr IV .Q31M ONE Rx#:[id number] Vancomycin 1,750 mg In 500 Sodium Chloride 0.9% 500 ml 500 ml @ 167 mls/hr IVPB Q24HR@0800 [facility] Rx#: [id number] Intake, IV Titration 100 255.188 74.875 Amount Ampicillin-Sulbactam 3 gm 100 In Sodium Chloride 0.9% 100 ml @ 200 mls/hr IVPB Q6HR [place] Rx#:[id number] Mvi, Adult No.4 with Vit 0 K 10 ml Trace (Conc-1Ml/ Dose) 1 ml In Amino Acid 4.25%-D10w+Lytes*E* 1,000 ml @ 95 mls/hr IV .BY DURATION [place] Rx#: [id number] Norepinephrine 32 mg In 33.376 Sodium Chloride 0.9% 218 ml @ 0.05 MCG/KG/MIN 2. 205 mls/hr IV .Q24H [place] Rx#:[id number] Norepinephrine 4 mg In 150.578 Sodium Chloride 0.9% 250 ml @ 0.05 MCG/KG/MIN 17. 926 mls/hr IV .[id number] [place] Rx#:[id number] Propofol 1,000 mg In 71.234 74.875 Empty Bag 1 bag @ Titrate IV .Q0M [place] Rx#: [id number] Oral 600 Output: Gastric Drainage 900 Drainage 125 100 Right Abdomen 125 100 Urine 380 228 0 Estimated Blood Loss 50 Other: Voiding Method Urinal Indwelling Catheter # Voids 1 ABP, PAP, CO, CI - Last Documented Arterial Blood Pressure 94/47 - Exam Patient is now intubated sedated and mechanically ventilated HEENT: Anicteric conjunctiva are pink and moist nasal mucosa grossly intact without significant lesions, there is no thrush. NG tube is removed oral cavity improved Neck: The neck is supple without significant lymphadenopathy or thyromegaly. Lungs: There is symmetrical bilateral air entry however some coarse crackles are scattered no connor bronchial sounds. Heart: Regular rate and rhythm with an audible S1-S2, no S3 no S4. There is no significant murmur click or rub, PMI was nondisplaced. Abdomen: Patient is postoperative, no bowel sounds are noted dressing is in p lace Extremities: The upper extremities have excellent pulses they are symmetric, no significant petechiae or telangiectasia. No splinter hemorrhages were noted. Lower extremities have evidence of bilateral lower extremity edema left greater than right but no open ulcers are seen at this time Neuro: Sedated and mechanically ventilated patient has extensive generalized edema - Labs CBC & Chem 7: 03/06/19 08:45 03/06/19 19:14 Labs: Abnormal Lab Results - Last 24 Hours (Table) 03/06/19 03/06/19 03/06/19 Range/Units 06:52 07:01 07:01 WBC 33.1 H (3.8-10.6) k/uL RBC 3.37 L (4.30-5.90) m/uL Hgb 8.8 L (13.0-17.5) gm/dL Hct 28.2 L (39.0-53.0) % MCHC (31.0-37.0) g/dL RDW 19.0 H (11.5-15.5) % Plt Count 452 H (150-450) k/uL Neutrophils # (1.3-7.7) k/uL Monocytes # (0-1.0) k/uL ABG pH (7.35-7.45) ABG pCO2 (35-45) mmHg ABG pO2 (83-108) mmHg ABG HCO3 (21-25) mmol/L ABG Total CO2 (19-24) mmol/L ABG O2 Saturation (94-97) % Sodium (137-145) mmol/L Potassium (3.5-5.1) mmol/L Carbon Dioxide (22-30) mmol/L BUN 33 H (9-20) mg/dL Creatinine 1.47 H (0.66-1.25) mg/dL Glucose 139 H (74-99) mg/dL POC Glucose (mg/dL) 147 H (75-99) mg/dL Plasma Lactic Acid Freddy (0.7-2.0) mmol/L Calcium 7.7 L (8.4-10.2) mg/dL Ionized Calcium Harpal (4.5-5.3) mg/dL Phosphorus (2.5-4.5) mg/dL Magnesium 1.5 L (1.6-2.3) mg/dL Total Bilirubin (0.2-1.3) mg/dL AST (17-59) U/L ALT (21-72) U/L Alkaline Phosphatase 132 H (38-126) U/L Troponin I (0.000-0.034) ng/mL Total Protein 5.6 L (6.3-8.2) g/dL Albumin 2.4 L (3.5-5.0) g/dL Urine Protein (Negative) Urine Glucose (UA) (Negative) 03/06/19 03/06/19 03/06/19 Range/Units 08:23 08:45 08:45 WBC 29.7 H (3.8-10.6) k/uL RBC 3.39 L (4.30-5.90) m/uL Hgb 8.7 L (13.0-17.5) gm/dL Hct 28.6 L (39.0-53.0) % MCHC 30.4 L (31.0-37.0) g/dL RDW 18.8 H (11.5-15.5) % Plt Count (150-450) k/uL Neutrophils # 26.5 H (1.3-7.7) k/uL Monocytes # 1.1 H (0-1.0) k/uL ABG pH 7.49 H (7.35-7.45) ABG pCO2 33 L (35-45) mmHg ABG pO2 51 L* (83-108) mmHg ABG HCO3 (21-25) mmol/L ABG Total CO2 26 H (19-24) mmol/L ABG O2 Saturation 88.1 L (94-97) % Sodium (137-145) mmol/L Potassium (3.5-5.1) mmol/L Carbon Dioxide (22-30) mmol/L BUN 34 H (9-20) mg/dL Creatinine 1.56 H (0.66-1.25) mg/dL Glucose 141 H (74-99) mg/dL POC Glucose (mg/dL) (75-99) mg/dL Plasma Lactic Acid Freddy (0.7-2.0) mmol/L Calcium 7.5 L (8.4-10.2) mg/dL Ionized Calcium Harpal (4.5-5.3) mg/dL Phosphorus (2.5-4.5) mg/dL Magnesium (1.6-2.3) mg/dL Total Bilirubin (0.2-1.3) mg/dL AST (17-59) U/L ALT (21-72) U/L Alkaline Phosphatase (38-126) U/L Troponin I (0.000-0.034) ng/mL Total Protein 5.2 L (6.3-8.2) g/dL Albumin 2.3 L (3.5-5.0) g/dL Urine Protein (Negative) Urine Glucose (UA) (Negative) 03/06/19 03/06/19 03/06/19 Range/Units 08:45 08:45 10:45 WBC (3.8-10.6) k/uL RBC (4.30-5.90) m/uL Hgb (13.0-17.5) gm/dL Hct (39.0-53.0) % MCHC (31.0-37.0) g/dL RDW (11.5-15.5) % Plt Count (150-450) k/uL Neutrophils # (1.3-7.7) k/uL Monocytes # (0-1.0) k/uL ABG pH (7.35-7.45) ABG pCO2 (35-45) mmHg ABG pO2 (83-108) mmHg ABG HCO3 (21-25) mmol/L ABG Total CO2 (19-24) mmol/L ABG O2 Saturation (94-97) % Sodium (137-145) mmol/L Potassium (3.5-5.1) mmol/L Carbon Dioxide (22-30) mmol/L BUN (9-20) mg/dL Creatinine (0.66-1.25) mg/dL Glucose (74-99) mg/dL POC Glucose (mg/dL) (75-99) mg/dL Plasma Lactic Acid Freddy 2.5 H* (0.7-2.0) mmol/L Calcium (8.4-10.2) mg/dL Ionized Calcium Harpal (4.5-5.3) mg/dL Phosphorus (2.5-4.5) mg/dL Magnesium (1.6-2.3) mg/dL Total Bilirubin (0.2-1.3) mg/dL AST (17-59) U/L ALT (21-72) U/L Alkaline Phosphatase (38-126) U/L Troponin I 0.149 H* (0.000-0.034) ng/mL Total Protein (6.3-8.2) g/dL Albumin (3.5-5.0) g/dL Urine Protein Trace H (Negative) Urine Glucose (UA) Trace H (Negative) 03/06/19 03/06/19 03/06/19 Range/Units 10:52 12:45 12:56 WBC (3.8-10.6) k/uL RBC (4.30-5.90) m/uL Hgb (13.0-17.5) gm/dL Hct (39.0-53.0) % MCHC (31.0-37.0) g/dL RDW (11.5-15.5) % Plt Count (150-450) k/uL Neutrophils # (1.3-7.7) k/uL Monocytes # (0-1.0) k/uL ABG pH (7.35-7.45) ABG pCO2 (35-45) mmHg ABG pO2 155 H (83-108) mmHg ABG HCO3 (21-25) mmol/L ABG Total CO2 (19-24) mmol/L ABG O2 Saturation 99.3 H (94-97) % Sodium (137-145) mmol/L Potassium (3.5-5.1) mmol/L Carbon Dioxide (22-30) mmol/L BUN (9-20) mg/dL Creatinine (0.66-1.25) mg/dL Glucose (74-99) mg/dL POC Glucose (mg/dL) 243 H (75-99) mg/dL Plasma Lactic Acid Freddy 4.2 H* (0.7-2.0) mmol/L Calcium (8.4-10.2) mg/dL Ionized Calcium Harpal (4.5-5.3) mg/dL Phosphorus (2.5-4.5) mg/dL Magnesium (1.6-2.3) mg/dL Total Bilirubin (0.2-1.3) mg/dL AST (17-59) U/L ALT (21-72) U/L Alkaline Phosphatase (38-126) U/L Troponin I (0.000-0.034) ng/mL Total Protein (6.3-8.2) g/dL Albumin (3.5-5.0) g/dL Urine Protein (Negative) Urine Glucose (UA) (Negative) 03/06/19 03/06/19 03/06/19 Range/Units 16:00 17:09 17:15 WBC (3.8-10.6) k/uL RBC (4.30-5.90) m/uL Hgb (13.0-17.5) gm/dL Hct (39.0-53.0) % MCHC (31.0-37.0) g/dL RDW (11.5-15.5) % Plt Count (150-450) k/uL Neutrophils # (1.3-7.7) k/uL Monocytes # (0-1.0) k/uL ABG pH <7.00 L* (7.35-7.45) ABG pCO2 65 H (35-45) mmHg ABG pO2 74 L (83-108) mmHg ABG HCO3 13 L (21-25) mmol/L ABG Total CO2 15 L (19-24) mmol/L ABG O2 Saturation 83.4 L (94-97) % Sodium 136 L (137-145) mmol/L Potassium 6.0 H (3.5-5.1) mmol/L Carbon Dioxide 13 L (22-30) mmol/L BUN 31 H (9-20) mg/dL Creatinine 2.12 H (0.66-1.25) mg/dL Glucose 157 H (74-99) mg/dL POC Glucose (mg/dL) (75-99) mg/dL Plasma Lactic Acid Freddy (0.7-2.0) mmol/L Calcium 6.4 L* (8.4-10.2) mg/dL Ionized Calcium Harpal (4.5-5.3) mg/dL Phosphorus (2.5-4.5) mg/dL Magnesium (1.6-2.3) mg/dL Total Bilirubin 1.6 H (0.2-1.3) mg/dL AST 151 H (17-59) U/L ALT 74 H (21-72) U/L Alkaline Phosphatase 322 H (38-126) U/L Troponin I 0.117 H* (0.000-0.034) ng/mL Total Protein 4.5 L (6.3-8.2) g/dL Albumin 2.0 L (3.5-5.0) g/dL Urine Protein (Negative) Urine Glucose (UA) (Negative) 03/06/19 03/06/19 03/06/19 Range/Units 18:16 18:26 19:14 WBC (3.8-10.6) k/uL RBC (4.30-5.90) m/uL Hgb (13.0-17.5) gm/dL Hct (39.0-53.0) % MCHC (31.0-37.0) g/dL RDW (11.5-15.5) % Plt Count (150-450) k/uL Neutrophils # (1.3-7.7) k/uL Monocytes # (0-1.0) k/uL ABG pH <7.00 L* (7.35-7.45) ABG pCO2 58 H (35-45) mmHg ABG pO2 73 L (83-108) mmHg ABG HCO3 13 L (21-25) mmol/L ABG Total CO2 15 L (19-24) mmol/L ABG O2 Saturation 85.9 L (94-97) % Sodium (137-145) mmol/L Potassium (3.5-5.1) mmol/L Carbon Dioxide 17 L (22-30) mmol/L BUN 33 H (9-20) mg/dL Creatinine 2.17 H (0.66-1.25) mg/dL Glucose 197 H (74-99) mg/dL POC Glucose (mg/dL) 135 H (75-99) mg/dL Plasma Lactic Acid Freddy (0.7-2.0) mmol/L Calcium 6.2 L* (8.4-10.2) mg/dL Ionized Calcium Harpal 3.8 L (4.5-5.3) mg/dL Phosphorus 9.3 H* (2.5-4.5) mg/dL Magnesium (1.6-2.3) mg/dL Total Bilirubin (0.2-1.3) mg/dL AST (17-59) U/L ALT (21-72) U/L Alkaline Phosphatase (38-126) U/L Troponin I (0.000-0.034) ng/mL Total Protein (6.3-8.2) g/dL Albumin (3.5-5.0) g/dL Urine Protein (Negative) Urine Glucose (UA) (Negative) 03/06/19 03/06/19 Range/Units 19:40 22:18 WBC (3.8-10.6) k/uL RBC (4.30-5.90) m/uL Hgb (13.0-17.5) gm/dL Hct (39.0-53.0) % MCHC (31.0-37.0) g/dL RDW (11.5-15.5) % Plt Count (150-450) k/uL Neutrophils # (1.3-7.7) k/uL Monocytes # (0-1.0) k/uL ABG pH 7.05 L* 7.10 L* (7.35-7.45) ABG pCO2 59 H 51 H (35-45) mmHg ABG pO2 69 L 77 L (83-108) mmHg ABG HCO3 16 L 16 L (21-25) mmol/L ABG Total CO2 18 L 17 L (19-24) mmol/L ABG O2 Saturation 87.7 L 92.6 L (94-97) % Sodium (137-145) mmol/L Potassium (3.5-5.1) mmol/L Carbon Dioxide (22-30) mmol/L BUN (9-20) mg/dL Creatinine (0.66-1.25) mg/dL Glucose (74-99) mg/dL POC Glucose (mg/dL) (75-99) mg/dL Plasma Lactic Acid Freddy (0.7-2.0) mmol/L Calcium (8.4-10.2) mg/dL Ionized Calcium Harpal (4.5-5.3) mg/dL Phosphorus (2.5-4.5) mg/dL Magnesium (1.6-2.3) mg/dL Total Bilirubin (0.2-1.3) mg/dL AST (17-59) U/L ALT (21-72) U/L Alkaline Phosphatase (38-126) U/L Troponin I (0.000-0.034) ng/mL Total Protein (6.3-8.2) g/dL Albumin (3.5-5.0) g/dL Urine Protein (Negative) Urine Glucose (UA) (Negative) Microbiology - Last 24 Hours (Table) 03/01/19 17:47 Blood Culture - Preliminary Blood No Growth after 120 hours 03/06/19 12:08 Wound Culture - Preliminary Other - Other 03/06/19 12:08 Anaerobic Culture - Preliminary Other - Other 03/06/19 11:03 Sputum Culture - Preliminary Sputum Laboratory Results WBC 29.7 k/uL (3.8-10.6) H 03/06/19 08:45 RBC 3.39 m/uL (4.30-5.90) L 03/06/19 08:45 Hgb 8.7 gm/dL (13.0-17.5) L 03/06/19 08:45 Hct 28.6 % (39.0-53.0) L 03/06/19 08:45 MCV 84.5 fL (80.0-100.0) 03/06/19 08:45 MCH 25.7 pg (25.0-35.0) 03/06/19 08:45 MCHC 30.4 g/dL (31.0-37.0) L 03/06/19 08:45 RDW 18.8 % (11.5-15.5) H 03/06/19 08:45 Plt Count 426 k/uL (150-450) 03/06/19 08:45 Neutrophils % 89 % 03/06/19 08:45 Neutrophils % (Manual) 53 % 02/27/19 08:05 Band Neutrophils % 14 % 02/27/19 08:05 Lymphocytes % 5 % 03/06/19 08:45 Lymphocytes % (Manual) 18 % 02/27/19 08:05 Monocytes % 4 % 03/06/19 08:45 Monocytes % (Manual) 13 % 02/27/19 08:05 Eosinophils % 0 % 03/06/19 08:45 Eosinophils % (Manual) 4 % 02/27/19 08:05 Basophils % 0 % 03/06/19 08:45 Neutrophils # 26.5 k/uL (1.3-7.7) H 03/06/19 08:45 Neutrophils # (Manual) 2.10 k/uL (1.3-7.7) 02/27/19 08:05 Lymphocytes # 1.4 k/uL (1.0-4.8) 03/06/19 08:45 Lymphocytes # (Manual) 0.58 k/uL (1.0-4.8) L 02/27/19 08:05 Monocytes # 1.1 k/uL (0-1.0) H 03/06/19 08:45 Monocytes # (Manual) 0.42 k/uL (0-1.0) 02/27/19 08:05 Eosinophils # 0.1 k/uL (0-0.7) 03/06/19 08:45 Eosinophils # (Manual) 0.13 k/uL (0-0.7) 02/27/19 08:05 Basophils # 0.1 k/uL (0-0.2) 03/06/19 08:45 Nucleated RBCs 0 /100 WBC (0-0) 02/27/19 08:05 Manual Slide Review Performed 03/06/19 08:45 Toxic Granulation Present 03/06/19 08:45 Toxic Vacuolation Present 02/27/19 08:05 Large Platelets Present 03/06/19 08:45 Polychromasia Present 03/06/19 08:45 Hypochromasia Marked 03/06/19 08:45 Poikilocytosis Slight 03/06/19 08:45 Poikilocytosis (manual Present 02/27/19 08:05 Anisocytosis Slight 03/06/19 08:45 Microcytosis Slight 03/06/19 07:01 Target Cells Present 02/27/19 08:05 PT 9.7 sec (9.0-12.0) 02/28/19 10:05 INR 0.9 (<1.2) 02/28/19 10:05 APTT 26.1 sec (22.0-30.0) 02/28/19 10:05 Sample Site [facility]OS[facility] 03/06/19 22:18 ABG pH 7.10 (7.35-7.45) L* 03/06/19 22:18 ABG pCO2 51 mmHg (35-45) H 03/06/19 22:18 ABG pO2 77 mmHg (83-108) L 03/06/19 22:18 ABG HCO3 16 mmol/L (21-25) L 03/06/19 22:18 ABG Total CO2 17 mmol/L (19-24) L 03/06/19 22:18 ABG O2 Saturation 92.6 % (94-97) L 03/06/19 22:18 ABG Base Excess -13.8 mmol/L 03/06/19 22:18 Wilson Test Yes 03/06/19 22:18 FiO2 100 % 03/06/19 22:18 Sodium 141 mmol/L (137-145) 03/06/19 19:14 Potassium 4.5 mmol/L (3.5-5.1) 03/06/19 19:14 Chloride 104 mmol/L (98-107) 03/06/19 19:14 Carbon Dioxide 17 mmol/L (22-30) L 03/06/19 19:14 Anion Gap 20 mmol/L 03/06/19 19:14 BUN 33 mg/dL (9-20) H 03/06/19 19:14 Creatinine 2.17 mg/dL (0.66-1.25) H 03/06/19 19:14 Est GFR (CKD-EPI)AfAm 37 (>60 ml/min/1.73 sqM) 03/06/19 19:14 Est GFR (CKD-EPI)NonAf 32 (>60 ml/min/1.73 sqM) 03/06/19 19:14 Glucose 197 mg/dL (74-99) H 03/06/19 19:14 POC Glucose (mg/dL) 135 mg/dL (75-99) H 03/06/19 18:16 POC Glu Trap Puller ID Alma Herzog 03/06/19 18:16 Lactic Ac Sepsis Rflx Y 03/06/19 09:15 Plasma Lactic Acid Freddy 4.2 mmol/L (0.7-2.0) H* 03/06/19 12:45 Calcium 6.2 mg/dL (8.4-10.2) L* 03/06/19 19:14 Ionized Calcium Harpal 3.8 mg/dL (4.5-5.3) L 03/06/19 19:14 Phosphorus 9.3 mg/dL (2.5-4.5) H* 03/06/19 19:14 Magnesium 1.5 mg/dL (1.6-2.3) L 03/06/19 07:01 Total Bilirubin 1.6 mg/dL (0.2-1.3) H 03/06/19 17:15 AST 151 U/L (17-59) H 03/06/19 17:15 ALT 74 U/L (21-72) H 03/06/19 17:15 Alkaline Phosphatase 322 U/L (38-126) H 03/06/19 17:15 Troponin I 0.117 ng/mL (0.000-0.034) H* 03/06/19 16:00 Total Protein 4.5 g/dL (6.3-8.2) L 03/06/19 17:15 Albumin 2.0 g/dL (3.5-5.0) L 03/06/19 17:15 Triglycerides 213 mg/dL (<150) H 03/03/19 15:50 Amylase 107 U/L (30-110) 02/23/19 15:07 Lipase 235 U/L (23-300) 02/23/19 15:07 Urine Color Yellow 03/06/19 10:45 Urine Appearance Clear (Clear) 03/06/19 10:45 Urine pH 5.0 (5.0-8.0) 03/06/19 10:45 Ur Specific [place] 1.015 (1.001-1.035) 03/06/19 10:45 Urine Protein Trace (Negative) H 03/06/19 10:45 Urine Glucose (UA) Trace (Negative) H 03/06/19 10:45 Urine Ketones Negative (Negative) 03/06/19 10:45 Urine Blood Negative (Negative) 03/06/19 10:45 Urine Nitrite Negative (Negative) 03/06/19 10:45 Urine Bilirubin Negative (Negative) 03/06/19 10:45 Urine Urobilinogen <2.0 mg/dL (<2.0) 03/06/19 10:45 Ur Leukocyte Esterase Negative (Negative) 03/06/19 10:45 Urine RBC 1 /hpf (0-5) 03/02/19 05:30 Urine WBC 3 /hpf (0-5) 03/02/19 05:30 Urine Bacteria Rare /hpf (None) H 03/02/19 05:30 Blood Type O Negative 03/06/19 09:50 Blood Type Recheck No 03/06/19 09:50 Antibody Screen NEGATIVE 03/06/19 09:50 Crossmatch See Detail 02/28/19 10:05 Spec Expiration Date 03/09/2019 - 91403/06/19 09:50 Microbiology 03/01/19 17:47 Blood Blood Culture - Preliminary No Growth after 120 hours 03/06/19 12:08 Other - Other Wound Culture - Preliminary 03/06/19 12:08 Other - Other Anaerobic Culture - Preliminary 03/06/19 11:03 Sputum Sputum Culture - Preliminary 02/24/19 22:40 Blood Blood Culture - Final No Growth after 144 hours Assessment and Plan (1) Small bowel obstruction Narrative/Plan: 58-year-old male who has a history of multiple medical troubles was recently hospitalized with a bout of sepsis in group B streptococcus was isolated. He has been completing his course of intravenous antibiotic therapy with Rocephin at home has been having ongoing improvement. He however began to have abdominal pain that progressed and constantly presented to the emergency center. He then had multiple evaluations and was taken to the operating room yesterday for these particular pleurotomy and lysis of adhesions as well as the right hemicolectomy and small bowel resection. As noted the epidural catheter malfunctioned and he is now receiving intravenous pain medications. His adrenal insufficiency was being treated with intravenous steroids at this time. As far as a recent group B streptococcus bacteremia this appears to have resolved. However he does have evidence of the acute abdominal process with the obstruction. Based upon history, antimicrobial therapy will be transitioned to ampicillin sulbactam for now pending any further culture results. Anesthesia is working as pain control. Surgery is following NG tube is in plac and we'll try to initiate nutrition when possible. 03/01/2019 pain is better controlled and NG output is improved. Doing well with current ABX therapy. Continue Unasyn for now, is taken in some ice chips without nausea. Still has anemia despite tranfusion yesterday, planned again for today, may need further imaging if still has refractory anemia. culture negative so far. The treatment of the group B strep bacteremia has completed. 03/02/2019 patient is slightly improved. Tolerating antibiotic therapy with Unasyn well. His anemia is more stable and he is a bit more comfortable. Cultures will help determine the course of antibiotic therapy at discharge however likely a course of intravenous antibiotic therapy will be planned. 03/03/2019 patient continues to have NG tube in place. Continues with ongoing significant abdominal pain. Feels very poorly. But does feel better than admission. Continue with antibiotic therapy with Unasyn for treatment of the abdominal process and also had a recent group B streptococcal infection. Surger alberto is following and awaiting for resolution of the ileus so that NG tube can be removed. If he does not have rapid improvement may need alternative forms of feeding.hemoglobin improved at 8.2 today. 03/04/2019 NG tube removed and patient is more comfortable. Very pleased about some clear liquids that he is obtaining. Now feels better. Tolerating Unasyn well. Diet is advancing as he tolerates. As he improves we'll determine if he has a candidate for oral outpatient therapy. 03/06/2019 the patient is now in the intensive care unit intubated still mechanically ventilated after his exploratory laparotomy when there was finding of a lot of fluid but no necrosis. We will work toward weaning as possible. The patient over had a fever and 103.1 and certainly has ongoing evidence of sepsis. Antibiotic therapy was altered to meropenem and vancomycin pending further culture results. Current Visit: Yes Status: Acute Code(s): K56.609 - UNSP INTESTNL OBST, UNSP TO PARTIAL VERSUS COMPLETE OBST SNOMED Code(s): 249901165 (2) Sepsis due to group B Streptococcus Current Visit: Yes Status: Acute Code(s): A40.1 - SEPSIS DUE TO STREPTOCOCCUS, GROUP B SNOMED Code(s): 219674412 (3) COPD (chronic obstructive pulmonary disease) Current Visit: Yes Status: Acute Code(s): J44.9 - CHRONIC OBSTRUCTIVE PULMONARY DISEASE, UNSPECIFIED SNOMED Code(s): 53562588 (4) Lower extremity weakness Current Visit: Yes Status: Acute Code(s): R29.898 - OTH SYMPTOMS AND SIGNS INVOLVING THE MUSCULOSKELETAL SYSTEM SNOMED Code(s): 425250714
[2019-03-06 23:44] LABS: Glucose,Whole Blood 239 mg/dL (75-99)
[2019-03-07] MEDS: ARTIFICIAL TEARS-HYPROMELLOSE DROPS 15 ML BTL BOTH EYES SCH ×6 (00:16→21:33)
[2019-03-07] MEDS: HYDROCORTISONE SUCCINATE 100 MG/2 ML VIAL IV SCH ×3 (00:17→16:00)
[2019-03-07] MEDS: INSULIN ASPART (NovoLOG) 100 UNIT/ML VIAL SQ SCH ×2 (00:18→06:23)
--- NOTE | 2019-03-07 01:02 | PCN ---
PROCEDURE NOTE OPERATIVE REPORT: Placement of a right femoral triple-lumen catheter. PREOPERATIVE DIAGNOSIS: Acute respiratory failure secondary to abdominal sepsis. POSTOPERATIVE DIAGNOSIS: Acute respiratory failure secondary to abdominal sepsis. ANESTHESIA USED: 2 mL of 1% lidocaine. PROCEDURE DETAILS: The patient was placed in the supine position, the area was prepared in a sterile fashion and drapes were applied. The line had to be placed in an emergency situation since the patient had very poor peripheral IV access. Then, the area was locally anesthetized with lidocaine. Then the right femoral vein was easily cannulated, a guidewire was placed, and a triple-lumen catheter was inserted over the guidewire, and the guidewire was removed. The line was secured using 3.0 silk sutures, there was good blood flow in the 3 different ports of the triple-lumen catheter. The procedure was well tolerated. No evidence of any immediate complications. MMODL / IJN: [id number] /
--- NOTE | 2019-03-07 01:02 | PCN ---
PROCEDURE NOTE OPERATIVE REPORT: Placement of a left radial arterial line. PREOPERATIVE DIAGNOSES: 1. Acute respiratory failure. 2. Hypotension. 3. Abdominal sepsis. POSTOPERATIVE DIAGNOSES: 1. Acute respiratory failure. 2. Hypotension. 3. Abdominal sepsis. ANESTHESIA: None deployed. PROCEDURE DETAILS: Arterial line had to be placed in an emergency situation, no consent was obtained. Left wrist was prepared in a sterile fashion. The drapes were applied. The left radial artery was palpated by Doppler and it was easily cannulated. A guidewire was placed and then a Cook's catheter was inserted over the guidewire, the guidewire was removed. Good blood flow and good waveform were noted, no evidence of any immediate complication. The line was secured using 3.0 silk sutures. MMODL / IJN: [id number] /
[2019-03-07] MEDS: NOREPINEPHRINE 32 MG in SODIUM CHLORIDE 0.9% 218 ML IV SCH ×2 (03:36→15:42)
[2019-03-07] MEDS: PROPOFOL 1,000 MG in EMPTY BAG 1 BAG IV SCH ×3 (03:37→23:44)
[2019-03-07] MEDS: AMIODARONE 300 MG in DEXTROSE 5% IN WATER 250 ML IV SCH ×2 (03:38)
[2019-03-07] MEDS: DEXTROSE 5% IN WATER 1,000 ML with SODIUM BICARB (1 MEQ/ML) 150 ML IV SCH ×2 (03:41→11:31)
[2019-03-07 05:01] LABS: Anisocytosis Slight; HGB 7.3 gm/dL (13.0-17.5); Hypochromasia Marked; MCH 26.7 pg (25.0-35.0); MCHC 28.1 g/dL (31.0-37.0); Macrocytosis Slight; Mean Platelet Volume 10.9; Poikilocytosis Slight; RBC 2.74 m/uL (4.30-5.90); RDW 19.2 % (11.5-15.5)
[2019-03-07 05:02] LABS: MCV 94.9 fL (80.0-100.0); Platelet Count 178 k/uL (150-450)
[2019-03-07] MEDS: 1: AMINO ACID 4.25%-D10W+LYTES*E* 1,000 ML 2: MVI, ADULT NO.4 WITH VIT K 10 ML, TRACE ( IV SCH ×3 (05:20)
[2019-03-07 05:23] LABS: Band Neutrophils % 39 %; Lymphocytes # (M) 0.93 k/uL (1.0-4.8); Monocytes # (M) 0.93 k/uL (0-1.0); Myelocytes % 3 %; Neutrophils % (M) 54 %; Nucleated Red Blood Cells 3 /100 WBC (0-0); Total Cells Counted 200; WBC 46.7 k/uL (3.8-10.6)
[2019-03-07 05:24] LABS: Large Platelets Present; Polychromasia Present
[2019-03-07 05:30] LABS: Ionized Calcium 3.6 mg/dL (4.5-5.3)
[2019-03-07 05:38] LABS: Albumin 1.7 g/dL (3.5-5.0); Magnesium 2.1 mg/dL (1.6-2.3); Potassium 5.5 mmol/L (3.5-5.1); Total Bilirubin 2.4 mg/dL (0.2-1.3); Total Protein 3.8 g/dL (6.3-8.2)
[2019-03-07 05:47] LABS: Glucose,Whole Blood 405 mg/dL (75-99)
--- NOTE | 2019-03-07 06:12 | XR ---
EXAMINATION TYPE: XR chest 1V DATE OF EXAM: 03/07/2019 HISTORY: intubated. REFERENCE: Previous study dated 03/06/2019. FINDINGS: There has been a previous ADC half of the lower cervical spine. There has been a midline st ernotomy. The patient is ET tube and NG tube remain in place, unchanged in appearance. I cannot follow the NG t ube passes distal esophagus. There is continuing bilateral airspace disease. This is worsened slightly. Heart size upper limits of normal. No definite pleural fluid is seen. IMPRESSION: WORSENING BILATERAL AIRSPACE DISEASE.
[2019-03-07 06:26] LABS: Glucose,Whole Blood 418 mg/dL (75-99)
[2019-03-07 06:26] LABS: Glucose,Whole Blood 448 mg/dL (75-99)
[2019-03-07 06:31] LABS: Calcium 6.4 mg/dL (8.4-10.2); Phosphorus 12.6 mg/dL (2.5-4.5)
[2019-03-07] MEDS ORDERED: CALCIUM GLUCONATE 1 GM in SODIUM CHLORIDE 0.9% 100 ML IVPB ONE (06:59)
[2019-03-07] MEDS ORDERED: INSULIN REGULAR BOLUS (FROM DRIP BAG) IV PRN (06:59)
[2019-03-07 07:14] LABS: ABG Base Excess -21.3 mmol/L; ABG HCO3 11 mmol/L (21-25); ABG Oxygen Saturation 90.6 % (94-97); ABG PCO2 50 mmHg (35-45); ABG PO2 79 mmHg (83-108); ABG TCO2 12 mmol/L (19-24); Allen Test Performed? Yes
[2019-03-07 07:18] LABS: ABG PH <7.00 (7.35-7.45)
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
[2019-03-07] MEDS: BISACODYL 10 MG SUPP RECTAL SCH (08:42)
[2019-03-07] MEDS: DOCUSATE 100 MG CAP PO SCH ×2 (08:43→21:34)
[2019-03-07] MEDS: CHLORHEXIDINE GLUCONATE 15 ML CUP MUCOUS MEM SCH ×2 (08:52→21:55)
[2019-03-07] MEDS: PANTOPRAZOLE 40 MG/10 ML VIAL IVP SCH ×2 (08:52→21:55)
[2019-03-07] MEDS: MEROPENEM 1 GM in SODIUM CHLORIDE 0.9% 100 ML IVPB SCH ×2 (08:53→21:53)
[2019-03-07] MEDS: IPRATROPIUM-ALBUTEROL 3 ML NEB INHALATION SCH ×4 (09:05→19:20)
--- NOTE | 2019-03-07 09:21 | CONS ---
DATE OF CONSULTATION: 03/07/2019 The patient is a 58-year-old gentleman who came with small-bowel obstruction and went for bowel resection. The patient became hypertensive and patient has been intubated. I was consulted for placement of urgent dialysis catheter. The patient is oliguric. The patient had a CT scan of the abdomen which is consistent with abdominal abscess. The patient is on Levophed and vasopressin. PAST MEDICAL HISTORY: Of atrial fibrillation, coronary artery disease, heart failure, diabetes mellitus, hyperlipidemia, myocardial infarction, pneumonia and respiratory distress and sleep apnea. PHYSICAL EXAMINATION: The patient is on vent. Abdomen is some distended. Femorals are 1+. PLAN: Placement of the dialysis catheter. Risks and complications discussed. Thank you very much for the consultation. JUJU / AKANKSHA: [id number] / CHRISTY
--- NOTE | 2019-03-07 09:30 | CONS ---
CONSULTATION Benja Ribera is a 58-year-old gentleman a patient who sees Dr. Nam in the outpatient setting. He has history of aortocoronary bypass surgery, CAD, prior myocardial infarction. Ejection fraction is in the range of 45-50 percent. He came into the hospital with multiple issues, has been septic and was taken to the OR yesterday, became quite hypotensive. There was a question of some necrotic bowel. I was asked to see him because he went into atrial fib with a very rapid ventricular rate. The patient has been given amiodarone drip. He is in sinus rhythm this morning. He is on multiple drips in the form of vasopressin, Levophed for blood pressure support. Urine output is scanty. He is being considered for dialysis acutely. Poor prognosis overall with multiple comorbid conditions. He may have had a shock liver type situation with liver enzymes in over 10,000. Prognosis appears to be quite poor for this patient. Please refer to the detailed consultation by Dr. Sindi Mackay from February 11, 2019. To summarize, this patient has history of CAD, prior myocardial infarction, ejection fraction in the 40% range and has had previous bypass surgery, has paroxysmal atrial fib, diabetes, sleep apnea syndrome, and also has some immune compromise situation with recurrent pneumonias. His medications at home previously included Eliquis 5 mg b.i.d., Norvasc, Lasix, Lopressor, and insulin for diabetes. Please refer to the notes by Dr. Pope and other physicians on the case. PHYSICAL EXAMINATION: Blood pressure is about 112 on multiple drips. Heart rate is about 70, sinus. HEENT was not examined. Neck is supple. There is no JVD. S1-S2 heard normally. Short systolic murmur is audible. Lungs reveal diminished air entry assisted by the ventilator. Abdomen exam was deferred. Central nervous system exam was deferred. IMPRESSION: 1. Ischemic cardiomyopathy. 2. Sepsis with multiple surgeries and possible necrotic bowel. 3. Multi-system failure with shock liver type picture and the liver enzymes are quite abnormal. AST is over 14,000, ALT is over 4000. 4. History of paroxysmal atrial fibrillation, now in sinus rhythm. RECOMMENDATIONS: In view of his shock liver with liver enzymes in thousands, I am recommending we discontinue amiodarone IV for now. Patient is in sinus rhythm. Overall prognosis is quite poor for this gentleman with multiple comorbid conditions and shock liver type picture and also possibility of renal shutdown. No aggressive intervention is advised. From a cardiac standpoint, I explained to the that overall prognosis is poor, but I would stop amiodarone for now and patient is in sinus rhythm. Overall prognosis is poor with a very high risk for mortality. JUJU / AKANKSHA: [id number] /
[2019-03-07] MEDS: INSULIN REGULAR 100 UNIT in SODIUM CHLORIDE 0.9% 100 ML IV SCH ×6 (09:41→23:13)
[2019-03-07 09:46] LABS: Glucose,Whole Blood 501 mg/dL (75-99)
[2019-03-07] MEDS: 1: PARENTERAL ELECTROLYTES 20 ML in AMINO ACID 4.25%-D10W 1,000 ML 2: PARENTERAL ELECTR IV SCH ×8 (09:48→21:33)
--- NOTE | 2019-03-07 10:04 | P.PN ---
Subjective Progress Note Date: 03/07/19 Principal diagnosis: Small bowel obstruction Aspiration pneumonia The patient's clinical condition has worsened since yesterday. He is requiring high dose pressor support. He's got into multisystem organ failure. Objective - Vital Signs Vital signs: Vital Signs Temp 98.3 F 03/07/19 00:00 Pulse 67 03/07/19 07:00 Resp 34 H 03/07/19 07:00 BP 96/25 03/06/19 18:30 Pulse Ox 87 L 03/07/19 07:00 Intake & Output 03/06/19 03/07/19 03/07/19 18:59 06:59 18:59 Intake Total 3950.188 4044.174 271 Output Total 1303 496 0 Balance 2647.188 3548.174 271 Weight 94.1 kg 107 kg Intake: IV 3695 3486 271 ACETAMINOPHEN IV (For NPO 100 ) 1,000 mg In Empty Bag 1 bag @ 400 mls/hr IVPB ONCE STA Rx#:[id number] Calcium Gluconate 1 gm In 100 Sodium Chloride 0.9% 100 ml @ 100 mls/hr IVPB ONCE ONE Rx#:[id number] Calcium Gluconate 1 gm In 100 Sodium Chloride 0.9% 100 ml @ 100 mls/hr IVPB ONCE ONE Rx#:[id number] Dextrose 5% in Water 1, 75 1575 150 000 ml @ 150 mls/hr IV . Q7H40M [place] with Sodium Bicarb (1 Meq/ml) 150 ml Rx#:[id number] Dextrose 5% in Water 100 100 ml @ 618 mls/hr IV .Q10M ONE with Amiodarone 150 mg Rx#:[id number] Magnesium Sulfate-D5w Pmx 200 1 gm In Dextrose/Water 1 100ml.bag @ 100 mls/hr IVPB Q1H [facility] Rx#: [id number] Meropenem 1 gm In Sodium 100 100 Chloride 0.9% 100 ml @ 200 mls/hr IVPB Q12HR [facility] Rx#:[id number] Mvi, Adult No.4 with Vit 1045 95 K 10 ml Trace (Conc-1Ml/ Dose) 1 ml In Amino Acid 4.25%-D10w+Lytes*E* 1,000 ml @ 95 mls/hr IV .BY DURATION [facility] Rx#: [id number] Pressure Bags 66 6 Sodium Bicarbonate 250 Sodium Chloride 0.9% 1, 1000 000 ml @ 0 mls/hr IV .STK -MED ONE Rx#:[id number] Sodium Chloride 0.9% 1, 520 000 ml @ 75 mls/hr IV . [id number] [facility] Rx#:[id number] Sodium Chloride 0.9% 500 500 ml 500 ml @ 999 mls/hr IV .Q31M ONE Rx#:[id number] Sodium Chloride 0.9% @ 20 220 20 ml/hr Sodium Chloride 0.9% 130 flush Vancomycin 1,750 mg In 500 Sodium Chloride 0.9% 500 ml 500 ml @ 167 mls/hr IVPB Q24HR@0800 [facility] Rx#: [id number] Intake, IV Titration 255.188 558.174 Amount Amiodarone 300 mg In 250 Dextrose 5% in Water 250 ml @ 0.5 MG/MIN 25 mls/hr IV .Q10H [facility] Rx#: [id number] Mvi, Adult No.4 with Vit 0 K 10 ml Trace (Conc-1Ml/ Dose) 1 ml In Amino Acid 4.25%-D10w+Lytes*E* 1,000 ml @ 95 mls/hr IV .BY DURATION [facility] Rx#: [id number] Norepinephrine 32 mg In 33.376 146.492 Sodium Chloride 0.9% 218 ml @ 0.05 MCG/KG/MIN 2. 205 mls/hr IV .Q24H [facility] Rx#:[id number] Norepinephrine 4 mg In 150.578 Sodium Chloride 0.9% 250 ml @ 0.05 MCG/KG/MIN 17. 926 mls/hr IV .[id number] [facility] Rx#:[id number] Propofol 1,000 mg In 71.234 161.682 Empty Bag 1 bag @ Titrate IV .Q0M [facility] Rx#: [id number] Output: Gastric Drainage 900 90 Drainage 125 340 Right Abdomen 125 340 Urine 228 66 0 Estimated Blood Loss 50 Other: Voiding Method Indwelling Catheter Indwelling Catheter ABP, PAP, CO, CI - Last Documented Arterial Blood Pressure 112/52 - Gastrointestinal Gastrointestinal Comment(s): Abdomen soft, distended. Wound is clean. - Labs CBC & Chem 7: 03/07/19 04:45 03/07/19 04:45 Labs: Abnormal Lab Results - Last 24 Hours (Table) 06/21/19 06/21/19 06/21/19 Range/Units 08:45 10:45 10:52 WBC (3.8-10.6) k/uL RBC (4.30-5.90) m/uL Hgb (13.0-17.5) gm/dL Hct (39.0-53.0) % MCHC (31.0-37.0) g/dL RDW (11.5-15.5) % Neutrophils # (Manual) (1.3-7.7) k/uL Lymphocytes # (Manual) (1.0-4.8) k/uL Myelocytes # (Manual) (0) k/uL Nucleated RBCs (0-0) /100 WBC ABG pH (7.35-7.45) ABG pCO2 (35-45) mmHg ABG pO2 155 H (83-108) mmHg ABG HCO3 (21-25) mmol/L ABG Total CO2 (19-24) mmol/L ABG O2 Saturation 99.3 H (94-97) % Sodium (137-145) mmol/L Potassium (3.5-5.1) mmol/L Carbon Dioxide (22-30) mmol/L BUN (9-20) mg/dL Creatinine (0.66-1.25) mg/dL Glucose (74-99) mg/dL POC Glucose (mg/dL) (75-99) mg/dL Plasma Lactic Acid Freddy (0.7-2.0) mmol/L Calcium (8.4-10.2) mg/dL Ionized Calcium Harpal (4.5-5.3) mg/dL Phosphorus (2.5-4.5) mg/dL Total Bilirubin (0.2-1.3) mg/dL AST (17-59) U/L ALT (21-72) U/L Alkaline Phosphatase (38-126) U/L Troponin I 0.149 H* (0.000-0.034) ng/mL Total Protein (6.3-8.2) g/dL Albumin (3.5-5.0) g/dL Urine Protein Trace H (Negative) Urine Glucose (UA) Trace H (Negative) 03/06/19 03/06/19 03/06/19 Range/Units 12:45 12:56 16:00 WBC (3.8-10.6) k/uL RBC (4.30-5.90) m/uL Hgb (13.0-17.5) gm/dL Hct (39.0-53.0) % MCHC (31.0-37.0) g/dL RDW (11.5-15.5) % Neutrophils # (Manual) (1.3-7.7) k/uL Lymphocytes # (Manual) (1.0-4.8) k/uL Myelocytes # (Manual) (0) k/uL Nucleated RBCs (0-0) /100 WBC ABG pH (7.35-7.45) ABG pCO2 (35-45) mmHg ABG pO2 (83-108) mmHg ABG HCO3 (21-25) mmol/L ABG Total CO2 (19-24) mmol/L ABG O2 Saturation (94-97) % Sodium (137-145) mmol/L Potassium (3.5-5.1) mmol/L Carbon Dioxide (22-30) mmol/L BUN (9-20) mg/dL Creatinine (0.66-1.25) mg/dL Glucose (74-99) mg/dL POC Glucose (mg/dL) 243 H (75-99) mg/dL Plasma Lactic Acid Freddy 4.2 H* (0.7-2.0) mmol/L Calcium (8.4-10.2) mg/dL Ionized Calcium Harpal (4.5-5.3) mg/dL Phosphorus (2.5-4.5) mg/dL Total Bilirubin (0.2-1.3) mg/dL AST (17-59) U/L ALT (21-72) U/L Alkaline Phosphatase (38-126) U/L Troponin I 0.117 H* (0.000-0.034) ng/mL Total Protein (6.3-8.2) g/dL Albumin (3.5-5.0) g/dL Urine Protein (Negative) Urine Glucose (UA) (Negative) 03/06/19 03/06/19 03/06/19 Range/Units 17:09 17:15 18:16 WBC (3.8-10.6) k/uL RBC (4.30-5.90) m/uL Hgb (13.0-17.5) gm/dL Hct (39.0-53.0) % MCHC (31.0-37.0) g/dL RDW (11.5-15.5) % Neutrophils # (Manual) (1.3-7.7) k/uL Lymphocytes # (Manual) (1.0-4.8) k/uL Myelocytes # (Manual) (0) k/uL Nucleated RBCs (0-0) /100 WBC ABG pH <7.00 L* (7.35-7.45) ABG pCO2 65 H (35-45) mmHg ABG pO2 74 L (83-108) mmHg ABG HCO3 13 L (21-25) mmol/L ABG Total CO2 15 L (19-24) mmol/L ABG O2 Saturation 83.4 L (94-97) % Sodium 136 L (137-145) mmol/L Potassium 6.0 H (3.5-5.1) mmol/L Carbon Dioxide 13 L (22-30) mmol/L BUN 31 H (9-20) mg/dL Creatinine 2.12 H (0.66-1.25) mg/dL Glucose 157 H (74-99) mg/dL POC Glucose (mg/dL) 135 H (75-99) mg/dL Plasma Lactic Acid Freddy (0.7-2.0) mmol/L Calcium 6.4 L* (8.4-10.2) mg/dL Ionized Calcium Harpal (4.5-5.3) mg/dL Phosphorus (2.5-4.5) mg/dL Total Bilirubin 1.6 H (0.2-1.3) mg/dL AST 151 H (17-59) U/L ALT 74 H (21-72) U/L Alkaline Phosphatase 322 H (38-126) U/L Troponin I (0.000-0.034) ng/mL Total Protein 4.5 L (6.3-8.2) g/dL Albumin 2.0 L (3.5-5.0) g/dL Urine Protein (Negative) Urine Glucose (UA) (Negative) 03/06/19 03/06/19 03/06/19 Range/Units 18:26 19:14 19:40 WBC (3.8-10.6) k/uL RBC (4.30-5.90) m/uL Hgb (13.0-17.5) gm/dL Hct (39.0-53.0) % MCHC (31.0-37.0) g/dL RDW (11.5-15.5) % Neutrophils # (Manual) (1.3-7.7) k/uL Lymphocytes # (Manual) (1.0-4.8) k/uL Myelocytes # (Manual) (0) k/uL Nucleated RBCs (0-0) /100 WBC ABG pH <7.00 L* 7.05 L* (7.35-7.45) ABG pCO2 58 H 59 H (35-45) mmHg ABG pO2 73 L 69 L (83-108) mmHg ABG HCO3 13 L 16 L (21-25) mmol/L ABG Total CO2 15 L 18 L (19-24) mmol/L ABG O2 Saturation 85.9 L 87.7 L (94-97) % Sodium (137-145) mmol/L Potassium (3.5-5.1) mmol/L Carbon Dioxide 17 L (22-30) mmol/L BUN 33 H (9-20) mg/dL Creatinine 2.17 H (0.66-1.25) mg/dL Glucose 197 H (74-99) mg/dL POC Glucose (mg/dL) (75-99) mg/dL Plasma Lactic Acid Freddy (0.7-2.0) mmol/L Calcium 6.2 L* (8.4-10.2) mg/dL Ionized Calcium Harpal 3.8 L (4.5-5.3) mg/dL Phosphorus 9.3 H* (2.5-4.5) mg/dL Total Bilirubin (0.2-1.3) mg/dL AST (17-59) U/L ALT (21-72) U/L Alkaline Phosphatase (38-126) U/L Troponin I (0.000-0.034) ng/mL Total Protein (6.3-8.2) g/dL Albumin (3.5-5.0) g/dL Urine Protein (Negative) Urine Glucose (UA) (Negative) 03/06/19 03/06/19 03/07/19 Range/Units 22:18 23:40 04:45 WBC 46.7 H (3.8-10.6) k/uL RBC 2.74 L (4.30-5.90) m/uL Hgb 7.3 L (13.0-17.5) gm/dL Hct 26.0 L (39.0-53.0) % MCHC 28.1 L (31.0-37.0) g/dL RDW 19.2 H (11.5-15.5) % Neutrophils # (Manual) 43.40 H (1.3-7.7) k/uL Lymphocytes # (Manual) 0.93 L (1.0-4.8) k/uL Myelocytes # (Manual) 1.40 H (0) k/uL Nucleated RBCs 3 H (0-0) /100 WBC ABG pH 7.10 L* (7.35-7.45) ABG pCO2 51 H (35-45) mmHg ABG pO2 77 L (83-108) mmHg ABG HCO3 16 L (21-25) mmol/L ABG Total CO2 17 L (19-24) mmol/L ABG O2 Saturation 92.6 L (94-97) % Sodium (137-145) mmol/L Potassium (3.5-5.1) mmol/L Carbon Dioxide (22-30) mmol/L BUN (9-20) mg/dL Creatinine (0.66-1.25) mg/dL Glucose (74-99) mg/dL POC Glucose (mg/dL) 239 H (75-99) mg/dL Plasma Lactic Acid Freddy (0.7-2.0) mmol/L Calcium (8.4-10.2) mg/dL Ionized Calcium Harpal (4.5-5.3) mg/dL Phosphorus (2.5-4.5) mg/dL Total Bilirubin (0.2-1.3) mg/dL AST (17-59) U/L ALT (21-72) U/L Alkaline Phosphatase (38-126) U/L Troponin I (0.000-0.034) ng/mL Total Protein (6.3-8.2) g/dL Albumin (3.5-5.0) g/dL Urine Protein (Negative) Urine Glucose (UA) (Negative) 03/07/19 03/07/19 03/07/19 Range/Units 04:45 05:46 06:09 WBC (3.8-10.6) k/uL RBC (4.30-5.90) m/uL Hgb (13.0-17.5) gm/dL Hct (39.0-53.0) % MCHC (31.0-37.0) g/dL RDW (11.5-15.5) % Neutrophils # (Manual) (1.3-7.7) k/uL Lymphocytes # (Manual) (1.0-4.8) k/uL Myelocytes # (Manual) (0) k/uL Nucleated RBCs (0-0) /100 WBC ABG pH (7.35-7.45) ABG pCO2 (35-45) mmHg ABG pO2 (83-108) mmHg ABG HCO3 (21-25) mmol/L ABG Total CO2 (19-24) mmol/L ABG O2 Saturation (94-97) % Sodium (137-145) mmol/L Potassium 5.5 H (3.5-5.1) mmol/L Carbon Dioxide 15 L (22-30) mmol/L BUN 36 H (9-20) mg/dL Creatinine 2.70 H (0.66-1.25) mg/dL Glucose 380 H (74-99) mg/dL POC Glucose (mg/dL) 405 H 418 H (75-99) mg/dL Plasma Lactic Acid Freddy (0.7-2.0) mmol/L Calcium 6.4 L* (8.4-10.2) mg/dL Ionized Calcium Harpal 3.6 L (4.5-5.3) mg/dL Phosphorus 12.6 H* (2.5-4.5) mg/dL Total Bilirubin 2.4 H (0.2-1.3) mg/dL AST 92768 H (17-59) U/L ALT 4002 H (21-72) U/L Alkaline Phosphatase 140 H (38-126) U/L Troponin I (0.000-0.034) ng/mL Total Protein 3.8 L (6.3-8.2) g/dL Albumin 1.7 L (3.5-5.0) g/dL Urine Protein (Negative) Urine Glucose (UA) (Negative) 03/07/19 03/07/19 03/07/19 Range/Units 06:12 07:11 09:44 WBC (3.8-10.6) k/uL RBC (4.30-5.90) m/uL Hgb (13.0-17.5) gm/dL Hct (39.0-53.0) % MCHC (31.0-37.0) g/dL RDW (11.5-15.5) % Neutrophils # (Manual) (1.3-7.7) k/uL Lymphocytes # (Manual) (1.0-4.8) k/uL Myelocytes # (Manual) (0) k/uL Nucleated RBCs (0-0) /100 WBC ABG pH <7.00 L* (7.35-7.45) ABG pCO2 50 H (35-45) mmHg ABG pO2 79 L (83-108) mmHg ABG HCO3 11 L (21-25) mmol/L ABG Total CO2 12 L (19-24) mmol/L ABG O2 Saturation 90.6 L (94-97) % Sodium (137-145) mmol/L Potassium (3.5-5.1) mmol/L Carbon Dioxide (22-30) mmol/L BUN (9-20) mg/dL Creatinine (0.66-1.25) mg/dL Glucose (74-99) mg/dL POC Glucose (mg/dL) 448 H 501 H (75-99) mg/dL Plasma Lactic Acid Freddy (0.7-2.0) mmol/L Calcium (8.4-10.2) mg/dL Ionized Calcium Harpal (4.5-5.3) mg/dL Phosphorus (2.5-4.5) mg/dL Total Bilirubin (0.2-1.3) mg/dL AST (17-59) U/L ALT (21-72) U/L Alkaline Phosphatase (38-126) U/L Troponin I (0.000-0.034) ng/mL Total Protein (6.3-8.2) g/dL Albumin (3.5-5.0) g/dL Urine Protein (Negative) Urine Glucose (UA) (Negative) Microbiology - Last 24 Hours (Table) 03/06/19 12:08 Gram Stain - Preliminary Other - Other Wound Culture - Preliminary Gram Neg Bacilli 03/06/19 11:03 Gram Stain - Preliminary Sputum Sputum Culture - Preliminary 03/01/19 17:47 Blood Culture - Preliminary Blood No Growth after 120 hours 03/06/19 12:08 Anaerobic Culture - Preliminary Other - Other Assessment and Plan Assessment: Multisystem organ failure Aspiration pneumonia The patient will have a dialysis catheter placed today. I discussed the patient's states that his condition is very critical and he is unlikely to survive. Patient will be fully supported currently.
--- NOTE | 2019-03-07 10:44 | P.PN ---
Subjective Progress Note Date: 03/07/19 Principal diagnosis: Acute hypoxic respiratory failure, aspiration pneumonia, ARDS multi-organ system failure. History of present illness: This is a 58-year-old white male who was initially admitted on 02/23/2019, patient was admitted with mostly clinical picture of bowel obstruction. Patient was seen by surgery on consultation, and since he did not improve with conservative measures, patient underwent expiratory laparotomy with repair of incisional hernia, partial omentectomy, lysis of adhesions, right colectomy, small bowel resection secondary to small bowel obstruction on 02/27, and has been recovering on a regular medical floor. His nasogastric tube has been discontinued on 03/03, and the patient has been doing fairly well until this morning patient was noted to have significant increase in his WBC count, patient also spiked a temp of 103, rapid response team responded to the patient, and he was noted to be tachycardic, in atrial fibrillation with RVR, heart rate was in the 150 range. Patient was not hypotensive however his O2 saturation was marginal at 90%. Patient was also noted to be lethargic, unable to wake up and speak. He was confused, he was given fluids, arrangements were made to transfer the patient to the ICU. And surgery was reconsulted on the patient. I did evaluate the patient as soon as he arrived to the ICU, and clearly he was in extreme respiratory distress. Recommended immediate intubation which was done by TURRET LATHE SET UP OPERATOR, in the meantime I went ahead and placed a right femoral triple-lumen catheter, and an arterial line was also placed. I also ordered amiodarone bolus and amiodarone drip. Stabilize the patient enough to get exploratory laparotomy in the operating room. However it is worth mentioning upon intubation, the patient was noted to have significant amount of stomach secretions bilious material in his airways which was suctioned. Patient was connected to mechanical ventilation. And his nasogastric tube showed significant amount of bilious material in the stomach. Shortly after he was stabilized, patient was sent to the OR, underwent drainage of intraperitoneal seroma/hematoma. There w as no purulent material in the abdominal cavity there was no evidence of perforation or rupture. There was no evidence of any leak at the anastomosis site. His abdominal cavity was irrigated with 3 L of normal saline and a TATE drain was placed in the right paracolic gutter brought through separate stab incision. Patient was then transferred back to the ICU. Upon arrival to the ICU again, patient was noted to be barely saturating in the 90% range and his PEEP was increased at 12, FiO2 100%, assist control rate was 20, volume was 500, and I have arranged for the patient to be placed on Nimbex since he is going to require significantly higher PEEP. I believe the patient clearly aspirated, and he is a great set up to develop ARDS. Patient will be given broad-spectrum antibiotics, I will start him on steroids, and I will monitor the patient closely in the intensive care unit. Obviously the patient is extremely critically ill at this point. ABG upon intubating the patient before he went to the or showed a pO2 of 155 pCO2 of 38 pH of 7.35. ABG before intubation showed a pO2 of 51 pCO2 of 33 pH of 7.49. Follow-up ABG post exploratory laparotomy is pending. However his O2 saturation is ranging between mid 80s to the 90% range Patient was reevaluated today on 03/07/2019, patient underwent exploratory laparotomy yesterday and since he came back from the OR, has been doing extrem lauren poor. He developed worsening ARDS, requiring high FiO2 and high PEEP. Developed profound hypotension requiring norepinephrine at 40 mcg/m, and he is on vasopressin being titrated presently at 0.03 units. His chest x-ray is significantly worsening his liver enzymes are much worse his kidney functioning is worsening and he is basically anuric with significant kidney injury. This is basically acute tubular necrosis secondary to hypotension. Patient is presently on the following ventilator settings tidal volume of 500 assist control rate of 34 FiO2 of 100% and PEEP is 16. ABG showed a pO2 of 79 pCO2 of 50 pH of less than 7.0. Patient received significant amount of sodium bicarb yesterday, remains on a bicarb drip at 1 50 mL per hour. His potassium is 5.5 BUN is 36 creatinine 2.7. Liver enzymes/transaminases skyrocketed with AST of 14,600, Alt of over 4000 alkaline phosphatase is 140. Hemoglobin is 7.3 WBC count is 46.7. Patient is on multiple drips including Nimbex amiodarone which is presently on hold propofol vasopressin and norepinephrine bicarb and he is also on TPN. Patient is going to have a dialysis catheter, and nephrology will attempt to dialyze the patient today. is at bedside, and she was updated on his condition. She is agreeable to DO NOT RESUSCITATE CODE STATUS in case patient develops cardiac arrest. However still hoping that patient might improve with what we are doing at this point. She was made aware that his prognosis is extremely poor and guarded, and mortality is over 95% at this point. Objective - Vital Signs Vital signs: Vital Signs Temp 98.3 F 03/07/19 00:00 Pulse 67 03/07/19 07:00 Resp 34 H 03/07/19 07:00 BP 96/25 03/06/19 18:30 Pulse Ox 87 L 03/07/19 07:00 Intake & Output 03/06/19 03/07/19 03/07/19 18:59 06:59 18:59 Intake Total 3950.188 4044.174 361.571 Output Total 1303 496 0 Balance 2647.188 3548.174 361.571 Weight 94.1 kg 107 kg Intake: IV 3695 3486 271 ACETAMINOPHEN IV (For NPO 100 ) 1,000 mg In Empty Bag 1 bag @ 400 mls/hr IVPB ONCE STA Rx#:[id number] Calcium Gluconate 1 gm In 100 Sodium Chloride 0.9% 100 ml @ 100 mls/hr IVPB ONCE ONE Rx#:[id number] Calcium Gluconate 1 gm In 100 Sodium Chloride 0.9% 100 ml @ 100 mls/hr IVPB ONCE ONE Rx#:[id number] Dextrose 5% in Water 1, 75 1575 150 000 ml @ 150 mls/hr IV . Q7H40M [place] with Sodium Bicarb (1 Meq/ml) 150 ml Rx#:[id number] Dextrose 5% in Water 100 100 ml @ 618 mls/hr IV .Q10M ONE with Amiodarone 150 mg Rx#:[id number] Magnesium Sulfate-D5w Pmx 200 1 gm In Dextrose/Water 1 100ml.bag @ 100 mls/hr IVPB Q1H [place] Rx#: [id number] Meropenem 1 gm In Sodium 100 100 Chloride 0.9% 100 ml @ 200 mls/hr IVPB Q12HR [facility] Rx#:[id number] Mvi, Adult No.4 with Vit 1045 95 K 10 ml Trace (Conc-1Ml/ Dose) 1 ml In Amino Acid 4.25%-D10w+Lytes*E* 1,000 ml @ 95 mls/hr IV .BY DURATION [facility] Rx#: [id number] Pressure Bags 66 6 Sodium Bicarbonate 250 Sodium Chloride 0.9% 1, 1000 000 ml @ 0 mls/hr IV .STK -MED ONE Rx#:[id number] Sodium Chloride 0.9% 1, 520 000 ml @ 75 mls/hr IV . [id number] [place] Rx#:[id number] Sodium Chloride 0.9% 500 500 ml 500 ml @ 999 mls/hr IV .Q31M ONE Rx#:[id number] Sodium Chloride 0.9% @ 20 220 20 ml/hr Sodium Chloride 0.9% 130 flush Vancomycin 1,750 mg In 500 Sodium Chloride 0.9% 500 ml 500 ml @ 167 mls/hr IVPB Q24HR@0800 [place] Rx#: [id number] Intake, IV Titration 255.188 558.174 90.571 Amount Amiodarone 300 mg In 250 Dextrose 5% in Water 250 ml @ 0.5 MG/MIN 25 mls/hr IV .Q10H [facility] Rx#: [id number] Mvi, Adult No.4 with Vit 0 K 10 ml Trace (Conc-1Ml/ Dose) 1 ml In Amino Acid 4.25%-D10w+Lytes*E* 1,000 ml @ 95 mls/hr IV .BY DURATION [facility] Rx#: [id number] Norepinephrine 32 mg In 33.376 146.492 Sodium Chloride 0.9% 218 ml @ 0.05 MCG/KG/MIN 2. 205 mls/hr IV .Q24H [facility] Rx#:[id number] Norepinephrine 4 mg In 150.578 Sodium Chloride 0.9% 250 ml @ 0.05 MCG/KG/MIN 17. 926 mls/hr IV .[id number] [facility] Rx#:[id number] Propofol 1,000 mg In 71.234 161.682 90.571 Empty Bag 1 bag @ Titrate IV .Q0M [place] Rx#: [id number] Output: Gastric Drainage 900 90 Drainage 125 340 Right Abdomen 125 340 Urine 228 66 0 Estimated Blood Loss 50 Other: Voiding Method Indwelling Catheter Indwelling Catheter ABP, PAP, CO, CI - Last Documented Arterial Blood Pressure 112/52 - Exam General: Revealed a 58-year-old white male, obese, on mechanical ventilation, sedated and paralyzed. Derm: Warm, dry skin, no rashes. Head: Normocephalic, atraumatic. Eyes: PERRLA, EOMI, no icterus. Mouth: Dry mucous membranes noted, endotracheal tube is intact. Orogastric tube is intact. Cardiovascular: Normal S1 and S2 distant S1 and S2, no S3 gallop., Lungs: Crackles and rhonchi noted bilaterally. Symmetrical chest expansion. No chest wall tenderness. Abdominal: Abdomen is noted to be distended, postsurgical, no bowel sounds. Ext: No clubbing, 2+ + edema, no cyanosis. Neuro: Cannot be assessed, patient is sedated, paralyzed, on mechanical ventilation. Psych: Cannot be assessed. - Labs CBC & Chem 7: 03/07/19 04:45 03/07/19 04:45 Labs: Abnormal Lab Results - Last 24 Hours (Table) 03/06/19 03/06/19 03/06/19 Range/Units 08:45 10:45 10:52 WBC (3.8-10.6) k/uL RBC (4.30-5.90) m/uL Hgb (13.0-17.5) gm/dL Hct (39.0-53.0) % MCHC (31.0-37.0) g/dL RDW (11.5-15.5) % Neutrophils # (Manual) (1.3-7.7) k/uL Lymphocytes # (Manual) (1.0-4.8) k/uL Myelocytes # (Manual) (0) k/uL Nucleated RBCs (0-0) /100 WBC ABG pH (7.35-7.45) ABG pCO2 (35-45) mmHg ABG pO2 155 H (83-108) mmHg ABG HCO3 (21-25) mmol/L ABG Total CO2 (19-24) mmol/L ABG O2 Saturation 99.3 H (94-97) % Sodium (137-145) mmol/L Potassium (3.5-5.1) mmol/L Carbon Dioxide (22-30) mmol/L BUN (9-20) mg/dL Creatinine (0.66-1.25) mg/dL Glucose (74-99) mg/dL POC Glucose (mg/dL) (75-99) mg/dL Plasma Lactic Acid Freddy (0.7-2.0) mmol/L Calcium (8.4-10.2) mg/dL Ionized Calcium Harpal (4.5-5.3) mg/dL Phosphorus (2.5-4.5) mg/dL Total Bilirubin (0.2-1.3) mg/dL AST (17-59) U/L ALT (21-72) U/L Alkaline Phosphatase (38-126) U/L Troponin I 0.149 H* (0.000-0.034) ng/mL Total Protein (6.3-8.2) g/dL Albumin (3.5-5.0) g/dL Urine Protein Trace H (Negative) Urine Glucose (UA) Trace H (Negative) 03/06/19 03/06/19 03/06/19 Range/Units 12:45 12:56 16:00 WBC (3.8-10.6) k/uL RBC (4.30-5.90) m/uL Hgb (13.0-17.5) gm/dL Hct (39.0-53.0) % MCHC (31.0-37.0) g/dL RDW (11.5-15.5) % Neutrophils # (Manual) (1.3-7.7) k/uL Lymphocytes # (Manual) (1.0-4.8) k/uL Myelocytes # (Manual) (0) k/uL Nucleated RBCs (0-0) /100 WBC ABG pH (7.35-7.45) ABG pCO2 (35-45) mmHg ABG pO2 (83-108) mmHg ABG HCO3 (21-25) mmol/L ABG Total CO2 (19-24) mmol/L ABG O2 Saturation (94-97) % Sodium (137-145) mmol/L Potassium (3.5-5.1) mmol/L Carbon Dioxide (22-30) mmol/L BUN (9-20) mg/dL Creatinine (0.66-1.25) mg/dL Glucose (74-99) mg/dL POC Glucose (mg/dL) 243 H (75-99) mg/dL Plasma Lactic Acid Freddy 4.2 H* (0.7-2.0) mmol/L Calcium (8.4-10.2) mg/dL Ionized Calcium Harpal (4.5-5.3) mg/dL Phosphorus (2.5-4.5) mg/dL Total Bilirubin (0.2-1.3) mg/dL AST (17-59) U/L ALT (21-72) U/L Alkaline Phosphatase (38-126) U/L Troponin I 0.117 H* (0.000-0.034) ng/mL Total Protein (6.3-8.2) g/dL Albumin (3.5-5.0) g/dL Urine Protein (Negative) Urine Glucose (UA) (Negative) 03/06/19 03/06/19 03/06/19 Range/Units 17:09 17:15 18:16 WBC (3.8-10.6) k/uL RBC (4.30-5.90) m/uL Hgb (13.0-17.5) gm/dL Hct (39.0-53.0) % MCHC (31.0-37.0) g/dL RDW (11.5-15.5) % Neutrophils # (Manual) (1.3-7.7) k/uL Lymphocytes # (Manual) (1.0-4.8) k/uL Myelocytes # (Manual) (0) k/uL Nucleated RBCs (0-0) /100 WBC ABG pH <7.00 L* (7.35-7.45) ABG pCO2 65 H (35-45) mmHg ABG pO2 74 L (83-108) mmHg ABG HCO3 13 L (21-25) mmol/L ABG Total CO2 15 L (19-24) mmol/L ABG O2 Saturation 83.4 L (94-97) % Sodium 136 L (137-145) mmol/L Potassium 6.0 H (3.5-5.1) mmol/L Carbon Dioxide 13 L (22-30) mmol/L BUN 31 H (9-20) mg/dL Creatinine 2.12 H (0.66-1.25) mg/dL Glucose 157 H (74-99) mg/dL POC Glucose (mg/dL) 135 H (75-99) mg/dL Plasma Lactic Acid Freddy (0.7-2.0) mmol/L Calcium 6.4 L* (8.4-10.2) mg/dL Ionized Calcium Harpal (4.5-5.3) mg/dL Phosphorus (2.5-4.5) mg/dL Total Bilirubin 1.6 H (0.2-1.3) mg/dL AST 151 H (17-59) U/L ALT 74 H (21-72) U/L Alkaline Phosphatase 322 H (38-126) U/L Troponin I (0.000-0.034) ng/mL Total Protein 4.5 L (6.3-8.2) g/dL Albumin 2.0 L (3.5-5.0) g/dL Urine Protein (Negative) Urine Glucose (UA) (Negative) 03/06/19 03/06/19 03/06/19 Range/Units 18:26 19:14 19:40 WBC (3.8-10.6) k/uL RBC (4.30-5.90) m/uL Hgb (13.0-17.5) gm/dL Hct (39.0-53.0) % MCHC (31.0-37.0) g/dL RDW (11.5-15.5) % Neutrophils # (Manual) (1.3-7.7) k/uL Lymphocytes # (Manual) (1.0-4.8) k/uL Myelocytes # (Manual) (0) k/uL Nucleated RBCs (0-0) /100 WBC ABG pH <7.00 L* 7.05 L* (7.35-7.45) ABG pCO2 58 H 59 H (35-45) mmHg ABG pO2 73 L 69 L (83-108) mmHg ABG HCO3 13 L 16 L (21-25) mmol/L ABG Total CO2 15 L 18 L (19-24) mmol/L ABG O2 Saturation 85.9 L 87.7 L (94-97) % Sodium (137-145) mmol/L Potassium (3.5-5.1) mmol/L Carbon Dioxide 17 L (22-30) mmol/L BUN 33 H (9-20) mg/dL Creatinine 2.17 H (0.66-1.25) mg/dL Glucose 197 H (74-99) mg/dL POC Glucose (mg/dL) (75-99) mg/dL Plasma Lactic Acid Freddy (0.7-2.0) mmol/L Calcium 6.2 L* (8.4-10.2) mg/dL Ionized Calcium Harpal 3.8 L (4.5-5.3) mg/dL Phosphorus 9.3 H* (2.5-4.5) mg/dL Total Bilirubin (0.2-1.3) mg/dL AST (17-59) U/L ALT (21-72) U/L Alkaline Phosphatase (38-126) U/L Troponin I (0.000-0.034) ng/mL Total Protein (6.3-8.2) g/dL Albumin (3.5-5.0) g/dL Urine Protein (Negative) Urine Glucose (UA) (Negative) 03/06/19 03/06/19 03/07/19 Range/Units 22:18 23:40 04:45 WBC 46.7 H (3.8-10.6) k/uL RBC 2.74 L (4.30-5.90) m/uL Hgb 7.3 L (13.0-17.5) gm/dL Hct 26.0 L (39.0-53.0) % MCHC 28.1 L (31.0-37.0) g/dL RDW 19.2 H (11.5-15.5) % Neutrophils # (Manual) 43.40 H (1.3-7.7) k/uL Lymphocytes # (Manual) 0.93 L (1.0-4.8) k/uL Myelocytes # (Manual) 1.40 H (0) k/uL Nucleated RBCs 3 H (0-0) /100 WBC ABG pH 7.10 L* (7.35-7.45) ABG pCO2 51 H (35-45) mmHg ABG pO2 77 L (83-108) mmHg ABG HCO3 16 L (21-25) mmol/L ABG Total CO2 17 L (19-24) mmol/L ABG O2 Saturation 92.6 L (94-97) % Sodium (137-145) mmol/L Potassium (3.5-5.1) mmol/L Carbon Dioxide (22-30) mmol/L BUN (9-20) mg/dL Creatinine (0.66-1.25) mg/dL Glucose (74-99) mg/dL POC Glucose (mg/dL) 239 H (75-99) mg/dL Plasma Lactic Acid Freddy (0.7-2.0) mmol/L Calcium (8.4-10.2) mg/dL Ionized Calcium Harpal (4.5-5.3) mg/dL Phosphorus (2.5-4.5) mg/dL Total Bilirubin (0.2-1.3) mg/dL AST (17-59) U/L ALT (21-72) U/L Alkaline Phosphatase (38-126) U/L Troponin I (0.000-0.034) ng/mL Total Protein (6.3-8.2) g/dL Albumin (3.5-5.0) g/dL Urine Protein (Negative) Urine Glucose (UA) (Negative) 03/07/19 03/07/19 03/07/19 Range/Units 04:45 05:46 06:09 WBC (3.8-10.6) k/uL RBC (4.30-5.90) m/uL Hgb (13.0-17.5) gm/dL Hct (39.0-53.0) % MCHC (31.0-37.0) g/dL RDW (11.5-15.5) % Neutrophils # (Manual) (1.3-7.7) k/uL Lymphocytes # (Manual) (1.0-4.8) k/uL Myelocytes # (Manual) (0) k/uL Nucleated RBCs (0-0) /100 WBC ABG pH (7.35-7.45) ABG pCO2 (35-45) mmHg ABG pO2 (83-108) mmHg ABG HCO3 (21-25) mmol/L ABG Total CO2 (19-24) mmol/L ABG O2 Saturation (94-97) % Sodium (137-145) mmol/L Potassium 5.5 H (3.5-5.1) mmol/L Carbon Dioxide 15 L (22-30) mmol/L BUN 36 H (9-20) mg/dL Creatinine 2.70 H (0.66-1.25) mg/dL Glucose 380 H (74-99) mg/dL POC Glucose (mg/dL) 405 H 418 H (75-99) mg/dL Plasma Lactic Acid Freddy (0.7-2.0) mmol/L Calcium 6.4 L* (8.4-10.2) mg/dL Ionized Calcium Harpal 3.6 L (4.5-5.3) mg/dL Phosphorus 12.6 H* (2.5-4.5) mg/dL Total Bilirubin 2.4 H (0.2-1.3) mg/dL AST 63024 H (17-59) U/L ALT 4002 H (21-72) U/L Alkaline Phosphatase 140 H (38-126) U/L Troponin I (0.000-0.034) ng/mL Total Protein 3.8 L (6.3-8.2) g/dL Albumin 1.7 L (3.5-5.0) g/dL Urine Protein (Negative) Urine Glucose (UA) (Negative) 03/07/19 03/07/19 03/07/19 Range/Units 06:12 07:11 09:44 WBC (3.8-10.6) k/uL RBC (4.30-5.90) m/uL Hgb (13.0-17.5) gm/dL Hct (39.0-53.0) % MCHC (31.0-37.0) g/dL RDW (11.5-15.5) % Neutrophils # (Manual) (1.3-7.7) k/uL Lymphocytes # (Manual) (1.0-4.8) k/uL Myelocytes # (Manual) (0) k/uL Nucleated RBCs (0-0) /100 WBC ABG pH <7.00 L* (7.35-7.45) ABG pCO2 50 H (35-45) mmHg ABG pO2 79 L (83-108) mmHg ABG HCO3 11 L (21-25) mmol/L ABG Total CO2 12 L (19-24) mmol/L ABG O2 Saturation 90.6 L (94-97) % Sodium (137-145) mmol/L Potassium (3.5-5.1) mmol/L Carbon Dioxide (22-30) mmol/L BUN (9-20) mg/dL Creatinine (0.66-1.25) mg/dL Glucose (74-99) mg/dL POC Glucose (mg/dL) 448 H 501 H (75-99) mg/dL Plasma Lactic Acid Freddy (0.7-2.0) mmol/L Calcium (8.4-10.2) mg/dL Ionized Calcium Harpal (4.5-5.3) mg/dL Phosphorus (2.5-4.5) mg/dL Total Bilirubin (0.2-1.3) mg/dL AST (17-59) U/L ALT (21-72) U/L Alkaline Phosphatase (38-126) U/L Troponin I (0.000-0.034) ng/mL Total Protein (6.3-8.2) g/dL Albumin (3.5-5.0) g/dL Urine Protein (Negative) Urine Glucose (UA) (Negative) Microbiology - Last 24 Hours (Table) 03/06/19 12:08 Gram Stain - Preliminary Other - Other Wound Culture - Preliminary Gram Neg Bacilli 03/06/19 11:03 Gram Stain - Preliminary Sputum Sputum Culture - Preliminary 03/01/19 17:47 Blood Culture - Preliminary Blood No Growth after 120 hours 03/06/19 12:08 Anaerobic Culture - Preliminary Other - Other Assessment and Plan Assessment: Impression: 1 acute hypoxic respiratory failure secondary to aspiration pneumonia, ARDS, septic shock, and possible abdominal sepsis. 2 acute metabolic encephalopathy, secondary to sepsis and aspiration pneumonia. 3 atrial fibrillation with RVR presently in normal sinus rhythm, amiodarone was placed on hold. 4 acute metabolic acidosis secondary to sepsis and septic shock 5 status post exploratory laparotomy and drainage of hematoma/seroma no clear- cut evidence of infection or perforation noted according to the surgeon on the case. 6 small bowel obstruction requiring surgical intervention on his initial admission. 7 recent history of Streptococcus bacteremia treated and presently on Merrem and vancomycin. 8 history of adrenal insufficiency patient is presently on Cortef. 9 type 2 diabetes. Presently on insulin drip. 10 multi organ dysfunction secondary to sepsis and septic shock including lungs, liver, kidneys, which makes prognosis is extremely poor at this point. Mortality is over 95%. 10 multiple comorbidities including COPD, obstructive sleep apnea, benign essential hypertension, hyperlipidemia, hypothyroidism, coronary artery disease, chronic anemia, history of pancreatic neuroendocrine tumor. Recommendation: Continue ventilatory support, nutritional support via TPN, sodium bicarb drip for profound metabolic acidosis, hemodialysis, antibiotics, GI and DVT prophylaxis, pressors for low blood pressure, continue high PEEP and high FiO2 for now, continue bicarb drip, continue paralysis and sedation, discussed his condition with his , and she is very well aware of the poor prognostic picture and the high mortality discussed his condition with the different consultants on the case including general surgery, cardiology, nephrology, and internal medicine. We are all aware that his overall prognostic picture is extremely poor. Discussed CODE STATUS with the , agreeable to DO NOT RESUSCITATE CODE STATUS at this point. However will continue maximum supportive care measures for now. Critical care time is 45 minutes Time with Patient: Greater than 30
[2019-03-07 10:48] LABS: Glucose,Whole Blood 374 mg/dL (75-99)
[2019-03-07 11:48] LABS: Glucose,Whole Blood 369 mg/dL (75-99)
[2019-03-07 11:57] VITALS: BMI 39.2
[2019-03-07 12:28] LABS: ABG Base Excess -24.2 mmol/L; ABG Oxygen Saturation 94.5 % (94-97); ABG PCO2 50 mmHg (35-45); ABG PO2 97 mmHg (83-108); ABG TCO2 11 mmol/L (19-24)
[2019-03-07 12:32] LABS: ABG HCO3 9 mmol/L (21-25); ABG PH <7.00 (7.35-7.45); Allen Test Performed? NO
[2019-03-07 13:10] LABS: Glucose,Whole Blood 413 mg/dL (75-99)
[2019-03-07 14:22] LABS: Glucose,Whole Blood 433 mg/dL (75-99)
[2019-03-07 15:22] LABS: Glucose,Whole Blood 448 mg/dL (75-99)
[2019-03-07 15:22] LABS: Glucose,Whole Blood 413 mg/dL (75-99)
[2019-03-07] MEDS: SODIUM CHLORIDE 0.45% 1,000 ML with SODIUM BICARB (1 MEQ/ML) 150 ML IV SCH ×4 (15:59→23:45)
[2019-03-07] MEDS: CISATRACURIUM 200 MG in SODIUM CHLORIDE 0.9% 180 ML IV SCH (16:00)
--- NOTE | 2019-03-07 16:13 | P.PN ---
Subjective Progress Note Date: 03/07/19 Principal diagnosis: abdominal pain Patient is a 58-year-old male with a past medical history of diabetes mellitus type 2 insulin requiring, hypertension, dyslipidemia, systolic congestive heart failure with last ejection fraction 45-50%, and adrenal insufficiency requiring twice daily Cortef who presented to the ER with complaints of abdominal pain. On arrival to the ER his vital signs within normal limits. White blood cell count was slightly elevated at 12.9. L aboratory analysis is otherwise unremarkable. Urinalysis negative. CT abdomen and pelvis showed partial small bowel obstruction with concern for adhesions. He was started on IV fluids, made nothing by mouth, and had an nasogastric tube placed. He was admitted for further monitoring. We're asked to consult regarding his adrenal insufficiency and diabetic management. He was recently hospitalized here from 02/09 through 02/12 group B strep bacteremia related to infection of the skin. He is due to complete his Rocephin therapy after his dose on 01/26. He ultimately underwent exploratory laparotomy with repair of incisional hernia, partial omentectomy, lysis of adhesion, right colectomy, sma ll bowel resection secondary to his small bowel obstruction on 02/27. He has been progressing well since surgery. Has NG tube discontinued on 03/03. He is being followed by infectious disease. 03/06. Noted to have WBC increased to 33, order acute abdominal series. Nursing called several minutes later that patient was in distress and spiked a fever to 103. A-team activated and I immediately proceeded to bedside. On arrival patient was noted to be tachycardic with heart rate in the 150s, blood pressure was normal at 154/90, glucose 170, SpO2 90. Patient appears lethargic but was able to wake up and speak, however he was confused and thought that he was in a car. Ordered 1 L fluid bolus, stat CBC, CMP, lactic acid and blood cultures. Acute abdominal series reviewed at bedside and appeared to have dilated loops of small bowel. Dr. Nichols immediately notified and also presented at bedside. ABG was obtained which showed the patient to have a low CO2 level consistent with his tachypnea, and a low PaO2 at 51. His O2 was increased. He was transferred to ICU. CT abdomen and pelvis ordered and reviewed with Dr. Nichols which revealed dilated small bowel loops. Patient also noted be in A. fib with RVR became hypotensive and ICU with the systolic 70s. Therefore an amiodarone drip was ordered. He was placed on vanoc and merrem, he received IVF. Blood culture, UA, and CXR obtained. EKG appeared to be consistent with A. fib with RVR. Dr. Pope with critical care consulted. Patient was in respiratory distress and was intubated in the ICU, on intubation he was noted to have aspirated. He had a central line and arterial line placed. We has taked for ex- lap he had an intraperitoneal seroma/ hematoma. There was no evidence of perforation. Upon arrival back to the ICU he continued to poorly. He was noted to be profoundly acidotic. He was given multiple doses of intravenous bicarbonate overnight. 03/07. Patient will be and ARDS. He has elevated PEEP. He was noted to have shock liver, renal failure with refractory acidosis. He has been placed on paralytics. He is on both Levophed and vasopressin. He received dialysis but remains acidotic. Family has been updated by Dr. Martins. Extremely poor prognosis. Patient seen and examined at bedside with nursing present. No family available. Patient is sedated and paralyzed on the vent. Overnight events noted above. Objective - Vital Signs Vital signs: Vital Signs Temp 98.1 F 03/07/19 12:44 Pulse 70 03/07/19 15:33 Resp 34 H 03/07/19 15:00 BP 110/49 03/07/19 15:00 Pulse Ox 82 L 03/07/19 12:15 Intake & Output 03/06/19 03/07/19 03/07/19 18:59 06:59 18:59 Intake Total 3950.188 4044.174 2934.272 Output Total 1303 496 575 Balance 2647.188 3548.174 2359.272 Weight 94.1 kg 107 kg 107 kg Intake: IV 8756 1160 0354 ACETAMINOPHEN IV (For NPO 100 ) 1,000 mg In Empty Bag 1 bag @ 400 mls/hr IVPB ONCE STA Rx#:[id number] Calcium Gluconate 1 gm In 100 Sodium Chloride 0.9% 100 ml @ 100 mls/hr IVPB ONCE ONE Rx#:[id number] Calcium Gluconate 1 gm In 100 Sodium Chloride 0.9% 100 ml @ 100 mls/hr IVPB ONCE ONE Rx#:[id number] Dextrose 5% in Water 1, 75 1575 1350 000 ml @ 150 mls/hr IV . Q7H40M [place] with Sodium Bicarb (1 Meq/ml) 150 ml Rx#:[id number] Dextrose 5% in Water 100 100 ml @ 618 mls/hr IV .Q10M ONE with Amiodarone 150 mg Rx#:[id number] Magnesium Sulfate-D5w Pmx 200 1 gm In Dextrose/Water 1 100ml.bag @ 100 mls/hr IVPB Q1H [facility] Rx#: [id number] Meropenem 1 gm In Sodium 100 100 100 Chloride 0.9% 100 ml @ 200 mls/hr IVPB Q12HR [facility] Rx#:[id number] Mvi, Adult No.4 with Vit 1045 760 K 10 ml Trace (Conc-1Ml/ Dose) 1 ml In Amino Acid 4.25%-D10w+Lytes*E* 1,000 ml @ 95 mls/hr IV .BY DURATION [facility] Rx#: [id number] Pressure Bags 66 54 Sodium Bicarbonate 250 Sodium Chloride 0.9% 1, 1000 000 ml @ 0 mls/hr IV .STK -MED ONE Rx#:[id number] Sodium Chloride 0.9% 1, 520 000 ml @ 75 mls/hr IV . [id number] [facility] Rx#:[id number] Sodium Chloride 0.9% 500 500 ml 500 ml @ 999 mls/hr IV .Q31M ONE Rx#:[id number] Sodium Chloride 0.9% @ 20 220 180 ml/hr Sodium Chloride 0.9% 130 flush Vancomycin 1,750 mg In 500 Sodium Chloride 0.9% 500 ml 500 ml @ 167 mls/hr IVPB Q24HR@0800 [facility] Rx#: [id number] Intake, IV Titration 255.188 558.174 290.272 Amount Amiodarone 300 mg In 250 Dextrose 5% in Water 250 ml @ 0.5 MG/MIN 25 mls/hr IV .Q10H [facility] Rx#: [id number] Insulin Regular 100 unit 101.000 In Sodium Chloride 0.9% 100 ml @ Per Protocol IV .Q0M [facility] Rx#:[id number] Mvi, Adult No.4 with Vit 0 K 10 ml Trace (Conc-1Ml/ Dose) 1 ml In Amino Acid 4.25%-D10w+Lytes*E* 1,000 ml @ 95 mls/hr IV .BY DURATION [place] Rx#: [id number] Norepinephrine 32 mg In 33.376 146.492 98.701 Sodium Chloride 0.9% 218 ml @ 0.05 MCG/KG/MIN 2. 205 mls/hr IV .Q24H [place] Rx#:[id number] Norepinephrine 4 mg In 150.578 Sodium Chloride 0.9% 250 ml @ 0.05 MCG/KG/MIN 17. 926 mls/hr IV .[id number] [place] Rx#:[id number] Propofol 1,000 mg In 71.234 161.682 90.571 Empty Bag 1 bag @ Titrate IV .Q0M [place] Rx#: [id number] Hemodialysis 200 Output: Gastric Drainage 900 90 Drainage 125 340 560 Right Abdomen 125 340 560 Urine 228 66 15 Estimated Blood Loss 50 Other: Voiding Method Indwelling Catheter Indwelling Catheter Indwelling Catheter ABP, PAP, CO, CI - Last Documented Arterial Blood Pressure 130/58 - Exam General: Toxic, maximal distress, pale, Derm: warm, dry Head: atraumatic, normocephalic, symmetric Eyes: Pupils pinpoint, no lid lesion, anicteric sclera Mouth: no lip lesion, mucus membranes moist Cardiovascular: S1S2 irreg, no murmur, positive posterior tibial pulse bilateral, Lungs: course bs b/l, no rhonchi, no rales , no accessory muscle use, on vent, ET tube in placed Abdominal: soft, abd binder and TATE drain in place. no appreciable organomegaly Ext: no gross muscle atrophy, diffuse anasarca, no contractures Neuro: on paralytics Psych: Alert, oriented, appropriate affect - Labs CBC & Chem 7: 03/07/19 04:45 03/07/19 04:45 Labs: Abnormal Lab Results - Last 24 Hours (Table) 03/06/19 03/06/19 03/06/19 Range/Units 16:00 17:09 17:15 WBC (3.8-10.6) k/uL RBC (4.30-5.90) m/uL Hgb (13.0-17.5) gm/dL Hct (39.0-53.0) % MCHC (31.0-37.0) g/dL RDW (11.5-15.5) % Neutrophils # (Manual) (1.3-7.7) k/uL Lymphocytes # (Manual) (1.0-4.8) k/uL Myelocytes # (Manual) (0) k/uL Nucleated RBCs (0-0) /100 WBC ABG pH <7.00 L* (7.35-7.45) ABG pCO2 65 H (35-45) mmHg ABG pO2 74 L (83-108) mmHg ABG HCO3 13 L (21-25) mmol/L ABG Total CO2 15 L (19-24) mmol/L ABG O2 Saturation 83.4 L (94-97) % Sodium 136 L (137-145) mmol/L Potassium 6.0 H (3.5-5.1) mmol/L Carbon Dioxide 13 L (22-30) mmol/L BUN 31 H (9-20) mg/dL Creatinine 2.12 H (0.66-1.25) mg/dL Glucose 157 H (74-99) mg/dL POC Glucose (mg/dL) (75-99) mg/dL Calcium 6.4 L* (8.4-10.2) mg/dL Ionized Calcium Harpal (4.5-5.3) mg/dL Phosphorus (2.5-4.5) mg/dL Total Bilirubin 1.6 H (0.2-1.3) mg/dL AST 151 H (17-59) U/L ALT 74 H (21-72) U/L Alkaline Phosphatase 322 H (38-126) U/L Troponin I 0.117 H* (0.000-0.034) ng/mL Total Protein 4.5 L (6.3-8.2) g/dL Albumin 2.0 L (3.5-5.0) g/dL 03/06/19 03/06/19 03/06/19 Range/Units 18:16 18:26 19:14 WBC (3.8-10.6) k/uL RBC (4.30-5.90) m/uL Hgb (13.0-17.5) gm/dL Hct (39.0-53.0) % MCHC (31.0-37.0) g/dL RDW (11.5-15.5) % Neutrophils # (Manual) (1.3-7.7) k/uL Lymphocytes # (Manual) (1.0-4.8) k/uL Myelocytes # (Manual) (0) k/uL Nucleated RBCs (0-0) /100 WBC ABG pH <7.00 L* (7.35-7.45) ABG pCO2 58 H (35-45) mmHg ABG pO2 73 L (83-108) mmHg ABG HCO3 13 L (21-25) mmol/L ABG Total CO2 15 L (19-24) mmol/L ABG O2 Saturation 85.9 L (94-97) % Sodium (137-145) mmol/L Potassium (3.5-5.1) mmol/L Carbon Dioxide 17 L (22-30) mmol/L BUN 33 H (9-20) mg/dL Creatinine 2.17 H (0.66-1.25) mg/dL Glucose 197 H (74-99) mg/dL POC Glucose (mg/dL) 135 H (75-99) mg/dL Calcium 6.2 L* (8.4-10.2) mg/dL Ionized Calcium Harpal 3.8 L (4.5-5.3) mg/dL Phosphorus 9.3 H* (2.5-4.5) mg/dL Total Bilirubin (0.2-1.3) mg/dL AST (17-59) U/L ALT (21-72) U/L Alkaline Phosphatase (38-126) U/L Troponin I (0.000-0.034) ng/mL Total Protein (6.3-8.2) g/dL Albumin (3.5-5.0) g/dL 03/06/19 03/06/19 03/06/19 Range/Units 19:40 22:18 23:40 WBC (3.8-10.6) k/uL RBC (4.30-5.90) m/uL Hgb (13.0-17.5) gm/dL Hct (39.0-53.0) % MCHC (31.0-37.0) g/dL RDW (11.5-15.5) % Neutrophils # (Manual) (1.3-7.7) k/uL Lymphocytes # (Manual) (1.0-4.8) k/uL Myelocytes # (Manual) (0) k/uL Nucleated RBCs (0-0) /100 WBC ABG pH 7.05 L* 7.10 L* (7.35-7.45) ABG pCO2 59 H 51 H (35-45) mmHg ABG pO2 69 L 77 L (83-108) mmHg ABG HCO3 16 L 16 L (21-25) mmol/L ABG Total CO2 18 L 17 L (19-24) mmol/L ABG O2 Saturation 87.7 L 92.6 L (94-97) % Sodium (137-145) mmol/L Potassium (3.5-5.1) mmol/L Carbon Dioxide (22-30) mmol/L BUN (9-20) mg/dL Creatinine (0.66-1.25) mg/dL Glucose (74-99) mg/dL POC Glucose (mg/dL) 239 H (75-99) mg/dL Calcium (8.4-10.2) mg/dL Ionized Calcium Harpal (4.5-5.3) mg/dL Phosphorus (2.5-4.5) mg/dL Total Bilirubin (0.2-1.3) mg/dL AST (17-59) U/L ALT (21-72) U/L Alkaline Phosphatase (38-126) U/L Troponin I (0.000-0.034) ng/mL Total Protein (6.3-8.2) g/dL Albumin (3.5-5.0) g/dL 03/07/19 03/07/19 03/07/19 Range/Units 04:45 04:45 05:46 WBC 46.7 H (3.8-10.6) k/uL RBC 2.74 L (4.30-5.90) m/uL Hgb 7.3 L (13.0-17.5) gm/dL Hct 26.0 L (39.0-53.0) % MCHC 28.1 L (31.0-37.0) g/dL RDW 19.2 H (11.5-15.5) % Neutrophils # (Manual) 43.40 H (1.3-7.7) k/uL Lymphocytes # (Manual) 0.93 L (1.0-4.8) k/uL Myelocytes # (Manual) 1.40 H (0) k/uL Nucleated RBCs 3 H (0-0) /100 WBC ABG pH (7.35-7.45) ABG pCO2 (35-45) mmHg ABG pO2 (83-108) mmHg ABG HCO3 (21-25) mmol/L ABG Total CO2 (19-24) mmol/L ABG O2 Saturation (94-97) % Sodium (137-145) mmol/L Potassium 5.5 H (3.5-5.1) mmol/L Carbon Dioxide 15 L (22-30) mmol/L BUN 36 H (9-20) mg/dL Creatinine 2.70 H (0.66-1.25) mg/dL Glucose 380 H (74-99) mg/dL POC Glucose (mg/dL) 405 H (75-99) mg/dL Calcium 6.4 L* (8.4-10.2) mg/dL Ionized Calcium Harpal 3.6 L (4.5-5.3) mg/dL Phosphorus 12.6 H* (2.5-4.5) mg/dL Total Bilirubin 2.4 H (0.2-1.3) mg/dL AST 03589 H (17-59) U/L ALT 4002 H (21-72) U/L Alkaline Phosphatase 140 H (38-126) U/L Troponin I (0.000-0.034) ng/mL Total Protein 3.8 L (6.3-8.2) g/dL Albumin 1.7 L (3.5-5.0) g/dL 03/07/19 03/07/19 03/07/19 Range/Units 06:09 06:12 07:11 WBC (3.8-10.6) k/uL RBC (4.30-5.90) m/uL Hgb (13.0-17.5) gm/dL Hct (39.0-53.0) % MCHC (31.0-37.0) g/dL RDW (11.5-15.5) % Neutrophils # (Manual) (1.3-7.7) k/uL Lymphocytes # (Manual) (1.0-4.8) k/uL Myelocytes # (Manual) (0) k/uL Nucleated RBCs (0-0) /100 WBC ABG pH <7.00 L* (7.35-7.45) ABG pCO2 50 H (35-45) mmHg ABG pO2 79 L (83-108) mmHg ABG HCO3 11 L (21-25) mmol/L ABG Total CO2 12 L (19-24) mmol/L ABG O2 Saturation 90.6 L (94-97) % Sodium (137-145) mmol/L Potassium (3.5-5.1) mmol/L Carbon Dioxide (22-30) mmol/L BUN (9-20) mg/dL Creatinine (0.66-1.25) mg/dL Glucose (74-99) mg/dL POC Glucose (mg/dL) 418 H 448 H (75-99) mg/dL Calcium (8.4-10.2) mg/dL Ionized Calcium Harpal (4.5-5.3) mg/dL Phosphorus (2.5-4.5) mg/dL Total Bilirubin (0.2-1.3) mg/dL AST (17-59) U/L ALT (21-72) U/L Alkaline Phosphatase (38-126) U/L Troponin I (0.000-0.034) ng/mL Total Protein (6.3-8.2) g/dL Albumin (3.5-5.0) g/dL 03/07/19 03/07/19 03/07/19 Range/Units 09:44 10:45 11:45 WBC (3.8-10.6) k/uL RBC (4.30-5.90) m/uL Hgb (13.0-17.5) gm/dL Hct (39.0-53.0) % MCHC (31.0-37.0) g/dL RDW (11.5-15.5) % Neutrophils # (Manual) (1.3-7.7) k/uL Lymphocytes # (Manual) (1.0-4.8) k/uL Myelocytes # (Manual) (0) k/uL Nucleated RBCs (0-0) /100 WBC ABG pH (7.35-7.45) ABG pCO2 (35-45) mmHg ABG pO2 (83-108) mmHg ABG HCO3 (21-25) mmol/L ABG Total CO2 (19-24) mmol/L ABG O2 Saturation (94-97) % Sodium (137-145) mmol/L Potassium (3.5-5.1) mmol/L Carbon Dioxide (22-30) mmol/L BUN (9-20) mg/dL Creatinine (0.66-1.25) mg/dL Glucose (74-99) mg/dL POC Glucose (mg/dL) 501 H 374 H 369 H (75-99) mg/dL Calcium (8.4-10.2) mg/dL Ionized Calcium Harpal (4.5-5.3) mg/dL Phosphorus (2.5-4.5) mg/dL Total Bilirubin (0.2-1.3) mg/dL AST (17-59) U/L ALT (21-72) U/L Alkaline Phosphatase (38-126) U/L Troponin I (0.000-0.034) ng/mL Total Protein (6.3-8.2) g/dL Albumin (3.5-5.0) g/dL 03/07/19 03/07/19 03/07/19 Range/Units 12:25 13:07 14:08 WBC (3.8-10.6) k/uL RBC (4.30-5.90) m/uL Hgb (13.0-17.5) gm/dL Hct (39.0-53.0) % MCHC (31.0-37.0) g/dL RDW (11.5-15.5) % Neutrophils # (Manual) (1.3-7.7) k/uL Lymphocytes # (Manual) (1.0-4.8) k/uL Myelocytes # (Manual) (0) k/uL Nucleated RBCs (0-0) /100 WBC ABG pH <7.00 L* (7.35-7.45) ABG pCO2 50 H (35-45) mmHg ABG pO2 (83-108) mmHg ABG HCO3 9 L* (21-25) mmol/L ABG Total CO2 11 L (19-24) mmol/L ABG O2 Saturation (94-97) % Sodium (137-145) mmol/L Potassium (3.5-5.1) mmol/L Carbon Dioxide (22-30) mmol/L BUN (9-20) mg/dL Creatinine (0.66-1.25) mg/dL Glucose (74-99) mg/dL POC Glucose (mg/dL) 413 H 433 H (75-99) mg/dL Calcium (8.4-10.2) mg/dL Ionized Calcium Harpal (4.5-5.3) mg/dL Phosphorus (2.5-4.5) mg/dL Total Bilirubin (0.2-1.3) mg/dL AST (17-59) U/L ALT (21-72) U/L Alkaline Phosphatase (38-126) U/L Troponin I (0.000-0.034) ng/mL Total Protein (6.3-8.2) g/dL Albumin (3.5-5.0) g/dL 03/07/19 03/07/19 Range/Units 15:15 15:18 WBC (3.8-10.6) k/uL RBC (4.30-5.90) m/uL Hgb (13.0-17.5) gm/dL Hct (39.0-53.0) % MCHC (31.0-37.0) g/dL RDW (11.5-15.5) % Neutrophils # (Manual) (1.3-7.7) k/uL Lymphocytes # (Manual) (1.0-4.8) k/uL Myelocytes # (Manual) (0) k/uL Nucleated RBCs (0-0) /100 WBC ABG pH (7.35-7.45) ABG pCO2 (35-45) mmHg ABG pO2 (83-108) mmHg ABG HCO3 (21-25) mmol/L ABG Total CO2 (19-24) mmol/L ABG O2 Saturation (94-97) % Sodium (137-145) mmol/L Potassium (3.5-5.1) mmol/L Carbon Dioxide (22-30) mmol/L BUN (9-20) mg/dL Creatinine (0.66-1.25) mg/dL Glucose (74-99) mg/dL POC Glucose (mg/dL) 448 H 413 H (75-99) mg/dL Calcium (8.4-10.2) mg/dL Ionized Calcium Harpal (4.5-5.3) mg/dL Phosphorus (2.5-4.5) mg/dL Total Bilirubin (0.2-1.3) mg/dL AST (17-59) U/L ALT (21-72) U/L Alkaline Phosphatase (38-126) U/L Troponin I (0.000-0.034) ng/mL Total Protein (6.3-8.2) g/dL Albumin (3.5-5.0) g/dL Microbiology - Last 24 Hours (Table) 03/06/19 11:03 Gram Stain - Preliminary Sputum Sputum Culture - Preliminary Gram Neg Bacilli 03/06/19 09:50 Blood Culture - Preliminary Blood No Growth after 24 hours 03/06/19 12:08 Gram Stain - Preliminary Other - Other Wound Culture - Preliminary Gram Neg Bacilli 03/01/19 17:47 Blood Culture - Preliminary Blood No Growth after 120 hours 03/06/19 12:08 Anaerobic Culture - Preliminary Other - Other Assessment and Plan Assessment: Aspiration pneumonia with septic shock, Acute hypoxic respiratory failure, ARDS - IVF - vanco and merrem - Levo, Vaso - pulmonary recommendations, infectious disease recommendations - Patient is on maximal ventilatory support, is paralyzed, on stress dose steroids, bronchodilators - Patient initial fluids for sepsis these were limited secondary to his history of systolic congestive heart failure with depressed ejection fraction -Gram-negative bacilli noted in sputum and wound cultures -Blood cultures negative for 24 hours -Extremely poor prognosis Shock liver -Secondary to above -Supportive care as outlined above -No liver abnormalities noted on computed tomography scan 03/06 - off IV amino Acute renal failure, likely ATN due to septic shock, hyperphosphatemia -Had dialysis today -Nephrology recommendations appreciated -Strict I's and O -Avoid additional nephrotoxic agents as able Anion gap metabolic acidosis - IVF - Follow labs - treatment as above Normocytic anemia, thrombocytopenia, suspect development of DIC - likely component of acute blood loss - follow CBC - Check PT/PTT/fibrinogen in AM Acute toxic encephalopathy - treatment as above A fib with RVR, resolved now in NSR - Cardio recs appreciated - hold anticoagulation - on eliquis at baseline Lactic acidosis - IVF - repeat lactic acid Elevated troponin - stress induced - no need to clinically follow Small bowel obstruction status post surgical intervention, ileus -Found have small bowel obstruction as well as acute ischemic enteritis - management per surgery - NPO currently - pain control - antiemetics - Dressing in place over midline DM 2 with hyperglycemia - Insuli gtt - follow BS closely Adrenal insufficiency -On stress dose steroids Obstructive sleep apnea -BiPAP at night once off vent COPD without exacerbation-chronic hypoxic respiratory failure with baseline 2 L nasal cannula -DuoNeb's 4 times daily -Pulmonary hygiene -Continue oxygen therapy HLD - statin DecompensatedCompensated systolic congestive heart failure -Lasix on hold due to worsening renal function Chronic: Hypothyroidism Coronary artery disease Neuropathy Chronic anemia History of pancreatic neuroendocrine tumor HTN Recent group B strep bacteremia DVT: SCDS as plan is for surgery today Transferred to ICU A total of 45 minutes of care spent on this patient Direct contact: Dr. Nichols, Dr. Kelley
[2019-03-07 16:39] LABS: Glucose,Whole Blood 456 mg/dL (75-99)
[2019-03-07 17:12] LABS: Glucose,Whole Blood 430 mg/dL (75-99)
[2019-03-07 17:21] LABS: Hepatitis B Surface AB- Quant 3.5 mIU/mL
[2019-03-07 18:39] LABS: Glucose,Whole Blood 443 mg/dL (75-99)
[2019-03-07] MEDS: HEPARIN SODIUM,PORCINE 5,000 UNIT/ML 1 ML VIAL SQ SCH (19:01)
[2019-03-07 19:17] LABS: Glucose,Whole Blood 431 mg/dL (75-99)
[2019-03-07 20:05] LABS: Glucose,Whole Blood 420 mg/dL (75-99)
[2019-03-07 21:13] LABS: Glucose,Whole Blood 419 mg/dL (75-99)
[2019-03-07] MEDS: LEVOTHYROXINE 50 MCG TAB PO SCH (21:34)
[2019-03-07] MEDS: MONTELUKAST 10 MG TAB PO SCH (21:34)
[2019-03-07] MEDS: INSULIN DETEMIR (LEVEMIR) 100 UNIT/ML SYR SQ SCH (21:55)
[2019-03-07 22:00] LABS: Glucose,Whole Blood 393 mg/dL (75-99)
[2019-03-07 23:17] LABS: Glucose,Whole Blood 398 mg/dL (75-99)
[2019-03-08 00:05] LABS: Glucose,Whole Blood 398 mg/dL (75-99)
[2019-03-08] MEDS: SODIUM CHLORIDE 0.9% 150 ML with VASOPRESSIN 60 UNIT IV SCH ×4 (00:14→22:28)
[2019-03-08] MEDS: ARTIFICIAL TEARS-HYPROMELLOSE DROPS 15 ML BTL BOTH EYES SCH ×7 (00:24→23:40)
[2019-03-08] MEDS: HEPARIN SODIUM,PORCINE 5,000 UNIT/ML 1 ML VIAL SQ SCH ×4 (00:24→23:40)
[2019-03-08] MEDS: HYDROCORTISONE SUCCINATE 100 MG/2 ML VIAL IV SCH ×4 (00:24→23:39)
[2019-03-08] MEDS: VANCOMYCIN 1,750 MG in SODIUM CHLORIDE 0.9% 500 ML 500 ML IVPB SCH (00:25)
[2019-03-08 01:05] LABS: Glucose,Whole Blood 398 mg/dL (75-99)
[2019-03-08] MEDS: INSULIN REGULAR 100 UNIT in SODIUM CHLORIDE 0.9% 100 ML IV SCH ×10 (01:05→20:27)
[2019-03-08 02:06] LABS: ABG Base Excess -11.3 mmol/L; ABG HCO3 18 mmol/L (21-25); ABG Oxygen Saturation 96.6 % (94-97); ABG PCO2 50 mmHg (35-45); ABG PO2 98 mmHg (83-108); ABG TCO2 19 mmol/L (19-24); Allen Test Performed? Yes
[2019-03-08 02:07] LABS: ABG PH 7.15 (7.35-7.45)
[2019-03-08 02:10] LABS: Glucose,Whole Blood 387 mg/dL (75-99)
[2019-03-08] MEDS ORDERED: SODIUM BICARB 8.4% 50 ML SYR (1 MEQ/ML) IV STA (02:48)
[2019-03-08 03:05] LABS: Glucose,Whole Blood 362 mg/dL (75-99)
[2019-03-08 04:06] LABS: Glucose,Whole Blood 352 mg/dL (75-99)
[2019-03-08] MEDS: NOREPINEPHRINE 32 MG in SODIUM CHLORIDE 0.9% 218 ML IV SCH ×2 (04:10→22:42)
[2019-03-08 04:22] LABS: Anisocytosis Slight; HCT 24.4 % (39.0-53.0); HGB 7.4 gm/dL (13.0-17.5); Hypochromasia Marked; MCH 27.2 pg (25.0-35.0); MCHC 30.3 g/dL (31.0-37.0); MCV 89.9 fL (80.0-100.0); Mean Platelet Volume 12.6; Poikilocytosis Slight; RBC 2.71 m/uL (4.30-5.90); RDW 18.6 % (11.5-15.5)
[2019-03-08 04:26] LABS: INR 2.4 (<1.2); Partial Thromboplastin Time 31.7 sec (22.0-30.0); Prothrombin Time 23.2 sec (9.0-12.0)
[2019-03-08 04:42] LABS: Magnesium 1.8 mg/dL (1.6-2.3); Phosphorus 7.6 mg/dL (2.5-4.5); Potassium 4.4 mmol/L (3.5-5.1)
[2019-03-08 04:50] LABS: Calcium 5.7 mg/dL (8.4-10.2)
[2019-03-08 04:51] LABS: Band Neutrophils % 42 %; Metamyelocytes % 2 %; Neutrophils % (M) 56 %; Nucleated Red Blood Cells 1 /100 WBC (0-0); Total Cells Counted 200
[2019-03-08 04:53] LABS: Platelet Count 97 k/uL (150-450); Toxic Vacuolation Present
[2019-03-08 04:54] LABS: Large Platelets Present; RBC Fragments Present
[2019-03-08 04:57] LABS: WBC 55.1 k/uL (3.8-10.6)
[2019-03-08 04:58] LABS: Monocytes # (M) 0.55 k/uL (0-1.0)
[2019-03-08 05:10] LABS: Glucose,Whole Blood 319 mg/dL (75-99)
[2019-03-08 06:01] LABS: Glucose,Whole Blood 306 mg/dL (75-99)
[2019-03-08 06:57] LABS: Glucose,Whole Blood 286 mg/dL (75-99)
[2019-03-08 06:59] LABS: ABG Base Excess -5.9 mmol/L; ABG HCO3 22 mmol/L (21-25); ABG Oxygen Saturation 96.1 % (94-97); ABG PCO2 50 mmHg (35-45); ABG PH 7.24 (7.35-7.45); ABG PO2 92 mmHg (83-108); ABG TCO2 23 mmol/L (19-24)
[2019-03-08] MEDS ORDERED: CALCIUM GLUCONATE 1 GM in SODIUM CHLORIDE 0.9% 100 ML IVPB ONE (07:00)
[2019-03-08] MEDS: IPRATROPIUM-ALBUTEROL 3 ML NEB INHALATION SCH ×5 (07:45→19:07)
[2019-03-08 08:14] LABS: Glucose,Whole Blood 254 mg/dL (75-99)
[2019-03-08] MEDS: DOCUSATE 100 MG CAP PO SCH ×2 (08:15→20:42)
[2019-03-08] MEDS: BISACODYL 10 MG SUPP RECTAL SCH (08:15)
[2019-03-08] MEDS: CHLORHEXIDINE GLUCONATE 15 ML CUP MUCOUS MEM SCH ×2 (08:18→20:42)
[2019-03-08] MEDS: MEROPENEM 1 GM in SODIUM CHLORIDE 0.9% 100 ML IVPB SCH ×2 (08:18→20:41)
[2019-03-08] MEDS: SODIUM CHLORIDE 0.45% 1,000 ML with SODIUM BICARB (1 MEQ/ML) 150 ML IV SCH ×6 (08:19→23:02)
[2019-03-08] MEDS: PANTOPRAZOLE 40 MG/10 ML VIAL IVP SCH ×2 (08:19→20:42)
[2019-03-08] MEDS: 1: PARENTERAL ELECTROLYTES 20 ML in AMINO ACID 4.25%-D10W 1,000 ML 2: PARENTERAL ELECTR IV SCH ×4 (08:20)
[2019-03-08] MEDS ORDERED: DEXTROSE 5% IN WATER 100 ML with AMIODARONE 150 MG IV ONE (08:33)
--- NOTE | 2019-03-08 08:50 | ECHOF ---
Referral Reason:septic shock MEASUREMENTS -------- HEIGHT: 165.1 cm WEIGHT: 106.6 kg BP: IVSd: 1.6 cm (0.6 - 1.1) LVIDd: 5.1 cm (3.9 - 5.3) LVPWd: 1.3 cm (0.6 - 1.1) IVSs: 1.7 cm LVIDs: 4.5 cm LVPWs: 1.5 cm Ao Diam: 2.8 cm (2.0 - 3.7) AV Cusp: 1.7 cm (1.5 - 2.6) LA Diam: 3.4 cm (2.7 - 3.8) MV EXCURSION: 20.824 mm (> 18.000) MV EF SLOPE: 124 mm/s (70 - 150) EPSS: 2.6 cm MV E Javy: 0.85 m/s MV DecT: 232 ms MV A Javy: 0.46 m/s MV E/A Ratio: 1.84 RAP: 5.00 mmHg RVSP: 16.30 mmHg FINDINGS -------- Sinus rhythm. This was a technically difficult study with suboptimal views. Previous cabg The left ventricular size is normal. There is moderate concentric left ventricular hypertrophy. T here is severe global hypokinesis of LV . Overall left ventricular systolic function is moderate-se verely impaired with, an EF between 30 - 35 %. The RV was not well visualized. The left atrial size is normal. The right atrial size is normal. Lumason used The aortic valve is trileaflet and appears structurally normal. Mild mitral regurgitation is present. Mild tricuspid regurgitation present. There is no evidence of pulmonary hypertension. The right v entricular systolic pressure, as measured by Doppler, is 16.30mmHg. The pulmonic valve was not well visualized. The aortic root size is normal. IVC Not well visulized. There is no pericardial effusion. CONCLUSIONS -------- 1. Sinus rhythm. 2. This was a technically difficult study with suboptimal views. 3. Previous cabg 4. The left ventricular size is normal. 5. There is moderate concentric left ventricular hypertrophy. 6. There is severe global hypokinesis of LV . 7. The RV was not well visualized. 8. The left atrial size is normal. 9. The right atrial size is normal. 10. Lumason used 11. The aortic valve is trileaflet and appears structurally normal. 12. Mild mitral regurgitation is present. 13. Mild tricuspid regurgitation present. 14. There is no evidence of pulmonary hypertension. 15. The right ventricular systolic pressure, as measured by Doppler, is 16.30mmHg. 16. The pulmonic valve was not well visualized. 17. The aortic root size is normal. 18. IVC Not well visulized. 19. There is no pericardial effusion. BOTTLE CASER: Keira Seo RDCS
[2019-03-08 09:17] LABS: Glucose,Whole Blood 240 mg/dL (75-99)
[2019-03-08 09:41] LABS: Albumin 1.5 g/dL (3.5-5.0); Total Protein 3.5 g/dL (6.3-8.2)
[2019-03-08] MEDS ORDERED: HYDROmorphone 1 MG/ML 1 ML SYRINGE IVP SCH (09:45)
[2019-03-08 10:12] LABS: Glucose,Whole Blood 197 mg/dL (75-99)
--- NOTE | 2019-03-08 10:30 | XR ---
EXAMINATION TYPE: XR chest 1V DATE OF EXAM: 03/08/2019 HISTORY: ARDs. REFERENCE: Previous study dated 03/07/2019. FINDINGS: Patient has had a previous ACDF in the lower cervical spine. There has been a midline houser otomy. The patient is ET tube and NG tube remain in place, unchanged in appearance. There continues to be bilateral infiltrates allowing for technique, I do not believe these are change d significantly. The heart is mildly enlarged. No definite pleural fluid is seen. IMPRESSION: CONTINUING BILATERAL ALVEOLAR AIRSPACE DISEASE. I DO NOT BELIEVE THIS IS CHANGED SIGNIFICANTLY FROM P REVIOUS.
--- NOTE | 2019-03-08 11:09 | P.PN ---
Subjective Progress Note Date: 03/08/19 Seen and examined for the follow-up of acute kidney injury. Tolerated dialysis yesterday 2 hours. Atrial fibrillation with RVR today, decreased blood flow to 200. Levo fed requirements went up from 40-60 mics during dialysis. Objective - Vital Signs Vital signs: Vital Signs Temp 97.7 F 03/08/19 08:00 Pulse 110 H 03/08/19 10:00 Resp 34 H 03/08/19 10:00 BP 100/68 03/08/19 09:30 Pulse Ox 93 L 03/08/19 04:30 Intake & Output 03/07/19 03/08/19 03/08/19 18:59 06:59 18:59 Intake Total 3869.977 7371.575 1325.691 Output Total 575 981 415 Balance 3294.977 6390.575 910.691 Weight 107 kg 112.7 kg Intake: IV 2957 5038.0 885.0 Dextrose 5% in Water 1, 1500 000 ml @ 150 mls/hr IV . Q7H40M [place] with Sodium Bicarb (1 Meq/ml) 150 ml Rx#:[id number] Meropenem 1 gm In Sodium 100 200 Chloride 0.9% 100 ml @ 200 mls/hr IVPB Q12HR [facility] Rx#:[id number] Mvi, Adult No.4 with Vit 1045 950.0 95.0 K 10 ml Trace (Conc-1Ml/ Dose) 1 ml In Amino Acid 4.25%-D10w+Lytes*E* 1,000 ml @ 95 mls/hr IV .BY DURATION [facility] Rx#: [id number] Parenteral Electrolytes 95.0 20 ml Mvi, Adult No.4 with Vit K 10 ml Trace ( Conc-1Ml/Dose) 1 ml In Amino Acid 4.25%-D10w 1, 000 ml @ 95 mls/hr IV .BY DURATION [facility] Rx#: [id number] Pressure Bags 72 78 15 Sodium Bicarbonate 100 Sodium Chloride 0.45% 1, 1950 600 000 ml @ 150 mls/hr IV . Q7H40M [place] with Sodium Bicarb (1 Meq/ml) 150 ml Rx#:[id number] Sodium Chloride 0.9% @ 20 240 260 80 ml/hr Vancomycin 1,750 mg In 1500 Sodium Chloride 0.9% 500 ml 500 ml @ 167 mls/hr IVPB Q24HR@0800 [place] Rx#: [id number] Intake, IV Titration 082.042 8143.575 440.691 Amount Cisatracurium 200 mg In 138.986 Sodium Chloride 0.9% 180 ml @ 1 MCG/KG/MIN 5.646 mls/hr IV .Q24H [place] Rx#: [id number] Insulin Regular 100 unit 284.719 583.780 183.399 In Sodium Chloride 0.9% 100 ml @ Per Protocol IV .Q0M [place] Rx#:[id number] Norepinephrine 32 mg In 98.701 219.962 Sodium Chloride 0.9% 218 ml @ 0.05 MCG/KG/MIN 2. 205 mls/hr IV .Q24H [place] Rx#:[id number] Parenteral Electrolytes 1529.833 257.292 20 ml In Amino Acid 4.25% -D10w 1,000 ml @ 95 mls/ hr IV .BY DURATION [place] Rx #:[id number] Propofol 1,000 mg In 190.571 Empty Bag 1 bag @ Titrate IV .Q0M [place] Rx#: [id number] Hemodialysis 200 Output: Gastric Drainage 50 Drainage 560 835 350 Right Abdomen 560 835 350 Urine 15 96 65 Other: Voiding Method Indwelling Catheter Indwelling Catheter Indwelling Catheter ABP, PAP, CO, CI - Last Documented Arterial Blood Pressure 105/59 - Exam Intubated on a ventilator S1-S2 heard Decreased breath sounds Edema Leach - Labs CBC & Chem 7: 03/08/19 04:02 03/08/19 04:02 Labs: Abnormal Lab Results - Last 24 Hours (Table) 03/07/19 03/07/19 03/07/19 Range/Units 00:01 11:45 12:25 WBC (3.8-10.6) k/uL RBC (4.30-5.90) m/uL Hgb (13.0-17.5) gm/dL Hct (39.0-53.0) % MCHC (31.0-37.0) g/dL RDW (11.5-15.5) % Plt Count (150-450) k/uL Neutrophils # (Manual) (1.3-7.7) k/uL Metamyelocytes # (Man) (0) k/uL Nucleated RBCs (0-0) /100 WBC PT (9.0-12.0) sec INR (<1.2) APTT (22.0-30.0) sec Fibrinogen (200-500) mg/dL ABG pH <7.00 L* (7.35-7.45) ABG pCO2 50 H (35-45) mmHg ABG HCO3 9 L* (21-25) mmol/L ABG Total CO2 11 L (19-24) mmol/L Chloride (98-107) mmol/L BUN (9-20) mg/dL Creatinine (0.66-1.25) mg/dL Glucose 344 H (74-99) mg/dL POC Glucose (mg/dL) 369 H (75-99) mg/dL Calcium (8.4-10.2) mg/dL Phosphorus (2.5-4.5) mg/dL Total Bilirubin (0.2-1.3) mg/dL AST (17-59) U/L ALT (21-72) U/L Alkaline Phosphatase (38-126) U/L Total Protein (6.3-8.2) g/dL Albumin (3.5-5.0) g/dL 03/07/19 03/07/19 03/07/19 Range/Units 13:07 14:08 15:15 WBC (3.8-10.6) k/uL RBC (4.30-5.90) m/uL Hgb (13.0-17.5) gm/dL Hct (39.0-53.0) % MCHC (31.0-37.0) g/dL RDW (11.5-15.5) % Plt Count (150-450) k/uL Neutrophils # (Manual) (1.3-7.7) k/uL Metamyelocytes # (Man) (0) k/uL Nucleated RBCs (0-0) /100 WBC PT (9.0-12.0) sec INR (<1.2) APTT (22.0-30.0) sec Fibrinogen (200-500) mg/dL ABG pH (7.35-7.45) ABG pCO2 (35-45) mmHg ABG HCO3 (21-25) mmol/L ABG Total CO2 (19-24) mmol/L Chloride (98-107) mmol/L BUN (9-20) mg/dL Creatinine (0.66-1.25) mg/dL Glucose (74-99) mg/dL POC Glucose (mg/dL) 413 H 433 H 448 H (75-99) mg/dL Calcium (8.4-10.2) mg/dL Phosphorus (2.5-4.5) mg/dL Total Bilirubin (0.2-1.3) mg/dL AST (17-59) U/L ALT (21-72) U/L Alkaline Phosphatase (38-126) U/L Total Protein (6.3-8.2) g/dL Albumin (3.5-5.0) g/dL 03/07/19 03/07/19 03/07/19 Range/Units 15:18 16:11 17:10 WBC (3.8-10.6) k/uL RBC (4.30-5.90) m/uL Hgb (13.0-17.5) gm/dL Hct (39.0-53.0) % MCHC (31.0-37.0) g/dL RDW (11.5-15.5) % Plt Count (150-450) k/uL Neutrophils # (Manual) (1.3-7.7) k/uL Metamyelocytes # (Man) (0) k/uL Nucleated RBCs (0-0) /100 WBC PT (9.0-12.0) sec INR (<1.2) APTT (22.0-30.0) sec Fibrinogen (200-500) mg/dL ABG pH (7.35-7.45) ABG pCO2 (35-45) mmHg ABG HCO3 (21-25) mmol/L ABG Total CO2 (19-24) mmol/L Chloride (98-107) mmol/L BUN (9-20) mg/dL Creatinine (0.66-1.25) mg/dL Glucose (74-99) mg/dL POC Glucose (mg/dL) 413 H 456 H 430 H (75-99) mg/dL Calcium (8.4-10.2) mg/dL Phosphorus (2.5-4.5) mg/dL Total Bilirubin (0.2-1.3) mg/dL AST (17-59) U/L ALT (21-72) U/L Alkaline Phosphatase (38-126) U/L Total Protein (6.3-8.2) g/dL Albumin (3.5-5.0) g/dL 03/07/19 03/07/19 03/07/19 Range/Units 18:12 18:30 19:13 WBC (3.8-10.6) k/uL RBC (4.30-5.90) m/uL Hgb (13.0-17.5) gm/dL Hct (39.0-53.0) % MCHC (31.0-37.0) g/dL RDW (11.5-15.5) % Plt Count (150-450) k/uL Neutrophils # (Manual) (1.3-7.7) k/uL Metamyelocytes # (Man) (0) k/uL Nucleated RBCs (0-0) /100 WBC PT (9.0-12.0) sec INR (<1.2) APTT (22.0-30.0) sec Fibrinogen (200-500) mg/dL ABG pH (7.35-7.45) ABG pCO2 (35-45) mmHg ABG HCO3 (21-25) mmol/L ABG Total CO2 (19-24) mmol/L Chloride (98-107) mmol/L BUN (9-20) mg/dL Creatinine (0.66-1.25) mg/dL Glucose 380 H (74-99) mg/dL POC Glucose (mg/dL) 443 H 431 H (75-99) mg/dL Calcium (8.4-10.2) mg/dL Phosphorus (2.5-4.5) mg/dL Total Bilirubin (0.2-1.3) mg/dL AST (17-59) U/L ALT (21-72) U/L Alkaline Phosphatase (38-126) U/L Total Protein (6.3-8.2) g/dL Albumin (3.5-5.0) g/dL 03/07/19 03/07/19 03/07/19 Range/Units 20:01 21:10 21:56 WBC (3.8-10.6) k/uL RBC (4.30-5.90) m/uL Hgb (13.0-17.5) gm/dL Hct (39.0-53.0) % MCHC (31.0-37.0) g/dL RDW (11.5-15.5) % Plt Count (150-450) k/uL Neutrophils # (Manual) (1.3-7.7) k/uL Metamyelocytes # (Man) (0) k/uL Nucleated RBCs (0-0) /100 WBC PT (9.0-12.0) sec INR (<1.2) APTT (22.0-30.0) sec Fibrinogen (200-500) mg/dL ABG pH (7.35-7.45) ABG pCO2 (35-45) mmHg ABG HCO3 (21-25) mmol/L ABG Total CO2 (19-24) mmol/L Chloride (98-107) mmol/L BUN (9-20) mg/dL Creatinine (0.66-1.25) mg/dL Glucose (74-99) mg/dL POC Glucose (mg/dL) 420 H 419 H 393 H (75-99) mg/dL Calcium (8.4-10.2) mg/dL Phosphorus (2.5-4.5) mg/dL Total Bilirubin (0.2-1.3) mg/dL AST (17-59) U/L ALT (21-72) U/L Alkaline Phosphatase (38-126) U/L Total Protein (6.3-8.2) g/dL Albumin (3.5-5.0) g/dL 03/07/19 03/07/19 03/08/19 Range/Units 22:00 23:01 00:01 WBC (3.8-10.6) k/uL RBC (4.30-5.90) m/uL Hgb (13.0-17.5) gm/dL Hct (39.0-53.0) % MCHC (31.0-37.0) g/dL RDW (11.5-15.5) % Plt Count (150-450) k/uL Neutrophils # (Manual) (1.3-7.7) k/uL Metamyelocytes # (Man) (0) k/uL Nucleated RBCs (0-0) /100 WBC PT (9.0-12.0) sec INR (<1.2) APTT (22.0-30.0) sec Fibrinogen (200-500) mg/dL ABG pH (7.35-7.45) ABG pCO2 (35-45) mmHg ABG HCO3 (21-25) mmol/L ABG Total CO2 (19-24) mmol/L Chloride (98-107) mmol/L BUN (9-20) mg/dL Creatinine (0.66-1.25) mg/dL Glucose 349 H (74-99) mg/dL POC Glucose (mg/dL) 398 H 398 H (75-99) mg/dL Calcium (8.4-10.2) mg/dL Phosphorus (2.5-4.5) mg/dL Total Bilirubin (0.2-1.3) mg/dL AST (17-59) U/L ALT (21-72) U/L Alkaline Phosphatase (38-126) U/L Total Protein (6.3-8.2) g/dL Albumin (3.5-5.0) g/dL 03/08/19 03/08/19 03/08/19 Range/Units 01:01 01:54 02:02 WBC (3.8-10.6) k/uL RBC (4.30-5.90) m/uL Hgb (13.0-17.5) gm/dL Hct (39.0-53.0) % MCHC (31.0-37.0) g/dL RDW (11.5-15.5) % Plt Count (150-450) k/uL Neutrophils # (Manual) (1.3-7.7) k/uL Metamyelocytes # (Man) (0) k/uL Nucleated RBCs (0-0) /100 WBC PT (9.0-12.0) sec INR (<1.2) APTT (22.0-30.0) sec Fibrinogen (200-500) mg/dL ABG pH 7.15 L* (7.35-7.45) ABG pCO2 50 H (35-45) mmHg ABG HCO3 18 L (21-25) mmol/L ABG Total CO2 (19-24) mmol/L Chloride (98-107) mmol/L BUN (9-20) mg/dL Creatinine (0.66-1.25) mg/dL Glucose (74-99) mg/dL POC Glucose (mg/dL) 398 H 387 H (75-99) mg/dL Calcium (8.4-10.2) mg/dL Phosphorus (2.5-4.5) mg/dL Total Bilirubin (0.2-1.3) mg/dL AST (17-59) U/L ALT (21-72) U/L Alkaline Phosphatase (38-126) U/L Total Protein (6.3-8.2) g/dL Albumin (3.5-5.0) g/dL 03/08/19 03/08/19 03/08/19 Range/Units 03:01 04:01 04:02 WBC (3.8-10.6) k/uL RBC (4.30-5.90) m/uL Hgb (13.0-17.5) gm/dL Hct (39.0-53.0) % MCHC (31.0-37.0) g/dL RDW (11.5-15.5) % Plt Count (150-450) k/uL Neutrophils # (Manual) (1.3-7.7) k/uL Metamyelocytes # (Man) (0) k/uL Nucleated RBCs (0-0) /100 WBC PT (9.0-12.0) sec INR (<1.2) APTT (22.0-30.0) sec Fibrinogen (200-500) mg/dL ABG pH (7.35-7.45) ABG pCO2 (35-45) mmHg ABG HCO3 (21-25) mmol/L ABG Total CO2 (19-24) mmol/L Chloride 97 L (98-107) mmol/L BUN 38 H (9-20) mg/dL Creatinine 2.53 H (0.66-1.25) mg/dL Glucose 298 H (74-99) mg/dL POC Glucose (mg/dL) 362 H 352 H (75-99) mg/dL Calcium 5.7 L* (8.4-10.2) mg/dL Phosphorus 7.6 H (2.5-4.5) mg/dL Total Bilirubin 4.0 H (0.2-1.3) mg/dL AST 05181 H (17-59) U/L ALT 4530 H (21-72) U/L Alkaline Phosphatase 262 H (38-126) U/L Total Protein 3.5 L (6.3-8.2) g/dL Albumin 1.5 L (3.5-5.0) g/dL 03/08/19 03/08/19 03/08/19 Range/Units 04:02 04:02 05:06 WBC 55.1 H* (3.8-10.6) k/uL RBC 2.71 L (4.30-5.90) m/uL Hgb 7.4 L (13.0-17.5) gm/dL Hct 24.4 L (39.0-53.0) % MCHC 30.3 L (31.0-37.0) g/dL RDW 18.6 H (11.5-15.5) % Plt Count 97 L (150-450) k/uL Neutrophils # (Manual) 53.90 H (1.3-7.7) k/uL Metamyelocytes # (Man) 1.10 H (0) k/uL Nucleated RBCs 1 H (0-0) /100 WBC PT 23.2 H (9.0-12.0) sec INR 2.4 H (<1.2) APTT 31.7 H (22.0-30.0) sec Fibrinogen 198 L (200-500) mg/dL ABG pH (7.35-7.45) ABG pCO2 (35-45) mmHg ABG HCO3 (21-25) mmol/L ABG Total CO2 (19-24) mmol/L Chloride (98-107) mmol/L BUN (9-20) mg/dL Creatinine (0.66-1.25) mg/dL Glucose (74-99) mg/dL POC Glucose (mg/dL) 319 H (75-99) mg/dL Calcium (8.4-10.2) mg/dL Phosphorus (2.5-4.5) mg/dL Total Bilirubin (0.2-1.3) mg/dL AST (17-59) U/L ALT (21-72) U/L Alkaline Phosphatase (38-126) U/L Total Protein (6.3-8.2) g/dL Albumin (3.5-5.0) g/dL 03/08/19 03/08/19 03/08/19 Range/Units 05:58 06:54 06:54 WBC (3.8-10.6) k/uL RBC (4.30-5.90) m/uL Hgb (13.0-17.5) gm/dL Hct (39.0-53.0) % MCHC (31.0-37.0) g/dL RDW (11.5-15.5) % Plt Count (150-450) k/uL Neutrophils # (Manual) (1.3-7.7) k/uL Metamyelocytes # (Man) (0) k/uL Nucleated RBCs (0-0) /100 WBC PT (9.0-12.0) sec INR (<1.2) APTT (22.0-30.0) sec Fibrinogen (200-500) mg/dL ABG pH 7.24 L (7.35-7.45) ABG pCO2 50 H (35-45) mmHg ABG HCO3 (21-25) mmol/L ABG Total CO2 (19-24) mmol/L Chloride (98-107) mmol/L BUN (9-20) mg/dL Creatinine (0.66-1.25) mg/dL Glucose (74-99) mg/dL POC Glucose (mg/dL) 306 H 286 H (75-99) mg/dL Calcium (8.4-10.2) mg/dL Phosphorus (2.5-4.5) mg/dL Total Bilirubin (0.2-1.3) mg/dL AST (17-59) U/L ALT (21-72) U/L Alkaline Phosphatase (38-126) U/L Total Protein (6.3-8.2) g/dL Albumin (3.5-5.0) g/dL 03/08/19 03/08/19 03/08/19 Range/Units 08:12 09:14 10:08 WBC (3.8-10.6) k/uL RBC (4.30-5.90) m/uL Hgb (13.0-17.5) gm/dL Hct (39.0-53.0) % MCHC (31.0-37.0) g/dL RDW (11.5-15.5) % Plt Count (150-450) k/uL Neutrophils # (Manual) (1.3-7.7) k/uL Metamyelocytes # (Man) (0) k/uL Nucleated RBCs (0-0) /100 WBC PT (9.0-12.0) sec INR (<1.2) APTT (22.0-30.0) sec Fibrinogen (200-500) mg/dL ABG pH (7.35-7.45) ABG pCO2 (35-45) mmHg ABG HCO3 (21-25) mmol/L ABG Total CO2 (19-24) mmol/L Chloride (98-107) mmol/L BUN (9-20) mg/dL Creatinine (0.66-1.25) mg/dL Glucose (74-99) mg/dL POC Glucose (mg/dL) 254 H 240 H 197 H (75-99) mg/dL Calcium (8.4-10.2) mg/dL Phosphorus (2.5-4.5) mg/dL Total Bilirubin (0.2-1.3) mg/dL AST (17-59) U/L ALT (21-72) U/L Alkaline Phosphatase (38-126) U/L Total Protein (6.3-8.2) g/dL Albumin (3.5-5.0) g/dL Microbiology - Last 24 Hours (Table) 03/06/19 11:03 Gram Stain - Final Sputum Sputum Culture - Final Escherichia coli 03/01/19 17:47 Blood Culture - Final Blood No Growth after 144 hours 03/06/19 09:50 Blood Culture - Preliminary Blood No Growth after 24 hours 03/06/19 12:08 Gram Stain - Preliminary Other - Other Wound Culture - Preliminary Gram Neg Bacilli Assessment and Plan Assessment: #1 oliguric acute kidney injury secondary to ischemic ATN from septic shock. #2 septic shock secondary to intra-abdominal abscess. #3 vent dependent respiratory failure #4 metabolic and respiratory acidosis #5 hypocalcemia secondary to hyperphosphatemia. #6 multiorgan dysfunction with shock liver #7 status post small bowel resection secondary to obstruction. Plan: #1 started hemodialysis yesterday 2 hours yesterday and 2 hours today.. Plan again tomorrow. #2 stop bicarb drip. As he is on dialysis and predominant respiratory acidosis #3 avoid nephrotoxic agents and hypotensive episodes #4 ICU care #5 antibiotics for sepsis #6 guarded prognosis with multiple comorbid conditions and organ dysfunction.
[2019-03-08 11:21] LABS: Glucose,Whole Blood 159 mg/dL (75-99)
[2019-03-08 11:25] LABS: ABG Base Excess -5.8 mmol/L; ABG HCO3 22 mmol/L (21-25); ABG PCO2 52 mmHg (35-45); ABG PH 7.23 (7.35-7.45); ABG PO2 94 mmHg (83-108); ABG TCO2 23 mmol/L (19-24)
[2019-03-08 11:27] LABS: Allen Test Performed? NO
--- NOTE | 2019-03-08 11:30 | P.PN ---
Subjective Progress Note Date: 03/08/19 Principal diagnosis: Acute hypoxic respiratory failure, aspiration pneumonia, ARDS multi-organ system failure. History of present illness: This is a 58-year-old white male who was initially admitted on 02/23/2019, patient was admitted with mostly clinical picture of bowel obstruction. Patient was seen by surgery on consultation, and since he did not improve with conservative measures, patient underwent expiratory laparotomy with repair of incisional hernia, partial omentectomy, lysis of adhesions, right colectomy, small bowel resection secondary to small bowel obstruction on 02/27, and has been recovering on a regular medical floor. His nasogastric tube has been discontinued on 03/03, and the patient has been doing fairly well until this morning patient was noted to have significant increase in his WBC count, patient also spiked a temp of 103, rapid response team responded to the patient, and he was noted to be tachycardic, in atrial fibrillation with RVR, heart rate was in the 150 range. Patient was not hypotensive however his O2 saturation was marginal at 90%. Patient was also noted to be lethargic, unable to wake up and speak. He was confused, he was given fluids, arrangements were made to transfer the patient to the ICU. And surgery was reconsulted on the patient. I did evaluate the patient as soon as he arrived to the ICU, and clearly he was in extreme respiratory distress. Recommended immediate intubation which was done by THEAT[employer] PROFESSOR, in the meantime I went ahead and placed a right femoral triple-lumen catheter, and an arterial line was also placed. I also ordered amiodarone bolus and amiodarone drip. Stabilize the patient enough to get exploratory laparotomy in the operating room. However it is worth mentioning upon intubation, the patient was noted to have significant amount of stomach secretions bilious material in his airways which was suctioned. Patient was connected to mechanical ventilation. And his nasogastric tube showed significant amount of bilious material in the stomach. Shortly after he was stabilized, patient was sent to the OR, underwent drainage of intraperitoneal seroma/hematoma. There w as no purulent material in the abdominal cavity there was no evidence of perforation or rupture. There was no evidence of any leak at the anastomosis site. His abdominal cavity was irrigated with 3 L of normal saline and a TATE drain was placed in the right paracolic gutter brought through separate stab incision. Patient was then transferred back to the ICU. Upon arrival to the ICU again, patient was noted to be barely saturating in the 90% range and his PEEP was increased at 12, FiO2 100%, assist control rate was 20, volume was 500, and I have arranged for the patient to be placed on Nimbex since he is going to require significantly higher PEEP. I believe the patient clearly aspirated, and he is a great set up to develop ARDS. Patient will be given broad-spectrum antibiotics, I will start him on steroids, and I will monitor the patient closely in the intensive care unit. Obviously the patient is extremely critically ill at this point. ABG upon intubating the patient before he went to the or showed a pO2 of 155 pCO2 of 38 pH of 7.35. ABG before intubation showed a pO2 of 51 pCO2 of 33 pH of 7.49. Follow-up ABG post exploratory laparotomy is pending. However his O2 saturation is ranging between mid 80s to the 90% range Patient was reevaluated today on 03/07/2019, patient underwent exploratory laparotomy yesterday and since he came back from the OR, has been doing extrem lauren poor. He developed worsening ARDS, requiring high FiO2 and high PEEP. Developed profound hypotension requiring norepinephrine at 40 mcg/m, and he is on vasopressin being titrated presently at 0.03 units. His chest x-ray is significantly worsening his liver enzymes are much worse his kidney functioning is worsening and he is basically anuric with significant kidney injury. This is basically acute tubular necrosis secondary to hypotension. Patient is presently on the following ventilator settings tidal volume of 500 assist control rate of 34 FiO2 of 100% and PEEP is 16. ABG showed a pO2 of 79 pCO2 of 50 pH of less than 7.0. Patient received significant amount of sodium bicarb yesterday, remains on a bicarb drip at 1 50 mL per hour. His potassium is 5.5 BUN is 36 creatinine 2.7. Liver enzymes/transaminases skyrocketed with AST of 14,600, Alt of over 4000 alkaline phosphatase is 140. Hemoglobin is 7.3 WBC count is 46.7. Patient is on multiple drips including Nimbex amiodarone which is presently on hold propofol vasopressin and norepinephrine bicarb and he is also on TPN. Patient is going to have a dialysis catheter, and nephrology will attempt to dialyze the patient today. is at bedside, and she was updated on his condition. She is agreeable to DO NOT RESUSCITATE CODE STATUS in case patient develops cardiac arrest. However still hoping that patient might improve with what we are doing at this point. She was made aware that his prognosis is extremely poor and guarded, and mortality is over 95% at this point. Patient was reevaluated today on 03/08/2019, remains on mechanical ventilation, his ventilator settings are assist control rate of 34, FiO2 is 90%, PEEP is 16, tidal volume is 500. Patient remains sedated, paralyzed, on Nimbex, he is also on norepinephrine at 0.4 mcg/kg/m, on propofol at 25 mcg/kg/m, added Dilaudid 1 mg IV push every 3 hours around the clock,vasopressin at 0.03 units per minutes. blood pressure remains marginal in spite of norepinephrine and vasopressin . Patient is having another hemodialysis session this morning, he tolerated his session of hemodialysis yesterday quite well. Did require going up on norepinephrine.chest x-ray is basically the same showing bilateral alveolar infiltrates in both lungs relatively unchanged compared to chest x-ray the day prior.microbiology is showing negative blood cultures so far, however his sputum is positive for E. coli, and his peritoneal fluid is positive for gram-negative bacilli. The peritoneal fluid is labeled as 1 culture, however I will try to confirm whether this is truly a wound culture or this is actually peritoneal fluid from the surgery he had by Dr. Nichols. In the meantime I have requested sending the fluid from the TATE drain for cultures.CBC is showing significant leukocytosis and the risk is 55.1 hemoglobin is 7.4.ABG this morning showed a pO2 of 92 pCO2 of 50 pH of 7.24.liver enzymes remain significantly elevated with AST over 12,500, and ALT 4500. Alkaline phosphatase is 262. Total bilirubin is 4.0 compared to 2.4 yesterday.obviously the patient remains extremely critically ill, and continues to demonstrate multi-organ dysfunction, prognosis obviously remains extremely poor and guarded. Objective - Vital Signs Vital signs: Vital Signs Temp 97.7 F 03/08/19 08:00 Pulse 105 H 03/08/19 11:17 Resp 34 H 03/08/19 11:17 BP 100/68 03/08/19 09:30 Pulse Ox 93 L 03/08/19 04:30 Intake & Output 03/07/19 03/08/19 03/08/19 18:59 06:59 18:59 Intake Total 3869.977 7371.575 1325.691 Output Total 575 981 415 Balance 3294.977 6390.575 910.691 Weight 107 kg 112.7 kg Intake: IV 2957 5038.0 885.0 Dextrose 5% in Water 1, 1500 000 ml @ 150 mls/hr IV . Q7H40M [place] with Sodium Bicarb (1 Meq/ml) 150 ml Rx#:[id number] Meropenem 1 gm In Sodium 100 200 Chloride 0.9% 100 ml @ 200 mls/hr IVPB Q12HR [facility] Rx#:[id number] Mvi, Adult No.4 with Vit 1045 950.0 95.0 K 10 ml Trace (Conc-1Ml/ Dose) 1 ml In Amino Acid 4.25%-D10w+Lytes*E* 1,000 ml @ 95 mls/hr IV .BY DURATION [facility] Rx#: [id number] Parenteral Electrolytes 95.0 20 ml Mvi, Adult No.4 with Vit K 10 ml Trace ( Conc-1Ml/Dose) 1 ml In Amino Acid 4.25%-D10w 1, 000 ml @ 95 mls/hr IV .BY DURATION [facility] Rx#: [id number] Pressure Bags 72 78 15 Sodium Bicarbonate 100 Sodium Chloride 0.45% 1, 1950 600 000 ml @ 150 mls/hr IV . Q7H40M [place] with Sodium Bicarb (1 Meq/ml) 150 ml Rx#:[id number] Sodium Chloride 0.9% @ 20 240 260 80 ml/hr Vancomycin 1,750 mg In 1500 Sodium Chloride 0.9% 500 ml 500 ml @ 167 mls/hr IVPB Q24HR@0800 [facility] Rx#: [id number] Intake, IV Titration 327.312 4706.575 440.691 Amount Cisatracurium 200 mg In 138.986 Sodium Chloride 0.9% 180 ml @ 1 MCG/KG/MIN 5.646 mls/hr IV .Q24H [facility] Rx#: [id number] Insulin Regular 100 unit 284.719 583.780 183.399 In Sodium Chloride 0.9% 100 ml @ Per Protocol IV .Q0M [facility] Rx#:[id number] Norepinephrine 32 mg In 98.701 219.962 Sodium Chloride 0.9% 218 ml @ 0.05 MCG/KG/MIN 2. 205 mls/hr IV .Q24H [place] Rx#:[id number] Parenteral Electrolytes 1529.833 257.292 20 ml In Amino Acid 4.25% -D10w 1,000 ml @ 95 mls/ hr IV .BY DURATION [facility] Rx #:[id number] Propofol 1,000 mg In 190.571 Empty Bag 1 bag @ Titrate IV .Q0M [place] Rx#: [id number] Hemodialysis 200 Output: Gastric Drainage 50 Drainage 560 835 350 Right Abdomen 560 835 350 Urine 15 96 65 Other: Voiding Method Indwelling Catheter Indwelling Catheter Indwelling Catheter ABP, PAP, CO, CI - Last Documented Arterial Blood Pressure 105/59 - Exam General: Revealed a 58-year-old white male, obese, on mechanical ventilation, sedated and paralyzed. Derm: Warm, dry skin, no rashes. Head: Normocephalic, atraumatic. Eyes: PERRLA, EOMI, no icterus. Mouth: Dry mucous membranes noted, endotracheal tube is intact. Orogastric tube is intact. Cardiovascular: Normal S1 and S2 distant S1 and S2, no S3 gallop., Lungs: Crackles and rhonchi noted bilaterally. Symmetrical chest expansion. No chest wall tenderness. Abdominal: Abdomen is noted to be distended, postsurgical, no bowel sounds. Ext: No clubbing, 2+ + edema, no cyanosis.mottling of the skin noted around the knees. Neuro: Cannot be assessed, patient is sedated, paralyzed, on mechanical ventilation. Psych: Cannot be assessed. - Labs CBC & Chem 7: 03/08/19 04:02 03/08/19 04:02 Labs: Abnormal Lab Results - Last 24 Hours (Table) 03/07/19 03/07/19 03/07/19 Range/Units 00:01 11:45 12:25 WBC (3.8-10.6) k/uL RBC (4.30-5.90) m/uL Hgb (13.0-17.5) gm/dL Hct (39.0-53.0) % MCHC (31.0-37.0) g/dL RDW (11.5-15.5) % Plt Count (150-450) k/uL Neutrophils # (Manual) (1.3-7.7) k/uL Metamyelocytes # (Man) (0) k/uL Nucleated RBCs (0-0) /100 WBC PT (9.0-12.0) sec INR (<1.2) APTT (22.0-30.0) sec Fibrinogen (200-500) mg/dL ABG pH <7.00 L* (7.35-7.45) ABG pCO2 50 H (35-45) mmHg ABG HCO3 9 L* (21-25) mmol/L ABG Total CO2 11 L (19-24) mmol/L Chloride (98-107) mmol/L BUN (9-20) mg/dL Creatinine (0.66-1.25) mg/dL Glucose 344 H (74-99) mg/dL POC Glucose (mg/dL) 369 H (75-99) mg/dL Calcium (8.4-10.2) mg/dL Phosphorus (2.5-4.5) mg/dL Total Bilirubin (0.2-1.3) mg/dL AST (17-59) U/L ALT (21-72) U/L Alkaline Phosphatase (38-126) U/L Total Protein (6.3-8.2) g/dL Albumin (3.5-5.0) g/dL 03/07/19 03/07/19 03/07/19 Range/Units 13:07 14:08 15:15 WBC (3.8-10.6) k/uL RBC (4.30-5.90) m/uL Hgb (13.0-17.5) gm/dL Hct (39.0-53.0) % MCHC (31.0-37.0) g/dL RDW (11.5-15.5) % Plt Count (150-450) k/uL Neutrophils # (Manual) (1.3-7.7) k/uL Metamyelocytes # (Man) (0) k/uL Nucleated RBCs (0-0) /100 WBC PT (9.0-12.0) sec INR (<1.2) APTT (22.0-30.0) sec Fibrinogen (200-500) mg/dL ABG pH (7.35-7.45) ABG pCO2 (35-45) mmHg ABG HCO3 (21-25) mmol/L ABG Total CO2 (19-24) mmol/L Chloride (98-107) mmol/L BUN (9-20) mg/dL Creatinine (0.66-1.25) mg/dL Glucose (74-99) mg/dL POC Glucose (mg/dL) 413 H 433 H 448 H (75-99) mg/dL Calcium (8.4-10.2) mg/dL Phosphorus (2.5-4.5) mg/dL Total Bilirubin (0.2-1.3) mg/dL AST (17-59) U/L ALT (21-72) U/L Alkaline Phosphatase (38-126) U/L Total Protein (6.3-8.2) g/dL Albumin (3.5-5.0) g/dL 03/07/19 03/07/19 03/07/19 Range/Units 15:18 16:11 17:10 WBC (3.8-10.6) k/uL RBC (4.30-5.90) m/uL Hgb (13.0-17.5) gm/dL Hct (39.0-53.0) % MCHC (31.0-37.0) g/dL RDW (11.5-15.5) % Plt Count (150-450) k/uL Neutrophils # (Manual) (1.3-7.7) k/uL Metamyelocytes # (Man) (0) k/uL Nucleated RBCs (0-0) /100 WBC PT (9.0-12.0) sec INR (<1.2) APTT (22.0-30.0) sec Fibrinogen (200-500) mg/dL ABG pH (7.35-7.45) ABG pCO2 (35-45) mmHg ABG HCO3 (21-25) mmol/L ABG Total CO2 (19-24) mmol/L Chloride (98-107) mmol/L BUN (9-20) mg/dL Creatinine (0.66-1.25) mg/dL Glucose (74-99) mg/dL POC Glucose (mg/dL) 413 H 456 H 430 H (75-99) mg/dL Calcium (8.4-10.2) mg/dL Phosphorus (2.5-4.5) mg/dL Total Bilirubin (0.2-1.3) mg/dL AST (17-59) U/L ALT (21-72) U/L Alkaline Phosphatase (38-126) U/L Total Protein (6.3-8.2) g/dL Albumin (3.5-5.0) g/dL 03/07/19 03/07/19 03/07/19 Range/Units 18:12 18:30 19:13 WBC (3.8-10.6) k/uL RBC (4.30-5.90) m/uL Hgb (13.0-17.5) gm/dL Hct (39.0-53.0) % MCHC (31.0-37.0) g/dL RDW (11.5-15.5) % Plt Count (150-450) k/uL Neutrophils # (Manual) (1.3-7.7) k/uL Metamyelocytes # (Man) (0) k/uL Nucleated RBCs (0-0) /100 WBC PT (9.0-12.0) sec INR (<1.2) APTT (22.0-30.0) sec Fibrinogen (200-500) mg/dL ABG pH (7.35-7.45) ABG pCO2 (35-45) mmHg ABG HCO3 (21-25) mmol/L ABG Total CO2 (19-24) mmol/L Chloride (98-107) mmol/L BUN (9-20) mg/dL Creatinine (0.66-1.25) mg/dL Glucose 380 H (74-99) mg/dL POC Glucose (mg/dL) 443 H 431 H (75-99) mg/dL Calcium (8.4-10.2) mg/dL Phosphorus (2.5-4.5) mg/dL Total Bilirubin (0.2-1.3) mg/dL AST (17-59) U/L ALT (21-72) U/L Alkaline Phosphatase (38-126) U/L Total Protein (6.3-8.2) g/dL Albumin (3.5-5.0) g/dL 03/07/19 03/07/19 03/07/19 Range/Units 20:01 21:10 21:56 WBC (3.8-10.6) k/uL RBC (4.30-5.90) m/uL Hgb (13.0-17.5) gm/dL Hct (39.0-53.0) % MCHC (31.0-37.0) g/dL RDW (11.5-15.5) % Plt Count (150-450) k/uL Neutrophils # (Manual) (1.3-7.7) k/uL Metamyelocytes # (Man) (0) k/uL Nucleated RBCs (0-0) /100 WBC PT (9.0-12.0) sec INR (<1.2) APTT (22.0-30.0) sec Fibrinogen (200-500) mg/dL ABG pH (7.35-7.45) ABG pCO2 (35-45) mmHg ABG HCO3 (21-25) mmol/L ABG Total CO2 (19-24) mmol/L Chloride (98-107) mmol/L BUN (9-20) mg/dL Creatinine (0.66-1.25) mg/dL Glucose (74-99) mg/dL POC Glucose (mg/dL) 420 H 419 H 393 H (75-99) mg/dL Calcium (8.4-10.2) mg/dL Phosphorus (2.5-4.5) mg/dL Total Bilirubin (0.2-1.3) mg/dL AST (17-59) U/L ALT (21-72) U/L Alkaline Phosphatase (38-126) U/L Total Protein (6.3-8.2) g/dL Albumin (3.5-5.0) g/dL 03/07/19 03/07/19 03/08/19 Range/Units 22:00 23:01 00:01 WBC (3.8-10.6) k/uL RBC (4.30-5.90) m/uL Hgb (13.0-17.5) gm/dL Hct (39.0-53.0) % MCHC (31.0-37.0) g/dL RDW (11.5-15.5) % Plt Count (150-450) k/uL Neutrophils # (Manual) (1.3-7.7) k/uL Metamyelocytes # (Man) (0) k/uL Nucleated RBCs (0-0) /100 WBC PT (9.0-12.0) sec INR (<1.2) APTT (22.0-30.0) sec Fibrinogen (200-500) mg/dL ABG pH (7.35-7.45) ABG pCO2 (35-45) mmHg ABG HCO3 (21-25) mmol/L ABG Total CO2 (19-24) mmol/L Chloride (98-107) mmol/L BUN (9-20) mg/dL Creatinine (0.66-1.25) mg/dL Glucose 349 H (74-99) mg/dL POC Glucose (mg/dL) 398 H 398 H (75-99) mg/dL Calcium (8.4-10.2) mg/dL Phosphorus (2.5-4.5) mg/dL Total Bilirubin (0.2-1.3) mg/dL AST (17-59) U/L ALT (21-72) U/L Alkaline Phosphatase (38-126) U/L Total Protein (6.3-8.2) g/dL Albumin (3.5-5.0) g/dL 03/08/19 03/08/19 03/08/19 Range/Units 01:01 01:54 02:02 WBC (3.8-10.6) k/uL RBC (4.30-5.90) m/uL Hgb (13.0-17.5) gm/dL Hct (39.0-53.0) % MCHC (31.0-37.0) g/dL RDW (11.5-15.5) % Plt Count (150-450) k/uL Neutrophils # (Manual) (1.3-7.7) k/uL Metamyelocytes # (Man) (0) k/uL Nucleated RBCs (0-0) /100 WBC PT (9.0-12.0) sec INR (<1.2) APTT (22.0-30.0) sec Fibrinogen (200-500) mg/dL ABG pH 7.15 L* (7.35-7.45) ABG pCO2 50 H (35-45) mmHg ABG HCO3 18 L (21-25) mmol/L ABG Total CO2 (19-24) mmol/L Chloride (98-107) mmol/L BUN (9-20) mg/dL Creatinine (0.66-1.25) mg/dL Glucose (74-99) mg/dL POC Glucose (mg/dL) 398 H 387 H (75-99) mg/dL Calcium (8.4-10.2) mg/dL Phosphorus (2.5-4.5) mg/dL Total Bilirubin (0.2-1.3) mg/dL AST (17-59) U/L ALT (21-72) U/L Alkaline Phosphatase (38-126) U/L Total Protein (6.3-8.2) g/dL Albumin (3.5-5.0) g/dL 03/08/19 03/08/19 03/08/19 Range/Units 03:01 04:01 04:02 WBC (3.8-10.6) k/uL RBC (4.30-5.90) m/uL Hgb (13.0-17.5) gm/dL Hct (39.0-53.0) % MCHC (31.0-37.0) g/dL RDW (11.5-15.5) % Plt Count (150-450) k/uL Neutrophils # (Manual) (1.3-7.7) k/uL Metamyelocytes # (Man) (0) k/uL Nucleated RBCs (0-0) /100 WBC PT (9.0-12.0) sec INR (<1.2) APTT (22.0-30.0) sec Fibrinogen (200-500) mg/dL ABG pH (7.35-7.45) ABG pCO2 (35-45) mmHg ABG HCO3 (21-25) mmol/L ABG Total CO2 (19-24) mmol/L Chloride 97 L (98-107) mmol/L BUN 38 H (9-20) mg/dL Creatinine 2.53 H (0.66-1.25) mg/dL Glucose 298 H (74-99) mg/dL POC Glucose (mg/dL) 362 H 352 H (75-99) mg/dL Calcium 5.7 L* (8.4-10.2) mg/dL Phosphorus 7.6 H (2.5-4.5) mg/dL Total Bilirubin 4.0 H (0.2-1.3) mg/dL AST 25418 H (17-59) U/L ALT 4530 H (21-72) U/L Alkaline Phosphatase 262 H (38-126) U/L Total Protein 3.5 L (6.3-8.2) g/dL Albumin 1.5 L (3.5-5.0) g/dL 03/08/19 03/08/19 03/08/19 Range/Units 04:02 04:02 05:06 WBC 55.1 H* (3.8-10.6) k/uL RBC 2.71 L (4.30-5.90) m/uL Hgb 7.4 L (13.0-17.5) gm/dL Hct 24.4 L (39.0-53.0) % MCHC 30.3 L (31.0-37.0) g/dL RDW 18.6 H (11.5-15.5) % Plt Count 97 L (150-450) k/uL Neutrophils # (Manual) 53.90 H (1.3-7.7) k/uL Metamyelocytes # (Man) 1.10 H (0) k/uL Nucleated RBCs 1 H (0-0) /100 WBC PT 23.2 H (9.0-12.0) sec INR 2.4 H (<1.2) APTT 31.7 H (22.0-30.0) sec Fibrinogen 198 L (200-500) mg/dL ABG pH (7.35-7.45) ABG pCO2 (35-45) mmHg ABG HCO3 (21-25) mmol/L ABG Total CO2 (19-24) mmol/L Chloride (98-107) mmol/L BUN (9-20) mg/dL Creatinine (0.66-1.25) mg/dL Glucose (74-99) mg/dL POC Glucose (mg/dL) 319 H (75-99) mg/dL Calcium (8.4-10.2) mg/dL Phosphorus (2.5-4.5) mg/dL Total Bilirubin (0.2-1.3) mg/dL AST (17-59) U/L ALT (21-72) U/L Alkaline Phosphatase (38-126) U/L Total Protein (6.3-8.2) g/dL Albumin (3.5-5.0) g/dL 03/08/19 03/08/19 03/08/19 Range/Units 05:58 06:54 06:54 WBC (3.8-10.6) k/uL RBC (4.30-5.90) m/uL Hgb (13.0-17.5) gm/dL Hct (39.0-53.0) % MCHC (31.0-37.0) g/dL RDW (11.5-15.5) % Plt Count (150-450) k/uL Neutrophils # (Manual) (1.3-7.7) k/uL Metamyelocytes # (Man) (0) k/uL Nucleated RBCs (0-0) /100 WBC PT (9.0-12.0) sec INR (<1.2) APTT (22.0-30.0) sec Fibrinogen (200-500) mg/dL ABG pH 7.24 L (7.35-7.45) ABG pCO2 50 H (35-45) mmHg ABG HCO3 (21-25) mmol/L ABG Total CO2 (19-24) mmol/L Chloride (98-107) mmol/L BUN (9-20) mg/dL Creatinine (0.66-1.25) mg/dL Glucose (74-99) mg/dL POC Glucose (mg/dL) 306 H 286 H (75-99) mg/dL Calcium (8.4-10.2) mg/dL Phosphorus (2.5-4.5) mg/dL Total Bilirubin (0.2-1.3) mg/dL AST (17-59) U/L ALT (21-72) U/L Alkaline Phosphatase (38-126) U/L Total Protein (6.3-8.2) g/dL Albumin (3.5-5.0) g/dL 03/08/19 03/08/19 03/08/19 Range/Units 08:12 09:14 10:08 WBC (3.8-10.6) k/uL RBC (4.30-5.90) m/uL Hgb (13.0-17.5) gm/dL Hct (39.0-53.0) % MCHC (31.0-37.0) g/dL RDW (11.5-15.5) % Plt Count (150-450) k/uL Neutrophils # (Manual) (1.3-7.7) k/uL Metamyelocytes # (Man) (0) k/uL Nucleated RBCs (0-0) /100 WBC PT (9.0-12.0) sec INR (<1.2) APTT (22.0-30.0) sec Fibrinogen (200-500) mg/dL ABG pH (7.35-7.45) ABG pCO2 (35-45) mmHg ABG HCO3 (21-25) mmol/L ABG Total CO2 (19-24) mmol/L Chloride (98-107) mmol/L BUN (9-20) mg/dL Creatinine (0.66-1.25) mg/dL Glucose (74-99) mg/dL POC Glucose (mg/dL) 254 H 240 H 197 H (75-99) mg/dL Calcium (8.4-10.2) mg/dL Phosphorus (2.5-4.5) mg/dL Total Bilirubin (0.2-1.3) mg/dL AST (17-59) U/L ALT (21-72) U/L Alkaline Phosphatase (38-126) U/L Total Protein (6.3-8.2) g/dL Albumin (3.5-5.0) g/dL Microbiology - Last 24 Hours (Table) 03/06/19 11:03 Gram Stain - Final Sputum Sputum Culture - Final Escherichia coli 03/01/19 17:47 Blood Culture - Final Blood No Growth after 144 hours 03/06/19 09:50 Blood Culture - Preliminary Blood No Growth after 24 hours 03/06/19 12:08 Gram Stain - Preliminary Other - Other Wound Culture - Preliminary Gram Neg Bacilli Assessment and Plan Assessment: Impression: 1 acute hypoxic respiratory failure secondary to aspiration pneumonia, ARDS, septic shock, abdominal sepsis.the fluid from the peritoneal cavity is supposedly positive for gram-negative bacilli, patient is on Merrem and vancomycin.Sputum is positive for ESBL E. coli. Hence we'll continue with Merrem 2 acute metabolic encephalopathy, secondary to sepsis and aspiration pneumonia. 3 atrial fibrillation with RVR presently in normal sinus rhythm, amiodarone was placed on hold.however the patient was given a bolus yesterday because intermittently had runs of atrial fibrillation with RVR. 4 acute metabolic acidosis secondary to sepsis and septic shock, improving with sodium bicarb drip, and with hemodialysis. 5 status post exploratory laparotomy and drainage of hematoma/seroma , supposedly the fluid was positive for gram-negative bacilli, final culture is pending. 6 small bowel obstruction requiring surgical intervention on his initial admission. 7 recent history of Streptococcus bacteremia treated and presently on Merrem and vancomycin. 8 history of adrenal insufficiency patient is presently on Cortef.at 50 milligrams IV push every 8 hours 9 type 2 diabetes. Presently on insulin drip. 10 multi organ dysfunction secondary to sepsis and septic shock including lungs, liver, kidneys, which makes prognosis is extremely poor at this point. Mortality is over 95%. 10 multiple comorbidities including COPD, obstructive sleep apnea, benign essential hypertension, hyperlipidemia, hypothyroidism, coronary artery disease, chronic anemia, history of pancreatic neuroendocrine tumor. Recommendation: continue ventilatory support, hemodynamic support remains on norepinephrine and vasopressin, nutritional support remains on TPN, antibiotics to cover for abdominal sepsis, patient is on Merrem and on vancomycin, sputum has been positive for ESBL E. coli. Continue bicarb drip to correct his profound metabolic acidosis. Continue hemodialysis. Continue GI and DVT prophylaxis, continue paralysis and sedation, continue high FiO2 and high PEEP for now, and considering the overall picture were dealing with, mortality remains extremely high, and it is over 95%. We'll continue to follow. Critical care time is 40 minutes Time with Patient: Greater than 30
[2019-03-08] MEDS ORDERED: DILTIAZEM DRIP BOLUS FROM BAG 1 MG SOLN IV ONE (11:40)
[2019-03-08 11:50] LABS: Glucose,Whole Blood 164 mg/dL (75-99)
--- NOTE | 2019-03-08 11:55 | CONS ---
CONSULTATION Mr. Ribera is in atrial fib, rapid rate today. I gave him a dose of amiodarone bolus 150 mg. His liver functions are still abnormal. He is on hemodialysis for his renal failure. He is also on a combination of Levophed and vasopressin. Prognosis is poor. I I feel we should not use amiodarone intravenously, especially with high liver enzyme abnormality. Therefore I am recommending that we will use a small dose of Cardizem if necessary for rate control. Blood pressure is about 110 on a combination of Levophed, vasopressin, heart rate is in the 120-130 range. S1-S2 heard. Irregular rate and rhythm noted. Tachycardia noted. Lungs reveal diminished air entry. Abdomen exam was deferred. Prognosis remains very poor. We will try a small dose of Cardizem for rate control. MMODL / IJN: [id number] /
[2019-03-08] MEDS: PROPOFOL 1,000 MG in EMPTY BAG 1 BAG IV SCH ×2 (12:35→23:03)
--- NOTE | 2019-03-08 12:42 | P.PN ---
Subjective Progress Note Date: 03/08/19 Principal diagnosis: Aspiration pneumonia Status post right colectomy and small bowel resection for small bowel obstruction The patient is shown some improvement in his ABGs. He remains on the ventilator. He's coming down off of his Levophed. Objective - Vital Signs Vital signs: Vital Signs Temp 97.9 F 03/08/19 12:00 Pulse 125 H 03/08/19 12:00 Resp 34 H 03/08/19 12:00 BP 112/65 03/08/19 11:59 Pulse Ox 93 L 03/08/19 04:30 Intake & Output 03/07/19 03/08/19 03/08/19 18:59 06:59 18:59 Intake Total 3869.977 7371.575 2239.700 Output Total 575 981 535 Balance 3294.977 6390.575 1704.700 Weight 107 kg 112.7 kg Intake: IV 2957 5038.0 1105.5 Dextrose 5% in Water 1, 1500 000 ml @ 150 mls/hr IV . Q7H40M [place] with Sodium Bicarb (1 Meq/ml) 150 ml Rx#:[id number] Meropenem 1 gm In Sodium 100 200 Chloride 0.9% 100 ml @ 200 mls/hr IVPB Q12HR [facility] Rx#:[id number] Mvi, Adult No.4 with Vit 1045 950.0 95.0 K 10 ml Trace (Conc-1Ml/ Dose) 1 ml In Amino Acid 4.25%-D10w+Lytes*E* 1,000 ml @ 95 mls/hr IV .BY DURATION [facility] Rx#: [id number] Parenteral Electrolytes 142.5 20 ml Mvi, Adult No.4 with Vit K 10 ml Trace ( Conc-1Ml/Dose) 1 ml In Amino Acid 4.25%-D10w 1, 000 ml @ 95 mls/hr IV .BY DURATION [facility] Rx#: [id number] Pressure Bags 72 78 18 Sodium Bicarbonate 100 Sodium Chloride 0.45% 1, 1950 750 000 ml @ 150 mls/hr IV . Q7H40M [place] with Sodium Bicarb (1 Meq/ml) 150 ml Rx#:[id number] Sodium Chloride 0.9% @ 20 240 260 100 ml/hr Vancomycin 1,750 mg In 1500 Sodium Chloride 0.9% 500 ml 500 ml @ 167 mls/hr IVPB Q24HR@0800 [place] Rx#: [id number] Intake, IV Titration 567.635 1190.575 534.200 Amount Cisatracurium 200 mg In 138.986 Sodium Chloride 0.9% 180 ml @ 1 MCG/KG/MIN 5.646 mls/hr IV .Q24H [place] Rx#: [id number] Insulin Regular 100 unit 284.719 583.780 276.908 In Sodium Chloride 0.9% 100 ml @ Per Protocol IV .Q0M [place] Rx#:[id number] Norepinephrine 32 mg In 98.701 219.962 Sodium Chloride 0.9% 218 ml @ 0.05 MCG/KG/MIN 2. 205 mls/hr IV .Q24H [place] Rx#:[id number] Parenteral Electrolytes 1529.833 257.292 20 ml In Amino Acid 4.25% -D10w 1,000 ml @ 95 mls/ hr IV .BY DURATION [place] Rx #:[id number] Propofol 1,000 mg In 190.571 Empty Bag 1 bag @ Titrate IV .Q0M [place] Rx#: [id number] Hemodialysis 200 600 Output: Gastric Drainage 50 Drainage 560 835 470 Right Abdomen 560 835 470 Urine 15 96 65 Other: Voiding Method Indwelling Catheter Indwelling Catheter Indwelling Catheter ABP, PAP, CO, CI - Last Documented Arterial Blood Pressure 135/108 - Gastrointestinal Gastrointestinal Comment(s): Abdomen is mildly distended. There is mainly serous fluid in the TATE drain. Wound is clean. - Labs CBC & Chem 7: 03/08/19 04:02 03/08/19 04:02 Labs: Abnormal Lab Results - Last 24 Hours (Table) 03/07/19 03/07/19 03/07/19 Range/Units 00:01 13:07 14:08 WBC (3.8-10.6) k/uL RBC (4.30-5.90) m/uL Hgb (13.0-17.5) gm/dL Hct (39.0-53.0) % MCHC (31.0-37.0) g/dL RDW (11.5-15.5) % Plt Count (150-450) k/uL Neutrophils # (Manual) (1.3-7.7) k/uL Metamyelocytes # (Man) (0) k/uL Nucleated RBCs (0-0) /100 WBC PT (9.0-12.0) sec INR (<1.2) APTT (22.0-30.0) sec Fibrinogen (200-500) mg/dL ABG pH (7.35-7.45) ABG pCO2 (35-45) mmHg ABG HCO3 (21-25) mmol/L Chloride (98-107) mmol/L BUN (9-20) mg/dL Creatinine (0.66-1.25) mg/dL Glucose 344 H (74-99) mg/dL POC Glucose (mg/dL) 413 H 433 H (75-99) mg/dL Calcium (8.4-10.2) mg/dL Phosphorus (2.5-4.5) mg/dL Total Bilirubin (0.2-1.3) mg/dL AST (17-59) U/L ALT (21-72) U/L Alkaline Phosphatase (38-126) U/L Total Protein (6.3-8.2) g/dL Albumin (3.5-5.0) g/dL 03/07/19 03/07/19 03/07/19 Range/Units 15:15 15:18 16:11 WBC (3.8-10.6) k/uL RBC (4.30-5.90) m/uL Hgb (13.0-17.5) gm/dL Hct (39.0-53.0) % MCHC (31.0-37.0) g/dL RDW (11.5-15.5) % Plt Count (150-450) k/uL Neutrophils # (Manual) (1.3-7.7) k/uL Metamyelocytes # (Man) (0) k/uL Nucleated RBCs (0-0) /100 WBC PT (9.0-12.0) sec INR (<1.2) APTT (22.0-30.0) sec Fibrinogen (200-500) mg/dL ABG pH (7.35-7.45) ABG pCO2 (35-45) mmHg ABG HCO3 (21-25) mmol/L Chloride (98-107) mmol/L BUN (9-20) mg/dL Creatinine (0.66-1.25) mg/dL Glucose (74-99) mg/dL POC Glucose (mg/dL) 448 H 413 H 456 H (75-99) mg/dL Calcium (8.4-10.2) mg/dL Phosphorus (2.5-4.5) mg/dL Total Bilirubin (0.2-1.3) mg/dL AST (17-59) U/L ALT (21-72) U/L Alkaline Phosphatase (38-126) U/L Total Protein (6.3-8.2) g/dL Albumin (3.5-5.0) g/dL 03/07/19 03/07/19 03/07/19 Range/Units 17:10 18:12 18:30 WBC (3.8-10.6) k/uL RBC (4.30-5.90) m/uL Hgb (13.0-17.5) gm/dL Hct (39.0-53.0) % MCHC (31.0-37.0) g/dL RDW (11.5-15.5) % Plt Count (150-450) k/uL Neutrophils # (Manual) (1.3-7.7) k/uL Metamyelocytes # (Man) (0) k/uL Nucleated RBCs (0-0) /100 WBC PT (9.0-12.0) sec INR (<1.2) APTT (22.0-30.0) sec Fibrinogen (200-500) mg/dL ABG pH (7.35-7.45) ABG pCO2 (35-45) mmHg ABG HCO3 (21-25) mmol/L Chloride (98-107) mmol/L BUN (9-20) mg/dL Creatinine (0.66-1.25) mg/dL Glucose 380 H (74-99) mg/dL POC Glucose (mg/dL) 430 H 443 H (75-99) mg/dL Calcium (8.4-10.2) mg/dL Phosphorus (2.5-4.5) mg/dL Total Bilirubin (0.2-1.3) mg/dL AST (17-59) U/L ALT (21-72) U/L Alkaline Phosphatase (38-126) U/L Total Protein (6.3-8.2) g/dL Albumin (3.5-5.0) g/dL 03/07/19 03/07/19 03/07/19 Range/Units 19:13 20:01 21:10 WBC (3.8-10.6) k/uL RBC (4.30-5.90) m/uL Hgb (13.0-17.5) gm/dL Hct (39.0-53.0) % MCHC (31.0-37.0) g/dL RDW (11.5-15.5) % Plt Count (150-450) k/uL Neutrophils # (Manual) (1.3-7.7) k/uL Metamyelocytes # (Man) (0) k/uL Nucleated RBCs (0-0) /100 WBC PT (9.0-12.0) sec INR (<1.2) APTT (22.0-30.0) sec Fibrinogen (200-500) mg/dL ABG pH (7.35-7.45) ABG pCO2 (35-45) mmHg ABG HCO3 (21-25) mmol/L Chloride (98-107) mmol/L BUN (9-20) mg/dL Creatinine (0.66-1.25) mg/dL Glucose (74-99) mg/dL POC Glucose (mg/dL) 431 H 420 H 419 H (75-99) mg/dL Calcium (8.4-10.2) mg/dL Phosphorus (2.5-4.5) mg/dL Total Bilirubin (0.2-1.3) mg/dL AST (17-59) U/L ALT (21-72) U/L Alkaline Phosphatase (38-126) U/L Total Protein (6.3-8.2) g/dL Albumin (3.5-5.0) g/dL 03/07/19 03/07/19 03/07/19 Range/Units 21:56 22:00 23:01 WBC (3.8-10.6) k/uL RBC (4.30-5.90) m/uL Hgb (13.0-17.5) gm/dL Hct (39.0-53.0) % MCHC (31.0-37.0) g/dL RDW (11.5-15.5) % Plt Count (150-450) k/uL Neutrophils # (Manual) (1.3-7.7) k/uL Metamyelocytes # (Man) (0) k/uL Nucleated RBCs (0-0) /100 WBC PT (9.0-12.0) sec INR (<1.2) APTT (22.0-30.0) sec Fibrinogen (200-500) mg/dL ABG pH (7.35-7.45) ABG pCO2 (35-45) mmHg ABG HCO3 (21-25) mmol/L Chloride (98-107) mmol/L BUN (9-20) mg/dL Creatinine (0.66-1.25) mg/dL Glucose 349 H (74-99) mg/dL POC Glucose (mg/dL) 393 H 398 H (75-99) mg/dL Calcium (8.4-10.2) mg/dL Phosphorus (2.5-4.5) mg/dL Total Bilirubin (0.2-1.3) mg/dL AST (17-59) U/L ALT (21-72) U/L Alkaline Phosphatase (38-126) U/L Total Protein (6.3-8.2) g/dL Albumin (3.5-5.0) g/dL 03/08/19 03/08/19 03/08/19 Range/Units 00:01 01:01 01:54 WBC (3.8-10.6) k/uL RBC (4.30-5.90) m/uL Hgb (13.0-17.5) gm/dL Hct (39.0-53.0) % MCHC (31.0-37.0) g/dL RDW (11.5-15.5) % Plt Count (150-450) k/uL Neutrophils # (Manual) (1.3-7.7) k/uL Metamyelocytes # (Man) (0) k/uL Nucleated RBCs (0-0) /100 WBC PT (9.0-12.0) sec INR (<1.2) APTT (22.0-30.0) sec Fibrinogen (200-500) mg/dL ABG pH (7.35-7.45) ABG pCO2 (35-45) mmHg ABG HCO3 (21-25) mmol/L Chloride (98-107) mmol/L BUN (9-20) mg/dL Creatinine (0.66-1.25) mg/dL Glucose (74-99) mg/dL POC Glucose (mg/dL) 398 H 398 H 387 H (75-99) mg/dL Calcium (8.4-10.2) mg/dL Phosphorus (2.5-4.5) mg/dL Total Bilirubin (0.2-1.3) mg/dL AST (17-59) U/L ALT (21-72) U/L Alkaline Phosphatase (38-126) U/L Total Protein (6.3-8.2) g/dL Albumin (3.5-5.0) g/dL 03/08/19 03/08/19 03/08/19 Range/Units 02:02 03:01 04:01 WBC (3.8-10.6) k/uL RBC (4.30-5.90) m/uL Hgb (13.0-17.5) gm/dL Hct (39.0-53.0) % MCHC (31.0-37.0) g/dL RDW (11.5-15.5) % Plt Count (150-450) k/uL Neutrophils # (Manual) (1.3-7.7) k/uL Metamyelocytes # (Man) (0) k/uL Nucleated RBCs (0-0) /100 WBC PT (9.0-12.0) sec INR (<1.2) APTT (22.0-30.0) sec Fibrinogen (200-500) mg/dL ABG pH 7.15 L* (7.35-7.45) ABG pCO2 50 H (35-45) mmHg ABG HCO3 18 L (21-25) mmol/L Chloride (98-107) mmol/L BUN (9-20) mg/dL Creatinine (0.66-1.25) mg/dL Glucose (74-99) mg/dL POC Glucose (mg/dL) 362 H 352 H (75-99) mg/dL Calcium (8.4-10.2) mg/dL Phosphorus (2.5-4.5) mg/dL Total Bilirubin (0.2-1.3) mg/dL AST (17-59) U/L ALT (21-72) U/L Alkaline Phosphatase (38-126) U/L Total Protein (6.3-8.2) g/dL Albumin (3.5-5.0) g/dL 03/08/19 03/08/19 03/08/19 Range/Units 04:02 04:02 04:02 WBC 55.1 H* (3.8-10.6) k/uL RBC 2.71 L (4.30-5.90) m/uL Hgb 7.4 L (13.0-17.5) gm/dL Hct 24.4 L (39.0-53.0) % MCHC 30.3 L (31.0-37.0) g/dL RDW 18.6 H (11.5-15.5) % Plt Count 97 L (150-450) k/uL Neutrophils # (Manual) 53.90 H (1.3-7.7) k/uL Metamyelocytes # (Man) 1.10 H (0) k/uL Nucleated RBCs 1 H (0-0) /100 WBC PT 23.2 H (9.0-12.0) sec INR 2.4 H (<1.2) APTT 31.7 H (22.0-30.0) sec Fibrinogen 198 L (200-500) mg/dL ABG pH (7.35-7.45) ABG pCO2 (35-45) mmHg ABG HCO3 (21-25) mmol/L Chloride 97 L (98-107) mmol/L BUN 38 H (9-20) mg/dL Creatinine 2.53 H (0.66-1.25) mg/dL Glucose 298 H (74-99) mg/dL POC Glucose (mg/dL) (75-99) mg/dL Calcium 5.7 L* (8.4-10.2) mg/dL Phosphorus 7.6 H (2.5-4.5) mg/dL Total Bilirubin 4.0 H (0.2-1.3) mg/dL AST 71649 H (17-59) U/L ALT 4530 H (21-72) U/L Alkaline Phosphatase 262 H (38-126) U/L Total Protein 3.5 L (6.3-8.2) g/dL Albumin 1.5 L (3.5-5.0) g/dL 03/08/19 03/08/19 03/08/19 Range/Units 05:06 05:58 06:54 WBC (3.8-10.6) k/uL RBC (4.30-5.90) m/uL Hgb (13.0-17.5) gm/dL Hct (39.0-53.0) % MCHC (31.0-37.0) g/dL RDW (11.5-15.5) % Plt Count (150-450) k/uL Neutrophils # (Manual) (1.3-7.7) k/uL Metamyelocytes # (Man) (0) k/uL Nucleated RBCs (0-0) /100 WBC PT (9.0-12.0) sec INR (<1.2) APTT (22.0-30.0) sec Fibrinogen (200-500) mg/dL ABG pH 7.24 L (7.35-7.45) ABG pCO2 50 H (35-45) mmHg ABG HCO3 (21-25) mmol/L Chloride (98-107) mmol/L BUN (9-20) mg/dL Creatinine (0.66-1.25) mg/dL Glucose (74-99) mg/dL POC Glucose (mg/dL) 319 H 306 H (75-99) mg/dL Calcium (8.4-10.2) mg/dL Phosphorus (2.5-4.5) mg/dL Total Bilirubin (0.2-1.3) mg/dL AST (17-59) U/L ALT (21-72) U/L Alkaline Phosphatase (38-126) U/L Total Protein (6.3-8.2) g/dL Albumin (3.5-5.0) g/dL 03/08/19 03/08/19 03/08/19 Range/Units 06:54 08:12 09:14 WBC (3.8-10.6) k/uL RBC (4.30-5.90) m/uL Hgb (13.0-17.5) gm/dL Hct (39.0-53.0) % MCHC (31.0-37.0) g/dL RDW (11.5-15.5) % Plt Count (150-450) k/uL Neutrophils # (Manual) (1.3-7.7) k/uL Metamyelocytes # (Man) (0) k/uL Nucleated RBCs (0-0) /100 WBC PT (9.0-12.0) sec INR (<1.2) APTT (22.0-30.0) sec Fibrinogen (200-500) mg/dL ABG pH (7.35-7.45) ABG pCO2 (35-45) mmHg ABG HCO3 (21-25) mmol/L Chloride (98-107) mmol/L BUN (9-20) mg/dL Creatinine (0.66-1.25) mg/dL Glucose (74-99) mg/dL POC Glucose (mg/dL) 286 H 254 H 240 H (75-99) mg/dL Calcium (8.4-10.2) mg/dL Phosphorus (2.5-4.5) mg/dL Total Bilirubin (0.2-1.3) mg/dL AST (17-59) U/L ALT (21-72) U/L Alkaline Phosphatase (38-126) U/L Total Protein (6.3-8.2) g/dL Albumin (3.5-5.0) g/dL 03/08/19 03/08/19 03/08/19 Range/Units 10:08 11:18 11:22 WBC (3.8-10.6) k/uL RBC (4.30-5.90) m/uL Hgb (13.0-17.5) gm/dL Hct (39.0-53.0) % MCHC (31.0-37.0) g/dL RDW (11.5-15.5) % Plt Count (150-450) k/uL Neutrophils # (Manual) (1.3-7.7) k/uL Metamyelocytes # (Man) (0) k/uL Nucleated RBCs (0-0) /100 WBC PT (9.0-12.0) sec INR (<1.2) APTT (22.0-30.0) sec Fibrinogen (200-500) mg/dL ABG pH 7.23 L (7.35-7.45) ABG pCO2 52 H (35-45) mmHg ABG HCO3 (21-25) mmol/L Chloride (98-107) mmol/L BUN (9-20) mg/dL Creatinine (0.66-1.25) mg/dL Glucose (74-99) mg/dL POC Glucose (mg/dL) 197 H 159 H (75-99) mg/dL Calcium (8.4-10.2) mg/dL Phosphorus (2.5-4.5) mg/dL Total Bilirubin (0.2-1.3) mg/dL AST (17-59) U/L ALT (21-72) U/L Alkaline Phosphatase (38-126) U/L Total Protein (6.3-8.2) g/dL Albumin (3.5-5.0) g/dL 03/08/19 Range/Units 11:47 WBC (3.8-10.6) k/uL RBC (4.30-5.90) m/uL Hgb (13.0-17.5) gm/dL Hct (39.0-53.0) % MCHC (31.0-37.0) g/dL RDW (11.5-15.5) % Plt Count (150-450) k/uL Neutrophils # (Manual) (1.3-7.7) k/uL Metamyelocytes # (Man) (0) k/uL Nucleated RBCs (0-0) /100 WBC PT (9.0-12.0) sec INR (<1.2) APTT (22.0-30.0) sec Fibrinogen (200-500) mg/dL ABG pH (7.35-7.45) ABG pCO2 (35-45) mmHg ABG HCO3 (21-25) mmol/L Chloride (98-107) mmol/L BUN (9-20) mg/dL Creatinine (0.66-1.25) mg/dL Glucose (74-99) mg/dL POC Glucose (mg/dL) 164 H (75-99) mg/dL Calcium (8.4-10.2) mg/dL Phosphorus (2.5-4.5) mg/dL Total Bilirubin (0.2-1.3) mg/dL AST (17-59) U/L ALT (21-72) U/L Alkaline Phosphatase (38-126) U/L Total Protein (6.3-8.2) g/dL Albumin (3.5-5.0) g/dL Microbiology - Last 24 Hours (Table) 03/06/19 09:50 Blood Culture - Preliminary Blood No Growth after 48 hours 03/06/19 11:03 Gram Stain - Final Sputum Sputum Culture - Final Escherichia coli 03/01/19 17:47 Blood Culture - Final Blood No Growth after 144 hours 03/06/19 12:08 Gram Stain - Preliminary Other - Other Wound Culture - Preliminary Gram Neg Bacilli Assessment and Plan Plan: Aspiration pneumonia with severe multisystem organ failure. Patient continue receive supportive care.
[2019-03-08 13:05] LABS: Glucose,Whole Blood 157 mg/dL (75-99)
[2019-03-08] MEDS: DILTIAZEM 125 MG in SODIUM CHLORIDE 0.9% 100 ML IV SCH (13:08)
[2019-03-08 14:18] LABS: Glucose,Whole Blood 147 mg/dL (75-99)
[2019-03-08] MEDS: HYDROmorphone 0.5 MG/0.5 ML SYRINGE IVP SCH ×5 (14:32→23:40)
[2019-03-08 15:36] LABS: Glucose,Whole Blood 130 mg/dL (75-99)
[2019-03-08] MEDS: CISATRACURIUM 200 MG in SODIUM CHLORIDE 0.9% 180 ML IV SCH (15:48)
[2019-03-08 16:09] LABS: Glucose,Whole Blood 127 mg/dL (75-99)
[2019-03-08] MEDS ORDERED: PARENTERAL ELECTROLYTES IV SCH ×5 (17:00)
[2019-03-08] MEDS ORDERED: CALCIUM GLUCONATE IV SCH ×5 (17:00)
[2019-03-08] MEDS ORDERED: [UNRECOGNIZED DRUG - OTHER] IV SCH ×5 (17:00)
[2019-03-08 17:30] LABS: Glucose,Whole Blood 118 mg/dL (75-99)
--- NOTE | 2019-03-08 18:35 | P.PN ---
Subjective Progress Note Date: 03/08/19 (Delayed charting patient seen at 10 AM) Principal diagnosis: abdominal pain Patient is a 58-year-old male with a past medical history of diabetes mellitus type 2 insulin requiring, hypertension, dyslipidemia, systolic congestive heart failure with last ejection fraction 45-50%, and adrenal insufficiency requiring twice daily Cortef who presented to the ER with compla ints of abdominal pain. On arrival to the ER his vital signs within normal limits. White blood cell count was slightly elevated at 12.9. Laboratory analysis is otherwise unremarkable. Urinalysis negative. CT abdomen and pelvis showed partial small bowel obstruction with concern for adhesions. He was started on IV fluids, made nothing by mouth, and had an nasogastric tube placed. He was admitted for further monitoring. We're asked to consult regarding his adrenal insufficiency and diabetic management. He was recently hospitalized here from 02/09 through 02/12 group B strep bacteremia related to infection of the skin. He is due to complete his Rocephin therapy after his dose on 01/26. He ultimately underwent exploratory laparotomy with repair of incisional hernia, partial omentectomy, lysis of adhesion, right colectomy, small bowel resection secondary to his small bowel obstruction on 02/27. He has been progressing well since surgery. Has NG tube discontinued on 03/03. He is being followed by infectious disease. 03/06. Noted to have WBC increased to 33, order acute abdominal series. Nursing called several minutes later that patient was in distress and spiked a fever to 103. A-team activated and I immediately proceeded to bedside. On arrival patient was noted to be tachycardic with heart rate in the 150s, blood pressure was normal at 154/90, glucose 170, SpO2 90. Patient appears lethargic but was able to wake up and speak, however he was confused and thought that he was in a car. Ordered 1 L fluid bolus, stat CBC, CMP, lactic acid and blood cultures. Acute abdominal series reviewed at bedside and appeared to have dilated loops of small bowel. Dr. Nichols immediately notified and also presented at bedside. ABG was obtained which showed the patient to have a low CO2 level consistent with his tachypnea, and a low PaO2 at 51. His O2 was increased. He was tr ansferred to ICU. CT abdomen and pelvis ordered and reviewed with Dr. Nichols which revealed dilated small bowel loops. Patient also noted be in A. fib with RVR became hypotensive and ICU with the systolic 70s. Therefore an amiodarone drip was ordered. He was placed on vanoc and merrem, he received IVF. Blood culture, UA, and CXR obtained. EKG appeared to be consistent with A. fib with RVR. Dr. Pope with critical care consulted. Patient was in respiratory distress and was intubated in the ICU, on intubation he was noted to have aspirated. He had a central line and arterial line placed. We has taked for ex- lap he had an intraperitoneal seroma/ hematoma. There was no evidence of perfor ation. Upon arrival back to the ICU he continued to poorly. He was noted to be profoundly acidotic. He was given multiple doses of intravenous bicarbonate overnight. 03/07. Patient will be and ARDS. He has elevated PEEP. He was noted to have shock liver, renal failure with refractory acidosis. He has been placed on paralytics. He is on both Levophed and vasopressin. He received dialysis but remains acidotic. Family has been updated by Dr. Martins. Extremely poor prognosis. 03/08. Patient weaned off bicarb drip and acidosis is getting better. Having some urine output today. He remains paralyzed and on antibiotics. Continues to require vasopressor agents. Patient requiring significant insulin drip. Cortef decreased. Patient seen and examined at bedside. Sedated and paralyzed on vent. No family at bedside. Case discussed with nurse. Objective - Vital Signs Vital signs: Vital Signs Temp 97.5 F L 03/08/19 16:00 Pulse 134 H 03/08/19 17:30 Resp 34 H 03/08/19 17:30 BP 99/79 03/08/19 15:00 Pulse Ox 93 L 03/08/19 04:30 Intake & Output 03/07/19 03/08/19 03/08/19 18:59 06:59 18:59 Intake Total 3869.977 7471.575 3897.462 Output Total 575 981 960 Balance 3294.977 6490.575 2937.462 Weight 107 kg 112.7 kg Intake: IV 2957 5038.0 2208.0 Dextrose 5% in Water 1, 1500 000 ml @ 150 mls/hr IV . Q7H40M [place] with Sodium Bicarb (1 Meq/ml) 150 ml Rx#:[id number] Meropenem 1 gm In Sodium 100 200 Chloride 0.9% 100 ml @ 200 mls/hr IVPB Q12HR [facility] Rx#:[id number] Mvi, Adult No.4 with Vit 1045 950.0 95.0 K 10 ml Trace (Conc-1Ml/ Dose) 1 ml In Amino Acid 4.25%-D10w+Lytes*E* 1,000 ml @ 95 mls/hr IV .BY DURATION [facility] Rx#: [id number] Parenteral Electrolytes 380.0 20 ml Mvi, Adult No.4 with Vit K 10 ml Trace ( Conc-1Ml/Dose) 1 ml In Amino Acid 4.25%-D10w 1, 000 ml @ 95 mls/hr IV .BY DURATION [facility] Rx#: [id number] Pressure Bags 72 78 33 Sodium Bicarbonate 100 Sodium Chloride 0.45% 1, 1950 1500 000 ml @ 150 mls/hr IV . Q7H40M [place] with Sodium Bicarb (1 Meq/ml) 150 ml Rx#:[id number] Sodium Chloride 0.9% @ 20 240 260 200 ml/hr Vancomycin 1,750 mg In 1500 Sodium Chloride 0.9% 500 ml 500 ml @ 167 mls/hr IVPB Q24HR@0800 [facility] Rx#: [id number] Intake, IV Titration 278.279 1508.575 1089.462 Amount Cisatracurium 200 mg In 138.986 134.375 Sodium Chloride 0.9% 180 ml @ 1 MCG/KG/MIN 5.646 mls/hr IV .Q24H [facility] Rx#: [id number] Insulin Regular 100 unit 284.719 583.780 478.908 In Sodium Chloride 0.9% 100 ml @ Per Protocol IV .Q0M [facility] Rx#:[id number] Norepinephrine 32 mg In 98.701 219.962 218.887 Sodium Chloride 0.9% 218 ml @ 0.05 MCG/KG/MIN 2. 205 mls/hr IV .Q24H [facility] Rx#:[id number] Parenteral Electrolytes 1529.833 257.292 20 ml In Amino Acid 4.25% -D10w 1,000 ml @ 95 mls/ hr IV .BY DURATION [facility] Rx #:[id number] Propofol 1,000 mg In 190.571 100 Empty Bag 1 bag @ Titrate IV .Q0M [facility] Rx#: [id number] Hemodialysis 200 600 Output: Gastric Drainage 50 Drainage 560 835 810 Right Abdomen 560 835 810 Urine 15 96 150 Other: Voiding Method Indwelling Catheter Indwelling Catheter Indwelling Catheter ABP, PAP, CO, CI - Last Documented Arterial Blood Pressure 111/59 - Exam General: Toxic, maximal distress, pale, diaphoretic Derm: warm, dry Head: atraumatic, normocephalic, symmetric Eyes: Pupils pinpoint, no lid lesion, anicteric sclera Mouth: no lip lesion, mucus membranes moist Cardiovascular: S1S2 irreg, no murmur, positive posterior tibial pulse bilateral, Lungs: course bs b/l, no rhonchi, no rales , no accessory muscle use, on vent, ET tube in placed Abdominal: soft, abd binder and TATE drain in place- serous fluid. no appreciable organomegaly Ext: no gross muscle atrophy, diffuse anasarca, no contractures Gu: hernandez in place with dark yellow urine. Neuro: on paralytics Psych: sedated on vent - Labs CBC & Chem 7: 03/08/19 04:02 03/08/19 04:02 Labs: Abnormal Lab Results - Last 24 Hours (Table) 03/07/19 03/07/19 03/07/19 Range/Units 00:01 18:12 18:30 WBC (3.8-10.6) k/uL RBC (4.30-5.90) m/uL Hgb (13.0-17.5) gm/dL Hct (39.0-53.0) % MCHC (31.0-37.0) g/dL RDW (11.5-15.5) % Plt Count (150-450) k/uL Neutrophils # (Manual) (1.3-7.7) k/uL Metamyelocytes # (Man) (0) k/uL Nucleated RBCs (0-0) /100 WBC PT (9.0-12.0) sec INR (<1.2) APTT (22.0-30.0) sec Fibrinogen (200-500) mg/dL ABG pH (7.35-7.45) ABG pCO2 (35-45) mmHg ABG HCO3 (21-25) mmol/L Chloride (98-107) mmol/L BUN (9-20) mg/dL Creatinine (0.66-1.25) mg/dL Glucose 344 H 380 H (74-99) mg/dL POC Glucose (mg/dL) 443 H (75-99) mg/dL Calcium (8.4-10.2) mg/dL Phosphorus (2.5-4.5) mg/dL Total Bilirubin (0.2-1.3) mg/dL AST (17-59) U/L ALT (21-72) U/L Alkaline Phosphatase (38-126) U/L Total Protein (6.3-8.2) g/dL Albumin (3.5-5.0) g/dL 03/07/19 03/07/19 03/07/19 Range/Units 19:13 20:01 21:10 WBC (3.8-10.6) k/uL RBC (4.30-5.90) m/uL Hgb (13.0-17.5) gm/dL Hct (39.0-53.0) % MCHC (31.0-37.0) g/dL RDW (11.5-15.5) % Plt Count (150-450) k/uL Neutrophils # (Manual) (1.3-7.7) k/uL Metamyelocytes # (Man) (0) k/uL Nucleated RBCs (0-0) /100 WBC PT (9.0-12.0) sec INR (<1.2) APTT (22.0-30.0) sec Fibrinogen (200-500) mg/dL ABG pH (7.35-7.45) ABG pCO2 (35-45) mmHg ABG HCO3 (21-25) mmol/L Chloride (98-107) mmol/L BUN (9-20) mg/dL Creatinine (0.66-1.25) mg/dL Glucose (74-99) mg/dL POC Glucose (mg/dL) 431 H 420 H 419 H (75-99) mg/dL Calcium (8.4-10.2) mg/dL Phosphorus (2.5-4.5) mg/dL Total Bilirubin (0.2-1.3) mg/dL AST (17-59) U/L ALT (21-72) U/L Alkaline Phosphatase (38-126) U/L Total Protein (6.3-8.2) g/dL Albumin (3.5-5.0) g/dL 03/07/19 03/07/19 03/07/19 Range/Units 21:56 22:00 23:01 WBC (3.8-10.6) k/uL RBC (4.30-5.90) m/uL Hgb (13.0-17.5) gm/dL Hct (39.0-53.0) % MCHC (31.0-37.0) g/dL RDW (11.5-15.5) % Plt Count (150-450) k/uL Neutrophils # (Manual) (1.3-7.7) k/uL Metamyelocytes # (Man) (0) k/uL Nucleated RBCs (0-0) /100 WBC PT (9.0-12.0) sec INR (<1.2) APTT (22.0-30.0) sec Fibrinogen (200-500) mg/dL ABG pH (7.35-7.45) ABG pCO2 (35-45) mmHg ABG HCO3 (21-25) mmol/L Chloride (98-107) mmol/L BUN (9-20) mg/dL Creatinine (0.66-1.25) mg/dL Glucose 349 H (74-99) mg/dL POC Glucose (mg/dL) 393 H 398 H (75-99) mg/dL Calcium (8.4-10.2) mg/dL Phosphorus (2.5-4.5) mg/dL Total Bilirubin (0.2-1.3) mg/dL AST (17-59) U/L ALT (21-72) U/L Alkaline Phosphatase (38-126) U/L Total Protein (6.3-8.2) g/dL Albumin (3.5-5.0) g/dL 03/08/19 03/08/19 03/08/19 Range/Units 00:01 01:01 01:54 WBC (3.8-10.6) k/uL RBC (4.30-5.90) m/uL Hgb (13.0-17.5) gm/dL Hct (39.0-53.0) % MCHC (31.0-37.0) g/dL RDW (11.5-15.5) % Plt Count (150-450) k/uL Neutrophils # (Manual) (1.3-7.7) k/uL Metamyelocytes # (Man) (0) k/uL Nucleated RBCs (0-0) /100 WBC PT (9.0-12.0) sec INR (<1.2) APTT (22.0-30.0) sec Fibrinogen (200-500) mg/dL ABG pH (7.35-7.45) ABG pCO2 (35-45) mmHg ABG HCO3 (21-25) mmol/L Chloride (98-107) mmol/L BUN (9-20) mg/dL Creatinine (0.66-1.25) mg/dL Glucose (74-99) mg/dL POC Glucose (mg/dL) 398 H 398 H 387 H (75-99) mg/dL Calcium (8.4-10.2) mg/dL Phosphorus (2.5-4.5) mg/dL Total Bilirubin (0.2-1.3) mg/dL AST (17-59) U/L ALT (21-72) U/L Alkaline Phosphatase (38-126) U/L Total Protein (6.3-8.2) g/dL Albumin (3.5-5.0) g/dL 03/08/19 03/08/19 03/08/19 Range/Units 02:02 03:01 04:01 WBC (3.8-10.6) k/uL RBC (4.30-5.90) m/uL Hgb (13.0-17.5) gm/dL Hct (39.0-53.0) % MCHC (31.0-37.0) g/dL RDW (11.5-15.5) % Plt Count (150-450) k/uL Neutrophils # (Manual) (1.3-7.7) k/uL Metamyelocytes # (Man) (0) k/uL Nucleated RBCs (0-0) /100 WBC PT (9.0-12.0) sec INR (<1.2) APTT (22.0-30.0) sec Fibrinogen (200-500) mg/dL ABG pH 7.15 L* (7.35-7.45) ABG pCO2 50 H (35-45) mmHg ABG HCO3 18 L (21-25) mmol/L Chloride (98-107) mmol/L BUN (9-20) mg/dL Creatinine (0.66-1.25) mg/dL Glucose (74-99) mg/dL POC Glucose (mg/dL) 362 H 352 H (75-99) mg/dL Calcium (8.4-10.2) mg/dL Phosphorus (2.5-4.5) mg/dL Total Bilirubin (0.2-1.3) mg/dL AST (17-59) U/L ALT (21-72) U/L Alkaline Phosphatase (38-126) U/L Total Protein (6.3-8.2) g/dL Albumin (3.5-5.0) g/dL 03/08/19 03/08/19 03/08/19 Range/Units 04:02 04:02 04:02 WBC 55.1 H* (3.8-10.6) k/uL RBC 2.71 L (4.30-5.90) m/uL Hgb 7.4 L (13.0-17.5) gm/dL Hct 24.4 L (39.0-53.0) % MCHC 30.3 L (31.0-37.0) g/dL RDW 18.6 H (11.5-15.5) % Plt Count 97 L (150-450) k/uL Neutrophils # (Manual) 53.90 H (1.3-7.7) k/uL Metamyelocytes # (Man) 1.10 H (0) k/uL Nucleated RBCs 1 H (0-0) /100 WBC PT 23.2 H (9.0-12.0) sec INR 2.4 H (<1.2) APTT 31.7 H (22.0-30.0) sec Fibrinogen 198 L (200-500) mg/dL ABG pH (7.35-7.45) ABG pCO2 (35-45) mmHg ABG HCO3 (21-25) mmol/L Chloride 97 L (98-107) mmol/L BUN 38 H (9-20) mg/dL Creatinine 2.53 H (0.66-1.25) mg/dL Glucose 298 H (74-99) mg/dL POC Glucose (mg/dL) (75-99) mg/dL Calcium 5.7 L* (8.4-10.2) mg/dL Phosphorus 7.6 H (2.5-4.5) mg/dL Total Bilirubin 4.0 H (0.2-1.3) mg/dL AST 79396 H (17-59) U/L ALT 4530 H (21-72) U/L Alkaline Phosphatase 262 H (38-126) U/L Total Protein 3.5 L (6.3-8.2) g/dL Albumin 1.5 L (3.5-5.0) g/dL 03/08/19 03/08/19 03/08/19 Range/Units 05:06 05:58 06:54 WBC (3.8-10.6) k/uL RBC (4.30-5.90) m/uL Hgb (13.0-17.5) gm/dL Hct (39.0-53.0) % MCHC (31.0-37.0) g/dL RDW (11.5-15.5) % Plt Count (150-450) k/uL Neutrophils # (Manual) (1.3-7.7) k/uL Metamyelocytes # (Man) (0) k/uL Nucleated RBCs (0-0) /100 WBC PT (9.0-12.0) sec INR (<1.2) APTT (22.0-30.0) sec Fibrinogen (200-500) mg/dL ABG pH 7.24 L (7.35-7.45) ABG pCO2 50 H (35-45) mmHg ABG HCO3 (21-25) mmol/L Chloride (98-107) mmol/L BUN (9-20) mg/dL Creatinine (0.66-1.25) mg/dL Glucose (74-99) mg/dL POC Glucose (mg/dL) 319 H 306 H (75-99) mg/dL Calcium (8.4-10.2) mg/dL Phosphorus (2.5-4.5) mg/dL Total Bilirubin (0.2-1.3) mg/dL AST (17-59) U/L ALT (21-72) U/L Alkaline Phosphatase (38-126) U/L Total Protein (6.3-8.2) g/dL Albumin (3.5-5.0) g/dL 03/08/19 03/08/19 03/08/19 Range/Units 06:54 08:12 09:14 WBC (3.8-10.6) k/uL RBC (4.30-5.90) m/uL Hgb (13.0-17.5) gm/dL Hct (39.0-53.0) % MCHC (31.0-37.0) g/dL RDW (11.5-15.5) % Plt Count (150-450) k/uL Neutrophils # (Manual) (1.3-7.7) k/uL Metamyelocytes # (Man) (0) k/uL Nucleated RBCs (0-0) /100 WBC PT (9.0-12.0) sec INR (<1.2) APTT (22.0-30.0) sec Fibrinogen (200-500) mg/dL ABG pH (7.35-7.45) ABG pCO2 (35-45) mmHg ABG HCO3 (21-25) mmol/L Chloride (98-107) mmol/L BUN (9-20) mg/dL Creatinine (0.66-1.25) mg/dL Glucose (74-99) mg/dL POC Glucose (mg/dL) 286 H 254 H 240 H (75-99) mg/dL Calcium (8.4-10.2) mg/dL Phosphorus (2.5-4.5) mg/dL Total Bilirubin (0.2-1.3) mg/dL AST (17-59) U/L ALT (21-72) U/L Alkaline Phosphatase (38-126) U/L Total Protein (6.3-8.2) g/dL Albumin (3.5-5.0) g/dL 03/08/19 03/08/19 03/08/19 Range/Units 10:08 11:18 11:22 WBC (3.8-10.6) k/uL RBC (4.30-5.90) m/uL Hgb (13.0-17.5) gm/dL Hct (39.0-53.0) % MCHC (31.0-37.0) g/dL RDW (11.5-15.5) % Plt Count (150-450) k/uL Neutrophils # (Manual) (1.3-7.7) k/uL Metamyelocytes # (Man) (0) k/uL Nucleated RBCs (0-0) /100 WBC PT (9.0-12.0) sec INR (<1.2) APTT (22.0-30.0) sec Fibrinogen (200-500) mg/dL ABG pH 7.23 L (7.35-7.45) ABG pCO2 52 H (35-45) mmHg ABG HCO3 (21-25) mmol/L Chloride (98-107) mmol/L BUN (9-20) mg/dL Creatinine (0.66-1.25) mg/dL Glucose (74-99) mg/dL POC Glucose (mg/dL) 197 H 159 H (75-99) mg/dL Calcium (8.4-10.2) mg/dL Phosphorus (2.5-4.5) mg/dL Total Bilirubin (0.2-1.3) mg/dL AST (17-59) U/L ALT (21-72) U/L Alkaline Phosphatase (38-126) U/L Total Protein (6.3-8.2) g/dL Albumin (3.5-5.0) g/dL 03/08/19 03/08/19 03/08/19 Range/Units 11:47 13:02 14:15 WBC (3.8-10.6) k/uL RBC (4.30-5.90) m/uL Hgb (13.0-17.5) gm/dL Hct (39.0-53.0) % MCHC (31.0-37.0) g/dL RDW (11.5-15.5) % Plt Count (150-450) k/uL Neutrophils # (Manual) (1.3-7.7) k/uL Metamyelocytes # (Man) (0) k/uL Nucleated RBCs (0-0) /100 WBC PT (9.0-12.0) sec INR (<1.2) APTT (22.0-30.0) sec Fibrinogen (200-500) mg/dL ABG pH (7.35-7.45) ABG pCO2 (35-45) mmHg ABG HCO3 (21-25) mmol/L Chloride (98-107) mmol/L BUN (9-20) mg/dL Creatinine (0.66-1.25) mg/dL Glucose (74-99) mg/dL POC Glucose (mg/dL) 164 H 157 H 147 H (75-99) mg/dL Calcium (8.4-10.2) mg/dL Phosphorus (2.5-4.5) mg/dL Total Bilirubin (0.2-1.3) mg/dL AST (17-59) U/L ALT (21-72) U/L Alkaline Phosphatase (38-126) U/L Total Protein (6.3-8.2) g/dL Albumin (3.5-5.0) g/dL 03/08/19 03/08/19 03/08/19 Range/Units 15:21 15:59 17:27 WBC (3.8-10.6) k/uL RBC (4.30-5.90) m/uL Hgb (13.0-17.5) gm/dL Hct (39.0-53.0) % MCHC (31.0-37.0) g/dL RDW (11.5-15.5) % Plt Count (150-450) k/uL Neutrophils # (Manual) (1.3-7.7) k/uL Metamyelocytes # (Man) (0) k/uL Nucleated RBCs (0-0) /100 WBC PT (9.0-12.0) sec INR (<1.2) APTT (22.0-30.0) sec Fibrinogen (200-500) mg/dL ABG pH (7.35-7.45) ABG pCO2 (35-45) mmHg ABG HCO3 (21-25) mmol/L Chloride (98-107) mmol/L BUN (9-20) mg/dL Creatinine (0.66-1.25) mg/dL Glucose (74-99) mg/dL POC Glucose (mg/dL) 130 H 127 H 118 H (75-99) mg/dL Calcium (8.4-10.2) mg/dL Phosphorus (2.5-4.5) mg/dL Total Bilirubin (0.2-1.3) mg/dL AST (17-59) U/L ALT (21-72) U/L Alkaline Phosphatase (38-126) U/L Total Protein (6.3-8.2) g/dL Albumin (3.5-5.0) g/dL Microbiology - Last 24 Hours (Table) 03/08/19 09:50 Body Fluid Culture - Preliminary Char 03/06/19 12:08 Gram Stain - Final Other - Other Wound Culture - Final Escherichia coli 03/06/19 09:50 Blood Culture - Preliminary Blood No Growth after 48 hours 03/06/19 11:03 Gram Stain - Final Sputum Sputum Culture - Final Escherichia coli 03/01/19 17:47 Blood Culture - Final Blood No Growth after 144 hours Assessment and Plan Assessment: ESBL E. Coli Aspiration pneumonia with septic shock, Acute hypoxic respiratory failure, ARDS, ESBL E coli intraabdominal infection. - IVF - vanco and merrem, await ID for deescalation - Levo, Vaso - pulmonary recommendations, infectious disease recommendations - Patient is on maximal ventilatory support, is paralyzed, on stress dose steroids (decreased 03/08), bronchodilators - Patient initial fluids for sepsis were limited secondary to his history of systolic congestive heart failure with depressed ejection fraction -Blood cultures negative to date -Extremely poor prognosis Shock liver -Secondary to above -Supportive care as outlined above -No liver abnormalities noted on computed tomography scan 03/06 -Now with A fib with RVR given 1 bolus of amio, cardizem gtt started Acute renal failure, likely ATN due to septic shock, hyperphosphatemia -Had dialysis 03/07, unable to tolerate 03/08 -Nephrology recommendations appreciated -Strict I's and O -Avoid additional nephrotoxic agents as able Anion gap metabolic acidosis - IVF - Follow labs - treatment as above - on bicarb Normocytic anemia, thrombocytopenia - likely component of acute blood loss - follow CBC - Check PT/PTT prolonged /fibrinogen in AM- ? secondary to massive liver dysfuntionvs DIC, No current signs of bleeding. Acute toxic encephalopathy - treatment as above A fib with RVR, resolved now in NSR - Cardio recs appreciated - hold anticoagulation - on eliquis at baseline Lactic acidosis - IVF - repeat lactic acid Elevated troponin - stress induced - no need to clinically follow Small bowel obstruction status post surgical intervention, ileus -Found have small bowel obstruction as well as acute ischemic enteritis - management per surgery - NPO currently - pain control - antiemetics - Dressing in place over midline DM 2 with hyperglycemia - Insuli gtt - follow BS closely Adrenal insufficiency -On stress dose steroids Obstructive sleep apnea -BiPAP at night once off vent COPD without exacerbation-chronic hypoxic respiratory failure with baseline 2 L nasal cannula -DuoNeb's 4 times daily -Pulmonary hygiene -Continue oxygen therapy HLD - statin DecompensatedCompensated systolic congestive heart failure -Lasix on hold due to worsening renal function Chronic: Hypothyroidism Coronary artery disease Neuropathy Chronic anemia History of pancreatic neuroendocrine tumor HTN Recent group B strep bacteremia DVT: SCDS A total of 35 minutes of care spent on this patient Direct contact: Dr. Julio, Nursing
[2019-03-08 19:13] LABS: Glucose,Whole Blood 111 mg/dL (75-99)
[2019-03-08 20:10] LABS: Glucose,Whole Blood 24 mg/dL (75-99)
[2019-03-08 20:10] LABS: Glucose,Whole Blood 111 mg/dL (75-99)
[2019-03-08 20:35] LABS: ABG Base Excess 0.3 mmol/L; ABG HCO3 26 mmol/L (21-25); ABG Oxygen Saturation 93.7 % (94-97); ABG PCO2 49 mmHg (35-45); ABG PH 7.33 (7.35-7.45); ABG PO2 74 mmHg (83-108); ABG TCO2 28 mmol/L (19-24); Allen Test Performed? Yes
[2019-03-08] MEDS: INSULIN DETEMIR (LEVEMIR) 100 UNIT/ML SYR SQ SCH (20:41)
[2019-03-08] MEDS: MONTELUKAST 10 MG TAB PO SCH (20:42)
[2019-03-08] MEDS: LEVOTHYROXINE 50 MCG TAB PO SCH (20:42)
[2019-03-08 21:23] LABS: Glucose,Whole Blood 120 mg/dL (75-99)
[2019-03-08 22:28] LABS: Glucose,Whole Blood 137 mg/dL (75-99)
[2019-03-08 23:18] LABS: Glucose,Whole Blood 151 mg/dL (75-99)
[2019-03-09 00:16] LABS: ABG HCO3 25 mmol/L (21-25); ABG Oxygen Saturation 91.3 % (94-97); ABG PCO2 47 mmHg (35-45); ABG PH 7.33 (7.35-7.45); ABG PO2 68 mmHg (83-108); ABG TCO2 26 mmol/L (19-24); Allen Test Performed? Yes
[2019-03-09 00:24] LABS: Glucose,Whole Blood 160 mg/dL (75-99)
[2019-03-09 01:17] LABS: Glucose,Whole Blood 177 mg/dL (75-99)
[2019-03-09 02:11] LABS: Glucose,Whole Blood 182 mg/dL (75-99)
[2019-03-09] MEDS: HYDROmorphone 0.5 MG/0.5 ML SYRINGE IVP SCH ×4 (02:49→13:37)
[2019-03-09] MEDS ORDERED: SODIUM CHLORIDE 0.9% 500 ML 500 ML IV ONE (02:57)
[2019-03-09] MEDS: ARTIFICIAL TEARS-HYPROMELLOSE DROPS 15 ML BTL BOTH EYES SCH ×3 (03:21→13:37)
[2019-03-09 03:22] LABS: Glucose,Whole Blood 183 mg/dL (75-99)
[2019-03-09] MEDS: NOREPINEPHRINE 32 MG in SODIUM CHLORIDE 0.9% 218 ML IV SCH ×2 (03:30→10:54)
[2019-03-09 04:03] LABS: Glucose,Whole Blood 187 mg/dL (75-99)
[2019-03-09 04:32] LABS: ABG HCO3 22 mmol/L (21-25); ABG Oxygen Saturation 91.7 % (94-97); ABG PCO2 47 mmHg (35-45); ABG PH 7.28 (7.35-7.45); ABG PO2 73 mmHg (83-108); ABG TCO2 23 mmol/L (19-24); Allen Test Performed? Yes
[2019-03-09 04:37] LABS: Anisocytosis Slight; HCT 23.9 % (39.0-53.0); HGB 7.6 gm/dL (13.0-17.5); Hypochromasia Marked; MCH 27.3 pg (25.0-35.0); MCHC 31.6 g/dL (31.0-37.0); MCV 86.6 fL (80.0-100.0); Mean Platelet Volume 14.4; Poikilocytosis Moderate; RBC 2.76 m/uL (4.30-5.90); RDW 18.8 % (11.5-15.5)
[2019-03-09 04:39] LABS: WBC 66.4 k/uL (3.8-10.6)
[2019-03-09 04:55] LABS: Albumin 1.4 g/dL (3.5-5.0); Magnesium 1.8 mg/dL (1.6-2.3); Phosphorus 6.6 mg/dL (2.5-4.5); Total Bilirubin 5.7 mg/dL (0.2-1.3); Total Protein 3.5 g/dL (6.3-8.2)
[2019-03-09 04:59] LABS: Platelet Count 81 k/uL (150-450)
[2019-03-09 05:01] LABS: INR 2.1 (<1.2); Partial Thromboplastin Time 34.7 sec (22.0-30.0)
[2019-03-09 05:33] LABS: Calcium 5.3 mg/dL (8.4-10.2)
[2019-03-09 05:36] LABS: Glucose,Whole Blood 189 mg/dL (75-99)
[2019-03-09 06:22] LABS: Glucose,Whole Blood 187 mg/dL (75-99)
[2019-03-09] MEDS ORDERED: CALCIUM GLUCONATE 1 GM in SODIUM CHLORIDE 0.9% 100 ML IVPB ONE (07:00)
[2019-03-09] MEDS: IPRATROPIUM-ALBUTEROL 3 ML NEB INHALATION SCH ×3 (07:14→11:10)
--- NOTE | 2019-03-09 07:19 | XR ---
EXAMINATION TYPE: XR chest 1V DATE OF EXAM: 03/09/2019 COMPARISON: 03/08/2019 HISTORY: Ventilatory dependent respiratory failure TECHNIQUE: Single frontal view of the chest is obtained. FINDINGS: Endotracheal tube and enteric tube appear similar in position to the prior. Again the ente sheila tube could be advanced approximately 5 cm for optimal placement. Post CABG changes are seen of th e chest. There are similar bilateral patchy alveolar and interstitial opacities throughout both lungs with peripheral sparing. Cardiomediastinal silhouette is stable. No new pneumothorax. Cervical fusio n device is partially visualized. Trace right pleural effusion is unchanged. IMPRESSION: Similar-appearing bilateral alveolar and interstitial opacities with peripheral sparing favoring ARDS or pulmonary edema. Again the enteric tube could be advanced approximately 5 cm for opt imal placement.
[2019-03-09 07:21] LABS: Glucose,Whole Blood 175 mg/dL (75-99)
[2019-03-09 08:13] LABS: Glucose,Whole Blood 180 mg/dL (75-99)
[2019-03-09] MEDS: INSULIN REGULAR 100 UNIT in SODIUM CHLORIDE 0.9% 100 ML IV SCH (08:15)
[2019-03-09] MEDS: SODIUM CHLORIDE 0.9% 150 ML with VASOPRESSIN 60 UNIT IV SCH ×2 (08:19)
[2019-03-09] MEDS ORDERED: FUROSEMIDE 10 MG/ML 10 ML VIAL IV STA (09:04)
[2019-03-09] MEDS: DILTIAZEM 125 MG in SODIUM CHLORIDE 0.9% 100 ML IV SCH (09:05)
[2019-03-09 09:12] LABS: Glucose,Whole Blood 171 mg/dL (75-99)
[2019-03-09] MEDS: HEPARIN SODIUM,PORCINE 5,000 UNIT/ML 1 ML VIAL SQ SCH (09:30)
[2019-03-09] MEDS ORDERED: SODIUM CHLORIDE 0.45% 1,000 ML with SODIUM BICARB (1 MEQ/ML) 75 ML IV SCH ×2 (09:30)
[2019-03-09] MEDS: HYDROCORTISONE SUCCINATE 100 MG/2 ML VIAL IV SCH (09:31)
[2019-03-09] MEDS: CHLORHEXIDINE GLUCONATE 15 ML CUP MUCOUS MEM SCH (09:32)
[2019-03-09] MEDS: MEROPENEM 1 GM in SODIUM CHLORIDE 0.9% 100 ML IVPB SCH (09:32)
[2019-03-09] MEDS: PANTOPRAZOLE 40 MG/10 ML VIAL IVP SCH (09:33)
--- NOTE | 2019-03-09 09:38 | P.PN ---
Subjective Patient is seen in follow-up for acute kidney injury. He remains on Levophed. He is also on Cardizem drip for A. fib with RVR. He is receiving TPN. Patient noted to have small bowel obstruction and underwent exploratory laparotomy with drainage of intra-abdominal seroma, right colectomy and small bowel resection on March 06. Also being treated for ESBL E. coli aspiration pneumonia. He remains oliguric. He was started on hemodialysis on March 07. Patient could not tolerate ultrafiltration yesterday due to hemodynamics. Vital signs: Blood pressure stable on vasopressors. General: The patient appeared well nourished and normally developed. HEENT: Head exam is unremarkable. Neck is without jugular venous distension. Intubated. LUNGS: Lungs are clear to auscultation and percussion. Breath sounds decreased. HEART: Rate and Rhythm are regular. First and second heart sounds normal. No murmurs, rubs or gallops. ABDOMEN: Abdominal exam reveals decreased bowel sounds. EXTREMITITES: 1+ edema. Objective - Vital Signs Vital signs: Vital Signs Temp 98.5 F 03/09/19 04:00 Pulse 120 H 03/09/19 08:14 Resp 34 H 03/09/19 07:00 BP 90/70 03/09/19 06:30 Pulse Ox 91 L 03/09/19 00:00 Intake & Output 03/08/19 03/09/19 03/09/19 18:59 06:59 18:59 Intake Total 4350.075 2770.756 385.278 Output Total 980 1165 90 Balance 3370.075 1605.756 295.278 Weight 117 kg Intake: IV 2428.5 2571.0 145.5 Meropenem 1 gm In Sodium 100 Chloride 0.9% 100 ml @ 200 mls/hr IVPB Q12HR [facility] Rx#:[id number] Mvi, Adult No.4 with Vit 95.0 K 10 ml Trace (Conc-1Ml/ Dose) 1 ml In Amino Acid 4.25%-D10w+Lytes*E* 1,000 ml @ 95 mls/hr IV .BY DURATION [facility] Rx#: [id number] Parenteral Electrolytes 427.5 570.0 47.5 20 ml Mvi, Adult No.4 with Vit K 10 ml Trace ( Conc-1Ml/Dose) 1 ml In Amino Acid 4.25%-D10w 1, 000 ml @ 95 mls/hr IV .BY DURATION [facility] Rx#: [id number] Pressure Bags 36 36 3 Sodium Chloride 0.45% 1, 1650 525 000 ml @ 150 mls/hr IV . Q7H40M [place] with Sodium Bicarb (1 Meq/ml) 150 ml Rx#:[id number] Sodium Chloride 0.45% 1, 600 75 000 ml @ 75 mls/hr IV . [id number] [place] with Sodium Bicarb (1 Meq/ml) 150 ml Rx#:[id number] Sodium Chloride 0.9% 500 500 ml 500 ml @ 999 mls/hr IV .Q31M [facility] Rx#:[id number] Sodium Chloride 0.9% @ 20 220 240 20 ml/hr Intake, IV Titration 1321.575 199.756 239.778 Amount Cisatracurium 200 mg In 134.375 Sodium Chloride 0.9% 180 ml @ 1 MCG/KG/MIN 5.646 mls/hr IV .Q24H [facility] Rx#: [id number] Diltiazem 125 mg In 99.75 Sodium Chloride 0.9% 100 ml @ 5 MG/HR 5 mls/hr IV .Q24H [facility] Rx#:[id number] Insulin Regular 100 unit 579.908 51.546 27.733 In Sodium Chloride 0.9% 100 ml @ Per Protocol IV .Q0M [facility] Rx#:[id number] Norepinephrine 32 mg In 250.000 148.210 112.295 Sodium Chloride 0.9% 218 ml @ 0.05 MCG/KG/MIN 2. 205 mls/hr IV .Q24H [facility] Rx#:[id number] Parenteral Electrolytes 257.292 20 ml In Amino Acid 4.25% -D10w 1,000 ml @ 95 mls/ hr IV .BY DURATION [facility] Rx #:[id number] Propofol 1,000 mg In 100 Empty Bag 1 bag @ Titrate IV .Q0M [facility] Rx#: [id number] Hemodialysis 600 Output: Gastric Drainage 350 Drainage 810 725 90 Right Abdomen 810 725 90 Urine 170 90 0 Other: Voiding Method Indwelling Catheter Indwelling Catheter ABP, PAP, CO, CI - Last Documented Arterial Blood Pressure 91/54 - Labs CBC & Chem 7: 03/09/19 04:30 03/09/19 04:30 Labs: Abnormal Lab Results - Last 24 Hours (Table) 03/08/19 03/08/19 03/08/19 Range/Units 04:02 10:08 11:18 WBC (3.8-10.6) k/uL RBC (4.30-5.90) m/uL Hgb (13.0-17.5) gm/dL Hct (39.0-53.0) % RDW (11.5-15.5) % Plt Count (150-450) k/uL PT (9.0-12.0) sec INR (<1.2) APTT (22.0-30.0) sec Fibrinogen (200-500) mg/dL ABG pH (7.35-7.45) ABG pCO2 (35-45) mmHg ABG pO2 (83-108) mmHg ABG HCO3 (21-25) mmol/L ABG Total CO2 (19-24) mmol/L ABG O2 Saturation (94-97) % Sodium (137-145) mmol/L Chloride (98-107) mmol/L BUN (9-20) mg/dL Creatinine (0.66-1.25) mg/dL Glucose (74-99) mg/dL POC Glucose (mg/dL) 197 H 159 H (75-99) mg/dL Calcium (8.4-10.2) mg/dL Phosphorus (2.5-4.5) mg/dL Total Bilirubin 4.0 H (0.2-1.3) mg/dL AST 95516 H (17-59) U/L ALT 4530 H (21-72) U/L Alkaline Phosphatase 262 H (38-126) U/L Total Protein 3.5 L (6.3-8.2) g/dL Albumin 1.5 L (3.5-5.0) g/dL 03/08/19 03/08/19 03/08/19 Range/Units 11:22 11:47 13:02 WBC (3.8-10.6) k/uL RBC (4.30-5.90) m/uL Hgb (13.0-17.5) gm/dL Hct (39.0-53.0) % RDW (11.5-15.5) % Plt Count (150-450) k/uL PT (9.0-12.0) sec INR (<1.2) APTT (22.0-30.0) sec Fibrinogen (200-500) mg/dL ABG pH 7.23 L (7.35-7.45) ABG pCO2 52 H (35-45) mmHg ABG pO2 (83-108) mmHg ABG HCO3 (21-25) mmol/L ABG Total CO2 (19-24) mmol/L ABG O2 Saturation (94-97) % Sodium (137-145) mmol/L Chloride (98-107) mmol/L BUN (9-20) mg/dL Creatinine (0.66-1.25) mg/dL Glucose (74-99) mg/dL POC Glucose (mg/dL) 164 H 157 H (75-99) mg/dL Calcium (8.4-10.2) mg/dL Phosphorus (2.5-4.5) mg/dL Total Bilirubin (0.2-1.3) mg/dL AST (17-59) U/L ALT (21-72) U/L Alkaline Phosphatase (38-126) U/L Total Protein (6.3-8.2) g/dL Albumin (3.5-5.0) g/dL 03/08/19 03/08/19 03/08/19 Range/Units 14:15 15:21 15:59 WBC (3.8-10.6) k/uL RBC (4.30-5.90) m/uL Hgb (13.0-17.5) gm/dL Hct (39.0-53.0) % RDW (11.5-15.5) % Plt Count (150-450) k/uL PT (9.0-12.0) sec INR (<1.2) APTT (22.0-30.0) sec Fibrinogen (200-500) mg/dL ABG pH (7.35-7.45) ABG pCO2 (35-45) mmHg ABG pO2 (83-108) mmHg ABG HCO3 (21-25) mmol/L ABG Total CO2 (19-24) mmol/L ABG O2 Saturation (94-97) % Sodium (137-145) mmol/L Chloride (98-107) mmol/L BUN (9-20) mg/dL Creatinine (0.66-1.25) mg/dL Glucose (74-99) mg/dL POC Glucose (mg/dL) 147 H 130 H 127 H (75-99) mg/dL Calcium (8.4-10.2) mg/dL Phosphorus (2.5-4.5) mg/dL Total Bilirubin (0.2-1.3) mg/dL AST (17-59) U/L ALT (21-72) U/L Alkaline Phosphatase (38-126) U/L Total Protein (6.3-8.2) g/dL Albumin (3.5-5.0) g/dL 03/08/19 03/08/19 03/08/19 Range/Units 17:27 18:58 19:48 WBC (3.8-10.6) k/uL RBC (4.30-5.90) m/uL Hgb (13.0-17.5) gm/dL Hct (39.0-53.0) % RDW (11.5-15.5) % Plt Count (150-450) k/uL PT (9.0-12.0) sec INR (<1.2) APTT (22.0-30.0) sec Fibrinogen (200-500) mg/dL ABG pH (7.35-7.45) ABG pCO2 (35-45) mmHg ABG pO2 (83-108) mmHg ABG HCO3 (21-25) mmol/L ABG Total CO2 (19-24) mmol/L ABG O2 Saturation (94-97) % Sodium (137-145) mmol/L Chloride (98-107) mmol/L BUN (9-20) mg/dL Creatinine (0.66-1.25) mg/dL Glucose (74-99) mg/dL POC Glucose (mg/dL) 118 H 111 H 24 L (75-99) mg/dL Calcium (8.4-10.2) mg/dL Phosphorus (2.5-4.5) mg/dL Total Bilirubin (0.2-1.3) mg/dL AST (17-59) U/L ALT (21-72) U/L Alkaline Phosphatase (38-126) U/L Total Protein (6.3-8.2) g/dL Albumin (3.5-5.0) g/dL 03/08/19 03/08/19 03/08/19 Range/Units 20:06 20:33 21:09 WBC (3.8-10.6) k/uL RBC (4.30-5.90) m/uL Hgb (13.0-17.5) gm/dL Hct (39.0-53.0) % RDW (11.5-15.5) % Plt Count (150-450) k/uL PT (9.0-12.0) sec INR (<1.2) APTT (22.0-30.0) sec Fibrinogen (200-500) mg/dL ABG pH 7.33 L (7.35-7.45) ABG pCO2 49 H (35-45) mmHg ABG pO2 74 L (83-108) mmHg ABG HCO3 26 H (21-25) mmol/L ABG Total CO2 28 H (19-24) mmol/L ABG O2 Saturation 93.7 L (94-97) % Sodium (137-145) mmol/L Chloride (98-107) mmol/L BUN (9-20) mg/dL Creatinine (0.66-1.25) mg/dL Glucose (74-99) mg/dL POC Glucose (mg/dL) 111 H 120 H (75-99) mg/dL Calcium (8.4-10.2) mg/dL Phosphorus (2.5-4.5) mg/dL Total Bilirubin (0.2-1.3) mg/dL AST (17-59) U/L ALT (21-72) U/L Alkaline Phosphatase (38-126) U/L Total Protein (6.3-8.2) g/dL Albumin (3.5-5.0) g/dL 03/08/19 03/08/19 03/09/19 Range/Units 22:25 23:13 00:11 WBC (3.8-10.6) k/uL RBC (4.30-5.90) m/uL Hgb (13.0-17.5) gm/dL Hct (39.0-53.0) % RDW (11.5-15.5) % Plt Count (150-450) k/uL PT (9.0-12.0) sec INR (<1.2) APTT (22.0-30.0) sec Fibrinogen (200-500) mg/dL ABG pH (7.35-7.45) ABG pCO2 (35-45) mmHg ABG pO2 (83-108) mmHg ABG HCO3 (21-25) mmol/L ABG Total CO2 (19-24) mmol/L ABG O2 Saturation (94-97) % Sodium (137-145) mmol/L Chloride (98-107) mmol/L BUN (9-20) mg/dL Creatinine (0.66-1.25) mg/dL Glucose (74-99) mg/dL POC Glucose (mg/dL) 137 H 151 H 160 H (75-99) mg/dL Calcium (8.4-10.2) mg/dL Phosphorus (2.5-4.5) mg/dL Total Bilirubin (0.2-1.3) mg/dL AST (17-59) U/L ALT (21-72) U/L Alkaline Phosphatase (38-126) U/L Total Protein (6.3-8.2) g/dL Albumin (3.5-5.0) g/dL 03/09/19 03/09/19 03/09/19 Range/Units 00:12 01:03 02:06 WBC (3.8-10.6) k/uL RBC (4.30-5.90) m/uL Hgb (13.0-17.5) gm/dL Hct (39.0-53.0) % RDW (11.5-15.5) % Plt Count (150-450) k/uL PT (9.0-12.0) sec INR (<1.2) APTT (22.0-30.0) sec Fibrinogen (200-500) mg/dL ABG pH 7.33 L (7.35-7.45) ABG pCO2 47 H (35-45) mmHg ABG pO2 68 L (83-108) mmHg ABG HCO3 (21-25) mmol/L ABG Total CO2 26 H (19-24) mmol/L ABG O2 Saturation 91.3 L (94-97) % Sodium (137-145) mmol/L Chloride (98-107) mmol/L BUN (9-20) mg/dL Creatinine (0.66-1.25) mg/dL Glucose (74-99) mg/dL POC Glucose (mg/dL) 177 H 182 H (75-99) mg/dL Calcium (8.4-10.2) mg/dL Phosphorus (2.5-4.5) mg/dL Total Bilirubin (0.2-1.3) mg/dL AST (17-59) U/L ALT (21-72) U/L Alkaline Phosphatase (38-126) U/L Total Protein (6.3-8.2) g/dL Albumin (3.5-5.0) g/dL 03/09/19 03/09/19 03/09/19 Range/Units 03:08 04:01 04:29 WBC (3.8-10.6) k/uL RBC (4.30-5.90) m/uL Hgb (13.0-17.5) gm/dL Hct (39.0-53.0) % RDW (11.5-15.5) % Plt Count (150-450) k/uL PT (9.0-12.0) sec INR (<1.2) APTT (22.0-30.0) sec Fibrinogen (200-500) mg/dL ABG pH 7.28 L (7.35-7.45) ABG pCO2 47 H (35-45) mmHg ABG pO2 73 L (83-108) mmHg ABG HCO3 (21-25) mmol/L ABG Total CO2 (19-24) mmol/L ABG O2 Saturation 91.7 L (94-97) % Sodium (137-145) mmol/L Chloride (98-107) mmol/L BUN (9-20) mg/dL Creatinine (0.66-1.25) mg/dL Glucose (74-99) mg/dL POC Glucose (mg/dL) 183 H 187 H (75-99) mg/dL Calcium (8.4-10.2) mg/dL Phosphorus (2.5-4.5) mg/dL Total Bilirubin (0.2-1.3) mg/dL AST (17-59) U/L ALT (21-72) U/L Alkaline Phosphatase (38-126) U/L Total Protein (6.3-8.2) g/dL Albumin (3.5-5.0) g/dL 03/09/19 03/09/19 03/09/19 Range/Units 04:30 04:30 04:30 WBC 66.4 H* (3.8-10.6) k/uL RBC 2.76 L (4.30-5.90) m/uL Hgb 7.6 L (13.0-17.5) gm/dL Hct 23.9 L (39.0-53.0) % RDW 18.8 H (11.5-15.5) % Plt Count 81 L (150-450) k/uL PT 21.0 H (9.0-12.0) sec INR 2.1 H (<1.2) APTT 34.7 H (22.0-30.0) sec Fibrinogen 149 L (200-500) mg/dL ABG pH (7.35-7.45) ABG pCO2 (35-45) mmHg ABG pO2 (83-108) mmHg ABG HCO3 (21-25) mmol/L ABG Total CO2 (19-24) mmol/L ABG O2 Saturation (94-97) % Sodium 134 L (137-145) mmol/L Chloride 97 L (98-107) mmol/L BUN 43 H (9-20) mg/dL Creatinine 2.69 H (0.66-1.25) mg/dL Glucose 166 H (74-99) mg/dL POC Glucose (mg/dL) (75-99) mg/dL Calcium 5.3 L* (8.4-10.2) mg/dL Phosphorus 6.6 H (2.5-4.5) mg/dL Total Bilirubin 5.7 H (0.2-1.3) mg/dL AST 3799 H (17-59) U/L ALT 3159 H (21-72) U/L Alkaline Phosphatase 443 H (38-126) U/L Total Protein 3.5 L (6.3-8.2) g/dL Albumin 1.4 L (3.5-5.0) g/dL 03/09/19 03/09/19 03/09/19 Range/Units 05:20 06:18 07:08 WBC (3.8-10.6) k/uL RBC (4.30-5.90) m/uL Hgb (13.0-17.5) gm/dL Hct (39.0-53.0) % RDW (11.5-15.5) % Plt Count (150-450) k/uL PT (9.0-12.0) sec INR (<1.2) APTT (22.0-30.0) sec Fibrinogen (200-500) mg/dL ABG pH (7.35-7.45) ABG pCO2 (35-45) mmHg ABG pO2 (83-108) mmHg ABG HCO3 (21-25) mmol/L ABG Total CO2 (19-24) mmol/L ABG O2 Saturation (94-97) % Sodium (137-145) mmol/L Chloride (98-107) mmol/L BUN (9-20) mg/dL Creatinine (0.66-1.25) mg/dL Glucose (74-99) mg/dL POC Glucose (mg/dL) 189 H 187 H 175 H (75-99) mg/dL Calcium (8.4-10.2) mg/dL Phosphorus (2.5-4.5) mg/dL Total Bilirubin (0.2-1.3) mg/dL AST (17-59) U/L ALT (21-72) U/L Alkaline Phosphatase (38-126) U/L Total Protein (6.3-8.2) g/dL Albumin (3.5-5.0) g/dL 03/09/19 03/09/19 Range/Units 08:09 09:09 WBC (3.8-10.6) k/uL RBC (4.30-5.90) m/uL Hgb (13.0-17.5) gm/dL Hct (39.0-53.0) % RDW (11.5-15.5) % Plt Count (150-450) k/uL PT (9.0-12.0) sec INR (<1.2) APTT (22.0-30.0) sec Fibrinogen (200-500) mg/dL ABG pH (7.35-7.45) ABG pCO2 (35-45) mmHg ABG pO2 (83-108) mmHg ABG HCO3 (21-25) mmol/L ABG Total CO2 (19-24) mmol/L ABG O2 Saturation (94-97) % Sodium (137-145) mmol/L Chloride (98-107) mmol/L BUN (9-20) mg/dL Creatinine (0.66-1.25) mg/dL Glucose (74-99) mg/dL POC Glucose (mg/dL) 180 H 171 H (75-99) mg/dL Calcium (8.4-10.2) mg/dL Phosphorus (2.5-4.5) mg/dL Total Bilirubin (0.2-1.3) mg/dL AST (17-59) U/L ALT (21-72) U/L Alkaline Phosphatase (38-126) U/L Total Protein (6.3-8.2) g/dL Albumin (3.5-5.0) g/dL Microbiology - Last 24 Hours (Table) 03/08/19 09:50 Gram Stain - Preliminary [facility] Body Fluid Culture - Preliminary 03/06/19 12:08 Gram Stain - Final Other - Other Wound Culture - Final Escherichia coli 03/06/19 09:50 Blood Culture - Preliminary Blood No Growth after 48 hours 03/06/19 11:03 Gram Stain - Final Sputum Sputum Culture - Final Escherichia coli Assessment and Plan Plan: Assessment: 1. Oliguric acute kidney injury secondary to ATN secondary to septic shock. Started on hemodialysis on March 07. Completed nearly 2 hours of hemodialysis yesterday without ultrafiltration. Baseline creatinine is 1. 2. Septic shock secondary to ESBL E. coli pneumonia. Maintained on IV antibiotics. 3. Small bowel obstruction status post exploratory laparotomy, right colectomy and small bowel resection on March 06. 4. Hypocalcemia secondary to acute kidney injury and hyperphosphatemia. Corrected calcium is 7.3. 5. Hyperphosphatemia secondary to acute kidney injury. 6. Multiorgan failure including shock liver. 7. A. fib with RVR maintained on Cardizem drip. Plan: I will change IV fluids to half-normal saline with 75 meq of bicarb so he is on an isotonic solution rather than hypertonic. Lasix 80 mg IV once. Calcium was replaced this morning. Hold off on hemodialysis at this time due to hemodynamics. They will also be a discussion regarding comfort measures. Repeat labs this evening. Continue to monitor renal function and urine output closely.
--- NOTE | 2019-03-09 10:20 | PN ---
PROGRESS NOTE PULMONARY CRITICAL CARE PROGRESS NOTE DATE OF SERVICE: 03/09/2019 CRITICAL CARE TIME: 35 minutes. This is a 58-year-old male who was admitted back on February 23 for small-bowel obstruction. On the 06 of March, an A team was called. He was transferred to the ICU and intubated at that time for sepsis. He went to the operating room on March 07. He had a right colectomy with colostomy and small-bowel resection. A couple days ago he began hemodialysis. The patient remains on the ventilator. He is on the volume assist- control mode rate 34, tidal volume 500, FiO2 of 75%, PEEP of 16. Blood gases show pO2 of 73, pCO2 of 47, and pH is 7.28. These blood gases are consistent with a mild respiratory acidosis. The patient remains on multiple drips including cisatracurium or Nimbex 0.5 mcg/kg per minute with train of four monitoring, propofol 25 mcg/kg per minute, Levophed at 65 mcg/minute. A sodium bicarbonate drip with 3 amps of bicarb and 0.45 at 75 mL an hour, TPN at 47.5 mL an hour, vasopressin at 0.03 units/minute, insulin at 9 units/hour, and Cardizem drip at 5 mg an hour. The patient has not really made any progress at all and remains in dire straits. He has acute hypoxemic respiratory failure secondary to aspiration pneumonia, ARDS and septic shock as well as abdominal sepsis. The abdominal cavity is apparently positive for gram-negative bacilli and his sputum was positive for extended spectrum beta lactamase producing E coli. He has a history of acute metabolic encephalopathy, atrial fibrillation, acute metabolic acidosis, status post exploratory laparotomy, small bowel obstruction, Streptococcus bacteremia, adrenal insufficiency, type 2 diabetes, and multiorgan system failure. In addition, he suffers from COPD, sleep apnea, benign essential hypertension, hyperlipidemia, hypothyroidism, CAD, chronic anemia, and pancreatic neuroendocrine tumor. PHYSICAL EXAMINATION: VITAL SIGNS: Current vital signs are reviewed. Temperature is 98.5, heart rate is 120, respiratory rate 34, blood pressure was 91/54, saturations are low 90s. Currently sedated and paralyzed. HEENT: Examination is grossly unremarkable. He has got an orally placed endotracheal tube and NG tube. There is train of four monitoring in place. NECK: Supple. Full range of motion. No adenopathy. CARDIOVASCULAR: Examination reveals tachycardia. Heart rate 120. It is a bit irregular. LUNGS: Reveal coarse rhonchi. Breath sounds are diminished throughout. A few scattered crackles. ABDOMEN: Soft. Bowel sounds are not noted. EXTREMITIES: Are intact. Mild edema noted. SKIN: Without rash. NEUROLOGIC: Examination could not be adequately performed. MICROBIOLOGY: Microbiology shows E. coli in the sputum and wound culture. It is an extended spectrum beta lactamase producing E coli. X-RAY: A chest x-ray is done. It shows diffuse bilateral infiltrates. They involve almost all quadrants of the lung. LAB DATA: Additionally, lab data shows a white count of 66.4, hemoglobin 7.6, hematocrit 23.9, platelet count 81,000. PT 21, INR 2.1, PTT 34.7. Blood gases have been noted. Sodium 134, potassium 5, chloride 97, CO2 of 22. BUN and creatinine were 43 and 2.69. Calcium is 5.3. AST is 3799, ALT 3159. These are consistent with shock liver or septic hepatopathy. Albumin is down to 1.4. The rest of the labs look okay. MEDICATIONS: Medications are reviewed. ASSESSMENT: 1. Acute hypoxemic respiratory failure requiring intubation and mechanical ventilation on March 06, secondary to aspiration pneumonia, acute respiratory distress syndrome and septic shock. 2. Extended spectrum beta lactamase producing Escherichia coli in the sputum and also in the abdominal wounds. 3. Acute metabolic encephalopathy. 4. Shock liver/septic hepatopathy. 5. Atrial fibrillation with rapid ventricular response. 6. Acute metabolic acidosis. 7. Status post exploratory laparotomy on March 12, right colectomy and colostomy as well as small-bowel resection. 8. Recent history of Streptococcus bacteremia. 9. Adrenal insufficiency. 10.Type 2 diabetes mellitus. 11.Multiorgan system failure. 12.Chronic obstructive pulmonary disease. 13.Sleep apnea syndrome. 14.Benign essential hypertension. 15.Hyperlipidemia. 16.Hypothyroidism. 17.Coronary artery disease. 18.Chronic anemia. 19.History of pancreatic neuroendocrine tumor. PLAN: His overall prognosis remains extremely poor. Mortality certainly in excess of 95% at this point. He remains on multiple drugs including Nimbex, propofol, Levophed, bicarb drip, TPN, vasopressin, insulin, and Cardizem drip. He remains on life support. His FiO2 is 75% and PEEP is at 16. Apparently according to the nurse, the family has discussed withdrawal of life support. I will speak to them today about that. I think that is reasonable. Additional recommendations and suggestions are forthcoming. Labs, x-rays and medications are all reviewed. Medications will be reviewed and any unnecessary ones will be discontinued. We will continue to follow. Again prognosis is extremely poor. CRITICAL CARE TIME: 35 minutes. JUJU / AKANKSHA: [id number] /
[2019-03-09 10:32] LABS: Glucose,Whole Blood 160 mg/dL (75-99)
[2019-03-09] MEDS: POTASSIUM CHLORIDE IV SCH ×14 (10:46→13:41)
[2019-03-09] MEDS: [UNRECOGNIZED DRUG - OTHER] IV SCH ×14 (10:46→13:41)
[2019-03-09] MEDS: CALCIUM GLUCONATE IV SCH ×14 (10:46→13:41)
[2019-03-09] MEDS: SODIUM ACETATE IV SCH ×14 (10:46→13:41)
[2019-03-09 11:06] LABS: Glucose,Whole Blood 160 mg/dL (75-99)
[2019-03-09 12:02] VITALS: BP 92/78
--- NOTE | 2019-03-09 12:23 | PN ---
PROGRESS NOTE Mr. Ribera is status post abdominal surgery. He is in and out of atrial fibrillation, but this morning he is in sinus rhythm, hemodynamically unstable on a combination of vasopressin and Levophed. Urine output is very limited. He had dialysis for 2 hours yesterday. Blood pressure is about 104 systolic, S1-S2 heard normally. It appears to be regular, short systolic murmur noted. Lungs reveal diminished air entry. The rest of physical exam is unchanged. Prognosis remains poor. Mortality risk is quite high. No other suggestions from a cardiac standpoint at this time. His remains in sinus rhythm. We will therefore leave him on Cardizem and defer any amiodarone. MMODL / IJN: [id number] /
[2019-03-09 12:34] LABS: Glucose,Whole Blood 148 mg/dL (75-99)
--- NOTE | 2019-03-09 12:46 | P.PN ---
<Sis Garcia Johana - Last Filed: 03/09/19 12:44> Subjective Progress Note Date: 03/09/19 CHIEF COMPLAINT: Abdominal pain HISTORY OF PRESENT ILLNESS: Patient is status post exploratory laparotomy, repair of incisional hernia, partial omentectomy, lysis of adhesions, right colectomy, and small bowel resection performed on 02/27/2019. He is also status post exploratory laparotomy and drainage of intra-abdominal seroma/hematoma performed on 03/06/2018. He remains critically ill in the intensive care unit. He is on mechanical ventilation. He remains on vasopressor support. TPN infusing. TATE drain with approximately 50cc serous drainage per hour per nursing. Patients sister is at the bedside and states patients spouse will be in later with additional family members to discuss possible comfort care measures. PHYSICAL EXAM: VITAL SIGNS: Reviewed. GENERAL: Well-developed. Anasarca. Mottling noted to extremities. HEENT: ET tube noted. NG to LIS. No sclera icterus. Extraocular movements grossly intact. Moist buccal mucosa. Head is atraumatic, normocephalic. ABDOMEN: Obese. Soft. Absent bowel sounds. Dressing intact. Abdominal binder noted. TATE drain with serous fluid. NEUROLOGIC: Unable to assess secondary to mechanical ventilation. ASSESSMENT: 1. Small bowel obstruction, s/p exploratory laparotomy, repair of incisional hernia, partial omentectomy, lysis of adhesions, right colectomy, and small bowel resection 2. Acute hypoxic respiratory failure requiring mechanical ventilation PLAN: 1. Continue supportive measures 2. Continue TPN 3. Continue NG to LIS 4. Family to discuss possible comfort care this afternoon Nurse practitioner note has been reviewed by physician. Signing provider agrees with the documented findings, assessment, and plan of care. Objective - Vital Signs Vital signs: Vital Signs Temp 98.6 F 03/09/19 08:00 Pulse 104 H 03/09/19 11:30 Resp 34 H 03/09/19 11:30 BP 92/78 03/09/19 08:30 Pulse Ox 91 L 03/09/19 00:00 Intake & Output 03/08/19 03/09/19 03/09/19 18:59 06:59 18:59 Intake Total 4350.075 2770.756 1053.445 Output Total 980 1165 349 Balance 3370.075 1605.756 704.445 Weight 117 kg Intake: IV 2428.5 2571.0 682.0 Meropenem 1 gm In Sodium 100 100 Chloride 0.9% 100 ml @ 200 mls/hr IVPB Q12HR [facility] Rx#:[id number] Mvi, Adult No.4 with Vit 95.0 K 10 ml Trace (Conc-1Ml/ Dose) 1 ml In Amino Acid 4.25%-D10w+Lytes*E* 1,000 ml @ 95 mls/hr IV .BY DURATION [facility] Rx#: [id number] Parenteral Electrolytes 427.5 570.0 190.0 20 ml Mvi, Adult No.4 with Vit K 10 ml Trace ( Conc-1Ml/Dose) 1 ml In Amino Acid 4.25%-D10w 1, 000 ml @ 95 mls/hr IV .BY DURATION [facility] Rx#: [id number] Pressure Bags, 0.9% 36 36 12 Sodium Chloride 0.45% 1, 1650 525 000 ml @ 150 mls/hr IV . Q7H40M [facility] with Sodium Bicarb (1 Meq/ml) 150 ml Rx#:[id number] Sodium Chloride 0.45% 1, 600 300 000 ml @ 75 mls/hr IV . [id number] [facility] with Sodium Bicarb (1 Meq/ml) 150 ml Rx#:[id number] Sodium Chloride 0.9% 500 500 ml 500 ml @ 999 mls/hr IV .Q31M [facility] Rx#:[id number] Sodium Chloride 0.9% @ 20 220 240 80 ml/hr Intake, IV Titration 1321.575 199.756 371.445 Amount Cisatracurium 200 mg In 134.375 Sodium Chloride 0.9% 180 ml @ 1 MCG/KG/MIN 5.646 mls/hr IV .Q24H [facility] Rx#: [id number] Diltiazem 125 mg In 99.75 Sodium Chloride 0.9% 100 ml @ 5 MG/HR 5 mls/hr IV .Q24H [facility] Rx#:[id number] Insulin Regular 100 unit 579.908 51.546 53.833 In Sodium Chloride 0.9% 100 ml @ Per Protocol IV .Q0M [facility] Rx#:[id number] Norepinephrine 32 mg In 250.000 148.210 217.862 Sodium Chloride 0.9% 218 ml @ 0.05 MCG/KG/MIN 2. 205 mls/hr IV .Q24H [facility] Rx#:[id number] Parenteral Electrolytes 257.292 20 ml In Amino Acid 4.25% -D10w 1,000 ml @ 95 mls/ hr IV .BY DURATION [facility] Rx #:[id number] Propofol 1,000 mg In 100 Empty Bag 1 bag @ Titrate IV .Q0M [facility] Rx#: [id number] Hemodialysis 600 Output: Gastric Drainage 350 Drainage 810 725 340 Right Abdomen 810 725 340 Urine 170 90 9 Other: Voiding Method Indwelling Catheter Indwelling Catheter ABP, PAP, CO, CI - Last Documented Arterial Blood Pressure 125/61 - Labs CBC & Chem 7: 03/09/19 04:30 03/09/19 04:30 Labs: Abnormal Lab Results - Last 24 Hours (Table) 03/08/19 03/08/19 03/08/19 Range/Units 13:02 14:15 15:21 WBC (3.8-10.6) k/uL RBC (4.30-5.90) m/uL Hgb (13.0-17.5) gm/dL Hct (39.0-53.0) % RDW (11.5-15.5) % Plt Count (150-450) k/uL PT (9.0-12.0) sec INR (<1.2) APTT (22.0-30.0) sec Fibrinogen (200-500) mg/dL ABG pH (7.35-7.45) ABG pCO2 (35-45) mmHg ABG pO2 (83-108) mmHg ABG HCO3 (21-25) mmol/L ABG Total CO2 (19-24) mmol/L ABG O2 Saturation (94-97) % Sodium (137-145) mmol/L Chloride (98-107) mmol/L BUN (9-20) mg/dL Creatinine (0.66-1.25) mg/dL Glucose (74-99) mg/dL POC Glucose (mg/dL) 157 H 147 H 130 H (75-99) mg/dL Calcium (8.4-10.2) mg/dL Phosphorus (2.5-4.5) mg/dL Total Bilirubin (0.2-1.3) mg/dL AST (17-59) U/L ALT (21-72) U/L Alkaline Phosphatase (38-126) U/L Total Protein (6.3-8.2) g/dL Albumin (3.5-5.0) g/dL 03/08/19 03/08/19 03/08/19 Range/Units 15:59 17:27 18:58 WBC (3.8-10.6) k/uL RBC (4.30-5.90) m/uL Hgb (13.0-17.5) gm/dL Hct (39.0-53.0) % RDW (11.5-15.5) % Plt Count (150-450) k/uL PT (9.0-12.0) sec INR (<1.2) APTT (22.0-30.0) sec Fibrinogen (200-500) mg/dL ABG pH (7.35-7.45) ABG pCO2 (35-45) mmHg ABG pO2 (83-108) mmHg ABG HCO3 (21-25) mmol/L ABG Total CO2 (19-24) mmol/L ABG O2 Saturation (94-97) % Sodium (137-145) mmol/L Chloride (98-107) mmol/L BUN (9-20) mg/dL Creatinine (0.66-1.25) mg/dL Glucose (74-99) mg/dL POC Glucose (mg/dL) 127 H 118 H 111 H (75-99) mg/dL Calcium (8.4-10.2) mg/dL Phosphorus (2.5-4.5) mg/dL Total Bilirubin (0.2-1.3) mg/dL AST (17-59) U/L ALT (21-72) U/L Alkaline Phosphatase (38-126) U/L Total Protein (6.3-8.2) g/dL Albumin (3.5-5.0) g/dL 03/08/19 03/08/19 03/08/19 Range/Units 19:48 20:06 20:33 WBC (3.8-10.6) k/uL RBC (4.30-5.90) m/uL Hgb (13.0-17.5) gm/dL Hct (39.0-53.0) % RDW (11.5-15.5) % Plt Count (150-450) k/uL PT (9.0-12.0) sec INR (<1.2) APTT (22.0-30.0) sec Fibrinogen (200-500) mg/dL ABG pH 7.33 L (7.35-7.45) ABG pCO2 49 H (35-45) mmHg ABG pO2 74 L (83-108) mmHg ABG HCO3 26 H (21-25) mmol/L ABG Total CO2 28 H (19-24) mmol/L ABG O2 Saturation 93.7 L (94-97) % Sodium (137-145) mmol/L Chloride (98-107) mmol/L BUN (9-20) mg/dL Creatinine (0.66-1.25) mg/dL Glucose (74-99) mg/dL POC Glucose (mg/dL) 24 L 111 H (75-99) mg/dL Calcium (8.4-10.2) mg/dL Phosphorus (2.5-4.5) mg/dL Total Bilirubin (0.2-1.3) mg/dL AST (17-59) U/L ALT (21-72) U/L Alkaline Phosphatase (38-126) U/L Total Protein (6.3-8.2) g/dL Albumin (3.5-5.0) g/dL 03/08/19 03/08/19 03/08/19 Range/Units 21:09 22:25 23:13 WBC (3.8-10.6) k/uL RBC (4.30-5.90) m/uL Hgb (13.0-17.5) gm/dL Hct (39.0-53.0) % RDW (11.5-15.5) % Plt Count (150-450) k/uL PT (9.0-12.0) sec INR (<1.2) APTT (22.0-30.0) sec Fibrinogen (200-500) mg/dL ABG pH (7.35-7.45) ABG pCO2 (35-45) mmHg ABG pO2 (83-108) mmHg ABG HCO3 (21-25) mmol/L ABG Total CO2 (19-24) mmol/L ABG O2 Saturation (94-97) % Sodium (137-145) mmol/L Chloride (98-107) mmol/L BUN (9-20) mg/dL Creatinine (0.66-1.25) mg/dL Glucose (74-99) mg/dL POC Glucose (mg/dL) 120 H 137 H 151 H (75-99) mg/dL Calcium (8.4-10.2) mg/dL Phosphorus (2.5-4.5) mg/dL Total Bilirubin (0.2-1.3) mg/dL AST (17-59) U/L ALT (21-72) U/L Alkaline Phosphatase (38-126) U/L Total Protein (6.3-8.2) g/dL Albumin (3.5-5.0) g/dL 03/09/19 03/09/19 03/09/19 Range/Units 00:11 00:12 01:03 WBC (3.8-10.6) k/uL RBC (4.30-5.90) m/uL Hgb (13.0-17.5) gm/dL Hct (39.0-53.0) % RDW (11.5-15.5) % Plt Count (150-450) k/uL PT (9.0-12.0) sec INR (<1.2) APTT (22.0-30.0) sec Fibrinogen (200-500) mg/dL ABG pH 7.33 L (7.35-7.45) ABG pCO2 47 H (35-45) mmHg ABG pO2 68 L (83-108) mmHg ABG HCO3 (21-25) mmol/L ABG Total CO2 26 H (19-24) mmol/L ABG O2 Saturation 91.3 L (94-97) % Sodium (137-145) mmol/L Chloride (98-107) mmol/L BUN (9-20) mg/dL Creatinine (0.66-1.25) mg/dL Glucose (74-99) mg/dL POC Glucose (mg/dL) 160 H 177 H (75-99) mg/dL Calcium (8.4-10.2) mg/dL Phosphorus (2.5-4.5) mg/dL Total Bilirubin (0.2-1.3) mg/dL AST (17-59) U/L ALT (21-72) U/L Alkaline Phosphatase (38-126) U/L Total Protein (6.3-8.2) g/dL Albumin (3.5-5.0) g/dL 03/09/19 03/09/19 03/09/19 Range/Units 02:06 03:08 04:01 WBC (3.8-10.6) k/uL RBC (4.30-5.90) m/uL Hgb (13.0-17.5) gm/dL Hct (39.0-53.0) % RDW (11.5-15.5) % Plt Count (150-450) k/uL PT (9.0-12.0) sec INR (<1.2) APTT (22.0-30.0) sec Fibrinogen (200-500) mg/dL ABG pH (7.35-7.45) ABG pCO2 (35-45) mmHg ABG pO2 (83-108) mmHg ABG HCO3 (21-25) mmol/L ABG Total CO2 (19-24) mmol/L ABG O2 Saturation (94-97) % Sodium (137-145) mmol/L Chloride (98-107) mmol/L BUN (9-20) mg/dL Creatinine (0.66-1.25) mg/dL Glucose (74-99) mg/dL POC Glucose (mg/dL) 182 H 183 H 187 H (75-99) mg/dL Calcium (8.4-10.2) mg/dL Phosphorus (2.5-4.5) mg/dL Total Bilirubin (0.2-1.3) mg/dL AST (17-59) U/L ALT (21-72) U/L Alkaline Phosphatase (38-126) U/L Total Protein (6.3-8.2) g/dL Albumin (3.5-5.0) g/dL 03/09/19 03/09/19 03/09/19 Range/Units 04:29 04:30 04:30 WBC 66.4 H* (3.8-10.6) k/uL RBC 2.76 L (4.30-5.90) m/uL Hgb 7.6 L (13.0-17.5) gm/dL Hct 23.9 L (39.0-53.0) % RDW 18.8 H (11.5-15.5) % Plt Count 81 L (150-450) k/uL PT (9.0-12.0) sec INR (<1.2) APTT (22.0-30.0) sec Fibrinogen (200-500) mg/dL ABG pH 7.28 L (7.35-7.45) ABG pCO2 47 H (35-45) mmHg ABG pO2 73 L (83-108) mmHg ABG HCO3 (21-25) mmol/L ABG Total CO2 (19-24) mmol/L ABG O2 Saturation 91.7 L (94-97) % Sodium 134 L (137-145) mmol/L Chloride 97 L (98-107) mmol/L BUN 43 H (9-20) mg/dL Creatinine 2.69 H (0.66-1.25) mg/dL Glucose 166 H (74-99) mg/dL POC Glucose (mg/dL) (75-99) mg/dL Calcium 5.3 L* (8.4-10.2) mg/dL Phosphorus 6.6 H (2.5-4.5) mg/dL Total Bilirubin 5.7 H (0.2-1.3) mg/dL AST 3799 H (17-59) U/L ALT 3159 H (21-72) U/L Alkaline Phosphatase 443 H (38-126) U/L Total Protein 3.5 L (6.3-8.2) g/dL Albumin 1.4 L (3.5-5.0) g/dL 03/09/19 03/09/19 03/09/19 Range/Units 04:30 05:20 06:18 WBC (3.8-10.6) k/uL RBC (4.30-5.90) m/uL Hgb (13.0-17.5) gm/dL Hct (39.0-53.0) % RDW (11.5-15.5) % Plt Count (150-450) k/uL PT 21.0 H (9.0-12.0) sec INR 2.1 H (<1.2) APTT 34.7 H (22.0-30.0) sec Fibrinogen 149 L (200-500) mg/dL ABG pH (7.35-7.45) ABG pCO2 (35-45) mmHg ABG pO2 (83-108) mmHg ABG HCO3 (21-25) mmol/L ABG Total CO2 (19-24) mmol/L ABG O2 Saturation (94-97) % Sodium (137-145) mmol/L Chloride (98-107) mmol/L BUN (9-20) mg/dL Creatinine (0.66-1.25) mg/dL Glucose (74-99) mg/dL POC Glucose (mg/dL) 189 H 187 H (75-99) mg/dL Calcium (8.4-10.2) mg/dL Phosphorus (2.5-4.5) mg/dL Total Bilirubin (0.2-1.3) mg/dL AST (17-59) U/L ALT (21-72) U/L Alkaline Phosphatase (38-126) U/L Total Protein (6.3-8.2) g/dL Albumin (3.5-5.0) g/dL 03/09/19 03/09/19 03/09/19 Range/Units 07:08 08:09 09:09 WBC (3.8-10.6) k/uL RBC (4.30-5.90) m/uL Hgb (13.0-17.5) gm/dL Hct (39.0-53.0) % RDW (11.5-15.5) % Plt Count (150-450) k/uL PT (9.0-12.0) sec INR (<1.2) APTT (22.0-30.0) sec Fibrinogen (200-500) mg/dL ABG pH (7.35-7.45) ABG pCO2 (35-45) mmHg ABG pO2 (83-108) mmHg ABG HCO3 (21-25) mmol/L ABG Total CO2 (19-24) mmol/L ABG O2 Saturation (94-97) % Sodium (137-145) mmol/L Chloride (98-107) mmol/L BUN (9-20) mg/dL Creatinine (0.66-1.25) mg/dL Glucose (74-99) mg/dL POC Glucose (mg/dL) 175 H 180 H 171 H (75-99) mg/dL Calcium (8.4-10.2) mg/dL Phosphorus (2.5-4.5) mg/dL Total Bilirubin (0.2-1.3) mg/dL AST (17-59) U/L ALT (21-72) U/L Alkaline Phosphatase (38-126) U/L Total Protein (6.3-8.2) g/dL Albumin (3.5-5.0) g/dL 03/09/19 03/09/19 03/09/19 Range/Units 10:17 11:03 12:06 WBC (3.8-10.6) k/uL RBC (4.30-5.90) m/uL Hgb (13.0-17.5) gm/dL Hct (39.0-53.0) % RDW (11.5-15.5) % Plt Count (150-450) k/uL PT (9.0-12.0) sec INR (<1.2) APTT (22.0-30.0) sec Fibrinogen (200-500) mg/dL ABG pH (7.35-7.45) ABG pCO2 (35-45) mmHg ABG pO2 (83-108) mmHg ABG HCO3 (21-25) mmol/L ABG Total CO2 (19-24) mmol/L ABG O2 Saturation (94-97) % Sodium (137-145) mmol/L Chloride (98-107) mmol/L BUN (9-20) mg/dL Creatinine (0.66-1.25) mg/dL Glucose (74-99) mg/dL POC Glucose (mg/dL) 160 H 160 H 148 H (75-99) mg/dL Calcium (8.4-10.2) mg/dL Phosphorus (2.5-4.5) mg/dL Total Bilirubin (0.2-1.3) mg/dL AST (17-59) U/L ALT (21-72) U/L Alkaline Phosphatase (38-126) U/L Total Protein (6.3-8.2) g/dL Albumin (3.5-5.0) g/dL Microbiology - Last 24 Hours (Table) 03/06/19 09:50 Blood Culture - Preliminary Blood No Growth after 72 hours 03/08/19 09:50 Gram Stain - Preliminary [facility] Body Fluid Culture - Preliminary 03/06/19 12:08 Gram Stain - Final Other - Other Wound Culture - Final Escherichia coli 03/06/19 11:03 Gram Stain - Final Sputum Sputum Culture - Final Escherichia coli <Tristian Christopher - Last Filed: 03/09/19 16:11> Subjective As above. Patient being made comfort care today. Objective - Vital Signs Vital signs: Vital Signs Temp 98.9 F 03/09/19 12:00 Pulse 108 H 03/09/19 15:00 Resp 35 H 03/09/19 15:00 BP 92/78 03/09/19 08:30 Pulse Ox 91 L 03/09/19 00:00 Intake & Output 03/08/19 03/09/19 03/09/19 18:59 06:59 18:59 Intake Total 4350.075 2770.756 1535.884 Output Total 980 1165 474 Balance 3370.075 1098.950 7029.884 Weight 117 kg Intake: IV 2428.5 2571.0 797.0 Meropenem 1 gm In Sodium 100 100 Chloride 0.9% 100 ml @ 200 mls/hr IVPB Q12HR [facility] Rx#:[id number] Mvi, Adult No.4 with Vit 95.0 K 10 ml Trace (Conc-1Ml/ Dose) 1 ml In Amino Acid 4.25%-D10w+Lytes*E* 1,000 ml @ 95 mls/hr IV .BY DURATION [facility] Rx#: [id number] Parenteral Electrolytes 427.5 570.0 190.0 20 ml [facility], Adult No.4 with Vit K 10 ml Trace ( Conc-1Ml/Dose) 1 ml In Amino Acid 4.25%-D10w 1, 000 ml @ 95 mls/hr IV .BY DURATION [facility] Rx#: [id number] Pressure Bags, 0.9% 36 36 27 Sodium Chloride 0.45% 1, 1650 525 000 ml @ 150 mls/hr IV . Q7H40M [facility] with Sodium Bicarb (1 Meq/ml) 150 ml Rx#:[id number] Sodium Chloride 0.45% 1, 600 300 000 ml @ 75 mls/hr IV . [id number] [place] with Sodium Bicarb (1 Meq/ml) 150 ml Rx#:[id number] Sodium Chloride 0.9% 500 500 ml 500 ml @ 999 mls/hr IV .Q31M [facility] Rx#:[id number] Sodium Chloride 0.9% @ 20 220 240 180 ml/hr Intake, IV Titration 1321.575 199.756 738.884 Amount Cisatracurium 200 mg In 134.375 125.906 Sodium Chloride 0.9% 180 ml @ 1 MCG/KG/MIN 5.646 mls/hr IV .Q24H [facility] Rx#: [id number] Diltiazem 125 mg In 99.75 Sodium Chloride 0.9% 100 ml @ 5 MG/HR 5 mls/hr IV .Q24H [facility] Rx#:[id number] Insulin Regular 100 unit 579.908 51.546 70.366 In Sodium Chloride 0.9% 100 ml @ Per Protocol IV .Q0M [facility] Rx#:[id number] Mvi, Adult No.4 with Vit 225 K 10 ml Trace (Conc-1Ml/ Dose) 1 ml Calcium Gluconate 1 gm Sodium Acetate 30 meq Potassium Chloride 15 meq Magnesium Sulfate gm 1 gm In Amino Acid 4.25%-D10w 1,000 ml @ 95 mls/hr IV .BY DURATION [facility] Rx#: [id number] Norepinephrine 32 mg In 250.000 148.210 217.862 Sodium Chloride 0.9% 218 ml @ 0.05 MCG/KG/MIN 2. 205 mls/hr IV .Q24H [facility] Rx#:[id number] Parenteral Electrolytes 257.292 20 ml In Amino Acid 4.25% -D10w 1,000 ml @ 95 mls/ hr IV .BY DURATION [facility] Rx #:[id number] Propofol 1,000 mg In 100 Empty Bag 1 bag @ Titrate IV .Q0M [facility] Rx#: [id number] Hemodialysis 600 Output: Gastric Drainage 350 Drainage 810 725 465 Right Abdomen 810 725 465 Urine 170 90 9 Other: Voiding Method Indwelling Catheter Indwelling Catheter Indwelling Catheter ABP, PAP, CO, CI - Last Documented Arterial Blood Pressure 102/55 - Labs CBC & Chem 7: 03/09/19 04:30 03/09/19 04:30 Labs: Abnormal Lab Results - Last 24 Hours (Table) 03/08/19 03/08/19 03/08/19 Range/Units 17:27 18:58 19:48 WBC (3.8-10.6) k/uL RBC (4.30-5.90) m/uL Hgb (13.0-17.5) gm/dL Hct (39.0-53.0) % RDW (11.5-15.5) % Plt Count (150-450) k/uL PT (9.0-12.0) sec INR (<1.2) APTT (22.0-30.0) sec Fibrinogen (200-500) mg/dL ABG pH (7.35-7.45) ABG pCO2 (35-45) mmHg ABG pO2 (83-108) mmHg ABG HCO3 (21-25) mmol/L ABG Total CO2 (19-24) mmol/L ABG O2 Saturation (94-97) % Sodium (137-145) mmol/L Chloride (98-107) mmol/L BUN (9-20) mg/dL Creatinine (0.66-1.25) mg/dL Glucose (74-99) mg/dL POC Glucose (mg/dL) 118 H 111 H 24 L (75-99) mg/dL Calcium (8.4-10.2) mg/dL Phosphorus (2.5-4.5) mg/dL Total Bilirubin (0.2-1.3) mg/dL AST (17-59) U/L ALT (21-72) U/L Alkaline Phosphatase (38-126) U/L Total Protein (6.3-8.2) g/dL Albumin (3.5-5.0) g/dL 03/08/19 03/08/19 03/08/19 Range/Units 20:06 20:33 21:09 WBC (3.8-10.6) k/uL RBC (4.30-5.90) m/uL Hgb (13.0-17.5) gm/dL Hct (39.0-53.0) % RDW (11.5-15.5) % Plt Count (150-450) k/uL PT (9.0-12.0) sec INR (<1.2) APTT (22.0-30.0) sec Fibrinogen (200-500) mg/dL ABG pH 7.33 L (7.35-7.45) ABG pCO2 49 H (35-45) mmHg ABG pO2 74 L (83-108) mmHg ABG HCO3 26 H (21-25) mmol/L ABG Total CO2 28 H (19-24) mmol/L ABG O2 Saturation 93.7 L (94-97) % Sodium (137-145) mmol/L Chloride (98-107) mmol/L BUN (9-20) mg/dL Creatinine (0.66-1.25) mg/dL Glucose (74-99) mg/dL POC Glucose (mg/dL) 111 H 120 H (75-99) mg/dL Calcium (8.4-10.2) mg/dL Phosphorus (2.5-4.5) mg/dL Total Bilirubin (0.2-1.3) mg/dL AST (17-59) U/L ALT (21-72) U/L Alkaline Phosphatase (38-126) U/L Total Protein (6.3-8.2) g/dL Albumin (3.5-5.0) g/dL 03/08/19 03/08/19 03/09/19 Range/Units 22:25 23:13 00:11 WBC (3.8-10.6) k/uL RBC (4.30-5.90) m/uL Hgb (13.0-17.5) gm/dL Hct (39.0-53.0) % RDW (11.5-15.5) % Plt Count (150-450) k/uL PT (9.0-12.0) sec INR (<1.2) APTT (22.0-30.0) sec Fibrinogen (200-500) mg/dL ABG pH (7.35-7.45) ABG pCO2 (35-45) mmHg ABG pO2 (83-108) mmHg ABG HCO3 (21-25) mmol/L ABG Total CO2 (19-24) mmol/L ABG O2 Saturation (94-97) % Sodium (137-145) mmol/L Chloride (98-107) mmol/L BUN (9-20) mg/dL Creatinine (0.66-1.25) mg/dL Glucose (74-99) mg/dL POC Glucose (mg/dL) 137 H 151 H 160 H (75-99) mg/dL Calcium (8.4-10.2) mg/dL Phosphorus (2.5-4.5) mg/dL Total Bilirubin (0.2-1.3) mg/dL AST (17-59) U/L ALT (21-72) U/L Alkaline Phosphatase (38-126) U/L Total Protein (6.3-8.2) g/dL Albumin (3.5-5.0) g/dL 03/09/19 03/09/19 03/09/19 Range/Units 00:12 01:03 02:06 WBC (3.8-10.6) k/uL RBC (4.30-5.90) m/uL Hgb (13.0-17.5) gm/dL Hct (39.0-53.0) % RDW (11.5-15.5) % Plt Count (150-450) k/uL PT (9.0-12.0) sec INR (<1.2) APTT (22.0-30.0) sec Fibrinogen (200-500) mg/dL ABG pH 7.33 L (7.35-7.45) ABG pCO2 47 H (35-45) mmHg ABG pO2 68 L (83-108) mmHg ABG HCO3 (21-25) mmol/L ABG Total CO2 26 H (19-24) mmol/L ABG O2 Saturation 91.3 L (94-97) % Sodium (137-145) mmol/L Chloride (98-107) mmol/L BUN (9-20) mg/dL Creatinine (0.66-1.25) mg/dL Glucose (74-99) mg/dL POC Glucose (mg/dL) 177 H 182 H (75-99) mg/dL Calcium (8.4-10.2) mg/dL Phosphorus (2.5-4.5) mg/dL Total Bilirubin (0.2-1.3) mg/dL AST (17-59) U/L ALT (21-72) U/L Alkaline Phosphatase (38-126) U/L Total Protein (6.3-8.2) g/dL Albumin (3.5-5.0) g/dL 03/09/19 03/09/19 03/09/19 Range/Units 03:08 04:01 04:29 WBC (3.8-10.6) k/uL RBC (4.30-5.90) m/uL Hgb (13.0-17.5) gm/dL Hct (39.0-53.0) % RDW (11.5-15.5) % Plt Count (150-450) k/uL PT (9.0-12.0) sec INR (<1.2) APTT (22.0-30.0) sec Fibrinogen (200-500) mg/dL ABG pH 7.28 L (7.35-7.45) ABG pCO2 47 H (35-45) mmHg ABG pO2 73 L (83-108) mmHg ABG HCO3 (21-25) mmol/L ABG Total CO2 (19-24) mmol/L ABG O2 Saturation 91.7 L (94-97) % Sodium (137-145) mmol/L Chloride (98-107) mmol/L BUN (9-20) mg/dL Creatinine (0.66-1.25) mg/dL Glucose (74-99) mg/dL POC Glucose (mg/dL) 183 H 187 H (75-99) mg/dL Calcium (8.4-10.2) mg/dL Phosphorus (2.5-4.5) mg/dL Total Bilirubin (0.2-1.3) mg/dL AST (17-59) U/L ALT (21-72) U/L Alkaline Phosphatase (38-126) U/L Total Protein (6.3-8.2) g/dL Albumin (3.5-5.0) g/dL 03/09/19 03/09/19 03/09/19 Range/Units 04:30 04:30 04:30 WBC 66.4 H* (3.8-10.6) k/uL RBC 2.76 L (4.30-5.90) m/uL Hgb 7.6 L (13.0-17.5) gm/dL Hct 23.9 L (39.0-53.0) % RDW 18.8 H (11.5-15.5) % Plt Count 81 L (150-450) k/uL PT 21.0 H (9.0-12.0) sec INR 2.1 H (<1.2) APTT 34.7 H (22.0-30.0) sec Fibrinogen 149 L (200-500) mg/dL ABG pH (7.35-7.45) ABG pCO2 (35-45) mmHg ABG pO2 (83-108) mmHg ABG HCO3 (21-25) mmol/L ABG Total CO2 (19-24) mmol/L ABG O2 Saturation (94-97) % Sodium 134 L (137-145) mmol/L Chloride 97 L (98-107) mmol/L BUN 43 H (9-20) mg/dL Creatinine 2.69 H (0.66-1.25) mg/dL Glucose 166 H (74-99) mg/dL POC Glucose (mg/dL) (75-99) mg/dL Calcium 5.3 L* (8.4-10.2) mg/dL Phosphorus 6.6 H (2.5-4.5) mg/dL Total Bilirubin 5.7 H (0.2-1.3) mg/dL AST 3799 H (17-59) U/L ALT 3159 H (21-72) U/L Alkaline Phosphatase 443 H (38-126) U/L Total Protein 3.5 L (6.3-8.2) g/dL Albumin 1.4 L (3.5-5.0) g/dL 03/09/19 03/09/19 03/09/19 Range/Units 05:20 06:18 07:08 WBC (3.8-10.6) k/uL RBC (4.30-5.90) m/uL Hgb (13.0-17.5) gm/dL Hct (39.0-53.0) % RDW (11.5-15.5) % Plt Count (150-450) k/uL PT (9.0-12.0) sec INR (<1.2) APTT (22.0-30.0) sec Fibrinogen (200-500) mg/dL ABG pH (7.35-7.45) ABG pCO2 (35-45) mmHg ABG pO2 (83-108) mmHg ABG HCO3 (21-25) mmol/L ABG Total CO2 (19-24) mmol/L ABG O2 Saturation (94-97) % Sodium (137-145) mmol/L Chloride (98-107) mmol/L BUN (9-20) mg/dL Creatinine (0.66-1.25) mg/dL Glucose (74-99) mg/dL POC Glucose (mg/dL) 189 H 187 H 175 H (75-99) mg/dL Calcium (8.4-10.2) mg/dL Phosphorus (2.5-4.5) mg/dL Total Bilirubin (0.2-1.3) mg/dL AST (17-59) U/L ALT (21-72) U/L Alkaline Phosphatase (38-126) U/L Total Protein (6.3-8.2) g/dL Albumin (3.5-5.0) g/dL 03/09/19 03/09/19 03/09/19 Range/Units 08:09 09:09 10:17 WBC (3.8-10.6) k/uL RBC (4.30-5.90) m/uL Hgb (13.0-17.5) gm/dL Hct (39.0-53.0) % RDW (11.5-15.5) % Plt Count (150-450) k/uL PT (9.0-12.0) sec INR (<1.2) APTT (22.0-30.0) sec Fibrinogen (200-500) mg/dL ABG pH (7.35-7.45) ABG pCO2 (35-45) mmHg ABG pO2 (83-108) mmHg ABG HCO3 (21-25) mmol/L ABG Total CO2 (19-24) mmol/L ABG O2 Saturation (94-97) % Sodium (137-145) mmol/L Chloride (98-107) mmol/L BUN (9-20) mg/dL Creatinine (0.66-1.25) mg/dL Glucose (74-99) mg/dL POC Glucose (mg/dL) 180 H 171 H 160 H (75-99) mg/dL Calcium (8.4-10.2) mg/dL Phosphorus (2.5-4.5) mg/dL Total Bilirubin (0.2-1.3) mg/dL AST (17-59) U/L ALT (21-72) U/L Alkaline Phosphatase (38-126) U/L Total Protein (6.3-8.2) g/dL Albumin (3.5-5.0) g/dL 03/09/19 03/09/19 03/09/19 Range/Units 11:03 12:06 13:22 WBC (3.8-10.6) k/uL RBC (4.30-5.90) m/uL Hgb (13.0-17.5) gm/dL Hct (39.0-53.0) % RDW (11.5-15.5) % Plt Count (150-450) k/uL PT (9.0-12.0) sec INR (<1.2) APTT (22.0-30.0) sec Fibrinogen (200-500) mg/dL ABG pH (7.35-7.45) ABG pCO2 (35-45) mmHg ABG pO2 (83-108) mmHg ABG HCO3 (21-25) mmol/L ABG Total CO2 (19-24) mmol/L ABG O2 Saturation (94-97) % Sodium (137-145) mmol/L Chloride (98-107) mmol/L BUN (9-20) mg/dL Creatinine (0.66-1.25) mg/dL Glucose (74-99) mg/dL POC Glucose (mg/dL) 160 H 148 H 140 H (75-99) mg/dL Calcium (8.4-10.2) mg/dL Phosphorus (2.5-4.5) mg/dL Total Bilirubin (0.2-1.3) mg/dL AST (17-59) U/L ALT (21-72) U/L Alkaline Phosphatase (38-126) U/L Total Protein (6.3-8.2) g/dL Albumin (3.5-5.0) g/dL 03/09/19 Range/Units 14:10 WBC (3.8-10.6) k/uL RBC (4.30-5.90) m/uL Hgb (13.0-17.5) gm/dL Hct (39.0-53.0) % RDW (11.5-15.5) % Plt Count (150-450) k/uL PT (9.0-12.0) sec INR (<1.2) APTT (22.0-30.0) sec Fibrinogen (200-500) mg/dL ABG pH (7.35-7.45) ABG pCO2 (35-45) mmHg ABG pO2 (83-108) mmHg ABG HCO3 (21-25) mmol/L ABG Total CO2 (19-24) mmol/L ABG O2 Saturation (94-97) % Sodium (137-145) mmol/L Chloride (98-107) mmol/L BUN (9-20) mg/dL Creatinine (0.66-1.25) mg/dL Glucose (74-99) mg/dL POC Glucose (mg/dL) 136 H (75-99) mg/dL Calcium (8.4-10.2) mg/dL Phosphorus (2.5-4.5) mg/dL Total Bilirubin (0.2-1.3) mg/dL AST (17-59) U/L ALT (21-72) U/L Alkaline Phosphatase (38-126) U/L Total Protein (6.3-8.2) g/dL Albumin (3.5-5.0) g/dL Microbiology - Last 24 Hours (Table) 03/06/19 12:08 Anaerobic Culture - Final Other - Other Anaerobic Gm Negative Bacilli 03/06/19 09:50 Blood Culture - Preliminary Blood No Growth after 72 hours 03/08/19 09:50 Gram Stain - Preliminary Hoang-Hopkins Body Fluid Culture - Preliminary 03/06/19 12:08 Gram Stain - Final Other - Other Wound Culture - Final Escherichia coli Assessment and Plan (1) Small bowel obstruction Status: Acute Code(s): K56.609 - UNSP INTESTNL OBST, UNSP TO PARTIAL VERSUS COMPLETE OBST SNOMED Code(s): 200068764
[2019-03-09] MEDS ORDERED: LORazepam 2 MG/ML INJ IV PRN (13:16)
[2019-03-09] MEDS ORDERED: MORPHINE SULFATE 4 MG/ML SYRINGE IVP PRN (13:16)
[2019-03-09] MEDS: BISACODYL 10 MG SUPP RECTAL SCH (13:24)
[2019-03-09] MEDS: DOCUSATE 100 MG CAP PO SCH (13:24)
[2019-03-09 13:25] LABS: Glucose,Whole Blood 140 mg/dL (75-99)
--- NOTE | 2019-03-09 13:28 | P.PN ---
Progress Note - Text Progress Note Date: 03/09/19 Advanced Care Planning: Diagnoses: Aspiration pneumonia with septic shock and multisystem organ failure Background : Patient with aspiration event resulting in septic shock requiring vasopressor support, ventilator support, dialysis, developed atrial fibrillation with rapid ventricular response requiring Cardizem, and liver enzymes greater than 10,000. Discussion: Person(s) present and participating in discussion: Corinna, sister, brother, and [id number] Summary: Met with them at patient's bedside to discuss withdrawal of care. He is in agreement with withdrawal of care. She also is okay with making him a DO NOT RESUSCITATE at this point in time. We discussed that we will maintain on current treatment regimens until all family has been available and has gotten a chance to visit with him and say their goodbyes. We will then proceed with stopping his paralytics. We will ensure that his comfort and dignity are maintained and will stop all vasopressor agents. Family can be at bedside during this process. They will then step out of the room and we will remove the ventilator. They have asked us to call father Trent from [place], the unit aide tech will assist with this. Offered hospice however the declined at this point in time. A total of 17 minutes of face to face time was spent discussing advanced care planning.
[2019-03-09 13:36] VITALS: TEMP 98.9
[2019-03-09] MEDS: VANCOMYCIN 1,750 MG in SODIUM CHLORIDE 0.9% 500 ML 500 ML IVPB SCH (13:37)
[2019-03-09] MEDS: CISATRACURIUM 200 MG in SODIUM CHLORIDE 0.9% 180 ML IV SCH (14:06)
[2019-03-09 14:13] LABS: Glucose,Whole Blood 136 mg/dL (75-99)
[2019-03-09 15:08] VITALS: PULSE 108; RESP 35
--- NOTE | 2019-03-10 15:51 | P.DS ---
Providers Date of admission: 02/23/19 19:24 Expected date of discharge: 03/09/19 Attending physician: Dashawn Nichols Consults: 02/24/19 09:27 Consult Physician Routine Consulting Provider: Maggie Patel Consult Reason/Comments: medical management Do you want consulting provider notified?: Yes 02/28/19 10:10 Consult Physician Routine Consulting Provider: Bran Hardin Consult Reason/Comments: Recurrent MRSA Do you want consulting provider notified?: Yes 03/06/19 09:18 Consult Physician Routine Consulting Provider: Praveen Pope Consult Reason/Comments: icu management Do you want consulting provider notified?: Yes 03/06/19 11:40 Consult Physician Routine Consulting Provider: Praveen Pope Consult Reason/Comments: ICU management Do you want consulting provider notified?: Yes Consult Physician Routine Consulting Provider: Hbuer Murray Consult Reason/Comments: a fib RVR, hypotension, systlic CHF Do you want consulting provider notified?: Yes 03/06/19 16:32 Consult Physician Urgent Consulting Provider: Leonard Yeager Consult Reason/Comments: JAVI, no urine output Do you want consulting provider notified?: Yes 03/07/19 07:32 Consult Physician Stat Consulting Provider: Aditya Bravo Consult Reason/Comments: Stat insertion of dialysis cath Do you want consulting provider notified?: Yes Primary care physician: Aury Srivastava MD Hospital Course: 58 year old male who is status post exploratory laparotomy, repair of incisional hernia, partial omentectomy, lysis of adhesions, right colectomy, and small bowel resection performed on 02/27/2019. He is also status post exploratory laparotomy and drainage of intra-abdominal seroma/hematoma performed on 03/06/2018. He remains critically ill in the intensive care unit. He is on [facility] anical ventilation with high PEEP. He developed ARDS. He remains on high dose vasopressor support. Patient developed kidney failure, however he was unable to tolerate hemodialysis secondary to hemodynamic instability. He developed shock liver with liver enzymes in the 96927d. Aggressive medical treatment continued but patient failed to make any significant progress. Patients family decided upon DNR/comfort care measures with possible hospice. Please see new visit encounter for admission into hospice/comfort care performed by medicine team, Dr. Patel. Discharge Diagnosis: 1. Small bowel obstruction, s/p exploratory laparotomy, repair of incisional hernia, partial omentectomy, lysis of adhesions, right colectomy, and small bowel resection 2. Acute hypoxic respiratory failure requiring mechanical ventilation with ARDS 3. ESBL E. Coli Aspiration pneumonia with septic shock, Acute hypoxic respiratory failure, ARDS, ESBL E coli intraabdominal infection 4. Shock liver 5. Acute renal failure 6. Iron Metabolic acidosis 7. Acute toxic encephalopathy 8. A. fib with RVR 9. Lactic acidosis Nurse practitioner note has been reviewed by physician. Signing provider agrees with the documented findings, assessment, and plan of care. Patient Condition at Discharge: Poor Plan - Discharge Summary Discharge Rx Participant: Yes New Discharge Prescriptions: No Action Levothyroxine Sodium [Synthroid] 50 mcg PO HS Omeprazole [PriLOSEC] 20 mg PO BID Nitroglycerin Sl Tabs [Nitrostat] 0.4 mg SUBLINGUAL Q5M PRN PRN Reason: Chest Pain amLODIPine [Norvasc] 5 mg PO HS Gabapentin [Neurontin] 800 mg PO QID Montelukast [Singulair] 10 mg PO HS #30 tab Insulin Aspart [NovoLOG Flexpen] See Protocol SQ ACHS DULoxetine HCL [Cymbalta] 30 mg PO BID Apixaban [Eliquis] 5 mg PO BID #60 tab Metoprolol Tartrate [Lopressor] 25 mg PO BID #60 tab Loratadine [Claritin] 10 mg PO DAILY #30 tab Furosemide [Lasix] 40 mg PO DAILY #30 tab Hydrocortisone 5 mg PO HS Hydrocortisone 10 mg PO AC-BRKFST Insulin Aspart [NovoLOG Flexpen] 12 units SQ AC-BID@1200,1700 Insulin Aspart [NovoLOG Flexpen] 14 units SQ AC-BRKFST Pioglitazone [Actos] 15 mg PO AC-LUNCH Simvastatin 80 mg PO HS Albuterol Inhaler [Ventolin Hfa Inhaler] 2 puff INHALATION RT-QID PRN PRN Reason: Shortness Of Breath Artificial Tears-Hypromellose [Artificial Tear Drops] 1 drops BOTH EYES QID Buprenorphine [Butrans 10 MCG/HOUR] 1 patch TRANSDERM Q7D Fluconazole [Diflucan] 200 mg PO DAILY Insulin Glargine,Hum.rec.anlog [Lantus Solostar] 30 unit SQ BID Ipratropium-Albuterol Nebulize [Duoneb 0.5 mg-3 mg/3 ml Soln] 3 ml INHALATION RT-QID Lisinopril [Zestril] 5 mg PO DAILY Multivitamins, Thera [Multivitamin (formulary)] 1 tab PO AC-LUNCH valACYclovir HCL [Valacyclovir] 1,000 mg PO BID Vitamin B Complex 1 cap PO AC-LUNCH cefTRIAXone [Rocephin] 2 gm IVPB Q24H #14 bag Discharge Medication List Levothyroxine Sodium [Synthroid] 50 mcg PO HS 02/01/14 [History] Nitroglycerin Sl Tabs [Nitrostat] 0.4 mg SUBLINGUAL Q5M PRN 02/01/14 [History] Omeprazole [PriLOSEC] 20 mg PO BID 02/01/14 [History] Gabapentin [Neurontin] 800 mg PO QID 05/13/15 [History] amLODIPine [Norvasc] 5 mg PO HS 05/13/15 [History] Montelukast [Singulair] 10 mg PO HS #30 tab 11/21/16 [Rx] Insulin Aspart [NovoLOG Flexpen] See Protocol SQ ACHS 02/10/17 [History] DULoxetine HCL [Cymbalta] 30 mg PO BID 09/25/17 [History] Apixaban [Eliquis] 5 mg PO BID #60 tab 02/13/18 [Rx] Metoprolol Tartrate [Lopressor] 25 mg PO BID #60 tab 02/13/18 [Rx] Loratadine [Claritin] 10 mg PO DAILY #30 tab 05/05/18 [Rx] Furosemide [Lasix] 40 mg PO DAILY #30 tab 07/07/18 [Rx] Hydrocortisone 5 mg PO HS 10/24/18 [History] Hydrocortisone 10 mg PO AC-BRKFST 10/24/18 [History] Insulin Aspart [NovoLOG Flexpen] 12 units SQ AC-BID@1200,1700 10/24/18 [History] Insulin Aspart [NovoLOG Flexpen] 14 units SQ AC-BRKFST 10/24/18 [History] Pioglitazone [Actos] 15 mg PO AC-LUNCH 10/24/18 [History] Simvastatin 80 mg PO HS 10/24/18 [History] Albuterol Inhaler [Ventolin Hfa Inhaler] 2 puff INHALATION RT-QID PRN 02/09/19 [History] Artificial Tears-Hypromellose [Artificial Tear Drops] 1 drops BOTH EYES QID 02/09/19 [History] Buprenorphine [Butrans 10 MCG/HOUR] 1 patch TRANSDERM Q7D 02/09/19 [History] Fluconazole [Diflucan] 200 mg PO DAILY 02/09/19 [History] Insulin Glargine,Hum.rec.anlog [Lantus Solostar] 30 unit SQ BID 02/09/19 [History] Ipratropium-Albuterol Nebulize [Duoneb 0.5 mg-3 mg/3 ml Soln] 3 ml INHALATION RT-QID 02/09/19 [History] Lisinopril [Zestril] 5 mg PO DAILY 02/09/19 [History] Multivitamins, Thera [Multivitamin (formulary)] 1 tab PO AC-LUNCH 02/09/19 [History] Vitamin B Complex 1 cap PO AC-LUNCH 02/09/19 [History] valACYclovir HCL [Valacyclovir] 1,000 mg PO BID 02/09/19 [History] cefTRIAXone [Rocephin] 2 gm IVPB Q24H #14 bag 02/12/19 [Rx] Follow up Appointment(s)/Referral(s): [facility], [REFERRING] - As Needed [facility] [NON-STAFF] - 1-2 Days Aury Srivastava MD [Primary Care Provider] - 1-2 days [facility]
--- NOTE | 2019-03-11 09:26 | PCN ---
PROCEDURE NOTE PREOPERATIVE DIAGNOSIS: Acute chronic failure. PROCEDURE: Placement of the dialysis catheter, left femoral approach. Patient was seen in the intensive care unit; 1% lidocaine was infiltrated in the left groin. Femoral pulse was palpable. Left groins were prepped and draped in usual sterile manner; 1% lidocaine infiltrated. Micropuncture introduced to the left common femoral vein, micropuncture guidewire was passed and 4-Turkmen dilator on top of the guidewire. Then we passed a regular guidewire without any resistance. The dilator was advanced and dialysis catheter advanced on the top of the guidewire. The patient has a decent flow flushed with heparin saline and hep-locked secured with 3-0 nylon dressing applied patient tolerated the procedure well. MMODL / IJN: [id number] /
== END 2019-03-09 15:11 | disposition hospice, inpatient (51) | DRG 329 ==
LOC: EC 13:10 → 4SSUR 19:24 → 2SICU 03-06 09:07
PROVIDERS: ADMIT Surgery; ATTEND Surgery
PROC: 0DBH0ZZ Excision of Cecum, Open Approach (ICD-10-PCS; 2019-02-27)
PROC: 0DBU0ZZ Excision of Omentum, Open Approach (ICD-10-PCS; 2019-02-27)
PROC: 0DNW0ZZ Release Peritoneum, Open Approach (ICD-10-PCS; 2019-02-27)
PROC: 0WQF0ZZ Repair Abdominal Wall, Open Approach (ICD-10-PCS; 2019-02-27)
PROC: 0DBB0ZZ Excision of Ileum, Open Approach (ICD-10-PCS; principal; 2019-02-27 07:30)
PROC: 0W9G0ZZ Drainage of Peritoneal Cavity, Open Approach (ICD-10-PCS; 2019-03-06)
PROC: 5A1945Z Respiratory Ventilation, 24-96 Consecutive Hours (ICD-10-PCS; 2019-03-06)
PROC: 0BH17EZ Insertion of Endotracheal Airway into Trachea, Via Natural or Artificial Opening (ICD-10-PCS; 2019-03-06)
PROC: 03HY32Z Insertion of Monitoring Device into Upper Artery, Percutaneous Approach (ICD-10-PCS; 2019-03-06)
PROC: 4A133B1 Monitoring of Arterial Pressure, Peripheral, Percutaneous Approach (ICD-10-PCS; 2019-03-06)
PROC: 4A133J1 Monitoring of Arterial Pulse, Peripheral, Percutaneous Approach (ICD-10-PCS; 2019-03-06)
PROC: 06HM33Z Insertion of Infusion Device into Right Femoral Vein, Percutaneous Approach (ICD-10-PCS; 2019-03-06)
PROC: 05HY33Z Insertion of Infusion Device into Upper Vein, Percutaneous Approach (ICD-10-PCS; 2019-03-07)
PROC: 5A1D70Z Performance of Urinary Filtration, Intermittent, Less than 6 Hours Per Day (ICD-10-PCS; 2019-03-07)
DX: K56.51 Intestinal adhesions [bands], with partial obstruction (principal); R65.21 Severe sepsis with septic shock; A40.1 Sepsis due to streptococcus, group B; D65 Disseminated intravascular coagulation [defibrination syndrome]; G92 Toxic encephalopathy; J15.5 Pneumonia due to Escherichia coli; J69.0 Pneumonitis due to inhalation of food and vomit; J96.01 Acute respiratory failure with hypoxia; K55.019 Acute (reversible) ischemia of small intestine, extent unspecified; K65.1 Peritoneal abscess; K72.00 Acute and subacute hepatic failure without coma; N17.0 Acute kidney failure with tubular necrosis; D62 Acute posthemorrhagic anemia; E27.40 Unspecified adrenocortical insufficiency; E87.4 Mixed disorder of acid-base balance; I50.22 Chronic systolic (congestive) heart failure; J44.0 Chronic obstructive pulmonary disease with (acute) lower respiratory infection; Z99.11 Dependence on respirator [ventilator] status; K91.872 Postprocedural seroma of a digestive system organ or structure following a digestive system procedure; T81.40XA Infection following a procedure, unspecified, initial encounter; E03.9 Hypothyroidism, unspecified; E11.40 Type 2 diabetes mellitus with diabetic neuropathy, unspecified; Z79.4 Long term (current) use of insulin; E11.65 Type 2 diabetes mellitus with hyperglycemia; E78.5 Hyperlipidemia, unspecified; E83.39 Other disorders of phosphorus metabolism; E83.51 Hypocalcemia; E87.5 Hyperkalemia; G47.33 Obstructive sleep apnea (adult) (pediatric); Z99.89 Dependence on other enabling machines and devices; I11.0 Hypertensive heart disease with heart failure; I25.10 Atherosclerotic heart disease of native coronary artery without angina pectoris; I25.2 Old myocardial infarction; I25.5 Ischemic cardiomyopathy; I48.0 Paroxysmal atrial fibrillation; K43.2 Incisional hernia without obstruction or gangrene; Z16.12 Extended spectrum beta lactamase (ESBL) resistance; Z51.5 Encounter for palliative care; Z66 Do not resuscitate; Z79.01 Long term (current) use of anticoagulants; Z79.890 Hormone replacement therapy; Z79.899 Other long term (current) drug therapy; Z80.1 Family history of malignant neoplasm of trachea, bronchus and lung; Z80.3 Family history of malignant neoplasm of breast; Z82.49 Family history of ischemic heart disease and other diseases of the circulatory system; Z83.3 Family history of diabetes mellitus; Z85.828 Personal history of other malignant neoplasm of skin; Z87.01 Personal history of pneumonia (recurrent); Z87.891 Personal history of nicotine dependence; Z95.1 Presence of aortocoronary bypass graft; Z95.5 Presence of coronary angioplasty implant and graft; Z96.641 Presence of right artificial hip joint; Z99.2 Dependence on renal dialysis; Y83.9 Surgical procedure, unspecified as the cause of abnormal reaction of the patient, or of later complication, without mention of misadventure at the time of the procedure; Z85.07 Personal history of malignant neoplasm of pancreas; F14.11 Cocaine abuse, in remission; F12.11 Cannabis abuse, in remission; Z82.61 Family history of arthritis; Z83.79 Family history of other diseases of the digestive system; Z90.49 Acquired absence of other specified parts of digestive tract; G89.29 Other chronic pain; M54.9 Dorsalgia, unspecified
CPT/HCPCS: 36415; 36600; 71045; 71046; 74018; 74019; 74022; 74176; 74177; 80048; 80053; 80202; 81001; 81003; 82150; 82330; 82805; 82947; 83605; 83690; 83735; 84100; 84478; 84484; 85025; 85027; 85384; 85610; 85730; 86704; 86706; 86850; 86900; 86901; 86920; 87040; 87070; 87075; 87077; 87186; 87205; 87340; 88307; 90935; 93005; 93306; 94002; 94003; 94640; 94760; 96361; 96374; 96375; 99285

== ENCOUNTER 2019-03-09 14:59 | Inpatient (IN) | payer MEDICAID ==
[2019-03-09] MEDS ORDERED: LORazepam 2 MG/ML INJ IV PRN (15:04)
[2019-03-09] MEDS ORDERED: ACETAMINOPHEN SUPPOSITORY 650 MG SUPP RECTAL PRN (15:04)
[2019-03-09] MEDS ORDERED: ATROPINE OPHTH SOLN 1% 5ML BTL SUBLINGUAL PRN (15:04)
[2019-03-09] MEDS ORDERED: ONDANSETRON 4 MG/2 ML VIAL IVP PRN (15:04)
[2019-03-09] MEDS ORDERED: SCOPOLAMINE 1.5MG/72HR PATCH TRANSDERM SCH (15:15)
[2019-03-09] MEDS ORDERED: MORPHINE SULFATE (100 MG/2 ML) 100 MG in SODIUM CHLORIDE 0.9% 100 ML IV SCH (15:15)
[2019-03-09] MEDS ORDERED: MORPHINE SULFATE 4 MG/ML SYRINGE IVP PRN (15:42)
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
[2019-03-09 16:25] VITALS: BP 0/0; PULSE 0; RESP 0
--- NOTE | 2019-03-09 20:25 | P.DS ---
Providers Date of admission: 03/09/19 15:14 Expected date of discharge: 03/09/19 Attending physician: Maggie Patel DO Primary care physician: Aury Srivastava MD Hospital Course: Discharge Diagnosis: ESBL E. coli Aspiration pneumonia with septic shock and multisystem organ failure ARDS Acute hypoxic respiratory failure E. coli intra-abdominal infection Acute renal failure secondary to ATN due to septic shock Hyperphosphatemia Shock liver Anion gap metabolic acidosis Normocytic anemia and thrombocytopenia Acute toxic encephalopathy A. fib with RVR Lactic acidosis Elevated troponin secondary to type II non-STEMI Small bowel obstruction status post surgical intervention Diabetes mellitus type 2 with hyperglycemia Adrenal insufficiency SERENE COPD without exacerbation Dyslipidemia Decompensated systolic congestive heart failure with ejection fraction 45-50% Hypothyroidism Coronary artery disease Neuropathy Chronic anemia History of pancreatic endocrine tumor Hypertension Recent group B strep bacteremia Hospital Course: Patient is a 58-year-old male past medical history of diabetes mellitus type 2 insulin requiring, hypertension, dyslipidemia, systolic congestive heart failure with last known ejection fraction 45-50%, and adrenal insufficiency requiring twice daily Cortef who initially presented to the emergency department on 02/23 with complaints of abdominal pain. He was subsequently admitted after a computed tomography scan showed a partial small bowel obstruction with concerns for adhesions. He was started on IV fluids, made nothing by mouth, and had a nasogastric tube placed. He had recently been hospitalized from 02-09 for group B strep bacteremia. Has small bowel obstruction failed conservative management and on 02/27 he underwent an exploratory laparotomy with repair of incisional hernia, partial omentectomy, lysis of adhesions, right colectomy, and small bowel resection. Initially he had responded well to surgery. His NG tube had been discontinued and he was tolerating a diet. He had been up and walking in the hallways. On the morning of 03/06 he was noted to have an acute increase in his white blood cell count of 33. After much investigation he was finally found to have aspiration pneumonia with septic shock and ultimately multisystem organ dysfunction. During that process he was taken back to surgery to ensure that he had not had a perforation. On surgery he was noted to have a seroma but bowel appeared grossly intact. In the ICU he developed ARDS, he was requirin multiple vasopressor drips. He went into A. fib with RVR and initially was placed on amiodarone drip. However he developed shock liver and amiodarone could no longer be used. He was transitioned to a Cardizem drip. After 3 days of aggressive management including dialysis for acute renal failure and refractory acidosis it was determined that there was no considerable hope for recovery. Family was in agreement with transition to hospice care. He was maintained on comfort mendications and his vasopressive agents were stopped. He was then taken off the ventilator and subsequently . A total of 20 minutes of time were spent preparing this complex discharge summary . Plan - Discharge Summary New Discharge Prescriptions: No Action Levothyroxine Sodium [Synthroid] 50 mcg PO HS Omeprazole [PriLOSEC] 20 mg PO BID Nitroglycerin Sl Tabs [Nitrostat] 0.4 mg SUBLINGUAL Q5M PRN PRN Reason: Chest Pain amLODIPine [Norvasc] 5 mg PO HS Gabapentin [Neurontin] 800 mg PO QID Montelukast [Singulair] 10 mg PO HS #30 tab Insulin Aspart [NovoLOG Flexpen] See Protocol SQ ACHS DULoxetine HCL [Cymbalta] 30 mg PO BID Apixaban [Eliquis] 5 mg PO BID #60 tab Metoprolol Tartrate [Lopressor] 25 mg PO BID #60 tab Loratadine [Claritin] 10 mg PO DAILY #30 tab Furosemide [Lasix] 40 mg PO DAILY #30 tab Hydrocortisone 5 mg PO HS Hydrocortisone 10 mg PO AC-BRKFST Insulin Aspart [NovoLOG Flexpen] 12 units SQ AC-BID@1200,1700 Insulin Aspart [NovoLOG Flexpen] 14 units SQ AC-BRKFST Pioglitazone [Actos] 15 mg PO AC-LUNCH Simvastatin 80 mg PO HS Albuterol Inhaler [Ventolin Hfa Inhaler] 2 puff INHALATION RT-QID PRN PRN Reason: Shortness Of Breath Artificial Tears-Hypromellose [Artificial Tear Drops] 1 drops BOTH EYES QID Buprenorphine [Butrans 10 MCG/HOUR] 1 patch TRANSDERM Q7D Fluconazole [Diflucan] 200 mg PO DAILY Insulin Glargine,Hum.rec.anlog [Lantus Solostar] 30 unit SQ BID Ipratropium-Albuterol Nebulize [Duoneb 0.5 mg-3 mg/3 ml Soln] 3 ml INHALATION RT-QID Lisinopril [Zestril] 5 mg PO DAILY Multivitamins, Thera [Multivitamin (formulary)] 1 tab PO AC-LUNCH valACYclovir HCL [Valacyclovir] 1,000 mg PO BID Vitamin B Complex 1 cap PO AC-LUNCH cefTRIAXone [Rocephin] 2 gm IVPB Q24H #14 bag Discharge Medication List Levothyroxine Sodium [Synthroid] 50 mcg PO HS 02/01/14 [History] Nitroglycerin Sl Tabs [Nitrostat] 0.4 mg SUBLINGUAL Q5M PRN 02/01/14 [History] Omeprazole [PriLOSEC] 20 mg PO BID 02/01/14 [History] Gabapentin [Neurontin] 800 mg PO QID 05/13/15 [History] amLODIPine [Norvasc] 5 mg PO HS 05/13/15 [History] Montelukast [Singulair] 10 mg PO HS #30 tab 11/21/16 [Rx] Insulin Aspart [NovoLOG Flexpen] See Protocol SQ ACHS 02/10/17 [History] DULoxetine HCL [Cymbalta] 30 mg PO BID 09/25/17 [History] Apixaban [Eliquis] 5 mg PO BID #60 tab 02/13/18 [Rx] Metoprolol Tartrate [Lopressor] 25 mg PO BID #60 tab 02/13/18 [Rx] Loratadine [Claritin] 10 mg PO DAILY #30 tab 05/05/18 [Rx] Furosemide [Lasix] 40 mg PO DAILY #30 tab 07/07/18 [Rx] Hydrocortisone 5 mg PO HS 10/24/18 [History] Hydrocortisone 10 mg PO AC-BRKFST 10/24/18 [History] Insulin Aspart [NovoLOG Flexpen] 12 units SQ AC-BID@1200,1700 10/24/18 [History] Insulin Aspart [NovoLOG Flexpen] 14 units SQ AC-BRKFST 10/24/18 [History] Pioglitazone [Actos] 15 mg PO AC-LUNCH 10/24/18 [History] Simvastatin 80 mg PO HS 10/24/18 [History] Albuterol Inhaler [Ventolin Hfa Inhaler] 2 puff INHALATION RT-QID PRN 02/09/19 [History] Artificial Tears-Hypromellose [Artificial Tear Drops] 1 drops BOTH EYES QID 02/09/19 [History] Buprenorphine [Butrans 10 MCG/HOUR] 1 patch TRANSDERM Q7D 02/09/19 [History] Fluconazole [Diflucan] 200 mg PO DAILY 02/09/19 [History] Insulin Glargine,Hum.rec.anlog [Lantus Solostar] 30 unit SQ BID 02/09/19 [History] Ipratropium-Albuterol Nebulize [Duoneb 0.5 mg-3 mg/3 ml Soln] 3 ml INHALATION RT-QID 02/09/19 [History] Lisinopril [Zestril] 5 mg PO DAILY 02/09/19 [History] Multivitamins, Thera [Multivitamin (formulary)] 1 tab PO AC-LUNCH 02/09/19 [History] Vitamin B Complex 1 cap PO AC-LUNCH 02/09/19 [History] valACYclovir HCL [Valacyclovir] 1,000 mg PO BID 02/09/19 [History] cefTRIAXone [Rocephin] 2 gm IVPB Q24H #14 bag 02/12/19 [Rx] Discharge Disposition: - Preliminary Cause of Preliminary Cause of : aspiration pneumonia
== END 2019-03-09 16:12 | disposition expired | DRG 951 ==
LOC: 2SICU 15:14
PROVIDERS: ADMIT Internal Medicine; ATTEND Internal Medicine
PROC: 5A1935Z Respiratory Ventilation, Less than 24 Consecutive Hours (ICD-10-PCS; principal; 2019-03-09)
DX: Z51.5 Encounter for palliative care (principal); J96.01 Acute respiratory failure with hypoxia; N17.0 Acute kidney failure with tubular necrosis; K72.00 Acute and subacute hepatic failure without coma; I21.A1 Myocardial infarction type 2; J69.0 Pneumonitis due to inhalation of food and vomit; G92 Toxic encephalopathy; I50.23 Acute on chronic systolic (congestive) heart failure; R65.21 Severe sepsis with septic shock; A41.9 Sepsis, unspecified organism; E87.2 Acidosis; E27.40 Unspecified adrenocortical insufficiency; I42.9 Cardiomyopathy, unspecified; K91.872 Postprocedural seroma of a digestive system organ or structure following a digestive system procedure; Z66 Do not resuscitate; D69.6 Thrombocytopenia, unspecified; E11.40 Type 2 diabetes mellitus with diabetic neuropathy, unspecified; I11.0 Hypertensive heart disease with heart failure; E11.65 Type 2 diabetes mellitus with hyperglycemia; E83.39 Other disorders of phosphorus metabolism; J44.9 Chronic obstructive pulmonary disease, unspecified; B96.20 Unspecified Escherichia coli [E. coli] as the cause of diseases classified elsewhere; Z16.12 Extended spectrum beta lactamase (ESBL) resistance; G47.33 Obstructive sleep apnea (adult) (pediatric); E03.9 Hypothyroidism, unspecified; E78.5 Hyperlipidemia, unspecified; I25.10 Atherosclerotic heart disease of native coronary artery without angina pectoris; I48.91 Unspecified atrial fibrillation; D50.9 Iron deficiency anemia, unspecified; G89.29 Other chronic pain; M54.9 Dorsalgia, unspecified; H93.13 Tinnitus, bilateral; I25.2 Old myocardial infarction; Z99.81 Dependence on supplemental oxygen; Z79.01 Long term (current) use of anticoagulants; Z79.890 Hormone replacement therapy; Z79.4 Long term (current) use of insulin; Z79.899 Other long term (current) drug therapy; Z85.07 Personal history of malignant neoplasm of pancreas; Z98.890 Other specified postprocedural states; Z90.49 Acquired absence of other specified parts of digestive tract; Z99.89 Dependence on other enabling machines and devices; Z87.39 Personal history of other diseases of the musculoskeletal system and connective tissue; Z86.19 Personal history of other infectious and parasitic diseases; Z86.14 Personal history of Methicillin resistant Staphylococcus aureus infection; Z95.1 Presence of aortocoronary bypass graft; Z95.5 Presence of coronary angioplasty implant and graft; Z96.641 Presence of right artificial hip joint; Z87.891 Personal history of nicotine dependence; Z82.49 Family history of ischemic heart disease and other diseases of the circulatory system; Z80.3 Family history of malignant neoplasm of breast; Z85.828 Personal history of other malignant neoplasm of skin; Z88.5 Allergy status to narcotic agent; Z88.8 Allergy status to other drugs, medicaments and biological substances; Z80.1 Family history of malignant neoplasm of trachea, bronchus and lung; Z83.3 Family history of diabetes mellitus; Z82.61 Family history of arthritis; Z83.79 Family history of other diseases of the digestive system; Z83.6 Family history of other diseases of the respiratory system